=== PATIENT | male | born 1965 | race Caucasian/White ===

== ENCOUNTER 2017-10-20 10:24 | Inpatient (IN) | payer MEDICAID, SELFPAY ==
[2017-10-20] VITALS (46 sets, daily range): BP systolic 104–149; BP diastolic 63–106; PULSE 61–105; RESP 12–30; TEMP 35.3–37.7; O2SAT 90–96
[2017-10-20 10:55] LABS: Bilirubin Negative (Negative); Blood Trace-intact (Negative); Clarity Clear; Glucose 500 mg/dL (Negative); Ketones 15 mg/dL (Negative); Leukocyte Esterase Negative (Negative); Nitrite Negative (Negative); Urobilinogen 0.2 EU/dL (Up TO 0.2)
[2017-10-20 11:06] LABS: Bacteria Negative HPF (Negative); C & S Indicated? No; Casts Negative LPF (Negative); Crystals Negative HPF (Negative); Epithelial Cells Negative HPF (Negative); Mucus Negative (Negative); RBC 0-2 (0-2); WBC Negative HPF (0-5)
[2017-10-20] MEDS: Normal Saline 1,000 ML 150 ML IV (11:21)
--- NOTE | 2017-10-20 11:25 | ED.GENADUL ---
Disposition <Rohan Liao - Last Filed: 10/20/17 11:28> <Kathrin Velazquez - Last Filed: 10/20/17 19:04> Clinical Impression: Diabetes, Hyponatremia, Community acquired pneumonia, Thrush Disposition: [facility] INPATIENT Condition: Serious Medical Decision Making - Lab Data Laboratory Tests 10/20/17 10:45 Urine Color Yellow Urine Clarity Clear Urine pH 6.0 Ur Specific Dickens 1.010 Urine Protein Negative Urine Ketones 15 H Urine Blood Trace-intact H Urine Nitrite Negative Urine Bilirubin Negative Urine Urobilinogen 0.2 Ur Leukocyte Esterase Negative Urine RBC 0-2 Urine WBC Negative Ur Epithelial Cells Negative Urine Crystals Negative Urine Bacteria Negative Urine Casts Negative Urine Mucus Negative Ur Culture Indicated? No Urine Glucose 500 H - EKG Data -: EKG Interpreted by Mo EKG shows normal: sinus rhythm, axis, intervals, QRS complexes, ST-T waves 10/20/17 11:28 Time 10: 38 Rate 90, sinus rhythm, no ST elevations or depressions, no T-wave inversions. No Q waves. Normal EKG. <Rohan Liao - Last Filed: 10/20/17 11:28> - Lab Data Laboratory Tests 10/20/17 10:45 Urine Color Yellow Urine Clarity Clear Urine pH 6.0 Ur Specific Dickens 1.010 Urine Protein Negative Urine Ketones 15 H Urine Blood Trace-intact H Urine Nitrite Negative Urine Bilirubin Negative Urine Urobilinogen 0.2 Ur Leukocyte Esterase Negative Urine RBC 0-2 Urine WBC Negative Ur Epithelial Cells Negative Urine Crystals Negative Urine Bacteria Negative Urine Casts Negative Urine Mucus Negative Ur Culture Indicated? No Urine Glucose 500 H Laboratory Tests 10/20/17 10/20/17 10/20/17 10:45 12:03 12:03 WBC 19.89 H RBC 4.26 L Hgb 12.7 L Hct 37.3 L MCV 87.6 MCH 29.8 MCHC 34.0 RDW 12.7 Plt Count 338 MPV 10.5 Immature Gran % See Differential Neutrophils % 86.0 Lymphocytes % 8.0 Monocytes % 3.0 Eosinophils % 0.0 Basophils % 0.0 Absolute Neutrophils 17.30 H Band Neutrophils 1.0 Absolute Lymphocytes 1.79 Absolute Monocytes 0.60 Absolute Eosinophils 0.00 Absolute Basophils 0.00 Metamyelocytes 1.0 Differential Comment Manual differential Atypical Lymphocytes 1 RBC Morphology See below Polychromasia Present D-Dimer Sodium 124 L* Potassium 4.8 Chloride 90 L Carbon Dioxide 27.4 Anion Gap 6.6 BUN 22 H Creatinine 0.97 Estimated GFR/1.73 m2 >= 60.00 Glucose 520 H* Lactate Calcium 9.1 Magnesium 2.0 Total Bilirubin 0.4 AST 29 ALT 20 Alkaline Phosphatase 124 H Troponin I < 0.02 NT-Pro-B Natriuret Pep Total Protein 7.0 Albumin 1.7 L Lipase 118 Urine Color Yellow Urine Clarity Clear Urine pH 6.0 Ur Specific Dickens 1.010 Urine Protein Negative Urine Ketones 15 H Urine Blood Trace-intact H Urine Nitrite Negative Urine Bilirubin Negative Urine Urobilinogen 0.2 Ur Leukocyte Esterase Negative Urine RBC 0-2 Urine WBC Negative Ur Epithelial Cells Negative Urine Crystals Negative Urine Bacteria Negative Urine Casts Negative Urine Mucus Negative Ur Culture Indicated? No Urine Glucose 500 H 10/20/17 10/20/17 10/20/17 12:03 12:03 12:03 WBC RBC Hgb Hct MCV MCH MCHC RDW Plt Count MPV Immature Gran % Neutrophils % Lymphocytes % Monocytes % Eosinophils % Basophils % Absolute Neutrophils Band Neutrophils Absolute Lymphocytes Absolute Monocytes Absolute Eosinophils Absolute Basophils Metamyelocytes Differential Comment Atypical Lymphocytes RBC Morphology Polychromasia D-Dimer 1000 H Sodium Potassium Chloride Carbon Dioxide Anion Gap BUN Creatinine Estimated GFR/1.73 m2 Glucose Lactate 2.1 H Calcium Magnesium Total Bilirubin AST ALT Alkaline Phosphatase Troponin I NT-Pro-B Natriuret Pep 241 Total Protein Albumin Lipase Urine Color Urine Clarity Urine pH Ur Specific Dickens Urine Protein Urine Ketones Urine Blood Urine Nitrite Urine Bilirubin Urine Urobilinogen Ur Leukocyte Esterase Urine RBC Urine WBC Ur Epithelial Cells Urine Crystals Urine Bacteria Urine Casts Urine Mucus Ur Culture Indicated? Urine Glucose Results reviewed for labs ordered during visit: Yes - Medical Decision Making Patient presents today with a multitude of complaints. On exam, he is noted to have intraoral thrush. Patient and his had not noted this. He denies any history of HIV. Patient does have history of hepatitis C. Reports that he has had cough and increased shortness of breath. Is also endorsing right-sided chest pain. Chest pain is not reproducible on exam. He does have crackles in the right lower lobe. I am concerned for possible pneumonia. Will obtain chest x-ray. Patient's exam is also notable for bilateral lower extremity edema. Patient has been using cocaine recently. States that he is using clean needles that my dealer gives me and I unwrap myself. Patient reports that he has been febrile for the last week plus. He is currently afebrile. Noted to be slightly tachycardic with a heart rate of 92. Appears nontoxic. Does appear slightly anxious. Given the chest pain, IV drug use and concern for possible cardiac source such as endocarditis. The patient's intraoral thrush, I will obtain HIV status and include a CD4 count. Will obtain baseline labs to include CBC, CMP, troponin, BNP. Will hydrate the patient but I would like to do this slowly as I am concerned, given the crackles and bilateral lower extremity edema, that he may have developed CHF as well and do not want to fluid overload patient. EKG was reviewed by Dr. Liao. Advise no acute abnormalities, no findings of ischemia. Laboratory results are somewhat delayed. With the patient being a history of IV drug user, they had difficulty drawing tubes. We were contacted by lab with critical value of glucose of 520. Sodium is 124. BUN is slightly elevated at 22. Kidney function otherwise within normal limits. AST and ALT are within normal limits. I did review these and they have been historically within normal limits. Chest x-ray reviewed by myself as well as the radiologist, noted a right lower lobe infiltrate. Advised repeat chest x-ray in 1 month to ensure its clearance after treatment. CBC concerning for a white cell count of 19.89, neutrophil of 17. Platelets are normal. D-dimer is elevated at thousand. Urinalysis significant for 500 glucose and 15 ketones. BNP is normal, we will increase the patient's fluid rates and bolus him at this time. Potassium is 4.8. Patient be given 15 units subcu heparin. The elevated d-dimer, we will obtain CT. I feel that this will also better evaluate the infiltrate in the right lower lobe as there is concern this being possibly fungal or atypical with the patient's history. Contacted by radiologist regarding CT. Advise no acute pulmonary embolism is noted. Extensive infiltrate is known the right lower lobe, again he advises repeat imaging. Advised he cannot rule out mass secondary to this large infiltrate. He did advise it is limited to one lobe. No findings to suggest a fungal source. Will obtain sputum culture Patient had a bowel movement while here, this is collected by nursing staff. Stool is noted to be liquidy and light-colored. I will send this for stool testing. Patient begun on azithromycin and Rocephin. Patient given nystatin for intraoral thrush. Consulted with hospitalist, Dr. bowman. We discussed the patient's history, exam findings and diagnoses. We discussed patient's laboratory evaluations. Patient diagnosed with pneumonia, rash, new onset diabetes, hyponatremia. He agrees to admission. I discussed this plan with the patient was in agreement. He asked that I placed holding orders, plans to evaluate the patient in the department. <Kathrin Velazquez - Last Filed: 10/20/17 19:04> History of Present Illness <Rohan Liao - Last Filed: 10/20/17 11:28> - General Source: patient, family, RN notes reviewed Mode of arrival: ambulatory Limitations: no limitations - History of Present Illness Initial comments: Patient is a 52-year-old male, accompanied by his , with a multitude of complaints. Patient has history of hepatitis C and hypertension. Patient is an active intravenous drug user. Last used a few days ago. Has been injecting cocaine. Reports that for the past 8-10days he has been feeling quite poorly. He endorses malaise, right-sided pleuritic chest pain, fevers, foul-smelling urine, yellow and foul-smelling stools, bilateral lower extremity swelling. Patient reports that his been feeling toxic and feels that his breath, urine and stool are toxic smelling. Patient reports he has chronic shortness of breath associated with COPD diagnosis but this is also been increased. Feel that he has been having noisy breathing. Patient reports that he is being evaluated by his primary care for concern for [place], has not his sleep study. States that he has had low-grade intermittent headache, none currently. Has been having exertional fatigue is primarily laying low. is concerned that he has not been acting like himself. She associates this with his recent relapse to drug use. States that he stop daily use approximately 2 weeks ago. Prior to that, he was injecting cocaine 2-3 times daily the 2-3 months prior to that. reports that he has been active with the [facility] historically and that he typically does very well when working with them however, patient has not wanted to be part of the program in some time. <Kathrin Velazquez - Last Filed: 10/20/17 19:04> - General Chief complaint: Fever Stated complaint: SWOLLEN FEET,TOXIC TASTE,DISORIENTED Time Seen by Provider: 10/20/17 10:50 - Related Data Albuterol [Ventolin Hfa] 2 puff IH Q2H PRN PRN #1 inh 12/04/16 Buprenorphine HCl/Naloxone HCl [Suboxone 4 mg-1 mg Sl Film] 1 each PO DAILY 10/20/17 Losartan [Cozaar] 100 mg PO QAM 10/20/17 Allergies Allergy/AdvReac Type Severity Reaction Status Date / Time Penicillins Allergy Severe Vomiting Unverified 10/20/17 10:39 hydrocodone AdvReac Intermediate vomiting Unverified 10/20/17 10:39 Review of Systems Constitutional: see HPI, chills, fever, malaise, weakness (Generalized) Eyes: denies: eye discharge, vision change ENT: as per HPI (Foul-smelling breath). denies: ear pain, throat pain, dental pain, congestion Respiratory: see HPI, cough, shortness of breath Cardiovascular: as per HPI, chest pain, dyspnea on exertion. denies: palpitations Gastrointestinal: as per HPI, nausea, diarrhea (Soft stools). denies: abdominal pain, vomiting Genitourinary: as per HPI. denies: urgency, dysuria, frequency Musculoskeletal: denies: back pain Skin: denies: rash, lesions Neurological: as per HPI <Kathrin Velazquez - Last Filed: 10/20/17 19:04> Past Medical History - Past Medical History Medical history: GERD, hypertension Hepatitis C Surgical history: other (Lumbar discectomy) - Social History Alcohol use: occasionally Drug use: marijuana Living Situation: lives with family <Kathrin Velazquez - Last Filed: 10/20/17 19:04> General Exam - General Limitations: no limitations General appearance: alert, in no apparent distress - Head Head exam: Present: atraumatic - Eye Eye exam: Present: normal apperance, PERRL, EOMI. Absent: scleral icterus, conjunctival injection - ENT ENT exam: Present: mucous membranes dry. Absent: normal orophraynx ([place] notable for thrush both on the tongue and on the roof the mouth) - Neck Neck exam: Present: normal inspection. Absent: tenderness, lymphadenopathy - Respiratory Respiratory exam: Present: rales (Patient is crackles in the right lower lobe). Absent: normal lung sounds bilaterally, respiratory distress, wheezes, chest wall tenderness, accessory muscle use - Cardiovascular Cardiovascular Exam: Present: regular rate, normal rhythm, normal heart sounds. Absent: systolic murmur, diastolic murmur - GI/Abdominal GI/Abdominal exam: Present: soft, distended, normal bowel sounds. Absent: tenderness, guarding, rebound, rigid, organomegaly, mass - Rectal Rectal exam: Present: deferred - Extremities Exam Extremities exam: Present: pedal edema (2+ bilateral pedal edema, edema extends into the feet). Absent: normal inspection, tenderness, calf tenderness - Back Exam Back exam: Present: normal inspection. Absent: CVA tenderness (R), CVA tenderness (L) - Neurological Exam Neurological exam: Present: alert - Psychiatric Psychiatric exam: Present: depressed, flat affect - Skin Skin exam: Present: warm, dry, normal color <PibbhupinderKathrin - Last Filed: 10/20/17 19:04> Course Vital Signs - 24 hr 10/20/17 10/20/17 10/20/17 10:30 10:31 10:33 Temperature 36.7 C Pulse 92 H 92 H Respiratory 16 19 Rate Blood Pressure 121/67 121/67 Pulse Oximetry 95 95 95 10/20/17 10/20/17 10/20/17 10:40 10:45 10:50 Temperature Pulse 92 H Respiratory 28 H 17 17 Rate Blood Pressure 128/70 Pulse Oximetry 93 L 93 L 10/20/17 10/20/17 10/20/17 11:00 11:01 11:10 Temperature Pulse 93 H Respiratory 21 22 Rate Blood Pressure 128/80 Pulse Oximetry 93 L 95 94 L 10/20/17 10/20/17 11:16 11:20 Temperature Pulse 96 H Respiratory 23 30 H Rate Blood Pressure 132/74 Pulse Oximetry 93 L 93 L <Rohan Liao R - Last Filed: 10/20/17 11:28> Vital Signs - 24 hr 10/20/17 10:33 Temperature 36.7 C Pulse 92 H Respiratory 19 Rate Blood Pressure 121/67 Pulse Oximetry 95 <MarcusKathrin - Last Filed: 10/20/17 19:04>
[2017-10-20 12:13] LABS: Lactate-non-spesis 2.1 mmol/L (0.6-1.4)
[2017-10-20 12:15] LABS: HCT 37.3 % (40.0-50.0); HGB 12.7 g/dL (13.5-17.5); Mean Corpuscular Hemoglobin 29.8 pg (27.0-33.0); Mean Corpuscular Volume 87.6 fL (80-95); Mean Platelet Volume 10.5 fL (8.0-11.0); Platelet Count 338 x1000/uL (130-400); RBC 4.26 m/cumm (4.50-6.00); RBC Distribution Width 12.7 % (11.8-14.1); White Blood Cell Count 19.89 k/cumm (4.4-10.8)
--- NOTE | 2017-10-20 12:20 | DI.REPORT_ITS ---
SYMPTOMS/DIAGNOSIS: SHORTNESS OF BREATH, CHEST PAIN PA AND LATERAL CHEST: Comparison is 01/09/17. The heart size and pulmonary vasculature are within normal limits. There is an infiltrate seen in the right lower lobe with more focal consolidation seen in the right lower lobe medially. The lungs are otherwise clear. No effusions or pneumothoraces are identified. The bones appear intact. IMPRESSION: Right lower lobe opacity suspicious for pneumonia. A follow up chest x-ray is recommended after treatment to document complete resolution of the infiltrate.
[2017-10-20 12:31] LABS: ALT 20 U/L (12-78); AST 29 U/L (15-37); Albumin 1.7 g/dL (3.4-5.0); Alkaline Phosphatase 124 U/L (46-116); Anion Gap 6.6 mmol/L (3-11); BUN 22 mg/dL (7-18); Bilirubin, Total 0.4 mg/dL (0.2-1.0); CO2 27.4 mmol/L (21.0-32.0); CREATININE 0.97 mg/dL (0.70-1.30); Calcium 9.1 mg/dL (8.5-10.1); Chloride 90 mmol/L (98-107); Lipase 118 U/L (73-393); Potassium 4.8 mmol/L (3.5-5.1)
[2017-10-20 12:35] LABS: Troponin I < 0.02 ng/mL (0.00-0.06)
[2017-10-20 12:36] LABS: Glucose 520 mg/dL (70-100)
[2017-10-20 12:37] LABS: Sodium 124 mmol/L (136-145)
[2017-10-20 12:38] LABS: NT-proBNP 241 pg/mL
[2017-10-20 12:46] LABS: D-Dimer 1000 ng/mlFEU (<500)
[2017-10-20 12:47] LABS: Absolute Lymphocyte Count 1.79 k/cumm (1.2-3.4); Atypical Lymphocytes % 1; Diff Comment Manual Differential
[2017-10-20 12:48] LABS: Polychromasia Present
[2017-10-20] MEDS: Normal Saline 1,000 ML 1000 ML IV ×2 (12:48→13:55)
--- NOTE | 2017-10-20 12:53 | DI.RPTCT_ITS ---
SYMPTOMS/DIAGNOSIS: ELEVATED D-DIMER, SHORTNESS OF BREATH, SWOLLEN FEET, TOXIC TASTE CT SCAN OF THE CHEST: CT angiography was performed with multi slice acquisition and multi planar and 3D reconstruction. CT scan of the chest was performed according to the pulmonary embolus protocol. There is no evidence of a pulmonary embolus. The thoracic aorta is of normal caliber. No evidence of aneurysm or dissection is seen. The heart size is within normal limits. No significant pericardial effusion is present. No findings to suggest right ventricular dysfunction are present. There are airspace opacities involving the right lung with areas of consolidation noted, particularly in the lower lobe and medially. There is loss of volume of the right lower lobe noted. There also appears to be a small fluid collection along the posterior and lateral wall, which may be loculated. It measures 1.4 cm in thickness. The lungs are otherwise clear. No pneumothorax is identified. No evidence of a left pleural effusion is seen. The bones appear grossly unremarkable. The upper abdominal images show calcifications in the liver and spleen consistent with prior granulomatous disease. There is a cyst in the right lobe of the liver. This was present on an ultrasound of the abdomen from 02/09/15. There are mildly enlarged lymph nodes in the mediastinum, which may be reactive. Degenerative changes are seen in the spine. IMPRESSION: 1. Airspace opacity in the right lower lobe with areas of consolidation and volume loss. The findings are suspicious for an infectious or inflammatory process. A follow-up CT scan of the chest is recommended in this patient to document complete resolution of the infiltrate. 2. Small left pleural effusion, which may in part be loculated. 3. No evidence of a pulmonary embolus, thoracic aorta, dissection or aneurysm. The findings were discussed with Kathrin Velazquez of the Emergency Department on the date of the examination.
[2017-10-20] MEDS: Insulin REGULAR-Human 100 UNITS/ML UNIT 15 UNITS SC (13:02)
[2017-10-20] MEDS: Omnipaque 350 MG/ML 100 ML BTL IJ (13:57)
--- NOTE | 2017-10-20 14:09 | PDOC.ERCMPRO ---
Care Management Progress Note 10/20-Met with Mio's while Mio was in DI. Arline states that Mio has been shooting up cocaine, drinking, and flirting with other woman. She states she is really tired of it. Throughout our conversation she cried and was visibly upset. Here in the ED he is found to be a new diabetic. CHIKI Pinon states that patient will need to be admitted. While here, Mio will need to be seen by the nutrition educator and have some outpatient diabetic education appointments scheduled. At this time, Mio is still being seen in the ED and results are pending. Discussed the above with Wendy JACQUES, Inpatient Care Management.
--- NOTE | 2017-10-20 14:12 | CMPROGNOTE_ITS ---
Care Management Progress Note 10/20-Met with Mio's while Mio was in DI. Arline states that Mio has been shooting up cocaine, drinking, and flirting with other woman. She states she is really tired of it. Throughout our conversation she cried and was visibly upset. Here in the ED he is found to be a new diabetic. CHIKI iPnon states that patient will need to be admitted. While here, Mio will need to be seen by the winder operator and have some outpatient diabetic education appointments scheduled. At this time, Mio is still being seen in the ED and results are pending. Discussed the above with Wendy JACQUES, Inpatient Care Management.
[2017-10-20] MEDS: AZITHROMYCIN 500 MG in Normal Saline 250 ML 250 MG IVPB (14:27)
[2017-10-20] MEDS: Lactated Ringers 1,000 ML 150 ML IV ×2 (14:43→22:58)
--- NOTE | 2017-10-20 18:06 | PDOC.HP_ITS ---
Date of Service: 10/20/17 Time of Service: 18:01 Assessment/Plan - Assessment/Plan (1) Community acquired pneumonia Assessment: Symptoms, chest XR, and imaging all confirm lobar pneumonia in RLL. Patient has been started on ceftriaxone and azithromycin. Has documented PCN allergy but tolerting this well so will continue. I agree with HIV screen and legionella antigen given history and presentation with severe lobar pneumonia. Blood and sputum cultures also pending Given diffuse wheezing, history including smoking, will also treat with steroids and bronchodilators (2) Diabetes mellitus Assessment: New diagnosis DM based on profound hyperglycemia and symptoms. I will start with 0.2U/kg of basal insulin and low dose sliding scale, monitor glucose. Add c-peptide to confirm likely type 2, could also get anti-ROGERIO Ab if questionable, but c-peptide more urgent. He presented dehydrated, but not c/w DKA or HONK. His mental status has normalized with hydration. DSME consult for teaching. Will consider oral medication upon discharge. A1c, lipids, and microalbumin ordered with morning labs. (3) Opioid dependence on agonist therapy Assessment: Has been stable per history, will continue his relatively low dose of buprenorhpine/naloxone for maintenance. (4) Hypertension Assessment: Continue losartan 100mg, which is also good for renal protection with DM. Consider adding back diuretic if BPs are high. New edema raises concern for CHF but imagine and BNaP not c/w CHF. Troponin and EKG not c/w ACS (5) Smoker Assessment: Contemplative, has stopped this week. Will treat with patch. LMWH for DVT prophylaxis Pt is stable on medical floor, FULL CODE History of Present Illness - History of Present Illness Chief Complaint: sob, malaise History of Present Illness: 52 yo M with h/o opioid dependance on Suboxone and hypertension who has been have progressive fatigue, SOB, cough, and urinary frequency over the past 2+ weeks. He states he hasn't quite been himself for the past 2-3 month, feeling run down and missing more work. For the the past 2 weeks has had more cough with right sided pleuritic pain. Pain sharp, radiates laterally along ribs. He has felt feverish, up to 101 at home in the past few days. Cough productive at times, with SOB that does respond to his albuterol inhaler. He has also noted persistent hiccups. Finally he came in because his noticed this morning that he was talking in a way that didn't make sense in the conversation. He feels like he has been out of it. SHx: lives with Rekha and 10 yo son in [place], has older daughter as well. 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 1ppd smoker for many years, cut back to 1/2 PPD this year, no smoking x 1 week Former heavy drinker, no EtOH in months. Remove IVDU, no recent street drug use. PMH: HTN GERD Smoker Chronic back pain Opioid dependance on suboxone Chronic hepatitis C PSHX: Back surgery 1991 All: Pencillin hydrocodone lisinopril, malaise MEDS: losartan 100mg po daily Proair albuterol inhaler prn Suboxone 4mg/1mg film SL daily FHx: Mother has DM Father of heart disease in 50s - Past Medical History Cardiac: HTN Pulmonary: Bronchitis (PCP suspects COPD, but PFTs haven't been done yet) Gastrointestinal: GERD Hepatobiliary: Hep A/B/C (Heptatitis C). denies: Cirrhosis Psych: Addictions (opioids, smoking. h/o alcohol abuse) Review of Systems - Review of Systems Constitutional: Fever, Chills, Sweats, Malaise Eyes: denies: Pain, Vision Change, Conjunctivae Inflammation ENT: Throat Pain. denies: Ear Pain, Nose Discharge, Nose Congestion, Mouth Pain Respiratory: Cough, Shortness of Breath, Pleuritic Pain. denies: Hemoptysis Cardiovascular: Edema, Light Headedness. denies: Palpitations Gastrointestinal: Diarrhea (watery 4-5 x day this week). denies: Nausea, Vomiting, Abdominal Pain, Constipation, Melena, Hematochezia Genitourinary: Frequency. denies: Dysuria, Hematuria Musculoskeletal: denies: Neck Pain, Back Pain Skin: denies: Rash, Lesions Neurological: Confusion. denies: Weakness, Numbness (but some tingling in toes homa), Change in Speech, Seizures - Medications/Allergies Allergies/Adverse Reactions: Allergies Allergy/AdvReac Type Severity Reaction Status Date / Time Penicillins Allergy Severe Vomiting Unverified 10/20/17 10:39 hydrocodone AdvReac Intermediate vomiting Unverified 10/20/17 10:39 Medications: Current Medications Ringer's Solution () 1,000 mls @ 150 mls/hr IV INFUSION [facility] Last Admin: 10/20/17 14:43 Dose: 150 mls/hr IV Miscellaneous Supplies () 1 each IV DIRECTED [facility] Sodium Chloride (Saline Flush 10 Ml Syringe) 0 ml IVP PRN PRN Objective - Exam Vitals and I&O: Vital Signs Temp 37.7 C H 10/20/17 16:00 Pulse 98 H 10/20/17 16:00 Resp 18 10/20/17 16:00 BP 118/64 10/20/17 16:00 Pulse Ox 90 L 10/20/17 16:00 Intake & Output 10/19/17 10/20/17 10/20/17 23:59 11:59 23:59 Intake Total 1680 Output Total 400 1250 Balance -400 430 Weight 100.7 kg Intake: IV 1000 Oral 680 Output: Urine 400 1250 General: Alert, Oriented x3, Cooperative, Mild distress HEENT: Atraumatic, PERRLA, EOMI, Mucous membr. moist/pink (red patch with white exudate throat) Neck: Supple. denies: JVD, Thyromegaly, LAD Lungs: denies: Clear to auscultation (diffuse expiratory rhonchi, right sided wet sounding rales in lower and mid lung valencia, prolonged expiration) Cardiovascular: Regular rate, Normal S1, Normal S2. denies: Murmurs, Gallops Abdomen: Normal bowel sounds, Soft. denies: Tenderness, Masses Extremities: Edema (1+ to shins homa). denies: Clubbing, Cyanosis Skin: denies: Rashes, Breakdown Neurological: Normal gait, Normal speech, Strength at 5/5 X4 ext, Normal tone, Sensation intact, Cranial nerves 3-12 NL Psych/Mental Status: Mental status NL, Mood NL Results - Laboratory Data Result Diagrams: 10/20/17 12:03 10/20/17 12:03 Laboratory Results: Laboratory Tests 10/20/17 10/20/17 10/20/17 10:45 12:03 12:03 WBC 19.89 H RBC 4.26 L Hgb 12.7 L Hct 37.3 L MCV 87.6 MCH 29.8 MCHC 34.0 RDW 12.7 Plt Count 338 MPV 10.5 Immature Gran % See Differential Neutrophils % 86.0 Lymphocytes % 8.0 Monocytes % 3.0 Eosinophils % 0.0 Basophils % 0.0 Absolute Neutrophils 17.30 H Band Neutrophils 1.0 Absolute Lymphocytes 1.79 Absolute Monocytes 0.60 Absolute Eosinophils 0.00 Absolute Basophils 0.00 Metamyelocytes 1.0 Differential Comment Manual differential Atypical Lymphocytes 1 RBC Morphology See below Polychromasia Present D-Dimer Sodium 124 L* Potassium 4.8 Chloride 90 L Carbon Dioxide 27.4 Anion Gap 6.6 BUN 22 H Creatinine 0.97 Estimated GFR/1.73 m2 >= 60.00 Glucose 520 H* Lactate Calcium 9.1 Magnesium 2.0 Total Bilirubin 0.4 AST 29 ALT 20 Alkaline Phosphatase 124 H Troponin I < 0.02 NT-Pro-B Natriuret Pep Total Protein 7.0 Albumin 1.7 L Lipase 118 Urine Color Yellow Urine Clarity Clear Urine pH 6.0 Ur Specific [place] 1.010 Urine Protein Negative Urine Ketones 15 H Urine Blood Trace-intact H Urine Nitrite Negative Urine Bilirubin Negative Urine Urobilinogen 0.2 Ur Leukocyte Esterase Negative Urine RBC 0-2 Urine WBC Negative Ur Epithelial Cells Negative Urine Crystals Negative Urine Bacteria Negative Urine Casts Negative Urine Mucus Negative Ur Culture Indicated? No Urine Glucose 500 H 10/20/17 10/20/17 10/20/17 12:03 12:03 12:03 WBC RBC Hgb Hct MCV MCH MCHC RDW Plt Count MPV Immature Gran % Neutrophils % Lymphocytes % Monocytes % Eosinophils % Basophils % Absolute Neutrophils Band Neutrophils Absolute Lymphocytes Absolute Monocytes Absolute Eosinophils Absolute Basophils Metamyelocytes Differential Comment Atypical Lymphocytes RBC Morphology Polychromasia D-Dimer 1000 H Sodium Potassium Chloride Carbon Dioxide Anion Gap BUN Creatinine Estimated GFR/1.73 m2 Glucose Lactate 2.1 H Calcium Magnesium Total Bilirubin AST ALT Alkaline Phosphatase Troponin I NT-Pro-B Natriuret Pep 241 Total Protein Albumin Lipase Urine Color Urine Clarity Urine pH Ur Specific [place] Urine Protein Urine Ketones Urine Blood Urine Nitrite Urine Bilirubin Urine Urobilinogen Ur Leukocyte Esterase Urine RBC Urine WBC Ur Epithelial Cells Urine Crystals Urine Bacteria Urine Casts Urine Mucus Ur Culture Indicated? Urine Glucose - Imaging Studies Imaging Studies: CXR: RLL infiltrate CT Chest: No PE. RLL infiltrate EKG: NSR. nl intervals. no ischemic ST-T changes
[2017-10-20] MEDS: Enoxaparin 40 MG/0.4 ML SYR SC (18:30)
[2017-10-20] MEDS: predniSONE 20 MG TAB 50 MG PO (18:45)
[2017-10-20] MEDS: Insulin Aspart 300 UNITS/3 ML PEN SC (19:34)
[2017-10-20] MEDS: Nystatin 500000 UNITS/5 ML SUSP 5ML CUP PO (20:07)
[2017-10-20] MEDS: Insulin Glargine 300 UNITS/3 ML PEN 20 UNITS SC (21:18)
[2017-10-21] MEDS: Lactated Ringers 1,000 ML 150 ML IV (05:15)
[2017-10-21 07:30] VITALS: BP 121/78; PULSE 88; RESP 18; TEMP 35.9; O2SAT 96
[2017-10-21 07:40] VITALS: O2SAT 94
[2017-10-21] MEDS: Albuterol/Ipratropium 3 ML UPD VIAL UPD ×2 (07:40→16:28)
[2017-10-21] MEDS: Normal Saline Flush 10 ML SYR IVP ×2 (07:50→12:30)
[2017-10-21] MEDS: Nystatin 500000 UNITS/5 ML SUSP 5ML CUP PO ×3 (07:50→21:31)
[2017-10-21] MEDS: Insulin Aspart 300 UNITS/3 ML PEN SC ×3 (07:50→17:11)
[2017-10-21] MEDS: Azithromycin 250 MG TAB PO (07:50)
[2017-10-21] MEDS: predniSONE 20 MG TAB 50 MG PO (07:50)
[2017-10-21] MEDS: Losartan 50 MG TAB 100 MG PO (08:30)
[2017-10-21 12:29] LABS: HIV-1/2 Ag & Ab Screen Negative (NEGAT)
[2017-10-21 12:35] VITALS: BP 115/71; PULSE 87; RESP 18; TEMP 35.9; O2SAT 95
[2017-10-21 15:10] VITALS: BP 127/76; PULSE 88; RESP 16; TEMP 36.6; O2SAT 98
[2017-10-21 15:48] LABS: Hemoglobin A1C 11.9 % (4.5-6.2)
[2017-10-21 15:49] LABS: BUN 22 mg/dL (7-18); CREATININE 0.85 mg/dL (0.70-1.30); Calcium 8.5 mg/dL (8.5-10.1); Cholesterol 85 mg/dL (50-200); Glucose 424 mg/dL (70-100); Triglyceride 188 mg/dL (30-150)
[2017-10-21 15:50] LABS: Anion Gap 8.3 mmol/L (3-11); CO2 25.7 mmol/L (21.0-32.0); Chloride 96 mmol/L (98-107); HDL Cholesterol 9 mg/dL (40-60); LDL CHOLESTEROL 56 mg/dL (<100); Potassium 4.4 mmol/L (3.5-5.1); RBC 4.37 m/cumm (4.50-6.00); Sodium 130 mmol/L (136-145); TSH (W/Ref FT4) 0.51 uIU/mL (0.358-3.74); White Blood Cell Count 14.26 k/cumm (4.4-10.8)
[2017-10-21 15:51] LABS: HCT 37.9 % (40.0-50.0); HGB 12.8 g/dL (13.5-17.5); Mean Corp. HGB Concentration 33.8 g/dL (32.0-36.0); Mean Corpuscular Hemoglobin 29.3 pg (27.0-33.0); Mean Corpuscular Volume 86.7 fL (80-95); Mean Platelet Volume 10.7 fL (8.0-11.0); Platelet Count 408 x1000/uL (130-400); RBC Distribution Width 12.8 % (11.8-14.1)
[2017-10-21 15:52] LABS: Absolute Basophil Count 0.04 k/cumm (0.0-0.2); Absolute Eosinophil Count 0.01 k/cumm (0.0-0.7); Absolute Monocyte Count 0.46 k/cumm (0.11-0.7); Absolute Neutrophil Count 12.91 k/cumm (1.2-6.7); Basophils % 0.3; Eosinophils % 0.1; Immature Grans % 1.7; Monocytes % 3.2; Neutrophils % 90.5
[2017-10-21 15:53] LABS: Diff Comment Agrees w/ Instrument; Lymphocytes % 4.2
[2017-10-21 16:24] VITALS: BP 122/72; PULSE 68
[2017-10-21] MEDS: Enoxaparin 40 MG/0.4 ML SYR SC (17:09)
[2017-10-21] MEDS: guaiFENesin/D-METHORPHAN HB 5 ML CUP 10 ML PO (20:42)
[2017-10-21] MEDS: Acetaminophen 325 MG TAB PO (20:43)
[2017-10-21] MEDS: Insulin Glargine 300 UNITS/3 ML PEN 20 UNITS SC (20:44)
[2017-10-21 21:31] LABS: Glucose 467 mg/dL (70-100)
[2017-10-21 23:20] VITALS: BP 103/72; PULSE 86; RESP 20; TEMP 36.4; O2SAT 94
[2017-10-22 07:20] VITALS: BP 124/85; PULSE 79; RESP 18; TEMP 36.5; O2SAT 97
[2017-10-22 07:21] LABS: Abs Immature Grans 0.19 k/cumm (0.0-0.09); Absolute Basophil Count 0.04 k/cumm (0.0-0.2); Absolute Eosinophil Count 0.03 k/cumm (0.0-0.7); Basophils % 0.3; Eosinophils % 0.2; HCT 38.1 % (40.0-50.0); HGB 13.3 g/dL (13.5-17.5); Immature Grans % 1.3; Lymphocytes % 6.9; Mean Corp. HGB Concentration 34.9 g/dL (32.0-36.0); Mean Corpuscular Hemoglobin 30.4 pg (27.0-33.0); Mean Corpuscular Volume 87.2 fL (80-95); Mean Platelet Volume 10.4 fL (8.0-11.0); Monocytes % 3.9; Neutrophils % 87.4; Platelet Count 547 x1000/uL (130-400); RBC 4.37 m/cumm (4.50-6.00); RBC Distribution Width 12.7 % (11.8-14.1); White Blood Cell Count 14.45 k/cumm (4.4-10.8)
[2017-10-22 07:23] LABS: Anion Gap 7.9 mmol/L (3-11); BUN 22 mg/dL (7-18); CO2 26.1 mmol/L (21.0-32.0); CREATININE 0.72 mg/dL (0.70-1.30); Chloride 98 mmol/L (98-107); Glucose 397 mg/dL (70-100); Potassium 4.2 mmol/L (3.5-5.1); Sodium 132 mmol/L (136-145)
[2017-10-22 07:32] VITALS: PULSE 84; RESP 20; RESP 7; O2SAT 93
[2017-10-22] MEDS: Albuterol/Ipratropium 3 ML UPD VIAL UPD ×2 (07:32→16:12)
[2017-10-22 07:35] VITALS: O2SAT 96
[2017-10-22 07:38] LABS: Absolute Monocyte Count 0.56 k/cumm (0.11-0.7); Absolute Neutrophil Count 12.63 k/cumm (1.2-6.7)
[2017-10-22 08:03] LABS: Diff Comment Agrees w/ Instrument
[2017-10-22] MEDS: guaiFENesin/D-METHORPHAN HB 5 ML CUP 10 ML PO ×2 (08:08→16:10)
[2017-10-22] MEDS: Insulin Aspart 300 UNITS/3 ML PEN SC ×3 (08:09→17:06)
[2017-10-22] MEDS: Losartan 50 MG TAB 100 MG PO (08:09)
[2017-10-22] MEDS: Azithromycin 250 MG TAB PO (08:09)
[2017-10-22] MEDS: Nystatin 500000 UNITS/5 ML SUSP 5ML CUP PO ×3 (08:09→19:32)
--- NOTE | 2017-10-22 08:21 | PDOC.CMIN ---
- If Service Date Differs Date of service: 10/21/17 ([employer] Downtime - Late Entry) Care Management Initial Assess REASON FOR HOSPITALIZATION:: Pneumonia, Hyperglycemia PAST MEDICAL HISTORY/PAST SURGICAL HISTORY:: Medical: Opioid dependence and current agonist therapy, Hypertension, ETOH Abuse,Smoker, GERD, Chronic Hep C, Chronic back pain PREVIOUS FUNCTIONAL STATUS/SOCIAL/FAMILY SUPPORTS:: Lives with his , Rekha, and 10 y.o. son in [place]. 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 Has been sober and following his care plan with EMERY. CURRENT FUNCTIONAL STATUS:: Sitting up in his recliner enjoying breakfast. States he was very surprised to learn that he has diabetes and will take some time to come to terms with that fact. ADVANCE DIRECTIVES:: None on file Has patient been provided with information about the portal?: Yes Did the patient sign up for the portal?: No CODE STATUS:: Full Code INSURANCE COVERAGE / FINANCIAL ISSUES:: [place] Medicaid CURRENT HOME/COMMUNITY SERVICES/EQUIPMENT:: None at this time PRIMARY CARE PHYSICIAN:: [facility]: CHIKI Chavira POTENTIAL DISCHARGE NEEDS:: Diabetic Teaching including self administration of insulin if ordered. PATIENT/FAMILY EDUCATION NEEDS:: Self Management of new diagnosis of Diabetes ANTICIPATED BARRIERS TO DISCHARGE:: None identified TRANSPORTATION:: , Rekha, will transport by car. PLAN:: Return home with no home services needed when medically cleared for discharge. Readmission - Within the Past 30 Days Yes or No: N (Last episode of care was 07/07/17 ER visit for a painful boil.)
--- NOTE | 2017-10-22 08:52 | INITIAL_ITS ---
- If Service Date Differs Date of service: 10/21/17 ([employer] Downtime - Late Entry) Care Management Initial Assess REASON FOR HOSPITALIZATION:: Pneumonia, Hyperglycemia PAST MEDICAL HISTORY/PAST SURGICAL HISTORY:: Medical: Opioid dependence and current agonist therapy, Hypertension, ETOH Abuse,Smoker, GERD, Chronic Hep C, Chronic back pain PREVIOUS FUNCTIONAL STATUS/SOCIAL/FAMILY SUPPORTS:: Lives with his , Rekha, and 10 y.o. son in [place]. 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 Has been sober and following his care plan with EMERY. CURRENT FUNCTIONAL STATUS:: Sitting up in his recliner enjoying breakfast. States he was very surprised to learn that he has diabetes and will take some time to come to terms with that fact. ADVANCE DIRECTIVES:: None on file Has patient been provided with information about the portal?: Yes Did the patient sign up for the portal?: No CODE STATUS:: Full Code INSURANCE COVERAGE / FINANCIAL ISSUES:: [place] CURRENT HOME/COMMUNITY SERVICES/EQUIPMENT:: None at this time PRIMARY CARE PHYSICIAN:: [facility]: CHIKI Chavira POTENTIAL DISCHARGE NEEDS:: Diabetic Teaching including self administration of insulin if ordered. PATIENT/FAMILY EDUCATION NEEDS:: Self Management of new diagnosis of Diabetes ANTICIPATED BARRIERS TO DISCHARGE:: None identified TRANSPORTATION:: , Rekha, will transport by car. PLAN:: Return home with no home services needed when medically cleared for discharge. Readmission - Within the Past 30 Days Yes or No: N (Last episode of care was 07/07/17 ER visit for a painful boil.)
--- NOTE | 2017-10-22 08:52 | PDOC.CMPRO ---
Care Management Progress Note S/O: Mio was lying in bed and room had shade pulled down. Stated he did not sleep well last night and didn't feel like eating breakfast yet this morning. His breakfast tray was on the bedside stand untouched. Realizes he has a lot to learn about diabetes and how to take care of himself. Rekha will support and assist him at home. A: 52 y.o. male admitted for pneumonia and newly diagnosed with Diabetes. P: Provide Diabetic teaching and nutritional counseling. Anticipate discharge home with his Rekha, when medically cleared. No home service needs anticipated.
--- NOTE | 2017-10-22 10:21 | PHARADMIT ---
Admission Pharmacy Clinical Review PNEUMONIA Code Status Full Code Current Weight 100.7 kg Renally Cleared and Narrow Therapeutic Index Meds CRCL ~115ML/MIN QTc Value / Action Taken NA BP Control, Fever 124/85 AFEBRILE Electrolytes reviewed Na 132 DVT Prophylaxis ENOXAPARIN Opiate Usage / Scheduled Bowel Regimen Ordered NS Plt/SCr for Heparin / Enoxaparin 547/0.72 INR for Warfarin NS H/H stable, WBC/Bands 13.3/38.1 WBC 14.45 Antibiotic appropriateness AZITHROMYCIN PO/CEFTRIAXONE IV Cultures and Sensitivities BC NO GROWTH 24 HRS, SPUTUM CULTURE PENDING, CDIFF NEGATIVE Surgical ABX d/c within 24 hr NA DM control / Insulin Dosing NEW ONSET DIABETES, FS 360, A1C 11.9. GLARGINE INSULIN AND ASPART SS STARTED Heart Failure (Check EF%) (COLIN's, B-Block, Diuretics) NA IV to PO Switch Home Meds Reviewed Home Meds Not Ordered ALL ORDERED Comments IV DRUG USER, ON SUBOXONE, SOME STOOL LABS PENDING
[2017-10-22] MEDS: Pantoprazole 40 MG TABCR PO (11:01)
[2017-10-22] MEDS: Acetaminophen 325 MG TAB PO ×2 (11:01→16:07)
[2017-10-22] MEDS: Baclofen 10 MG TAB PO ×2 (13:41→19:31)
--- NOTE | 2017-10-22 14:15 | W.PM.PROGNOT ---
Assessment and Plan (1) Community acquired pneumonia: Current visit: Yes Status: Acute Continues on azithromycin. His IV came out so we are stopping the ceftriaxone. His white count is stable at 14.45 thousand, no fevers, O2 sat is 93% on room air. His exam is consistent with improving pneumonia. (2) Diabetes mellitus: Current visit: Yes Status: Acute (3) Smoker: Current visit: No Status: Acute New onset diabetes. Hemoglobin A1c 11.9%. Blood sugars still above 300. Increase Lantus to 25 units at at bedtime, continue aspart at resistant scale. Begin nursing teaching on self medication and self monitoring. Continue diabetic education. (4) Intractable hiccups: Current visit: Yes Status: Acute He has had hiccups for greater than a month now. Thus far his workup for malignancy has been negative including a negative chest CT scan. We will start PPI therapy with Protonix 40 mg daily and add baclofen 10 mg every 8 hours as initial therapy for intractable hiccups. Subjective Interval history since last seen: He continues to have the hiccups. He also has been feeling woozy. His oral thrush is cleared up. He is very concerned about the swelling in his legs. He is dedicated to quitting smoking. He is very receptive to diabetic education. Exam Narrative Exam Narrative: No respiratory distress. No cough. Lung sounds are now clear on the right and left. Oropharynx looks clear. His lower extremities have 2+ edema bilaterally but are otherwise well perfused no open sores or lesions Objective Objective Clinical Data: Abnormal lab results 10/21/17 10/21/17 10/21/17 Range/Units 09:50 09:50 09:50 WBC 14.26 H (4.4-10.8) k/cumm RBC 4.37 L (4.50-6.00) m/cumm Hgb 12.8 L (13.5-17.5) g/dL Hct 37.9 L (40.0-50.0) % Plt Count 408 H (130-400) x1000/uL Absolute Neutrophils 12.91 H (1.2-6.7) k/cumm Absolute Lymphocytes 0.60 L (1.2-3.4) k/cumm Sodium 130 L (136-145) mmol/L Chloride 96 L (98-107) mmol/L BUN 22 H (7-18) mg/dL Glucose 424 H (70-100) mg/dL Hemoglobin A1c 11.9 H (4.5-6.2) % Triglycerides 188 H (30-150) mg/dL HDL Cholesterol 9 L (40-60) mg/dL 10/21/17 10/22/17 10/22/17 Range/Units 21:05 06:42 06:42 WBC 14.45 H (4.4-10.8) k/cumm RBC 4.37 L (4.50-6.00) m/cumm Hgb 13.3 L (13.5-17.5) g/dL Hct 38.1 L (40.0-50.0) % Plt Count 547 H (130-400) x1000/uL Absolute Neutrophils 12.63 H (1.2-6.7) k/cumm Absolute Lymphocytes 1.00 L (1.2-3.4) k/cumm Sodium 132 L (136-145) mmol/L Chloride (98-107) mmol/L BUN 22 H (7-18) mg/dL Glucose 467 H 397 H (70-100) mg/dL Hemoglobin A1c (4.5-6.2) % Triglycerides (30-150) mg/dL HDL Cholesterol (40-60) mg/dL Vital Signs Temp 36.5 C 10/22/17 07:20 Pulse 84 10/22/17 07:32 Resp 20 10/22/17 07:32 BP 124/85 10/22/17 07:20 Pulse Ox 96 10/22/17 07:35 Intake & Output 10/21/17 10/22/17 10/22/17 23:59 11:59 23:59 Intake Total 1030 / 1030 570 / 570 Output Total 400 / 400 300 / 300 Balance 630 / 630 270 / 270 Intake: IV 50 / 50 10 / 10 Oral 980 / 980 560 / 560 Output: Urine 400 / 400 300 / 300 Other: Urine Color Yellow Urine Appearance Clear Clear Comment pt has been voiding in the toilet and flushing reports voiding independently w/o difficulty Voiding Methods Toilet Urinal Laboratory Results WBC 14.45 k/cumm (4.4-10.8) H 10/22/17 06:42 RBC 4.37 m/cumm (4.50-6.00) L 10/22/17 06:42 Hgb 13.3 g/dL (13.5-17.5) L 10/22/17 06:42 Hct 38.1 % (40.0-50.0) L 10/22/17 06:42 MCV 87.2 fL (80-95) 10/22/17 06:42 MCH 30.4 pg (27.0-33.0) 10/22/17 06:42 MCHC 34.9 g/dL (32.0-36.0) 10/22/17 06:42 RDW 12.7 % (11.8-14.1) 10/22/17 06:42 Plt Count 547 x1000/uL (130-400) H 10/22/17 06:42 MPV 10.4 fL (8.0-11.0) 10/22/17 06:42 Immature Gran % 1.3 10/22/17 06:42 Neutrophils % 87.4 10/22/17 06:42 Lymphocytes % 6.9 10/22/17 06:42 Monocytes % 3.9 10/22/17 06:42 Eosinophils % 0.2 10/22/17 06:42 Basophils % 0.3 10/22/17 06:42 Absolute Neutrophils 12.63 k/cumm (1.2-6.7) H 10/22/17 06:42 Band Neutrophils 1.0 % 10/20/17 12:03 Absolute Lymphocytes 1.00 k/cumm (1.2-3.4) L 10/22/17 06:42 Absolute Monocytes 0.56 k/cumm (0.11-0.7) 10/22/17 06:42 Absolute Eosinophils 0.03 k/cumm (0.0-0.7) 10/22/17 06:42 Absolute Basophils 0.04 k/cumm (0.0-0.2) 10/22/17 06:42 Metamyelocytes 1.0 % 10/20/17 12:03 Differential Comment Agrees w/ instrument 10/22/17 06:42 Atypical Lymphocytes 1 10/20/17 12:03 RBC Morphology See below 10/20/17 12:03 Polychromasia Present 10/20/17 12:03 D-Dimer 1000 ng/mlFEU (<500) H 10/20/17 12:03 Sodium 132 mmol/L (136-145) L 10/22/17 06:42 Potassium 4.2 mmol/L (3.5-5.1) 10/22/17 06:42 Chloride 98 mmol/L (98-107) 10/22/17 06:42 Carbon Dioxide 26.1 mmol/L (21.0-32.0) 10/22/17 06:42 Anion Gap 7.9 mmol/L (3-11) 10/22/17 06:42 BUN 22 mg/dL (7-18) H 10/22/17 06:42 Creatinine 0.72 mg/dL (0.70-1.30) 10/22/17 06:42 Estimated GFR/1.73 m2 >= 60.00 (mL/min/1.73m2) 10/22/17 06:42 Glucose 397 mg/dL (70-100) H 10/22/17 06:42 Hemoglobin A1c 11.9 % (4.5-6.2) H 10/21/17 09:50 Lactate 2.1 mmol/L (0.6-1.4) H 10/20/17 12:03 Calcium 9.0 mg/dL (8.5-10.1) 10/22/17 06:42 Magnesium 2.0 mg/dL (1.8-2.4) 10/20/17 12:03 Total Bilirubin 0.4 mg/dL (0.2-1.0) 10/20/17 12:03 AST 29 U/L (15-37) 10/20/17 12:03 ALT 20 U/L (12-78) 10/20/17 12:03 Alkaline Phosphatase 124 U/L (46-116) H 10/20/17 12:03 Troponin I < 0.02 ng/mL (0.00-0.06) 10/20/17 12:03 NT-Pro-B Natriuret Pep 241 pg/mL (-299) 10/20/17 12:03 Total Protein 7.0 g/dL (6.4-8.2) 10/20/17 12:03 Albumin 1.7 g/dL (3.4-5.0) L 10/20/17 12:03 Triglycerides 188 mg/dL (30-150) H 10/21/17 09:50 Total Cholesterol 85 mg/dL (50-200) 10/21/17 09:50 LDL Cholesterol Direct 56 mg/dL (<100) 10/21/17 09:50 HDL Cholesterol 9 mg/dL (40-60) L 10/21/17 09:50 Lipase 118 U/L (73-393) 10/20/17 12:03 TSH 0.51 uIU/mL (0.358-3.74) 10/21/17 09:50 Urine Color Yellow (Yellow) 10/20/17 10:45 Urine Clarity Clear 10/20/17 10:45 Urine pH 6.0 (5-8) 10/20/17 10:45 Ur Specific [place] 1.010 (1.005-1.025) 10/20/17 10:45 Urine Protein Negative mg/dL (Negative) 10/20/17 10:45 Urine Ketones 15 mg/dL (Negative) H 10/20/17 10:45 Urine Blood Trace-intact (Negative) H 10/20/17 10:45 Urine Nitrite Negative (Negative) 10/20/17 10:45 Urine Bilirubin Negative (Negative) 10/20/17 10:45 Urine Urobilinogen 0.2 EU/dL (Up TO 0.2) 10/20/17 10:45 Ur Leukocyte Esterase Negative (Negative) 10/20/17 10:45 Urine RBC 0-2 (0-2) 10/20/17 10:45 Urine WBC Negative HPF (0-5) 10/20/17 10:45 Ur Epithelial Cells Negative HPF (Negative) 10/20/17 10:45 Urine Crystals Negative HPF (Negative) 10/20/17 10:45 Urine Bacteria Negative HPF (Negative) 10/20/17 10:45 Urine Casts Negative LPF (Negative) 10/20/17 10:45 Urine Mucus Negative (Negative) 10/20/17 10:45 Ur Culture Indicated? No 10/20/17 10:45 Urine Glucose 500 mg/dL (Negative) H 10/20/17 10:45 % CD3 Cells Cancelled 10/20/17 12:54 % CD4 Cells Cancelled 10/20/17 12:54 Absolute CD4 Count Cancelled 10/20/17 12:54 % CD8 Cells Cancelled 10/20/17 12:54 HIV 1&2 Ag/Ab, 4th Gen Negative (NEGAT) 10/20/17 12:55 Legionella Source (see note) 10/20/17 13:20 Legionella Reprt Status (see note) 10/20/17 13:20 Legionella Final Result (see note) 10/20/17 13:20 Date of service: 10/22/17 Time of Service: 14:15
[2017-10-22 14:33] LABS: COMMENT (LAB VIEW ONLY) 43.94 mg/dL; Microalb ug/mg Crea 6.4 ug/mg Cr
[2017-10-22 15:35] VITALS: BP 123/66; PULSE 91; RESP 16; TEMP 36.7; O2SAT 94
--- NOTE | 2017-10-22 15:36 | DM INPTCON_ITS ---
DESCRIPTION/ASSESSMENT: Appreciate diabetes consult for Mio Alegre who has newly diagnosed diabetes of unkown but presumed type 2. He is hospitalized for pneumonia but states he has felt poorly for over a month with fatigue, thirst, frequent urination, and just not feeling himself. A1c 11.9 During this hospitalization blood sugars have been 320-479. He is also on Prednisone. He is currently manage with 25u Lantus and resistant insulin correction. Met with Mio who was able to return demonstration of insulin administration practicing using the Lantus pen. Presumed discharge on basal insulin as well as oral antihyperglycemics. INTERVENTION: Reinforced his insulin injection technique using BD Mini needle. Instructed on use of glucometer and explained he can get a prescription or he can purchase Blitsy brand Relion if he has any difficulty with insurance covering, which is unlikely. Reviewed food guide and he reports healthy eating habits. Suggested protein for breakfast and emphasized non-carbohydrate food choices. Reviewed survival skills with him and he voices understanding. PLAN: F/u appt for 10/30/17 at 10AM and he will call with questions in the meantime Suggest he leave with prescription for Lantus, pen needles 31g x 07/05 or 32g x . Suggest he leave with prescriptio for One Touch glucometer, strips and lancets.
[2017-10-22] MEDS: Enoxaparin 40 MG/0.4 ML SYR SC (19:32)
[2017-10-22] MEDS: Insulin Glargine 300 UNITS/3 ML PEN 25 UNITS SC (21:16)
[2017-10-22 23:56] VITALS: BP 118/70; PULSE 83; RESP 17; TEMP 35.6; O2SAT 96
[2017-10-23 07:15] LABS: Abs Immature Grans 0.09 k/cumm (0.0-0.09); Absolute Basophil Count 0.01 k/cumm (0.0-0.2); Absolute Eosinophil Count 0.08 k/cumm (0.0-0.7); Absolute Lymphocyte Count 1.09 k/cumm (1.2-3.4); Absolute Monocyte Count 0.45 k/cumm (0.11-0.7); Basophils % 0.1; HCT 37.9 % (40.0-50.0); HGB 12.6 g/dL (13.5-17.5); Immature Grans % 1.1; Lymphocytes % 13.4; Mean Corp. HGB Concentration 33.2 g/dL (32.0-36.0); Mean Corpuscular Hemoglobin 29.4 pg (27.0-33.0); Mean Corpuscular Volume 88.3 fL (80-95); Monocytes % 5.5; Neutrophils % 78.9; RBC 4.29 m/cumm (4.50-6.00); RBC Distribution Width 12.8 % (11.8-14.1); White Blood Cell Count 8.12 k/cumm (4.4-10.8)
[2017-10-23 07:18] LABS: Absolute Neutrophil Count 6.41 k/cumm (1.2-6.7)
[2017-10-23 07:20] VITALS: BP 119/82; PULSE 87; RESP 18; TEMP 36.5; O2SAT 95
[2017-10-23 07:20] LABS: Anion Gap 5.1 mmol/L (3-11); BUN 14 mg/dL (7-18); CO2 28.9 mmol/L (21.0-32.0); CREATININE 0.73 mg/dL (0.70-1.30); Calcium 8.2 mg/dL (8.5-10.1); Chloride 100 mmol/L (98-107); Glucose 383 mg/dL (70-100); Sodium 134 mmol/L (136-145)
[2017-10-23 07:38] LABS: Diff Comment Diff Reviewed; Platelet Count 601 x1000/uL (130-400); RBC Morphology Normal
[2017-10-23] MEDS: Nystatin 500000 UNITS/5 ML SUSP 5ML CUP PO (08:03)
[2017-10-23] MEDS: Pantoprazole 40 MG TABCR PO (08:04)
[2017-10-23] MEDS: Azithromycin 250 MG TAB PO (08:04)
[2017-10-23] MEDS: Baclofen 10 MG TAB PO (08:04)
[2017-10-23] MEDS: Losartan 50 MG TAB 100 MG PO (08:04)
[2017-10-23] MEDS: Insulin Aspart 300 UNITS/3 ML PEN SC ×2 (08:12→12:23)
--- NOTE | 2017-10-23 08:34 | PDOC.CMDIS ---
LACE Index Scoring Tool - Questions: Length of Stay (in days): 2 Acuity (Admit via E.D.?): Yes Comorbidities: Diabetes w/o Complication, Liver or Renal Disease E.D. Visits: 5 - Answers: Total Score: 14 Risk of Readmission: High Risk Care Management Discharge Reason for Hospitalization: Pneumonia, Hyperglycemia Discharge Plan: Mio will return home when ready per MD. He was provided RN education central to managing his new onset diabetes at home with insulin. Mio reports feeling confident he and his can manage his new care needs at home and shares that he has a follow up appointment with [facility] next week. JAVIER spoke with the pharmacist at Mio's community pharmacy; [facility] in [facility] who recommended Dr. Johansen order One Touch diabetic supplies for Medicaid coverage. No additional services anticipated at this time. Mio will transport home via private vehicle with his , Rekha. Patient/Family Education Needs: Diabetic education, nutrition counseling, insurance coverage coordination, review of discharge instructions, discussion around self care needs upon discharge; [facility] Me [employer], outpatient follow up supports.
--- NOTE | 2017-10-23 08:40 | CMDISCH_ITS ---
LACE Index Scoring Tool - Questions: Length of Stay (in days): 2 Acuity (Admit via E.D.?): Yes Comorbidities: Diabetes w/o Complication, Liver or Renal Disease E.D. Visits: 5 - Answers: Total Score: 14 Risk of Readmission: High Risk Care Management Discharge Reason for Hospitalization: Pneumonia, Hyperglycemia Discharge Plan: Mio will return home when ready per MD. He was provided RN education central to managing his new onset diabetes at home with insulin. Mio reports feeling confident he and his can manage his new care needs at home and shares that he has a follow up appointment with Rikki Steel Turner next week. JAVIER spoke with the pharmacist at M[facility] community pharmacy ; [facility] who recommended Dr. Johansen order One Touch diabetic supplies for Medicaid coverage. No additional services anticipated at this time. Mio will transport home via private vehicle with his , Rekha. Patient/Family Education Needs: Diabetic education, nutrition counseling, insurance coverage coordination, review of discharge instructions, discussion around self care needs upon discharge; Ask Me Three, outpatient follow up supports.
--- NOTE | 2017-10-23 14:09 | CHAPLAIN ---
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 He was pleasant and engaged in a conversation. He told me that when he came to the ER at his 's insistence, he was found to have pneumonia and was newly diagnosed with with diabetes. Although that was a lot to take in, Mio said he beginning to realize all that he needs to do to take care of himself. He gave himself his first insulin injection today. Mio said his , who is an GENERAL I FARMWORKER, is very supportive. He also has a five year old son. He added that he is blessed in many ways, and now he knows what to do to take care of himself. He said he relaxes by spending time with his family, especially his son. Considering all the new information Mio received during the past couple of days, he seemed comforted able. He said all of the care he has received was excellent, and he is impressed with how kind and helpful the staff has been.
--- NOTE | 2017-10-23 16:51 | W.PM.DS.N ---
DS: Diagnosis Discharge Diagnosis (1) Community acquired pneumonia: Status: Acute Asessment and Plan: Right lower lobe pneumonia by chest x-ray and confirmed on CT scan of the chest. Treated with ceftriaxone and azithromycin. Discharged on 2 more days of azithromycin. Respiratory status was never severely compromised. His sats are running 98% on room air. He is discharged with an Acapella and incentive spirometry. Smoking cessation was discussed and he is committed to quitting. (2) Diabetes mellitus: Start date: 10/21/17 Status: Acute Asessment and Plan: Newly discovered diabetes type 2. He had had about a month of polyuria polydipsia. He was drinking about a gallon of orange juice overnight along with 2 gallons of water overnight. He had no idea he was a diabetic. Blood sugar on presentation to the emergency room was 500. He was treated with Lantus insulin and correction dose aspart. Blood sugars came down to 250 by the time of discharge. Hemoglobin A1c 11.9%. Seen by diabetic teacher, Deann Graham. (3) Smoker: Status: Acute Asessment and Plan: Long-standing smoker. He has not smoked during this admission. He is committed to quitting. (4) Intractable hiccups: Status: Acute Asessment and Plan: He states he had hiccups for about a month. He received Protonix and baclofen which seemed to curb his hiccups. He still had some halting breathing motions that appear to be habitual. Workup for malignancy included a chest CT scan that did not show evidence of malignancy. Further follow-up if he continues to have long-standing hiccups. Discharge Plan Discharge Details Reason For Visit: PNEUMONIA (RLL) / DM2 Admit Date/Time: 10/22/17 11:01 Admit Provider: John Singh Attending Provider: John Singh Primary Care Provider: Zach Sanders Disposition Patient Disposition: HOME Condition: Improving Hosptial Course Hospital Course: 52-year-old male presents with polyuria polydipsia and a cough. Chest x-ray revealed a right lower lobe infiltrate confirmed by CT of the chest. Blood sugar was running at 500, hemoglobin A1c 11.9%. He was started on a diabetic regimen which included Lantus insulin and aspart correction insulin. He received ceftriaxone and azithromycin for the pneumonia and is transitioned to azithromycin to complete a 5 day course. During his stay he had diabetic teaching and was taught to check his sugars and inject insulin. He had hiccups that had persisted for about a month. He received Protonix and baclofen to help control the hiccups with some improvement. He still has some halting breaths. He has an incentive spirometer and Acapella available to help with respiratory effort. He has ESTHER hose available for his peripheral edema. Home Meds and New Rx's Prescriptions: New azithromycin 250 mg Tablet 250 mg PO DAILY Qty: 2 RF: 0 baclofen 10 mg Tablet 10 mg PO TID PRN (Reason: Hiccups) Qty: 20 RF: 0 insulin aspart U-100 [Novolog Flexpen U-100 Insulin] 100 unit/mL Insulin Pen subcut 0800,1200,1700 Qty: 5 RF: 4 pantoprazole 40 mg Tablet,Delayed Release (Dr/Ec) 40 mg PO DAILY@0730 Qty: 30 RF: 1 insulin glargine [Lantus Solostar U-100 Insulin] 100 unit/mL (3 mL) Insulin Pen 25 units subcut HS Qty: 5 RF: 0 Continue albuterol sulfate [Ventolin HFA] 60 PUFF HFA aerosol inhaler 2 puff Inhalation Q2H PRN PRNQty: 1 RF: 1 losartan 100 MG tablet 100 mg PO QAM RF: 0 buprenorphine-naloxone [Suboxone] 1 EACH film 1 ea PO DAILY RF: 0 Discharge Instructions Instructions: How to Check Your Blood Sugar (DC), Diabetes Mellitus Type 2 in Adults (DC), Managing Diabetes During Sick Days (DC), Pneumonia (DC) Additional Instructions: Note for work: Mio Alegre was hospitalized from 10/20/2017 through 10/23/2017 with an acute illness. He will require remaining out of work until seen by his primary care provider CHIKI Chavira and or for the next 2 weeks. Stand Alone Forms: Nursing Discharge Form Referrals: Beba Graham [CONCRETE MIXER OPERATOR HELPER] - 10/30/17 10:00 am Zach Sanders [Primary Care Provider] - (Please call [facility] to schedule a follow up appointment.) Activity:: Activity as Tolerated Equipment/Supplies:: Insulin and needles Diet:: Carb Counting Discharge Orders Discharge Orders: Discharge Order (Routine); Ordered 10/23/17 Ordered By: Mio Johansen Discharge Data Discharge Date/Time-TO BE ENTERED AT DEPARTURE: 10/23/17 12:55 DS: Summary Time spent discussing smoking cessation with patient: more than 10 minutes Status at Discharge Functional status at discharge: independent ambulation Overall status at discharge: patient is progressing back to baseline Time Spent with Patient Greater than 30 minutes Exam Narrative Exam Narrative: Exam on the day of discharge demonstrated a mild paroxysmal cough that sounded productive. His posterior lung exam was largely clear perhaps a hint of rales in the mid right area but otherwise good air movement bilaterally. Heart regular rate and rhythm. Abdomen soft and nontender. The lower extremity edema had all but resolved using ESTHER hosiery. DS: Data Completed studies during hospitalization [Text1]: Procedures Introduction of Serum, Toxoid and Vaccine into Muscle, Percutaneous Approach (12/03/16) Monitoring of Cardiac Electrical Activity, External Approach (12/03/16) Labs on day of discharge: Labs from last 24 hours 10/23/17 10/23/17 06:34 06:34 WBC 8.12 D RBC 4.29 L Hgb 12.6 L Hct 37.9 L MCV 88.3 MCH 29.4 MCHC 33.2 RDW 12.8 Plt Count 601 H MPV 10.0 Immature Gran % 1.1 Neutrophils % 78.9 Lymphocytes % 13.4 Monocytes % 5.5 Eosinophils % 1.0 Basophils % 0.1 Absolute Neutrophils 6.41 Absolute Lymphocytes 1.09 L Absolute Monocytes 0.45 Absolute Eosinophils 0.08 Absolute Basophils 0.01 Differential Comment Diff reviewed RBC Morphology Normal Sodium 134 L Potassium 4.0 Chloride 100 Carbon Dioxide 28.9 Anion Gap 5.1 BUN 14 D Creatinine 0.73 Estimated GFR/1.73 m2 >= 60.00 Glucose 383 H Calcium 8.2 L Preliminary micro results at discharge 10/20/17 12:03 Blood Culture - Preliminary Blood NO GROWTH 72 HOURS 10/22/17 07:45 Sputum Culture - Preliminary Sputum Normal Phyllis Date of service: 10/23/17 Time of Service: 16:51
--- NOTE | 2017-10-24 10:48 | PGE_ITS ---
Assessment and Plan (1) Community acquired pneumonia: Current visit: No Status: Acute He is gradually improving on ceftriaxone and azithromycin. White count is normalizing. No further fever chills or rigors. Continue present antibiotics. (2) Diabetes mellitus: Current visit: No Status: Acute Blood sugars continue to run high. Asked the health promotion educator to see the patient (Deann Graham). Begin diabetic education. Increase Lantus to 25 units at at bedtime. (3) Smoker: Current visit: No Status: Acute Committed to smoking cessation. He says he has no urges. (4) Intractable hiccups: Current visit: No Status: Acute We will give a trial of baclofen and Protonix. Subjective Patient reports: feels better Interval history since last seen: Patient continues to have a productive cough. He says he feels a lot better then he did when he came in. No fever chills or rigors. Blood sugars continue to run high. He is enthusiastic to get these under control. He is tolerating a fluid restriction. Exam Narrative Exam Narrative: He overall looks reasonably well. He has somewhat pressured speech and is quite enthusiastic. His lung exam continues to show some rales in the right middle area of his chest the upper and lower lung valencia sound clear the left side sounds clear heart sounds are strong and regular abdomen nontender lower extremities 1+ edema bilaterally. Objective Objective Clinical Data: Vital Signs Temp 36.5 C 10/23/17 07:20 Pulse 87 10/23/17 07:20 Resp 18 10/23/17 07:20 BP 119/82 10/23/17 07:20 Pulse Ox 95 10/23/17 07:20 Intake & Output 10/23/17 10/23/17 10/24/17 11:59 23:59 11:59 Intake Total 400 / 400 Output Total 350 / 350 Balance 50 / 50 Weight 98.9 kg Intake: Oral 400 / 400 Output: Urine 350 / 350 Other: Urine Color Yellow Urine Appearance Clear Comment Urine not seen, reported void by patient, toilet flushed. Voiding Methods Toilet Laboratory Results WBC 8.12 k/cumm (4.4-10.8) D 10/23/17 06:34 RBC 4.29 m/cumm (4.50-6.00) L 10/23/17 06:34 Hgb 12.6 g/dL (13.5-17.5) L 10/23/17 06:34 Hct 37.9 % (40.0-50.0) L 10/23/17 06:34 MCV 88.3 fL (80-95) 10/23/17 06:34 MCH 29.4 pg (27.0-33.0) 10/23/17 06:34 MCHC 33.2 g/dL (32.0-36.0) 10/23/17 06:34 RDW 12.8 % (11.8-14.1) 10/23/17 06:34 Plt Count 601 x1000/uL (130-400) H 10/23/17 06:34 MPV 10.0 fL (8.0-11.0) 10/23/17 06:34 Immature Gran % 1.1 10/23/17 06:34 Neutrophils % 78.9 10/23/17 06:34 Lymphocytes % 13.4 10/23/17 06:34 Monocytes % 5.5 10/23/17 06:34 Eosinophils % 1.0 10/23/17 06:34 Basophils % 0.1 10/23/17 06:34 Absolute Neutrophils 6.41 k/cumm (1.2-6.7) 10/23/17 06:34 Band Neutrophils 1.0 % 10/20/17 12:03 Absolute Lymphocytes 1.09 k/cumm (1.2-3.4) L 10/23/17 06:34 Absolute Monocytes 0.45 k/cumm (0.11-0.7) 10/23/17 06:34 Absolute Eosinophils 0.08 k/cumm (0.0-0.7) 10/23/17 06:34 Absolute Basophils 0.01 k/cumm (0.0-0.2) 10/23/17 06:34 Metamyelocytes 1.0 % 10/20/17 12:03 Differential Comment Diff reviewed 10/23/17 06:34 Atypical Lymphocytes 1 10/20/17 12:03 RBC Morphology Normal 10/23/17 06:34 Polychromasia Present 10/20/17 12:03 D-Dimer 1000 ng/mlFEU (<500) H 10/20/17 12:03 Sodium 134 mmol/L (136-145) L 10/23/17 06:34 Potassium 4.0 mmol/L (3.5-5.1) 10/23/17 06:34 Chloride 100 mmol/L (98-107) 10/23/17 06:34 Carbon Dioxide 28.9 mmol/L (21.0-32.0) 10/23/17 06:34 Anion Gap 5.1 mmol/L (3-11) 10/23/17 06:34 BUN 14 mg/dL (7-18) D 10/23/17 06:34 Creatinine 0.73 mg/dL (0.70-1.30) 10/23/17 06:34 Estimated GFR/1.73 m2 >= 60.00 (mL/min/1.73m2) 10/23/17 06:34 Glucose 383 mg/dL (70-100) H 10/23/17 06:34 Hemoglobin A1c 11.9 % (4.5-6.2) H 10/21/17 09:50 Lactate 2.1 mmol/L (0.6-1.4) H 10/20/17 12:03 Calcium 8.2 mg/dL (8.5-10.1) L 10/23/17 06:34 Magnesium 2.0 mg/dL (1.8-2.4) 10/20/17 12:03 Total Bilirubin 0.4 mg/dL (0.2-1.0) 10/20/17 12:03 AST 29 U/L (15-37) 10/20/17 12:03 ALT 20 U/L (12-78) 10/20/17 12:03 Alkaline Phosphatase 124 U/L (46-116) H 10/20/17 12:03 Troponin I < 0.02 ng/mL (0.00-0.06) 10/20/17 12:03 NT-Pro-B Natriuret Pep 241 pg/mL (-299) 10/20/17 12:03 Total Protein 7.0 g/dL (6.4-8.2) 10/20/17 12:03 Albumin 1.7 g/dL (3.4-5.0) L 10/20/17 12:03 Triglycerides 188 mg/dL (30-150) H 10/21/17 09:50 Total Cholesterol 85 mg/dL (50-200) 10/21/17 09:50 LDL Cholesterol Direct 56 mg/dL (<100) 10/21/17 09:50 HDL Cholesterol 9 mg/dL (40-60) L 10/21/17 09:50 Lipase 118 U/L (73-393) 10/20/17 12:03 TSH 0.51 uIU/mL (0.358-3.74) 10/21/17 09:50 Urine Color Yellow (Yellow) 10/20/17 10:45 Urine Clarity Clear 10/20/17 10:45 Urine pH 6.0 (5-8) 10/20/17 10:45 Ur Specific [place] 1.010 (1.005-1.025) 10/20/17 10:45 Urine Protein Negative mg/dL (Negative) 10/20/17 10:45 Urine Ketones 15 mg/dL (Negative) H 10/20/17 10:45 Urine Blood Trace-intact (Negative) H 10/20/17 10:45 Urine Nitrite Negative (Negative) 10/20/17 10:45 Urine Bilirubin Negative (Negative) 10/20/17 10:45 Urine Urobilinogen 0.2 EU/dL (Up TO 0.2) 10/20/17 10:45 Ur Leukocyte Esterase Negative (Negative) 10/20/17 10:45 Urine RBC 0-2 (0-2) 10/20/17 10:45 Urine WBC Negative HPF (0-5) 10/20/17 10:45 Ur Epithelial Cells Negative HPF (Negative) 10/20/17 10:45 Urine Crystals Negative HPF (Negative) 10/20/17 10:45 Urine Bacteria Negative HPF (Negative) 10/20/17 10:45 Urine Casts Negative LPF (Negative) 10/20/17 10:45 Urine Mucus Negative (Negative) 10/20/17 10:45 Ur Culture Indicated? No 10/20/17 10:45 Ur Creatinine mg/dL 43.94 mg/dL 10/22/17 13:00 Ur Microalbumin mg/L 2.8 mg/L (1.30-20.0) 10/22/17 13:00 Microalb/Creat Ratio 6.4 ug/mg Cr 10/22/17 13:00 Urine Glucose 500 mg/dL (Negative) H 10/20/17 10:45 % CD3 Cells Cancelled 10/20/17 12:54 % CD4 Cells Cancelled 10/20/17 12:54 Absolute CD4 Count Cancelled 10/20/17 12:54 % CD8 Cells Cancelled 10/20/17 12:54 HIV 1&2 Ag/Ab, 4th Gen Negative (NEGAT) 10/20/17 12:55 Legionella Source (see note) 10/20/17 13:20 Legionella Reprt Status (see note) 10/20/17 13:20 Legionella Final Result (see note) 10/20/17 13:20 Date of service: 10/21/17 Time of Service: 12:43
[2017-10-24 13:00] LABS: C-Peptide 4.6 ng/mL (1.1 - 4.4)
== END 2017-10-23 12:55 | disposition home or self-care (01) | DRG 194 ==
LOC: ER 10-21 10:14 → MS 10-21 10:14
PROVIDERS: Physician Assistant; Admitting Provider Family Medicine; Emergency Provider Student in an Organized Health Care Education/Training Program; PCP Specialist/Technologist Athletic Trainer; Visit Provider Family Medicine
DX: J18.9 Pneumonia, unspecified organism (principal); F11.20 Opioid dependence, uncomplicated; Z71.6 Tobacco abuse counseling; F17.210 Nicotine dependence, cigarettes, uncomplicated; I10 Essential (primary) hypertension; B18.2 Chronic viral hepatitis C; G89.29 Other chronic pain; Z71.3 Dietary counseling and surveillance
CPT/HCPCS: 36415; 36416; 71275; 80048; 80053; 80061; 82947; 82962; 83690; 83721; 87040; 87329; 87389; 87449; 93005; 96361; 96365; 96367; 96372; 99232; 99239; 99285; J1650; 71046; 81003; 81015; 82043; 82570; 83036; 83605; 83630; 83735; 83880; 84443; 84484; 84681; 85025; 85379; 86359; 86360; 87070; 87205; 87324; 93010; 94640; G0378; J0456; J0696; J3490; J7512; J7620

== ENCOUNTER 2017-10-30 12:46 | Outpatient (CLI) | payer MEDICAID, SELFPAY ==
--- NOTE | 2017-10-30 10:00 | DIABASSESS_ITS ---
DESCRIPTION/ASSESSMENT: Aditi Alegre presents for diabetes self management after diagnosis during hospitalization. Food Guidelines - Aditi reports eating eggs toast and fruit for breakfast, sandwich, noodle soup and saltines for lunch; sandwich, georgian fries and milk for supper. He snacks on celery with peanut butter. He has cut back on snacks and portions and is eating real fruit and nuts. Physical Activity - When working he is active, however since the hospitalization he is not as physically active. Medication - Aditi has increased his basal insulin to 35units from 30 units. Fasting blood [id number], currently in mid-300s. Bedtime blood sugar ranges 128-503 within past 3 days. He takes mealtime insulin correction ranging 12- 21 units. Blood sugars during the day 108-457, mostly in 3-400s. Monitoring - He is successfully monitoring 4 times a day without difficulty and with commitment. Risks/Related health history - He is medicated for his stomach, blood pressure and steroid inhaler. He has just quit smoking and expresses confidence he can maintain this change. Coping - denies depression but finds being out of work stressful. INTERVENTION: DSME is provided in the following AADE 7 areas based on patients interest and assessment of needs: Food Guidelines - reviewed carbohydrate servings with him. He agrees to aim at 45 grams carbohydrate per meal and match it with 8 units mealtime insulin plus correction and he voices understanding. Physical Activity - encouraged daily as tolerated. Reviewed benefits. Medication - Given he is only on mealtime insulin correction, suggest he begin addition of 8 units for blood sugars less than 140mg/dl. Insulin:carb ratio calculated at 1 unit covers ~6 grams carbohydrate and 1 unit corrects 20mg/dl above 140mg/dl. He is willing to try this. His PCP is increasing his basal rate about once a week. Discussed other medications that may help him with glycemic control. Monitoring - Discussed monitoring for meaning, especially in relation to counting carbohydrate servings. Given a pattern of increased blood sugars overnight, asked him to consider monitoring once in the night if he awakes. Risks/Related health history - encouraged his smoking cessation. ACTION PLAN: Aditi will: use the new insulin dosing scale count carbohydrate servings at each meal; attempt to limit to 45 grams Test his blood sugar in the middle of the night to compare with fasting. We will be in touch by telephone for follow-up and as desired. Individual DSME/T ____ units billed TIME IN: OUT: No DM group education series being offered at this time.
== END 2017-10-30 13:06 ==
PROVIDERS: PCP Specialist/Technologist Athletic Trainer; Visit Provider Dietitian, Registered
DX: E11.9 Type 2 diabetes mellitus without complications (principal); Z79.4 Long term (current) use of insulin; Z71.3 Dietary counseling and surveillance
CPT/HCPCS: 97802

== ENCOUNTER 2017-11-01 15:20 | Outpatient (REF) | payer MEDICAID, SELFPAY ==
--- NOTE | 2017-11-01 14:30 | SKI_PTH ---
PATIENT: Mio Parra LOC: [facility] U#:[id number] AGE/SX: 52/M ROOM: RE11/01/[address]: Zach Sanders : 1965 BED: DIS: 11/01/2017 SPEC #: [id number] RECD: 11/02/17 12:25 STATUS: CRISTINO REKrysta #: [id number] JUNITO: 11/01/17 14:[address]: Zach Sanders DEPT: Surgical Specimen RECD BY: Isabel Fong Tissues: 1 - SKIN BIOPSY(SHAVE/PUNCH) Procedures: SKIN LEVEL 4 Comments: [id number]
== END 2017-11-01 15:40 ==
LOC: NCHCN 15:20
PROVIDERS: PCP Specialist/Technologist Athletic Trainer; Visit Provider Specialist/Technologist Athletic Trainer
DX: L95.8 Other vasculitis limited to the skin (principal); L81.7 Pigmented purpuric dermatosis
CPT/HCPCS: 88305

== ENCOUNTER 2017-11-02 10:06 | Outpatient (CLI) | payer MEDICAID, SELFPAY ==
[2017-11-02 10:43] LABS: Abs Immature Grans 0.03 k/cumm (0.0-0.09); Absolute Basophil Count 0.05 k/cumm (0.0-0.2); Absolute Eosinophil Count 0.15 k/cumm (0.0-0.7); Absolute Lymphocyte Count 1.45 k/cumm (1.2-3.4); Absolute Monocyte Count 0.64 k/cumm (0.11-0.7); Absolute Neutrophil Count 4.01 k/cumm (1.2-6.7); Basophils % 0.8; Eosinophils % 2.4; HCT 37.6 % (40.0-50.0); HGB 12.1 g/dL (13.5-17.5); Immature Grans % 0.5; Lymphocytes % 22.9; Mean Corp. HGB Concentration 32.2 g/dL (32.0-36.0); Mean Corpuscular Hemoglobin 29.7 pg (27.0-33.0); Mean Corpuscular Volume 92.4 fL (80-95); Mean Platelet Volume 8.9 fL (8.0-11.0); Monocytes % 10.1; Neutrophils % 63.3; Platelet Count 509 x1000/uL (130-400); RBC 4.07 m/cumm (4.50-6.00); RBC Distribution Width 13.5 % (11.8-14.1); White Blood Cell Count 6.33 k/cumm (4.4-10.8)
[2017-11-02 11:22] LABS: ESR 54 MM/HR (1-20)
[2017-11-02 11:39] LABS: ALT 26 U/L (12-78); AST 16 U/L (15-37); Albumin 2.9 g/dL (3.4-5.0); Alkaline Phosphatase 82 U/L (46-116); Anion Gap 6.4 mmol/L (3-11); BUN 17 mg/dL (7-18); Bilirubin, Total 0.2 mg/dL (0.2-1.0); C-Reactive Protein 1.09 mg/dL (0.0-0.3); CO2 29.6 mmol/L (21.0-32.0); CREATININE 0.66 mg/dL (0.70-1.30); Calcium 8.8 mg/dL (8.5-10.1); Chloride 104 mmol/L (98-107); Glucose 113 mg/dL (70-100); Potassium 4.3 mmol/L (3.5-5.1); Sodium 140 mmol/L (136-145); Total Protein 7.5 g/dL (6.4-8.2)
== END 2017-11-02 10:26 ==
PROVIDERS: PCP Specialist/Technologist Athletic Trainer; Visit Provider Specialist/Technologist Athletic Trainer
DX: R23.3 Spontaneous ecchymoses (principal); E11.65 Type 2 diabetes mellitus with hyperglycemia
CPT/HCPCS: 36415; 80053; 85652; 85025; 86140

== ENCOUNTER 2018-04-12 19:09 | Emergency (ER) | payer MEDICAID, SELFPAY ==
[2018-04-12 19:16] VITALS: BP 120/69; PULSE 115; RESP 18; O2SAT 96
[2018-04-12 19:40] VITALS: TEMP 37.4
--- NOTE | 2018-04-12 20:00 | W.ED.GENAD ---
Discharge Plan Disposition Patient Disposition: [facility] Condition: Stable Discharge Details Chief Complaint: Orthopedic Clinical Impression: Ankle fracture, lateral malleolus, closed, Closed fracture of posterior malleolus, Subluxation of ankle joint, Abrasion of ankle, left Primary Care Provider: Zach Sanders ED Provider: Leticia Epperson Home Meds and New Rx's Prescriptions: Continued Ventolin HFA 60 PUFF HFA aerosol inhaler 2 puff Inhalation Q2H PRN PRNQty: 1 RF: 1 losartan 100 MG tablet 100 mg PO QAM RF: 0 pantoprazole 40 mg Tablet,Delayed Release (Dr/Ec) 40 mg PO DAILY@0730 Qty: 30 RF: 1 Lantus Solostar U-100 Insulin 100 unit/mL (3 mL) Insulin Pen 25 units subcut HS Qty: 5 RF: 0 metformin 750 mg Tablet Extended Release 24 Hr 750 mg PO TID RF: 0 Discharge Instructions Instructions: Ankle Fracture (ED), Abrasion (ED) Additional Instructions: Go directly to [facility] emergency department to be seen by the emergency physician and orthopedics for further care of your ankle fracture. Discharge Data Discharge Physician: Leticia Epperson Medical Decision Making 52-year-old male presents with left ankle pain after twisting his ankle while walking upstairs wearing a flip-flop. X-ray reviewed and notes a spiral distal fibular fracture. Ankle mortise appears intact. No deformity. Neurovascularly intact. No tenderness palpation or injury noted to foot. Small abrasion to medial ankle. No significant open wounds. Will give a dose of Motrin and oxycodone and call ortho. 2129 --discussed with [facility] after they reviewed images. Recommend reduction to reduce space between medial malleolus and talus. Recommend the Jeny method for reduction. Can give pain medication and do lidocaine block. Offered IV sedation to patient but he would rather proceed with pain medications and local block. Recommend tib-fib x-rays to look for additional fractures. 0 --10cc 1% lidocaine without epi injected into medial joint site and reduction attempted at bedside. On initial attempt, no change was felt, but with repeated attempts with assistance with nurse practitioner, a click was heard and patient states he felt better. Splint was placed. 0 --There is no improvement in ankle joint widening after reduction on ankle xray. Tib-fib x-rays negative. 0100 --repeat x-rays reviewed with [facility] and agrees there is no improvement. States reduction needs to be done now. We do not have ortho special investigation unit investigator until the morning. There are no beds available in the hospital. Discussed with patient attempting sedation and re-reduction here but he is refusing and stating he wants to go home. Discussed with [facility] ortho and they are willing to accept patient to the ED there for reduction. Discussed with patient and he is agreeable with this plan. Patient's girlfriend will drive patient to [facility] ER. Accepting ER physician Dr. Covarrubias. Discussed w/ [facility] ortho that there was a small superficial 1x1xm abrasion to medial malleolus noted. This did not appear to be a open wound, but may be due to tenting of skin. Notified that wound dressing was not placed prior to splint and they will address this there. Ortho stated that if there is no oozing from wound - which there was not - this is unlikely to be open. If concern remains for open fracture, recommends dose of IV Ancef. Patient is refusing this at this time and states he would rather go directly to [facility]. Ortho was notified that patient may refuse this IV dose here. Ortho did not recommend PO antibiotics here and will give pt IV antibiotics there if needed. Medical Records Medical records reviewed: Yes I reviewed the patient's medical records. Imaging Data Radiologic Study: Radiologist's impression: XR Left Ankle Complete, 3 or more Views FINDINGS: Bones/joints: There is a spiral fracture of the lateral malleolus with approximately half shaft width lateral displacement of the distal fracture fragment. There is widening of the medial clear space, measuring up to 1.2 cm compatible with injury to the medial collateral ligaments. There is lateral tibiotalar subluxation. There is a questionable fracture of the posterior malleolus versus a displaced fracture fragment from the lateral malleolus. Soft tissues: There is significant soft tissue swelling about the ankle. IMPRESSION: Unstable ankle fracture as manifested by a spiral lateral malleolar fracture with associated tibiotalar subluxation and injury to the medial collateral ligaments. There is question of a small posterior malleolar fracture versus a displaced fracture fragment from the lateral malleolus. XR Left Ankle Complete, 3 or more Views FINDINGS: Bones/joints: Overlying acrylic cast obscures bone detail. No significant change in previously described spiral lateral malleolar fracture and widening of the medial clear space, in keeping with unstable ankle fracture with tibiotalar subluxation and likely injury to the medial collateral ligaments. Again there is question of a posterior malleolar fracture versus displaced fragments from the lateral malleolar fracture. Soft tissues: No significant change to the soft tissue swelling about the ankle. IMPRESSION: Interval placement of a lower leg cast without significant interval changes to the known unstable ankle fracture, as detailed above. XR Left Tibia and Fibula, 2 Views FINDINGS: Bones/joints: Overlying acrylic cast obscures bone detail. No significant change in previously described spiral lateral malleolar fracture and widening of the medial clear space, in keeping with unstable ankle fracture with tibiotalar subluxation and likely injury to the medial collateral ligaments. Again there is question of a posterior malleolar fracture versus displaced fragments from the lateral malleolar fracture. No other acutely displaced fracture or dislocation to the visualized tibia and fibula. Soft tissues: No significant change to the soft tissue swelling about the ankle. IMPRESSION: Interval placement of a lower leg cast without significant interval changes to the known unstable ankle fracture, as detailed above. Dictated and Authenticated by: Shlomo Alvarez MD. HPI General Mode of arrival: ambulatory. Date/Time Provider Initiated Documentation: 04/12/18 19:26. Limitations to Documentation: no limitations. Information obtained by: patient. HPI Narrative: Patient is a 52-year-old male presents with left ankle pain after twisting his ankle while walking upstairs with a flip-flop. He denies any foot pain. He denies any other injuries. He has not taken anything for pain. Related Data Home Medications Medication Instructions Recorded Confirmed Ventolin HFA 2 puff INHALATION Q2H PRN PRN #1 12/04/16 04/12/18 inh losartan 100 mg PO QAM 10/20/17 04/12/18 Lantus Solostar U-100 Insulin 25 units SUBCUT HS #5 pn unit 10/23/17 04/12/18 pantoprazole 40 mg PO DAILY@0730 #30 tab 10/23/17 04/12/18 metformin 750 mg PO TID 04/12/18 04/12/18 Previous Rx's Medication Instructions Recorded Ventolin HFA 2 puff INHALATION Q2H PRN PRN #1 12/04/16 inh Lantus Solostar U-100 Insulin 25 units SUBCUT HS #5 pn unit 10/23/17 pantoprazole 40 mg PO DAILY@0730 #30 tab 10/23/17 Allergies Allergy/AdvReac Type Severity Reaction Status Date / Time Penicillins Allergy Severe Vomiting Unverified 10/20/17 10:39 hydrocodone AdvReac Intermediate vomiting Unverified 10/20/17 10:39 General Stated Complaint: Orthopedic LILLIAN: 4 Review of Systems Review of Systems All systems reviewed & are unremarkable except as noted in HPI and below Constitutional Reports as per HPI, Denies chills and Denies fever(s) Eyes Denies blurry vision ENT Denies dizziness, Denies sore throat and Denies throat swelling Cardiovascular Denies chest pain and Denies dyspnea Respiratory Denies cough and Denies dyspnea Gastrointestinal Denies abdominal pain, Denies diarrhea and Denies vomiting Genitourinary Denies hematuria and Denies dysuria Musculoskeletal Denies back pain and Denies numbness Integumentary/Breasts Denies lesions and Denies rash Neurologic Denies dizziness, Denies focal weakness and Denies numbness Allergic/Immunologic Denies throat swelling PFSH Medical History Diabetes (Chronic) HTN (hypertension) (Chronic) Hepatitis C (Chronic) Surgical History S/P spinal surgery (Acute) Social History Smoking and Tabacco status: Current every day alcohol intake: current alcohol intake frequency: a few times a month substance use type: former substance user, marijuana and opiates Exam Const General: cooperative, healthy appearing and no acute distress HENMT Head: normal to inspection Mouth: oral mucosae normal Eyes General: appearance normal, both eyes and all related structures Neck Neck: normal visual inspection Resp Effort & Inspection: normal respiratory effort and able to speak in complete sentences Cardio Rate: regular rate Skin General skin exam: no rashes or lesions noted Neuro General: alert, awake, oriented x3 and no focal motor deficits Motor: muscle tone normal throughout Sensory Exam: no sensory deficits noted Extrem Other: Tenderness to palpation, edema, ecchymosis of left lateral and medial malleolus. No tenderness to palpation of left fifth metatarsal. Left DP/PT pulses intact. Superfical 1x1cm superficial abrasion noted to L medial malleolus. No significant appearing open wounds or oozing/bleeding. Psych Appearance: grossly normal Affect: normal affect Course Vital Signs Pulse 115 H 04/12/18 19:16 Respiratory Rate 18 04/12/18 19:16 Blood Pressure 120/69 04/12/18 19:16 Pulse Oximetry 96 04/12/18 19:16 Temperature 99.3 F 04/12/18 19:40 Temperature Source Oral 04/12/18 19:40 Pulse 115 H 04/12/18 19:16 Respiratory Rate 18 04/12/18 19:16 Blood Pressure 120/69 04/12/18 19:16 Blood Pressure Position Sitting 04/12/18 19:16 Pulse Oximetry 96 04/12/18 19:16 Oxygen Delivery Method Room Air 04/12/18 19:16 Oxygen Flow Rate 0 04/12/18 19:16 Pain Level 10 04/12/18 19:16 Procedures Orthopedic Fracture Reduction Fracture #1: Time Out Performed: Yes Side: left Fracture Reduction Location: tibia and fibula Analgesia: hematoma block (10cc of 1% lidocaine w/o epi) Technique: direct manipulation Post Reduction X-rays Demonstrate: other (no change) Post-reduction neuro exam: intact Post-reduction vascular exam: intact Splint Applied: Yes Patient Tolerated Procedure: well
--- NOTE | 2018-04-12 20:03 | ED.GENADUL_ITS ---
Discharge Plan Disposition Patient Disposition: [facility] Condition: Stable Discharge Details Chief Complaint: Orthopedic Clinical Impression: Ankle fracture, lateral malleolus, closed, Closed fracture of posterior malleolus, Subluxation of ankle joint, Abrasion of ankle, left Primary Care Provider: Zach Sanders ED Provider: Leticia Epperson Home Meds and New Rx's Prescriptions: Continued Ventolin HFA 60 PUFF HFA aerosol inhaler 2 puff Inhalation Q2H PRN PRNQty: 1 RF: 1 losartan 100 MG tablet 100 mg PO QAM RF: 0 pantoprazole 40 mg Tablet,Delayed Release (Dr/Ec) 40 mg PO DAILY@0730 Qty: 30 RF: 1 Lantus Solostar U-100 Insulin 100 unit/mL (3 mL) Insulin Pen 25 units subcut HS Qty: 5 RF: 0 metformin 750 mg Tablet Extended Release 24 Hr 750 mg PO TID RF: 0 Discharge Instructions Instructions: Ankle Fracture (ED), Abrasion (ED) Additional Instructions: Go directly to [facility] emergency department to be seen by the emergency physician and orthopedics for further care of your ankle fracture. Discharge Data Discharge Physician: Leticia Epperson Medical Decision Making 52-year-old male presents with left ankle pain after twisting his ankle while walking upstairs wearing a flip-flop. X-ray reviewed and notes a spiral distal fibular fracture. Ankle mortise appears intact. No deformity. Neurovascularly intact. No tenderness palpation or injury noted to foot. Small abrasion to medial ankle. No significant open wounds. Will give a dose of Motrin and oxycodone and call ortho. 2129 --discussed with [facility] Ortho after they reviewed images. Recommend reduction to reduce space between medial malleolus and talus. Recommend the Jeny method for reduction. Can give pain medication and do lidocaine block. Offered IV sedation to patient but he would rather proceed with pain medications and local block. Recommend tib-fib x-rays to look for additional fractures. 0 --10cc 1% lidocaine without epi injected into medial joint site and reduction attempted at bedside. On initial attempt, no change was felt, but with repeated attempts with assistance with nurse practitioner, a click was heard and patient states he felt better. Splint was placed. 0 --There is no improvement in ankle joint widening after reduction on ankle xray. Tib-fib x-rays negative. 0100 --repeat x-rays reviewed with [facility]o and agrees there is no improvement. States reduction needs to be done now. We do not have ortho machine stonecutter until the morning. There are no beds available in the hospital. Discussed with patient attempting sedation and re-reduction here but he is refusing and stating he wants to go home. Discussed with [facility] ortho and they are willing to accept patient to the ED there for reduction. Discussed with patient and he is agreeable with this plan. Patient's girlfriend will drive patient to [facility] ER. Accepting ER physician Dr. Covarrubias. Discussed w/ [facility] ortho that there was a small superficial 1x1xm abrasion to medial malleolus noted. This did not appear to be a open wound, but may be due to tenting of skin. Notified that wound dressing was not placed prior to splint and they will address this there. Ortho stated that if there is no oozing from wound - which there was not - this is unlikely to be open. If concern remains for open fracture, recommends dose of IV Ancef. Patient is refusing this at this time and states he would rather go directly to [facility]. Ortho was notified that patient may refuse this IV dose here. Ortho did not recommend PO antibiotics here and will give pt IV antibiotics there if needed. Medical Records Medical records reviewed: Yes I reviewed the patient's medical records. Imaging Data Radiologic Study: Radiologist's impression: XR Left Ankle Complete, 3 or more Views FINDINGS: Bones/joints: There is a spiral fracture of the lateral malleolus with approximately half shaft width lateral displacement of the distal fracture fragment. There is widening of the medial clear space, measuring up to 1.2 cm compatible with injury to the medial collateral ligaments. There is lateral tibiotalar subluxation. There is a questionable fracture of the posterior malleolus versus a displaced fracture fragment from the lateral malleolus. Soft tissues: There is significant soft tissue swelling about the ankle. IMPRESSION: Unstable ankle fracture as manifested by a spiral lateral malleolar fracture with associated tibiotalar subluxation and injury to the medial collateral ligaments. There is question of a small posterior malleolar fracture versus a displaced fracture fragment from the lateral malleolus. XR Left Ankle Complete, 3 or more Views FINDINGS: Bones/joints: Overlying acrylic cast obscures bone detail. No significant change in previously described spiral lateral malleolar fracture and widening of the medial clear space, in keeping with unstable ankle fracture with tibiotalar subluxation and likely injury to the medial collateral ligaments. Again there is question of a posterior malleolar fracture versus displaced fragments from the lateral malleolar fracture. Soft tissues: No significant change to the soft tissue swelling about the ankle. IMPRESSION: Interval placement of a lower leg cast without significant interval changes to the known unstable ankle fracture, as detailed above. XR Left Tibia and Fibula, 2 Views FINDINGS: Bones/joints: Overlying acrylic cast obscures bone detail. No significant change in previously described spiral lateral malleolar fracture and widening of the medial clear space, in keeping with unstable ankle fracture with tibiotalar subluxation and likely injury to the medial collateral ligaments. Again there is question of a posterior malleolar fracture versus displaced fragments from the lateral malleolar fracture. No other acutely displaced fracture or dislocation to the visualized tibia and fibula. Soft tissues: No significant change to the soft tissue swelling about the ankle. IMPRESSION: Interval placement of a lower leg cast without significant interval changes to the known unstable ankle fracture, as detailed above. Dictated and Authenticated by: Shlomo Alvarez MD. HPI General Mode of arrival: ambulatory . Date/Time Provider Initiated Documentation: 04/12/18 19:26 . Limitations to Documentation: no limitations . Information obtained by: patient . HPI Narrative: Patient is a 52-year-old male presents with left ankle pain after twisting his ankle while walking upstairs with a flip-flop. He denies any foot pain. He denies any other injuries. He has not taken anything for pain. Related Data Home Medications Medication Instructions Recorded Confirmed Ventolin HFA 2 puff INHALATION Q2H PRN PRN #1 12/04/16 04/12/18 inh losartan 100 mg PO QAM 10/20/17 04/12/18 Lantus Solostar U-100 Insulin 25 units SUBCUT HS #5 pn unit 10/23/17 04/12/18 pantoprazole 40 mg PO DAILY@0730 #30 tab 10/23/17 04/12/18 metformin 750 mg PO TID 04/12/18 04/12/18 Previous Rx's Medication Instructions Recorded Ventolin HFA 2 puff INHALATION Q2H PRN PRN #1 12/04/16 inh Lantus Solostar U-100 Insulin 25 units SUBCUT HS #5 pn unit 10/23/17 pantoprazole 40 mg PO DAILY@0730 #30 tab 10/23/17 Allergies Allergy/AdvReac Type Severity Reaction Status Date / Time Penicillins Allergy Severe Vomiting Unverified 10/20/17 10:39 hydrocodone AdvReac Intermediate vomiting Unverified 10/20/17 10:39 General Stated Complaint: Orthopedic LILLIAN: 4 Review of Systems Review of Systems All systems reviewed & are unremarkable except as noted in HPI and below Constitutional Reports as per HPI, Denies chills and Denies fever(s) Eyes Denies blurry vision ENT Denies dizziness, Denies sore throat and Denies throat swelling Cardiovascular Denies chest pain and Denies dyspnea Respiratory Denies cough and Denies dyspnea Gastrointestinal Denies abdominal pain, Denies diarrhea and Denies vomiting Genitourinary Denies hematuria and Denies dysuria Musculoskeletal Denies back pain and Denies numbness Integumentary/Breasts Denies lesions and Denies rash Neurologic Denies dizziness, Denies focal weakness and Denies numbness Allergic/Immunologic Denies throat swelling PFSH Medical History Diabetes (Chronic) HTN (hypertension) (Chronic) Hepatitis C (Chronic) Surgical History S/P spinal surgery (Acute) Social History Smoking and Tabacco status: Current every day alcohol intake: current alcohol intake frequency: a few times a month substance use type: former substance user, marijuana and opiates Exam Const General: cooperative, healthy appearing and no acute distress HENMT Head: normal to inspection Mouth: oral mucosae normal Eyes General: appearance normal, both eyes and all related structures Neck Neck: normal visual inspection Resp Effort & Inspection: normal respiratory effort and able to speak in complete sentences Cardio Rate: regular rate Skin General skin exam: no rashes or lesions noted Neuro General: alert, awake, oriented x3 and no focal motor deficits Motor: muscle tone normal throughout Sensory Exam: no sensory deficits noted Extrem Other: Tenderness to palpation, edema, ecchymosis of left lateral and medial malleolus. No tenderness to palpation of left fifth metatarsal. Left DP/PT pulses intact. Superfical 1x1cm superficial abrasion noted to L medial malleolus. No significant appearing open wounds or oozing/bleeding. Psych Appearance: grossly normal Affect: normal affect Course Vital Signs Pulse 115 H 04/12/18 19:16 Respiratory Rate 18 04/12/18 19:16 Blood Pressure 120/69 04/12/18 19:16 Pulse Oximetry 96 04/12/18 19:16 Temperature 99.3 F 04/12/18 19:40 Temperature Source Oral 04/12/18 19:40 Pulse 115 H 04/12/18 19:16 Respiratory Rate 18 04/12/18 19:16 Blood Pressure 120/69 04/12/18 19:16 Blood Pressure Position Sitting 04/12/18 19:16 Pulse Oximetry 96 04/12/18 19:16 Oxygen Delivery Method Room Air 04/12/18 19:16 Oxygen Flow Rate 0 04/12/18 19:16 Pain Level 10 04/12/18 19:16 Procedures Orthopedic Fracture Reduction Fracture #1: Time Out Performed: Yes Side: left Fracture Reduction Location: tibia and fibula Analgesia: hematoma block (10cc of 1% lidocaine w/o epi) Technique: direct manipulation Post Reduction X-rays Demonstrate: other (no change) Post-reduction neuro exam: intact Post-reduction vascular exam: intact Splint Applied: Yes Patient Tolerated Procedure: well
--- NOTE | 2018-04-12 20:08 | DI.RAD_ITS ---
SYMPTOM/DIAGNOSIS: INJURY, PAIN, ? FX, ANKLE FX, POST REDUCTION LEFT ANKLE: Three views were obtained. There is a fracture of the distal fibula with possible associated posterior malleolar fracture. There is marked widening of the ankle mortise consistent with fracture dislocation and ligamentous disruption. No additional fractures seen. LEFT ANKLE: Post splinting views of the ankle show no gross interval change in alignment of the fracture dislocation. LEFT LEG: Four views were obtained and again show previously noted distal fibular and possible posterior malleolar fractures with disruption of the ankle mortise. No additional fractures seen involving the bones of the leg.
[2018-04-12] MEDS: Ibuprofen 600 MG TAB PO (20:38)
[2018-04-12] MEDS: oxyCODONE 5 MG TAB PO (20:38)
--- NOTE | 2018-04-12 20:43 | DI.VRAD_ITS ---
Addendum created by Sholmo Alvarez MD on 04/12/2018 8:46:00 PM EST THIS REPORT CONTAINS FINDINGS THAT MAY BE CRITICAL TO PATIENT CARE. The findings were verbally communicated via telephone conference with Dr. Epperson at 8:45 PM EST on 04/12/2018. The findings were acknowledged and understood. Initial report created on 04/12/2018 8:42:45 PM EST EXAM: XR Left Ankle Complete, 3 or more Views EXAM DATE/TIME: 04/12/2018 7:28 PM CLINICAL HISTORY: 52 years old, male; Injury or trauma; Injury history: Stairs vs ankle; Initial encounter; Fracture, traumatic; Other: Distal fibula; Left; Injury date: 04/12/2018; Injury details: Slipped at the top of the stairs TECHNIQUE: XR Left ankle 3 or more views. COMPARISON: No relevant prior studies available. FINDINGS: Bones/joints: There is a spiral fracture of the lateral malleolus with approximately half shaft width lateral displacement of the distal fracture fragment. There is widening of the medial clear space, measuring up to 1.2 cm compatible with injury to the medial collateral ligaments. There is lateral tibiotalar subluxation. There is a questionable fracture of the posterior malleolus versus a displaced fracture fragment from the lateral malleolus. Soft tissues: There is significant soft tissue swelling about the ankle. IMPRESSION: Unstable ankle fracture as manifested by a spiral lateral malleolar fracture with associated tibiotalar subluxation and injury to the medial collateral ligaments. There is question of a small posterior malleolar fracture versus a displaced fracture fragment from the lateral malleolus. Dictated and Authenticated by: Shlomo Alvarez MD. Ordering:ARMANDO Morel MD
[2018-04-12] MEDS: HYDROmorphone 2 MG/ML VIAL IM (22:25)
[2018-04-12 22:26] VITALS: BP 122/95; PULSE 87; RESP 20; O2SAT 97
--- NOTE | 2018-04-12 23:37 | NUR.NOTE ---
Nursing Note: Assisted MD with splint application. awaiting repeat XR. will continue to monitor.
--- NOTE | 2018-04-13 00:29 | DI.VRAD_ITS ---
EXAM: XR Left Tibia and Fibula, 2 Views EXAM DATE/TIME: 04/12/2018 12:11 AM CLINICAL HISTORY: 52 years old, male; Injury or trauma; Fall; Initial encounter; Sprain or strain; Ankle; Left; Injury date: 04/12/2018; Injury details: Assess lower leg for acute process; Additional info: S/P reduction left ankle TECHNIQUE: XR Left tibia and fibula 2 views COMPARISON: Ankle films performed on the same date. FINDINGS: Bones/joints: Overlying acrylic cast obscures bone detail. No significant change in previously described spiral lateral malleolar fracture and widening of the medial clear space, in keeping with unstable ankle fracture with tibiotalar subluxation and likely injury to the medial collateral ligaments. Again there is question of a posterior malleolar fracture versus displaced fragments from the lateral malleolar fracture. No other acutely displaced fracture or dislocation to the visualized tibia and fibula. Soft tissues: No significant change to the soft tissue swelling about the ankle. IMPRESSION: Interval placement of a lower leg cast without significant interval changes to the known unstable ankle fracture, as detailed above. Dictated and Authenticated by: Shlomo Alvarez MD. Ordering:PAKO Kelly MD
--- NOTE | 2018-04-13 00:31 | DI.VRAD_ITS ---
EXAM: XR Left Ankle Complete, 3 or more Views EXAM DATE/TIME: 04/12/2018 11:29 PM CLINICAL HISTORY: 52 years old, male; Injury or trauma; Injury history: S/P reduction left ankle; Follow-up exam; Fracture, traumatic; Not specified TECHNIQUE: XR Left ankle 3 or more views. COMPARISON: SC XR ANKLE LT COMPLETE 04/12/2018 7:58 PM FINDINGS: Bones/joints: Overlying acrylic cast obscures bone detail. No significant change in previously described spiral lateral malleolar fracture and widening of the medial clear space, in keeping with unstable ankle fracture with tibiotalar subluxation and likely injury to the medial collateral ligaments. Again there is question of a posterior malleolar fracture versus displaced fragments from the lateral malleolar fracture. Soft tissues: No significant change to the soft tissue swelling about the ankle. IMPRESSION: Interval placement of a lower leg cast without significant interval changes to the known unstable ankle fracture, as detailed above. Dictated and Authenticated by: Shlomo Alvarez MD. Ordering:PAKO Kelly MD
--- NOTE | 2018-04-13 01:20 | NUR.NOTE ---
Nursing Note: Plan is for patient to go by private vehicle to [facility] [place].
[2018-04-13] MEDS: oxyCODONE 5 MG TAB 10 MG PO (01:42)
== END 2018-04-13 01:55 | disposition short-term general hospital (02) ==
PROVIDERS: Emergency Provider Physician Assistant; PCP Specialist/Technologist Athletic Trainer
DX: S82.842A Displaced bimalleolar fracture of left lower leg, initial encounter for closed fracture (principal); S93.02XA Subluxation of left ankle joint, initial encounter; W10.8XXA Fall (on) (from) other stairs and steps, initial encounter
CPT/HCPCS: 99284; 73590; 73610

== ENCOUNTER 2018-06-10 13:21 | Emergency (ER) | payer MEDICAID, SELFPAY ==
[2018-06-10] VITALS (28 sets, daily range): BP systolic 120–166; BP diastolic 69–94; PULSE 107–116; RESP 16–34; TEMP 36.5–38.5; O2SAT 95–98
--- NOTE | 2018-06-10 13:28 | DI.COMBO_ITS ---
SYMPTOM/DIAGNOSIS: COUGH, RT SIDED WEAKNESS AP AND LATERAL CHEST: The exam is somewhat limited by technique and overlying clothing or sheets. The heart size is normal. The lungs are grossly clear. No infiltrate, effusion or pulmonary edema is seen. IMPRESSION: Limited exam. No acute abnormality. NONCONTRAST HEAD CT: No intracranial hemorrhage, mass or infarct is seen. There is no evidence of fracture or sinus opacification. IMPRESSION: Negative head CT. CTA HEAD AND NECK: CT angiography was performed with multi slice acquisition and multi planar and 3D reconstruction. There is no evidence of vascular occlusion,dissection or significant stenosis in the arteries of the neck or head. No significant plaque is seen in the internal carotid arteries. IMPRESSION: Negative CTA of the head and neck. No evidence of occlusion or significant stenosis.
--- NOTE | 2018-06-10 13:31 | W.ED.GENAD ---
Discharge Plan Disposition Patient Disposition: [facility] Condition: Critical Discharge Details Chief Complaint: CVA/TIA Clinical Impression: Acute CVA (cerebrovascular accident) Primary Care Provider: Zach Sanders ED Provider: Cristhian Ly Home Meds and New Rx's Prescriptions: No Action albuterol sulfate [Ventolin HFA] 60 PUFF HFA aerosol inhaler 2 puff Inhalation Q2H PRN PRNQty: 1 RF: 1 losartan 100 MG tablet 100 mg PO QAM RF: 0 Lantus Solostar U-100 Insulin 100 unit/mL (3 mL) Insulin Pen 25 units subcut HS Qty: 5 RF: 0 metformin 750 mg Tablet Extended Release 24 Hr 750 mg PO TID RF: 0 Prilosec OTC 20 mg Tablet,Delayed Release (Dr/Ec) 20 mg PO DAILY PRNRF: 0 Discharge Data Discharge Date/Time-TO BE ENTERED AT DEPARTURE: 06/10/18 16:25 Medical Decision Making 13:30--patient seen immediately on arrival. 52-year-old male with multiple medical problems including history of diabetes, hypertension, hepatitis C, here with right-sided weakness including right facial and right upper externally weakness, partial right-sided neglect, aphasic. Symptoms were identified this morning. Last known normal unknown as no one was with the patient yesterday. Currently outside thrombolytic window at this point. Unclear if within 24-hour window. Attempting to contact family. Fingerstick normal per EMS. Stroke alert was called. IV established in emergency department to allow for expedited CTA. Patient also with cough and rales on exam. Consider pneumonia. Plan to obtain chest x-ray. 14:18 --labs reviewed and troponin is elevated. Patient has acute kidney injury with creatinine of 2.4, baseline of 0.6. Will give IVF bolus. ECG was reviewed and interpreted by nc: Sinus tachycardia 107 bpm, normal axis, no STEMI, nondiagnostic. Chest x-ray interpreted by radiology: No acute abnormality evident in the chest. CT head interpreted by radiology: No evidence for acute intracranial abnormality. CTA of the head interpreted by radiology: No evidence for acute intracranial vascular abnormalities. CTA of the neck interpreted by radiology: No evidence for clinically significant stenosis. Patient reassessed and no change. When asked to raise right arm, he elevates his left leg. NIH stroke scale 19. 14:25 -- Call to [facility] to request transfer. I spoke with patient's who notes that patient was talking normally and joking last night 9p, did complain of headache yesterday afternoon, when he woke up this morning at 7-8am he could not speak. does note that he has a active history of IV heroin use. -- Will give aspirin 325mg. 15:25 -- Spoke with Dr. Najera - will accept patient. Awaiting bed placement. UDS positive for opiates, amphetamines and cocaine. --Patient noted to be stable at time of EMS transport. Somnolent but arousable to verbal stimuli and protecting airway. HPI General Mode of arrival: EMS. Date/Time Provider Initiated Documentation: 06/10/18 13:28. Limitations to Documentation: no limitations. Information obtained by: patient. HPI Narrative: 52-year-old male with multiple medical problems including history of diabetes, hypertension, hepatitis C, presents with EMS with altered mental status, right-sided deficits and concern for stroke. History and review of systems is limited secondary to altered mentation and aphasia. EMS notes that they were called to her house by family who noted that he has been confused since waking this morning. Unknown last known normal. Apparently no one was with the patient yesterday. There is history that he had headache yesterday. EMS on the patient to be a phasic, able to follow some commands, weak on the right side with right facial droop. Related Data Home Medications Medication Instructions Recorded Confirmed albuterol sulfate [Ventolin HFA] 2 puff INHALATION Q2H PRN PRN #1 12/04/16 06/10/18 inh losartan 100 mg PO QAM 10/20/17 06/10/18 Lantus Solostar U-100 Insulin 25 units SUBCUT HS #5 pn unit 10/23/17 06/10/18 metformin 750 mg PO TID 04/12/18 06/10/18 omeprazole magnesium [Prilosec OTC] 20 mg PO DAILY PRN 06/10/18 06/10/18 Previous Rx's Medication Instructions Recorded albuterol sulfate [Ventolin HFA] 2 puff INHALATION Q2H PRN PRN #1 12/04/16 inh Lantus Solostar U-100 Insulin 25 units SUBCUT HS #5 pn unit 10/23/17 Allergies Allergy/AdvReac Type Severity Reaction Status Date / Time Penicillins Allergy Severe Vomiting Unverified 10/20/17 10:39 hydrocodone AdvReac Intermediate vomiting Unverified 10/20/17 10:39 General Stated Complaint: CVA/TIA LILLIAN: 2 Review of Systems Review of Systems Unobtainable due to mental status [facility] Medical History Diabetes (Chronic) HTN (hypertension) (Chronic) Hepatitis C (Chronic) Surgical History S/P spinal surgery (Acute) Social History Smoking/Tobacco Use Status: Current every day Alcohol Intake: current Alcohol Intake frequency: a few times a month Drug use: Current Sobriety Substance use type: former substance user, marijuana and opiates Do you feel safe in your relationship?: Yes Exam Const General: cooperative and well developed Orientation: alert and awake Limitations: altered mental status HENOR Head: normocephalic and atraumatic Mouth: moist mucous membranes Eyes Conjunctivae: normal conjunctivae Sclera: normal sclerae Pupils: PERRL and pupil size bilaterally 3 Neck Neck: trachea midline and supple Resp Effort & Inspection: cough, not labored and no respiratory distress Auscultation: rales bilaterally, no rhonchi and no wheezes Cardio Jugular venous pressure: no JVD Rate: tachycardic Rhythm: regular rhythm GI Palpation: soft, not firm, no guarding, no masses, not rigid and nontender Skin General skin exam: no rashes or lesions noted Neuro General: alert and awake Cranial Nerves: PERRL and other (rt facial droop) Speech: expressive aphasia Motor: other (4/5 strength RUE) Sensory Exam: other (unable to assess sensation) Other: patient does not react to confrontation on right side Extrem General: no edema Psych Appearance: grossly normal Course Vital Signs Temperature 36.5 C 06/10/18 13:24 Pulse 107 H 06/10/18 13:24 Respiratory Rate 30 H 06/10/18 13:24 Blood Pressure 120/69 06/10/18 13:24 Pulse Oximetry 98 06/10/18 13:24 Temperature 36.5 C 06/10/18 13:24 Temperature Source Skin 06/10/18 13:24 Pulse 107 H 06/10/18 13:24 Respiratory Rate 30 H 06/10/18 13:24 Respiratory Effort Non-Labored 06/10/18 13:24 Blood Pressure 120/69 06/10/18 13:24 Blood Pressure Position Supine 06/10/18 13:24 Pulse Oximetry 98 06/10/18 13:24 Oxygen Delivery Method Room Air 06/10/18 13:24 Oxygen Flow Rate 0 06/10/18 13:24
--- NOTE | 2018-06-10 13:34 | ED.GENADUL_ITS ---
Discharge Plan Disposition Patient Disposition: [facility] Condition: Critical Discharge Details Chief Complaint: CVA/TIA Clinical Impression: Acute CVA (cerebrovascular accident) Primary Care Provider: Zach Sanders ED Provider: Cristhian Ly Home Meds and New Rx's Prescriptions: No Action albuterol sulfate [Ventolin HFA] 60 PUFF HFA aerosol inhaler 2 puff Inhalation Q2H PRN PRNQty: 1 RF: 1 losartan 100 MG tablet 100 mg PO QAM RF: 0 Lantus Solostar U-100 Insulin 100 unit/mL (3 mL) Insulin Pen 25 units subcut HS Qty: 5 RF: 0 metformin 750 mg Tablet Extended Release 24 Hr 750 mg PO TID RF: 0 Prilosec OTC 20 mg Tablet,Delayed Release (Dr/Ec) 20 mg PO DAILY PRNRF: 0 Discharge Data Discharge Date/Time-TO BE ENTERED AT DEPARTURE: 06/10/18 16:25 Medical Decision Making 13:30--patient seen immediately on arrival. 52-year-old male with multiple medical problems including history of diabetes, hypertension, hepatitis C, here with right-sided weakness including right facial and right upper externally weakness, partial right-sided neglect, aphasic. Symptoms were identified this morning. Last known normal unknown as no one was with the patient yesterday. Currently outside thrombolytic window at this point. Unclear if within 24-hour window. Attempting to contact family. Fingerstick normal per EMS. Stroke alert was called. IV established in emergency department to allow for expedited CTA. Patient also with cough and rales on exam. Consider pneumonia. Plan to obtain chest x-ray. 14:18 --labs reviewed and troponin is elevated. Patient has acute kidney injury with creatinine of 2.4, baseline of 0.6. Will give IVF bolus. ECG was reviewed and interpreted by vt: Sinus tachycardia 107 bpm, normal axis, no STEMI, nondiagnostic. Chest x-ray interpreted by radiology: No acute abnormality evident in the chest. CT head interpreted by radiology: No evidence for acute intracranial abnormality. CTA of the head interpreted by radiology: No evidence for acute intracranial vascular abnormalities. CTA of the neck interpreted by radiology: No evidence for clinically significant stenosis. Patient reassessed and no change. When asked to raise right arm, he elevates his left leg. NIH stroke scale 19. 14:25 -- Call to [facility] [place] to request transfer. I spoke with patient's who notes that patient was talking normally and joking last night 9p, did complain of headache yesterday afternoon, when he woke up this morning at 7-8am he could not speak. does note that he has a active history of IV heroin use. -- Will give aspirin 325mg. 15:25 -- Spoke with Dr. Najera - will accept patient. Awaiting bed placement. UDS positive for opiates, amphetamines and cocaine. --Patient noted to be stable at time of EMS transport. Somnolent but arousable to verbal stimuli and protecting airway. HPI General Mode of arrival: EMS . Date/Time Provider Initiated Documentation: 06/10/18 13:28 . Limitations to Documentation: no limitations . Information obtained by: patient . HPI Narrative: 52-year-old male with multiple medical problems including history of diabetes, hypertension, hepatitis C, presents with EMS with altered mental status, right-sided deficits and concern for stroke. History and review of systems is limited secondary to altered mentation and aphasia. EMS notes that they were called to her house by family who noted that he has been confused since waking this morning. Unknown last known normal. Apparently no one was with the patient yesterday. There is history that he had headache yesterday. EMS on the patient to be a phasic, able to follow some commands, weak on the right side with right facial droop. Related Data Home Medications Medication Instructions Recorded Confirmed albuterol sulfate [Ventolin HFA] 2 puff INHALATION Q2H PRN PRN #1 12/04/16 06/10/18 inh losartan 100 mg PO QAM 10/20/17 06/10/18 Lantus Solostar U-100 Insulin 25 units SUBCUT HS #5 pn unit 10/23/17 06/10/18 metformin 750 mg PO TID 04/12/18 06/10/18 omeprazole magnesium [Prilosec OTC] 20 mg PO DAILY PRN 06/10/18 06/10/18 Previous Rx's Medication Instructions Recorded albuterol sulfate [Ventolin HFA] 2 puff INHALATION Q2H PRN PRN #1 12/04/16 inh Lantus Solostar U-100 Insulin 25 units SUBCUT HS #5 pn unit 10/23/17 Allergies Allergy/AdvReac Type Severity Reaction Status Date / Time Penicillins Allergy Severe Vomiting Unverified 10/20/17 10:39 hydrocodone AdvReac Intermediate vomiting Unverified 10/20/17 10:39 General Stated Complaint: CVA/TIA LILLIAN: 2 Review of Systems Review of Systems Unobtainable due to mental status [facility] Medical History Diabetes (Chronic) HTN (hypertension) (Chronic) Hepatitis C (Chronic) Surgical History S/P spinal surgery (Acute) Social History Smoking/Tobacco Use Status: Current every day Alcohol Intake: current Alcohol Intake frequency: a few times a month Drug use: Current Sobriety Substance use type: former substance user, marijuana and opiates Do you feel safe in your relationship?: Yes Exam Const General: cooperative and well developed Orientation: alert and awake Limitations: altered mental status HENOR Head: normocephalic and atraumatic Mouth: moist mucous membranes Eyes Conjunctivae: normal conjunctivae Sclera: normal sclerae Pupils: PERRL and pupil size bilaterally 3 Neck Neck: trachea midline and supple Resp Effort & Inspection: cough, not labored and no respiratory distress Auscultation: rales bilaterally, no rhonchi and no wheezes Cardio Jugular venous pressure: no JVD Rate: tachycardic Rhythm: regular rhythm GI Palpation: soft, not firm, no guarding, no masses, not rigid and nontender Skin General skin exam: no rashes or lesions noted Neuro General: alert and awake Cranial Nerves: PERRL and other (rt facial droop) Speech: expressive aphasia Motor: other (4/5 strength RUE) Sensory Exam: other (unable to assess sensation) Other: patient does not react to confrontation on right side Extrem General: no edema Psych Appearance: grossly normal Course Vital Signs Temperature 36.5 C 06/10/18 13:24 Pulse 107 H 06/10/18 13:24 Respiratory Rate 30 H 06/10/18 13:24 Blood Pressure 120/69 06/10/18 13:24 Pulse Oximetry 98 06/10/18 13:24 Temperature 36.5 C 06/10/18 13:24 Temperature Source Skin 06/10/18 13:24 Pulse 107 H 06/10/18 13:24 Respiratory Rate 30 H 06/10/18 13:24 Respiratory Effort Non-Labored 06/10/18 13:24 Blood Pressure 120/69 06/10/18 13:24 Blood Pressure Position Supine 06/10/18 13:24 Pulse Oximetry 98 06/10/18 13:24 Oxygen Delivery Method Room Air 06/10/18 13:24 Oxygen Flow Rate 0 06/10/18 13:24
[2018-06-10 13:44] LABS: Abs Immature Grans 0.04 k/cumm (0.0-0.09); Absolute Basophil Count 0.01 k/cumm (0.0-0.2); Absolute Eosinophil Count 0.01 k/cumm (0.0-0.7); Absolute Lymphocyte Count 0.35 k/cumm (1.2-3.4); Absolute Neutrophil Count 12.28 k/cumm (1.2-6.7); Basophils % 0.1; Eosinophils % 0.1; HGB 13.7 g/dL (13.5-17.5); Immature Grans % 0.3; Lymphocytes % 2.6; Mean Corp. HGB Concentration 32.6 g/dL (32.0-36.0); Mean Corpuscular Hemoglobin 27.2 pg (27.0-33.0); Mean Corpuscular Volume 83.3 fL (80-95); Mean Platelet Volume 10.8 fL (8.0-11.0); Monocytes % 5.9; Platelet Count 179 x1000/uL (130-400); RBC 5.04 m/cumm (4.50-6.00); White Blood Cell Count 13.49 k/cumm (4.4-10.8)
[2018-06-10] MEDS: Omnipaque 350 MG/ML 100 ML BTL IJ (13:50)
[2018-06-10 13:54] LABS: ALT 26 U/L (12-78); AST 25 U/L (15-37); Albumin 2.9 g/dL (3.4-5.0); Alkaline Phosphatase 96 U/L (46-116); Anion Gap 14.8 mmol/L (3-11); BUN 40 mg/dL (7-18); Bilirubin, Total 0.7 mg/dL (0.2-1.0); CO2 25.2 mmol/L (21.0-32.0); Calcium 9.3 mg/dL (8.5-10.1); Chloride 92 mmol/L (98-107); Estimated GFR 28.57 (mL/min/1.73m2); Glucose 216 mg/dL (70-100); Potassium 3.5 mmol/L (3.5-5.1); Sodium 132 mmol/L (136-145); Total Protein 8.3 g/dL (6.4-8.2)
--- NOTE | 2018-06-10 14:07 | DI.VRAD_ITS ---
EXAM: CT Angiography Head With Contrast EXAM DATE/TIME: 06/10/2018 1:29 PM CLINICAL HISTORY: 52 years old, male; Signs and symptoms; Speech disturbance and weakness TECHNIQUE: Imaging protocol: Axial computed tomographic angiography images of the head with intravenous contrast using CT angiography protocol. 3D rendering: MIP reconstructed images were created and reviewed. COMPARISON: CT HEAD FOR STROKE PROTOCOL 06/10/2018 1:34 PM FINDINGS: Right internal carotid artery: Unremarkable. Intracranial segment is patent with no significant stenosis. No aneurysm. Right anterior cerebral artery: Unremarkable. No occlusion or significant stenosis. No aneurysm. Right middle cerebral artery: Unremarkable. No occlusion or significant stenosis. No aneurysm. Right posterior cerebral artery: Unremarkable. No occlusion or significant stenosis. No aneurysm. Right vertebral artery: Unremarkable. No occlusion or significant stenosis. No aneurysm. Left internal carotid artery: Unremarkable. Intracranial segment is patent with no significant stenosis. No aneurysm. Left anterior cerebral artery: Unremarkable. No occlusion or significant stenosis. No aneurysm. Left middle cerebral artery: Unremarkable. No occlusion or significant stenosis. No aneurysm. Left posterior cerebral artery: Unremarkable. No occlusion or significant stenosis. No aneurysm. Left vertebral artery: Unremarkable. No occlusion or significant stenosis. No aneurysm. Basilar artery: Unremarkable. No occlusion or significant stenosis. No aneurysm. IMPRESSION: No evidence for acute intracranial vascular abnormalities. EXAM: CT Angiography Neck With Contrast EXAM DATE/TIME: 06/10/2018 1:29 PM CLINICAL HISTORY: 52 years old, male; Signs and symptoms; Speech disturbance and weakness TECHNIQUE: Imaging protocol: Axial computed tomographic angiography images of the neck with intravenous contrast using CT angiography protocol. 3D rendering: MIP reconstructed images were created and reviewed. COMPARISON: CT HEAD FOR STROKE PROTOCOL 06/10/2018 1:34 PM FINDINGS: VASCULATURE: Right common carotid artery: Normal. No significant stenosis. No dissection or occlusion. Right internal carotid artery: Normal. Extracranial segment is patent with no significant stenosis. No dissection or occlusion. Right external carotid artery: Normal. No occlusion or significant stenosis. Right vertebral artery: Normal. No significant stenosis. No dissection or occlusion. Left common carotid artery: Normal. No significant stenosis. No dissection or occlusion. Left internal carotid artery: Normal. Extracranial segment is patent with no significant stenosis. No dissection or occlusion. Left external carotid artery: Normal. No occlusion or significant stenosis. Left vertebral artery: Normal. No significant stenosis. No dissection or occlusion. Other vasculature: Respiratory motion slightly limits the exam. NECK: Bones/joints: No acute fracture. Soft tissues: Normal. No significant soft tissue swelling. IMPRESSION: No evidence for a clinically significant stenosis. COMMENT: Preliminary interpretation is based on receipt of 391 image(s). A final report will be issued subsequently. Reference per NASCET criteria for degree of stenosis: Mild: less than 50% stenosis. Moderate: 50-69% stenosis. Severe: 70-94% stenosis. Near occlusion: 95-99% stenosis. Dictated and Authenticated by: Kaylee Coy MD. Ordering:ELIZABETH Morrow MD
--- NOTE | 2018-06-10 14:09 | DI.VRAD_ITS ---
EXAM: CT Head Without Contrast EXAM DATE/TIME: 06/10/2018 1:29 PM CLINICAL HISTORY: 52 years old, male; Signs and symptoms; Weakness, extremity; Right TECHNIQUE: Imaging protocol: Axial computed tomography images of the head/brain without contrast. Coronal and sagittal reformatted images were created and reviewed. COMPARISON: No relevant prior studies available. FINDINGS: Brain: Normal. No hemorrhage. No significant white matter disease. No edema. Ventricles: Normal. No ventriculomegaly. Bones/joints: Unremarkable. No acute fracture. Sinuses: Visualized sinuses are unremarkable. No acute sinusitis. Mastoid air cells: Visualized mastoid air cells are unremarkable. No mastoid effusion. Soft tissues: Unremarkable. Other findings: Odontogenic disease noted. IMPRESSION: No evidence for acute intracranial abnormality. COMMENT: Preliminary interpretation is based on receipt of 364 image(s). A final report will be issued subsequently. Dictated and Authenticated by: Kaylee Coy MD. Ordering:ELIZABETH Morrow MD
--- NOTE | 2018-06-10 14:10 | DI.VRAD_ITS ---
EXAM: XR Chest, 2 Views EXAM DATE/TIME: 06/10/2018 1:31 PM CLINICAL HISTORY: 52 years old, male; Signs and symptoms; Cough; Patient HX: PT unresponsive TECHNIQUE: Imaging protocol: XR of the chest, 2 views. COMPARISON: CR CHEST 2 VIEWS PA,LAT 10/20/2017 12:15 PM FINDINGS: Lungs: Unremarkable. No consolidation. Pleural space: Unremarkable. No pleural effusion. No pneumothorax. Heart/Mediastinum: Unremarkable. No cardiomegaly. Bones/joints: Unremarkable. IMPRESSION: No acute abnormality evident in the chest. COMMENT: Preliminary interpretation is based on receipt of 2 image(s). A final report will be issued subsequently. Dictated and Authenticated by: Kaylee Coy MD. Ordering:ELIZABETH Morrow MD
[2018-06-10] MEDS: Normal Saline 1,000 ML 125 ML IV (14:20)
[2018-06-10] MEDS: Lactated Ringers 1,000 ML 1000 ML IV (14:43)
[2018-06-10 14:46] LABS: Bilirubin Negative (Negative); Blood Moderate (Negative); Clarity Clear; Glucose 500 mg/dL (Negative); Ketones Trace mg/dL (Negative); Leukocyte Esterase Negative (Negative); Nitrite Negative (Negative); Specific Gravity 1.015 (1.005-1.025); pH 5.5 (5-8)
[2018-06-10 14:56] LABS: *AMPHETAMINES SCREEN URINE POSITIVE (Negative); *BARBITURATES SCREEN URINE Negative (Negative); *BENZODIAZEPINES SCREEN URINE Negative (Negative); Cannabinoids THC Negative (Negative); Cocaine Screen,Urine POSITIVE (Negative); METHADONE URINE SCREEN Negative (Negative); OPIATES URINE SCREEN POSITIVE (Negative)
[2018-06-10 14:57] LABS: Tricyclic Antidepressants Negative (Negative)
[2018-06-10 15:04] LABS: Epithelial Cells Rare HPF (Negative); Other Cells Few Transitional (Negative); WBC 0-2 HPF (0-5)
[2018-06-10 15:05] LABS: Bacteria Few HPF (Negative); Crystals Moderate Amorphous HPF (Negative); Mucus Negative (Negative)
[2018-06-10 15:07] LABS: C & S Indicated? No
[2018-06-10] MEDS: Aspirin 325 MG TAB PO (15:36)
[2018-06-10] MEDS: Lactated Ringers 1,000 ML 125 ML IV (16:21)
[2018-06-10 17:17] LABS: Creatine Kinase 97 U/L (39-308)
== END 2018-06-10 16:25 | disposition short-term general hospital (02) ==
LOC: ER 14:14
PROVIDERS: Emergency Provider Student in an Organized Health Care Education/Training Program; PCP Specialist/Technologist Athletic Trainer
DX: I63.9 Cerebral infarction, unspecified (principal); R05 Cough; F19.10 Other psychoactive substance abuse, uncomplicated; I10 Essential (primary) hypertension; E11.9 Type 2 diabetes mellitus without complications; Z79.84 Long term (current) use of oral hypoglycemic drugs
CPT/HCPCS: 36415; 36416; 70496; 70498; 80053; 80307; 82550; 82945; 82962; 89050; 89051; 96360; 96361; 99285; 70450; 71046; 81003; 81015; 83735; 84157; 84484; 85025; J3490

== ENCOUNTER 2018-08-02 14:47 | Inpatient (IN) | payer MEDICAID, SELFPAY ==
[2018-08-02 14:54] VITALS: BP 150/57; PULSE 99; RESP 20; TEMP 36.1; O2SAT 93
--- NOTE | 2018-08-02 15:54 | CM.SBPSYCH ---
- If Service Date Differs Date of service: 08/02/18 Time of Service: 15:54 SB Psychosocial/Act.Assessment - Hospital Admission Admission Date: 08/02/18 Admission From:: [facility] Diagnosis:: CVA, MSSA bacterimia - Swing Bed Admission Swing Bed Admit Date:: 08/02/18 Swing Bed Level of Care: Level 1/SNF - Social Supports PREVIOUS FUNCTIONAL STATUS/SOCIAL/FAMILY SUPPORTS:: Mio is a 52 year old male admitted from [facility] after acute stay for LMCA infarct, MSSA bacteremia, aortic valve endocardititis, septic emboli, to the brain, c/b abscesses. DVT right uper extremitie r/t picc line. Mio has not worked for many years per his ex spouse and main support person Rekha. Mio has two step children that are grown and out of the home. Mio lives with Rekha in [place], [place]. Per Rekha Mio has struggled with substance abuse and chronic health disease for many years. - Prior to Admission Living Arrangements/Environment Prior to Admission:: Prior to admission at [facility] Mio lived with Arline at home, he was independent with ADL's and mobility. He did not have any equipment prior to CVA and hospitalization. 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 - Work History Employment Status:: unemployed - : No - [employer] Active Latter Day Member:: No Latter Day Affliation: None - Advance Directives for Healthcare Advance Directives for Healthcare: Advance Directives Advance Directive Agent: Arline Stevenson - Interests Hobbies:: Music 80's rock TV/Movies:: [employer] - Present Functional Status Physical Abilities:: right sided weakness, unable to ambulate with max assitance Cognitive:: Status post CVA, expresive aphasia, communication has improved per family Communication:: Expresive aphasia Sensory Systems: diminished Behavior:: pleasent - Medical History PAST MEDICAL HISTORY/PAST SURGICAL HISTORY:: Medical: Opioid dependence and current agonist therapy, Hypertension, ETOH Abuse,Smoker, GERD, Chronic Hep C, Chronic back pain General Health:: fair - Admission Data Reason for Swing Bed Admission:: IV antibiotics to be completed on 08/23/18. PT and OT due to recent CVA. Plan for SB1 x 2 weeks then transition to rehab facility for continued rehab prior to returning home. LTM and SSI needed. Discharge Plan:: Mio will need referral to SNF facility once his antibiotics are complete. Plan to send referral to Health and rehad at the request of his DPOA Arline. Assessment: Mio is pleasent when CM enters the room he states he is thankful for Arline that she saved his life. He states his goals are to get stronger and out of bed. He is willing to partcpate in PT/OT to meet his goals. Arline would like him to have 30 days of rehab it was her impression that he would recieve that here at [facility]. CM reviewed the plan with Pt and DPOA that the intention while in the short term SB1 is to complete his antibioitc and send him to a rehab facillity for the remianing two weeks for therapy. Gear Nicker: Brooklyn Barker Date Assessment was completed:: 08/02/18
--- NOTE | 2018-08-02 16:06 | W.PM.HP.N ---
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 (CVA): Current visit: Yes Status: Acute (5) Diabetes mellitus: Current visit: No Status: Chronic (6) GERD (gastroesophageal reflux disease): Current visit: No Status: Chronic (7) Hypertension: Current visit: No Status: Chronic (8) Hx of deep venous thrombosis: Current visit: Yes Status: Acute (9) Right rotator cuff tear: Current visit: Yes Status: Acute (10) Brain abscess: Current visit: Yes Status: Acute (11) Depression: Current visit: Yes Status: Chronic (12) Opiate dependence: Current visit: Yes Status: Acute (13) Chronic pain: Current visit: Yes Status: Chronic (14) History of fracture of left ankle: Current visit: Yes Status: Acute (15) Tinea corporis: Current visit: Yes Status: Acute (16) Aortic insufficiency: Current visit: Yes Status: Acute PFSH Social History Smoking/Tobacco Use Status: Current every day Alcohol Intake: current Alcohol Intake frequency: a few times a month Drug use: Current Sobriety Substance use type: former substance user, marijuana and opiates Do you feel safe in your relationship?: Yes Meds Home Medications Medication Instructions Recorded Confirmed Type albuterol sulfate [Ventolin HFA] 2 puff INHALATION Q2H PRN PRN #1 12/04/16 06/10/18 Rx inh losartan 100 mg PO QAM 10/20/17 06/10/18 History Lantus Solostar U-100 Insulin 25 units SUBCUT HS #5 pn unit 10/23/17 06/10/18 Rx metformin 750 mg PO TID 04/12/18 06/10/18 History omeprazole magnesium [Prilosec OTC] 20 mg PO DAILY PRN 06/10/18 06/10/18 History Allergies Allergy/AdvReac Type Severity Reaction Status Date / Time Penicillins Allergy Severe Vomiting Unverified 10/20/17 10:39 hydrocodone AdvReac Intermediate vomiting Unverified 10/20/17 10:39 Results Last Vital Signs Temp 36.1 C L 08/02/18 14:54 Pulse 99 H 08/02/18 14:54 Resp 20 08/02/18 14:54 BP 150/57 H 08/02/18 14:54 Pulse Ox 93 L 08/02/18 14:54
--- NOTE | 2018-08-02 16:16 | W.PM.HP.N ---
Date of service: 08/02/18 Time of Service: 16:16 Assessment and Plan (1) MSSA (methicillin susceptible Staphylococcus aureus) septicemia: Current visit: Yes Status: Acute Stable on ceftriaxone, dosed for [employer] infections. Treatment through August 23 because of his aortic valve endocarditis and intracranial abscesses. Weekly labs with CBC and CMP and CRP. Monitor for complications of therapy. (2) Brain abscess: Current visit: Yes Status: Acute Antibiotic treatment as above. Recommendations are for follow-up MRI of the brain with and without contrast at the end of this month. This can be arranged as an outpatient. (3) Aortic valve endocarditis: Current visit: Yes Status: Acute Antibiotics as above. Recommendations are for transthoracic echocardiogram at the end of this month as an outpatient. (4) Aortic insufficiency: Current visit: Yes Status: Acute Currently no symptoms with present afterload reduction. Recommendation from cardiology and cardiothoracic surgery for avoiding beta-blockers due to decompensation during acute hospitalization with acute pulmonary edema requiring dilatory support. Recommendations are for transthoracic echocardiogram at the end of the month. (5) Diabetes mellitus: Current visit: Yes Status: Chronic Recently, per 's report, doing well with just long-acting insulin. Having hypoglycemic episodes with scheduled meal associated short acting insulin thus I will continue Lantus at his current dose and use sliding scale for meals until we get a sense of how his blood sugars are fluctuating. (6) Hypertension: Current visit: Yes Status: Chronic Per transfer notes, blood pressures have been stable with his current combination of COLIN inhibitor, diuretic, hydralazine. Continue to monitor and adjust based on blood pressure response. (7) GERD (gastroesophageal reflux disease): Current visit: Yes Status: Chronic Chronic problem that seems to be well-controlled with current PPI. No changes planned. (8) Opiate dependence: Current visit: Yes Status: Chronic Recently transition to Suboxone with plan to uptitrate dose to 4 mg twice daily. He reports in the past he was on Suboxone for opiate dependence at 8 mg daily, occasionally an additional 4 mg depending upon cravings. We will see how he does with 4 mg twice daily. This might be consolidated into a single 8 mg dose depending upon how he does with regard to opiate cravings and pain. (9) Chronic pain: Current visit: Yes Status: Chronic Had been on methadone, transition to Suboxone in anticipation of outpatient treatment for his chronic opiate dependence. Pain control by his report has been adequate and we will see how he does with Suboxone 4 mg twice daily and as needed acetaminophen. (10) History of fracture of left ankle: Current visit: Yes Status: Acute Complicates his rehab with right hemiparesis and left ankle fracture. Per notes on transfer can weight-bear on the left with postop boot. I am not sure how much longer he needs to wear this.. Will consult with orthopedics. (11) Tinea corporis: Current visit: Yes Status: Acute Left ankle looks mostly postinflammatory at this point. Will continue with topical antifungal for this area as well as the bottom of his feet for duration of time here as I think there is little harm in continuing with miconazole. (12) Depression: Current visit: Yes Status: Chronic Per transfer notes declined SSRI. He is on duloxetine for pain and mood. The dose can be titrated up for either reason. For now see how he does on his current dose. (13) Right rotator cuff tear: Current visit: Yes Status: Acute Sling for comfort. PT to work on range of motion. Pain management as above. (14) Hx of deep venous thrombosis: Current visit: Yes Status: Acute Right upper extremity DVT by history associated with PICC line which was removed. Not felt to be a candidate for full anticoagulation because of his brain abscesses/septic emboli. Okay for use of prophylactic anticoagulation. This far out from his event I think it is safe to transition from heparin to Lovenox for DVT prophylaxis. Renal function back to normal based on recent labs. (15) 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): Current visit: Yes Status: Acute Continue to work with PT and OT. 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 Hopefully speech will continue to improve with time. (17) Splenic abscess: Current visit: Yes Status: Acute Antibiotic course as above. Recommended to have CT of the abdomen and pelvis at the end of the month to follow-up on splenic lesions. History of Present Illness Chief Complaint: Transfer from [facility] to complete IV antibiotics for MSSA bacteremia Narrative: 52-year-old man with complex recent past history that began in late May of this year when he had acute onset of right-sided weakness and aphasia, found to have a left MCA infarct secondary to methicillin sensitive bacteremia with brain emboli and infarcts, aortic valve endocarditis with moderate to severe aortic insufficiency as a consequence, splenic infarcts. Hospital course detailed in the transfer records and summarized herein: Found at home on 421 right-sided weakness and aphasia. Emergent CT scan here showed MCA infarct and he was transferred to [facility]. Culture subsequently grew MSSA. Transesophageal echo showed endocarditis the aortic valve. Broad-spectrum antibiotics were transitioned to nafcillin and then ceftriaxone due to worsening renal function. He was dosed at [employer] dosing of ceftriaxone because of presumed brain abscesses. It is recommended that he continue IV ceftriaxone through August 23, 2018 with weekly monitoring of CBC, CMP and CRP. He is to have a follow-up MRI of the brain at the end of this month as well as echocardiogram and CT of the abdomen to follow-up on splenic lesions. He had respiratory failure requiring intubation twice, the second episode related to acute pulmonary edema and heart failure responsive to diuresis and more aggressive afterload reduction, and avoidance of beta-betty. He had right hemiparesis and dysarthria and dysphagia from his presumed septic emboli to brain. He did not have any seizures but is on Keppra prophylactically. He had to have an NG tube temporarily but recovered sufficiently to take oral intake, normal food and consistency, sufficient to maintain nutrition and without aspiration. It is recommended that his NG tube be allowed to mature but can be removed August 15 or later. He had serial MRIs of his brain with sequential decrease in the size of abscesses and is recommended he have an MRI brain with and without contrast around August 15. He had hypoxic respiratory failure requiring intubation twice. After his final ventilation course he was successfully extubated to high flow nasal cannula and then weaned to room air where he has not had further problems with continued use of diuretics and maintaining him euvolemic and blood pressure under control. He has type 2 diabetes that was managed with long-acting and short acting insulin. Recently he has had low blood sugars and short acting insulin has been tapered down. He had a type II demand non-ST elevation DC with no residual problems. He had DVT in the right upper extremity related to PICC line. He was not felt to be a candidate for full anticoagulation because of his brain abscesses and infarct. He has been cleared for DVT prophylaxis. He had fractured his left ankle a few weeks before his presentation. He was cleared for weightbearing with postop boot by orthopedics at [facility]. He developed a rash on his ankle felt to be tinea and is on topical treatment. He was found to be depressed, psychiatry consultation recommended Zoloft but he refused. He has been placed on duloxetine for pain and antidepressant effects. He had acute right shoulder pain and was found to have rotator cuff partial tear on MRI. He wears a sling because of his hemiparesis and for pain relief. He was found to have hepatitis C with a viral load of [phone] and is untreated at this time. He had anemia which has been stable. He had acute kidney injury which has normalized. He had hypernatremia that was corrected with fluids and treatment of his underlying illnesses. Medications on transfer ceftriaxone 2 g every 12 hours through August 23 Docusate sodium 100 mg twice daily Duloxetine 30 mg daily Furosemide 40 mg daily Hydralazine 50 mg 3 times daily Insulin lispro 3 to 12 units pre-meal depending upon blood sugar Keppra 500 mg twice daily Lisinopril 40 mg daily Melatonin 6 mg at at bedtime Miconazole 2% cream topically twice daily Pantoprazole 40 mg daily Sennosides 17.6 mg twice daily Gabapentin 300 mg 3 times daily Acetaminophen 500 mg 2000 mg as needed twice daily Lantus 35 units at at bedtime MiraLAX 17 g daily Review of Systems Review of Systems Pain level 4/10 related to right shoulder and right leg. No double vision. Denies trouble swallowing. Acknowledges he has slowness with his thinking and processing as well as finding words. Denies shortness of breath, cough, chest discomfort. Denies nausea. Denies abdominal pain. Has had some loose stools. Denies dysuria. Denies incontinence. Has tremor of his right arm and leg, worse when he gets tired. Some difficulties sustaining sleep. PFSH Social History Smoking/Tobacco Use Status: Former Tobacco Use Alcohol Intake: former Drug use: Current Sobriety Substance use type: former substance user, marijuana and opiates Caregiver/Support person: Yes Household members: spouse current occupation: Disabled Do you feel safe in your relationship?: Yes Meds Home Medications Medication Instructions Recorded Confirmed Type albuterol sulfate [Ventolin HFA] 2 puff INHALATION Q2H PRN PRN #1 12/04/16 06/10/18 Rx inh losartan 100 mg PO QAM 10/20/17 06/10/18 History Lantus Solostar U-100 Insulin 25 units SUBCUT HS #5 pn unit 10/23/17 06/10/18 Rx metformin 750 mg PO TID 04/12/18 06/10/18 History omeprazole magnesium [Prilosec OTC] 20 mg PO DAILY PRN 06/10/18 06/10/18 History Allergies Allergy/AdvReac Type Severity Reaction Status Date / Time Penicillins Allergy Severe Vomiting Unverified 10/20/17 10:39 hydrocodone AdvReac Intermediate vomiting Unverified 10/20/17 10:39 Exam Narrative Exam Narrative: Manner appearing older than his chronologic age in no acute distress with lower right facial drooping and dysarthria and a little bit of word finding hesitancy. Skin exam with faint erythema medial side of the left ankle and thick adherent skin on the bottom of both feet, bruises on the abdomen from his heparin injections that are small, but no other concerning lesions and no petechiae. Pupils are 2 mm equal and reactive. Extraocular movements intact without reported diplopia or nystagmus. He can open his mouth well, tongue deviates to the right on protrusion, reasonable rapid altered movement of the tongue. Uvula is midline. No JVD. No cervical adenopathy. No carotid bruits heard. Lungs with a few scattered basilar crackles no wheeze or rub. Heart rhythm regular, late systolic high-pitched murmur at the lower left sternal border and early diastolic murmur in the same area, no S3 or S4. Abdomen with gastrostomy tube in the left midabdomen, exit site clean with no discharge or redness. Mild tenderness to palpation diffusely in the upper abdomen with no guarding rebound or mass appreciated. A little bit of erythema on the scrotum no ulcers or vesicles. Mild presacral erythema with no skin breakdown. A linear abrasion on his right hip line with skin intact. Good pulses in the feet with no pitting edema. Thick skin on the soles as mentioned above. He has his right arm in a sling, can flex at the elbow and move his fingers with weak supervisor byproducts. Has limited range of motion of the shoulder secondary to pain. He has hip flexors on the right that are weak, pumps his ankles well with weakness on the right. 2+ DTRs at the left knee 1+ at the right 2+ at the left elbow difficult to assess on the right secondary to sling. Cold touch sensation is enhanced in the right lower extremity compared to left. He sits up with assistance, can hold himself upright without assistance. He knows he is in [facility] and why. Speech is dysarthric, a little bit of word finding hesitancy. Responds appropriately to questions. He has intention tremor with the right arm and right leg, not present at rest. Results Lab work from today at [facility] WBC 9.4 hemoglobin 8.6 hematocrit 26.7 platelet count 424,000. Sodium 140 potassium 4.2 chloride 101 CO2 22 BUN 35 creatinine 1.07. Last Vital Signs Temp 36.1 C L 08/02/18 14:54 Pulse 99 H 08/02/18 14:54 Resp 20 08/02/18 14:54 BP 150/57 H 08/02/18 14:54 Pulse Ox 93 L 08/02/18 14:54
--- NOTE | 2018-08-02 16:25 | HPE_ITS ---
Date of service: 08/02/18 Time of Service: 16:16 Assessment and Plan (1) MSSA (methicillin susceptible Staphylococcus aureus) septicemia: Current visit: Yes Status: Acute Stable on ceftriaxone, dosed for [employer] infections. Treatment through August 23 because of his aortic valve endocarditis and intracranial abscesses. Weekly labs with CBC and CMP and CRP. Monitor for complications of therapy. (2) Brain abscess: Current visit: Yes Status: Acute Antibiotic treatment as above. Recommendations are for follow-up MRI of the brain with and without contrast at the end of this month. This can be arranged as an outpatient. (3) Aortic valve endocarditis: Current visit: Yes Status: Acute Antibiotics as above. Recommendations are for transthoracic echocardio gram at the end of this month as an outpatient. (4) Aortic insufficiency: Current visit: Yes Status: Acute Currently no symptoms with present afterload reduction. Recommendation from cardiology and cardiothoracic surgery for avoiding beta-blockers due to decompensation during acute hospitalization with acute pulmonary edema requiring dilatory support. Recommendations are for transthoracic echocardiogram at the end of the month. (5) Diabetes mellitus: Current visit: Yes Status: Chronic Recently, per 's report, doing well with just long-acting insulin. Having hypoglycemic episodes with scheduled meal associated short acting insulin thus I will continue Lantus at his current dose and use sliding scale for meals until we get a sense of how his blood sugars are fluctuating. (6) Hypertension: Current visit: Yes Status: Chronic Per transfer notes, blood pressures have been stable with his current combination of COLIN inhibitor, diuretic, hydralazine. Continue to monitor and adjust based on blood pressure response. (7) GERD (gastroesophageal reflux disease): Current visit: Yes Status: Chronic Chronic problem that seems to be well-controlled with current PPI. No changes planned. (8) Opiate dependence: Current visit: Yes Status: Chronic Recently transition to Suboxone with plan to uptitrate dose to 4 mg twice daily. He reports in the past he was on Suboxone for opiate dependence at 8 mg daily, occasionally an additional 4 mg depending upon cravings. We will see how he does with 4 mg twice daily. This might be consolidated into a single 8 mg dose depending upon how he does with regard to opiate cravings and pain. (9) Chronic pain: Current visit: Yes Status: Chronic Had been on methadone, transition to Suboxone in anticipation of outpatient treatment for his chronic opiate dependence. Pain control by his rep ort has been adequate and we will see how he does with Suboxone 4 mg twice daily and as needed acetaminophen. (10) History of fracture of left ankle: Current visit: Yes Status: Acute Complicates his rehab with right hemiparesis and left ankle fracture. Per notes on transfer can weight-bear on the left with postop boot. I am not sure how much longer he needs to wear this.. Will consult with orthopedics. (11) Tinea corporis: Current visit: Yes Status: Acute Left ankle looks mostly postinflammatory at this point. Will continue with topical antifungal for this area as well as the bottom of his feet for duration of time here as I think there is little harm in continuing with miconazole. (12) Depression: Current visit: Yes Status: Chronic Per transfer notes declined SSRI. He is on duloxetine for pain and mood. The dose can be titrated up for either reason. For now see how he does on his current dose. (13) Right rotator cuff tear: Current visit: Yes Status: Acute Sling for comfort. PT to work on range of motion. Pain management as above. (14) Hx of deep venous thrombosis: Current visit: Yes Status: Acute Right upper extremity DVT by history associated with PICC line which was removed. Not felt to be a candidate for full anticoagulation because of his brain abscesses/septic emboli. Okay for use of prophylactic anticoagulation. This far out from his event I think it is safe to transition from heparin to Lovenox for DVT prophylaxis. Renal function back to normal based on recent labs. (15) 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): Current visit: Yes Status: Acute Continue to work with PT and OT. 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 Hopefully speech will continue to improve with time. (17) Splenic abscess: Current visit: Yes Status: Acute Antibiotic course as above. Recommended to have CT of the abdomen and pelvis at the end of the month to follow-up on splenic lesions. History of Present Illness Chief Complaint: Transfer from [facility] [place] to complete IV antibiotics for MSSA bacteremia Narrative: 52-year-old man with complex recent past history that began in late May of this year when he had acute onset of right-sided weakness and aphasia, found to have a left MCA infarct secondary to methicillin sensitive bacteremia with brain emboli and infarcts, aortic valve endocarditis with moderate to severe aortic insufficiency as a consequence, splenic infarcts. Hospital course detailed in the transfer records and summarized herein: Found at home on 421 right-sided weakness and aphasia. Emergent CT scan here showed MCA infarct and he was transferred to [facility] [place]. Culture subsequently grew MSSA. Transesophageal echo showed endocarditis the aortic valve. Broad-spectrum antibiotics were transitioned to nafcillin and then ceftriaxone due to worsening renal function. He was dosed at [employer] dosing of ceftriaxone because of presumed brain abscesses. It is recommended that he continue IV ceftriaxone through August 23, 2018 with weekly monitoring of CBC, CMP and CRP. He is to have a follow-up MRI of the brain at the end of this month as well as echocardiogram and CT of the abdomen to follow-up on splenic lesions. He had respiratory failure requiring intubation twice, the second episode related to acute pulmonary edema and heart failure responsive to diuresis and more aggressive afterload reduction, and avoidance of beta-betty. He had right hemiparesis and dysarthria and dysphagia from his presumed septic emboli to brain. He did not have any seizures but is on Keppra pr ophylactically. He had to have an NG tube temporarily but recovered sufficiently to take oral intake, normal food and consistency, sufficient to maintain nutrition and without aspiration. It is recommended that his NG tube be allowed to mature but can be removed August 15 or later. He had serial MRIs of his brain with sequential decrease in the size of abscesses and is recommended he have an MRI brain with and without contrast around August 15. He had hypoxic respiratory failure requiring intubation twice. After his final ventilation course he was successfully extubated to high flow nasal cannula and then weaned to room air where he has not had further problems with continued use of diuretics and maintaining him euvolemic and blood pressure under control. He has type 2 diabetes that was managed with long-acting and short acting insulin. Recently he has had low blood sugars and short acting insulin has been tapered down. He had a type II demand non-ST elevation [place] with no residual problems. He had DVT in the right upper extremity related to PICC line. He was not felt to be a candidate for full anticoagulation because of his brain abscesses and infarct. He has been cleared for DVT prophylaxis. He had fractured his left ankle a few weeks before his presentation. He was cleared for weightbearing with postop boot by orthopedics at [facility] [place]. He developed a rash on his ankle felt to be tinea and is on topical treatment. He was found to be depressed, psychiatry consultation recommended Zoloft but he refused. He has been placed on duloxetine for pain and antidepressant effects. He had acute right shoulder pain and was found to have rotator cuff partial tear on MRI. He wears a sling because of his hemiparesis and for pain relief. He was found to have hepatitis C with a viral load of [id number] and is untreated at this time. He had anemia which has been stable. He had acute kidney injury which has normalized. He had hypernatremia that was corrected with fluids and treatment of his underlying illnesses. Medications on transfer ceftriaxone 2 g every 12 hours through August 23 Docusate sodium 100 mg twice daily Duloxetine 30 mg daily Furosemide 40 mg daily Hydralazine 50 mg 3 times daily Insulin lispro 3 to 12 units pre-meal depending upon blood sugar Keppra 500 mg twice daily Lisinopril 40 mg daily Melatonin 6 mg at at bedtime Miconazole 2% cream topically twice daily Pantoprazole 40 mg daily Sennosides 17.6 mg twice daily Gabapentin 300 mg 3 times daily Acetaminophen 500 mg 2000 mg as needed twice daily Lantus 35 units at at bedtime MiraLAX 17 g daily Review of Systems Review of Systems Pain level 4/10 related to right shoulder and right leg. No double vision. Denies trouble swallowing. Acknowledges he has slowness with his thinking and processing as well as finding words. Denies shortness of breath, cough, chest discomfort. Denies nausea. Denies abdominal pain. Has had some loose stools. Denies dysuria. Denies incontinence. Has tremor of his right arm and leg, worse when he gets tired. Some difficulties sustaining sleep. PFSH Social History Smoking/Tobacco Use Status: Former Tobacco Use Alcohol Intake: former Drug use: Current Sobriety Substance use type: former substance user, marijuana and opiates Caregiver/Support person: Yes Household members: spouse current occupation: Disabled Do you feel safe in your relationship?: Yes Meds Home Medications Medication Instructions Recorded Confirmed Type albuterol sulfate [Ventolin HFA] 2 puff INHALATION Q2H PRN PRN #1 12/04/16 06/10/18 Rx inh losartan 100 mg PO QAM 10/20/17 06/10/18 History Lantus Solostar U-100 Insulin 25 units SUBCUT HS #5 pn unit 10/23/17 06/10/18 Rx metformin 750 mg PO TID 04/12/18 06/10/18 History omeprazole magnesium [Prilosec OTC] 20 mg PO DAILY PRN 06/10/18 06/10/18 History Allergies Allergy/AdvReac Type Severity Reaction Status Date / Time Penicillins Allergy Severe Vomiting Unverified 10/20/17 10:39 hydrocodone AdvReac Intermediate vomiting Unverified 10/20/17 10:39 Exam Narrative Exam Narrative: Manner appearing older than his chronologic age in no acute distress with lower right facial drooping and dysarthria and a little bit of word finding hesitancy. Skin exam with faint erythema medial side of the left ankle and thick adherent skin on the bottom of both feet, bruises on the abdomen from his heparin injections that are small, but no other concerning lesions and no petechiae. Pupils are 2 mm equal and reactive. Extraocular movements intact without reported diplopia or nystagmus. He can open his mouth well, tongue deviates to the right on protrusion, reasonable rapid altered movement of the tongue. Uvula is midline. No JVD. No cervical adenopathy. No carotid bruits heard. Lungs with a few scattered basilar crackles no wheeze or rub. Heart rhythm regular, late systolic high-pitched murmur at the lower left sternal border and early diastolic murmur in the same area, no S3 or S4. Abdomen with gastrostomy tube in the left midabdomen, exit site clean with no discharge or redness. Mild tenderness to palpation diffusely in the upper abdomen with no guarding rebound or mass appreciated. A little bit of erythema on the scrotum no ulcers or vesicles. Mild presacral erythema with no skin breakdown. A linear abrasion on his right hip line with skin intact. Good pulses in the feet with no pitting edema. Thick skin on the soles as mentioned above. 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 Has limited range of motion of the shoulder secondary to pain. He has hip flexors on the right that are weak, pumps his ankles well with weakness on the right. 2+ DTRs at the left knee 1+ at the right 2+ at the left elbow difficult to assess on the right secondary to sling. Cold touch sensation is enhanced in the right lower extremity compared to left. He sits up with assistance, can hold himself upright without assistance. He knows he is in [facility] and why. Speech is dysarthric, a little bit of word finding hesitancy. Responds appropriately to questions. He has intention tremor with the right arm and right leg, not present at rest. Results Lab work from today at [facility] [place] WBC 9.4 hemoglobin 8.6 hematocrit 26.7 platelet count 424,000. Sodium 140 potassium 4.2 chloride 101 CO2 22 BUN 35 creatinine 1.07. Last Vital Signs Temp 36.1 C L 08/02/18 14:54 Pulse 99 H 08/02/18 14:54 Resp 20 08/02/18 14:54 BP 150/57 H 08/02/18 14:54 Pulse Ox 93 L 08/02/18 14:54
--- NOTE | 2018-08-02 16:27 | CMSA_ITS ---
- If Service Date Differs Date of service: 08/02/18 Time of Service: 15:54 SB Psychosocial/Act.Assessment - Hospital Admission Admission Date: 08/02/18 Admission From:: [facility] Diagnosis:: CVA, MSSA bacterimia - Swing Bed Admission Swing Bed Admit Date:: 08/02/18 Swing Bed Level of Care: Level 1/SNF - Social Supports PREVIOUS FUNCTIONAL STATUS/SOCIAL/FAMILY SUPPORTS:: Mio is a 52 year old male admitted from [facility] after acute stay for LMCA infarct, MSSA bacteremia, aortic valve endocardititis, septic emboli, to the brain, c/b abscesses. DVT right uper extremitie r/t picc line. Mio has not worked for many years per his ex spouse and main support person Rkeha. Mio has two step children that are grown and out of the home. Mio lives with Rekha in [place], [place]. Per Rekha Mio has struggled with substance abuse and chronic health disease for many years. - Prior to Admission Living Arrangements/Environment Prior to Admission:: Prior to admission at [facility] Mio lived with Arline at home, he was independent with ADL's and mobility. He did not have any equipment prior to CVA and hospitalization. 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 - Work History Employment Status:: unemployed - : No - Christianity Active Tenriism Member:: No Tenriism Affliation: None - Advance Directives for Healthcare Advance Directives for Healthcare: Advance Directives Advance Directive Agent: Arline Stevenson - Interests Hobbies:: Music 80's rock TV/Movies:: [place] [employer] - Present Functional Status Physical Abilities:: right sided weakness, unable to ambulate with max assitance Cognitive:: Status post CVA, expresive aphasia, communication has improved per family Communication:: Expresive aphasia Sensory Systems: diminished Behavior:: pleasent - Medical History PAST MEDICAL HISTORY/PAST SURGICAL HISTORY:: Medical: Opioid dependence and current agonist therapy, Hypertension, ETOH Abuse,Smoker, GERD, Chronic Hep C, Chronic back pain General Health:: fair - Admission Data Reason for Swing Bed Admission:: IV antibiotics to be completed on 08/23/18. PT and OT due to recent CVA. Plan for SB1 x 2 weeks then transition to rehab facility for continued rehab prior to returning home. LTM and SSI needed. Discharge Plan:: Mio will need referral to SNF facility once his antibiotics are complete. Plan to send referral to Health and rehad at the request of his DPOA Arline. Assessment: Mio is pleasent when CM enters the room he states he is thankful for Arline that she saved his life. He states his goals are to get stronger and out of bed. He is willing to partcpate in PT/OT to meet his goals. Arline would like him to have 30 days of rehab it was her impression that he would recieve that here at [facility]. CM reviewed the plan with Pt and DPOA that the intention while in the short term SB1 is to complete his antibioitc and send him to a rehab facillity for the remianing two weeks for therapy. End Frazer: Brooklyn Barker Date Assessment was completed:: 08/02/18
--- NOTE | 2018-08-02 16:27 | CM.SWINGPC ---
- If Service Date Differs Date of service: 08/02/18 Time of Service: 16:28 Swingbed Plan of Care Plan of care: SWING BED PROGRAM ACTIVITIES/DISCHARGE PLAN OF CARE ACTIVITIES PLAN Date: 08/02/18 Identified Need: Individual activities Intervention/Plan: Television, likes Yaakov Serrano and Yuval Thompson, any police shows. Music likes 80's rock, [employer], music therapy, pet therapy and activity cart if able. Initials [facility] DISCHARGE PLAN Date:08/02/18 Identified Need: Treatment for MSSA bacteremia and PT OT for status post stoke Intervention/Plan: PT/ OT ordered. IV antibioitcs x two more weeks completing on 08/23/18 Initials [facility]
--- NOTE | 2018-08-02 16:30 | CMSCP_ITS ---
- If Service Date Differs Date of service: 08/02/18 Time of Service: 16:28 Swingbed Plan of Care Plan of care: SWING BED PROGRAM ACTIVITIES/DISCHARGE PLAN OF CARE ACTIVITIES PLAN Date: 08/02/18 Identified Need: Individual activities Intervention/Plan: Television, likes Yaakov Serrano and Yuval Thompson, any police shows. Music likes 80's rock, [employer], music therapy, pet therapy and activity cart if able. Initials [facility] DISCHARGE PLAN Date:08/02/18 Identified Need: Treatment for MSSA bacteremia and PT OT for status post stoke Intervention/Plan: PT/ OT ordered. IV antibioitcs x two more weeks completing on 08/23/18 Initials [facility]
--- NOTE | 2018-08-02 17:00 | PT.INIE ---
Date of service: 08/02/18 Time of Service: 15:48 PT Notes Inpatient Physical Therapy Evaluation Date: 08/02/2018 Referring Doctor: Pedro Mathur MD PT Orders: PT CONSULT: Ongoing rehab following L MCA ischemic stroke. R shoulder partial rotator cuff tear Precautions: Fall. Standard. WBAT with air cast boot on L LE. Orthopedic shoe on R. Hemiwalker on L side. Sling to R UE for comfort. Patient Profile/Admitting Diagnosis: Patient is a 52-year-old male who was directly transferred to his hospital [place] [facility] [place] and continued antibiotic treatment regimen for MSSA bacteremia, brain abcess, aortic valve endocaridtis, aortic insufficiency, fracture of L ankle sustained from a fall S/P ORIF on 04/24/2018, R hemiparesis from late effects MCA infarction diagnosed on 06/10/2018, right partial rotator cuff tear, and splenic abcess. Patient is also on Suboxone treatment for chroninc opiate dependence. Patient was hospitalized at [facility] [place] 06/10/2018 through 08/02/2018 for same medical conditions. PMHX: DM GERD Oipiate Dependence Depression History of DVT Social History/Home Situation: Patient lives with and in a mobile home in [place], [place] with 3 steps to enter with a rail on the right side going up. 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 Current Functional Limitations: Need for assistance with all bed mobility, transfers, and ambulation task performance requiring assist of 2 and hemiwalker Equipment Owned/DME: [facility] Subjective: Patient reports being tired from transport from [facility] [place] hospital. He is however we will to a PT consult and treatment today. He reports discomfort on the right shoulder and on the left ankle. He states that he is willing reports getting better and being able to move better so that he can help his at home. Objective: General Observation: Patient seen lying in bed. PICC line for antibiotics on medial right forearm. Sling on right you eat. Thick adherent yellowish hyperkeratotic skin on bilateral soles observed. Gastrotomy tube in place on the left upper abdominal area. Resting tremor noted on right upper extremity that also increases with movement. Inferior right quadrant of face drooping. Mental Status: Alert and oriented as to person, place, time, and purpose. Patient requires moderate to maximal verbal cueing using simple commands for overall safety and activity sequence. He needs to be given appropriate time to process instructions Pain: Mild pain on right shoulder with elevation of arm forward. Mild discomfort on left foot with weight bearing activity. ROM: Right Upper Extremity: Shoulder Flexion WFL. Shoulder abduction WFL. Elbow flexion WFL. Wrist flexion WFL. Functional opening and closing of hand WFL. Left Upper Extremity: Shoulder Flexion 0-70. Shoulder abduction 0-20. Patient was able to bring right hand to his mouth, put right forearm onto right arm rest of the recliner and put the right arm back onto lap with complaints of tightness but no pain. Forearm supination to neutral only from a fully pronated position . Wrist flexion WFL. Functional opening and closing of hand WFL. Right Lower Extremity: Hip flexion WFL. Hip abduction WFL. Knee flexion WFL. Ankle dorsiflexion WFL. Ankle plantarflexion WFL. Left Lower Extremity: Hip flexion WFL. Hip abduction WFL. Knee flexion WFL. Ankle dorsiflexion WFL. Ankle plantarflexion WFL. Strength: Right Upper Extremity: Shoulder flexors 3-/5. Shoulder abductors 3-/5. Elbow flexors 3/5. Elbow extensors 3-/5. Sand Mixer Machine weak and minimally functional. Left Upper Extremity: Shoulder flexors 5/5. Shoulder abductors 5/5. Elbow flexors 5/5. Elbow extensors 5/5. Sand Mixer Machine strong. Right Lower Extremity: Hip flexors 3-/5. Hip abductors 3-/5. Knee flexors 3-/5. Knee extensors 3-/5. Ankle dorsiflexors 3-/5. Ankle plantarflexors 3-/5. Left Lower Extremity:Hip flexors 4/5. Hip abductors 4/5. Knee flexors 4/5. Knee extensors 4/5. Ankle dorsiflexors 3-/5. Ankle plantarflexors 3-/5. Sensation: Intact as to pain and pressure on left upper and lower extremities, diminished on right upper and right lower extremiies Bed Mobility/Transfers: Rolling minimal assist of 1 with moderate to maximal verbal cueing for correct and delayed cognitive processing Supine to sit minimal assist of 1 with moderate to maximal verbal cueing for correct and delayed cognitive processing Sit to supine minimal assist of 1 with moderate to maximal verbal cueing for correct and delayed cognitive processing Sit to stand minimal assist of 2 with moderate to maximal verbal cueing for correct and delayed cognitive processing, requires hemiwalker on left, Aircast boot on left, sling on right upper extremity, and orthopedic shoe on right Stand to sit minimal assist of 2 with moderate to maximal verbal cueing for correct and delayed cognitive processing, requires hemiwalker on left, Aircast boot on left, sling on right upper extremity, and orthopedic shoe on right Bed to chair minimal assist of 2 with moderate to maximal verbal cueing for correct and delayed cognitive processing, requires hemiwalker on left, Aircast boot on left, sling on right upper extremity, and orthopedic shoe on right Chair to bed minimal assist of 2 with moderate to maximal verbal cueing for correct and delayed cognitive processing, requires hemiwalker on left, Aircast boot on left, sling on right upper extremity, and orthopedic shoe on right Gait: Patient was able to tolerate in room ambulation of 8-10 steps x 2 + 2 turns + for back steps with minimal assist of 2 with maximal verbal, tactile, and visual cueing for hemiwalker management, weight shifting to the left prior to right LE advancement, and for increased hip flexion on the right to increase step height/length. Balance: Static Sitting: Fair Dynamic Sitting: Fair Static Standing: Fair Dynamic Standing: Fair Special Tests: Mobility Limitations Standardized Measure [facility] AM-PAC 6 clicks Basic Mobility Inpatient Short Form: Raw Score: 14 CMS Score: 62% deficit Informed Consent/Education: Patient instructed in purpose of PT consult and plan of care. Bed to recliner transfer technique, level surface ambulation, and AD management were covered during this session. and patient are both agreeable to propese plan of care. Assessment: Patient is a 52-year-old male here for continued inpatient rehabilitation to address right susanne-late effects of left MCA infarct as well fracture of left and is post ORIF, tear, MSSA septicemia,, aortic valve endocarditis, splenic abscess, and aortic insufficiency. Patient presents with clinical signs and symptoms consistent with current/admitting diagnoses that have resulted to mobility limitations, gait instability, generalized weakness, and impairment of motor control as demonstrated by the following impairment level findings: 1. Decreased strength to R LE major muscle groups 2. Impaired sitting/standing balance 3. Impaired activity tolerance 4. Limitation of joint range of motion on R upper and lower extremities Impairments are contributing to the following functional limitations: 1. Dependent bed mobility skills 2. Increased dependence with transfers 3. Inability to safely ambulate without assistive device and physical assistance 4. Increase completion time for mobility ADL performance 5. Increased fall risk 6. Inability to negotiate steps alone safely Patient is assessed as a 15760 moderate complexity based on the following: History: 52-year-old male with extensive medical conditions resulting to ability impairment with comorbidities as indicated above Examination: Underlying impairments and functional limitations as noted above Presentation:Evolving Decision Makin moderate complexity Goals: Goals X1 week 1. Supine-Sit supervision 2. Sit-Supine supervision 3. Sit-Stand supervision 4. Stand-Sit supervision 5. Bed-Chair supervision 6. Chair-Bed supervision 7. Supervision gait on level surface with use of least restrictive device for at least 200 feet without report of pain nor dyspnea 8. Supervision stair negotiation while holding onto bilateral rails for at least 5 steps without report of pain nor dyspnea 9. Supervision with home exercise program 10. Good static and dynamic standing balance/tolerance Plan of Care/Treatment Plan: 1-2x/day, 7 days/week x 1 week. Plan of care has been reviewed with the [employer] providing the service under Physical Therapy direction. Initiate Physical Therapy intervention for strengthening, bed mobility, transfers, gait, stairs, balance training, use of assistive device. DISCHARGE RECOMMENDATIONS: Patient will benefit from home health PT services in order to progress mobility level using least restrictive assistive ambulatory device/using no device, assess home safety, identify additional equipment needs, and establish a functional maintenance program that will increase ability of patient to remain at home. TREATMENT CODE/TIME: 74907 x 30 minutes, 97033 x 24 minutes beginning 15:48 PM. Thank you very much for this referral. Zunilda Zapata PT, DPT, CLT [facility]
[2018-08-02] MEDS: Enoxaparin 40 MG/0.4 ML SYR SC (18:37)
[2018-08-02] MEDS: cefTRIAXone 2 GM/50 ML BAG IVPB (18:37)
[2018-08-02] MEDS: Normal Saline 500 ML 30 ML IV (18:38)
[2018-08-02] MEDS: levETIRAcetam 500 MG TAB PO (19:28)
[2018-08-02] MEDS: hydrALAZINE 25 MG TAB 50 MG PO (19:28)
[2018-08-02] MEDS: Gabapentin 300 MG CAP PO (19:29)
[2018-08-02] MEDS: Melatonin 3 MG TAB 6 MG PO (21:51)
[2018-08-02] MEDS: Insulin Glargine 300 UNITS/3 ML PEN 35 UNITS SC (21:52)
[2018-08-02 23:55] VITALS: BP 125/63; PULSE 80; RESP 18; TEMP 36.5; O2SAT 94
[2018-08-03] MEDS: Normal Saline Flush 10 ML SYR IVP ×3 (05:48→17:18)
[2018-08-03] MEDS: cefTRIAXone 2 GM/50 ML BAG IVPB ×2 (05:48→17:18)
[2018-08-03] MEDS: Acetaminophen 325 MG TAB 650 MG PO ×2 (05:50→10:13)
[2018-08-03 07:14] LABS: Platelet Count 404 x1000/uL (130-400)
[2018-08-03 08:14] VITALS: BP 133/58; PULSE 92; RESP 20; TEMP 36.1; O2SAT 94
--- NOTE | 2018-08-03 08:58 | IN_ITS ---
Date of service: 08/02/18 Time of Service: 15:48 PT Notes Inpatient Physical Therapy Evaluation Date: 08/02/2018 Referring Doctor: Pedro Mathur MD PT Orders: PT CONSULT: Ongoing rehab following L MCA ischemic stroke. R shoulder partial rotator cuff tear Precautions: Fall. Standard. WBAT with air cast boot on L LE. Orthopedic shoe on R. Hemiwalker on L side. Sling to R UE for comfort. Patient Profile/Admitting Diagnosis: Patient is a 52-year-old male who was directly transferred [place] his [place] [facility] [place] and continued antibiotic treatment regimen for MSSA bacteremia, brain abcess, aortic valve endocaridtis, aortic insufficiency, fracture of L ankle sustained from a fall S/P ORIF on 04/24/2018, R hemiparesis from late effects MCA infarction diagnosed on 06/10/2018, right partial rotator cuff tear, and splenic abcess. Patient is also on Suboxone treatment for chroninc opiate dependence. Patient was [place] [facility] [place] 08/02/2018 for same medical conditions. PMHX: DM GERD Oipiate Dependence Depression History of DVT Social History/Home Situation: Patient lives with and in a mobile home in [place], [place] with 3 steps to enter with a rail on the right side going up. 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 Current Functional Limitations: Need for assistance with all bed mobility, transfers, and ambulation task performance requiring assist of 2 and hemiwalker Equipment Owned/DME: [facility] Subjective: Patient reports being tired from transport from [facility] [place]. He is however we will to a PT consult and treatment today. He reports discomfort on the right shoulder and on the left ankle. He states that he is willing reports getting better and being able to move better so that he can help his at home. Objective: General Observation: Patient seen lying in bed. PICC line for antibiotics on medial right forearm. Sling on right you eat. Thick adherent yellowish hyperkeratotic skin on bilateral soles observed. Gastrotomy tube in place on the left upper abdominal area. Resting tremor noted on right upper extremity that also increases with movement. Inferior right quadrant of face drooping. Mental Status: Alert and oriented as to person, place, time, and purpose. Patient requires moderate to maximal verbal cueing using simple commands for overall safety and activity sequence. He needs to be given appropriate time to process instructions Pain: Mild pain on right shoulder with elevation of arm forward. Mild discomfort on left foot with weight bearing activity. ROM: Right Upper Extremity: Shoulder Flexion WFL. Shoulder abduction WFL. Elbow flexion WFL. Wrist flexion WFL. Functional opening and closing of hand WFL. Left Upper Extremity: Shoulder Flexion 0-70. Shoulder abduction 0-20. Patient was able to bring right hand to his mouth, put right forearm onto right arm rest of the recliner and put the right arm back onto lap with complaints of tightness but no pain. Forearm supination to neutral only from a fully pronated position . Wrist flexion WFL. Functional opening and closing of hand WFL. Right Lower Extremity: Hip flexion WFL. Hip abduction WFL. Knee flexion WFL. Ankle dorsiflexion WFL. Ankle plantarflexion WFL. Left Lower Extremity: Hip flexion WFL. Hip abduction WFL. Knee flexion WFL. Ankle dorsiflexion WFL. Ankle plantarflexion WFL. Strength: Right Upper Extremity: Shoulder flexors 3-/5. Shoulder abductors 3-/5. Elbow flexors 3/5. Elbow extensors 3-/5. Wafer Slicer weak and minimally functional. Left Upper Extremity: Shoulder flexors 5/5. Shoulder abductors 5/5. Elbow flexors 5/5. Elbow extensors 5/5. Wafer Slicer strong. Right Lower Extremity: Hip flexors 3-/5. Hip abductors 3-/5. Knee flexors 3-/5. Knee extensors 3-/5. Ankle dorsiflexors 3-/5. Ankle plantarflexors 3-/5. Left Lower Extremity:Hip flexors 4/5. Hip abductors 4/5. Knee flexors 4/5. Knee extensors 4/5. Ankle dorsiflexors 3-/5. Ankle plantarflexors 3-/5. Sensation: Intact as to pain and pressure on left upper and lower extremities, diminished on right upper and right lower extremiies Bed Mobility/Transfers: Rolling minimal assist of 1 with moderate to maximal verbal cueing for correct and delayed cognitive processing Supine to sit minimal assist of 1 with moderate to maximal verbal cueing for correct and delayed cognitive processing Sit to supine minimal assist of 1 with moderate to maximal verbal cueing for correct and delayed cognitive processing Sit to stand minimal assist of 2 with moderate to maximal verbal cueing for correct and delayed cognitive processing, requires hemiwalker on left, Aircast boot on left, sling on right upper extremity, and orthopedic shoe on right Stand to sit minimal assist of 2 with moderate to maximal verbal cueing for correct and delayed cognitive processing, requires hemiwalker on left, Aircast boot on left, sling on right upper extremity, and orthopedic shoe on right Bed to chair minimal assist of 2 with moderate to maximal verbal cueing for correct and delayed cognitive processing, requires hemiwalker on left, Aircast boot on left, sling on right upper extremity, and orthopedic shoe on right Chair to bed minimal assist of 2 with moderate to maximal verbal cueing for correct and delayed cognitive processing, requires hemiwalker on left, Aircast boot on left, sling on right upper extremity, and orthopedic shoe on right Gait: Patient was able to tolerate in room ambulation of 8-10 steps x 2 + 2 turns + for back steps with minimal assist of 2 with maximal verbal, tactile, and visual cueing for hemiwalker management, weight shifting to the left prior to right LE advancement, and for increased hip flexion on the right to increase step height/length. Balance: Static Sitting: Fair Dynamic Sitting: Fair Static Standing: Fair Dynamic Standing: Fair Special Tests: Mobility Limitations Standardized Measure [facility] AM-PAC 6 clicks Basic Mobility Inpatient Short Form: Raw Score: 14 CMS Score: 62% deficit Informed Consent/Education: Patient instructed in purpose of PT consult and plan of care. Bed to recliner transfer technique, level surface ambulation, and AD management were covered during this session. and patient are both agreeable to propese plan of care. Assessment: Patient is a 52-year-old male here for continued inpatient rehabilitation to address right susanne-late effects of left MCA infarct as well fracture of left and is post ORIF, tear, MSSA septicemia,, aortic valve endocarditis, splenic abscess, and aortic insufficiency. Patient presents with clinical signs and symptoms consistent with current/admitting diagnoses that have resulted to mobility limitations, gait instability, generalized weakness, and impairment of motor control as demonstrated by the following impairment level findings: 1. Decreased strength to R LE major muscle groups 2. Impaired sitting/standing balance 3. Impaired activity tolerance 4. Limitation of joint range of motion on R upper and lower extremities Impairments are contributing to the following functional limitations: 1. Dependent bed mobility skills 2. Increased dependence with transfers 3. Inability to safely ambulate without assistive device and physical assistance 4. Increase completion time for mobility ADL performance 5. Increased fall risk 6. Inability to negotiate steps alone safely Patient is assessed as a 63035 moderate complexity based on the following: History: 52-year-old male with extensive medical conditions resulting to ability impairment with comorbidities as indicated above Examination: Underlying impairments and functional limitations as noted above Presentation:Evolving Decision Makin moderate complexity Goals: Goals X1 week 1. Supine-Sit supervision 2. Sit-Supine supervision 3. Sit-Stand supervision 4. Stand-Sit supervision 5. Bed-Chair supervision 6. Chair-Bed supervision 7. Supervision gait on level surface with use of least restrictive device for at least 200 feet without report of pain nor dyspnea 8. Supervision stair negotiation while holding onto bilateral rails for at least 5 steps without report of pain nor dyspnea 9. Supervision with home exercise program 10. Good static and dynamic standing balance/tolerance Plan of Care/Treatment Plan: 1-2x/day, 7 days/week x 1 week. Plan of care has been reviewed with the [employer] providing the service under Physical Therapy direction. Initiate Physical Therapy intervention for strengthening, bed mobility, transfers, gait, stairs, balance training, use of assistive device. DISCHARGE RECOMMENDATIONS: Patient will benefit from home health PT services in order to progress mobility level using least restrictive assistive ambulatory device/using no device, assess home safety, identify additional equipment needs, and establish a functional maintenance program that will increase ability of patient to remain at home. TREATMENT CODE/TIME: 28246 x 30 minutes, 43500 x 24 minutes beginning 15:48 PM. Thank you very much for this referral. Zunilda Zapata PT, DPT, CLT [facility]
[2018-08-03] MEDS: hydrALAZINE 25 MG TAB 50 MG PO ×3 (09:19→20:09)
[2018-08-03] MEDS: Lisinopril 20 MG TAB 40 MG PO (09:19)
[2018-08-03] MEDS: Sennosides/Docusate Sodium TAB 1 TAB PO (09:20)
[2018-08-03] MEDS: DULoxetine 30 MG CAP PO (09:20)
[2018-08-03] MEDS: Furosemide 40 MG TAB PO (09:20)
[2018-08-03] MEDS: Gabapentin 300 MG CAP PO ×3 (09:20→20:08)
[2018-08-03] MEDS: Docusate Sodium 100 MG CAP PO (09:20)
[2018-08-03] MEDS: levETIRAcetam 500 MG TAB PO ×2 (09:21→20:08)
[2018-08-03] MEDS: Pantoprazole 40 MG TABCR PO (09:22)
--- NOTE | 2018-08-03 11:48 | OT.INIE ---
Occupational Therapy Notes Inpatient Occupational Therapy Evaluation Date: 08/03/18 Referring Doctor:Pedro Mathur MD OT Orders: Ongoing rehab following (L) MCA ischemic stroke Precautions: Fall, Standard PATIENT PROFILE/ADMITTING DIAGNOSIS: Pt is a 52 year old male who was directly transferred from [facility] for inpatient rehab and continued antibiotic treatment regimen for MSSA bacteremia, brain abcess, aortic valve endocaridtis, aortic insufficiency, fracture of L ankle sustained from a fall S/P ORIF on 04/24/2018, R hemiparesis from late effects MCA infarction diagnosed on 06/10/2018, right partial rotator cuff tear, and splenic abcess. Patient is also on Suboxone treatment for chroninc opiate dependence. Past Medical History: DM GERD Oipiate Dependence Depression History of DVT Social History/Home Situation: Pt lives in a private home with his . He reports that prior to admission he was totally (I) with all ADLS/IADLs. 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 He notes that he is not a bad person multiple times throughout OT session and that he made some bad choices which has changed his life forever. Equipment owned/DME: [facility] SUBJECTIVE: Pt was sitting in bed when OT arrived. He was agreeable to OT session. OBJECTIVE: General Observation: Walking boot (R) LE, post op shoe (L) LE. delay speech and verbal response, emotional with questions asked, pain with extension of (R) digits in IP joint, resting (R) hand tremor, Purvis, IV (R) UE, sling on (R) UE which needed to be adjusted as pts (R) UE was not fully supported. Mental Status: Alert to name and place Pain: c/o pain in (L) LE. ROM: RUE AROM significantly limited d/t rotator cuff L UE AROM WNL STRENGTH: RUE unable to assess as pt is in sling with torn rotator cuff. Functionally limited for ROM. Floor Technician is weak. LUE Globally 5/5 throughout FUNCTIONAL MOBILITY/ADLS: Transfers with susanne walker, mod (A) BATHING NT DRESSING Sitting in chair Dressing UE NT Dressing LE Able to don post op boot. Pt is only able to use 1 UE at this time, d/t this pt is unable to don and doff (B) socks and requires max (A). GROOMING Sitting in chair able to (I) brush hair, teeth not tested at todays session. TOILETING NT EATING Mod(A) opening and closing containers and use of sillverware. BALANCE: Static sitting Fair Dynamic Sitting Fair Static Standing Poor Dynamic Standing Poor SPECIAL TESTS: Daily Activity Limitations Standardized Measure [facility] AM -PAC ?6 clicks? Daily Activity Inpatient Short Form: Raw score: 10 INFORMED CONSENT/EDUCATION: Pt instructed in purpose of OT Consult and plan of care. ASSESSMENT: Patient is a 52-year-old male referred to occupational therapy services with diagnosis of MSSA bacteremia, brain abcess, aortic valve endocaridtis, aortic insufficiency, fracture of L ankle sustained from a fall S/P ORIF on 04/24/2018, R hemiparesis from late effects MCA infarction diagnosed on 06/10/2018, right partial rotator cuff tear, and splenic abcess. Patient is also on Suboxone treatment for chroninc opiate dependence. Patient presents with clinical signs and symptoms consistent with dx, as demonstrated by the following impairment level findings: Decreased functional activity tolerance, pain in (B) LE, rotator cuff pathology (R) UE, decreased ability to perform ADLs, s/p stroke, s/p multiple LE surgeries. Impairments are contributing to the following functional limitations: Impairments with ADLs. IADLS and leisure activities, decreased functional activity tolerance, unable to perform ADLs at baseline level of function. Patient is assessed as a high 62478 complexity based on the following: History: See Above Examination: See Above Presentation: Evolving Decision Making: High complexity GOALS Goals x1 week 1. Transfers- susanne walker (S) 2. Dressing Sitting in chair mod (A) don and doffing shirt, mod (A) don and doffing pants 3. Bathing sitting in chair (I) UE/LE 4. Toileting on commode min (A) 5. Eating- (I) seated position 6. Grooming- seated (I) with teeth and hair PLAN OF CARE/TREATMENT PLAN: 1x/day, 5 days/ week x 1week Initiate Occupational Therapy Services for bathing, dressing, grooming, toileting, eating, transfer training. DISCHARGE RECOMMENDATIONS Home with HHOT services vs. SNF TREATMENT TIME/MINUTES/CODES 85956, 30 minutes (08:10) Renetta Wells OTR/[facility]
--- NOTE | 2018-08-03 11:55 | OTIE_ITS ---
Occupational Therapy Notes Inpatient Occupational Therapy Evaluation Date: 08/03/18 Referring Doctor:Pedro Mathur MD OT Orders: Ongoing rehab following (L) MCA ischemic stroke Precautions: Fall, Standard PATIENT PROFILE/ADMITTING DIAGNOSIS: Pt is a 52 year old male who was directly [place] [facility] [place] and continued antibiotic treatment regimen for MSSA bacteremia, brain abcess, aortic valve endocaridtis, aortic insufficiency, fracture of L ankle sustained from a fall S/P ORIF on 04/24/2018, R hemiparesis from late effects MCA infarction diagnosed on 06/10/2018, right partial rotator cuff tear, and splenic abcess. Patient is also on Suboxone treatment for chroninc opiate dependence. Past Medical History: DM GERD Oipiate Dependence Depression History of DVT Social History/Home Situation: Pt lives in a private home with his . He reports that prior to admission he was totally (I) with all ADLS/IADLs. He sta janessa that his works as an [employer]ILD [employer]NA[employer]. He notes that he is not a bad person multiple times throughout OT session and that he made some bad choices which has changed his life forever. Equipment owned/DME: [facility] SUBJECTIVE: Pt was sitting in bed when OT arrived. He was agreeable to OT session. OBJECTIVE: General Observation: Walking boot (R) LE, post op shoe (L) LE. delay speech and verbal response, emotional with questions asked, pain with extension of (R) digits in IP joint, resting (R) hand tremor, Purvis, IV (R) UE, sling on (R) UE which needed to be adjusted as pts (R) UE was not fully supported. Mental Status: Alert to name and place Pain: c/o pain in (L) LE. ROM: RUE AROM significantly limited d/t rotator cuff L UE AROM WNL STRENGTH: RUE unable to assess as pt is in sling with torn rotator cuff. Functionally limited for ROM. Bronze Chaser is weak. LUE Globally 5/5 throughout FUNCTIONAL MOBILITY/ADLS: Transfers with susanne walker, mod (A) BATHING NT DRESSING Sitting in chair Dressing UE NT Dressing LE Able to don post op boot. Pt is only able to use 1 UE at this time, d/t this pt is unable to don and doff (B) socks and requires max (A). GROOMING Sitting in chair able to (I) brush hair, teeth not tested at todays session. TOILETING NT EATING Mod(A) opening and closing containers and use of sillverware. BALANCE: Static sitting Fair Dynamic Sitting Fair Static Standing Poor Dynamic Standing Poor SPECIAL TESTS: Daily Activity Limitations Standardized Measure [facility] AM -PAC ?6 clicks? Daily Activity Inpatient Short Form: Raw score: 10 INFORMED CONSENT/EDUCATION: Pt instructed in purpose of OT Consult and plan of care. ASSESSMENT: Patient is a 52-year-old male referred to occupational therapy services with diagnosis of MSSA bacteremia, brain abcess, aortic valve endocaridtis, aortic insufficiency, fracture of L ankle sustained from a fall S/P ORIF on 04/24/2018, R hemiparesis from late effects MCA infarction diagnosed on 06/10/2018, right partial rotator cuff tear, and splenic abcess. Patient is also on Suboxone treatment for chroninc opiate dependence. Patient presents with clinical signs and symptoms consistent with dx, as demonstrated by the following impairment level findings: Decreased functional activity tolerance, pain in (B) LE, rotator cuff pathology (R) UE, decreased ability to perform ADLs, s/p stroke, s/p multiple LE surgeries. Impairments are contributing to the following functional limitations: Impairments with ADLs. IADLS and leisure activities, decreased functional activity tolerance, unable to perform ADLs at baseline level of function. Patient is assessed as a high [id number] complexity based on the following: History: See Above Examination: See Above Presentation: Evolving Decision Making: High complexity GOALS Goals x1 week 1. Transfers- susanne walker (S) 2. Dressing Sitting in chair mod (A) don and doffing shirt, mod (A) don and doffing pants 3. Bathing sitting in chair (I) UE/LE 4. Toileting on commode min (A) 5. Eating- (I) seated position 6. Grooming- seated (I) with teeth and hair PLAN OF CARE/TREATMENT PLAN: 1x/day, 5 days/ week x 1week Initiate Occupational Therapy Services for bathing, dressing, grooming, toileting, eating, transfer training. DISCHARGE RECOMMENDATIONS Home with HHOT services vs. SNF TREATMENT TIME/MINUTES/CODES 63650, 30 minutes (08:10) Renetta Wells OTR/[facility]
[2018-08-03 13:23] VITALS: BP 129/47; PULSE 96; RESP 16; O2SAT 95
--- NOTE | 2018-08-03 15:29 | PT.INTREAT ---
Date of service: 08/03/18 Time of Service: 15:29 PT Notes Inpatient Physical Therapy Treatment Note [facility] Date: 08/03/18 PRECAUTIONS: Fall, WBAT on L SUBJECTIVE: Mio is pleasant and agreeable to participating in PT. OBJECTIVE: PAIN: Patient c/o L LE pain with gait training BED MOBILITY/TRANSFERS Supine-sit: SBA Sit-supine: Mod A x2 Sit-stand: Min A Stand-sit: CGA Bed-Chair: Min A x2 Chair-bed: Min A x2 GAIT Assistive Device: Hemiwalker Weight bearing: WBAT on L Assist: Min A x2 - Mod A x2 Distance: 5' x2 Deviation: Cueing for foot advancement and HW mechanics ASSESSMENT: Patient continues to require assist for transfers and with gait training. He would benefit from continued gait and transfer training for improved mobility and activity tolerance. PLAN: Continue with PT's POC TREATMENT CODE/TIME: Session 1: 15 minutes; [id number] Session 2: 10 minutes; [id number]
[2018-08-03 15:30] VITALS: BP 122/54; PULSE 95; RESP 18; TEMP 36.4; O2SAT 92
--- NOTE | 2018-08-03 15:32 | PTTR_ITS ---
Date of service: 08/03/18 Time of Service: 15:29 PT Notes Inpatient Physical Therapy Treatment Note [facility] Date: 08/03/18 PRECAUTIONS: Fall, WBAT on L SUBJECTIVE: Mio is pleasant and agreeable to participating in PT. OBJECTIVE: PAIN: Patient c/o L LE pain with gait training BED MOBILITY/TRANSFERS Supine-sit: SBA Sit-supine: Mod A x2 Sit-stand: Min A Stand-sit: CGA Bed-Chair: Min A x2 Chair-bed: Min A x2 GAIT Assistive Device: Hemiwalker Weight bearing: WBAT on L Assist: Min A x2 - Mod A x2 Distance: 5' x2 Deviation: Cueing for foot advancement and HW mechanics ASSESSMENT: Patient continues to require assist for transfers and with gait training. He would benefit from continued gait and transfer training for improved mobility and activity tolerance. PLAN: Continue with PT's POC TREATMENT CODE/TIME: Session 1: 15 minutes; [id number] Session 2: 10 minutes; [id number]
--- NOTE | 2018-08-03 16:02 | DI.RAD_ITS ---
SYMPTOM/DIAGNOSIS: S/P LT ANKLE SURGERY LEFT ANKLE: Comparison is made with 04/12/18. Hardware is seen for fracture fixation along the lateral malleolus. The mortise screws are also in place. 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 The ankle mortise appears intact.
--- NOTE | 2018-08-03 16:45 | DI.VRAD_ITS ---
EXAM: XR Left Ankle EXAM DATE/TIME: 08/03/2018 4:02 PM CLINICAL HISTORY: 52 years old, male; Condition or disease; Prior surgery; Patient HX: S/P L ankle surgery; Mssa bacteremia w/ HX of septic TECHNIQUE: Imaging protocol: XR Left ankle. Views: 3 or more views. COMPARISON: SC XR ANKLE LT COMPLETE 04/12/2018 7:58 PM FINDINGS/IMPRESSION: Bones/joints: Status post internal fixation of the distal fibula and syndesmosis. Overall alignment appears near-anatomic. Tiny osseous fragments are noted near the medial malleolus. No visualized acute fractures. Disuse osteopenia. Dictated and Authenticated by: Francisco Griggs MD. Ordering:JIMMIE Oliveira MD
[2018-08-03] MEDS: Enoxaparin 40 MG/0.4 ML SYR SC (17:18)
--- NOTE | 2018-08-03 20:00 | PT.INTREAT ---
Date of service: 08/05/18 Time of Service: 08:52 PT Notes Inpatient Physical Therapy Treatment Note [facility] Date: 08/03/2018 PRECAUTIONS: Fall. Standard. WBAT with air cast boot on L LE. Orthopedic shoe on R. Hemiwalker on L side. Sling to R UE for comfort. SUBJECTIVE: Patient reports that he had a not so good slept well last night. he reports pain on L LE and L shoulder related to walking activity. He denies nausea, dizziness, and vomiting. He reports no chest pain nor headache throughout PT session. Patient states that he was able to recover well from last therapy session without undue fatigue. OBJECTIVE: Patient seen resting in bed. Edema on R hand and distal foream still noticeable. Air cast boot on L and orthopedic shoe on R. Sling on R UE. PAIN:reported mild to moderate pain on L LE and R shoulder BED MOBILITY/TRANSFERS Rolling L/R: SBA Supine-sit: SBA Sit-supine: Minimal assist with verbal cues needed for correct L UE placement for support and safety Sit-stand: Minimal assist with verbal cues needed for correct L UE placement for support and safety Stand-sit: Minimal assist with verbal cues needed for correct L UE placement for support and safety Bed-Chair: Minimal assist of 2, verbal cues needed for correct L UE placement, weight shifting for opposirte LE clearance/advancement, and backing up for support and safety Chair-bed: Minimal assist of 2, verbal cues needed for correct L UE placement, weight shifting for opposirte LE clearance/advancement, and backing up for support and safety GAIT : Assistive Device: HW Weight bearing: WBAT on L LE with air cast boot on, orthopedic shoe on R, sliing on for R UE comfort Assist: Minimal assist of 2, Minimal assist of 2, verbal cues needed for correct L UE placement, weight shifting for opposirte LE clearance/advancement, and backing up for support and safety Distance: 20' x 2 Deviation: Decreased step height and length on R due to late effects of hemiparesis; decreased R knee flexion, and increased tendency to do a short double step on the R when fatigued; decreased R hip flexion needing moderate to maximum cueing for weight shifting onto L for R LE clearance ASSESSMENT: Patient demonstrates good tolerance to physical therapy session with observed improvement in terms of pain level, activity tolerance, self-efficacy/confidence, and participation level. PLAN: Patient to progress with mobility level, functional performance, and knowledge of HEP to achieve previously established goals. TREATMENT CODE/TIME: 56 [place] for [id number] beginning at 8:52 am.
--- NOTE | 2018-08-03 20:29 | OCONE_ITS ---
Date of service: 08/03/18 Time of Service: 14:28 History of Present Illness Chief Complaint: Left Ankle Pain Narrative: Mio is a 52yo male who suffered an ankle fracture in March and fixed in April 2018. Unfortunately, Mio suffered a stroke due to septic emboli. He has multiple complications and medical issues around this and due to this. He is now back at [facility] for management of multiple medical issues and continuation of IV antibiotics for septicemia. He is unclear on the details of his left ankle. He doesn't know where his surgery was for the ankle. He has been wearing a boot. He reports that it hurts but has a hard time identifying how or where. He quickly mentions other associated issues. History is difficult given an obvious speech abnormality from stroke. He denies any numbness or tingling of the left foot. He has had a rash and thickening to the soles of the feet. Consult Reason Left ankle surgery management Assessment and Plan (1) Displaced bimalleolar fracture of left ankle: Current visit: Yes Status: Acute Mio is a 52yo with multiple medical issues who also had a displaced left ankle bimalleolar equivalent ankle fracture. He had surgery sometime in the end of April, but I have none of those details. The initial injury films did show displacement and the fracture was fixed with a lateral plate and syndesmotic fixation. He is far enough out that the construct should be stable and the fracture shold be healed. He is difficult to interview to truly ascertain if the ankle is a real pain generator. The xray still shows some fracture line but compared to the pre-op there has been interval healing. The halo around the syndesmotic screws is typical due to weight-bearing and subtle motion of the screws. At this point, the walker boot may be used if so desired for comfort but it is not necessary in the recovery of this fracture. He may ambulate without the boot and start PT for left ankle ROM and strengthening. If stability is a concern (which may be the case due to deconditioning and chronic medicl issues), an ankle support orthosis may be applied to assist with transfers and mobilization without the bulk and weight of the boot. Qualifiers: Encounter type: sequela Fracture type: closed Qualified Code(s): S82.842S - Displaced bimalleolar fracture of left lower leg, sequela Review of Systems Review of Systems All systems reviewed & are unremarkable except as noted in HPI and below PFSH Social History Smoking/Tobacco Use Status: Former Tobacco Use Alcohol Intake: former Drug use: Current Sobriety Substance use type: former substance user, marijuana and opiates Caregiver/Support person: Yes Household members: spouse current occupation: Disabled Do you feel safe in your relationship?: Yes Exam Narrative Exam Narrative: Resting in the bed. Left leg is externally rotated but he freely moves it in the bed. There is a well-healed lateral incision. There is some scarring and thinning of the medial distal leg skin. No erythema. No significant swelling. Palpable PT pulse. He is able to dorsiflex to neutral and plantarflex to 40. Passively he has no crepitus nor pain with range of motion. No significant pain to palpation about the ankle except for a mild amount medially, just distal to the tip of the medal malleolus. SILT DP/SP/Tib. +PT pulse. Results Last Vital Signs Temp 36.4 C L 08/03/18 15:30 Pulse 95 H 08/03/18 15:30 Resp 18 08/03/18 15:30 BP 122/54 L 08/03/18 15:30 Pulse Ox 92 L 08/03/18 15:30 Labs : 08/03/18 06:36 Laboratory Results - last 24 hr 08/03/18 06:36 Plt Count 404 H Imaging Imaging Studies: X-ray of the left ankle shows a plate over the distal fibula with interfragmentary screws and 2 syndesmotic screws. The fracture line is still barely visible. The two syndesmotic screws do have a halo around them. The talus has a slight lateral tilt with possible widening medially.
[2018-08-03] MEDS: Melatonin 3 MG TAB 6 MG PO (22:29)
[2018-08-03] MEDS: Insulin Glargine 300 UNITS/3 ML PEN 35 UNITS SC (22:29)
[2018-08-04] VITALS (9 sets, daily range): BP systolic 101–152; BP diastolic 45–59; PULSE 61–115; RESP 17–26; TEMP 36.2–36.8; O2SAT 87–96
--- NOTE | 2018-08-04 05:20 | DI.RAD_ITS ---
SYMPTOM/DIAGNOSIS: SOB, SATS DROPPED RR UP PORTABLE CHEST: 08/04/18 AT 5:14 A.M. Comparison is made with 10 June 2018. The heart size is at the upper limits of normal for projection. There are bilateral patchy infiltrates in both upper and lower lobes. A PICC line is seen entering via the left arm with the tip in the SVC. There may be tiny bilateral pleural effusions. IMPRESSION: Multifocal infiltrates.
--- NOTE | 2018-08-04 05:25 | W.PM.PROGNOT ---
Date of Service Date of service: 08/04/18 Time of Service: 05:25 Subjective Interval history since last seen: Called to evaluate for SOB. Nurse in to reposition patient, he reported that hea hd been SOB for an hour. NO CP. Diaphoresis noted. O2 decreased high 80s, now mid-902 on 2L. patient states he feels better at this time. PE: 142/55, pulse 108, rr 20. Lungs fewrales left base and mid field; heart tachy/regular. Calves without edema and non-tender. EKG: sunus tach with [address] depression v5 and 6; CXR pulmonary edema A/P: Flare of CHF, possibly on ischemic basis. Plan: serial troponins, topical NTG, Lasix. Single dose ASA now, not a candidate for anticoagulation secondary to brain abcess per prior notes Objective Objective Clinical Data: Abnormal lab results 08/03/18 Range/Units 06:36 Plt Count 404 H (130-400) x1000/uL Vital Signs Temperature 36.8 C 08/04/18 04:48 Temperature Source Tympanic 08/04/18 04:48 Pulse 76 08/04/18 04:50 Pulse Rhythm Regular 08/03/18 19:30 Respiratory Rate 26 H 08/04/18 04:48 Respiratory Effort 08/03/18 19:30 Respiratory Depth Normal 08/03/18 19:30 Respiratory Pattern Normal 08/03/18 19:30 Blood Pressure 152/55 H 08/04/18 04:48 Pulse Oximetry 94 L 08/04/18 04:50 Oxygen Delivery Method Nasal Cannula 08/04/18 04:50 Oxygen Flow Rate 2 08/04/18 04:50 Pain Level 5 08/03/18 10:13 Intake & Output 08/03/18 08/03/18 08/04/18 11:59 23:59 11:59 Intake Total 290 / 1350 1060 / 1350 Output Total 350 / 350 Balance 290 / 1000 710 / 1000 Intake: IV 50 / 630 580 / 630 Oral 240 / 720 480 / 720 Output: Urine 350 / 350 Other: Urine Color Yellow Yellow Urine Appearance Clear Clear Urine Odor Normal Comment pts takes care of Stool Size Large Moderate Stool Characteristics Soft Soft Formed Formed Brown Voiding Methods Toilet Toilet Laboratory Results Plt Count 404 x1000/uL (130-400) H 08/03/18 06:36
[2018-08-04] MEDS: Furosemide 40 MG/4 ML VIAL IVP ×2 (06:07→16:11)
[2018-08-04] MEDS: Aspirin 325 MG TAB PO (06:07)
[2018-08-04] MEDS: Normal Saline Flush 10 ML SYR IVP ×2 (06:08→16:14)
[2018-08-04] MEDS: cefTRIAXone 2 GM/50 ML BAG IVPB ×2 (06:08→17:44)
[2018-08-04 06:44] LABS: Troponin I 0.05 ng/mL (0.00-0.06)
--- NOTE | 2018-08-04 07:01 | DI.VRAD_ITS ---
EXAM: XR Chest, 1 View EXAM DATE/TIME: 08/04/2018 5:08 AM CLINICAL HISTORY: 52 years old, male; Signs and symptoms; Shortness of breath and other: Sats dropped rr up TECHNIQUE: Imaging protocol: XR of the chest, 1 view. COMPARISON: SC XR CHEST 2V PA LATERAL 06/10/2018 1:50 PM FINDINGS: Lungs: Extensive multifocal airspace disease suspicious for pneumonia. Pleural space: Unremarkable. No pleural effusion. No pneumothorax. Heart/Mediastinum: Unremarkable. No cardiomegaly. Bones/joints: Unremarkable. IMPRESSION: Multifocal pneumonia. Dictated and Authenticated by: Xochitl Merritt MD. Ordering:GEORGETTE Gerber MD
[2018-08-04] MEDS: hydrALAZINE 25 MG TAB 50 MG PO ×3 (09:00→20:40)
[2018-08-04] MEDS: DULoxetine 30 MG CAP PO (09:01)
[2018-08-04] MEDS: Gabapentin 300 MG CAP PO ×3 (09:01→20:40)
[2018-08-04] MEDS: Lisinopril 20 MG TAB 40 MG PO (09:01)
[2018-08-04] MEDS: Furosemide 40 MG TAB PO (09:01)
[2018-08-04] MEDS: levETIRAcetam 500 MG TAB PO ×2 (09:01→20:40)
[2018-08-04] MEDS: Pantoprazole 40 MG TABCR PO (09:01)
[2018-08-04 10:40] LABS: Troponin I 0.06 ng/mL (0.00-0.06)
[2018-08-04] MEDS: Acetaminophen 325 MG TAB 650 MG PO (10:43)
--- NOTE | 2018-08-04 11:49 | DI.RAD_ITS ---
SYMPTOM/DIAGNOSIS: F/U CHF VS PNA PORTABLE CHEST: 08/04/18 AT 12:30 P.M. Comparison is made with the exam performed the previous day, 08/04/18 The heart size is unchanged. Again noted, are multiple bilateral and pulmonary densities suspicious for multi-focal pneumonia. No gross change given differences in technique.
--- NOTE | 2018-08-04 11:55 | PT.INTREAT ---
Date of service: 08/04/18 Time of Service: 10:20 PT Notes Inpatient Physical Therapy Treatment Note [facility] Date: 08/04/18 SUBJECTIVE: Mio offers no complaints to me. OBJECTIVE: [] BED MOBILITY/TRANSFERS Sit-stand: max assist of 2. GAIT Assistive Device: HW Weight bearing: WBAT L Assist: min assist once on feet Distance: march in place x 30 sec x2. wt shifting x 30 sec. THEREX: performed a global LE strength and stabilization routine while seated in chair. See flowsheet for details. ASSESSMENT: tolerated session well, however required more assistance to transfer out of chair. Too fatigue to ambulate any distance, therefore stood and marched in placed as well as wt shifted. He did have some mod c/o pain in left lower leg/ ankle after wt. bearing and requested Tylenol. PLAN: will continue to PT POC. TREATMENT CODE/TIME: 25 min. TPx1, TAx1.
--- NOTE | 2018-08-04 11:59 | PTTR_ITS ---
Date of service: 08/04/18 Time of Service: 10:20 PT Notes Inpatient Physical Therapy Treatment Note [facility] Date: 08/04/18 SUBJECTIVE: Mio offers no complaints to me. OBJECTIVE: [] BED MOBILITY/TRANSFERS Sit-stand: max assist of 2. GAIT Assistive Device: HW Weight bearing: WBAT L Assist: min assist once on feet Distance: march in place x 30 sec x2. wt shifting x 30 sec. THEREX: performed a global LE strength and stabilization routine while seated in chair. See flowsheet for details. ASSESSMENT: tolerated session well, however required more assistance to t terrisfer out of chair. Too fatigue to ambulate any distance, therefore stood and marched in placed as well as wt shifted. He did have some mod c/o pain in left lower leg/ ankle after wt. bearing and requested Tylenol. PLAN: will continue to PT POC. TREATMENT CODE/TIME: 25 min. TPx1, TAx1.
[2018-08-04 12:03] LABS: Anion Gap 11.7 mmol/L (3-11); BUN 42 mg/dL (7-18); CO2 25.3 mmol/L (21.0-32.0); CREATININE 1.35 mg/dL (0.70-1.30); Calcium 10.6 mg/dL (8.5-10.1); Chloride 100 mmol/L (98-107); Glucose 114 mg/dL (70-100); NT-proBNP 6854 pg/mL; Potassium 4.7 mmol/L (3.5-5.1); Sodium 137 mmol/L (136-145)
--- NOTE | 2018-08-04 12:25 | DI.VRAD_ITS ---
EXAM: XR Chest, 1 View EXAM DATE/TIME: 08/04/2018 11:30 AM CLINICAL HISTORY: 52 years old, male; Signs and symptoms; Other: F/u chf vs. Pna TECHNIQUE: Imaging protocol: XR of the chest, 1 view. COMPARISON: SC XR PORTABLE CHEST AP 08/04/2018 5:14 AM FINDINGS: Tubes, catheters and devices: A left peripherally inserted central venous catheter lies with its tip in the superior vena cava. Lungs: Mild decreased bilateral perihilar infiltrates. Persistent bilateral multifocal opacities. Increased bibasilar infiltrates. Pleural space: Unremarkable. No pleural effusion. No pneumothorax. Heart/Mediastinum: Unremarkable. No cardiomegaly. Bones/joints: Unremarkable. IMPRESSION: 1. Decreased degree of congestive heart failure/pulmonary edema. 2. Persistent bilateral multifocal opacities, concerning for pneumonia. Dictated and Authenticated by: Tracy Fregoso MD. Ordering:VISHAL Fitch MD
[2018-08-04 14:44] LABS: Abs Immature Grans 0.02 k/cumm (0.0-0.09); Absolute Basophil Count 0.11 k/cumm (0.0-0.2); Absolute Eosinophil Count 0.58 k/cumm (0.0-0.7); Absolute Lymphocyte Count 2.23 k/cumm (1.2-3.4); Absolute Monocyte Count 1.08 k/cumm (0.11-0.7); Absolute Neutrophil Count 4.29 k/cumm (1.2-6.7); Basophils % 1.3; HCT 26.2 % (40.0-50.0); HGB 8.2 g/dL (13.5-17.5); Immature Grans % 0.2; Lymphocytes % 26.8; Mean Corp. HGB Concentration 31.3 g/dL (32.0-36.0); Mean Corpuscular Hemoglobin 28.7 pg (27.0-33.0); Mean Corpuscular Volume 91.6 fL (80-95); Mean Platelet Volume 9.3 fL (8.0-11.0); Neutrophils % 51.7; Platelet Count 407 x1000/uL (130-400); RBC 2.86 m/cumm (4.50-6.00); RBC Distribution Width 15.1 % (11.8-14.1); White Blood Cell Count 8.31 k/cumm (4.4-10.8)
[2018-08-04 15:20] LABS: Troponin I 0.07 ng/mL (0.00-0.06)
[2018-08-04 15:25] LABS: Anisocytosis 1+; Polychromasia Present
--- NOTE | 2018-08-04 15:40 | PGE_ITS ---
Date of Service Date of service: 08/04/18 Time of Service: 15:27 Assessment and Plan (1) Flash pulmonary edema: Current visit: Yes Status: Acute Redose with IV lasix. Monitor daily weights. Likely related to his aortic insufficiency in light of endocarditis. Will need close follow up with CT surgery. (2) HCAP (healthcare-associated pneumonia): Current visit: Yes Status: Acute vs aspiration pneumonia. Add vanco/flagyl to rocephin. Will recheck CXR in 4 days. (3) Splenic abscess: Current visit: Yes Status: Acute Continue rocephin as above - due to endocarditis (4) Displaced bimalleolar fracture of left ankle: Current visit: Yes Status: Acute May use boot for comfort, but not requiring this at all times, per ortho. Qualifiers: Encounter type: sequela Fracture type: closed Qualified Code(s): S82.842S - Displaced bimalleolar fracture of left lower leg, sequela (5) Aortic insufficiency: Current visit: Yes Status: Acute Due to endocarditis. As above (6) Tinea corporis: Current visit: Yes Status: Acute (7) Brain abscess: Current visit: Yes Status: Acute Due to endocarditis. 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 (10) Aortic valve endocarditis: Current visit: Yes Status: Acute As above (11) MSSA (methicillin susceptible Staphylococcus aureus) septicemia: Current visit: Yes Status: Acute As above (12) Diabetes mellitus: Current visit: Yes Status: Chronic Continue basal bolus insulin (13) GERD (gastroesophageal reflux disease): Current visit: Yes Status: Chronic Continue PPI Subjective Interval history since last seen: Early this morning, had an acute episode of hypoxia down to 80's on room air as well as shortness of breath, requiring O2 at 2L. Clinically, this was suspicious for flash pulmonary edema and was treated with IV lasix as well as nitro paste. Evidently, the patient does [place] h[place] [facility] [place] The patient states that he has been coughing for 4-5 days, and the cough has been dry. Denies dizziness, chest pain, nausea, vomiting. Exam Narrative Exam Narrative: General: Middle-aged male, speaking with slurred speech and occasionally having difficulty findings words, A&Ox3, laying comforta coty in bed, no respiratory distress noted HEENT: EOMI, MMM, R facial droop Heart: RRR, + AWILDA Lungs: CTAB GI: abdomen is soft, nontender, nondistended Extremities: no e/c/c BLE's, wrinkles noted in B ankles Objective Objective Clinical Data: Abnormal lab results 08/04/18 08/04/18 08/04/18 Range/Units 05:58 14:10 14:10 RBC 2.86 L (4.50-6.00) m/cumm Hgb 8.2 L (13.5-17.5) g/dL Hct 26.2 L (40.0-50.0) % MCHC 31.3 L (32.0-36.0) g/dL RDW 15.1 H (11.8-14.1) % Plt Count 407 H (130-400) x1000/uL Absolute Monocytes 1.08 H (0.11-0.7) k/cumm Anion Gap 11.7 H (3-11) mmol/L BUN 42 H (7-18) mg/dL Creatinine 1.35 H (0.70-1.30) mg/dL Glucose 114 H (70-100) mg/dL Calcium 10.6 H (8.5-10.1) mg/dL Troponin I 0.07 H (0.00-0.06) ng/mL NT-Pro-B Natriuret Pep 6854 H ( - 299) pg/mL Vital Signs Temperature 36.4 C L 08/04/18 15:09 Temperature Source Tympanic 08/04/18 15:09 Pulse 64 08/04/18 15:09 Pulse Rhythm Regular 08/04/18 08:30 Respiratory Rate 18 08/04/18 15:09 Respiratory Effort Non-Labored 08/04/18 08:30 Respiratory Depth Normal 08/04/18 08:30 Respiratory Pattern Normal 08/04/18 08:30 Blood Pressure 122/50 L 08/04/18 15:09 Pulse Oximetry 94 L 08/04/18 15:09 Oxygen Delivery Method Room Air 08/04/18 15:09 Oxygen Flow Rate 0 08/04/18 15:09 Pain Level 9 08/04/18 10:43 Intake & Output 08/03/18 08/04/18 08/04/18 23:59 11:59 23:59 Intake Total 1060 / 1350 430 / 670 240 / 670 Output Total 350 / 350 400 / 750 350 / 750 Balance 710 / 1000 30 / -80 -110 / -80 Intake: IV 580 / 630 80 / 80 Oral 480 / 720 350 / 590 240 / 590 Output: Urine 350 / 350 400 / 750 350 / 750 Other: Urine Color Yellow Yellow Yellow Urine Appearance Clear Clear Clear Urine Odor Normal None Stool Size Moderate Stool Characteristics Soft Formed Brown Voiding Methods Toilet Urinal Urinal Laboratory Results WBC 8.31 k/cumm (4.4-10.8) 08/04/18 14:10 RBC 2.86 m/cumm (4.50-6.00) L 08/04/18 14:10 Hgb 8.2 g/dL (13.5-17.5) L 08/04/18 14:10 Hct 26.2 % (40.0-50.0) L 08/04/18 14:10 MCV 91.6 fL (80-95) 08/04/18 14:10 MCH 28.7 pg (27.0-33.0) 08/04/18 14:10 MCHC 31.3 g/dL (32.0-36.0) L 08/04/18 14:10 RDW 15.1 % (11.8-14.1) H 08/04/18 14:10 Plt Count 407 x1000/uL (130-400) H 08/04/18 14:10 MPV 9.3 fL (8.0-11.0) 08/04/18 14:10 Immature Gran % 0.2 08/04/18 14:10 Neutrophils % 51.7 08/04/18 14:10 Lymphocytes % 26.8 08/04/18 14:10 Monocytes % 13.0 08/04/18 14:10 Eosinophils % 7.0 08/04/18 14:10 Basophils % 1.3 08/04/18 14:10 Absolute Neutrophils 4.29 k/cumm (1.2-6.7) 08/04/18 14:10 Absolute Lymphocytes 2.23 k/cumm (1.2-3.4) 08/04/18 14:10 Absolute Monocytes 1.08 k/cumm (0.11-0.7) H 08/04/18 14:10 Absolute Eosinophils 0.58 k/cumm (0.0-0.7) 08/04/18 14:10 Absolute Basophils 0.11 k/cumm (0.0-0.2) 08/04/18 14:10 Polychromasia Present 08/04/18 14:10 Anisocytosis 1+ 08/04/18 14:10 Sodium 137 mmol/L (136-145) 08/04/18 05:58 Potassium 4.7 mmol/L (3.5-5.1) 08/04/18 05:58 Chloride 100 mmol/L (98-107) 08/04/18 05:58 Carbon Dioxide 25.3 mmol/L (21.0-32.0) 08/04/18 05:58 Anion Gap 11.7 mmol/L (3-11) H 08/04/18 05:58 BUN 42 mg/dL (7-18) H 08/04/18 05:58 Creatinine 1.35 mg/dL (0.70-1.30) H 08/04/18 05:58 Estimated GFR/1.73 m2 55.50 (mL/min/1.73m2) 08/04/18 05:58 Glucose 114 mg/dL (70-100) H 08/04/18 05:58 Calcium 10.6 mg/dL (8.5-10.1) H 08/04/18 05:58 Magnesium 2.0 mg/dL (1.8-2.4) 08/04/18 05:58 Troponin I 0.07 ng/mL (0.00-0.06) H 08/04/18 14:10 NT-Pro-B Natriuret Pep Cancelled 08/04/18 11:29 CXR: 1. Decreased degree of congestive heart failure/pulmonary edema. 2. Persistent bilateral multifocal opacities, concerning for pneumonia.
[2018-08-04] MEDS: metroNIDAZOLE 500 MG/100 ML BAG 100 MG IVPB ×2 (16:12→23:10)
[2018-08-04] MEDS: Enoxaparin 40 MG/0.4 ML SYR SC (17:45)
[2018-08-04] MEDS: Patch Removal 1 EACH TD (17:45)
[2018-08-04] MEDS: Water,Injection,Sterile 10 ML VIAL (18:33)
[2018-08-04] MEDS: VANCOMYCIN 1,250 MG in Normal Saline 250 ML 166.667 MG IVPB (18:33)
[2018-08-04] MEDS: Insulin Glargine 300 UNITS/3 ML PEN 35 UNITS SC (22:25)
[2018-08-04] MEDS: Melatonin 3 MG TAB 6 MG PO (22:25)
[2018-08-05 04:00] VITALS: BP 138/57; PULSE 105; RESP 19; TEMP 36.4; O2SAT 95
[2018-08-05] MEDS: cefTRIAXone 2 GM/50 ML BAG IVPB ×2 (05:15→17:14)
[2018-08-05] MEDS: VANCOMYCIN 1,250 MG in Normal Saline 250 ML 167 MG IVPB (06:02)
[2018-08-05 07:30] VITALS: BP 144/52; PULSE 96; RESP 18; TEMP 36.1; O2SAT 92
[2018-08-05] MEDS: levETIRAcetam 500 MG TAB PO ×2 (08:12→20:16)
[2018-08-05] MEDS: Lisinopril 20 MG TAB 40 MG PO (08:12)
[2018-08-05] MEDS: Docusate Sodium 100 MG CAP PO (08:12)
[2018-08-05] MEDS: Gabapentin 300 MG CAP PO ×2 (08:12→20:17)
[2018-08-05] MEDS: Furosemide 40 MG TAB PO (08:12)
[2018-08-05] MEDS: DULoxetine 30 MG CAP PO (08:12)
[2018-08-05] MEDS: hydrALAZINE 25 MG TAB 50 MG PO ×3 (08:12→20:16)
[2018-08-05] MEDS: Pantoprazole 40 MG TABCR PO (08:13)
[2018-08-05] MEDS: metroNIDAZOLE 500 MG/100 ML BAG 100 MG IVPB ×3 (08:14→23:59)
--- NOTE | 2018-08-05 08:17 | W.SPEECHEVAL ---
Date of service: 08/05/18 Time of Service: 07:00 Speech Therapy Evaluation Note: REFERRING PROVIDER: Dr. Akers BACKGROUND This is a 52 year old right-handed male who originally presented to the ED on 06/10/18 with a left MCA CVA with right hemiparesis and dysarthria (and dysphagia, now resolved). He was [place] [facility] [place] and has now returned to [facility] for extended care. He has had multiple other medical difficulties during this time (e.g., cardiac, splenic, pulmonary). He continues to show late-effect dysarthria, so a speech evaluation was requested. PMH: DM II, HTN, GERD, hepatitis C, chronic pain, depression, h/o DVT, h/o use of the following: tobacco ETOH, substance. OBJECTIVE Nursing reports: - T: 36.1 - O2 sat: 92% on 2L via NC - LS: CTA and diminished bilaterally (B) in the presence of ABX - Decreased speech intelligibility with increased fatigue. The patient (pt) is watching TV but is willing to turn it off in order to work with me. He makes good direct eye contact and offers an asymmetrical smile (decreased on the right (R)) and a slurred but intelligible verbal greeting. He shows a normal amount of spontaneous conversational speech but speech rate is slow, consonant production is imprecise and, although he shows no oral groping movements, he seems to use longer thought processing time in advance of producing some word-initial phonemes. He also shows occasional consonant omissions and substitutions (e.g., hosible vs. 'hospital'). No vowel distortions are noted. No short rushes of speech or slow/quick involuntary movements are seen. He is A & O x 3 (person, place & event, but not time). Oral Sensorimotor Exam The pt has his own dentition but is partially edentulous in all 4 quadrants. He has no partial dentures. Oral hygiene is fair but he denies any dental discomfort. Oral sensation is WNL-B for buccal, labial & lingual areas. He shows a R facial droop. Motorically, his smile is asymmetrical as mentioned above. Labiobuccal strength is decreased on the R. He shows a mild R lingual deviation on protrusion in a setting of good excursion. No lingual fasciculations are seen. Lingual lateralization is WNL-B as are lingual rapid alternating movements. Lingual strength is decreased for the R tongue base. Volitional cough & throat-clear are both strong. Velopharyngeal elevation is moderately strong and symmetrical. Automatic oral motor movements are WNL. Speech intelligibility to this unfamiliar listener in the presence of mild background noise is 80% secondary to imprecise, missing and replaced consonants. Respiration is compromised for longer utterances (e.g., moderately-severely decreased for both a 15-syllable sentence on imitation and for reading at paragraph level). Maximum phonation time: 19 seconds. S/Z ratio: .83 with moderately-severely decreased /s/ & /z/. Vocal quality, intensity, pitch & intonation are WNL. No vocal tremor is noted. Speech rate is perceptually slow. Repetitive (CVCVCV) speech is WNL; coarticulation speech ([id number]) is slower but accurate. Production accuracy of multisyllabic words on imitation: 2-syllable: 75%; 3-syllable: 75%; 4 syllable: 25%; 5-syllable: 0%. Assessment of word-retrieval skills is done to r/o aphasia as a contributing factor to his longer thought-processing times. - Confrontation naming of real objects: 100% - Convergent naming task: 100% - Divergent naming task: max 12 (WNL) The pt is trialed on modes of dyarthria therapy as well as OM exercises. He is responsive to both imitation and phonetic derivation therapy modes and is able and willing to do OM exercises and speech tasks. INTERPRETATION The pt shows a moderate flaccid dysarthria, likely due to his recent L CVA. He is not felt to have either apraxia of speech or expressive aphasia. Given that 1) his dysphagia resolved more quickly than his dysarthria, and 2) he still shows a moderate severity of dysarthria at almost 2 months post-onset, it is likely that the dysarthria will take significantly longer to resolve and, in fact, he may always have some degree of residual dysarthria. This is explained to the pt and he understands this. RECOMMENDATIONS 1. Speech therapy to maximize functional communication. 2. Referral for follow-up speech therapy upon pt's d/c from [facility] for communication concerns. Thank you for referring this pt.
--- NOTE | 2018-08-05 08:38 | EVALE_ITS ---
Date of service: 08/05/18 Time of Service: 07:00 Speech Therapy Evaluation Note: REFERRING PROVIDER: Dr. Akers BACKGROUND This is a 52 year old right-handed male who originally presented to the ED on 06/10/18 with a left MCA CVA with right hemiparesis and dysarthria (and dysphagia, now resolved). [place] [facility] [place] now returned to [facility] for extended care. He has had multiple other medical difficulties during this time (e.g., cardiac, splenic, pulmonary). He continues to show late-effect dysarthria, so a speech evaluation was requested. PMH: DM II, HTN, GERD, hepatitis C, chronic pain, depression, h/o DVT, h/o use of the following: tobacco ETOH, substance. OBJECTIVE Nursing reports: - T: 36.1 - O2 sat: 92% on 2L via NC - LS: CTA and diminished bilaterally (B) in the presence of ABX - Decreased speech intelligibility with increased fatigue. The patient (pt) is watching TV but is willing to turn it off in order to work with me. He makes good direct eye contact and offers an asymmetrical smile (decreased on the right (R)) and a slurred but intelligible verbal greeting. He shows a normal amount of spontaneous conversational speech but speech rate is slow, consonant production is imprecise and, although he shows no oral groping movements, he seems to use longer thought processing time in advance of producing some word-initial phonemes. He also shows occasional consonant omissions and substitutions (e.g., hosible vs. 'hospital'). No vowel distortions are noted. No short rushes of speech or slow/quick involuntary movements are seen. He is A & O x 3 (person, place & event, but not time). Oral Sensorimotor Exam The pt has his own dentition but is partially edentulous in all 4 quadrants. He has no partial dentures. Oral hygiene is fair but he denies any dental discomfort. Oral sensation is WNL-B for buccal, labial & lingual areas. He shows a R facial droop. Motorically, his smile is asymmetrical as mentioned above. Labiobuccal strength is decreased on the R. He shows a mild R lingual deviation on protrusion in a setting of good excursion. No lingual fasciculations are seen. Lingual lateralization is WNL-B as are lingual rapid alternating movements. Lingual strength is decreased for the R tongue base. Volitional cough & throat-clear are both strong. Velopharyngeal elevation is moderately strong and symmetrical. Automatic oral motor movements are WNL. Speech intelligibility to this unfamiliar listener in the presence of mild background noise is 80% secondary to imprecise, missing and replaced consonants. Respiration is compromised for longer utterances (e.g., moderately-severely decreased for both a 15-syllable sentence on imitation and for reading at paragraph level). Maximum phonation time: 19 seconds. S/Z ratio: .83 with moderately-severely decreased /s/ & /z/. Vocal quality, intensity, pitch & intonation are WNL. No vocal tremor is noted. Speech rate is perceptually slow. Repetitive (CVCVCV) speech is WNL; coarticulation speech ([id number]) is slower but accurate. Production accuracy of multisyllabic words on imitation: 2-syllable: 75%; 3-syllable: 75%; 4 syllable: 25%; 5-syllable: 0%. Assessment of word-retrieval skills is done to r/o aphasia as a contributing factor to his longer thought-processing times. - Confrontation naming of real objects: 100% - Convergent naming task: 100% - Divergent naming task: max 12 (WNL) The pt is trialed on modes of dyarthria therapy as well as OM exercises. He is responsive to both imitation and phonetic derivation therapy modes and is able and willing to do OM exercises and speech tasks. INTERPRETATION The pt shows a moderate flaccid dysarthria, likely due to his recent L CVA. He is not felt to have either apraxia of speech or expressive aphasia. Given that 1) his dysphagia resolved more quickly than his dysarthria, and 2) he still shows a moderate severity of dysarthria at almost 2 months post-onset, it is likely that the dysarthria will take significantly longer to resolve and, in fact, he may always have some degree of residual dysarthria. This is explained to the pt and he understands this. RECOMMENDATIONS 1. Speech therapy to maximize functional communication. 2. Referral for follow-up speech therapy upon pt's d/c from [facility] for communication concerns. Thank you for referring this pt.
--- NOTE | 2018-08-05 11:08 | PT.INTREAT ---
Date of service: 08/05/18 Time of Service: 09:10 PT Notes Inpatient Physical Therapy Treatment Note [facility] Date: 08/05/18 SUBJECTIVE: Mio reports that he is tired on his right side. OBJECTIVE: [] BED MOBILITY/TRANSFERS Supine-sit: SBA Sit-stand: min-mod assist of 2 Stand-sit: min A GAIT Assistive Device: HW Weight bearing: AT Assist: mod/max of 1 and mod A of 1. Distance: 7-8 steps Deviation: gait/ HW sequencing. THEREX: completed his ther ex routine in bed. Added in ROM t/o left ankle. See flowsheet for details. ASSESSMENT: tolerated session well. Required encouragement as he had some self doubt while on his feet. Opted to ambulate with boot today, due to increased reservations. will look into an over the counter ASO for support. PLAN: will continue to progress his overall strengthening and functional mobility following PT POC> TREATMENT CODE/TIME: 25 min. TPx1, TAx1.
[2018-08-05] MEDS: Normal Saline Flush 10 ML SYR IVP ×3 (12:14→23:59)
--- NOTE | 2018-08-05 14:37 | W.PM.PROGNOT ---
Date of Service Date of service: 08/05/18 Time of Service: 14:37 Subjective Patient reports: feels better Interval history since last seen: Using 2 L of oxygen for comfort. Slight crackles in lower bases bilaterally. No JVD, no edema, give additional 20 mg Furosemide IVP. Continue to monitor. Ambulatory with PT today. Objective Objective Clinical Data: Abnormal lab results 08/04/18 08/04/18 Range/Units 14:10 14:10 RBC 2.86 L (4.50-6.00) m/cumm Hgb 8.2 L (13.5-17.5) g/dL Hct 26.2 L (40.0-50.0) % MCHC 31.3 L (32.0-36.0) g/dL RDW 15.1 H (11.8-14.1) % Plt Count 407 H (130-400) x1000/uL Absolute Monocytes 1.08 H (0.11-0.7) k/cumm Troponin I 0.07 H (0.00-0.06) ng/mL Vital Signs Temperature 36.1 C L 08/05/18 07:30 Temperature Source Tympanic 08/05/18 07:30 Pulse 96 H 08/05/18 07:30 Pulse Rhythm Regular 08/05/18 08:41 Respiratory Rate 18 08/05/18 07:30 Respiratory Effort Non-Labored 08/05/18 08:41 Respiratory Depth Normal 08/05/18 08:41 Respiratory Pattern Normal 08/05/18 08:41 Blood Pressure 144/52 H 08/05/18 07:30 Pulse Oximetry 92 L 08/05/18 07:30 Oxygen Delivery Method Room Air 08/05/18 07:30 Oxygen Flow Rate 0 08/05/18 07:30 Pain Level 0 08/05/18 07:30 Intake & Output 08/04/18 08/05/18 08/05/18 23:59 11:59 23:59 Intake Total 900 / 1330 820 / 1460 640 / 1460 Output Total 675 / 1075 300 / 850 550 / 850 Balance 225 / 255 520 / 610 90 / 610 Weight 88.6 kg Intake: IV 420 / 500 520 / 520 Oral 480 / 830 300 / 940 640 / 940 Output: Urine 675 / 1075 300 / 850 550 / 850 Other: Urine Color Pale Yellow Dark Annalisa Urine Appearance Clear Clear Clear Urine Odor None Normal Foul Comment large amount spilled on bed Voiding Methods Urinal Urinal Urinal Laboratory Results WBC 8.31 k/cumm (4.4-10.8) 08/04/18 14:10 RBC 2.86 m/cumm (4.50-6.00) L 08/04/18 14:10 Hgb 8.2 g/dL (13.5-17.5) L 08/04/18 14:10 Hct 26.2 % (40.0-50.0) L 08/04/18 14:10 MCV 91.6 fL (80-95) 08/04/18 14:10 MCH 28.7 pg (27.0-33.0) 08/04/18 14:10 MCHC 31.3 g/dL (32.0-36.0) L 08/04/18 14:10 RDW 15.1 % (11.8-14.1) H 08/04/18 14:10 Plt Count 407 x1000/uL (130-400) H 08/04/18 14:10 MPV 9.3 fL (8.0-11.0) 08/04/18 14:10 Immature Gran % 0.2 08/04/18 14:10 Neutrophils % 51.7 08/04/18 14:10 Lymphocytes % 26.8 08/04/18 14:10 Monocytes % 13.0 08/04/18 14:10 Eosinophils % 7.0 08/04/18 14:10 Basophils % 1.3 08/04/18 14:10 Absolute Neutrophils 4.29 k/cumm (1.2-6.7) 08/04/18 14:10 Absolute Lymphocytes 2.23 k/cumm (1.2-3.4) 08/04/18 14:10 Absolute Monocytes 1.08 k/cumm (0.11-0.7) H 08/04/18 14:10 Absolute Eosinophils 0.58 k/cumm (0.0-0.7) 08/04/18 14:10 Absolute Basophils 0.11 k/cumm (0.0-0.2) 08/04/18 14:10 Polychromasia Present 08/04/18 14:10 Anisocytosis 1+ 08/04/18 14:10 Sodium 137 mmol/L (136-145) 08/04/18 05:58 Potassium 4.7 mmol/L (3.5-5.1) 08/04/18 05:58 Chloride 100 mmol/L (98-107) 08/04/18 05:58 Carbon Dioxide 25.3 mmol/L (21.0-32.0) 08/04/18 05:58 Anion Gap 11.7 mmol/L (3-11) H 08/04/18 05:58 BUN 42 mg/dL (7-18) H 08/04/18 05:58 Creatinine 1.35 mg/dL (0.70-1.30) H 08/04/18 05:58 Estimated GFR/1.73 m2 55.50 (mL/min/1.73m2) 08/04/18 05:58 Glucose 114 mg/dL (70-100) H 08/04/18 05:58 Calcium 10.6 mg/dL (8.5-10.1) H 08/04/18 05:58 Magnesium 2.0 mg/dL (1.8-2.4) 08/04/18 05:58 Troponin I 0.07 ng/mL (0.00-0.06) H 08/04/18 14:10 NT-Pro-B Natriuret Pep Cancelled 08/04/18 11:29
[2018-08-05] MEDS: Furosemide 20 MG/2 ML VIAL IVP (15:07)
[2018-08-05 15:19] VITALS: BP 112/54; PULSE 98; RESP 20; TEMP 36.3; O2SAT 96
[2018-08-05] MEDS: Enoxaparin 40 MG/0.4 ML SYR SC (17:13)
[2018-08-05] MEDS: Insulin Aspart 300 UNITS/3 ML PEN SC (17:14)
[2018-08-05] MEDS: VANCOMYCIN 1,250 MG in Normal Saline 250 ML 166.67 MG IVPB (18:13)
[2018-08-05] MEDS: Insulin Glargine 300 UNITS/3 ML PEN 35 UNITS SC (22:04)
[2018-08-05] MEDS: Melatonin 3 MG TAB 6 MG PO (22:05)
[2018-08-05 23:55] VITALS: BP 96/54; PULSE 66; RESP 17; TEMP 36.7; O2SAT 93
[2018-08-06] MEDS: cefTRIAXone 2 GM/50 ML BAG IVPB ×2 (05:05→17:35)
[2018-08-06] MEDS: Normal Saline Flush 10 ML SYR IVP ×3 (05:06→16:20)
[2018-08-06 05:32] LABS: Abs Immature Grans 0.02 k/cumm (0.0-0.09); Absolute Basophil Count 0.11 k/cumm (0.0-0.2); Absolute Eosinophil Count 0.66 k/cumm (0.0-0.7); Absolute Lymphocyte Count 2.08 k/cumm (1.2-3.4); Absolute Monocyte Count 1.15 k/cumm (0.11-0.7); Absolute Neutrophil Count 4.27 k/cumm (1.2-6.7); Basophils % 1.3; HGB 8.1 g/dL (13.5-17.5); Immature Grans % 0.2; Lymphocytes % 25.1; Mean Corp. HGB Concentration 31.2 g/dL (32.0-36.0); Mean Corpuscular Hemoglobin 28.5 pg (27.0-33.0); Mean Corpuscular Volume 91.5 fL (80-95); Mean Platelet Volume 9.3 fL (8.0-11.0); Monocytes % 13.9; Neutrophils % 51.5; Platelet Count 419 x1000/uL (130-400); RBC 2.84 m/cumm (4.50-6.00); White Blood Cell Count 8.29 k/cumm (4.4-10.8)
[2018-08-06 05:50] LABS: ALT 17 U/L (12-78); AST 12 U/L (15-37); Albumin 2.6 g/dL (3.4-5.0); Alkaline Phosphatase 57 U/L (46-116); Anion Gap 11.3 mmol/L (3-11); BUN 46 mg/dL (7-18); Bilirubin, Total 0.3 mg/dL (0.2-1.0); CO2 25.7 mmol/L (21.0-32.0); CREATININE 1.32 mg/dL (0.70-1.30); Calcium 9.6 mg/dL (8.5-10.1); Chloride 103 mmol/L (98-107); Estimated GFR 56.96 (mL/min/1.73m2); Glucose 101 mg/dL (70-100); Potassium 4.4 mmol/L (3.5-5.1); Sodium 140 mmol/L (136-145); Total Protein 7.3 g/dL (6.4-8.2)
[2018-08-06 05:52] LABS: Vancomycin, Trough 29.2 ug/mL (10.0-20.0)
[2018-08-06 06:00] LABS: C-Reactive Protein 6.47 mg/dL (0.0-0.3)
--- NOTE | 2018-08-06 06:57 | PDOC.CMPRO ---
- If Service Date Differs Date of service: 08/06/18 Time of Service: 06:57 Care Management Progress Note S/O: CM met with Mio in the room he had had much company and states he is feeling better everyday. Mio will need to apply for correction disability he does have a LTM application pending. CM has made a referral to [facility] for assistance with SSI. Mio did develop symptoms of fluid overload he is now on dailiy weights and being treated in addition to abscesses for healthcare acquired pneumonia. He will continue as SB1 at this time unless his management changes and need to transition to acute. Mio remains positive about his recovery and is grateful for the assistance he is being given here at the hospital. He continues to progress with PT and the plan will be for his antibiotics to complete on 08/23/18. He is scheduled to follow up with infectious disease at [facility] [place]. A: Mio is a 52 year old male that was admitted to SB1 status post embolic stroke and MSSA bacteremia, admitted for short term antibiotics IV and PT/OT P: Mio will remain at [facility] for the duration of his treatment and transition home with his significant other Arline. Referral to [facility] for assistance with disability and CM to follow up with LTM assistance in process and access to services. he will need home health services including PT/OT, OXYACETYLENE [employer]URNER and nursing at time of discharge.
--- NOTE | 2018-08-06 07:05 | CMPROGNOTE_ITS ---
- If Service Date Differs Date of service: 08/06/18 Time of Service: 06:57 Care Management Progress Note S/O: CM met with Mio in the room he had had much company and states he is feeling better everyday. Mio will need to apply for jail disability he does have a LTM application pending. CM has made a referral to [facility] for assistance with SSI. Mio did develop symptoms of fluid overload he is now on dailiy weights and being treated in addition to abscesses for healthcare acquired pneumonia. He will continue as SB1 at this time unless his management changes and need to transition to acute. Mio remains positive about his recovery and is grateful for the assistance he is being given here at the hospital. He continues to progress with PT and the plan will be for his antibiotics to complete on 08/23/18. He is scheduled to follow up with infectious disease at [place]. A: Mio is a 52 year old male that was admitted to SB1 status post embolic stroke and MSSA bacteremia, admitted for short term antibiotics IV and PT/OT P: Mio will remain at [facility] for the duration of his treatment and transition home with his significant other Arline. Referral to [facility] for assistance with disability and CM to follow up with LTM assistance in process and access to services. he will need home health services including PT/OT, [employer] and nursing at time of discharge.
[2018-08-06 07:55] VITALS: BP 124/57; PULSE 96; RESP 18; TEMP 36.8; O2SAT 97
[2018-08-06 08:10] VITALS: O2SAT 96
[2018-08-06] MEDS: hydrALAZINE 25 MG TAB 50 MG PO ×3 (08:12→20:49)
[2018-08-06] MEDS: Acetaminophen 325 MG TAB 650 MG PO (08:12)
[2018-08-06] MEDS: Pantoprazole 40 MG TABCR PO (08:12)
[2018-08-06] MEDS: levETIRAcetam 500 MG TAB PO ×2 (08:12→20:49)
[2018-08-06] MEDS: DULoxetine 30 MG CAP PO (08:12)
--- NOTE | 2018-08-06 08:12 | W.SPEECHPG ---
Date of service: 08/06/18 Time of Service: 07:15 Speech Therpy Note Note: SUBJECTIVE Patient (pt) is awake & reclined in bed with the TV on. Pt's is sleeping in the cintia-chair but wakes easily and both are agreeable to me working with him this morning. OBJECTIVE Nursing reports O2 sat of 96% on 2L via NC. Pt's conversational speech is a bit less precise than what was seen 24 hours ago, and remains so throughout the visit. This only changes/improves when he is verbally & visually cued to use specific oral muscles in an exaggerated manner. This increased mental focus on oral motor skills results in increased consonant preciseness as well as improved phoneme choice (i.e, the absence of phoneme omissions and substitutions). Consequently, his speech intelligibility then rises from an estimated 70% to 100%. Speech task: production of 1- & 2-syllable words using phonetic derivation/exaggerated speech with mild verbal cueing: - 1-syllable words: 90% - 2-syllable words: 80% Reveiw of oral motor exercises given to pt yesterday. (Pt states he did them twice yesterday evening.) Demonstration accuracy: 40% with moderate auditory & visual cues. Pt trialed on tongue-base exercises: demonstration accuracy: 50% Both pt's and nursing are instructed in both the OM & Tongue-base exercises. ASSESSMENT Despite having done the OM exercises yesterday, pt seems to be fairly unfamiliar with them this morning and requires additional instruction. He does have the ability to significantly increase his speech intelligiblilty if he focuses on increased oral motor movement. PLAN Today's nurse, Marisol, will help pt go through his OM & Tongue-base exercises each day that she has him as a pt, to insure that they get done. Instructed pt to try doing both exercises at least qd and, if possible, tid. He is agreeable to this. Explained to pt that he will be getting speech tasks as homework as well at his next ST visit. Continue ST plan of care.
[2018-08-06] MEDS: Furosemide 40 MG TAB PO (08:13)
[2018-08-06] MEDS: metroNIDAZOLE 500 MG/100 ML BAG 100 MG IVPB ×2 (08:15→16:19)
[2018-08-06] MEDS: Lisinopril 20 MG TAB 40 MG PO (08:18)
[2018-08-06 09:40] VITALS: O2SAT 95
--- NOTE | 2018-08-06 10:54 | DI.RAD_ITS ---
SYMPTOM/DIAGNOSIS: CRACKLES, INCREASING SOB PA AND LATERAL CHEST: AUGUST 06, 2018 Comparison is made with 04 August 2018. The heart is again noted to be mildly enlarged, A PICC line is again noted. There are small bilateral pleural effusions, unchanged. Bilateral patchy infiltrates are again noted, left greater than right. IMPRESSION: Stable bilateral infiltrates and effusions.
[2018-08-06] MEDS: VANCOMYCIN 1,000 MG in Normal Saline 250 ML 166.667 MG IVPB ×2 (10:57→23:02)
--- NOTE | 2018-08-06 12:16 | PTTR_ITS ---
Date of service: 08/05/18 Time of Service: 08:52 PT Notes Inpatient Physical Therapy Treatment Note [facility] Date: 08/03/2018 PRECAUTIONS: Fall. Standard. WBAT with air cast boot on L LE. Orthopedic shoe on R. Hemiwalker on L side. Sling to R UE for comfort. SUBJECTIVE: Patient reports that he had a not so good slept well last night. he reports pain on L LE and L shoulder related to walking activity. He denies nausea, dizziness, and vomiting. He reports no chest pain nor headache throughout PT session. Patient states that he was able to recover well from last therapy session without undue fatigue. OBJECTIVE: Patient seen resting in bed. Edema on R hand and distal foream still noticeable. Air cast boot on L and orthopedic shoe on R. Sling on R UE. PAIN:reported mild to moderate pain on L LE and R shoulder BED MOBILITY/TRANSFERS Rolling L/R: SBA Supine-sit: SBA Sit-supine: Minimal assist with verbal cues needed for correct L UE placement for support and safety Sit-stand: Minimal assist with verbal cues needed for correct L UE placement for support and safety Stand-sit: Minimal assist with verbal cues needed for correct L UE placement for support and safety Bed-Chair: Minimal assist of 2, verbal cues needed for correct L UE placement, weight shifting for opposirte LE clearance/advancement, and backing up for suppo rt and safety Chair-bed: Minimal assist of 2, verbal cues needed for correct L UE placement, weight shifting for opposirte LE clearance/advancement, and backing up for support and safety GAIT : Assistive Device: HW Weight bearing: WBAT on L LE with air cast boot on, orthopedic shoe on R, sliing on for R UE comfort Assist: Minimal assist of 2, Minimal assist of 2, verbal cues needed for correct L UE placement, weight shifting for opposirte LE clearance/advancement, and backing up for support and safety Distance: 20' x 2 Deviation: Decreased step height and length on R due to late effects of hemiparesis; decreased R knee flexion, and increased tendency to do a short double step on the R when fatigued; decreased R hip flexion needing moderate to maximum cueing for weight shifting onto L for R LE clearance ASSESSMENT: Patient demonstrates good tolerance to physical therapy session with observed improvement in terms of pain level, activity tolerance, self- efficacy/confidence, and participation level. PLAN: Patient to progress with mobility level, functional performance, and knowledge of HEP to achieve previously established goals. TREATMENT CODE/TIME: 56 [place] for [id number] beginning at 8:52 am.
--- NOTE | 2018-08-06 12:41 | PTTR_ITS ---
Date of service: 08/06/18 Time of Service: 09:51 PT Notes Inpatient Physical Therapy Treatment Note [facility] Date: 08/06/2018 PRECAUTIONS: Fall. Standard. WBAT with air cast boot on L LE. Orthopedic shoe on R. Hemiwalker on L side. Sling to R UE for comfort. SUBJECTIVE: Patient states that he had a big crowd of visitors yesterday for Father's Day and is quite proud Father's Day t-shirt he got. He is looking forward to walking today. He reports decreasing pain on L LE and L shoulder aggravated by movement. He denies nausea, dizziness, and vomiting. He reports no chest pain nor headache throughout PT session. Patient states that he was able to recover well from last therapy session without undue fatigue. OBJECTIVE: Patient seen resting in bed. Edema on R hand and distal forearm still noticeable. Sling on R UE. IV in L UE. PAIN:reported mild to moderate pain on L LE and R shoulder BED MOBILITY/TRANSFERS Rolling L/R: SBA Supine-sit: SBA Sit-supine: SBA Sit-stand: Minimal assist with verbal cues needed for correct L UE placement for support and safety Stand-sit: Minimal assist with verbal cues needed for correct L UE placement for support and safety Bed-Chair: Minimal assist of 2, verbal cues needed for correct L UE placement, weight shifting for opposite LE clearance/advancement, and backing up for support and safety Chair-bed: Minimal assist of 2, verbal cues needed for correct L UE placement, weight shifting for opposite LE clearance/advancement, and backing up for support and safety GAIT : Assistive Device: HW Weight bearing: WBAT on L LE with air cast boot on, orthopedic shoe on R, sliing on for R UE comfort Assist: Minimal assist of 2, Minimal assist of 2, verbal cues needed for correct L UE placement, weight shifting for opposite LE clearance/advancement, IV pole mangement, wheelchair follow, and backing up for support and safety Distance: 30' x 2 Deviation: Continueed decreased step height and length on R due to late effects of hemiparesis; decreased R knee flexion, and increased tendency to do a short double step on the R when fatigued; decreased R hip flexion needing moderate to maximum cueing for weight shifting onto L for R LE clearance ASSESSMENT: As of 08/03/2018, patient is to be WBAT on L LE WITHOUT air cast boot per orthopedic surgeon's recommendations. Patient to wear ASO on L ankle for stability, regualr sandals with good traction okay. Patient demonstrates good tolerance to physical therapy sessions over the weekend with observed improve ment in terms of pain level, activity tolerance, self-efficacy/confidence, and participation level. PLAN: Patient to progress with mobility level, functional performance, and knowledge of HEP to achieve previously established goals. TREATMENT CODE/TIME: 22656 x 34 minutes beginning at 9:51 am.
--- NOTE | 2018-08-06 13:19 | PT.INTREAT ---
Date of service: 08/06/18 Time of Service: 13:20 PT Notes Inpatient Physical Therapy Treatment Note [facility] Date: 08/06/2018 PRECAUTIONS: Fall, WBAT on L with ASO, WBAT on R, sling on R UE SUBJECTIVE: Patient is agreeable to participating in PT, although would like to get into bed after session, as he is feeling tired. OBJECTIVE: PAIN: Patient c/o R shoulder pain with adjustment of sling BED MOBILITY/TRANSFERS Sit-supine: SBA with HOB flat Sit-stand: Mod A from low toilet surface Stand-sit: CGA GAIT : Assistive Device: HW Weight bearing: WBAT B Assist: CGA Distance: 20' Deviation: Cueing for increased step-height on R and for weight shifting to L with R foot advancement THEREX: Patient completed a B LE strengthening program, in a supine position, as per flow sheet. ASSESSMENT: Patient tolerated session with c/o increased fatigue with activity, requiring several rest breaks between activities. He would benefit from continued gait and transfer training, as well as strengthening for improved ability to perform daily functional tasks at a more independent level. PLAN: Continue with PT's POC TREATMENT CODE/TIME: 25 minutes; [id number], [id number]
[2018-08-06 15:25] VITALS: BP 115/66; PULSE 87; RESP 18; TEMP 36.6; O2SAT 94
--- NOTE | 2018-08-06 15:27 | CHAPLAIN ---
Mio was sitting up in bed when I visited. It was difficult for me to understand everything he said, but he did tell me about the T-shirt with hand prints that was hanging behind him, the he'd received for Father's Day. He said he is resting comfortably and expects family members to be in later.
--- NOTE | 2018-08-06 15:42 | OT.INTREAT ---
Date of service: 08/06/18 Time of Service: 15:25 Occupational Therapy Notes Occupational Therapy Inpatient Treatment Note Date: 08/06/18 PRECAUTIONS: Fall, Standard SUBJECTIVE: Pt was sitting in bed when OT arrived. He was agreeable to OT session. OT had to adjust pts (R) arm sling as pts hand was hanging out with wrist in flexed position. OBJECTIVE: PAIN:no c/o pain BATHING: Sitting with max (A) set Upper Body: Pt functionally was able to (I) wash his face, (B) UE and upper thighs (I) with use of (L) UE. OT passively ranged pts (R) hand/digits into flexion and extension which pt tolerated well. ASSESSMENT/PLAN: Pt was able to perform washing routine with increased (I) with (L) UE only. He functionally was not able to use his (R) at this time which is limiting to his overall (I) in ADL routines. He requires vc throughout for performance (I). Pt will benefit from progression of ADLs to the standing position with increased functional activity tolerance at sink with susanne walker. TREATMENT CODES/TIME: 17724, 10 minutes (03:25) Renetta Wells OTR/[facility]
--- NOTE | 2018-08-06 15:47 | OTTR_ITS ---
Date of service: 08/06/18 Time of Service: 15:25 Occupational Therapy Notes Occupational Therapy Inpatient Treatment Note Date: 08/06/18 PRECAUTIONS: Fall, Standard SUBJECTIVE: Pt was sitting in bed when OT arrived. He was agreeable to OT session. OT had to adjust pts (R) arm sling as pts hand was hanging out with wrist in flexed position. OBJECTIVE: PAIN:no c/o pain BATHING: Sitting with max (A) set Upper Body: Pt functionally was able to (I) wash his face, (B) UE and upper thighs (I) with use of (L) UE. OT passively ranged pts (R) hand/digits into flexion and extension which pt tolerated well. ASSESSMENT/PLAN: Pt was able to perform washing routine with increased (I) with (L) UE only. He functionally was not able to use his (R) at this time which is limiting to his overall (I) in ADL routines. He requires vc throughout for performance (I). Pt will benefit from progression of ADLs to the standing position with increased functional activity tolerance at sink with susanne walker. TREATMENT CODES/TIME: 34079, 10 minutes (03:25) Renetta Wells OTR/[facility]
[2018-08-06] MEDS: Enoxaparin 40 MG/0.4 ML SYR SC (17:33)
[2018-08-06] MEDS: Insulin Aspart 300 UNITS/3 ML PEN SC (17:34)
[2018-08-06 20:38] VITALS: BP 138/66; PULSE 89; RESP 40; TEMP 37; O2SAT 94
[2018-08-06] MEDS: Gabapentin 300 MG CAP PO (20:48)
[2018-08-06] MEDS: Docusate Sodium 100 MG CAP PO (20:49)
[2018-08-06] MEDS: Sennosides/Docusate Sodium TAB 1 TAB PO (20:49)
[2018-08-06] MEDS: Furosemide 20 MG/2 ML VIAL IVP (21:10)
[2018-08-06] MEDS: LORazepam 0.5 MG TAB SL (21:10)
[2018-08-06] MEDS: Insulin Glargine 300 UNITS/3 ML PEN 35 UNITS SC (23:02)
[2018-08-07] VITALS (10 sets, daily range): BP systolic 121–151; BP diastolic 45–64; PULSE 82–96; RESP 18–22; TEMP 34–36.8; O2SAT 91–98
[2018-08-07] MEDS: metroNIDAZOLE 500 MG/100 ML BAG 100 MG IVPB ×3 (00:57→16:30)
[2018-08-07] MEDS: cefTRIAXone 2 GM/50 ML BAG IVPB ×2 (05:36→18:27)
[2018-08-07] MEDS: Normal Saline Flush 10 ML SYR IVP ×3 (05:40→16:29)
--- NOTE | 2018-08-07 08:28 | DI.RAD_ITS ---
SYMPTOM/DIAGNOSIS: SHORTNESS OF BREATH PORTABLE SEMI-ERECT CHEST: Comparison is made with August 08. The lung bases are poorly penetrated. Again noted are bilateral upper and lower lobe infiltrates which may be slightly worse when compared with the previous exam vs differences in technique. The heart size is unchanged. A PICC line is again noted. IMPRESSION: Stable to slightly worsening bilateral pneumonia.
[2018-08-07] MEDS: Furosemide 40 MG/4 ML VIAL IVP ×2 (08:40→17:15)
[2018-08-07] MEDS: Lisinopril 20 MG TAB 40 MG PO (10:39)
[2018-08-07] MEDS: Sennosides/Docusate Sodium TAB 1 TAB PO ×2 (10:39→19:43)
[2018-08-07] MEDS: hydrALAZINE 25 MG TAB 50 MG PO ×2 (10:39→19:43)
[2018-08-07] MEDS: Pantoprazole 40 MG TABCR PO (10:40)
[2018-08-07] MEDS: DULoxetine 30 MG CAP PO (10:40)
[2018-08-07] MEDS: levETIRAcetam 500 MG TAB PO ×2 (10:40→19:43)
[2018-08-07] MEDS: VANCOMYCIN 1,000 MG in Normal Saline 250 ML 167 MG IVPB (10:42)
--- NOTE | 2018-08-07 11:33 | OT.INNT ---
Date of service: 08/07/18 Time of Service: 11:33 Occupational Therapy Notes 08/07/18 OT went to see pt this morning 2x, he denies OT services reporting that he does not feel well this morning and would like to hold. OT will re-visit pt tomorrow morning. Renetta Wells OTR/[facility]
[2018-08-07 11:48] LABS: Abs Immature Grans 0.03 k/cumm (0.0-0.09); Absolute Basophil Count 0.12 k/cumm (0.0-0.2); Absolute Eosinophil Count 0.51 k/cumm (0.0-0.7); Absolute Lymphocyte Count 1.74 k/cumm (1.2-3.4); Absolute Monocyte Count 1.11 k/cumm (0.11-0.7); Absolute Neutrophil Count 5.22 k/cumm (1.2-6.7); Basophils % 1.4; Eosinophils % 5.8; HCT 27.2 % (40.0-50.0); HGB 8.6 g/dL (13.5-17.5); Immature Grans % 0.3; Lymphocytes % 19.9; Mean Corp. HGB Concentration 31.6 g/dL (32.0-36.0); Mean Corpuscular Volume 91.6 fL (80-95); Mean Platelet Volume 9.3 fL (8.0-11.0); Monocytes % 12.7; Neutrophils % 59.9; Platelet Count 452 x1000/uL (130-400); RBC 2.97 m/cumm (4.50-6.00); White Blood Cell Count 8.73 k/cumm (4.4-10.8)
--- NOTE | 2018-08-07 12:04 | PDOC.CMPRO ---
Care Management Progress Note O-Palliative Care Consult faxed to [facility] office. They are awaiting return of Dr Woods to office on to schedule time for her to see him. P-Pall Consult to be scheduled.
[2018-08-07 12:08] LABS: Anion Gap 13.3 mmol/L (3-11); BUN 38 mg/dL (7-18); CO2 22.7 mmol/L (21.0-32.0); Calcium 10.1 mg/dL (8.5-10.1); Chloride 106 mmol/L (98-107); Glucose 104 mg/dL (70-100); Magnesium 1.8 mg/dL (1.8-2.4); NT-proBNP 8289 pg/mL; Potassium 4.3 mmol/L (3.5-5.1); Sodium 142 mmol/L (136-145)
[2018-08-07] MEDS: LORazepam 0.5 MG TAB PO (13:31)
--- NOTE | 2018-08-07 13:38 | PHARADMIT ---
Admission Pharmacy Clinical Review swingbed for abx for MSSA bacteremia w/ hx septic brain emboli, CVA, aorti Code Status Full Code Current Weight 89.2 kg Renally Cleared and Narrow Therapeutic Index Meds Crcl ~83.00 mL/min current meds okay QTc Value / Action Taken QTc 487 BP Control, Fever bp 121/45 afebrile Electrolytes reviewed within normal limits DVT Prophylaxis enoxaparin Opiate Usage / Scheduled Bowel Regimen Ordered josiah/josiah and prn Plt/SCr for Heparin / Enoxaparin plt 452 SCr 1.10 INR for Warfarin n/a H/H stable, WBC/Bands h/h 8.6/27.2 wbc 8.73 Antibiotic appropriateness ceftriaxone (through 08/23/18), metronidazole, and vanco vanco and ceftriaxone were added due to hcap/aspiration pneumonia (day 4 starts this evening) Cultures and Sensitivities none Surgical ABX d/c within 24 hr n/a DM control / Insulin Dosing BG 104 scheduled glargine and sliding scale insulin Heart Failure (Check EF%) (COLIN's, B-Block, Diuretics) furosemide, lisinopril, metoprolol IV to PO Switch n/a Home Meds Reviewed yes Home Meds Not Ordered albuterol, losartan, metformin, omeprazole Comments
--- NOTE | 2018-08-07 13:40 | MERGE_ITS ---
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 Compared to the June 2018 study the ventricle is now moderately to severely dilated. The degree of aortic regurgitation is similar. There is still a mass attached to the aortic valve. Summary: 1. Left ventricle: The cavity size was moderately to severely dilated. Wall thickness was normal. Systolic function was normal. The estimated ejection fraction was 60-65%. Wall motion was normal; there were no regional wall motion abnormalities. Internal dimension, ED (PLAX): 7.0cm. Internal dimension, ES (PLAX): 4.4cm. 2. Aortic valve: There was a smallcalcified, mobile mass on the left ventricular aspect of the right coronary cusp consistent with recent endocarditis. There was moderate to severe regurgitation. 3. Mitral valve: There was mild to moderate regurgitation. 4. Right ventricle: The cavity size was normal. Wall thickness was normal. Systolic function was normal. 5. Pulmonary arteries: Pulmonary systolic pressure was increased, in the range of 45mm Hg to 50mm Hg. 6. Pericardium, extracardiac: There was a left pleural effusion. *PATIENT PRESENTATION* Height: 180.3cm ((71in) ) S/D Pressure: 151 / 61 Weight: 88.9kg ((195.6lb) ) BSA: 2.13m^2 Test start time: 01:50 PM. Test stop time: 02:50 PM. PERFORMING Unknown PERFORMING [facility] CONSULTING Zach Sanders HOUSEKEEPER AND LAUNDRY ASSISTANT Wendy Myers RT (R)(CT), [facility] ORDERING [place] REFERRING [place] *PROCEDURE DATA* Procedure information: The patient was identified by two identifiers. This study was interpreted by [facility]. Pertinent images and digital data are archived for permanent storage and are available for subsequent review. No prior study was available for comparison. Study status: Routine. Transthoracic echocardiography. M-mode, complete 2D, complete spectral Doppler, and color Doppler. A Transthoracic Echocardiogram was performed. Scanning was performed from the parasternal, apical, subcostal, and suprasternal notch acoustic windows. Images were obtained using an [id number] cardiac ultrasound machine. Image quality was adequate. Study completion: The patient tolerated the procedure well. There were no complications. History: PMH: Follow up aortic valve regurg. Endocarditis. *CARDIAC ANATOMY* Left ventricle: The cavity size was moderately to severely dilated. Wall thickness was normal. Systolic function was normal. The estimated ejection fraction was 60-65%. Wall motion was normal; there were no regional wall motion abnormalities. Aortic valve: Trileaflet; mildly thickened, mildly calcified leaflets. Mobility was not restricted. There was a smallcalcified, mobile mass on the left ventricular aspect of the right coronary cusp consistent with recent endocarditis. Doppler: Transvalvular velocity was within the normal range. There was no stenosis. There was moderate to severe regurgitation. VTI ratio of LVOT to aortic valve: 0.84. Valve area (VTI): 3.7cm^2. Indexed valve area (VTI): 1.7cm^2/m^2. Peak velocity ratio of LVOT to aortic valve: 0.86. Valve area (Vmax): 3.8cm^2. Indexed valve area (Vmax): 1.8cm^2/m^2. Mean velocity ratio of LVOT to aortic valve: 0.88. Valve area (Vmean): 3.9cm^2. Indexed valve area (Vmean): 1.8cm^2/m^2. Mean gradient (S): 10.7mm Hg. Peak gradient (S): 19.1mm Hg. Aorta: Aortic root: The aortic root was normal in size. Ascending aorta: The ascending aorta was normal in size. Mitral valve: Mildly thickened leaflets. Mobility was not restricted. Doppler: Transvalvular velocity was within the normal range. There was no evidence for stenosis. There was mild to moderate regurgitation. Valve area by pressure half-time: 10.7cm^2. Indexed valve area by pressure half-time: 5cm^2/m^2. Peak gradient (D): 5mm Hg. Left atrium: The atrium was normal in size. Right ventricle: The cavity size was normal. Wall thickness was normal. Systolic function was normal. Pulmonic valve: Structurally normal valve. Doppler: Transvalvular velocity was within the normal range. There was no evidence for stenosis. There was no significant regurgitation. Peak gradient (S): 3.9mm Hg. Tricuspid valve: Structurally normal valve. Doppler: Transvalvular velocity was within the normal range. There was no evidence for stenosis. There was mild regurgitation. Pulmonary artery: Pulmonary systolic pressure was increased, in the range of 45mm Hg to 50mm Hg. Right atrium: The atrium was normal in size. Pericardium: There was no pericardial effusion. Systemic veins: Inferior vena cava: Well visualized. The vessel was patent and normal in size. The respirophasic diameter changes were blunted (less than 50%). Pleura: There was a left pleural effusion. Baseline ECG: Normal sinus rhythm. Measurements Left ventricle Value Reference LV ID, ED, PLAX (H) 7.0 cm 3.5 - 6.0 LV ID, ES, PLAX (H) 4.4 cm 2.1 - 4.0 LV PW thickness, ED, PLAX 0.7 cm LV end-diastolic volume, 1-p A2C 216 ml LV ejection fraction, 1-p A2C 53 % LV end-diastolic volume, 1-p A4C 216 ml LV ejection fraction, 1-p A4C 65 % LV e', lateral 0.126 m/sec LV E/e', lateral 9 LV e', medial 0.062 m/sec LV E/e', medial 18 LV e', average 0.094 m/sec LV E/e', average 12 Ventricular septum Value Reference IVS thickness, ED, PLAX 1.0 cm LVOT Value Reference LVOT ID, A-P 2.4 cm LVOT area 4.4 cm^2 LVOT peak velocity, S 1.88 m/sec LVOT mean velocity, S 1.36 m/sec LVOT VTI, S 34.6 cm LVOT peak gradient, S 14.1 mm Hg LVOT mean gradient, S 8.2 mm Hg Stroke volume (SV), LVOT DP 152 ml Stroke index (SV/bsa), LVOT DP 72 ml/m^2 Aortic valve Value Reference Aortic valve peak velocity, S 2.2 m/sec Aortic valve mean velocity, S 1.55 m/sec Aortic valve VTI, S 41.0 cm Aortic mean gradient, S 10.7 mm Hg Aortic peak gradient, S 19.1 mm Hg VTI ratio, LVOT/AV 0.84 Aortic valve area, VTI 3.7 cm^2 Velocity ratio, peak, LVOT/AV 0.86 Aortic valve area, peak velocity 3.8 cm^2 Velocity ratio, mean, LVOT/AV 0.88 Aortic valve area, mean velocity 3.9 cm^2 Aortic valve area/bsa, mean velocity 1.8 cm^2/m^2 Aorta Value Reference Aortic root ID, ED 3.2 cm Ascending aorta ID, A-P, S 3.0 cm Left atrium Value Reference LA ID, A-P, ES 4.9 cm LA ID/bsa, A-P (H) 2.3 cm/m^2 <=2.2 LA area, ES, A4C (H) 28.2 cm^2 8.8 - 23.4 LA area, ES, A2C 29 cm^2 LA volume/bsa, ES, 1-p A4C 52 ml/m^2 LA volume, ES, 2-p 103 ml LA volume/bsa, ES, 2-p 48 ml/m^2 LA/aortic root ratio 1.51 Mitral valve Value Reference Mitral E-wave peak velocity 1.12 m/sec Mitral deceleration time (L) 71 ms 150 - 230 Mitral pressure half-time 21 ms Mitral peak gradient, D 5 mm Hg Mitral valve area, PHT, DP 10.7 cm^2 Pulmonary veins Value Reference Pulmonary vein peak velocity, S 0.4 m/sec Pulmonary vein peak velocity, D 0.81 m/sec Pulmonary vein velocity ratio, peak, 0.49 S/D Tricuspid valve Value Reference Tricuspid regurg peak velocity 4.2 m/sec Tricuspid peak RV-RA gradient 69.6 mm Hg Right atrium Value Reference RA area, ES, A4C (H) 21.9 cm^2 8.3 - 19.5 Pulmonic valve Value Reference Pulmonic peak gradient, S 3.9 mm Hg Legend: (L) and (H) rosa elena values outside specified reference range. I have personally reviewed the images and have reviewed and edited the reported findings. Electronically signed by Nestor Booker 08/07/2018 16:23
--- NOTE | 2018-08-07 15:17 | PT.INTREAT ---
Date of service: 08/07/18 Time of Service: 15:17 PT Notes Inpatient Physical Therapy Treatment Note [facility] Date: 08/07/18 PRECAUTIONS: Fall, WBAT B, ASO on L LE, sling on R UE SUBJECTIVE: Mio is pleasant and agreeable to participating in PT, although indicates that he continues to not feel well today. OBJECTIVE: PAIN: No c/o pain BED MOBILITY/TRANSFERS Sit-stand: CGA Stand-sit: CGA GAIT Assistive Device: HW Weight bearing: WBAT L Assist: CGA Distance: 20' Deviation: Cueing for increased step-height on R, and for weight shifting to L for R foot advancement DRESSING: Donned shirt with Min A for R UE, and patient required Max A for donning ASO and sandals, bilaterally. ASSESSMENT: Patient tolerated session well with c/o increased fatigue. He continues to require cueing for mechanics with gait training for safety. Patient would benefit from continued gait and transfer training, as well a strengthening for improved activity tolerance and mobility. PLAN: Continue with PT's POC TREATMENT CODE/TIME: 25 minutes; 76997 x2
[2018-08-07] MEDS: Omnipaque 350 MG/ML 100 ML BTL IJ (15:58)
--- NOTE | 2018-08-07 16:00 | DI.CT_ITS ---
SYMPTOMS/DIAGNOSIS: MSSA BACTEREMIA, H/O DVT, ? PE, PNEUMONIA VS CHF CHEST CT FOR PULMONARY EMBOLISM: CT angiography was performed with multi slice acquisition and multi planar and 3D reconstruction. Comparison is made with September,. The evaluation of the lungs is limited due to respiratory motion. There are moderate-sized bilateral pleural effusions. There are patchy infiltrates seen in both upper lobes and atelectasis in the lower lobes. There is thickening of the interstitium and fluid is seen extending along the right-sided fissures The findings are suspicious for CHF. The pulmonary arteries are well opacified with IV contrast and no pulmonary emboli are identified. The aorta is not well opacified; however, there is no gross evidence of aortic dissection. Images through the upper abdomen show calcifications in the liver and spleen consistent with granulomata. There is a low density lesion at the dome of the liver, which is not well characterized on this exam, but appears stable from the previous study. IMPRESSION: Bilateral pleural effusions and interstitial edema consistent with CHF. There are upper lobe infiltrates, which could represent alveolar edema; however, superimposed pneumonia is not excluded. No pulmonary emboli are identified.
[2018-08-07] MEDS: Furosemide 40 MG TAB PO (16:28)
[2018-08-07] MEDS: Normal Saline 500 ML 30 ML IV (16:38)
[2018-08-07] MEDS: Enoxaparin 40 MG/0.4 ML SYR SC (17:14)
--- NOTE | 2018-08-07 17:27 | W.PM.PROGNOT ---
Date of Service Date of service: 08/07/18 Time of Service: 17:28 Subjective Interval history since last seen: Pt seen this morning in respiratory distress. Stat dose of lasix 40 mg IV written; CXR with question of worsening PNA. CTA chest obtained as the patient also has a history of a DVT associated with a PICC line - this revealed bilateral pleural effusions, CHF, but superimposed pneumonia could not be excluded. Clinically, the patient does not have evidence for pneumonia, however, so his vancomycin/flagyl are now d/c'ed, especially considering the extra volume they were introducing. We initiated salt restrictions and are monitoring daily weights. I [place] [facility] [place] patient was recommended to have weekly echos to follow the aortic valve disease, to complete therapy for endocarditis and rehab for CVA - having the surgery earlier would expose him to higher risk. We obtained an echocardiogram today - this showed moderate to severe aortic regurgitation with persistent aortic valve echodensity. We will push these images [place] [facility] [place] for review and further plans. Objective Objective Clinical Data: Abnormal lab results 08/07/18 08/07/18 Range/Units 11:38 11:38 RBC 2.97 L (4.50-6.00) m/cumm Hgb 8.6 L (13.5-17.5) g/dL Hct 27.2 L (40.0-50.0) % MCHC 31.6 L (32.0-36.0) g/dL RDW 15.0 H (11.8-14.1) % Plt Count 452 H (130-400) x1000/uL Absolute Monocytes 1.11 H (0.11-0.7) k/cumm Anion Gap 13.3 H (3-11) mmol/L BUN 38 H (7-18) mg/dL Glucose 104 H (70-100) mg/dL NT-Pro-B Natriuret Pep 8289 H ( - 299) pg/mL Vital Signs Temperature 36.6 C 08/07/18 14:50 Temperature Source Tympanic 08/07/18 14:50 Pulse 96 H 08/07/18 14:50 Pulse Rhythm Regular 08/07/18 07:35 Respiratory Rate 19 08/07/18 14:50 Respiratory Effort 08/07/18 07:35 Respiratory Depth Shallow 08/07/18 07:35 Respiratory Pattern Tachypnea 08/07/18 07:35 Blood Pressure 121/45 L 08/07/18 14:50 Pulse Oximetry 96 08/07/18 14:50 Oxygen Delivery Method Hi Flow Nasal Cannula 08/07/18 14:50 Oxygen Flow Rate 50 08/07/18 09:45 Fraction of Inspired Oxygen (FIO2) 32 08/07/18 09:45 Pain Level 0 08/06/18 15:25 Comment 08/06/18 20:38 Intake & Output 08/06/18 08/07/18 08/07/18 23:59 11:59 23:59 Intake Total 880 / 1380 750 / 1390 640 / 1390 Output Total 425 / 425 Balance 880 / 980 325 / 965 640 / 965 Weight 89.2 kg Intake: IV 400 / 660 450 / 850 400 / 850 Oral 480 / 720 300 / 540 240 / 540 Output: Urine 425 / 425 Other: Urine Color Yellow Urine Appearance Clear Urine Odor None Comment post lasix Stool Size Moderate Stool Characteristics Soft Formed Brown Voiding Methods Urinal Laboratory Results WBC 8.73 k/cumm (4.4-10.8) 08/07/18 11:38 RBC 2.97 m/cumm (4.50-6.00) L 08/07/18 11:38 Hgb 8.6 g/dL (13.5-17.5) L 08/07/18 11:38 Hct 27.2 % (40.0-50.0) L 08/07/18 11:38 MCV 91.6 fL (80-95) 08/07/18 11:38 MCH 29.0 pg (27.0-33.0) 08/07/18 11:38 MCHC 31.6 g/dL (32.0-36.0) L 08/07/18 11:38 RDW 15.0 % (11.8-14.1) H 08/07/18 11:38 Plt Count 452 x1000/uL (130-400) H 08/07/18 11:38 MPV 9.3 fL (8.0-11.0) 08/07/18 11:38 Immature Gran % 0.3 08/07/18 11:38 Neutrophils % 59.9 08/07/18 11:38 Lymphocytes % 19.9 08/07/18 11:38 Monocytes % 12.7 08/07/18 11:38 Eosinophils % 5.8 08/07/18 11:38 Basophils % 1.4 08/07/18 11:38 Absolute Neutrophils 5.22 k/cumm (1.2-6.7) 08/07/18 11:38 Absolute Lymphocytes 1.74 k/cumm (1.2-3.4) 08/07/18 11:38 Absolute Monocytes 1.11 k/cumm (0.11-0.7) H 08/07/18 11:38 Absolute Eosinophils 0.51 k/cumm (0.0-0.7) 08/07/18 11:38 Absolute Basophils 0.12 k/cumm (0.0-0.2) 08/07/18 11:38 Polychromasia Present 08/04/18 14:10 Anisocytosis 1+ 08/04/18 14:10 Sodium 142 mmol/L (136-145) 08/07/18 11:38 Potassium 4.3 mmol/L (3.5-5.1) 08/07/18 11:38 Chloride 106 mmol/L (98-107) 08/07/18 11:38 Carbon Dioxide 22.7 mmol/L (21.0-32.0) 08/07/18 11:38 Anion Gap 13.3 mmol/L (3-11) H 08/07/18 11:38 BUN 38 mg/dL (7-18) H 08/07/18 11:38 Creatinine 1.10 mg/dL (0.70-1.30) 08/07/18 11:38 Estimated GFR/1.73 m2 >= 60.00 (mL/min/1.73m2) 08/07/18 11:38 Glucose 104 mg/dL (70-100) H 08/07/18 11:38 Calcium 10.1 mg/dL (8.5-10.1) 08/07/18 11:38 Magnesium 1.8 mg/dL (1.8-2.4) 08/07/18 11:38 Total Bilirubin 0.3 mg/dL (0.2-1.0) 08/06/18 05:15 AST 12 U/L (15-37) L 08/06/18 05:15 ALT 17 U/L (12-78) 08/06/18 05:15 Alkaline Phosphatase 57 U/L (46-116) 08/06/18 05:15 Troponin I 0.07 ng/mL (0.00-0.06) H 08/04/18 14:10 C-Reactive Protein 6.47 mg/dL (0.0-0.3) H 08/06/18 05:15 NT-Pro-B Natriuret Pep 8289 pg/mL (-299) H 08/07/18 11:38 Total Protein 7.3 g/dL (6.4-8.2) 08/06/18 05:15 Albumin 2.6 g/dL (3.4-5.0) L 08/06/18 05:15 Vancomycin Trough 29.2 ug/mL (10.0-20.0) H* 08/06/18 05:15
[2018-08-07] MEDS: Metoprolol 12.5 MG TAB PO (19:43)
[2018-08-07] MEDS: Docusate Sodium 100 MG CAP PO (19:44)
[2018-08-07] MEDS: Melatonin 3 MG TAB 6 MG PO (21:53)
[2018-08-07] MEDS: Insulin Glargine 300 UNITS/3 ML PEN 35 UNITS SC (21:53)
[2018-08-08 02:47] VITALS: O2SAT 95
[2018-08-08 03:55] VITALS: O2SAT 95
[2018-08-08] MEDS: cefTRIAXone 2 GM/50 ML BAG IVPB (06:28)
[2018-08-08] MEDS: Normal Saline Flush 10 ML SYR IVP (06:29)
[2018-08-08 08:05] VITALS: BP 113/53; PULSE 97; RESP 17; TEMP 36.4; O2SAT 96
--- NOTE | 2018-08-08 09:21 | W.SPEECHNOTE ---
Date of service: 08/08/18 Time of Service: 09:15 Speech Therapy Visit Note Note: Patient refusing ST today, saying he doesn't feel well and, consequently, has not been able to do any of his speech exercises. He is sitting in his cintia-chair with eyes closed and opens them only briefly to make eye contact. He shows labored breathing while speaking and his speech is more dysarthric than what was last seen two days ago on 08/06/18. His thought processing also appears slower. Nursing reports that he began a medical down-turn yesterday and that the hospitalist will be consulting [facility], with a possible return to acute care and a transfer to [facility]. Will not provide any ST today and will monitor the situation.
--- NOTE | 2018-08-08 09:28 | OT.INTREAT ---
Date of service: 08/08/18 Time of Service: 08:10 Occupational Therapy Notes Occupational Therapy Inpatient Treatment Note Date: 08/08/18 PRECAUTIONS: Fall, Standard SUBJECTIVE: Pt was lying in bed when OT arrived. He states that he has been up since 3am and is very tired today. He is unable to keep his eyes open and has minimal conversation with OT today. OBJECTIVE: PAIN:no c/o pain FUNCTIONAL MOBILITY Rolling L/R: (S) Supine-sit: Min (A) Sit-supine: Min (A) Therapeutic Exercise [id number]: OT passively mobilized pt's (R) UE for digits, wrist and forearm with good ROM achieved however pts AROM at this time seems to be declining. He is unable to make a fist his hand has visual edema noted and decreased sensation present in digits. ASSESSMENT/PLAN: Pt tolerated PROM well, he states that it felt good to move his fingers. He was unable to to perform bed mobility (I). He denied all ADLs/IADLs today reporting that he was having difficulty breathing, OT did notify RN who was looking into this on her end. OT will monitor pts response to todays session. TREATMENT CODES/TIME: [id number], 15 minutes (08:10) [facility]
--- NOTE | 2018-08-08 09:31 | OTTR_ITS ---
Date of service: 08/08/18 Time of Service: 08:10 Occupational Therapy Notes Occupational Therapy Inpatient Treatment Note Date: 08/08/18 PRECAUTIONS: Fall, Standard SUBJECTIVE: Pt was lying in bed when OT arrived. He states that he has been up since 3am and is very tired today. He is unable to keep his eyes open and has minimal conversation with OT today. OBJECTIVE: PAIN:no c/o pain FUNCTIONAL MOBILITY Rolling L/R: (S) Supine-sit: Min (A) Sit-supine: Min (A) Therapeutic Exercise [id number]: OT passively mobilized pt's (R) UE for digits, wrist and forearm with good ROM achieved however pts AROM at this time seems to be declining. He is unable to make a fist his hand has visual edema noted and decreased sensation present in digits. ASSESSMENT/PLAN: Pt tolerated PROM well, he states that it felt good to move his fingers. He was unable to to perform bed mobility (I). He denied all ADLs/IADLs today reporting that he was having difficulty breathing, OT did notify RN who was looking into this on her end. OT will monitor pts response to todays session. TREATMENT CODES/TIME: [id number], 15 minutes (08:10) [facility]
--- NOTE | 2018-08-08 09:32 | STVN_ITS ---
Date of service: 08/08/18 Time of Service: 09:15 Speech Therapy Visit Note Note: Patient refusing ST today, saying he doesn't feel well and, consequently, has not been able to do any of his speech exercises. He is sitting in his cintia- chair with eyes closed and opens them only briefly to make eye contact. He shows labored breathing while speaking and his speech is more dysarthric than what was last seen two days ago on 08/06/18. His thought processing also appears slower. Nursing reports that he began a medical down-turn yesterday and that the hospitalist will be consulting [facility] [place], with a possible return to acute care and a transfer to [facility] [place]. Will not provide any ST today and will monitor the situation.
[2018-08-08] MEDS: levETIRAcetam 500 MG TAB PO (09:49)
[2018-08-08] MEDS: Metoprolol 12.5 MG TAB PO (09:49)
[2018-08-08] MEDS: Polyethylene Glycol 3350 17 GM PACKET PO (09:49)
[2018-08-08] MEDS: hydrALAZINE 25 MG TAB 50 MG PO ×2 (09:50→14:49)
[2018-08-08] MEDS: Docusate Sodium 100 MG CAP PO (09:50)
[2018-08-08] MEDS: Lisinopril 20 MG TAB 40 MG PO (09:50)
[2018-08-08] MEDS: DULoxetine 30 MG CAP PO (09:50)
[2018-08-08] MEDS: Pantoprazole 40 MG TABCR PO (09:50)
[2018-08-08] MEDS: Sennosides/Docusate Sodium TAB 1 TAB PO (09:50)
[2018-08-08] MEDS: Furosemide 40 MG/4 ML VIAL IVP (10:21)
[2018-08-08 11:28] LABS: Abs Immature Grans 0.03 k/cumm (0.0-0.09); Absolute Basophil Count 0.16 k/cumm (0.0-0.2); Absolute Eosinophil Count 0.65 k/cumm (0.0-0.7); Absolute Monocyte Count 1.31 k/cumm (0.11-0.7); Absolute Neutrophil Count 5.61 k/cumm (1.2-6.7); Basophils % 1.7; Eosinophils % 6.7; HCT 28.9 % (40.0-50.0); HGB 9.1 g/dL (13.5-17.5); Immature Grans % 0.3; Lymphocytes % 19.7; Mean Corp. HGB Concentration 31.5 g/dL (32.0-36.0); Mean Corpuscular Hemoglobin 28.7 pg (27.0-33.0); Mean Corpuscular Volume 91.2 fL (80-95); Mean Platelet Volume 9.3 fL (8.0-11.0); Monocytes % 13.6; Platelet Count 529 x1000/uL (130-400); RBC 3.17 m/cumm (4.50-6.00); White Blood Cell Count 9.66 k/cumm (4.4-10.8)
[2018-08-08 11:39] LABS: Anion Gap 14.2 mmol/L (3-11); BUN 37 mg/dL (7-18); CO2 22.8 mmol/L (21.0-32.0); CREATININE 1.14 mg/dL (0.70-1.30); Calcium 10.2 mg/dL (8.5-10.1); Chloride 105 mmol/L (98-107); Glucose 105 mg/dL (70-100); Magnesium 1.8 mg/dL (1.8-2.4); Potassium 4.3 mmol/L (3.5-5.1); Sodium 142 mmol/L (136-145)
[2018-08-08 11:49] LABS: Troponin I 0.11 ng/mL (0.00-0.06)
--- NOTE | 2018-08-08 13:20 | PDOC.CMPRO ---
Care Management Progress Note S/O-Met5 with Mio and later with Arline. He asked that Arline be the one to complete his applications for SSI and SSDI with Social Security. Contacted Isabel Terrell at [facility] and sent Arline over to meet with her, but she was unable to assist Arline as Mio needed to be present and she could not tie up her computer for this. Arline came back over to [facility] and was set up with a laptop computer in Mio's room where she was able to start the application. Nely at [employer] was notified that SSI/SSDI application is in process, so she can start processing the [facility] application. After all of this, it was learned that is transferring him [place] [facility] [place]. A-52 yo man [place] [facility] [place] [facility] for IV Abx. P-[place] back [place] [facility] [place] per MD.
--- NOTE | 2018-08-08 14:00 | DSE_ITS ---
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): Status: Acute (9) 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): Status: Acute (10) Aortic valve endocarditis: Status: Acute (11) MSSA (methicillin susceptible Staphylococcus aureus) septicemia: Status: Acute (12) Diabetes mellitus: Status: Chronic (13) GERD (gastroesophageal reflux disease): Status: Chronic Discharge Plan Disposition Patient Disposition: [facility] Condition: Serious Discharge Details Reason For Visit: MSSA BACTEREMIA W/HX SEPTIC BRAIN EMBOLI,CVA,AORTI Admit Date/Time: 08/02/18 14:47 Admit Provider: Pedro Mathur Attending Provider: Pedro Mathur Primary Care Provider: Zach Sanders Hospital Course Hospital Course: Mr Alegre is a 52 year old male with history of IV drug use, IDDM2, hypertension, GERD, admitted to [facility] on 08/02/18 in Swing Bed level 1 status at [facility] for IV antibiotic therapy as well as physical/occupational/speech therapy services post lengthy admission at [facility] for MSSA aortic valve endocarditis with severe aortic regurgitation with septic emboli to the spleen and most importantly to the brain, resulting residual [employer] symptoms (dysarthria, dysphagia, aphasia, R sided hemiparesis). He was planned to complete his IV antibiotics (rocephin 2 grams Q12 hrs) on 08/23/18. However, on 08/04/18, the patient went into acute pulmonary edema, requiring initiation of IV lasix. While he would temporarily improve post each IV dose of lasix, unfortunately, his flash pulmonary edema has been recurring daily for the last 24 hours, resulting in significant respiratory distress and requirement for further IV diuresis. We have ruled out a PE (he does have a h/o of DVT associated with his PICC line) as well as pneumonia by obtaining a CTA of his chest. He did receive expanded IV antibiotics while aspiration pneumonia was suspected, but clinically his picture is more consistent with pulmonary edema, as he has had no cough or fever and improves visibly with IV lasix. We have repeated his echocardiorgram and had this reviewed and compared to a prior echocardiogram done at [facility], then had this case reviewed by Dr Merchant of cardiothoracic surgery at [facility]. The echo does reveal a more dilated LV than seen on the echo in May, per Dr Booker ([facility] caridology[place] Dr Merchant of [facility] CT surgery will see the patient in consult, however does not plan to take the patient to surgery right away. Mr Alegre was accepted to cardiology service at [facility] under the care of Dr De Jesus for management of his heart failure/pulmonary edema in light of his severe aortic regurgitation. He is at this point requiring 2-3 L of O2 and was initiated on lasix infusion. We appreciate the assistance of the [facility] team and wish the patient well. It is also worth mentioning that, while at [facility], the patient was seen by orthopedic surgery for his L ankle bimalleolar fracture. It is felt that he no longer requires the walker boot and may ambulate without the boot. He was cleared for ROM and strengthening exercises. For stability, he may use an ankle support orthosis, if needed. 2 hours were spent on care of patient, arrangement of transfer and completion of transfer summary/documentation for this patient on day of discharge. Home Meds and New Rx's Prescriptions: New acetaminophen [Tylenol] 325 mg Tablet 650 mg PO Q4H PRN PRNQty: 0 RF: 0 bisacodyl 10 mg Suppository 10 mg GA DAILY PRN PRN (Reason: Constipation) Qty: 0 RF: 0 docusate sodium [Colace] 100 mg Capsule 100 mg PO BID Qty: 0 RF: 0 enoxaparin [Lovenox] 40 mg/0.4 mL Syringe 40 mg subcut Q24H Qty: 0 RF: 0 buprenorphine-naloxone 2-0.5 mg Tablet, Sublingual 2 tab Sublingual BID Qty: 0 RF: 0 duloxetine [Cymbalta] 30 mg Capsule,Delayed Release(Dr/Ec) 30 mg PO DAILY Qty: 0 RF: 0 ceftriaxone in dextrose,iso-os 2 gram/50 mL Piggyback 2 g IVPB Q12H Qty: 0 RF: 0 polyethylene glycol 3350 17 gram Powder In Packet 17 g PO DAILY Qty: 0 RF: 0 miconazole nitrate [Mario Alberto Antifungal] 2 % Cream 1 applic topical BID Qty: 0 RF: 0 levetiracetam [Keppra] 500 mg Tablet 500 mg PO BID Qty: 0 RF: 0 lisinopril 20 mg Tablet 40 mg PO DAILY Qty: 0 RF: 0 sennosides-docusate sodium [Senna Plus] 8.6-50 mg Tablet 1 tab PO BID Qty: 0 RF: 0 hydralazine 25 mg Tablet 50 mg PO TID Qty: 0 RF: 0 lorazepam 0.5 mg Tablet 0.5 mg PO TID PRN PRNQty: 0 RF: 0 magnesium hydroxide [Milk of Magnesia] 400 mg/5 mL Suspension 30 ml PO DAILY PRN PRN (Reason: Constipation) Qty: 0 RF: 0 pantoprazole 40 mg Tablet,Delayed Release (Dr/Ec) 40 mg PO DAILY@0730 Qty: 0 RF: 0 alum-mag hydroxide-simeth [Mag-Al Plus] 200-200-20 mg/5 mL Suspension 30 ml PO Q2H PRN PRNQty: 0 RF: 0 melatonin 3 mg Tablet Extended Release 6 mg PO HS Qty: 0 RF: 0 Novolog Flexpen U-100 Insulin 100 unit/mL Insulin Pen subcut 0800,1200,1700 Qty: 0 RF: 0 metoprolol tartrate 25 mg Tablet 12.5 mg PO BID Qty: 0 RF: 0 Lantus Solostar U-100 Insulin 100 unit/mL (3 mL) Insulin Pen 35 units subcut HS Qty: 0 RF: 0 Continued albuterol sulfate [Ventolin HFA] 60 PUFF HFA aerosol inhaler 2 puff Inhalation Q2H PRN PRNQty: 1 RF: 1 Discontinued losartan 100 MG tablet 100 mg PO QAM RF: 0 Lantus Solostar U-100 Insulin 100 unit/mL (3 mL) Insulin Pen 25 units subcut HS Qty: 5 RF: 0 metformin [Glucophage XR] 750 mg Tablet Extended Release 24 Hr 750 mg PO TID RF: 0 Prilosec OTC 20 mg Tablet,Delayed Release (Dr/Ec) 20 mg PO DAILY PRNRF: 0 Discharge Instructions Activity:: Activity as Tolerated Diet:: Carb Consistent Low sodium Discharge Orders Discharge Orders: Discharge Order (Routine); Ordered 08/08/18 Ordered By: Little Akers Exam Narrative Exam Narrative: General: Middle-aged male, speaking with slurred speech and with difficulty findings words, A&Ox3, sitting up in bed, anxious, mildly tachypneic HEENT: EOMI, MMM, R facial droop Heart: RRR, + AWILDA Lungs: CTAB GI: abdomen is soft, nontender, nondistended Extremities: no e/c/c BLE's, wrinkles noted in B ankles DS: Data Vitals/I&O Vitals and I&O: Vital Signs Temperature 36.4 C L 08/08/18 08:05 Temperature Source Tympanic 08/08/18 08:05 Pulse 97 H 08/08/18 08:05 Pulse Rhythm Regular 08/08/18 03:55 Respiratory Rate 17 08/08/18 08:05 Respiratory Effort Short of Breath 08/08/18 03:55 Respiratory Depth Shallow 08/08/18 03:55 Respiratory Pattern Normal 08/08/18 03:55 Blood Pressure 113/53 L 08/08/18 08:05 Pulse Oximetry 96 08/08/18 08:05 Oxygen Delivery Method Nasal Cannula 08/08/18 08:05 Oxygen Flow Rate 3 08/08/18 08:05 Fraction of Inspired Oxygen (FIO2) 32 08/07/18 09:45 Pain Level 0 08/06/18 15:25 Comment 08/06/18 20:38 Intake & Output 08/07/18 08/08/18 08/08/18 23:59 11:59 23:59 Intake Total 1171 / 1921 Output Total 500 / 925 250 / 250 Balance 671 / 996 -250 / -250 Weight 88.1 kg Intake: IV 811 / 1261 Oral 360 / 660 Output: Urine 500 / 925 250 / 250 Other: Urine Color Yellow Yellow Urine Appearance Clear Urine Odor Normal Stool Size Moderate Stool Characteristics Formed Hard Brown Voiding Methods Urinal Incontinent Completed studies during hospitalization [Text1]: XR L ankle 08/03/18: Comparison is made with 04/12/18. Hardware is seen for fracture fixation along the lateral malleolus. The mortise screws are also in place. 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 The ankle mortise appears intact. CXR 08/04/18: Multifocal infiltrates. CXR 08/04/18: Comparison is made with the exam performed the previous day, 08/04/18 The heart size is unchanged. Again noted, are multiple bilateral and pulmonary densities suspicious for multi-focal pneumonia. No gross change given differences in technique CXR 08/06/18: Stable bilateral infiltrates and effusions. CXR 08/07/18: Stable to slightly worsening bilateral pneumonia. Echo 08/07/18: History of aortic valve endocarditis May 2017. Compared to the June 2018 study the ventricle is now moderately to severely dilated. The degree of aortic regurgitation is similar. There is still a mass attached to the aortic valve. Summary: 1. Left ventricle: The cavity size was moderately to severely dilated. Wall thickness was normal. Systolic function was normal. The estimated ejection fraction was 60-65%. Wall motion was normal; there were no regional wall motion abnormalities. Internal dimension, ED (PLAX): 7.0cm. Internal dimension, ES (PLAX): 4.4cm. 2. Aortic valve: There was a smallcalcified, mobile mass on the left ventricular aspect of the right coronary cusp consistent with recent endocarditis. There was moderate to severe regurgitation. 3. Mitral valve: There was mild to moderate regurgitation. 4. Right ventricle: The cavity size was normal. Wall thickness was normal. Systolic function was normal. 5. Pulmonary arteries: Pulmonary systolic pressure was increased, in the range of 45mm Hg to 50mm Hg. 6. Pericardium, extracardiac: There was a left pleural effusion. CTA chest 08/07/18: Bilateral pleural effusions and interstitial edema consistent with CHF. There are upper lobe infiltrates, which could represent alveolar edema; however, superimposed pneumonia is not excluded. No pulmonary emboli are identified. Labs on day of discharge: Labs from last 24 hours 08/08/18 08/08/18 08/08/18 15:00 11:34 11:15 WBC 9.66 RBC 3.17 L Hgb 9.1 L Hct 28.9 L MCV 91.2 MCH 28.7 MCHC 31.5 L RDW 15.0 H Plt Count 529 H MPV 9.3 Immature Gran % 0.3 Neutrophils % 58.0 Lymphocytes % 19.7 Monocytes % 13.6 Eosinophils % 6.7 Basophils % 1.7 Absolute Neutrophils 5.61 Absolute Lymphocytes 1.90 Absolute Monocytes 1.31 H Absolute Eosinophils 0.65 Absolute Basophils 0.16 Sample Site Pending pCO2 Pending pO2 Pending O2 Saturation Pending ABG pH Pending ABG HCO3 Pending ABG Total CO2 Pending ABG Base Excess Pending Sodium Potassium Chloride Carbon Dioxide Anion Gap BUN Creatinine Estimated GFR/1.73 m2 Glucose Calcium Magnesium Troponin I Pending 08/08/18 08/08/18 11:15 11:15 WBC RBC Hgb Hct MCV MCH MCHC RDW Plt Count MPV Immature Gran % Neutrophils % Lymphocytes % Monocytes % Eosinophils % Basophils % Absolute Neutrophils Absolute Lymphocytes Absolute Monocytes Absolute Eosinophils Absolute Basophils Sample Site pCO2 pO2 O2 Saturation ABG pH ABG HCO3 ABG Total CO2 ABG Base Excess Sodium 142 Potassium 4.3 Chloride 105 Carbon Dioxide 22.8 Anion Gap 14.2 H BUN 37 H Creatinine 1.14 Estimated GFR/1.73 m2 >= 60.00 Glucose 105 H Calcium 10.2 H Magnesium 1.8 Troponin I 0.11 H* PFSH Social History Smoking/Tobacco Use Status: Former Tobacco Use Alcohol Intake: former Drug use: Current Sobriety Substance use type: former substance user, marijuana and opiates Caregiver/Support person: Yes Household members: spouse current occupation: Disabled Do you feel safe in your relationship?: Yes
--- NOTE | 2018-08-08 14:58 | CMPROGNOTE_ITS ---
Care Management Progress Note S/O-Met5 with Mio and later with Arline. He asked that Arline be the one to complete his applications for SSI and SSDI with Social Security. Contacted Isabel Terrell at [facility] and sent Arline over to meet with her, but she was unable to assist Arline as Mio needed to be present and she could not tie up her computer for this. Arline came back over to [facility] and was set up with a laptop computer in Mio's room where she was able to start the application. Nely at [employer] was notified that SSI/SSDI application is in process, so she can start processing the [facility] application. After all of this, it was learned that is transferring him back to [facility] for further Rx. A-52 yo man admitted from [facility] to [facility] for IV Abx. P-Transfer back to [facility] as per MD.
--- NOTE | 2018-08-08 15:01 | PDOC.CMDIS ---
LACE Index Scoring Tool - Questions: Length of Stay (in days): 7 - 13 Acuity (Admit via E.D.?): No Comorbidities: Cerebrovascular Disease, Congestive Heart Failure, Chronic Pulmonary Disease E.D. Visits: 3 - Answers: Total Score: 13 Risk of Readmission: High Risk Care Management Discharge Reason for Hospitalization: transferred from [facility] to [place] [id number] for IV Abx Discharge Plan: He is being transferred back to [facility] for further care, via ambulance.
--- NOTE | 2018-08-08 15:06 | CMDISCH_ITS ---
LACE Index Scoring Tool - Questions: Length of Stay (in days): 7 - 13 Acuity (Admit via E.D.?): No Comorbidities: Cerebrovascular Disease, Congestive Heart Failure, Chronic Pulmonary Disease E.D. Visits: 3 - Answers: Total Score: 13 Risk of Readmission: High Risk Care Management Discharge Reason for Hospitalization: transferred from [facility] to [place] [address] for IV Abx Discharge Plan: He is being transferred back to [facility] for further care, via ambulance.
--- NOTE | 2018-08-08 17:11 | NUR.NOTE ---
08/08/18 Pt transferred via ambulance to [facility], dress marker Kerri gave report to GEORGIE Chauhan on 4E. Pt transported via stretcher and on Lasix gtt running at 5mg/hr.
--- NOTE | 2018-08-08 20:00 | PT.INDS ---
Date of service: 08/08/18 Time of Service: 08:42 PT Notes Inpatient Physical Therapy Discharge Summary Dates: 08/08/2018 Dates of Service: 08/02/2018 through 08/08/2018 This is a clinical summary of care provided on the duration of dates listed above. No charge was made in the completion of this documentation. Referring Doctor: Pedro Mathur MD PT Orders: PT CONSULT: Ongoing rehab following L MCA ischemic stroke. R shoulder partial rotator cuff tear Precautions: Fall. Standard. WBAT with air cast boot on L LE. Orthopedic shoe on R. Hemiwalker on L side. Sling to R UE for comfort. Patient Profile/Admitting Diagnosis: Patient is a 52-year-old male who was directly transferred to his hospital [place] [facility] for in-patient rehabilitation and continued antibiotic treatment regimen for MSSA bacteremia, brain abcess, aortic valve endocaridtis, aortic insufficiency, fracture of L ankle sustained from a fall S/P ORIF on 04/24/2018, R hemiparesis from late effects MCA infarction diagnosed on 06/10/2018, right partial rotator cuff tear, and splenic abcess. Patient is also on Suboxone treatment for chroninc opiate dependence. Patient was hospitalized at [facility] from 06/10/2018 through 08/02/2018 for same medical conditions. Today, patient will be for immediate medical intervention for discharged back to [facility] for flash pulmonary edema associated with severe aortic regurgitation. Continues to PMHX: DM GERD Oipiate Dependence Depression History of DVT Social History/Home Situation: Patient lives with and in a mobile home in [place], [place] with 3 steps to enter with a rail on the right side going up. 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 Current Functional Limitations: Need for assistance with all bed mobility, transfers, and ambulation task performance requiring assist of 2 and hemiwalker Equipment Owned/DME: [facility] Subjective: Patient appears to be in mild distress today stating that he did not sleep well last night complaining of extreme fatigue. He reports generalized body aches and is notably impatient due to existing worsened symptoms. Objective: General Observation: Patient seen sitting at edge of bed wanting to sit up and transfer to recliner. apporoached PT and OT for help. PICC line for antibiotics on medial right forearm. Thick adherent yellowish hyperkeratotic skin on bilateral soles observed. Gastrotomy tube in place on the left upper abdominal area. Resting tremor noted on right upper extremity that also increases with movement. Inferior right quadrant facial drooping. Mental Status: Alert and oriented as to person, place, time, and purpose. Patient requires moderate to maximal verbal cueing using simple commands for overall safety and activity sequence. He needs to be given appropriate time to process instructions. Patient mildly irritated about increased difficulty with mobility performance today due to breathlessness and generalized pain complaint. Pain: Mild pain on right shoulder with elevation of arm forward. Mild discomfort on left foot with weight bearing activity. ROM: Right Upper Extremity: Shoulder Flexion WFL. Shoulder abduction WFL. Elbow flexion WFL. Wrist flexion WFL. Functional opening and closing of hand WFL. Left Upper Extremity: Shoulder Flexion 0-70. Shoulder abduction 0-20. Patient was able to bring right hand to his mouth, put right forearm onto right arm rest of the recliner and put the right arm back onto lap with complaints of tightness but no pain. Forearm supination to neutral only from a fully pronated position . Wrist flexion WFL. Functional opening and closing of hand WFL. Right Lower Extremity: Hip flexion WFL. Hip abduction WFL. Knee flexion WFL. Ankle dorsiflexion WFL. Ankle plantarflexion WFL. Left Lower Extremity: Hip flexion WFL. Hip abduction WFL. Knee flexion WFL. Ankle dorsiflexion WFL. Ankle plantarflexion WFL. Strength: Right Upper Extremity: Shoulder flexors 3-/5. Shoulder abductors 3-/5. Elbow flexors 3/5. Elbow extensors 3-/5. Burnt Lime Drawer weak and minimally functional. Left Upper Extremity: Shoulder flexors 5/5. Shoulder abductors 5/5. Elbow flexors 5/5. Elbow extensors 5/5. Burnt Lime Drawer strong. Right Lower Extremity: Hip flexors 3-/5. Hip abductors 3-/5. Knee flexors 3-/5. Knee extensors 3-/5. Ankle dorsiflexors 3-/5. Ankle plantarflexors 3-/5. Left Lower Extremity:Hip flexors 4/5. Hip abductors 4/5. Knee flexors 4/5. Knee extensors 4/5. Ankle dorsiflexors 3-/5. Ankle plantarflexors 3-/5. Sensation: Intact as to pain and pressure on left upper and lower extremities, diminished on right upper and right lower extremiies Bed Mobility/Transfers: Sit to stand minimal assist of 2 with moderate to maximal verbal cueing for correct and delayed cognitive processing, requires hemiwalker on left, Aircast boot on left, sling on right upper extremity, and orthopedic shoe on right Stand to sit minimal assist of 2 with moderate to maximal verbal cueing for correct and delayed cognitive processing, requires hemiwalker on left, Aircast boot on left, sling on right upper extremity, and orthopedic shoe on right Bed to chair minimal assist of 2 with moderate to maximal verbal cueing for correct and delayed cognitive processing, requires hemiwalker on left, Aircast boot on left, sling on right upper extremity, and orthopedic shoe on right Chair to bed minimal assist of 2 with moderate to maximal verbal cueing for correct and delayed cognitive processing, requires hemiwalker on left, Aircast boot on left, sling on right upper extremity, and orthopedic shoe on right Gait: Patient was able to tolerate 2 sidesteps +2 back steps using hemiwalker on the left side with minimal assist of 2 with maximal verbal, tactile, and visual cueing for hemiwalker management, weight shifting to the left prior to right LE advancement, and for increased hip flexion on the right to increase step height/length. Balance: Static Sitting: Fair Dynamic Sitting: Fair Static Standing: Fair Dynamic Standing: Fair Special Tests: Mobility Limitations Standardized Measure [facility] AM-PAC 6 clicks Basic Mobility Inpatient Short Form: Raw Score: 14 CMS Score: 62% deficit Assessment: Patient is a 52-year-old male here for continued inpatient rehabilitation to address right susanne-late effects of left MCA infarct as well fracture of left and is post ORIF, tear, MSSA septicemia,, aortic valve endocarditis, splenic abscess, and aortic insufficiency. Patient patient will benefit from snf facility placement in order to progress mobility level, strength, and balance in preparation for a safe discharge to home. Patient continues to present with clinical signs and symptoms consistent with current/admitting diagnoses that have resulted to mobility limitations, gait instability, generalized weakness, and impairment of motor control as demonstrated by the following impairment level findings: 1. Decreased strength to R LE major muscle groups 2. Impaired sitting/standing balance 3. Impaired activity tolerance 4. Limitation of joint range of motion on R upper and lower extremities Impairments are contributing to the following functional limitations: 1. Dependent bed mobility skills 2. Increased dependence with transfers 3. Inability to safely ambulate without assistive device and physical assistance 4. Increase completion time for mobility ADL performance 5. Increased fall risk 6. Inability to negotiate steps alone safely Patient is assessed as a 35[address] moderate complexity based on the following: History: 52-year-old male with extensive medical conditions resulting to ability impairment with co-morbidities as indicated above Examination: Underlying impairments and functional limitations as noted above Presentation:Evolving Decision Makin moderate complexity Goals: Goals X1 week 1. Supine-Sit supervision NOT MET 2. Sit-Supine supervision NOT MET 3. Sit-Stand supervision NOT MET 4. Stand-Sit supervision NOT MET 5. Bed-Chair supervision NOT MET 6. Chair-Bed supervision NOT MET 7. Supervision gait on level surface with use of least restrictive device for at least 200 feet without report of pain nor dyspnea NOT MET 8. Supervision stair negotiation while holding onto bilateral rails for at least 5 steps without report of pain nor dyspnea NOT MET 9. Supervision with home exercise program NOT MET 10. Good static and dynamic standing balance/tolerance NOT MET DISCHARGE RECOMMENDATIONS: Patient will benefit from snf facility placement in order to progress mobility level, strength, and balance in preparation for a safe discharge to home. TREATMENT CODE/TIME: 13371 x 21 minutes beginning at 8:42 AM. Thank you very much for this referral. Zunilda Zapata PT, DPT, CLT [facility]
--- NOTE | 2018-08-09 09:27 | OT.INDS ---
Date of service: 08/09/18 Time of Service: 09:27 Occupational Therapy Notes Occupational Therapy Inpatient Discharge Summary Date: 08/09/18 Dates of Service: 08/03/18-08/09/18 Referring Doctor:Pedro Mathur MD OT Orders: Ongoing rehab following (L) MCA ischemic stroke Precautions: Fall, Standard PATIENT PROFILE/ADMITTING DIAGNOSIS: Pt is a 52 year old male who was directly [place] [facility] [place]hab and continued antibiotic treatment regimen for MSSA bacteremia, brain abcess, aortic valve endocaridtis, aortic insufficiency, fracture of L ankle sustained from a fall S/P ORIF on 04/24/2018, R hemiparesis from late effects MCA infarction diagnosed on 06/10/2018, right partial rotator cuff tear, and splenic abcess. Patient is also on Suboxone treatment for chroninc opiate dependence. Past Medical History: DM GERD Oipiate Dependence Depression History of DVT Social History/Home Situation: Pt lives in a private home with his . He reports that prior to admission he was totally (I) with all ADLS/IADLs. 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 He notes that he is not a bad person multiple times throughout OT session and that he made some bad choices which has changed his life forever. Equipment owned/DME: [facility] SUBJECTIVE: NT This document serves as a summary of care, no skilled OT services provided for this documentation. OBJECTIVE: Dates of Service: 08/03/18-08/09/18 ROM: RUE AROM significantly limited d/t rotator cuff L UE AROM WNL STRENGTH: RUE unable to assess as pt is in sling with torn rotator cuff. Functionally limited for ROM. Bottle Blowing Machine Tender is weak. LUE Globally 5/5 throughout FUNCTIONAL MOBILITY/ADLS: Transfers with susanne walker, mod (A) BATHING (I) washing face and (B) UE, max (A) LE DRESSING Sitting in chair Dressing UE NT Dressing LE Able to don post op boot. Pt is only able to use 1 UE at this time, d/t this pt is unable to don and doff (B) socks and requires max (A). GROOMING Sitting in chair able to (I) brush hair, teeth not tested at todays session. TOILETING NT EATING Mod(A) opening and closing containers and use of sillverware. BALANCE: Static sitting Fair Dynamic Sitting Fair Static Standing Poor Dynamic Standing Poor ASSESSMENT: Patient is a 52-year-old male referred to occupational therapy services with diagnosis of MSSA bacteremia, brain abcess, aortic valve endocaridtis, aortic insufficiency, fracture of L ankle sustained from a fall S/P ORIF on 04/24/2018, R hemiparesis from late effects MCA infarction diagnosed on 06/10/2018, right partial rotator cuff tear, and splenic abcess. Patient is also on Suboxone treatment for chroninc opiate dependence. Pt was seen for 3 skilled OT sessions during this time he presented with a significant decline in his (I) in functional mobility, ADLs/IADLs. Pt was transferred to [facility] on 08/08/18 to be transitioned back for continued care. GOALS- Not met 1. Transfers- susanne walker (S) 2. Dressing Sitting in chair mod (A) don and doffing shirt, mod (A) don and doffing pants 3. Bathing sitting in chair (I) UE/LE 4. Toileting on commode min (A) 5. Eating- (I) seated position 6. Grooming- seated (I) with teeth and hair PLAN OF CARE/TREATMENT PLAN: Discharge pt from skilled OT services. DISCHARGE RECOMMENDATIONS Pt was transferred to [facility] on 08/08/18 TREATMENT TIME/MINUTES/CODES N/A Renetta Wells OTR/L [facility]
--- NOTE | 2018-08-09 09:34 | OTDS_ITS ---
Date of service: 08/09/18 Time of Service: 09:27 Occupational Therapy Notes Occupational Therapy Inpatient Discharge Summary Date: 08/09/18 Dates of Service: 08/03/18-08/09/18 Referring Doctor:Pedro Mathur MD OT Orders: Ongoing rehab following (L) MCA ischemic stroke Precautions: Fall, Standard PATIENT PROFILE/ADMITTING DIAGNOSIS: Pt is a 52 year old male who was directly [place] [facility] [place] and continued antibiotic treatment regimen for MSSA bacteremia, brain abcess, aortic valve endocaridtis, aortic insufficiency, fracture of L ankle sustained from a fall S/P ORIF on 04/24/2018, R hemiparesis from late effects MCA infarction diagnosed on 06/10/2018, right partial rotator cuff tear, and splenic abcess. Patient is also on Suboxone treatment for chroninc opiate dependence. Past Medical History: DM GERD Oipiate Dependence Depression History of DVT Social History/Home Situation: Pt lives in a private home with his . He reports that prior to admission he was totally (I) with all ADLS/IADLs. 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 He notes that he is not a bad person multiple times throughout OT session and that he made some bad choices which has changed his life forever. Equipment owned/DME: [facility] SUBJECTIVE: NT This document serves as a summary of care, no skilled OT services provided for this documentation. OBJECTIVE: Dates of Service: 08/03/18-08/09/18 ROM: RUE AROM significantly limited d/t rotator cuff L UE AROM WNL STRENGTH: RUE unable to assess as pt is in sling with torn rotator cuff. Functionally limited for ROM. Process Control Supervisor is weak. LUE Globally 5/5 throughout FUNCTIONAL MOBILITY/ADLS: Transfers with susanne walker, mod (A) BATHING (I) washing face and (B) UE, max (A) LE DRESSING Sitting in chair Dressing UE NT Dressing LE Able to don post op boot. Pt is only able to use 1 UE at this time, d/t this pt is unable to don and doff (B) socks and requires max (A). GROOMING Sitting in chair able to (I) brush hair, teeth not tested at todays session. TOILETING NT EATING Mod(A) opening and closing containers and use of sillverware. BALANCE: Static sitting Fair Dynamic Sitting Fair Static Standing Poor Dynamic Standing Poor ASSESSMENT: Patient is a 52-year-old male referred to occupational therapy services with diagnosis of MSSA bacteremia, brain abcess, aortic valve endocaridtis, aortic insufficiency, fracture of L ankle sustained from a fall S/P ORIF on 04/24/2018, R hemiparesis from late effects MCA infarction diagnosed on 06/10/2018, right partial rotator cuff tear, and splenic abcess. Patient is also on Suboxone treatment for chroninc opiate dependence. Pt was seen for 3 skilled OT sessions during this time he presented with a significant decline in his (I) in functional mobility, ADLs/IADLs. Pt was transferred [place] [facility] [place] 08[place]08[place]18 to be transitioned back for continued care. GOALS- Not met 1. Transfers- susanne walker (S) 2. Dressing Sitting in chair mod (A) don and doffing shirt, mod (A) don and doffing pants 3. Bathing sitting in chair (I) UE/LE 4. Toileting on commode min (A) 5. Eating- (I) seated position 6. Grooming- seated (I) with teeth and hair PLAN OF CARE/TREATMENT PLAN: Discharge pt from skilled OT services. DISCHARGE RECOMMENDATIONS Pt was transferred to [facility] [place] 08/08[place]18 TREATMENT TIME/MINUTES/CODES N/A Renetta Wells OTR/L [facility]
--- NOTE | 2018-08-11 08:29 | INDS_ITS ---
Date of service: 08/08/18 Time of Service: 08:42 PT Notes Inpatient Physical Therapy Discharge Summary Dates: 08/08/2018 Dates of Service: 08/02/2018 through 08/08/2018 This is a clinical summary of care provided on the duration of dates listed above. No charge was made in the completion of this documentation. Referring Doctor: Pedro Mathur MD PT Orders: PT CONSULT: Ongoing rehab following L MCA ischemic stroke. R shoulder partial rotator cuff tear Precautions: Fall. Standard. WBAT with air cast boot on L LE. Orthopedic shoe on R. Hemiwalker on L side. Sling to R UE for comfort. Patient Profile/Admitting Diagnosis: Patient is a 52-year-old male who was dir ectly transferred to his hospital from [facility] for in-patient rehabilitation and continued antibiotic treatment regimen for MSSA bacteremia, brain abcess, aortic valve endocaridtis, aortic insufficiency, fracture of L ankle sustained from a fall S/P ORIF on 04/24/2018, R hemiparesis from late effects MCA infarction diagnosed on 06/10/2018, right partial rotator cuff tear, and splenic abcess. Patient is also on Suboxone treatment for chroninc opiate dependence. Patient was hospitalized at [facility] from 06/10/2018 through 08/02/2018 for same medical conditions. Today, patient will be for immediate medical intervention for discharged back to [facility] for flash pulmonary edema associated with severe aortic regurgitation. Continues to PMHX: DM GERD Oipiate Dependence Depression History of DVT Social History/Home Situation: Patient lives with and in a mobile home in [place], [place] with 3 steps to enter with a rail on the right side going up. 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 Current Functional Limitations: Need for assistance with all bed mobility, transfers, and ambulation task performance requiring assist of 2 and hemiwalker Equipment Owned/DME: [facility] Subjective: Patient appears to be in mild distress today stating that he did not sleep well last night complaining of extreme fatigue. He reports generalized body aches and is notably impatient due to existing worsened symptoms. Objective: General Observation: Patient seen sitting at edge of bed wanting to sit up and transfer to recliner. apporoached PT and OT for help. PICC line for antibiotics on medial right forearm. Thick adherent yellowish hyperkeratotic skin on bilateral soles observed. Gastrotomy tube in place on the left upper abdominal area. Resting tremor noted on right upper extremity that also increases with movement. Inferior right quadrant facial drooping. Mental Status: Alert and oriented as to person, place, time, and purpose. Patient requires moderate to maximal verbal cueing using simple commands for overall safety and activity sequence. He needs to be given appropriate time to process instructions. Patient mildly irritated about increased difficulty with mobility performance today due to breathlessness and generalized pain complaint. Pain: Mild pain on right shoulder with elevation of arm forward. Mild dis comfort on left foot with weight bearing activity. ROM: Right Upper Extremity: Shoulder Flexion WFL. Shoulder abduction WFL. Elbow flexion WFL. Wrist flexion WFL. Functional opening and closing of hand WFL. Left Upper Extremity: Shoulder Flexion 0-70. Shoulder abduction 0-20. Patient was able to bring right hand to his mouth, put right forearm onto right arm rest of the recliner and put the right arm back onto lap with complaints of tightness but no pain. Forearm supination to neutral only from a fully pronated position . Wrist flexion WFL. Functional opening and closing of hand WFL. Right Lower Extremity: Hip flexion WFL. Hip abduction WFL. Knee flexion WFL. Ankle dorsiflexion WFL. Ankle plantarflexion WFL. Left Lower Extremity: Hip flexion WFL. Hip abduction WFL. Knee flexion WFL. Ankle dorsiflexion WFL. Ankle plantarflexion WFL. Strength: Right Upper Extremity: Shoulder flexors 3-/5. Shoulder abductors 3-/5. Elbow flexors 3/5. Elbow extensors 3-/5. Chemical Test Engineer weak and minimally functional. Left Upper Extremity: Shoulder flexors 5/5. Shoulder abductors 5/5. Elbow flexors 5/5. Elbow extensors 5/5. Chemical Test Engineer strong. Right Lower Extremity: Hip flexors 3-/5. Hip abductors 3-/5. Knee flexors 3-/5. Knee extensors 3-/5. Ankle dorsiflexors 3-/5. Ankle plantarflexors 3-/5. Left Lower Extremity:Hip flexors 4/5. Hip abductors 4/5. Knee flexors 4/5. Knee extensors 4/5. Ankle dorsiflexors 3-/5. Ankle plantarflexors 3-/5. Sensation: Intact as to pain and pressure on left upper and lower extremities, diminished on right upper and right lower extremiies Bed Mobility/Transfers: Sit to stand minimal assist of 2 with moderate to maximal verbal cueing for correct and delayed cognitive processing, requires hemiwalker on left, Aircast boot on left, sling on right upper extremity, and orthopedic shoe on right Stand to sit minimal assist of 2 with moderate to maximal verbal cueing for correct and delayed cognitive processing, requires hemiwalker on left, Aircast boot on left, sling on right upper extremity, and orthopedic shoe on right Bed to chair minimal assist of 2 with moderate to maximal verbal cueing for correct and delayed cognitive processing, requires hemiwalker on left, Aircast boot on left, sling on right upper extremity, and orthopedic shoe on right Chair to bed minimal assist of 2 with moderate to maximal verbal cueing for correct and delayed cognitive processing, requires hemiwalker on left, Aircast boot on left, sling on right upper extremity, and orthopedic shoe on right Gait: Patient was able to tolerate 2 sidesteps +2 back steps using hemiwalker on the left side with minimal assist of 2 with maximal verbal, tactile, and visual cueing for hemiwalker management, weight shifting to the left prior to right LE advancement, and for increased hip flexion on the right to increase step height/length. Balance: Static Sitting: Fair Dynamic Sitting: Fair Static Standing: Fair Dynamic Standing: Fair Special Tests: Mobility Limitations Standardized Measure [facility] AM-PAC 6 clicks Basic Mobility Inpatient Short Form: Raw Score: 14 CMS Score: 62% deficit Assessment: Patient is a 52-year-old male here for continued inpatient re habilitation to address right susanne-late effects of left MCA infarct as well fracture of left and is post ORIF, tear, MSSA septicemia,, aortic valve endocarditis, splenic abscess, and aortic insufficiency. Patient patient will benefit from [facility] in order to progress mobility level, strength, and balance in preparation for a safe discharge to home. Patient continues to present with clinical signs and symptoms consistent with current/admitting diagnoses that have resulted to mobility limitations, gait instability, generalized weakness, and impairment of motor control as demonstrated by the following impairment level findings: 1. Decreased strength to R LE major muscle groups 2. Impaired sitting/standing balance 3. Impaired activity tolerance 4. Limitation of joint range of motion on R upper and lower extremities Impairments are contributing to the following functional limitations: 1. Dependent bed mobility skills 2. Increased dependence with transfers 3. Inability to safely ambulate without assistive device and physical assistance 4. Increase completion time for mobility ADL performance 5. Increased fall risk 6. Inability to negotiate steps alone safely Patient is assessed as a 35652 moderate complexity based on the following: History: 52-year-old male with extensive medical conditions resulting to ability impairment with co-morbidities as indicated above Examination: Underlying impairments and functional limitations as noted above Presentation:Evolving Decision Makin moderate complexity Goals: Goals X1 week 1. Supine-Sit supervision NOT MET 2. Sit-Supine supervision NOT MET 3. Sit-Stand supervision NOT MET 4. Stand-Sit supervision NOT MET 5. Bed-Chair supervision NOT MET 6. Chair-Bed supervision NOT MET 7. Supervision gait on level surface with use of least restrictive device for at least 200 feet without report of pain nor dyspnea NOT MET 8. Supervision stair negotiation while holding onto bilateral rails for at least 5 steps without report of pain nor dyspnea NOT MET 9. Supervision with home exercise program NOT MET 10. Good static and dynamic standing balance/tolerance NOT MET DISCHARGE RECOMMENDATIONS: Patient will benefit from [facility] in order to progress mobility level, strength, and balance in preparation for a safe discharge to home. TREATMENT CODE/TIME: 12158 x 21 minutes beginning at 8:42 AM. Thank you very much for this referral. Zunilda Zapata PT, DPT, CLT [facility]
== END 2018-08-08 15:15 | disposition short-term general hospital (02) | DRG 94 ==
PROVIDERS: General Practice; Admitting Provider Internal Medicine; PCP Specialist/Technologist Athletic Trainer; Visit Provider Internal Medicine
DX: G06.0 Intracranial abscess and granuloma (principal); J18.9 Pneumonia, unspecified organism; A41.01 Sepsis due to Methicillin susceptible Staphylococcus aureus; I50.1 Left ventricular failure, unspecified; I01.1 Acute rheumatic endocarditis; I69.351 Hemiplegia and hemiparesis following cerebral infarction affecting right dominant side; F11.20 Opioid dependence, uncomplicated; D73.3 Abscess of spleen; Y95 Nosocomial condition; S82.842D Displaced bimalleolar fracture of left lower leg, subsequent encounter for closed fracture with routine healing; W10.8XXD Fall (on) (from) other stairs and steps, subsequent encounter; I69.322 Dysarthria following cerebral infarction; E11.9 Type 2 diabetes mellitus without complications; I10 Essential (primary) hypertension; K21.9 Gastro-esophageal reflux disease without esophagitis; B35.4 Tinea corporis; Z87.891 Personal history of nicotine dependence; Z99.81 Dependence on supplemental oxygen; Z79.4 Long term (current) use of insulin
CPT/HCPCS: 36415; 71275; 80048; 80053; 82805; 97110; 97162; 97167; 97530; 97535; 99220; 99232; 99253; 99316; J1650; NC; 71045; 71046; 73610; 80202; 82565; 83735; 83880; 84484; 85025; 85049; 86140; 92507; 92521; 93005; 93010; 93306; 99308; J1940; J1941; J3490

== ENCOUNTER 2018-08-08 13:00 | Outpatient (RCR) | payer MEDICAID, SELFPAY ==
--- NOTE | 2018-08-06 15:30 | COCO.CNN ---
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 This CHW went to client [facility] room on this date- client stated not up to seeing CHW today and wants CHW to come back in couple days. Plan of Care: CHW left contact information with client. Client did not want CHW to leave any information on how to start/obtain disability.
--- NOTE | 2018-08-06 15:34 | PDOC.CNN_ITS ---
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 This CHW went to client [facility] room on this date- client stated not up to seeing CHW today and wants CHW to come back in couple days. Plan of Care: CHW left contact information with client. Client did not want CHW to leave any information on how to start/obtain disability.
--- NOTE | 2018-08-08 14:02 | COCO.CNN ---
Primary Reason for Visit Insurance (needs support with obtaining social security disability and residential care supports) Referral to Care Coordination Referral to Care Coordination: No Referral to Services: Yes Where and Who: social security - Referral From Referral From: [facility] Care Plan - Plan of Care Assessment/Background: This CHW called to [facility] Care Manger Kyaa to see if client was up to having CHW come to discuss with client services/supports. E/M Engineer referred client's ex Arline Vanegas to CHW as client is not up to discussing. Arline came to CHW office; stated had tried to apply for Soc Sec for client but was not able to get online application to go through and calling Soc Sec directly was not able to schedule phone appt. Arline states client did not receive letter from Soc Sec stating a time for phone appt. Arline states client has applied for [place] LTC Medicaid and Nely VILLARREAL reviewer has advised she needs proof client has applied for Soc Sec before approving LTC. [place] [facility] [place] Soc Sec offices closed at noon on this day Monday. Arline would like to complete online application from CHW computer; CHW advised can not use computer to do so as client is not in the room and no release. CHW called to assistant product manager to see if option of lap top available in hospital if Arline wants to do online application in room with client. CHW was advised there is a computer Arline can use. CHW sent with Arline soc sec worksheet and booklet on process of applying and documentation needed. [facility] Self Management Plan Complete?: No
--- NOTE | 2018-08-08 14:35 | PDOC.CNN_ITS ---
Primary Reason for Visit Insurance (needs support with obtaining social security disability and senior living care supports) Referral to Care Coordination Referral to Care Coordination: No Referral to Services: Yes Where and Who: social security - Referral From Referral From: [facility] Care Plan - Plan of Care Assessment/Background: This CHW called to [facility] Care Manger Kaya to see if client was up to having CHW come to discuss with client services/supports. Parks Worker referred client's ex Arline Vanegas to CHW as client is not up to discussing. Arline came to CHW office; stated had tried to apply for Soc Sec for client but was not able to get online application to go through and calling Soc Sec directly was not able to schedule phone appt. Arline states client did not receive letter from Soc Sec stating a time for phone appt. Arline states client has applied for [place] Medicaid and Nely VILLARREAL reviewer has advised she needs proof client has applied for Soc Sec before approving LTC. [place] Soc Sec offices closed at noon on this day Monday. Arline would like to complete online application from CHW computer; CHW advised can not use computer to do so as client is not in the room and no release. CHW called to manager systems to see if option of lap top available in hospital if Arline wants to do online application in room with client. CHW was advised there is a computer Arline can use. CHW sent with Arline soc sec worksheet and booklet on process of applying and documentation needed. SMPE Self Management Plan Complete?: No
== END 2018-08-19 23:59 | disposition home or self-care (01) ==
LOC: COCO 13:00
PROVIDERS: PCP Specialist/Technologist Athletic Trainer; Visit Provider Specialist/Technologist Athletic Trainer
DX: R69 Illness, unspecified (principal)
CPT/HCPCS: 97110

== ENCOUNTER 2018-12-18 22:48 | Outpatient (REF) | payer MEDICAID, SELFPAY ==
[2018-12-21 10:37] LABS: Codeine 69 ng/mL (Cutoff: 25); Dihydrocodeine Negative ng/mL (Cutoff: 25); Hydrocodone Negative ng/mL (Cutoff: 25); Hydromorphone Negative ng/mL (Cutoff: 25); Morphine 2383 ng/mL (Cutoff: 25); Naloxone 628 ng/mL (Cutoff: 25); Norhydrocodone Negative ng/mL (Cutoff: 25); Noroxycodone Negative ng/mL (Cutoff: 25); Opiates Interpretation Positive.
== END 2018-12-18 23:08 ==
LOC: NCHCN 22:48
PROVIDERS: PCP Specialist/Technologist Athletic Trainer; Visit Provider Nurse Practitioner Family
DX: F19.21 Other psychoactive substance dependence, in remission (principal)
CPT/HCPCS: 80361

== ENCOUNTER 2018-12-24 13:05 | Outpatient (REF) | payer MEDICAID, SELFPAY ==
[2018-12-24 13:43] LABS: HCT 26.5 % (40.0-50.0); Mean Corp. HGB Concentration 30.2 g/dL (32.0-36.0); Mean Corpuscular Hemoglobin 24.8 pg (27.0-33.0); Mean Corpuscular Volume 82.3 fL (80-95); Mean Platelet Volume 9.7 fL (8.0-11.0); Platelet Count 462 x1000/uL (130-400); RBC 3.22 m/cumm (4.50-6.00); RBC Distribution Width 14.9 % (11.8-14.1); White Blood Cell Count 8.13 k/cumm (4.4-10.8)
[2018-12-24 14:01] LABS: ALT 13 U/L (16-63); AST 11 U/L (15-37); Albumin 3.1 g/dL (3.4-5.0); Alkaline Phosphatase 77 U/L (46-116); Anion Gap 6.7 mmol/L (3-11); BUN 20 mg/dL (7-18); Bilirubin, Total 0.2 mg/dL (0.2-1.0); C-Reactive Protein 2.08 mg/dL (0.0-0.3); CO2 31.3 mmol/L (21.0-32.0); CREATININE 1.57 mg/dL (0.70-1.30); Calcium 8.6 mg/dL (8.5-10.1); Chloride 102 mmol/L (98-107); Estimated GFR 46.44 (mL/min/1.73m2); Glucose 159 mg/dL (70-100); Potassium 4.2 mmol/L (3.5-5.1); Sodium 140 mmol/L (136-145); Total Protein 7.8 g/dL (6.4-8.2)
== END 2018-12-24 13:25 ==
LOC: NCHCN 13:05
PROVIDERS: PCP Family Medicine; Visit Provider Family Medicine
DX: E11.9 Type 2 diabetes mellitus without complications (principal); Z79.4 Long term (current) use of insulin; I69.393 Ataxia following cerebral infarction; Z51.81 Encounter for therapeutic drug level monitoring
CPT/HCPCS: 80053; 85027; 86140

== ENCOUNTER 2018-12-27 15:15 | Outpatient (REF) | payer MEDICAID, SELFPAY ==
[2018-12-27 15:45] LABS: HCT 26.4 % (40.0-50.0); HGB 7.9 g/dL (13.5-17.5); Mean Corp. HGB Concentration 29.9 g/dL (32.0-36.0); Mean Corpuscular Hemoglobin 24.8 pg (27.0-33.0); Mean Platelet Volume 9.6 fL (8.0-11.0); Platelet Count 486 x1000/uL (130-400); RBC 3.18 m/cumm (4.50-6.00); RBC Distribution Width 14.9 % (11.8-14.1); White Blood Cell Count 8.45 k/cumm (4.4-10.8)
[2018-12-27 16:06] LABS: Anion Gap 4.8 mmol/L (3-11); BUN 23 mg/dL (7-18); CO2 30.2 mmol/L (21.0-32.0); CREATININE 1.36 mg/dL (0.70-1.30); Calcium 8.6 mg/dL (8.5-10.1); Chloride 103 mmol/L (98-107); Estimated GFR 54.82 (mL/min/1.73m2); Glucose 180 mg/dL (70-100); Potassium 4.6 mmol/L (3.5-5.1); Sodium 138 mmol/L (136-145)
[2018-12-28 14:30] LABS: Iron 17 ug/dL (50-175); Total Iron Binding Capacity 490 ug/dL (250-450); Transferrin Sat 3 % (20-55)
[2018-12-28 14:57] LABS: Ferritin 24 ng/mL (8-388); Vitamin B12 448 pg/mL (193-986)
== END 2018-12-27 15:35 ==
LOC: NCHCN 15:15
PROVIDERS: PCP Family Medicine; Visit Provider Specialist/Technologist Athletic Trainer
DX: D64.9 Anemia, unspecified (principal); Z51.81 Encounter for therapeutic drug level monitoring
CPT/HCPCS: 80048; 85027; 82607; 82728; 82746; 83540; 83550

== ENCOUNTER 2018-12-31 10:45 | Outpatient (REF) | payer MEDICAID, SELFPAY ==
[2018-12-31 11:16] LABS: HCT 27.3 % (40.0-50.0); HGB 8.2 g/dL (13.5-17.5); Mean Corpuscular Hemoglobin 24.6 pg (27.0-33.0); Mean Platelet Volume 9.4 fL (8.0-11.0); RBC 3.33 m/cumm (4.50-6.00); RBC Distribution Width 14.9 % (11.8-14.1); White Blood Cell Count 9.59 k/cumm (4.4-10.8)
[2018-12-31 11:32] LABS: Platelet Count 657 x1000/uL (130-400)
[2018-12-31 11:42] LABS: ALT 10 U/L (16-63); AST 10 U/L (15-37); Albumin 3.7 g/dL (3.4-5.0); Alkaline Phosphatase 96 U/L (46-116); Anion Gap 6.8 mmol/L (3-11); BUN 28 mg/dL (7-18); Bilirubin, Total 0.1 mg/dL (0.2-1.0); C-Reactive Protein 0.22 mg/dL (0.0-0.3); CO2 29.2 mmol/L (21.0-32.0); CREATININE 1.53 mg/dL (0.70-1.30); Calcium 8.7 mg/dL (8.5-10.1); Chloride 101 mmol/L (98-107); Estimated GFR 47.85 (mL/min/1.73m2); Glucose 253 mg/dL (70-100); Potassium 4.7 mmol/L (3.5-5.1); Sodium 137 mmol/L (136-145); Total Protein 8.6 g/dL (6.4-8.2)
== END 2018-12-31 11:05 ==
LOC: NCHCN 10:45
PROVIDERS: PCP Family Medicine; Visit Provider Specialist/Technologist Athletic Trainer
DX: D64.9 Anemia, unspecified (principal); Z79.899 Other long term (current) drug therapy
CPT/HCPCS: 80053; 85027; 85025; 86140

== ENCOUNTER 2019-01-07 14:19 | Outpatient (REF) | payer MEDICAID, SELFPAY ==
[2019-01-07 15:05] LABS: HCT 25.1 % (40.0-50.0); HGB 7.3 g/dL (13.5-17.5); Mean Corp. HGB Concentration 29.1 g/dL (32.0-36.0); Mean Corpuscular Hemoglobin 24.4 pg (27.0-33.0); Mean Corpuscular Volume 83.9 fL (80-95); Mean Platelet Volume 9.5 fL (8.0-11.0); Platelet Count 540 x1000/uL (130-400); RBC 2.99 m/cumm (4.50-6.00); RBC Distribution Width 16.2 % (11.8-14.1); White Blood Cell Count 8.13 k/cumm (4.4-10.8)
[2019-01-07 15:20] LABS: ALT 9 U/L (16-63); AST 8 U/L (15-37); Albumin 3.5 g/dL (3.4-5.0); Alkaline Phosphatase 98 U/L (46-116); Anion Gap 7.2 mmol/L (3-11); BUN 26 mg/dL (7-18); Bilirubin, Total 0.1 mg/dL (0.2-1.0); C-Reactive Protein 0.32 mg/dL (0.0-0.3); CO2 28.8 mmol/L (21.0-32.0); CREATININE 1.24 mg/dL (0.70-1.30); Calcium 8.6 mg/dL (8.5-10.1); Chloride 102 mmol/L (98-107); Glucose 244 mg/dL (70-100); Potassium 4.4 mmol/L (3.5-5.1); Sodium 138 mmol/L (136-145)
== END 2019-01-07 14:39 ==
LOC: LBN 14:19
PROVIDERS: PCP Family Medicine; Visit Provider Specialist/Technologist Athletic Trainer
DX: D64.9 Anemia, unspecified (principal); I69.393 Ataxia following cerebral infarction; E11.9 Type 2 diabetes mellitus without complications; I10 Essential (primary) hypertension; Z51.81 Encounter for therapeutic drug level monitoring
CPT/HCPCS: 80053; 85027; 86140

== ENCOUNTER 2019-01-14 09:48 | Outpatient (REF) | payer MEDICAID, SELFPAY ==
[2019-01-14 10:24] LABS: HCT 28.4 % (40.0-50.0); HGB 8.3 g/dL (13.5-17.5); Mean Corp. HGB Concentration 29.2 g/dL (32.0-36.0); Mean Corpuscular Hemoglobin 25.9 pg (27.0-33.0); Mean Corpuscular Volume 88.5 fL (80-95); Mean Platelet Volume 9.9 fL (8.0-11.0); Platelet Count 404 x1000/uL (130-400); RBC 3.21 m/cumm (4.50-6.00); RBC Distribution Width 19.6 % (11.8-14.1); White Blood Cell Count 7.61 k/cumm (4.4-10.8)
[2019-01-14 10:47] LABS: ALT 7 U/L (16-63); AST 12 U/L (15-37); Albumin 3.4 g/dL (3.4-5.0); Alkaline Phosphatase 104 U/L (46-116); Anion Gap 9.3 mmol/L (3-11); BUN 20 mg/dL (7-18); Bilirubin, Total 0.2 mg/dL (0.2-1.0); C-Reactive Protein 0.35 mg/dL (0.0-0.3); CO2 30.7 mmol/L (21.0-32.0); CREATININE 1.22 mg/dL (0.70-1.30); Calcium 8.7 mg/dL (8.5-10.1); Chloride 103 mmol/L (98-107); Glucose 229 mg/dL (74-106); Potassium 4.2 mmol/L (3.5-5.1); Sodium 143 mmol/L (136-145); Total Protein 7.8 g/dL (6.4-8.2)
== END 2019-01-14 10:08 ==
LOC: NCHCN 09:48
PROVIDERS: PCP Family Medicine; Visit Provider Specialist/Technologist Athletic Trainer
DX: I69.393 Ataxia following cerebral infarction (principal); D64.9 Anemia, unspecified; Z51.81 Encounter for therapeutic drug level monitoring
CPT/HCPCS: 80053; 85027; 86140

== ENCOUNTER 2019-01-18 11:44 | Outpatient (CLI) | payer MEDICAID, SELFPAY ==
[2019-01-18 13:41] LABS: AST 12 U/L (15-37); Albumin 3.5 g/dL (3.4-5.0); Alkaline Phosphatase 111 U/L (46-116); Anion Gap 10.1 mmol/L (3-11); BUN 21 mg/dL (7-18); Bilirubin, Total 0.2 mg/dL (0.2-1.0); CO2 28.9 mmol/L (21.0-32.0); CREATININE 1.33 mg/dL (0.70-1.30); Calcium 8.9 mg/dL (8.5-10.1); Chloride 102 mmol/L (98-107); Estimated GFR 56.24 (mL/min/1.73m2); Glucose 237 mg/dL (74-106); Potassium 4.1 mmol/L (3.5-5.1); Sodium 141 mmol/L (136-145)
[2019-01-18 13:52] LABS: ALT < 6 U/L (16-63)
[2019-01-21 15:35] LABS: HCV RNA Detection Quantitative 0 IU/mL (Undetected)
== END 2019-01-18 12:04 ==
PROVIDERS: PCP Family Medicine; Visit Provider Internal Medicine
DX: B18.2 Chronic viral hepatitis C (principal)
CPT/HCPCS: 36415; 80053; 87522

== ENCOUNTER 2019-01-21 11:00 | Outpatient (REF) | payer MEDICAID, SELFPAY ==
[2019-01-21 11:43] LABS: ALT 11 U/L (16-63); AST 12 U/L (15-37); Albumin 3.5 g/dL (3.4-5.0); Alkaline Phosphatase 112 U/L (46-116); Anion Gap 9.3 mmol/L (3-11); BUN 21 mg/dL (7-18); Bilirubin, Total 0.1 mg/dL (0.2-1.0); C-Reactive Protein 0.56 mg/dL (0.0-0.3); CO2 28.7 mmol/L (21.0-32.0); CREATININE 1.27 mg/dL (0.70-1.30); Calcium 8.8 mg/dL (8.5-10.1); Chloride 101 mmol/L (98-107); Estimated GFR 59.32 (mL/min/1.73m2); Glucose 269 mg/dL (74-106); Potassium 4.2 mmol/L (3.5-5.1); Sodium 139 mmol/L (136-145); Total Protein 8.1 g/dL (6.4-8.2)
[2019-01-21 11:46] LABS: HCT 33.9 % (40.0-50.0); HGB 10.1 g/dL (13.5-17.5); Mean Corp. HGB Concentration 29.8 g/dL (32.0-36.0); Mean Corpuscular Hemoglobin 27.1 pg (27.0-33.0); Mean Corpuscular Volume 90.9 fL (80-95); Mean Platelet Volume 10.2 fL (8.0-11.0); Platelet Count 452 x1000/uL (130-400); RBC 3.73 m/cumm (4.50-6.00); RBC Distribution Width 21.9 % (11.8-14.1); White Blood Cell Count 7.09 k/cumm (4.4-10.8)
== END 2019-01-21 11:20 ==
LOC: NCHCN 11:00
PROVIDERS: PCP Family Medicine; Visit Provider Specialist/Technologist Athletic Trainer
DX: I10 Essential (primary) hypertension (principal); D64.9 Anemia, unspecified; I69.393 Ataxia following cerebral infarction; Z51.81 Encounter for therapeutic drug level monitoring
CPT/HCPCS: 80053; 85027; 86140

== ENCOUNTER 2019-01-28 11:31 | Outpatient (REF) | payer MEDICAID, SELFPAY ==
[2019-01-28 11:44] LABS: HGB 11.3 g/dL (13.5-17.5); Mean Corp. HGB Concentration 30.5 g/dL (32.0-36.0); Mean Corpuscular Hemoglobin 28.5 pg (27.0-33.0); Mean Corpuscular Volume 93.4 fL (80-95); Mean Platelet Volume 10.1 fL (8.0-11.0); Platelet Count 455 x1000/uL (130-400); RBC 3.96 m/cumm (4.50-6.00); RBC Distribution Width 20.8 % (11.8-14.1); White Blood Cell Count 6.86 k/cumm (4.4-10.8)
[2019-01-28 12:16] LABS: Estimated GFR 59.32 (mL/min/1.73m2)
[2019-01-28 12:37] LABS: C-Reactive Protein 0.44 mg/dL (0.0-0.3)
[2019-01-29 15:48] LABS: Calcium 8.8 mg/dL (8.5-10.1); Glucose 283 mg/dL (74-106)
[2019-01-29 15:49] LABS: Albumin 3.6 g/dL (3.4-5.0); BUN 19 mg/dL (7-18); Bilirubin, Total 0.2 mg/dL (0.2-1.0); CREATININE 1.27 mg/dL (0.70-1.30); Total Protein 8.1 g/dL (6.4-8.2)
[2019-01-29 15:50] LABS: Alkaline Phosphatase 108 U/L (46-116); CO2 31.7 mmol/L (21.0-32.0); Chloride 99 mmol/L (98-107); Potassium 3.9 mmol/L (3.5-5.1); Sodium 139 mmol/L (136-145)
[2019-01-29 15:51] LABS: ALT 16 U/L (16-63); AST 13 U/L (15-37); Anion Gap 8.3 mmol/L (3-11)
== END 2019-01-28 11:51 ==
LOC: LBN 11:31
PROVIDERS: PCP Family Medicine; Visit Provider Specialist/Technologist Athletic Trainer
DX: D64.9 Anemia, unspecified (principal); I10 Essential (primary) hypertension; E11.9 Type 2 diabetes mellitus without complications; Z79.899 Other long term (current) drug therapy
CPT/HCPCS: 80053; 85027; 86140

== ENCOUNTER 2019-02-15 12:06 | Inpatient (IN) | payer MEDICAID, SELFPAY ==
[2019-02-15] VITALS (45 sets, daily range): BP systolic 103–131; BP diastolic 61–83; PULSE 106–131; RESP 2–24; TEMP 36.1–38.9; O2SAT 89–98
--- NOTE | 2019-02-15 12:29 | ED.GENADUL_ITS ---
Discharge Plan Disposition Patient Disposition: [facility] INPATIENT Condition: Stable Discharge Details Chief Complaint: GenMedical Clinical Impression: Pneumonia Admit Date/Time: 02/15/19 15:12 Admit Provider: Little Akers Attending Provider: Little Akers Primary Care Provider: Zach Sanders ED Provider: Leticia Epperson Discharge Data Discharge Date/Time-TO BE ENTERED AT DEPARTURE: 02/15/19 16:26 Medical Decision Making 1300 -- 53-year-old male with a history of IVDU, aortic valve endocarditis in July 2018 with aortic valve replacement in August 2018, diabetes, CVA with right- sided hemiparesis presents for cough, fever, shortness of breath and chest pain for the past 2 days. Sent from [facility] for further evaluation of tachycardia and hypoxia. EKG on arrival notes a rate of 117, sinus, no acute ST elevation or depression. ME 148. QTc 430. QRS 108. Diminished breath sounds right chest and bases bilaterally. Heart rate 110s. O2 sat 93% on room air. Patient also has a history of left ankle fracture/ORIF in April 2018 complicated by MSSA bacteremia of bone cultures found after removal of hardware in Nov 2018 which was treated with Cefazolin. Left ankle wound appears to have granulation tissue surrounding wound with minimal yellow discharge in center but does not appear acutely infected. Differential diagnosis includes bronchitis, pneumonia, influenza. Presentation does not appear consistent with ACS or PE. Will check screening labs, chest x- ray, give a DuoNeb and reassess. 1430 --labs and imaging reviewed. White blood cell count 23. INR therapeutic at 2.4. Lactate 2.4. Troponin negative. Influenza negative. Chest x-ray notes a left lower lobe pneumonia. 1445 --patient reassessed -patient feels better after neb. Heart rate 120s. O2 sat 91 to 93% on room air. Advised patient to stay for admission for IV antibiotics, duo nebs and observation overnight considering his history. Patient initially hesitant to admission but is now agreeable. 1500 -- d/w hospitalist -accepts patient for admission. After patient accepted, it was thought that we did not have enough staff for admission and this was discussed with patient. He had declined transfer to another hospital and wanted to leave AMA. After further conversation with nursing supervisor paper coating, they are able to accommodate patient on the floor. Medical Records Medical records reviewed: Yes I reviewed the patient's medical records. Imaging Data Radiologic Study: Radiologist's impression: XR CHEST 2V PA LATERAL CLINICAL HISTORY: cough, fever, r/o pneumonia TECHNIQUE: COMPARISON: No exams were available for comparison FINDINGS: The heart is mildly enlarged. There are multiple sternal sutures. There are areas of apparent consolidation left lung base. Otherwise lungs appear grossly clear. No significant pleural effusion seen. IMPRESSION: findings consistent with left lower lobe pneumonia. Appropriate follow-up fortunato dies requested Lab Data Lab results reviewed: Yes I reviewed the patient's lab results. Labs: 02/15/19 13:15 Nasopharynx Influenza Types A,B Antigen - Final Laboratory Tests Range/Units 02/15/19 02/15/19 02/15/19 12:55 12:55 12:55 WBC (4.4-10.8) k/cumm 23.61 H RBC (4.50-6.00) m/cumm 4.37 L Hgb (13.5-17.5) g/dL 12.7 L Hct (40.0-50.0) % 40.2 MCV (80-95) fL 92.0 MCH (27.0-33.0) pg 29.1 MCHC (32.0-36.0) g/dL 31.6 L RDW (11.8-14.1) % 17.7 H Plt Count (130-400) x1000/uL 288 D MPV (8.0-11.0) fL 9.6 Immature Gran % See Differential Neutrophils % 74.0 Band Neutrophils % % 10.0 Lymphocytes % 7.0 Monocytes % 7.0 Eosinophils % 0.0 Basophils % 0.0 Metamyelocytes % % 1.0 Myelocytes % % 1.0 Absolute Neutrophils (1.2-6.7) k/cumm 19.83 H Absolute Lymphocytes (1.2-3.4) k/cumm 1.65 Absolute Monocytes (0.11-0.7) k/cumm 1.65 H Absolute Eosinophils (0.0-0.7) k/cumm 0.00 Absolute Basophils (0.0-0.2) k/cumm 0.00 Differential Comment Manual differential RBC Morphology See below Polychromasia Present Poikilocytosis 1+ Anisocytosis 1+ PT (9.3-11.0) sec 23.8 H INR (0.9-1.1) 2.4 H APTT (21.0-31.4) sec 42.6 H Sodium (136-145) mmol/L 135 L Potassium (3.5-5.1) mmol/L 4.3 Chloride (98-107) mmol/L 96 L Carbon Dioxide (21.0-32.0) mmol/L 27.1 Anion Gap (3-11) mmol/L 11.9 H BUN (7-18) mg/dL 24 H Creatinine (0.70-1.30) mg/dL 1.78 H Estimated GFR/1.73 m2 (mL/min/1.73m2) 40.18 Glucose (74-106) mg/dL 221 H Lactate Calcium (8.5-10.1) mg/dL 9.4 Magnesium (1.8-2.4) mg/dL 1.3 L Total Bilirubin (0.2-1.0) mg/dL 0.7 AST (15-37) U/L 10 L ALT (16-63) U/L 11 L Alkaline Phosphatase (46-116) U/L 82 Troponin I (<0.06) ng/Ml < 0.05 NT-Pro-B Natriuret Pep (<300) pg/mL Total Protein (6.4-8.2) g/dL 8.7 H Albumin (3.4-5.0) g/dL 3.3 L Procalcitonin ng/mL Range/Units 02/15/19 02/15/19 02/15/19 12:55 12:55 13:40 WBC (4.4-10.8) k/cumm RBC (4.50-6.00) m/cumm Hgb (13.5-17.5) g/dL Hct (40.0-50.0) % MCV (80-95) fL MCH (27.0-33.0) pg MCHC (32.0-36.0) g/dL RDW (11.8-14.1) % Plt Count (130-400) x1000/uL MPV (8.0-11.0) fL Immature Gran % Neutrophils % Band Neutrophils % % Lymphocytes % Monocytes % Eosinophils % Basophils % Metamyelocytes % % Myelocytes % % Absolute Neutrophils (1.2-6.7) k/cumm Absolute Lymphocytes (1.2-3.4) k/cumm Absolute Monocytes (0.11-0.7) k/cumm Absolute Eosinophils (0.0-0.7) k/cumm Absolute Basophils (0.0-0.2) k/cumm Differential Comment RBC Morphology Polychromasia Poikilocytosis Anisocytosis PT (9.3-11.0) sec INR (0.9-1.1) APTT (21.0-31.4) sec Sodium (136-145) mmol/L Potassium (3.5-5.1) mmol/L Chloride (98-107) mmol/L Carbon Dioxide (21.0-32.0) mmol/L Anion Gap (3-11) mmol/L BUN (7-18) mg/dL Creatinine (0.70-1.30) mg/dL Estimated GFR/1.73 m2 (mL/min/1.73m2) Glucose (74-106) mg/dL Lactate Cancelled Calcium (8.5-10.1) mg/dL Magnesium (1.8-2.4) mg/dL Total Bilirubin (0.2-1.0) mg/dL AST (15-37) U/L ALT (16-63) U/L Alkaline Phosphatase (46-116) U/L Troponin I (<0.06) ng/Ml NT-Pro-B Natriuret Pep (<300) pg/mL 1874 H Total Protein (6.4-8.2) g/dL Albumin (3.4-5.0) g/dL Procalcitonin ng/mL 8.0 Range/Units 02/15/ 13:53 WBC (4.4-10.8) k/cumm RBC (4.50-6.00) m/cumm Hgb (13.5-17.5) g/dL Hct (40.0-50.0) % MCV (80-95) fL MCH (27.0-33.0) pg MCHC (32.0-36.0) g/dL RDW (11.8-14.1) % Plt Count (130-400) x1000/uL MPV (8.0-11.0) fL Immature Gran % Neutrophils % Band Neutrophils % % Lymphocytes % Monocytes % Eosinophils % Basophils % Metamyelocytes % % Myelocytes % % Absolute Neutrophils (1.2-6.7) k/cumm Absolute Lymphocytes (1.2-3.4) k/cumm Absolute Monocytes (0.11-0.7) k/cumm Absolute Eosinophils (0.0-0.7) k/cumm Absolute Basophils (0.0-0.2) k/cumm Differential Comment RBC Morphology Polychromasia Poikilocytosis Anisocytosis PT (9.3-11.0) sec INR (0.9-1.1) APTT (21.0-31.4) sec Sodium (136-145) mmol/L Potassium (3.5-5.1) mmol/L Chloride (98-107) mmol/L Carbon Dioxide (21.0-32.0) mmol/L Anion Gap (3-11) mmol/L BUN (7-18) mg/dL Creatinine (0.70-1.30) mg/dL Estimated GFR/1.73 m2 (mL/min/1.73m2) Glucose (74-106) mg/dL Lactate 2.4 H* Calcium (8.5-10.1) mg/dL Magnesium (1.8-2.4) mg/dL Total Bilirubin (0.2-1.0) mg/dL AST (15-37) U/L ALT (16-63) U/L Alkaline Phosphatase (46-116) U/L Troponin I (<0.06) ng/Ml NT-Pro-B Natriuret Pep (<300) pg/mL Total Protein (6.4-8.2) g/dL Albumin (3.4-5.0) g/dL Procalcitonin ng/mL Some lab results obtained after pt admitted to floor including pro calcitonin, BNP, etc. ECG Data Attestation: I personally reviewed and interpreted this ECG (s) as follows: Interpretation: Rate 117, sinus, no acute ST elevation or depression. ME 148. QTc 430. QRS 108. HPI General Mode of arrival: wheelchair . Date/Time Provider Initiated Documentation: 02/15/19 12:24 . Limitations to Documentation: no limitations . Information obtained by: patient . HPI Narrative: Patient is a 53-year-old male with a history of aortic valve endocarditis and aortic valve replacement on Coumadin, hypertension, hepatitis C, diabetes,, right CVA with right-sided hemiparesis worse in right upper extremity as well as history of previous opioid dependence presents for cough with green sputum, shortness of breath, chest pain with coughing, body aches and fatigue for the past few days. Was seen at [facility] earlier today and advised to come here for further eval uation of his tachycardia and hypoxia. Patient also states that he had a left ankle washout of hardware status post fracture this month at [facility]. He states it was a same-day surgery and he denies any admission to the hospital more than 2 days over the past 3 months. Related Data Home Medications Medication Instructions Recorded Confirmed albuterol sulfate [Ventolin HFA] 2 puff INHALATION Q2H PRN PRN #1 12/04/16 02/16/19 inh acetaminophen [Tylenol] 650 mg PO Q4H PRN PRN #0 tab 08/08/18 02/16/19 buprenorphine-naloxone 2 tab SUBLINGUAL BID #0 tab 08/08/18 02/16/19 docusate sodium [Colace] 100 mg PO BID #0 cap 08/08/18 02/16/19 duloxetine [Cymbalta] 30 mg PO DAILY #0 cap 08/08/18 02/16/19 insulin aspart U-100 [Novolog 0 units SUBCUT 0800,1200,1700 #0 ml 08/08/18 02/16/19 Flexpen U-100 Insulin] insulin glargine [Lantus Solostar 35 units SUBCUT HS #0 ml 08/08/18 02/16/19 U-100 Insulin] levetiracetam [Keppra] 500 mg PO BID #0 tab 08/08/18 02/16/19 magnesium hydroxide [Milk of 30 ml PO DAILY PRN PRN #0 ml 08/08/18 02/16/19 Magnesia] melatonin 6 mg PO HS #0 tab 08/08/18 02/16/19 pantoprazole 40 mg PO DAILY@0730 #0 tab 08/08/18 02/16/19 warfarin 2.5 mg tablet 2.5 mg PO Q OTHER DAY 09/27/18 02/16/19 warfarin 5 mg tablet 5 mg PO Q OTHER DAY 09/27/18 02/16/19 bisacodyl 5 mg tablet,delayed 5 mg PO ONCE #4 tab 01/25/19 02/16/19 release polyethylene glycol 3350 17 gram 255 g PO DAILY #15 each 01/25/19 02/16/19 oral powder packet acetaminophen [Tylenol Extra 500 mg PO Q6H PRN 02/15/19 02/16/19 Strength] albuterol sulfate [ProAir HFA] 2 puff INHALATION Q4H PRN 02/15/19 02/16/19 aspirin 81 mg PO DAILY 02/15/19 02/16/19 ferrous gluconate 324 mg PO BID 02/15/19 02/16/19 fluticasone propionate [Flovent 2 puff INHALATION BID 02/15/19 02/16/19 HFA] furosemide [Lasix] 40 mg PO DAILY 02/15/19 02/16/19 gabapentin 300 mg PO TID 02/15/19 02/16/19 levetiracetam [Keppra] 500 mg PO BID 02/15/19 02/16/19 lisinopril 10 mg PO DAILY 02/15/19 02/16/19 metformin 1,000 mg PO DAILY 02/15/19 02/16/19 metoprolol tartrate 50 mg PO BID 02/15/19 02/16/19 polyethylene glycol 3350 [Miralax] 17 g PO DAILY 02/15/19 02/16/19 Previous Rx's Medication Instructions Recorded albuterol sulfate [Ventolin HFA] 2 puff INHALATION Q2H PRN PRN #1 12/04/16 inh acetaminophen [Tylenol] 650 mg PO Q4H PRN PRN #0 tab 08/08/18 buprenorphine-naloxone 2 tab SUBLINGUAL BID #0 tab 08/08/18 docusate sodium [Colace] 100 mg PO BID #0 cap 08/08/18 duloxetine [Cymbalta] 30 mg PO DAILY #0 cap 08/08/18 insulin aspart U-100 [Novolog 0 units SUBCUT 0800,1200,1700 #0 ml 08/08/18 Flexpen U-100 Insulin] insulin glargine [Lantus Solostar 35 units SUBCUT HS #0 ml 08/08/18 U-100 Insulin] levetiracetam [Keppra] 500 mg PO BID #0 tab 08/08/18 magnesium hydroxide [Milk of 30 ml PO DAILY PRN PRN #0 ml 08/08/18 Magnesia] melatonin 6 mg PO HS #0 tab 08/08/18 pantoprazole 40 mg PO DAILY@0730 #0 tab 08/08/18 bisacodyl 5 mg tablet,delayed 5 mg PO ONCE #4 tab 01/25/19 release polyethylene glycol 3350 17 gram 255 g PO DAILY #15 each 01/25/19 oral powder packet Allergies Allergy/AdvReac Type Severity Reaction Status Date / Time Penicillins AdvReac Severe Vomiting Verified 02/16/19 12:59 hydrocodone AdvReac Intermediate vomiting Verified 02/16/19 12:36 General Stated Complaint: GenMedical LLILIAN: 3 Review of Systems All systems reviewed & are unremarkable except as noted in HPI and below Constitutional Constitutional: Reports as per HPI, Denies chills and Reports fever(s) Eyes Eyes: Denies blurry vision ENT Ears, Nose, Mouth, and Throat: Denies dizziness, Denies sore throat and Denies throat swelling Cardiovascular Cardiovascular: Reports chest pain and Reports dyspnea Respiratory Respiratory: Reports cough and Reports dyspnea Gastrointestinal Gastrointestinal: Denies abdominal pain, Denies diarrhea and Denies vomiting Genitourinary Genitourinary: Denies hematuria and Denies dysuria Musculoskeletal Musculoskeletal: Denies back pain and Denies numbness Integumentary/Breasts Skin/Breast: Denies lesions and Denies rash Neurologic Neurologic: Denies dizziness, Denies focal weakness and Denies numbness Allergic/Immunologic Allergic/Immunologic: Denies throat swelling [facility] Medical History Aortic insufficiency (Inactive) s/p valve replacement Aortic valve endocarditis (Acute) 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 GERD (gastroesophageal reflux disease) (Inactive) HCAP (healthcare-associated pneumonia) (Inactive) 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) (Acute) Hepatitis C (Chronic) HTN (hypertension) (Chronic) Hx of deep venous thrombosis (Inactive) on Coumadin MSSA (methicillin susceptible Staphylococcus aureus) septicemia (Acute) Opiate dependence (Chronic) managed on suboxone Right rotator cuff tear (Inactive) Splenic abscess (Inactive) Tinea corporis (Inactive) Surgical History H/O aortic valve replacement (Acute) Pericardial aortic valve at [facility] - 08/21/2018 - Magna Ease 25 mm History of ankle surgery (Acute) S/P hardware removal (Inactive) L ankle. S/P percutaneous endoscopic gastrostomy (PEG) tube placement (Acute) S/P spinal surgery (Acute) Family History Father Heart disease in his 50's. Mother COPD (chronic obstructive pulmonary disease) Social History Smoking/Tobacco Use Status: Current every day Tobacco Type: cigarettes Alcohol Intake: never Drug use: Current Sobriety Caregiver/Support person: Yes Household members: spouse current occupation: Disabled Current gender identity: male Do you feel safe in your relationship?: Yes Exam Const General: cooperative Orientation: alert, awake and oriented x3 HENMT Head: normal to inspection Ears: hearing grossly normal bilaterally, external ears normal and TM's normal bilaterally General nose exam: external nose normal Face and sinus: normal facial exam Mouth: oral mucosae normal Teeth and gingiva: dentition normal Throat: posterior oropharynx normal Eyes General: appearance normal, both eyes and all related structures Eyelids: eyelids normal EOM: EOM intact bilaterally Neck Neck: normal visual inspection Lymphatic: no lymphadenopathy noted Chest Chest: normal inspection of the chest Resp Effort & Inspection: normal respiratory effort and able to speak in complete sentences Auscultation: other (Diminished breath sounds right chest and bases bilaterally.) Cardio Rate: tachycardic Rhythm: regular rhythm GI Inspection: normal to inspection Palpation: soft, not firm, no guarding, no hepatosplenomegaly, no masses and nontender Auscultation: normal bowel sounds Skin General skin exam: no rashes or lesions noted Neuro General: alert and awake Cognition: normal cognition Speech: speech normal Gait: normal gait Motor: muscle tone normal throughout Sensory Exam: no sensory deficits noted Extrem Ankle/foot/toe images: 1. Approximately 3 cm wound left lateral ankle with surrounding healing granulation tissue with minimal yellow discharge in center and on gauze dressing. Does not appear erythematous. Minimal tenderness to palpation. Psych Appearance: grossly normal Mental Status: mental status grossly normal Speech and Movement: speech and movement normal Affect: normal affect Thought Process: normal Course Vital Signs Vital signs: Vital Signs Temperature 98.7 F 02/15/19 12:13 Pulse 117 H 02/15/19 12:13 Respiratory Rate 22 02/15/19 12:13 Blood Pressure 103/70 02/15/19 12:13 Pulse Oximetry 93 L 02/15/19 12:13 Temperature 98.7 F 02/15/19 12:13 Temperature Source Oral 02/15/19 12:13 Pulse 117 H 02/15/19 12:13 Respiratory Rate 22 02/15/19 12:13 Respiratory Effort 02/15/19 12:23 Blood Pressure 103/70 02/15/19 12:13 Blood Pressure Position Supine 02/15/19 12:13 Pulse Oximetry 93 L 02/15/19 12:13 Oxygen Delivery Method Room Air 02/15/19 12:13 Oxygen Flow Rate 0 02/15/19 12:13 Lab/Test Results Lab/Test Results: 02/15/19 12:25 Blood Blood Culture - Pending 02/15/19 12:25 Blood Blood Culture - Pending
[2019-02-15] MEDS: Normal Saline 1,000 ML 1000 ML IV ×2 (13:03→15:29)
[2019-02-15 13:11] LABS: Abs Immature Grans 0.27 k/cumm (0.0-0.09); HCT 40.2 % (40.0-50.0); HGB 12.7 g/dL (13.5-17.5); Mean Corp. HGB Concentration 31.6 g/dL (32.0-36.0); Mean Corpuscular Hemoglobin 29.1 pg (27.0-33.0); Mean Platelet Volume 9.6 fL (8.0-11.0); RBC 4.37 m/cumm (4.50-6.00); RBC Distribution Width 17.7 % (11.8-14.1); White Blood Cell Count 23.61 k/cumm (4.4-10.8)
[2019-02-15] MEDS: Albuterol/Ipratropium 3 ML UPD VIAL UPD ×3 (13:23→23:37)
[2019-02-15 13:24] LABS: INR 2.4 (0.9-1.1); PTT Activated 42.6 sec (21.0-31.4); Prothrombin Time 23.8 sec (9.3-11.0)
[2019-02-15 13:30] LABS: Absolute Lymphocyte Count 1.65 k/cumm (1.2-3.4); Absolute Monocyte Count 1.65 k/cumm (0.11-0.7); Absolute Neutrophil Count 19.83 k/cumm (1.2-6.7); Platelet Count 288 x1000/uL (130-400)
[2019-02-15 13:31] LABS: Anisocytosis 1+; Diff Comment Manual Differential; Poikilocytes 1+; Polychromasia Present
[2019-02-15 13:53] LABS: ALT 11 U/L (16-63); AST 10 U/L (15-37); Albumin 3.3 g/dL (3.4-5.0); Alkaline Phosphatase 82 U/L (46-116); Anion Gap 11.9 mmol/L (3-11); BUN 24 mg/dL (7-18); Bilirubin, Total 0.7 mg/dL (0.2-1.0); CO2 27.1 mmol/L (21.0-32.0); CREATININE 1.78 mg/dL (0.70-1.30); Calcium 9.4 mg/dL (8.5-10.1); Chloride 96 mmol/L (98-107); Estimated GFR 40.18 (mL/min/1.73m2); Glucose 221 mg/dL (74-106); Magnesium 1.3 mg/dL (1.8-2.4); Potassium 4.3 mmol/L (3.5-5.1); Sodium 135 mmol/L (136-145); Total Protein 8.7 g/dL (6.4-8.2)
--- NOTE | 2019-02-15 14:00 | DI.RAD_ITS ---
EXAM: XR CHEST 2V PA LATERAL CLINICAL HISTORY: cough, fever, r/o pneumonia TECHNIQUE: COMPARISON: No exams were available for comparison FINDINGS: The heart is mildly enlarged. There are multiple sternal sutures. There are areas of apparent conso lidation left lung base. Otherwise lungs appear grossly clear. No significant pleural effusion seen . IMPRESSION: findings consistent with left lower lobe pneumonia. Appropriate follow-up studies requested
[2019-02-15 14:07] LABS: Lactate 2.4 mmol/L (0.6-1.4)
[2019-02-15 14:12] LABS: Troponin I < 0.05 ng/Ml (<0.06)
[2019-02-15] MEDS: Normal Saline Flush 10 ML SYR IVP ×2 (14:23→20:02)
[2019-02-15] MEDS: CEFEPIME 1 GM in Normal Saline 50 ML IVPB (15:06)
[2019-02-15] MEDS: Albuterol/Ipratropium 3 ML UPD VIAL (15:07)
[2019-02-15] MEDS: Acetaminophen 500 MG TAB (15:58)
[2019-02-15 16:13] LABS: NT-proBNP 1874 pg/mL (<300)
[2019-02-15] MEDS: VANCOMYCIN 2,000 MG in Normal Saline 500 ML 250 MG IVPB (16:16)
[2019-02-15] MEDS: Normal Saline 1,000 ML 150 ML IV (16:57)
[2019-02-15] MEDS: MAGNESIUM SULFATE 4 GM/100 ML BAG IVPB (16:58)
[2019-02-15 17:14] LABS: Lactate 3.1 mmol/L (0.6-1.4)
[2019-02-15] MEDS: Insulin Aspart 300 UNITS/3 ML PEN SC ×2 (17:28→21:32)
[2019-02-15 17:50] LABS: *AMPHETAMINES SCREEN URINE Negative (Negative); *BARBITURATES SCREEN URINE Negative (Negative); *BENZODIAZEPINES SCREEN URINE Negative (Negative); Cannabinoids THC POSITIVE (Negative); Cocaine Screen,Urine Negative (Negative); METHADONE URINE SCREEN Negative (Negative); OPIATES URINE SCREEN Negative (Negative)
[2019-02-15 17:51] LABS: Tricyclic Antidepressants Negative (Negative)
--- NOTE | 2019-02-15 17:51 | HPE_ITS ---
Date of service: 02/15/19 Time of Service: 17:52 Assessment and Plan Assessment and plan (1) Sepsis: Status: Acute Assessment and plan: Due to pneumonia present on admission which, given recent treatment of his L ankle infection, can be considered hospital acquired. Await blood and sputum C&S. Continue empiric vancomycin/cefepime. CRP and procalcitonin quite elevated, as is lactate. Decrease IVF rate due to my worries of fluid overloading the patient (his latest EF, per [facility] records, is 52% in 09/2018). Some of the lactate elevation may be due to bronchodilator therapy. Continue to trend lactates, CRP, procalcitonin. Low threshold to transfer to ICU. (2) HCAP (healthcare-associated pneumonia): Status: Acute Assessment and plan: As above Also, add steroids, nebs, antitussives, acapella. (3) Wound of left ankle: Status: Acute Assessment and plan: S/p removal of infected hardware due to MSSA osteomyelitis of L ankle and completion of IV cefazolin on 02/02. Obtaining XR L ankle, wound culture. Consult orthopedics. (4) Lactic acidosis: Status: Acute Assessment and plan: As above - continue to trend. could reflect Beta agonist use. (5) H/O aortic valve replacement: Status: Acute Assessment and plan: Post MSSA endocarditis of [place] aortic valve in July of this year with septic embolism to the brain, he required valve replacement. S/p bioprosthetic aortic valve on 08/21/2018. Check echo (6) Diabetes mellitus: Status: Chronic Assessment and plan: IDDM2. Continue home insulin with SSI. Hold metformin (ERICK, lactic acidosis). (7) ERICK (acute kidney injury): Status: Acute Assessment and plan: Hydrate cautiously. Ensure no urinary retention. (8) Hypomagnesemia: Status: Acute Assessment and plan: Replete (9) Opioid dependence on agonist therapy: Status: Acute Assessment and plan: Continue suboxone (10) DVT, lower extremity: Status: Acute Assessment and plan: Per review of [facility] notes, in August of 2018, he had distal RLE thrombi in paired posterior tibial and peroneal veins. Remains on coumadin. Continue for now with daily INR monitoring. (11) DVT prophylaxis: Status: Acute Assessment and plan: As above - on therapeutic coumadin (12) Discharge planning issues: Status: Acute Assessment and plan: Full code as confirmed by my discussion with the patient. Low threshold to transfer to ICU. 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, dysarthria, and L-sided facial droop, s/p pericardial bioprosthetic aortic valve placement at [facility] on 08/21/18, DVT LE, on coumadin, as well as L ankle hardware infection and osteomyelitis (MSSA), s/p removal of hardware at [facility] on 12/20/18 and completion of 6 weeks of IV cefazolin on 02/02/19 (PICC removed same date) with a continuously draining wound which has not healed completely, h/o IDDM2 and prior h/o IV drug use, reportedly in remission, on suboxone therapy, who was sent to [facility] ED today from his PCP's office where he had presented with shortness of breath, cough, and tachycardia. At [facility] ED, he was found to indeed be tachycardic, have a white count of 23.61 with 10 bands, and his CXR revealed LLL pneumonia. He states he got sick several days ago, but yesterday and today his shortness of breath has been especially bad. Cough has been productive of yellow sputum. Denies runny nose and sore throat. He denies having difficulty swallowing and states that he has been cleared to eat regular consistency diet and thin liquids. States the L ankle wound has been draining. Review of Systems Narrative: 12 systems reviewed. Pertinent positives and negatives are as per HPI. 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 GERD (gastroesophageal reflux disease) (Inactive) HCAP (healthcare-associated pneumonia) (Inactive) 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 ) (Acute) Hepatitis C (Chronic) HTN (hypertension) (Chronic) Hx of deep venous thrombosis (Inactive) on Coumadin MSSA (methicillin susceptible Staphylococcus aureus) septicemia (Acute) Opiate dependence (Chronic) managed on suboxone Right rotator cuff tear (Inactive) Splenic abscess (Inactive) Tinea corporis (Inactive) Surgical History (Updated 02/15/19 @ 18:53 by Little Akers MD) H/O aortic valve replacement (Acute) Pericardial aortic valve at [facility] - 08/21/2018 - Magna Ease 25 mm History of ankle surgery (Acute) S/P hardware removal (Inactive) L ankle. S/P percutaneous endoscopic gastrostomy (PEG) tube placement (Acute) S/P spinal surgery (Acute) Family History (Updated 02/15/19 @ 18:37 by Little Akers MD) Father Heart disease in his 50's. Mother COPD (chronic obstructive pulmonary disease) Social History Smoking/Tobacco Use Status: Former Tobacco Use Alcohol Intake: former Drug use: Current Sobriety Substance use type: former substance user, marijuana and opiates Caregiver/Support person: Yes Household members: spouse current occupation: Disabled Current gender identity: male Do you feel safe in your relationship?: Yes Meds Home Medications and Allergies Home Medications Medication Instructions Recorded Confirmed Type albuterol sulfate [Ventolin HFA] 2 puff INHALATION Q2H PRN PRN #1 12/04/16 02/15/19 Rx inh acetaminophen [Tylenol] 650 mg PO Q4H PRN PRN #0 tab 08/08/18 02/15/19 Rx buprenorphine-naloxone 2 tab SUBLINGUAL BID #0 tab 08/08/18 02/15/19 Rx docusate sodium [Colace] 100 mg PO BID #0 cap 08/08/18 02/15/19 Rx duloxetine [Cymbalta] 30 mg PO DAILY #0 cap 08/08/18 02/15/19 Rx insulin aspart U-100 [Novolog 0 units SUBCUT 0800,1200,1700 #0 ml 08/08/18 02/15/19 Rx Flexpen U-100 Insulin] insulin glargine [Lantus Solostar 35 units SUBCUT HS #0 ml 08/08/18 02/15/19 Rx U-100 Insulin] levetiracetam [Keppra] 500 mg PO BID #0 tab 08/08/18 02/15/19 Rx magnesium hydroxide [Milk of 30 ml PO DAILY PRN PRN #0 ml 08/08/18 02/15/19 Rx Magnesia] melatonin 6 mg PO HS #0 tab 08/08/18 02/15/19 Rx pantoprazole 40 mg PO DAILY@0730 #0 tab 08/08/18 02/15/19 Rx warfarin 2.5 mg tablet 2.5 mg PO Q OTHER DAY 09/27/18 02/15/19 History warfarin 5 mg tablet 5 mg PO Q OTHER DAY 09/27/18 02/15/19 History bisacodyl 5 mg tablet,delayed 5 mg PO ONCE #4 tab 01/25/19 02/15/19 Rx release polyethylene glycol 3350 17 gram 255 g PO DAILY #15 each 01/25/19 02/15/19 Rx oral powder packet acetaminophen [Tylenol Extra 500 mg PO Q6H PRN 02/15/19 02/15/19 History Strength] albuterol sulfate [ProAir HFA] 2 puff INHALATION Q4H PRN 02/15/19 02/15/19 History aspirin 81 mg PO DAILY 02/15/19 02/15/19 History ferrous gluconate 324 mg PO BID 02/15/19 02/15/19 History fluticasone propionate [Flovent 2 puff INHALATION BID 02/15/19 02/15/19 History HFA] furosemide [Lasix] 40 mg PO DAILY 02/15/19 02/15/19 History gabapentin 300 mg PO TID 02/15/19 02/15/19 History levetiracetam [Keppra] 500 mg PO BID 02/15/19 02/15/19 History lisinopril 10 mg PO DAILY 02/15/19 02/15/19 History metformin 1,000 mg PO DAILY 02/15/19 02/15/19 History metoprolol tartrate 50 mg PO BID 02/15/19 02/15/19 History polyethylene glycol 3350 [Miralax] 17 g PO DAILY 02/15/19 02/15/19 History Allergies Allergy/AdvReac Type Severity Reaction Status Date / Time Penicillins Allergy Severe Vomiting Verified 02/15/19 12:21 hydrocodone AdvReac Intermediate vomiting Verified 02/15/19 12:21 Exam Narrative Exam Narrative: General: Very pleasant obese male, looks much better than when I last saw him in August. He is coughing. Neurological: A&OX3, has L-sided facial droop, R-sided hemiplegia (able to move both RUE/RLE some), dysarthria. Psychiatric: appropriate speech pattern/content Skin: L ankle wound not fully healed with yellowish discharge HEENT: Atraumatic, normocephalic, EOMI, dry MM, clear oropharynx, no submandibular or cervical lymphadenopathy, large neck diameter - I cannot tell if he has JVD. No obvious goiter Cardiovascular: RRR, quiet AWILDA. Lungs: rhnochi and ?rales B - rales clear somewhat with coughing Gastrointestinal: abdomen is soft, nontender, nondistended Genitourinary: deferred Extremities: +1 edema BLE's, L ankle wound as above, 1+ bilateral pedal pulses Results Imaging Additional studies: CXR: findings consistent with left lower lobe pneumonia. Appropriate follow-up studies requested EKG: HR 117, sinus tach, nonspecific ST-T changes, no acute ischemia. Labs Result diagrams: 02/15/19 12:55 02/15/19 12:55 Labs: Laboratory Results - last 24 hr 02/15/19 02/15/19 02/15/19 12:55 12:55 12:55 WBC 23.61 H RBC 4.37 L Hgb 12.7 L Hct 40.2 MCV 92.0 MCH 29.1 MCHC 31.6 L RDW 17.7 H Plt Count 288 D MPV 9.6 Immature Gran % See Differential Neutrophils % 74.0 Band Neutrophils % 10.0 Lymphocytes % 7.0 Monocytes % 7.0 Eosinophils % 0.0 Basophils % 0.0 Metamyelocytes % 1.0 Myelocytes % 1.0 Absolute Neutrophils 19.83 H Absolute Lymphocytes 1.65 Absolute Monocytes 1.65 H Absolute Eosinophils 0.00 Absolute Basophils 0.00 Differential Comment Manual differential RBC Morphology See below Polychromasia Present Poikilocytosis 1+ Anisocytosis 1+ PT 23.8 H INR 2.4 H APTT 42.6 H Sodium 135 L Potassium 4.3 Chloride 96 L Carbon Dioxide 27.1 Anion Gap 11.9 H BUN 24 H Creatinine 1.78 H Estimated GFR/1.73 m2 40.18 Glucose 221 H Lactate Calcium 9.4 Magnesium 1.3 L Total Bilirubin 0.7 AST 10 L ALT 11 L Alkaline Phosphatase 82 Troponin I < 0.05 NT-Pro-B Natriuret Pep Total Protein 8.7 H Albumin 3.3 L Procalcitonin Urine Opiates Screen Urine Methadone Screen Ur Barbiturates Screen Ur Tricyclics Screen Ur Amphetamines Screen U Benzodiazepines Scrn Urine Cocaine Screen Ur THC Screen 02/15/19 02/15/19 02/15/19 12:55 12:55 13:40 WBC RBC Hgb Hct MCV MCH MCHC RDW Plt Count MPV Immature Gran % Neutrophils % Band Neutrophils % Lymphocytes % Monocytes % Eosinophils % Basophils % Metamyelocytes % Myelocytes % Absolute Neutrophils Absolute Lymphocytes Absolute Monocytes Absolute Eosinophils Absolute Basophils Differential Comment RBC Morphology Polychromasia Poikilocytosis Anisocytosis PT INR APTT Sodium Potassium Chloride Carbon Dioxide Anion Gap BUN Creatinine Estimated GFR/1.73 m2 Glucose Lactate Cancelled Calcium Magnesium Total Bilirubin AST ALT Alkaline Phosphatase Troponin I NT-Pro-B Natriuret Pep 1874 H Total Protein Albumin Procalcitonin 8.0 Urine Opiates Screen Urine Methadone Screen Ur Barbiturates Screen Ur Tricyclics Screen Ur Amphetamines Screen U Benzodiazepines Scrn Urine Cocaine Screen Ur THC Screen 02/15/19 02/15/19 02/15/19 13:53 17:04 17:15 WBC RBC Hgb Hct MCV MCH MCHC RDW Plt Count MPV Immature Gran % Neutrophils % Band Neutrophils % Lymphocytes % Monocytes % Eosinophils % Basophils % Metamyelocytes % Myelocytes % Absolute Neutrophils Absolute Lymphocytes Absolute Monocytes Absolute Eosinophils Absolute Basophils Differential Comment RBC Morphology Polychromasia Poikilocytosis Anisocytosis PT INR APTT Sodium Potassium Chloride Carbon Dioxide Anion Gap BUN Creatinine Estimated GFR/1.73 m2 Glucose Lactate 2.4 H* 3.1 H* Calcium Magnesium Total Bilirubin AST ALT Alkaline Phosphatase Troponin I NT-Pro-B Natriuret Pep Total Protein Albumin Procalcitonin Urine Opiates Screen Negative Urine Methadone Screen Negative Ur Barbiturates Screen Negative Ur Tricyclics Screen Negative Ur Amphetamines Screen Negative U Benzodiazepines Scrn Negative Urine Cocaine Screen Negative Ur THC Screen Positive A Last Vital Signs Temp 37.2 C 02/15/19 16:18 Pulse 124 H 02/15/19 16:52 Resp 22 02/15/19 16:22 BP 129/67 02/15/19 16:18 Pulse Ox 94 L 02/15/19 16:22
[2019-02-15 18:36] LABS: C-Reactive Protein > 25.00 mg/dL (0.0-0.3)
--- NOTE | 2019-02-15 19:20 | DI.RAD_ITS ---
EXAM: XR ANKLE LT COMPLETE INDICATION: s/p removal of hardware, persistent drainage. COMPARISON: XR ANKLE LT COMPLETE from 08/03/2018 TECHNIQUE: 2D digital imaging was performed. FINDINGS: No acute fracture or dislocation is present. Since the prior examination, there has been removal of the orthopedic hardware from the distal tibia and fibula. There is soft tissue swelling about the an kle. There is a well corticated osseous density seen adjacent to the distal 3rd of the fibula latera lly. There is some cortical irregularity seen at the medial and lateral aspect of the tibia at the s ite of the orthopedic hardware. If there is concern for osteomyelitis, an MRI should be considered f or further evaluation.
[2019-02-15 19:25] LABS: Bilirubin Negative (Negative); Blood Large (Negative); Clarity Clear (Clear); Glucose 100 mg/dL (Negative); Ketones Trace mg/dL (Negative); Leukocyte Esterase Negative (Negative); Nitrite Negative (Negative); Specific Gravity 1.025 (1.005-1.025); Urobilinogen 0.2 EU/dL (Up TO 0.2); pH 5.5 (5-8)
--- NOTE | 2019-02-15 19:31 | DI.VRAD_ITS ---
PROCEDURE INFORMATION: Exam: XR Left Ankle Exam date and time: 02/15/2019 6:17 PM Age: 53 years old Clinical indication: Other: Persistent drainage; Prior surgery; Surgery date: Post-operative (0-2 days); Surgery type: Removal of hardware; Additional info: Persistent drainage after hardware removal TECHNIQUE: Imaging protocol: XR Left ankle. Views: 3 or more views. COMPARISON: CR XR ANKLE LT COMPLETE 03/08/2018 16:26 FINDINGS: Bones/joints: Interval removal of orthopedic hardware from the distal fibula and tibia. Irregularity of the distal fibula cortex medially and laterally. If clinical concern about osteomyelitis recommend MRI for further evaluation. Soft tissues: Diffuse soft tissue swelling of the leg, ankle, and foot. IMPRESSION: Interval removal of orthopedic hardware. Diffuse soft tissue swelling of the left lower leg, left ankle, and left foot. If clinical concern about osteomyelitis recommend MRI. Dictated and Authenticated by: Sylvia Perera MD. Ordering:VISHAL Fitch MD
[2019-02-15 19:42] LABS: Bacteria Negative HPF (Negative); C & S Indicated? C&S Done As Ordered; Casts 20-50 Hyaline LPF (Negative); Crystals Few Amorphous HPF (Negative); Epithelial Cells Negative HPF (Negative); Mucus Negative (Negative); RBC 20-50 HPF (0-2); WBC 0-2 HPF (0-5)
[2019-02-15] MEDS: Metoprolol 25 MG TAB 50 MG PO (20:00)
[2019-02-15] MEDS: levETIRAcetam 500 MG TAB PO (20:01)
[2019-02-15] MEDS: Docusate Sodium 100 MG CAP PO (20:01)
[2019-02-15] MEDS: Benzonatate 100 MG CAP PO (20:01)
[2019-02-15] MEDS: Ferrous Gluconate 324 MG TAB PO (20:01)
[2019-02-15] MEDS: guaiFENesin 600 MG TABCR PO (20:01)
[2019-02-15] MEDS: Magnesium Oxide 400 MG TAB PO (20:01)
[2019-02-15] MEDS: methylPREDNISolone SUCC 125 MG VIAL 60 MG IVP (20:03)
[2019-02-15] MEDS: Pantoprazole 40 MG VIAL IVP (20:04)
[2019-02-15 20:24] LABS: Lactate 3.4 mmol/L (0.6-1.4)
[2019-02-15 20:49] LABS: Troponin I < 0.05 ng/Ml (<0.06)
[2019-02-15] MEDS: Mometasone 220 MCG 14 DOSE INHALER IH (21:00)
[2019-02-15] MEDS: Gabapentin 300 MG CAP PO (21:07)
[2019-02-15] MEDS: CEFEPIME 2 GM in Normal Saline 100 ML IVPB (21:08)
[2019-02-15] MEDS: Melatonin 3 MG TAB 6 MG PO (21:29)
[2019-02-15] MEDS: Insulin Glargine 300 UNITS/3 ML PEN 35 UNITS SC (21:29)
[2019-02-16 00:07] VITALS: PULSE 99; RESP 18; RESP 8; O2SAT 95
[2019-02-16 00:36] VITALS: BP 144/86; PULSE 107; RESP 18; TEMP 36.6; O2SAT 93
[2019-02-16 00:40] VITALS: O2SAT 97
--- NOTE | 2019-02-16 01:14 | NUR.NOTE ---
Nursing Note: At 0030 hrs., Pt called staff stated I wanna go home now, my will pick me up The sba underwriter assess pt and he is alert & oriented x 3. able to dialed phone numbers of ., profuse sweating noticed, IID reinforced with tegaderm, tape was peeling off, tubigrip applied on left hand and forearm. Charge Nurse appealed & tried to convinced pt to stay. FS done obtained a result of 277. Vitals taken and recorded. O2 administered for 2L/NC with O2 Sat of 95%. Pt remains with rt. sided weakness. increasing slurred speech but understandable. Conversant with SUPPLY CHAIN PLANNER and awaiting for to come. Closely monitored.
--- NOTE | 2019-02-16 03:43 | NUR.NOTE ---
0030 CALLED TO PT'S BEDSIDE BY PT'S NURSE Adolfo CHU RN. PT WANTS TO LEAVE TO GO HOME. PT HAS CALLED HIS . ADVISED PT STRONGLY AGAINST LEAVING. EXPLAINED HE HAS SEPSIS AND WHAT SEPSIS IS AND THAT HE NEEDS IV FLUIDS AND IV ANTIBIOTICS TO BE ABLE TO GET OVER HIS SEPSIS. PT'S NURSE ALSO TRIED TO PERSUADE PT TO STAY FOR THE SAME REASON. PT REFUSED. CAME IN AFTER 2AM AND COULD NOT TALK PT OUT OF LEAVING. NURSING HAZARDOUS WASTE TECHNICIAN FOR TASHIA VIERA RN ALSO TRIED TO TALK PT INTO STAYING. HOUSE PAINTER HELPER MD DR JAVED ADVISED OF THE SITUATION. WE ARE UNABLE TO HOLD PT AGAINST HIS WISHES. PT STATES HIS SPEECH AND DEMEANOR ARE PT'S BASELINE. PT ENDED UP SIGNING AMA PAPERS AND LEAVING AT 0230 IN WHEEL CHAIR ACCOMPANIED BY Doc VIERA RN.ursing Note:
--- NOTE | 2019-02-16 07:31 | NUR.NOTE ---
Nursing Note: Preliminary positive blood culture result faxed to [facility]. Called [facility] to let them know, spoke with Kerri who stated the patient left AMA. She stated that Dr. Akers would follow up on the result. Bouchra Perkins.
--- NOTE | 2019-02-16 11:30 | PT.INNT ---
Date of service: 02/16/19 Time of Service: 11:30 PT Notes Visit Reasons: SEPSIS DUE TO CAP Patient left hospital against medical advice early today per MS rubber goods assembler. Thank you very much for this referral. Zunilda Zapata PT, DPT, CLT [facility] Inpatient [facility] at [facility]
== END 2019-02-16 02:30 | disposition left against medical advice (07) | DRG 871 ==
LOC: ER 15:31 → MS 16:31
PROVIDERS: Admitting Provider Internal Medicine; Emergency Provider Physician Assistant; PCP Specialist/Technologist Athletic Trainer; Visit Provider Family Medicine
DX: A40.3 Sepsis due to Streptococcus pneumoniae (principal); J18.1 Lobar pneumonia, unspecified organism; T81.49XA Infection following a procedure, other surgical site, initial encounter; E87.2 Acidosis; I69.351 Hemiplegia and hemiparesis following cerebral infarction affecting right dominant side; N17.9 Acute kidney failure, unspecified; F11.20 Opioid dependence, uncomplicated; I82.551 Chronic embolism and thrombosis of right peroneal vein; I82.541 Chronic embolism and thrombosis of right tibial vein; Z53.29 Procedure and treatment not carried out because of patient's decision for other reasons; Y95 Nosocomial condition; B95.7 Other staphylococcus as the cause of diseases classified elsewhere; Z95.3 Presence of xenogenic heart valve; I69.322 Dysarthria following cerebral infarction; I69.392 Facial weakness following cerebral infarction; E11.9 Type 2 diabetes mellitus without complications; Z79.4 Long term (current) use of insulin; E83.42 Hypomagnesemia; Z79.01 Long term (current) use of anticoagulants; B19.20 Unspecified viral hepatitis C without hepatic coma
CPT/HCPCS: 36410; 36415; 80048; 80053; 80307; 84145; 87040; 87077; 87449; 93005; 94640; 96361; 96365; 96375; 99223; 99285; 71046; 73610; 81003; 81015; 83605; 83735; 83880; 84484; 85025; 85610; 85730; 86140; 87070; 87086; 87186; 87205; 93010; J2930; J3475; J3490; J7620

== ENCOUNTER 2019-02-16 12:27 | Inpatient (IN) | payer MEDICAID, SELFPAY ==
[2019-02-16] VITALS (29 sets, daily range): BP systolic 120–146; BP diastolic 70–89; PULSE 78–90; RESP 14–26; TEMP 36.2–36.9; O2SAT 93–99
--- NOTE | 2019-02-16 12:53 | ED.GENADUL_ITS ---
Discharge Plan Disposition Patient Disposition: [facility] INPATIENT Condition: Serious Discharge Details Chief Complaint: GenMedical Clinical Impression: Pneumonia, Bacteremia Admit Date/Time: 02/16/19 13:53 Admit Provider: Mio Johansen Attending Provider: Mio Johansen Primary Care Provider: Zach Sanders ED Provider: Cristhian Ly Discharge Data Discharge Date/Time-TO BE ENTERED AT DEPARTURE: 02/16/19 14:41 Medical Decision Making 12:58 --53-year-old male with multiple medical problems including history of IV drug use associated MSSA endocarditis, now status post aortic valve replacement August 2018, as well as osteomyelitis of the left ankle now status post hardware removal, seen here yesterday for left lower lobe pneumonia and admitted, left AMA early this morning and subsequently had blood cultures with gram-positive cocci, called and advised to return to the hospital. Patient is saturating well in no respiratory distress. He is hemodynamically stable. Concern for pneumonia versus recurrent endocarditis versus osteomyelitis of the ankle. I called and spoke with pharmacy who recommends giving vancomycin 1250 mg dose that was due at 10 AM this morning. I will also give cefepime 2 g IV. Plan to contact [facility] for potential transfer to higher level of care. --I reviewed past medical record including ankle x-ray from 02/15/2019, interpreted by radiology as: IMPRESSION: Interval removal of orthopedic hardware. Diffuse soft tissue swelling of the left lower leg, left ankle, and left foot. If clinical concern about osteomyelitis recommend MRI. Chest x-ray from 02/15/2019 interpreted by radiology as: IMPRESSION: findings consistent with left lower lobe pneumonia. Appropriate follow-up studies requested 13:32 -- I spoke with [facility] hospitalist medicine, discussed ED presentation and course and requested transfer, they agree that MRI and echo are warranted but do not feel that emergent transfer is necessary and recommend admission to [facility] for IV abx. Will page hospitalist. --I spoke with Dr. Warner, discussed ED presentation and course, he will admit the patient. Medical Records Medical records reviewed: Yes I reviewed the patient's medical records. ECG Data Attestation: I personally reviewed and interpreted this ECG (s) as follows: Interpretation: Sinus rhythm 75 bpm, normal axis, incomplete right bundle branch block with QRS duration of 114, MO interval 160, nondiagnostic. HPI General Mode of arrival: ambulatory . Date/Time Provider Initiated Documentation: 02/16/19 12:30 . Limitations to Documentation: no limitations . Information obtained by: patient and family . HPI Narrative: 53-year-old male with multiple medical problems including prior history of IV drug use, prior and SSA endocarditis of [place] aortic valve in 07/2017 with septic emboli to the brain requiring aortic valve replacement, status post bioprosthetic aortic valve August 2018, status post removal of infected hardware due to MSSA osteomyelitis of the left ankle with completion of IV cefazolin 02/02/19, seen here yesterday in the emerge part after being sent from primary care with cough, shortness of breath, tachycardia and hypoxia. Patient was diagnosed with left lower lobe pneumonia here in the emergency department and admitted for further treatment. Patient left inpatient unit AGAINST MEDICAL ADVICE sometime early this morning. Subsequently blood cultures have resulted gram-positive cocci. Patient was contacted at home and advised to return for further treatment. He is now here seeking treatment and agreeable with treatment plan. Patient specifically notes he is agreeable to being hospitalized and receiving antibiotics as recommended. He continues to have cough that is moderate. He does not feel short of breath currently. He has no chest pain. He does note that he continues to have some mild discharge from his left ankle wound. He has no increased redness of the left ankle or swelling from baseline. Related Data Home Medications Medication Instructions Recorded Confirmed albuterol sulfate [Ventolin HFA] 2 puff INHALATION Q2H PRN PRN #1 12/04/16 02/16/19 inh acetaminophen [Tylenol] 650 mg PO Q4H PRN PRN #0 tab 08/08/18 02/16/19 buprenorphine-naloxone 2 tab SUBLINGUAL BID #0 tab 08/08/18 02/16/19 docusate sodium [Colace] 100 mg PO BID #0 cap 08/08/18 02/16/19 duloxetine [Cymbalta] 30 mg PO DAILY #0 cap 08/08/18 02/16/19 insulin aspart U-100 [Novolog 0 units SUBCUT 0800,1200,1700 #0 ml 08/08/18 02/16/19 Flexpen U-100 Insulin] insulin glargine [Lantus Solostar 35 units SUBCUT HS #0 ml 08/08/18 02/16/19 U-100 Insulin] levetiracetam [Keppra] 500 mg PO BID #0 tab 08/08/18 02/16/19 magnesium hydroxide [Milk of 30 ml PO DAILY PRN PRN #0 ml 08/08/18 02/16/19 Magnesia] melatonin 6 mg PO HS #0 tab 08/08/18 02/16/19 pantoprazole 40 mg PO DAILY@0730 #0 tab 08/08/18 02/16/19 warfarin 2.5 mg tablet 2.5 mg PO Q OTHER DAY 09/27/18 02/16/19 warfarin 5 mg tablet 5 mg PO Q OTHER DAY 09/27/18 02/16/19 bisacodyl 5 mg tablet,delayed 5 mg PO ONCE #4 tab 01/25/19 02/16/19 release polyethylene glycol 3350 17 gram 255 g PO DAILY #15 each 01/25/19 02/16/19 oral powder packet acetaminophen [Tylenol Extra 500 mg PO Q6H PRN 02/15/19 02/16/19 Strength] albuterol sulfate [ProAir HFA] 2 puff INHALATION Q4H PRN 02/15/19 02/16/19 aspirin 81 mg PO DAILY 02/15/19 02/16/19 ferrous gluconate 324 mg PO BID 02/15/19 02/16/19 fluticasone propionate [Flovent 2 puff INHALATION BID 02/15/19 02/16/19 HFA] furosemide [Lasix] 40 mg PO DAILY 02/15/19 02/16/19 gabapentin 300 mg PO TID 02/15/19 02/16/19 levetiracetam [Keppra] 500 mg PO BID 02/15/19 02/16/19 lisinopril 10 mg PO DAILY 02/15/19 02/16/19 metformin 1,000 mg PO DAILY 02/15/19 02/16/19 metoprolol tartrate 50 mg PO BID 02/15/19 02/16/19 polyethylene glycol 3350 [Miralax] 17 g PO DAILY 02/15/19 02/16/19 Previous Rx's Medication Instructions Recorded albuterol sulfate [Ventolin HFA] 2 puff INHALATION Q2H PRN PRN #1 12/04/16 inh acetaminophen [Tylenol] 650 mg PO Q4H PRN PRN #0 tab 08/08/18 buprenorphine-naloxone 2 tab SUBLINGUAL BID #0 tab 08/08/18 docusate sodium [Colace] 100 mg PO BID #0 cap 08/08/18 duloxetine [Cymbalta] 30 mg PO DAILY #0 cap 08/08/18 insulin aspart U-100 [Novolog 0 units SUBCUT 0800,1200,1700 #0 ml 08/08/18 Flexpen U-100 Insulin] insulin glargine [Lantus Solostar 35 units SUBCUT HS #0 ml 08/08/18 U-100 Insulin] levetiracetam [Keppra] 500 mg PO BID #0 tab 08/08/18 magnesium hydroxide [Milk of 30 ml PO DAILY PRN PRN #0 ml 08/08/18 Magnesia] melatonin 6 mg PO HS #0 tab 08/08/18 pantoprazole 40 mg PO DAILY@0730 #0 tab 08/08/18 bisacodyl 5 mg tablet,delayed 5 mg PO ONCE #4 tab 01/25/19 release polyethylene glycol 3350 17 gram 255 g PO DAILY #15 each 01/25/19 oral powder packet Allergies Allergy/AdvReac Type Severity Reaction Status Date / Time Penicillins AdvReac Severe Vomiting Verified 02/16/19 12:59 hydrocodone AdvReac Intermediate vomiting Verified 02/16/19 12:36 General Stated Complaint: GenMedical LILLIAN: 2 Review of Systems All systems reviewed & are unremarkable except as noted in HPI and below Constitutional Constitutional: Reports fever(s) Respiratory Respiratory: Reports cough Integumentary/Breasts Skin/Breast: Reports as per HPI [facility] Medical History Aortic insufficiency (Inactive) s/p valve replacement Aortic valve endocarditis (Acute) 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 GERD (gastroesophageal reflux disease) (Inactive) HCAP (healthcare-associated pneumonia) (Inactive) 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) (Acute) Hepatitis C (Chronic) HTN (hypertension) (Chronic) Hx of deep venous thrombosis (Inactive) on Coumadin MSSA (methicillin susceptible Staphylococcus aureus) septicemia (Acute) Opiate dependence (Chronic) managed on suboxone Right rotator cuff tear (Inactive) Splenic abscess (Inactive) Tinea corporis (Inactive) Surgical History H/O aortic valve replacement (Acute) Pericardial aortic valve at [facility] - 08/21/2018 - Magna Ease 25 mm History of ankle surgery (Acute) S/P hardware removal (Inactive) L ankle. S/P percutaneous endoscopic gastrostomy (PEG) tube placement (Acute) S/P spinal surgery (Acute) Family History Father Heart disease in his 50's. Mother COPD (chronic obstructive pulmonary disease) Social History Smoking/Tobacco Use Status: Current every day Tobacco Type: cigarettes Alcohol Intake: never Drug use: Current Sobriety Caregiver/Support person: Yes Household members: spouse current occupation: Disabled Current gender identity: male Do you feel safe in your relationship?: Yes Exam Const General: cooperative and no acute distress HENMT Mouth: moist mucous membranes Eyes Conjunctivae: normal conjunctivae Sclera: normal sclerae Neck Neck: trachea midline and supple Resp Auscultation: clear to auscultation bilaterally, no rales, no rhonchi and no wheezes Cardio Jugular venous pressure: no JVD Rate: regular rate and not tachycardic Rhythm: regular rhythm GI Palpation: soft, not firm, no guarding, no masses, not rigid and nontender Skin General skin exam: no fluctuance and other (Left ankle surgical wound healing with some yellow discharge, mild erythema) Neuro General: alert, awake, oriented x3 and tone normal Speech: abnormal speech other (Slowed and broken at times) Extrem General: no edema Psych Appearance: grossly normal Mental Status: mental status grossly normal Course Vital Signs Vital signs: Vital Signs Temperature 36.2 C L 02/16/19 12:32 Pulse 84 02/16/19 12:32 Respiratory Rate 16 02/16/19 12:32 Blood Pressure 146/88 H 02/16/19 12:32 Pulse Oximetry 97 02/16/19 12:32 Temperature 36.2 C L 02/16/19 12:32 Temperature Source Skin 02/16/19 12:32 Pulse 84 02/16/19 12:32 Respiratory Rate 16 02/16/19 12:32 Respiratory Effort Non-Labored 02/16/19 12:32 Blood Pressure 146/88 H 02/16/19 12:32 Blood Pressure Position Sitting 02/16/19 12:32 Pulse Oximetry 97 02/16/19 12:32 Oxygen Delivery Method Room Air 02/16/19 12:32 Oxygen Flow Rate 0 02/16/19 12:32 Pain Level 0 02/16/19 12:32
[2019-02-16] MEDS: Lactated Ringers 1,000 ML 125 ML IV ×3 (13:31→22:41)
[2019-02-16 13:32] LABS: Abs Immature Grans 0.09 k/cumm (0.0-0.09); HCT 36.9 % (40.0-50.0); HGB 11.9 g/dL (13.5-17.5); Mean Corp. HGB Concentration 32.2 g/dL (32.0-36.0); Mean Corpuscular Hemoglobin 29.4 pg (27.0-33.0); Mean Corpuscular Volume 91.1 fL (80-95); Mean Platelet Volume 9.9 fL (8.0-11.0); RBC 4.05 m/cumm (4.50-6.00); RBC Distribution Width 16.8 % (11.8-14.1); White Blood Cell Count 20.27 k/cumm (4.4-10.8)
[2019-02-16] MEDS: CEFEPIME 2 GM in Normal Saline 100 ML IVPB (13:32)
[2019-02-16] MEDS: Normal Saline Flush 10 ML SYR IVP (13:32)
[2019-02-16 13:37] LABS: Lactate 2.3 mmol/L (0.6-1.4)
[2019-02-16 13:40] LABS: INR 1.8 (0.9-1.1); Prothrombin Time 17.4 sec (9.3-11.0)
[2019-02-16 13:44] LABS: ALT 9 U/L (16-63); AST 10 U/L (15-37); Albumin 2.9 g/dL (3.4-5.0); Alkaline Phosphatase 84 U/L (46-116); Anion Gap 11.2 mmol/L (3-11); BUN 27 mg/dL (7-18); Bilirubin, Total 0.3 mg/dL (0.2-1.0); CO2 24.8 mmol/L (21.0-32.0); CREATININE 1.27 mg/dL (0.70-1.30); Calcium 9.8 mg/dL (8.5-10.1); Chloride 104 mmol/L (98-107); Estimated GFR 59.32 (mL/min/1.73m2); Glucose 226 mg/dL (74-106); Potassium 4.2 mmol/L (3.5-5.1); Sodium 140 mmol/L (136-145); Total Protein 8.3 g/dL (6.4-8.2)
[2019-02-16 13:55] LABS: Absolute Lymphocyte Count 0.61 k/cumm (1.2-3.4); Absolute Monocyte Count 1.42 k/cumm (0.11-0.7); Absolute Neutrophil Count 17.03 k/cumm (1.2-6.7); Diff Comment Manual Differential; Nucleated RBC 1 /100WBC; Platelet Count 288 x1000/uL (130-400)
[2019-02-16 13:57] LABS: Poikilocytes 2+
[2019-02-16] MEDS: Enoxaparin 40 MG/0.4 ML SYR SC (15:58)
--- NOTE | 2019-02-16 16:47 | W.PM.HP.N ---
Date of service: 02/16/19 Time of Service: 16:47 Assessment and Plan Assessment and plan (1) Sepsis: Status: Acute Assessment and plan: Bacteremic with gram-positive cocci. Highly suspicious for the MSSA that he had recently been treated for related to the left ankle osteomyelitis. Empiric treatment with vancomycin and cefepime pending further delineation of culture results. (2) Wound of left ankle: Status: Acute Assessment and plan: Likely left ankle osteomyelitis related to recent surgical removal of hardware (12/20/2018). He just completed a 6-week course of cefazolin. Orthopedic consultation regarding the possibility of further debridement and management of ongoing left ankle infection/osteomyelitis. (3) H/O aortic valve replacement: Status: Acute Assessment and plan: He has a bioprosthetic aortic valve, 3300 TF X. He does not require anticoagulation for this valve. There is concern about the possibility of bacterial infection on the valve. Plan is to get an echocardiogram once available, 02/18/2019. We did discuss the case with [facility] hospitalist service. They did not feel they would be able to get diagnostic imaging any sooner and declined transfer. (4) DVT, lower extremity: Status: Acute Assessment and plan: Patient is on 6 months of warfarin anticoagulation for DVT. INR is 1.8. Will continue on warfarin 5 mg daily until INR is therapeutic. His maintenance dose was 5 mg alternating with 2.5 mg. (5) HCAP (healthcare-associated pneumonia): Status: Acute Assessment and plan: Dense left lower lobe infiltrate. By exam he also has something on the right side. Empirically treated with vancomycin and cefepime. Oxygenation is good. He has no respiratory symptoms at this time. (6) Discharge planning issues: Status: Acute Assessment and plan: He is agreed to a full admission. Will continue to monitor in acute care status with orthopedic consultation. If his condition deteriorates would consider a higher level of care at a tertiary care center. History of Present Illness History of Present Illness Chief Complaint: Bacteremia/left ankle osteomyelitis Narrative: This is a 53-year-old man admitted yesterday for left lower lobe pneumonia. He had a known history of a left ankle osteomyelitis and MSSA infection and he had recently completed a course of cefazolin. He was empirically placed on vancomycin and cefepime. At about 2 AM he decided to leave the hospital AGAINST MEDICAL ADVICE. At about 6 AM his blood cultures turned positive for gram-positive cocci. He was contacted at home and asked to come back to the hospital for further antibiotic treatment. Dr. Carlson from orthopedics came by to see him but he had already gone home. He has a concern that the ankle is still infected and may need surgical debridement. He and his both had noticed that there was a yellow purulent discharge from the left ankle. They had been keeping it dry and not allowed it to be cleaned. He is readmitted for further antibiotic therapy. Review of Systems Narrative: Patient has been sick for about 3 days. He had a mild cough and is been having intermittent fevers up to 103. He has not had any chest pain at all. His left ankle just had the sutures removed a few days ago. There is been some yellowish drainage on the bandage. The overlying skin has some slight erythema that the home health nurses said looked normal. 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 GERD (gastroesophageal reflux disease) (Inactive) HCAP (healthcare-associated pneumonia) (Inactive) 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) (Acute) Hepatitis C (Chronic) HTN (hypertension) (Chronic) Hx of deep venous thrombosis (Inactive) on Coumadin MSSA (methicillin susceptible Staphylococcus aureus) septicemia (Acute) Opiate dependence (Chronic) managed on suboxone Right rotator cuff tear (Inactive) Splenic abscess (Inactive) Tinea corporis (Inactive) Surgical History H/O aortic valve replacement (Acute) Pericardial aortic valve at [facility] - 08/21/2018 - Magna Ease 25 mm History of ankle surgery (Acute) S/P hardware removal (Inactive) L ankle. S/P percutaneous endoscopic gastrostomy (PEG) tube placement (Acute) S/P spinal surgery (Acute) Family History Father Heart disease in his 50's. Mother COPD (chronic obstructive pulmonary disease) Social History Smoking/Tobacco Use Status: Current every day Tobacco Type: cigarettes Alcohol Intake: never Drug use: Current Sobriety Caregiver/Support person: Yes Household members: spouse current occupation: Disabled Current gender identity: male Do you feel safe in your relationship?: Yes Meds Home Medications and Allergies Home Medications Medication Instructions Recorded Confirmed Type albuterol sulfate [Ventolin HFA] 2 puff INHALATION Q2H PRN PRN #1 12/04/16 02/16/19 Rx inh acetaminophen [Tylenol] 650 mg PO Q4H PRN PRN #0 tab 08/08/18 02/16/19 Rx buprenorphine-naloxone 2 tab SUBLINGUAL BID #0 tab 08/08/18 02/16/19 Rx docusate sodium [Colace] 100 mg PO BID #0 cap 08/08/18 02/16/19 Rx duloxetine [Cymbalta] 30 mg PO DAILY #0 cap 08/08/18 02/16/19 Rx insulin aspart U-100 [Novolog 0 units SUBCUT 0800,1200,1700 #0 ml 08/08/18 02/16/19 Rx Flexpen U-100 Insulin] insulin glargine [Lantus Solostar 35 units SUBCUT HS #0 ml 08/08/18 02/16/19 Rx U-100 Insulin] levetiracetam [Keppra] 500 mg PO BID #0 tab 08/08/18 02/16/19 Rx magnesium hydroxide [Milk of 30 ml PO DAILY PRN PRN #0 ml 08/08/18 02/16/19 Rx Magnesia] melatonin 6 mg PO HS #0 tab 08/08/18 02/16/19 Rx pantoprazole 40 mg PO DAILY@0730 #0 tab 08/08/18 02/16/19 Rx warfarin 2.5 mg tablet 2.5 mg PO Q OTHER DAY 09/27/18 02/16/19 History warfarin 5 mg tablet 5 mg PO Q OTHER DAY 09/27/18 02/16/19 History bisacodyl 5 mg tablet,delayed 5 mg PO ONCE #4 tab 01/25/19 02/16/19 Rx release polyethylene glycol 3350 17 gram 255 g PO DAILY #15 each 01/25/19 02/16/19 Rx oral powder packet acetaminophen [Tylenol Extra 500 mg PO Q6H PRN 02/15/19 02/16/19 History Strength] albuterol sulfate [ProAir HFA] 2 puff INHALATION Q4H PRN 02/15/19 02/16/19 History aspirin 81 mg PO DAILY 02/15/19 02/16/19 History ferrous gluconate 324 mg PO BID 02/15/19 02/16/19 History fluticasone propionate [Flovent 2 puff INHALATION BID 02/15/19 02/16/19 History HFA] furosemide [Lasix] 40 mg PO DAILY 02/15/19 02/16/19 History gabapentin 300 mg PO TID 02/15/19 02/16/19 History levetiracetam [Keppra] 500 mg PO BID 02/15/19 02/16/19 History lisinopril 10 mg PO DAILY 02/15/19 02/16/19 History metformin 1,000 mg PO DAILY 02/15/19 02/16/19 History metoprolol tartrate 50 mg PO BID 02/15/19 02/16/19 History polyethylene glycol 3350 [Miralax] 17 g PO DAILY 02/15/19 02/16/19 History Allergies Allergy/AdvReac Type Severity Reaction Status Date / Time Penicillins AdvReac Severe Vomiting Verified 02/16/19 12:59 hydrocodone AdvReac Intermediate vomiting Verified 02/16/19 12:36 Exam Narrative Exam Narrative: On exam he is diaphoretic. He has speech difficulty with some slow speech and word finding difficulty but overall intelligible and coherent. He has a right-sided hemiplegia primarily with weakness in his right arm. He can only raise his right arm about the level of his shoulders. Very weak pan cleaner. His right leg can flex and extend against gravity but does show some overall weakness versus the left his lung sounds are notable for some rales of both the right and left bases with decreased breath sounds at the left base. His heart sounds are regular. There is clear S1 and S2. I do not detect any significant murmur. His abdomen is quite obese but soft and nontender. No masses are palpable. The lower extremities notable for swelling around the left ankle. He has a vertical incision that is about 12 cm long. There is a macerated appearance to the center of the wound with some yellowish drainage. Mildly erythematous around the wound edges. There is no fluctuance or fluid collection along the wound edges. He appears to be able to use the ankle and passive range of motion without difficulty. The right ankle does not show any outward sign of deformity. Results Imaging Additional studies: SPEC #: [id number] JUNITO: 02/15/19 STATUS: RES REQ #: [id number] RECD: 02/15/[address]: FREDRICK WANG MD STACY: - OTHR DR: Russell LUNDBREG, Renetta MONET, ZACH CARLSON MD, SÁNCHEZ [facility],InPatient FAX #: SOURCE:Ankle SPECIMEN DESCRIPTION:Left Procedure Result Verified Wound Culture Preliminary 02/16/19 Day 1 Result ISOLATES BELOW DAY 1 GROWTH MODERATE GROWTH ISOLATE 1 APPEARANCE Gram Positive Kendra ISOLATE 1 ACTION ID AND SUSCEPTIBILITY TO FOLLOW DAY 1 GROWTH MODERATE GROWTH ISOLATE 2 APPEARANCE Gram Positive Kendra ISOLATE 2 ACTION IDENTIFICATION TO FOLLOW Organism 1 GRAM POSITIVE KENDRA GROWTH MODERATE GROWTH Organism 2 GRAM POSITIVE KENDRA#2 GROWTH MODERATE GROWTH Gram Stain Final 02/15/19 GRAM STAIN No White Blood Cells Moderate Gram Positive Cocci Rare Gram Positive Yandel Rare Gram Negative Yandel Patient: [facility] Acct#[id number] Unit#[id number] PEC #: [id number] JUNITO: 02/15/19 STATUS: COMP REQ #: [id number] RECD: 02/15/[address]: FREDRICK WANG MD ENTERED: 02/15/[address]: ALMA MONET, ZACH FAX #: ORDERED: Urine Drug Scr Test Result Flag Reference Verified Methadone Negative Negative 02/15/19 Benzodiazepines Negative Negative 02/15/19 Benzodiazepines are extensively metabolized and the parent compound may not be detected in urine. If clinical suspicion is high, please notify Lab for send-out testing. Cocaine Negative Negative 02/15/19 Amphetamines Negative Negative 02/15/19 Tetrahydrocannabinol POSITIVE A Negative 02/15/19 Opiates Negative Negative 02/15/19 Barbiturates Negative Negative 02/15/19 Tricyclic Antidepressants Negative Negative 02/15/19 This test is not suitable for legal purposes Cutoff concentrations for each drug class are: MTD 300 ng/mL BZO 300 ng/mL JOEY 300 ng/mL* AMP 1000 ng/mL* THC 50 ng/mL OPI 300 ng/mL BAR 300 ng/mL TCA 1000 ng/mL *Recommended screening cutoff concentrations by the substance abuse and mental health services administration. This test provides preliminary results. A more specific alternate method such as GC/MS is the preferred confirmatory method. Notify the Laboratory within 72 hours of report date if you desire confirmation. Prescribed medications may give positive results and must be considered prior to interpretation of these results. Patient: [facility] Acct#[id number] Unit#[id number] Imaging Studies: CLINICAL HISTORY: cough, fever, r/o pneumonia TECHNIQUE: COMPARISON: No exams were available for comparison FINDINGS: The heart is mildly enlarged. There are multiple sternal sutures. There are areas of apparent consolidation left lung base. Otherwise lungs appear grossly clear. No significant pleural effusion seen. IMPRESSION: findings consistent with left lower lobe pneumonia. Appropriate follow-up studies requested Ordered By: Leticia Epperson DO CC: Dictated By: Manjit Art M.D. 02/15/19 1436 Labs Result diagrams: 02/16/19 13:25 02/16/19 13:25 Labs: Laboratory Results - last 24 hr 02/16/19 02/16/19 02/16/19 13:25 13:25 13:25 WBC 20.27 H RBC 4.05 L Hgb 11.9 L Hct 36.9 L MCV 91.1 MCH 29.4 MCHC 32.2 RDW 16.8 H Plt Count 288 MPV 9.9 Immature Gran % 0.0 Neutrophils % 79.0 Band Neutrophils % 5.0 Lymphocytes % 3.0 Monocytes % 7.0 Eosinophils % 0.0 Basophils % 1.0 Metamyelocytes % 2.0 Myelocytes % 2.0 Absolute Neutrophils 17.03 H Absolute Lymphocytes 0.61 L Absolute Monocytes 1.42 H Absolute Eosinophils 0.00 Absolute Basophils 0.20 Nucleated RBCs 1 Differential Comment Manual differential RBC Morphology See below Poikilocytosis 2+ PT INR Sodium 140 Potassium 4.2 Chloride 104 Carbon Dioxide 24.8 Anion Gap 11.2 H BUN 27 H Creatinine 1.27 D Estimated GFR/1.73 m2 59.32 Glucose 226 H Lactate 2.3 H* Calcium 9.8 Total Bilirubin 0.3 AST 10 L ALT 9 L Alkaline Phosphatase 84 Total Protein 8.3 H Albumin 2.9 L 02/16/19 13:25 WBC RBC Hgb Hct MCV MCH MCHC RDW Plt Count MPV Immature Gran % Neutrophils % Band Neutrophils % Lymphocytes % Monocytes % Eosinophils % Basophils % Metamyelocytes % Myelocytes % Absolute Neutrophils Absolute Lymphocytes Absolute Monocytes Absolute Eosinophils Absolute Basophils Nucleated RBCs Differential Comment RBC Morphology Poikilocytosis PT 17.4 H D INR 1.8 H D Sodium Potassium Chloride Carbon Dioxide Anion Gap BUN Creatinine Estimated GFR/1.73 m2 Glucose Lactate Calcium Total Bilirubin AST ALT Alkaline Phosphatase Total Protein Albumin Last Vital Signs Temp 36.7 C 02/16/19 15:02 Pulse 81 02/16/19 15:02 Resp 18 02/16/19 15:02 BP 143/89 H 02/16/19 15:02 Pulse Ox 97 02/16/19 15:02
[2019-02-16] MEDS: Insulin Aspart 300 UNITS/3 ML PEN SC (17:14)
[2019-02-16] MEDS: Mometasone 220 MCG 14 DOSE INHALER IH (20:53)
[2019-02-16] MEDS: Ferrous Gluconate 324 MG TAB PO (20:54)
[2019-02-16] MEDS: Gabapentin 300 MG CAP PO (20:54)
[2019-02-16] MEDS: levETIRAcetam 500 MG TAB PO (20:54)
[2019-02-16] MEDS: Metoprolol 50 MG TAB PO (20:54)
[2019-02-16] MEDS: Docusate Sodium 100 MG CAP PO (20:55)
[2019-02-16] MEDS: Warfarin 5 MG TAB PO (20:55)
[2019-02-16] MEDS: Insulin Glargine 300 UNITS/3 ML PEN 35 UNITS SC (22:27)
[2019-02-16] MEDS: Melatonin 3 MG TAB 6 MG PO (22:28)
[2019-02-17] VITALS (11 sets, daily range): BP systolic 120–147; BP diastolic 75–89; PULSE 38–92; RESP 8–20; TEMP 36.2–37; O2SAT 94–96
[2019-02-17] MEDS: CEFEPIME 2 GM in Normal Saline 100 ML IVPB ×2 (01:23→14:46)
[2019-02-17 06:56] LABS: Abs Immature Grans 0.04 k/cumm (0.0-0.09); HGB 11.4 g/dL (13.5-17.5); Mean Corp. HGB Concentration 31.7 g/dL (32.0-36.0); Mean Corpuscular Hemoglobin 29.2 pg (27.0-33.0); Mean Corpuscular Volume 92.1 fL (80-95); Mean Platelet Volume 10.1 fL (8.0-11.0); Platelet Count 329 x1000/uL (130-400); RBC 3.91 m/cumm (4.50-6.00); RBC Distribution Width 16.9 % (11.8-14.1); White Blood Cell Count 15.94 k/cumm (4.4-10.8)
[2019-02-17 06:59] LABS: INR 1.8 (0.9-1.1); Prothrombin Time 18.1 sec (9.3-11.0)
[2019-02-17 07:08] LABS: ALT 8 U/L (16-63); AST 7 U/L (15-37); Albumin 2.5 g/dL (3.4-5.0); Alkaline Phosphatase 65 U/L (46-116); Anion Gap 8.5 mmol/L (3-11); BUN 30 mg/dL (7-18); Bilirubin, Total 0.2 mg/dL (0.2-1.0); CO2 27.5 mmol/L (21.0-32.0); CREATININE 1.09 mg/dL (0.70-1.30); Calcium 9.1 mg/dL (8.5-10.1); Chloride 106 mmol/L (98-107); Glucose 177 mg/dL (74-106); Potassium 3.8 mmol/L (3.5-5.1); Sodium 142 mmol/L (136-145); Total Protein 7.2 g/dL (6.4-8.2)
--- NOTE | 2019-02-17 07:14 | OCONE_ITS ---
Date of service: 02/17/19 Time of Service: 08:14 History of Present Illness History of Present Illness Chief Complaint: Left Ankle Wound Narrative: Mio is a 53 year old male who has multiple medical issues. 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 He had an ankle fracture fixed in April of 2018 at [facility]. He then presented to [facility] in July of 2018 with bacteremia and sepsis and was discovered to have aortic valve endocarditis. He was transferred to [facility] and underwent aortic valve replacement in August 2018. His sepsis and bacteremia improved but then he presented to [facility] for pain about the left ankle. This was in November. The hardware was removed on December 20, 2018. Bone cultures at the time returned positive for MSSA and thus he was started on IV antibiotics, Cefazolin. He completed this treatment and had notable improvement in pain and function after the hardware removal and antibiotics. However, he has had an area of the wound which has never healed. He most recently saw orthopaedics at [facility] two weeks ago where the last sutures were removed and he continues to be followed by nursing. He presented to the [facility] ED on 02/15/19 with increasing fever, malaise, and cough. He was diagnosed with a pneumonia but left AMA on 02/16/19. His blood cultures drawn at that time returned positive. He was called, informed of this data, and then asked to return. He does report some increasing drainage from the left ankle wound, although usually a thin yellow drainage it has been a bit thicker but never described as purulent. He denies any significant increase in pain or erythema. He is still able to ambulate. Consults Consult date: 02/17/19 Requesting physician: Mio Johansen Consult Reason Left chronic ankle wound Assessment and Plan Assessment and plan (1) Wound of left ankle: Status: Acute Assessment and plan: Mio is a 53-year-old who continues to have a wound over the lateral left ankle. The initial surgery was in December 20. The healing course is not unexpected given his edema, diabetes, and underlying infection. I do not see any signs of acute infection. The skin edges are adherent. I do think some local wound care would be beneficial. This will include debridement of the exudate and making sure that the wound bed, between the skin edges, is granular and exposed for secondary healing. I also think is imperative that he work on his swelling. He does have compression socks but is not keen on wearing them. Therefore, when he is not ambulating, I want his legs elevated I also want him to have a compression wrap with Haroldo wraps to help remove some of this fluid and promote healing. Qualifiers: Encounter type: initial encounter Qualified Code(s): S91.002A - Unspecified open wound, left ankle, initial encounter (2) Osteomyelitis of left fibula: Status: Acute Assessment and plan: Mio just completed treatment for his left fibular osteomyelitis. While it is possible he still has some residual osteomyelitis his exam is quite reassuring. I think the current bacteremia may be due from the lungs or vice versa. However, I do not think the fibula has an active osteomyelitis. He has had no increase in pain and there is no superficial findings to suggest this. However, he does have an open wound still over this area and therefore it is always a possibility. An MRI would be best to identify any changes suggestive of an active osteomyelitis. However, in the setting of recent infection hardware removal and recent osteomyelitis, this can be difficult to ascertain. Therefore, I would base this on symptoms. If he has any increase in pain or any increase in drainage from the left ankle, then I would perform an MRI looking for possible intraosseous abscess. However, until then, I would treat conservatively with good wound care. I will continue to follow him. 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 GERD (gastroesophageal reflux disease) (Inactive) HCAP (healthcare-associated pneumonia) (Inactive) 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) (Acute) Hepatitis C (Chronic) HTN (hypertension) (Chronic) Hx of deep venous thrombosis (Inactive) on Coumadin MSSA (methicillin susceptible Staphylococcus aureus) septicemia (Acute) Opiate dependence (Chronic) managed on suboxone Right rotator cuff tear (Inactive) Splenic abscess (Inactive) Tinea corporis (Inactive) Surgical History H/O aortic valve replacement (Acute) [place]ard[place] [facility] [place] - Magna Ease 25 mm History of ankle surgery (Acute) S/P hardware removal (Inactive) L ankle. S/P percutaneous endoscopic gastrostomy (PEG) tube placement (Acute) S/P spinal surgery (Acute) Family History Father Heart disease in his 50's. Mother COPD (chronic obstructive pulmonary disease) Social History Smoking/Tobacco Use Status: Current every day Tobacco Type: cigarettes Alcohol Intake: never Drug use: Current Sobriety Caregiver/Support person: Yes Household members: spouse current occupation: Disabled Current gender identity: male Do you feel safe in your relationship?: Yes Exam Const General: cooperative, comfortable and no acute distress Nutritional Appearance: overweight Orientation: alert, awake and oriented x3 Limitations: language barrier (Dysphasia) Extrem Ankle/foot/toe images: 1. Incision with one primary open area at the distal 1/3 2. Exudate and minor (1-2mm) wound diastasis without visible bone/tendon. Other: The left lower extremity does show notable pitting edema throughout from about the distal leg down to the toes. There is an exudate seen over the distal one third of the left lateral ankle incision. There is no gross diastases of the wound. The skin edges are adherent down to the fibula. There is very minimal tenderness to palpation of the fibula. There is no pain to percussion of the fibula. There is some minor pain right around the incision site. Both passive and active range of motion of the ankle causes no increase in pain. Active eversion and inversion of the ankle is intact with good strength. No fluctuance nor expressible fluid. Results Last Vital Signs Temp 36.2 C L 02/17/19 03:20 Pulse 38 L 02/17/19 05:07 Resp 17 02/17/19 03:20 BP 120/75 02/17/19 03:20 Pulse Ox 95 02/17/19 03:20 Labs Result diagrams: 02/17/19 06:25 02/17/19 06:25 Labs: Laboratory Results - last 24 hr 02/16/19 02/16/19 02/16/19 13:25 13:25 13:25 WBC 20.27 H RBC 4.05 L Hgb 11.9 L Hct 36.9 L MCV 91.1 MCH 29.4 MCHC 32.2 RDW 16.8 H Plt Count 288 MPV 9.9 Immature Gran % 0.0 Neutrophils % 79.0 Band Neutrophils % 5.0 Lymphocytes % 3.0 Monocytes % 7.0 Eosinophils % 0.0 Basophils % 1.0 Metamyelocytes % 2.0 Myelocytes % 2.0 Absolute Neutrophils 17.03 H Absolute Lymphocytes 0.61 L Absolute Monocytes 1.42 H Absolute Eosinophils 0.00 Absolute Basophils 0.20 Nucleated RBCs 1 Differential Comment Manual differential RBC Morphology See below Poikilocytosis 2+ PT INR Sodium 140 Potassium 4.2 Chloride 104 Carbon Dioxide 24.8 Anion Gap 11.2 H BUN 27 H Creatinine 1.27 D Estimated GFR/1.73 m2 59.32 Glucose 226 H Lactate 2.3 H* Calcium 9.8 Total Bilirubin 0.3 AST 10 L ALT 9 L Alkaline Phosphatase 84 Total Protein 8.3 H Albumin 2.9 L 02/16/19 02/17/19 13:25 06:25 WBC RBC Hgb Hct MCV MCH MCHC RDW Plt Count MPV Immature Gran % Neutrophils % Band Neutrophils % Lymphocytes % Monocytes % Eosinophils % Basophils % Metamyelocytes % Myelocytes % Absolute Neutrophils Absolute Lymphocytes Absolute Monocytes Absolute Eosinophils Absolute Basophils Nucleated RBCs Differential Comment RBC Morphology Poikilocytosis PT 17.4 H D 18.1 H INR 1.8 H D 1.8 H Sodium Potassium Chloride Carbon Dioxide Anion Gap BUN Creatinine Estimated GFR/1.73 m2 Glucose Lactate Calcium Total Bilirubin AST ALT Alkaline Phosphatase Total Protein Albumin
[2019-02-17 07:35] LABS: Absolute Basophil Count 0.16 k/cumm (0.0-0.2); Absolute Eosinophil Count 0.64 k/cumm (0.0-0.7); Absolute Lymphocyte Count 1.43 k/cumm (1.2-3.4); Absolute Monocyte Count 0.96 k/cumm (0.11-0.7); Absolute Neutrophil Count 12.43 k/cumm (1.2-6.7); Diff Comment Manual Differential; Polychromasia Present
[2019-02-17 07:36] LABS: Poikilocytes 2+
[2019-02-17] MEDS: Pantoprazole 40 MG TABCR PO (07:45)
[2019-02-17] MEDS: Insulin Aspart 300 UNITS/3 ML PEN SC ×3 (08:17→17:14)
[2019-02-17] MEDS: Metoprolol 50 MG TAB PO ×2 (08:19→20:29)
[2019-02-17] MEDS: Aspirin 81 MG CHEW PO (08:19)
[2019-02-17] MEDS: levETIRAcetam 500 MG TAB PO ×2 (08:19→20:28)
[2019-02-17] MEDS: Furosemide 40 MG TAB PO (08:19)
[2019-02-17] MEDS: Gabapentin 300 MG CAP PO ×3 (08:20→20:29)
[2019-02-17] MEDS: Lisinopril 20 MG TAB 10 MG PO (08:20)
[2019-02-17] MEDS: Docusate Sodium 100 MG CAP PO ×2 (08:20→20:29)
[2019-02-17] MEDS: Ferrous Gluconate 324 MG TAB PO ×2 (08:20→20:29)
[2019-02-17] MEDS: DULoxetine 30 MG CAP PO (08:21)
[2019-02-17] MEDS: Lactated Ringers 1,000 ML 125 ML IV ×2 (09:33→18:10)
[2019-02-17] MEDS: Mometasone 220 MCG 14 DOSE INHALER IH (09:39)
[2019-02-17] MEDS: Albuterol 2.5 MG/3 ML INH SOLN VIAL UPD (09:44)
--- NOTE | 2019-02-17 10:00 | INITIAL_ITS ---
- If Service Date Differs Date of service: 02/17/19 Time of Service: 10:01 Care Management Initial Assess REASON FOR HOSPITALIZATION:: Bacteremia/Ankle Osteomyelitis PAST MEDICAL HISTORY/PAST SURGICAL HISTORY:: Medical History. Aortic insufficiency (Inactive). s/p valve replacement. Aortic valve endocarditis (Acute). 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 Chest pain with low risk for cardiac etiology (Inactive). Chronic anticoagulation (Acute). Depression (Chronic). Diabetes (Chronic). Displaced bimalleolar fracture of left ankle (Inactive). s/p infection of wound. 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 Endocarditis (Acute). Flash pulmonary edema (Inactive). G tube feedings (Acute). Per referral form Zach Sanders 09/18/18 placed by [facility] [place] for [place]ocarditis, no longer using. GERD (gastroesophageal reflux disease) (Inactive). HCAP (healthcare-associated pneumonia) (Inactive). 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 Hepatitis C (Chronic). HTN (hypertension) (Chronic). Hx of deep venous thrombosis (Inactive). on Coumadin. MSSA (methicillin susceptible Staphylococcus aureus) septicemia (Acute). Opiate dependence (Chronic). managed on suboxone. Right rotator cuff tear (Inactive). Splenic abscess (Inactive). Tinea corporis (Inactive). Surgical History. H/O aortic valve replacement (Acute). Pericardial aortic valve at [facility] [place] - 08/21/2018 - Magna Ease 25 mm. History of ankle surgery (Acute). S/P hardware removal (Inactive). L ankle. S/P percutaneous endoscopic gastrostomy (PEG) tube placement (Acute). S/P spinal surgery (Acute PREVIOUS FUNCTIONAL STATUS/SOCIAL/FAMILY SUPPORTS:: Mio lives in [place] with his , Rekha, who is identified as his main support. He has not worked for many years due to chronic illnesses. He has an adult daughter, Xochitl, who has two children. He also has a twelve year old son at home, Adriel. 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 He is very thankful to be alive, despite now having deficits. His helps him with his ADL's. CURRENT FUNCTIONAL STATUS:: Mio was sitting up in his bed when CM met with him. He reported that he is feeling better today. He reported that he had been here the day prior, but left AMA the same day. He stated that he didn't feel like he needed to be here. He was then called to come back in as his culture results were positive. There is a surgical consult to determine a plan for his wound care. He is agreeable to staying at [facility] to be monitored and to treat infection. ADVANCE DIRECTIVES:: None on file. CM brought him a blank copy of the [place] advance directive, as requested by Mio. He reported that his will help him fill it out. Has patient been provided with information about the portal?: No Did the patient sign up for the portal?: No CODE STATUS:: Full Code INSURANCE COVERAGE / FINANCIAL ISSUES:: [employer] CURRENT HOME/COMMUNITY SERVICES/EQUIPMENT:: Mio currently has HH RN for wound care. PRIMARY CARE PHYSICIAN:: Zach Sanders POTENTIAL DISCHARGE NEEDS:: Evaluation for further needs, follow up appointments PATIENT/FAMILY EDUCATION NEEDS:: Review discharge instructions, discussion of self care needs including Ask Me Three ANTICIPATED BARRIERS TO DISCHARGE:: None identified at this time. TRANSPORTATION:: His , Arline, will drive him home via private vehicle when ready. PLAN:: Ortho has been consulted to determine the best plan for Mio's wound care. Anticipate Mio will return home once medically cleared with a resumption of HH RN for wound care. He will follow up with Ortho and his PCP, as recommended. Arline will drive him home when ready. CM will continue to follow and support discharge planning considerations. Readmission - Within the Past 30 Days Yes or No: Y - Date of First Admission Date of 1st Admission: 02/15/19 - Date of this Admission Date of Admission: 02/16/19 This admission was: Through ED - Office Visit Since 1st Admission Have you seen your PCP in the office since discharge?: No Had an appointment Been Scheduled?: Yes Date of Scheduled Appointment: 02/27/2018 - I. Interview patient and/or Family Difficulty reaching your doctor or getting an office appt?: No Have you had trouble purchasing/ or taking medication?: No How do you take your medications and set up your pills?: His supports him with this. Have you had trouble with getting meals at home?: No Describe your typical meals since you have been home: His cooks and feeds him very well, per Mio. Did you feel ready for discharge when you left the last time: Yes (Didn't feel like he needed to stay) Did you call your physician beore you came to the ED?: No Did your physician tell you to come in?: Yes ([facility] hospitalist asked him to come in) How do you think you became sick enough to come back?: After his cultures were positive, [facility] called him to inform him that he should come back to be treated, since he left [place] previously. He did not hesitate to come in. - ED visits How many ED visits in the past 12 months: 4 - Assessment for Readmission Summary of readmission circumstances, based upon interviews: Mio described himself as bullheaded regarding his previous admission as he left [place], thinking that he did not need to be in the hospital. When he was given his test results and asked to come back for treatment, he did not hesitate to return to [facility]. He is thankful to be alive after the medical problems he has had this year, and is eager to seek treatment.
--- NOTE | 2019-02-17 13:39 | PHARADMIT ---
Addendum entered by Maira Del Rio 02/19/19 17:13: Pharmacy Note Subjective MD to talk to ID today Objective BP-150/89 HR-97 other VS okay INR-2.0 h/h-up BG-165 Assessment furosemide ordered daily, metoprolol still on hold due to betablocker cefepime continued (day 4 today) Plan possible transition to po abx within 24 hours Addendum entered by Maira Del Rio 02/18/19 17:35: Pharmacy Note Subjective pt had some pauses in HR overnight per morning report. ECHO, cardiology consult ordered for today pt still refusing bipap Objective BP-151/82 other VS okay mag-1.7 INR-2.2 WBC-9.24(down) BG-166 Assessment warfarin dose changed from 5 mg every night to alternating 2.5 mg and 5 mg furosemide discontinued and metoprolol cancelled cefepime continues (day 3 today) Plan continue to watch VS, labs and for med changes Original Note: Admission Pharmacy Clinical Review +BLOOD CULTURES, Also LL Pneumonia Code Status Full Code Current Weight 112 kg Renally Cleared and Narrow Therapeutic Index Meds CrCl~83ml/min QTc Value / Action Taken BP Control, Fever BP 127/89 Afebrile Electrolytes reviewed K+ 3.8 DVT Prophylaxis Warfarin 5mg daily plus Lovenox....MD to d/c Lovenox @ home patient alternates w/2.5mg and 5mg QOD Opiate Usage / Scheduled Bowel Regimen Ordered Plt/SCr for Heparin / Enoxaparin Plt 329 SCr 1.09 INR for Warfarin INR 1.8 H/H stable, WBC/Bands H/H 11.4/36.0 WBC 15.94 (down from 20.27) Antibiotic appropriateness Cefepime 2gram IV q12h (could be Q8h or Q12h...not in septic shock) Vanco x a few doses....dc'd due to possible alisson's syndrome, and blood cultures are not MRSA Cultures and Sensitivities Blood cultures: Positive Strep Pneumoniae (need to look at all visits) Ankle: heavy Staph and Corynebacterium Surgical ABX d/c within 24 hr DM control / Insulin Dosing BG 177 (Novolog/Lantus) Heart Failure (Check EF%) (COLIN's, B-Block, Diuretics) Lasix, Lisinopril, Lopressor IV to PO Switch Home Meds Reviewed Home Meds Not Ordered Metformin, Comments Suboxone BID Pt came in day prior but left AMA..... called to ask him to return for positive blood cultures, source likely coming from ankle wound Ortho consult: was previously treated for MSSA @ [facility] [place] s/p hardware removal November 2018....will watch and see how wound looks before further procedures
--- NOTE | 2019-02-17 16:13 | W.PM.PROGNOT ---
Date of Service Date of service: 02/17/19 Time of Service: 16:13 Assessment and Plan Assessment and plan (1) Osteomyelitis of left fibula: Status: Acute Assessment and plan: Patient just finished a 6-week course of IV antibiotics. Dr. Carlson felt the wound looked clean enough. It did not think it needed to be reopened. He recommended keeping it elevated and recommended dressing changes. He did not think this was the source of his bacteremia. Qualifiers: Osteomyelitis type: subacute Qualified Code(s): M86.262 - Subacute osteomyelitis, left tibia and fibula (2) H/O aortic valve replacement: Status: Acute Assessment and plan: Patient's aortic valve appears to be functioning well. There is no evidence of congestive heart failure. There is no significant murmur. Will check echocardiogram tomorrow. (3) DVT, lower extremity: Status: Acute Assessment and plan: Continues on warfarin therapy. INR 1.8 today. Continue 5 mg nightly until INR therapeutic. (4) HCAP (healthcare-associated pneumonia): Status: Acute Assessment and plan: Patient's bacteremia is probably on the basis of the left lower lobe pneumonia. Will DC the vancomycin. Continue the cefepime directed at strep pneumo. (5) Diabetes mellitus: Status: Chronic Assessment and plan: Blood sugars are below 200 for the first time in months according to the patient. Continue on present regimen. (6) 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): Status: Acute Assessment and plan: Hemiparesis on the right side unchanged. His dysarthria is unchanged. (7) Discharge planning issues: Status: Acute Assessment and plan: Continue to monitor in acute care status. He remains a full code. Subjective Subjective Interval history since last seen: Patient is feeling better today. He is not having any further fevers or sweats. He saw Dr. Carlson and was pleased to find that he did not need any procedures done on his left ankle. He is not having any chest pain or shortness of breath. Appetite remains good. Overnight telemetry showed 1 dip into the 40s otherwise telemetry has been stable. He had a reaction to the vancomycin with a rash. Exam Narrative Exam Narrative: On exam he is pleasant alert and in no apparent distress. His lungs were clear. His heart sounded regular. No significant murmur detected. No abdominal tenderness. The left ankle dressing is clean and dry. There is no surrounding erythema or worsening swelling. The right lower leg looked fine. Objective Objective Clinical Data: Abnormal lab results 02/17/19 02/17/19 02/17/19 Range/Units 06:25 06:25 06:25 WBC 15.94 H (4.4-10.8) k/cumm RBC 3.91 L (4.50-6.00) m/cumm Hgb 11.4 L (13.5-17.5) g/dL Hct 36.0 L (40.0-50.0) % MCHC 31.7 L (32.0-36.0) g/dL RDW 16.9 H (11.8-14.1) % Absolute Neutrophils 12.43 H (1.2-6.7) k/cumm Absolute Monocytes 0.96 H (0.11-0.7) k/cumm PT 18.1 H (9.3-11.0) sec INR 1.8 H (0.9-1.1) BUN 30 H (7-18) mg/dL Glucose 177 H (74-106) mg/dL AST 7 L (15-37) U/L ALT 8 L (16-63) U/L Albumin 2.5 L (3.4-5.0) g/dL Vital Signs Temperature 36.7 C 02/17/19 07:30 Temperature Source Tympanic 02/17/19 07:30 Pulse 80 02/17/19 11:25 Pulse Rhythm Regular 02/17/19 07:57 Pulse 85 02/16/19 14:20 Respiratory Rate 16 02/17/19 09:51 Respiratory Effort Non-Labored 02/17/19 07:57 Respiratory Depth Normal 02/17/19 07:57 Respiratory Pattern Normal 02/17/19 07:57 Blood Pressure 127/89 02/17/19 07:30 Blood Pressure Mean 93 02/16/19 14:15 Blood Pressure Position Sitting 02/16/19 12:32 Pulse Oximetry 96 02/17/19 09:51 Oxygen Delivery Method Room Air 02/17/19 07:30 Oxygen Flow Rate 0 02/17/19 07:30 Pain Level 0 02/17/19 07:30 Intake & Output 02/16/19 02/17/19 02/17/19 23:59 11:59 23:59 Intake Total 1735.833 / 1160.803 9909.000 / 2590.000 450 / 2590.000 Output Total 750 / 750 750 / 750 Balance 985.833 / 899.806 7841.000 / 1840.000 450 / 1840.000 Weight 110.677 kg 112 kg Intake: IV 1495.833 / 8943.164 8304.000 / 1350.000 Oral 240 / 240 790 / 1240 450 / 1240 Output: Urine 750 / 750 750 / 750 Other: Urine Color Yellow Pale Yellow Urine Appearance Clear Clear Urine Odor Normal Comment voids independently to urinal per PT Stool Size Small Voiding Methods Urinal Urinal Laboratory Results WBC 15.94 k/cumm (4.4-10.8) H 02/17/19 06:25 RBC 3.91 m/cumm (4.50-6.00) L 02/17/19 06:25 Hgb 11.4 g/dL (13.5-17.5) L 02/17/19 06:25 Hct 36.0 % (40.0-50.0) L 02/17/19 06:25 MCV 92.1 fL (80-95) 02/17/19 06:25 MCH 29.2 pg (27.0-33.0) 02/17/19 06:25 MCHC 31.7 g/dL (32.0-36.0) L 02/17/19 06:25 RDW 16.9 % (11.8-14.1) H 02/17/19 06:25 Plt Count 329 x1000/uL (130-400) 02/17/19 06:25 MPV 10.1 fL (8.0-11.0) 02/17/19 06:25 Immature Gran % 0.0 02/17/19 06:25 Neutrophils % 76.0 02/17/19 06:25 Band Neutrophils % 2.0 % 02/17/19 06:25 Lymphocytes % 9.0 02/17/19 06:25 Monocytes % 6.0 02/17/19 06:25 Eosinophils % 4.0 02/17/19 06:25 Basophils % 1.0 02/17/19 06:25 Metamyelocytes % 1.0 % 02/17/19 06:25 Myelocytes % 1.0 % 02/17/19 06:25 Absolute Neutrophils 12.43 k/cumm (1.2-6.7) H 02/17/19 06:25 Absolute Lymphocytes 1.43 k/cumm (1.2-3.4) 02/17/19 06:25 Absolute Monocytes 0.96 k/cumm (0.11-0.7) H 02/17/19 06:25 Absolute Eosinophils 0.64 k/cumm (0.0-0.7) 02/17/19 06:25 Absolute Basophils 0.16 k/cumm (0.0-0.2) 02/17/19 06:25 Nucleated RBCs 1 /100WBC 02/16/19 13:25 Differential Comment Manual differential 02/17/19 06:25 RBC Morphology See below 02/17/19 06:25 Polychromasia Present 02/17/19 06:25 Poikilocytosis 2+ 02/17/19 06:25 PT 18.1 sec (9.3-11.0) H 02/17/19 06:25 INR 1.8 (0.9-1.1) H 02/17/19 06:25 Sodium 142 mmol/L (136-145) 02/17/19 06:25 Potassium 3.8 mmol/L (3.5-5.1) 02/17/19 06:25 Chloride 106 mmol/L (98-107) 02/17/19 06:25 Carbon Dioxide 27.5 mmol/L (21.0-32.0) 02/17/19 06:25 Anion Gap 8.5 mmol/L (3-11) 02/17/19 06:25 BUN 30 mg/dL (7-18) H 02/17/19 06:25 Creatinine 1.09 mg/dL (0.70-1.30) 02/17/19 06:25 Estimated GFR/1.73 m2 >= 60.00 (mL/min/1.73m2) 02/17/19 06:25 Glucose 177 mg/dL (74-106) H 02/17/19 06:25 Lactate 2.3 mmol/L (0.6-1.4) H* 02/16/19 13:25 Calcium 9.1 mg/dL (8.5-10.1) 02/17/19 06:25 Total Bilirubin 0.2 mg/dL (0.2-1.0) 02/17/19 06:25 AST 7 U/L (15-37) L 02/17/19 06:25 ALT 8 U/L (16-63) L 02/17/19 06:25 Alkaline Phosphatase 65 U/L (46-116) 02/17/19 06:25 Total Protein 7.2 g/dL (6.4-8.2) 02/17/19 06:25 Albumin 2.5 g/dL (3.4-5.0) L 02/17/19 06:25 Objective Narrative Objective Narrative: Blood cultures came back strep pneumo. The wound culture is growing a corynebacterium.
[2019-02-17] MEDS: Warfarin 5 MG TAB PO (20:28)
[2019-02-17] MEDS: Melatonin 3 MG TAB 6 MG PO (21:43)
[2019-02-17] MEDS: Insulin Glargine 300 UNITS/3 ML PEN 35 UNITS SC (21:44)
[2019-02-18] VITALS (40 sets, daily range): BP systolic 144–168; BP diastolic 72–98; PULSE 55–101; RESP 12–27; TEMP 36.4–37.1; O2SAT 93–96
--- NOTE | 2019-02-18 | W.PM.PROGNOT ---
Date of Service Date of service: 02/18/19 Time of Service: 00:00 Subjective Subjective Interval history since last seen: Patient's heart rate dipped down to 2 beats over 6 seconds at heart rate of 20 beats/min. Last night his heart rate dipped down in to 30's. The patient was asleep. When awoken, the heart rate promptly went back up to 80's. He does endorse snoring. We discussed a serious possibility of obstructive sleep apnea and I did offer Mr Alegre to wear CPAP/BiPAP, which he politely refused. He is on lopressor 50 mg PO BID which I will change to daily and place holding parameters. I do not feel that further cardiac workup is indicated with this history other than telemetry monitoring. Continuous pulse ox ordered and patient was warned that, every time we see low heart rates, we will wake him up. He is in agreement with this plan. Objective Objective Clinical Data: Abnormal lab results 02/17/19 02/17/19 02/17/19 Range/Units 06:25 06:25 06:25 WBC 15.94 H (4.4-10.8) k/cumm RBC 3.91 L (4.50-6.00) m/cumm Hgb 11.4 L (13.5-17.5) g/dL Hct 36.0 L (40.0-50.0) % MCHC 31.7 L (32.0-36.0) g/dL RDW 16.9 H (11.8-14.1) % Absolute Neutrophils 12.43 H (1.2-6.7) k/cumm Absolute Monocytes 0.96 H (0.11-0.7) k/cumm PT 18.1 H (9.3-11.0) sec INR 1.8 H (0.9-1.1) BUN 30 H (7-18) mg/dL Glucose 177 H (74-106) mg/dL AST 7 L (15-37) U/L ALT 8 L (16-63) U/L Albumin 2.5 L (3.4-5.0) g/dL Vital Signs Temperature 37.0 C 02/17/19 19:15 Temperature Source Temporal Artery Scan 02/17/19 19:15 Pulse 86 02/17/19 19:15 Pulse Rhythm Regular 02/17/19 07:57 Pulse 85 02/16/19 14:20 Respiratory Rate 20 02/17/19 19:15 Respiratory Effort Non-Labored 02/17/19 07:57 Respiratory Depth Normal 02/17/19 07:57 Respiratory Pattern Normal 02/17/19 07:57 Blood Pressure 147/84 H 02/17/19 19:15 Blood Pressure Mean 93 02/16/19 14:15 Blood Pressure Position Sitting 02/16/19 12:32 Pulse Oximetry 94 L 02/17/19 19:15 Oxygen Delivery Method Room Air 02/17/19 19:15 Oxygen Flow Rate 0 02/17/19 19:15 Pain Level 0 02/17/19 19:15 Intake & Output 02/17/19 02/17/19 02/18/19 11:59 23:59 11:59 Intake Total 2140.000 / 3690.000 1550 / 3690.000 Output Total 750 / 750 Balance 1390.000 / 2940.000 1550 / 2940.000 Weight 112 kg Intake: IV 1350.000 / 2450.000 1100 / 2450.000 Oral 790 / 1240 450 / 1240 Output: Urine 750 / 750 Other: Urine Color Pale Yellow Urine Appearance Clear Comment per PT Stool Size Small Voiding Methods Urinal Laboratory Results WBC 15.94 k/cumm (4.4-10.8) H 02/17/19 06:25 RBC 3.91 m/cumm (4.50-6.00) L 02/17/19 06:25 Hgb 11.4 g/dL (13.5-17.5) L 02/17/19 06:25 Hct 36.0 % (40.0-50.0) L 02/17/19 06:25 MCV 92.1 fL (80-95) 02/17/19 06:25 MCH 29.2 pg (27.0-33.0) 02/17/19 06:25 MCHC 31.7 g/dL (32.0-36.0) L 02/17/19 06:25 RDW 16.9 % (11.8-14.1) H 02/17/19 06:25 Plt Count 329 x1000/uL (130-400) 02/17/19 06:25 MPV 10.1 fL (8.0-11.0) 02/17/19 06:25 Immature Gran % 0.0 02/17/19 06:25 Neutrophils % 76.0 02/17/19 06:25 Band Neutrophils % 2.0 % 02/17/19 06:25 Lymphocytes % 9.0 02/17/19 06:25 Monocytes % 6.0 02/17/19 06:25 Eosinophils % 4.0 02/17/19 06:25 Basophils % 1.0 02/17/19 06:25 Metamyelocytes % 1.0 % 02/17/19 06:25 Myelocytes % 1.0 % 02/17/19 06:25 Absolute Neutrophils 12.43 k/cumm (1.2-6.7) H 02/17/19 06:25 Absolute Lymphocytes 1.43 k/cumm (1.2-3.4) 02/17/19 06:25 Absolute Monocytes 0.96 k/cumm (0.11-0.7) H 02/17/19 06:25 Absolute Eosinophils 0.64 k/cumm (0.0-0.7) 02/17/19 06:25 Absolute Basophils 0.16 k/cumm (0.0-0.2) 02/17/19 06:25 Nucleated RBCs 1 /100WBC 02/16/19 13:25 Differential Comment Manual differential 02/17/19 06:25 RBC Morphology See below 02/17/19 06:25 Polychromasia Present 02/17/19 06:25 Poikilocytosis 2+ 02/17/19 06:25 PT 18.1 sec (9.3-11.0) H 02/17/19 06:25 INR 1.8 (0.9-1.1) H 02/17/19 06:25 Sodium 142 mmol/L (136-145) 02/17/19 06:25 Potassium 3.8 mmol/L (3.5-5.1) 02/17/19 06:25 Chloride 106 mmol/L (98-107) 02/17/19 06:25 Carbon Dioxide 27.5 mmol/L (21.0-32.0) 02/17/19 06:25 Anion Gap 8.5 mmol/L (3-11) 02/17/19 06:25 BUN 30 mg/dL (7-18) H 02/17/19 06:25 Creatinine 1.09 mg/dL (0.70-1.30) 02/17/19 06:25 Estimated GFR/1.73 m2 >= 60.00 (mL/min/1.73m2) 02/17/19 06:25 Glucose 177 mg/dL (74-106) H 02/17/19 06:25 Lactate 2.3 mmol/L (0.6-1.4) H* 02/16/19 13:25 Calcium 9.1 mg/dL (8.5-10.1) 02/17/19 06:25 Total Bilirubin 0.2 mg/dL (0.2-1.0) 02/17/19 06:25 AST 7 U/L (15-37) L 02/17/19 06:25 ALT 8 U/L (16-63) L 02/17/19 06:25 Alkaline Phosphatase 65 U/L (46-116) 02/17/19 06:25 Total Protein 7.2 g/dL (6.4-8.2) 02/17/19 06:25 Albumin 2.5 g/dL (3.4-5.0) L 02/17/19 06:25
[2019-02-18] MEDS: Lactated Ringers 1,000 ML 125 ML IV ×2 (01:48→10:39)
[2019-02-18] MEDS: CEFEPIME 2 GM in Normal Saline 100 ML IVPB ×2 (01:48→14:37)
--- NOTE | 2019-02-18 06:31 | W.PM.PROGNOT ---
Date of Service Date of service: 02/18/19 Time of Service: 06:31 Subjective Subjective Interval history since last seen: According to nursing, the patient had to be woken up multiple times throughout the night for HR going down to 20's. He also had several pauses, one of them 4.5 sec. ICU nurse reports that the patient did complain of chest pressure. Troponins are pending. Per EKG report given to me by nursing, it was sinus bradycardia, no prolonged [place] interval, no ischemia. At one point, there was a suspicion that this was happening while the patient was awake; however, when an aide was placed in the room to observe the patient closer to help figure this out, the patient never dipped down (and likely stayed awake the whole time). This remains unconfirmed. He continues to refuse CPAP/BiPAP and threatens to leave AMA if the continuous pulse ox is not d/c'ed; however, agrees to the ICU. There has not been change of status per se, but because there is an uncertainty as to whether or not these episodes always happen when he is asleep, monitoring in the ICU is indicated. Also, I have completely stopped beta blockers. My impression at this time remains that the bradycardia is a product of untreated sleep apnea. Objective Objective Clinical Data: Abnormal lab results 02/17/19 02/17/19 02/17/19 Range/Units 06:25 06:25 06:25 WBC 15.94 H (4.4-10.8) k/cumm RBC 3.91 L (4.50-6.00) m/cumm Hgb 11.4 L (13.5-17.5) g/dL Hct 36.0 L (40.0-50.0) % MCHC 31.7 L (32.0-36.0) g/dL RDW 16.9 H (11.8-14.1) % Absolute Neutrophils 12.43 H (1.2-6.7) k/cumm Absolute Monocytes 0.96 H (0.11-0.7) k/cumm PT 18.1 H (9.3-11.0) sec INR 1.8 H (0.9-1.1) BUN 30 H (7-18) mg/dL Glucose 177 H (74-106) mg/dL AST 7 L (15-37) U/L ALT 8 L (16-63) U/L Albumin 2.5 L (3.4-5.0) g/dL Vital Signs Temperature 36.6 C 02/18/19 03:20 Temperature Source Tympanic 02/18/19 03:20 Pulse 78 02/18/19 03:20 Pulse Rhythm Regular 02/17/19 20:30 Pulse 85 02/16/19 14:20 Respiratory Rate 18 02/18/19 03:20 Respiratory Effort Non-Labored 02/17/19 20:30 Respiratory Depth Normal 02/17/19 20:30 Respiratory Pattern Normal 02/17/19 20:30 Blood Pressure 163/98 H 02/18/19 03:20 Blood Pressure Mean 93 02/16/19 14:15 Blood Pressure Position Sitting 02/16/19 12:32 Pulse Oximetry 95 02/18/19 03:20 Oxygen Delivery Method Room Air 02/18/19 03:20 Oxygen Flow Rate 0 02/18/19 03:20 Pain Level 0 02/18/19 03:20 Intake & Output 02/17/19 02/17/19 02/18/19 11:59 23:59 11:59 Intake Total 2140.000 / 3690.000 1550 / 3690.000 1054.167 / 1054.167 Output Total 750 / 750 450 / 450 Balance 1390.000 / 2940.000 1550 / 2940.000 604.167 / 604.167 Weight 112 kg Intake: IV 1350.000 / 2450.000 1100 / 2450.000 1054.167 / 1054.167 Oral 790 / 1240 450 / 1240 Output: Urine 750 / 750 450 / 450 Other: Urine Color Pale Straw Yellow Urine Appearance Clear Clear Clear Comment per PT Stool Size Small Voiding Methods Urinal Urinal Laboratory Results WBC 15.94 k/cumm (4.4-10.8) H 02/17/19 06:25 RBC 3.91 m/cumm (4.50-6.00) L 02/17/19 06:25 Hgb 11.4 g/dL (13.5-17.5) L 02/17/19 06:25 Hct 36.0 % (40.0-50.0) L 02/17/19 06:25 MCV 92.1 fL (80-95) 02/17/19 06:25 MCH 29.2 pg (27.0-33.0) 02/17/19 06:25 MCHC 31.7 g/dL (32.0-36.0) L 02/17/19 06:25 RDW 16.9 % (11.8-14.1) H 02/17/19 06:25 Plt Count 329 x1000/uL (130-400) 02/17/19 06:25 MPV 10.1 fL (8.0-11.0) 02/17/19 06:25 Immature Gran % 0.0 02/17/19 06:25 Neutrophils % 76.0 02/17/19 06:25 Band Neutrophils % 2.0 % 02/17/19 06:25 Lymphocytes % 9.0 02/17/19 06:25 Monocytes % 6.0 02/17/19 06:25 Eosinophils % 4.0 02/17/19 06:25 Basophils % 1.0 02/17/19 06:25 Metamyelocytes % 1.0 % 02/17/19 06:25 Myelocytes % 1.0 % 02/17/19 06:25 Absolute Neutrophils 12.43 k/cumm (1.2-6.7) H 02/17/19 06:25 Absolute Lymphocytes 1.43 k/cumm (1.2-3.4) 02/17/19 06:25 Absolute Monocytes 0.96 k/cumm (0.11-0.7) H 02/17/19 06:25 Absolute Eosinophils 0.64 k/cumm (0.0-0.7) 02/17/19 06:25 Absolute Basophils 0.16 k/cumm (0.0-0.2) 02/17/19 06:25 Nucleated RBCs 1 /100WBC 02/16/19 13:25 Differential Comment Manual differential 02/17/19 06:25 RBC Morphology See below 02/17/19 06:25 Polychromasia Present 02/17/19 06:25 Poikilocytosis 2+ 02/17/19 06:25 PT 18.1 sec (9.3-11.0) H 02/17/19 06:25 INR 1.8 (0.9-1.1) H 02/17/19 06:25 Sodium 142 mmol/L (136-145) 02/17/19 06:25 Potassium 3.8 mmol/L (3.5-5.1) 02/17/19 06:25 Chloride 106 mmol/L (98-107) 02/17/19 06:25 Carbon Dioxide 27.5 mmol/L (21.0-32.0) 02/17/19 06:25 Anion Gap 8.5 mmol/L (3-11) 02/17/19 06:25 BUN 30 mg/dL (7-18) H 02/17/19 06:25 Creatinine 1.09 mg/dL (0.70-1.30) 02/17/19 06:25 Estimated GFR/1.73 m2 >= 60.00 (mL/min/1.73m2) 02/17/19 06:25 Glucose 177 mg/dL (74-106) H 02/17/19 06:25 Lactate 2.3 mmol/L (0.6-1.4) H* 02/16/19 13:25 Calcium 9.1 mg/dL (8.5-10.1) 02/17/19 06:25 Total Bilirubin 0.2 mg/dL (0.2-1.0) 02/17/19 06:25 AST 7 U/L (15-37) L 02/17/19 06:25 ALT 8 U/L (16-63) L 02/17/19 06:25 Alkaline Phosphatase 65 U/L (46-116) 02/17/19 06:25 Total Protein 7.2 g/dL (6.4-8.2) 02/17/19 06:25 Albumin 2.5 g/dL (3.4-5.0) L 02/17/19 06:25
--- NOTE | 2019-02-18 07:26 | OT.INNT ---
Date of service: 02/18/19 Time of Service: 07:15 Occupational Therapy Notes 02/18/19 OT attempted to see pt who was awake and in his bed this morning. Pt states that he is weak and that the infection and pneumonia have wiped him out. Pts (R) UE which OT has worked with pt in the outpatient setting has a significant decline in AROM at this time. OT assesses pts (B) cad cam programmer strength which is weak and pt was remarkably fatigued post assessed of just cad cam programmer strength. Pt states that he is so tired and that he just wants to feel better. Per nursing pt is transitioning to the ICU in a couple minute. OT will hold on pts assessment and consult as pt is having a decline in medical status. OT will need a new referral if MD feels that pt is still appropriate for skilled OT services at this time. Renetta Wells, OTR/[facility]
--- NOTE | 2019-02-18 08:50 | NUR.NOTE ---
APPROX 2350 CAME OUT OF ANOTHER PT'S ROOM TO FIND DR WANG AND OTHER NURSES IN PT'S ROOM. HR HAD DIPPED DOWN TO 20s. BELIEVES IT IS APNEA R/T AND ORDER CONTINUOUS CO2/SAO2 MONITOR. PT WAS PLACED ON MONITOR WHICH ALARMED FREQ FOR HR GOING TO 30s AND 20s. CALLED MD TO LET HER KNOW THIS AND THAT HE HAD A 4.5 SECOND PAUSE AND THAT HR DECREASING HAD BEEN HAPPENING FREQ. OTHER VS STABLE AND PT WAKES READILY. UNCERTAIN IF HAPPENS ONLY WHEN PT FALLS ASLEEP. PT WANTED MONITOR OFF AND THREATENED TO GO AMA UNLESS IT WAS TAKEN OFF. THIS NURSE AND OTHERS TRIED TO EXPLAIN WHY MONITOR WAS NECESSARY AND THAT IF HR WENT INTO 20s AND DID NOT COME BACK UP PT COULD . CALLED WITH THIS INFO. ASKED THAT WE CHECK WITH PT TO SEE IF HE WOULD EXCEPT A MASK OR BIPAP. PT REFUSED. ASKED THAT SOMEONE SIT WITH THE PT TO SEE IF DECREASES IN HR DECREASES WERE HAPPENING ONLY WHEN PT WAS ASLEEP. THIS WAS DONE. HR DURING TIME STORAGE BATTERY CHARGER SAT WITH PT WENT DOWN TO 40s ONCE WHILE PT WAS AWAKE. ALSO HAD THIS NURSE CHECK WITH PT TO SEE IF HE WOULD ACCEPT GOING TO ICU FOR MONITORING. PT DID AGREE TO THIS. ALSO, DID D/C METOPROLOL. IT WAS 0526 WHEN ASKED THAT WE APPROACH PT ABOUT USING A MASK OR BIPAP. ON PHONE WITH BACK AND FORTH T/O NOC. EKG ORDERED AND DONE, ALSO. PT WENT TO ICU ON DAY SHIFT. rsing Note:
--- NOTE | 2019-02-18 09:00 | DI.US_ITS ---
APPROVED REPORT EXAM: Comprehensive 2D, Doppler, and color-flow Echocardiogram Patient Location: In-Patient Grain Farmworker: Wendy Myers RDCS (AE) Rhythm: NSR Indications: bioprosthetic Aortic valve/ bacteremia Conclusion Left Ventricle : The left ventricle is normal size. Mild left ventricular hypertrophy. The left ventr icular systolic function is normal. The left ventricular ejection fraction is within the normal range . There is normal LV segmental wall motion. Diastolic function is indeterminate. LVEF is estimated to be 55-60%. Right Ventricle : Right ventricle is dilated. The right ventricular systolic function appears low nor mal. Atria : Left atrium is mildly dilated. Right atrium is mildly dilated. Aortic Valve : There is a bioprosthetic valve in the aortic position. There is no evidence of parava lvular leak. No aortic regurgitation is present. There is mild aortic stenosis (21 mmHg) There are no obvious vegetations. Mitral Valve : Mitral valve leaflets are mildly thickened. Mild mitral regurgitation. No evidence of mitral valve stenosis. Tricuspid Valve : The tricuspid valve is normal in structure. Trivial tricuspid regurgitation. Great Vessels : The IVC is normal in size and appears to collapses >50% with inspiration. Estimated RVSP is 32-41 mmHg. There is no evidence of mobile mass to suggest endocarditis. If suspicion remains high given clinica l scenario, would suggest ERIC. Paired to echocardiogram from [facility] 4 months ago, the aortic valve gradi ent has increased slightly from 18 mmHg to 21 mmHg. Wall motion Left Ventricle The left ventricle is normal size. The left ventricular systolic function is normal. The left ventric ular ejection fraction is within the normal range. Mild left ventricular hypertrophy. There is normal LV segmental wall motion. Diastolic function is indeterminate. LVEF is estimated to be 55-60%. Right Ventricle Right ventricle is dilated. The right ventricular systolic function appears low normal. Atria Left atrium is mildly dilated. Right atrium is mildly dilated. Aortic Valve There is a bioprosthetic valve in the aortic position. There is no evidence of paravalvular leak. The re is mild aortic stenosis (21 mmHg) No aortic regurgitation is present. There are no obvious vegetat ions. Mitral Valve Mitral valve leaflets are mildly thickened. No evidence of mitral valve stenosis. Mild mitral regurgi tation. Tricuspid Valve The tricuspid valve is normal in structure. Trivial tricuspid regurgitation. Pulmonic Valve Pulmonic valve is not well visualized. Trace pulmonic regurgitation. Great Vessels The aortic root is normal in size. The ascending aorta is normal in size. The IVC is normal in size a nd appears to collapses >50% with inspiration. Estimated RVSP is 32-41 mmHg. Pericardium There is no pericardial effusion. 2D Dimensions IVSd 1.30 cm M: 0.6-1.2 LV EDV A2C 107.50 mL PWd 1.30 cm M: 0.6 - 1.2 LV EDV A4C 146.30 mL LVDd 5.50 cm M: 4.2 - 5.8 LA Volume Index A4C 37.27 mL/m2 LVDs 3.65 cm M: 2.5 - 4.0 LA Area A4C 24.87 cm2 RA Area A4C 24.44 cm2 EF AP4 60.08 % LVOT 1.95 cm (M/F) 1.5-2.5 EF AP2 50.05 % Ascending Aorta 3.40 cm M: 2.6 - 3.4 EF BP 51.27 % LVEF (Teich) 62.39 % LVEF (Rivera's) 51.27 % M: 52 - 72 LV Volume 90.96 mL M: 62 - 150 LV Volume Index 39.54 mL/m2 M: 34 - 74 FS 34.05 % LV Diastology E/A Ratio 1.4 MED E' 0.12 (>0.07 m/s) LV E/e MED 8.65 (<14) LAT E' 0.14 (>0.1 m/s) LV E/e LAT 7.50 (<14) Aortic Valve LVOT Area 3.12 cm2 LVOT Vmax 1.04 m/s LVOT Mean Daniel. 0.77 m/s LVOT Peak Gr. 4.3 mmHg LVOT Mean Gr. 2.6 mmHg AoV Area/ BSA (Vmax) 0.48 cm2/m2 LVOT VTI 0.200 m AoV Vmax 2.96 (0.5-1.3 m/s) SHIRA Mean Daniel. Index 0.47 cm2/m2 AoV Mean Daniel. 2.20 m/s AoV Peak Grad 35.0 mmHg AoV Mean Grad 21.2 (<5 mmHg) AoV VTI 0.610 (0.18-0.25 m) AoV Area VTI 1.12 (2.5-4.5 cm2) AoV Area/ BSA (VTI) 0.48 cm/m2 Mitral Valve MV E Max Daniel. 1.06 (0.4-1.3 m/s) MV A Velocity 0.75 (0.4-1.3 m/s) E/A Ratio 1.35 MV Decel. Time 186.60 (160-240 msec) MV PHT 54.12 msec MVA PHT 4.05 cm2 Pulmonary Valve PV Peak Velocity 1.06 (0.5-1.5 m/s) RVOT Peak Gr. 2.64 mmHg RVOT Peak Daniel. 0.81 m/s RVOT Mean Gr. 1.25 mmHg RVOT VTI 0.15 m Tricuspid Valve TR P. Velocity 2.87 m/s TV Regurg Vmax 2.87 m/s RAP Estimate 8.00 mmHg RVSP 41.00 mmHg TR P. Gradient 32.90 mmHg
[2019-02-18] MEDS: Pantoprazole 40 MG TABCR PO (09:37)
[2019-02-18] MEDS: Docusate Sodium 100 MG CAP PO ×2 (09:38→19:43)
[2019-02-18] MEDS: Ferrous Gluconate 324 MG TAB PO ×2 (09:38→19:42)
[2019-02-18] MEDS: Gabapentin 300 MG CAP PO ×3 (09:38→19:42)
[2019-02-18] MEDS: DULoxetine 30 MG CAP PO (09:38)
[2019-02-18] MEDS: Aspirin 81 MG CHEW PO (09:38)
[2019-02-18] MEDS: Insulin Aspart 300 UNITS/3 ML PEN SC ×2 (09:39→12:01)
[2019-02-18] MEDS: Lisinopril 20 MG TAB 10 MG PO (09:39)
[2019-02-18] MEDS: levETIRAcetam 500 MG TAB PO ×2 (09:39→19:43)
[2019-02-18 10:23] LABS: INR 2.2 (0.9-1.1); Prothrombin Time 22.1 sec (9.3-11.0)
[2019-02-18 10:23] LABS: BUN 26 mg/dL (7-18); C-Reactive Protein 4.66 mg/dL (0.0-0.3); CREATININE 0.98 mg/dL (0.70-1.30); Chloride 107 mmol/L (98-107); Glucose 166 mg/dL (74-106); Magnesium 1.7 mg/dL (1.8-2.4); Potassium 3.7 mmol/L (3.5-5.1); Sodium 145 mmol/L (136-145)
--- NOTE | 2019-02-18 10:26 | CCONE_ITS ---
Date of service: 02/18/19 Time of Service: 10:26 Assessment and Plan Assessment and plan (1) H/O aortic valve replacement: Status: Acute Assessment and plan: 1. 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 Echocardiogram in September 2018 showed a bioprosthetic valve with a gradient of 16 mmHg. Echocardiogram today shows no evidence of endocarditis and LV dimensions have improved to back within the normal range.. ?Continue warfarin for treatment of recent DVT ?Continue aspirin ?Would consider ID consult with those following him from prior bacteremia at [facility]. 2. Sinus pauses on telemetry. In cases of severe endocarditis one can sometimes see damage to the conduction system though I did not believe this is the case at this time. These pauses are more likely associated with sleep apnea and/or concomitant beta-betty use. I agree with holding the beta-betty at this time. ?Would trial patient on CPAP overnight. ?Should pauses not resolve with cessation of beta-betty and treatment of sleep apnea, he might benefit from a pacemaker though he is currently fighting an active infection so he would not be a candidate at this time. ?Continue to follow on telemetry. Thank you for this consult, please contact cardiology with any further questi ons. (2) Sinus pause: Status: Acute History of Present Illness History of Present Illness Chief Complaint: Bacteremia Narrative: Mr. Alegre is a 53-year-old male with past medical history significant for bioprosthetic aortic valve replacement, DVT, and recently diagnosed strep pneumoniae bacteremia. 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 He developed severe aortic regurgitation and subsequently received a bioprosthetic aortic valve down at [facility]. He also has a history of left ankle osteomyelitis for which he was treated with long-term IV antibiotics. Those antibiotics were recently stopped just a few weeks ago. He was initially admitted earlier this week but left AMA after getting blood cultures drawn and having antibiotics empirically started. He was subsequently diagnosed with a lower lobe pneumonia as well as strep pneumonia bacteremia. He was then called back to the hospital once these blood cultures were found to be positive. Last night he was found on telemetry to have 4-5-second pauses while sleeping. It was suspected that these were due to apneic episodes but in any case, he had his beta-betty stopped as well. Cardiology has been consulted both for the pauses overnight as well as concern for endocarditis. Patient currently states that he is feeling a little bit better. He has a cough but is otherwise not short of breath. He does not think he is ever been told he has sleep apnea and is not very interested in wearing a CPAP machine. He says since trying the antibiotics he has not noted any additional fevers or rigors. He says he is never had any chest pain or lightheadedness. He does not think he has been holding onto any fluid or have any increased lower extremity edema. 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 GERD (gastroesophageal reflux disease) (Inactive) HCAP (healthcare-associated pneumonia) (Inactive) 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) (Acute) Hepatitis C (Chronic) HTN (hypertension) (Chronic) Hx of deep venous thrombosis (Inactive) on Coumadin MSSA (methicillin susceptible Staphylococcus aureus) septicemia (Acute) Opiate dependence (Chronic) managed on suboxone Right rotator cuff tear (Inactive) Splenic abscess (Inactive) Tinea corporis (Inactive) Surgical History H/O aortic valve replacement (Acute) [place] [facility] [place] - Magna Ease 25 mm History of ankle surgery (Acute) S/P hardware removal (Inactive) L ankle. S/P percutaneous endoscopic gastrostomy (PEG) tube placement (Acute) S/P spinal surgery (Acute) Family History Father Heart disease in his 50's. Mother COPD (chronic obstructive pulmonary disease) Social History Smoking/Tobacco Use Status: Current every day Tobacco Type: cigarettes Alcohol Intake: never Drug use: Current Sobriety Caregiver/Support person: Yes Household members: spouse current occupation: Disabled Current gender identity: male Do you feel safe in your relationship?: Yes Exam Const General: comfortable and no acute distress HENMT Head: normocephalic and atraumatic Eyes General: appearance normal, both eyes and all related structures Resp Effort & Inspection: normal respiratory effort Auscultation: clear to auscultation bilaterally Cardio Jugular venous pressure: no JVD Palpation: normal PMI Rate: regular rate Rhythm: regular rhythm Heart Sounds: S1 normal and murmur systolic holo, soft and II/ GI Palpation: soft Auscultation: normoactive bowel sounds Skin General skin exam: no rashes or lesions noted Extrem General: no clubbing, cyanosis or edema Psych Appearance: grossly normal Results Last Vital Signs Temp 36.6 C 02/18/19 03:20 Pulse 77 02/18/19 08:15 Resp 18 02/18/19 03:20 BP 163/98 H 02/18/19 03:20 Pulse Ox 95 02/18/19 03:20 Labs Result diagrams: 02/18/19 10:30 02/18/19 09:05 Labs: Laboratory Results - last 24 hr 02/18/19 02/18/19 02:15 10:00 PT 22.1 H INR 2.2 H Troponin I Cancelled
[2019-02-18 10:30] LABS: Troponin I < 0.05 ng/Ml (<0.06)
[2019-02-18 10:40] LABS: Procalcitonin 3.2 ng/mL
[2019-02-18 10:50] LABS: Abs Immature Grans 0.04 k/cumm (0.0-0.09); Absolute Basophil Count 0.05 k/cumm (0.0-0.2); Absolute Eosinophil Count 0.59 k/cumm (0.0-0.7); Absolute Lymphocyte Count 1.24 k/cumm (1.2-3.4); Absolute Monocyte Count 0.67 k/cumm (0.11-0.7); Absolute Neutrophil Count 6.65 k/cumm (1.2-6.7); Basophils % 0.5; Eosinophils % 6.4; HGB 11.5 g/dL (13.5-17.5); Immature Grans % 0.4; Lymphocytes % 13.4; Mean Corp. HGB Concentration 31.9 g/dL (32.0-36.0); Mean Corpuscular Volume 90.7 fL (80-95); Mean Platelet Volume 9.4 fL (8.0-11.0); Monocytes % 7.3; Platelet Count 323 x1000/uL (130-400); RBC 3.97 m/cumm (4.50-6.00); RBC Distribution Width 16.5 % (11.8-14.1); White Blood Cell Count 9.24 k/cumm (4.4-10.8)
--- NOTE | 2019-02-18 13:02 | W.NUTCONSULT ---
Date of service: 02/18/19 Time of Service: 13:02 Nutritional Consult ASSESSMENT: 53 year old male admitted with sinus pause, lactic acidosis, sepsis baceteremia with left lower lobe PNA. Dm Consult pending. BMI indicates class 1 obesity. Meds include insulin. Following regular diet.
--- NOTE | 2019-02-18 15:51 | IN_ITS ---
Date of service: 02/18/19 Time of Service: 15:06 PT Notes Visit Reasons: BACTEREMIA/ANKLE OSTEOMYELITIS Physical Therapy Inpatient Initial Evaluation Date: 02/01/2019 Referring Doctor: Mio Johansen MD PT Orders: PT CONSULT: Limited ability. CVA, dysarthria, limited ambulation. Precautions: Fall. Standard. Activity as tolerated. Patient Profile/Admitting Diagnosis: Patient is a 53-year-old male with dysarthria who is status post left ankle ORIF hardware removal on 12/20/2018 who presented to the ED on 02/16/2019 due to increasing drainage from his left ankle wound and associated left lower lobe pneumonia. Patient is a known IV drug user who has been clean and sober since May of this year. He is S/P ankle fracture fixation at [facility] [place] [place] in April 2018; on July 2018 had bacteremia/sepsis diagnosed at [facility]. Patient is also S/P AVR in August 2018 at [facility] [place] [place]. Patient left AMA on 02/16/2019 but was called back into the hospital due to the presence of gram- positive cocci in his blood cultures. Patient is diagnosed with sepsis, left ankle wound, left fibular osteomyelitis, lower extremity DVT, sinus pauses, and HCAP. Referral to physical therapy was resent in order to address decline in functional mobility, activity tolerance, and strength in anticipation of return to home with . 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 GERD (gastroesophageal reflux disease) (Inactive) HCAP (healthcare-associated pneumonia) (Inactive) 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) (Acute) Hepatitis C (Chronic) HTN (hypertension) (Chronic) Hx of deep venous thrombosis (Inactive) on Coumadin MSSA (methicillin susceptible Staphylococcus aureus) septicemia (Acute) Opiate dependence (Chronic) managed on suboxone Right rotator cuff tear (Inactive) Splenic abscess (Inactive) Tinea corporis (Inactive) Surgical History H/O aortic valve replacement (Acute) Pericardial aortic valve at [facility] [place] [place] - 08/21/2018 - Magna Ease 25 mm History of ankle surgery (Acute) S/P hardware removal (Inactive) L ankle S/P percutaneous endoscopic gastrostomy (PEG) tube placement (Acute) S/P spinal surgery (Acute) Social History/Home Situation: Patient lives with in a mobile home in [place], [place] with 4 steps to enter with a rail on the right side going up. He did say that he now has a ramp that he uses to get in and out of the house. Patient came out of previous incarceration in 2007. works full-time and along with daughter Xochitl provides needed assistance with patient's ADL performance at home. Mio states that he has home home health nurse who comes in regularly to manage his wound. Equipment Owned/DME: Hospital bed, FWW, bedside commode, shower chair, hand-held shower, grab bars, regular wheelchair Subjective: Patient is agreeable to PT consult. He says that he. He feels a lot better today than he did yesterday. He does not complain of any pain in bilateral lower extremities. He denies headache, chest pain, and dizziness throughout PT session. He states that his and his daughter has been very helpful for him while at home. Objective: General Observation: Patient seen resting in bed upon arrival of PT. Telemetry monitoring in place. IV in left UE. Wound dressing over lateral left leg. Mental Status: Alert and oriented x4 Pain: 0/10 Vital Signs: Heart rate ranged from 9090 bpm through 107 bpm throughout gait activity. Blood pressure after gait activity was 150/90 2 mmHg. HR after gait activity was 86 bpm. SaO2 was 94% on room air after gait activity. ROM: Right Upper Extremity: Shoulder Flexion allows up to 90 degrees . Shoulder abduction allows up to 90 degrees. Elbow flexion WFL. Wrist flexion WFL. Opening and closing of hand WFL. Left Upper Extremity: Shoulder Flexion WFL. Shoulder abduction WFL. Elbow flexion WFL. Wrist flexion WFL. Opening and closing of hand WFL. Right Lower Extremity: Hip flexion WFL. Hip abduction WFL. Knee flexion WFL. Ankle dorsiflexion from fully plantarflexed position to neutral only. Ankle plantarflexion WFL. Left Lower Extremity: Hip flexion WFL. Hip abduction WFL. Knee flexion WFL. Ankle dorsiflexionfrom fully plantarflexed position to neutral only. Ankle plantarflexion WFL. Strength: Right Upper Extremity: Shoulder flexors 3-/5. Shoulder abductors 3-/5. Elbow fle xors 4/5. Elbow extensors 4/5. Crayon Grader strong. Left Upper Extremity: Shoulder flexors 5/5. Shoulder abductors 5/5. Elbow flexors 5/5. Elbow extensors 5/5. Crayon Grader weak but functional. Right Lower Extremity: Hip flexors 4/5. Hip abductors 5/5. Knee flexors 5/5. Knee extensors 4/5. Ankle dorsiflexors 3-/5. Ankle plantarflexors 5/5. Left Lower Extremity:Hip flexors 5/5. Hip abductors 5/5. Knee flexors 5/5. Knee extensors 5/5. Ankle dorsiflexors 5/5. Ankle plantarflexors 5/5. Sensation: Intact as to pain and pressure on bilateral lower extremities. Bed Mobility/Transfers: Rolling supervision Supine to sit supervision Sit to supine supervision Sit to stand SBA Stand to sit SBA Bed to chair SBA Chair to bed SBA Gait: Patient tolerated level surface ambulation of 120 feet with front wheeled walker using FWB requiring only SBA from PT without complaints of any pain in bilateral upper and lower extremities using step to gait pattern with asymmetric step length (step length decreased on the right side). Patient denies headache, chest pain, dizziness throughout gait activity. Balance: Static Sitting: Normal Dynamic Sitting: Normal Static Standing: Fair Dynamic Standing: Fair Special Tests: Mobility Limitations Standardized Measure [facility] AM-PAC 6 clicks Basic Mobility Inpatient Short Form: Raw Score: 21 CMS Score: 29% deficit Informed Consent/Education: Patient instructed in purpose of PT consult and plan of care. Assessment: Patient is a 53-year-old male who is status post left ankle ORIF hardware removal on 12/20/2018 who presented to the ED on 02/16/2019 due to increasing drainage from his left ankle wound and associated left lower lobe pneumonia. Patient is diagnosed with sepsis, left ankle wound, left fibular osteomyelitis, lower extremity DVT, sinus pauses, and HCAP now presenting with impairment level findings and functional limitations as listed below necessitating skilled physical therapy services. Patient presents with clinical signs and symptoms consistent with current/admitting diagnoses that have resulted to mobility limitations, gait instability, generalized weakness, and impairment of motor control as demonstra arley by the following impairment level findings: 1. Decreased strength to R UE/LE major muscle groups 2. Impaired standing balance 3. Impaired activity tolerance 4. Limitation of joint range of motion in right shoulder due to previous stroke Impairments are contributing to the following functional limitations: 1. Inability to safely ambulate without assistive device and physical assistance 2. Increase completion time for mobility ADL performance 3. Increased fall risk 4. Inability to negotiate steps alone safely Patient is assessed as a 84025 moderate complexity complexity based on the following: History: 53-year-old male with past medical history, impairment level findings, functional limitations, and a [place] CMS deficit score of 29% as indicated above Examination: Demonstrable impairment in strength, balance, and range of motion with underlying impairments and functional limitations as documented above Presentation: Evolving Decision Makin moderate complexity Goals: Goals X1 week 1. Supine-Sit independent 2. Sit-Supine independent 3. Sit-Stand independent 4. Stand-Sit independent 5. Bed-Chair independent 6. Chair-Bed independent 7. Independent gait on level surface with use of least restrictive device for at least 300 feet without report of pain nor dyspnea 8. Independent with home exercise program 9. Good static and dynamic standing balance/tolerance Plan of Care/Treatment Plan: 1-2x/day, 7 days/week x 1 week. Plan of care has been reviewed with the TRAIN GATE ATTENDANT providing the service under Physical Therapy direction. Initiate Physical Therapy intervention for strengthening, bed mobility, transfers, gait, stairs, balance training, use of assistive device. DISCHARGE RECOMMENDATIONS: Patient will benefit from home health PT services in order to progress mobility level using least restrictive assistive ambulatory device, assess home safety, identify additional equipment needs, and establish a functional maintenance program that will increase ability of patient to remain at home. TREATMENT CODE/TIME: 56479 x 34 minutes beginning at 15:06 PM. Thank you very much for this referral. Zunilda Zapata PT, DPT, CLT [facility] [place], [place]
--- NOTE | 2019-02-18 19:22 | W.PM.PROGNOT ---
Date of Service Date of service: 02/18/19 Time of Service: 19:22 Assessment and Plan Assessment and plan (1) Streptococcus pneumoniae infection: Status: Acute Assessment and plan: Blood cultures positive for strep pneumoniae. He is on IV cefepime, he is penicillin allergic. Thus far tolerating the cefepime just fine. He appears to be improving clinically. At this point I am recommending 7 days of IV antibiotics given he was bacteremic and has an artificial valve. We probably should check with infectious disease at [facility] regarding bacteremia in the setting of his aortic valve replacement. (2) Sinus pause: Status: Acute Assessment and plan: He had a 4.5-second sinus pause. The beta-betty has been stopped. The question of whether this could be related to endocarditis has been raised. Continue to monitor on telemetry for any further pauses. We will try treating his obstructive sleep apnea, prevent nocturnal hypoxia, prevent apneic episodes. We will see if this has an impact on his bradycardia. (3) H/O aortic valve replacement: Status: Acute Assessment and plan: Echocardiogram today was reassuring that the valve is functioning well. There is no evidence that there is active endocarditis. He has had no further fevers. I do not think he needs a transesophageal echocardiogram at this time. He has an Bah 3300 TF X valve. (4) HCAP (healthcare-associated pneumonia): Status: Acute Assessment and plan: Left lower lobe pneumonia likely the cause of the strep pneumoniae bacteremia. He seems to be doing fine from a respiratory point of view. Continue the cefepime. (5) Opiate dependence: Status: Chronic Assessment and plan: Continues on Suboxone therapy. No signs of withdrawal or cravings. (6) DVT, lower extremity: Status: Acute Assessment and plan: INR is now therapeutic. Will resume his usual outpatient dose of warfarin, 5 mg alternating with 2.5 mg. Subjective Subjective Interval history since last seen: Patient got moved to the ICU overnight because of apnea and bradycardia. He did not seem worried about this until he was told that his heart actually stop beating for 4.5 seconds. This evening he is willing to wear CPAP though he only tolerated 5 cm of water pressure. He is having no chest pain no shortness of breath. Moderate cough productive of greenish sputum. He is not had any fevers. His oxygen saturation is been good at 95% on room air. He had an echocardiogram and cardiology consult today. Exam Narrative Exam Narrative: On exam he did not appear in any distress. He is friendly and cooperative. His speech is still quite dysarthric but the content is coherent. His lung exam is generally clear. I do not hear specific rales in that left base. His heart sounds are regular, I do not appreciate any significant murmur. His abdomen is overall soft and nontender. Lower extremities no significant edema. Objective Objective Clinical Data: Abnormal lab results 02/18/19 02/18/19 02/18/19 Range/Units 02:15 09:05 10:30 RBC 3.97 L (4.50-6.00) m/cumm Hgb 11.5 L (13.5-17.5) g/dL Hct 36.0 L (40.0-50.0) % MCHC 31.9 L (32.0-36.0) g/dL RDW 16.5 H (11.8-14.1) % PT 22.1 H (9.3-11.0) sec INR 2.2 H (0.9-1.1) BUN 26 H (7-18) mg/dL Glucose 166 H (74-106) mg/dL Magnesium 1.7 L (1.8-2.4) mg/dL C-Reactive Protein 4.66 H (0.0-0.3) mg/dL Vital Signs Temperature 36.6 C 02/18/19 17:00 Temperature Source Temporal Artery Scan 02/18/19 12:06 Pulse 68 02/18/19 17:05 Pulse Rhythm Regular 02/18/19 05:00 Pulse 100 H 02/18/19 17:50 Respiratory Rate 27 H 02/18/19 17:50 Respiratory Effort Non-Labored 02/18/19 17:00 Respiratory Depth Normal 02/18/19 17:00 Respiratory Pattern Normal 02/18/19 17:00 Blood Pressure 151/88 H 02/18/19 17:05 Blood Pressure Mean 104 02/18/19 17:05 Blood Pressure Position Supine 02/18/19 08:20 Pulse Oximetry 94 L 02/18/19 15:36 Oxygen Delivery Method Room Air 02/18/19 17:00 Oxygen Flow Rate 0 02/18/19 17:00 Fraction of Inspired Oxygen (FIO2) 21 02/18/19 16:23 Pain Level 0 02/18/19 17:00 Comment 02/17/19 23:50 Intake & Output 02/17/19 02/18/19 02/18/19 23:59 11:59 23:59 Intake Total 1550 / 3690.000 2054.167 / 2904.167 850 / 2904.167 Output Total 300 / 1050 1100 / 2100 1000 / 2100 Balance 1250 / 2640.000 954.167 / 804.167 -150 / 804.167 Intake: IV 1100 / 2450.000 2054.167 / 2054.167 Oral 450 / 1240 850 / 850 Output: Urine 300 / 1050 1100 / 2100 1000 / 2100 Other: Urine Color Yellow Pale Yellow Yellow Straw Urine Appearance Clear Clear Clear Urine Odor None None Normal Comment Voiding to urinal clear pale yellow urine. Voiding Methods Urinal Urinal Urinal Laboratory Results WBC 9.24 k/cumm (4.4-10.8) 02/18/19 10:30 RBC 3.97 m/cumm (4.50-6.00) L 02/18/19 10:30 Hgb 11.5 g/dL (13.5-17.5) L 02/18/19 10:30 Hct 36.0 % (40.0-50.0) L 02/18/19 10:30 MCV 90.7 fL (80-95) 02/18/19 10:30 MCH 29.0 pg (27.0-33.0) 02/18/19 10:30 MCHC 31.9 g/dL (32.0-36.0) L 02/18/19 10:30 RDW 16.5 % (11.8-14.1) H 02/18/19 10:30 Plt Count 323 x1000/uL (130-400) 02/18/19 10:30 MPV 9.4 fL (8.0-11.0) 02/18/19 10:30 Immature Gran % 0.4 02/18/19 10:30 Neutrophils % 72.0 02/18/19 10:30 Band Neutrophils % 2.0 % 02/17/19 06:25 Lymphocytes % 13.4 02/18/19 10:30 Monocytes % 7.3 02/18/19 10:30 Eosinophils % 6.4 02/18/19 10:30 Basophils % 0.5 02/18/19 10:30 Metamyelocytes % 1.0 % 02/17/19 06:25 Myelocytes % 1.0 % 02/17/19 06:25 Absolute Neutrophils 6.65 k/cumm (1.2-6.7) 02/18/19 10:30 Absolute Lymphocytes 1.24 k/cumm (1.2-3.4) 02/18/19 10:30 Absolute Monocytes 0.67 k/cumm (0.11-0.7) 02/18/19 10:30 Absolute Eosinophils 0.59 k/cumm (0.0-0.7) 02/18/19 10:30 Absolute Basophils 0.05 k/cumm (0.0-0.2) 02/18/19 10:30 Nucleated RBCs 1 /100WBC 02/16/19 13:25 Differential Comment Manual differential 02/17/19 06:25 RBC Morphology See below 02/17/19 06:25 Polychromasia Present 02/17/19 06:25 Poikilocytosis 2+ 02/17/19 06:25 PT 22.1 sec (9.3-11.0) H 02/18/19 02:15 INR 2.2 (0.9-1.1) H 02/18/19 02:15 Sodium 145 mmol/L (136-145) 02/18/19 09:05 Potassium 3.7 mmol/L (3.5-5.1) 02/18/19 09:05 Chloride 107 mmol/L (98-107) 02/18/19 09:05 Carbon Dioxide 29.0 mmol/L (21.0-32.0) 02/18/19 09:05 Anion Gap 9.0 mmol/L (3-11) 02/18/19 09:05 BUN 26 mg/dL (7-18) H 02/18/19 09:05 Creatinine 0.98 mg/dL (0.70-1.30) 02/18/19 09:05 Estimated GFR/1.73 m2 >= 60.00 (mL/min/1.73m2) 02/18/19 09:05 Glucose 166 mg/dL (74-106) H 02/18/19 09:05 Lactate 2.3 mmol/L (0.6-1.4) H* 02/16/19 13:25 Calcium 9.0 mg/dL (8.5-10.1) 02/18/19 09:05 Magnesium 1.7 mg/dL (1.8-2.4) L 02/18/19 09:05 Total Bilirubin 0.2 mg/dL (0.2-1.0) 02/17/19 06:25 AST 7 U/L (15-37) L 02/17/19 06:25 ALT 8 U/L (16-63) L 02/17/19 06:25 Alkaline Phosphatase 65 U/L (46-116) 02/17/19 06:25 Troponin I Cancelled 02/18/19 10:00 C-Reactive Protein 4.66 mg/dL (0.0-0.3) H 02/18/19 09:05 Total Protein 7.2 g/dL (6.4-8.2) 02/17/19 06:25 Albumin 2.5 g/dL (3.4-5.0) L 02/17/19 06:25 Procalcitonin 3.2 ng/mL 02/18/19 09:05
--- NOTE | 2019-02-18 21:00 | CMPROGNOTE_ITS ---
- If Service Date Differs Date of service: 02/18/19 Time of Service: 21:00 Care Management Progress Note S/O: Mio was sitting up in bed when CM met with him. He was transferred to the ICU this morning because of bradycardia and apnea. He was pleasant and cooperative and willing to engage in conversation. He shared that he had some hardware removed from his leg that became infected and received 6 weeks of IV antibiotics at home from the end of November through the middle of January. He h ad a PICC line that was removed at the completion of therapy. Mio is scheduled to have an Echocardiogram today to rule out endocarditis. A: Mio is a 53b yeaqr old man admitted on 02/16/19 with bacteremia and pneumonia. P: Mio may need another prolonged course of IV antibiotics, depending on the outcome of his testing. He will follow up with his PCP and discharge plan of care. CM will continue to support patient, family and discharge planning needs.
[2019-02-18] MEDS: Melatonin 3 MG TAB 6 MG PO (21:03)
[2019-02-18] MEDS: Insulin Glargine 300 UNITS/3 ML PEN 35 UNITS SC (21:03)
[2019-02-19] VITALS (12 sets, daily range): BP systolic 143–166; BP diastolic 69–92; PULSE 50–112; RESP 17–23; TEMP 36.8–37.4; O2SAT 90–94
[2019-02-19] MEDS: CEFEPIME 2 GM in Normal Saline 100 ML IVPB ×2 (02:07→14:39)
[2019-02-19 07:43] LABS: Abs Immature Grans 0.06 k/cumm (0.0-0.09); Absolute Basophil Count 0.04 k/cumm (0.0-0.2); Absolute Eosinophil Count 0.49 k/cumm (0.0-0.7); Absolute Lymphocyte Count 1.54 k/cumm (1.2-3.4); Absolute Monocyte Count 0.87 k/cumm (0.11-0.7); Absolute Neutrophil Count 6.21 k/cumm (1.2-6.7); Basophils % 0.4; Eosinophils % 5.3; HCT 37.3 % (40.0-50.0); Immature Grans % 0.7; Lymphocytes % 16.7; Mean Corp. HGB Concentration 32.2 g/dL (32.0-36.0); Mean Corpuscular Hemoglobin 29.1 pg (27.0-33.0); Mean Corpuscular Volume 90.5 fL (80-95); Mean Platelet Volume 9.3 fL (8.0-11.0); Monocytes % 9.4; Neutrophils % 67.5; Platelet Count 342 x1000/uL (130-400); RBC 4.12 m/cumm (4.50-6.00); RBC Distribution Width 16.5 % (11.8-14.1); White Blood Cell Count 9.21 k/cumm (4.4-10.8)
[2019-02-19] MEDS: Mometasone 220 MCG 14 DOSE INHALER IH ×2 (08:08→20:42)
[2019-02-19] MEDS: Furosemide 20 MG TAB PO (08:28)
[2019-02-19] MEDS: levETIRAcetam 500 MG TAB PO ×2 (08:28→20:41)
[2019-02-19] MEDS: Lisinopril 20 MG TAB 10 MG PO (08:28)
[2019-02-19] MEDS: Docusate Sodium 100 MG CAP PO ×2 (08:29→20:41)
[2019-02-19] MEDS: Gabapentin 300 MG CAP PO ×3 (08:29→20:41)
[2019-02-19] MEDS: Aspirin 81 MG CHEW PO (08:29)
[2019-02-19] MEDS: Ferrous Gluconate 324 MG TAB PO ×2 (08:29→20:41)
[2019-02-19] MEDS: DULoxetine 30 MG CAP PO (08:29)
[2019-02-19] MEDS: Pantoprazole 40 MG TABCR PO (08:29)
[2019-02-19] MEDS: Insulin Aspart 300 UNITS/3 ML PEN SC ×3 (08:38→17:20)
--- NOTE | 2019-02-19 10:26 | PT.INTREAT ---
Date of service: 02/19/19 Time of Service: 09:52 PT Notes Visit Reasons: BACTEREMIA/ANKLE OSTEOMYELITIS Inpatient Physical Therapy Treatment Note [facility] Date: 02/19/2019 PRECAUTIONS: Fall. Standard. Activity as tolerated. SUBJECTIVE: Patient reports feeling significantly better today. states she canceled the [facility] appointment scheduled couple of weeks from now as she states Mio will be seeing Dr. Carlson from here. OBJECTIVE: Telemetry monitoring continues to be in place. PAIN: 0/10 BED MOBILITY/TRANSFERS Rolling L/R: Supervision Supine-sit: Supervision Sit-supine: Supervision Sit-stand: Supervision Stand-sit: Supervision Bed-Chair: Supervision Chair-bed: Supervision GAIT Assistive Device: Front wheeled walker Weight bearing: FWB Assist: SBA Distance: 120 feet +20 feet Deviation: Step to gait pattern. Asymmetric at length. Heart rate ranged from 94 bpm to 117 bpm. Minimally breathless after gait activity. THEREX: Patient tolerated standing level balance exercises--heel raises, partial knee bends, high marches, x 10 without undue difficulty. ASSESSMENT: Patient will continue to benefit from skilled therapy services in order to achieve initially established goals. PLAN: Per nurse, Mio may transfer to the [facility] unit this afternoon with continued telemetry monitoring TREATMENT CODE/TIME: 91861 x15 minutes, 58576 x 18 minutes beginning at 9:52 AM.
--- NOTE | 2019-02-19 11:54 | NUR.NOTE ---
Nursing Note: 02/19/19 pt out of ICU room 222 to MS room 217. Pt ambulated with walker and SBG, gait steady. VSS
--- NOTE | 2019-02-19 12:54 | PDOC.CMPRO ---
- If Service Date Differs Date of service: 02/19/19 Time of Service: 12:54 Care Management Progress Note S/O: Mio is alert and engaged he states that he is feeling much better. He plans to return home with his SO Arline at time of discharge. Mio is being treated with IV abx, his WBC has improved over the last 48 hours. Mio is being transferred to the medical surgical floor today. A: Mio is a 53 year old male admitted with bradycardia, pneumonia and bacteremia. P Mio will be discharged home when medically ready, Mio has choices for care highest needs and he does report caregivers in the home, his residential case manager is Riya Bonner at [facility] [phone], CM called and left a voicemail. Mio will have resumption of RN for wound care. He will follow up with Ortho and his PCP, as recommended. Arline will drive him home when ready. CM will continue to follow and support discharge planning considerations.
--- NOTE | 2019-02-19 14:14 | PT.INTREAT ---
Date of service: 02/19/19 Time of Service: 14:14 PT Notes Visit Reasons: BACTEREMIA/ANKLE OSTEOMYELITIS Inpatient Physical Therapy Treatment Note [facility] Date: 02/19/2019 afternoon session PRECAUTIONS: Fall. Standard. Activity as tolerated. SUBJECTIVE: Patient agreed to participate in afternoon session. No new complaints received. OBJECTIVE: Telemetry monitoring continues to be in place. PAIN: 0/10 BED MOBILITY/TRANSFERS Rolling L/R: Supervision Supine-sit: Supervision Sit-supine: Supervision Sit-stand: Supervision Stand-sit: Supervision Bed-Chair: Supervision Chair-bed: Supervision GAIT Assistive Device: Front-wheeled walker Weight bearing: FWB Assist: SBA Distance: 150 feet + 50 feet Deviation: Step to gait pattern. Asymmetric at length. Heart rate ranged from 86 bpm to 111 bpm. Minimally breathless after gait activity. No complaints of discomfort. STAIRS: Patient negotiated six 4 inch steps and four 6 inch steps while holding onto bilateral rails with step to gait pattern requiring CGA of PT and minimal verbal cues for safe technique. ASSESSMENT: Patient will continue to benefit from skilled therapy services in order to achieve initially established goals. PLAN: Continue with PT POC to achieve initially established goals. TREATMENT CODE/TIME: 32864 x 15 minutes, 68727 x 13 minutes beginning at 14:14 PM.
[2019-02-19 14:29] LABS: Anion Gap 10.3 mmol/L (3-11); BUN 17 mg/dL (7-18); CO2 27.7 mmol/L (21.0-32.0); CREATININE 0.87 mg/dL (0.70-1.30); Calcium 9.2 mg/dL (8.5-10.1); Chloride 105 mmol/L (98-107); Glucose 165 mg/dL (74-106); Potassium 3.7 mmol/L (3.5-5.1); Sodium 143 mmol/L (136-145)
--- NOTE | 2019-02-19 16:43 | W.PM.PROGNOT ---
Date of Service Date of service: 02/19/19 Time of Service: 07:43 Assessment and Plan Assessment and plan (1) Streptococcus pneumoniae infection: Status: Acute Assessment and plan: Clinically improving. Temp down. Daytime oxygen requirements down. Possible transition to oral antibiotics within 24 hours. Continue to monitor temperature curve and any other signs of another source of infection. (2) Wound of left ankle: Status: Acute Assessment and plan: Scant discharge, reassuring external appearance. If exam remains the same and he remains afebrile I am not going to pursue MRI looking for osteomyelitis/abscess. 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 (4) Depression: Status: Chronic Assessment and plan: Has not had significant exacerbation with this hospitalization. Continue outpatient medications. (5) Sinus pause: Status: Acute Assessment and plan: Again a 2.4-second pause without symptoms and a brief abnormality on telemetry raising possibility of second-degree heart block. Continue to monitor telemetry and withhold beta-betty. (6) Diabetes mellitus: Status: Chronic Assessment and plan: Blood sugars are coming down with current insulin regimen, continue same and monitor. Metformin remains on hold. (7) Hypertension: Status: Chronic Assessment and plan: Blood pressures trending up since beta-betty discontinued. Monitor and possibly push lisinopril dose higher depending upon blood pressures overnight. (8) Opiate dependence: Status: Chronic Assessment and plan: Stable on Suboxone, no dose change planned. (9) DVT, lower extremity: Status: Acute Assessment and plan: INR therapeutic on current dose of warfarin. (10) Hepatitis C: Status: Chronic Assessment and plan: Need to investigate, possibly through pharmacy inquiry, how long he was on treatment for this. Subjective Subjective Interval history since last seen: Feeling better. Did not tolerate CPAP, thought it was too drying. Telemetry showed sinus arrhythmia, pause of 2.4 seconds and a brief episode of possible type II second-degree AV block. No symptoms during this time. No relationship to when he was not wearing CPAP. His oxygen levels overnight remained above 90% despite absence of CPAP support. Still has a little bit of a cough. Temperature has normalized. Denies chest pain abdominal pain or dysuria. I spoke with infectious disease at [facility], Dr. Ralph, who does not think further evaluation for endocarditis is indicated and would treat as community-acquired invasive pneumococcal infection, transitioning from IV antibiotics to oral when clinical parameters suggest response to treatment. He has found records that treatment for hepatitis C was initiated sometime within the past 6 to 8 weeks. It is not clear from outpatient records whether or not he has been compliant with treatment. Exam Narrative Exam Narrative: No acute distress in bed. Dysarthric. Temperature 36.8 blood pressures have been in the 150s over upper 80s. Heart rate 70-90. Cannot see neck veins well because of neck size. Lungs have diminished breath sounds in the left lower lung field with some faint expiratory wheezing. 1/6 low pitched systolic ejection murmur right upper sternal border. Abdomen is obese soft with active bowel sounds. Left lower extremity from his incision which is intact and without any erythema continues to have a scant amount of serous drainage at the superior and lower third of the incision. No induration no tenderness. Good pulses in both feet. He had compression wraps on both legs, no pitting edema present now. Objective Objective Clinical Data: Abnormal lab results 02/19/19 02/19/19 02/19/19 Range/Units 07:25 07:25 07:25 RBC 4.12 L (4.50-6.00) m/cumm Hgb 12.0 L (13.5-17.5) g/dL Hct 37.3 L (40.0-50.0) % RDW 16.5 H (11.8-14.1) % Absolute Monocytes 0.87 H (0.11-0.7) k/cumm PT 20.0 H (9.3-11.0) sec INR 2.0 H (0.9-1.1) Glucose 165 H (74-106) mg/dL Vital Signs Temperature 36.9 C 02/19/19 09:00 Temperature Source Temporal Artery Scan 02/19/19 09:00 Pulse 96 H 02/19/19 15:05 Pulse Rhythm Regular 02/19/19 15:58 Pulse 88 02/19/19 07:11 Respiratory Rate 18 02/19/19 11:33 Respiratory Effort Non-Labored 02/19/19 15:58 Respiratory Depth Normal 02/19/19 15:58 Respiratory Pattern Normal 02/19/19 15:58 Blood Pressure 156/81 H 02/19/19 11:33 Blood Pressure Mean 109 02/19/19 09:25 Blood Pressure Position Sitting 02/19/19 09:00 Pulse Oximetry 93 L 02/19/19 11:33 Oxygen Delivery Method Room Air 02/19/19 11:33 Oxygen Flow Rate 0 02/19/19 11:33 Fraction of Inspired Oxygen (FIO2) 21 02/19/19 08:18 Pain Level 0 02/19/19 09:00 Comment 02/17/19 23:50 Intake & Output 02/18/19 02/19/19 02/19/19 23:59 11:59 23:59 Intake Total 1190 / 3244.167 540 / 540 Output Total 1450 / 2550 1635 / 1835 200 / 1835 Balance -260 / 694.167 -1095 / -1295 -200 / -1295 Intake: IV 100 / 2154.167 100 / 100 Oral 1090 / 1090 440 / 440 Output: Urine 1450 / 2550 1635 / 1835 200 / 1835 Other: Urine Color Yellow Yellow Yellow Urine Appearance Clear Clear Clear Urine Odor Strong Normal None Comment Voiding to urinal. Patient voids in urinal PRN. Voiding Methods Urinal Urinal Urinal Laboratory Results WBC 9.21 k/cumm (4.4-10.8) 02/19/19 07:25 RBC 4.12 m/cumm (4.50-6.00) L 02/19/19 07:25 Hgb 12.0 g/dL (13.5-17.5) L 02/19/19 07:25 Hct 37.3 % (40.0-50.0) L 02/19/19 07:25 MCV 90.5 fL (80-95) 02/19/19 07:25 MCH 29.1 pg (27.0-33.0) 02/19/19 07:25 MCHC 32.2 g/dL (32.0-36.0) 02/19/19 07:25 RDW 16.5 % (11.8-14.1) H 02/19/19 07:25 Plt Count 342 x1000/uL (130-400) 02/19/19 07:25 MPV 9.3 fL (8.0-11.0) 02/19/19 07:25 Immature Gran % 0.7 02/19/19 07:25 Neutrophils % 67.5 02/19/19 07:25 Band Neutrophils % 2.0 % 02/17/19 06:25 Lymphocytes % 16.7 02/19/19 07:25 Monocytes % 9.4 02/19/19 07:25 Eosinophils % 5.3 02/19/19 07:25 Basophils % 0.4 02/19/19 07:25 Metamyelocytes % 1.0 % 02/17/19 06:25 Myelocytes % 1.0 % 02/17/19 06:25 Absolute Neutrophils 6.21 k/cumm (1.2-6.7) 02/19/19 07:25 Absolute Lymphocytes 1.54 k/cumm (1.2-3.4) 02/19/19 07:25 Absolute Monocytes 0.87 k/cumm (0.11-0.7) H 02/19/19 07:25 Absolute Eosinophils 0.49 k/cumm (0.0-0.7) 02/19/19 07:25 Absolute Basophils 0.04 k/cumm (0.0-0.2) 02/19/19 07:25 Nucleated RBCs 1 /100WBC 02/16/19 13:25 Differential Comment Manual differential 02/17/19 06:25 RBC Morphology See below 02/17/19 06:25 Polychromasia Present 02/17/19 06:25 Poikilocytosis 2+ 02/17/19 06:25 PT 20.0 sec (9.3-11.0) H 02/19/19 07:25 INR 2.0 (0.9-1.1) H 02/19/19 07:25 Sodium 143 mmol/L (136-145) 02/19/19 07:25 Potassium 3.7 mmol/L (3.5-5.1) 02/19/19 07:25 Chloride 105 mmol/L (98-107) 02/19/19 07:25 Carbon Dioxide 27.7 mmol/L (21.0-32.0) 02/19/19 07:25 Anion Gap 10.3 mmol/L (3-11) 02/19/19 07:25 BUN 17 mg/dL (7-18) D 02/19/19 07:25 Creatinine 0.87 mg/dL (0.70-1.30) 02/19/19 07:25 Estimated GFR/1.73 m2 >= 60.00 (mL/min/1.73m2) 02/19/19 07:25 Glucose 165 mg/dL (74-106) H 02/19/19 07:25 Lactate 2.3 mmol/L (0.6-1.4) H* 02/16/19 13:25 Calcium 9.2 mg/dL (8.5-10.1) 02/19/19 07:25 Magnesium 1.7 mg/dL (1.8-2.4) L 02/18/19 09:05 Total Bilirubin 0.2 mg/dL (0.2-1.0) 02/17/19 06:25 AST 7 U/L (15-37) L 02/17/19 06:25 ALT 8 U/L (16-63) L 02/17/19 06:25 Alkaline Phosphatase 65 U/L (46-116) 02/17/19 06:25 Troponin I Cancelled 02/18/19 10:00 C-Reactive Protein 4.66 mg/dL (0.0-0.3) H 02/18/19 09:05 Total Protein 7.2 g/dL (6.4-8.2) 02/17/19 06:25 Albumin 2.5 g/dL (3.4-5.0) L 02/17/19 06:25 Procalcitonin 3.2 ng/mL 02/18/19 09:05
[2019-02-19] MEDS: Warfarin 5 MG TAB PO (20:41)
[2019-02-19] MEDS: Insulin Glargine 300 UNITS/3 ML PEN 35 UNITS SC (22:23)
[2019-02-19] MEDS: Melatonin 3 MG TAB 6 MG PO (22:24)
[2019-02-20] VITALS (11 sets, daily range): BP systolic 133–167; BP diastolic 74–99; PULSE 76–111; RESP 17–19; TEMP 36.3–37.5; O2SAT 92–95
[2019-02-20] MEDS: CEFEPIME 2 GM in Normal Saline 100 ML IVPB ×2 (01:45→14:56)
[2019-02-20] MEDS: Normal Saline Flush 10 ML SYR IVP ×3 (01:46→16:39)
[2019-02-20] MEDS: Pantoprazole 40 MG TABCR PO (07:29)
[2019-02-20 07:43] LABS: INR 1.9 (0.9-1.1); Prothrombin Time 19.1 sec (9.3-11.0)
[2019-02-20] MEDS: Ferrous Gluconate 324 MG TAB PO ×2 (08:46→20:28)
[2019-02-20] MEDS: Furosemide 20 MG TAB PO (08:46)
[2019-02-20] MEDS: Gabapentin 300 MG CAP PO ×3 (08:46→20:27)
[2019-02-20] MEDS: Lisinopril 20 MG TAB PO (08:46)
[2019-02-20] MEDS: Aspirin 81 MG CHEW PO (08:46)
[2019-02-20] MEDS: DULoxetine 30 MG CAP PO (08:46)
[2019-02-20] MEDS: Docusate Sodium 100 MG CAP PO ×2 (08:46→20:28)
[2019-02-20] MEDS: levETIRAcetam 500 MG TAB PO ×2 (08:46→20:28)
[2019-02-20] MEDS: Mometasone 220 MCG 14 DOSE INHALER IH ×2 (09:34→20:29)
--- NOTE | 2019-02-20 10:09 | W.PM.PROGNOT ---
Date of Service Date of service: 02/20/19 Time of Service: 10:11 Assessment and Plan Assessment and plan (1) Wound of left ankle: Status: Acute Assessment and plan: Mio continues to do well. He does not have any increase in pain about the left ankle. He also does not have any significant signs of infection about the wound. He does have a chronic wound which is not that uncommon given the situation of surgery in the setting of infection, chronic edema, and diabetes. I do not think his current bacteremia represents a recurrence of the osteomyelitis, although it is possible. However, with very minimal symptoms about the left leg I would not repeat any MRI as it is likely to be abnormal given the recent hardware removal and documented bone infection. I would let symptoms be the guide. I would encourage daily wound care along with compression of the leg to decrease edema. I expect this will continue to heal in a secondary fashion. I can see him back in the office in another 2 weeks. I do not think it needs any more acute follow-up until then. Qualifiers: Encounter type: initial encounter Qualified Code(s): S91.002A - Unspecified open wound, left ankle, initial encounter Subjective Subjective Interval history since last seen: Mio is doing well. He denies any increase in pain. He denies any fevers or chills. He feels his lungs are doing better as well. He has had no notable drainage from the wound. Exam Extrem Other: Edema is much improved. There is some scant yellow drainage on the Mepilex border. The diastases appears to be improved. There is no purulence. There is no surrounding erythema. There is no pain to palpation or percussion. Objective Objective Clinical Data: Abnormal lab results 02/19/19 02/20/19 Range/Units 07:25 06:53 PT 19.1 H (9.3-11.0) sec INR 1.9 H (0.9-1.1) Glucose 165 H (74-106) mg/dL Vital Signs Temperature 36.7 C 02/20/19 07:25 Temperature Source Tympanic 02/20/19 07:25 Pulse 95 H 02/20/19 07:25 Pulse Rhythm Regular 02/20/19 04:04 Pulse 88 02/19/19 07:11 Respiratory Rate 17 02/20/19 07:25 Respiratory Effort Non-Labored 01/01/20 04:04 Respiratory Depth Normal 02/20/19 04:04 Respiratory Pattern Normal 02/20/19 04:04 Blood Pressure 165/93 H 02/20/19 07:25 Blood Pressure Mean 109 02/19/19 09:25 Blood Pressure Position Sitting 02/19/19 09:00 Pulse Oximetry 92 L 02/20/19 07:25 Oxygen Delivery Method Room Air 02/20/19 07:25 Oxygen Flow Rate 0 02/20/19 07:25 Fraction of Inspired Oxygen (FIO2) 21 02/19/19 08:18 Pain Level 0 02/20/19 07:25 Comment 02/20/19 07:25 Intake & Output 02/19/19 02/19/19 02/20/19 11:59 23:59 11:59 Intake Total 540 / 1600 1060 / 1600 440 / 440 Output Total 1635 / 1835 200 / 1835 Balance -1095 / -235 860 / -235 440 / 440 Intake: IV 100 / 200 100 / 200 200 / 200 Oral 440 / 1400 960 / 1400 240 / 240 Output: Urine 1635 / 1835 200 / 1835 Other: Urine Color Yellow Yellow Urine Appearance Clear Clear Clear Urine Odor Normal None Comment Patient voids in urinal PRN. Voiding Methods Urinal Toilet Laboratory Results WBC 9.21 k/cumm (4.4-10.8) 02/19/19 07:25 RBC 4.12 m/cumm (4.50-6.00) L 02/19/19 07:25 Hgb 12.0 g/dL (13.5-17.5) L 02/19/19 07:25 Hct 37.3 % (40.0-50.0) L 02/19/19 07:25 MCV 90.5 fL (80-95) 02/19/19 07:25 MCH 29.1 pg (27.0-33.0) 02/19/19 07:25 MCHC 32.2 g/dL (32.0-36.0) 02/19/19 07:25 RDW 16.5 % (11.8-14.1) H 02/19/19 07:25 Plt Count 342 x1000/uL (130-400) 02/19/19 07:25 MPV 9.3 fL (8.0-11.0) 02/19/19 07:25 Immature Gran % 0.7 02/19/19 07:25 Neutrophils % 67.5 02/19/19 07:25 Band Neutrophils % 2.0 % 02/17/19 06:25 Lymphocytes % 16.7 02/19/19 07:25 Monocytes % 9.4 02/19/19 07:25 Eosinophils % 5.3 02/19/19 07:25 Basophils % 0.4 02/19/19 07:25 Metamyelocytes % 1.0 % 02/17/19 06:25 Myelocytes % 1.0 % 02/17/19 06:25 Absolute Neutrophils 6.21 k/cumm (1.2-6.7) 02/19/19 07:25 Absolute Lymphocytes 1.54 k/cumm (1.2-3.4) 02/19/19 07:25 Absolute Monocytes 0.87 k/cumm (0.11-0.7) H 02/19/19 07:25 Absolute Eosinophils 0.49 k/cumm (0.0-0.7) 02/19/19 07:25 Absolute Basophils 0.04 k/cumm (0.0-0.2) 02/19/19 07:25 Nucleated RBCs 1 /100WBC 02/16/19 13:25 Differential Comment Manual differential 02/17/19 06:25 RBC Morphology See below 02/17/19 06:25 Polychromasia Present 02/17/19 06:25 Poikilocytosis 2+ 02/17/19 06:25 PT 19.1 sec (9.3-11.0) H 02/20/19 06:53 INR 1.9 (0.9-1.1) H 02/20/19 06:53 Sodium 143 mmol/L (136-145) 02/19/19 07:25 Potassium 3.7 mmol/L (3.5-5.1) 02/19/19 07:25 Chloride 105 mmol/L (98-107) 02/19/19 07:25 Carbon Dioxide 27.7 mmol/L (21.0-32.0) 02/19/19 07:25 Anion Gap 10.3 mmol/L (3-11) 02/19/19 07:25 BUN 17 mg/dL (7-18) D 02/19/19 07:25 Creatinine 0.87 mg/dL (0.70-1.30) 02/19/19 07:25 Estimated GFR/1.73 m2 >= 60.00 (mL/min/1.73m2) 02/19/19 07:25 Glucose 165 mg/dL (74-106) H 02/19/19 07:25 Lactate 2.3 mmol/L (0.6-1.4) H* 02/16/19 13:25 Calcium 9.2 mg/dL (8.5-10.1) 02/19/19 07:25 Magnesium 1.7 mg/dL (1.8-2.4) L 02/18/19 09:05 Total Bilirubin 0.2 mg/dL (0.2-1.0) 02/17/19 06:25 AST 7 U/L (15-37) L 02/17/19 06:25 ALT 8 U/L (16-63) L 02/17/19 06:25 Alkaline Phosphatase 65 U/L (46-116) 02/17/19 06:25 Troponin I Cancelled 02/18/19 10:00 C-Reactive Protein 4.66 mg/dL (0.0-0.3) H 02/18/19 09:05 Total Protein 7.2 g/dL (6.4-8.2) 02/17/19 06:25 Albumin 2.5 g/dL (3.4-5.0) L 02/17/19 06:25 Procalcitonin 3.2 ng/mL 02/18/19 09:05
--- NOTE | 2019-02-20 10:47 | CMPROGNOTE_ITS ---
Care Management Progress Note S/O: Mio continues to be closely monitored and treated. Per MD, will continued stability, Mio could discharge home as soon as tomorrow; no changes to overall discharge plan at this time. Mio is aware of his discharge plan, and advocating for leaving in the morning as this will work better for his transporter. CM continues to follow. A: Mio is a 53 year old male admitted to [facility] 02/16/19 with bradycardia, pneumonia and bacteremia. P: Mio will discharge home when medically ready, per MD. Mio has choices for care highest needs and reports home caregiver services are coordinated by his family service caseworker, Riya Bonner at [facility] [phone]. CM left VM notification for Riya of [facility] admission and discharge planning considerations. Mio will resume [facility] patient care coordinator through [facility]. He will follow up with Ortho and his PCP, as recommended. He will transport home via private vehicle with his SO; Arline. CM will continue to follow and support discharge planning considerations.
[2019-02-20] MEDS: Insulin Aspart 300 UNITS/3 ML PEN SC ×2 (11:54→17:03)
--- NOTE | 2019-02-20 11:59 | PT.INTREAT ---
Date of service: 02/20/19 Time of Service: 11:59 PT Notes Visit Reasons: BACTEREMIA/ANKLE OSTEOMYELITIS Inpatient Physical Therapy Treatment Note [facility] Date: 02/20/2019 PRECAUTIONS: Fall SUBJECTIVE: Mio reports he is feeling very well this morning, he is agreeable to participating in PT. OBJECTIVE: PAIN: No complaints of pain BED MOBILITY/TRANSFERS Sit-stand: S Stand-sit: S GAIT Assistive Device: FWW Weight bearing: Full Assist: S Distance: 300' +100' Deviation: Step through gait pattern utilized, seated rest x1 THEREX: Patient completed a LE strengthening program in a standing position, as per flow sheet. ASSESSMENT: Patient tolerated session well, tolerating a progression in gait distance with FWW support and supervision. PLAN: Continue with PTs POC TREATMENT CODE/TIME: 30 minutes; [id number], [id number]
--- NOTE | 2019-02-20 16:40 | PGE_ITS ---
Date of Service Date of service: 02/20/19 Time of Service: 16:40 Assessment and Plan Assessment and plan (1) Streptococcus pneumoniae infection: Status: Acute Assessment and plan: Respiratory status seems to have stabilized. Oxygen saturations both day and night are doing well. No cough. No congestion. Continue IV antibiotics for another 24 hours then likely transition to oral. (2) Wound of left ankle: Status: Acute Assessment and plan: Stable, I do not think this is a source of infection. Continue topical care and compression wraps. Qualifiers: Encounter type: initial encounter Qualified Code(s): S91.002A - Unspecified open wound, left ankle, initial encounter (3) Depression: Status: Chronic Assessment and plan: Has not had significant exacerbation with this hospitalization. Continue outpatient medications. (4) Sinus pause: Status: Acute Assessment and plan: Sinus bradycardia overnight but then has developed sinus tachycardia, management as below. (5) Diabetes mellitus: Status: Chronic Assessment and plan: Blood sugars are climbing. Restart metformin tomorrow. Increase Lantus tonight and monitor blood sugar response. (6) Hypertension: Status: Chronic Assessment and plan: Blood pressures continue to climb. I increase lisinopril to 20 mg and I am adding back a beta-betty using carvedilol at low- dose, monitoring for recurrence of sinus pauses or heart block. (7) Opiate dependence: Status: Chronic Assessment and plan: Stable on Suboxone, no dose change planned. (8) DVT, lower extremity: Status: Acute Assessment and plan: INR has drifted down slightly. Recheck tomorrow. No dose change tonight. (9) Hepatitis C: Status: Chronic Assessment and plan: Patient states he completed treatment about 2 weeks ago. He will need to have follow-up serology in a few months. (10) Sinus tachycardia: Status: Acute Assessment and plan: Has developed progressive sinus tachycardia through the day. This may represent beta-betty withdrawal. I am restarting a beta- betty using low-dose carvedilol and hopefully we will not run into the same problem with sinus pauses. Monitor on telemetry. (11) Obstructive sleep apnea: Status: Chronic Assessment and plan: Unclear if he has this problem and whether or not he would benefit or even tolerate CPAP. This will need to be addressed post discharge. Subjective Subjective Interval history since last seen: He had a great night, used oxygen but no CPAP. Reports oxygen saturations were fine. Denies cough chest pain or shortness of breath. Telemetry overnight has shown sinus bradycardia but no pauses or second-degree heart block. Through the day his heart rate has steadily increased with a sinus tachycardia on telemetry, definitely more pronounced when he is and moving around (or smoking a cigarette in the bathroom). Blood sugars have been trending upward. He remains afebrile. He is eager to return home as soon as possible. Exam Narrative Exam Narrative: Afebrile, looks in good spirits, no respiratory distress. Dysarthria continues with some difficulty with word finding. No JVD. Lungs have some initial coarse crackles at the left base then clear. 1/6 systolic ejection murmur right upper sternal border low pitched no diastolic murmur. Nontender abdomen. No pitting edema in the extremities. Sits up unassisted. Objective Objective Clinical Data: Abnormal lab results 02/20/19 Range/Units 06:53 PT 19.1 H (9.3-11.0) sec INR 1.9 H (0.9-1.1) Vital Signs Temperature 36.3 C L 02/20/19 15:17 Temperature Source Tympanic 02/20/19 15:17 Pulse 108 H 02/20/19 15:17 Pulse Rhythm Regular 02/20/19 15:40 Pulse 88 02/19/19 07:11 Respiratory Rate 18 02/20/19 15:17 Respiratory Effort Non-Labored 02/20/19 15:40 Respiratory Depth Normal 02/20/19 15:40 Respiratory Pattern Normal 02/20/19 15:40 Blood Pressure 167/99 H 02/20/19 15:17 Blood Pressure Mean 109 02/19/19 09:25 Blood Pressure Position Sitting 02/19/19 09:00 Pulse Oximetry 94 L 02/20/19 15:17 Oxygen Delivery Method Room Air 02/20/19 15:17 Oxygen Flow Rate 0 02/20/19 15:17 Fraction of Inspired Oxygen (FIO2) 21 02/19/19 08:18 Pain Level 0 02/20/19 11:23 Comment 02/20/19 07:25 Intake & Output 02/19/19 02/20/19 02/20/19 23:59 11:59 23:59 Intake Total 1060 / 1600 680 / 920 240 / 920 Output Total 200 / 1835 Balance 860 / -235 680 / 920 240 / 920 Intake: IV 100 / 200 200 / 200 Oral 960 / 1400 480 / 720 240 / 720 Output: Urine 200 / 1835 Other: Urine Color Yellow Urine Appearance Clear Clear Clear Urine Odor None Voiding Methods Toilet Laboratory Results WBC 9.21 k/cumm (4.4-10.8) 02/19/19 07:25 RBC 4.12 m/cumm (4.50-6.00) L 02/19/19 07:25 Hgb 12.0 g/dL (13.5-17.5) L 02/19/19 07:25 Hct 37.3 % (40.0-50.0) L 02/19/19 07:25 MCV 90.5 fL (80-95) 02/19/19 07:25 MCH 29.1 pg (27.0-33.0) 02/19/19 07:25 MCHC 32.2 g/dL (32.0-36.0) 02/19/19 07:25 RDW 16.5 % (11.8-14.1) H 02/19/19 07:25 Plt Count 342 x1000/uL (130-400) 02/19/19 07:25 MPV 9.3 fL (8.0-11.0) 02/19/19 07:25 Immature Gran % 0.7 02/19/19 07:25 Neutrophils % 67.5 02/19/19 07:25 Band Neutrophils % 2.0 % 02/17/19 06:25 Lymphocytes % 16.7 02/19/19 07:25 Monocytes % 9.4 02/19/19 07:25 Eosinophils % 5.3 02/19/19 07:25 Basophils % 0.4 02/19/19 07:25 Metamyelocytes % 1.0 % 02/17/19 06:25 Myelocytes % 1.0 % 02/17/19 06:25 Absolute Neutrophils 6.21 k/cumm (1.2-6.7) 02/19/19 07:25 Absolute Lymphocytes 1.54 k/cumm (1.2-3.4) 02/19/19 07:25 Absolute Monocytes 0.87 k/cumm (0.11-0.7) H 02/19/19 07:25 Absolute Eosinophils 0.49 k/cumm (0.0-0.7) 02/19/19 07:25 Absolute Basophils 0.04 k/cumm (0.0-0.2) 02/19/19 07:25 Nucleated RBCs 1 /100WBC 02/16/19 13:25 Differential Comment Manual differential 02/17/19 06:25 RBC Morphology See below 02/17/19 06:25 Polychromasia Present 02/17/19 06:25 Poikilocytosis 2+ 02/17/19 06:25 PT 19.1 sec (9.3-11.0) H 02/20/19 06:53 INR 1.9 (0.9-1.1) H 02/20/19 06:53 Sodium 143 mmol/L (136-145) 02/19/19 07:25 Potassium 3.7 mmol/L (3.5-5.1) 02/19/19 07:25 Chloride 105 mmol/L (98-107) 02/19/19 07:25 Carbon Dioxide 27.7 mmol/L (21.0-32.0) 02/19/19 07:25 Anion Gap 10.3 mmol/L (3-11) 02/19/19 07:25 BUN 17 mg/dL (7-18) D 02/19/19 07:25 Creatinine 0.87 mg/dL (0.70-1.30) 02/19/19 07:25 Estimated GFR/1.73 m2 >= 60.00 (mL/min/1.73m2) 02/19/19 07:25 Glucose 165 mg/dL (74-106) H 02/19/19 07:25 Lactate 2.3 mmol/L (0.6-1.4) H* 02/16/19 13:25 Calcium 9.2 mg/dL (8.5-10.1) 02/19/19 07:25 Magnesium 1.7 mg/dL (1.8-2.4) L 02/18/19 09:05 Total Bilirubin 0.2 mg/dL (0.2-1.0) 02/17/19 06:25 AST 7 U/L (15-37) L 02/17/19 06:25 ALT 8 U/L (16-63) L 02/17/19 06:25 Alkaline Phosphatase 65 U/L (46-116) 02/17/19 06:25 Troponin I Cancelled 02/18/19 10:00 C-Reactive Protein 4.66 mg/dL (0.0-0.3) H 02/18/19 09:05 Total Protein 7.2 g/dL (6.4-8.2) 02/17/19 06:25 Albumin 2.5 g/dL (3.4-5.0) L 02/17/19 06:25 Procalcitonin 3.2 ng/mL 02/18/19 09:05
[2019-02-20] MEDS: Carvedilol 3.125 MG TAB PO (17:03)
--- NOTE | 2019-02-20 17:31 | NUR.NOTE ---
Nursing Note: INSIDE TESTER's passed on concern that patient was smoking in his bathroom. I approached the patient and frankly told him that i was not going to argue with him whether or not he was smoking or not. However i pointed out to him that there are sprinklers overhead, and if one of those were to discharge. the whole second floor would have to be evacuated, and that would not be a pleasant situation. He stated that he understood
[2019-02-20] MEDS: Melatonin 3 MG TAB 6 MG PO (20:28)
[2019-02-20] MEDS: Insulin Glargine 300 UNITS/3 ML PEN 40 UNITS SC (20:34)
[2019-02-21] MEDS: Normal Saline Flush 10 ML SYR IVP (02:10)
[2019-02-21] MEDS: CEFEPIME 2 GM in Normal Saline 100 ML IVPB (02:10)
[2019-02-21 03:46] VITALS: BP 151/77; PULSE 101; RESP 19; TEMP 37.3; O2SAT 92
[2019-02-21 07:15] LABS: INR 1.7 (0.9-1.1); Prothrombin Time 16.9 sec (9.3-11.0)
[2019-02-21 07:30] VITALS: BP 150/80; PULSE 97; RESP 19; TEMP 37; O2SAT 94
[2019-02-21 07:48] VITALS: PULSE 87
[2019-02-21] MEDS: Mometasone 220 MCG 14 DOSE INHALER IH (08:07)
[2019-02-21] MEDS: DULoxetine 30 MG CAP PO (08:09)
[2019-02-21] MEDS: Gabapentin 300 MG CAP PO (08:09)
[2019-02-21] MEDS: metFORMIN C.R. 500 MG TABCR 1000 MG PO (08:09)
[2019-02-21] MEDS: Furosemide 20 MG TAB PO (08:09)
[2019-02-21] MEDS: Aspirin 81 MG CHEW PO (08:09)
[2019-02-21 08:10] VITALS: O2SAT 93
[2019-02-21] MEDS: levETIRAcetam 500 MG TAB PO (08:10)
[2019-02-21] MEDS: Lisinopril 20 MG TAB PO (08:10)
[2019-02-21] MEDS: Ferrous Gluconate 324 MG TAB PO (08:10)
[2019-02-21] MEDS: Pantoprazole 40 MG TABCR PO (08:10)
[2019-02-21] MEDS: Docusate Sodium 100 MG CAP PO (08:10)
[2019-02-21] MEDS: Insulin Aspart 300 UNITS/3 ML PEN SC ×2 (08:10→12:11)
[2019-02-21] MEDS: dilTIAZem 30 MG TAB PO (09:08)
--- NOTE | 2019-02-21 10:08 | W.INDIABCONS ---
Date of service: 02/21/19 Time of Service: 10:08 Diabetes Inpatient Consult DESCRIPTION/ASSESSMENT: Appreciate diabetes consult for Mr. Alegre who is hospitalized with pneumonia, sepsis, s/p stroke, and recent osteomylitis. A1c 11.9 over a year ago; no current A1c and he does not recall what it is now. BMI 34 Blood sugars this hospitalization up to 390mg/dl at admission now mostly in the 100s taking 40u Lantus and moderate insulin correction. Visited with Mr. Alegre who appeared to struggle with fluent verbal communication. At home he takes 35u Lantus and insulin correction scale generally 5-7 units self reported in addition to Metformin. Mr. Albert states he has diet soda and rarely sugar. States he eats properly but does have cravings and occasionally has 'fat Turkish roll'. He tries to keep nuts close by in case he has those cravings. He monitors blood sugars before each meal. He does not document blood sugars or food but states his blood sugars run pretty good now. INTERVENTION: Encouraged continued healthy eating. Suggested paying attention to blood sugar impact from sweets which likely will require a higher mealtime insulin dose. He declines further self management support at this time. PLAN: Suggest A1c if not otherwise done to assess recent self management. Will follow blood sugars Will be available if he desires further discussion of diabetes Time Spent in Nutritional Counseling and Treatment: 10 minutes face to face
[2019-02-21 11:17] VITALS: BP 133/74; PULSE 105; RESP 18; TEMP 37; O2SAT 95
--- NOTE | 2019-02-21 11:17 | PT.INTREAT ---
Date of service: 02/21/19 Time of Service: 11:17 PT Notes Visit Reasons: BACTEREMIA/ANKLE OSTEOMYELITIS Inpatient Physical Therapy Treatment Note [facility] Date: 02/21/2019 PRECAUTIONS: Fall SUBJECTIVE: Mio is hopeful that he will be returning to home today, he is agreeable to participating in PT. OBJECTIVE: PAIN: No complaints of pain BED MOBILITY/TRANSFERS Supine-sit: I Sit-stand: I Stand-sit: I GAIT Assistive Device: FWW Weight bearing: Full Assist: S Distance: 300' +100' Deviation: Step through gait pattern utilized, seated rest x1 THEREX: Patient completed a LE strengthening program in a standing position, as per flow sheet. Patient was able to tolerate a progression in ther ex program, modifications made to repetitions are noted on flow sheet. STAIRS: Up/down 3x4 and 2x6 using B rails and a step-to pattern with supervision. ASSESSMENT: Patient tolerated session well, tolerating a progression in ther ex program. He demonstrates independence with transfers and bed mobility at this time. PLAN: As per primary PT TREATMENT CODE/TIME: 40 minutes; 19040 x2, 92136
--- NOTE | 2019-02-21 12:24 | DSE_ITS ---
Date of service: 02/21/19 Time of Service: 12:24 DS: Diagnosis Discharge Diagnosis (1) Streptococcus pneumoniae infection: Status: Acute Asessment and Plan: It is the discharge diagnosis of strep pneumonia with bacteremia, no evidence for endocarditis or osteomyelitis. Initially febrile with left lower lobe infiltrate on chest x-ray and blood cultures positive for strep pneumoniae, he responded well to IV Cefpodoxime, with effervescence within 24 hours and remaining afebrile thereafter. He had a steadily improving cough and clinical exam. Subsequent blood cultures were negative. Echocardiogram did not show evidence of endocarditis. His chronic left ankle wound did not show any changes to suggest infection. He was treated with 5 days of IV antibiotics and will be discharged on 2 additional days of oral antibiotics. (2) H/O aortic valve replacement: Status: Acute Asessment and Plan: Echocardiogram did not show any evidence of valve leak or endocarditis. He had no problems referrable to this during his hospitalization. (3) Wound of left ankle: Status: Acute Asessment and Plan: Slowly healing surgical wound left lower ankle after removal of hardware for osteomyelitis. He had completed 6 weeks of IV first generation cephalosporin about 2 weeks prior to his hospitalization for the strep pneumonia bacteremia. He continues to have a scant amount of discharge f rom the inferior aspect of the incision but no erythema no purulent discharge and no pain. Topical care will continue with absorptive dressing changed 3 times weekly and compression wraps. (4) Depression: Status: Chronic Asessment and Plan: Mild exacerbation of depression during this hospi talization because of repeated hospital admissions. His spirits were lifted with the news that he is being discharged. No changes were made to his outpatient dose of duloxetine. (5) Sinus pause: Status: Acute Asessment and Plan: Earlier in hospitalization was noted to be bradycardic with a sinus pause of 4.8 seconds and thought to have sleep apneic spell necessitating transfer to the unit. Metoprolol was discontinued. Over the next 24 hours continue to have sinus bradycardia with pauses up to 2.4 seconds and brief runs of second-degree heart block. He then had 24 hours with no dysrhythmias then began developing sinus tachycardia as noted below. He was given a single dose of 3.125 mg carvedilol with once again sinus bradycardia, pause of 2.4 seconds and second-degree heart block. Decision was made to discontinue all AV cy blocking drugs and discharged on a Holter monitor to get a sense of his heart rhythm out of the hospital with usual activities. (6) Sinus tachycardia: Status: Acute Asessment and Plan: After beta-blockers were discontinued, heart rate went up to as high as 150 with sinus tachycardia on telemetry. He was asymptomatic with this. It was felt this likely represents rebound from discontinuing beta- betty. Because of problems with recurrent bradycardia, pauses and heart block it was elected not to treat his sinus tachycardia, avoid AV cy blocking drugs because of the bradycardia and monitor heart rhythm with a 48-hour Holter on discharge. (7) Diabetes mellitus: Status: Chronic Asessment and Plan: His blood sugars were not well controlled during this hospitalization. His insulin glargine was increased modestly to 40 units. His metformin initially was held then restarted. Further fine-tuning of his diabetes control will be needed as an outpatient. (8) Hypertension: Status: Chronic Asessment and Plan: With the discontinuation of metoprolol his blood pressure crept up. His lisinopril dose was doubled. Further monitoring of his blood pressure and adjustment in medication or addition of medication may be needed. The choices are problematic in that beta-blockers are contraindicated, diltiazem may worsen heart block, amlodipine could worsen his ankle edema, further impairing his wound healing from his incision on the left ankle. (9) Opiate dependence: Status: Chronic Asessment and Plan: Stable on Suboxone with no changes made during this hospitalization. (10) DVT, lower extremity: Status: Acute Asessment and Plan: INR generally therapeutic during his hospitalization. However, it did drift down in the latter 2 days of his hospitalization, with an INR of 1.7 on the day of discharge. He will receive a single dose of 7.5 mg on discharge then resume his usual 5 alternating with 2.5 mg schedule with a follow-up INR early next week. (11) Hepatitis C: Status: Chronic Asessment and Plan: He informs me that he completed treatment for hep C about 2 weeks prior to this hospitalization. He will need to have follow-up hepatitis C titer performed about 3 months after completing treatment to confirm sustained viral response. (12) Obstructive sleep apnea: Status: Chronic Asessment and Plan: It is strongly suspected he has sleep apnea. He did not tolerate CPAP during his hospitalization here. It is recommended he have a sleep study as an outpatient. 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 He was admitted initially with left lower lobe pneumonia, left AGAINST MEDICAL ADVICE in less than 24 hours but returned to the hospital later that day when blood cultures were positive for gram- positive cocci. He was empirically started on vancomycin and cefepime. Blood cultures subsequently were speciated at Streptococcus pneumonia, vancomycin was discontinued and he completed a total of 5 days of parenteral antibiotics without complication. Please refer to the above diagnosis section for hospital course by problem. Notable labs?subsequent blood cultures negative. Echocardiogram with no impairment of LV function, bioprosthetic aortic valve functioning normally. No evidence of endocarditis. White blood cell count 20,000 on admission, 9021 on February 19. INR 1.7 on discharge. Changes to chronic medications?glargine insulin increased to 40 units, lisinopril increased to 20 mg, metoprolol discontinued. He will need to have follow-up INR early next week. Home Meds and New Rx's Prescriptions: New warfarin [Coumadin] 7.5 mg Tablet 7.5 mg PO QPM Qty: 1 RF: 0 lisinopril 20 mg Tablet 20 mg PO DAILY Qty: 30 RF: 5 nicotine 21 mg/24 hr Patch 24 Hour 21 mg transdermal DAILY PRN PRNQty: 30 RF: 0 Lantus Solostar U-100 Insulin 100 unit/mL (3 mL) Insulin Pen 40 units subcut HS Qty: 1 RF: 0 cefaclor 500 mg capsule 500 mg PO Q8H Qty: 6 RF: 0 Continued bisacodyl [Dulcolax (bisacodyl)] 5 mg tablet,delayed release (DR/EC) 5 mg PO ONCE Qty: 4 RF: 0 polyethylene glycol 3350 17 gram powder in packet 255 g PO DAILY Qty: 15 RF: 0 warfarin [Coumadin] 2.5 mg tablet 2.5 mg PO Q OTHER DAY RF: 0 warfarin [Coumadin] 5 mg tablet 5 mg PO Q OTHER DAY RF: 0 albuterol sulfate [Ventolin HFA] 60 PUFF HFA aerosol inhaler 2 puff Inhalation Q2H PRN PRNQty: 1 RF: 1 acetaminophen [Tylenol] 325 mg Tablet 650 mg PO Q4H PRN PRNQty: 0 RF: 0 docusate sodium [Colace] 100 mg Capsule 100 mg PO BID Qty: 0 RF: 0 buprenorphine-naloxone 2-0.5 mg Tablet, Sublingual 2 tab Sublingual BID Qty: 0 RF: 0 duloxetine [Cymbalta] 30 mg Capsule,Delayed Release(Dr/Ec) 30 mg PO DAILY Qty: 0 RF: 0 levetiracetam [Keppra] 500 mg Tablet 500 mg PO BID Qty: 0 RF: 0 magnesium hydroxide [Milk of Magnesia] 400 mg/5 mL Suspension 30 ml PO DAILY PRN PRN (Reason: Constipation) Qty: 0 RF: 0 pantoprazole 40 mg Tablet,Delayed Release (Dr/Ec) 40 mg PO DAILY@0730 Qty: 0 RF: 0 melatonin 3 mg Tablet Extended Release 6 mg PO HS Qty: 0 RF: 0 Novolog Flexpen U-100 Insulin 100 unit/mL Insulin Pen 0 units subcut 0800,1200,1700 Qty: 0 RF: 0 metformin 500 mg Tablet Extended Release 24 Hr 1,000 mg PO DAILY RF: 0 levetiracetam [Keppra] 500 mg Tablet 500 mg PO BID RF: 0 aspirin 81 mg Tablet,Chewable 81 mg PO DAILY RF: 0 ferrous gluconate 324 mg (37.5 mg iron) Tablet 324 mg PO BID RF: 0 furosemide [Lasix] 40 mg Tablet 40 mg PO DAILY RF: 0 polyethylene glycol 3350 [Miralax] 17 gram Powder In Packet 17 g PO DAILY RF: 0 acetaminophen [Tylenol Extra Strength] 500 mg Tablet 500 mg PO Q6H PRNRF: 0 gabapentin 300 mg Capsule 300 mg PO TID RF: 0 albuterol sulfate [ProAir HFA] 90 mcg/actuation Hfa Aerosol Inhaler 2 puff INHALATION Q4H PRNRF: 0 Flovent HFA 110 mcg/actuation Hfa Aerosol Inhaler 2 puff INHALATION BID RF: 0 Discontinued Lant Solostar U-100 Insulin 100 unit/mL (3 mL) Insulin Pen 35 units subcut HS Qty: 0 RF: 0 lisinopril 20 mg tablet 10 mg PO DAILY RF: 0 metoprolol tartrate 25 mg tablet 50 mg PO BID RF: 0 Discharge Instructions Instructions: Diabetes Mellitus Type 2 in Adults (DC), Community Acquired Pneumonia (DC) Additional Instructions: Tonight take 1.5 mg of warfarin then resume your previous schedule of 5 mg alternating with 2.5 mg every other day. Change the dressing on your left ankle 3 times a week. Use an Haroldo wrap for compression, put this on in the morning and take it off at nighttime, on both lower legs. Note that there has been an increase in your insulin glargine to 40 units. Your lisinopril dose has also been increased to 20 mg. Call your primary care provider or return to the hospital if you have a recurrent fever, increasing cough or shortness of breath. Stand Alone Forms: Nursing Discharge Form Referrals: Lexii Luna [ [facility] STAFF PHYSICIAN] - 02/26/19 4:00 pm Zach Sanders [Primary Care Provider] - None (This appointment has been canceled and you have been scheduled to see Misti Luna at the [facility] [[email or web address]] on 02/26/2019 at 4:00) Activity:: Activity as Tolerated Equipment/Supplies:: No Equipment Needed Diet:: Carb Counting Discharge Orders Discharge Orders: Discharge Order (Routine); Ordered 02/21/19 Ordered By: Pedro Mathur DS: Summary Status at Discharge Functional status at discharge: uses cane/walker Overall status at discharge: patient is back to baseline Mental Status: mental status grossly normal Speech and Movement: slurred speech Mood: anxious mood Affect: normal affect Time Spent with Patient providing and/or coordinating discharge services: Greater than 30 minutes Exam Narrative Exam Narrative: Anxious to be discharged, no acute physical or emotional distress. Temperature 37. Blood pressure 133/74, pulse rate in the upper 90s regular. Mild dysarthria with a bit of word finding pauses. No JVD. Lungs with rare crackle in the left lower lung field, marked improvement compared to early in hospitalization. No rub. Regular heart rhythm with low pitch 1/6 systolic ejection murmur right upper sternal border. Active bowel sounds with no abdominal tenderness. He has 1+ edema in both lower extremities. Surgical incision along the left lateral ankle nearly closed at the superior portion, inferior aspect still slightly open with a scant amount of serous drainage on the dressing. Transfers independently, ambulates with front wheeled walker. Weakness and some clumsiness right hand and right leg chronically from his CVA. Psych Mental Status: mental status grossly normal Speech and Movement: slurred speech Mood: anxious mood Affect: normal affect DS: Data Vitals/I&O Vitals and I&O: Vital Signs Temperature 37.0 C 02/21/19 11:17 Temperature Source Tympanic 02/21/19 11:17 Pulse 105 H 02/21/19 11:17 Pulse Rhythm Regular 02/21/19 08:15 Pulse 88 02/19/19 07:11 Respiratory Rate 18 02/21/19 11:17 Respiratory Effort Non-Labored 02/21/19 08:15 Respiratory Depth Normal 02/21/19 08:15 Respiratory Pattern Normal 02/21/19 08:15 Blood Pressure 133/74 02/21/19 11:17 Blood Pressure Mean 109 02/19/19 09:25 Blood Pressure Position Sitting 02/19/19 09:00 Pulse Oximetry 95 02/21/19 11:17 Oxygen Delivery Method Room Air 02/21/19 11:17 Oxygen Flow Rate 0 02/21/19 11:17 Fraction of Inspired Oxygen (FIO2) 21 02/19/19 08:18 Pain Level 0 02/21/19 11:17 Comment 02/20/19 07:25 Intake & Output 02/20/19 02/21/19 02/21/19 23:59 11:59 23:59 Intake Total 820 / 1500 1060 / 1060 Output Total 250 / 250 2049 Balance 570 / 1250 -990 / -990 Intake: IV 100 / 300 Oral 720 / 1200 1060 / 1060 Output: Urine 250 / 250 2049 Other: Urine Color Yellow Yellow Urine Appearance Clear Clear Urine Odor None Voiding Methods Urinal Urinal Data Completed and Pending Labs on day of discharge: Labs from last 24 hours 02/21/19 07:00 PT 16.9 H INR 1.7 H Preliminary micro results at discharge 02/18/19 02:15 Blood Culture - Preliminary Blood NO GROWTH 72 HOURS [facility] Medical History Aortic insufficiency (Inactive) s/p valve replacement Aortic valve endocarditis (Acute) 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 GERD (gastroesophageal reflux disease) (Inactive) HCAP (healthcare-associated pneumonia) (Inactive) 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) (Acute) Hepatitis C (Chronic) HTN (hypertension) (Chronic) Hx of deep venous thrombosis (Inactive) on Coumadin MSSA (methicillin susceptible Staphylococcus aureus) septicemia (Acute) Opiate dependence (Chronic) managed on suboxone Right rotator cuff tear (Inactive) Splenic abscess (Inactive) Tinea corporis (Inactive) Surgical History H/O aortic valve replacement (Acute) Pericardial aortic valve at [facility] - 08/21/2018 - Magna Ease 25 mm History of ankle surgery (Acute) S/P hardware removal (Inactive) L ankle. S/P percutaneous endoscopic gastrostomy (PEG) tube placement (Acute) S/P spinal surgery (Acute) Family History Father Heart disease in his 50's. Mother COPD (chronic obstructive pulmonary disease) Social History Smoking/Tobacco Use Status: Current every day Tobacco Type: cigarettes Alcohol Intake: never Drug use: Current Sobriety Caregiver/Support person: Yes Household members: spouse current occupation: Disabled Current gender identity: male Do you feel safe in your relationship?: Yes
[2019-02-21 12:34] VITALS: PULSE 105
--- NOTE | 2019-02-21 13:24 | PDOC.HHF2F ---
Home Health Certification Home Health Certification: 1. Encounter Date and Reason I certify that SERAFIN BHAGAT was seen by Pedro Mathur on 02/21/19 and that I had a [id number] encounter with this patient that meets the physician face to face encounter requirements. 2. Clinical Findings Supporting Skilled Need and Homebound Status I certify that home health services are medically necessary, include either intermittent intermediate and/or physical/speech therapy, and that this patient is homebound in that absences from the home require considerable and taxing effort and are infrequent or of short duration, or are attributable to the need to receive medical care. [X] (a) Attached documentation from encounter provides clinical findings supporting skilled need and homebound status (including what assistance patient requires to leave the home). The encounter with the patient was in whole, or in part, for the following medical condition, which is the primary reason for home health care: BACTEREMIA/ANKLE OSTEOMYELITIS Halfway: To check wound left ankle, (3 times weekly dressing change, compression wraps for edema control) medication adherence, respiratory status, diabetes control Physical Therapy: Speech Therapy: Homebound: Due to debility from CVA and prolonged hospitalization. 3. Certification and Authentication I certify that I composed the above information based on my clinical judgement relating to this patient's medical condition and, if applicable, clinical findings communicated to me by the NPP or inpatient physician who performed the Home Health Referral. All further orders will be obtained through Zach Sanders (Community Based Physician - PCP)
--- NOTE | 2019-02-21 15:26 | CMDISCH_ITS ---
- If Service Date Differs Date of service: 02/21/19 Time of Service: 15:26 LACE Index Scoring Tool - Questions: Length of Stay (in days): 4 - 6 Acuity (Admit via E.D.?): Yes Comorbidities: Diabetes w/o Complication E.D. Visits: 4 - Answers: Total Score: 12 Risk of Readmission: High Risk Care Management Discharge Reason for Hospitalization: Bacteremia/Ankle Osteomyelitis Discharge Plan: Mio will return home with new orders for HH RN for wound car e. He will also have a 48 hr Holter monitor, which he will follow up with his PCP. He was unable to lease picker his medication at the pharmacy post discharge. CM coordinated with his provider and the pharmacy to find an alternative abx which was available. His , Arline, drove him home via private vehicle. Patient/Family Education Needs: Review discharge instructions regarding medications and activity levels, discussion of self care including Ask Me Three Services Needed at Discharge: Home Health Care Services (HH RN)
--- NOTE | 2019-02-22 11:58 | PT.INDS ---
Date of service: 02/22/19 Time of Service: 11:58 PT Notes Visit Reasons: BACTEREMIA/ANKLE OSTEOMYELITIS Inpatient Physical Therapy Discharge Summary Dates: 02/22/2018 Dates of Service: 02/01/2019 through 02/21/2019 This is a clinical summary of care provided on the duration of dates listed above. No charge was made in the completion of this documentation. Referring Doctor: Mio Joahnsen MD PT Orders: PT CONSULT: Limited ability. CVA, dysarthria, limited ambulation. Precautions: Fall. Standard. Activity as tolerated. Patient Profile/Admitting Diagnosis: Patient is a 53-year-old male with dysarthria who is status post left ankle ORIF hardware removal on 12/20/2018 who presented to the ED on 02/16/2019 due to increasing drainage from his left ankle wound and associated left lower lobe pneumonia. Patient is a known IV drug user who has been clean and sober since May of this year. He is S/P ankle fracture fixation at [facility] in April 2018; on July 2018 had bacteremia/sepsis diagnosed at [facility]. Patient is also S/P AVR in August 2018 at [facility]. Patient left AMA on 02/16/2019 but was called back into the hospital due to the presence of gram-positive cocci in his blood cultures. Patient is diagnosed with sepsis, left ankle wound, left fibular osteomyelitis, lower extremity DVT, sinus pauses, and HCAP. Referral to physical therapy was resent in order to address decline in functional mobility, activity tolerance, and strength in anticipation of return to home with . 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 GERD (gastroesophageal reflux disease) (Inactive) HCAP (healthcare-associated pneumonia) (Inactive) 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) (Acute) Hepatitis C (Chronic) HTN (hypertension) (Chronic) Hx of deep venous thrombosis (Inactive) on Coumadin MSSA (methicillin susceptible Staphylococcus aureus) septicemia (Acute) Opiate dependence (Chronic) managed on suboxone Right rotator cuff tear (Inactive) Splenic abscess (Inactive) Tinea corporis (Inactive) Surgical History H/O aortic valve replacement (Acute) Pericardial aortic valve at [facility] - 08/21/2018 - Magna Ease 25 mm History of ankle surgery (Acute) S/P hardware removal (Inactive) L ankle S/P percutaneous endoscopic gastrostomy (PEG) tube placement (Acute) S/P spinal surgery (Acute) Social History/Home Situation: Patient lives with in a mobile home in [place], [place] with 4 steps to enter with a rail on the right side going up. He did say that he now has a ramp that he uses to get in and out of the house. Patient came out of previous incarceration in 2007. works full-time and along with daughter Xochitl provides needed assistance with patient's ADL performance at home. Mio states that he has home home health nurse who comes in regularly to manage his wound. Equipment Owned/DME: Hospital bed, FWW, bedside commode, shower chair, hand-held shower, grab bars, regular wheelchair Subjective: NT Objective: General Observation:NT Mental Status: NT Pain: NT ROM: Right Upper Extremity: Shoulder Flexion allows up to 90 degrees . Shoulder abduction allows up to 90 degrees. Elbow flexion WFL. Wrist flexion WFL. Opening and closing of hand WFL. Left Upper Extremity: Shoulder Flexion WFL. Shoulder abduction WFL. Elbow flexion WFL. Wrist flexion WFL. Opening and closing of hand WFL. Right Lower Extremity: Hip flexion WFL. Hip abduction WFL. Knee flexion WFL. Ankle dorsiflexion from fully plantarflexed position to neutral only. Ankle plantarflexion WFL. Left Lower Extremity: Hip flexion WFL. Hip abduction WFL. Knee flexion WFL. Ankle dorsiflexionfrom fully plantarflexed position to neutral only. Ankle plantarflexion WFL. Strength: Right Upper Extremity: Shoulder flexors 3-/5. Shoulder abductors 3-/5. Elbow flexors 4/5. Elbow extensors 4/5. Housekeeper/Custodian/Laundry Worker strong. Left Upper Extremity: Shoulder flexors 5/5. Shoulder abductors 5/5. Elbow flexors 5/5. Elbow extensors 5/5. Housekeeper/Custodian/Laundry Worker weak but functional. Right Lower Extremity: Hip flexors 4/5. Hip abductors 5/5. Knee flexors 5/5. Knee extensors 4/5. Ankle dorsiflexors 3-/5. Ankle plantarflexors 5/5. Left Lower Extremity:Hip flexors 5/5. Hip abductors 5/5. Knee flexors 5/5. Knee extensors 5/5. Ankle dorsiflexors 5/5. Ankle plantarflexors 5/5. Sensation: Intact as to pain and pressure on bilateral lower extremities. Bed Mobility/Transfers: Rolling independent Supine to sit independent Sit to supine independent Sit to stand independent Stand to sit independent Bed to chair independent Chair to bed independent Gait: Patient tolerated level surface ambulation of 300 feet +100 feet with front wheeled walker using FWB requiring only supervision. Patient is also able to tolerate three 4 inch steps and two 6 inch steps while holding onto bilateral rails with step to gait pattern requiring supervision assist. Balance: Static Sitting: Normal Dynamic Sitting: Normal Static Standing: Fair Dynamic Standing: Fair Assessment: Patient is a 53-year-old male who is status post left ankle ORIF hardware removal on 12/20/2018 who presented to the ED on 02/16/2019 due to increasing drainage from his left ankle wound and associated left lower lobe pneumonia. Patient is diagnosed with sepsis, left ankle wound, left fibular osteomyelitis, lower extremity DVT, sinus pauses, and HCAP. Patient demonstrates significant improvement in functional mobility performance during this episode of skilled care. Patient continues to present with clinical signs and symptoms consistent with current/admitting diagnoses that have resulted to mobility limitations, gait instability, generalized weakness, and impairment of motor control as demonstrated by the following impairment level findings: 1. Decreased strength to R UE/LE major muscle groups 2. Impaired standing balance 3. Impaired activity tolerance 4. Limitation of joint range of motion in right shoulder due to previous stroke Impairments continue to contribute to the following functional limitations: 1. Inability to safely ambulate without assistive device 2. Increased fall risk Goals: Goals X1 week 1. Supine-Sit independent MET 2. Sit-Supine independent MET 3. Sit-Stand independent MET 4. Stand-Sit independent MET 5. Bed-Chair independent MET 6. Chair-Bed independent MET 7. Independent gait on level surface with use of least restrictive device for at least 300 feet without report of pain nor dyspnea NOT MET 8. Independent with home exercise program NOT MET 9. Good static and dynamic standing balance/tolerance NOT MET DISCHARGE RECOMMENDATIONS: Outpatient PT services to continue scaling for balance and fall reduction techniques. TREATMENT CODE/TIME: NC. Thank you very much for this referral. Zunilda Zapata PT, DPT, CLT [facility] [place], [place]
== END 2019-02-21 14:42 | disposition home health service (06) | DRG 871 ==
LOC: ER 14:24 → MS 14:40 → ICU 02-18 08:42 → MS 02-19 10:45
PROVIDERS: Internal Medicine; Admitting Provider Family Medicine; Emergency Provider Student in an Organized Health Care Education/Training Program; PCP Specialist/Technologist Athletic Trainer; Visit Provider Internal Medicine
DX: A40.3 Sepsis due to Streptococcus pneumoniae (principal); J18.9 Pneumonia, unspecified organism; R78.81 Bacteremia; M86.9 Osteomyelitis, unspecified; F11.20 Opioid dependence, uncomplicated; I69.351 Hemiplegia and hemiparesis following cerebral infarction affecting right dominant side; I82.409 Acute embolism and thrombosis of unspecified deep veins of unspecified lower extremity; T81.49XD Infection following a procedure, other surgical site, subsequent encounter; T81.89XD Other complications of procedures, not elsewhere classified, subsequent encounter; B95.3 Streptococcus pneumoniae as the cause of diseases classified elsewhere; Z95.3 Presence of xenogenic heart valve; F32.9 Major depressive disorder, single episode, unspecified; I49.5 Sick sinus syndrome; E11.65 Type 2 diabetes mellitus with hyperglycemia; Z79.4 Long term (current) use of insulin; Y95 Nosocomial condition; I10 Essential (primary) hypertension; Z79.01 Long term (current) use of anticoagulants; B18.2 Chronic viral hepatitis C; G47.33 Obstructive sleep apnea (adult) (pediatric); F17.210 Nicotine dependence, cigarettes, uncomplicated; F19.21 Other psychoactive substance dependence, in remission; Z88.0 Allergy status to penicillin; Z71.3 Dietary counseling and surveillance
CPT/HCPCS: 36415; 80048; 80053; 84145; 87040; 93005; 94640; 96365; 96367; 97110; 97162; 97530; 99223; 99232; 99233; 99239; 99253; 99254; 99285; J1650; NC; 83605; 83735; 84484; 85025; 85610; 86140; 93010; 93225; 93306; 94660; J3370; J7613

== ENCOUNTER 2019-02-23 14:58 | Outpatient (CLI) | payer MEDICAID, SELFPAY ==
--- NOTE | 2019-02-25 08:37 | W.HOLTRPT ---
Date of service: 02/25/19 Time of Service: 08:37 Holter Monitor Report Holter Monitor Note: This is a 2-day event monitor ordered for the indication of bradycardia. ?Patient was in normal sinus rhythm for majority of the recording. Mean heart rate was 98 bpm. ?The patient had one episode of supraventricular tachycardia which lasted 30 beats. ?The patient had rare (less than 30%) premature atrial contractions. ?There were 0 episodes of ventricular tachycardia and rare (less than 1%) single ventricular ectopic beats. ?There were 2 episodes of bradycardia with the lowest rate 41 bpm. ?There were no pauses greater than 3 seconds, episodes of atrial fibrillation or evidence of high degree heart block.
== END 2019-02-23 15:18 ==
PROVIDERS: PCP Specialist/Technologist Athletic Trainer; Visit Provider Specialist/Technologist Athletic Trainer
DX: R00.1 Bradycardia, unspecified (principal); I47.1 Supraventricular tachycardia; I49.1 Atrial premature depolarization; I49.3 Ventricular premature depolarization
CPT/HCPCS: 93226

== ENCOUNTER 2019-03-11 01:24 | Outpatient (CLI) | payer MEDICAID, SELFPAY | END 2019-03-11 01:44 | PROVIDERS: PCP Specialist/Technologist Athletic Trainer; Visit Provider Nurse Practitioner Family | DX: R00.0 Tachycardia, unspecified (principal); I49.1 Atrial premature depolarization; I49.3 Ventricular premature depolarization | CPT/HCPCS: 93225 ==

== ENCOUNTER 2019-03-15 12:41 | Outpatient (CLI) | payer MEDICAID, SELFPAY ==
--- NOTE | 2019-03-15 14:21 | W.HOLTRPT ---
Date of service: 03/15/19 Time of Service: 14:21 Holter Monitor Report Holter Monitor Note: Is a 2-day Holter monitor ordered for the indication of sinus tachycardia. ?The patient was in normal sinus rhythm for the majority of the recording. Mean heart rate was 103 bpm (71?126bpm) ?There were no episodes of supraventricular tachycardia and rare (less than 1%) premature atrial contractions. ?There were no episodes of ventricular tachycardia and rare (less than 1%) single ventricular ectopic beats. ?There were no pauses greater than 3 seconds no episodes of high degree heart block and no episodes of atrial fibrillation. ?There were no patient triggered events.
== END 2019-03-15 13:01 ==
PROVIDERS: PCP Specialist/Technologist Athletic Trainer; Visit Provider Nurse Practitioner Family
DX: R00.0 Tachycardia, unspecified (principal); I49.1 Atrial premature depolarization; I49.3 Ventricular premature depolarization

== ENCOUNTER 2019-03-15 12:49 | Outpatient (CLI) | payer MEDICAID, SELFPAY | END 2019-03-15 13:09 | PROVIDERS: PCP Specialist/Technologist Athletic Trainer; Visit Provider Nurse Practitioner Family | DX: R00.0 Tachycardia, unspecified (principal); I49.1 Atrial premature depolarization; I49.3 Ventricular premature depolarization | CPT/HCPCS: 93226 ==

== ENCOUNTER 2019-03-19 00:56 | Outpatient (CLI) | payer MEDICAID, SELFPAY ==
--- NOTE | 2019-03-19 10:08 | DI.RAD_ITS ---
EXAM: XR CHEST 2V PA LATERAL INDICATION: STREPTOCOCCAL PNEUMONIA, J15.4, SINUS TACHYCARDIA, R00.0, SINUS PAUSE,I45.5. COMPARISON: XR CHEST 2V PA LATERAL from 02/15/2019 TECHNIQUE: 2D digital imaging was performed. FINDINGS: Heart is enlarged. Sternal wires and aortic valve prosthesis are again noted. The lungs appear deshawn r. No infiltrate or effusion is seen. IMPRESSION: Cardiomegaly. No acute abnormality.
== END 2019-03-19 01:16 ==
PROVIDERS: PCP Specialist/Technologist Athletic Trainer; Visit Provider Nurse Practitioner Family
DX: J15.4 Pneumonia due to other streptococci (principal); R00.0 Tachycardia, unspecified; I45.5 Other specified heart block; I51.7 Cardiomegaly; Z95.2 Presence of prosthetic heart valve
CPT/HCPCS: 71046

== ENCOUNTER 2019-03-24 16:41 | Inpatient (IN) | payer MEDICAID, SELFPAY ==
[2019-03-24] VITALS (82 sets, daily range): BP systolic 46–157; BP diastolic 24–123; PULSE 89–177; RESP 10–30; TEMP 36.3–37; O2SAT 88–100
[2019-03-24] MEDS: Normal Saline 1,000 ML 1000 ML IV ×3 (17:08→21:32)
--- NOTE | 2019-03-24 17:09 | DI.RAD_ITS ---
EXAM: XR PORTABLE CHEST AP INDICATION: coffee ground emesis, hypotension. COMPARISON: XR CHEST 2V PA LATERAL from 03/19/2019 TECHNIQUE: 2D digital imaging was performed. FINDINGS: Heart size is within normal limits given the projection. There is again seen an aortic valve replace ment. Pulmonary vasculature is unremarkable. Lungs are clear. No pleural effusion or pneumothorax is identified. Sternal wires are in place. IMPRESSION: No acute pulmonary process.
--- NOTE | 2019-03-24 17:10 | ED.GENADUL_ITS ---
Discharge Plan Disposition Patient Disposition: [facility] INPATIENT Condition: Critical Discharge Details Chief Complaint: GI Bleed Clinical Impression: Acute gastrointestinal bleeding, Acute anemia, Supratherapeutic INR, Acute kidney injury, Hyperkalemia Admit Date/Time: 03/24/19 18:15 Admit Provider: John Singh Attending Provider: John Singh Primary Care Provider: Zach Sanders ED Provider: Leticia Epperson Discharge Data Discharge Date/Time-TO BE ENTERED AT DEPARTURE: 03/24/19 19:55 Medical Decision Making 1640 -- 53-year-old male with a history of previous IVDA, endocarditis with subsequent aortic valve replacement on Coumadin, ankle fracture complicated by infection and bacteremia who was admitted here 6 weeks ago for bacteremia in the setting of pneumonia presents for chest tightness, dizziness and black stools. He admits to black stools for the past 4 days. He states he was sitting at home this afternoon when he developed chest tightness. He admits to dizziness that is worse with movement. Denies any known fever. He admits to a few episodes of vomiting yesterday. He denies any abdominal pain. BP 87/57 on arrival. Heart rate 90s. Afebrile. Patient is significantly pale and lethargic but able to answer questions and is oriented x3. Per EMS report, patient was discharged from here 4 days ago. There is no record of this here and he does not appear to have been at [facility]. Unclear if roselyn ent is uncertain of timeframe. EMS reports the patient was hypotensive with 80s/50s in route. The initial call was for acute GI bleed. EMS states upon arrival, patient only complained of chest tightness and dizziness. EKG on arrival notes a rate of 102, sinus, incomplete right bundle branch block. No acute change from previous EKG. No acute ST ischemic changes. Rectal exam notes black stool guaiac positive. Abdomen soft nontender. Concern for acute GI bleed, sepsis, ACS, arrhythmia. 1730 -- Labs drawn on arrival note white blood cell count 20. Hemoglobin 5.9. Hematocrit 18.6. Platelets 430. INR 6.2. Creatinine 2.48. BUN 90. Lactate 2.9. Troponin negative. Lipase normal. Chest x-ray no acute disease. BP has slightly improved at times with systolic in the low 100s, but high has a few readings with systolic 80s to 90s. Concern for acute GI bleed in setting of supratherapeutic INR on warfarin. Discussed case with surgery who is aware of GI bleed and likely need for endoscopy. 4 units RBCs, 4 units FFP and p.o. and IV vitamin K ordered. 1829 --discussed with hospitalist -accepts patient for admission. CMP resulted which notes a potassium of 5.3. There are no acute EKG changes at this time, and suspect this is in the setting of acute kidney injury, will hold on any treatment at this time. 1899 --patient has 1 peripheral IV left arm, unable to obtain access in right upper extremity. Right femoral central line placed. BP improved 103/49. Patient tolerated procedure well. Medical Records Medical records reviewed: Yes I reviewed the patient's medical records. Imaging Data Radiologic Study: Radiologist's impression: XR Chest, 1 View Exam date and time: 03/24/2019 5:11 PM Age: 53 years old Clinical indication: Chest pain TECHNIQUE: Imaging protocol: XR of the chest Views: 1 view. COMPARISON: CR XR CHEST 2V PA LATERAL 03/19/2019 10:08 AM FINDINGS: Lungs: Unremarkable. No consolidation. Pleural space: Unremarkable. No pleural effusion. No pneumothorax. Heart/Mediastinum: Cardiomegaly. Status post aortic valve replacement. Bones/joints: There are sternal wires consistent with previous sternotomy incision. IMPRESSION: Cardiomegaly. No evidence of active pulmonary disease. Lab Data Lab results reviewed: Yes I reviewed the patient's lab results. Labs: 03/24/19 17:50 Blood Blood Culture - Pending 03/24/19 17:50 Blood Blood Culture - Pending Laboratory Tests Range/Units 03/24/19 03/24/19 03/24/19 16:56 16:56 16:56 WBC (4.4-10.8) k/cumm 20.31 H RBC (4.50-6.00) m/cumm 1.97 L Hgb (13.5-17.5) g/dL 5.9 L* Hct (40.0-50.0) % 18.6 L* MCV (80-95) fL 94.4 MCH (27.0-33.0) pg 29.9 MCHC (32.0-36.0) g/dL 31.7 L RDW (11.8-14.1) % 16.7 H Plt Count (130-400) x1000/uL 430 H MPV (8.0-11.0) fL 9.7 Immature Gran % % 0.7 Neutrophils % 80.3 Lymphocytes % 10.1 Monocytes % 8.4 Eosinophils % 0.3 Basophils % 0.2 Absolute Neutrophils (1.2-6.7) k/cumm 16.31 H Absolute Lymphocytes (1.2-3.4) k/cumm 2.05 Absolute Monocytes (0.11-0.7) k/cumm 1.71 H Absolute Eosinophils (0.0-0.7) k/cumm 0.06 Absolute Basophils (0.0-0.2) k/cumm 0.04 Differential Comment Agrees w/ instrument RBC Morphology See below Polychromasia Present Hypochromasia 2+ Basophilic Stippling 2+ Anisocytosis 2+ Macrocytosis 2+ PT (9.3-11.0) sec 59.1 H INR (0.9-1.1) 6.2 H* APTT (21.0-31.4) sec 53.0 H Sodium Cancelled Potassium Cancelled Chloride Cancelled Carbon Dioxide Cancelled Anion Gap Cancelled BUN Cancelled Creatinine Cancelled Estimated GFR/1.73 m2 Cancelled Glucose Cancelled Lactate (0.6-1.4) mmol/L Calcium Cancelled Magnesium Cancelled Total Bilirubin Cancelled AST Cancelled ALT Cancelled Alkaline Phosphatase Cancelled Troponin I Cancelled Total Protein Cancelled Albumin Cancelled Lipase Cancelled Patient ABO/Rh Antibody Screen Crossmatch Range/Units 03/24/19 03/24/19 03/24/19 17:50 17:50 17:50 WBC (4.4-10.8) k/cumm RBC (4.50-6.00) m/cumm Hgb (13.5-17.5) g/dL Hct (40.0-50.0) % MCV (80-95) fL MCH (27.0-33.0) pg MCHC (32.0-36.0) g/dL RDW (11.8-14.1) % Plt Count (130-400) x1000/uL MPV (8.0-11.0) fL Immature Gran % % Neutrophils % Lymphocytes % Monocytes % Eosinophils % Basophils % Absolute Neutrophils (1.2-6.7) k/cumm Absolute Lymphocytes (1.2-3.4) k/cumm Absolute Monocytes (0.11-0.7) k/cumm Absolute Eosinophils (0.0-0.7) k/cumm Absolute Basophils (0.0-0.2) k/cumm Differential Comment RBC Morphology Polychromasia Hypochromasia Basophilic Stippling Anisocytosis Macrocytosis PT (9.3-11.0) sec INR (0.9-1.1) APTT (21.0-31.4) sec Sodium 140 Potassium 5.3 H Chloride 106 Carbon Dioxide 22.9 Anion Gap 11.1 H BUN 90 H* Creatinine 2.48 H Estimated GFR/1.73 m2 27.40 Glucose 211 H Lactate (0.6-1.4) mmol/L 2.9 H* Calcium 7.4 L Magnesium 2.3 Total Bilirubin 0.1 L AST 10 L ALT 10 L Alkaline Phosphatase 48 Troponin I < 0.05 Total Protein 5.5 L Albumin 2.5 L Lipase 79 Patient ABO/Rh A Positive Antibody Screen Negative Crossmatch See Detail ECG Data Attestation: I personally reviewed and interpreted this ECG (s) as follows: Interpretation: Rate of 102, sinus, incomplete right bundle branch block. No acute ST elevation or depression. MS 144. QTc 440. QRS 102. HPI General Mode of arrival: EMS . Date/Time Provider Initiated Documentation: 03/24/19 17:18 . Limitations to Documentation: no limitations . Information obtained by: patient, family and EMS . History of Present Illness 53 year old M presents to the emergency department with the chief complaint of chest tightness, dizziness, black stools, Patient started experiencing this day(s) (4) and it has been constant. No relieving factors improve symptom(s), No exacerbating factors reported . Patient notes nausea/vomiting and shortness of breath; denies fever/chills. Related Data Home Medications Medication Instructions Recorded Confirmed albuterol sulfate [Ventolin HFA] 2 puff INHALATION Q2H PRN PRN #1 12/04/16 03/24/19 inh acetaminophen [Tylenol] 650 mg PO Q4H PRN PRN #0 tab 08/08/18 03/24/19 docusate sodium [Colace] 100 mg PO BID #0 cap 08/08/18 03/24/19 insulin aspart U-100 [Novolog 0 units SUBCUT 0800,1200,1700 #0 ml 08/08/18 03/24/19 Flexpen U-100 Insulin] levetiracetam [Keppra] 500 mg PO BID #0 tab 08/08/18 03/24/19 magnesium hydroxide [Milk of 30 ml PO DAILY PRN PRN #0 ml 08/08/18 03/24/19 Magnesia] melatonin 6 mg PO HS #0 tab 08/08/18 02/16/19 pantoprazole 40 mg PO DAILY@0730 #0 tab 08/08/18 03/24/19 warfarin 2.5 mg tablet See Rx Instructions .ROUTE .COMPLEX 09/27/18 03/24/19 warfarin 5 mg tablet 5 mg PO DAILY 09/27/18 03/24/19 bisacodyl 5 mg tablet,delayed 5 mg PO ONCE #4 tab 01/25/19 03/24/19 release polyethylene glycol 3350 17 gram 255 g PO DAILY #15 each 01/25/19 02/16/19 oral powder packet Flovent HFA 2 puff INHALATION BID 02/15/19 03/24/19 acetaminophen [Tylenol Extra 500 mg PO Q6H PRN 02/15/19 03/24/19 Strength] albuterol sulfate [ProAir HFA] 2 puff INHALATION Q4H PRN 02/15/19 03/24/19 aspirin 81 mg PO DAILY 02/15/19 03/24/19 ferrous gluconate 324 mg PO BID 02/15/19 02/16/19 furosemide [Lasix] 40 mg PO DAILY 02/15/19 03/24/19 gabapentin 300 mg PO TID 02/15/19 03/24/19 metformin 1,000 mg PO DAILY 02/15/19 03/24/19 polyethylene glycol 3350 [Miralax] 17 g PO DAILY 02/15/19 02/16/19 insulin glargine [Lantus Solostar 40 units SUBCUT HS #1 ml 02/21/19 03/24/19 U-100 Insulin] lisinopril 20 mg PO DAILY #30 tab 02/21/19 03/24/19 nicotine 21 mg TRANSDERMAL DAILY PRN PRN 01/02/20 02/02/20 #30 ea buprenorphine-naloxone [Suboxone] See Rx Instructions .ROUTE .COMPLEX 03/24/19 duloxetine [Cymbalta] 30 mg PO BID 03/24/19 03/24/19 insulin lispro [Humalog U-100 See Rx Instructions .ROUTE .COMPLEX 03/24/19 03/24/19 Insulin] Previous Rx's Medication Instructions Recorded albuterol sulfate [Ventolin HFA] 2 puff INHALATION Q2H PRN PRN #1 12/04/16 inh acetaminophen [Tylenol] 650 mg PO Q4H PRN PRN #0 tab 08/08/18 docusate sodium [Colace] 100 mg PO BID #0 cap 08/08/18 insulin aspart U-100 [Novolog 0 units SUBCUT 0800,1200,1700 #0 ml 08/08/18 Flexpen U-100 Insulin] levetiracetam [Keppra] 500 mg PO BID #0 tab 08/08/18 magnesium hydroxide [Milk of 30 ml PO DAILY PRN PRN #0 ml 08/08/18 Magnesia] melatonin 6 mg PO HS #0 tab 08/08/18 pantoprazole 40 mg PO DAILY@0730 #0 tab 08/08/18 bisacodyl 5 mg tablet,delayed 5 mg PO ONCE #4 tab 01/25/19 release polyethylene glycol 3350 17 gram 255 g PO DAILY #15 each 01/25/19 oral powder packet insulin glargine [Lantus Solostar 40 units SUBCUT HS #1 ml 02/21/19 U-100 Insulin] lisinopril 20 mg PO DAILY #30 tab 02/21/19 nicotine 21 mg TRANSDERMAL DAILY PRN PRN 02/21/19 #30 ea Allergies Allergy/AdvReac Type Severity Reaction Status Date / Time Penicillins AdvReac Severe Vomiting Verified 03/24/19 17:04 hydrocodone AdvReac Intermediate vomiting Verified 03/24/19 17:04 General Stated Complaint: GI Bleed LILLIAN: 2 Review of Systems All systems reviewed & are unremarkable except as noted in HPI and below Constitutional Constitutional: Reports as per HPI, Denies chills and Denies fever(s) Eyes Eyes: Denies blurry vision ENT Ears, Nose, Mouth, and Throat: Reports dizziness, Denies sore throat and Denies throat swelling Cardiovascular Cardiovascular: Reports chest pain and Reports dyspnea Respiratory Respiratory: Denies cough and Reports dyspnea Gastrointestinal Gastrointestinal: Denies abdominal pain, Denies diarrhea, Reports vomiting and Reports other (black stools) Genitourinary Genitourinary: Denies hematuria and Denies dysuria Musculoskeletal Musculoskeletal: Denies back pain and Denies numbness Integumentary/Breasts Skin/Breast: Denies lesions and Denies rash Neurologic Neurologic: Reports dizziness, Denies focal weakness and Denies numbness Allergic/Immunologic Allergic/Immunologic: Denies throat swelling [facility] Medical History ERICK (acute kidney injury) (Inactive) Aortic insufficiency (Inactive) s/p valve replacement Aortic valve endocarditis (Inactive) 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 Bronchitis (Inactive) Chest pain with low risk for cardiac etiology (Inactive) Chronic anticoagulation (Acute) Chronic pain (Inactive) Community acquired pneumonia (Inactive) Depression (Inactive) Diabetes mellitus (Inactive) Discharge planning issues (Inactive) Displaced bimalleolar fracture of left ankle (Inactive) s/p infection of wound DVT prophylaxis (Inactive) DVT, lower extremity (Inactive) on coumadin 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 GERD (gastroesophageal reflux disease) (Inactive) HCAP (healthcare-associated pneumonia) (Inactive) 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) (Inactive) Hepatitis C (Inactive) Hx of deep venous thrombosis (Inactive) on Coumadin Hypertension (Inactive) Hypomagnesemia (Inactive) Intractable hiccups (Inactive) Lactic acidosis (Inactive) MSSA (methicillin susceptible Staphylococcus aureus) septicemia (Inactive) Obstructive sleep apnea (Inactive) Opiate dependence (Inactive) managed on suboxone Osteomyelitis of left fibula (Inactive) Right rotator cuff tear (Inactive) Sepsis (Inactive) Sinus pause (Inactive) Sinus tachycardia (Inactive) Smoker (Inactive) Splenic abscess (Inactive) Streptococcus pneumoniae infection (Inactive) Tinea corporis (Inactive) Wound of left ankle (Inactive) Surgical History H/O aortic valve replacement (Inactive) Pericardial aortic valve at [facility] [place] - 08/21/2018 - Magna Ease 25 mm History of ankle surgery (Acute) S/P hardware removal (Inactive) L ankle. S/P percutaneous endoscopic gastrostomy (PEG) tube placement (Acute) S/P spinal surgery (Acute) Family History Father Heart disease in his 50's. Mother COPD (chronic obstructive pulmonary disease) Social History (Updated 03/24/19 @ 20:09 by John Singh) Smoking/Tobacco Use Status: Current every day Tobacco Type: cigarettes Alcohol Intake: never Drug use: Current Sobriety Caregiver/Support person: Yes Household members: spouse current occupation: Disabled Current gender identity: male Do you feel safe in your relationship?: Yes Additional Social history: Lives in [place] with his ex-, Arline Vanegas, who helps care for him. He confirms last tobacco, alcohol, or drugs was before May 2018. Exam Const General: cooperative, ill appearing chronically and lethargic Orientation: oriented x3 HENMT Head: normal to inspection Ears: hearing grossly normal bilaterally and external ears normal General nose exam: external nose normal Face and sinus: normal facial exam Mouth: mucous membranes dry Eyes General: appearance normal, both eyes and all related structures Eyelids: eyelids normal EOM: EOM intact bilaterally Neck Neck: normal visual inspection Lymphatic: no lymphadenopathy noted Chest Chest: normal inspection of the chest Resp Effort & Inspection: normal respiratory effort and able to speak in complete sentences Auscultation: clear to auscultation bilaterally Cardio Rate: regular rate Rhythm: regular rhythm GI Inspection: normal to inspection Palpation: soft, not firm, no guarding, no hepatosplenomegaly, no masses and nontender Rectal Exam: heme positive stool gross blood (black colored stool) Skin General skin exam: no rashes or lesions noted Neuro General: awake, oriented x3 and other (lethargic but arousable and able to answer questions) Cognition: normal cognition Speech: speech normal Motor: other (has chronic R sided hemiparesis due to cva) Extrem Other: dusky color to b/l distal LE. Distal pulses intact. Psych Appearance: grossly normal Mental Status: mental status grossly normal Speech and Movement: speech and movement normal Affect: normal affect Thought Process: normal Course Vital Signs Vital signs: Vital Signs Pulse 93 H 03/24/19 16:40 Respiratory Rate 16 03/24/19 16:40 Blood Pressure 87/57 L 03/24/19 16:40 Pulse 93 H 03/24/19 16:40 Respiratory Rate 16 03/24/19 16:40 Blood Pressure 87/57 L 03/24/19 16:40 Blood Pressure Position Supine 03/24/19 16:40 Lab/Test Results Lab/Test Results: 03/24/19 17:09 Blood Blood Culture - Pending 03/24/19 17:09 Blood Blood Culture - Pending Procedures Central Line Placement Right Femoral: Time Out Performed: Yes Patient Placed on Monitor/Pulse Ox: Yes MD Prep: mask, gown and gloves Central Line Prep: Chlorhexidine scrub Local Anesthetic: Lidocaine 1% Amount of anesthesia used (mL): 5 Ultrasound Used for Placement: No Central Line Lumen Inserted: triple Post Procedure: good blood return, all ports aspirated, flushed, capped and sutured in place with 3-0 nylon Patient Tolerated Procedure: well Complications: none Critical Care Time Critical Care Time Critical Care Time: Yes Total Critical Care Time: 60 Attestation: I spent 60 minutes of critical care time with this patient. This does not include time spent on separately reported billable procedures.
[2019-03-24 17:11] LABS: Abs Immature Grans 0.15 k/cumm (0.0-0.09); Absolute Basophil Count 0.04 k/cumm (0.0-0.2); Absolute Eosinophil Count 0.06 k/cumm (0.0-0.7); Absolute Monocyte Count 1.71 k/cumm (0.11-0.7); Basophils % 0.2; Eosinophils % 0.3; Immature Grans % 0.7 %; Lymphocytes % 10.1; Mean Corp. HGB Concentration 31.7 g/dL (32.0-36.0); Mean Corpuscular Hemoglobin 29.9 pg (27.0-33.0); Mean Corpuscular Volume 94.4 fL (80-95); Mean Platelet Volume 9.7 fL (8.0-11.0); Monocytes % 8.4; Neutrophils % 80.3; Platelet Count 430 x1000/uL (130-400); RBC 1.97 m/cumm (4.50-6.00); RBC Distribution Width 16.7 % (11.8-14.1); White Blood Cell Count 20.31 k/cumm (4.4-10.8)
[2019-03-24 17:14] LABS: Absolute Lymphocyte Count 2.05 k/cumm (1.2-3.4); Absolute Neutrophil Count 16.31 k/cumm (1.2-6.7)
[2019-03-24 17:15] LABS: HCT 18.6 % (40.0-50.0); HGB 5.9 g/dL (13.5-17.5)
[2019-03-24 17:21] LABS: Prothrombin Time 59.1 sec (9.3-11.0)
--- NOTE | 2019-03-24 17:29 | DI.VRAD_ITS ---
PROCEDURE INFORMATION: Exam: XR Chest, 1 View Exam date and time: 03/24/2019 5:11 PM Age: 53 years old Clinical indication: Chest pain TECHNIQUE: Imaging protocol: XR of the chest Views: 1 view. COMPARISON: CR XR CHEST 2V PA LATERAL 03/19/2019 10:08 AM FINDINGS: Lungs: Unremarkable. No consolidation. Pleural space: Unremarkable. No pleural effusion. No pneumothorax. Heart/Mediastinum: Cardiomegaly. Status post aortic valve replacement. Bones/joints: There are sternal wires consistent with previous sternotomy incision. IMPRESSION: Cardiomegaly. No evidence of active pulmonary disease. Dictated and Authenticated by: Hossein Laboy MD. Ordering:PAKO Kelly MD
[2019-03-24 17:34] LABS: INR 6.2 (0.9-1.1)
[2019-03-24] MEDS: Phytonadione 5 MG TABLET PO (17:50)
[2019-03-24 18:06] LABS: Lactate 2.9 mmol/L (0.6-1.4)
[2019-03-24 18:33] LABS: ALT 10 U/L (16-63); AST 10 U/L (15-37); Albumin 2.5 g/dL (3.4-5.0); Alkaline Phosphatase 48 U/L (46-116); Anion Gap 11.1 mmol/L (3-11); Bilirubin, Total 0.1 mg/dL (0.2-1.0); CO2 22.9 mmol/L (21.0-32.0); CREATININE 2.48 mg/dL (0.70-1.30); Calcium 7.4 mg/dL (8.5-10.1); Chloride 106 mmol/L (98-107); Glucose 211 mg/dL (74-106); Lipase 79 U/L (73-393); Magnesium 2.3 mg/dL (1.8-2.4); Potassium 5.3 mmol/L (3.5-5.1); Sodium 140 mmol/L (136-145); Total Protein 5.5 g/dL (6.4-8.2)
[2019-03-24 18:38] LABS: BUN 90 mg/dL (7-18); Troponin I < 0.05 ng/Ml (<0.06)
--- NOTE | 2019-03-24 19:14 | SCONE_ITS ---
Date of service: 04/17/19 Time of Service: 19:15 Assessment and Plan Assessment and plan (1) 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): Status: Acute (2) Hx of deep venous thrombosis: Status: Resolved (3) Opiate dependence: Status: Chronic (4) Aortic insufficiency: Status: Acute (5) Diabetes mellitus: Status: Acute (6) Acute gastrointestinal bleeding: Status: Resolved (7) Acute anemia: Status: Acute Assessment and plan: pt responded to fluid resusitation in the ED. Vit K and FFP given being actively transfused PPI and carafate EGD when hemodynacmically stable. (8) Supratherapeutic INR: Status: Resolved (9) Acute kidney injury: Status: Resolved (10) Chest pain with low risk for cardiac etiology: Status: Resolved History of Present Illness Narrative: pt called 911 after vomiting blood and feeling week/dizzy adn chest pain. He vomited blood at home and was having dark- tarry stools. He is on coumadin. His BP is 76/40. fluid resuscitation is started. His abdomen is not distended and he denies having any abdominal pain. He is not actively vomiting blood. Guac is not grossly + He did receive vit K adn FFP and will be transfused. His BP does respond to fluids and does not appear to be actively bleeding. he appears week adn pale. His feet are cool and cyanotic. his blood sugar is elevated- 220. He can't remember if he took his meds today. He can't give a ROS- this is taken from the chart. He was discharged from the hosp 2 wks ago. 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 Bronchitis (Inactive) Chest pain with low risk for cardiac etiology (Resolved) Chronic anticoagulation (Acute) Chronic pain (Inactive) Community acquired pneumonia (Inactive) Depression (Inactive) Diabetes mellitus (Acute) Discharge planning issues (Acute) Displaced bimalleolar fracture of left ankle (Inactive) s/p infection of wound DVT prophylaxis (Inactive) DVT, lower extremity (Inactive) on coumadin 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 GERD (gastroesophageal reflux disease) (Inactive) HCAP (healthcare-associated pneumonia) (Inactive) 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) (Acute) Hepatitis C (Inactive) Hx of deep venous thrombosis (Resolved) on Coumadin Hypertension (Acute) Hypomagnesemia (Inactive) Intractable hiccups (Inactive) Lactic acidosis (Inactive) MSSA (methicillin susceptible Staphylococcus aureus) septicemia (Inactive) Obstructive sleep apnea (Inactive) Opiate dependence (Chronic) managed on suboxone Osteomyelitis of left fibula (Inactive) Right rotator cuff tear (Inactive) Sepsis (Inactive) Sinus pause (Inactive) Sinus tachycardia (Inactive) Smoker (Inactive) Splenic abscess (Inactive) Streptococcus pneumoniae infection (Inactive) Tinea corporis (Inactive) Wound of left ankle (Inactive) Surgical History H/O aortic valve replacement (Inactive) Pericardial aortic valve at [facility] - 08/21/2018 - Magna Ease 25 mm History of ankle surgery (Acute) S/P hardware removal (Inactive) L ankle. S/P percutaneous endoscopic gastrostomy (PEG) tube placement (Acute) S/P spinal surgery (Acute) Family History Father Heart disease in his 50's. Mother COPD (chronic obstructive pulmonary disease) Social History (Updated 03/24/19 @ 20:09 by John Singh) Smoking/Tobacco Use Status: Current every day Tobacco Type: cigarettes Alcohol Intake: never Drug use: Current Sobriety Caregiver/Support person: Yes Household members: spouse current occupation: Disabled Current gender identity: male Do you feel safe in your relationship?: Yes Additional Social history: Lives in [place] with his ex-, Arline Vanegas, who helps care for him. He confirms last tobacco, alcohol, or drugs was before May 2018. Exam [facility] Head: normal to inspection and no palpable skull fracture Eyes Sclera: sclerae normal Pupils: PERRL Neck Neck: no JVD Lymphatic: no lymphadenopathy noted Chest Chest: normal inspection of the chest and No rash Resp Auscultation: clear to auscultation bilaterally, no rales, no rhonchi and no wheezes Cardio Jugular venous pressure: no JVD Rate: tachycardic Rhythm: regular rhythm GI Inspection: obesity and striae Palpation: soft, not firm, no guarding, no hernias, no masses, nontender and No ascites Auscultation: normal bowel sounds Rectal Exam: heme negative stool Extrem Right upper extremity: cyanosis and edema Left upper extremity: cyanosis and edema Right lower extremity: cyanosis and edema; abnormal capillary refill Left lower extremity: cyanosis and edema; abnormal capillary refill Other: decreased cap refill. no palpable pulses. Results Last Vital Signs Pulse 98 H 03/24/19 19:01 Resp 16 03/24/19 19:02 BP 103/59 L 03/24/19 19:01 Pulse Ox 100 03/24/19 19:02 Labs Result diagrams: 03/28/19 06:28 03/28/19 06:28 Labs: Laboratory Results - last 24 hr 03/24/19 03/24/19 03/24/19 16:56 16:56 16:56 WBC 20.31 H RBC 1.97 L Hgb 5.9 L* Hct 18.6 L* MCV 94.4 MCH 29.9 MCHC 31.7 L RDW 16.7 H Plt Count 430 H MPV 9.7 PT 59.1 H INR 6.2 H* APTT 53.0 H Sodium Cancelled Potassium Cancelled Chloride Cancelled Carbon Dioxide Cancelled Anion Gap Cancelled BUN Cancelled Creatinine Cancelled Estimated GFR/1.73 m2 Cancelled Glucose Cancelled Lactate Calcium Cancelled Magnesium Cancelled Total Bilirubin Cancelled AST Cancelled ALT Cancelled Alkaline Phosphatase Cancelled Troponin I Cancelled Total Protein Cancelled Albumin Cancelled Lipase Cancelled Patient ABO/Rh Antibody Screen Crossmatch 03/24/19 03/24/19 03/24/19 17:50 17:50 17:50 WBC RBC Hgb Hct MCV MCH MCHC RDW Plt Count MPV PT INR APTT Sodium 140 Potassium 5.3 H Chloride 106 Carbon Dioxide 22.9 Anion Gap 11.1 H BUN 90 H* Creatinine 2.48 H Estimated GFR/1.73 m2 27.40 Glucose 211 H Lactate 2.9 H* Calcium 7.4 L Magnesium 2.3 Total Bilirubin 0.1 L AST 10 L ALT 10 L Alkaline Phosphatase 48 Troponin I < 0.05 Total Protein 5.5 L Albumin 2.5 L Lipase 79 Patient ABO/Rh A Positive Antibody Screen Negative Crossmatch See Detail
[2019-03-24] MEDS: PHYTONADIONE 10 MG in Normal Saline 50 ML 150 MG IVPB (19:44)
[2019-03-24 19:47] LABS: Anisocytosis 2+; Basophilic Stippling 2+; Hypochromasia 2+; Polychromasia Present
[2019-03-24 19:48] LABS: Diff Comment Agrees w/ Instrument; Macrocytosis 2+
--- NOTE | 2019-03-24 19:53 | HPE_ITS ---
Date of service: 03/24/19 Time of Service: 19:53 Assessment and Plan Assessment and plan (1) Acute gastrointestinal bleeding: Status: Acute Assessment and plan: Initially resuscitated in the emergency room with blood and FFP. He has 4 units of both and is in the middle of these infusions. I appreciate Dr. Donato placing a central line so we have reliable access, as he continues with hypotension related to profound anemia and hypovolemia. We will be monitored closely in the ICU with additional fluid resuscitation and close monitoring of his hemoglobin hematocrit levels overnight. This appears most consistent with upper GI bleed with melanotic stools and elevated BUN and history of GERD. Patient has notable history of hepatitis C, but no known cirrhosis. His coagulopathy is secondary to warfarin use as well as aspirin. We are holding both and the patient has received oral and IV rosemarie min K. Have ordered a pantoprazole drip. Surgery has been consulted in the emergency room. Consider endoscopy at surgeon's discretion, I will keep him n.p.o. in case this can be done tomorrow as we work on getting the INR down to at least below 2.5. (2) Acute anemia: Status: Acute Assessment and plan: Profound symptomatic anemia related to acute blood loss. Patient did have a mild anemia with hemoglobin of 12 and known positive occult blood testing in January. He should have a colonoscopy as long with his EGD, but this is not an acute priority. (3) Supratherapeutic INR: Status: Acute Assessment and plan: Secondary to warfarin use. I am not sure that a novel oral anticoagulant is contraindicated, and this may carry less long-term risk of bleeding. I would also question whether aspirin needs to be continued, as I do not note significant coronary artery disease in his history. 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 His questions could be considered after treating his acute bleed. (4) Acute kidney injury: Status: Acute Assessment and plan: Secondary to hypovolemia. He is getting blood as well as fluids. Follow his renal function, which was normal in January. (5) Hyperkalemia: Status: Acute Assessment and plan: Secondary acute kidney injury. He is also on lisinopril, which were holding with his hypotension. He should be able to to lerate lisinopril again once his kidneys recover. (6) Chest pain with low risk for cardiac etiology: Status: Acute Assessment and plan: Chest pains concerning given profound anemia, but troponin and EKG reassuring that he is not having an acute NC. Will be monitored on telemetry. (7) Opiate dependence: Status: Acute Assessment and plan: He has been stable on 8 mg/2mg buprenorphi ne/Nalaxone. He is currently n.p.o., but will give this sublingually when it is due. He does not appear to be in acute withdrawal or intoxication. (8) Hypertension: Status: Acute Assessment and plan: Holding outpatient blood pressure medications as above. (9) Aortic insufficiency: Status: Acute Assessment and plan: Status post aortic valve replacement. Most recent echocardiogram January 2018 showed a normal ejection fraction of 55 to 60%, and no signs of endocarditis. (10) Diabetes mellitus: Status: Acute Assessment and plan: Hemoglobin A1c was 7.3 in January 16, 2019. This represents reasonable control given his comorbidities. He is n.p.o., so I am giving half of his chronic 40 mg glargine insulin, and covering him with moderate sliding scale. Will increase this once he starts to eat back to his outpatient dose. Holding metformin with his renal failure. (11) Hx of deep venous thrombosis: Status: Acute Assessment and plan: Patient has a history of DVT, but I could not find details of the timing of this. We are holding the warfarin as above, but will use SCDs. (12) Discharge planning issues: Status: Acute Assessment and plan: Patient is currently critically ill in the intensive care unit. I did confirm he is full code. I did discuss with Dr. Epperson in the emergency room question of appropriateness for treatment at [facility], and she confirmed that surgical team evaluated him in the emergency room and felt comfortable caring for him here. History of Present Illness History of Present Illness Chief Complaint: black stools, dizzy Narrative: 53-year-old man with history of aortic valve replacement and DVT on warfarin and aspirin who presents with 2 days of black stools, lightheadedness, and chest pain. Patient states he started feeling sick 2 days ago with nausea and some vomiting. He has had little to eat since then. I have day he noted black stools. He has noted progressively more lightheadedness, worse when not lying down. He is also had constant chest pain on his left side that does not radiate. He has not noted bright red blood in the stool. He has not noted coffee grounds or blood in his vomit, that he has vomited several times over the past 2 days. He also reports feeling of his heart racing and some mild shortness of breath. Patient denies any change recently in his warfarin dosing, or other medication changes. He denies any diet changes other than not eating well in the past 2 to 3 days. The only other bleeding he is noted was a nosebleed from his left nostril yesterday which resolved on its own. He denies any known history of gastric ulcer. He was admitted February 16 through February 21 for streptococcal pneumonia with associated bacteremia, and finished antibiotics February 23. It is also of note that the patient had a positive iFOB in January 2019 and was scheduled for outpatient colonoscopy. He has been taking pantoprazole 40 mg daily for GERD. Review of Systems Narrative: Denies fevers or chills. No weight changes recently noted. No headache, double vision, or other eye changes. No ear pain or sores in the mouth, though does feel dry. Is very thirsty. See HPI regarding chest pain. He denies syncope. Mild cough, but not productive, no hemoptysis. Urinating normally, no pain or hematuria. He denies abdominal pain or recent significant heartburn. No new rashes or other skin lesions. No changes in chronic weakness. No new numbness or abnormal movements. 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 Bronchitis (Inactive) Chest pain with low risk for cardiac etiology (Inactive) Chronic anticoagulation (Acute) Chronic pain (Inactive) Community acquired pneumonia (Inactive) Depression (Inactive) Diabetes mellitus (Inactive) Discharge planning issues (Inactive) Displaced bimalleolar fracture of left ankle (Inactive) s/p infection of wound DVT prophylaxis (Inactive) DVT, lower extremity (Inactive) on coumadin 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 GERD (gastroesophageal reflux disease) (Inactive) HCAP (healthcare-associated pneumonia) (Inactive) 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) (Inactive) Hepatitis C (Inactive) Hx of deep venous thrombosis (Inactive) on Coumadin Hypertension (Inactive) Hypomagnesemia (Inactive) Intractable hiccups (Inactive) Lactic acidosis (Inactive) MSSA (methicillin susceptible Staphylococcus aureus) septicemia (Inactive) Obstructive sleep apnea (Inactive) Opiate dependence (Inactive) managed on suboxone Osteomyelitis of left fibula (Inactive) Right rotator cuff tear (Inactive) Sepsis (Inactive) Sinus pause (Inactive) Sinus tachycardia (Inactive) Smoker (Inactive) Splenic abscess (Inactive) Streptococcus pneumoniae infection (Inactive) Tinea corporis (Inactive) Wound of left ankle (Inactive) Surgical History H/O aortic valve replacement (Inactive) Pericardial aortic valve at [facility] - 08/21/2018 - Magna Ease 25 mm History of ankle surgery (Acute) S/P hardware removal (Inactive) L ankle. S/P percutaneous endoscopic gastrostomy (PEG) tube placement (Acute) S/P spinal surgery (Acute) Family History Father Heart disease in his 50's. Mother COPD (chronic obstructive pulmonary disease) Social History (Updated 03/24/19 @ 20:09 by John Singh) Smoking/Tobacco Use Status: Current every day Tobacco Type: cigarettes Alcohol Intake: never Drug use: Current Sobriety Caregiver/Support person: Yes Household members: spouse current occupation: Disabled Current gender identity: male Do you feel safe in your relationship?: Yes Additional Social history: Lives in [place] with his ex-, Arline Vanegas, who helps care for him. He confirms last tobacco, alcohol, or drugs was before May 2018. Meds Home Medications and Allergies Home Medications Medication Instructions Recorded Confirmed Type albuterol sulfate [Ventolin HFA] 2 puff INHALATION Q2H PRN PRN #1 12/04/16 03/24/19 Rx inh acetaminophen [Tylenol] 650 mg PO Q4H PRN PRN #0 tab 08/08/18 03/24/19 Rx docusate sodium [Colace] 100 mg PO BID #0 cap 08/08/18 03/24/19 Rx insulin aspart U-100 [Novolog 0 units SUBCUT 0800,1200,1700 #0 ml 08/08/18 03/24/19 Rx Flexpen U-100 Insulin] levetiracetam [Keppra] 500 mg PO BID #0 tab 08/08/18 03/24/19 Rx magnesium hydroxide [Milk of 30 ml PO DAILY PRN PRN #0 ml 08/08/18 03/24/19 Rx Magnesia] melatonin 6 mg PO HS #0 tab 08/08/18 02/16/19 Rx pantoprazole 40 mg PO DAILY@0730 #0 tab 08/08/18 03/24/19 Rx warfarin 2.5 mg tablet See Rx Instructions .ROUTE .COMPLEX 09/27/18 03/24/19 History warfarin 5 mg tablet 5 mg PO DAILY 09/27/18 03/24/19 History bisacodyl 5 mg tablet,delayed 5 mg PO ONCE #4 tab 01/25/19 03/24/19 Rx release polyethylene glycol 3350 17 gram 255 g PO DAILY #15 each 01/25/19 02/16/19 Rx oral powder packet Flovent HFA 2 puff INHALATION BID 02/15/19 03/24/19 History acetaminophen [Tylenol Extra 500 mg PO Q6H PRN 02/15/19 03/24/19 History Strength] albuterol sulfate [ProAir HFA] 2 puff INHALATION Q4H PRN 02/15/19 03/24/19 History aspirin 81 mg PO DAILY 02/15/19 03/24/19 History ferrous gluconate 324 mg PO BID 02/15/19 02/16/19 History furosemide [Lasix] 40 mg PO DAILY 02/15/19 03/24/19 History gabapentin 300 mg PO TID 02/15/19 03/24/19 History metformin 1,000 mg PO DAILY 02/15/19 03/24/19 History polyethylene glycol 3350 [Miralax] 17 g PO DAILY 02/15/19 02/16/19 History insulin glargine [Lantus Solostar 40 units SUBCUT HS #1 ml 02/21/19 03/24/19 Rx U-100 Insulin] lisinopril 20 mg PO DAILY #30 tab 02/21/19 03/24/19 Rx nicotine 21 mg TRANSDERMAL DAILY PRN PRN 02/21/19 03/24/19 Rx #30 ea buprenorphine-naloxone [Suboxone] See Rx Instructions .ROUTE .COMPLEX 03/24/19 History duloxetine [Cymbalta] 30 mg PO BID 03/24/19 03/24/19 History insulin lispro [Humalog U-100 See Rx Instructions .ROUTE .COMPLEX 03/24/19 03/24/19 History Insulin] Allergies Allergy/AdvReac Type Severity Reaction Status Date / Time Penicillins AdvReac Severe Vomiting Verified 03/24/19 17:04 hydrocodone AdvReac Intermediate vomiting Verified 03/24/19 17:04 Exam Narrative Exam Narrative: General: Pale, with a weak voice, unable to sit up in bed, but alert and responsive to questioning. Oriented x3. HEENT: Normocephalic atraumatic. Conjunctive are clear, no icterus. Pupils 3 mm in room light bilaterally, reactive, extraocular motion intact. No bleeding from nose or elsewhere. Mucous membranes dry, oropharynx benign no lesions. Neck is supple with no lymphadenopathy or other masses, nontender. Lungs: Clear to auscultation bilaterally with no increased work of breathing. Cardiovascular: Regular rate and rhythm, no murmurs gallops or rubs. Feet cool bilaterally with delayed cap refill Abdomen: Active bowel sounds. Soft, no hepatosplenomegaly or other masses to palpation or percussion. Nontender to palpation. Extremities: Feet look slightly dusky. No clubbing. Trace bilateral edema around the ankles. Neurologic: Cranial nerves II through XII grossly intact. Moving 4 extremities, but diminished strength in right arm and leg. No tremor. Skin: Some bruising noted on the abdomen, but not marked. No other rash. Bandage over wound in left lateral ankle clean dry and intact, no discharge. Psychiatric: Mood and affect normal. Results EKG: Sinus rhythm, occasional PAC. No ischemic changes. Chest x-ray: Cardiomegaly. No evidence of active pulmonary disease. Labs Result diagrams: 03/24/19 16:56 03/24/19 17:50 Labs: Laboratory Results - last 24 hr 03/24/19 03/24/19 03/24/19 16:56 16:56 16:56 WBC 20.31 H RBC 1.97 L Hgb 5.9 L* Hct 18.6 L* MCV 94.4 MCH 29.9 MCHC 31.7 L RDW 16.7 H Plt Count 430 H MPV 9.7 Immature Gran % 0.7 Neutrophils % 80.3 Lymphocytes % 10.1 Monocytes % 8.4 Eosinophils % 0.3 Basophils % 0.2 Absolute Neutrophils 16.31 H Absolute Lymphocytes 2.05 Absolute Monocytes 1.71 H Absolute Eosinophils 0.06 Absolute Basophils 0.04 Differential Comment Agrees w/ instrument RBC Morphology See below Polychromasia Present Hypochromasia 2+ Basophilic Stippling 2+ Anisocytosis 2+ Macrocytosis 2+ PT 59.1 H INR 6.2 H* APTT 53.0 H Sodium Cancelled Potassium Cancelled Chloride Cancelled Carbon Dioxide Cancelled Anion Gap Cancelled BUN Cancelled Creatinine Cancelled Estimated GFR/1.73 m2 Cancelled Glucose Cancelled Lactate Calcium Cancelled Magnesium Cancelled Total Bilirubin Cancelled AST Cancelled ALT Cancelled Alkaline Phosphatase Cancelled Troponin I Cancelled Total Protein Cancelled Albumin Cancelled Lipase Cancelled Patient ABO/Rh Antibody Screen Crossmatch 03/24/19 03/24/19 03/24/19 17:50 17:50 17:50 WBC RBC Hgb Hct MCV MCH MCHC RDW Plt Count MPV Immature Gran % Neutrophils % Lymphocytes % Monocytes % Eosinophils % Basophils % Absolute Neutrophils Absolute Lymphocytes Absolute Monocytes Absolute Eosinophils Absolute Basophils Differential Comment RBC Morphology Polychromasia Hypochromasia Basophilic Stippling Anisocytosis Macrocytosis PT INR APTT Sodium 140 Potassium 5.3 H Chloride 106 Carbon Dioxide 22.9 Anion Gap 11.1 H BUN 90 H* Creatinine 2.48 H Estimated GFR/1.73 m2 27.40 Glucose 211 H Lactate 2.9 H* Calcium 7.4 L Magnesium 2.3 Total Bilirubin 0.1 L AST 10 L ALT 10 L Alkaline Phosphatase 48 Troponin I < 0.05 Total Protein 5.5 L Albumin 2.5 L Lipase 79 Patient ABO/Rh A Positive Antibody Screen Negative Crossmatch See Detail Last Vital Signs Pulse 98 H 03/24/19 19:01 Resp 16 03/24/19 19:02 BP 103/59 L 03/24/19 19:01 Pulse Ox 100 03/24/19 19:02
[2019-03-24] MEDS: Lidocaine 2% Jelly 6 ML SYR (20:45)
[2019-03-24] MEDS: Buprenorphine/Naloxone 8 mg/2 mg FILM 0.5 EACH SL (21:55)
[2019-03-24 21:59] LABS: HGB 6.5 g/dL (13.5-17.5)
[2019-03-24 22:00] LABS: HCT 19.6 % (40.0-50.0)
[2019-03-24] MEDS: PANTOPRAZOLE 80 MG in Normal Saline 100 ML 10 MG IV (23:37)
[2019-03-25] VITALS (144 sets, daily range): BP systolic 82–132; BP diastolic 31–84; PULSE 83–106; RESP 10–28; TEMP 36.2–37.3; O2SAT 2–100
[2019-03-25] MEDS: diphenhydrAMINE 50 MG/ML VIAL IVP (00:04)
[2019-03-25] MEDS: Normal Saline 1,000 ML 200 ML IV ×2 (00:13→05:13)
[2019-03-25 08:09] LABS: Mean Corp. HGB Concentration 33.5 g/dL (32.0-36.0); Mean Corpuscular Hemoglobin 31.2 pg (27.0-33.0); Mean Corpuscular Volume 93.1 fL (80-95); Mean Platelet Volume 8.7 fL (8.0-11.0); Platelet Count 213 x1000/uL (130-400); RBC 2.18 m/cumm (4.50-6.00); RBC Distribution Width 15.5 % (11.8-14.1); White Blood Cell Count 10.41 k/cumm (4.4-10.8)
[2019-03-25] MEDS: Buprenorphine/Naloxone 8 mg/2 mg FILM 0.5 EACH SL ×2 (08:16→19:33)
--- NOTE | 2019-03-25 08:24 | W.PM.PROGNOT ---
Date of Service Date of service: 03/25/19 Time of Service: 10:26 Assessment and Plan Assessment and plan (1) Acute gastrointestinal bleeding: Status: Acute Assessment and plan: The patient initially presented in hemorrhagic shock. He is hemodynamically better now, but he is still having symptomatic anemia and is being monitored in ICU. Likely upper, in setting of therapy with asa and coumadin with supratherapeutic INR on presenation. H/H improved only modestly after 4 units of pRBC's (6.8 from 5.9), though there is no gross bleeding reported overnight. There is likely a dilutional component. Continue IV protonix. Keep NPO while awaiting EGD - verifying time. Transfusing 2 units pRBCs today. Hold asa, coumadin. Will find out whether or not the patient still needs coumadin - repeating venous dopplers. Asa is being d/c'ed indefinitely - per [facility] [place], the patient is not supposed to be on it. Keep in ICU. (2) Symptomatic anemia: Status: Acute Assessment and plan: As above - initially presented with hemorrhagic shock (BP's 46/35 and 73/39 initially recorded in ED). His BP's have now improved post-transfusions, but the patient is still diaphoretic and dizzy while laying flat - I expect that he is, in fact, orthostatic, and would not try to sit him up right now. Continue to monitor serial H/Hs, transfuse as needed. Control bleeding - for EGD later today. (3) Anemia due to acute blood loss: Status: Acute Assessment and plan: As above (4) Hemorrhagic shock: Status: Resolved Assessment and plan: As above (5) Supratherapeutic INR: Status: Acute Assessment and plan: Secondary to warfarin use.. s/p transfusion of 4 units of FFP and PO and IV vitamin K. Continue to hold anticoagulation. Today's INR is 1.2, down from 6.2. We will check his venous dopplers of LE's to ensure the patient still needs to be on anticoagulation. If dopplers negative, the patient's coumadin would be d/c'ed indefinitely on discharge. (6) Acute kidney injury: Status: Acute Assessment and plan: Secondary to hypovolemia/hemorrhagic shock. Improving with transfusions/volume repletion. Continue to monitor I/O, daily weights, INR, and replace blood according to numbers. (7) Hyperkalemia: Status: Resolved Assessment and plan: In setting of ERICK and being on lisinopril. Continue to hold lisinopril and treat ERICK as above. (8) Chest pain with low risk for cardiac etiology: Status: Acute Assessment and plan: Chest pain in setting of symptomatic anemia. No evidence of ACS/arrhythmias at this time - will recheck EKG post-transfusion. (9) Opiate dependence: Status: Acute Assessment and plan: Continue suboxone (10) Hypertension: Status: Acute Assessment and plan: Holding outpatient blood pressure medications as above. (11) Aortic insufficiency: Status: Acute Assessment and plan: Status post bioprosthetic aortic valve replacement. Most recent echocardiogram January 2018 showed a normal ejection fraction of 55 to 60%, and no signs of endocarditis, and a well functioning bioprosthetic valve. He does not need to be anticoagulated for the valve, and there is no indication for asa, so it is being d/c'ed. (12) Diabetes mellitus: Status: Acute Assessment and plan: Rechecking A1C in setting of acute bleeding and blood transfusion would be inaccurate. Continue half-dose of levemir and SSI Q6H while NPO. (13) Hx of deep venous thrombosis: Status: Acute Assessment and plan: Recheck venous dopplers. If no longer has a DVT, anticoagulation should not be resumed. (14) Discharge planning issues: Status: Acute Assessment and plan: Full code. Prognosis cautiously optimistic, but condition remains serious. Will keep in ICU. Total Critical Care Time 70 minutes. Subjective Subjective Interval history since last seen: Does not feel well this morning - specifically, he is dizzy and diaphoretic while lying flat. BP's in low 100's, HR in low 100's. Denies chest pain, palpitations, nausea, abdominal pain. No bleeding since last night. s/p 4 units of pRBC's and 4 bags of FFP + 1 L bolus in ICU. Receiving 2 more units now. Remains on protonix gtt. Planned for EGD later today. Exam Narrative Exam Narrative: General: pale obese male, visibly diaphoretic, A&Ox3, dysarthria (his baseline) HEENT: EOMI, MMM Heart: RRR, no obvious murmur Lungs: CTAB Abdomen: soft, nontender, nondistended Extremities: trace edema BLE's Objective Objective Clinical Data: Abnormal lab results 03/24/19 03/24/19 03/24/19 Range/Units 16:56 16:56 17:50 WBC 20.31 H (4.4-10.8) k/cumm RBC 1.97 L (4.50-6.00) m/cumm Hgb 5.9 L* (13.5-17.5) g/dL Hct 18.6 L* (40.0-50.0) % MCHC 31.7 L (32.0-36.0) g/dL RDW 16.7 H (11.8-14.1) % Plt Count 430 H (130-400) x1000/uL Absolute Neutrophils 16.31 H (1.2-6.7) k/cumm Absolute Monocytes 1.71 H (0.11-0.7) k/cumm PT 59.1 H (9.3-11.0) sec INR 6.2 H* (0.9-1.1) APTT 53.0 H (21.0-31.4) sec Potassium (3.5-5.1) mmol/L Anion Gap (3-11) mmol/L BUN (7-18) mg/dL Creatinine (0.70-1.30) mg/dL Glucose (74-106) mg/dL Lactate (0.6-1.4) mmol/L Calcium (8.5-10.1) mg/dL Total Bilirubin (0.2-1.0) mg/dL AST (15-37) U/L ALT (16-63) U/L Total Protein (6.4-8.2) g/dL Albumin (3.4-5.0) g/dL Crossmatch See Detail 03/24/19 03/24/19 03/24/19 Range/Units 17:50 17:50 21:45 WBC (4.4-10.8) k/cumm RBC (4.50-6.00) m/cumm Hgb 6.5 L* (13.5-17.5) g/dL Hct 19.6 L* (40.0-50.0) % MCHC (32.0-36.0) g/dL RDW (11.8-14.1) % Plt Count (130-400) x1000/uL Absolute Neutrophils (1.2-6.7) k/cumm Absolute Monocytes (0.11-0.7) k/cumm PT (9.3-11.0) sec INR (0.9-1.1) APTT (21.0-31.4) sec Potassium 5.3 H (3.5-5.1) mmol/L Anion Gap 11.1 H (3-11) mmol/L BUN 90 H* (7-18) mg/dL Creatinine 2.48 H (0.70-1.30) mg/dL Glucose 211 H (74-106) mg/dL Lactate 2.9 H* (0.6-1.4) mmol/L Calcium 7.4 L (8.5-10.1) mg/dL Total Bilirubin 0.1 L (0.2-1.0) mg/dL AST 10 L (15-37) U/L ALT 10 L (16-63) U/L Total Protein 5.5 L (6.4-8.2) g/dL Albumin 2.5 L (3.4-5.0) g/dL Crossmatch Vital Signs Temperature 36.8 C 03/25/19 05:45 Temperature Source Temporal Artery Scan 03/24/19 20:15 Pulse 90 03/25/19 08:00 Pulse 97 H 03/25/19 08:00 Respiratory Rate 15 03/25/19 08:00 Respiratory Effort 03/25/19 04:58 Respiratory Depth Normal 03/25/19 04:58 Respiratory Pattern Normal 03/25/19 04:58 Blood Pressure 100/45 L 03/25/19 08:00 Blood Pressure Mean 58 03/25/19 08:00 Blood Pressure Position Supine 03/25/19 04:58 Pulse Oximetry 95 03/25/19 08:00 Oxygen Delivery Method Nasal Cannula 03/25/19 05:45 Oxygen Flow Rate 2 03/25/19 05:45 Pain Level 0 03/25/19 04:58 Intake & Output 03/24/19 03/24/19 03/25/19 11:59 23:59 11:59 Intake Total 4160 / 4160 2450 / 2450 Output Total 1550 / 1550 750 / 750 Balance 2610 / 2610 1700 / 1700 Weight 111 kg Intake: IV 3000 / 3000 1000 / 1000 Blood Product 830 / 830 729 / 729 Frozen Plasma Unit 270 / 270 [id number] Frozen Plasma Unit 310 / 310 [id number] Frozen Plasma Unit 250 / 250 [id number] Frozen Plasma Unit 129 / 129 [id number] Rbc Leuko Reduced Unit 350 / 350 [id number] Rbc Leuko Reduced Unit 250 / 250 [id number] Other 330 / 330 721 / 721 Frozen Plasma Unit 280 / 280 [id number] Frozen Plasma Unit 50 / 50 [id number] Frozen Plasma Unit 171 / 171 [id number] Rbc Leuko Reduced Unit 150 / 150 [id number] Rbc Leuko Reduced Unit 400 / 400 [id number] Output: Urine 1550 / 1550 750 / 750 Other: Urine Color Pale Pale Yellow Yellow Urine Appearance Clear Clear Cloudy Emesis Description Retching Laboratory Results WBC 20.31 k/cumm (4.4-10.8) H 03/24/19 16:56 RBC 1.97 m/cumm (4.50-6.00) L 03/24/19 16:56 Hgb 6.5 g/dL (13.5-17.5) L* 03/24/19 21:45 Hct 19.6 % (40.0-50.0) L* 03/24/19 21:45 MCV 94.4 fL (80-95) 03/24/19 16:56 MCH 29.9 pg (27.0-33.0) 03/24/19 16:56 MCHC 31.7 g/dL (32.0-36.0) L 03/24/19 16:56 RDW 16.7 % (11.8-14.1) H 03/24/19 16:56 Plt Count 430 x1000/uL (130-400) H 03/24/19 16:56 MPV 9.7 fL (8.0-11.0) 03/24/19 16:56 Immature Gran % 0.7 % 03/24/19 16:56 Neutrophils % 80.3 03/24/19 16:56 Lymphocytes % 10.1 03/24/19 16:56 Monocytes % 8.4 03/24/19 16:56 Eosinophils % 0.3 03/24/19 16:56 Basophils % 0.2 03/24/19 16:56 Absolute Neutrophils 16.31 k/cumm (1.2-6.7) H 03/24/19 16:56 Absolute Lymphocytes 2.05 k/cumm (1.2-3.4) 03/24/19 16:56 Absolute Monocytes 1.71 k/cumm (0.11-0.7) H 03/24/19 16:56 Absolute Eosinophils 0.06 k/cumm (0.0-0.7) 03/24/19 16:56 Absolute Basophils 0.04 k/cumm (0.0-0.2) 03/24/19 16:56 Differential Comment Agrees w/ instrument 03/24/19 16:56 RBC Morphology See below 03/24/19 16:56 Polychromasia Present 03/24/19 16:56 Hypochromasia 2+ 03/24/19 16:56 Basophilic Stippling 2+ 03/24/19 16:56 Anisocytosis 2+ 03/24/19 16:56 Macrocytosis 2+ 03/24/19 16:56 PT 59.1 sec (9.3-11.0) H 03/24/19 16:56 INR 6.2 (0.9-1.1) H* 03/24/19 16:56 APTT 53.0 sec (21.0-31.4) H 03/24/19 16:56 Sodium 140 mmol/L (136-145) 03/24/19 17:50 Potassium 5.3 mmol/L (3.5-5.1) H 03/24/19 17:50 Chloride 106 mmol/L (98-107) 03/24/19 17:50 Carbon Dioxide 22.9 mmol/L (21.0-32.0) 03/24/19 17:50 Anion Gap 11.1 mmol/L (3-11) H 03/24/19 17:50 BUN 90 mg/dL (7-18) H* 03/24/19 17:50 Creatinine 2.48 mg/dL (0.70-1.30) H 03/24/19 17:50 Estimated GFR/1.73 m2 27.40 (mL/min/1.73m2) 03/24/19 17:50 Glucose 211 mg/dL (74-106) H 03/24/19 17:50 Lactate 2.9 mmol/L (0.6-1.4) H* 03/24/19 17:50 Calcium 7.4 mg/dL (8.5-10.1) L 03/24/19 17:50 Magnesium 2.3 mg/dL (1.8-2.4) 03/24/19 17:50 Total Bilirubin 0.1 mg/dL (0.2-1.0) L 03/24/19 17:50 AST 10 U/L (15-37) L 03/24/19 17:50 ALT 10 U/L (16-63) L 03/24/19 17:50 Alkaline Phosphatase 48 U/L (46-116) 03/24/19 17:50 Troponin I < 0.05 ng/Ml (<0.06) 03/24/19 17:50 Total Protein 5.5 g/dL (6.4-8.2) L 03/24/19 17:50 Albumin 2.5 g/dL (3.4-5.0) L 03/24/19 17:50 Lipase 79 U/L (73-393) 03/24/19 17:50 Patient ABO/Rh A Positive 03/24/19 17:50 Antibody Screen Negative 03/24/19 17:50 Crossmatch See Detail 03/24/19 17:50
[2019-03-25 08:25] LABS: HGB 6.8 g/dL (13.5-17.5)
[2019-03-25 08:26] LABS: HCT 20.3 % (40.0-50.0)
[2019-03-25 08:30] LABS: ALT 11 U/L (16-63); AST 12 U/L (15-37); Albumin 2.3 g/dL (3.4-5.0); Alkaline Phosphatase 47 U/L (46-116); BUN 63 mg/dL (7-18); Bilirubin, Total 0.3 mg/dL (0.2-1.0); CREATININE 1.63 mg/dL (0.70-1.30); Calcium 7.4 mg/dL (8.5-10.1); Chloride 113 mmol/L (98-107); Estimated GFR 44.48 (mL/min/1.73m2); Glucose 175 mg/dL (74-106); Potassium 4.8 mmol/L (3.5-5.1); Sodium 146 mmol/L (136-145); Total Protein 5.2 g/dL (6.4-8.2)
[2019-03-25] MEDS: PANTOPRAZOLE 80 MG in Normal Saline 100 ML 10 MG IV (08:36)
[2019-03-25] MEDS: Insulin Aspart 300 UNITS/3 ML PEN SC ×3 (08:36→18:34)
[2019-03-25 08:50] LABS: INR 1.2 (0.9-1.1); Prothrombin Time 12.2 sec (9.3-11.0)
--- NOTE | 2019-03-25 08:56 | W.PM.PROGNOT ---
Date of Service Date of service: 03/25/19 Time of Service: 08:56 Assessment and Plan Assessment and plan (1) Acute gastrointestinal bleeding: Status: Acute Assessment and plan: He does not have signs of ongoing bleeding. Will plan for EGD in the next day or two pending anesthesia evaluation. HgB still low at 6.8, 2 units have been ordered for this am. He has received 4 units PRBC and 4U FFP. Subjective Subjective Interval history since last seen: Patient denies abdominal pain. No hematemesis or black stools since admission. States his chest feels heavy but no chest pain. Had an EGD done for his PEG placement but denies prior history of ulcer. Exam Narrative Exam Narrative: Sleepy but appropriate. Lungs CTA Heart regular, slightly tachy Abdomen soft, nontender. Objective Objective Clinical Data: Abnormal lab results 03/24/19 03/24/19 03/24/19 Range/Units 16:56 16:56 17:50 WBC 20.31 H (4.4-10.8) k/cumm RBC 1.97 L (4.50-6.00) m/cumm Hgb 5.9 L* (13.5-17.5) g/dL Hct 18.6 L* (40.0-50.0) % MCHC 31.7 L (32.0-36.0) g/dL RDW 16.7 H (11.8-14.1) % Plt Count 430 H (130-400) x1000/uL Absolute Neutrophils 16.31 H (1.2-6.7) k/cumm Absolute Monocytes 1.71 H (0.11-0.7) k/cumm PT 59.1 H (9.3-11.0) sec INR 6.2 H* (0.9-1.1) APTT 53.0 H (21.0-31.4) sec Sodium (136-145) mmol/L Potassium (3.5-5.1) mmol/L Chloride (98-107) mmol/L Anion Gap (3-11) mmol/L BUN (7-18) mg/dL Creatinine (0.70-1.30) mg/dL Glucose (74-106) mg/dL Lactate (0.6-1.4) mmol/L Calcium (8.5-10.1) mg/dL Total Bilirubin (0.2-1.0) mg/dL AST (15-37) U/L ALT (16-63) U/L Total Protein (6.4-8.2) g/dL Albumin (3.4-5.0) g/dL Crossmatch See Detail 03/24/19 03/24/19 03/24/19 Range/Units 17:50 17:50 21:45 WBC (4.4-10.8) k/cumm RBC (4.50-6.00) m/cumm Hgb 6.5 L* (13.5-17.5) g/dL Hct 19.6 L* (40.0-50.0) % MCHC (32.0-36.0) g/dL RDW (11.8-14.1) % Plt Count (130-400) x1000/uL Absolute Neutrophils (1.2-6.7) k/cumm Absolute Monocytes (0.11-0.7) k/cumm PT (9.3-11.0) sec INR (0.9-1.1) APTT (21.0-31.4) sec Sodium (136-145) mmol/L Potassium 5.3 H (3.5-5.1) mmol/L Chloride (98-107) mmol/L Anion Gap 11.1 H (3-11) mmol/L BUN 90 H* (7-18) mg/dL Creatinine 2.48 H (0.70-1.30) mg/dL Glucose 211 H (74-106) mg/dL Lactate 2.9 H* (0.6-1.4) mmol/L Calcium 7.4 L (8.5-10.1) mg/dL Total Bilirubin 0.1 L (0.2-1.0) mg/dL AST 10 L (15-37) U/L ALT 10 L (16-63) U/L Total Protein 5.5 L (6.4-8.2) g/dL Albumin 2.5 L (3.4-5.0) g/dL Crossmatch 03/25/19 03/25/19 Range/Units 08:03 08:03 WBC (4.4-10.8) k/cumm RBC 2.18 L (4.50-6.00) m/cumm Hgb 6.8 L* (13.5-17.5) g/dL Hct 20.3 L* (40.0-50.0) % MCHC (32.0-36.0) g/dL RDW 15.5 H (11.8-14.1) % Plt Count (130-400) x1000/uL Absolute Neutrophils (1.2-6.7) k/cumm Absolute Monocytes (0.11-0.7) k/cumm PT (9.3-11.0) sec INR (0.9-1.1) APTT (21.0-31.4) sec Sodium 146 H (136-145) mmol/L Potassium (3.5-5.1) mmol/L Chloride 113 H (98-107) mmol/L Anion Gap (3-11) mmol/L BUN 63 H D (7-18) mg/dL Creatinine 1.63 H D (0.70-1.30) mg/dL Glucose 175 H (74-106) mg/dL Lactate (0.6-1.4) mmol/L Calcium 7.4 L (8.5-10.1) mg/dL Total Bilirubin (0.2-1.0) mg/dL AST 12 L (15-37) U/L ALT 11 L (16-63) U/L Total Protein 5.2 L (6.4-8.2) g/dL Albumin 2.3 L (3.4-5.0) g/dL Crossmatch Vital Signs Temperature 98.2 F 03/25/19 05:45 Temperature Source Temporal Artery Scan 03/24/19 20:15 Pulse 90 03/25/19 08:00 Pulse 97 H 03/25/19 08:00 Respiratory Rate 15 03/25/19 08:00 Respiratory Effort 03/25/19 04:58 Respiratory Depth Normal 03/25/19 04:58 Respiratory Pattern Normal 03/25/19 04:58 Blood Pressure 100/45 L 03/25/19 08:00 Blood Pressure Mean 58 03/25/19 08:00 Blood Pressure Position Supine 03/25/19 04:58 Pulse Oximetry 95 03/25/19 08:00 Oxygen Delivery Method Nasal Cannula 03/25/19 05:45 Oxygen Flow Rate 2 03/25/19 05:45 Pain Level 0 03/25/19 04:58 Intake & Output 03/24/19 03/24/19 03/25/19 11:59 23:59 11:59 Intake Total 4160 / 4160 2539.833 / 2539.833 Output Total 1550 / 1550 750 / 750 Balance 2610 / 2610 1789.833 / 1789.833 Weight 244 lb 11.41 oz Intake: IV 3000 / 3000 1089.833 / 1089.833 Blood Product 830 / 830 729 / 729 Frozen Plasma Unit 270 / 270 [id number] Frozen Plasma Unit 310 / 310 [id number] Frozen Plasma Unit 250 / 250 [id number] Frozen Plasma Unit 129 / 129 [id number] Rbc Leuko Reduced Unit 350 / 350 [id number] Rbc Leuko Reduced Unit 250 / 250 [id number] Other 330 / 330 721 / 721 Frozen Plasma Unit 280 / 280 [id number] Frozen Plasma Unit 50 / 50 [id number] Frozen Plasma Unit 171 / 171 [id number] Rbc Leuko Reduced Unit 150 / 150 [id number] Rbc Leuko Reduced Unit 400 / 400 [id number] Output: Urine 1550 / 1550 750 / 750 Other: Urine Color Pale Pale Yellow Yellow Urine Appearance Clear Clear Cloudy Emesis Description Retching Laboratory Results WBC 10.41 k/cumm (4.4-10.8) D 03/25/19 08:03 RBC 2.18 m/cumm (4.50-6.00) L 03/25/19 08:03 Hgb 6.8 g/dL (13.5-17.5) L* 03/25/19 08:03 Hct 20.3 % (40.0-50.0) L* 03/25/19 08:03 MCV 93.1 fL (80-95) 03/25/19 08:03 MCH 31.2 pg (27.0-33.0) 03/25/19 08:03 MCHC 33.5 g/dL (32.0-36.0) 03/25/19 08:03 RDW 15.5 % (11.8-14.1) H 03/25/19 08:03 Plt Count 213 x1000/uL (130-400) D 03/25/19 08:03 MPV 8.7 fL (8.0-11.0) 03/25/19 08:03 Immature Gran % 0.7 % 03/24/19 16:56 Neutrophils % 80.3 03/24/19 16:56 Lymphocytes % 10.1 03/24/19 16:56 Monocytes % 8.4 03/24/19 16:56 Eosinophils % 0.3 03/24/19 16:56 Basophils % 0.2 03/24/19 16:56 Absolute Neutrophils 16.31 k/cumm (1.2-6.7) H 03/24/19 16:56 Absolute Lymphocytes 2.05 k/cumm (1.2-3.4) 03/24/19 16:56 Absolute Monocytes 1.71 k/cumm (0.11-0.7) H 03/24/19 16:56 Absolute Eosinophils 0.06 k/cumm (0.0-0.7) 03/24/19 16:56 Absolute Basophils 0.04 k/cumm (0.0-0.2) 03/24/19 16:56 Differential Comment Agrees w/ instrument 03/24/19 16:56 RBC Morphology See below 03/24/19 16:56 Polychromasia Present 03/24/19 16:56 Hypochromasia 2+ 03/24/19 16:56 Basophilic Stippling 2+ 03/24/19 16:56 Anisocytosis 2+ 03/24/19 16:56 Macrocytosis 2+ 03/24/19 16:56 PT 59.1 sec (9.3-11.0) H 03/24/19 16:56 INR 6.2 (0.9-1.1) H* 03/24/19 16:56 APTT 53.0 sec (21.0-31.4) H 03/24/19 16:56 Sodium 146 mmol/L (136-145) H 03/25/19 08:03 Potassium 4.8 mmol/L (3.5-5.1) 03/25/19 08:03 Chloride 113 mmol/L (98-107) H 03/25/19 08:03 Carbon Dioxide 26.0 mmol/L (21.0-32.0) 03/25/19 08:03 Anion Gap 7.0 mmol/L (3-11) 03/25/19 08:03 BUN 63 mg/dL (7-18) H D 03/25/19 08:03 Creatinine 1.63 mg/dL (0.70-1.30) H D 03/25/19 08:03 Estimated GFR/1.73 m2 44.48 (mL/min/1.73m2) 03/25/19 08:03 Glucose 175 mg/dL (74-106) H 03/25/19 08:03 Lactate 2.9 mmol/L (0.6-1.4) H* 03/24/19 17:50 Calcium 7.4 mg/dL (8.5-10.1) L 03/25/19 08:03 Magnesium 2.3 mg/dL (1.8-2.4) 03/24/19 17:50 Total Bilirubin 0.3 mg/dL (0.2-1.0) 03/25/19 08:03 AST 12 U/L (15-37) L 03/25/19 08:03 ALT 11 U/L (16-63) L 03/25/19 08:03 Alkaline Phosphatase 47 U/L (46-116) 03/25/19 08:03 Troponin I < 0.05 ng/Ml (<0.06) 03/24/19 17:50 Total Protein 5.2 g/dL (6.4-8.2) L 03/25/19 08:03 Albumin 2.3 g/dL (3.4-5.0) L 03/25/19 08:03 Lipase 79 U/L (73-393) 03/24/19 17:50 Patient ABO/Rh A Positive 03/24/19 17:50 Antibody Screen Negative 03/24/19 17:50 Crossmatch See Detail 03/24/19 17:50
[2019-03-25] MEDS: Acetaminophen 325 MG TAB 650 MG PO (09:33)
[2019-03-25] MEDS: diphenhydrAMINE 25 MG CAP PO (09:33)
--- NOTE | 2019-03-25 09:51 | INITIAL_ITS ---
- If Service Date Differs Date of service: 03/25/19 Time of Service: 09:51 Care Management Initial Assess REASON FOR HOSPITALIZATION:: Acute GI Bleeding PAST MEDICAL HISTORY/PAST SURGICAL HISTORY:: Medical History . ERICK (acute kidney injury) (Inactive). Aortic insufficiency (Inactive). s/p valve replacement. Aortic valve endocarditis (Inactive). 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 Bronchitis (Inactive). Chest pain with low risk for cardiac etiology (Inactive). Chronic anticoagulation (Acute). Chronic pain (Inactive). Community acquired pneumonia (Inactive). Depression (Inactive). Diabetes mellitus (Inactive). Discharge planning issues (Inactive). Displaced bimalleolar fracture of left ankle (Inactive). s/p infection of wound. DVT prophylaxis (Inactive). DVT, lower extremity (Inactive). on coumadin. 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 Endocarditis (Acute). Flash pulmonary edema (Inactive). G tube feedings (Acute). Per referral form Zach Sanders 09/18/[address] [facility] for endocarditis, no longer using. GERD (gastroesophageal reflux disease) (Inactive). HCAP (healthcare-associated pneumonia) (Inactive). 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) (Inactive). Hepatitis C (Inactive). Hx of deep venous thrombosis (Inactive). on Coumadin. Hypertension (Inactive). Hypomagnesemia (Inactive). Intractable hiccups (Inactive). Lactic acidosis (Inactive). MSSA (methicillin susceptible Staphylococcus aureus) septicemia (Inactive). Obstructive sleep apnea (Inactive). Opiate dependence (Inactive). managed on suboxone. Osteomyelitis of left fibula (Inactive). Right rotator cuff tear (Inactive). Sepsis (Inactive). Sinus pause (Inactive). Sinus tachycardia (Inactive). Smoker (Inactive). Splenic abscess (Inactive). Streptococcus pneumoniae infection (Inactive). Tinea corporis (Inactive). Wound of left ankle (Inactive). Surgical History . H/O aortic valve replacement (Inactive). Pericardial aortic valve at [facility] - 08/21/2018 - Magna Ease 25 mm. History of ankle surgery (Acute). S/P hardware removal (Inactive). L ankle. S/P percutaneous endoscopic gastrostomy (PEG) tube placement (Acute). S/P spinal surgery (Acute) PREVIOUS FUNCTIONAL STATUS/SOCIAL/FAMILY SUPPORTS:: Mio lives in [place] with his ex-, Rekha, who is identified as his main support. He has not worked for many years due to chronic illnesses. He has an adult daughter, Xochitl, who has two children. He also has a twelve year old son at home, Adriel. 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 He is very thankful to be alive, despite now having deficits. His helps him with his ADL's. CURRENT FUNCTIONAL STATUS:: Mio was sleeping when CM came to see him. His ex- Rekha was there and shared information with CM. She states that Mio has HH services twice a week and that her daughter id a paid caregiver for an additional 40 hours per week. Mio has [facility]. ADVANCE DIRECTIVES:: Rekha states that he has completed and that Dr. Sanders's office has a copy. Has patient been provided with information about the portal?: No Did the patient sign up for the portal?: No CODE STATUS:: Full Code INSURANCE COVERAGE / FINANCIAL ISSUES:: [employer] CURRENT HOME/COMMUNITY SERVICES/EQUIPMENT:: Mio has a walker, cane and wheelchair. He has [facility] twice a week and caregivers daily. PRIMARY CARE PHYSICIAN:: Zach Sanders POTENTIAL DISCHARGE NEEDS:: Follow up with PCP and discharge plan of care PATIENT/FAMILY EDUCATION NEEDS:: Discharge plan, follow up, limitations, Ask Me Three TRANSPORTATION:: via private vehicle with family PLAN:: Mio will be discharged home with a resumption of services, including home health and caregivers. He will transport via private vehicle with his family and follow up with his PCP and discharge plan of care. CM will continue to support patirnt, family and discharge planning needs.
[2019-03-25] MEDS: Lactated Ringers 1,000 ML 30 ML IV (13:12)
--- NOTE | 2019-03-25 13:28 | W.NUTCONSULT ---
Date of service: 03/25/19 Time of Service: 13:28 Nutritional Consult ASSESSMENT: 53 year old male admitted with GI bleed, received 4 units of blood . PMH: DM2, HTN, and class 1 obesity. Currently NPO for procedure. DM consult pending. Will be available as needed. NUTRITIONAL DIAGNOSIS: anemia MONITORING AND EVALUATION: diet, po intake, labs Time Spent in Nutritional Counseling and Treatment: 0 time spent face to face
[2019-03-25] MEDS: EPINEPHrine 1 MG/10 ML SYR (13:44)
--- NOTE | 2019-03-25 13:54 | STOM_PTH ---
PATIENT: Mio Parra LOC: U#:[id number] AGE/SX: 53/M ROOM: 214 RE03/24/[address]: Little Akers : 1965 BED: A DIS: 03/28/2019 SPEC #: [id number] RECD: 03/25/19 16:55 STATUS: CRISTINO REQ #: [id number] JUNITO: 03/25/19 13:[address]: John Singh DEPT: Surgical Specimen RECD BY: Isabel Fong ENTERED: 03/25/19 16:57 SP TYPE: STOMACH OTHR DR: Zach Sanders Laura M In[facility] Dan Wyand Tissues: 1 - STOMACH BIOPSY 2 - ESOPHAGUS BIOPSY Procedures: GROSS AND MICRO LEVEL 4 Comments: [id number]
[2019-03-25] MEDS: Normal Saline Flush 10 ML SYR IVP (14:28)
--- NOTE | 2019-03-25 15:52 | PT.INNT ---
Date of service: 03/25/19 Time of Service: 15:53 PT Notes Visit Reasons: ACUTE GI BLEEDING, ACUTE ANEMIA, SUPRATHERAPEUTIC Hgb as of this morning still at 6.8 (afternoon Hgb still pending) which would preclude mobility assessment. Also, patient just got back from EGD procedure and is still mildly sedated. PT is in agreement with nurse Martinez who suggested attempting evaluation tomorrow morning may be a safer option. Patient will be seen for PT evaluation tomorrow morning as ordered. Thank you very much for this referral. Zunilda Zapata PT, DPT, CLT [facility]
[2019-03-25 16:15] LABS: HCT 27.3 % (40.0-50.0)
[2019-03-25 16:32] LABS: Troponin I < 0.05 ng/Ml (<0.06)
[2019-03-25] MEDS: Normal Saline 1,000 ML 150 ML IV (21:31)
[2019-03-25] MEDS: Insulin Glargine 300 UNITS/3 ML PEN 20 UNITS SC (21:55)
[2019-03-26] VITALS (71 sets, daily range): BP systolic 111–152; BP diastolic 35–85; PULSE 79–121; RESP 11–31; TEMP 36.5–37.7; O2SAT 1–98
[2019-03-26] MEDS: Insulin Aspart 300 UNITS/3 ML PEN SC ×4 (00:13→22:19)
[2019-03-26] MEDS: PANTOPRAZOLE 80 MG in Normal Saline 100 ML 10 MG IV ×2 (01:39→11:28)
[2019-03-26] MEDS: Normal Saline 1,000 ML 150 ML IV (06:30)
[2019-03-26 06:44] LABS: Abs Immature Grans 0.08 k/cumm (0.0-0.09); Absolute Basophil Count 0.01 k/cumm (0.0-0.2); Absolute Lymphocyte Count 1.52 k/cumm (1.2-3.4); Absolute Monocyte Count 1.12 k/cumm (0.11-0.7); Absolute Neutrophil Count 9.66 k/cumm (1.2-6.7); Basophils % 0.1; HCT 26.3 % (40.0-50.0); HGB 8.3 g/dL (13.5-17.5); Immature Grans % 0.6 %; Lymphocytes % 12.3; Mean Corp. HGB Concentration 31.6 g/dL (32.0-36.0); Mean Corpuscular Hemoglobin 29.7 pg (27.0-33.0); Mean Corpuscular Volume 94.3 fL (80-95); Mean Platelet Volume 9.1 fL (8.0-11.0); Platelet Count 256 x1000/uL (130-400); RBC 2.79 m/cumm (4.50-6.00); RBC Distribution Width 15.9 % (11.8-14.1); White Blood Cell Count 12.39 k/cumm (4.4-10.8)
[2019-03-26 06:47] LABS: INR 1.1 (0.9-1.1); Prothrombin Time 11.5 sec (9.3-11.0)
[2019-03-26 06:53] LABS: ALT 11 U/L (16-63); AST 9 U/L (15-37); Albumin 2.6 g/dL (3.4-5.0); Alkaline Phosphatase 53 U/L (46-116); Anion Gap 7.7 mmol/L (3-11); BUN 31 mg/dL (7-18); Bilirubin, Total 0.3 mg/dL (0.2-1.0); CO2 26.3 mmol/L (21.0-32.0); CREATININE 1.25 mg/dL (0.70-1.30); Calcium 8.2 mg/dL (8.5-10.1); Chloride 111 mmol/L (98-107); Glucose 145 mg/dL (74-106); Potassium 4.7 mmol/L (3.5-5.1); Sodium 145 mmol/L (136-145); Total Protein 6.3 g/dL (6.4-8.2)
[2019-03-26] MEDS: Mometasone 220 MCG 14 DOSE INHALER IH (07:40)
--- NOTE | 2019-03-26 07:55 | W.PM.PROGNOT ---
Documented by User: [email or web address] Batres 03/26/19 07:57 Date of Service Date of service: 03/26/19 Time of Service: 07:55 Assessment and Plan Assessment and plan (1) Acute gastrointestinal bleeding: Status: Acute Assessment and plan: He does not have signs of ongoing bleeding. EGD was performed yesterday. No BM. Subjective Subjective Interval history since last seen: Patient reports that he is hungry and not feeling well today. (+) flatus over night. No BM. Denies any signs of bleeding. Exam Const General: cooperative and comfortable Orientation: alert and oriented x3 Resp Effort & Inspection: normal respiratory effort, no audible wheezes and no cough GI Palpation: firm, no guarding and nontender Objective Objective Clinical Data: Abnormal lab results 03/24/19 03/25/19 03/25/19 Range/Units 17:50 08:03 08:03 WBC (4.4-10.8) k/cumm RBC 2.18 L (4.50-6.00) m/cumm Hgb 6.8 L* (13.5-17.5) g/dL Hct 20.3 L* (40.0-50.0) % MCHC (32.0-36.0) g/dL RDW 15.5 H (11.8-14.1) % Absolute Neutrophils (1.2-6.7) k/cumm Absolute Monocytes (0.11-0.7) k/cumm PT (9.3-11.0) sec INR (0.9-1.1) Sodium 146 H (136-145) mmol/L Chloride 113 H (98-107) mmol/L BUN 63 H D (7-18) mg/dL Creatinine 1.63 H D (0.70-1.30) mg/dL Glucose 175 H (74-106) mg/dL Calcium 7.4 L (8.5-10.1) mg/dL AST 12 L (15-37) U/L ALT 11 L (16-63) U/L Total Protein 5.2 L (6.4-8.2) g/dL Albumin 2.3 L (3.4-5.0) g/dL Crossmatch See Detail 03/25/19 03/25/19 03/26/19 Range/Units 08:03 14:07 05:59 WBC (4.4-10.8) k/cumm RBC (4.50-6.00) m/cumm Hgb 9.0 L D (13.5-17.5) g/dL Hct 27.3 L D (40.0-50.0) % MCHC (32.0-36.0) g/dL RDW (11.8-14.1) % Absolute Neutrophils (1.2-6.7) k/cumm Absolute Monocytes (0.11-0.7) k/cumm PT 12.2 H D (9.3-11.0) sec INR 1.2 H D (0.9-1.1) Sodium (136-145) mmol/L Chloride 111 H (98-107) mmol/L BUN 31 H D (7-18) mg/dL Creatinine (0.70-1.30) mg/dL Glucose 145 H (74-106) mg/dL Calcium 8.2 L (8.5-10.1) mg/dL AST 9 L (15-37) U/L ALT 11 L (16-63) U/L Total Protein 6.3 L (6.4-8.2) g/dL Albumin 2.6 L (3.4-5.0) g/dL Crossmatch 20 03/26/19 Range/Units 05:59 05:59 WBC 12.39 H (4.4-10.8) k/cumm RBC 2.79 L (4.50-6.00) m/cumm Hgb 8.3 L (13.5-17.5) g/dL Hct 26.3 L (40.0-50.0) % MCHC 31.6 L (32.0-36.0) g/dL RDW 15.9 H (11.8-14.1) % Absolute Neutrophils 9.66 H (1.2-6.7) k/cumm Absolute Monocytes 1.12 H (0.11-0.7) k/cumm PT 11.5 H (9.3-11.0) sec INR (0.9-1.1) Sodium (136-145) mmol/L Chloride (98-107) mmol/L BUN (7-18) mg/dL Creatinine (0.70-1.30) mg/dL Glucose (74-106) mg/dL Calcium (8.5-10.1) mg/dL AST (15-37) U/L ALT (16-63) U/L Total Protein (6.4-8.2) g/dL Albumin (3.4-5.0) g/dL Crossmatch Vital Signs Temperature 36.8 C 03/26/19 05:04 Temperature Source Temporal Artery Scan 03/26/19 05:04 Pulse 85 03/26/19 06:00 Pulse 89 03/26/19 06:15 Respiratory Rate 17 03/26/19 06:15 Respiratory Effort Non-Labored 03/26/19 05:04 Respiratory Depth Normal 03/26/19 05:04 Respiratory Pattern Normal 03/26/19 05:04 Blood Pressure 120/58 L 03/26/19 06:00 Blood Pressure Mean 70 03/26/19 06:00 Blood Pressure Position Supine 03/26/19 05:04 Pulse Oximetry 95 03/26/19 07:41 Oxygen Delivery Method Room Air 03/26/19 07:41 Oxygen Flow Rate 0 03/26/19 07:41 Pain Level 0 03/26/19 05:04 Intake & Output 03/25/19 03/26/19 03/26/19 18:59 06:59 18:59 Intake Total 1889.833 / 3289.833 1400.0 / 3289.833 Output Total 2475 / 5575 3100 / 5575 Balance -585.167 / -2285.167 -1700.0 / -2285.167 Intake: IV 1589.833 / 2989.833 1400.0 / 2989.833 Blood Product 300 / 300 Rbc Leuko Reduced Unit 300 / 300 [id number] Output: Urine 2475 / 5575 3100 / 5575 Other: Urine Color Straw Yellow Urine Appearance Clear Clear Comment Purvis Catheter intact and draining clear yellow urine. Purvis Catheter intact and draining clear yellow urine. Laboratory Results WBC 12.39 k/cumm (4.4-10.8) H 03/26/19 05:59 RBC 2.79 m/cumm (4.50-6.00) L 03/26/19 05:59 Hgb 8.3 g/dL (13.5-17.5) L 03/26/19 05:59 Hct 26.3 % (40.0-50.0) L 03/26/19 05:59 MCV 94.3 fL (80-95) 03/26/19 05:59 MCH 29.7 pg (27.0-33.0) 03/26/19 05:59 MCHC 31.6 g/dL (32.0-36.0) L 03/26/19 05:59 RDW 15.9 % (11.8-14.1) H 03/26/19 05:59 Plt Count 256 x1000/uL (130-400) 03/26/19 05:59 MPV 9.1 fL (8.0-11.0) 03/26/19 05:59 Immature Gran % 0.6 % 03/26/19 05:59 Neutrophils % 78.0 03/26/19 05:59 Lymphocytes % 12.3 03/26/19 05:59 Monocytes % 9.0 03/26/19 05:59 Eosinophils % 0.0 03/26/19 05:59 Basophils % 0.1 03/26/19 05:59 Absolute Neutrophils 9.66 k/cumm (1.2-6.7) H 03/26/19 05:59 Absolute Lymphocytes 1.52 k/cumm (1.2-3.4) 03/26/19 05:59 Absolute Monocytes 1.12 k/cumm (0.11-0.7) H 03/26/19 05:59 Absolute Eosinophils 0.00 k/cumm (0.0-0.7) 03/26/19 05:59 Absolute Basophils 0.01 k/cumm (0.0-0.2) 03/26/19 05:59 Differential Comment Agrees w/ instrument 03/24/19 16:56 RBC Morphology See below 03/24/19 16:56 Polychromasia Present 03/24/19 16:56 Hypochromasia 2+ 03/24/19 16:56 Basophilic Stippling 2+ 03/24/19 16:56 Anisocytosis 2+ 03/24/19 16:56 Macrocytosis 2+ 03/24/19 16:56 PT 11.5 sec (9.3-11.0) H 03/26/19 05:59 INR 1.1 (0.9-1.1) 03/26/19 05:59 APTT 53.0 sec (21.0-31.4) H 03/24/19 16:56 Sodium 145 mmol/L (136-145) 03/26/19 05:59 Potassium 4.7 mmol/L (3.5-5.1) 03/26/19 05:59 Chloride 111 mmol/L (98-107) H 03/26/19 05:59 Carbon Dioxide 26.3 mmol/L (21.0-32.0) 03/26/19 05:59 Anion Gap 7.7 mmol/L (3-11) 03/26/19 05:59 BUN 31 mg/dL (7-18) H D 03/26/19 05:59 Creatinine 1.25 mg/dL (0.70-1.30) 03/26/19 05:59 Estimated GFR/1.73 m2 >= 60.00 (mL/min/1.73m2) 03/26/19 05:59 Glucose 145 mg/dL (74-106) H 03/26/19 05:59 Lactate 2.9 mmol/L (0.6-1.4) H* 03/24/19 17:50 Calcium 8.2 mg/dL (8.5-10.1) L 03/26/19 05:59 Magnesium 2.0 mg/dL (1.8-2.4) 03/26/19 05:59 Total Bilirubin 0.3 mg/dL (0.2-1.0) 03/26/19 05:59 Conjugated Bilirubin 0.10 mg/dL (0.00-0.20) 03/26/19 05:59 AST 9 U/L (15-37) L 03/26/19 05:59 ALT 11 U/L (16-63) L 03/26/19 05:59 Alkaline Phosphatase 53 U/L (46-116) 03/26/19 05:59 Troponin I < 0.05 ng/Ml (<0.06) 03/25/19 14:07 Total Protein 6.3 g/dL (6.4-8.2) L 03/26/19 05:59 Albumin 2.6 g/dL (3.4-5.0) L 03/26/19 05:59 Lipase 79 U/L (73-393) 03/24/19 17:50 Patient ABO/Rh A Positive 03/24/19 17:50 Antibody Screen Negative 03/24/19 17:50 Crossmatch See Detail 03/24/19 17:50 Documented by User: Leonor Taylor MD 03/26/19 13:44
--- NOTE | 2019-03-26 08:23 | W.PM.PROGNOT ---
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 Since then, H/H has remained stable through the day today. It did drop this morning in comparison to yesterday's - likely due to hemodilution. The patient initially presented in hemorrhagic shock. Since she is now hemodynamically stable, ok to Hold asa, coumadin. Venous dopplers BLE's negative for DVT - RUE doppler still pending. If negative, coumadin will not be resumed on discharge. Advance diet to clears. Ok to transfer to [facility] with tele (2) Symptomatic anemia: Status: Acute Assessment and plan: As above - initially presented with hemorrhagic shock (BP's 46/35 and 73/39 initially recorded in ED). As above. (3) Anemia due to acute blood loss: Status: Acute Assessment and plan: As above (4) Hemorrhagic shock: Status: Resolved Assessment and plan: As above (5) Supratherapeutic INR: Status: Resolved Assessment and plan: Secondary to warfarin use. s/p transfusion of 4 units of FFP and PO and IV vitamin K. Continue to hold anticoagulation. Venous dopplers of BLEs negative for DVT - if doppler of RUE is also negative, anticoagulation will not be restarted. (6) Acute kidney injury: Status: Acute Assessment and plan: Secondary to hypovolemia/hemorrhagic shock. Improving. Continue to monitor I/O, daily weights, INR. No longer requiring IVF. (7) Hyperkalemia: Status: Resolved Assessment and plan: In setting of ERICK and being on lisinopril. Continue to hold lisinopril and treat ERICK as above. (8) Chest pain with low risk for cardiac etiology: Status: Acute Assessment and plan: Chest pain in setting of symptomatic anemia. No evidence of ACS/arrhythmias at this time. (9) Opiate dependence: Status: Acute Assessment and plan: Continue suboxone (10) Hypertension: Status: Acute Assessment and plan: Holding outpatient blood pressure medications as above. (11) Aortic insufficiency: Status: Acute Assessment and plan: Status post bioprosthetic aortic valve replacement. Most recent echocardiogram January 2018 showed a normal ejection fraction of 55 to 60%, and no signs of endocarditis, and a well functioning bioprosthetic valve. He does not need to be anticoagulated for the valve, and there is no indication for asa. (12) Diabetes mellitus: Status: Acute Assessment and plan: Rechecking A1C in setting of acute bleeding and blood transfusion would be inaccurate. Continue half-dose of levemir, SSI changed to AC/HS. (13) Hx of deep venous thrombosis: Status: Acute Assessment and plan: As above. BLE venous dopplers negative. Awaiting US RUE. (14) Discharge planning issues: Status: Acute Assessment and plan: Full code. Transfer out of ICU. Subjective Subjective Interval history since last seen: Denies dizziness, chest pain, shortness of breath, nausea. No BM's. No bleeding overnight. No hypotension. Diaphoretic this morning. Not orthostatic by BP's, but is by HR. Feels short of breath - O2 sat 91%. BG was 150 this morning. Refused SSI. Cleared to be started on a clear liquid diet by general surgery Exam Narrative Exam Narrative: General: pale obese male, looks better today, sitting up in bed, A&Ox3, dysarthria (his baseline) HEENT: EOMI, MMM Heart: RRR, no obvious murmur Lungs: CTAB Abdomen: soft, nontender, nondistended Extremities: trace edema BLE's; LLE wound with a couple of areas that have not completely healed, but no drainage or erythema. Objective Objective Clinical Data: Abnormal lab results 03/24/19 03/25/19 03/25/19 Range/Units 17:50 08:03 08:03 WBC (4.4-10.8) k/cumm RBC 2.18 L (4.50-6.00) m/cumm Hgb 6.8 L* (13.5-17.5) g/dL Hct 20.3 L* (40.0-50.0) % MCHC (32.0-36.0) g/dL RDW 15.5 H (11.8-14.1) % Absolute Neutrophils (1.2-6.7) k/cumm Absolute Monocytes (0.11-0.7) k/cumm PT (9.3-11.0) sec INR (0.9-1.1) Sodium 146 H (136-145) mmol/L Chloride 113 H (98-107) mmol/L BUN 63 H D (7-18) mg/dL Creatinine 1.63 H D (0.70-1.30) mg/dL Glucose 175 H (74-106) mg/dL Calcium 7.4 L (8.5-10.1) mg/dL AST 12 L (15-37) U/L ALT 11 L (16-63) U/L Total Protein 5.2 L (6.4-8.2) g/dL Albumin 2.3 L (3.4-5.0) g/dL Crossmatch See Detail 03/25/19 03/25/19 03/26/19 Range/Units 08:03 14:07 05:59 WBC (4.4-10.8) k/cumm RBC (4.50-6.00) m/cumm Hgb 9.0 L D (13.5-17.5) g/dL Hct 27.3 L D (40.0-50.0) % MCHC (32.0-36.0) g/dL RDW (11.8-14.1) % Absolute Neutrophils (1.2-6.7) k/cumm Absolute Monocytes (0.11-0.7) k/cumm PT 12.2 H D (9.3-11.0) sec INR 1.2 H D (0.9-1.1) Sodium (136-145) mmol/L Chloride 111 H (98-107) mmol/L BUN 31 H D (7-18) mg/dL Creatinine (0.70-1.30) mg/dL Glucose 145 H (74-106) mg/dL Calcium 8.2 L (8.5-10.1) mg/dL AST 9 L (15-37) U/L ALT 11 L (16-63) U/L Total Protein 6.3 L (6.4-8.2) g/dL Albumin 2.6 L (3.4-5.0) g/dL Crossmatch 03/26/19 03/26/19 Range/Units 05:59 05:59 WBC 12.39 H (4.4-10.8) k/cumm RBC 2.79 L (4.50-6.00) m/cumm Hgb 8.3 L (13.5-17.5) g/dL Hct 26.3 L (40.0-50.0) % MCHC 31.6 L (32.0-36.0) g/dL RDW 15.9 H (11.8-14.1) % Absolute Neutrophils 9.66 H (1.2-6.7) k/cumm Absolute Monocytes 1.12 H (0.11-0.7) k/cumm PT 11.5 H (9.3-11.0) sec INR (0.9-1.1) Sodium (136-145) mmol/L Chloride (98-107) mmol/L BUN (7-18) mg/dL Creatinine (0.70-1.30) mg/dL Glucose (74-106) mg/dL Calcium (8.5-10.1) mg/dL AST (15-37) U/L ALT (16-63) U/L Total Protein (6.4-8.2) g/dL Albumin (3.4-5.0) g/dL Crossmatch Vital Signs Temperature 36.8 C 03/26/19 08:15 Temperature Source Temporal Artery Scan 03/26/19 08:15 Pulse 85 03/26/19 06:00 Pulse 89 03/26/19 06:15 Respiratory Rate 17 03/26/19 06:15 Respiratory Effort Non-Labored 03/26/19 08:15 Respiratory Depth Normal 03/26/19 05:04 Respiratory Pattern Normal 03/26/19 05:04 Blood Pressure 120/58 L 03/26/19 06:00 Blood Pressure Mean 70 03/26/19 06:00 Blood Pressure Position Supine 03/26/19 05:04 Pulse Oximetry 95 03/26/19 08:15 Oxygen Delivery Method Room Air 03/26/19 08:15 Oxygen Flow Rate 0 03/26/19 08:15 Pain Level 0 03/26/19 05:04 Intake & Output 03/25/19 03/25/19 03/26/19 11:59 23:59 11:59 Intake Total 3499.833 / 4339.833 840 / 4339.833 1400.0 / 1400.0 Output Total 2675 / 4725 0 / 4725 1600 / 1600 Balance 824.833 / -385.167 -1210 / -385.167 -200.0 / -200.0 Intake: IV 2049.833 / 2589.833 540 / 2589.833 1400.0 / 1400.0 Blood Product 729 / 1029 300 / 1029 Frozen Plasma Unit 129 / 129 [id number] Rbc Leuko Reduced Unit 350 / 350 [id number] Rbc Leuko Reduced Unit 250 / 250 [id number] Rbc Leuko Reduced Unit 300 / 300 [id number] Other 721 / 721 Frozen Plasma Unit 171 / 171 [id number] Rbc Leuko Reduced Unit 150 / 150 [id number] Rbc Leuko Reduced Unit 400 / 400 [id number] Output: Urine 2674 Other: Urine Color Yellow Yellow Yellow Urine Appearance Clear Clear Clear Comment Purvis Catheter intact and draining clear yellow urine. Purvis Catheter intact and draining clear yellow urine. Purvis Catheter intact and draining clear yellow urine. Laboratory Results WBC 12.39 k/cumm (4.4-10.8) H 03/26/19 05:59 RBC 2.79 m/cumm (4.50-6.00) L 03/26/19 05:59 Hgb 8.3 g/dL (13.5-17.5) L 03/26/19 05:59 Hct 26.3 % (40.0-50.0) L 03/26/19 05:59 MCV 94.3 fL (80-95) 03/26/19 05:59 MCH 29.7 pg (27.0-33.0) 03/26/19 05:59 MCHC 31.6 g/dL (32.0-36.0) L 03/26/19 05:59 RDW 15.9 % (11.8-14.1) H 03/26/19 05:59 Plt Count 256 x1000/uL (130-400) 03/26/19 05:59 MPV 9.1 fL (8.0-11.0) 03/26/19 05:59 Immature Gran % 0.6 % 03/26/19 05:59 Neutrophils % 78.0 03/26/19 05:59 Lymphocytes % 12.3 03/26/19 05:59 Monocytes % 9.0 03/26/19 05:59 Eosinophils % 0.0 03/26/19 05:59 Basophils % 0.1 03/26/19 05:59 Absolute Neutrophils 9.66 k/cumm (1.2-6.7) H 03/26/19 05:59 Absolute Lymphocytes 1.52 k/cumm (1.2-3.4) 03/26/19 05:59 Absolute Monocytes 1.12 k/cumm (0.11-0.7) H 03/26/19 05:59 Absolute Eosinophils 0.00 k/cumm (0.0-0.7) 03/26/19 05:59 Absolute Basophils 0.01 k/cumm (0.0-0.2) 03/26/19 05:59 Differential Comment Agrees w/ instrument 03/24/19 16:56 RBC Morphology See below 03/24/19 16:56 Polychromasia Present 03/24/19 16:56 Hypochromasia 2+ 03/24/19 16:56 Basophilic Stippling 2+ 03/24/19 16:56 Anisocytosis 2+ 03/24/19 16:56 Macrocytosis 2+ 03/24/19 16:56 PT 11.5 sec (9.3-11.0) H 03/26/19 05:59 INR 1.1 (0.9-1.1) 03/26/19 05:59 APTT 53.0 sec (21.0-31.4) H 03/24/19 16:56 Sodium 145 mmol/L (136-145) 03/26/19 05:59 Potassium 4.7 mmol/L (3.5-5.1) 03/26/19 05:59 Chloride 111 mmol/L (98-107) H 03/26/19 05:59 Carbon Dioxide 26.3 mmol/L (21.0-32.0) 03/26/19 05:59 Anion Gap 7.7 mmol/L (3-11) 03/26/19 05:59 BUN 31 mg/dL (7-18) H D 03/26/19 05:59 Creatinine 1.25 mg/dL (0.70-1.30) 03/26/19 05:59 Estimated GFR/1.73 m2 >= 60.00 (mL/min/1.73m2) 03/26/19 05:59 Glucose 145 mg/dL (74-106) H 03/26/19 05:59 Lactate 2.9 mmol/L (0.6-1.4) H* 03/24/19 17:50 Calcium 8.2 mg/dL (8.5-10.1) L 03/26/19 05:59 Magnesium 2.0 mg/dL (1.8-2.4) 03/26/19 05:59 Total Bilirubin 0.3 mg/dL (0.2-1.0) 03/26/19 05:59 Conjugated Bilirubin 0.10 mg/dL (0.00-0.20) 03/26/19 05:59 AST 9 U/L (15-37) L 03/26/19 05:59 ALT 11 U/L (16-63) L 03/26/19 05:59 Alkaline Phosphatase 53 U/L (46-116) 03/26/19 05:59 Troponin I < 0.05 ng/Ml (<0.06) 03/25/19 14:07 Total Protein 6.3 g/dL (6.4-8.2) L 03/26/19 05:59 Albumin 2.6 g/dL (3.4-5.0) L 03/26/19 05:59 Lipase 79 U/L (73-393) 03/24/19 17:50 Patient ABO/Rh A Positive 03/24/19 17:50 Antibody Screen Negative 03/24/19 17:50 Crossmatch See Detail 03/24/19 17:50
[2019-03-26] MEDS: Furosemide 20 MG/2 ML VIAL IVP (08:46)
[2019-03-26] MEDS: Buprenorphine/Naloxone 8 mg/2 mg FILM 0.5 EACH SL ×2 (08:50→19:32)
--- NOTE | 2019-03-26 10:02 | CMPROGNOTE_ITS ---
Care Management Progress Note S/O: Mio remains drowsy at time of CM assessment. Anticipate he may have a repeat EGD per MD as he remains hemodynamically unstable. If able, he will have a PT evaluation today to inform discharge planning considerations, and transition to M/S level of care and the M/S floor. CM continues to follow. A: Mio is a 53 year old male admitted to [facility] 03/24/2019 for Acute GI bleeding, acute anemia, supratherapeutic INR. P: Anticipate Mio will be discharged home with a resumption of services, including home health and caregivers. He will transport via private vehicle with his family and follow up with his PCP and discharge plan of care. CM will continue to support patient, family and discharge planning needs.
--- NOTE | 2019-03-26 10:22 | DI.RAD_ITS ---
EXAM: XR PORTABLE CHEST AP INDICATION: shortness of breath. COMPARISON: XR PORTABLE CHEST AP from 03/24/2019 TECHNIQUE: 2D digital imaging was performed. FINDINGS: The heart size and pulmonary vasculature are within normal limits. There are sternal wires in place. The lungs are clear. No pleural effusion or pneumothorax is present. IMPRESSION: No acute pulmonary process.
[2019-03-26] MEDS: Normal Saline Flush 10 ML SYR IVP ×4 (10:52→13:20)
--- NOTE | 2019-03-26 11:36 | W.INDIABCONS ---
Date of service: 03/26/19 Time of Service: 11:36 Diabetes Inpatient Consult DESCRIPTION/ASSESSMENT: Appreciate diabetes consult for Mio Alegre who is hospitalized with anemia. He remains NPO at this time looking for source of anemia. BMI 33 A1c 7.3 GFR 44 Blood sugars this hospitalization high in AM 200s today correcting with moderate insulin correction. He is receiving half his usual Lantus dose of 40u at this time. INTERVENTION: Mr. Alegre may benefit from increasing his basal insulin given his fasting at 200 without food. He may require less correction insulin if basal needs are met. PLAN: Will follow blood sugars and advance of diet. Time Spent in Nutritional Counseling and Treatment: 0 minutes face to face
[2019-03-26 12:31] LABS: HCT 27.4 % (40.0-50.0); HGB 8.6 g/dL (13.5-17.5)
--- NOTE | 2019-03-26 12:35 | IN_ITS ---
Date of service: 03/26/19 Time of Service: 12:35 PT Notes Visit Reasons: ACUTE GI BLEEDING, ACUTE ANEMIA, SUPRATHERAPEUTIC Physical Therapy Inpatient Initial Evaluation Date: 03/26/2019 Referring Doctor: Little Akers MD PT Orders: PT CONSULT: Limited ability. Precautions: Fall. Standard. Activity as tolerated. Patient Profile/Admitting Diagnosis: Patient is a 53-year-old male with dysarthria who is status post left ankle ORIF hardware removal on 12/20/2018 who presented to the ED on 03/24/2019 due to black-colored stool associated with chest tightness and dizziness. 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 He is S/P ankle fracture fixation at [facility] [place] in April 2018; on July 2018 had bacteremia/sepsis diagnosed at [facility]. Patient is also S/P AVR in August 2018 at [facility] [place]. Patient is diagnosed with acute GI bleed, acute anemia, supratherapeutic INR, acute kidney infection, hyperkalemia, chest pain, hypertension, aortic insufficiency opiate dependence diabetes mellitus and history of DVT. Referral to physical therapy was sent in order to address decline in functional mobility, activity tolerance, and strength in anticipation of return to home with . 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 Bronchitis (Inactive) Chest pain with low risk for cardiac etiology (Inactive) Chronic anticoagulation (Acute) Chronic pain (Inactive) Community acquired pneumonia (Inactive) Depression (Inactive) Diabetes mellitus (Inactive) Discharge planning issues (Inactive) Displaced bimalleolar fracture of left ankle (Inactive) s/p infection of wound DVT prophylaxis (Inactive) DVT, lower extremity (Inactive) on coumadin 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 GERD (gastroesophageal reflux disease) (Inactive) HCAP (healthcare-associated pneumonia) (Inactive) 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) (Inactive) Hepatitis C (Inactive) Hx of deep venous thrombosis (Inactive) Coumadin Hypertension (Inactive) Hypomagnesemia (Inactive) Intractable hiccups (Inactive) Lactic acidosis (Inactive) MSSA (methicillin susceptible Staphylococcus aureus) septicemia (Inactive) Obstructive sleep apnea (Inactive) Opiate dependence (Inactive) managed on suboxone Osteomyelitis of left fibula (Inactive) Right rotator cuff tear (Inactive) Sepsis (Inactive) Sinus pause (Inactive) Sinus tachycardia (Inactive) Smoker (Inactive) Splenic abscess (Inactive) Streptococcus pneumoniae infection (Inactive) Tinea corporis (Inactive) Wound of left ankle (Inactive) Surgical History H/O aortic valve replacement (Inactive) Pericardial aortic valve at [facility] [place] - 08/21/2018 - Magna Ease 25 mm History of ankle surgery (Acute) S/P hardware removal (Inactive) L ankle. S/P percutaneous endoscopic gastrostomy (PEG) tube placement (Acute) S/P spinal surgery (Acute) Social History/Home Situation: Patient lives with in a mobile home in [place], [place] with 4 steps to enter with a rail on the right side going up. He did say that he now has a ramp that he uses to get in and out of the house. Patient came out of previous incarceration in 2007. works full-time and along with daughter Xochitl provides needed assistance with patient's ADL performance at home. Mio states that he has home home health nurse who comes in regularly to manage his wound. Equipment Owned/DME: Hospital bed, FWW, bedside commode, shower chair, hand-held shower, grab bars, regular wheelchair Subjective: Patient is agreeable to PT consult. He is concerned about his R upper extremity swelling. feels it may have been from patient handling when he was helped to get up from bed for this ost recent admission. He does not complain of any pain in bilateral lower extremities. He denies headache, chest pain, and dizziness throughout PT session. Objective: General Observation: Patient seen resting in bed. Telemetry monitoring in place. IV in left UE. Wound dressing over lateral left leg . Surgical incision over lateral left leg well approximated but continues to be minimally draining. Mental Status: Alert and oriented x4 Pain: Reported 4-5/10 pain on R UE. ROM: Right Upper Extremity: Shoulder ROM unable to be tested due to pain complaint. Elbow flexion WFL. Wrist flexion WFL. Opening and closing of hand WFL. Left Upper Extremity: Shoulder Flexion WFL. Shoulder abduction WFL. Elbow flexion WFL. Wrist flexion WFL. Opening and closing of hand WFL. Right Lower Extremity: Hip flexion WFL. Hip abduction WFL. Knee flexion WFL. Ankle dorsiflexion from fully plantarflexed position to neutral only. Ankle plantarflexion WFL. Left Lower Extremity: Hip flexion WFL. Hip abduction WFL. Knee flexion WFL. Ankle dorsiflexionfrom fully plantarflexed position to neutral only. Ankle plantarflexion WFL. Strength: Right Upper Extremity: Shoulder major muscle groups not tested due to shoulder pain. Elbow flexors 4/5. Elbow extensors 4/5. Director Of Event Management strong. Left Upper Extremity: Shoulder flexors 5/5. Shoulder abductors 5/5. Elbow flexors 5/5. Elbow extensors 5/5. Director Of Event Management weak but functional. Right Lower Extremity: Hip flexors 4/5. Hip abductors 4/5. Knee flexors 4/5. Knee extensors 4/5. Ankle dorsiflexors 5/5. Ankle plantarflexors 5/5. Left Lower Extremity:Hip flexors 5/5. Hip abductors 5/5. Knee flexors 5/5. Knee extensors 5/5. Ankle dorsiflexors 3-/5. Ankle plantarflexors 5/5. Sensation: Intact as to pain and pressure on bilateral lower extremities. Bed Mobility/Transfers: Rolling minimal assist Supine to sit minimal assist Sit to supine minimal assist Sit to stand minimal assist Stand to sit minimal assist Bed to chair minimal assist Chair to bed minimal assist Gait: Patient tolerated level surface ambulation of 5 feet to transfer from bedside to recliner with front wheeled walker using FWB requiring CGA from PT without complaints of any pain in bilateral upper and lower extremities using step-to gait pattern with asymmetric step length. He denies headache, chest pain, dizziness throughout gait activity. Balance: Static Sitting: Normal Dynamic Sitting: Normal Static Standing: Fair Dynamic Standing: Fair Special Tests: Mobility Limitations Standardized Measure [facility] AM-PAC 6 clicks Basic Mobility Inpatient Short Form: Raw Score: 17 CMS Score: 51 % deficit Informed Consent/Education: Patient instructed in purpose of PT consult and plan of care. Assessment: Patient is a 53-year-old male with dysarthria who is status post left ankle ORIF hardware removal on 12/20/2018 who presented to the ED on 03/24/2019 due to black-colored stool associated with chest tightness and dizziness. Patient is diagnosed with acute GI bleed, acute anemia, supratherapeutic INR, acute kidney infection, hyperkalemia, chest pain, hypertension, aortic insufficiency opiate dependence diabetes mellitus and history of DVT now presenting with impairment level findings and functional limitations as listed below necessitating skilled physical therapy services. Referral to physical therapy was sent in order to address decline in functional mobility, activity tolerance, and strength in anticipation of return to home with . Patient presents with clinical signs and symptoms consistent with current/admitting diagnoses that have resulted to mobility limitations, gait instability, generalized weakness, and impairment of motor control as demonstrated by the following impairment level findings: 1. Decreased strength to R UE/LE major muscle groups 2. Impaired standing balance 3. Impaired activity tolerance 4. Limitation of joint range of motion in right shoulder due to previous stroke 5. Swelling to right UE Impairments are contributing to the following functional limitations: 1. Inability to safely ambulate without assistive device and physical assistance 2. Increase completion time for mobility ADL performance 3. Increased fall risk 4. Inability to negotiate steps alone safely Patient is assessed as a 74762 moderate complexity complexity based on the following: History: 53-year-old male with past medical history, impairment level findings, functional limitations, and a [place] [facility] CMS deficit score of 51% as indicated above Examination: Demonstrable impairment in strength, balance, and range of motion with underlying impairments and functional limitations as documented above Presentation: Evolving Decision Makin high complexity Goals:1-2 weeks 1. Supine-Sit independent with hospital bed 2. Sit-Supine independent with hospital bed 3. Sit-Stand independent with FWW 4. Stand-Sit independent with FWW 5. Bed-Chair independent with FWW 6. Chair-Bed independent with FWW 7. Supervision gait on level surface with use of least restrictive device for at least 100 feet without report of pain nor dyspnea 8. Supervision with home exercise program 9. Good static and dynamic standing balance/tolerance Plan of Care/Treatment Plan: 1-2x/day, 7 days/week x 1 week. Plan of care has been reviewed with the FLOORING MECHANIC providing the service under Physical Therapy direction. Initiate Physical Therapy intervention for strengthening, bed mobility, transfers, gait, stairs, balance training, use of assistive device. DISCHARGE RECOMMENDATIONS: Patient will benefit from home health PT services in order to progress mobility level using least restrictive assistive ambulatory de vice, assess home safety, decrease burden of care, identify additional equipment needs, and establish a functional maintenance program that will increase ability of patient to remain at home. TREATMENT CODE/TIME: 60017 x 32 minutes beginning at 12:35 PM. Thank you very much for this referral. Zunilda Zapata PT, DPT, CLT [facility] [place], [place]
--- NOTE | 2019-03-26 14:14 | DI.US_ITS ---
EXAM: US EXTREMITY VENOUS BI CLINICAL HISTORY: f/u DVTs. TECHNIQUE: Bilateral lower extremity venous ultrasound performed using grayscale, color-flow, and sp ectral Doppler analysis. COMPARISON: No previous for comparison. FINDINGS: The bilateral common femoral, femoral and popliteal veins demonstrate normal compressibility, augment ation, and color Doppler. The posterior tibial veins are patent. Saphenofemoral junctions are unrema rkable. IMPRESSION: Right: Negative for DVT Left: Negative for DVT
[2019-03-26] MEDS: Gabapentin 300 MG CAP PO ×2 (14:48→19:31)
--- NOTE | 2019-03-26 15:31 | PHARADMIT ---
Admission Pharmacy Clinical Review ACUTE GI BLEED, ANEMIA, Supertherapeutic INR Code Status Full Code Current Weight 111 kg Renally Cleared and Narrow Therapeutic Index Meds CrCl~75ml/min QTc Value / Action Taken qtc 426 BP Control, Fever BP 126/65 Afebrile Electrolytes reviewed K+ 4.7 Mag 2.0 DVT Prophylaxis none at the moment...bleed (was on Warfarin for previous DVT) Opiate Usage / Scheduled Bowel Regimen Ordered none/no bowel meds Plt/SCr for Heparin / Enoxaparin Plt 256 SCr 1.25 (was 2.48 on admission) INR for Warfarin INR 1.1 (was 6.2 on admission) H/H stable, WBC/Bands H/H 8.6/27.4 @noon...repeating @ 1800 WBC 12.39 (was 20.31 on admission) Antibiotic appropriateness Cultures and Sensitivities blood-no growth x24h Surgical ABX d/c within 24 hr DM control / Insulin Dosing BG 145 Aspart/Lantus Heart Failure (Check EF%) (COLIN's, B-Block, Diuretics) IV to PO Switch Home Meds Reviewed Home Meds Not Ordered Iron, Lisinopril, Metformin, Nicotine, Warfarin-bleed Comments Protonix continous infusion-sending 2 bags/day No bleeding reported overnight transferred from ICU to MS Possible EGD Monday On oxygen, not eating much, not hemodynamically stable, advancing diet Lower extremity edema-Lasix IV x1 Just added some home meds today (Gabapentin, Cymbalta, Keppra)
--- NOTE | 2019-03-26 15:37 | ENDO_ITS ---
DATE OF PROCEDURE: March 25, 2019 PREOPERATIVE DIAGNOSIS: Upper GI bleed. POSTOPERATIVE DIAGNOSIS: 1. Duodenal angiodysplasia. 2. Aragon's esophagus. PROCEDURE: 1. EGD with epinephrine injection and cauterization of an angiodysplasia. 2. EGD with gastric and distal esophageal biopsies. SURGEON: Leonor Taylor M.D. ANESTHESIA: General endotracheal. INDICATIONS: This is a 53-year-old man who presented with a several day history of black stools. Wh en he was evaluated in the Emergency Department he was noted to be hypotensive and had a presenting h emoglobin of 6.5 and an INR of 6.2. His INR has normalized to 1.2 the day of the procedure. He was transfused six units of packed red blood cells total. PROCEDURE: He was placed in the left lateral decubitus position. He was placed under a general anes thetic and intubated. The scope was advanced into his esophagus under direct visualization and down into the stomach. There was no old blood or evidence of bleeding within the stomach itself. The pro ximal duodenum was also normal. Between the second and third portions there was a small amount of br ight red blood noted. The mucosa was irrigated and a very small angiodysplasia noted to be actively bleeding at a low rate. The duodenum was carefully inspected with no evidence of ulceration. The st omach itself showed no ulcers, masses or varices. The GE junction was carefully inspected and showed no esophageal varices. He was noted to have Aragon's esophagus with several areas of gastric-type epithelium extending proximally about 3 to 4 cm. The scope was reintroduced into the duodenum and th e bleeding source again identified. This was injected with 2 cc's of 1:10,000 epinephrine with a yuliya e wheal raised. This did stop the bleeding. I then grasped the area with the hot forceps and gently coagulated it. I then performed biopsies from the gastric antrum to evaluate for H. pylori and from the distal esophagus as well. The scope was then inserted back into the duodenum with evidence of g ood continued hemostasis. The air was suctioned from the stomach and the scope withdrawn, again with no esophageal abnormalities seen aside from the Aragon's esophagus. He tolerated the procedure well and was stable to recovery. cc: Seven Chavira.
--- NOTE | 2019-03-26 15:40 | PT.INTREAT ---
Date of service: 03/26/19 Time of Service: 15:40 PT Notes Visit Reasons: ACUTE GI BLEEDING, ACUTE ANEMIA, SUPRATHERAPEUTIC 03/26/2019 SUBJECTIVE: Pt stating he is fatigued. He has pain through the right UE. OBJECTIVE: Seated in recliner. Agreeable to PT treatment. TRANSFERS Sit to stand: Min A x 2 Stand to sit: Min A x 2 Sit to supine: Min A x2 GAIT Device: FWW Weight bearing: Full Assist: CGA x 2 Distance: 5' ASSESSMENT: Tolerated transfer well this afternoon. Pt demonstrates increased fatigue and assist required from sit to stand. He is able to ballroom dance instructor the walker on the right but does not utilize R UE for support. PLAN: Continue current POC. Treatment time: 10 minutes [id number] Ivonne Sevilla, GRAIN RECEIVER
--- NOTE | 2019-03-26 15:49 | NUR.NOTE ---
Nursing Note: Report taken on Pt from ICU nurse Dominique. Pt transferred to room 214 at 1515. Report given to nurse Shiraz, who is taking over care.Pt settled into bed. Femoral line dressing not intact. Nurse informed, changed @ this time.
--- NOTE | 2019-03-26 16:21 | RESPIRATORY ---
Pt told RT that he uses 1-2L of home O2 when sick but usually doesn't need it. DME: [facility]
[2019-03-26 18:17] LABS: HGB 8.6 g/dL (13.5-17.5)
[2019-03-26] MEDS: DULoxetine 30 MG CAP PO (19:31)
[2019-03-26] MEDS: levETIRAcetam 500 MG TAB PO (19:32)
[2019-03-26] MEDS: Acetaminophen 500 MG TAB PO (21:19)
[2019-03-26] MEDS: Insulin Glargine 300 UNITS/3 ML PEN 20 UNITS SC (22:18)
[2019-03-27] VITALS (8 sets, daily range): BP systolic 109–140; BP diastolic 70–78; PULSE 76–89; RESP 16–20; TEMP 36.7–37; O2SAT 93–97
[2019-03-27 07:03] LABS: Abs Immature Grans 0.02 k/cumm (0.0-0.09); Absolute Basophil Count 0.05 k/cumm (0.0-0.2); Absolute Eosinophil Count 0.29 k/cumm (0.0-0.7); Absolute Lymphocyte Count 1.82 k/cumm (1.2-3.4); Absolute Monocyte Count 1.03 k/cumm (0.11-0.7); Absolute Neutrophil Count 5.42 k/cumm (1.2-6.7); Basophils % 0.6; Eosinophils % 3.4; HCT 27.6 % (40.0-50.0); HGB 8.7 g/dL (13.5-17.5); Immature Grans % 0.2 %; Lymphocytes % 21.1; Mean Corp. HGB Concentration 31.5 g/dL (32.0-36.0); Mean Corpuscular Hemoglobin 29.8 pg (27.0-33.0); Mean Corpuscular Volume 94.5 fL (80-95); Mean Platelet Volume 8.6 fL (8.0-11.0); Monocytes % 11.9; Neutrophils % 62.8; Platelet Count 307 x1000/uL (130-400); RBC 2.92 m/cumm (4.50-6.00); RBC Distribution Width 15.3 % (11.8-14.1); White Blood Cell Count 8.63 k/cumm (4.4-10.8)
[2019-03-27 07:13] LABS: Anion Gap 6.9 mmol/L (3-11); BUN 25 mg/dL (7-18); CO2 29.1 mmol/L (21.0-32.0); CREATININE 1.26 mg/dL (0.70-1.30); Calcium 8.5 mg/dL (8.5-10.1); Chloride 105 mmol/L (98-107); Estimated GFR 59.87 (mL/min/1.73m2); Glucose 125 mg/dL (74-106); Magnesium 1.7 mg/dL (1.8-2.4); Potassium 3.7 mmol/L (3.5-5.1); Sodium 141 mmol/L (136-145)
[2019-03-27 07:22] LABS: Prothrombin Time 10.3 sec (9.3-11.0)
--- NOTE | 2019-03-27 07:56 | W.PM.PROGNOT ---
Date of Service Date of service: 03/27/19 Time of Service: 07:56 Assessment and Plan Assessment and plan (1) Acute gastrointestinal bleeding: Status: Resolved Assessment and plan: Tolerating clear liquid diet will progress to full liquids this morning and if tolerating this well, will progress to soft diet this afternoon. (+) BM Hgb is stable. No signs of bleeding. Subjective Subjective Interval history since last seen: Patient tolerated clear liquid diet well over the day yesterday. He is very eager to be able to eat solid foods. He denies any abdominal pain overnight. He reports that he had a BM yesterday. Denies noting any blood in his stool. Exam Const General: cooperative, healthy appearing and comfortable Orientation: alert and oriented x3 Resp Effort & Inspection: normal respiratory effort, no audible wheezes and no cough GI Inspection: normal to inspection and non-distended Palpation: firm, no guarding and nontender Objective Objective Clinical Data: Abnormal lab results 03/26/19 03/26/19 03/27/19 Range/Units 12:10 18:10 06:35 RBC (4.50-6.00) m/cumm Hgb 8.6 L 8.6 L (13.5-17.5) g/dL Hct 27.4 L 27.0 L (40.0-50.0) % MCHC (32.0-36.0) g/dL RDW (11.8-14.1) % Absolute Monocytes (0.11-0.7) k/cumm BUN 25 H (7-18) mg/dL Glucose 125 H (74-106) mg/dL Magnesium 1.7 L (1.8-2.4) mg/dL 03/27/19 Range/Units 06:35 RBC 2.92 L (4.50-6.00) m/cumm Hgb 8.7 L (13.5-17.5) g/dL Hct 27.6 L (40.0-50.0) % MCHC 31.5 L (32.0-36.0) g/dL RDW 15.3 H (11.8-14.1) % Absolute Monocytes 1.03 H (0.11-0.7) k/cumm BUN (7-18) mg/dL Glucose (74-106) mg/dL Magnesium (1.8-2.4) mg/dL Vital Signs Temperature 36.8 C 03/27/19 04:45 Temperature Source Skin 03/27/19 04:45 Pulse 89 03/27/19 04:45 Pulse Rhythm Regular 03/27/19 04:45 Pulse 97 H 03/26/19 15:00 Respiratory Rate 18 03/27/19 04:45 Respiratory Effort 03/27/19 04:45 Respiratory Depth Normal 03/27/19 04:45 Respiratory Pattern Normal 03/27/19 04:45 Blood Pressure 109/70 03/27/19 04:45 Blood Pressure Mean 87 03/26/19 15:00 Blood Pressure Position Supine 03/26/19 11:24 Pulse Oximetry 93 L 03/27/19 04:45 Oxygen Delivery Method Room Air 03/27/19 04:45 Oxygen Flow Rate 0 03/27/19 04:45 Pain Level 0 03/27/19 04:45 Comment 03/26/19 19:28 Intake & Output 03/26/19 03/27/19 03/27/19 18:59 06:59 18:59 Intake Total 1538.167 / 1538.167 100 / 100 Output Total 3150 / 3550 400 / 3550 450 / 450 Balance -1611.833 / -2011.833 -400 / -2011.833 -350 / -350 Weight 108.9 kg Intake: IV 398.167 / 398.167 Oral 1140 / 1140 100 / 100 Output: Urine 3150 / 3550 400 / 3550 450 / 450 Other: Urine Color Straw Pale Yellow Yellow Urine Appearance Clear Clear Clear Comment Purvis Catheter intact and draining clear yellow urine. Laboratory Results WBC 8.63 k/cumm (4.4-10.8) D 03/27/19 06:35 RBC 2.92 m/cumm (4.50-6.00) L 03/27/19 06:35 Hgb 8.7 g/dL (13.5-17.5) L 03/27/19 06:35 Hct 27.6 % (40.0-50.0) L 03/27/19 06:35 MCV 94.5 fL (80-95) 03/27/19 06:35 MCH 29.8 pg (27.0-33.0) 03/27/19 06:35 MCHC 31.5 g/dL (32.0-36.0) L 03/27/19 06:35 RDW 15.3 % (11.8-14.1) H 03/27/19 06:35 Plt Count 307 x1000/uL (130-400) 03/27/19 06:35 MPV 8.6 fL (8.0-11.0) 03/27/19 06:35 Immature Gran % 0.2 % 03/27/19 06:35 Neutrophils % 62.8 03/27/19 06:35 Lymphocytes % 21.1 03/27/19 06:35 Monocytes % 11.9 03/27/19 06:35 Eosinophils % 3.4 03/27/19 06:35 Basophils % 0.6 03/27/19 06:35 Absolute Neutrophils 5.42 k/cumm (1.2-6.7) 03/27/19 06:35 Absolute Lymphocytes 1.82 k/cumm (1.2-3.4) 03/27/19 06:35 Absolute Monocytes 1.03 k/cumm (0.11-0.7) H 03/27/19 06:35 Absolute Eosinophils 0.29 k/cumm (0.0-0.7) 03/27/19 06:35 Absolute Basophils 0.05 k/cumm (0.0-0.2) 03/27/19 06:35 Differential Comment Agrees w/ instrument 03/24/19 16:56 RBC Morphology See below 03/24/19 16:56 Polychromasia Present 03/24/19 16:56 Hypochromasia 2+ 03/24/19 16:56 Basophilic Stippling 2+ 03/24/19 16:56 Anisocytosis 2+ 03/24/19 16:56 Macrocytosis 2+ 03/24/19 16:56 PT 10.3 sec (9.3-11.0) 03/27/19 06:35 INR 1.0 (0.9-1.1) 03/27/19 06:35 APTT 53.0 sec (21.0-31.4) H 03/24/19 16:56 Sodium 141 mmol/L (136-145) 03/27/19 06:35 Potassium 3.7 mmol/L (3.5-5.1) D 03/27/19 06:35 Chloride 105 mmol/L (98-107) 03/27/19 06:35 Carbon Dioxide 29.1 mmol/L (21.0-32.0) 03/27/19 06:35 Anion Gap 6.9 mmol/L (3-11) 03/27/19 06:35 BUN 25 mg/dL (7-18) H 03/27/19 06:35 Creatinine 1.26 mg/dL (0.70-1.30) 03/27/19 06:35 Estimated GFR/1.73 m2 59.87 (mL/min/1.73m2) 03/27/19 06:35 Glucose 125 mg/dL (74-106) H 03/27/19 06:35 Lactate 2.9 mmol/L (0.6-1.4) H* 03/24/19 17:50 Calcium 8.5 mg/dL (8.5-10.1) 03/27/19 06:35 Magnesium 1.7 mg/dL (1.8-2.4) L 03/27/19 06:35 Total Bilirubin 0.3 mg/dL (0.2-1.0) 03/26/19 05:59 Conjugated Bilirubin 0.10 mg/dL (0.00-0.20) 03/26/19 05:59 AST 9 U/L (15-37) L 03/26/19 05:59 ALT 11 U/L (16-63) L 03/26/19 05:59 Alkaline Phosphatase 53 U/L (46-116) 03/26/19 05:59 Troponin I < 0.05 ng/Ml (<0.06) 03/25/19 14:07 Total Protein 6.3 g/dL (6.4-8.2) L 03/26/19 05:59 Albumin 2.6 g/dL (3.4-5.0) L 03/26/19 05:59 Lipase 79 U/L (73-393) 03/24/19 17:50 Patient ABO/Rh A Positive 03/24/19 17:50 Antibody Screen Negative 03/24/19 17:50 Crossmatch See Detail 03/24/19 17:50
[2019-03-27] MEDS: Buprenorphine/Naloxone 8 mg/2 mg FILM 0.5 EACH SL ×2 (08:39→20:03)
[2019-03-27] MEDS: DULoxetine 30 MG CAP PO ×2 (08:39→20:03)
[2019-03-27] MEDS: Insulin Aspart 300 UNITS/3 ML PEN SC ×4 (08:40→22:10)
[2019-03-27] MEDS: levETIRAcetam 500 MG TAB PO ×2 (08:40→20:03)
[2019-03-27] MEDS: Gabapentin 300 MG CAP PO ×3 (08:40→20:03)
--- NOTE | 2019-03-27 08:58 | DI.US_ITS ---
EXAM: US UPPER EXTREMITY VENOUS RT CLINICAL HISTORY: RUE swelling. TECHNIQUE: Ultrasound examination of the right upper extremity venous system(s) is performed using g rayscale, color-flow, and spectral Doppler analysis. COMPARISON: No previous for comparison. FINDINGS: The right internal jugular, axillary, subclavian, cephalic, basilic, and brachial veins are patent wi thout evidence of thrombosis. IMPRESSION: No DVT.
--- NOTE | 2019-03-27 10:30 | PDOC.CMDIS ---
LACE Index Scoring Tool - Questions: Length of Stay (in days): 3 Acuity (Admit via E.D.?): Yes Comorbidities: Diabetes w/o Complication, Mild Liver/Renal Disease, Liver or Renal Disease E.D. Visits: 5 - Answers: Total Score: 15 Risk of Readmission: High Risk Care Management Discharge Reason for Hospitalization: Acute GI Bleeding Discharge Plan: Mio will be discharged home with a resumption of services, including home health RN and caregivers with an addition of PT. He will transport via private vehicle with his family and follow up with his PCP and discharge plan of care. Patient/Family Education Needs: Review discharge instructions, discuss Ask Me Three. Services Needed at Discharge: DME Agency (Resume), Home Health Care Services (Resume RN, Caregivers, add PT. )
--- NOTE | 2019-03-27 10:50 | PTTR_ITS ---
Date of service: 03/27/19 Time of Service: 10:50 PT Notes Visit Reasons: ACUTE GI BLEEDING, ACUTE ANEMIA, SUPRATHERAPEUTIC Inpatient Physical Therapy Treatment Note [facility] Date: 03/27/2019 PRECAUTIONS: Standard. Fall. Activity as tolerated. SUBJECTIVE: Pt reports that his right arm has more swelling today than yesterday and went for a CT earlier this morning. He notes his diet has been changed to soft foods today and that overall he is feeling much better. Pt states that he only uses oxygen when lying down, but is good when up and moving. OBJECTIVE: oxygen on 2L/min via nasal cannula PAIN: pain in right arm worse today BED MOBILITY/TRANSFERS Rolling L/R: supervision Supine-sit: Min A Sit-supine: NT Sit-stand: Min A Stand-sit: CGA Bed-Chair: CGA Chair-bed: CGA VITALS: SpO2 96% on RA sitting at the edge of the bed. SpO2 97% on RA immediately following walk. GAIT: Pt was able to ambulate 60 feet x2, full weightbearing, using a front- wheeled walker. CGA provided by PT student with wheelchair follow provided by PT. Step to gait pattern with decreased step length and height. Required one seated rest break due to increased dizziness, which SpO2 was 94% on RA. No complaints of increased right arm pain with use of the walker. ASSESSMENT: Pt demonstrated increased tolerance to ambulation today as he was able to walker a significantly greater distance compared to previous treatment session in which he was only able to walk a distance of five feet. He tends to ambulate with a step to gait pattern placing him at a higher risk for falls. The pt required minimal assistance with bed mobility likely due to inability to push up with his right arm pain and swelling. He would continue to benefit from skilled physical therapy at this time for improved mobility level, strengthening, and balance. PLAN: Continue with established POC. Discharge to home with home health services including physical therapy TREATMENT CODE/TIME: 03082 x 2, 30 minutes beginning at 10:50 A.M. ROSA Lee Doctor of Physical Therapy Student [facility] Supervision provided by Zunilda Zapata PT, DPT, CLT [facility] [place], [place]
[2019-03-27] MEDS: MAGNESIUM SULFATE 2 GM/50 ML BAG IVPB (11:43)
--- NOTE | 2019-03-27 14:01 | W.NUTRFU ---
Date of service: 03/27/19 Time of Service: 14:01 Nutritional Follow up NOTE: Diet advanced to full liquids yesterday and tolerating well with 100% completion at lunch today. Mio is eager to have diet advanced. Meeting nutrient/fluid needs by mouth at this time. will continue to follow as needed. Time Spent in Nutritional Counseling and Treatment: 0 time spent face to face
--- NOTE | 2019-03-27 14:14 | PDOC.CMPRO ---
Care Management Progress Note S/O: Mio was sitting up in bed, readying himself to work with PT who was also in the room. Mio reported he would be agreeable to recommendations for home VNA PT in addition to his current supports-HC notified in person today. Anticipate with continued stabilization he may discharge home as soon as tomorrow. CM continues to follow. A: Mio is a 53 year old male admitted to [facility] 03/24/2019 for Acute GI bleeding, acute anemia, supratherapeutic INR. P: Mio will be discharged home with a resumption of services, including home health RN and caregivers with an addition of PT. He will transport via private vehicle with his family and follow up with his PCP and discharge plan of care.
--- NOTE | 2019-03-27 14:47 | WOUNDCONS ---
Wound Initial Evaluation Narrative: Patient is a 53 year old male, seen here for anemia, all pertinent history, labs, and chart review pertinent to the wound were reviewed - Wound Left Lateral Ankle Wound Type: Incision Wound General Appearance: Well Approximated, Healing Well Wound Bed Greatest Portion: Red (Granulation) (nearly healed) Wound Surrounding Tissue Appearance: Normal/Healthy Percent of Wound Bed Granulated/Red: 100 (nearly closed) Percent of Wound Bed Slough/Yellow: 0 Percent of Wound Bed Eschar/Black: 0 Wound Length: 0 in (3.5 cm) Wound Width: 0 in (0.1cm) Wound Depth: 0 in (< 0.1 cm) Wound Drainage Amount: None Wound Drainage Odor: None/Absent Wound Topical Solution/Irrigant: Saline Irrigant Wound Debridement Method: Mechanical Wound Debridement Result: Healthy Tissue Revealed (dry skin removed from area of the wound) Wound Debridement Amount of Tissue Removed: Minimal - Circulation, Sensation, Motion Edema Degree: 1+ Peripheral Pulse Strength: Normal Capillary Refill: Less than 3 seconds Sensation Description: Within Normal Limits Skin Temperature: Warm Skin Color: Normal - CAYDEN Comment:: cayden not indicated - Pain Pain Level: 0 (patient denies pain or itching) Pain Scale Used: Visual Analog Scale 0-10 surgical incision to remove hardware previously placed for an orif. The site initially was open and draining purulent drainage - Treatment/Dressing Change Topicals/Ointments: None Cleanse With: Saline Dressing Types: Mepilex (contact layer) - Recomendation Recomendation:: Cleanse with skintegrity, then pat dry. Apply Mepilex border. Change twice weekly,Monday and Monday. Prn if soiled or dislodged. Physcian/Nurse Practioner Notified: Yes () Treatment Time - Time Total Time Spent with Patient: 30 minutes - Patient Will be Seen Weekly Treatment: 2x/day M-F, - For: For:: 2 weeks (or until healed)
--- NOTE | 2019-03-27 14:52 | CHAPLAIN ---
Mio moved to Med/Surg from the ICU yesterday. I had not visited him in the ICU. He was sitting up in his chair ready to nap when I stopped in. He told me he is feeling better but that he had been very sick. He said he is grateful to be here where he can be monitored. His was in earlier and will be back to visit.
--- NOTE | 2019-03-27 15:24 | W.PM.PROGNOT ---
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 Since then, H/H stable. Tolerating full liquid diet. Switch protonix to PO. The patient initially presented in hemorrhagic shock. Stable on medical surgical floor (transferred yesterday). Both asa and coumadin have been d/c'ed indefinitely. Venous dopplers BLE's and RUE negative for DVT. (2) Symptomatic anemia: Status: Acute Assessment and plan: As above - initially presented with hemorrhagic shock (BP's 46/35 and 73/39 initially recorded in ED). As above. (3) Anemia due to acute blood loss: Status: Acute Assessment and plan: As above (4) Hemorrhagic shock: Status: Resolved Assessment and plan: As above (5) Supratherapeutic INR: Status: Resolved Assessment and plan: Secondary to warfarin use. s/p transfusion of 4 units of FFP and PO and IV vitamin K. No longer has an indication for antiocoagulation as dopplers of BLEs and RUE negative for DVT. Coumadin d/c'ed indefinitely. (6) Acute kidney injury: Status: Resolved Assessment and plan: Cr at baseline. ERICK was due to to hypovolemia/hemorrhagic shock. Continue to monitor I/O, daily weights, INR. (7) Hyperkalemia: Status: Resolved Assessment and plan: In setting of ERICK and being on lisinopril. Continue to hold lisinopril and treat ERICK as above. (8) Chest pain with low risk for cardiac etiology: Status: Acute Assessment and plan: Chest pain in setting of symptomatic anemia. No evidence of ACS/arrhythmias at this time. (9) Opiate dependence: Status: Acute Assessment and plan: Continue suboxone (10) Hypertension: Status: Acute Assessment and plan: Holding outpatient blood pressure medications as above. (11) Aortic insufficiency: Status: Acute Assessment and plan: Status post bioprosthetic aortic valve replacement. Most recent echocardiogram January 2018 showed a normal ejection fraction of 55 to 60%, and no signs of endocarditis, and a well functioning bioprosthetic valve. He does not need to be anticoagulated for the valve, and there is no indication for asa. (12) Diabetes mellitus: Status: Acute Assessment and plan: Rechecking A1C in setting of acute bleeding and blood transfusion would be inaccurate. Continue current basal bolus insulin regimen. (13) Hx of deep venous thrombosis: Status: Resolved Assessment and plan: As above. BLE and RUE venous dopplers negative. No further anticoagulation. (14) Discharge planning issues: Status: Acute Assessment and plan: Full code. Plan to discharge patient home tomorrow if tolerates regular consistency diet. Subjective Subjective Interval history since last seen: Feels better. Denies any more episodes of sweatiness, chest pain, shortness of breath, abdominal pain, nausea. Tolerated a full liquid diet. Exam Narrative Exam Narrative: General: pale obese male, looks even better today - face pink, sitting up in bed, A&Ox3, dysarthria (his baseline) HEENT: EOMI, MMM Heart: RRR, no m/r/g Lungs: CTAB Abdomen: soft, nontender, nondistended Extremities: trace edema BLE's; LLE wound dressed Objective Objective Clinical Data: Abnormal lab results 03/26/19 03/27/19 03/27/19 Range/Units 18:10 06:35 06:35 RBC 2.92 L (4.50-6.00) m/cumm Hgb 8.6 L 8.7 L (13.5-17.5) g/dL Hct 27.0 L 27.6 L (40.0-50.0) % MCHC 31.5 L (32.0-36.0) g/dL RDW 15.3 H (11.8-14.1) % Absolute Monocytes 1.03 H (0.11-0.7) k/cumm BUN 25 H (7-18) mg/dL Glucose 125 H (74-106) mg/dL Magnesium 1.7 L (1.8-2.4) mg/dL Vital Signs Temperature 36.8 C 03/27/19 11:50 Temperature Source Tympanic 03/27/19 11:50 Pulse 87 03/27/19 11:50 Pulse Rhythm Regular 03/27/19 08:45 Pulse 97 H 03/26/19 15:00 Respiratory Rate 18 03/27/19 11:50 Respiratory Effort Non-Labored 03/27/19 08:45 Respiratory Depth Normal 03/27/19 08:45 Respiratory Pattern Normal 03/27/19 08:45 Blood Pressure 122/78 03/27/19 11:50 Blood Pressure Mean 87 03/26/19 15:00 Blood Pressure Position Supine 03/26/19 11:24 Pulse Oximetry 94 L 03/27/19 11:50 Oxygen Delivery Method Room Air 03/27/19 11:50 Oxygen Flow Rate 0 03/27/19 11:50 Pain Level 0 03/27/19 11:50 Comment 03/26/19 19:28 Intake & Output 03/26/19 03/27/19 03/27/19 23:59 11:59 23:59 Intake Total 1140 / 2938.167 430 / 550 120 / 550 Output Total 1050 / 5150 450 / 450 Balance 90 / -2211.833 -20 120 / 100 Weight 108.9 kg Intake: Oral 1140 / 1140 430 / 550 120 / 550 Output: Urine 1050 / 5150 450 / 450 Other: Urine Color Pale Yellow Yellow Urine Appearance Clear Clear Laboratory Results WBC 8.63 k/cumm (4.4-10.8) D 03/27/19 06:35 RBC 2.92 m/cumm (4.50-6.00) L 03/27/19 06:35 Hgb 8.7 g/dL (13.5-17.5) L 03/27/19 06:35 Hct 27.6 % (40.0-50.0) L 03/27/19 06:35 MCV 94.5 fL (80-95) 03/27/19 06:35 MCH 29.8 pg (27.0-33.0) 03/27/19 06:35 MCHC 31.5 g/dL (32.0-36.0) L 03/27/19 06:35 RDW 15.3 % (11.8-14.1) H 03/27/19 06:35 Plt Count 307 x1000/uL (130-400) 03/27/19 06:35 MPV 8.6 fL (8.0-11.0) 03/27/19 06:35 Immature Gran % 0.2 % 03/27/19 06:35 Neutrophils % 62.8 03/27/19 06:35 Lymphocytes % 21.1 03/27/19 06:35 Monocytes % 11.9 03/27/19 06:35 Eosinophils % 3.4 03/27/19 06:35 Basophils % 0.6 03/27/19 06:35 Absolute Neutrophils 5.42 k/cumm (1.2-6.7) 03/27/19 06:35 Absolute Lymphocytes 1.82 k/cumm (1.2-3.4) 03/27/19 06:35 Absolute Monocytes 1.03 k/cumm (0.11-0.7) H 03/27/19 06:35 Absolute Eosinophils 0.29 k/cumm (0.0-0.7) 03/27/19 06:35 Absolute Basophils 0.05 k/cumm (0.0-0.2) 03/27/19 06:35 Differential Comment Agrees w/ instrument 03/24/19 16:56 RBC Morphology See below 03/24/19 16:56 Polychromasia Present 03/24/19 16:56 Hypochromasia 2+ 03/24/19 16:56 Basophilic Stippling 2+ 03/24/19 16:56 Anisocytosis 2+ 03/24/19 16:56 Macrocytosis 2+ 03/24/19 16:56 PT 10.3 sec (9.3-11.0) 03/27/19 06:35 INR 1.0 (0.9-1.1) 03/27/19 06:35 APTT 53.0 sec (21.0-31.4) H 03/24/19 16:56 Sodium 141 mmol/L (136-145) 03/27/19 06:35 Potassium 3.7 mmol/L (3.5-5.1) D 03/27/19 06:35 Chloride 105 mmol/L (98-107) 03/27/19 06:35 Carbon Dioxide 29.1 mmol/L (21.0-32.0) 03/27/19 06:35 Anion Gap 6.9 mmol/L (3-11) 03/27/19 06:35 BUN 25 mg/dL (7-18) H 03/27/19 06:35 Creatinine 1.26 mg/dL (0.70-1.30) 03/27/19 06:35 Estimated GFR/1.73 m2 59.87 (mL/min/1.73m2) 03/27/19 06:35 Glucose 125 mg/dL (74-106) H 03/27/19 06:35 Lactate 2.9 mmol/L (0.6-1.4) H* 03/24/19 17:50 Calcium 8.5 mg/dL (8.5-10.1) 03/27/19 06:35 Magnesium 1.7 mg/dL (1.8-2.4) L 03/27/19 06:35 Total Bilirubin 0.3 mg/dL (0.2-1.0) 03/26/19 05:59 Conjugated Bilirubin 0.10 mg/dL (0.00-0.20) 03/26/19 05:59 AST 9 U/L (15-37) L 03/26/19 05:59 ALT 11 U/L (16-63) L 03/26/19 05:59 Alkaline Phosphatase 53 U/L (46-116) 03/26/19 05:59 Troponin I < 0.05 ng/Ml (<0.06) 03/25/19 14:07 Total Protein 6.3 g/dL (6.4-8.2) L 03/26/19 05:59 Albumin 2.6 g/dL (3.4-5.0) L 03/26/19 05:59 Lipase 79 U/L (73-393) 03/24/19 17:50 Patient ABO/Rh A Positive 03/24/19 17:50 Antibody Screen Negative 03/24/19 17:50 Crossmatch See Detail 03/24/19 17:50
[2019-03-27] MEDS: Pantoprazole 40 MG TABCR PO (20:03)
[2019-03-27] MEDS: Insulin Glargine 300 UNITS/3 ML PEN 20 UNITS SC (22:10)
[2019-03-28 04:00] VITALS: BP 132/97; PULSE 79; RESP 18; TEMP 37; O2SAT 98
[2019-03-28 06:51] LABS: Abs Immature Grans 0.03 k/cumm (0.0-0.09); Absolute Basophil Count 0.05 k/cumm (0.0-0.2); Absolute Eosinophil Count 0.44 k/cumm (0.0-0.7); Absolute Lymphocyte Count 1.68 k/cumm (1.2-3.4); Absolute Monocyte Count 0.86 k/cumm (0.11-0.7); Absolute Neutrophil Count 4.77 k/cumm (1.2-6.7); Basophils % 0.6; Eosinophils % 5.6; HCT 29.6 % (40.0-50.0); HGB 9.3 g/dL (13.5-17.5); Immature Grans % 0.4 %; Lymphocytes % 21.5; Mean Corp. HGB Concentration 31.4 g/dL (32.0-36.0); Mean Corpuscular Hemoglobin 29.5 pg (27.0-33.0); Mean Platelet Volume 8.9 fL (8.0-11.0); Neutrophils % 60.9; Platelet Count 362 x1000/uL (130-400); RBC 3.15 m/cumm (4.50-6.00); RBC Distribution Width 14.8 % (11.8-14.1); White Blood Cell Count 7.83 k/cumm (4.4-10.8)
[2019-03-28 07:13] LABS: Anion Gap 7.2 mmol/L (3-11); BUN 20 mg/dL (7-18); CO2 30.8 mmol/L (21.0-32.0); CREATININE 1.18 mg/dL (0.70-1.30); Chloride 105 mmol/L (98-107); Glucose 136 mg/dL (74-106); Magnesium 1.9 mg/dL (1.8-2.4); Potassium 3.9 mmol/L (3.5-5.1); Sodium 143 mmol/L (136-145)
[2019-03-28 07:20] LABS: Anisocytosis 1+; Diff Comment RBC Morph Reviewed; Hypochromasia 1+; Poikilocytes 1+; Polychromasia Present
[2019-03-28 07:51] VITALS: BP 130/83; PULSE 77; RESP 19; TEMP 36.5; O2SAT 97
[2019-03-28] MEDS: Normal Saline Flush 10 ML SYR IVP (08:26)
[2019-03-28] MEDS: Insulin Aspart 300 UNITS/3 ML PEN SC ×2 (08:26→12:45)
[2019-03-28] MEDS: levETIRAcetam 500 MG TAB PO (08:27)
[2019-03-28] MEDS: DULoxetine 30 MG CAP PO (08:27)
[2019-03-28] MEDS: Gabapentin 300 MG CAP PO (08:27)
[2019-03-28] MEDS: Pantoprazole 40 MG TABCR PO (08:27)
[2019-03-28] MEDS: Buprenorphine/Naloxone 8 mg/2 mg FILM 0.5 EACH SL (08:27)
--- NOTE | 2019-03-28 09:55 | PT.INTREAT ---
Date of service: 03/28/19 Time of Service: 09:56 PT Notes Visit Reasons: ACUTE GI BLEEDING, ACUTE ANEMIA, SUPRATHERAPEUTIC 03/28/2019 SUBJECTIVE: Pt stating he is feeling better today. He is hopeful to go home today. He utilizes 4WW at home which he feels more comfortable with. OBJECTIVE: Seated in his recliner. Agreeable to PT treatment. He is on 2 L NC in the chair at 98% Sa02. TRANSFERS Sit to stand: Min A Stand to sit: CGA GAIT Device: FWW Weight bearing: Full Assist: CGA Distance: 120' Deviation: No rest required, RA at 96% Sa02, 108 b/m ASSESSMENT: Improved mobility today with no rest required for a total of 120'. Sa02 remains within normal limits on room air. Pt feels he is about at his baseline level of mobility. PLAN: Continue current POC. Treatment time: 15' [id number] Ivonne Sevilla, BILLING SPECIALIST
[2019-03-28 10:29] LABS: Bilirubin Negative (Negative); Blood Small (Negative); Clarity Clear (Clear); Glucose 500 mg/dL (Negative); Ketones Trace mg/dL (Negative); Leukocyte Esterase Negative (Negative); Nitrite Negative (Negative); Urobilinogen 0.2 EU/dL (Up TO 0.2); pH 5.5 (5-8)
[2019-03-28] MEDS: Mometasone 220 MCG 14 DOSE INHALER IH (10:31)
[2019-03-28 10:33] VITALS: O2SAT 97
[2019-03-28 10:53] LABS: Bacteria Negative HPF (Negative); Epithelial Cells Negative HPF (Negative)
[2019-03-28 10:54] LABS: C & S Indicated? C&S Done As Ordered; Casts Negative LPF (Negative); Crystals Moderate Uric Acid HPF (Negative); Mucus Negative (Negative)
[2019-03-28 11:42] VITALS: BP 143/75; PULSE 100; RESP 19; TEMP 36.6; O2SAT 96
--- NOTE | 2019-03-28 12:33 | W.PM.DS.N ---
Date of service: 03/28/19 Time of Service: 12:33 DS: Diagnosis Discharge Diagnosis (1) Acute gastrointestinal bleeding: Status: Resolved (2) Symptomatic anemia: Status: Acute (3) Anemia due to acute blood loss: Status: Acute (4) Hemorrhagic shock: Status: Resolved (5) Supratherapeutic INR: Status: Resolved (6) Acute kidney injury: Status: Resolved (7) Hyperkalemia: Status: Resolved (8) Chest pain with low risk for cardiac etiology: Status: Resolved (9) Opiate dependence: Status: Chronic Asessment and Plan: on suboxone therapy (10) Hypertension: Status: Acute (11) Aortic insufficiency: Status: Acute (12) Diabetes mellitus: Status: Acute (13) Hx of deep venous thrombosis: Status: Resolved Asessment and Plan: No DVT in either LE or RUE, off of anticoagulation indefinitely (14) Traumatic hematoma of right upper arm: Status: Acute Asessment and Plan: in setting of supratherapeutic INR (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 Discharge Plan Disposition Patient Disposition: HOME W/HOME HEALTH SERVICE Condition: Stable Discharge Details Chief Complaint: GI Bleed Clinical Impression: Acute gastrointestinal bleeding, Acute anemia, Supratherapeutic INR, Acute kidney injury, Hyperkalemia Reason For Visit: ACUTE GI BLEEDING, ACUTE ANEMIA, SUPRATHERAPEUTIC Admit Date/Time: 03/24/19 18:15 Admit Provider: John Singh Attending Provider: John Singh Primary Care Provider: Zach Sanders ED Provider: Leticia Epperson Hospital Course Hospital Course: Mr Alegre is a 53 year old male with PMHx of 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 His coagulopathy was reversed with FFP and Vitamin K. He required a transfusion of 6 units of pRBC in total. He required aggressive IVF, but did not require vasopressor therapy. He was placed on IV PPI and monitored in the ICU. He went for an EGD by Dr Flores on 03/25/2019, which revealed an oozing duodenal angiodysplasia, which was treated. He also likely has Aragon's esophagus. The patient remained NPO for the next 24 hours until we were sure that his hemoglobin was stable. His diet was gradually advanced to soft bland, which he has been tolerating well. He is medically stable for discharge home today. His hemoglobin is 9.3/29.6. Cr is at baseline (1.18). He will need to follow up with general surgery in 1-2 weeks. He is being discharged on protonix 40 mg PO BID. We ruled out residual DVT in LE's and obtained an ultrasound for RUE swelling which was also negative for a DVT. In fact, the patient had a traumatic hematoma in RUE from prior to arrival to the hospital and will need to continue warm compresses to the arm until resolution. It already looks less swollen. The patient does not need to be on baby asa or coumadin, based on his medical history, and both have been stopped indefinitely. He will need resumption of home health nursing and addition of home health PT. Care for patient as well as completion of his discharge summary took 1 hour on the day of discharge. Home Meds and New Rx's Prescriptions: Continued bisacodyl [Dulcolax (bisacodyl)] 5 mg tablet,delayed release (DR/EC) 5 mg PO ONCE Qty: 4 RF: 0 albuterol sulfate [Ventolin HFA] 60 PUFF HFA aerosol inhaler 2 puff Inhalation Q2H PRN PRNQty: 1 RF: 1 acetaminophen [Tylenol] 325 mg Tablet 650 mg PO Q4H PRN PRNQty: 0 RF: 0 docusate sodium [Colace] 100 mg Capsule 100 mg PO BID Qty: 0 RF: 0 levetiracetam [Keppra] 500 mg Tablet 500 mg PO BID Qty: 0 RF: 0 magnesium hydroxide [Milk of Magnesia] 400 mg/5 mL Suspension 30 ml PO DAILY PRN PRN (Reason: Constipation) Qty: 0 RF: 0 melatonin 3 mg Tablet Extended Release 6 mg PO HS Qty: 0 RF: 0 metformin 500 mg Tablet Extended Release 24 Hr 1,000 mg PO DAILY RF: 0 ferrous gluconate 324 mg (37.5 mg iron) Tablet 324 mg PO BID RF: 0 furosemide [Lasix] 40 mg Tablet 40 mg PO DAILY RF: 0 polyethylene glycol 3350 [Miralax] 17 gram Powder In Packet 17 g PO DAILY RF: 0 gabapentin 300 mg Capsule 300 mg PO TID RF: 0 Flovent HFA 110 mcg/actuation Hfa Aerosol Inhaler 2 puff INHALATION BID RF: 0 lisinopril 20 mg Tablet 20 mg PO DAILY Qty: 30 RF: 5 nicotine 21 mg/24 hr Patch 24 Hour 21 mg transdermal DAILY PRN PRNQty: 30 RF: 0 Lantus Solostar U-100 Insulin 100 unit/mL (3 mL) Insulin Pen 40 units subcut HS Qty: 1 RF: 0 duloxetine [Cymbalta] 30 mg capsule,delayed release(DR/EC) 30 mg PO BID RF: 0 buprenorphine-naloxone [Suboxone] 8-2 mg Film See Rx Instructions .ROUTE .COMPLEX RF: 0 insulin lispro [Humalog U-100 Insulin] 100 unit/mL Solution See Rx Instructions .ROUTE .COMPLEX RF: 0 Changed pantoprazole 40 mg Tablet,Delayed Release (Dr/Ec) 40 mg PO BID Qty: 60 RF: 0 Discontinued polyethylene glycol 3350 17 gram powder in packet 255 g PO DAILY Qty: 15 RF: 0 warfarin [Coumadin] 2.5 mg tablet See Rx Instructions .ROUTE .COMPLEX RF: 0 warfarin [Coumadin] 5 mg tablet 5 mg PO DAILY RF: 0 insulin aspart U-100 [Novolog Flexpen U-100 Insulin] 100 unit/mL Insulin Pen 0 units subcut 0800,1200,1700 Qty: 0 RF: 0 aspirin 81 mg Tablet,Chewable 81 mg PO DAILY RF: 0 acetaminophen [Tylenol Extra Strength] 500 mg Tablet 500 mg PO Q6H PRNRF: 0 albuterol sulfate [ProAir HFA] 90 mcg/actuation Hfa Aerosol Inhaler 2 puff INHALATION Q4H PRNRF: 0 Discharge Instructions Instructions: Pantoprazole (By mouth), Gastrointestinal Bleeding (DC), Diet for Stomach Ulcers and Gastritis (GEN) Additional Instructions: Return to the hospital with any fever, bleeding, chest pain, or shortness of breath. Care Plan Goals: Home with resumption of home health nursing and addition of home health PT. Will need blood work (CBC, BMP, magnesium) on 04/01/2019 - results to Zach Sanders. Stand Alone Forms: Nursing Discharge Form Referrals: Leonor Taylor MD [ [facility] STAFF PHYSICIAN] - Zach Sanders [Primary Care Provider] - Activity:: Activity as Tolerated Equipment/Supplies:: No Equipment Needed Diet:: carb consistent low sodium Discharge Orders Discharge Orders: Discharge Order (Routine); Ordered 03/28/19 Ordered By: Little Akers DS: Summary Status at Discharge Functional status at discharge: uses cane/walker Overall status at discharge: patient is back to baseline Mental Status: mental status grossly normal Speech and Movement: speech and movement normal (his baseline dysarthria) Mood: congruent mood Affect: normal affect Exam Narrative Exam Narrative: General: pale obese male, looks to be at his baseline, A&Ox3, dysarthria (his baseline) HEENT: EOMI, MMM Heart: RRR, no m/r/g Lungs: CTAB Abdomen: soft, nontender, nondistended Extremities: trace edema BLE's; LLE wound dressed Psych Mental Status: mental status grossly normal Speech and Movement: speech and movement normal (his baseline dysarthria) Mood: congruent mood Affect: normal affect DS: Data Vitals/I&O Vitals and I&O: Vital Signs Temperature 36.6 C 03/28/19 11:42 Temperature Source Tympanic 03/28/19 11:42 Pulse 100 H 03/28/19 11:42 Pulse Rhythm Regular 03/28/19 08:25 Pulse 97 H 03/26/19 15:00 Respiratory Rate 19 03/28/19 11:42 Respiratory Effort Non-Labored 03/28/19 08:25 Respiratory Depth Normal 03/28/19 08:25 Respiratory Pattern Normal 03/28/19 08:25 Blood Pressure 143/75 H 03/28/19 11:42 Blood Pressure Mean 87 03/26/19 15:00 Blood Pressure Position Supine 03/26/19 11:24 Pulse Oximetry 96 03/28/19 11:42 Oxygen Delivery Method Nasal Cannula 03/28/19 11:42 Oxygen Flow Rate 1 03/28/19 11:42 Pain Level 0 03/28/19 11:42 Comment 03/26/19 19:28 Intake & Output 03/27/19 03/28/19 03/28/19 23:59 11:59 23:59 Intake Total 420 / 860 480 / 480 Output Total 600 / 1050 900 / 900 Balance -180 / -190 -420 / -420 Weight 107.8 kg Intake: IV 30 / 30 Oral 420 / 850 450 / 450 Output: Urine 600 / 1050 900 / 900 Other: Urine Color Dark Annalisa Yellow Urine Appearance Clear Clear Voiding Methods Urinal Data Completed and Pending Completed studies during hospitalization [Text1]: EGD 03/25/2019: 1. Duodenal angiodysplasia. 2. Aragon's esophagus. CXR 03/24/2019: No acute pulmonary process. Venous doppler BLE 03/24/2019: Right: Negative for DVT Left: Negative for DVT Venous doopler RUE 03/27/2019: No DVT. Labs on day of discharge: Labs from last 24 hours 03/28/19 03/28/19 03/28/19 10:00 06:28 06:28 WBC 7.83 RBC 3.15 L Hgb 9.3 L Hct 29.6 L MCV 94.0 MCH 29.5 MCHC 31.4 L RDW 14.8 H Plt Count 362 MPV 8.9 Immature Gran % 0.4 Neutrophils % 60.9 Lymphocytes % 21.5 Monocytes % 11.0 Eosinophils % 5.6 Basophils % 0.6 Absolute Neutrophils 4.77 Absolute Lymphocytes 1.68 Absolute Monocytes 0.86 H Absolute Eosinophils 0.44 Absolute Basophils 0.05 Differential Comment Rbc morph reviewed RBC Morphology See below Polychromasia Present Hypochromasia 1+ Poikilocytosis 1+ Anisocytosis 1+ Sodium 143 Potassium 3.9 Chloride 105 Carbon Dioxide 30.8 Anion Gap 7.2 BUN 20 H Creatinine 1.18 Estimated GFR/1.73 m2 >= 60.00 Glucose 136 H Calcium 9.0 Magnesium 1.9 Urine Color Yellow Urine Clarity Clear Urine pH 5.5 Ur Specific [place] 1.020 Urine Protein 100 H Urine Ketones Trace H Urine Blood Small H Urine Nitrite Negative Urine Bilirubin Negative Urine Urobilinogen 0.2 Ur Leukocyte Esterase Negative Urine RBC 10-20 H Urine WBC 3-5 Ur Epithelial Cells Negative Urine Crystals Moderate uric acid Urine Bacteria Negative Urine Casts Negative Urine Mucus Negative Ur Culture Indicated? 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 Bronchitis (Inactive) Chest pain with low risk for cardiac etiology (Resolved) Chronic anticoagulation (Acute) Chronic pain (Inactive) Community acquired pneumonia (Inactive) Depression (Inactive) Diabetes mellitus (Acute) Discharge planning issues (Acute) Displaced bimalleolar fracture of left ankle (Inactive) s/p infection of wound DVT prophylaxis (Inactive) DVT, lower extremity (Inactive) on coumadin 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 GERD (gastroesophageal reflux disease) (Inactive) HCAP (healthcare-associated pneumonia) (Inactive) 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) (Acute) Hepatitis C (Inactive) Hx of deep venous thrombosis (Resolved) on Coumadin Hypertension (Acute) Hypomagnesemia (Inactive) Intractable hiccups (Inactive) Lactic acidosis (Inactive) MSSA (methicillin susceptible Staphylococcus aureus) septicemia (Inactive) Obstructive sleep apnea (Inactive) Opiate dependence (Chronic) managed on suboxone Osteomyelitis of left fibula (Inactive) Right rotator cuff tear (Inactive) Sepsis (Inactive) Sinus pause (Inactive) Sinus tachycardia (Inactive) Smoker (Inactive) Splenic abscess (Inactive) Streptococcus pneumoniae infection (Inactive) Tinea corporis (Inactive) Wound of left ankle (Inactive) Surgical History H/O aortic valve replacement (Inactive) Pericardial aortic valve at [facility] - 08/21/2018 - Magna Ease 25 mm History of ankle surgery (Acute) S/P hardware removal (Inactive) L ankle. S/P percutaneous endoscopic gastrostomy (PEG) tube placement (Acute) S/P spinal surgery (Acute) Family History Father Heart disease in his 50's. Mother COPD (chronic obstructive pulmonary disease) Social History (Updated 03/24/19 @ 20:09 by John Singh) Smoking/Tobacco Use Status: Current every day Tobacco Type: cigarettes Alcohol Intake: never Drug use: Current Sobriety Caregiver/Support person: Yes Household members: spouse current occupation: Disabled Current gender identity: male Do you feel safe in your relationship?: Yes Additional Social history: Lives in [place] with his ex-, Arline Vanegas, who helps care for him. He confirms last tobacco, alcohol, or drugs was before May 2018.
[2019-03-28 12:41] VITALS: O2SAT 96
[2019-03-28 13:04] VITALS: PULSE 102; PULSE 103; PULSE 119; RESP 16; RESP 20; O2SAT 93; O2SAT 95; O2SAT 96
--- NOTE | 2019-03-28 13:21 | PT.INTREAT ---
Date of service: 03/28/19 Time of Service: 13:21 PT Notes Visit Reasons: ACUTE GI BLEEDING, ACUTE ANEMIA, SUPRATHERAPEUTIC 03/28/2019 SUBJECTIVE: Pt stating he is going home this afternoon. No complaints of pain. OBJECTIVE: Present with RT for ambulation without oxgyen. TRANSFERS Sit to stand: Min A Stand to sit: CGA GAIT Device: FWW Assist: CGA Weight bearing: Full Distance: 120' Deviation: RA, decreased sue with shortened stride length ASSESSMENT: Tolerates PT well this afternoon with some evidence of fatigue with increasing gait distance. Pt continues to require min A from sit to stand and he notes his assists with this at home. PLAN: See discharge summary for details. Treatment time: Ivonne Sevilla PTA
--- NOTE | 2019-03-28 14:33 | PGE_ITS ---
Date of Service Date of service: 03/28/19 Time of Service: 12:00 Assessment and Plan Assessment and plan (1) Acute gastrointestinal bleeding: Status: Resolved Assessment and plan: He has no evidence of ongoing bleeding HgB 9.3 Agree with discharge. Patient advised to contact my office with any symptoms of abdominal pain or bleeding. Subjective Subjective Interval history since last seen: Patient is feeling well Eating normal diet No abdominal pain Regular brown stool today Exam Narrative Exam Narrative: Alert Abdomen soft, nontender Objective Objective Clinical Data: Abnormal lab results 03/28/19 03/28/19 03/28/19 Range/Units 06:28 06:28 10:00 RBC 3.15 L (4.50-6.00) m/cumm Hgb 9.3 L (13.5-17.5) g/dL Hct 29.6 L (40.0-50.0) % MCHC 31.4 L (32.0-36.0) g/dL RDW 14.8 H (11.8-14.1) % Absolute Monocytes 0.86 H (0.11-0.7) k/cumm BUN 20 H (7-18) mg/dL Glucose 136 H (74-106) mg/dL Urine Protein 100 H (Negative) mg/dL Urine Ketones Trace H (Negative) mg/dL Urine Blood Small H (Negative) Urine RBC 10-20 H (0-2) HPF Urine Glucose 500 H (Negative) mg/dL Vital Signs Temperature 97.9 F 03/28/19 11:42 Temperature Source Tympanic 03/28/19 11:42 Pulse 100 H 03/28/19 11:42 Pulse Rhythm Regular 03/28/19 08:25 Pulse 97 H 03/26/19 15:00 Respiratory Rate 19 03/28/19 11:42 Respiratory Effort Non-Labored 03/28/19 08:25 Respiratory Depth Normal 03/28/19 08:25 Respiratory Pattern Normal 03/28/19 08:25 Blood Pressure 143/75 H 03/28/19 11:42 Blood Pressure Mean 87 03/26/19 15:00 Blood Pressure Position Supine 03/26/19 11:24 Pulse Oximetry 96 03/28/19 12:41 Oxygen Delivery Method Room Air 03/28/19 12:41 Oxygen Flow Rate 0 03/28/19 12:41 Pain Level 0 03/28/19 11:42 Comment 03/26/19 19:28 Intake & Output 03/27/19 03/28/19 03/28/19 23:59 11:59 23:59 Intake Total 420 / 860 960 / 1200 240 / 1200 Output Total 600 / 1050 900 / 900 Balance -180 / -190 60 / 300 240 / 300 Weight 237 lb 10.533 oz Intake: IV 30 / 30 Oral 420 / 850 930 / 1170 240 / 1170 Output: Urine 600 / 1050 900 / 900 Other: Urine Color Dark Annalisa Yellow Urine Appearance Clear Clear Voiding Methods Urinal Laboratory Results WBC 7.83 k/cumm (4.4-10.8) 03/28/19 06:28 RBC 3.15 m/cumm (4.50-6.00) L 03/28/19 06:28 Hgb 9.3 g/dL (13.5-17.5) L 03/28/19 06:28 Hct 29.6 % (40.0-50.0) L 03/28/19 06:28 MCV 94.0 fL (80-95) 03/28/19 06:28 MCH 29.5 pg (27.0-33.0) 03/28/19 06:28 MCHC 31.4 g/dL (32.0-36.0) L 03/28/19 06:28 RDW 14.8 % (11.8-14.1) H 03/28/19 06:28 Plt Count 362 x1000/uL (130-400) 03/28/19 06:28 MPV 8.9 fL (8.0-11.0) 03/28/19 06:28 Immature Gran % 0.4 % 03/28/19 06:28 Neutrophils % 60.9 03/28/19 06:28 Lymphocytes % 21.5 03/28/19 06:28 Monocytes % 11.0 03/28/19 06:28 Eosinophils % 5.6 03/28/19 06:28 Basophils % 0.6 03/28/19 06:28 Absolute Neutrophils 4.77 k/cumm (1.2-6.7) 03/28/19 06:28 Absolute Lymphocytes 1.68 k/cumm (1.2-3.4) 03/28/19 06:28 Absolute Monocytes 0.86 k/cumm (0.11-0.7) H 03/28/19 06:28 Absolute Eosinophils 0.44 k/cumm (0.0-0.7) 03/28/19 06:28 Absolute Basophils 0.05 k/cumm (0.0-0.2) 03/28/19 06:28 Differential Comment Rbc morph reviewed 03/28/19 06:28 RBC Morphology See below 03/28/19 06:28 Polychromasia Present 03/28/19 06:28 Hypochromasia 1+ 03/28/19 06:28 Poikilocytosis 1+ 03/28/19 06:28 Basophilic Stippling 2+ 03/24/19 16:56 Anisocytosis 1+ 03/28/19 06:28 Macrocytosis 2+ 03/24/19 16:56 PT 10.3 sec (9.3-11.0) 03/27/19 06:35 INR 1.0 (0.9-1.1) 03/27/19 06:35 APTT 53.0 sec (21.0-31.4) H 03/24/19 16:56 Sodium 143 mmol/L (136-145) 03/28/19 06:28 Potassium 3.9 mmol/L (3.5-5.1) 03/28/19 06:28 Chloride 105 mmol/L (98-107) 03/28/19 06:28 Carbon Dioxide 30.8 mmol/L (21.0-32.0) 03/28/19 06:28 Anion Gap 7.2 mmol/L (3-11) 03/28/19 06:28 BUN 20 mg/dL (7-18) H 03/28/19 06:28 Creatinine 1.18 mg/dL (0.70-1.30) 03/28/19 06:28 Estimated GFR/1.73 m2 >= 60.00 (mL/min/1.73m2) 03/28/19 06:28 Glucose 136 mg/dL (74-106) H 03/28/19 06:28 Lactate 2.9 mmol/L (0.6-1.4) H* 03/24/19 17:50 Calcium 9.0 mg/dL (8.5-10.1) 03/28/19 06:28 Magnesium 1.9 mg/dL (1.8-2.4) 03/28/19 06:28 Total Bilirubin 0.3 mg/dL (0.2-1.0) 03/26/19 05:59 Conjugated Bilirubin 0.10 mg/dL (0.00-0.20) 03/26/19 05:59 AST 9 U/L (15-37) L 03/26/19 05:59 ALT 11 U/L (16-63) L 03/26/19 05:59 Alkaline Phosphatase 53 U/L (46-116) 03/26/19 05:59 Troponin I < 0.05 ng/Ml (<0.06) 03/25/19 14:07 Total Protein 6.3 g/dL (6.4-8.2) L 03/26/19 05:59 Albumin 2.6 g/dL (3.4-5.0) L 03/26/19 05:59 Lipase 79 U/L (73-393) 03/24/19 17:50 Urine Color Yellow (Yellow) 03/28/19 10:00 Urine Clarity Clear (Clear) 03/28/19 10:00 Urine pH 5.5 (5-8) 03/28/19 10:00 Ur Specific [place] 1.020 (1.005-1.025) 03/28/19 10:00 Urine Protein 100 mg/dL (Negative) H 03/28/19 10:00 Urine Ketones Trace mg/dL (Negative) H 03/28/19 10:00 Urine Blood Small (Negative) H 03/28/19 10:00 Urine Nitrite Negative (Negative) 03/28/19 10:00 Urine Bilirubin Negative (Negative) 03/28/19 10:00 Urine Urobilinogen 0.2 EU/dL (Up TO 0.2) 03/28/19 10:00 Ur Leukocyte Esterase Negative (Negative) 03/28/19 10:00 Urine RBC 10-20 HPF (0-2) H 03/28/19 10:00 Urine WBC 3-5 HPF (0-5) 03/28/19 10:00 Ur Epithelial Cells Negative HPF (Negative) 03/28/19 10:00 Urine Crystals Moderate uric acid HPF (Negative) 03/28/19 10:00 Urine Bacteria Negative HPF (Negative) 03/28/19 10:00 Urine Casts Negative LPF (Negative) 03/28/19 10:00 Urine Mucus Negative (Negative) 03/28/19 10:00 Ur Culture Indicated? C&s done as ordered 03/28/19 10:00 Urine Glucose 500 mg/dL (Negative) H 03/28/19 10:00 Patient ABO/Rh A Positive 03/24/19 17:50 Antibody Screen Negative 03/24/19 17:50 Crossmatch See Detail 03/24/19 17:50
--- NOTE | 2019-03-28 18:33 | PDOC.CMDIS ---
LACE Index Scoring Tool - Questions: Length of Stay (in days): 4 - 6 Acuity (Admit via E.D.?): Yes Comorbidities: Diabetes w/o Complication, Liver or Renal Disease E.D. Visits: 5 - Answers: Total Score: 16 Risk of Readmission: High Risk Care Management Discharge Reason for Hospitalization: Acute GI Bleeding Discharge Plan: Mio will be discharged home with a resumption of services, including home health RN and caregivers with an addition of PT. He will transport via private vehicle with his family and follow up with his PCP and discharge plan of care. Patient/Family Education Needs: Review discharge instructions, discuss Ask Me Three. Services Needed at Discharge: DME Agency, Home Health Care Services ([facility]: Resume SN and Caregivers, add PT), Homemaking Services
--- NOTE | 2019-04-02 10:15 | PT.INDS ---
Date of service: 04/02/19 Time of Service: 10:15 PT Notes Visit Reasons: ACUTE GI BLEEDING, ACUTE ANEMIA, SUPRATHERAPEUTIC Inpatient Physical Therapy Discharge Summary Dates: 04/02/2019 Dates of Service: 03/26/2019 through 03/28/2019 This is a clinical summary of care provided on the duration of dates listed above. No charge was made in the completion of this documentation. Referring Doctor: Little Akers MD PT Orders: PT CONSULT: Limited ability. Precautions: Fall. Standard. Activity as tolerated. Patient Profile/Admitting Diagnosis: Patient is a 53-year-old male with dysarthria who is status post left ankle ORIF hardware removal on 12/20/2018 who presented to the ED on 03/24/2019 due to black-colored stool associated with chest tightness and dizziness. 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 He is S/P ankle fracture fixation at [facility] in April 2018; on July 2018 had bacteremia/sepsis diagnosed at [facility]. Patient is also S/P AVR in August [address] [facility]. Patient is diagnosed with acute GI bleed, acute anemia, supratherapeutic INR, acute kidney infection, hyperkalemia, chest pain, hypertension, aortic insufficiency opiate dependence diabetes mellitus and history of DVT. Referral to physical therapy was sent in order to address decline in functional mobility, activity tolerance, and strength in anticipation of return to home with . 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 Bronchitis (Inactive) Chest pain with low risk for cardiac etiology (Inactive) Chronic anticoagulation (Acute) Chronic pain (Inactive) Community acquired pneumonia (Inactive) Depression (Inactive) Diabetes mellitus (Inactive) Discharge planning issues (Inactive) Displaced bimalleolar fracture of left ankle (Inactive) s/p infection of wound DVT prophylaxis (Inactive) DVT, lower extremity (Inactive) on coumadin 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 for endocarditis, no longer using. GERD (gastroesophageal reflux disease) (Inactive) HCAP (healthcare-associated pneumonia) (Inactive) 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) (Inactive) Hepatitis C (Inactive) Hx of deep venous thrombosis (Inactive) Coumadin Hypertension (Inactive) Hypomagnesemia (Inactive) Intractable hiccups (Inactive) Lactic acidosis (Inactive) MSSA (methicillin susceptible Staphylococcus aureus) septicemia (Inactive) Obstructive sleep apnea (Inactive) Opiate dependence (Inactive) managed on suboxone Osteomyelitis of left fibula (Inactive) Right rotator cuff tear (Inactive) Sepsis (Inactive) Sinus pause (Inactive) Sinus tachycardia (Inactive) Smoker (Inactive) Splenic abscess (Inactive) Streptococcus pneumoniae infection (Inactive) Tinea corporis (Inactive) Wound of left ankle (Inactive) Surgical History H/O aortic valve replacement (Inactive) Pericardial aortic valve at [facility] - 08/21/2018 - Magna Ease 25 mm History of ankle surgery (Acute) S/P hardware removal (Inactive) L ankle. S/P percutaneous endoscopic gastrostomy (PEG) tube placement (Acute) S/P spinal surgery (Acute) Social History/Home Situation: Patient lives with in a mobile home in [place], [place] with 4 steps to enter with a rail on the right side going up. He did say that he now has a ramp that he uses to get in and out of the house. Patient came out of previous incarceration in 2007. works full-time and along with daughter Xocihtl provides needed assistance with patient's ADL performance at home. Mio states that he has home home health nurse who comes in regularly to manage his wound. Equipment Owned/DME: Hospital bed, FWW, bedside commode, shower chair, hand-held shower, grab bars, regular wheelchair Subjective: NT Objective: General Observation: NT Mental Status: NT Pain: NT ROM: Right Upper Extremity: Shoulder ROM unable to be tested due to pain complaint. Elbow flexion WFL. Wrist flexion WFL. Opening and closing of hand WFL. Left Upper Extremity: Shoulder Flexion WFL. Shoulder abduction WFL. Elbow flexion WFL. Wrist flexion WFL. Opening and closing of hand WFL. Right Lower Extremity: Hip flexion WFL. Hip abduction WFL. Knee flexion WFL. Ankle dorsiflexion from fully plantarflexed position to neutral only. Ankle plantarflexion WFL. Left Lower Extremity: Hip flexion WFL. Hip abduction WFL. Knee flexion WFL. Ankle dorsiflexionfrom fully plantarflexed position to neutral only. Ankle plantarflexion WFL. Strength: Right Upper Extremity: Shoulder major muscle groups not tested due to shoulder pain. Elbow flexors 4/5. Elbow extensors 4/5. Ice Cream Freezer Helper strong. Left Upper Extremity: Shoulder flexors 5/5. Shoulder abductors 5/5. Elbow flexors 5/5. Elbow extensors 5/5. Ice Cream Freezer Helper weak but functional. Right Lower Extremity: Hip flexors 4/5. Hip abductors 4/5. Knee flexors 4/5. Knee extensors 4/5. Ankle dorsiflexors 5/5. Ankle plantarflexors 5/5. Left Lower Extremity:Hip flexors 5/5. Hip abductors 5/5. Knee flexors 5/5. Knee extensors 5/5. Ankle dorsiflexors 3-/5. Ankle plantarflexors 5/5. Sensation: Intact as to pain and pressure on bilateral lower extremities. Bed Mobility/Transfers: Rolling minimal assist Supine to sit minimal assist Sit to supine minimal assist Sit to stand CGA Stand to sit CGA Bed to chair CGA Chair to bed CGA Gait: Patient tolerated level surface ambulation of 120 feet to transfer from bedside to recliner with front wheeled walker using FWB requiring CGA from PT without complaints of any pain in bilateral upper and lower extremities using step-through gait pattern with asymmetric step length. He denies headache, chest pain, dizziness throughout gait activity. Balance: Static Sitting: Normal Dynamic Sitting: Normal Static Standing: Fair Dynamic Standing: Fair Assessment: Patient is a 53-year-old male with dysarthria who is status post left ankle ORIF hardware removal on 12/20/2018 who presented to the ED on 03/24/2019 due to black-colored stool associated with chest tightness and dizziness. Patient is diagnosed with acute GI bleed, acute anemia, supratherapeutic INR, acute kidney infection, hyperkalemia, chest pain, hypertension, aortic insufficiency opiate dependence diabetes mellitus and history of DVT now presenting with impairment level findings and functional limitations as listed below necessitating skilled physical therapy services. Patient demonstrated significant functional improvement during this episode of care. Patient presented with clinical signs and symptoms consistent with current/admitting diagnoses that have resulted to mobility limitations, gait instability, generalized weakness, and impairment of motor control as demonstrated by the following impairment level findings: 1. Decreased strength to R UE/LE major muscle groups 2. Impaired standing balance 3. Impaired activity tolerance 4. Limitation of joint range of motion in right shoulder due to previous stroke 5. Swelling to right UE Impairments continue to contribute to the following functional limitations: 1. Inability to safely ambulate without assistive device and physical assistance 2. Increase completion time for mobility ADL performance 3. Increased fall risk 4. Inability to negotiate steps alone safely Goals:1-2 weeks 1. Supine-Sit independent with hospital bed NOT MET 2. Sit-Supine independent with hospital bed NOT MET 3. Sit-Stand independent with FWW NOT MET 4. Stand-Sit independent with FWW NOT MET 5. Bed-Chair independent with FWW NOT MET 6. Chair-Bed independent with FWW NOT MET 7. Supervision gait on level surface with use of least restrictive device for at least 100 feet without report of pain nor dyspnea NOT MET 8. Supervision with home exercise program NOT MET 9. Good static and dynamic standing balance/tolerance NOT MET DISCHARGE RECOMMENDATIONS: Patient will benefit from home health PT services in order to progress mobility level using least restrictive assistive ambulatory device, assess home safety, decrease burden of care, identify additional equipment needs, and establish a functional maintenance program that will increase ability of patient to remain at home. TREATMENT CODE/TIME: NC. Thank you very much for this referral. Zunilda Zapata PT, DPT, CLT [facility] [place], [place]
== END 2019-03-28 14:46 | disposition home health service (06) | DRG 377 ==
LOC: ER 19:53 → ICU 20:02 → MS 03-26 18:32 → ICU 03-30 10:40
PROVIDERS: Surgery; Admitting Provider Family Medicine; Emergency Provider Physician Assistant; PCP Specialist/Technologist Athletic Trainer; Visit Provider Internal Medicine
PROC: 0DJ68ZZ Inspection of Stomach, Via Natural or Artificial Opening Endoscopic (ICD-10-PCS; CPT 43235; principal; 2019-03-25 12:15)
DX: K92.2 Gastrointestinal hemorrhage, unspecified (principal); R57.8 Other shock; D62 Acute posthemorrhagic anemia; D68.9 Coagulation defect, unspecified; N17.9 Acute kidney failure, unspecified; I69.351 Hemiplegia and hemiparesis following cerebral infarction affecting right dominant side; F11.20 Opioid dependence, uncomplicated; T45.515A Adverse effect of anticoagulants, initial encounter; K22.711 Barrett's esophagus with high grade dysplasia; K31.89 Other diseases of stomach and duodenum; Q27.33 Arteriovenous malformation of digestive system vessel; Z79.01 Long term (current) use of anticoagulants; I95.9 Hypotension, unspecified; E86.1 Hypovolemia; E87.5 Hyperkalemia; R07.89 Other chest pain; I10 Essential (primary) hypertension; Z95.3 Presence of xenogenic heart valve; E11.9 Type 2 diabetes mellitus without complications; Z79.4 Long term (current) use of insulin; Z47.89 Encounter for other orthopedic aftercare; Z86.718 Personal history of other venous thrombosis and embolism; S40.012A Contusion of left shoulder, initial encounter; X58.XXXA Exposure to other specified factors, initial encounter; F17.210 Nicotine dependence, cigarettes, uncomplicated; R60.0 Localized edema; Z79.82 Long term (current) use of aspirin; I69.322 Dysarthria following cerebral infarction; G89.29 Other chronic pain; Z71.3 Dietary counseling and surveillance; Z95.828 Presence of other vascular implants and grafts
CPT/HCPCS: 43239; 43255; 36410; 36415; 36416; 36430; 36556; 36592; 80048; 80053; 80076; 82962; 83690; 85027; 86850; 86900; 86901; 86920; 87040; 87077; 88305; 93005; 94618; 94640; 96361; 96365; 97163; 97530; 99223; 99231; 99232; 99233; 99239; 99253; 99291; 71045; 81003; 81015; 83605; 83735; 84484; 85014; 85018; 85025; 85610; 85730; 87086; 87186; 93010; 93970; 93971; G0378; J1100; J1200; J1941; J2001; J2405; J2704; J3430; P9016; P9059

== ENCOUNTER 2019-04-01 10:22 | Outpatient (CLI) | payer MEDICAID, SELFPAY ==
[2019-04-01 11:21] LABS: HCT 30.3 % (40.0-50.0); HGB 9.6 g/dL (13.5-17.5); Mean Corp. HGB Concentration 31.7 g/dL (32.0-36.0); Mean Corpuscular Hemoglobin 29.6 pg (27.0-33.0); Mean Corpuscular Volume 93.5 fL (80-95); Mean Platelet Volume 9.3 fL (8.0-11.0); Platelet Count 609 x1000/uL (130-400); RBC 3.24 m/cumm (4.50-6.00); RBC Distribution Width 14.1 % (11.8-14.1); White Blood Cell Count 7.78 k/cumm (4.4-10.8)
[2019-04-01 11:50] LABS: Anion Gap 9.9 mmol/L (3-11); BUN 17 mg/dL (7-18); CO2 28.1 mmol/L (21.0-32.0); CREATININE 1.23 mg/dL (0.70-1.30); Calcium 8.1 mg/dL (8.5-10.1); Chloride 104 mmol/L (98-107); Glucose 206 mg/dL (74-106); Magnesium 1.5 mg/dL (1.8-2.4); Sodium 142 mmol/L (136-145)
== END 2019-04-01 10:42 ==
PROVIDERS: PCP Specialist/Technologist Athletic Trainer; Visit Provider Specialist/Technologist Athletic Trainer
DX: K92.2 Gastrointestinal hemorrhage, unspecified (principal)
CPT/HCPCS: 80048; 85027; 83735

== ENCOUNTER 2019-04-12 14:40 | Outpatient (REF) | payer MEDICAID, SELFPAY ==
[2019-04-12 20:08] LABS: HCT 35.1 % (40.0-50.0); HGB 10.7 g/dL (13.5-17.5); Mean Corp. HGB Concentration 30.5 g/dL (32.0-36.0); Mean Corpuscular Hemoglobin 28.6 pg (27.0-33.0); Mean Corpuscular Volume 93.9 fL (80-95); Mean Platelet Volume 9.9 fL (8.0-11.0); Platelet Count 473 x1000/uL (130-400); RBC 3.74 m/cumm (4.50-6.00)
[2019-04-12 20:47] LABS: C-Reactive Protein 8.08 mg/dL (0.0-0.3); ESR 69 mm/hr (1-20)
== END 2019-04-12 15:00 ==
LOC: NCHCN 14:40
PROVIDERS: PCP Specialist/Technologist Athletic Trainer; Visit Provider Internal Medicine
DX: L03.116 Cellulitis of left lower limb (principal)
CPT/HCPCS: 85027; 85652; 86140

== ENCOUNTER 2019-04-22 01:27 | Outpatient (CLI) | payer MEDICAID, SELFPAY ==
--- NOTE | 2019-04-22 | DI.RAD_ITS ---
EXAM: XR TIB/FIB LT INDICATION: LT LEG CELLULITIS, L03.116, INCREASED SWELLING AND PAIN. COMPARISON: XR tib/fib LT from 04/12/2018 XR ANKLE LT COMPLETE from 02/15/2019 TECHNIQUE: 2D digital imaging was performed. FINDINGS: Lucencies in the distal tibia and fibular noted related to previous hardware. No acute fracture or b thomas erosions are seen. There are mild degenerative changes at the ankle joint. The knee is unremark able as visualized. IMPRESSION: No acute abnormality. DATA REPOSITORY: RADIATION DOSE DELIVERED:
== END 2019-04-22 01:47 ==
PROVIDERS: PCP Specialist/Technologist Athletic Trainer; Visit Provider Internal Medicine
DX: L03.116 Cellulitis of left lower limb (principal); M79.605 Pain in left leg; R22.42 Localized swelling, mass and lump, left lower limb; M19.072 Primary osteoarthritis, left ankle and foot
CPT/HCPCS: 73590

== ENCOUNTER 2019-05-15 01:15 | Outpatient (CLI) | payer MEDICAID, SELFPAY ==
[2019-05-15] MEDS: Normal Saline Flush 10 ML SYR IVP (10:14)
[2019-05-15] MEDS: Gadoterate meglumine 20 ML VIAL IVP (10:15)
--- NOTE | 2019-05-15 10:40 | DI.MRI_ITS ---
EXAM: MR LOWER EXTREMITY LT WO/W CLINICAL HISTORY: CELLULITIS LT LEG, L03.116. TECHNIQUE: Multiplanar multisequence MRI of the right ankle was performed with and without intraveno us contrast. CONTRAST MATERIAL: IV Contrast: 20 mL of Magnevist contrast administered. COMPARISON: XR ANKLE LT COMPLETE from 02/15/2019 FINDINGS: The marrow signal is within normal limits. There is artifact in the distal tibia and fibula consiste nt with prior orthopedic screws. No findings are seen in the marrow to suggest osteomyelitis. The muscles show normal signal and size. There is edema seen in the soft tissues of the lower extremity. No focal fluid collection is seen to suggest an abscess. Following contrast administration, no enhancing fluid collections are seen. IMPRESSION: 1. Edema seen in the subcutaneous tissues of the lower extremity consistent with cellulitis. 2. No enhancing lesions are seen to suggest an abscess. 3. No findings are present to suggest acute osteomyelitis. 4. Old postsurgical changes are seen in the distal tibia and fibula. DATA REPOSITORY:
== END 2019-05-15 01:35 ==
PROVIDERS: PCP Specialist/Technologist Athletic Trainer; Visit Provider Internal Medicine
DX: L03.116 Cellulitis of left lower limb (principal); R60.0 Localized edema
CPT/HCPCS: 73720

== ENCOUNTER 2019-06-18 20:40 | Outpatient (REF) | payer MEDICAID, SELFPAY ==
[2019-06-23 08:19] LABS: Benzoylecgonine Negative ng/mL (Cutoff: 50); Cocaine 172 ng/mL (Cutoff: 50); Cocaine Interpretation Positive.
== END 2019-06-18 21:00 ==
LOC: NCHCN 20:40
PROVIDERS: PCP Specialist/Technologist Athletic Trainer; Visit Provider Nurse Practitioner Family
DX: F19.21 Other psychoactive substance dependence, in remission (principal)
CPT/HCPCS: 80353

== ENCOUNTER 2019-07-17 09:20 | Outpatient (CLI) | payer MEDICAID, SELFPAY ==
[2019-07-17 14:27] LABS: *AMPHETAMINES SCREEN URINE Negative (Negative); *BARBITURATES SCREEN URINE Negative (Negative); *BENZODIAZEPINES SCREEN URINE Negative (Negative); Cannabinoids THC Negative (Negative); Cocaine Screen,Urine Negative (Negative); METHADONE URINE SCREEN Negative (Negative); OPIATES URINE SCREEN Negative (Negative)
[2019-07-17 14:29] LABS: Tricyclic Antidepressants Negative (Negative)
[2019-07-24 11:49] LABS: Buprenorphine >25000 ng/mL; Norbuprenorphine 14.6 ng/mL
== END 2019-07-17 09:40 ==
PROVIDERS: PCP Specialist/Technologist Athletic Trainer; Visit Provider Nurse Practitioner Family
DX: F19.21 Other psychoactive substance dependence, in remission (principal); M25.9 Joint disorder, unspecified; Z51.81 Encounter for therapeutic drug level monitoring
CPT/HCPCS: 80307

== ENCOUNTER 2019-07-19 10:36 | Outpatient (REF) | payer MEDICAID, SELFPAY ==
[2019-07-19 11:11] LABS: Abs Immature Grans 0.03 k/cumm (0.0-0.09); Absolute Basophil Count 0.05 k/cumm (0.0-0.2); Absolute Eosinophil Count 0.35 k/cumm (0.0-0.7); Absolute Lymphocyte Count 2.39 k/cumm (1.2-3.4); Absolute Monocyte Count 0.68 k/cumm (0.11-0.7); Absolute Neutrophil Count 4.28 k/cumm (1.2-6.7); Basophils % 0.6; Eosinophils % 4.5; HCT 46.3 % (40.0-50.0); HGB 15.6 g/dL (13.5-17.5); Immature Grans % 0.4 %; Lymphocytes % 30.7; Mean Corp. HGB Concentration 33.7 g/dL (32.0-36.0); Mean Corpuscular Hemoglobin 28.9 pg (27.0-33.0); Mean Corpuscular Volume 85.7 fL (80-95); Mean Platelet Volume 10.3 fL (8.0-11.0); Monocytes % 8.7; Neutrophils % 55.1; Platelet Count 260 x1000/uL (130-400); RBC Distribution Width 13.6 % (11.8-14.1); White Blood Cell Count 7.78 k/cumm (4.4-10.8)
[2019-07-19 11:12] LABS: Iron 62 ug/dL (65-175)
[2019-07-19 11:44] LABS: Calculated LDL 102 mg/dL (<100); Cholesterol 191 mg/dL (<200); HDL Cholesterol 37 mg/dL (40-60); Magnesium 1.9 mg/dL (1.8-2.4); Triglyceride 262 mg/dL (<150); Vitamin B12 417 pg/mL (193-986)
== END 2019-07-19 10:56 ==
LOC: LBN 10:36
PROVIDERS: PCP Specialist/Technologist Athletic Trainer; Visit Provider Nurse Practitioner Family
DX: E11.628 Type 2 diabetes mellitus with other skin complications (principal)
CPT/HCPCS: 80061; 82607; 83540; 83735; 85025

== ENCOUNTER 2019-09-30 03:09 | Outpatient (CLI) | payer MEDICAID, SELFPAY | END 2019-09-30 03:29 | PROVIDERS: PCP Specialist/Technologist Athletic Trainer; Visit Provider Nurse Practitioner Family | DX: R69 Illness, unspecified (principal) | CPT/HCPCS: 93226 ==

== ENCOUNTER 2019-10-11 08:22 | Outpatient (CLI) | payer MEDICAID, SELFPAY ==
[2019-10-12 14:49] LABS: COVID-19 RT-PCR Result NEGATIVE (Negative)
== END 2019-10-11 08:42 ==
PROVIDERS: PCP Nurse Practitioner Family; Visit Provider Family Medicine
DX: Z11.59 Encounter for screening for other viral diseases (principal); Z01.818 Encounter for other preprocedural examination
CPT/HCPCS: U0003

== ENCOUNTER 2019-10-14 03:09 | Outpatient (CLI) | payer MEDICAID, SELFPAY | END 2019-10-14 03:29 | PROVIDERS: PCP Nurse Practitioner Family; Visit Provider Nurse Practitioner Family | DX: R69 Illness, unspecified (principal) ==

== ENCOUNTER 2019-10-30 12:57 | Outpatient (REF) | payer MEDICAID, SELFPAY ==
[2019-10-30 21:01] LABS: BUN 20 mg/dL (7-18); CREATININE 1.27 mg/dL (0.70-1.30); Calcium 9.4 mg/dL (8.5-10.1); Chloride 101 mmol/L (98-107); Glucose 159 mg/dL (74-106); Potassium 4.5 mmol/L (3.5-5.1); Sodium 139 mmol/L (136-145)
== END 2019-10-30 13:17 ==
LOC: NCHCN 12:57
PROVIDERS: PCP Nurse Practitioner Family
DX: I10 Essential (primary) hypertension (principal); E11.65 Type 2 diabetes mellitus with hyperglycemia
CPT/HCPCS: 80048

== ENCOUNTER 2020-01-13 15:42 | Outpatient (REF) | payer MEDICAID, SELFPAY ==
[2020-01-13 22:06] LABS: ALT 21 U/L (16-63); AST 15 U/L (15-37); Albumin 4.3 g/dL (3.4-5.0); Alkaline Phosphatase 75 U/L (46-116); BUN 15 mg/dL (7-18); Bilirubin, Total 0.4 mg/dL (0.2-1.0); CREATININE 1.32 mg/dL (0.70-1.30); Calcium 9.6 mg/dL (8.5-10.1); Chloride 101 mmol/L (98-107); Estimated GFR 56.52 (mL/min/1.73m2); Glucose 100 mg/dL (74-106); Sodium 139 mmol/L (136-145); Total Protein 8.5 g/dL (6.4-8.2)
[2020-01-20 21:38] LABS: Benzoylecgonine 257 ng/mL (Cutoff: 50); Cocaine Negative ng/mL (Cutoff: 50); Cocaine Interpretation Positive.
== END 2020-01-13 16:02 ==
LOC: NCHCN 15:42
PROVIDERS: PCP Nurse Practitioner Family; Visit Provider Nurse Practitioner Family
DX: I10 Essential (primary) hypertension (principal); E78.6 Lipoprotein deficiency; R06.02 Shortness of breath; E83.42 Hypomagnesemia; F11.20 Opioid dependence, uncomplicated
CPT/HCPCS: 80053; 80353; 83735

== ENCOUNTER 2020-01-31 22:33 | Outpatient (REF) | payer MEDICAID, SELFPAY ==
[2020-02-04 22:08] LABS: COVID-19 RT-PCR Result NEGATIVE (Negative)
== END 2020-01-31 22:53 ==
LOC: NCHCN 22:33
PROVIDERS: PCP Nurse Practitioner Family; Visit Provider Nurse Practitioner Family
DX: J34.89 Other specified disorders of nose and nasal sinuses (principal)
CPT/HCPCS: U0003

== ENCOUNTER 2020-02-24 07:58 | Outpatient (CLI) | payer MEDICAID, SELFPAY ==
[2020-02-25 19:36] LABS: COVID-19 RT-PCR UVMMC Result Negative (Negative)
== END 2020-02-24 08:18 ==
PROVIDERS: PCP Nurse Practitioner Family; Visit Provider Family Medicine
DX: Z11.59 Encounter for screening for other viral diseases (principal); Z01.811 Encounter for preprocedural respiratory examination
CPT/HCPCS: U0003

== ENCOUNTER 2020-02-27 03:07 | Outpatient (CLI) | payer MEDICAID, SELFPAY ==
[2020-02-27] MEDS: Albuterol HFA 18 GM 200 PUFF INH IH (09:01)
[2020-02-27] MEDS: Inhaler, Assist Device 1 EACH MC (09:01)
--- NOTE | 2020-02-28 08:03 | W.PFT ---
Date of service: 02/27/20 Time of Service: 08:08 Pulmonary Function Test Result Interpretation Spirometry: Shows moderately severe obstructive airways disease with significant bronchodilator response Lung Volumes: No evidence of restriction, mild to moderate hyperinflation and air trapping Diffusion Capacity: Moderately reduced which is mildly reduced when corrected to alveolar volume Airway Pressure: Elevated Impression Moderately severe obstructive airways disease with significant bronchodilator response, this is associated with mild to moderate hyperinflation and air trapping and moderate diffusion defect Clinical Correlation therefore is recommended.
== END 2020-02-27 03:27 ==
PROVIDERS: PCP Nurse Practitioner Family; Visit Provider Nurse Practitioner Family
DX: R06.02 Shortness of breath (principal)
CPT/HCPCS: 94060; 94726; 94729

== ENCOUNTER 2020-03-10 14:09 | Emergency (ER) | payer MEDICAID, SELFPAY ==
[2020-03-10] VITALS (26 sets, daily range): BP systolic 159–179; BP diastolic 87–108; PULSE 69–85; RESP 12–21; TEMP 36.4; O2SAT 92–98
--- NOTE | 2020-03-10 14:00 | RT.EKG_ITS ---
APPROVED REPORT Exam: Resting ECG Patient Location: E HR:72 bpm ECG Measurements Heart Rate 72 AXIS PA 165 P 38 QRSd 104 QRS 40 QT 409 T 87 QTc 447 Conclusion Sinus rhythm...normal P axis, V-rate 60- 99 Probable left atrial enlargement...P >50mS, <-0.10mV V1 Consider inferior infarct...Q >35mS in II III aVF I have reviewed and interpreted ECG and agree with software generated interpretation.
--- NOTE | 2020-03-10 14:15 | ED.GENADUL_ITS ---
Discharge Plan Disposition Patient Disposition: HOME Condition: Fair Discharge Details Clinical Impression: Chest pain, Hypertension Primary Care Provider: Lexii Luna ED Provider: Kathrin Velazquez Home Meds and New Rx's Prescriptions: Continued bisacodyl [Dulcolax (bisacodyl)] 5 mg tablet,delayed release (DR/EC) 5 mg PO ONCE Qty: 4 RF: 0 albuterol sulfate [Ventolin HFA] 60 PUFF HFA aerosol inhaler 2 puff Inhalation Q2H PRN PRNQty: 1 RF: 1 acetaminophen [Tylenol] 325 mg Tablet 650 mg PO Q4H PRN PRNQty: 0 RF: 0 docusate sodium [Colace] 100 mg Capsule 100 mg PO BID Qty: 0 RF: 0 magnesium hydroxide [Milk of Magnesia] 400 mg/5 mL Suspension 30 ml PO DAILY PRN PRN (Reason: Constipation) Qty: 0 RF: 0 metformin 500 mg Tablet Extended Release 24 Hr 1,000 mg PO DAILY RF: 0 ferrous gluconate 324 mg (37.5 mg iron) Tablet 324 mg PO BID RF: 0 furosemide [Lasix] 40 mg Tablet 40 mg PO BID RF: 0 polyethylene glycol 3350 [Miralax] 17 gram Powder In Packet 17 g PO DAILY RF: 0 gabapentin 300 mg Capsule 300 mg PO TID RF: 0 Flovent HFA 110 mcg/actuation Hfa Aerosol Inhaler 2 puff INHALATION BID RF: 0 lisinopril 20 mg Tablet 20 mg PO DAILY Qty: 30 RF: 5 nicotine 21 mg/24 hr Patch 24 Hour 21 mg transdermal DAILY PRN PRNQty: 30 RF: 0 duloxetine [Cymbalta] 30 mg capsule,delayed release(DR/EC) 30 mg PO BID RF: 0 buprenorphine-naloxone [Suboxone] 8-2 mg Film See Rx Instructions .ROUTE .COMPLEX RF: 0 pantoprazole 40 mg Tablet,Delayed Release (Dr/Ec) 40 mg PO BID Qty: 60 RF: 0 Trulicity 0.75 mg/0.5 mL pen injector 0.75 mg SUBCUT .WEEKLY RF: 0 Discharge Instructions Instructions: Chest Pain (ED), Hypertension (ED) Additional Instructions: You are leaving prior to completion of your testing. As discussed, despite your initial normal work-up, I am very concerned about your heart. I would like for you to follow-up as soon as possible with your primary care. I also like for you to have an outpatient stress test. Stress test has been ordered. They will call you to schedule appointment. Please call your primary care tomorrow morning to schedule follow-up. He may return anytime to continue work-up or be reevaluated. Please seek care immediately if you have recurrence of your discomfort, sweating, shortness of breath or the new/worsening symptoms. Referrals: Lexii Luna [Primary Care Provider] - Discharge Data Discharge Date/Time-TO BE ENTERED AT DEPARTURE: 03/10/20 17:11 Medical Decision Making <Raquel Zepedaton - Last Filed: 03/11/20 19:41> 54-year-old male presents to the ED with chief complaint of chest heaviness. He reports he had some severe chest pain that began yesterday left midsternal no radiation, this is associated with diaphoresis and shortness of breath. He denies cough, abdominal pain. He does have a past medical history of diabetes mellitus, history of aortic valve replacement, aortic valve endocarditis, hepatitis C, aortic insufficiency, hypertension, DVT, CVA, Aragon's esophagus he is a daily smoker. EKG was reviewed by Dr. Leticia Epperson MD ER attending, please see her official read and report. There was an old EKG available for review no significant changes noted. Work-up ordered including CBC, CMP, serial troponins, chest x-ray, 324 mg baby aspirin chewable. Heart score at this time due to patient's risk factors of daily smoker, history of DVT, CVA, previous aortic valve replacement and hypertension is 4 which is a moderate risk. At this time work-up is pending. 1500: Informed by nursing staffing coordinator patient is back from chest x-ray he reports his pain is a 3 out of 10 which is improved from his arrival. Initial work-up is within normal limits, CBC is within normal limits, CMP within normal limits initial troponin is negative. 1525: Discussed recommended admission with patient who declines at this time. He is willing to stay for the 3-hour repeat troponin level. Did discuss that if he would like to be discharged prior to this would be AGAINST MEDICAL ADVICE. I did discuss the risks and benefit of admission due to his past medical history and risk factors he verbalizes understanding is alert and oriented and able to make his own decisions. COMPARISON: CR XR CHEST 2V PA LATERAL from 03/19/2019 FINDINGS: MEDIASTINUM: Normal. HEART: Normal. There is an aortic valve replacement. PULMONARY VASCULATURE: Normal. LUNGS: Clear. PLEURAL SPACE: No pleural effusion or pneumothorax. BONE:Within normal limits for the patient's age. Sternal wires are in place. OTHER FINDINGS:Normal. IMPRESSION: No acute pulmonary findings. Patient states that he did not take his normal blood pressure medication nor his cholesterol medication today I did order his home dose of 20 mg of lisinopril p.o. to be given here in department. Care is to be handed off to oncoming provider CHIKI Sales pending repeat t roponin at approximately 5 PM. <CHIKI Powell - Last Filed: 03/10/20 22:05> Care transition myself from Bibiana Andino NP. Please see her initial note regarding history, presentation and exam. In brief, patient is a 54-year-old gentleman with multiple risk factors presenting today with chief complaint of chest pain. At the time she initially evaluated him she describes him as being diaphoretic. She is quite concerned regarding his chest pain and advised that patient stay for repeat troponin. Repeat troponin is pending at the time I ass umed care. Prior to repeat troponin being drawn, patient is requesting discharge. I discussed with the patient that I am very concerned. We discussed heart score and that he does fall into the moderate category with a heart score of 6. We discussed the findings on the work-up thus far. Patient is insistent on leaving. Patient demonstrates capacity to do so. We did discuss my concerns regarding him leaving and that he does have a mortality risk in doing so. He is agreeable to outpatient stress test. Patient is unable to ambulate associated with previous CVA, will advise nuclear study be performed. Covid testing will be order in preprocedure planning. Strict return precautions were discussed. Patient resides with his and he reports she will be able to bring him in or contact EMS if he develops any new or worsening symptoms. Patient left department against medical advise. HPI <Raquel Turk - Last Filed: 03/11/20 19:41> General Mode of arrival: wheelchair . Date/Time Provider Initiated Documentation: 03/10/20 14:11 . Limitations to Documentation: language barrier . Information obtained by: patient . HPI Narrative: 54-year-old male presents to the ED with chief complaint of chest heaviness. He reports he had some severe chest pain that began yesterday left midsternal no radiation, this is associated with diaphoresis and shortness of breath. He denies cough, abdominal pain. He does have a past medical history of diabetes mellitus, history of aortic valve replacement, aortic valve endocarditis, hepatitis C, aortic insufficiency, hypertension, DVT, CVA, Aragon's esophagus he is a daily smoker. Related Data Home Medications Medication Instructions Recorded Confirmed albuterol sulfate [Ventolin HFA] 2 puff INHALATION Q2H PRN PRN #1 12/04/16 03/10/20 inh acetaminophen [Tylenol] 650 mg PO Q4H PRN PRN #0 tab 08/08/18 03/10/20 docusate sodium [Colace] 100 mg PO BID #0 cap 08/08/18 03/10/20 magnesium hydroxide [Milk of 30 ml PO DAILY PRN PRN #0 ml 08/08/18 03/10/20 Magnesia] bisacodyl 5 mg tablet,delayed 5 mg PO ONCE #4 tab 01/25/19 03/10/20 release Flovent HFA 2 puff INHALATION BID 02/15/19 03/10/20 ferrous gluconate 324 mg PO BID 02/15/19 03/10/20 furosemide [Lasix] 40 mg PO BID 02/15/19 03/10/20 gabapentin 300 mg PO TID 02/15/19 03/10/20 metformin 1,000 mg PO DAILY 02/15/19 03/10/20 polyethylene glycol 3350 [Miralax] 17 g PO DAILY 02/15/19 03/10/20 lisinopril 20 mg PO DAILY #30 tab 02/21/19 03/10/20 nicotine 21 mg TRANSDERMAL DAILY PRN PRN 02/21/19 03/10/20 #30 ea buprenorphine-naloxone [Suboxone] See Rx Instructions .ROUTE .COMPLEX 03/24/19 03/10/20 duloxetine [Cymbalta] 30 mg PO BID 03/24/19 03/10/20 pantoprazole 40 mg PO BID #60 tab 03/28/19 03/10/20 Trulicity 0.75 mg SUBCUT .WEEKLY 03/10/20 03/10/20 Previous Rx's Medication Instructions Recorded albuterol sulfate [Ventolin HFA] 2 puff INHALATION Q2H PRN PRN #1 12/04/16 inh acetaminophen [Tylenol] 650 mg PO Q4H PRN PRN #0 tab 08/08/18 docusate sodium [Colace] 100 mg PO BID #0 cap 08/08/18 magnesium hydroxide [Milk of 30 ml PO DAILY PRN PRN #0 ml 08/08/18 Magnesia] bisacodyl 5 mg tablet,delayed 5 mg PO ONCE #4 tab 01/25/19 release lisinopril 20 mg PO DAILY #30 tab 02/21/19 nicotine 21 mg TRANSDERMAL DAILY PRN PRN 02/21/19 #30 ea pantoprazole 40 mg PO BID #60 tab 03/28/19 Allergies Allergy/AdvReac Type Severity Reaction Status Date / Time Penicillins AdvReac Severe Vomiting Verified 03/10/20 14:18 hydrocodone AdvReac Intermediate vomiting Verified 03/10/20 14:18 General LILLIAN: 2 Review of Systems <Raquel Turk - Last Filed: 03/11/20 19:41> Narrative: Constitutional: Negative for weight loss, alert and oriented, well groomed, normal body habitus, appears comfortable. Diaphoretic upon arrival. HEENT: Denies trauma, headaches, blurry vision, nasal discharge, sore throat, trouble swallowing. Chest: Denies palpitations, irregular rhythm. Positive chest pain left-sided midsternal Respiratory: Denies cough, hemoptysis. Reports shortness of breath. GI: Denies abdominal pain, nausea, vomiting, diarrhea, constipation. : Denies dysuria, hematuria, flank pain, rectal bleeding. Neuro: Denies dizziness, blurry vision, weakness, syncope, headache or facial numbness. Hematologic: Denies easy bruising, intolerance to heat or cold, hair loss. 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 GERD (gastroesophageal reflux disease) HCAP (healthcare-associated pneumonia) 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) Hepatitis C Hx of deep venous thrombosis on Coumadin Hypertension Hypomagnesemia Intractable hiccups Lactic acidosis MSSA (methicillin susceptible Staphylococcus aureus) septicemia Obstructive sleep apnea Opiate dependence managed on suboxone Osteomyelitis of left fibula Right rotator cuff tear Sepsis Sinus pause Sinus tachycardia Smoker Splenic abscess Streptococcus pneumoniae infection Tinea corporis Wound of left ankle Surgical History H/O aortic valve replacement Pericardial aortic valve at [facility] - 08/21/2018 - Magna Ease 25 mm History of ankle surgery S/P hardware removal L ankle. S/P percutaneous endoscopic gastrostomy (PEG) tube placement S/P spinal surgery Family History Father Heart disease in his 50's. Mother COPD (chronic obstructive pulmonary disease) Social History Smoking/Tobacco Use Status: Current every day Tobacco Type: cigarettes Smoking risk assessment performed?: Yes Alcohol Intake: never Drug use: Current Sobriety Caregiver/Support person: Yes Household members: spouse current occupation: Disabled Current gender identity: male Do you feel safe in your relationship?: Yes Additional Social history: Lives in [place] with his ex-, Arline Vanegas, who helps care for him. He confirms last tobacco, alcohol, or drugs was before May 2018. Exam <Raquel Turk - Last Filed: 03/11/20 19:41> Narrative Exam Narrative: Constitutional: Alert and oriented x3. Appears stated age. Normal body habitus. Diaphoretic. He does have somewhat sporadic speech due to previous CVA. Head: Normocephalic, no trauma. Eyes: Pupils PERRLA, Red reflex noted, EOM's intact. Eyelids symmetrical without lesions, discharge, or swelling. ENT: Bilateral TM's WNL, External ear normal to inspection, no mastoid TTP, swelling, or erythema, Nasal turbinates WNL, no nasal discharge. Normal dentition, Posterior pharynx WNL, no exudate. Chest: RRR, Normal S1, S2, distal pulses intact. Resp: Lungs clear to auscultation bilaterally, no wheezes, rales, or rhonchi. Musculoskeletal: Normal gait, 5/5 strength to all four extremities. Abdomen: Soft, nondistended nontender to palpation all 4 quadrants. Skin: Capillary refill less than 2 sec. bilateral lower extremity peripheral vascular disease. Appears chronic. Neurologic: Cranial nerves II-XII intact. Alert and oriented x 3. DTR's intact. Hematologic/Lymphatic: No ecchymosis, no lymphadenopathy. Sign Out <Raquel Turk - Last Filed: 03/11/20 19:41> Sign Out Data: Sign Out Comment: Pending repeat trop at 1700 Last updated by Raquel Turk at 03/10/20 15:51
[2020-03-10] MEDS: Aspirin 81 MG CHEW 324 MG CH (14:42)
[2020-03-10 14:47] LABS: Abs Immature Grans 0.03 10^3/uL (0.0-0.06); Absolute Basophil Count 0.09 10^3/uL (0.0-0.2); Absolute Eosinophil Count 0.29 10^3/uL (0.0-0.7); Absolute Lymphocyte Count 2.46 10^3/uL (1.2-3.4); Absolute Monocyte Count 0.63 10^3/uL (0.1-0.8); Eosinophils % 3.1; HCT 45.2 % (40.0-50.0); HGB 15.1 g/dL (13.5-17.5); Immature Grans % 0.3; Lymphocytes % 26.5; MCH 29.3 pg (27.0-33.0); MCHC 33.4 % (32.0-36.0); MCV 87.8 fL (80-95); MPV 9.2 fL (8.0-11.0); Monocytes % 6.8; Neutrophils % 62.3; Nucleated RBC 0 %; Platelet Count 359 10^3/uL (130-400); RBC 5.15 10^6/uL (4.36-5.78); RDW 12.5 % (11.8-14.1); RDW-SD 40.6 fL
[2020-03-10 15:02] LABS: ALT 22 U/L (16-63); AST 14 U/L (15-37); Albumin 3.9 g/dL (3.4-5.0); Alkaline Phosphatase 76 U/L (46-116); Anion Gap 9.5 mmol/L (3-11); BUN 12 mg/dL (7-18); Bilirubin, Total 0.4 mg/dL (0.2-1.0); CO2 27.5 mmol/L (21.0-32.0); CREATININE 1.15 mg/dL (0.70-1.30); Calcium 9.1 mg/dL (8.5-10.1); Chloride 102 mmol/L (98-107); Glucose 97 mg/dL (74-106); Magnesium 1.8 mg/dL (1.8-2.4); Potassium 3.7 mmol/L (3.5-5.1); Sodium 139 mmol/L (136-145); Total Protein 8.3 g/dL (6.4-8.2)
--- NOTE | 2020-03-10 15:02 | DI.RAD_ITS ---
EXAM: XR CHEST 2V PA LATERAL CLINICAL HISTORY: Chest pain TECHNIQUE: 2D digital imaging was performed. COMPARISON: CR XR CHEST 2V PA LATERAL from 03/19/2019 FINDINGS: MEDIASTINUM: Normal. HEART: Normal. There is an aortic valve replacement. PULMONARY VASCULATURE: Normal. LUNGS: Clear. PLEURAL SPACE: No pleural effusion or pneumothorax. BONE:Within normal limits for the patient's age. Sternal wires are in place. OTHER FINDINGS:Normal. IMPRESSION: No acute pulmonary findings. DATA REPOSITORY: RADIATION DOSE DELIVERED:
[2020-03-10 15:05] LABS: Troponin I < 0.05 ng/mL (<0.06)
[2020-03-10] MEDS: Lisinopril 20 MG TAB PO (15:37)
[2020-03-11 19:12] LABS: COVID-19 RT-PCR UVMMC Result Negative (Negative)
--- NOTE | 2020-03-12 11:32 | NUR.NOTE ---
03/12/20 @ 1117, left message for patient to return call to ed for test results.
== END 2020-03-10 17:11 | disposition home or self-care (01) ==
PROVIDERS: Registered Nurse Emergency; Emergency Provider Physician Assistant; PCP Nurse Practitioner Family
DX: R07.89 Other chest pain (principal); I10 Essential (primary) hypertension; I35.1 Nonrheumatic aortic (valve) insufficiency; Z95.4 Presence of other heart-valve replacement; Z53.29 Procedure and treatment not carried out because of patient's decision for other reasons; Z03.818 Encounter for observation for suspected exposure to other biological agents ruled out; E11.9 Type 2 diabetes mellitus without complications; Z79.84 Long term (current) use of oral hypoglycemic drugs; Z79.01 Long term (current) use of anticoagulants; F17.210 Nicotine dependence, cigarettes, uncomplicated
CPT/HCPCS: 36415; 80053; 93005; 99285; U0003; 71046; 83735; 84484; 85025; 93010; 99284

== ENCOUNTER 2020-03-25 17:16 | Emergency (ER) | payer MEDICAID, SELFPAY ==
[2020-03-25] VITALS (32 sets, daily range): BP systolic 158–189; BP diastolic 93–108; PULSE 73–88; RESP 13–24; TEMP 37.5; O2SAT 92–97
--- NOTE | 2020-03-25 17:15 | RT.EKG_ITS ---
APPROVED REPORT Exam: Resting ECG Patient Location: E HR:79 bpm ECG Measurements Heart Rate 79 AXIS IA 161 P 49 QRSd 101 QRS 53 QT 390 T 85 QTc 446 Conclusion Sinus rhythm. No ST elevation
--- NOTE | 2020-03-25 17:38 | ED.GENADUL_ITS ---
Discharge Plan Disposition Patient Disposition: HOME Condition: Stable Discharge Details Clinical Impression: Vomiting, Chest pain Primary Care Provider: Lexii Luna ED Provider: Raquel Turk Home Meds and New Rx's Prescriptions: New ondansetron 4 mg tablet,disintegrating 4 mg PO Q8H PRN (Reason: nausea and vomiting) 5 Days Qty: 15 RF: 0 Continued bisacodyl [Dulcolax (bisacodyl)] 5 mg tablet,delayed release (DR/EC) 5 mg PO ONCE Qty: 4 RF: 0 albuterol sulfate [Ventolin HFA] 60 PUFF HFA aerosol inhaler 2 puff Inhalation Q2H PRN PRNQty: 1 RF: 1 acetaminophen [Tylenol] 325 mg Tablet 650 mg PO Q4H PRN PRNQty: 0 RF: 0 magnesium hydroxide [Milk of Magnesia] 400 mg/5 mL Suspension 30 ml PO DAILY PRN PRN (Reason: Constipation) Qty: 0 RF: 0 furosemide [Lasix] 40 mg Tablet 20 mg PO BID RF: 0 gabapentin 300 mg Capsule 300 mg PO TID RF: 0 Flovent HFA 110 mcg/actuation Hfa Aerosol Inhaler 2 puff INHALATION BID RF: 0 lisinopril 20 mg Tablet 20 mg PO DAILY Qty: 30 RF: 5 buprenorphine-naloxone [Suboxone] 8-2 mg Film See Rx Instructions .ROUTE .COMPLEX RF: 0 Trulicity 0.75 mg/0.5 mL pen injector 0.75 mg SUBCUT .WEEKLY RF: 0 metformin 500 mg tablet extended release 24 hr 1,000 mg PO BID RF: 0 duloxetine 30 mg capsule,delayed release(DR/EC) 30 mg PO BID RF: 0 pantoprazole 40 mg tablet,delayed release (DR/EC) 40 mg PO DAILY RF: 0 Discharge Instructions Instructions: Chest Pain (ED), Acute Nausea and Vomiting (ED) Additional Instructions: Follow up with primary care provider in 3-5 days. Return to ED sooner if any worsening or concerns. Increase oral fluids. Take nausea medication as needed. Referrals: Lexii Luna [Primary Care Provider] - Medical Decision Making <Raquel Turk - Last Filed: 03/25/20 21:28> 54-year-old male presents to the ED with chief complaint of left-sided chest heaviness, vomiting x3 days, light-colored stools and flatulent belching. He reports chest heaviness began sometime last week and has been cough since. He states that he vomits moderate amount every day for the last 3 days. He denies any fever, no significant abdominal pain, no headache. it has been constant sin ce he has a past medical history aortic valve endocarditis, diabetes mellitus, CVA with right-sided hemiparesis, Aragon's esophagus, DVT, hypertension, acute kidney injury, brain abscess, hepatitis C, obstructive sleep apnea, splenic abscess and he is a daily smoker. Surgical history includes aortic valve replacement, PEG tube placement which was removed, spinal surgery and ankle surgery. He uses a wheelchair and a walker at home. At this time work-up ordered including cardiac work-up with serial troponins, proBNP, PT, D-dimer CT head chest abdomen pelvis. EKG was reviewed by Dr. Manjit Gaytan MD ER attending, please see his official report. Old EKG available for review Initial work-up is largely unremarkable, initial troponin is within normal limits less than 0.05, CBC shows white blood cell count of 12.35, PT INR within normal limits, D-dimer within normal limits, glucose 177, proBNP 156 CT Head W/O FINDINGS: There has been interval development of gliotic foci in the left frontal and parietal lobes and left basal ganglia. There are periventricular white matter lucencies compatible with chronic microvascular ischemic disease. There is no intracranial hemorrhage. No mass effect or midline shift. The ventricles and sulci are normal in size and configuration for age. The calvarium is intact. There is mucoperiosteal thickening of the ethmoid and right maxillary sinuses. No mastoid effusion. IMPRESSION: Chronic left-sided infarcts. No acute findings COMPARISON: CT CHEST PE CTA 08/07/2018 3:45 PM FINDINGS: There is a pleural-based density in the left lower lobe likely representing atelectasis/scarring. No airspace consolidation, ground-glass opacities, pleural effusion or pneumothorax. No evidence of pulmonary embolism although there is suboptimal pulmonary artery opacification. Status post aortic valve repair. No evidence of aortic dissection. No fracture. IMPRESSION: No acute findings. TECHNIQUE: Imaging protocol: Computed tomography of the abdomen and pelvis with contrast. Radiation optimization: All CT scans at this facility use at least one of these dose optimization techniques: automated exposure control; mA and/or kV adjustment per patient size (includes targeted exams where dose is matched to clinical indication); or iterative reconstruction. Contrast material: [id number]; Contrast volume: 100 ml; Contrast route: INTRAVENOUS (IV); COMPARISON: CT CHEST PE CTA 08/07/2018 3:45 PM FINDINGS: There are small probable hepatic cysts and numerous hepatic calcifications. Normal gallbladder. No biliary ductal dilatation. Normal kidneys, adrenal glands and pancreas. There are calcified splenic granulomas. Normal abdominal aorta. No evidence of bowel obstruction. Normal appendix. Normal urinary bladder. There are small inguinal hernias containing fat bilaterally. No free fluid or free air. No acute fracture. IMPRESSION: No acute findings. Thank you for allowing us to participate in the care of your patient. Dictated and Authenticated by: Daniel Aquino MD Discussed results with patient who verbalized understanding. At this time patient is chest pain-free states he feels okay. At this time I do feel that patient is safe to be discharged home with follow-up with primary care provider he does have an appointment tomorrow. Discussed strict return instructions with patient who verbalized understanding. <Manjit Gaytan MD - Last Filed: 03/25/20 17:57> Patient seen and examined [id number], discussed with Ms. Turk. I agree with her assessment and plan. HPI <Raquel Turk - Last Filed: 03/25/20 21:28> General Mode of arrival: wheelchair . Date/Time Provider Initiated Documentation: 03/25/20 17:17 . Limitations to Documentation: physical limitation . Information obtained by: patient . HPI Narrative: 54-year-old male presents to the ED with chief complaint of left-sided chest heaviness, vomiting x3 days, light-colored stools and flatulent belching. He reports chest heaviness began sometime last week and has been cough since. He states that he vomits moderate amount every day for the last 3 days. He denies any fever, no significant abdominal pain, no headache. it has been constant since he has a past medical history aortic valve endocarditis, diabetes mellitus, CVA with right-sided hemiparesis, Aragon's esophagus, DVT, hypertension, acute kidney injury, brain abscess, hepatitis C, obstructive sleep apnea, splenic abscess and he is a daily smoker. Surgical history includes aortic valve replacement, PEG tube placement which was removed, spinal surgery and ankle surgery. He uses a wheelchair and a walker at home. Related Data Home Medications Medication Instructions Recorded Confirmed albuterol sulfate [Ventolin HFA] 2 puff INHALATION Q2H PRN PRN #1 12/04/16 03/25/20 inh acetaminophen [Tylenol] 650 mg PO Q4H PRN PRN #0 tab 08/08/18 03/25/20 magnesium hydroxide [Milk of 30 ml PO DAILY PRN PRN #0 ml 08/08/18 03/25/20 Magnesia] bisacodyl 5 mg tablet,delayed 5 mg PO ONCE #4 tab 01/25/19 03/25/20 release Flovent HFA 2 puff INHALATION BID 02/15/19 03/25/20 furosemide [Lasix] 20 mg PO BID 02/15/19 03/25/20 gabapentin 300 mg PO TID 02/15/19 03/25/20 lisinopril 20 mg PO DAILY #30 tab 02/21/19 03/25/20 buprenorphine-naloxone [Suboxone] See Rx Instructions .ROUTE .COMPLEX 03/24/19 03/25/20 Trulicity 0.75 mg SUBCUT .WEEKLY 03/10/20 03/25/20 duloxetine 30 mg PO BID 03/25/20 03/25/20 metformin 1,000 mg PO BID 03/25/20 03/25/20 ondansetron 4 mg PO Q8H PRN 5 Days #15 tab 03/25/20 pantoprazole 40 mg PO DAILY 03/25/20 03/25/20 Previous Rx's Medication Instructions Recorded albuterol sulfate [Ventolin HFA] 2 puff INHALATION Q2H PRN PRN #1 12/04/16 inh acetaminophen [Tylenol] 650 mg PO Q4H PRN PRN #0 tab 08/08/18 magnesium hydroxide [Milk of 30 ml PO DAILY PRN PRN #0 ml 08/08/18 Magnesia] bisacodyl 5 mg tablet,delayed 5 mg PO ONCE #4 tab 01/25/19 release lisinopril 20 mg PO DAILY #30 tab 02/21/19 ondansetron 4 mg PO Q8H PRN 5 Days #15 tab 03/25/20 Allergies Allergy/AdvReac Type Severity Reaction Status Date / Time Penicillins AdvReac Severe Vomiting Verified 03/25/20 17:32 hydrocodone AdvReac Intermediate vomiting Verified 03/25/20 17:32 General Stated Complaint: Chest Pain LILLIAN: 2 Review of Systems <Raquelsayra Zepedaton - Last Filed: 03/25/20 21:28> Narrative: Constitutional: Negative for weight loss, alert and oriented, well groomed, normal body habitus, appears comfortable. HEENT: Denies trauma, headaches, blurry vision, nasal discharge, sore throat, trouble swallowing. Chest: Denies palpitations, irregular rhythm, positive left-sided chest heaviness. Respiratory: Denies Shortness of breath, cough, hemoptysis. GI: Denies abdominal pain, diarrhea, constipation. Positive nausea vomiting and flatulent belching : Denies dysuria, hematuria, flank pain, rectal bleeding. Neuro: Denies blurry vision, weakness, syncope, headache or facial numbness. He has a baseline of slow speech from his CVA and right-sided weakness. Positive dizziness. Hematologic: Denies easy bruising, intolerance to heat or cold, hair loss. 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 GERD (gastroesophageal reflux disease) HCAP (healthcare-associated pneumonia) 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) Hepatitis C Hx of deep venous thrombosis on Coumadin Hypertension Hypomagnesemia Intractable hiccups Lactic acidosis MSSA (methicillin susceptible Staphylococcus aureus) septicemia Obstructive sleep apnea Opiate dependence managed on suboxone Osteomyelitis of left fibula Right rotator cuff tear Sepsis Sinus pause Sinus tachycardia Smoker Splenic abscess Streptococcus pneumoniae infection Tinea corporis Wound of left ankle Surgical History H/O aortic valve replacement Pericardial aortic valve at [facility] [place] - 08/21/2018 - Magna Ease 25 mm History of ankle surgery S/P hardware removal L ankle. S/P percutaneous endoscopic gastrostomy (PEG) tube placement S/P spinal surgery Family History Father Heart disease in his 50's. Mother COPD (chronic obstructive pulmonary disease) Social History Smoking/Tobacco Use Status: Current every day Tobacco Type: cigarettes Smoking risk assessment performed?: Yes Alcohol Intake: never Drug use: Current Sobriety Caregiver/Support person: Yes Household members: spouse current occupation: Disabled Current gender identity: male Do you feel safe in your relationship?: Yes Additional Social history: Lives in [place] with his ex-, Arline Vanegas, who helps care for him. He confirms last tobacco, alcohol, or drugs was before May 2018. Exam <Raquel Turk - Last Filed: 03/25/20 21:28> Narrative Exam Narrative: Constitutional: Alert and oriented x3. Appears stated age. Normal body habitus. Head: Normocephalic, no trauma. Eyes: Pupils PERRLA, Red reflex noted, EOM's intact. Eyelids symmetrical without lesions, discharge, or swelling. ENT: Bilateral TM's WNL, External ear normal to inspection, no mastoid TTP, swelling, or erythema, Nasal turbinates WNL, no nasal discharge. Normal dentition, Posterior pharynx WNL, no exudate. Chest: RRR, Normal S1, S2, distal pulses intact. Resp: Lungs clear to auscultation bilaterally, no wheezes, rales, or rhonchi. Musculoskeletal: Bilateral lower extremities appear to have chronic appearing peripheral vascular disease. Skin: No suspicious rashes or lesions. Capillary refill less than 2 sec. Neurologic: Cranial nerves II-XII intact. Alert and oriented x 3. Supervisor Dials weaker on the right, right leg weaker to raise off bed. No focal neuro deficits no facial droop. Hematologic/Lymphatic: No ecchymosis, no lymphadenopathy. Course <Raquel Turk - Last Filed: 03/25/20 21:28> Vital Signs Vital signs: Vital Signs Temperature 37.5 C 02/03/21 17:27 Pulse 88 03/25/20 17:27 Respiratory Rate 18 03/25/20 17:27 Blood Pressure 163/95 H 03/25/20 17:27 Pulse Oximetry 96 03/25/20 17:27 Temperature 37.5 C 03/25/20 17:27 Temperature Source Temporal Artery Scan 03/25/20 17:27 Pulse 88 03/25/20 17:27 Respiratory Rate 18 03/25/20 17:27 Respiratory Effort 03/25/20 17:31 Blood Pressure 163/95 H 03/25/20 17:27 Blood Pressure Position Supine 03/25/20 17:27 Pulse Oximetry 96 03/25/20 17:27 Oxygen Delivery Method Room Air 03/25/20 17:27 Oxygen Flow Rate 0 03/25/20 17:27 Pain Level 3 03/25/20 17:27
[2020-03-25 18:12] LABS: Abs Immature Grans 0.05 10^3/uL (0.0-0.06); Absolute Basophil Count 0.09 10^3/uL (0.0-0.2); Absolute Eosinophil Count 3.22 10^3/uL (0.0-0.7); Absolute Lymphocyte Count 2.87 10^3/uL (1.2-3.4); Absolute Monocyte Count 0.58 10^3/uL (0.1-0.8); Absolute Neutrophil Count 5.55 10^3/uL (1.2-6.7); Basophils % 0.7; Eosinophils % 26.1; HCT 42.4 % (40.0-50.0); HGB 14.1 g/dL (13.5-17.5); Immature Grans % 0.4; Lymphocytes % 23.2; MCH 29.5 pg (27.0-33.0); MCHC 33.3 % (32.0-36.0); MCV 88.7 fL (80-95); MPV 9.6 fL (8.0-11.0); Monocytes % 4.7; Neutrophils % 44.9; Nucleated RBC 0 %; Platelet Count 297 10^3/uL (130-400); RBC 4.78 10^6/uL (4.36-5.78); RDW 12.8 % (11.8-14.1); RDW-SD 41.9 fL; WBC 12.35 10^3/uL (4.4-10.8)
[2020-03-25 18:27] LABS: Prothrombin Time 10.3 sec (9.3-11.0)
[2020-03-25 18:28] LABS: ALT 13 U/L (16-63); AST 7 U/L (15-37); Albumin 3.3 g/dL (3.4-5.0); Alkaline Phosphatase 86 U/L (46-116); Anion Gap 8.3 mmol/L (3-11); BUN 15 mg/dL (7-18); Bilirubin, Total 0.2 mg/dL (0.2-1.0); CO2 28.7 mmol/L (21.0-32.0); CREATININE 1.2 mg/dL (0.70-1.30); Calcium 8.7 mg/dL (8.5-10.1); Chloride 106 mmol/L (98-107); Glucose 177 mg/dL (74-106); NT-proBNP 156 pg/mL (<300); Potassium 3.9 mmol/L (3.5-5.1); Sodium 143 mmol/L (136-145); Total Protein 7.4 g/dL (6.4-8.2)
[2020-03-25 18:49] LABS: D-Dimer 255 ng/mlFEU (<500); Troponin I < 0.05 ng/mL (<0.06)
--- NOTE | 2020-03-25 19:01 | DI.CT_ITS ---
EXAM: CT HEAD WO CLINICAL HISTORY: Dizziness, hx of CVA. TECHNIQUE: Imaging Protocol: Axial computed tomography images with coronal and sagittal reformatted images were created and reviewed COMPARISON: CT CT HEAD FOR STROKE PROTOCOL from 06/10/2018 FINDINGS: Ventricles and Extra axial spaces: Normal in size and morphology for the patient's age. Hemorrhage: None. Cerebral parenchyma: There are findings consistent with an old left MCA distribution infarct. There is an old right lacunar infarct. There are areas of decreased attenuation in the white matter sugges ting chronic microvascular ischemic change. No evidence of an acute intracranial infarct. Midline shift: None. Brainstem/Cerebellum: Normal. Calvarium: Normal. Visualized Paranasal sinuses/Mastoids: There is mucosal thickening several visualized paranasal sinus es. The mastoid air cells appear clear. Soft Tissues: Unremarkable. IMPRESSION: No acute intracranial process. RADIATION DOSE DELIVERED: 828.78mGy.cm Total DLP DATA REPOSITORY: All CT scans at this facility are submitted to the National Radiology Data Registry (NRDR) Dose Index Registry (DIR) with the [employer] (ACR). RADIATION OPTIMIZATION: All CT scans at this facility use at least one of these dose optimization te chniques: automated exposure control; mA and/or kV adjustment per patient size (includes targeted exa ms where dose is matched to clinical indication); or iterative reconstruction.
[2020-03-25 19:02] LABS: Diff Comment Agrees w/ Instrument; RBC Morphology Normal
[2020-03-25] MEDS: Omnipaque 350 MG/ML 100 ML BTL IJ (19:13)
[2020-03-25] MEDS: Normal Saline Flush 10 ML SYR IVP (19:15)
[2020-03-25] MEDS: Normal Saline - Diluent 50 ML VIAL IV (19:15)
--- NOTE | 2020-03-25 19:15 | DI.CT_ITS ---
EXAM: CT CHEST/ABD/PEL W CLINICAL HISTORY: Vomiting, Chest pain, Dizziness TECHNIQUE: Imaging Protocol: Axial computed tomography images with coronal and sagittal reformatted images were created and reviewed CONTRAST MATERIAL: Intravenous: Omnipaque 350 Contrast volume:100 mL Oral: No COMPARISON: CT CT CHEST PE CTA from 08/07/2018 FINDINGS: CHEST: Tracheobronchial tree: Patent where visualized. Pulmonary parenchyma: There is a pleural based density in the left lower lobe. No architectural dist ortion. Visualized thyroid gland: Unremarkable. Mediastinum and Ofelia: No dominant adenopathy or fluid collection. Pleura: No effusion or pneumothorax. Heart: The heart is not dilated. Mild coronary artery calcification. No pericardial effusion.Aortic valve repair. Aorta: Thoracic aorta non-dilated. Mild atherosclerosis. Lymph nodes: Within normal limits. Soft tissues: Unremarkable. Bones:Sternal wires are in place. ABDOMEN: Liver: Normal density. There again seen hepatic cysts. Multiple calcifications are seen in the liver consistent prior granulomatous disease. No discrete mass is identified. Portal, Superior Mesenteric, and Splenic Veins: Unremarkable. Gallbladder and Biliary Tract: No definite evidence of cholelithiasis. No biliary ductal dilatation. Pancreas: Normal density, no abnormal calcifications or inflammatory process. Spleen: Calcified granuloma. Adrenals: No masses seen. Kidneys: Normal size, contour and axis. No radiodense stones or obstructive uropathy. No masses seen. Abdominal Aorta: Abdominal portion non-dilated. Mild atherosclerosis. Bowel: No obstruction or bowel wall thickening. Appendix is unremarkable. Peritoneal Cavity: No ascites, collection or mesenteric inflammatory response. No free air. Lymph Nodes: Within normal limits. Bones: Degenerative changes. Soft Tissues: There is a small fat containing umbilical hernia. Small fat containing bilateral ingui nal hernia. PELVIS: Bladder: The urinary bladder is incompletely distended. It is grossly unremarkable. Reproductive Organs: The prostate gland appears mildly enlarged impinging upon the base of the urinar y bladder. Lymph Nodes: Within normal limits. Bones: Degenerative changes. IMPRESSION: 1. No acute abdominal or pelvic process. 2. Pleural based 1.8 cm density in the left lower lobe. This may represent atelectasis or rounded pn eumonia. Pulmonary mass cannot be entirely excluded. A follow-up CT scan of the chest is recommende d to document resolution of the nodular opacity. RADIATION DOSE DELIVERED: 1,641.2mGy.cm Total DLP DATA REPOSITORY: All CT scans at this facility are submitted to the National Radiology Data Registry (NRDR) Dose Index Registry (DIR) with the [employer] (ACR). RADIATION OPTIMIZATION: All CT scans at this facility use at least one of these dose optimization te chniques: automated exposure control; mA and/or kV adjustment per patient size (includes targeted exa ms where dose is matched to clinical indication); or iterative reconstruction.
--- NOTE | 2020-03-25 19:27 | DI.VRAD_ITS ---
PROCEDURE INFORMATION: Exam: CT Head Without Contrast Exam date and time: 03/25/2020 5:37 PM Age: 54 years old Clinical indication: Dizziness; Patient HX: HX CVA 1 year ago TECHNIQUE: Imaging protocol: Computed tomography of the head without contrast. Radiation optimization: All CT scans at this facility use at least one of these dose optimization techniques: automated exposure control; mA and/or kV adjustment per patient size (includes targeted exams where dose is matched to clinical indication); or iterative reconstruction. COMPARISON: CT HEAD FOR STROKE PROTOCOL 06/10/2018 1:34 PM FINDINGS: There has been interval development of gliotic foci in the left frontal and parietal lobes and left basal ganglia. There are periventricular white matter lucencies compatible with chronic microvascular ischemic disease. There is no intracranial hemorrhage. No mass effect or midline shift. The ventricles and sulci are normal in size and configuration for age. The calvarium is intact. There is mucoperiosteal thickening of the ethmoid and right maxillary sinuses. No mastoid effusion. IMPRESSION: Chronic left-sided infarcts. No acute findings. Dictated and Authenticated by: Daniel Aquino MD. Ordering:SLAVA García MD
--- NOTE | 2020-03-25 19:45 | RT.EKG_ITS ---
APPROVED REPORT Exam: Resting ECG Patient Location: E HR:72 bpm ECG Measurements Heart Rate 72 AXIS [place] 172 P 46 QRSd 106 QRS 47 QT 407 T 82 QTc 447 Conclusion Sinus rhythm...normal P axis, V-rate 60- 99 Probable left atrial enlargement...P >50mS, <-0.10mV V1 Inferior infarct, old...Q >35mS, II III aVF I have reviewed and interpreted ECG and agree with software generated interpretation. Physician: no stemi
--- NOTE | 2020-03-25 20:17 | DI.VRAD_ITS ---
PROCEDURE INFORMATION: Exam: CT Chest With Contrast; Diagnostic Exam date and time: 03/25/2020 7:08 PM Age: 54 years old Clinical indication: Vomiting; Angina; Chest pain; Type not specified; Prior surgery TECHNIQUE: Imaging protocol: Diagnostic computed tomography of the chest with contrast. Radiation optimization: All CT scans at this facility use at least one of these dose optimization techniques: automated exposure control; mA and/or kV adjustment per patient size (includes targeted exams where dose is matched to clinical indication); or iterative reconstruction. Contrast material: [id number]; Contrast volume: 100 ml; Contrast route: INTRAVENOUS (IV); COMPARISON: CT CHEST PE CTA 08/07/2018 3:45 PM FINDINGS: There is a pleural-based density in the left lower lobe likely representing atelectasis/scarring. No airspace consolidation, ground-glass opacities, pleural effusion or pneumothorax. No evidence of pulmonary embolism although there is suboptimal pulmonary artery opacification. Status post aortic valve repair. No evidence of aortic dissection. No fracture. IMPRESSION: No acute findings. PROCEDURE INFORMATION: Exam: CT Abdomen And Pelvis With Contrast Exam date and time: 03/25/2020 7:08 PM Age: 54 years old Clinical indication: Vomiting; Angina; Chest pain; Type not specified; Prior surgery TECHNIQUE: Imaging protocol: Computed tomography of the abdomen and pelvis with contrast. Radiation optimization: All CT scans at this facility use at least one of these dose optimization techniques: automated exposure control; mA and/or kV adjustment per patient size (includes targeted exams where dose is matched to clinical indication); or iterative reconstruction. Contrast material: [id number]; Contrast volume: 100 ml; Contrast route: INTRAVENOUS (IV); COMPARISON: CT CHEST PE CTA 08/07/2018 3:45 PM FINDINGS: There are small probable hepatic cysts and numerous hepatic calcifications. Normal gallbladder. No biliary ductal dilatation. Normal kidneys, adrenal glands and pancreas. There are calcified splenic granulomas. Normal abdominal aorta. No evidence of bowel obstruction. Normal appendix. Normal urinary bladder. There are small inguinal hernias containing fat bilaterally. No free fluid or free air. No acute fracture. IMPRESSION: No acute findings. Dictated and Authenticated by: Daniel Aquino MD. Ordering:SLAVA García MD
[2020-03-25 20:44] LABS: Troponin I < 0.05 ng/mL (<0.06)
[2020-03-25] MEDS: Ondansetron O.D.T. 4 MG TABEF, 3 TABS/BTL PO (21:12)
== END 2020-03-25 21:15 | disposition home or self-care (01) ==
PROVIDERS: Emergency Provider Registered Nurse Emergency; PCP Nurse Practitioner Family
DX: R11.2 Nausea with vomiting, unspecified (principal); R07.89 Other chest pain; R14.2 Eructation
CPT/HCPCS: 36415; 74177; 80053; 93005; 99285; 70450; 71260; 83735; 83880; 84484; 85025; 85379; 85610; 93010; J3490

== ENCOUNTER 2020-03-26 16:17 | Outpatient (REF) | payer MEDICAID, SELFPAY ==
--- OUTSIDE RECORDS SUMMARY | 2020-03-26 16:20 | XMS_ITS ---
:1965 Author Organization [facility] Address [address] [place] [address] Care Team Providers Name Role Phone [place] Unavailable Unavailable PROBLEMS Type Condition ICD9-CM HZZ52-BP Onset Condition SNOMED Cod e Code Code Dates Status Problem Flat foot [pes M21.42 Active 49739 007 planus] (acquired), left foot Problem residential current Z79.01 Active 71 9353131 use of anticoagulant Problem Type 2 diabetes E11.49 Active 4213 35640 mellitus with other neurologic complication, without long-term current use of insulin Problem Flat foot [pes M21.41 Active 14258 007 planus] (acquired), right foot Problem Hammer toe of M20.42 Active 267249 [id number] second toe of left foot Problem Encounter for E11.9 Active 511156 004 diabetic foot exam Problem Right foot drop M21.371 Active 3083 [id number] Problem Hammer toe of M20.41 Active 420425 [id number] second toe of right foot Problem Nail abnormality L60.9 Active 177 73118 Problem Endocarditis, valve I38 Active 78369695 unspecified Problem Hepatitis C B19.20 Active 86773269 Problem DVT (deep venous I82.409 Active 128 023140 thrombosis) Problem Substance abuse F19.10 Active 6621 4007 Problem 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 Active 8706 5009 Problem Anemia D64.9 Active 973517988 Problem Venous hypertension I87.303 Active 112928806 of both lower extremities Problem Atherosclerosis of I70.209 Active 1 [id number] arteries of extremities Problem CVA (cerebral I63.9 Active 874253 007 vascular accident) Problem Diabetes mellitus E11.9 Active Problem Osteomyelitis M86.9 Active 428217 00 Problem Depression with F41.8 Active 2315 31778 anxiety ALLERGIES Substance Reaction Event Type Date Status Penicillin G Potassium Unknown Drug Allergy Feb, Activ e HYDROcodone Bitartrate Unknown Drug Allergy Feb, Activ e ENCOUNTERS Encounter Location Date Diagnosis [facility] [address] [facility] [address], [place] diabetic [place] [address] E11.9 ; H ammer toe of second toe of left foot M20 .42 ; Hammer toe of second toe of right foot M20.41 ; Right f oot drop M21.371 ; Flat foot [pes planus] (acquired), left foot M21.42 ; Flat foot [pes p lanus] (acquired), righ t foot M21.41 ; Venous hypertens ion of both lower extremitie s I87.303 ; Type 2 diabetes melli tus with other neurologic compl ication, without long-term curren t use of insulin E11.49 ; Atheros clerosis of arteries of extr emities I70.209 ; Onychodystroph y L60.3 and residential current use of anticoagulant Z7 9.01 [facility], [place] [address] IMMUNIZATIONS No Known Immunizations SOCIAL HISTORY Qualifiers Date Former Smoker 05/29/2018 REASON FOR REFERRAL FUNCTIONAL STATUS PLAN OF CARE Activity Details Follow Up 3-4mo Reason:DM foot/nail ca re Future Test PREV: DIABETIC FOOT EXAM VITAL SIGNS Height 69.88 in 2019-03-04 Temperature 96.7 degrees Fahrenheit 2019-03-04 Heart Rate 110 /min 2019-03-04 Respiratory Rate 18 /min 2019-03-04 Oximetry 95 % 2019-03-04 Blood pressure systolic 120 mm Hg 2019-03-04 Blood pressure diastolic 68 mm Hg 2019-03-04 MEDICATIONS Medication Instructions Dosage Frequency Start End Duration Statu s Date Date Warfarin Orally Once a 1 tablet 24h 30 day(s) Active Sodium 2.5 MG day Ferrous Orally Twice a 1 tablet 12h Active Gluconate 324 day with water (38 Fe) MG or juice between meals Metoprolol Orally Twice a 1 tablet 12h 30 day(s) Not -Takin Tartrate 50 MG day with food g ProAir HFA 108 Inhalation every 1 puff as 4h Active (90 Base) 4 hrs needed MCG/ACT Lantus 100 subcutanous at 40 units Activ e UNIT/ML bedtime Lisinopril 20 Orally Once a 1 tablet 24h Act kaushal MG day HumaLOG as directed Active KwikPen 100 UNIT/ML Gabapentin 300 Orally Once a 1 capsule 24h 30 day(s) Active MG day Tylenol Extra Orally every 6 1 tablet as 6h Active Strength 500 hrs needed MG OneTouch Active Delica Lancets Fine Aspirin 81 81 Orally Once a 1 tablet 24h 30 day(s) A ctive MG day MiraLax - as directed Active Keppra 500 MG Orally Twice a 1 tablet 12h 30 day(s) Active day Flovent HFA Inhalation Twice 1 puff 12h Act kaushal 110 MCG/ACT a day Cymbalta 30 MG Orally Twice a 1 capsule 12h Active day OneTouch Ultra as directed Activ e Blue - Protonix 40 MG Orally Once a 1 tablet 24h 30 day(s) Active day Suboxone 8-2 Sublingual Once 1 film 24h Act kaushal MG a day under the tongue and allow to dissolve 1st Tier as directed Active Unifine Pentips 31G X 5 MM Lasix 40 MG Orally Once a 1 tablet 24h 30 day(s) Act kaushal day Coumadin 5 MG Orally Once a 1 tablet 24h 30 day(s) A ctive day MetFORMIN HCl Orally Once a 2 tablet/s 24h A ctive 500 MG day with a meal PROCEDURES Procedure Date Ordered Result Body Site TRIMMING DYSTROPHIC NAILS ANY # Mar 04, 2019 RESULTS Name Result Date Reference Range PREV: DIABETIC FOOT EXAM 2019-03-04 REASON FOR VISIT Nail abnormality, referral done, nail abnormality referral done, NEW POD PATIENT - cp, pt states that he needs all his toe nails trimmed , pt states that the two big toes and the ones right beside bother him the most , chart update Insurance Providers [facility] Patient Patient Patient Patient Patient Subscriber Subscriber Subscriber Group Insurance Plan Plan Plan Plan ID Relationship Address Phone Name Date of ID Name Date of No Type Insurance Insurance Insurance Coverage to Subscriber Address Phone Name Dates SELF PAY [address] STREET SELF PAY self [employer] [id number] [place] [id number] INSURANCE MEDICAID [place] MEDICAID self [place] [id number] [facility] [id number] MEDICAL (GENERAL) HISTORY Type Description Date Medical History Diabetes mellitus Medical History Endocarditis, valve unspecified Medical History DVT (deep venous thrombosis) Medical History Depression with anxiety Medical History Hepatitis C Medical History CVA (cerebral vascular accident) Medical History Osteomyelitis Medical History Substance abuse Medical History Nail abnormality Medical History Anemia Surgical History ankle hardware placement and the removel May and Nov 2018 Surgical History back surgery herinated disc 1991 Surgical History heart vavle replacement (aortic) September 08 Hospitalization [place] [facility] [place] to IV drug use 07/2018
[2020-03-27 18:22] LABS: COVID-19 RT-PCR UVMMC Result Negative (Negative)
== END 2020-03-26 16:18 | disposition home or self-care (01) ==
LOC: NCHCN 16:17
PROVIDERS: PCP Nurse Practitioner Family; Visit Provider Nurse Practitioner Family
DX: Z20.822 Contact with and (suspected) exposure to COVID-19 (principal)
CPT/HCPCS: U0003

== ENCOUNTER 2020-03-31 00:48 | Outpatient (CLI) | payer MEDICAID, SELFPAY ==
--- NOTE | 2020-03-31 10:30 | DI.NM_ITS ---
APPROVED REPORT Exam: Pharmacologic Patient Location: Out-Patient Room/Bed: Stress Nurse: Antoinette Freeman RN Ordering Provider:FANNIE KAISER, Contact Number: [phone] BMI: 32.99 Baseline Rhythm: Sinus Rhythm Comment: borderline prolonged QT interval, P wave inversion in leads V1 and V2 Indications: Chest pain Medical History Medical History: CVA, aortic valve endocarditis, aortic valve replacement, brain abscess, depression, diabetes, DVT, gerd, hepatitis C, hypertension, [place], smoker Cardiac Medications: ondansetron, albuterol, lasix, lisinopril, suboxone, metformin, pantoprazole Allergies: penicillin, hydrocodone Cardiac Risk Factors: Hypertension, hyperlipidemia, diabetes, smoker, obesity, family hx, PVD/CVD, [place] PD Previous Cardiac Procedures: Aortic valve replacement Pretest Chest Pain Characteristics: None. Exercise History: Sedentary Physical Disabilities: R side impairment Lung Sounds: Clear to auscultation Heart Sounds: Regular Stress Test Details Test: Pharmacologic stress testing performed using 0.4 mg of regadenoson per 5 mL given IV over 10 s econds. Reason for pharmacologic stress test: physical limitation. Nuclear Acquisition: Rest Tc-99m/Stress Tc-99m 1 day Rest Isotope: Tc-99m Sestamibi. Dose: 12.0 Date: 03/31/20 Injection Time: 1025 Stress Isotope: Tc-99m Sestamibi. Dose: 38.5 Date: 03/31/20 Injection Time: 1155 HR Resting HR Supine: 71 bpm Max Heart Rate (APMHR): 166 bpm Target HR (85% APMHR): 141 bpm Max HR Achieved: 96 bpm % of APMHR: 57 BP Resting BP Supine: 144/102 mmHg Max BP: 148/92 mmHg ECG Resting ECG: Sinus Rhythm Comment: borderline prolonged QT interval, P wave inversion in leads V1 and V2 Stress ECG: Sinus Rhythm ST Change: No significant ST segment changes noted Arrhythmia: PVC Recovery ECG: Sinus Rhythm Recovery ST Change: No significant ST segment changes noted Clinical Stress Symptoms: Dyspnea Rate Pressure Product: 80964 Stress ECG Conclusion 1. Is a pharmacological stress test. 2. Patient no symptoms suggestive of ischemia. 3. The ECG portion of this exam is nondiagnostic. Stress Test Summary STAGE HR BP Symptoms NOTES Supine 71 144/102 1 min post Lexiscan injection 77 144/96 SOB 3 min post Lexiscan injection 90 140/90 symptoms resolved 6 min post Lexiscan injection 81 148/92 MPI Conclusion Ejection fraction was 47% with stress. There were no wall motion abnormalities. There is a predominant fixed perfusion defect of the mid inferior wall This represents an abnormal SPECT stress test. Radiologist Interpretation Radiologist agrees with Dye Colorist Formulator's Interpretation. Radiologist Interpretation by: Nidhi Beckett MD Interpretation Date/Time: 04/01/2020 14:20:04
[2020-03-31] MEDS: Regadenoson 0.4 MG/5 ML SYR IVP (11:40)
== END 2020-03-31 00:49 ==
LOC: DI 00:48
PROVIDERS: PCP Nurse Practitioner Family; Visit Provider Physician Assistant
DX: R07.9 Chest pain, unspecified (principal); I10 Essential (primary) hypertension; E78.5 Hyperlipidemia, unspecified; E11.9 Type 2 diabetes mellitus without complications; F17.210 Nicotine dependence, cigarettes, uncomplicated; E66.9 Obesity, unspecified; Z82.49 Family history of ischemic heart disease and other diseases of the circulatory system; J44.9 Chronic obstructive pulmonary disease, unspecified
CPT/HCPCS: 78452; 93017; J2785

== ENCOUNTER 2020-04-10 03:08 | Outpatient (RCR) | payer MEDICAID, SELFPAY | END 2020-04-19 23:59 | disposition home or self-care (01) | LOC: RT 03:08 | PROVIDERS: PCP Nurse Practitioner Family; Visit Provider Nurse Practitioner Family | DX: R69 Illness, unspecified (principal) ==

== ENCOUNTER 2020-04-11 15:46 | Emergency (ER) | payer MEDICAID, SELFPAY ==
--- NOTE | 2020-04-11 15:30 | RT.EKG_ITS ---
APPROVED REPORT Exam: Resting ECG Patient Location: E HR:86 bpm ECG Measurements Heart Rate 86 AXIS IL 157 P 40 QRSd 107 QRS 43 QT 369 T 72 QTc 442 Conclusion Sinus rhythm...normal P axis, V-rate 60- 99 Probable left atrial enlargement...P >50mS, <-0.10mV V1 Inferior infarct, old...Q >35mS, II III aVF I have reviewed and interpreted ECG and agree with software generated interpretation.
[2020-04-11 15:44] VITALS: BP 105/66; PULSE 98; RESP 16; TEMP 36.6; O2SAT 93
--- NOTE | 2020-04-11 15:45 | DI.RAD_ITS ---
EXAM: XR CHEST 2V PA LATERAL CLINICAL HISTORY: dizziness, R facial droop, r/o acute disease. TECHNIQUE: 2D digital imaging was performed. COMPARISON: CT CT CHEST/ABD/PEL W from 03/25/2020 FINDINGS: Again nor sternotomy wires and a prosthetic aortic valve which is unchanged in position. Heart size unchanged. Right lung is clear. Mild infiltrate in the posterior basal segment left lower lobe is again noted. No pleural effusions. IMPRESSION: Small area of infiltrate in left lower lobe is again noted. This corresponds to a pleural-based infi ltrate seen on the CT scan 03/25/2020 which will require follow up to resolution on CT scan. There a re no additional focal lung findings nor pleural effusions.Sternotomy. Prosthetic aortic valve. Nor mal heart size. No pulmonary edema DATA REPOSITORY: RADIATION DOSE DELIVERED:
--- NOTE | 2020-04-11 15:45 | DI.CT_ITS ---
EXAM: CT BRAIN NECK CTA CLINICAL HISTORY: R facial droop, dizziness, r/o acute cva/occlusion. TECHNIQUE: Imaging Protocol: Axial CT angiography was performed with multi-slice acquisition and mu lti-planar and/or 3D reconstructions. CONTRAST MATERIAL: Intravenous: Omnipaque 350 Contrast volume:85 cc COMPARISON: CT CT HEAD WO from 03/25/[address] CHEST/ABD/PEL W from 03/25/[address] HEAD WO from 04/11/2020 FINDINGS: CTA Neck W: Aortic arch anatomy: Conventional. There is no significant stenosis at the origin of the great vesse ls off the aortic arch. Sternotomy wires are noted. Anterior circulation: There is no significant stenosis in the common carotid arteries and both carotid bifurcations are pat ent without significant atherosclerotic disease at these levels nor in the proximal internal carotid arteries. The proximal aspect of the left internal carotid artery is slightly tortuous but other the but without significant stenosis. Right internal carotid artery in the mid neck is also slightly to rtuous but without significant stenosis. Both internal carotid arteries are patent in the skull base -carotid canals. Posterior circulation: Both vertebral arteries originated conventional fashion off of the subclavian arteries without signif icant stenosis at their origins nor evidence of stenosis in subclavian arteries proximal to the verte bral artery takeoff points. Both vertebral arteries ascend with normal and equal luminal diameters i n the foramen transverse area with no evidence of intraluminal filling defects nor dissection. Both contribute equally to the formation of the basilar artery at the skull base. CTA Brain W: Anterior circulation: Both internal carotid arteries are patent in the skull base-carotid canals as well as within the cave rnous sinuses. The supraclinoid aspects of the internal carotid arteries are patent. Middle cerebra l arteries are demonstrated to be patent bilaterally at the sylvian fissure branches. There are no a neurysms in these vessels. The left A1 segment is patent. The right A1 segment is thin. Both anter ior cerebral arteries are patent. There is no evidence of aneurysm at the level of the anterior comm unicating artery. Posterior circulation: Basilar artery is formed by both vertebral arteries at the skull base, both vertebral arteries of equ al diameters. The anterior inferior cerebellar arteries are patent. Distally the superior cerebella r arteries are patent bilaterally. Above this level the basilar artery terminates as patent bilatera l posterior cerebral arteries. On the left side there is contribution from a posterior communicating artery on the left side of the [id number]. Similar vessel is not seen on the right side. CT BRAIN: There is no evidence of intracranial hemorrhage. No ring enhancing lesions in the brain no r abnormal meningeal enhancement. Non recent infarction in the territory left middle cerebral artery again noted. No new territorial infarction. IMPRESSION: 1. Patent carotid and vertebral arteries in the neck with no evidence of significant stenosis in thes e vessels. 2. In the intracranial compartment the right A1 segment is thin, of questionable significance. Ther e is a posterior communicating artery noted on the left side of the [id number]. 3. No evidence of aneurysm. No obvious vascular malformations. RADIATION DOSE DELIVERED: 1,294.84mGy.cm Total DLP DATA REPOSITORY: All CT scans at this facility are submitted to the National Radiology Data Registry (NRDR) Dose Index Registry (DIR) with the [employer] (ACR). RADIATION OPTIMIZATION: All CT scans at this facility use at least one of these dose optimization te chniques: automated exposure control; mA and/or kV adjustment per patient size (includes targeted exa ms where dose is matched to clinical indication); or iterative reconstruction.
--- NOTE | 2020-04-11 15:45 | W.ED.GENAD ---
Discharge Plan Disposition Patient Disposition: AGAINST MEDICAL ADVICE Condition: Stable Discharge Details Clinical Impression: TIA (transient ischemic attack), Tachycardia, Dizziness Primary Care Provider: Lexii Luna ED Provider: Leticia Epperson Home Meds and New Rx's Prescriptions: Continued acetaminophen [Tylenol] 325 mg Tablet 650 mg PO Q4H PRN PRNQty: 0 RF: 0 furosemide [Lasix] 40 mg Tablet 40 mg PO BID RF: 0 gabapentin 300 mg Capsule 300 mg PO TID RF: 0 lisinopril 20 mg Tablet 20 mg PO DAILY Qty: 30 RF: 5 buprenorphine-naloxone [Suboxone] 8-2 mg Film See Rx Instructions .ROUTE .COMPLEX RF: 0 Trulicity 0.75 mg/0.5 mL pen injector 0.75 mg SUBCUT .WEEKLY RF: 0 metformin 500 mg tablet extended release 24 hr 1,000 mg PO BID RF: 0 pantoprazole 40 mg tablet,delayed release (DR/EC) 40 mg PO DAILY RF: 0 Discharge Instructions Instructions: Transient Ischemic Attack (ED), Dizziness (ED) Additional Instructions: You are leaving the hospital AGAINST MEDICAL ADVICE. Your episode of facial droop could be an indicator of a TIA (transient ischemic attack) which is a warning sign of a stroke. It is recommended that you stay overnight in the hospital for continued monitoring of your heart rate and blood pressure. It is recommended that you restart taking a baby aspirin which is 81 mg daily tomorrow. You have been placed on care management list to arrange for a follow-up appointment with your primary care doctor and neurology for follow-up within the next 1 to 2 weeks. Please return immediately to the emergency department if you develop any worsening or new concerning symptoms for reevaluation. 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 Blood sugar 130. EMS also noted that patient had a 10-second episode of right-sided facial droop and he reported right facial numbness that then resolved in route. He was last admitted to [facility] ICU on 03/24/2019 with acute hemorrhagic shock (hypotension, tachycardia, ERICK, elevated lactate, anemia with H/H 5.9/18.6 of due to upper GI bleeding in setting of supratherapeutic INR (6.2) and aspirin therapy. His Coumadin and aspirin have been stopped at that time. Patient had an MPI nuc med stress test on 03/31/2020 which noted Stress ECG Conclusion 1. Is a pharmacological stress test. 2. Patient no symptoms suggestive of ischemia. 3. The ECG portion of this exam is nondiagnostic. MPI Conclusion Ejection fraction was 47% with stress. There were no wall motion abnormalities. There is a predominant fixed perfusion defect of the mid inferior wall This represents an abnormal SPECT stress test. EKG on arrival notes a rate of 86, sinus, no STEMI, nondiagnostic. Vitals within normal limits. He is oriented x3. He has a baseline muscle strength right upper and lower extremity 4/5 status post CVA. No facial droop noted. No no acute focal deficits noted. Differential diagnosis includes acute CVA, arrhythmia, electrolyte abnormality, dehydration, etc. Will place an IV, bolus IV fluids, screening labs, CTA brain and neck, chest x-ray. Labs and imaging reviewed. White blood cell count 13. Creatinine 1.4. Troponin negative. Noncon CT head negative. Chest x-ray negative. Patient referred for CTA head and neck which noted a questionable vasospasm versus erythematous disease left MCA. Imaging reviewed with [facility] neurology who found that this is likely not an acute stroke but recommended admission overnight for telemetry monitoring for potential TIA and to start a baby aspirin. Patient had no further episodes while here. Patient declining to stay in the hospital for admission. He demonstrates capacity make decisions. Despite our efforts, the patient has decided to leave against medical advice. He has a normal mental status and full decisional capacity. The patient understands his condition and the risks of leaving AMA, including BUT NOT LIMITED TO permanent disability, , etc., and has had an opportunity to ask questions about his medical condition. The patient has been informed that he may return for care at any time, and has been referred to his local medical physician for follow up DONIS. AMA form signed with verbal permission of patient. Case discussed with hospitalist who agreed with plan for starting a baby aspirin. Patient also referred for neurology for stat follow-up. Advised to call his primary care doctor Mike morning for follow-up. Patient placed on care management list to arrange for follow-up appointment with his primary care doctor and neurology within the next 1 to 2 weeks. Usual and customary return precautions given prior to discharge. Medical Records Medical records reviewed: Yes I reviewed the patient's medical records. Imaging Data Radiologic Study: Radiologist's impression: CT Head Without Contrast Exam date and time: 04/11/2020 4:20 PM Age: 54 years old Clinical indication: Weakness, facial; Additional info: R facial droop TECHNIQUE: Imaging protocol: Computed tomography of the head without contrast. Other technique: STROKE PROTOCOL was implemented. COMPARISON: CT HEAD WO 03/25/2020 7:00 PM FINDINGS: Brain: No change since 03/25/2020. Chronic infarcts in the left frontal, temporal and parietal lobes and left basal ganglia with associated atrophy and compensatory enlargement of left lateral ventricle.. Old infarct right basal ganglia. No intra or extra-axial mass or hemorrhage. No midline shift. Cerebral ventricles: No ventriculomegaly. Bones/joints: Unremarkable. No acute fracture. Paranasal sinuses: Membrane thickening of the ethmoid and right maxillary sinus. Mastoid air cells: Visualized mastoid air cells are well aerated. Soft tissues: Unremarkable. IMPRESSION: 1. No acute findings and no appreciable change from 03/25/2020. 2. Chronic infarcts with associated encephalomalacia in left cerebral hemisphere and right basal ganglia XR Chest, 2 Views Exam date and time: 04/11/2020 4:25 PM Age: 54 years old Clinical indication: Other: Weakness TECHNIQUE: Imaging protocol: XR of the chest Views: 2 views. COMPARISON: CT CHEST/ABD/PEL W 03/25/2020 7:08 PM FINDINGS: Lungs: Unremarkable. No consolidation. Pleural spaces: Unremarkable. No pleural effusion. No pneumothorax. Heart/Mediastinum: Unremarkable. No cardiomegaly. Bones/joints: Sternotomy with AVR. Mild degenerative arthritis in the spine. IMPRESSION: No acute findings. Lab Data Lab results reviewed: Yes I reviewed the patient's lab results. Labs: Laboratory Tests Range/Units 04/11/20 04/11/20 04/11/20 16:15 16:15 16:15 WBC (4.4-10.8) 10^3/uL 13.62 H RBC (4.36-5.78) 10^6/uL 5.08 Hgb (13.5-17.5) g/dL 15.0 Hct (40.0-50.0) % 45.8 MCV (80-95) fL 90.2 MCH (27.0-33.0) pg 29.5 MCHC (32.0-36.0) % 32.8 RDW (11.8-14.1) % 13.0 Plt Count (130-400) 10^3/uL 333 MPV (8.0-11.0) fL 9.7 Immature Gran % 0.4 Neutrophils % 69.1 Lymphocytes % 12.2 Monocytes % 7.6 Eosinophils % 9.7 Basophils % 1.0 Nucleated RBC % % 0 Absolute Neutrophils (1.2-6.7) 10^3/uL 9.41 H Absolute Lymphocytes (1.2-3.4) 10^3/uL 1.66 Absolute Monocytes (0.1-0.8) 10^3/uL 1.04 H Absolute Eosinophils (0.0-0.7) 10^3/uL 1.32 H Absolute Basophils (0.0-0.2) 10^3/uL 0.14 PT (9.3-11.0) sec 10.1 INR (0.9-1.1) 1.0 APTT (21.0-27.5) sec 22.7 Sodium (136-145) mmol/L 141 Potassium (3.5-5.1) mmol/L 4.0 Chloride (98-107) mmol/L 104 Carbon Dioxide (21.0-32.0) mmol/L 25.8 Anion Gap (3-11) mmol/L 11.2 H BUN (7-18) mg/dL 17 Creatinine (0.70-1.30) mg/dL 1.4 H Estimated GFR/1.73 m2 (mL/min/1.73m2) 52.81 Glucose (74-106) mg/dL 107 H Calcium (8.5-10.1) mg/dL 9.1 Magnesium (1.8-2.4) mg/dL 1.9 Total Bilirubin (0.2-1.0) mg/dL 0.2 AST (15-37) U/L 13 L ALT (16-63) U/L 16 Alkaline Phosphatase (46-116) U/L 74 Troponin I (<0.06) ng/mL < 0.05 Total Protein (6.4-8.2) g/dL 7.9 Albumin (3.4-5.0) g/dL 3.5 ECG Data Attestation: I personally reviewed and interpreted this ECG (s) as follows: Interpretation: Rate of 86, sinus, no acute ST elevation or depression. ME 157. QRS 107. QTc 442. HPI General Mode of arrival: EMS. Date/Time Provider Initiated Documentation: 04/11/20 15:48. Limitations to Documentation: no limitations. Information obtained by: patient. 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 Patient had a recent stress test at the hospital for his intermittent dizziness. He describes it as a lightheadedness that occurs at random. He states he was sitting at home today when he felt lightheadedness and his family checked his heart rate and it was in the 130s. EMS states upon their arrival heart rate within normal limits. EMS noted a 10-second episode of right-sided facial droop that resolved in route. Patient does recall this occurring and does admit to feeling a facial droop and right-sided facial numbness that was brief and now resolved. He denies any recent illness, fever, chest pain, shortness of breath, abdominal pain, vomiting, diarrhea. Patient uses a walker at baseline as needed. Related Data Home Medications Medication Instructions Recorded Confirmed acetaminophen [Tylenol] 650 mg PO Q4H PRN PRN #0 tab 08/08/18 04/11/20 furosemide [Lasix] 40 mg PO BID 02/15/19 04/11/20 gabapentin 300 mg PO TID 02/15/19 04/11/20 lisinopril 20 mg PO DAILY #30 tab 02/21/19 04/11/20 buprenorphine-naloxone [Suboxone] See Rx Instructions .ROUTE .COMPLEX 03/24/19 04/11/20 Trulicity 0.75 mg SUBCUT .WEEKLY 03/10/20 04/11/20 metformin 1,000 mg PO BID 03/25/20 04/11/20 pantoprazole 40 mg PO DAILY 03/25/20 04/11/20 Previous Rx's Medication Instructions Recorded acetaminophen [Tylenol] 650 mg PO Q4H PRN PRN #0 tab 08/08/18 lisinopril 20 mg PO DAILY #30 tab 02/21/19 Allergies Allergy/AdvReac Type Severity Reaction Status Date / Time Penicillins AdvReac Severe Vomiting Verified 03/25/20 17:32 hydrocodone AdvReac Intermediate vomiting Verified 03/25/20 17:32 General LILLIAN: 2 Review of Systems All systems reviewed & are unremarkable except as noted in HPI and below Constitutional Constitutional: Reports as per HPI, Denies chills and Denies fever(s) Eyes Eyes: Denies blurry vision ENT Ears, Nose, Mouth, and Throat: Reports dizziness, Denies sore throat and Denies throat swelling Cardiovascular Cardiovascular: Denies chest pain and Denies dyspnea Respiratory Respiratory: Denies cough and Denies dyspnea Gastrointestinal Gastrointestinal: Denies abdominal pain, Denies diarrhea and Denies vomiting Genitourinary Genitourinary: Denies hematuria and Denies dysuria Musculoskeletal Musculoskeletal: Denies back pain and Denies numbness Integumentary/Breasts Skin/Breast: Denies lesions and Denies rash Neurologic Neurologic: Reports dizziness, Denies localized weakness and Denies numbness Allergic/Immunologic Allergic/Immunologic: Denies throat swelling [facility] Medical History ERICK (acute kidney injury) Aortic insufficiency s/p valve replacement Aortic valve endocarditis 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 GERD (gastroesophageal reflux disease) HCAP (healthcare-associated pneumonia) 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) Hepatitis C Hx of deep venous thrombosis on Coumadin Hypertension Hypomagnesemia Intractable hiccups Lactic acidosis MSSA (methicillin susceptible Staphylococcus aureus) septicemia Obstructive sleep apnea Opiate dependence managed on suboxone Osteomyelitis of left fibula Right rotator cuff tear Sepsis Sinus pause Sinus tachycardia Smoker Splenic abscess Streptococcus pneumoniae infection Tinea corporis Wound of left ankle Surgical History H/O aortic valve replacement Pericardial aortic valve at [facility] [place] - 08/21/2018 - Magna Ease 25 mm History of ankle surgery S/P hardware removal L ankle. S/P percutaneous endoscopic gastrostomy (PEG) tube placement S/P spinal surgery Family History Father Heart disease in his 50's. Mother COPD (chronic obstructive pulmonary disease) Social History Smoking/Tobacco Use Status: Current every day Tobacco Type: cigarettes Smoking risk assessment performed?: Yes Alcohol Intake: never Drug use: Current Sobriety Substance use type: marijuana Caregiver/Support person: Yes Household members: spouse current occupation: Disabled Current gender identity: male Do you feel safe at home: Yes Do you feel safe in your relationship?: Yes Exam Const General: cooperative, no acute distress and ill appearing chronically Orientation: alert, awake and oriented x3 HENMT Head: normal to inspection Face and sinus: normal facial exam Eyes General: appearance normal, both eyes and all related structures Pupils: PERRL EOM: EOM intact bilaterally Neck Neck: normal visual inspection and No submandibular swelling Lymphatic: no lymphadenopathy noted Chest Chest: normal inspection of the chest and no tenderness Resp Effort & Inspection: normal respiratory effort and able to speak in complete sentences Auscultation: clear to auscultation bilaterally Cardio Rate: regular rate Rhythm: regular rhythm GI Inspection: normal to inspection Palpation: soft, not firm, not rigid and nontender Auscultation: normal bowel sounds Back/Spine/Pelvis Thoracic/Lumbar Spine: thoracic and lumbar spine normal to inspection Pelvis: no pain with anterior-posterior compression Skin General skin exam: no rashes or lesions noted Neuro General: patient alert, patient awake, patient oriented x3, moves all extremities and no meningeal signs Cranial Nerves: CN's II-XI intact bilaterally and other (No right facial droop noted on exam.) Cognition: normal cognition Speech: abnormal speech slurred (At baseline) Motor: other (Muscle strength 4/5 RUE/RLE, baseline status post CVA) Sensory Exam: no sensory deficits noted Extrem General: normal to inspection, full ROM, capillary refill normal, no calf tenderness bilaterally and no edema Psych Appearance: grossly normal Mental Status: mental status grossly normal Speech and Movement: speech and movement normal Affect: normal affect
--- NOTE | 2020-04-11 16:00 | DI.CT_ITS ---
EXAM: CT HEAD WO CLINICAL HISTORY: R facial droop, dizziness, r/o acute cva. TECHNIQUE: Imaging Protocol: Axial computed tomography images with coronal and sagittal reformatted images were created and reviewed COMPARISON: CT CT HEAD WO from 03/25/2020 FINDINGS: There are no skull fractures nor fluid in the visualized paranasal sinuses. Multilevel mural mucosa l thickening in the right maxillary sinus is again noted, not associated with fluid levels. Left max illary sinus is clear. For focal mucosal thickening or post inflammatory retention cyst in the right sphenoid sinus is also unchanged. Again noted is evidence of previous nonacute infarct in the left middle cerebral artery territory wit h again noted an element of ex vacuo dilatation of the left lateral ventricle. No shift of midline s tructures. Also noted is a nonhemorrhagic separate area of unchanged prior infarction in the left fr ontal parietal region. There is no evidence of intracranial hemorrhage, new mass effect, or shift of midline structures. Th ere are no extra-axial fluid collections. Ventricular size is unchanged. No new findings in the pos terior fossa-cerebellar hemispheres. No cerebellar tonsillar ectopia. IMPRESSION: No acute intracranial findings on this noninfused CT scan of the brain. Non recent left-sided infarcts, unchanged. Paranasal sinus findings as described above, also unchanged and not associated with fluid levels. RADIATION DOSE DELIVERED: 879.42mGy.cm Total DLP DATA REPOSITORY: All CT scans at this facility are submitted to the National Radiology Data Registry (NRDR) Dose Index Registry (DIR) with the [employer] (A[employer]). RADIATION OPTIMIZATION: All CT scans at this facility use at least one of these dose optimization te chniques: automated exposure control; mA and/or kV adjustment per patient size (includes targeted exa ms where dose is matched to clinical indication); or iterative reconstruction.
[2020-04-11 16:23] LABS: Abs Immature Grans 0.05 10^3/uL (0.0-0.06); Absolute Basophil Count 0.14 10^3/uL (0.0-0.2); Absolute Eosinophil Count 1.32 10^3/uL (0.0-0.7); Absolute Lymphocyte Count 1.66 10^3/uL (1.2-3.4); Eosinophils % 9.7; HCT 45.8 % (40.0-50.0); Immature Grans % 0.4; Lymphocytes % 12.2; MCH 29.5 pg (27.0-33.0); MCHC 32.8 % (32.0-36.0); MCV 90.2 fL (80-95); MPV 9.7 fL (8.0-11.0); Monocytes % 7.6; Neutrophils % 69.1; Nucleated RBC 0 %; Platelet Count 333 10^3/uL (130-400); RBC 5.08 10^6/uL (4.36-5.78); WBC 13.62 10^3/uL (4.4-10.8)
[2020-04-11 16:25] LABS: Absolute Monocyte Count 1.04 10^3/uL (0.1-0.8); Absolute Neutrophil Count 9.41 10^3/uL (1.2-6.7)
[2020-04-11 16:36] LABS: PTT Activated 22.7 sec (21.0-27.5); Prothrombin Time 10.1 sec (9.3-11.0)
--- NOTE | 2020-04-11 16:38 | DI.VRAD_ITS ---
PROCEDURE INFORMATION: Exam: CT Head Without Contrast Exam date and time: 04/11/2020 4:20 PM Age: 54 years old Clinical indication: Weakness, facial; Additional info: R facial droop TECHNIQUE: Imaging protocol: Computed tomography of the head without contrast. Other technique: STROKE PROTOCOL was implemented. COMPARISON: CT HEAD WO 03/25/2020 7:00 PM FINDINGS: Brain: No change since 03/25/2020. Chronic infarcts in the left frontal, temporal and parietal lobes and left basal ganglia with associated atrophy and compensatory enlargement of left lateral ventricle.. Old infarct right basal ganglia. No intra or extra-axial mass or hemorrhage. No midline shift. Cerebral ventricles: No ventriculomegaly. Bones/joints: Unremarkable. No acute fracture. Paranasal sinuses: Membrane thickening of the ethmoid and right maxillary sinus. Mastoid air cells: Visualized mastoid air cells are well aerated. Soft tissues: Unremarkable. IMPRESSION: 1. No acute findings and no appreciable change from 03/25/2020. 2. Chronic infarcts with associated encephalomalacia in left cerebral hemisphere and right basal ganglia ASSESSMENT: ASPECTS (Lo Stroke Program Early CT Score) is 10. Dictated and Authenticated by: Alice Ni MD. Ordering:PAKO Kelly MD
[2020-04-11 16:42] LABS: ALT 16 U/L (16-63); AST 13 U/L (15-37); Albumin 3.5 g/dL (3.4-5.0); Alkaline Phosphatase 74 U/L (46-116); Anion Gap 11.2 mmol/L (3-11); BUN 17 mg/dL (7-18); Bilirubin, Total 0.2 mg/dL (0.2-1.0); CO2 25.8 mmol/L (21.0-32.0); CREATININE 1.4 mg/dL (0.70-1.30); Calcium 9.1 mg/dL (8.5-10.1); Chloride 104 mmol/L (98-107); Estimated GFR 52.81 (mL/min/1.73m2); Glucose 107 mg/dL (74-106); Magnesium 1.9 mg/dL (1.8-2.4); Sodium 141 mmol/L (136-145); Total Protein 7.9 g/dL (6.4-8.2); Troponin I < 0.05 ng/mL (<0.06)
--- NOTE | 2020-04-11 16:42 | DI.VRAD_ITS ---
PROCEDURE INFORMATION: Exam: XR Chest, 2 Views Exam date and time: 04/11/2020 4:25 PM Age: 54 years old Clinical indication: Other: Weakness TECHNIQUE: Imaging protocol: XR of the chest Views: 2 views. COMPARISON: CT CHEST/ABD/PEL W 03/25/2020 7:08 PM FINDINGS: Lungs: Unremarkable. No consolidation. Pleural spaces: Unremarkable. No pleural effusion. No pneumothorax. Heart/Mediastinum: Unremarkable. No cardiomegaly. Bones/joints: Sternotomy with AVR. Mild degenerative arthritis in the spine. IMPRESSION: No acute findings. Dictated and Authenticated by: Alice Ni MD. Ordering:PAKO Kelly MD
[2020-04-11] MEDS: Normal Saline 500 ML IV (16:54)
--- NOTE | 2020-04-11 16:55 | NUR.NOTE ---
22 L hand IV started with blood draw and IVF infusing through this line, not L AC. [facility] L hand IV option to chart
[2020-04-11] MEDS: Normal Saline - Diluent 50 ML VIAL IV (17:14)
[2020-04-11] MEDS: Normal Saline Flush 10 ML SYR IVP (17:14)
[2020-04-11] MEDS: Omnipaque 350 MG/ML 100 ML BTL 85 ML IJ (17:14)
[2020-04-11 17:23] VITALS: BP 121/69; PULSE 88; RESP 17; O2SAT 95
--- NOTE | 2020-04-11 17:47 | DI.VRAD_ITS ---
PROCEDURE INFORMATION: Exam: CT Angiography Head With Contrast, Arteries Exam date and time: 04/11/2020 3:58 PM Age: 54 years old Clinical indication: R facial droop TECHNIQUE: Imaging protocol: Computed tomography angiography of the head with intravenous contrast. 3D rendering (Not supervised by radiologist): MIP and/or 3D reconstructed images were created by the technologist. Radiation optimization: All CT scans at this facility use at least one of these dose optimization techniques: automated exposure control; mA and/or kV adjustment per patient size (includes targeted exams where dose is matched to clinical indication); or iterative reconstruction. COMPARISON: CT head 04/11/2020 and 03/25/2020. FINDINGS: ANTERIOR CIRCULATION: Right internal carotid artery: Unremarkable. Intracranial segment is patent with no significant stenosis. No aneurysm. Right middle cerebral artery: Unremarkable. No occlusion or significant stenosis. No aneurysm. Right anterior cerebral artery: Unremarkable. No occlusion or significant stenosis. No aneurysm. Left internal carotid artery: Minimal atheromatous calcification in left internal carotid artery. Left middle cerebral artery: Left middle cerebral artery is slightly smaller than the right with minimal irregularity that could be due to atheromatous disease or vasospasm. No filling defect is identified and there is no focal stenosis or aneurysm. Left anterior cerebral artery: Unremarkable. No occlusion or significant stenosis. No aneurysm. POSTERIOR CIRCULATION: Right vertebral artery: Unremarkable. No occlusion or significant stenosis. No aneurysm. Left vertebral artery: Unremarkable. No occlusion or significant stenosis. No aneurysm. Basilar artery: Unremarkable. No occlusion or significant stenosis. No aneurysm. Right posterior cerebral artery: Unremarkable. No occlusion or significant stenosis. No aneurysm. Left posterior cerebral artery: Unremarkable. No occlusion or significant stenosis. No aneurysm. Brain: Chronic infarcts in the left frontal, temporal and parietal lobes and left basal ganglia with associated atrophy and compensatory enlargement of left lateral ventricle.. Old infarct right basal ganglia. No intra or extra-axial mass or hemorrhage. No midline shift. Cerebral ventricles: Compensatory enlargement of the left lateral ventricle. Paranasal sinuses: Membrane thickening in the ethmoid sinuses and right maxillary antrum. Bones/joints: Unremarkable. No acute fracture. Soft tissues: Unremarkable. IMPRESSION: 1. No focal stenosis or occlusion. 2. Chronic infarcts in the left cerebral hemisphere. 3. Slight diminution of the left middle cerebral artery compared with the right with slight left MCA irregularity that could be due to atheromatous disease or vasospasm. No filling defects are identified to suggest thrombosis. PROCEDURE INFORMATION: Exam: CT Angiography Neck With Contrast Exam date and time: 04/11/2020 3:58 PM Age: 54 years old Clinical indication: R facial droop TECHNIQUE: Imaging protocol: Computed tomography angiography of the neck with intravenous contrast. 3D rendering (Not supervised by radiologist): MIP and/or 3D reconstructed images were created by the technologist. COMPARISON: No relevant prior studies available. FINDINGS: Right common carotid artery: No stenosis. No dissection or occlusion. Right internal carotid artery: No stenosis of the extracranial segment. No dissection or occlusion. Right external carotid artery: No occlusion or stenosis of the origin. Right vertebral artery: No stenosis. No dissection or occlusion. Left common carotid artery: No stenosis. No dissection or occlusion. Left internal carotid artery: No stenosis of the extracranial segment. No dissection or occlusion. Left external carotid artery: No occlusion or stenosis of the origin. Left vertebral artery: No stenosis. No dissection or occlusion. Bones/joints: Sternotomy. Soft tissues: Normal. No significant soft tissue swelling. IMPRESSION: Normal CT angiogram of the neck. REFERENCES: NASCET CRITERIA. The degree of internal carotid artery stenosis is based on NASCET criteria. Normal is no stenosis. Mild is less than 50% stenosis. Moderate is 50-69% stenosis. Severe is 70% to 99% stenosis. Total occlusion is no detectable patent lumen. Dictated and Authenticated by: Alice Ni MD. Ordering:PAKO Kelly MD
--- NOTE | 2020-04-11 19:30 | NUR.NOTE ---
referral faxed to PCP and care management for follow up care regarding ER visit requested by Dr. Epperson. Nursing Note:
[2020-04-11] MEDS: Aspirin 81 MG CHEW CH (19:32)
== END 2020-04-11 19:45 | disposition left against medical advice (07) ==
LOC: ER 21:36
PROVIDERS: Emergency Provider Physician Assistant; PCP Nurse Practitioner Family
DX: G45.9 Transient cerebral ischemic attack, unspecified (principal); R00.0 Tachycardia, unspecified; R42 Dizziness and giddiness; Z53.29 Procedure and treatment not carried out because of patient's decision for other reasons; I10 Essential (primary) hypertension; E11.9 Type 2 diabetes mellitus without complications; Z79.84 Long term (current) use of oral hypoglycemic drugs
CPT/HCPCS: 70496; 70498; 80053; 93005; 96360; 99285; 70450; 71046; 83735; 84484; 85025; 85610; 85730; 93010; 99284; J3490

== ENCOUNTER 2020-04-15 03:11 | Outpatient (RCR) | payer MEDICAID, SELFPAY ==
--- NOTE | 2020-04-15 14:00 | HOLTER_ITS ---
APPROVED REPORT Exam Type: HOLTER MONITOR APPLICATION Patient Location: O Conclusion This is a 48-hour monitor ordered for indication of chest pain. The patient was in normal sinus rhythm for the majority of the recording with an average heart rate o f 84 bpm. There were no episodes of SVT nor any episodes of VT. There were rare PVCs/PACs. There were no episodes of atrial fibrillation, no pauses greater than 3 seconds and no evidence of hi gh degree heart block. All patient diary events were associated with sinus rhythm or sinus tachycardia.
== END 2020-04-19 23:59 | disposition home or self-care (01) ==
LOC: RT 03:11
PROVIDERS: PCP Nurse Practitioner Family; Visit Provider Nurse Practitioner Family
DX: R07.9 Chest pain, unspecified (principal); R06.02 Shortness of breath; J44.9 Chronic obstructive pulmonary disease, unspecified
CPT/HCPCS: 93225; 93226

== ENCOUNTER 2020-04-17 03:08 | Outpatient (CLI) | payer MEDICAID, SELFPAY ==
--- NOTE | 2020-04-17 12:30 | DI.US_ITS ---
APPROVED REPORT EXAM: Comprehensive 2D, Doppler, and color-flow Echocardiogram Patient Location: Out-Patient Qc Manager: Marysol Post RDCS (AE) Indications: Chest pain, SOB, Bioprosthetic Aortic Valve Other Information Study Quality: Adequate Conclusion Normal left ventricular wall thickness and chamber size. Estimated ejection fraction is borderline no rmal at 50 to 55%. There are no segmental wall motion abnormalities Right ventricle appears normal in size and systolic function Both atria are normal in size There is a bioprosthetic aortic valve. Mean gradient is 16. There is no aortic regurgitation or parav alvular leak Normal tricuspid valve with mild regurgitation. Estimated right ventricular systolic pressure is 33 m mHg Normal mitral valve with trace regurgitation Normal pulmonic valve with trace regurgitation Dilated ascending aorta Wall motion Left Ventricle The left ventricle is normal size. The left ventricular systolic function is normal. The left ventric ular ejection fraction is within the normal range. There is normal left ventricular wall thickness. T here is normal LV segmental wall motion. There is no ventricular septal defect visualized. LVEF is 50 -55%. Right Ventricle The right ventricle is normal size. The right ventricular systolic function is normal. The RVSP is 32 .7 mmHg. Atria The left atrium size is normal. The right atrium size is normal. The interatrial septum is intact wit h no evidence for an atrial septal defect. Aortic Valve Peak aortic valve gradient is 28.4mmHg. Highest mean aortic valve gradient is 16.5mmHg Calculated SHIRA by the continuity equation is 1.66cm2. No aortic regurgitation is present. Bioprosthetic aortic valv e is present. Mitral Valve The mitral valve is normal in structure. No evidence of mitral valve stenosis. Trace mitral regurgita tion. Tricuspid Valve The tricuspid valve is normal in structure. There is no tricuspid valve stenosis. Mild tricuspid regu rgitation. Pulmonic Valve The pulmonary valve is normal in structure. There is no pulmonic valvular stenosis. Trace pulmonic re gurgitation. Great Vessels The aortic root is normal in size. The ascending aorta is moderately dilated. Aortic arch is not well visualized. IVC is normal in size and collapses >50% with inspiration. Pericardium There is no pericardial effusion. 2D Dimensions IVSD d PLAX 1.27 cm M: 0.6-1.2 LV Vol A2C d MOD 168.1 mL LVPW d PLAX 1.23 cm M: 0.6 - 1.2 LV Vol A4C d MOD 128.6 mL LVID d PLAX 5.05 cm M: 4.2 - 5.8 LA vol/ BSA A2C s A-L 33.8 mL/m2 LVDs 3.65 cm M: 2.5 - 4.0 LA vol/ BSA A4C s A-L 25.7 mL/m2 Ao Root d 2.68 cm M: 3.1 - 3.7 LA Vol/ BSA Biplane s A-L 30.3 mL/m2 RA Area A4C 16.91 cm2 LA Area A4C s MOD 19.82 cm2 RA Vol/ BSA A4C s A-L 21.7 mL/m2 LA Area A2C s MOD 23.31 cm2 Ao Asc Diam d 3.88 cm M: 2.6 - 3.4 LV EF A4C MOD 56.1 % LV EF Teichholz 52.1 % LV EF A2C MOD 51.0 % LVEF (Rivera's) 53.98 % M: 52 - 72 LV EF Biplane MOD 54.0 % LV Volume 109.71 mL M: 62 - 150 SV 81.61 mL LV Volume Index 49.64 mL/m2 M: 34 - 74 SV Index 36.84 mL/m2 LV Vol Biplane MOD 151.2 mL FS 26.75 % M-Mode TAPSE 1.43 cm (M/F) >1.7 LV Diastology MV E' medial 0.059 (>0.07 m/s) E/A Ratio 0.9 LV E/e MED 11.85 (<14) MV E Vmax 0.70 (0.4-1.3 m/s) MV E' lateral 0.097 (>0.1 m/s) MV A Vmax 0.75 (0.4-1.3 m/s) LV E/e LAT 7.15 (<14) MV E/A Ratio 0.92 MV E/E' medial 11.86 MV E/E' lateral 7.18 Aortic Valve LVOT Vmax 1.44 m/s AoV Area Vmax 1.66 cm2 LVOT Mean Daniel. 1.05 m/s AoV Area/ BSA (Vmax) 0.75 cm2/m2 LVOT Peak Grad 8.3 mmHg LVOT Mean Grad 4.9 mmHg LVOT VTI 0.309 m LVOT Diam s 1.98 cm AoV Vmax 2.66 m/s Velocity Ratio 0.54 AoV Mean Daniel. 1.93 m/s AoV Peak Grad 28.4 mmHg AoV Mean Grad 16.5 mmHg AoV VTI 0.542 m AoV Area VTI 1.76 cm2 Mitral Valve MV DT 186 (160-240 msec) MV PHT 54 msec MV Area PHT 4.07 cm2 MV VTI 0.303 m Pulmonary Valve PV Vmax 1.19 (0.5-1.5 m/s) RVOT Peak Gr. 2.32 mmHg PV Peak Grad 5.7 mmHg RVOT Mean Gr. 1.10 mmHg PV Mean Grad 2.9 mmHg RVOT VTI 0.145 m PV VTI 0.196 m RVOT Vmax 0.76 m/s Tricuspid Valve TR Peak Grad 29.7 mmHg TR Vmax 2.73 m/s RA Pressure 3.00 mmHg RVSP (TR) 32.7 mmHg
== END 2020-04-17 03:09 ==
LOC: DI 03:09
PROVIDERS: PCP Nurse Practitioner Family; Visit Provider Nurse Practitioner Family
DX: R07.9 Chest pain, unspecified (principal); R06.02 Shortness of breath; J44.9 Chronic obstructive pulmonary disease, unspecified; Z95.4 Presence of other heart-valve replacement
CPT/HCPCS: 93306

== ENCOUNTER 2020-04-21 15:20 | Outpatient (REF) | payer MEDICAID, SELFPAY ==
[2020-04-21 20:47] LABS: Abs Immature Grans 0.03 10^3/uL (0.0-0.06); Absolute Basophil Count 0.15 10^3/uL (0.0-0.2); Absolute Eosinophil Count 1.26 10^3/uL (0.0-0.7); Absolute Lymphocyte Count 2.52 10^3/uL (1.2-3.4); Absolute Monocyte Count 0.78 10^3/uL (0.1-0.8); Basophils % 1.5; Eosinophils % 12.4; HCT 46.6 % (40.0-50.0); HGB 15.1 g/dL (13.5-17.5); Immature Grans % 0.3; Lymphocytes % 24.9; MCHC 32.4 % (32.0-36.0); MCV 89.4 fL (80-95); MPV 9.5 fL (8.0-11.0); Monocytes % 7.7; Neutrophils % 53.2; Nucleated RBC 0 %; Platelet Count 362 10^3/uL (130-400); RBC 5.21 10^6/uL (4.36-5.78); RDW 13.1 % (11.8-14.1); RDW-SD 42.9 fL; WBC 10.14 10^3/uL (4.4-10.8)
[2020-04-21 21:04] LABS: Iron 49 ug/dL (65-175); Total Iron Binding Capacity 421 ug/dL (250-450); Transferrin Sat 12 % (20-55)
[2020-04-21 21:17] LABS: Ferritin 34 ng/mL (26-388)
[2020-04-25 04:29] LABS: Benzoylecgonine 194 ng/mL (Cutoff: 50); Cocaine 61 ng/mL (Cutoff: 50); Cocaine Interpretation Positive.
[2020-04-28 11:35] LABS: Codeine Negative ng/mL (Cutoff: 25); Dihydrocodeine Negative ng/mL (Cutoff: 25); Hydrocodone Negative ng/mL (Cutoff: 25); Hydromorphone Negative ng/mL (Cutoff: 25); Morphine Negative ng/mL (Cutoff: 25); Naloxone 17428 ng/mL (Cutoff: 25); Norhydrocodone Negative ng/mL (Cutoff: 25); Noroxycodone Negative ng/mL (Cutoff: 25); Noroxymorphone Negative ng/mL (Cutoff: 25); Opiates Interpretation Positive.
== END 2020-04-21 15:21 | disposition home or self-care (01) ==
LOC: NCHCN 15:20
PROVIDERS: PCP Nurse Practitioner Family; Visit Provider Nurse Practitioner Family
DX: R07.9 Chest pain, unspecified (principal); R19.5 Other fecal abnormalities; F11.20 Opioid dependence, uncomplicated; Z51.81 Encounter for therapeutic drug level monitoring
CPT/HCPCS: 80361; 80362; 80353; 82728; 83540; 83550; 85025

== ENCOUNTER 2020-05-15 12:05 | Outpatient (REF) | payer MEDICAID, SELFPAY ==
--- OUTSIDE RECORDS SUMMARY | 2020-05-15 12:08 | XMS_ITS ---
:1965 Author Organization [facility] Address [address] [place] [address] Care Team Providers Name Role Phone [place] Unavailable Unavailable PROBLEMS Type Condition ICD9-CM IHG20-II Onset Condition SNOMED Cod e Code Code Dates Status Problem Flat foot [pes M21.42 Active 70143 007 planus] (acquired), left foot Problem jail current Z79.01 Active 71 3905549 use of anticoagulant Problem Type 2 diabetes E11.49 Active 4213 49291 mellitus with other neurologic complication, without long-term current use of insulin Problem Flat foot [pes M21.41 Active 82683 007 planus] (acquired), right foot Problem Hammer toe of M20.42 Active 448227 [id number] second toe of left foot Problem Encounter for E11.9 Active 724504 004 diabetic foot exam Problem Right foot drop M21.371 Active 3083 [id number] Problem Hammer toe of M20.41 Active 943858 0106479012 second toe of right foot Problem Nail abnormality L60.9 Active 177 36953 Problem Endocarditis, valve I38 Active 70892539 unspecified Problem Hepatitis C B19.20 Active 86281360 Problem DVT (deep venous I82.409 Active 128 514459 thrombosis) Problem Substance abuse F19.10 Active 6621 4007 Problem 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 Active 8706 5009 Problem Anemia D64.9 Active 979891058 Problem Venous hypertension I87.303 Active 170604044 of both lower extremities Problem Atherosclerosis of I70.209 Active 1 [id number] arteries of extremities Problem CVA (cerebral I63.9 Active 475697 007 vascular accident) Problem Diabetes mellitus E11.9 Active Problem Osteomyelitis M86.9 Active 069251 00 Problem Depression with F41.8 Active 2315 51544 anxiety ALLERGIES Substance Reaction Event Type Date Status Penicillin G Potassium Unknown Drug Allergy Feb, Activ e HYDROcodone Bitartrate Unknown Drug Allergy Feb, Activ e ENCOUNTERS Encounter Location Date Diagnosis [facility] [address] [facility] [address], [place] [address] E11.9 ; H ammer toe of second [...] emities I70.209 ; Onychodystroph y L60.3 and jail current use of anticoagulant Z7 9.01 [facility] Jan, [place] [address] IMMUNIZATIONS No Known Immunizations SOCIAL HISTORY Qualifiers [...] the most , chart update Insurance Providers [facility] Member Patient Patient Patient Patient Patient Subscriber Subscriber Subscriber Group Insurance Plan Plan Plan Plan ID Relationship Address Phone Name Date of ID Name Date of No Type Insurance Insurance Insurance Coverage to Subscriber Address Phone Name Dates MEDICAID EDS MEDICAID self SERAFIN [id number] [facility] [place] [facility] [id number] SELF PAY [address] SELF PAY self SERAF[place] 1965 [place] [id number] INSURANCE MEDICAL (GENERAL) HISTORY Type Description Date Medical [...] vavle replacement (aortic) September 08 [place] [facility] [place]
[2020-05-15 21:18] LABS: ALT 23 U/L (16-63); AST 15 U/L (15-37); Albumin 3.8 g/dL (3.4-5.0); Alkaline Phosphatase 71 U/L (46-116); BUN 14 mg/dL (7-18); Bilirubin, Total 0.3 mg/dL (0.2-1.0); CREATININE 1.3 mg/dL (0.70-1.30); Calcium 8.9 mg/dL (8.5-10.1); Calculated LDL 76 mg/dL (<100); Chloride 104 mmol/L (98-107); Cholesterol 147 mg/dL (<200); Estimated GFR 57.53 (mL/min/1.73m2); Glucose 87 mg/dL (74-106); HDL Cholesterol 42 mg/dL (40-60); Potassium 4.1 mmol/L (3.5-5.1); Sodium 142 mmol/L (136-145); Total Protein 7.9 g/dL (6.4-8.2); Triglyceride 149 mg/dL (<150)
== END 2020-05-15 12:06 | disposition home or self-care (01) ==
LOC: NCHCN 12:05
PROVIDERS: PCP Nurse Practitioner Family; Visit Provider Nurse Practitioner Family
DX: E11.9 Type 2 diabetes mellitus without complications (principal); R07.9 Chest pain, unspecified; K21.9 Gastro-esophageal reflux disease without esophagitis; F11.20 Opioid dependence, uncomplicated
CPT/HCPCS: 80053; 80061

== ENCOUNTER 2020-07-14 13:03 | Outpatient (REF) | payer MEDICAID, SELFPAY ==
[2020-07-14 20:41] LABS: Iron 44 ug/dL (65-175); Total Iron Binding Capacity 442 ug/dL (250-450); Transferrin Sat 10 % (20-55)
[2020-07-14 20:50] LABS: Abs Immature Grans 0.03 10^3/uL (0.0-0.06); Absolute Basophil Count 0.11 10^3/uL (0.0-0.2); Absolute Eosinophil Count 0.49 10^3/uL (0.0-0.7); Absolute Lymphocyte Count 2.49 10^3/uL (1.2-3.4); Absolute Monocyte Count 0.78 10^3/uL (0.1-0.8); Absolute Neutrophil Count 5.17 10^3/uL (1.2-6.7); Basophils % 1.2; Eosinophils % 5.4; HCT 42.1 % (40.0-50.0); HGB 13.4 g/dL (13.5-17.5); Immature Grans % 0.3; Lymphocytes % 27.5; MCH 28.6 pg (27.0-33.0); MCHC 31.8 % (32.0-36.0); MCV 89.8 fL (80-95); MPV 9.9 fL (8.0-11.0); Monocytes % 8.6; Nucleated RBC 0 %; Platelet Count 391 10^3/uL (130-400); RBC 4.69 10^6/uL (4.36-5.78); RDW 13.1 % (11.8-14.1); RDW-SD 42.9 fL; WBC 9.07 10^3/uL (4.4-10.8)
[2020-07-14 20:54] LABS: Ferritin 19 ng/mL (26-388)
== END 2020-07-14 13:04 | disposition home or self-care (01) ==
LOC: NCHCN 13:03
PROVIDERS: PCP Nurse Practitioner Family; Visit Provider Nurse Practitioner Family
DX: E11.9 Type 2 diabetes mellitus without complications (principal); D64.9 Anemia, unspecified; K21.9 Gastro-esophageal reflux disease without esophagitis; E78.6 Lipoprotein deficiency
CPT/HCPCS: 82728; 83540; 83550; 85025

== ENCOUNTER 2020-08-03 05:53 | Emergency (ER) | payer MEDICAID, SELFPAY ==
[2020-08-03] VITALS (26 sets, daily range): BP systolic 166–204; BP diastolic 76–100; PULSE 44–84; RESP 5–23; TEMP 36.1; O2SAT 91–99
--- NOTE | 2020-08-03 06:00 | RT.EKG_ITS ---
APPROVED REPORT Exam: Resting ECG Reason for Exam: shortness of breath Patient Location: E HR:41 bpm ECG Measurements Heart Rate 41 AXIS OK 164 P 33 QRSd 105 QRS 42 QT 459 T 97 QTc 380 Conclusion Sinus bradycardia...rate< 60 Inferior infarct, old...Q >35mS, II III aVF Nonspecific T abnormalities, lateral leads...T <-0.10mV, I aVL V5 V6
--- NOTE | 2020-08-03 06:00 | DI.RAD_ITS ---
Exam(s) XR PORTABLE CHEST AP EXAM: XR PORTABLE CHEST AP CLINICAL HISTORY: cough. TECHNIQUE: 2D digital imaging was performed. COMPARISON: Prior chest x-ray 04/11/2020 FINDINGS: Sternotomy wires again noted. Heart size unchanged. The mediastinum is not widened. Prosthetic aor tic valve again noted. Lungs are clear with the exception of mild increased markings in left lower l obe. No pleural effusions. No pulmonary edema IMPRESSION: Previous sternotomy and aortic valve replacement. Mild increased markings left lower lobe posterior basal segment. No pleural effusions. No pulmonary edema DATA REPOSITORY: RADIATION DOSE DELIVERED: All CT scans at this facility use at least one of these dose optimization techniques: automated exposure control; mA and/or kV adjustment per patient size (includes targeted e xams where dose is matched to clinical indication); or iterative reconstruction.
--- NOTE | 2020-08-03 06:04 | W.ED.GENAD ---
Discharge Plan Disposition Patient Disposition: HOME Condition: Stable Discharge Details Clinical Impression: Pneumonia Primary Care Provider: Lexii Luna ED Provider: Marisol Ly Home Meds and New Rx's Prescriptions: New levofloxacin 750 mg tablet 750 mg PO DAILY Qty: 6 RF: 0 Continued lisinopril 20 mg tablet 40 mg PO DAILY RF: 0 esomeprazole magnesium [Nexium] 40 mg capsule,delayed release(DR/EC) 40 mg PO DAILY RF: 0 aspirin 81 mg Tablet 81 mg PO DAILY RF: 0 duloxetine 30 mg Capsule,Delayed Release(Dr/Ec) 30 mg PO BID RF: 0 pravastatin 10 mg Tablet 10 mg PO HS RF: 0 acetaminophen [Tylenol] 325 mg Tablet 650 mg PO Q4H PRN PRNQty: 0 RF: 0 furosemide [Lasix] 40 mg Tablet 40 mg PO DAILY RF: 0 gabapentin 300 mg Capsule 300 mg PO TID RF: 0 buprenorphine-naloxone [Suboxone] 8-2 mg Film See Rx Instructions .ROUTE .COMPLEX RF: 0 Trulicity 0.75 mg/0.5 mL pen injector 0.75 mg SUBCUT .WEEKLY RF: 0 metformin 500 mg tablet extended release 24 hr 1,000 mg PO BID RF: 0 Discharge Instructions Instructions: Levofloxacin (By mouth), Pneumonia (ED) Additional Instructions: You were offered admission to the hospital and chose to go home. You may return to the emergency department at any time if you change your mind. Please return immediately to the emergency department if you develop any new or worsening symptoms, if your condition does not improve as expected, or if you become otherwise concerned. It is extremely important that you call soon as possible to make an appointment to be seen in follow-up for this visit by your primary care doctor. Please continue to take your Keflex as prescribed in addition to the Levaquin that was prescribed to you today. Referrals: Lexii Luna [Primary Care Provider] - Discharge Data Discharge Date/Time-TO BE ENTERED AT DEPARTURE: 08/03/20 09:14 Medical Decision Making <Mio Blas MD - Last Filed: 08/03/20 07:10> 54 yo male with multiple medical problems including prior cva, prior gi bleed on anticoagulation at the time on warfarin for prior dvt, htn, who states he has copd though doesn't have it documented in the chart and is a chronic smoker, comes in with ems with not feeling well since midnight with chills, intermittent sweats, weakness and cough productive of sputum that he states he has had for 3 days. He denies chest pain, abdomen pain and states he has received both doses of covid vaccine. HE arrives stable though slightly hypertensive. He has wheezing at the apices and diminished breath sounds at the bases. He is on keflex for several days per patient for a right lower leg woud that appears to be an ulcer with some mild surrounding erythema and no drainage or severe pain. His symptoms seem typical for copd and will treat with steroids and duoneb. He could also have pneumonia so will obtain cbc, chemistry panel and cultures along with cxr and reassess. Pt remains stable mild improving in symptoms with duoneb. Labs thus far unremarkable awaiting chemistry panel. He apparently is no longer on anticoagulation given the GI bleed and given this information and his symptoms with the shortness of breath will obtain cta to evaluate for pe Differential Diagnosis Differential Diagnosis: pneumonia, copd, pleural effusion Imaging Data Radiologic Study: Attestation: I personally reviewed and interpreted this imaging study as follows: Imaging: X-Ray Radiologist's impression: no acute findings Lab Data Lab results reviewed: Yes I reviewed the patient's lab results. ECG Data Attestation: I personally reviewed and interpreted this ECG (s) as follows: Prior ECG tracings: available for review Interpretation: sinus bradycardia, rate of 41, pr 164, no acute st t wave ischemic findings <Marisol Ly MD - Last Filed: 08/03/20 21:40> Mio Alegre was signed out to me at time of shift change with CT chest pending. Discussed CT chest with radiology over the phone, who reported infiltrate. Patient's clinical symptoms per signout report are consistent with pneumonia. Under my assessment patient reporting that he is feeling better since being in the emergency department. Exam/history, results at this time not consistent with acute coronary syndrome, sepsis, acute aortic pathology. We discussed his results. Patient states that he would like to go home, states that his is at home to take care of him, and that he does feel well enough to go. I discussed admission with patient not based on severity of his pneumonia (WBC 8.8, patient with overall nontoxic appearance, no hypoxia, no tachycardia, no hypotension, normal respiratory rate, pneumonia severity index score 64) but based on his multiple comorbidities and his potential difficulties with ADLs at home in setting of pneumonia. Patient states that he feels very comfortable going home particularly with the care of his . He states that he would much prefer to go home at this time. Given that patient is currently taking Keflex for lower extremity cellulitis, plan for Levaquin in addition. Given infectious processes, no further wheezing on my assessment, diabetic history, no steroid burst at this time. Patient counseled to continue to take Keflex. I had a lengthy discussion with Patient regarding return to emergency department precautions, home care, and importance of outpatient follow-up. Pt verbalizes understanding of the plan and is amenable. Patient discharged to home with clear plan for outpatient follow-up. All questions were answered. Disposition decision was made weighing the risks and benefits of hospitalization versus outpatient treatment, the risk for further decompensation, and the patient's wishes. Medical Records Medical records reviewed: Yes I reviewed the patient's medical records. Imaging Data Radiologic Study: Attestation: I personally reviewed and interpreted this imaging study as follows: Radiologist's impression: EXAM: CT CHEST PE CTA CLINICAL HISTORY: shortness of breath, prior dvt. TECHNIQUE: Imaging Protocol: CT angiography of the chest was performed using pulmonary embolus protocol. Multi planar reconstructions were performed. CONTRAST MATERIAL: Intravenous: Omnipaque 350 Contrast volume: 100 cc COMPARISON: CT CT BRAIN NECK CTA from 04/11/2020 FINDINGS: CHEST: PULMONARY ARTERIES: There are no intraluminal filling defects to suggest acute pulmonary emboli. LUNGS: There is pleural based infiltrate in the left lower lobe posterior basal segment, corresponding to what is seen on today's chest x-ray. No associated pleural effusion or other focal left lung findings.. No significant focal findings in the opposite-right lung. No pleural effusion. MEDIASTINUM: There is no hilar nor mediastinal adenopathy. Visualized thyroid unremarkable. CARDIAC: Sternotomy wires. Prosthetic aortic valve. Heart size is normal.Caliber of the thoracic aorta is within normal limits. There is no significant shift of the interventricular septum. PARTIALLY VISUALIZED UPPERMOST ABDOMEN: Hepatic steatosis and multiple calcified granulomas noted in the liver and spleen. The visualized upper aspect of the right kidney appears somewhat abnormal with possible subcapsular hematoma although this may be related to motion artifact. OSSEOUS: No significant osseous lesions.. IMPRESSION: 1. No evidence of acute pulmonary emboli. However, there is a triangular pleural based infiltrate in the left lower lobe posterior basal segment corresponding what was described on the chest x-ray earlier today this is not associated with pleural effusion nor overlying rib destruction. No other focal findings in either lung field and there is no intrathoracic adenopathy. 2. No evidence of aortic dissection nor pericardial effusion. Thoracic aorta exhibits normal caliber. 3. There are sternotomy wires and a prosthetic aortic valve. No pericardial effusion. Lab Data Lab results reviewed: Yes I reviewed the patient's lab results. Labs: 08/03/20 07:30 Blood Blood Culture - Pending 08/03/20 06:15 Blood Blood Culture - Pending Laboratory Tests Range/Units 08/03/20 08/03/20 08/03/20 06:15 06:15 06:15 WBC (4.4-10.8) 10^3/uL 8.83 RBC (4.36-5.78) 10^6/uL 4.67 Hgb (13.5-17.5) g/dL 13.4 L Hct (40.0-50.0) % 41.8 MCV (80-95) fL 89.5 MCH (27.0-33.0) pg 28.7 MCHC (32.0-36.0) % 32.1 RDW (11.8-14.1) % 13.0 Plt Count (130-400) 10^3/uL 348 MPV (8.0-11.0) fL 9.3 Immature Gran % 0.5 Neutrophils % 68.1 Lymphocytes % 19.9 Monocytes % 6.0 Eosinophils % 4.5 Basophils % 1.0 Nucleated RBC % % 0 Absolute Neutrophils (1.2-6.7) 10^3/uL 6.01 Absolute Lymphocytes (1.2-3.4) 10^3/uL 1.76 Absolute Monocytes (0.1-0.8) 10^3/uL 0.53 Absolute Eosinophils (0.0-0.7) 10^3/uL 0.40 Absolute Basophils (0.0-0.2) 10^3/uL 0.09 PT (9.3-11.0) sec INR (0.9-1.1) APTT (21.0-27.5) sec VBG pH (7.31-7.41) VBG pCO2 (41-51) mmHg VBG pO2 mmHg VBG HCO3 (23-28) mmol/L VBG Total CO2 (24-29) mmol/L VBG O2 Saturation % VBG Base Excess (-2-3) mmol/L VBG Lactate (0.6-1.4) mmol/L 1.7 H Sodium Cancelled Potassium Cancelled Chloride Cancelled Carbon Dioxide Cancelled Anion Gap Cancelled BUN Cancelled Creatinine Cancelled Estimated GFR/1.73 m2 Cancelled Glucose Cancelled Calcium Cancelled Total Bilirubin Cancelled AST Cancelled ALT Cancelled Alkaline Phosphatase Cancelled NT-Pro-B Natriuret Pep (<300) pg/mL Total Protein Cancelled Albumin Cancelled COVID-19 Source SARS-CoV-2 (PCR) (Negative) Range/Units 08/03/20 08/03/20 08/03/20 06:15 06:15 06:15 WBC (4.4-10.8) 10^3/uL RBC (4.36-5.78) 10^6/uL Hgb (13.5-17.5) g/dL Hct (40.0-50.0) % MCV (80-95) fL MCH (27.0-33.0) pg MCHC (32.0-36.0) % RDW (11.8-14.1) % Plt Count (130-400) 10^3/uL MPV (8.0-11.0) fL Immature Gran % Neutrophils % Lymphocytes % Monocytes % Eosinophils % Basophils % Nucleated RBC % % Absolute Neutrophils (1.2-6.7) 10^3/uL Absolute Lymphocytes (1.2-3.4) 10^3/uL Absolute Monocytes (0.1-0.8) 10^3/uL Absolute Eosinophils (0.0-0.7) 10^3/uL Absolute Basophils (0.0-0.2) 10^3/uL PT (9.3-11.0) sec 9.8 INR (0.9-1.1) 1.0 APTT (21.0-27.5) sec 23.1 VBG pH (7.31-7.41) 7.36 VBG pCO2 (41-51) mmHg 50 VBG pO2 mmHg 48 VBG HCO3 (23-28) mmol/L 28 VBG Total CO2 (24-29) mmol/L 26 VBG O2 Saturation % 81 VBG Base Excess (-2-3) mmol/L 3 VBG Lactate (0.6-1.4) mmol/L Sodium Potassium Chloride Carbon Dioxide Anion Gap BUN Creatinine Estimated GFR/1.73 m2 Glucose Calcium Total Bilirubin AST ALT Alkaline Phosphatase NT-Pro-B Natriuret Pep (<300) pg/mL 309 H Total Protein Albumin COVID-19 Source SARS-CoV-2 (PCR) (Negative) Range/Units 08/03/20 08/03/20 06:40 07:03 WBC (4.4-10.8) 10^3/uL RBC (4.36-5.78) 10^6/uL Hgb (13.5-17.5) g/dL Hct (40.0-50.0) % MCV (80-95) fL MCH (27.0-33.0) pg MCHC (32.0-36.0) % RDW (11.8-14.1) % Plt Count (130-400) 10^3/uL MPV (8.0-11.0) fL Immature Gran % Neutrophils % Lymphocytes % Monocytes % Eosinophils % Basophils % Nucleated RBC % % Absolute Neutrophils (1.2-6.7) 10^3/uL Absolute Lymphocytes (1.2-3.4) 10^3/uL Absolute Monocytes (0.1-0.8) 10^3/uL Absolute Eosinophils (0.0-0.7) 10^3/uL Absolute Basophils (0.0-0.2) 10^3/uL PT (9.3-11.0) sec INR (0.9-1.1) APTT (21.0-27.5) sec VBG pH (7.31-7.41) VBG pCO2 (41-51) mmHg VBG pO2 mmHg VBG HCO3 (23-28) mmol/L VBG Total CO2 (24-29) mmol/L VBG O2 Saturation % VBG Base Excess (-2-3) mmol/L VBG Lactate (0.6-1.4) mmol/L Sodium 143 Potassium 4.5 Chloride 107 Carbon Dioxide 29.2 Anion Gap 6.8 BUN 15 Creatinine 1.1 Estimated GFR/1.73 m2 >= 60.00 Glucose 141 H Calcium 8.6 Total Bilirubin 0.3 AST 17 ALT 23 Alkaline Phosphatase 74 NT-Pro-B Natriuret Pep (<300) pg/mL Total Protein 7.6 Albumin 3.5 COVID-19 Source Nasal/nares SARS-CoV-2 (PCR) (Negative) Negative HPI <Mio Blas MD - Last Filed: 08/03/20 07:10> General Mode of arrival: EMS. Date/Time Provider Initiated Documentation: 08/03/20 05:55. Limitations to Documentation: no limitations. Information obtained by: patient. History of Present Illness 54 year old M presents to the emergency department with the chief complaint of not feeling well, described as moderate, and it has been constant. No relieving factors improve symptom(s), No exacerbating factors reported . Patient notes cough. Patient did receive the following treatments prior to arrival, none Related Data Home Medications Medication Instructions Recorded Confirmed acetaminophen [Tylenol] 650 mg PO Q4H PRN PRN #0 tab 08/08/18 05/05/20 furosemide [Lasix] 40 mg PO DAILY 02/15/19 08/03/20 gabapentin 300 mg PO TID 02/15/19 08/03/20 buprenorphine-naloxone [Suboxone] See Rx Instructions .ROUTE .COMPLEX 03/24/19 08/03/20 Trulicity 0.75 mg SUBCUT .WEEKLY 03/10/20 08/03/20 metformin 1,000 mg PO BID 03/25/20 08/03/20 esomeprazole magnesium 40 mg 40 mg PO DAILY 05/05/20 08/03/20 capsule,delayed release lisinopril 20 mg tablet 40 mg PO DAILY tab 05/05/20 08/03/20 aspirin 81 mg PO DAILY 08/03/20 08/03/20 duloxetine 30 mg PO BID 08/03/20 08/03/20 levofloxacin 750 mg PO DAILY #6 tab 08/03/20 pravastatin 10 mg PO HS 08/03/20 08/03/20 Previous Rx's Medication Instructions Recorded acetaminophen [Tylenol] 650 mg PO Q4H PRN PRN #0 tab 08/08/18 levofloxacin 750 mg PO DAILY #6 tab 08/03/20 Allergies Allergy/AdvReac Type Severity Reaction Status Date / Time Penicillins AdvReac Severe Vomiting Verified 08/03/20 05:55 hydrocodone AdvReac Intermediate vomiting Verified 08/03/20 05:55 General Stated Complaint: RespSymp LILLIAN: 2 Review of Systems <Mio Blas MD - Last Filed: 08/03/20 07:10> All systems reviewed & are unremarkable except as noted in HPI and below Cardiovascular Cardiovascular: Denies chest pain Gastrointestinal Gastrointestinal: Denies abdominal pain, Denies nausea and Denies vomiting Musculoskeletal Musculoskeletal: Denies joint swelling Psychiatric Psychiatric: Denies depression PFSH <Mio Blas MD - Last Filed: 08/03/20 07:10> Medical History (Updated 08/03/20 @ 08:49 by Marisol Ly MD) Aortic insufficiency s/p valve replacement 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 GERD (gastroesophageal reflux disease) GI bleed 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) Hepatitis C Hypertension Hypomagnesemia MSSA (methicillin susceptible Staphylococcus aureus) septicemia Obstructive sleep apnea Opiate dependence managed on suboxone Osteomyelitis of left fibula Right rotator cuff tear Smoker Tinea corporis Surgical History H/O aortic valve replacement Pericardial aortic valve at [facility] - 08/21/2018 - Magna Ease 25 mm History of ankle surgery S/P hardware removal L ankle. S/P percutaneous endoscopic gastrostomy (PEG) tube placement S/P spinal surgery Family History (Updated 05/05/20 @ 21:39 by Tracy Mehta MD) Father No problems noted. Mother COPD (chronic obstructive pulmonary disease) Hypertension Diabetes Heart disease Sister Stroke Social History (Updated 05/05/20 @ 21:40 by Tracy Mehta MD) Smoking/Tobacco Use Status: Current every day Tobacco Type: cigarettes Smoking packs per day: 0.5 Smoking cigarettes per day: 10.0 Smoking risk assessment performed?: Yes Alcohol Intake: never Drug use: Never Substance use type: does not use Caregiver/Support person: Yes Household members: friend(s) Number of Children: 0 number of grandchildren: 1 current occupation: Disabled Pets and animals: Yes Pets and animals: cat(s) Current gender identity: male What type of physical activity do you participate in: none Do you feel safe at home: Yes Do you feel safe in your relationship?: Yes Additional Social history: Lives with ex- Vanessa. Exam <Mio Blas MD - Last Filed: 08/03/20 07:10> Const General: no acute distress Orientation: alert HENMT Head: normal to inspection Ears: external ears normal General nose exam: external nose normal Mouth: moist mucous membranes Eyes General: appearance normal, both eyes and all related structures Neck Neck: normal visual inspection Resp Effort & Inspection: audible wheezes Cardio Rate: regular rate Skin General skin exam: no rashes or lesions noted Neuro General: patient alert and patient oriented x3 Extrem General: normal to inspection Psych Mental Status: mental status grossly normal Course <Mio Blas MD - Last Filed: 08/03/20 07:10> Vital Signs Vital signs: Vital Signs Temperature 36.1 C L 08/03/20 05:46 Pulse 59 L 08/03/20 05:46 Respiratory Rate 14 08/03/20 05:46 Blood Pressure 187/96 H 08/03/20 05:46 Temperature 36.1 C L 08/03/20 05:46 Temperature Source Skin 08/03/20 05:46 Pulse 59 L 08/03/20 05:46 Respiratory Rate 14 08/03/20 05:46 Respiratory Effort Non-Labored 08/03/20 05:56 Blood Pressure 187/96 H 08/03/20 05:46 Blood Pressure Position Supine 08/03/20 05:46 Oxygen Delivery Method Nasal Cannula 08/03/20 05:46 Oxygen Flow Rate 2 08/03/20 05:46 Pain Level 0 08/03/20 05:46 Lab/Test Results Lab/Test Results: 08/03/20 05:56 Blood Blood Culture - Pending 08/03/20 05:56 Blood Blood Culture - Pending Sign Out <Mio Blas MD - Last Filed: 08/03/20 07:10> Sign Out Data: Sign Out Comment: cough and shortness of breath felt chills/subjective fever overnight and not feeling well. Had wheezing on exam, states he has copd but not diagnosed in the chart is a chronic smoker. Given duoneb and solumedrol. Pending cta as cxr negative and was taken off anticoagulation in March for GI bleed and never restarted and has history of dvt Last updated by Mio Blas MD at 08/03/20 07:09
[2020-08-03] MEDS: methylPREDNISolone SUCC 125 MG VIAL IVP (06:35)
[2020-08-03 06:36] LABS: Lactate 1.7 mmol/L (0.6-1.4)
[2020-08-03] MEDS: Albuterol/Ipratropium 3 ML UPD VIAL UPD (06:36)
[2020-08-03 06:37] LABS: Abs Immature Grans 0.04 10^3/uL (0.0-0.06); Absolute Basophil Count 0.09 10^3/uL (0.0-0.2); Absolute Lymphocyte Count 1.76 10^3/uL (1.2-3.4); Absolute Monocyte Count 0.53 10^3/uL (0.1-0.8); Absolute Neutrophil Count 6.01 10^3/uL (1.2-6.7); BE (Venous) 3 mmol/L (-2-3); Eosinophils % 4.5; HCO3 (Venous) 28 mmol/L (23-28); HCT 41.8 % (40.0-50.0); HGB 13.4 g/dL (13.5-17.5); Immature Grans % 0.5; Lymphocytes % 19.9; MCH 28.7 pg (27.0-33.0); MCHC 32.1 % (32.0-36.0); MCV 89.5 fL (80-95); MPV 9.3 fL (8.0-11.0); Neutrophils % 68.1; Nucleated RBC 0 %; O2 Sat (Venous) 81 %; Platelet Count 348 10^3/uL (130-400); RBC 4.67 10^6/uL (4.36-5.78); RDW-SD 42.7 fL; TCO2 (Venous) 26 mmol/L (24-29); WBC 8.83 10^3/uL (4.4-10.8); pCO2 (Venous) 50 mmHg (41-51); pH (Venous) 7.36 (7.31-7.41); pO2 (Venous) 48 mmHg
[2020-08-03 06:52] LABS: Source Nasal/Nares
--- NOTE | 2020-08-03 07:00 | DI.CT_ITS ---
Exam(s) CT CHEST PE CTA EXAM: CT CHEST PE CTA CLINICAL HISTORY: shortness of breath, prior dvt. TECHNIQUE: Imaging Protocol: CT angiography of the chest was performed using pulmonary embolus stephan col. Multi planar reconstructions were performed. CONTRAST MATERIAL: Intravenous: Omnipaque 350 Contrast volume: 100 cc COMPARISON: CT CT BRAIN NECK CTA from 04/11/2020 FINDINGS: CHEST: PULMONARY ARTERIES: There are no intraluminal filling defects to suggest acute pulmonary emboli. LUNGS: There is pleural based infiltrate in the left lower lobe posterior basal segment, correspondin g to what is seen on today's chest x-ray. No associated pleural effusion or other focal left lung fi ndings.. No significant focal findings in the opposite-right lung. No pleural effusion. MEDIASTINUM: There is no hilar nor mediastinal adenopathy. Visualized thyroid unremarkable. CARDIAC: Sternotomy wires. Prosthetic aortic valve. Heart size is normal.Caliber of the thoracic ao rta is within normal limits. There is no significant shift of the interventricular septum. PARTIALLY VISUALIZED UPPERMOST ABDOMEN: Hepatic steatosis and multiple calcified granulomas noted in the liver and spleen. The visualized upper aspect of the right kidney appears somewhat abnormal with possible subcapsular hematoma although this may be related to motion artifact. OSSEOUS: No significant osseous lesions.. IMPRESSION: 1. No evidence of acute pulmonary emboli. However, there is a triangular pleural based infiltrate in the left lower lobe posterior basal segment corresponding what was described on the chest x-ray darryl ier today this is not associated with pleural effusion nor overlying rib destruction. No other focal findings in either lung field and there is no intrathoracic adenopathy. 2. No evidence of aortic dissection nor pericardial effusion. Thoracic aorta exhibits normal caliber . 3. There are sternotomy wires and a prosthetic aortic valve. No pericardial effusion. RADIATION DOSE DELIVERED: 522.77mGy.cm Total DLP DATA REPOSITORY: All CT scans at this facility are submitted to the National Radiology Data Registry (NRDR) Dose Index Registry (DIR) with the [employer] (A[employer]). RADIATION OPTIMIZATION: All CT scans at this facility use at least one of these dose optimization te chniques: automated exposure control; mA and/or kV adjustment per patient size (includes targeted exa ms where dose is matched to clinical indication); or iterative reconstruction.
[2020-08-03 07:01] LABS: NT-proBNP 309 pg/mL (<300)
[2020-08-03 07:03] LABS: PTT Activated 23.1 sec (21.0-27.5); Prothrombin Time 9.8 sec (9.3-11.0)
--- NOTE | 2020-08-03 07:09 | DI.VRAD_ITS ---
PROCEDURE INFORMATION: Exam: XR Chest Exam date and time: 08/03/2020 6:03 AM Age: 54 years old Clinical indication: Pain; Other: Cough TECHNIQUE: Imaging protocol: XR of the chest. Views: 1 view. COMPARISON: CR XR CHEST 2V PA LATERAL 04/11/2020 4:15 PM FINDINGS: Lungs: Unremarkable. No consolidation. Pleural spaces: Unremarkable. No pleural effusion. No pneumothorax. Heart/Mediastinum: The patient has undergone aortic valve replacement. The heart is not enlarged. Bones/joints: Unremarkable. IMPRESSION: No acute abnormalities are seen in the chest. Dictated and Authenticated by: Estevan Ramos MD. Ordering:MARVEL Lieberman MD
[2020-08-03 07:21] LABS: ALT 23 U/L (16-63); AST 17 U/L (15-37); Albumin 3.5 g/dL (3.4-5.0); Alkaline Phosphatase 74 U/L (46-116); Anion Gap 6.8 mmol/L (3-11); BUN 15 mg/dL (7-18); Bilirubin, Total 0.3 mg/dL (0.2-1.0); CO2 29.2 mmol/L (21.0-32.0); CREATININE 1.1 mg/dL (0.70-1.30); Calcium 8.6 mg/dL (8.5-10.1); Chloride 107 mmol/L (98-107); Glucose 141 mg/dL (74-106); Potassium 4.5 mmol/L (3.5-5.1); Sodium 143 mmol/L (136-145); Total Protein 7.6 g/dL (6.4-8.2)
[2020-08-03 07:42] LABS: COVID-19 PCR Negative (Negative)
[2020-08-03] MEDS: Normal Saline - Diluent 50 ML VIAL IV (07:50)
[2020-08-03] MEDS: Omnipaque 350 MG/ML 100 ML BTL IV (07:50)
[2020-08-03] MEDS: levoFLOXacin 500 MG, levoFLOXacin 250 MG 750 MG PO (08:54)
--- NOTE | 2020-08-05 07:29 | NUR.NOTE ---
Nursing Note: Patient currently on M/S. Called and they are aware. Bouchra Perkins
== END 2020-08-03 09:14 | disposition home or self-care (01) ==
PROVIDERS: Emergency Medicine; Emergency Provider Student in an Organized Health Care Education/Training Program; PCP Nurse Practitioner Family
DX: J18.8 Other pneumonia, unspecified organism (principal); R78.81 Bacteremia; B96.89 Other specified bacterial agents as the cause of diseases classified elsewhere; Z53.29 Procedure and treatment not carried out because of patient's decision for other reasons; F17.210 Nicotine dependence, cigarettes, uncomplicated; Z03.818 Encounter for observation for suspected exposure to other biological agents ruled out
CPT/HCPCS: 36415; 71275; 80053; 82805; 87040; 87077; 87635; 93005; 94640; 96374; 99285; 71045; 83605; 83880; 85025; 85610; 85730; 87186; 93010; J2930; J3490; J7620

== ENCOUNTER 2020-08-04 21:42 | Inpatient (IN) | payer MEDICAID, SELFPAY ==
[2020-08-04 21:45] VITALS: BP 184/106; PULSE 83; RESP 20; TEMP 37; O2SAT 98
--- NOTE | 2020-08-04 22:05 | W.ED.GENAD ---
Discharge Plan Disposition Patient Disposition: [facility] INPATIENT Condition: Poor Discharge Details Chief Complaint: RespSymp Clinical Impression: Pneumonia Admit Date/Time: 08/04/20 22:25 Admit Provider: Buzz Marcum Attending Provider: Buzz Marcum Primary Care Provider: Lexii Luna ED Provider: Kathrin Velazquez Discharge Data Discharge Date/Time-TO BE ENTERED AT DEPARTURE: 08/04/20 23:27 Medical Decision Making Patient is a 54-year-old gentleman presenting today with chief complaint of pneumonia. Patient was seen here yesterday at which time he was diagnosed with pneumonia and started on Levaquin. However, he was contacted today after his culture was positive for aerobic gram-positive cocci in clusters. Past medical history includes CVA, GI bleed, hypertension, COPD. Patient had cough for the past 4 days with increased sputum production. CT was obtained yesterday showing infiltrate. Patient reports in the interim he has continued to feel fatigued and short of breath. He denies any fevers. Has continued to have the same cough. On exam, patient appears acute on chronically ill. He has diffuse expiratory wheezing and rhonchi heard at bilateral bases. Abdomen is benign. Patient is hypertensive this does appear to be baseline for the patient. We will repeat CBC, CMP, lactate. We will also begin patient on antibiotics. He does have a listed penicillin allergy but has received cephalosporins historically with good results. We will begin patient on ertapenem, vancomycin. Patient does have notable lower extremity edema. This, coupled with his respiratory complaints, has me concerned for aggressive hydration. We will hold off on this for now. Consulted with Dr. See who agrees to admission for septicemia and pneumonia. HPI General Mode of arrival: wheelchair. Date/Time Provider Initiated Documentation: 08/04/20 21:42. Limitations to Documentation: no limitations. Information obtained by: patient, RN notes reviewed and old records reviewed. History of Present Illness 54 year old M presents to the emergency department with the chief complaint of pneumonia, positive blood cultures, described as moderate, and is localized to the chest. Patient reports no radiation. Patient started experiencing this day(s) and it has been constant. No relieving factors improve symptom(s), No exacerbating factors reported . Patient notes shortness of breath and weakness (fatigue); denies chest pain, diaphoresis, fever/chills, loss of appetite and nausea/vomiting. Patient did receive the following treatments prior to arrival, other (on levofloxacin) Related Data Home Medications Medication Instructions Recorded Confirmed acetaminophen [Tylenol] 650 mg PO Q4H PRN PRN #0 tab 08/08/18 08/04/20 furosemide [Lasix] 40 mg PO DAILY 02/15/19 08/04/20 gabapentin 300 mg PO TID 02/15/19 08/04/20 buprenorphine-naloxone [Suboxone] See Rx Instructions .ROUTE .COMPLEX 03/24/19 08/04/20 Trulicity 0.75 mg SUBCUT .WEEKLY 03/10/20 08/04/20 metformin 1,000 mg PO BID 03/25/20 08/04/20 esomeprazole magnesium 40 mg 40 mg PO DAILY 05/05/20 08/04/20 capsule,delayed release lisinopril 20 mg tablet 40 mg PO DAILY tab 05/05/20 08/04/20 aspirin 81 mg PO DAILY 08/03/20 08/04/20 duloxetine 30 mg PO BID 08/03/20 08/04/20 levofloxacin 750 mg PO DAILY #6 tab 08/03/20 08/04/20 pravastatin 10 mg PO HS 08/03/20 08/04/20 Previous Rx's Medication Instructions Recorded acetaminophen [Tylenol] 650 mg PO Q4H PRN PRN #0 tab 08/08/18 levofloxacin 750 mg PO DAILY #6 tab 08/03/20 Allergies Allergy/AdvReac Type Severity Reaction Status Date / Time Penicillins AdvReac Severe Vomiting Verified 08/04/20 21:51 hydrocodone AdvReac Intermediate vomiting Verified 08/04/20 21:51 General Stated Complaint: RespSymp LILLIAN: 3 Review of Systems Constitutional Constitutional: Reports as per HPI, Denies chills, Denies fever(s), Denies headache(s) and Reports lethargy Eyes Eyes: Denies change in vision ENT Ears, Nose, Mouth, and Throat: Denies dizziness and Denies headache(s) Cardiovascular Cardiovascular: Reports as per HPI, Reports dyspnea and Reports dyspnea on exertion Respiratory Respiratory: Reports as per HPI, Reports chest congestion, Reports cough, Reports pain on inspiration, Denies pain with cough, Reports dyspnea, Reports dyspnea on exertion and Reports wheezing Gastrointestinal Gastrointestinal: Reports as per HPI, Denies abdominal pain, Denies diarrhea, Denies nausea and Denies vomiting Genitourinary Genitourinary: Denies system reviewed and no additional complaints, except as documented (denies change in urinary habits) Musculoskeletal Musculoskeletal: Reports as per HPI and Denies back pain Integumentary/Breasts Skin/Breast: Reports as per HPI and Denies rash Neurologic Neurologic: Reports as per HPI, Denies dizziness and Denies headache(s) Allergic/Immunologic Allergic/Immunologic: Reports wheezing [facility] Medical History Aortic insufficiency s/p valve replacement Aortic valve endocarditis 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 GERD (gastroesophageal reflux disease) GI bleed 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) Hepatitis C Hypertension Hypomagnesemia MSSA (methicillin susceptible Staphylococcus aureus) septicemia Obstructive sleep apnea Opiate dependence managed on suboxone Osteomyelitis of left fibula Right rotator cuff tear Smoker Tinea corporis Surgical History H/O aortic valve replacement Pericardial [place] [facility] [place] - Magna Ease 25 mm History of ankle surgery S/P hardware removal L ankle. S/P percutaneous endoscopic gastrostomy (PEG) tube placement S/P spinal surgery Family History Father No problems noted. Mother COPD (chronic obstructive pulmonary disease) Hypertension Diabetes Heart disease Sister Stroke Social History Smoking/Tobacco Use Status: Current every day Tobacco Type: cigarettes Smoking packs per day: 0.5 Smoking cigarettes per day: 10.0 Smoking risk assessment performed?: Yes Alcohol Intake: never Drug use: Never Substance use type: does not use Caregiver/Support person: Yes Household members: friend(s) Number of Children: 0 number of grandchildren: 1 current occupation: Disabled Pets and animals: Yes Pets and animals: cat(s) Current gender identity: male What type of physical activity do you participate in: none Do you feel safe at home: Yes Do you feel safe in your relationship?: Yes Additional Social history: Lives with ex- Vanessa. Exam Const General: cooperative, not healthy appearing, comfortable, no acute distress, well developed and ill appearing acutely and chronically Nutritional Appearance: well nourished and overweight Orientation: alert, awake and oriented x3 HENMT Head: normal to inspection Ears: hearing grossly normal bilaterally Mouth: moist mucous membranes Chest Chest: normal inspection of the chest, normal palpation of entire chest wall and no crepitus Resp Effort & Inspection: normal respiratory effort, able to speak in complete sentences and no respiratory distress Auscultation: crackles (bilateral lower lobes), no rales, no rhonchi and wheezes (diffuse) expiratory wheezes Cardio Rate: regular rate Rhythm: regular rhythm Heart Sounds: S1 normal and S2 normal GI Inspection: normal to inspection, no edema and non-distended Palpation: soft, no hepatosplenomegaly, not firm, no guarding, not rigid and nontender Auscultation: normal bowel sounds Skin Wounds: wounds noted (posterior left ankle, no evidence of infection) Neuro General: patient alert, patient awake and patient oriented x3 Cognition: normal cognition Speech: speech normal Gait: normal gait Extrem General: normal to inspection, capillary refill normal, pedal edema present (bilateral lower extremity edema), no calf tenderness and normal gait Psych Appearance: grossly normal and well kempt Mental Status: mental status grossly normal Speech and Movement: speech and movement normal Course Vital Signs Vital signs: Vital Signs Temperature 37.0 C 08/04/20 21:45 Pulse 83 08/04/20 21:45 Respiratory Rate 08/04/20 21:45 Blood Pressure 184/106 H 08/04/20 21:45 Pulse Oximetry 98 08/04/20 21:45 Temperature 37.0 C 08/04/20 21:45 Temperature Source Temporal Artery Scan 08/04/20 21:45 Pulse 83 08/04/20 21:45 Respiratory Rate 20 08/04/20 21:45 Respiratory Effort Non-Labored 08/04/20 21:56 Blood Pressure 184/106 H 08/04/20 21:45 Pulse Oximetry 98 08/04/20 21:45 Oxygen Delivery Method Room Air 08/04/20 21:45 Oxygen Flow Rate 0 08/04/20 21:45 Pain Level 0 08/04/20 21:45
[2020-08-04 22:06] LABS: Lactate 1.6 mmol/L (0.6-1.4)
[2020-08-04 22:08] LABS: Abs Immature Grans 0.08 10^3/uL (0.0-0.06); Absolute Basophil Count 0.09 10^3/uL (0.0-0.2); Absolute Eosinophil Count 0.09 10^3/uL (0.0-0.7); Absolute Lymphocyte Count 2.44 10^3/uL (1.2-3.4); Absolute Monocyte Count 0.89 10^3/uL (0.1-0.8); Absolute Neutrophil Count 8.65 10^3/uL (1.2-6.7); Basophils % 0.7; Eosinophils % 0.7; HCT 39.5 % (40.0-50.0); HGB 12.8 g/dL (13.5-17.5); Immature Grans % 0.7; Lymphocytes % 19.9; MCH 28.6 pg (27.0-33.0); MCHC 32.4 % (32.0-36.0); MCV 88.2 fL (80-95); MPV 9.1 fL (8.0-11.0); Monocytes % 7.3; Neutrophils % 70.7; Nucleated RBC 0 %; Platelet Count 368 10^3/uL (130-400); RBC 4.48 10^6/uL (4.36-5.78); WBC 12.24 10^3/uL (4.4-10.8)
--- NOTE | 2020-08-04 22:18 | W.PM.HP.N ---
Date of service: 08/04/20 Time of Service: 22:18 Assessment and Plan Assessment and plan (1) Pneumonia: Start date: 08/04/20 Status: Acute Assessment and plan: This is a 54-year-old gentleman compromised by left CVA and disabled with continued tobacco use presenting with fever and productive cough for 3 to 4 days. He also had a positive blood culture for gram-positive cocci in clusters suspicious of Streptococcus pneumonia. He was on oral Levaquin at home but returned to the hospital for more aggressive IV antibiotic coverage. He was started on vancomycin with ertapenem. Presently the patient appears stable continues to have diaphoresis and will need follow-up on blood cultures pathology and sensitivities before converting to oral therapy. Continue aggressive respiratory care. Qualifiers: Laterality: left Lung location: lower lobe of lung Pneumonia type: due to unspecified organism Qualified Code(s): J18.9 - Pneumonia, unspecified organism (2) Bacteremia: Start date: 08/04/20 Status: Acute Assessment and plan: Follow-up blood culture and adjust antibiotic therapy accordingly. (3) Hypertension: Status: Chronic Assessment and plan: Patient is slightly exacerbated with hypertension and will continue on lisinopril with metoprolol started and to be advanced for blood pressure control. Patient does have a previous CVA. Qualifiers: Hypertension type: essential hypertension Qualified Code(s): I10 - Essential (primary) hypertension (4) Diabetes mellitus: Status: Chronic Assessment and plan: Continue treatment with glucometer medical before meals and bedtime and short acting insulin coverage holding usual outpatient regimen for now. Monitor labs. Qualifiers: Diabetes mellitus complication detail: with other neurological complication Diabetes mellitus complication status: with neurologic complications Diabetes mellitus superintendent container terminal insulin use: without superintendent container terminal use Diabetes mellitus type: type 2 Qualified Code(s): E11.49 - Type 2 diabetes mellitus with other diabetic neurological complication History of Present Illness History of Present Illness Chief Complaint: Pneumonia with gram-positive cocci septicemia Narrative: This is a 54-year-old male patient disabled by left CVA with a history of tobacco use and obesity presenting with cough and fever 3 days prior to admission having been seen in the ED the day prior to admission and sent home on Levaquin by mouth for a pneumonia. He had a positive blood culture for gram-positive cocci in clusters suspicious for Streptococcus and was called in for readmission the patient persisting with elevated WBC and positive x-ray findings for pneumonia. He was having production of yellow sputum with his cough and persistent respiratory symptoms but the fever and chills with diaphoresis were not predominant in his history. He did appear slightly diaphoretic at the time of my exam. He is chronically ill with his disability and obese. He was admitted for more aggressive IV antibiotic therapy with Levaquin being held. He offers no other new complaints. He did have some residual right hemiparesis and speech difficulty from his CVA. As stated he does smoke daily. He does not need nicotine supplement. Review of Systems Narrative: 13 point review of systems otherwise unrevealing or stable. Patient had no GI complaints with his acute symptoms. He does have chronic skin breakdown over his lower extremities with chronic edema and diabetes. 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 GERD (gastroesophageal reflux disease) GI bleed 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) Hepatitis C Hypertension Hypomagnesemia MSSA (methicillin susceptible Staphylococcus aureus) septicemia Obstructive sleep apnea Opiate dependence managed on suboxone Osteomyelitis of left fibula Right rotator cuff tear Smoker Tinea corporis Surgical History H/O aortic valve replacement Pericardial aortic valve [place] [facility] [place] - [place]21/[place] - Magna Ease 25 mm History of ankle surgery S/P hardware removal L ankle. S/P percutaneous endoscopic gastrostomy (PEG) tube placement S/P spinal surgery Family History Father No problems noted. Mother COPD (chronic obstructive pulmonary disease) Hypertension Diabetes Heart disease Sister Stroke Social History Smoking/Tobacco Use Status: Current every day Tobacco Type: cigarettes Smoking packs per day: 0.5 Smoking cigarettes per day: 10.0 Smoking risk assessment performed?: Yes Alcohol Intake: never Drug use: Never Substance use type: does not use Caregiver/Support person: Yes Household members: friend(s) Number of Children: 0 number of grandchildren: 1 current occupation: Disabled Pets and animals: Yes Pets and animals: cat(s) Current gender identity: male What type of physical activity do you participate in: none Do you feel safe at home: Yes Do you feel safe in your relationship?: Yes Additional Social history: Lives with ex- Vanessa. Meds Allergies and Home Medications Allergies Allergy/AdvReac Type Severity Reaction Status Date / Time Penicillins AdvReac Severe Vomiting Verified 08/04/20 21:51 hydrocodone AdvReac Intermediate vomiting Verified 08/04/20 21:51 Home Medications Medication Instructions Recorded Confirmed Type acetaminophen [Tylenol] 650 mg PO Q4H PRN PRN #0 tab 08/08/18 08/04/20 Rx furosemide [Lasix] 40 mg PO DAILY 02/15/19 08/04/20 History gabapentin 300 mg PO TID 02/15/19 08/04/20 History buprenorphine-naloxone [Suboxone] See Rx Instructions .ROUTE .COMPLEX 03/24/19 08/04/20 History Trulicity 0.75 mg SUBCUT .WEEKLY 03/10/20 08/04/20 History metformin 1,000 mg PO BID 03/25/20 08/04/20 History esomeprazole magnesium 40 mg 40 mg PO DAILY 05/05/20 08/04/20 History capsule,delayed release lisinopril 20 mg tablet 40 mg PO DAILY tab 05/05/20 08/04/20 History aspirin 81 mg PO DAILY 08/03/20 08/04/20 History duloxetine 30 mg PO BID 08/03/20 08/04/20 History levofloxacin 750 mg PO DAILY #6 tab 08/03/20 08/04/20 Rx pravastatin 10 mg PO HS 08/03/20 08/04/20 History Exam Narrative Exam Narrative: General: Patient appears older than stated age, alert and oriented x3 and in no acute distress. He does have slow speech and hesitancy with his left CVA. HEENT: Normocephalic, coarsened facial features with puffiness but no pitting edema. Eyes with pupils equal and reactive to light symmetrically, extraocular movement intact and sclera anicteric. Oropharynx with poor dentition many missing teeth with carious teeth remaining, dry oral mucosa but no erythema. Neck: Supple without JVD. Back: Stooped posture without CVA tenderness. Lungs: Bronchovesicular breath sounds diffusely with rales over the left more than right base with inspiration. No expiratory wheeze. Heart: Regular rate and rhythm with no murmurs or gallops appreciated. Abdomen: Obese contour, soft and nontender to palpation with no palpable hepatosplenomegaly. Genitalia/rectal: Exam deferred. Extremities: Atrophic, hyperpigmented and erythematous skin over ankles with multiple small ulcerations and no discharge over ankles and feet, decreased cap refill both feet with decreased peripheral pulses. No clubbing or cyanosis. Skin: Warm, moist and normal color but patient slightly flushed. Chronic skin changes ankles and feet as discussed under extremities. Neuro: Cranial nerves II through XII grossly intact, expressive aphasia and slight right hemiparesis with patient moving right upper extremity against gravity and slight Mehran against resistance but right lower extremity only able to be moved against gravity. Psych: Flattened affect, depressed mood with no abnormal thought processes. Remote and recent memory appear to be grossly intact. Results Imaging Imaging Studies: CT CHEST PE CTA EXAM: CT CHEST PE CTA CLINICAL HISTORY: shortness of breath, prior dvt. TECHNIQUE: Imaging Protocol: CT angiography of the chest was performed using pulmonary embolus protocol. Multi planar reconstructions were performed. CONTRAST MATERIAL: Intravenous: Omnipaque 350 Contrast volume: 100 cc COMPARISON: CT CT BRAIN NECK CTA from 04/11/2020 FINDINGS: CHEST: PULMONARY ARTERIES: There are no intraluminal filling defects to suggest acute pulmonary emboli. LUNGS: There is pleural based infiltrate in the left lower lobe posterior basal segment, corresponding to what is seen on today's chest x-ray. No associated pleural effusion or other focal left lung findings.. No significant focal findings in the opposite-right lung. No pleural effusion. MEDIASTINUM: There is no hilar nor mediastinal adenopathy. Visualized thyroid unremarkable. CARDIAC: Sternotomy wires. Prosthetic aortic valve. Heart size is normal.Caliber of the thoracic aorta is within normal limits. There is no significant shift of the interventricular septum. PARTIALLY VISUALIZED UPPERMOST ABDOMEN: Hepatic steatosis and multiple calcified granulomas noted in the liver and spleen. The visualized upper aspect of the right kidney appears somewhat abnormal with possible subcapsular hematoma although this may be related to motion artifact. OSSEOUS: No significant osseous lesions.. IMPRESSION: 1. No evidence of acute pulmonary emboli. However, there is a triangular pleural based infiltrate in the left lower lobe posterior basal segment corresponding what was described on the chest x-ray earlier today this is not associated with pleural effusion nor overlying rib destruction. No other focal findings in either lung field and there is no intrathoracic adenopathy. 2. No evidence of aortic dissection nor pericardial effusion. Thoracic aorta exhibits normal caliber. 3. There are sternotomy wires and a prosthetic aortic valve. No pericardial effusion. EXAM: XR PORTABLE CHEST AP CLINICAL HISTORY: cough. TECHNIQUE: 2D digital imaging was performed. COMPARISON: Prior chest x-ray 04/11/2020 FINDINGS: Sternotomy wires again noted. Heart size unchanged. The mediastinum is not widened. Prosthetic aortic valve again noted. Lungs are clear with the exception of mild increased markings in left lower lobe. No pleural effusions. No pulmonary edema IMPRESSION: Previous sternotomy and aortic valve replacement. Mild increased markings left lower lobe posterior basal segment. No pleural effusions. No pulmonary edema Labs Result diagrams: 08/04/20 22:00 08/04/20 22:30 Labs: Laboratory Results - last 24 hr 08/04/20 08/04/20 08/04/20 22:00 22:00 22:00 WBC 12.24 H RBC 4.48 Hgb 12.8 L Hct 39.5 L MCV 88.2 MCH 28.6 MCHC 32.4 RDW 13.0 Plt Count 368 MPV 9.1 Immature Gran % 0.7 Neutrophils % 70.7 Lymphocytes % 19.9 Monocytes % 7.3 Eosinophils % 0.7 Basophils % 0.7 Nucleated RBC % 0 Absolute Neutrophils 8.65 H Absolute Lymphocytes 2.44 Absolute Monocytes 0.89 H Absolute Eosinophils 0.09 Absolute Basophils 0.09 VBG Lactate 1.6 H Sodium Cancelled Potassium Cancelled Chloride Cancelled Carbon Dioxide Cancelled Anion Gap Cancelled BUN Cancelled Creatinine Cancelled Estimated GFR/1.73 m2 Cancelled Glucose Cancelled Calcium Cancelled Total Bilirubin Cancelled AST Cancelled ALT Cancelled Alkaline Phosphatase Cancelled Total Protein Cancelled Albumin Cancelled Last Vital Signs Temp 37.0 C 08/04/20 21:45 Pulse 83 08/04/20 21:45 Resp 20 08/04/20 21:45 BP 184/106 H 08/04/20 21:45 Pulse Ox 98 08/04/20 21:45
[2020-08-04] MEDS: VANCOMYCIN 2,000 MG in Normal Saline 500 ML 333.3333 MG IVPB (22:42)
[2020-08-04 22:48] LABS: ALT 17 U/L (16-63); AST 9 U/L (15-37); Albumin 3.5 g/dL (3.4-5.0); Alkaline Phosphatase 64 U/L (46-116); Anion Gap 7.3 mmol/L (3-11); BUN 19 mg/dL (7-18); Bilirubin, Total 0.2 mg/dL (0.2-1.0); CO2 28.7 mmol/L (21.0-32.0); CREATININE 1.3 mg/dL (0.70-1.30); Calcium 9.1 mg/dL (8.5-10.1); Chloride 106 mmol/L (98-107); Estimated GFR 57.53 (mL/min/1.73m2); Glucose 121 mg/dL (74-106); Potassium 3.8 mmol/L (3.5-5.1); Sodium 142 mmol/L (136-145); Total Protein 7.5 g/dL (6.4-8.2)
[2020-08-04] MEDS: Normal Saline Flush 10 ML SYR IVP (22:53)
[2020-08-04] MEDS: ERTAPENEM 1 GM in Normal Saline 50 ML IVPB (22:53)
[2020-08-04 23:00] VITALS: RESP 2; RESP 4
[2020-08-04] MEDS: Albuterol/Ipratropium 3 ML UPD VIAL UPD (23:00)
[2020-08-04 23:57] VITALS: PULSE 71
[2020-08-05] VITALS (10 sets, daily range): BP systolic 160–191; BP diastolic 90–112; PULSE 35–77; RESP 16–20; TEMP 35.6–37; O2SAT 94–98
[2020-08-05] MEDS: Metoprolol 12.5 MG TAB 25 MG PO (00:38)
--- NOTE | 2020-08-05 05:00 | NUR.NOTE ---
Nursing Note: Pt was admitted in room 228. B/P initially taken as 197/105 on automatic machine, rechecked upon admitting the patient was 160/100 manually. Metoprolol 25 mg as now order was given. At 330 hrs. RETAIL LOAN ORIGINATOR got the vital signs and was reported as 187/100 on right arm and the sql report writer rechecked manually was 180/100 . Patient was complaining of not feeling good, very sweaty. FS taken was 141. tank charger was notified and called MD but no new orders made. Patient back to sleep and no further voice complaints. Oriented to call lights system. Bed alarm in progress.
[2020-08-05 07:20] LABS: Abs Immature Grans 0.04 10^3/uL (0.0-0.06); Absolute Eosinophil Count 0.29 10^3/uL (0.0-0.7); Absolute Lymphocyte Count 1.91 10^3/uL (1.2-3.4); Absolute Monocyte Count 0.83 10^3/uL (0.1-0.8); Absolute Neutrophil Count 5.95 10^3/uL (1.2-6.7); Basophils % 1.1; Eosinophils % 3.2; HCT 39.8 % (40.0-50.0); HGB 12.8 g/dL (13.5-17.5); Immature Grans % 0.4; Lymphocytes % 20.9; MCH 28.4 pg (27.0-33.0); MCHC 32.2 % (32.0-36.0); MCV 88.4 fL (80-95); MPV 9.5 fL (8.0-11.0); Monocytes % 9.1; Neutrophils % 65.3; Nucleated RBC 0 %; Platelet Count 372 10^3/uL (130-400); RDW-SD 42.1 fL; WBC 9.12 10^3/uL (4.4-10.8)
[2020-08-05 07:40] LABS: ALT 20 U/L (16-63); AST 10 U/L (15-37); Albumin 3.3 g/dL (3.4-5.0); Alkaline Phosphatase 68 U/L (46-116); Anion Gap 9.6 mmol/L (3-11); BUN 17 mg/dL (7-18); Bilirubin, Total 0.3 mg/dL (0.2-1.0); CO2 27.4 mmol/L (21.0-32.0); CREATININE 1.2 mg/dL (0.70-1.30); Calcium 8.9 mg/dL (8.5-10.1); Chloride 106 mmol/L (98-107); Glucose 132 mg/dL (74-106); Potassium 3.9 mmol/L (3.5-5.1); Sodium 143 mmol/L (136-145); Total Protein 7.2 g/dL (6.4-8.2)
--- NOTE | 2020-08-05 08:00 | DI.RAD_ITS ---
Exam(s) XR CHEST 2V PA LATERAL EXAM: XR CHEST 2V PA LATERAL CLINICAL HISTORY: Follow-up pneumonia.. TECHNIQUE: 2D digital imaging was performed. COMPARISON: CT CT CHEST PE CTA from 08/03/2020 CR,XR XR PORTABLE CHEST AP from 08/03/2020 FINDINGS: Heart size is unchanged. Prosthetic aortic valve is noted. Mediastinum not widened. Sternotomy wir es again noted. Right lung is clear. Mild increased markings in the left lower lobe retrocardiac region are noted, unchanged. Consistent with infiltrate is seen on prior study and recent CT scan IMPRESSION: Persistent left lower lobe infiltrate in the posterior basal segment of the left lower lobe. This is behind the left side of the heart. No obvious pleural effusions. Prosthetic aortic valve again noted DATA REPOSITORY: RADIATION DOSE DELIVERED:
[2020-08-05] MEDS: Enoxaparin 40 MG/0.4 ML SYR SC (08:25)
[2020-08-05] MEDS: Lisinopril 20 MG TAB 40 MG PO (08:26)
[2020-08-05] MEDS: DULoxetine 30 MG CAP PO ×2 (08:26→19:38)
[2020-08-05] MEDS: Aspirin 81 MG CHEW CH (08:26)
[2020-08-05] MEDS: Gabapentin 300 MG CAP PO ×3 (08:26→19:38)
[2020-08-05] MEDS: Buprenorphine/Naloxone 4 mg/1 mg FILM 1 EACH SL (08:26)
[2020-08-05] MEDS: Esomeprazole 40 MG CAPCR PO (08:26)
[2020-08-05] MEDS: Furosemide 40 MG TAB PO (08:26)
[2020-08-05] MEDS: Metoprolol 25 MG TAB PO (08:26)
--- NOTE | 2020-08-05 08:51 | W.PM.PROGNOT ---
Date of Service Date of service: 08/05/20 Time of Service: 08:52 Assessment and Plan Assessment and plan (1) Pneumonia: Status: Acute Assessment and plan: blood culture positive for gram-positive cocci in clusters suspicious of Streptococcus pneumonia. He was on oral Levaquin at home but returned to the hospital for more aggressive IV antibiotic coverage. day 2 vancomycin with ertapenem. Continue aggressive respiratory care. Qualifiers: Laterality: left Lung location: lower lobe of lung Pneumonia type: due to unspecified organism Qualified Code(s): J18.9 - Pneumonia, unspecified organism (2) Bacteremia: Status: Acute Assessment and plan: Follow-up blood culture and adjust antibiotic therapy accordingly. (3) Hypertension: Status: Chronic Assessment and plan: Patient is slightly exacerbated with hypertension and will continue on lisinopril with metoprolol started and to be advanced for blood pressure control. Patient does have a previous CVA. Qualifiers: Hypertension type: essential hypertension Qualified Code(s): I10 - Essential (primary) hypertension (4) Diabetes mellitus: Status: Chronic Assessment and plan: diabetic diet sliding scale coverage ac/hs. Monitor labs. Qualifiers: Diabetes mellitus complication detail: with other neurological complication Diabetes mellitus complication status: with neurologic complications Diabetes mellitus [facility] insulin use: without termite renewal inspector use Diabetes mellitus type: type 2 Qualified Code(s): E11.49 - Type 2 diabetes mellitus with other diabetic neurological complication (5) Opiate dependence: Status: Chronic Assessment and plan: continue suboxone (6) DVT (deep venous thrombosis): Status: Chronic Assessment and plan: enoxaparin (7) Discharge planning issues: Status: Acute Assessment and plan: home when medically stable, no services anticipated. case management following discussed with Dr Arevalo. Subjective Subjective Patient reports: no new complaints, tolerating liquids well, tolerating a regular diet, voiding w/o difficulty and afebrile; denies shortness of breath Exam Const General: cooperative, not healthy appearing, comfortable, no acute distress, well developed and ill appearing acutely and chronically Nutritional Appearance: well nourished and overweight Orientation: alert, awake and oriented x3 HENMT Head: normal to inspection Mouth: moist mucous membranes Chest Chest: normal inspection of the chest Resp Effort & Inspection: normal respiratory effort, able to speak in complete sentences and no respiratory distress Auscultation: wheezes (diffuse) expiratory wheezes Cardio Rate: regular rate Rhythm: regular rhythm Heart Sounds: S1 normal and S2 normal GI Inspection: normal to inspection and non-distended Palpation: soft and nontender Auscultation: normal bowel sounds Back/Spine/Pelvis Thoracic/Lumbar Spine: thoracic and lumbar spine normal to inspection Skin General skin exam: no rashes or lesions noted Wounds: wounds noted (posterior left ankle, no evidence of infection) Neuro General: patient alert, patient awake and patient oriented x3 Cognition: normal cognition Speech: speech normal Gait: normal gait Extrem General: normal to inspection, capillary refill normal, pedal edema present (bilateral lower extremity edema), no calf tenderness and normal gait Psych Appearance: grossly normal Mental Status: mental status grossly normal Speech and Movement: speech and movement normal Objective Last Vital Signs Temp 35.6 C L 08/05/20 07:28 Pulse 57 L 08/05/20 07:28 Resp 19 08/05/20 07:28 BP 175/91 H 08/05/20 07:28 Pulse Ox 97 08/05/20 07:28 Laboratory Results - last 24 hr 08/04/20 08/04/20 08/04/20 22:00 22:00 22:00 WBC 12.24 H RBC 4.48 Hgb 12.8 L Hct 39.5 L MCV 88.2 MCH 28.6 MCHC 32.4 RDW 13.0 Plt Count 368 MPV 9.1 Immature Gran % 0.7 Neutrophils % 70.7 Lymphocytes % 19.9 Monocytes % 7.3 Eosinophils % 0.7 Basophils % 0.7 Nucleated RBC % 0 Absolute Neutrophils 8.65 H Absolute Lymphocytes 2.44 Absolute Monocytes 0.89 H Absolute Eosinophils 0.09 Absolute Basophils 0.09 VBG Lactate 1.6 H Sodium Cancelled Potassium Cancelled Chloride Cancelled Carbon Dioxide Cancelled Anion Gap Cancelled BUN Cancelled Creatinine Cancelled Estimated GFR/1.73 m2 Cancelled Glucose Cancelled Calcium Cancelled Total Bilirubin Cancelled AST Cancelled ALT Cancelled Alkaline Phosphatase Cancelled Total Protein Cancelled Albumin Cancelled 08/04/20 08/05/20 08/05/20 22:30 06:25 06:25 WBC 9.12 RBC 4.50 Hgb 12.8 L Hct 39.8 L MCV 88.4 MCH 28.4 MCHC 32.2 RDW 13.0 Plt Count 372 MPV 9.5 Immature Gran % 0.4 Neutrophils % 65.3 Lymphocytes % 20.9 Monocytes % 9.1 Eosinophils % 3.2 Basophils % 1.1 Nucleated RBC % 0 Absolute Neutrophils 5.95 Absolute Lymphocytes 1.91 Absolute Monocytes 0.83 H Absolute Eosinophils 0.29 Absolute Basophils 0.10 VBG Lactate Sodium 142 143 Potassium 3.8 3.9 Chloride 106 106 Carbon Dioxide 28.7 27.4 Anion Gap 7.3 9.6 BUN 19 H 17 Creatinine 1.3 1.2 Estimated GFR/1.73 m2 57.53 >= 60.00 Glucose 121 H 132 H Calcium 9.1 8.9 Total Bilirubin 0.2 0.3 AST 9 L 10 L ALT 17 20 Alkaline Phosphatase 64 68 Total Protein 7.5 7.2 Albumin 3.5 3.3 L
[2020-08-05] MEDS: VANCOMYCIN/WATER (PEG) 1.5 GM/300 ML BAG IVPB ×2 (09:35→21:19)
--- NOTE | 2020-08-05 10:52 | INITIAL_ITS ---
- If Service Date Differs Date of service: 08/05/20 Time of Service: 10:57 Care Management Initial Assess REASON FOR HOSPITALIZATION:: LL Pneumonia PAST MEDICAL HISTORY/PAST SURGICAL HISTORY:: Aortic insufficiency. s/p valve replacement. 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 Chest pain with low risk for cardiac etiology. Chronic pain. Depression. Diabetes mellitus. Displaced bimalleolar fracture of left ankle. s/p infection of wound. DVT, lower extremity. previously on coumadin. Endocarditis. G tube feedings. Per referral form Zach Sydlauramolly 09/18/18 placed by [facility] [place], no longer using. GERD (gastroesophageal reflux disease). GI bleed. 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). Hepatitis C. Hypertension. Hypomagnesemia. MSSA (methicillin susceptible Staphylococcus aureus) septicemia. Obstructive sleep apnea. Opiate dependence. managed on suboxone. Osteomyelitis of left fibula. Right rotator cuff tear. Smoker. Tinea corporis. Surgical History . H/O aortic valve replacement. Pericardial aortic valve at [facility] [place] - 08/21/2018 - Magna Ease 25 mm. History of ankle surgery. S/P hardware removal. L ankle. S/P percutaneous endoscopic gastrostomy (PEG) tube placement. S/P spinal surgery PREVIOUS FUNCTIONAL STATUS/SOCIAL/FAMILY SUPPORTS:: Mio lives in [place] with his ex-, Rekha, who is identified as his main support. He has not worked for many years due to chronic illnesses. He has an adult daughter, Xochitl, who has two children. He also has a twelve year old son at home, Adriel. 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 He is very thankful to be alive, despite now having deficits. His helps him with his ADL's. CURRENT FUNCTIONAL STATUS:: Oswaldo was sitting up in his chair, eating lunch when CM met with him. He reported no drastic changes since his last admission and was pleasant in interaction. Has patient been provided with info about the portal/API?: No Did the patient sign up for the portal?: No CODE STATUS:: Full Code INSURANCE COVERAGE / FINANCIAL ISSUES:: [facility] CURRENT HOME/COMMUNITY SERVICES/EQUIPMENT:: Mio has a walker, cane and wheelchair. He has [facility], [facility] with hh twice a week and caregivers daily. PRIMARY CARE PHYSICIAN:: Zach Sanders POTENTIAL DISCHARGE NEEDS:: Follow up with PCP and discharge plan of care. PATIENT/FAMILY EDUCATION NEEDS:: Discharge plan, follow up, limitations, Ask Me Three. ANTICIPATED BARRIERS TO DISCHARGE:: None identified at this time. TRANSPORTATION:: Via private vehicle with family. PLAN:: Mio will be discharged home with a resumption of services, including home health and caregivers. He will transport [facility] and follow up with his PCP and discharge plan of care. CM will continue to support patirnt, family and discharge planning needs.
--- NOTE | 2020-08-05 14:36 | CHAPLAIN ---
Mio was sitting up in the chair when I visited. He told me that he'd had a stroke a few years ago, so he doesn't talk or think like his old self. He's in touch with this , who he said helps him take care of himself. Mio was very pleasant and easily engaged in a conversation with me.
--- NOTE | 2020-08-05 19:00 | RT.EKG_ITS ---
APPROVED REPORT Exam: Resting ECG Reason for Exam: bradycardia Patient Location: I HR:54 bpm ECG Measurements Heart Rate 54 AXIS PA 162 P 45 QRSd 104 QRS 43 QT 438 T 76 QTc 415 Conclusion Sinus bradycardia...rate< 60 Probable left atrial enlargement...P >50mS, <-0.10mV V1
[2020-08-05] MEDS: Pravastatin 20 MG TAB 10 MG PO (19:38)
[2020-08-05] MEDS: ERTAPENEM 1 GM in Normal Saline 50 ML IVPB (19:38)
[2020-08-05] MEDS: Normal Saline Flush 10 ML SYR IVP (19:39)
[2020-08-05] MEDS: Acetaminophen 325 MG TAB 650 MG PO (19:49)
[2020-08-05] MEDS: amLODIPine 5 MG TAB PO (23:59)
[2020-08-06 03:17] VITALS: BP 178/104; PULSE 91; RESP 20; TEMP 37; O2SAT 95
[2020-08-06 06:34] VITALS: BP 170/110; PULSE 75; RESP 18; TEMP 36.4; O2SAT 97
[2020-08-06 07:05] VITALS: PULSE 76
[2020-08-06 07:28] VITALS: BP 160/99; PULSE 83; RESP 19; TEMP 36.5; O2SAT 96
[2020-08-06 07:39] LABS: Anion Gap 11.6 mmol/L (3-11); BUN 17 mg/dL (7-18); CO2 25.4 mmol/L (21.0-32.0); CREATININE 1.2 mg/dL (0.70-1.30); Chloride 101 mmol/L (98-107); Glucose 179 mg/dL (74-106); Potassium 3.7 mmol/L (3.5-5.1); Sodium 138 mmol/L (136-145)
[2020-08-06] MEDS: Esomeprazole 40 MG CAPCR PO (08:31)
[2020-08-06] MEDS: Buprenorphine/Naloxone 4 mg/1 mg FILM 1 EACH SL (08:31)
[2020-08-06] MEDS: Aspirin 81 MG CHEW CH (08:31)
[2020-08-06] MEDS: Chlorthalidone 25 MG TAB PO (08:32)
[2020-08-06] MEDS: DULoxetine 30 MG CAP PO (08:32)
[2020-08-06] MEDS: Enoxaparin 40 MG/0.4 ML SYR SC (08:32)
[2020-08-06] MEDS: Gabapentin 300 MG CAP PO (08:32)
[2020-08-06] MEDS: Lisinopril 20 MG TAB 40 MG PO (08:32)
[2020-08-06] MEDS: Insulin Aspart 300 UNITS/3 ML PEN SC (08:33)
[2020-08-06 09:20] LABS: Vancomycin, Trough 19.7 ug/mL (10.0-20.0)
[2020-08-06] MEDS: Normal Saline Flush 10 ML SYR IVP (10:10)
[2020-08-06] MEDS: VANCOMYCIN/WATER (PEG) 1.5 GM/300 ML BAG IVPB (10:10)
[2020-08-06 10:54] VITALS: PULSE 54
--- NOTE | 2020-08-06 10:59 | DSE_ITS ---
Date of service: 08/06/20 Time of Service: 10:59 DS: Diagnosis Discharge Diagnosis (1) Pneumonia: Status: Acute (2) Bacteremia: Status: Ruled-out (3) Hypertension: Status: Chronic (4) Diabetes mellitus: Status: Chronic (5) Opiate dependence: Status: Chronic Discharge Plan Disposition Patient Disposition: HOME Condition: Improving Discharge Details Reason For Visit: LL Pneumonia Admit Date/Time: 08/04/20 22:25 Admit Provider: Buzz Marcum Attending Provider: Buzz Marcum Primary Care Provider: Lexii Luna [facility] Course Hospital Course: This is a 54-year-old male patient disabled by left CVA with a history of tobacco use and obesity who originally presented to the ED with shortness of breath and cough, diagnosed with pneumonia, sent home on levaquin. one blood culture tube started growing gram positive cocci in clusters so he was called back and admitted for possible bacteremia. he was placed on vancomycin and ertapenem. he remained hemodynamically stable with no oxygen requirements. his blood cultures were repeated and all tubes remained negative for growth. his first bottle grew staph, likely a contaminant. he is stable and now ready for discharge home, he will be advised to complete his levaquin course as previously directed. discharge discussed with Dr Arevalo. Home Meds and New Rx's Prescriptions: Continued lisinopril 20 mg tablet 40 mg PO DAILY RF: 0 esomeprazole magnesium [Nexium] 40 mg capsule,delayed release(DR/EC) 40 mg PO DAILY RF: 0 aspirin 81 mg Tablet 81 mg PO DAILY RF: 0 duloxetine 30 mg Capsule,Delayed Release(Dr/Ec) 30 mg PO BID RF: 0 pravastatin 10 mg Tablet 10 mg PO HS RF: 0 levofloxacin 750 mg tablet 750 mg PO DAILY Qty: 6 RF: 0 acetaminophen [Tylenol] 325 mg Tablet 650 mg PO Q4H PRN PRNQty: 0 RF: 0 furosemide [Lasix] 40 mg Tablet 40 mg PO DAILY RF: 0 gabapentin 300 mg Capsule 300 mg PO TID RF: 0 buprenorphine-naloxone [Suboxone] 8-2 mg Film See Rx Instructions .ROUTE .COMPLEX RF: 0 Trulicity 0.75 mg/0.5 mL pen injector 0.75 mg SUBCUT .WEEKLY RF: 0 metformin 500 mg tablet extended release 24 hr 1,000 mg PO BID RF: 0 Discharge Instructions Instructions: Pneumonia (DC) Additional Instructions: drink at least 6-8 glasses of water daily to stay well hydrated your blood cultures did not grow any bacteria, the one bottle was likely a contaminant you should continue taking your antibiotic, levaquin as previously directed. Stand Alone Forms: Nursing Discharge Form Referrals: Germania Henry [NURSE PRACTITIONER] - 08/19/20 2:00 pm Activity:: Activity as Tolerated Equipment/Supplies:: No Equipment Needed Diet:: As Tolerated Discharge Orders Discharge Orders: Discharge Order (Routine); Ordered 08/06/20 Ordered By: Nely Carnes DS: Summary Time Spent with Patient providing and/or coordinating discharge services: Less than 30 minutes Status at Discharge Functional status at discharge: independent ambulation Overall status at discharge: patient is progressing back to baseline Mental Status: mental status grossly normal Speech and Movement: speech and movement normal Mood: congruent mood Affect: normal affect Exam Const General: cooperative, not healthy appearing, comfortable, no acute distress, well developed and ill appearing acutely and chronically Nutritional Appearance: well nourished and overweight Orientation: alert, awake and oriented x3 HENMT Head: normal to inspection Ears: hearing grossly normal bilaterally Mouth: moist mucous membranes Chest Chest: normal inspection of the chest Resp Effort & Inspection: normal respiratory effort, able to speak in complete sentences and no respiratory distress Auscultation: wheezes (diffuse) expiratory wheezes Cardio Rate: regular rate Rhythm: regular rhythm Heart Sounds: S1 normal and S2 normal GI Inspection: normal to inspection and non-distended Palpation: soft and nontender Auscultation: normal bowel sounds Back/Spine/Pelvis Back: no CVA tenderness Thoracic/Lumbar Spine: thoracic and lumbar spine normal to inspection Skin General skin exam: no rashes or lesions noted Trauma: no lacerations or abrasions Wounds: wounds noted (posterior left ankle, no evidence of infection) Neuro General: patient alert, patient awake and patient oriented x3 Cognition: normal cognition Speech: speech normal Gait: normal gait Extrem General: normal to inspection, capillary refill normal, pedal edema present (bilateral lower extremity edema), no calf tenderness and normal gait Psych Appearance: grossly normal Mental Status: mental status grossly normal Speech and Movement: speech and movement normal Mood: congruent mood Affect: normal affect DS: Data Vitals/I&O Vitals and I&O: Vital Signs Temperature 36.5 C 08/06/20 07:28 Temperature Source Temporal Artery Scan 08/06/20 07:28 Pulse 83 08/06/20 07:28 Pulse Rhythm Regular 08/05/20 16:30 Respiratory Rate 19 08/06/20 07:28 Respiratory Effort Non-Labored 08/06/20 03:33 Respiratory Depth Normal 08/06/20 03:33 Respiratory Pattern Normal 08/06/20 03:33 Blood Pressure 160/99 H 08/06/20 07:28 Pulse Oximetry 96 08/06/20 07:28 Oxygen Delivery Method Room Air 08/06/20 07:28 Oxygen Flow Rate 0 08/06/20 07:28 Pain Level 0 08/06/20 07:28 Comment 08/05/20 03:35 Intake & Output 08/05/20 08/05/20 08/06/20 11:59 23:59 11:59 Intake Total 310 / 1520 1210 / 1520 240 / 240 Output Total 1300 / 2800 1500 / 2800 750 / 750 Balance -990 / -1280 -290 / -1280 -510 / -510 Weight 107.2 kg 107 kg Intake: IV 310 / 1160 850 / 1160 Oral 360 / 360 240 / 240 Output: Urine 1300 / 2800 1500 / 2800 750 / 750 Other: Urine Color Yellow Pale Pale Urine Appearance Clear Clear Clear Urine Odor None None None Voiding Methods Urinal Urinal Urinal Data Completed and Pending Labs on day of discharge: Labs from last 24 hours 08/06/20 08/06/20 09:00 06:50 Sodium 138 Potassium 3.7 Chloride 101 Carbon Dioxide 25.4 Anion Gap 11.6 H BUN 17 Creatinine 1.2 Estimated GFR/1.73 m2 >= 60.00 Glucose 179 H Calcium 9.0 Vancomycin Trough 19.7 08/05/20 13:33 Blood Blood Culture - Pending 08/05/20 13:22 Blood Blood Culture - Pending Preliminary micro results at discharge 08/05/20 13:33 Blood Culture - Pending Blood 08/05/20 13:22 Blood Culture - Pending Blood [facility] Medical History Aortic insufficiency s/p valve replacement Aortic valve endocarditis Aragon esophagus Cerebral septic emboli causing stroke with residual right hemiparesis and expressive aphasia Chest pain with low risk for cardiac etiology Chronic pain Depression Diabetes mellitus Displaced bimalleolar fracture of left ankle s/p infection of wound DVT, lower extremity previously on coumadin Endocarditis G tube feedings Per referral form Zach Sanders 09/18/18 [place] [facility] [place] no longer using. GERD (gastroesophageal reflux disease) GI bleed 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) Hepatitis C Hypertension Hypomagnesemia MSSA (methicillin susceptible Staphylococcus aureus) septicemia Obstructive sleep apnea Opiate dependence managed on suboxone Osteomyelitis of left fibula Right rotator cuff tear Smoker Tinea corporis Surgical History H/O aortic valve replacement [place]icardial [place] valve [place] [facility] [place] - Magna Ease 25 mm History of ankle surgery S/P hardware removal L ankle. S/P percutaneous endoscopic gastrostomy (PEG) tube placement S/P spinal surgery Family History Father No problems noted. Mother COPD (chronic obstructive pulmonary disease) Hypertension Diabetes Heart disease Sister Stroke Social History Smoking/Tobacco Use Status: Current every day Tobacco Type: cigarettes Smoking packs per day: 0.5 Smoking cigarettes per day: 10.0 Smoking risk assessment performed?: Yes Alcohol Intake: never Drug use: Never Substance use type: does not use Caregiver/Support person: Yes Household members: friend(s) Number of Children: 0 number of grandchildren: 1 current occupation: Disabled Pets and animals: Yes Pets and animals: cat(s) Current gender identity: male What type of physical activity do you participate in: none Do you feel safe at home: Yes Do you feel safe in your relationship?: Yes Additional Social history: Lives with ex-
[2020-08-06 11:33] VITALS: BP 198/100; PULSE 78; RESP 18; TEMP 36.7; O2SAT 96
--- NOTE | 2020-08-06 17:13 | PDOC.CMDIS ---
LACE Index Scoring Tool - Questions: Length of Stay (in days): 2 Acuity (Admit via E.D.?): Yes Comorbidities: Diabetes w/o Complication E.D. Visits: 5 - Answers: Total Score: 10 Risk of Readmission: High Risk Care Management Discharge Reason for Hospitalization: LL Pneumonia Discharge Plan: Mio will be discharged home with a resumption of services, including home health and caregivers. He will transport via private vehicle with his family and follow up with his PCP and discharge plan of care. Patient/Family Education Needs: Review discharge plan, discuss, Ask Me Three. Services Needed at Discharge: Home Health Care Services (Resumption [facility])
== END 2020-08-06 11:52 | disposition home or self-care (01) | DRG 190 ==
LOC: ER 22:48 → MS 23:24
PROVIDERS: Internal Medicine; Admitting Provider Family Medicine; Emergency Provider Physician Assistant; PCP Nurse Practitioner Family; Visit Provider Family Medicine
DX: J44.0 Chronic obstructive pulmonary disease with (acute) lower respiratory infection (principal); J18.9 Pneumonia, unspecified organism; I69.351 Hemiplegia and hemiparesis following cerebral infarction affecting right dominant side; F11.20 Opioid dependence, uncomplicated; I10 Essential (primary) hypertension; Z95.4 Presence of other heart-valve replacement; K22.70 Barrett's esophagus without dysplasia; G89.29 Other chronic pain; I69.320 Aphasia following cerebral infarction; Z86.718 Personal history of other venous thrombosis and embolism; K21.9 Gastro-esophageal reflux disease without esophagitis; B19.20 Unspecified viral hepatitis C without hepatic coma; F32.9 Major depressive disorder, single episode, unspecified; E83.42 Hypomagnesemia; G47.33 Obstructive sleep apnea (adult) (pediatric); F17.210 Nicotine dependence, cigarettes, uncomplicated; E11.49 Type 2 diabetes mellitus with other diabetic neurological complication
CPT/HCPCS: 36415; 80048; 80053; 87040; 94640; 96365; 96368; 99285; J1650; 71046; 80202; 83605; 85025; 93005; 93010; 99223; 99233; 99238; 99284; J1335; J3490; J7620

== ENCOUNTER 2020-09-23 23:31 | Emergency (ER) | payer MEDICAID, SELFPAY ==
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
--- NOTE | 2020-09-23 23:15 | RT.EKG_ITS ---
APPROVED REPORT Exam: Resting ECG Reason for Exam: shortness of breath Patient Location: E HR:82 bpm ECG Measurements Heart Rate 82 AXIS WV 156 P 55 QRSd 100 QRS 52 QT 396 T 87 QTc 463 Conclusion Sinus rhythm...normal P axis, V-rate 60- 99 Left atrial enlargement...P, P'>60mS, <-0.15mV V1 Inferolateral infarct, old...Q >40mS, inf-lat leads. Sinus. No STEMI. No significant change from previous. I have reviewed and interpreted ECG and agree with software generated interpretation.
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
[2020-09-23 23:35] VITALS: BP 156/88; PULSE 84; RESP 16; TEMP 36.8; O2SAT 96
[2020-09-23 23:45] VITALS: BP 139/84; BP 145/83; PULSE 77; PULSE 78; RESP 15; O2SAT 93
[2020-09-23 23:46] VITALS: PULSE 83; RESP 18; O2SAT 94
[2020-09-23 23:50] VITALS: PULSE 64; RESP 18; O2SAT 92
[2020-09-23 23:56] LABS: Abs Immature Grans 0.06 10^3/uL (0.0-0.06); Absolute Basophil Count 0.08 10^3/uL (0.0-0.2); Absolute Eosinophil Count 0.23 10^3/uL (0.0-0.7); Absolute Lymphocyte Count 2.23 10^3/uL (1.2-3.4); Absolute Neutrophil Count 12.68 10^3/uL (1.2-6.7); Basophils % 0.5; Eosinophils % 1.4; HCT 38.2 % (40.0-50.0); HGB 12.2 g/dL (13.5-17.5); Immature Grans % 0.4; Lymphocytes % 13.5; MCH 27.1 pg (27.0-33.0); MCHC 31.9 % (32.0-36.0); MCV 84.7 fL (80-95); MPV 9.7 fL (8.0-11.0); Monocytes % 7.3; Neutrophils % 76.9; Nucleated RBC 0 %; Platelet Count 331 10^3/uL (130-400); RBC 4.51 10^6/uL (4.36-5.78); RDW 13.3 % (11.8-14.1); RDW-SD 41.1 fL; WBC 16.49 10^3/uL (4.4-10.8)
[2020-09-24] VITALS (29 sets, daily range): BP systolic 129–174; BP diastolic 69–92; PULSE 46–95; RESP 12–17; TEMP 36.4; O2SAT 91–98
[2020-09-24 00:08] LABS: Lipase 49 U/L (73-393)
[2020-09-24 00:18] LABS: ALT 17 U/L (16-63); AST 11 U/L (15-37); Albumin 3.3 g/dL (3.4-5.0); Alkaline Phosphatase 68 U/L (46-116); Anion Gap 8.7 mmol/L (3-11); BUN 11 mg/dL (7-18); Bilirubin, Total 0.3 mg/dL (0.2-1.0); CO2 27.3 mmol/L (21.0-32.0); Calcium 8.8 mg/dL (8.5-10.1); Chloride 105 mmol/L (98-107); Glucose 134 mg/dL (74-106); Magnesium 1.6 mg/dL (1.8-2.4); Sodium 141 mmol/L (136-145); Total Protein 7.2 g/dL (6.4-8.2)
[2020-09-24 00:21] LABS: Troponin I < 0.05 ng/mL (<0.06)
[2020-09-24] MEDS: Normal Saline 250 ML IV (00:25)
[2020-09-24] MEDS: LORazepam 2 MG/ML VIAL 0.5 MG IVP (00:25)
[2020-09-24 00:43] LABS: NT-proBNP 488 pg/mL (<300)
[2020-09-24] MEDS: Normal Saline - Diluent 50 ML VIAL IV (00:58)
[2020-09-24] MEDS: Omnipaque 350 MG/ML 100 ML BTL IJ (00:59)
--- NOTE | 2020-09-24 00:59 | NUR.NOTE ---
Patient returns from CT scan. Denies pain. VSS. Call light in reach. Nursing Note:
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
[2020-09-24] MEDS: Sucralfate 1 GM TAB PO (02:09)
== END 2020-09-24 02:50 | disposition home or self-care (01) ==
LOC: ER 09-24 02:43
PROVIDERS: Emergency Provider Physician Assistant; PCP Nurse Practitioner Family
DX: R06.00 Dyspnea, unspecified (principal); Z95.2 Presence of prosthetic heart valve; Z79.01 Long term (current) use of anticoagulants; E11.9 Type 2 diabetes mellitus without complications; F17.210 Nicotine dependence, cigarettes, uncomplicated; I10 Essential (primary) hypertension; Z98.890 Other specified postprocedural states
CPT/HCPCS: 36415; 71275; 74177; 80053; 83690; 93005; 96361; 96374; 99285; 83735; 83880; 84484; 85025; 93010; 99284; J2060; J3490

== ENCOUNTER 2020-09-27 15:31 | Observation (INO) | payer MEDICAID, SELFPAY ==
[2020-09-27] VITALS (61 sets, daily range): BP systolic 165–223; BP diastolic 90–125; PULSE 41–83; RESP 6–29; TEMP 36–36.8; O2SAT 94–99
--- NOTE | 2020-09-27 15:45 | DI.CT_ITS ---
Exam(s) CT HEAD WO EXAM: CT HEAD WO CLINICAL HISTORY: altered, generally weak. TECHNIQUE: Imaging Protocol: Axial computed tomography images with coronal and sagittal reformatted images were created and reviewed COMPARISON: CT CT BRAIN NECK CTA from 04/11/2020 FINDINGS: Ventricles and Extra axial spaces: Stable appearance of mild ex vacuo dilatation of the left lateral ventricle. Hemorrhage: None. Cerebral parenchyma: Old left frontal and parietal MCA distribution infarcts. No acute infarct is vi sible. Midline shift: None. Brainstem/Cerebellum: Normal. Calvarium: Normal. Visualized Paranasal sinuses/Mastoids: Mild sinus mucosal thickening. Soft Tissues: Unremarkable. IMPRESSION: Old left frontal parietal infarcts. No acute intracranial process. RADIATION DOSE DELIVERED: 831.87mGy.cm Total DLP DATA REPOSITORY: All CT scans at this facility are submitted to the National Radiology Data Registry (NRDR) Dose Index Registry (DIR) with the [employer] (ACR). RADIATION OPTIMIZATION: All CT scans at this facility use at least one of these dose optimization te chniques: automated exposure control; mA and/or kV adjustment per patient size (includes targeted exa ms where dose is matched to clinical indication); or iterative reconstruction.
--- NOTE | 2020-09-27 15:45 | RT.EKG_ITS ---
APPROVED REPORT Exam: Resting ECG Reason for Exam: weakness Patient Location: E HR:56 bpm ECG Measurements Heart Rate 56 AXIS MA 158 P 35 QRSd 104 QRS 35 QT 457 T 91 QTc 441 Conclusion Sinus bradycardia...rate< 60 Probable left atrial enlargement...P >50mS, <-0.10mV V1 Nonspecific T abnormalities, lateral leads...T <-0.10mV, I aVL V5 V6
[2020-09-27 16:56] LABS: Abs Immature Grans 0.03 10^3/uL (0.0-0.06); Absolute Basophil Count 0.07 10^3/uL (0.0-0.2); Absolute Monocyte Count 0.73 10^3/uL (0.1-0.8); Absolute Neutrophil Count 8.07 10^3/uL (1.2-6.7); Basophils % 0.6; Eosinophils % 1.9; HCT 43.3 % (40.0-50.0); HGB 13.6 g/dL (13.5-17.5); Immature Grans % 0.3; Lymphocytes % 15.7; MCH 26.9 pg (27.0-33.0); MCHC 31.4 % (32.0-36.0); MCV 85.6 fL (80-95); MPV 9.6 fL (8.0-11.0); Monocytes % 6.8; Neutrophils % 74.7; Nucleated RBC 0 %; Platelet Count 448 10^3/uL (130-400); RBC 5.06 10^6/uL (4.36-5.78); RDW 13.2 % (11.8-14.1); RDW-SD 41.2 fL
[2020-09-27 17:01] LABS: ALT 15 U/L (16-63); AST 13 U/L (15-37); Albumin 3.6 g/dL (3.4-5.0); Alkaline Phosphatase 72 U/L (46-116); Anion Gap 7.4 mmol/L (3-11); BUN 12 mg/dL (7-18); Bilirubin, Total 0.3 mg/dL (0.2-1.0); CO2 29.6 mmol/L (21.0-32.0); CREATININE 1.1 mg/dL (0.70-1.30); Calcium 9.2 mg/dL (8.5-10.1); Chloride 103 mmol/L (98-107); Glucose 116 mg/dL (74-106); Potassium 4.1 mmol/L (3.5-5.1); Sodium 140 mmol/L (136-145); Total Protein 8.5 g/dL (6.4-8.2); Troponin I < 0.05 ng/mL (<0.06)
--- OUTSIDE RECORDS SUMMARY | 2020-09-27 17:58 | XMS_ITS ---
:1965 Author Organization [facility] Address [address] [place] [address] Care Team Providers Name Role Phone [place] Unavailable Unavailable PROBLEMS Type Condition ICD9-CM UFO96-AB Onset Condition SNOMED Cod e Code Code Dates Status Problem Flat foot [pes M21.42 Active 50719 007 planus] (acquired), left foot Problem [facility] current Z79.01 Active 71 3790626 use of anticoagulant Problem Type 2 diabetes E11.49 Active 4213 83898 mellitus with other neurologic complication, without long-term current use of insulin Problem Flat foot [pes M21.41 Active 81021 007 planus] (acquired), right foot Problem Hammer toe of M20.42 Active 144687 [id number] second toe of left foot Problem Encounter for E11.9 Active 879775 004 diabetic foot exam Problem Right foot drop M21.371 Active 3083 [id number] Problem Hammer toe of M20.41 Active 011068 [id number] second toe of right foot Problem Nail abnormality L60.9 Active 177 58046 Problem Endocarditis, valve I38 Active 23729393 unspecified Problem Hepatitis C B19.20 Active 00101934 Problem DVT (deep venous I82.409 Active 128 450700 thrombosis) Problem Substance abuse F19.10 Active 6621 4007 Problem 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 Active 8706 5009 Problem Anemia D64.9 Active 046344326 Problem Venous hypertension I87.303 Active 389373909 of both lower extremities Problem Atherosclerosis of I70.209 Active 1 [id number] arteries of extremities Problem CVA (cerebral I63.9 Active 842348 007 vascular accident) Problem Diabetes mellitus E11.9 Active Problem Osteomyelitis M86.9 Active 504781 00 Problem Depression with F41.8 Active 2315 01354 anxiety ALLERGIES Substance Reaction Event Type Date Status Penicillin G Potassium Unknown Drug Allergy Feb, Activ e HYDROcodone Bitartrate Unknown Drug Allergy Feb, Activ e ENCOUNTERS Encounter Location Date Diagnosis [facility] [address] [facility] [address], [place] diabetic [place] [address] E11.9 ; H ammer toe of second [...] emities I70.209 ; Onychodystroph y L60.3 and [facility] current use of anticoagulant Z7 9.01 [facility] Jan, [place] [address] IMMUNIZATIONS No Known Immunizations SOCIAL HISTORY Qualifiers [...] tablet 24h 30 day(s) A ctive day metFORMIN HCl Orally Once a 2 tablet/s 24h [...] the most , chart update Insurance Providers [facility] Health Member Patient Patient Patient Patient Patient Subscriber Subscriber Subscriber Group Insurance Plan Plan Plan Plan ID Relationship Address Phone Name Date of ID Name Date of No Type Insurance Insurance Insurance Coverage to Subscriber Address Phone Name Dates SELF PAY ANY STREET SELF PAY self [place] [id number] [place] [id number] INSURANCE MEDICAID [place] MEDICAID self [place] [id number] [id number] MEDICAL (GENERAL) HISTORY Type Description Date Medical [...] vavle replacement (aortic) September 08 Hospitalization History [facility] related to IV drug use 07/2018
--- NOTE | 2020-09-27 18:08 | DI.RAD_ITS ---
Exam(s) XR CHEST 2V PA LATERAL EXAM: XR CHEST 2V PA LATERAL CLINICAL HISTORY: rhonchi, diaphoresis, altered TECHNIQUE: 2D digital imaging was performed. COMPARISON: CR XR CHEST 2V PA LATERAL from 08/05/2020 FINDINGS: MEDIASTINUM: Normal. HEART: Aortic valve prosthesis. PULMONARY VASCULATURE: Normal. LUNGS: Clear. PLEURAL SPACE: No pleural effusion or pneumothorax. BONE:Sternal wires. Mild degenerative changes in the spine. IMPRESSION: No acute abnormality. DATA REPOSITORY: RADIATION DOSE DELIVERED:
--- NOTE | 2020-09-27 18:15 | DI.VRAD_ITS ---
PROCEDURE INFORMATION: Exam: CT Head Without Contrast Exam date and time: 09/27/2020 3:55 PM Age: 54 years old Clinical indication: Altered mental status/memory loss; Patient HX: Generally weak TECHNIQUE: Imaging protocol: Computed tomography of the head without contrast. COMPARISON: CT HEAD WO 04/11/2020 4:22 PM FINDINGS: Brain: No acute intracranial hemorrhage, mass-effect, midline shift, or extra-axial collection is seen. There are small old infarcts in the left frontal and parietal regions. Otherwise, the stearns-white matter differentiation appears preserved. Cerebral ventricles: There is ex vacuo dilatation of the left lateral ventricle but no hydrocephalus. Paranasal sinuses: There is minimal mucoperiosteal thickening in the paranasal sinuses but no air-fluid levels. Mastoid air cells: The mastoid air cells appear well-aerated. Auditory system: The middle ear cavities appear clear. Orbital cavity: The globes and intraorbital structures appear grossly intact. Bones/joints: The bony calvarium appears intact. No depressed skull fracture is seen. Soft tissues: No significant scalp lesion is seen. Dental: The teeth are only partially visualized. There is poor dentition with multiple dental cavities partially visualized in the maxilla. IMPRESSION: 1. No acute intracranial hemorrhage or mass effect. 2. Small old transcortical infarct redemonstrated in the left frontal and parietal lobes, also seen on the prior exam. 3. Teeth only partially visualized. Poor dentition. Multiple dental cavities partially visualized in the maxilla. Follow-up with a dentist is recommended. Dictated and Authenticated by: José Garcia MD. Ordering:ELIZABETH Morrow MD
--- NOTE | 2020-09-27 18:18 | DI.VRAD_ITS ---
PROCEDURE INFORMATION: Exam: XR Chest Exam date and time: 09/27/2020 3:55 PM Age: 54 years old Clinical indication: Other: Rhonchi, diaphoresis, AMS; Prior surgery; Surgery date: 6+ months TECHNIQUE: Imaging protocol: XR of the chest. Views: 2 views. COMPARISON: CR XR CHEST 2V PA LATERAL 08/05/2020 8:01 AM FINDINGS: Limitations: Patient positioning is somewhat rotated. Lungs: No pulmonary consolidation is seen. Pleural spaces: No pleural effusion or pneumothorax is demonstrated. Heart/Mediastinum: The heart is top-normal in size. There is a prosthetic aortic valve. There has been a prior median sternotomy. Bones/joints: Visualized bony structures appear grossly intact, as seen. IMPRESSION: No active disease is seen in the chest. Dictated and Authenticated by: José Garcia MD. Ordering:ELIZABETH Morrow MD
[2020-09-27] MEDS: Pantoprazole 40 MG VIAL IVP (18:52)
--- NOTE | 2020-09-27 18:53 | ED.GENADUL_ITS ---
Discharge Plan Disposition Patient Disposition: [facility] INPATIENT Condition: Serious Discharge Details Clinical Impression: Hypertensive emergency, Dyspepsia Primary Care Provider: Lexii Luna ED Provider: Cristhian Ly Home Meds and New Rx's Prescriptions: No Action lisinopril 20 mg tablet 40 mg PO DAILY RF: 0 esomeprazole magnesium [Nexium] 40 mg capsule,delayed release(DR/EC) 40 mg PO DAILY RF: 0 aspirin 81 mg Tablet 81 mg PO DAILY RF: 0 duloxetine 30 mg Capsule,Delayed Release(Dr/Ec) 30 mg PO BID RF: 0 pravastatin 10 mg Tablet 10 mg PO HS RF: 0 acetaminophen [Tylenol] 325 mg tablet 1,000 mg PO Q6H PRNRF: 0 Anoro Ellipta 62.5-25 mcg/actuation blister with device 1 ea INHALATION DAILY RF: 0 nicotine 7 mg/24 hr patch 24 hour 1 patch transdermal DIRECTED RF: 0 ferrous gluconate 324 mg (38 mg iron) tablet 324 mg PO DAILY RF: 0 furosemide [Lasix] 40 mg Tablet 40 mg PO DAILY RF: 0 gabapentin 300 mg Capsule 300 mg PO TID RF: 0 buprenorphine-naloxone [Suboxone] 8-2 mg Film See Rx Instructions .ROUTE .COMPLEX RF: 0 Trulicity 0.75 mg/0.5 mL pen injector 0.75 mg SUBCUT .WEEKLY RF: 0 metformin 500 mg tablet extended release 24 hr 1,000 mg PO BID RF: 0 sucralfate [Carafate] 1 gram tablet 1 gm PO QACHS Qty: 14 RF: 0 Medical Decision Making 54-year-old male with multiple medical problems here for difficulty swallowing, unable to take his medication, discomfort in his chest as well as generalized weakness. Patient was seen recently for shortness of breath and had CT of the chest abdomen and pelvis that were nondiagnostic. Patient is quite hypertensive and diaphoretic on arrival. Consider ACS. Initial EKG was reviewed interpreted by me: Please see report. Initial troponin was checked and negative. Delta troponin also negative. I did give a dose of Vasotec IV as he is been unable to take his lisinopril. Patient was given Protonix IV and Pepcid IV and had significant improvement in his dysphagia. He was able to take his home medications. Enalapril was given. Chest x-ray was reviewed and interpreted by radiology:No active disease is seen in the chest. Blood pressure has not significantly improved. On reassessment after prolonged ED course he was again noted to be diaphoretic. Concern for hypertensive emergency. Plan to treat with Cardene infusion and admit. I spoke with Dr. Oneill who will evaluate the patient and admit for further treatment. Urinalysis is pending at time of admission as patient has not yet had urination. Lab Data Lab results reviewed: Yes I reviewed the patient's lab results. Labs: Laboratory Tests Range/Units 09/27/20 09/27/20 09/27/20 16:35 16:35 19:14 WBC (4.4-10.8) 10^3/uL 10.80 RBC (4.36-5.78) 10^6/uL 5.06 Hgb (13.5-17.5) g/dL 13.6 Hct (40.0-50.0) % 43.3 MCV (80-95) fL 85.6 MCH (27.0-33.0) pg 26.9 L MCHC (32.0-36.0) % 31.4 L RDW (11.8-14.1) % 13.2 Plt Count (130-400) 10^3/uL 448 H MPV (8.0-11.0) fL 9.6 Immature Gran % 0.3 Neutrophils % 74.7 Lymphocytes % 15.7 Monocytes % 6.8 Eosinophils % 1.9 Basophils % 0.6 Nucleated RBC % % 0 Absolute Neutrophils (1.2-6.7) 10^3/uL 8.07 H Absolute Lymphocytes (1.2-3.4) 10^3/uL 1.70 Absolute Monocytes (0.1-0.8) 10^3/uL 0.73 Absolute Eosinophils (0.0-0.7) 10^3/uL 0.20 Absolute Basophils (0.0-0.2) 10^3/uL 0.07 Sodium (136-145) mmol/L 140 Potassium (3.5-5.1) mmol/L 4.1 Chloride (98-107) mmol/L 103 Carbon Dioxide (21.0-32.0) mmol/L 29.6 Anion Gap (3-11) mmol/L 7.4 BUN (7-18) mg/dL 12 Creatinine (0.70-1.30) mg/dL 1.1 Estimated GFR/1.73 m2 (mL/min/1.73m2) >= 60.00 Glucose (74-106) mg/dL 116 H Calcium (8.5-10.1) mg/dL 9.2 Total Bilirubin (0.2-1.0) mg/dL 0.3 AST (15-37) U/L 13 L ALT (16-63) U/L 15 L Alkaline Phosphatase (46-116) U/L 72 Troponin I (<0.06) ng/mL < 0.05 < 0.05 Total Protein (6.4-8.2) g/dL 8.5 H Albumin (3.4-5.0) g/dL 3.6 HPI General Mode of arrival: EMS . Date/Time Provider Initiated Documentation: 09/27/20 15:48 . Limitations to Documentation: no limitations . Information obtained by: patient and EMS . HPI Narrative: 54-year-old male with multiple medical problems presents with chief complaint of generalized weakness. Patient notes he has had difficulty swallowing because of pain and has not been taking his medications over the past couple days. He feels generally weak. Symptoms are severe. No modifiers. He has associated diaphoresis. He does have discomfort in his chest which he attributes to dyspepsia. Patient denies numbness or tingling. No focal weakness. No headache. No shortness of breath. No abdominal pain. Related Data Home Medications Medication Instructions Recorded Confirmed furosemide [Lasix] 40 mg PO DAILY 02/15/19 09/27/20 gabapentin 300 mg PO TID 02/15/19 09/27/20 buprenorphine-naloxone [Suboxone] See Rx Instructions .ROUTE .COMPLEX 03/24/19 09/23/20 Trulicity 0.75 mg SUBCUT .WEEKLY 03/10/20 09/27/20 metformin 1,000 mg PO BID 03/25/20 09/27/20 esomeprazole magnesium 40 mg 40 mg PO DAILY 05/05/20 09/27/20 capsule,delayed release lisinopril 20 mg tablet 40 mg PO DAILY tab 05/05/20 09/27/20 aspirin 81 mg PO DAILY 08/03/20 09/27/20 duloxetine 30 mg PO BID 08/03/20 09/27/20 pravastatin 10 mg PO HS 08/03/20 09/27/20 sucralfate [Carafate] 1 gm PO QACHS #14 tab 09/24/20 acetaminophen [Tylenol] 1,000 mg PO Q6H PRN 09/27/20 09/27/20 ferrous gluconate 324 mg PO DAILY 09/27/20 09/27/20 nicotine 1 patch TRANSDERMAL DIRECTED 09/27/20 09/27/20 umeclidinium-vilanterol [Anoro 1 ea INHALATION DAILY 09/27/20 09/27/20 Ellipta] Previous Rx's Medication Instructions Recorded sucralfate [Carafate] 1 gm PO QACHS #14 tab 09/24/20 Allergies Allergy/AdvReac Type Severity Reaction Status Date / Time Penicillins AdvReac Severe Vomiting Verified 09/27/20 19:14 hydrocodone AdvReac Intermediate vomiting Verified 09/27/20 19:14 General Stated Complaint: GenMedical LILLIAN: 3 Review of Systems All systems reviewed & are unremarkable except as noted in HPI and below Constitutional Constitutional: Denies fever(s) and Reports lethargy Cardiovascular Cardiovascular: Reports as per HPI Respiratory Respiratory: Denies cough Gastrointestinal Gastrointestinal: Reports as per HPI Neurologic Neurologic: Reports as per HPI [facility] Medical History Aortic insufficiency s/p valve replacement 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 GERD (gastroesophageal reflux disease) GI bleed 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) Hepatitis C Hypertension Hypomagnesemia MSSA (methicillin susceptible Staphylococcus aureus) septicemia Obstructive sleep apnea Opiate dependence managed on suboxone Osteomyelitis of left fibula Right rotator cuff tear Smoker Tinea corporis Surgical History H/O aortic valve replacement Pericardial aortic valve at [facility] - 08/21/2018 - Magna Ease 25 mm History of ankle surgery S/P hardware removal L ankle. S/P percutaneous endoscopic gastrostomy (PEG) tube placement S/P spinal surgery Family History Father No problems noted. Mother COPD (chronic obstructive pulmonary disease) Hypertension Diabetes Heart disease Sister Stroke Social History Smoking/Tobacco Use Status: Current every day Tobacco Type: cigarettes Smoking risk assessment performed?: Yes Alcohol Intake: never Drug use: Never Substance use type: does not use Caregiver/Support person: Yes Household members: friend(s) Number of Children: 0 number of grandchildren: 1 current occupation: Disabled Pets and animals: Yes Pets and animals: cat(s) Current gender identity: male What type of physical activity do you participate in: none Do you feel safe at home: Yes Do you feel safe in your relationship?: Yes Additional Social history: Lives with ex- Vanessa. Exam Const General: cooperative, no acute distress and diaphoretic HENMT Mouth: moist mucous membranes Eyes Conjunctivae: normal conjunctivae Sclera: normal sclerae Neck Neck: trachea midline and supple Resp Auscultation: clear to auscultation bilaterally, no rales, no rhonchi and no wheezes Cardio Rate: regular rate and not tachycardic Rhythm: regular rhythm GI Palpation: soft, not firm, no guarding, no masses, not rigid and nontender Skin General skin exam: no rashes or lesions noted Neuro General: patient alert, patient awake and tone normal Extrem General: no calf tenderness Psych Appearance: grossly normal Course Vital Signs Vital signs: Vital Signs Temperature 36.3 C L 09/27/20 15:40 Pulse 59 L 09/27/20 15:40 Respiratory Rate 15 09/27/20 15:40 Blood Pressure 193/94 H 09/27/20 15:40 Pulse Oximetry 97 09/27/20 15:40 Temperature 36.3 C L 09/27/20 15:40 Temperature Source Skin 09/27/20 15:40 Pulse 70 09/27/20 18:48 Pulse 59 L 09/27/20 15:46 Respiratory Rate 18 09/27/20 15:46 Blood Pressure 182/94 H 09/27/20 18:48 Blood Pressure Mean 123 09/27/20 15:46 Pulse Oximetry 98 09/27/20 15:49 Oxygen Delivery Method Nasal Cannula 08/08/21 15:49 Oxygen Flow Rate 2 09/27/20 15:49 Pain Level 0 09/27/20 15:40 Comment 09/27/20 15:40 Lab/Test Results Lab/Test Results: Laboratory Tests Range/Units 09/27/20 09/27/20 16:35 16:35 WBC (4.4-10.8) 10^3/uL 10.80 RBC (4.36-5.78) 10^6/uL 5.06 Hgb (13.5-17.5) g/dL 13.6 Hct (40.0-50.0) % 43.3 MCV (80-95) fL 85.6 MCH (27.0-33.0) pg 26.9 L MCHC (32.0-36.0) % 31.4 L RDW (11.8-14.1) % 13.2 Plt Count (130-400) 10^3/uL 448 H MPV (8.0-11.0) fL 9.6 Immature Gran % 0.3 Neutrophils % 74.7 Lymphocytes % 15.7 Monocytes % 6.8 Eosinophils % 1.9 Basophils % 0.6 Nucleated RBC % % 0 Absolute Neutrophils (1.2-6.7) 10^3/uL 8.07 H Absolute Lymphocytes (1.2-3.4) 10^3/uL 1.70 Absolute Monocytes (0.1-0.8) 10^3/uL 0.73 Absolute Eosinophils (0.0-0.7) 10^3/uL 0.20 Absolute Basophils (0.0-0.2) 10^3/uL 0.07 Sodium (136-145) mmol/L 140 Potassium (3.5-5.1) mmol/L 4.1 Chloride (98-107) mmol/L 103 Carbon Dioxide (21.0-32.0) mmol/L 29.6 Anion Gap (3-11) mmol/L 7.4 BUN (7-18) mg/dL 12 Creatinine (0.70-1.30) mg/dL 1.1 Estimated GFR/1.73 m2 (mL/min/1.73m2) >= 60.00 Glucose (74-106) mg/dL 116 H Calcium (8.5-10.1) mg/dL 9.2 Total Bilirubin (0.2-1.0) mg/dL 0.3 AST (15-37) U/L 13 L ALT (16-63) U/L 15 L Alkaline Phosphatase (46-116) U/L 72 Troponin I (<0.06) ng/mL < 0.05 Total Protein (6.4-8.2) g/dL 8.5 H Albumin (3.4-5.0) g/dL 3.6
[2020-09-27] MEDS: FAMOTIDINE 20 MG/50 ML BAG 200 MG IVPB (18:56)
[2020-09-27] MEDS: Normal Saline Flush 10 ML SYR IVP ×2 (18:58→23:51)
[2020-09-27] MEDS: Gabapentin 300 MG CAP PO (19:45)
[2020-09-27] MEDS: metFORMIN 500 MG TAB 1000 MG PO (19:45)
[2020-09-27 19:46] LABS: Troponin I < 0.05 ng/mL (<0.06)
[2020-09-27] MEDS: Lisinopril 20 MG TAB 40 MG PO (19:51)
[2020-09-27] MEDS: DULoxetine 30 MG CAP PO (19:51)
--- NOTE | 2020-09-27 20:55 | HPE_ITS ---
Date of service: 09/27/20 Time of Service: 20:57 Assessment and Plan Assessment and plan (1) Dysphagia: Status: Acute Assessment and plan: Dysphagia: I think this is clearly a not unexpected post procedure issue, and is responding well to PPI and H2 betty; will continue same. The hypertension is likely due to having missed his meds, will monitor now that he has taken. The diaphoresis is at this point not easily accounted for, but it does not appear to be from hypoglycemia, ACS, or fever. I wonder whether there may be an element of opiate w/d from possibly having missed a dose of Suboxone, but this is only speculative. In any case I see no clear grounds for a specific intervention at this time and will observe. History of Present Illness History of Present Illness Chief Complaint: dysphagia Narrative: 54 male with multiple problems. He is 4 days s/p RFA for Aragon's esophagus at [facility]. 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 At any rate retiurns tonight with c/o of dysphagia, has been unable to take PO (including his antihypertensives). Here in ER w/u of note for BP 190s over 90s-100s, unremarkable CBC and BMP, neg trop, neg CXR, neg EKG. Patient given Ptotonix and pepcid with improvement /resolution of dysphagia . Given Vasotec 2.5 IV x 2, then Lisinopril 40 PO, with most recent BP 183/98. Throughout it was noted patient was diaphoretic. No fever, no CP, euglycemic. He is uncertain whether he had his AM dose of Suboxone. Due to repeat visits, elevated BP and continued but unexplained diaphoresis he is admitted for further evaluation and ,\management. At present time patient states he feels well other than his head feeling sweaty. 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 GERD (gastroesophageal reflux disease) GI bleed 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) Hepatitis C Hypertension Hypomagnesemia MSSA (methicillin susceptible Staphylococcus aureus) septicemia Obstructive sleep apnea Opiate dependence managed on suboxone Osteomyelitis of left fibula Right rotator cuff tear Smoker Tinea corporis Surgical History H/O aortic valve replacement Pericardial aortic valve at [facility] - 08/21/2018 - Magna Ease 25 mm History of ankle surgery S/P hardware removal L ankle. S/P percutaneous endoscopic gastrostomy (PEG) tube placement S/P spinal surgery Family History Father No problems noted. Mother COPD (chronic obstructive pulmonary disease) Hypertension Diabetes Heart disease Sister Stroke Social History Smoking/Tobacco Use Status: Current every day Tobacco Type: cigarettes Smoking risk assessment performed?: Yes Alcohol Intake: never Drug use: Never Substance use type: does not use Caregiver/Support person: Yes Household members: friend(s) Number of Children: 0 number of grandchildren: 1 current occupation: Disabled Pets and animals: Yes Pets and animals: cat(s) Current gender identity: male What type of physical activity do you participate in: none Do you feel safe at home: Yes Do you feel safe in your relationship?: Yes Additional Social history: Lives with ex- Vanessa. Meds Allergies and Home Medications Allergies Allergy/AdvReac Type Severity Reaction Status Date / Time Penicillins AdvReac Severe Vomiting Verified 09/27/20 19:14 hydrocodone AdvReac Intermediate vomiting Verified 09/27/20 19:14 Home Medications Medication Instructions Recorded Confirmed Type furosemide [Lasix] 40 mg PO DAILY 02/15/19 09/27/20 History gabapentin 300 mg PO TID 02/15/19 09/27/20 History buprenorphine-naloxone [Suboxone] See Rx Instructions .ROUTE .COMPLEX 03/24/19 09/23/20 History Trulicity 0.75 mg SUBCUT .WEEKLY 03/10/20 09/27/20 History metformin 1,000 mg PO BID 03/25/20 09/27/20 History esomeprazole magnesium 40 mg 40 mg PO DAILY 05/05/20 09/27/20 History capsule,delayed release lisinopril 20 mg tablet 40 mg PO DAILY tab 05/05/20 09/27/20 History aspirin 81 mg PO DAILY 08/03/20 09/27/20 History duloxetine 30 mg PO BID 08/03/20 09/27/20 History pravastatin 10 mg PO HS 08/03/20 09/27/20 History sucralfate [Carafate] 1 gm PO QACHS #14 tab 09/24/20 Rx acetaminophen [Tylenol] 1,000 mg PO Q6H PRN 09/27/20 09/27/20 History ferrous gluconate 324 mg PO DAILY 09/27/20 09/27/20 History nicotine 1 patch TRANSDERMAL DIRECTED 09/27/20 09/27/20 History umeclidinium-vilanterol [Anoro 1 ea INHALATION DAILY 09/27/20 09/27/20 History Ellipta] Exam Narrative Exam Narrative: 183/98, 74, 36.0, 15, 97% RA. HEENT atraumatic; neck supple; lungs clear; heart RRR; abdomen soft and NT; extremities w/o edema; neuro Ox3, moves all 4s, skin facial diaphoresis. Results Labs Result diagrams: 09/27/20 16:35 09/27/20 16:35 Labs: Laboratory Results - last 24 hr 09/27/20 09/27/20 09/27/20 16:35 16:35 19:14 WBC 10.80 RBC 5.06 Hgb 13.6 Hct 43.3 MCV 85.6 MCH 26.9 L MCHC 31.4 L RDW 13.2 Plt Count 448 H MPV 9.6 Immature Gran % 0.3 Neutrophils % 74.7 Lymphocytes % 15.7 Monocytes % 6.8 Eosinophils % 1.9 Basophils % 0.6 Nucleated RBC % 0 Absolute Neutrophils 8.07 H Absolute Lymphocytes 1.70 Absolute Monocytes 0.73 Absolute Eosinophils 0.20 Absolute Basophils 0.07 Sodium 140 Potassium 4.1 Chloride 103 Carbon Dioxide 29.6 Anion Gap 7.4 BUN 12 Creatinine 1.1 Estimated GFR/1.73 m2 >= 60.00 Glucose 116 H Calcium 9.2 Total Bilirubin 0.3 AST 13 L ALT 15 L Alkaline Phosphatase 72 Troponin I < 0.05 < 0.05 Total Protein 8.5 H Albumin 3.6 Last Vital Signs Temp 36.0 C L 09/27/20 20:55 Pulse 74 09/27/20 19:58 Resp 15 09/27/20 19:58 BP 185/104 H 09/27/20 19:58 Pulse Ox 97 09/27/20 19:58
[2020-09-27 22:13] LABS: Source Nasal/Nares
--- OUTSIDE RECORDS SUMMARY | 2020-09-27 22:20 | XMS_ITS ---
:1965 Author Organization [facility] Address [address] [place] [address] Care Team Providers Name Role Phone [place] Unavailable Unavailable PROBLEMS Type Condition ICD9-CM IRX93-HS Onset Condition SNOMED Cod e Code Code Dates Status Problem Flat foot [pes M21.42 Active 40461 007 planus] (acquired), left foot Problem longterm current Z79.01 Active 71 5065971 use of anticoagulant Problem Type 2 diabetes E11.49 Active 4213 57068 mellitus with other neurologic complication, without long-term current use of insulin Problem Flat foot [pes M21.41 Active 73449 007 planus] (acquired), right foot Problem Hammer toe of M20.42 Active 650423 0291769771 second toe of left foot Problem Encounter for E11.9 Active 022989 004 diabetic foot exam Problem Right foot drop M21.371 Active 3083 40019677238 Problem Hammer toe of M20.41 Active 470608 7521554751 second toe of right foot Problem Nail abnormality L60.9 Active 177 72523 Problem Endocarditis, valve I38 Active 01576199 unspecified Problem Hepatitis C B19.20 Active 78299245 Problem DVT (deep venous I82.409 Active 128 810981 thrombosis) Problem Substance abuse F19.10 Active 6621 4007 Problem 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 Active 8706 5009 Problem Anemia D64.9 Active 755045015 Problem Venous hypertension I87.303 Active 321969738 of both lower extremities Problem Atherosclerosis of I70.209 Active 1 30011575380013 arteries of extremities Problem CVA (cerebral I63.9 Active 952803 007 vascular accident) Problem Diabetes mellitus E11.9 Active Problem Osteomyelitis M86.9 Active 246847 00 Problem Depression with F41.8 Active 2315 46278 anxiety ALLERGIES Substance Reaction Event Type Date Status Penicillin G Potassium Unknown Drug Allergy Feb, Activ e HYDROcodone Bitartrate Unknown Drug Allergy Feb, Activ e ENCOUNTERS Encounter Location Date Diagnosis [facility] [address] [facility] [address], [place] for diabetic foot [place] [address] E11.9 ; H ammer toe of second [...] emities I70.209 ; Onychodystroph y L60.3 and longterm current use of anticoagulant Z7 9.01 [facility] Jan, [place] [address] IMMUNIZATIONS No Known Immunizations SOCIAL HISTORY Qualifiers [...] the most , chart update Insurance Providers [facility] Member Patient Patient Patient Patient Patient Subscriber Subscriber Subscriber Group Insurance Plan Plan Plan Plan ID Relationship Address Phone Name Date of ID Name Date of No Type Insurance Insurance Insurance Coverage to Subscriber Address Phone Name Dates SELF PAY ANY STREET SELF PAY self SERAFIN [id number] [place] [id number] INSURANCE MEDICAID EDS MEDICAID self SERAFIN [id number] [facility] [id number] MEDICAL (GENERAL) HISTORY Type Description Date Medical [...] vavle replacement (aortic) September 08 Hospitalization History [facility] related to IV drug use 07/2018
[2020-09-27 23:04] LABS: COVID-19 PCR Negative (Negative)
[2020-09-27 23:15] LABS: Bilirubin Small (Negative); Blood Trace-intact (Negative); Clarity Clear (Clear); Glucose Negative (Negative); Ketones 80 mg/dL (Negative); Leukocyte Esterase Negative (Negative); Nitrite Negative (Negative); Specific Gravity >= 1.030 (1.005-1.025); Urobilinogen 0.2 EU/dL (Up TO 0.2); pH 6.5 (5-8)
[2020-09-27 23:26] LABS: *AMPHETAMINES SCREEN URINE Negative (Negative); *BARBITURATES SCREEN URINE Negative (Negative); *BENZODIAZEPINES SCREEN URINE Negative (Negative); Cannabinoids THC Positive (Negative); Cocaine Screen,Urine Positive (Negative); METHADONE URINE SCREEN Negative (Negative); OPIATES URINE SCREEN Negative (Negative)
[2020-09-27 23:27] LABS: Epithelial Cells Rare HPF (Negative); WBC 0-2 HPF (0-5)
[2020-09-27 23:28] LABS: Bacteria Rare HPF (Negative); C & S Indicated? No; Casts 0-2 Fine Granular LPF (Negative); Crystals Negative HPF (Negative); Mucus Trace (Negative)
[2020-09-27 23:29] LABS: Tricyclic Antidepressants Negative (Negative)
[2020-09-27] MEDS: Pravastatin 20 MG TAB 10 MG PO (23:50)
[2020-09-27] MEDS: dilTIAZem 30 MG TAB 60 MG PO (23:50)
[2020-09-28] VITALS (7 sets, daily range): BP systolic 160–198; BP diastolic 78–96; PULSE 72–83; RESP 18–20; TEMP 36–36.8; O2SAT 91–97
[2020-09-28] MEDS: Buprenorphine/Naloxone 8 mg/2 mg FILM 0.5 EACH SL (06:43)
[2020-09-28] MEDS: Normal Saline Flush 10 ML SYR IVP ×2 (06:49→08:07)
[2020-09-28] MEDS: Normal Saline 500 ML 30 ML IV (06:49)
[2020-09-28] MEDS: FAMOTIDINE 20 MG/50 ML BAG 100 MG (06:49)
[2020-09-28] MEDS: Pantoprazole 40 MG VIAL IVP (08:06)
[2020-09-28] MEDS: Aspirin 81 MG CHEW PO (08:07)
[2020-09-28] MEDS: metFORMIN C.R. 500 MG TABCR 1000 MG PO (08:07)
[2020-09-28] MEDS: Lisinopril 20 MG TAB 40 MG PO (08:07)
[2020-09-28] MEDS: Gabapentin 300 MG CAP PO ×2 (08:08→14:15)
[2020-09-28] MEDS: DULoxetine 30 MG CAP PO (08:08)
--- NOTE | 2020-09-28 12:28 | INITIAL_ITS ---
- If Service Date Differs Date of service: 09/28/20 Time of Service: 12:28 Care Management Initial Assess REASON FOR HOSPITALIZATION:: Dysphagia, hypertension, diaphoresis PAST MEDICAL HISTORY/PAST SURGICAL HISTORY:: Aortic insufficiency. s/p valve replacement. 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 Chest pain with low risk for cardiac etiology. Chronic pain. Depression. Diabetes mellitus. Displaced bimalleolar fracture of left ankle. s/p infection of wound. DVT, lower extremity. previously on coumadin. Endocarditis. G tube feedings. Per referral form Zach Hevermolly 09/18/18 placed by [facility] for endocarditis, no longer using. GERD (gastroesophageal reflux disease). GI bleed. 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). Hepatitis C. Hypertension. Hypomagnesemia. MSSA (methicillin susceptible Staphylococcus aureus) septicemia. Obstructive sleep apnea. Opiate dependence. managed on suboxone. Osteomyelitis of left fibula. Right rotator cuff tear. Smoker. Tinea corporis. Surgical History . H/O aortic valve replacement. Pericardial aortic valve at [facility] - 08/21/2018 - Magna Ease 25 mm. History of ankle surgery. S/P hardware removal. L ankle. S/P percutaneous endoscopic gastrostomy (PEG) tube placement. S/P spinal surgery PREVIOUS FUNCTIONAL STATUS/SOCIAL/FAMILY SUPPORTS:: Mio lives in [place] with his ex-, Rekha, who is identified as his main support. He has not worked for many years due to chronic illnesses. He has an adult daughter, Xochitl, who has two children. He also has a twelve year old son at home, Adriel. 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 He is very thankful to be alive, despite now having deficits. His helps him with his ADL's. CURRENT FUNCTIONAL STATUS:: Mio was lying in bed watching television. He was pleasant in interaction and reported no changes to his living arrangments since his last admission. Has patient been provided with info about the portal/API?: No Did the patient sign up for the portal?: No CODE STATUS:: Full Code INSURANCE COVERAGE / FINANCIAL ISSUES:: Medicaid CURRENT HOME/COMMUNITY SERVICES/EQUIPMENT:: Mio has a walker, cane and wheelchair. He has [facility], high highest with hh twice a week and caregivers daily. PRIMARY CARE PHYSICIAN:: Zach Sanders POTENTIAL DISCHARGE NEEDS:: Follow up with PCP and discharge plan of care. PATIENT/FAMILY EDUCATION NEEDS:: Discharge plan, follow up, limitations, Ask Me Three. ANTICIPATED BARRIERS TO DISCHARGE:: None identified at this time. TRANSPORTATION:: Via private vehicle with family. PLAN:: Mio will be discharged home with a resumption of services, including home health and caregivers. He will transport via private vehicle with his family and follow up with his PCP and discharge plan of care. CM will continue to support patirnt, family and discharge planning needs.
--- NOTE | 2020-09-28 13:03 | SPP_ITS ---
Date of service: 09/28/20 Time of Service: 12:45 Subjective Speech/swallow consult. Pt with new onset dysphagia following RFA for Aragon's esophagus at [facility]. This is not uncommon s/p procedure. Per discussion with MD, pt was not taking GI medications consistently post procedure but has been now the past 2 days here at [facility] with improvements. Recommend pt continue with medications and a possible puree or soft diet until site heals. 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 No charge. Coding
--- NOTE | 2020-09-28 13:03 | W.SPSTP ---
Date of service: 09/28/20 Time of Service: 12:45 Subjective Speech/swallow consult. Pt with new onset dysphagia following RFA for Aragon's esophagus at [facility]. This is not uncommon s/p procedure. Per discussion with MD, pt was not taking GI medications consistently post procedure but has been now the past 2 days here at [facility] with improvements. Recommend pt continue with medications and a possible puree or soft diet until site heals. 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 No charge. Coding
[2020-09-28] MEDS: Acetaminophen 500 MG TAB 1000 MG PO (14:15)
[2020-09-28] MEDS: amLODIPine 5 MG TAB PO (15:53)
[2020-09-28] MEDS: Sucralfate 1 GM TAB PO (15:53)
--- NOTE | 2020-09-28 17:25 | DSE_ITS ---
Date of service: 09/28/20 Time of Service: 17:26 DS: Diagnosis Discharge Diagnosis (1) Dysphagia: Status: Acute (2) Dyspepsia: Status: Acute (3) Hypertensive urgency: Status: Acute (4) Cocaine abuse: Status: Chronic (5) Medical non-compliance: Status: Acute (6) COVID-19 ruled out by laboratory testing: Status: Ruled-out Discharge Plan Disposition Patient Disposition: AGAINST MEDICAL ADVICE Condition: Fair Discharge Details Reason For Visit: Dysphagia,Hypertension,Diaphoresis Admit Date/Time: 09/27/20 21:13 Admit Provider: Buzz Oneill Attending Provider: Buzz Oneill Primary Care Provider: Lexii Luna Hospital Course Hospital Course: Mr Albert is a 54 year old male with PMHx of embolic CVA in setting of infe ctious endocarditis, as well as h/o polysubstance abuse, hypertension, NIDDM2, who was observed on [facility] hospitalist service from 09/27/20 until 09/28/20 presenting with dysphagia and chest discomfort following his EGD and radioablation for his Aragon's esophagus. Additionally, he was found to be hypertensive and diphoretic, presumably because he was unable to previously tolerate his medications due to his dysphagia. He showed no signs of infection. He was treated with PPI, H2 betty, and carafate. His suboxone was continued. He tolerated PO. He was initiated on amlodipine for his blood pressure in addition to his home therapy. Unfortunately, the patient left AMA before prescriptions could be given to him, but are being sent to his pharmacy. He was encouraged to stop using cocaine and refused resources to help with that. Home Meds and New Rx's Prescriptions: New amlodipine 5 mg Tablet 5 mg PO DAILY Qty: 30 RF: 0 pantoprazole 40 mg Tablet,Delayed Release (Dr/Ec) 40 mg PO DAILY@0730 Qty: 30 RF: 0 Continued lisinopril 20 mg tablet 40 mg PO DAILY RF: 0 esomeprazole magnesium [Nexium] 40 mg capsule,delayed release(DR/EC) 40 mg PO DAILY RF: 0 aspirin 81 mg Tablet 81 mg PO DAILY RF: 0 duloxetine 30 mg Capsule,Delayed Release(Dr/Ec) 30 mg PO BID RF: 0 pravastatin 10 mg Tablet 10 mg PO HS RF: 0 acetaminophen [Tylenol] 325 mg tablet 1,000 mg PO Q6H PRNRF: 0 Anoro Ellipta 62.5-25 mcg/actuation blister with device 1 ea INHALATION DAILY RF: 0 nicotine 7 mg/24 hr patch 24 hour 1 patch transdermal DIRECTED RF: 0 ferrous gluconate 324 mg (38 mg iron) tablet 324 mg PO DAILY RF: 0 buprenorphine-naloxone [Suboxone] 4-1 mg film 1 film sublingual DAILY RF: 0 sucralfate [Carafate] 1 gram tablet 1 gm PO QACHS Qty: 120 RF: 0 furosemide [Lasix] 40 mg Tablet 40 mg PO DAILY RF: 0 gabapentin 300 mg Capsule 300 mg PO TID RF: 0 Trulicity 0.75 mg/0.5 mL pen injector 0.75 mg SUBCUT .WEEKLY RF: 0 metformin 500 mg tablet extended release 24 hr 1,000 mg PO BID RF: 0 Discharge Instructions Referrals: Lexii Luna [Primary Care Provider] - Activity:: Activity as Tolerated Equipment/Supplies:: No Equipment Needed Diet:: Low Sodium Discharge Orders Discharge Orders: Discharge Order (Routine); Ordered 09/28/20 Ordered By: Little Akers Discharge Data Discharge Date/Time-TO BE ENTERED AT DEPARTURE: 09/28/20 17:31 DS: Summary Time Spent with Patient providing and/or coordinating discharge services: Less than 30 minutes Status at Discharge Functional status at discharge: independent ambulation Overall status at discharge: patient is back to baseline Mental Status: mental status grossly normal Speech and Movement: speech and movement normal Mood: congruent mood Affect: normal affect Exam Narrative Exam Narrative: General: Pleasant middle-aged male, impulsive, at his baseline mental status, baseline dysarthria HEENT: EOMI, MMM Heart: RRR Lungs: CTAB Abdomen: soft, nontender, nondistended Extremities: no edema BLE's Psych Mental Status: mental status grossly normal Speech and Movement: speech and movement normal Affect: normal affect DS: Data Vitals/I&O Vitals and I&O: Vital Signs Temperature 36.5 C 09/28/20 15:30 Temperature Source Tympanic 09/28/20 15:30 Pulse 79 09/28/20 17:12 Pulse Rhythm Regular 09/28/20 13:47 Pulse 76 09/27/20 22:00 Respiratory Rate 19 09/28/20 15:30 Respiratory Effort 09/28/20 13:47 Respiratory Depth Normal 09/28/20 13:47 Respiratory Pattern Normal 09/28/20 13:47 Blood Pressure 184/96 H 09/28/20 17:12 Blood Pressure Mean 121 09/27/20 22:00 Pulse Oximetry 97 09/28/20 15:30 Oxygen Delivery Method Room Air 09/28/20 15:30 Oxygen Flow Rate 0 09/28/20 15:30 Pain Level 8 09/28/20 14:15 Comment 09/28/20 02:21 Intake & Output 09/27/20 09/28/20 09/28/20 23:59 11:59 23:59 Intake Total 60 / 60 551 / 791 240 / 791 Output Total 250 / 250 275 / 425 150 / 425 Balance -190 / -190 276 / 366 90 / 366 Weight 101.5 kg Intake: IV 60 / 60 11 Oral 540 / 780 240 / 780 Output: Urine 250 / 250 275 / 425 150 / 425 Other: Urine Color Yellow Yellow Dark Annalisa Urine Appearance Clear Clear Clear Urine Odor Normal Normal Voiding Methods Urinal Urinal Data Completed and Pending Completed studies during hospitalization [Text1]: CXR: No acute abnormality. Labs on day of discharge: Labs from last 24 hours 09/27/20 09/27/20 09/27/20 22:54 22:54 22:11 Magnesium Troponin I Urine Color Yellow Urine Clarity Clear Urine pH 6.5 Ur Specific Baldwin >= 1.030 H Urine Protein 100 H Urine Ketones 80 H Urine Blood Trace-intact H Urine Nitrite Negative Urine Bilirubin Small H Urine Urobilinogen 0.2 Ur Leukocyte Esterase Negative Urine RBC 5-10 H Urine WBC 0-2 Ur Epithelial Cells Rare Urine Crystals Negative Urine Bacteria Rare Urine Casts 0-2 Fine Granular Urine Mucus Trace Ur Culture Indicated? No Urine Glucose Negative Urine Opiates Screen Negative Urine Methadone Screen Negative Ur Barbiturates Screen Negative Ur Tricyclics Screen Negative Ur Amphetamines Screen Negative U Benzodiazepines Scrn Negative Urine Cocaine Screen Positive A Ur THC Screen Positive A COVID-19 Source Nasal/Nares SARS-CoV-2 (PCR) Negative 09/27/20 09/27/20 19:14 19:14 Magnesium 2.0 Troponin I < 0.05 Urine Color Urine Clarity Urine pH Ur Specific Baldwin Urine Protein Urine Ketones Urine Blood Urine Nitrite Urine Bilirubin Urine Urobilinogen Ur Leukocyte Esterase Urine RBC Urine WBC Ur Epithelial Cells Urine Crystals Urine Bacteria Urine Casts Urine Mucus Ur Culture Indicated? Urine Glucose Urine Opiates Screen Urine Methadone Screen Ur Barbiturates Screen Ur Tricyclics Screen Ur Amphetamines Screen U Benzodiazepines Scrn Urine Cocaine Screen Ur THC Screen COVID-19 Source SARS-CoV-2 (PCR) [facility] Medical History Aortic insufficiency s/p valve replacement Aortic valve endocarditis Aragon esophagus Cerebral septic emboli causing stroke with residual right hemiparesis and expressive aphasia Chest pain with low risk for cardiac etiology Chronic pain Depression Diabetes mellitus Displaced bimalleolar fracture of left ankle s/p infection of wound DVT, lower extremity previously on coumadin Endocarditis G tube feedings Per referral form Zach Sanders 09/18/18 placed by [facility] for endocarditis, no longer using. GERD (gastroesophageal reflux disease) GI bleed 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) Hepatitis C Hypertension Hypomagnesemia MSSA (methicillin susceptible Staphylococcus aureus) septicemia Obstructive sleep apnea Opiate dependence managed on suboxone Osteomyelitis of left fibula Right rotator cuff tear Smoker Tinea corporis Surgical History H/O aortic valve replacement Pericardial aortic valve at [facility] - 08/21/2018 - Magna Ease 25 mm History of ankle surgery S/P hardware removal L ankle. S/P percutaneous endoscopic gastrostomy (PEG) tube placement S/P spinal surgery Family History Father No problems noted. Mother COPD (chronic obstructive pulmonary disease) Hypertension Diabetes Heart disease Sister Stroke Social History Smoking/Tobacco Use Status: Current every day Tobacco Type: cigarettes Smoking risk assessment performed?: Yes Alcohol Intake: never Drug use: Never Substance use type: does not use Caregiver/Support person: Yes Household members: friend(s) Number of Children: 0 number of grandchildren: 1 current occupation: Disabled Pets and animals: Yes Pets and animals: cat(s) Current gender identity: male What type of physical activity do you participate in: none Do you feel safe at home: Yes Do you feel safe in your relationship?: Yes Additional Social history: Lives with ex-
--- NOTE | 2020-09-30 16:05 | NUR.NOTE ---
09/28/20 @ 2140: patient care turned over to KAREN,RN Nursing Note:
== END 2020-09-28 17:31 | disposition left against medical advice (07) ==
LOC: ER 22:00 → MS 22:18
PROVIDERS: Admitting Provider General Practice; Emergency Provider Student in an Organized Health Care Education/Training Program; PCP Nurse Practitioner Family; Visit Provider General Practice
DX: I16.0 Hypertensive urgency (principal); R13.10 Dysphagia, unspecified; K22.70 Barrett's esophagus without dysplasia; R61 Generalized hyperhidrosis; F14.10 Cocaine abuse, uncomplicated; G89.29 Other chronic pain; F32.9 Major depressive disorder, single episode, unspecified; E11.9 Type 2 diabetes mellitus without complications; Z86.718 Personal history of other venous thrombosis and embolism; Z95.2 Presence of prosthetic heart valve; K21.9 Gastro-esophageal reflux disease without esophagitis; I69.351 Hemiplegia and hemiparesis following cerebral infarction affecting right dominant side; F11.20 Opioid dependence, uncomplicated; F17.210 Nicotine dependence, cigarettes, uncomplicated; G47.33 Obstructive sleep apnea (adult) (pediatric); E83.42 Hypomagnesemia; I10 Essential (primary) hypertension; Z91.14 Patient's other noncompliance with medication regimen
CPT/HCPCS: 36415; 80053; 80307; 87635; 93005; 96365; 96375; 99285; 70450; 71046; 81003; 81015; 83735; 84484; 85025; 93010; 99217; 99219; G0378

== ENCOUNTER 2021-06-25 01:14 | Outpatient (REF) | payer MEDICAID, SELFPAY ==
[2021-06-25 17:08] LABS: Abs Immature Grans 0.02 10^3/uL (0.0-0.06); Absolute Eosinophil Count 0.43 10^3/uL (0.0-0.7); Absolute Lymphocyte Count 1.84 10^3/uL (1.2-3.4); Absolute Monocyte Count 0.65 10^3/uL (0.1-0.8); Absolute Neutrophil Count 3.82 10^3/uL (1.2-6.7); Basophils % 1.5; Eosinophils % 6.3; HCT 39.3 % (40.0-50.0); HGB 12.2 g/dL (13.5-17.5); Immature Grans % 0.3; Lymphocytes % 26.8; MCH 25.5 pg (27.0-33.0); MCV 82 fL (80-95); MPV 9.7 fL (8.0-11.0); Monocytes % 9.5; Neutrophils % 55.6; Platelet Count 412 10^3/uL (130-400); RBC 4.78 10^6/uL (4.36-5.78); RDW-SD 44.7 fL; WBC 6.86 10^3/uL (4.4-10.8)
[2021-06-25 17:15] LABS: Iron 26 ug/dL (65-175); Total Iron Binding Capacity 453 ug/dL (250-450); Transferrin Sat 6 % (20-55)
[2021-06-25 17:42] LABS: ALT 12 U/L (16-63); AST 10 U/L (15-37); Albumin 3.9 g/dL (3.4-5.0); Alkaline Phosphatase 82 U/L (46-116); Anion Gap 9.6 mmol/L (3-11); BUN 14 mg/dL (7-18); Bilirubin, Total 0.3 mg/dL (0.2-1.0); CO2 27.4 mmol/L (21.0-32.0); CREATININE 1.3 mg/dL (0.70-1.30); Calcium 8.8 mg/dL (8.5-10.1); Chloride 103 mmol/L (98-107); Estimated GFR 57.31 (mL/min/1.73m2); Ferritin 12 ng/mL (26-388); Glucose 95 mg/dL (74-106); Magnesium 1.9 mg/dL (1.8-2.4); Potassium 4.2 mmol/L (3.5-5.1); Sodium 140 mmol/L (136-145); Total Protein 7.8 g/dL (6.4-8.2); Vitamin B12 338 pg/mL (193-986)
--- OUTSIDE RECORDS SUMMARY | 2021-06-26 01:16 | XMS_ITS ---
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 71 4109908 use of anticoagulant Problem Type 2 diabetes E11.49 Active 4213 56497 mellitus with other neurologic complication, without long-term current use of insulin Problem Flat foot [pes M21.41 Active 66447 007 planus] (acquired), right foot Problem Hammer toe of M20.42 Active 458754 0849813539 second toe of left foot Problem Encounter for E11.9 Active 762566 004 diabetic foot exam Problem Right foot drop M21.371 Active 3083 39863550745 Problem Hammer toe of M20.41 Active 462125 1210947670 second toe of right foot Problem Nail abnormality L60.9 Active 177 37030 Problem Endocarditis, valve I38 Active 28751210 unspecified Problem Hepatitis C B19.20 Active 08397577 Problem DVT (deep venous I82.409 Active 128 749600 thrombosis) Problem Substance abuse F19.10 Active 6621 4007 Problem 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 Active 8706 5009 Problem Anemia D64.9 Active 232879890 Problem Venous hypertension I87.303 Active 368652351 of both lower extremities Problem Atherosclerosis of I70.209 Active 1 51918930689148 arteries of extremities Problem CVA (cerebral I63.9 Active 813902 007 vascular accident) Problem Diabetes mellitus E11.9 Active Problem Osteomyelitis M86.9 Active 028773 00 Problem Depression with F41.8 Active 2318 89253 anxiety ALLERGIES Substance Reaction Event Type Date Status Penicillin G Potassium Unknown Drug Allergy Feb, Activ e HYDROcodone Bitartrate Unknown Drug Allergy Feb, Activ e ENCOUNTERS Encounter Location Date Diagnosis [facility] [address] [facility] [address], [place] [address] E11.9 ; H ammer toe of second [...] emities I70.209 ; Onychodystroph y L60.3 and 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 Z7 9.01 [facility] Jan, [place] [address] IMMUNIZATIONS No Known Immunizations SOCIAL HISTORY Qualifiers Date Former Smoker 05/29/2018 REASON FOR REFERRAL FUNCTIONAL STATUS PLAN OF CARE Activity Details Follow Up 3-4mo Reason:DM foot/nail ca re Future Test PREV: DIABETIC FOOT EXAM VITAL SIGNS Height 69.88 in 2019-03-04 Height 69.88 in 2019-02-18 Temperature 96.7 degrees Fahrenheit 2019-03-04 Heart Rate 110 /min 2019-03-04 Respiratory Rate 18 /min 2019-03-04 Oximetry 95 % 2019-03-04 Blood pressure systolic 120 mm Hg 2019-03-04 Blood pressure diastolic 68 mm Hg 2019-03-04 MEDICATIONS Medication Instructions Dosage Frequency Start End Duration Statu s Date Date Cymbalta 30 MG Orally Twice a 1 capsule 12h Active day Protonix 40 MG Orally Once a 1 tablet 24h 30 day(s) Active day Flovent HFA Inhalation Twice 1 puff 12h Act kaushal 110 MCG/ACT a day OneTouch Active Delica Lancets Fine 1st Tier as directed Active Unifine Pentips 31G X 5 MM Keppra 500 MG Orally Twice a 1 tablet 12h 30 day(s) Active day Lantus 100 subcutanous at 40 units Activ e UNIT/ML bedtime metFORMIN HCl Orally Once a 2 tablet/s 24h A ctive 500 MG day with a meal OneTouch Ultra as directed Activ e Blue - HumaLOG as directed Active KwikPen 100 UNIT/ML Suboxone 8-2 Sublingual Once 1 film 24h Act kaushal MG a day under the tongue and allow to dissolve Lasix 40 MG Orally Once a 1 tablet 24h 30 day(s) Act kaushal day Metoprolol Orally Twice a 1 tablet 12h 30 day(s) Not -Takin Tartrate 50 MG day with food g Warfarin Orally Once a 1 tablet 24h 30 day(s) Active Sodium 2.5 MG day MiraLax - as directed Active ProAir HFA 108 Inhalation every 1 puff as 4h Active (90 Base) 4 hrs needed MCG/ACT Gabapentin 300 Orally Once a 1 capsule 24h 30 day(s) Active MG day Aspirin 81 81 Orally Once a 1 tablet 24h 30 day(s) A ctive MG day Lisinopril 20 Orally Once a 1 tablet 24h Act kaushal MG day Tylenol Extra Orally every 6 1 tablet as 6h Active Strength 500 hrs needed MG Coumadin 5 MG Orally Once a 1 tablet 24h 30 day(s) A ctive day Ferrous Orally Twice a 1 tablet 12h Active Gluconate 324 day with water (38 Fe) MG or juice between meals PROCEDURES Procedure Date Ordered Result Body Site [...] the most , chart update Insurance Providers [facility] Member Patient Patient Patient Patient Patient Subscriber Subscriber Subscriber Group Insurance Plan Plan Plan Plan ID Relationship Address Phone Name Date of ID Name Date of No Type Insurance Insurance Insurance Coverage to Subscriber Address Phone Name Dates MEDICAID EDS MEDICAID self [place] [id number] [place] [employer] [place] [facility] [id number] SELF PAY [address] SELF PAY self [place] 1965 [id number] INSURANCE
[2021-06-28 12:40] LABS: Hepatitis C Ab w Rflx HCV PCR Reactive (Negative)
[2021-06-30 15:36] LABS: HCV RNA Qualitative Undetected (Undetected)
== END 2021-06-25 01:15 | disposition home or self-care (01) ==
LOC: NCHCN 01:14
PROVIDERS: PCP Nurse Practitioner Family; Visit Provider Nurse Practitioner Family
DX: D64.9 Anemia, unspecified (principal); K21.9 Gastro-esophageal reflux disease without esophagitis; R60.0 Localized edema; E11.9 Type 2 diabetes mellitus without complications; I87.8 Other specified disorders of veins; G47.33 Obstructive sleep apnea (adult) (pediatric); J44.9 Chronic obstructive pulmonary disease, unspecified; Z95.2 Presence of prosthetic heart valve; Z79.899 Other long term (current) drug therapy
CPT/HCPCS: 80053; 86803; 87522; 82607; 82728; 83540; 83550; 83735; 85025

== ENCOUNTER 2021-07-31 20:36 | Emergency (ER) | payer MEDICAID, SELFPAY ==
--- NOTE | 2021-07-31 20:45 | W.ED.GENAD ---
Discharge Plan Disposition Patient Disposition: HOME Condition: Improving Discharge Details Clinical Impression: Laceration of left lower leg Primary Care Provider: Lexii Luna ED Provider: Zac Richmond Home Meds and New Rx's Prescriptions: Continued lisinopril 20 mg tablet 40 mg PO DAILY esomeprazole magnesium [Nexium] 40 mg capsule,delayed release(DR/EC) 40 mg PO DAILY aspirin 81 mg Tablet 81 mg PO DAILY duloxetine 30 mg Capsule,Delayed Release(Dr/Ec) 30 mg PO BID pravastatin 10 mg Tablet 10 mg PO HS acetaminophen [Tylenol] 325 mg tablet 1,000 mg PO Q6H PRN Anoro Ellipta 62.5-25 mcg/actuation blister with device 1 ea INHALATION DAILY Label Comments: INHALE ONE PUFF BY MOUTH EVERY DAY nicotine 7 mg/24 hr patch 24 hour 1 patch transdermal DIRECTED Label Comments: APPLY TO HAIRLESS SKIN DAILY ROTATE SKIN SITES ferrous gluconate 324 mg (38 mg iron) tablet 324 mg PO DAILY Label Comments: takes daily buprenorphine-naloxone [Suboxone] 4-1 mg film 1 film sublingual DAILY Label Comments: PLACE ONE FILM UNDER THE TONGUE EVERY DAY amlodipine 5 mg Tablet 5 mg PO DAILY Qty: 30 0RF pantoprazole 40 mg Tablet,Delayed Release (Dr/Ec) 40 mg PO DAILY@0730 Qty: 30 0RF sucralfate [Carafate] 1 gram tablet 1 gm PO QACHS Qty: 120 0RF Label Comments: does not take furosemide [Lasix] 40 mg Tablet 40 mg PO DAILY gabapentin 300 mg Capsule 300 mg PO TID Trulicity 0.75 mg/0.5 mL pen injector 0.75 mg SUBCUT .WEEKLY Label Comments: INJECT 0.75MG SUBCUTANEOUSLY WEEKLY metformin 500 mg tablet extended release 24 hr 1,000 mg PO BID Label Comments: TAKE TWO TABLETS BY MOUTH TWICE A DAY Discharge Instructions Instructions: Laceration (ED) Additional Instructions: Laceration was repaired without difficulty. Continue taking the already prescribed Keflex. Rest and elevate, cool and/or warm compresses every 2 hours for 20 minutes. Please watch for new or worsening symptoms and return to the ER for any concerns. Sutures should be removed in approximately 10 days. Change antibiotic dressing daily. Please contact your primary care provider on Monday to discuss your ER visit and need for outpatient reevaluation. Discharge Data Discharge Date/Time-TO BE ENTERED AT DEPARTURE: 07/31/21 22:36 Medical Decision Making This is a 55-year-old gentleman, history of diabetes, tetanus status not up-to-date, presents to the ER after accidentally cutting his left lower extremity with a machete while chopping down ferns in his yard. Will update tetanus and will repair the laceration. There is no arterial bleed. No signs of deep trauma or bony injury, extremely low suspicion for foreign body, no clear indication for x-ray. Patient is already taking Keflex for cellulitis of his right extremity. After injecting lidocaine with epi patient is asymptomatic. He was able to tolerate the laceration repaired at difficulty. Wound was then appropriately dressed. Standard discharge and return precautions were provided. Patient understands, is agreeable to this plan, and has no additional questions or concerns upon discharge. This documentation was generated using [employer] system, please disregard any oddities of phrase or misspellings. Medical Records Medical records reviewed: Yes I reviewed the patient's medical records. HPI General Mode of arrival: ambulatory. Date/Time Provider Initiated Documentation: 07/31/21 20:44. Limitations to Documentation: no limitations. Information obtained by: patient and family. History of Present Illness 55 year old M presents to the emergency department with the chief complaint of L Leg laceration, described as moderate, with intensity rated at 5. Quality is described as aching, and is localized to the left and lower extremity. Patient reports no radiation. Patient started experiencing this minute(s) (30) and it has been constant. No relieving factors improve symptom(s), No exacerbating factors reported . Patient notes no other symptoms.. Patient did receive the following treatments prior to arrival, none Related Data Home Medications Medication Instructions Recorded Confirmed furosemide 40 mg tablet (Lasix) 40 mg PO DAILY 02/15/19 09/27/20 gabapentin 300 mg capsule 300 mg PO TID 02/15/19 09/27/20 dulaglutide 0.75 mg/0.5 mL 0.75 mg subcut .WEEKLY 03/10/20 09/27/20 subcutaneous pen injector (Trulicity) metformin 500 mg tablet,extended 1,000 mg PO BID 03/25/20 09/27/20 release 24 hr esomeprazole magnesium 40 mg 40 mg PO DAILY 05/05/20 09/27/20 capsule,delayed release (Nexium) lisinopril 20 mg tablet 40 mg PO DAILY 05/05/20 09/27/20 aspirin 81 mg tablet 81 mg PO DAILY 08/03/20 09/27/20 duloxetine 30 mg capsule,delayed 30 mg PO BID 08/03/20 09/27/20 release pravastatin 10 mg tablet 10 mg PO HS 08/03/20 09/27/20 acetaminophen 325 mg tablet 1,000 mg PO Q6H PRN 09/27/20 09/27/20 (Tylenol) ferrous gluconate 324 mg (38 mg 324 mg PO DAILY 09/27/20 09/27/20 iron) tablet nicotine 7 mg/24 hr daily 1 patch transdermal DIRECTED 09/27/20 09/27/20 transdermal patch umeclidinium 62.5 mcg-vilanterol 1 ea inhalation DAILY 09/27/20 09/27/20 25 mcg/actuation powdr for inhalation (Anoro Ellipta) amlodipine 5 mg tablet 5 mg PO DAILY #30 tabs 09/28/20 buprenorphine 4 mg-naloxone 1 mg 1 film sublingual DAILY 09/28/20 09/28/20 sublingual film (Suboxone) pantoprazole 40 mg tablet,delayed 40 mg PO DAILY@0730 #30 tabs 09/28/20 release sucralfate 1 gram tablet (Carafate) 1 gm PO QACHS #120 tabs 09/28/20 Previous Rx's Medication Instructions Recorded amlodipine 5 mg tablet 5 mg PO DAILY #30 tabs 09/28/20 pantoprazole 40 mg tablet,delayed 40 mg PO DAILY@0730 #30 tabs 09/28/20 release sucralfate 1 gram tablet (Carafate) 1 gm PO QACHS #120 tabs 09/28/20 Allergies Allergy/AdvReac Type Severity Reaction Status Date / Time Penicillins AdvReac Severe Vomiting Verified 07/31/21 20:53 hydrocodone AdvReac Intermediate vomiting Verified 07/31/21 20:53 General LILLIAN: 3 Review of Systems Constitutional Constitutional: Denies fever(s) and Denies weakness Musculoskeletal Musculoskeletal: Denies arthralgias, Denies numbness and Denies tingling Integumentary/Breasts Skin/Breast: Denies rash Neurologic Neurologic: Denies numbness, Denies tingling and Denies weakness PFSH All Active Problems (Updated 07/31/21 @ 22:07 by CHIKI Batista) Laceration of left lower leg (Acute) Medical non-compliance (Acute) Cocaine abuse (Chronic) Hypertensive urgency (Acute) Dysphagia (Acute) Dyspnea (Acute) S/P endoscopy (Acute) Hypertensive emergency (Acute) Dyspepsia (Acute) Discharge planning issues (Acute) DVT (deep venous thrombosis) (Chronic) Pneumonia (Acute) Aragon esophagus (Acute) Diabetic neuropathy (Acute) Traumatic hematoma of right upper arm (Acute) Likely due to trauma sustained in the ambulance Anemia due to acute blood loss (Acute) Symptomatic anemia (Acute) 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) (Acute) Opiate dependence (Chronic) managed on suboxone Hypertension (Chronic) Discharge planning issues (Acute) Aortic insufficiency (Acute) s/p valve replacement Diabetes mellitus (Chronic) Acute anemia (Acute) Medical History Aortic valve endocarditis 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 GERD (gastroesophageal reflux disease) GI bleed Hepatitis C Hypomagnesemia MSSA (methicillin susceptible Staphylococcus aureus) septicemia Obstructive sleep apnea Osteomyelitis of left fibula Right rotator cuff tear Smoker Tinea corporis Surgical History H/O aortic valve replacement Pericardial aortic valve [place] [facility] [place] - Magna Ease 25 mm History of ankle surgery S/P hardware removal L ankle. S/P percutaneous endoscopic gastrostomy (PEG) tube placement S/P spinal surgery Family History Father No problems noted. Mother COPD (chronic obstructive pulmonary disease) Hypertension Diabetes Heart disease Sister Stroke Social History Smoking/Tobacco Use Status: Current every day Tobacco Type: cigarettes Smoking risk assessment performed?: Yes Alcohol Intake: never Drug use: Daily Substance use type: marijuana Caregiver/Support person: Yes Household members: friend(s) Number of Children: 0 number of grandchildren: 1 current occupation: Disabled Pets and animals: Yes Pets and animals: cat(s) Current gender identity: male What type of physical activity do you participate in: none Do you feel safe at home: Yes Do you feel safe in your relationship?: Yes Additional Social history: Lives with ex- Vanessa. Exam Const General: cooperative, healthy appearing, comfortable and no acute distress Orientation: alert and awake HENWV Head: normal to inspection, normocephalic and atraumatic Eyes Conjunctivae: conjunctivae normal Neck Neck: normal visual inspection, trachea midline and supple Resp Effort & Inspection: normal respiratory effort and able to speak in complete sentences Cardio Rate: regular rate Rhythm: regular rhythm Skin General skin exam: no rashes or lesions noted Neuro General: patient alert, patient awake, moves all extremities and no focal motor deficits Cognition: normal cognition Speech: speech normal Gait: antalgic Sensory Exam: no sensory deficits noted Extrem General: full ROM and capillary refill normal Ankle/foot/toe images: 1. 6 cm laceration with mild oozing but no arterial bleed. No obvious foreign body. Diffuse mild discomfort throughout. Neuro, vascular, tendon intact. Normal dorsalis pedal pulse and capillary refill. Psych Appearance: grossly normal Mental Status: mental status grossly normal Procedures Laceration Laceration 1: Site: lower extremity Side (If applicable): left Size (cm): 6 Description: linear and clean Depth: simple, single layer Local Anesthetic: Lidocaine 1% and with Epi Amount of anesthesia used (mL): 6 Pre-repair: wound explored and irrigated extensively Skin layer closed with: nylon Size (cm): 4-0 Number of sutures: 11 Technique: simple, interrupted Subcutaneous layer closed with: chromic gut Size: 4-0 Number of sutures: 3 Technique: simple, interrupted
[2021-07-31 20:48] VITALS: BP 155/90; PULSE 92; RESP 18; TEMP 36.3; O2SAT 95
--- NOTE | 2021-07-31 22:32 | NUR.NOTE ---
Nursing Note: patient left prior to discharge instructions. Patients wound was dressed with Telfa, and ABD Pad, and Cobain. Instructed on dressing care, and to check toes/ feet to ensure dressing not too tight. Reminded patient of his neuropathy to reinforce the need to check often. Verbalized understanding. No acute distress noted.
== END 2021-07-31 22:36 | disposition home or self-care (01) ==
PROVIDERS: Emergency Provider Physician Assistant; PCP Nurse Practitioner Family
DX: S81.822A Laceration with foreign body, left lower leg, initial encounter (principal); W26.0XXA Contact with knife, initial encounter; E11.40 Type 2 diabetes mellitus with diabetic neuropathy, unspecified; I10 Essential (primary) hypertension
CPT/HCPCS: 12002; 90471

== ENCOUNTER 2021-08-04 15:35 | Emergency (ER) | payer MEDICAID, SELFPAY ==
--- NOTE | 2021-08-04 15:43 | ED.GENADUL_ITS ---
Discharge Plan Disposition Patient Disposition: HOME Condition: Stable Discharge Details Clinical Impression: Leg wound, left, Cellulitis of left leg Primary Care Provider: Lexii Luna ED Provider: Leticia Epperson Home Meds and New Rx's Prescriptions: New doxycycline hyclate 100 mg tablet 100 mg PO BID 7 Days Qty: 14 0RF Continued lisinopril 20 mg tablet 40 mg PO DAILY esomeprazole magnesium [Nexium] 40 mg capsule,delayed release(DR/EC) 40 mg PO DAILY aspirin 81 mg Tablet 81 mg PO DAILY duloxetine 30 mg Capsule,Delayed Release(Dr/Ec) 30 mg PO BID pravastatin 10 mg Tablet 10 mg PO HS acetaminophen [Tylenol] 325 mg tablet 1,000 mg PO Q6H PRN Anoro Ellipta 62.5-25 mcg/actuation blister with device 1 ea INHALATION DAILY Label Comments: INHALE ONE PUFF BY MOUTH EVERY DAY nicotine 7 mg/24 hr patch 24 hour 1 patch transdermal DIRECTED Label Comments: APPLY TO HAIRLESS SKIN DAILY ROTATE SKIN SITES ferrous gluconate 324 mg (38 mg iron) tablet 324 mg PO DAILY Label Comments: takes daily buprenorphine-naloxone [Suboxone] 4-1 mg film 1 film sublingual DAILY Label Comments: PLACE ONE FILM UNDER THE TONGUE EVERY DAY amlodipine 5 mg Tablet 5 mg PO DAILY Qty: 30 0RF pantoprazole 40 mg Tablet,Delayed Release (Dr/Ec) 40 mg PO DAILY@0730 Qty: 30 0RF sucralfate [Carafate] 1 gram tablet 1 gm PO QACHS Qty: 120 0RF Label Comments: does not take furosemide [Lasix] 40 mg Tablet 40 mg PO DAILY gabapentin 300 mg Capsule 300 mg PO TID Trulicity 0.75 mg/0.5 mL pen injector 0.75 mg SUBCUT .WEEKLY Label Comments: INJECT 0.75MG SUBCUTANEOUSLY WEEKLY metformin 500 mg tablet extended release 24 hr 1,000 mg PO BID Label Comments: TAKE TWO TABLETS BY MOUTH TWICE A DAY Discharge Instructions Instructions: Cellulitis (ED) Additional Instructions: Your lab work and imaging today is reassuring and shows no evidence of acute c oncerning findings. You may be developing a mild infection of your left lower leg. Continue taking your Keflex as directed until finished. A prescription for an additional antibiotic called doxycycline has been sent electronically to your pharmacy to take as directed until finished. Continue to keep your sutures clean, dry and intact. Cover your wound at bedtime and if risk of contamination or injury. Follow-up with your primary care doctor in 2-3 days for re-evaluation. Follow-up with your primary care doctor or return to the emergency department in 6 days for suture removal. Return to the emergency department at any time with any worsening or new concerning symptoms such as fever, worsening redness, swelling or pain. Discharge Data Discharge Date/Time-TO BE ENTERED AT DEPARTURE: 08/04/21 20:13 Discharge Physician: Leticia Epperson Medical Decision Making 55-year-old male with multiple chronic medical problems including obesity, poorly controlled diabetes, CVA, hypertension, hyperlipidemia, DVT, hepatitis C, MSSA septicemia, aortic valve endocarditis with aortic valve replacement, osteomyelitis of the left fibula who received sutures to his left leg after sustained a laceration with a machete while cutting down ferns outside 4 days ago presents with concern for infection of his left leg. He had already been taking Keflex for cellulitis of his right leg. He has erythema noted to his bilateral lower extremities extending from his feet up to his proximal lower leg. He states this is chronic for some time. He endorses new sensation of swelling, tightness and pain to his left medial ankle and just below his left leg wounds. There is no fluctuant abscess and he states the erythema is at its baseline. 11 nylon sutures are noted in place and there is no surrounding abscess, fluctuance or induration at the site when expressed and overall the wound appears to be healing well. He is neurovascularly intact. Suspect most likely leg cellulitis. History and presentation does not appear consistent with DVT or acute vascular injury. Will obtain screening labs and left tib-fib x-ray to rule out foreign body or osteomyelitis. Labs and imaging reviewed and reassuring. White blood cell count 7, CRP 1.54. X-ray no acute findings. Patient advised to continue his Keflex and will add doxycycline to his antibiotic regimen for further MRSA coverage. Bactrim contraindicated due to risk of hyperkalemia with his COLIN inhibitor's. He is advised to rest and elevate his leg is much as possible and follow proper wound care. Patient states he has followed by home health. Advised to return immediately if he develops fever or worsening symptoms for reevaluation and consideration for additional imaging if indicated. Advised to follow up with the primary care doctor for re-evaluation. Usual and customary return precautions given prior to discharge. Medical Records Medical records reviewed: Yes I reviewed the patient's medical records. Lab Data Lab results reviewed: Yes I reviewed the patient's lab results. Labs: Laboratory Tests Range/Units 08/04/21 08/04/21 16:00 16:00 WBC (4.4-10.8) 10^3/uL 7.49 RBC (4.36-5.78) 10^6/uL 4.26 L Hgb (13.5-17.5) g/dL 11.0 L Hct (40.0-50.0) % 34.2 L MCV (80-95) fL 80 MCH (27.0-33.0) pg 25.8 L MCHC (32.0-36.0) % 32.2 RDW (11.8-14.1) % 15.2 H Plt Count (130-400) 10^3/uL 378 MPV (8.0-11.0) fL 9.4 Immature Gran % 0.3 Neutrophils % 63.3 Lymphocytes % 22.6 Monocytes % 9.2 Eosinophils % 3.7 Basophils % 0.9 Nucleated RBC % (0.0-0.3) % 0.0 Absolute Neutrophils (1.2-6.7) 10^3/uL 4.74 Absolute Lymphocytes (1.2-3.4) 10^3/uL 1.69 Absolute Monocytes (0.1-0.8) 10^3/uL 0.69 Absolute Eosinophils (0.0-0.7) 10^3/uL 0.28 Absolute Basophils (0.0-0.2) 10^3/uL 0.07 Sodium (136-145) mmol/L 142 Potassium (3.5-5.1) mmol/L 3.8 Chloride (98-107) mmol/L 105 Carbon Dioxide (21.0-32.0) mmol/L 26.1 Anion Gap (3-11) mmol/L 10.9 BUN (7-18) mg/dL 11 Creatinine (0.70-1.30) mg/dL 1.3 Estimated GFR/1.73 m2 (mL/min/1.73m2) 57.31 Glucose (74-106) mg/dL 135 H Calcium (8.5-10.1) mg/dL 8.5 Total Bilirubin (0.2-1.0) mg/dL 0.4 AST (15-37) U/L 10 L ALT (16-63) U/L 14 L Alkaline Phosphatase (46-116) U/L 80 C-Reactive Protein (0.0-0.3) mg/dL 1.54 H Total Protein (6.4-8.2) g/dL 7.8 Albumin (3.4-5.0) g/dL 3.4 HPI General Mode of arrival: ambulatory . Date/Time Provider Initiated Documentation: 08/04/21 15:43 . Limitations to Documentation: no limitations . Information obtained by: patient . HPI Narrative: Pt is a 55yo M who presents to the ED w/ a c/o multiple chronic medical problems including obesity, poorly controlled diabetes, CVA, hypertension, hyperlipidemia, DVT, hepatitis C, MSSA septicemia, aortic valve endocarditis with aortic valve replacement, osteomyelitis of the left fibula who was seen here 4 days ago for suture placement after he cut his left leg with a machete accidentally while cutting down for ferns outside presents with concern for infection to his left leg. Patient has already been on Keflex per his PCP for right leg cellulitis. He states he has chronic bilateral lower extremity redness and states he feels his left leg redness is no worse than usual at baseline but states he feels he has more swelling and a feeling of tightness to his left medial ankle just distal to his left leg wound. He denies any worsening pain to his left leg wound. He denies any known fever. Related Data Home Medications Medication Instructions Recorded Confirmed furosemide 40 mg tablet (Lasix) 40 mg PO DAILY 02/15/19 08/04/21 gabapentin 300 mg capsule 300 mg PO TID 02/15/19 08/04/21 dulaglutide 0.75 mg/0.5 mL 0.75 mg subcut .WEEKLY 03/10/20 08/04/21 subcutaneous pen injector (Trulicity) metformin 500 mg tablet,extended 1,000 mg PO BID 03/25/20 08/04/21 release 24 hr esomeprazole magnesium 40 mg 40 mg PO DAILY 05/05/20 08/04/21 capsule,delayed release (Nexium) lisinopril 20 mg tablet 40 mg PO DAILY 05/05/20 08/04/21 aspirin 81 mg tablet 81 mg PO DAILY 08/03/20 08/04/21 duloxetine 30 mg capsule,delayed 30 mg PO BID 08/03/20 08/04/21 release pravastatin 10 mg tablet 10 mg PO HS 08/03/20 08/04/21 acetaminophen 325 mg tablet 1,000 mg PO Q6H PRN 09/27/20 08/04/21 (Tylenol) ferrous gluconate 324 mg (38 mg 324 mg PO DAILY 09/27/20 08/04/21 iron) tablet nicotine 7 mg/24 hr daily 1 patch transdermal DIRECTED 09/27/20 08/04/21 transdermal patch umeclidinium 62.5 mcg-vilanterol 1 ea inhalation DAILY 09/27/20 08/04/21 25 mcg/actuation powdr for inhalation (Anoro Ellipta) amlodipine 5 mg tablet 5 mg PO DAILY #30 tabs 09/28/20 08/04/21 buprenorphine 4 mg-naloxone 1 mg 1 film sublingual DAILY 09/28/20 08/04/21 sublingual film (Suboxone) pantoprazole 40 mg tablet,delayed 40 mg PO DAILY@0730 #30 tabs 09/28/20 08/04/21 release sucralfate 1 gram tablet (Carafate) 1 gm PO QACHS #120 tabs 09/28/20 08/04/21 doxycycline hyclate 100 mg tablet 100 mg PO BID 7 days #14 tabs 08/04/21 Previous Rx's Medication Instructions Recorded amlodipine 5 mg tablet 5 mg PO DAILY #30 tabs 09/28/20 pantoprazole 40 mg tablet,delayed 40 mg PO DAILY@0730 #30 tabs 09/28/20 release sucralfate 1 gram tablet (Carafate) 1 gm PO QACHS #120 tabs 09/28/20 doxycycline hyclate 100 mg tablet 100 mg PO BID 7 days #14 tabs 08/04/21 Allergies Allergy/AdvReac Type Severity Reaction Status Date / Time Penicillins AdvReac Severe Vomiting Verified 08/04/21 15:50 hydrocodone AdvReac Intermediate vomiting Verified 08/04/21 15:50 General Stated Complaint: Cellulitis LILLIAN: 4 Review of Systems All systems reviewed & are unremarkable except as noted in HPI and below Constitutional Constitutional: Reports as per HPI, Denies chills and Denies fever(s) Eyes Eyes: Denies blurry vision ENT Ears, Nose, Mouth, and Throat: Denies dizziness, Denies sore throat and Denies throat swelling Cardiovascular Cardiovascular: Denies chest pain and Denies dyspnea Respiratory Respiratory: Denies cough and Denies dyspnea Gastrointestinal Gastrointestinal: Denies abdominal pain, Denies diarrhea and Denies vomiting Genitourinary Genitourinary: Denies hematuria and Denies dysuria Musculoskeletal Musculoskeletal: Denies back pain and Denies numbness Comments: L leg pain pain and swelling Integumentary/Breasts Skin/Breast: Denies lesions and Reports rash Neurologic Neurologic: Denies dizziness, Denies localized weakness and Denies numbness Allergic/Immunologic Allergic/Immunologic: Denies throat swelling PFSH All Active Problems (Updated 08/04/21 @ 17:27 by Leticia Epperson DO) Laceration of left lower leg (Acute) Leg wound, left (Acute) Cellulitis of left leg (Acute) Medical non-compliance (Acute) Cocaine abuse (Chronic) Hypertensive urgency (Acute) Dysphagia (Acute) Dyspnea (Acute) S/P endoscopy (Acute) Hypertensive emergency (Acute) Dyspepsia (Acute) Discharge planning issues (Acute) DVT (deep venous thrombosis) (Chronic) Pneumonia (Acute) Aragon esophagus (Acute) Diabetic neuropathy (Acute) Traumatic hematoma of right upper arm (Acute) Likely due to trauma sustained in the ambulance Anemia due to acute blood loss (Acute) Symptomatic anemia (Acute) 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) (Acute) Opiate dependence (Chronic) managed on suboxone Hypertension (Chronic) Discharge planning issues (Acute) Aortic insufficiency (Acute) s/p valve replacement Diabetes mellitus (Chronic) Acute anemia (Acute) Medical History Aortic valve endocarditis 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 GERD (gastroesophageal reflux disease) GI bleed Hepatitis C Hypomagnesemia MSSA (methicillin susceptible Staphylococcus aureus) septicemia Obstructive sleep apnea Osteomyelitis of left fibula Right rotator cuff tear Smoker Tinea corporis Surgical History H/O aortic valve replacement Pericardial aortic valve at [facility] - 08/21/2018 - Magna Ease 25 mm History of ankle surgery S/P hardware removal L ankle. S/P percutaneous endoscopic gastrostomy (PEG) tube placement S/P spinal surgery Family History Father No problems noted. Mother COPD (chronic obstructive pulmonary disease) Hypertension Diabetes Heart disease Sister Stroke Social History Smoking/Tobacco Use Status: Current every day Tobacco Type: cigarettes Smoking risk assessment performed?: Yes Alcohol Intake: never Drug use: Daily Substance use type: marijuana Caregiver/Support person: Yes Household members: friend(s) Number of Children: 0 number of grandchildren: 1 current occupation: Disabled Pets and animals: Yes Pets and animals: cat(s) Current gender identity: male What type of physical activity do you participate in: none Do you feel safe at home: Yes Do you feel safe in your relationship?: Yes Additional Social history: Lives with ex- Vanessa. Exam Const General: cooperative and no acute distress Orientation: alert, awake and oriented x3 HENMT Head: normal to inspection Mouth: oral mucosae normal Eyes General: appearance normal, both eyes and all related structures Neck Neck: normal visual inspection Resp Effort & Inspection: normal respiratory effort and able to speak in complete sentences Cardio Rate: regular rate Skin General skin exam: no rashes or lesions noted Neuro General: patient alert, patient awake and patient oriented x3 Motor: muscle tone normal throughout Extrem Ankle/foot/toe images: 1. 4 cm linear wound with 11 nylon sutures noted in place. No surrounding fluctuance, drainage or bleeding. 2. Erythema 3. Area of tenderness and swelling. Other: L DP/PT pulses intact. Psych Appearance: grossly normal Affect: normal affect
[2021-08-04 15:44] VITALS: BP 168/88; PULSE 80; RESP 20; TEMP 36.6; O2SAT 95
[2021-08-04 16:13] LABS: Abs Immature Grans 0.02 10^3/uL (0.0-0.06); Absolute Basophil Count 0.07 10^3/uL (0.0-0.2); Absolute Eosinophil Count 0.28 10^3/uL (0.0-0.7); Absolute Lymphocyte Count 1.69 10^3/uL (1.2-3.4); Absolute Monocyte Count 0.69 10^3/uL (0.1-0.8); Absolute Neutrophil Count 4.74 10^3/uL (1.2-6.7); Basophils % 0.9; Eosinophils % 3.7; HCT 34.2 % (40.0-50.0); Immature Grans % 0.3; Lymphocytes % 22.6; MCH 25.8 pg (27.0-33.0); MCHC 32.2 % (32.0-36.0); MCV 80 fL (80-95); MPV 9.4 fL (8.0-11.0); Monocytes % 9.2; Neutrophils % 63.3; Platelet Count 378 10^3/uL (130-400); RBC 4.26 10^6/uL (4.36-5.78); RDW 15.2 % (11.8-14.1); RDW-SD 44.3 fL; WBC 7.49 10^3/uL (4.4-10.8)
[2021-08-04 16:21] LABS: ALT 14 U/L (16-63); AST 10 U/L (15-37); Albumin 3.4 g/dL (3.4-5.0); Alkaline Phosphatase 80 U/L (46-116); Anion Gap 10.9 mmol/L (3-11); BUN 11 mg/dL (7-18); Bilirubin, Total 0.4 mg/dL (0.2-1.0); C-Reactive Protein 1.54 mg/dL (0.0-0.3); CO2 26.1 mmol/L (21.0-32.0); CREATININE 1.3 mg/dL (0.70-1.30); Calcium 8.5 mg/dL (8.5-10.1); Chloride 105 mmol/L (98-107); Estimated GFR 57.31 (mL/min/1.73m2); Glucose 135 mg/dL (74-106); Potassium 3.8 mmol/L (3.5-5.1); Sodium 142 mmol/L (136-145); Total Protein 7.8 g/dL (6.4-8.2)
--- NOTE | 2021-08-04 16:40 | DI.RAD_ITS ---
Exam(s) XR TIB/FIB LT EXAM: XR TIB/FIB LT CLINICAL HISTORY: L lower leg laceration, r/o foreign body/fx. TECHNIQUE: 2D digital imaging was performed. COMPARISON: CR XR TIB/FIB LT from 04/22/2019 FINDINGS: 3 views Lucencies in the distal tibia fibula related to prior hardware presents. No radiographic evidence of osteomyelitis. No acute fractures. No obvious degenerative changes knee. Talar dome appears unrem arkable. IMPRESSION: DATA REPOSITORY: RADIATION DOSE DELIVERED:
--- NOTE | 2021-08-04 17:51 | DI.VRAD_ITS ---
PROCEDURE INFORMATION: Exam: XR Left Tibia and Fibula Exam date and time: 08/04/2021 4:56 PM Age: 55 years old Clinical indication: Other: L lower leg lac, R/O foreign body TECHNIQUE: Imaging protocol: XR Left tibia and fibula. Views: 2 views. COMPARISON: MR LOWER EXTREMITY LT WO/W 05/15/2019 9:28 AM FINDINGS: Bones/joints: The bones appear demineralized. Smooth periosteal new bone formation and lucent tracks within the distal fibular metadiaphysis, may represent sequela of trauma and treatment change. No acute fracture or malalignment. Soft tissues: Diffuse soft tissue swelling. No radiodense foreign body IMPRESSION: 1. No radiodense foreign body 2. Smooth periosteal new bone formation and lucent tracks within the distal fibular metadiaphysis, may represent sequela of trauma and treatment change. Dictated and Authenticated by: Ade Lugo MD. Ordering:PAKO Kelly MD
[2021-08-04 17:59] VITALS: BP 136/72; PULSE 82; RESP 16; O2SAT 97
== END 2021-08-04 20:13 | disposition home or self-care (01) ==
PROVIDERS: Emergency Provider Physician Assistant; PCP Nurse Practitioner Family
DX: S81.822D Laceration with foreign body, left lower leg, subsequent encounter (principal); W26.0XXD Contact with knife, subsequent encounter; L03.116 Cellulitis of left lower limb; I10 Essential (primary) hypertension; E11.69 Type 2 diabetes mellitus with other specified complication
CPT/HCPCS: 36415; 80053; 99284; 73590; 85025; 86140

== ENCOUNTER → 2021-08-11 01:26 | Outpatient (CLI) | payer MEDICAID, SELFPAY | PROVIDERS: PCP Nurse Practitioner Family; Visit Provider Nurse Practitioner Family ==

== ENCOUNTER → 2021-08-16 02:24 | Outpatient (CLI) | payer MEDICAID, SELFPAY ==
--- NOTE | 2021-08-16 | DI.RAD_ITS ---
Exam(s) XR TIB/FIB RT EXAM: XR TIB/FIB RT CLINICAL HISTORY: OSTEOMYELITIS, M86.9. TECHNIQUE: 2D digital imaging was performed. COMPARISON: CR XR TIB/FIB LT from 08/16/2021 FINDINGS: Two views There is a metallic round BB foreign body in the lateral soft tissues the mid right calf level. Ther e is some indistinctness of the surrounding soft tissues. There are no fractures and and no radiogra phic evidence of osteomyelitis. The as a metallic BB marker is approximately 1.6 cm from the bone. IMPRESSION: Metallic foreign body BB. No fracture. No radiographic evidence of osteomyelitis. DATA REPOSITORY: RADIATION DOSE DELIVERED:
--- NOTE | 2021-08-16 | DI.RAD_ITS ---
Exam(s) XR TIB/FIB LT EXAM: XR TIB/FIB LT CLINICAL HISTORY: OSTEOMYELITIS, M86.9. TECHNIQUE: 2D digital imaging was performed. COMPARISON: CR,XR XR TIB/FIB LT from 08/04/2021 FINDINGS: Two views No evidence of fracture nor bone loss. No radiographic evidence of osteomyelitis, as per request. T here is no radiopaque foreign body. No osseous lesions IMPRESSION: No significant radiographic findings. DATA REPOSITORY: RADIATION DOSE DELIVERED:
== END ==
PROVIDERS: PCP Nurse Practitioner Family; Visit Provider Nurse Practitioner Family
DX: M79.5 Residual foreign body in soft tissue
CPT/HCPCS: 73590

== ENCOUNTER 2021-08-28 19:22 | Emergency (ER) | payer MEDICAID, SELFPAY ==
[2021-08-28] VITALS (21 sets, daily range): BP systolic 138–149; BP diastolic 69–94; PULSE 57–90; RESP 12–20; TEMP 36.6–36.8; O2SAT 93–99
--- NOTE | 2021-08-28 19:15 | RT.EKG_ITS ---
APPROVED REPORT Exam: Resting ECG Reason for Exam: weakness Patient Location: E HR:78 bpm ECG Measurements Heart Rate 78 AXIS AR 172 P 55 QRSd 107 QRS 37 QT 388 T 91 QTc 443 Conclusion Sinus rhythm...normal P axis, V-rate 60- 99 Probable left atrial enlargement...P >50mS, <-0.10mV V1 Nonspecific T abnrm, anterolateral leads...T <-0.10mV, I aVL V2-V6. Sinus. Normal axis. No STEMI. I have reviewed and interpreted ECG and agree with software generated interpretation.
--- NOTE | 2021-08-28 19:45 | DI.RAD_ITS ---
Exam(s) XR FOOT LT COMPLETE EXAM: XR FOOT LT COMPLETE CLINICAL HISTORY: stubbed L great toe, r/o fx. TECHNIQUE: 2D digital imaging was performed of the left foot. Three images were obtained. AP, obli que and lateral views were obtained. COMPARISON: No exams were available for comparison FINDINGS: BONES: No acute fracture is present. No bony destructive lesion is seen. Small plantar calcaneal spur . JOINTS: No dislocation present. Mild degenerative changes in the foot. SOFT TISSUE: Soft tissue swelling of the foot. IMPRESSION: No acute fracture or dislocation. DATA REPOSITORY: RADIATION DOSE DELIVERED:
--- NOTE | 2021-08-28 19:45 | DI.CT_ITS ---
Exam(s) CT HEAD WO EXAM: CT HEAD WO CLINICAL HISTORY: blurry vision, slurred speech, r/o acute disease. TECHNIQUE: Imaging Protocol: Axial computed tomography images with coronal and sagittal reformatted images were created and reviewed COMPARISON: CT CT HEAD WO from 09/27/2020 FINDINGS: Ventricles and Extra axial spaces: Normal in size and morphology for the patient's age. Hemorrhage: None. Cerebral parenchyma: Stable areas of encephalomalacia in the left frontal left parietal lobes. No ac [place] territorial infarct. There are areas of decreased attenuation in the white matter most likely re flecting chronic microvascular ischemic disease. Midline shift: None. Brainstem/Cerebellum: Normal. Calvarium: Normal. Visualized Paranasal sinuses/Mastoids: Mucosal thickening in the maxillary sinuses. Small mucous ret ention cysts or polyps are seen in the maxillary sinuses. The remaining visualized paranasal sinuses are mostly clear. No fluid levels are seen. Mastoid air cells are clear. Soft Tissues: Unremarkable. IMPRESSION: No acute intracranial process. RADIATION DOSE DELIVERED: 839.62mGy.cm Total DLP DATA REPOSITORY: All CT scans at this facility are submitted to the National Radiology Data Registry (NRDR) Dose Index Registry (DIR) with the [employer] (A[employer]). RADIATION OPTIMIZATION: All CT scans at this facility use at least one of these dose optimization te chniques: automated exposure control; mA and/or kV adjustment per patient size (includes targeted exa ms where dose is matched to clinical indication); or iterative reconstruction.
--- NOTE | 2021-08-28 19:51 | ED.GENADUL_ITS ---
Discharge Plan Disposition Patient Disposition: HOME Condition: Stable Discharge Details Clinical Impression: Weakness Primary Care Provider: Lexii Luna ED Provider: Mio Blas Home Meds and New Rx's Prescriptions: Continued lisinopril 20 mg tablet 40 mg PO DAILY esomeprazole magnesium [Nexium] 40 mg capsule,delayed release(DR/EC) 40 mg PO DAILY aspirin 81 mg Tablet 81 mg PO DAILY duloxetine 30 mg Capsule,Delayed Release(Dr/Ec) 30 mg PO BID pravastatin 10 mg Tablet 10 mg PO HS acetaminophen [Tylenol] 325 mg tablet 1,000 mg PO Q6H PRN Anoro Ellipta 62.5-25 mcg/actuation blister with device 1 ea INHALATION DAILY Label Comments: INHALE ONE PUFF BY MOUTH EVERY DAY nicotine 7 mg/24 hr patch 24 hour 1 patch transdermal DIRECTED Label Comments: APPLY TO HAIRLESS SKIN DAILY ROTATE SKIN SITES ferrous gluconate 324 mg (38 mg iron) tablet 324 mg PO DAILY Label Comments: takes daily buprenorphine-naloxone [Suboxone] 4-1 mg film 1 film sublingual DAILY Label Comments: PLACE ONE FILM UNDER THE TONGUE EVERY DAY amlodipine 5 mg Tablet 5 mg PO DAILY Qty: 30 0RF pantoprazole 40 mg Tablet,Delayed Release (Dr/Ec) 40 mg PO DAILY@0730 Qty: 30 0RF sucralfate [Carafate] 1 gram tablet 1 gm PO QACHS Qty: 120 0RF Label Comments: does not take furosemide [Lasix] 40 mg Tablet 40 mg PO DAILY gabapentin 300 mg Capsule 300 mg PO TID Trulicity 0.75 mg/0.5 mL pen injector 0.75 mg SUBCUT .WEEKLY Label Comments: INJECT 0.75MG SUBCUTANEOUSLY WEEKLY metformin 500 mg tablet extended release 24 hr 1,000 mg PO BID Label Comments: TAKE TWO TABLETS BY MOUTH TWICE A DAY Discharge Instructions Additional Instructions: Your cat scan and xray of your foot did not show concerning findings. You did have evidence of mild dehydration on lab work up Follow up with your primary care provider this week if you feel more ill, have worsening symptoms or difficulty breathing return to the emergency department Discharge Data Discharge Date/Time-TO BE ENTERED AT DEPARTURE: 08/28/21 21:57 Medical Decision Making <Leticia Epperson DO - Last Filed: 08/29/21 08:34> 08/28/21 Dr. Epperson 55-year-old male with a history of former IV drug abuse, aortic valve endocarditis with aortic valve replacement, CVA with cerebral septic emboli, GERD, hypertension, osteomyelitis of left fibula, hepatitis C, obstructive sleep apnea and obesity presents for blurry vision, slurred speech and left lower facial numbness since 4 PM today. Also admits to increasing generalized weakness throughout the day. Patient well-known to the emergency department and there does not appear to be an acute change in his speech pattern. Mild tongue deviation to the right on exam but otherwise no other cranial nerve focal deficits. PERRLA. His right upper and right lower extremity 4/5 muscle weakness is chronic secondary to previous CVA. Muscle strength left upper and left lower extremity 5/5. Differential diagnosis includes CVA, UTI, dehydration, electrolyte abnormality. History of presentation does not appear consistent with meningitis or subarachnoid hemorrhage. Will obtain screening labs, CT head, chest x-ray, left foot xray, urinalysis. Case endorsed to Dr. Blas to follow-up on labs and imaging and final disposition. 08/28/21 Dr. Blas pt signed out to me and imaging of head, xray and foot show no acute findings, labs show anemia hgb down 1.2 from last month and has mild maite with creatinine of 1.8 up from 1.3. He is sleeping on reassessment and awakens easily. He now states he doesn't feel his speech is slurred and feels that he is at his baseline. his speech has mild slurring but he reiterates to me that this is his baseline and unchanged. I offered admission for possible TIA but he declined and has decision making capacity and understands risks of leaving including having a cva and worsening deficits requiring constant care and he still doesn't want to be hospitalized. He also is declining to have a rectal exam despite being told the reason is to evaluate for possible GI bleed. He was advised to f/u with pcp melanie and also advised to return if he feels any worsening of symptoms or new symptoms such as chest pain or shortness of breath. Medical Records Medical records reviewed: Yes I reviewed the patient's medical records. ECG Data Attestation: I personally reviewed and interpreted this ECG (s) as follows: Interpretation: Rate of 78, sinus, no STEMI <Mio Blas MD - Last Filed: 08/28/21 21:27> 55-year-old male with a history of former IV drug abuse, aortic valve endocarditis with aortic valve replacement, CVA with cerebral septic emboli, GERD, hypertension, osteomyelitis of left fibula, hepatitis C, obstructive sleep apnea and obesity presents for blurry vision, slurred speech and left lower facial numbness since 4 PM today. Also admits to increasing generalized weakness throughout the day. Hi there patient well-known to the emergency department and then does not appear to be an acute change in his speech pattern. Tongue deviation to the right on exam but otherwise no other cranial nerve focal deficits. PERRLA. His right upper and right lower extremity 4/5 muscle weakness is chronic secondary to previous CVA. Muscle strength left upper and left lower extremity 5/5. Differential diagnosis includes CVA, UTI, dehydration, electrolyte abnormality. History of presentation does not appear consistent with meningitis or subarachnoid hemorrhage. Will obtain screening labs, CT head, chest x-ray, left foot xray, urinalysis. Case endorsed to Dr. Blas to follow-up on labs and imaging and final disposition. pt signed out to me and imaging of head, xray and foot show no acute findings, labs show anemia hgb down 1.2 from last month and has mild maite with creatinine of 1.8 up from 1.3. He is sleeping on reassessment and awakens easily. He now states he doesn't feel his speech is slurred and feels that he is at his baseline. his speech has mild slurring but he reiterates to me that this is his baseline and unchanged. I offered admission for possible TIA but he declined and has decision making capacity and understands risks of leaving including having a cva and worsening deficits requiring constant care and he still doesn't want to be hospitalized. He also is declining to have a rectal exam despite being told the reason is to evaluate for possible GI bleed. He was advised to f/u with pcp melanie and also advised to return if he feels any worsening of symptoms or new symptoms such as chest pain or shortness of breath Medical Records Medical records reviewed: Yes I reviewed the patient's medical records. Imaging Data Radiologic Study: Attestation: I personally reviewed and interpreted this imaging study as follows: Imaging: CT Scan Radiologist's impression: no acute findings Radiologic Study #2: Attestation: I personally reviewed and interpreted this imaging study as follows: Imaging: X-Ray Radiologist's impression: no acute findings on foot xray Radiologic Study #3: Attestation: I personally reviewed and interpreted this imaging study as follows: Imaging: X-Ray Radiologist's impression: no acute findings on cxr HPI <Leticiakristin Epperson, - Last Filed: 08/29/21 08:34> General Mode of arrival: ambulatory . Date/Time Provider Initiated Documentation: 08/28/21 19:28 . Limitations to Documentation: no limitations . Information obtained by: patient . HPI Narrative: Patient is a 55-year-old male with a history of former IV drug use with aortic valve endocarditis and aortic valve replacement, CVA w/ cerebral septic emboli, hepatitis C, osteomyelitis of left fibula and DVT presents with complaint of blurry vision, slurred speech and increasing weakness throughout the day. Patient states he has blurry vision in both eyes with worsening of his chronic slurred speech and left jaw numbness since 4pm today. He states he uses a walker at baseline as needed for ambulation. He also endorses he is concerned about pain in his left great toe as he stubbed it on a couch a few days ago. He denies fever, neck pain, headache, dizziness, chest pain, shortness of breath, abdominal pain, nausea, vomiting, diarrhea, urinary symptoms. Related Data Home Medications Medication Instructions Recorded Confirmed furosemide 40 mg tablet (Lasix) 40 mg PO DAILY 02/15/19 08/28/21 gabapentin 300 mg capsule 300 mg PO TID 02/15/19 08/28/21 dulaglutide 0.75 mg/0.5 mL 0.75 mg subcut .WEEKLY 03/10/20 08/28/21 subcutaneous pen injector (Trulicity) metformin 500 mg tablet,extended 1,000 mg PO BID 03/25/20 08/28/21 release 24 hr esomeprazole magnesium 40 mg 40 mg PO DAILY 05/05/20 08/28/21 capsule,delayed release (Nexium) lisinopril 20 mg tablet 40 mg PO DAILY 05/05/20 08/28/21 aspirin 81 mg tablet 81 mg PO DAILY 08/03/20 08/28/21 duloxetine 30 mg capsule,delayed 30 mg PO BID 08/03/20 08/28/21 release pravastatin 10 mg tablet 10 mg PO HS 08/03/20 08/28/21 acetaminophen 325 mg tablet 1,000 mg PO Q6H PRN 09/27/20 08/28/21 (Tylenol) ferrous gluconate 324 mg (38 mg 324 mg PO DAILY 09/27/20 08/28/21 iron) tablet nicotine 7 mg/24 hr daily 1 patch transdermal DIRECTED 09/27/20 08/28/21 transdermal patch umeclidinium 62.5 mcg-vilanterol 1 ea inhalation DAILY 09/27/20 08/28/21 25 mcg/actuation powdr for inhalation (Anoro Ellipta) amlodipine 5 mg tablet 5 mg PO DAILY #30 tabs 09/28/20 08/28/21 buprenorphine 4 mg-naloxone 1 mg 1 film sublingual DAILY 09/28/20 08/28/21 sublingual film (Suboxone) pantoprazole 40 mg tablet,delayed 40 mg PO DAILY@0730 #30 tabs 09/28/20 08/28/21 release sucralfate 1 gram tablet (Carafate) 1 gm PO QACHS #120 tabs 09/28/20 08/28/21 Previous Rx's Medication Instructions Recorded amlodipine 5 mg tablet 5 mg PO DAILY #30 tabs 09/28/20 pantoprazole 40 mg tablet,delayed 40 mg PO DAILY@0730 #30 tabs 09/28/20 release sucralfate 1 gram tablet (Carafate) 1 gm PO QACHS #120 tabs 09/28/20 Allergies Allergy/AdvReac Type Severity Reaction Status Date / Time Penicillins AdvReac Severe Vomiting Verified 08/04/21 15:50 hydrocodone AdvReac Intermediate vomiting Verified 08/04/21 15:50 General Stated Complaint: GenMedical LILLIAN: 3 Review of Systems <Leticia Epperson DO - Last Filed: 08/29/21 08:34> All systems reviewed & are unremarkable except as noted in HPI and below Constitutional Constitutional: Denies chills, Denies excessive sweating, Denies fatigue, Denies fever(s), Denies weakness and Denies weight loss Eyes Eyes: Reports system reviewed and no additional complaints, except as documented and Reports blurry vision ENT Ears, Nose, Mouth, and Throat: Denies vertigo, Denies dizziness, Denies otalgia, Denies nasal congestion, Denies sore throat and Denies throat swelling Cardiovascular Cardiovascular: Denies chest pain, Denies syncope, Denies rapid heart rate and Denies dyspnea Respiratory Respiratory: Denies chest congestion, Denies cough, Denies pain on inspiration and Denies dyspnea Gastrointestinal Gastrointestinal: Denies abdominal pain, Denies diarrhea and Denies vomiting Genitourinary Genitourinary: Denies hematuria, Denies dysuria and Denies flank pain Musculoskeletal Musculoskeletal: Denies back pain and Denies joint swelling Integumentary/Breasts Skin/Breast: Denies lesions and Denies rash Neurologic Neurologic: Reports abnormal speech, Denies behavioral changes, Denies confusion, Denies vertigo, Denies dizziness, Denies syncope, Denies localized weakness and Denies weakness Psychiatric Psychiatric: Denies behavioral changes, Denies confusion and Denies depression Endocrine Endocrine: Denies excessive sweating and Denies fatigue Hematologic/Lymphatic Hematologic/Lymphatic: Denies easy bruising and Denies lymphadenopathy Allergic/Immunologic Allergic/Immunologic: Denies throat swelling [facility] <Leticia Epperson, DO - Last Filed: 08/29/21 08:34> All Active Problems (Updated 08/28/21 @ 21:19 by Mio Blas MD) Laceration of left lower leg (Acute) Leg wound, left (Acute) Cellulitis of left leg (Acute) Weakness (Acute) Medical non-compliance (Acute) Cocaine abuse (Chronic) Hypertensive urgency (Acute) Dysphagia (Acute) Dyspnea (Acute) S/P endoscopy (Acute) Hypertensive emergency (Acute) Dyspepsia (Acute) Discharge planning issues (Acute) DVT (deep venous thrombosis) (Chronic) Pneumonia (Acute) Aragon esophagus (Acute) Diabetic neuropathy (Acute) Traumatic hematoma of right upper arm (Acute) Likely due to trauma sustained in the ambulance Anemia due to acute blood loss (Acute) Symptomatic anemia (Acute) 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) (Acute) Opiate dependence (Chronic) managed on suboxone Hypertension (Chronic) Discharge planning issues (Acute) Aortic insufficiency (Acute) s/p valve replacement Diabetes mellitus (Chronic) Acute anemia (Acute) Medical History Aortic valve endocarditis Cerebral septic emboli causing stroke with residual right hemiparesis and expressive aphasia Chronic pain Depression Displaced bimalleolar fracture of left ankle s/p infection of wound DVT, lower extremity previously on coumadin Endocarditis G tube feedings Per referral form Zach Sanders 09/18/18 placed by [facility] for endocarditis, no longer using. GERD (gastroesophageal reflux disease) GI bleed Hepatitis C Hypomagnesemia MSSA (methicillin susceptible Staphylococcus aureus) septicemia Obstructive sleep apnea Osteomyelitis of left fibula Right rotator cuff tear Smoker Tinea corporis Surgical History H/O aortic valve replacement Pericardial aortic valve at [facility] - 08/21/2018 - Magna Ease 25 mm History of ankle surgery S/P hardware removal L ankle. S/P percutaneous endoscopic gastrostomy (PEG) tube placement S/P spinal surgery Family History Father No problems noted. Mother COPD (chronic obstructive pulmonary disease) Hypertension Diabetes Heart disease Sister Stroke Social History Smoking/Tobacco Use Status: Current every day Tobacco Type: cigarettes Smoking risk assessment performed?: Yes Alcohol Intake: never Drug use: Daily Substance use type: marijuana Caregiver/Support person: Yes Household members: friend(s) Number of Children: 0 number of grandchildren: 1 current occupation: Disabled Pets and animals: Yes Pets and animals: cat(s) Current gender identity: male What type of physical activity do you participate in: none Do you feel safe at home: Yes Do you feel safe in your relationship?: Yes Additional Social history: Lives with ex- Vanessa. Exam <Leticia Epperson DO - Last Filed: 08/29/21 08:34> Const General: cooperative and no acute distress Orientation: alert, awake and oriented x3 HENMT Head: normal to inspection Ears: hearing grossly normal bilaterally, external ears normal and TM's normal bilaterally General nose exam: external nose normal Face and sinus: normal facial exam Mouth: mucous membranes dry Teeth and gingiva: dentition normal Throat: posterior oropharynx normal Eyes General: appearance normal, both eyes and all related structures Eyelids: eyelids normal Pupils: PERRL EOM: EOM intact bilaterally Neck Neck: normal visual inspection Lymphatic: no lymphadenopathy noted Chest Chest: normal inspection of the chest Resp Effort & Inspection: normal respiratory effort and able to speak in complete sentences Auscultation: clear to auscultation bilaterally Cardio Rate: regular rate Rhythm: regular rhythm GI Inspection: normal to inspection and obesity Palpation: soft, not firm, no guarding, no hepatosplenomegaly, no masses and nontender Auscultation: hypoactive bowel sounds Skin General skin exam: no rashes or lesions noted Neuro General: patient alert, patient awake, patient oriented x3 and no meningeal signs Cranial Nerves: other (Mild tongue deviation to right, otherwise cranial nerves intact) Cognition: normal cognition Speech: abnormal speech slurred (at baseline) Other: Muscle strength right arm and right leg 4/5. Muscle strength left arm and left leg 5/5 Extrem General: capillary refill normal Other: Chronic appearing skin changes to bilateral lower extremities with induration and erythema but no acute evidence of cellulitis. Tenderness to palpation to th e left great toe without mild edema but without erythema, significant ecchymoses or obvious deformity. 3 x 1 cm chronic appearing open laceration to left anterior distal leg. Psych Appearance: grossly normal Mental Status: mental status grossly normal Speech and Movement: speech and movement normal Affect: normal affect Thought Process: normal Course <Leticia Epperson DO - Last Filed: 08/29/21 08:34> Vital Signs Vital signs: Vital Signs Temperature 97.9 F 08/28/21 19:26 Pulse 80 08/28/21 19:26 Respiratory Rate 17 08/28/21 19:26 Blood Pressure 144/86 H 08/28/21 19:26 Pulse Oximetry 93 08/28/21 19:26 Temperature 97.9 F 08/28/21 19:26 Temperature Source Skin 08/28/21 19:26 Pulse 80 08/28/21 19:26 Respiratory Rate 17 08/28/21 19:26 Blood Pressure 144/86 H 08/28/21 19:26 Pulse Oximetry 93 08/28/21 19:26 Pain Level 0 08/28/21 19:26 Sign Out <Leticia Epperson DO - Last Filed: 08/29/21 08:34> Sign Out Data: Sign Out Comment: Blurry vision, slurred speech since 4 PM. Follow-up on labs and imaging and final disposition. Last updated by Leticia Epperson DO at 08/28/21 19:52
--- NOTE | 2021-08-28 19:52 | DI.RAD_ITS ---
Exam(s) XR CHEST 2V PA LATERAL EXAM: XR CHEST 2V PA LATERAL CLINICAL HISTORY: possible stroke, r/o acute disease TECHNIQUE: 2D digital imaging was performed of the chest. Two images were obtained. PA and lateral views were obtained. COMPARISON: CR,XR XR CHEST 2V PA LATERAL from 09/27/2020 FINDINGS: MEDIASTINUM: Normal. HEART: Mild cardiomegaly. There is an aortic valve replacement. PULMONARY VASCULATURE: Normal. LUNGS: Clear. PLEURAL SPACE: No pleural effusion or pneumothorax. BONE:Within normal limits for the patient's age. Sternal wires are in place. OTHER FINDINGS:Normal. IMPRESSION: No acute pulmonary findings. DATA REPOSITORY: RADIATION DOSE DELIVERED:
[2021-08-28 20:16] LABS: Abs Immature Grans 0.05 10^3/uL (0.0-0.06); Absolute Basophil Count 0.11 10^3/uL (0.0-0.2); Absolute Eosinophil Count 0.24 10^3/uL (0.0-0.7); Absolute Monocyte Count 0.68 10^3/uL (0.1-0.8); Absolute Neutrophil Count 8.07 10^3/uL (1.2-6.7); Basophils % 1.1; Eosinophils % 2.3; HCT 32.2 % (40.0-50.0); HGB 9.8 g/dL (13.5-17.5); Immature Grans % 0.5; Lymphocytes % 10.7; MCH 24.8 pg (27.0-33.0); MCHC 30.4 % (32.0-36.0); MCV 82 fL (80-95); MPV 9.6 fL (8.0-11.0); Monocytes % 6.6; Neutrophils % 78.8; Platelet Count 420 10^3/uL (130-400); RBC 3.95 10^6/uL (4.36-5.78); RDW 15.1 % (11.8-14.1); RDW-SD 45.3 fL; WBC 10.25 10^3/uL (4.4-10.8)
[2021-08-28 20:22] LABS: Source Nasal/Nares
[2021-08-28 20:30] LABS: PTT Activated 23.1 sec (21.0-27.5); Prothrombin Time 10.4 sec (9.3-11.0)
--- NOTE | 2021-08-28 20:38 | DI.VRAD_ITS ---
PROCEDURE INFORMATION: Exam: CT Head Without Contrast Exam date and time: 08/28/2021 8:14 PM Age: 55 years old Clinical indication: Stroke-like symptoms; Speech disturbance; Additional info: R/O CVA TECHNIQUE: Imaging protocol: Computed tomography of the head without contrast. Other technique: STROKE PROTOCOL was implemented. COMPARISON: CT HEAD WO 09/27/2020 5:59 PM FINDINGS: Brain: Stable chronic left frontal lobe and left parietal lobe encephalomalacia. Age related brain involution is present. No acute intracranial hemorrhage, mass effect, midline shift, or brain herniation. Diffuse subcortical and periventricular white matter hypodensities are most in favor with chronic small vessel disease. Cerebral ventricles: There is ex vacuo ventriculomegaly. Paranasal sinuses: There is fluid within the sinuses, consistent with sinusitis. Mastoid air cells: Visualized mastoid air cells are well aerated. Bones/joints: Unremarkable. No acute fracture. Soft tissues: Unremarkable. IMPRESSION: No acute intracranial pathology. ASSESSMENT: ASPECTS (Lo Stroke Program Early CT Score) is 10. Dictated and Authenticated by: Shlomo Alvarez MD. Ordering:PAKO Kelly MD
--- NOTE | 2021-08-28 20:41 | DI.VRAD_ITS ---
PROCEDURE INFORMATION: Exam: XR Chest Exam date and time: 08/28/2021 8:26 PM Age: 55 years old Clinical indication: Other: Possible stroke, R/O acute disease; Additional info: R/O CVA TECHNIQUE: Imaging protocol: Radiologic exam of the chest. Views: 2 views. COMPARISON: CR XR CHEST 2V PA LATERAL 09/27/2020 6:02 PM FINDINGS: Tubes, catheters and devices: There are sternal wires consistent with previous sternotomy incision. Airway: Patent Lungs: Unremarkable. No consolidation. Pleural spaces: Unremarkable. No pleural effusion. No pneumothorax. Heart/Mediastinum: The heart is mildly enlarged. Prior aortic valve replacement. Bones/joints: No acute skeletal abnormality or aggressive osseous lesion. IMPRESSION: No acute thoracic pathology. Dictated and Authenticated by: Shlomo Alvarez MD. Ordering:PAKO Kelly MD
--- NOTE | 2021-08-28 20:43 | DI.VRAD_ITS ---
PROCEDURE INFORMATION: Exam: XR Left Foot Exam date and time: 08/28/2021 8:31 PM Age: 55 years old Clinical indication: Other: Stubbed L great toe, R/O FX; Additional info: R/O CVA TECHNIQUE: Imaging protocol: Radiologic exam of the Left foot. Views: 3 or more views. COMPARISON: MR LOWER EXTREMITY LT WO/W 05/15/2019 9:28 AM FINDINGS: Bones/joints: Small plantar calcaneal spur. Mild osteoarthritis at the 1st metatarsophalangeal joint. There is no evidence of acutely displaced skeletal fractures. There is no evidence of joint dislocation. No aggressive osseous lesions. Soft tissues: There is soft tissue swelling. IMPRESSION: No acute skeletal pathology. Dictated and Authenticated by: Shlomo Alvarez MD. Ordering:PAKO Kelly MD
[2021-08-28 20:44] LABS: ALT 13 U/L (16-63); AST 11 U/L (15-37); Albumin 3.4 g/dL (3.4-5.0); Alkaline Phosphatase 67 U/L (46-116); Anion Gap 9.8 mmol/L (3-11); BUN 18 mg/dL (7-18); Bilirubin, Total 0.2 mg/dL (0.2-1.0); CO2 26.2 mmol/L (21.0-32.0); CREATININE 1.8 mg/dL (0.70-1.30); Calcium 8.9 mg/dL (8.5-10.1); Chloride 104 mmol/L (98-107); ETHANOL BLOOD < 3.0 mg/dL (<10); Estimated GFR 39.37 (mL/min/1.73m2); Glucose 140 mg/dL (74-106); Lipase 49 U/L (73-393); Magnesium 1.7 mg/dL (1.8-2.4); Potassium 4.1 mmol/L (3.5-5.1); Sodium 140 mmol/L (136-145); Troponin I < 50 ng/L (<or=60)
[2021-08-28] MEDS: Normal Saline 500 ML IV (20:44)
[2021-08-28 21:24] LABS: COVID-19 PCR Negative (Negative)
[2021-08-28 22:09] LABS: Bilirubin Negative (Negative); Blood Negative (Negative); Clarity Clear (Clear); Glucose 100 mg/dL (Negative); Ketones Negative (Negative); Leukocyte Esterase Negative (Negative); Nitrite Negative (Negative); Specific Gravity >= 1.030 (1.005-1.025); Urobilinogen 0.2 EU/dL (Up TO 0.2)
[2021-08-28 22:12] LABS: Bacteria Negative HPF (Negative); C & S Indicated? No; Casts Negative LPF (Negative); Crystals Negative HPF (Negative); Epithelial Cells Negative HPF (Negative); Mucus Negative (Negative); RBC Negative HPF (0-2); WBC Negative HPF (0-5)
[2021-08-28 22:21] LABS: *AMPHETAMINES SCREEN URINE Negative (Negative); *BARBITURATES SCREEN URINE Negative (Negative); *BENZODIAZEPINES SCREEN URINE Negative (Negative); Cannabinoids THC Positive (Negative); Cocaine Screen,Urine Positive (Negative); METHADONE URINE SCREEN Negative (Negative); OPIATES URINE SCREEN Positive (Negative)
[2021-08-28 22:23] LABS: Tricyclic Antidepressants Negative (Negative)
== END 2021-08-28 21:57 | disposition home or self-care (01) ==
PROVIDERS: Physician Assistant; Emergency Provider Emergency Medicine; PCP Nurse Practitioner Family
DX: R53.1 Weakness (principal); R47.81 Slurred speech; S99.822A Other specified injuries of left foot, initial encounter; W22.03XA Walked into furniture, initial encounter; H53.8 Other visual disturbances; R20.0 Anesthesia of skin; K14.8 Other diseases of tongue
CPT/HCPCS: 80053; 80307; 83690; 87635; 93005; 96360; 99284; 99285; 70450; 71046; 73630; 80320; 81003; 81015; 83735; 84484; 85025; 85610; 85730; 93010

== ENCOUNTER → 2021-09-10 01:30 | Outpatient (CLI) | payer MEDICAID, SELFPAY ==
--- NOTE | 2021-09-10 | DI.US_ITS ---
Exam(s) US LOWER EXTREMITY VENOUS LT EXAM: US LOWER EXTREMITY VENOUS LT CLINICAL HISTORY: LT CALF PAIN, M79.662. TECHNIQUE: Lower extremity venous ultrasound performed using grayscale, color-flow, and spectral Do ppler analysis. COMPARISON: No exams were available for comparison FINDINGS: The common femoral, femoral and popliteal veins demonstrate normal compressibility, augmentation, and color Doppler. The posterior tibial veins are patent. No saphenous vein thrombosis or other superfi cial venous thrombosis is seen. No hematoma or Carter's cyst is seen. Edema is noted in the lower le g. IMPRESSION: Lower leg edema.. No evidence of DVT. DATA REPOSITORY:
== END ==
PROVIDERS: PCP Nurse Practitioner Family; Visit Provider Nurse Practitioner Family
DX: M79.662 Pain in left lower leg (principal); R60.0 Localized edema
CPT/HCPCS: 93971

== ENCOUNTER 2022-01-31 12:12 | Outpatient (REF) | payer MEDICAID, SELFPAY ==
[2022-01-31 15:08] LABS: Anion Gap 8.6 mmol/L (3-11); BUN 14 mg/dL (7-18); CO2 28.4 mmol/L (21.0-32.0); CREATININE 1.2 mg/dL (0.70-1.30); Calcium 8.8 mg/dL (8.5-10.1); Chloride 102 mmol/L (98-107); Estimated GFR 70.98 (mL/min/1.73m2); Glucose 141 mg/dL (74-106); Potassium 4.5 mmol/L (3.5-5.1); Sodium 139 mmol/L (136-145)
== END 2022-01-31 12:13 | disposition home or self-care (01) ==
LOC: NCHCN 12:12
PROVIDERS: PCP Nurse Practitioner Family; Visit Provider Nurse Practitioner Family
DX: I10 Essential (primary) hypertension (principal)
CPT/HCPCS: 80048

== ENCOUNTER 2022-03-01 15:08 | Outpatient (REF) | payer MEDICAID, SELFPAY | END 2022-03-01 15:09 | disposition home or self-care (01) | LOC: NCHCN 15:08 | PROVIDERS: PCP Nurse Practitioner Family; Visit Provider Nurse Practitioner Family | DX: I87.8 Other specified disorders of veins (principal); R60.0 Localized edema; F19.21 Other psychoactive substance dependence, in remission; L03.90 Cellulitis, unspecified; Z51.81 Encounter for therapeutic drug level monitoring | CPT/HCPCS: 80348 ==

== ENCOUNTER 2022-06-13 00:57 | Outpatient (CLI) | payer MEDICAID, SELFPAY ==
--- NOTE | 2022-06-13 08:26 | DI.CTLCSR_ITS ---
Exam(s) CT CHEST LUNG CANCER SCREEN EXAM: CT CHEST LUNG CANCER SCREEN CLINICAL HISTORY: TOBACCO ABUSE F17.210 COPD J44.9 NODULE J98.4 SCREENING FOR LUNG CANCER TECHNIQUE: Imaging Protocol: Axial computed tomography images with coronal and sagittal reformatted images were created and reviewed COMPARISON: CT CT CHEST PE CTA from 08/03/[address] THORAX ABD/PEL CTA from 09/24/2020 FINDINGS: Tracheobronchial tree: Patent where visualized. Pulmonary parenchyma: There is an infiltrate seen in the posterior aspect of the left lower lobe. Th ere is a smaller area of infiltrate seen in this same region in September 2020. The lungs are otherwise clear. No architectural distortion. Lung Nodules: No new pulmonary nodules Mediastinum and Ofelia: No dominant adenopathy or fluid collection. The esophagus is unremarkable. Thyroid gland: Unremarkable. Lymph nodes: Unremarkable. Pleura: No effusion or pneumothorax. Heart: The heart is not dilated. Mild to moderate coronary artery calcification is present. There is an aortic valve replacement. No pericardial effusion. Aorta: Thoracic aorta non-dilated.Atherosclerosis is present. Upper abdomen: There are multiple calcifications seen in the liver and spleen suggesting prior granu lomatous disease. Soft Tissues: Unremarkable. Bones: Within normal limits. Sternal wires are in place. IMPRESSION: 1. No new pulmonary nodules. 2. Infiltrate seen in the left lower lobe. This area is larger compared to the prior examination fro m 09/24/2020. This may represent a superimposed new infiltrate/atelectasis or worsening parenchymal sc arring. The area measures 2.2 x 0.8 cm. Lung RADS Cat 4B - Suspicious: Findings for which additional diagnostic testing and/or tissue samplin g is recommended Lung-RADS 1.0 CATEGORIES: Category 0 - Prior chest CT exam(s) being located for comparison. Category 1 - Annual screening in 12 months. No nodules or definitely benign nodules. Category 2 - Annual screening in 12 months. Benign appearance. Nodules with low likelihood of becomin g active cancer. Category 3 - 6-month follow-up. Probably benign. Short-term follow-up suggested. Nodules with low lik elihood of becoming active cancer. Category 4A - 3-month follow-up and CT/PET if >8 mm in size. Suspicious finding. Findings which requi re additional testing. Category 4B - Findings which require additional testing and tissue sampling. Suspicious finding. Category 4X - Category 3 or 4 nodules with additional features or imaging findings that increases the suspicion of malignancy. Modifier S- Potentially clinically significant finding. (Non lung cancer) RADIATION DOSE DELIVERED: 94.7mGy.cm Total DLP 94.7mGy.cmTotal DLP DATA REPOSITORY: All CT scans at this facility are submitted to the National Radiology Data Registry (NRDR) Dose Index Registry (DIR) with the [employer] (ACR). RADIATION OPTIMIZATION: All CT scans at this facility use at least one of these dose optimization te chniques: automated exposure control; mA and/or kV adjustment per patient size (includes targeted exa ms where dose is matched to clinical indication); or iterative reconstruction.
--- NOTE | 2022-06-13 08:55 | DI.US_ITS ---
Exam(s) US ABDOMEN EXAM: US ABDOMEN CLINICAL HISTORY: HEP C B19.20 TECHNIQUE: Ultrasound abdomen performed using standard protocol. COMPARISON: US ABDOMEN ULTRASOUND (P) from 02/09/2015 US Cardiac from 08/07/[address] CHEST/ABD/PEL W from 03/25/2020 FINDINGS: ABDOMINAL AORTA AND IVC: Visualized portions normal caliber. PANCREAS: Normal where visualized. LIVER: Normal. Hepatopedal flow in the Portal Vein. Calcified granuloma are seen in the liver charact erized by echogenic foci. The liver measures 18.8 cm long. GALLBLADDER:No evidence of cholelithiasis. The gallbladder appears contracted. The gallbladder wall measures 6-7 mm in thickness. No pericholecystic fluid identified. BILIARY SYSTEM: Common bile duct measures < 7 mm. No intrahepatic biliary ductal dilation. DALY'S SIGN: Negative. KIDNEYS: Kidneys are symmetric in size. No evidence of renal calculi. No evidence of hydronephrosis. There is a 3.3 x 2.6 x 2.7 cm isoechoic nodular area in the midpole of the right kidney. This may re present the normal renal cortex but a mass cannot be entirely excluded. SPLEEN: Calcified granuloma are seen characterized by multiple echogenic foci in the spleen. ASCITES: None seen. IMPRESSION: 1. No evidence of a hepatic mass is seen sonographically. The liver is mildly enlarged. 2. Findings of calcified granulomatous disease in the liver and spleen. 3. 3.3 cm mass versus prominent normal renal cortex in the right kidney. CT scan of the abdomen with out and with contrast is recommended for further evaluation. 4. Gallbladder wall measures 6-7 mm in thickness. This may be due to gallbladder contraction. No st ones, sludge or pericholecystic fluid is seen. There is no biliary ductal dilatation. Unexpected findings DATA REPOSITORY:
== END 2022-06-13 01:17 ==
LOC: DI 00:57
PROVIDERS: PCP Nurse Practitioner Family; Visit Provider Nurse Practitioner Family
DX: B19.20 Unspecified viral hepatitis C without hepatic coma (principal)
CPT/HCPCS: 71271; 76700

== ENCOUNTER 2022-07-08 00:32 | Outpatient (CLI) | payer MEDICAID, SELFPAY ==
[2022-07-08 14:15] LABS: CREATININE 1.4 mg/dL (0.70-1.30); Estimated GFR 58.99 (mL/min/1.73m2)
--- NOTE | 2022-07-08 14:30 | DI.CT_ITS ---
Exam(s) CT ABDOMEN WO/W EXAM: CT ABDOMEN WO/W CLINICAL HISTORY: RENAL MASS, N28.89 TECHNIQUE: Imaging Protocol: Axial computed tomography images with coronal and sagittal reformatted images were created and reviewed CONTRAST MATERIAL: Intravenous: Omnipaque 350 contrast volume:100 mL Oral: None COMPARISON: CT CT THORAX ABD/PEL CTA from 09/24/2020 US US ABDOMEN from 06/13/[address] CHEST LUNG CANCER SCREEN from 06/13/2022 FINDINGS: ABDOMEN: Lung Bases: Stable peripheral area of consolidation in the left lung. Liver: There calcified granuloma seen in the spleen and liver. There are small hepatic cysts. No gunter spicious hepatic masses are seen. Portal, Superior Mesenteric, and Splenic Veins: Unremarkable. Gallbladder and Biliary Tract: No radiodense calculus or dilation. Pancreas: Normal density, no abnormal calcifications or inflammatory process. Spleen: Splenic granuloma are present. Adrenals: No masses seen. Kidneys: Normal size, contour and axis. No radiodense stones or obstructive uropathy. No masses seen. The area of concern on this ultrasound represents normal fibroglandular tissue. Abdominal Aorta: Abdominal portion non-dilated. Atherosclerosis is present. Bowel: No obstruction or bowel wall thickening. The distal aspect of the retrocecal appendix is unrem arkable. Peritoneal Cavity: No ascites, collection or mesenteric inflammatory response. No free air. Lymph Nodes: Within normal limits. Bones: No aggressive osseous lesions are present. Age-related degenerative changes are seen. Soft Tissues: Unremarkable. IMPRESSION: 1. There is no evidence of a right renal mass. The area seen on the ultrasound from 06/13/2022 repres ent normal fibroglandular tissue. 2. Stable peripheral area of consolidation in the left lower lobe. This area should be further evalu ated in 3-6 months to document resolution. 3. Findings of prior granulomatous disease. RADIATION DOSE DELIVERED: 1,642.54mGy.cm Total DLP DATA REPOSITORY: All CT scans at this facility are submitted to the National Radiology Data Registry (NRDR) Dose Index Registry (DIR) with the [employer] (ACR). RADIATION OPTIMIZATION: All CT scans at this facility use at least one of these dose optimization te chniques: automated exposure control; mA and/or kV adjustment per patient size (includes targeted exa ms where dose is matched to clinical indication); or iterative reconstruction.
[2022-07-08] MEDS: Omnipaque 350 MG/ML 100 ML BTL IJ (14:56)
[2022-07-08] MEDS: Normal Saline - Diluent 50 ML VIAL IJ (14:57)
[2022-07-08] MEDS: Normal Saline Flush 10 ML SYR IVP (14:58)
== END 2022-07-08 00:52 ==
LOC: DI 00:32
PROVIDERS: PCP Nurse Practitioner Family; Visit Provider Nurse Practitioner Family
DX: N28.89 Other specified disorders of kidney and ureter (principal)
CPT/HCPCS: 74170; 82565; J3490

== ENCOUNTER 2023-02-23 19:30 | Emergency (ER) | payer MEDICAID, SELFPAY ==
[2023-02-23] VITALS (36 sets, daily range): BP systolic 163–218; BP diastolic 83–115; PULSE 45–92; RESP 12–30; TEMP 36.2; O2SAT 87–99
--- NOTE | 2023-02-23 19:15 | RT.EKG_ITS ---
APPROVED REPORT Exam: Resting ECG Reason for Exam: weakness, hypertension Patient Location: E HR:62 bpm ECG Measurements Heart Rate 62 AXIS WV 183 P 54 QRSd 118 QRS 34 QT 438 T 90 QTc 446 Conclusion Sinus rhythm...normal P axis, V-rate 60- 99 Probable left atrial enlargement...P >50mS, <-0.10mV V1 Incomplete right bundle branch block...QRSd >112, terminal axis(90,270) Inferior infarct, old...Q >35mS, II III aVF Nonspecific T abnormalities, lateral leads...T <-0.10mV, I aVL V5 V6 sinus rhtyhm, normal axis, partial RBBB, non ischemic
--- NOTE | 2023-02-23 19:30 | DI.RAD_ITS ---
Exam(s) XR CHEST 2V PA LATERAL EXAM: XR CHEST 2V PA LATERAL CLINICAL HISTORY: ams cough fatigue TECHNIQUE: 2D digital imaging was performed. COMPARISON: CT CT CHEST LUNG CANCER SCREEN from 06/13/2022 FINDINGS: HEART: Normal size. Aorta: Mildly dilated. Aortic valve prosthesis. PULMONARY VASCULATURE: Normal. LUNGS: Clear. PLEURAL SPACE: No pleural effusion or pneumothorax. BONE:Sternal wires. Soft tissues: Unremarkable. IMPRESSION: No acute abnormality. DATA REPOSITORY: RADIATION DOSE DELIVERED:
--- NOTE | 2023-02-23 19:30 | DI.CT_ITS ---
Exam(s) CT HEAD WO EXAM: CT HEAD WO CLINICAL HISTORY: fatigue, ams, hx of stroke 2019. TECHNIQUE: Imaging Protocol: Axial computed tomography images with coronal and sagittal reformatted images were created and reviewed COMPARISON: CT CT HEAD WO from 08/28/2021 FINDINGS: Ventricles and Extra axial spaces: Normal in size and morphology for the patient's age. Hemorrhage: None. Cerebral parenchyma: Old left frontal and parietal infarcts. No evidence of acute infarct or mass. Mild white matter changes of small vessel disease. Midline shift: None. Brainstem/Cerebellum: Normal. Calvarium: Normal. Visualized Paranasal sinuses/Mastoids: Opacification of some ethmoid sinuses. Partial opacification of the frontal sinuses. No air-fluid levels. Maxillary sinus mild mucosal thickening. Mastoids karen ar. Soft Tissues: Unremarkable. IMPRESSION: Old left frontal and parietal infarcts. No acute intracranial process. Chronic sinus disease. RADIATION DOSE DELIVERED: !Error Total DLP DATA REPOSITORY: All CT scans at this facility are submitted to the National Radiology Data Registry (NRDR) Dose Index Registry (DIR) with the [employer] (ACR). RADIATION OPTIMIZATION: All CT scans at this facility use at least one of these dose optimization te chniques: automated exposure control; mA and/or kV adjustment per patient size (includes targeted exa ms where dose is matched to clinical indication); or iterative reconstruction.
[2023-02-23 19:52] LABS: Abs Immature Grans 0.02 10^3/uL (0.0-0.06); Absolute Basophil Count 0.05 10^3/uL (0.0-0.2); Absolute Eosinophil Count 0.19 10^3/uL (0.0-0.7); Absolute Lymphocyte Count 1.72 10^3/uL (1.2-3.4); Absolute Monocyte Count 0.45 10^3/uL (0.1-0.8); Absolute Neutrophil Count 4.61 10^3/uL (1.2-6.7); Basophils % 0.7; Eosinophils % 2.7; HCT 47.8 % (40.0-50.0); HGB 14.7 g/dL (13.5-17.5); Immature Grans % 0.3; Lymphocytes % 24.4; MCH 24.4 pg (27.0-33.0); MCHC 30.8 % (32.0-36.0); MCV 79 fL (80-95); MPV 9.3 fL (8.0-11.0); Monocytes % 6.4; Neutrophils % 65.5; Platelet Count 336 10^3/uL (130-400); RBC 6.03 10^6/uL (4.36-5.78); RDW 17.4 % (11.8-14.1); RDW-SD 49.2 fL; WBC 7.04 10^3/uL (4.4-10.8)
--- NOTE | 2023-02-23 19:52 | ED.GENADUL_ITS ---
HPI General Stated Complaint: CVA/TIA LILLIAN: 2 Date/Time Provider Initiated Documentation: 02/23/23 19:35. HPI Narrative: 57-year-old male history of CVA, chronic right-sided deficits, COPD presents referred in by registered veterinary technician for not acting appropriately history and physical limited by collateral information and patient interaction. Related Data Home Medications Medication Instructions Recorded Confirmed furosemide 40 mg tablet (Lasix) 40 mg PO DAILY 02/15/19 08/28/21 esomeprazole magnesium 40 mg 40 mg PO DAILY 05/05/20 08/28/21 capsule,delayed release (Nexium) lisinopril 20 mg tablet 40 mg PO DAILY 05/05/20 08/28/21 aspirin 81 mg tablet 81 mg PO DAILY 08/03/20 08/28/21 duloxetine 30 mg capsule,delayed 30 mg PO BID 08/03/20 08/28/21 release pravastatin 10 mg tablet 10 mg PO HS 08/03/20 08/28/21 acetaminophen 325 mg tablet 1,000 mg PO Q6H PRN 09/27/20 08/28/21 (Tylenol) ferrous gluconate 324 mg (38 mg 324 mg PO DAILY 09/27/20 08/28/21 iron) tablet nicotine 7 mg/24 hr daily 1 patch transdermal DIRECTED 09/27/20 08/28/21 transdermal patch umeclidinium 62.5 mcg-vilanterol 1 ea inhalation DAILY 09/27/20 08/28/21 25 mcg/actuation powdr for inhalation (Anoro Ellipta) buprenorphine 4 mg-naloxone 1 mg 1 film sublingual DAILY 09/28/20 08/28/21 sublingual film (Suboxone) albuterol sulfate 90 mcg/actuation 2 inh inhalation Q6H PRN 04/12/22 aerosol inhaler diltiazem HCl 120 mg 120 mg PO DAILY 04/12/22 capsule,extended release 24 hr dulaglutide 4.5 mg/0.5 mL 4.5 mg subcut QWEEK 04/12/22 subcutaneous pen injector (Trulicity) gabapentin 300 mg capsule 600 mg PO TID 04/12/22 Allergies Allergy/AdvReac Type Severity Reaction Status Date / Time Penicillins AdvReac Severe Vomiting Verified 08/04/21 15:50 hydrocodone AdvReac Intermediate vomiting Verified 08/04/21 15:50 Review of Systems Narrative: Review of Systems Constitutional: Fever Eyes: negative ENT: negative Cardiovascular: negative Respiratory: Cough Gastrointestinal: negative : negative Musculoskeletal: negative Skin: negative Neurologic: AMS Psych: negative PFSH All Active Problems (Updated 02/23/23 @ 20:39 by Jamin Sorensen MD) COVID (Acute) Obstructive sleep apnea (Chronic) COPD (chronic obstructive pulmonary disease) (Chronic) Anxiety (Chronic) Leg wound, left (Acute) Medical non-compliance (Acute) Cocaine abuse (Chronic) Hypertensive urgency (Acute) Dysphagia (Acute) Dyspnea (Acute) S/P endoscopy (Acute) Hypertensive emergency (Acute) Dyspepsia (Acute) Discharge planning issues (Acute) DVT (deep venous thrombosis) (Chronic) Pneumonia (Acute) Aragon esophagus (Acute) Diabetic neuropathy (Acute) Traumatic hematoma of right upper arm (Acute) Likely due to trauma sustained in the ambulance Anemia due to acute blood loss (Acute) Symptomatic anemia (Acute) 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) (Acute) Opiate dependence (Chronic) managed on suboxone Hypertension (Chronic) Discharge planning issues (Acute) Aortic insufficiency (Acute) s/p valve replacement Diabetes mellitus (Chronic) Acute anemia (Acute) Medical History 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 GERD (gastroesophageal reflux disease) GI bleed Hepatitis C Hypomagnesemia MSSA (methicillin susceptible Staphylococcus aureus) septicemia Obstructive sleep apnea Osteomyelitis of left fibula Right rotator cuff tear Smoker Tinea corporis Surgical History H/O aortic valve replacement Pericardial aortic valve at [facility] - 08/21/2018 - Magna Ease 25 mm History of ankle surgery S/P hardware removal L ankle. S/P percutaneous endoscopic gastrostomy (PEG) tube placement S/P spinal surgery Family History Father No problems noted. Mother COPD (chronic obstructive pulmonary disease) Hypertension Diabetes Heart disease Sister Stroke Social History Smoking/Tobacco Use Status: Current every day Tobacco Type: cigarettes Smoking risk assessment performed?: Yes Alcohol Intake: never Drug use: Daily Substance use type: marijuana Caregiver/Support person: Yes Household members: friend(s) Number of Children: 0 number of grandchildren: 1 current occupation: Disabled Pets and animals: Yes Pets and animals: cat(s) Current gender identity: male What type of physical activity do you participate in: none Do you feel safe at home: Yes Do you feel safe in your relationship?: Yes Additional Social history: Lives with ex- Vanessa. Exam Narrative Exam Narrative: Physical Examination General: alert, awake, cooperative, resting comfortably, no acute distress HEENT: normocephalic, atraumatic; PERRL, EOM intact, conjunctiva normal; no nasal discharge; dry oral mucosa Neck: supple, trachea midline; full ROM Chest: normal to inspection Respiratory: normal respiratory effort, speaking in full sentences, rhonchorous breath sounds Cardiac: regular rate, regular rhythm, S1S2 intact, no murmurs rubs or gallops GI: abdomen soft, non-tender, non-distended; no palpable mass or hepa tosplenomegaly Skin: Chronic venous stasis changes bilateral lower extremity Neuro: Interactive following commands, chronic deficits right upper and right lower extremities, full strength left upper and left lower extremities Extremities: Chronic venous stasis changes bilateral lower extremities Psych: Appropriate mood and affect Course Vital Signs Vital signs: Vital Signs Pulse 68 02/23/23 19:31 Respiratory Rate 14 02/23/23 19:31 Blood Pressure 215/96 H 02/23/23 19:31 Pulse Oximetry 98 02/23/23 19:31 Pulse 68 02/23/23 19:31 Respiratory Rate 16 02/23/23 19:36 Respiratory Effort Normal 02/23/23 19:36 Respiratory Depth Normal 02/23/23 19:36 Respiratory Pattern Normal 02/23/23 19:36 Blood Pressure 215/96 H 02/23/23 19:31 Blood Pressure Position Sitting 02/23/23 19:31 Pulse Oximetry 98 02/23/23 19:31 Oxygen Delivery Method Room Air 02/23/23 19:31 Oxygen Flow Rate 0 02/23/23 19:31 Pain Level 0 02/23/23 19:31 Medical Decision Making 57-year-old male history of CVA with right-sided deficits, COPD, presents with altered mental status, noted to have rhonchorous breath sounds, alert following commands; hypertensive in arrival, saturating 98% on room air. Consider viral illness such as COVID versus influenza versus pneumonia versus aspiration versus electrolyte derangement versus CHF versus pneumonia versus pleural effusion versus less likely ACS or aortic pathology. Low suspicion for CVA given history and physical. Will obtain basic labs x-ray CT head EKG close reassessment of symptoms. Trial of nebs and steroid given lung sounds on arrival history of COPD. 20: 38 patient resting comfortably no acute distress. Patient is COVID- positive. Labs and imaging unremarkable. Alert following commands Quality:SDOH Health Related Social Needs: No Data to Display Discharge Plan Disposition Patient Disposition: Home Condition: Improving Discharge Details Chief Complaint: CVA/TIA Clinical Impression: COVID Primary Care Provider: Lexii Luna ED Provider: Jamin Sorensen Home Meds and New Rx's Prescriptions: No Action lisinopril 20 mg tablet 40 mg PO DAILY esomeprazole magnesium [Nexium] 40 mg capsule,delayed release(DR/EC) 40 mg PO DAILY gabapentin 300 mg capsule 600 mg PO TID Trulicity 4.5 mg/0.5 mL pen injector 4.5 mg subcut QWEEK diltiazem HCl 120 mg capsule,extended release 24hr 120 mg PO DAILY albuterol sulfate 90 mcg/actuation HFA aerosol inhaler 2 inh inhalation Q6H PRN aspirin 81 mg Tablet 81 mg PO DAILY duloxetine 30 mg Capsule,Delayed Release(Dr/Ec) 30 mg PO BID pravastatin 10 mg Tablet 10 mg PO HS acetaminophen [Tylenol] 325 mg tablet 1,000 mg PO Q6H PRN Anoro Ellipta 62.5-25 mcg/actuation blister with device 1 ea INHALATION DAILY Patient Comments: INHALE ONE PUFF BY MOUTH EVERY DAY nicotine 7 mg/24 hr patch 24 hour 1 patch transdermal DIRECTED Patient Comments: APPLY TO HAIRLESS SKIN DAILY ROTATE SKIN SITES ferrous gluconate 324 mg (38 mg iron) tablet 324 mg PO DAILY Patient Comments: takes daily buprenorphine-naloxone [Suboxone] 4-1 mg film 1 film sublingual DAILY Patient Comments: PLACE ONE FILM UNDER THE TONGUE EVERY DAY furosemide [Lasix] 40 mg Tablet 40 mg PO DAILY Discharge Instructions Instructions: COVID-19 (Coronavirus Disease 2019) (ED) Additional Instructions: Please follow with primary care physician. Return to the emergency department for any worsening symptoms.
[2023-02-23 20:06] LABS: PTT Activated 26.5 sec (23.6-32.8); Prothrombin Time 10.3 sec (9.1-11.1)
[2023-02-23 20:17] LABS: ALT 13 U/L (16-63); AST 14 U/L (15-37); Albumin 3.5 g/dL (3.4-5.0); Alkaline Phosphatase 73 U/L (46-116); Anion Gap 10.1 mmol/L (3-11); BUN 14 mg/dL (7-18); Bilirubin, Total 0.4 mg/dL (0.2-1.0); CO2 27.9 mmol/L (21.0-32.0); CREATININE 1.4 mg/dL (0.70-1.30); Calcium 9.5 mg/dL (8.5-10.1); Chloride 100 mmol/L (98-107); Estimated GFR 58.62 (mL/min/1.73m2); Glucose 193 mg/dL (74-106); Lipase 91 U/L (16-77); Potassium 3.9 mmol/L (3.5-5.1); Sodium 138 mmol/L (136-145); Total Protein 8.3 g/dL (6.4-8.2)
[2023-02-23 20:18] LABS: ETHANOL BLOOD < 3.0 mg/dL (<10)
[2023-02-23 20:19] LABS: Polychromasia Present
[2023-02-23] MEDS: Albuterol/Ipratropium 3 ML UPD VIAL 9 ML UPD (20:23)
[2023-02-23] MEDS: Dexamethasone 10 MG/ML VIAL IVP (20:24)
[2023-02-23] MEDS: Normal Saline 1,000 ML 250 ML IV (20:24)
--- NOTE | 2023-02-23 20:27 | DI.VRAD_ITS ---
PROCEDURE INFORMATION: Exam: CT Head Without Contrast Exam date and time: 02/23/2023 8:00 PM Age: 57 years old Clinical indication: Altered mental status/memory loss and other: Fatigue; Additional info: Fatigue, AMS, h/o stroke 2019 TECHNIQUE: Imaging protocol: Computed tomography of the head without contrast. COMPARISON: CT HEAD WO 08/28/2021 8:14 PM FINDINGS: Brain: Cerebral volume loss noted. Scattered areas of decreased attenuation in the deep periventricular white matter consistent with small vessel ischemic change. No evidence for acute intracranial hemorrhage. Cerebral ventricles: No ventriculomegaly. Paranasal sinuses: See Bones/joints finding. Mastoid air cells: Visualized mastoid air cells are well aerated. Dental: Odontogenic disease noted. Bones/joints: Mild, bilateral mucoperiosteal thickening present in the maxillary sinuses with moderate ethmoid and mild bilateral frontal sinus involvement. Soft tissues: Unremarkable. IMPRESSION: Senescent changes noted. No acute intracranial abnormality. Dictated and Authenticated by: Kaylee Coy MD. Ordering:MARC Neville MD
--- NOTE | 2023-02-23 20:34 | DI.VRAD_ITS ---
PROCEDURE INFORMATION: Exam: XR Chest Exam date and time: 02/23/2023 8:06 PM Age: 57 years old Clinical indication: Other: Fatigue, AMS, HX of stroke 2019; Prior surgery; Surgery date: 6+ months; Surgery type: Open heart; Additional info: Fatigue, AMS, h/o stroke 2018 TECHNIQUE: Imaging protocol: Radiologic exam of the chest. Views: 2 views. COMPARISON: CT CHEST LUNG CANCER SCREEN 06/13/2022 8:24 AM FINDINGS: Lungs: Unremarkable. No consolidation. Pleural spaces: Unremarkable. No pleural effusion. No pneumothorax. Heart/Mediastinum: Status post aortic valve replacement. Mild cardiomegaly. Bones/joints: Status post median sternotomy. IMPRESSION: Postsurgical changes. No evidence for acute abnormality in the chest. Dictated and Authenticated by: Kaylee Coy MD. Ordering:MARC Neville MD
== END 2023-02-23 22:48 | disposition home or self-care (01) ==
PROVIDERS: Emergency Provider Emergency Medicine; PCP Nurse Practitioner Family
DX: U07.1 COVID-19 (principal); J44.9 Chronic obstructive pulmonary disease, unspecified; I69.320 Aphasia following cerebral infarction; I69.351 Hemiplegia and hemiparesis following cerebral infarction affecting right dominant side; E11.40 Type 2 diabetes mellitus with diabetic neuropathy, unspecified; I10 Essential (primary) hypertension; F17.210 Nicotine dependence, cigarettes, uncomplicated; Z79.85 Long-term (current) use of injectable non-insulin antidiabetic drugs; Z95.2 Presence of prosthetic heart valve; Z79.82 Long term (current) use of aspirin; Z93.1 Gastrostomy status
CPT/HCPCS: 80053; 83690; 87426; 93005; 94640; 96361; 96374; 99284; 70450; 71046; 80320; 83735; 85025; 85610; 85730; 93010; J1100; J7620

== ENCOUNTER 2023-03-06 08:05 | Emergency (ER) | payer MEDICAID, SELFPAY ==
[2023-03-06] VITALS (28 sets, daily range): BP systolic 142–194; BP diastolic 68–98; PULSE 43–97; RESP 17–20; TEMP 36.4–36.5; O2SAT 90–100
--- NOTE | 2023-03-06 08:00 | RT.EKG_ITS ---
APPROVED REPORT Exam: Resting ECG Reason for Exam: sob Patient Location: E HR:72 bpm ECG Measurements Heart Rate 72 AXIS GA 175 P 57 QRSd 116 QRS 5 QT 426 T 87 QTc 467 Conclusion Sinus rhythm...normal P axis, V-rate 60- 99 Probable left atrial enlargement...P >50mS, <-0.10mV V1 Incomplete right bundle branch block...QRSd >112, terminal axis(90,270) Inferior infarct, old...Q >35mS, II III aVF sinus rhtyhm, normal axis, partial RBBB, q waves inferior leads
--- NOTE | 2023-03-06 08:14 | W.ED.GENAD ---
HPI General Stated Complaint: SOB LILLIAN: 3 Date/Time Provider Initiated Documentation: 03/06/23 08:13. HPI Narrative: 57 year-old male presents to ED today by EMS with a chief complaint of shortness of breath with onset since having Covid last week- states he hasn't gotten better, getting worse, very fatigued, asking for his daily suboxone SL film. Quality described as short on breath, no radiation to chest pain, abdominal pain, nausea/vomiting/diarrhea, endorses poor PO intake. Severity is described as 9/10. Palliating factors include nothing specific attempted. Provoking factors include Covid-19, states he is vaccinated and boosted. Events leading up to the incident/Associated Symptoms: Patient has history of CAD, COPD, DVT, cerebral septic emboli, endocarditis, hepatitis C, cocaine abuse, CAYDEN, chronic R sided deficits from prior CVA, t2DM, GI bleeding. Patient not anticoagulated- no longer takes Coumadin. Related Data Home Medications Medication Instructions Recorded Confirmed furosemide 40 mg tablet (Lasix) 40 mg PO BID 02/15/19 03/06/23 esomeprazole magnesium 40 mg 40 mg PO DAILY 05/05/20 03/06/23 capsule,delayed release (Nexium) aspirin 81 mg tablet 81 mg PO DAILY 08/03/20 03/06/23 duloxetine 30 mg capsule,delayed 30 mg PO BID 08/03/20 03/06/23 release acetaminophen 325 mg tablet 1,000 mg PO Q6H PRN 09/27/20 03/06/23 (Tylenol) umeclidinium 62.5 mcg-vilanterol 1 ea inhalation DAILY 09/27/20 03/06/23 25 mcg/actuation powdr for inhalation (Anoro Ellipta) buprenorphine 4 mg-naloxone 1 mg 1 film sublingual DAILY 09/28/20 03/06/23 sublingual film (Suboxone) albuterol sulfate 90 mcg/actuation 2 inh inhalation Q6H PRN 04/12/22 03/06/23 aerosol inhaler diltiazem HCl 120 mg 120 mg PO DAILY 04/12/22 03/06/23 capsule,extended release 24 hr dulaglutide 4.5 mg/0.5 mL 4.5 mg subcut QWEEK 04/12/22 03/06/23 subcutaneous pen injector (Trulicity) gabapentin 300 mg capsule 600 mg PO TID 04/12/22 03/06/23 cyanocobalamin (vitamin B-12) 1,000 mcg PO DAILY 03/06/23 03/06/23 1,000 mcg tablet (Vitamin B-12) Allergies Allergy/AdvReac Type Severity Reaction Status Date / Time Penicillins AdvReac Severe Vomiting Verified 03/06/23 08:23 hydrocodone AdvReac Intermediate vomiting Verified 03/06/23 08:23 Review of Systems All systems reviewed & are unremarkable except as noted in HPI and below PFSH All Active Problems (Updated 03/06/23 @ 11:24 by CHIKI Ramey) COVID-19 (Acute) COVID (Acute) Obstructive sleep apnea (Chronic) COPD (chronic obstructive pulmonary disease) (Chronic) Anxiety (Chronic) Leg wound, left (Acute) Medical non-compliance (Acute) Cocaine abuse (Chronic) Hypertensive urgency (Acute) Dysphagia (Acute) Dyspnea (Acute) S/P endoscopy (Acute) Hypertensive emergency (Acute) Dyspepsia (Acute) Discharge planning issues (Acute) DVT (deep venous thrombosis) (Chronic) Pneumonia (Acute) Aragon esophagus (Acute) Diabetic neuropathy (Acute) Traumatic hematoma of right upper arm (Acute) Likely due to trauma sustained in the ambulance Anemia due to acute blood loss (Acute) Symptomatic anemia (Acute) 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) (Acute) Opiate dependence (Chronic) managed on suboxone Hypertension (Chronic) Discharge planning issues (Acute) Aortic insufficiency (Acute) s/p valve replacement Diabetes mellitus (Chronic) Acute anemia (Acute) Medical History Aortic valve endocarditis 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 GERD (gastroesophageal reflux disease) GI bleed Hepatitis C Hypomagnesemia MSSA (methicillin susceptible Staphylococcus aureus) septicemia Obstructive sleep apnea Osteomyelitis of left fibula Right rotator cuff tear Smoker Tinea corporis Surgical History H/O aortic valve replacement Pericardial aortic valve at [facility] [place] - 08/21/2018 - Magna Ease 25 mm History of ankle surgery S/P hardware removal L ankle. S/P percutaneous endoscopic gastrostomy (PEG) tube placement S/P spinal surgery Family History Father No problems noted. Mother COPD (chronic obstructive pulmonary disease) Hypertension Diabetes Heart disease Sister Stroke Social History Smoking/Tobacco Use Status: Current every day Tobacco Type: cigarettes Smoking risk assessment performed?: Yes Alcohol Intake: never Drug use: Daily Substance use type: marijuana Caregiver/Support person: Yes Household members: friend(s) Housing: house Number of Children: 0 number of grandchildren: 1 current occupation: Disabled Pets and animals: Yes Pets and animals: cat(s) Current gender identity: male What type of physical activity do you participate in: none Do you feel safe at home: Yes Do you feel safe in your relationship?: Yes Additional Social history: Lives with ex- Vanessa. Exam Narrative Exam Narrative: GENERAL APPEARANCE: Appears older than age, fatigued, non-toxic, awake and alert but tired, atraumatic, no acute distress. SKIN: Warm, pink, dry, intact, without rashes/lesions/ulcerations. HEAD: Normocephalic, atraumatic, normal hair distribution for gender/age. EYES: Pupils PERRLA, EOMs intact without nystagmus, normal conjunctiva, no exudates on lids/lashes. ENT: Nares patent, no circumoral cyanosis, no facial swelling NECK: Supple, trachea midline, painless cervical ROM. LUNGS/CHEST: Wheezes diffusely, no rales at bases, mildly labored respirations without hypoxia, normal A/P diameter, symmetrical expansion, no chest wall deformity HEART (CV/PV): Regular rate and rhythm without murmur, no peripheral edema, no JVD. ABDOMEN: Soft, non-distended, no guarding, no tenderness. MSK: Normal ROM, no swelling/deformity to bilateral UEs or LEs, moving all extremities without weakness, no cyanosis, spine midline without tenderness, normal curvature. NEURO: Mental Status AAOx4 - alert to person, place, time, events No facial droop, no forehead involvement. Motor: No focal weakness - chronic R sided mild weakness, 4+/5 Sensory: sensation intact to light touch globally. Gait NT. PSYCH: dysthymic, cooperative, pleasant, appropriate speech Course Vital Signs Vital signs: Vital Signs Pulse 81 03/06/23 08:07 Respiratory Rate 20 03/06/23 08:07 Blood Pressure 190/96 H 03/06/23 08:07 Pulse Oximetry 100 03/06/23 08:07 Pulse 81 03/06/23 08:13 Respiratory Rate 20 03/06/23 08:13 Respiratory Effort Short of Breath 03/06/23 08:12 Blood Pressure 190/96 H 03/06/23 08:13 Pulse Oximetry 100 03/06/23 08:13 Oxygen Delivery Method Nasal Cannula 03/06/23 08:13 Oxygen Flow Rate 2 03/06/23 08:13 Pain Level 0 03/06/23 08:13 Medical Decision Making This dictation utilizes [id number] dictation software and may contain unedited grammatical errors. 57 y/o M presents to ED today with a chief complaint of shortness of breath, got Covid-19 last week, many comorbidities. Patient denies chest pain/abdominal pain, denies NVD, endorses SOB and fatigue, but is rousable. Patients' medical history: COPD, CVA, CAD, t2DM, polysubstance abuse, HTN, CAYDEN, hx of Hep C, GI Bleeding. Family and social history: Lives at home with and son, no recent travel. Pertinent exam findings / vital signs include expiratory wheezing, fatigue, nontoxic vitals, benign cardiac exam, benign abdomen, neuro baseline. Differential / pathologies of concern include Covid-19, respiratory failure, PE, Sepsis, Secondary Pneumonia, Electrolyte abnormalities, Viral Syndrome. Diagnostic studies of: -POC Covid/Flu Ag, CBC, CMP, Lactate (reflex to Blood Cx's if needed), Procalcitonin, Lipase, VBG, CK, UA, Magnesium, Trop I, BNP, D-dimer, EKG, imaging decision based on D-dimer > XR Chest 2view. -EKG shows NSR @ 72bpm, normal axis, normal NJ, narrow complex QRS, no ST changes, poor R-wave progression, consistent with prior 02/23/23. Question mild peaked T-waves with patients' history of hyperkalemia. -VBG WNL -Lactate 1.9, hydrating, do not suspect sepsis > rpt lactate after IVF 1.4, dehydration. -Covid/Flu Ag negative -CBC no leukocytosis, mild elev PLTs, chronic/COPD -Trop I / BNP neg, no ACS -Lipase WNL, benign ABD -CMP shows baseline SCr ~1.6 -mild elev of CK, likely in the setting of poor PO hydration -Magnesium WNL -Procalcitonin negative -D-dimer negative -UA shows no nitrites, no leuk esterase, Micro shows [ ]. -CXR shows no acute findings, no secondary bacterial PNA. Interventions of: -1L IVF NS, IV tylenol, IV toradol. Was given 1 DuoNeb by EMS, placed on O2 which was d/c'd on arrival without hypoxia. ED Course/Assessment/Plan: 57-year-old male presents with generalized weakness and shortness of breath without hypoxia in the setting of COVID-19 infection beginning last week, his antigen is negative and I do not believe he is currently contagious, his labs are all reassuring and he displayed no hypoxia here after receiving 1 DuoNeb by EMS en route. He was given IV fluids IV Tylenol and IV Toradol as well as his home dose of Suboxone, chest x-ray is clear, cardiac enzymes negative, no leukocytosis and I do not suspect any secondary bacterial infection at this time. I counseled the patient on the need to stay hydrated and well-nourished at home and perform his at home breathing treatments with albuterol inhaler as needed for shortness of breath. Findings not consistent with acute hypoxemic respiratory failure, sepsis, secondary bacterial pneumonia, profound weakness - patient likely has lingering viral syndrome of Covid-19. Disposition of Covid-19. Patient verbalized understanding of the plan and return to ED criteria and engaged in shared decision making. Medical Records Medical records reviewed: Yes I reviewed the patient's medical records. Imaging Data Radiologic Study: Imaging: X-Ray Radiologist's impression: EXAM: XR CHEST 2V PA LATERAL CLINICAL HISTORY: shortness of breath TECHNIQUE: 2D digital imaging was performed. COMPARISON: CR,XR XR CHEST 2V PA LATERAL from 02/23/2023 FINDINGS: HEART: Normal size. Aorta: Not dilated. PULMONARY VASCULATURE: Normal. LUNGS: Clear. PLEURAL SPACE: No pleural effusion or pneumothorax. BONE:Unremarkable for age. Soft tissues: Unremarkable. IMPRESSION: No acute abnormality. Lab Data Lab results reviewed: Yes I reviewed the patient's lab results. Labs: Laboratory Tests Range/Units 03/06/23 03/06/23 03/06/23 08:43 09:49 10:30 WBC (4.4-10.8) 10^3/uL 8.56 RBC (4.36-5.78) 10^6/uL 5.81 H Hgb (13.5-17.5) g/dL 14.5 Hct (40.0-50.0) % 46.6 MCV (80-95) fL 80 MCH (27.0-33.0) pg 25.0 L MCHC (32.0-36.0) % 31.1 L RDW (11.8-14.1) % 18.6 H Plt Count (130-400) 10^3/uL 418 H MPV (8.0-11.0) fL 9.0 Immature Gran % 0.4 Neutrophils % 75.0 Lymphocytes % 14.3 Monocytes % 8.1 Eosinophils % 1.4 Basophils % 0.8 Nucleated RBC % (0.0-0.3) % 0.0 Absolute Neutrophils (1.2-6.7) 10^3/uL 6.43 Absolute Lymphocytes (1.2-3.4) 10^3/uL 1.22 Absolute Monocytes (0.1-0.8) 10^3/uL 0.69 Absolute Eosinophils (0.0-0.7) 10^3/uL 0.12 Absolute Basophils (0.0-0.2) 10^3/uL 0.07 D-Dimer (<500) ng/mlFEU 413 VBG pH (7.31-7.41) 7.38 VBG pCO2 (41-51) mmHg 46 VBG pO2 mmHg 23 VBG HCO3 (23-28) mmol/L 28 VBG Total CO2 (24-29) mmol/L 25 VBG O2 Saturation % 37 VBG Base Excess (-2-3) mmol/L 3 VBG Lactate (0.6-1.4) mmol/L 1.9 H Sodium (136-145) mmol/L 142 Potassium (3.5-5.1) mmol/L 4.1 Chloride (98-107) mmol/L 104 Carbon Dioxide (21.0-32.0) mmol/L 28.4 Anion Gap (3-11) mmol/L 9.6 BUN (7-18) mg/dL 18 Creatinine (0.70-1.30) mg/dL 1.6 H Est GFR (CKD-EPI 2020) (mL/min/1.73m2) 49.94 Glucose (74-106) mg/dL 139 H Calcium (8.5-10.1) mg/dL 9.8 Magnesium (1.8-2.4) mg/dL 2.2 Total Bilirubin (0.2-1.0) mg/dL 0.5 AST (15-37) U/L 20 ALT (16-63) U/L 16 Alkaline Phosphatase (46-116) U/L 73 Creatine Kinase (39-308) U/L 336 H Troponin I (< or =60) ng/L < 50 NT-Pro-B Natriuret Pep (<300) pg/mL 123 Total Protein (6.4-8.2) g/dL 8.3 H Albumin (3.4-5.0) g/dL 3.7 Lipase (16-77) U/L 48 Procalcitonin ng/mL < 0.1 Urine Color (Yellow) Yellow Urine Clarity (Clear) Clear Urine pH (5-8) 8.5 H Ur Specific [place] (1.005-1.025) 1.015 Urine Protein (Negative) mg/dL 30 H Urine Ketones (Negative) mg/dL Negative Urine Blood (Negative) Negative Urine Nitrite (Negative) Negative Urine Bilirubin (Negative) Negative Urine Urobilinogen (Up to 0.2) mg/dL 0.2 Ur Leukocyte Esterase (Negative) Negative Urine RBC (0-2) HPF 0-2 Urine WBC (0-5) HPF 0-2 Ur Epithelial Cells (Negative) HPF Rare Urine Crystals (Negative) HPF Negative Urine Bacteria (Negative) HPF Negative Urine Casts (Negative) LPF Negative Urine Mucus (Negative) Negative Ur Culture Indicated? No Urine Glucose (Negative) mg/dL Negative Levetiracetam Cancelled Range/Units 03/06/23 11:15 WBC (4.4-10.8) 10^3/uL RBC (4.36-5.78) 10^6/uL Hgb (13.5-17.5) g/dL Hct (40.0-50.0) % MCV (80-95) fL MCH (27.0-33.0) pg MCHC (32.0-36.0) % RDW (11.8-14.1) % Plt Count (130-400) 10^3/uL MPV (8.0-11.0) fL Immature Gran % Neutrophils % Lymphocytes % Monocytes % Eosinophils % Basophils % Nucleated RBC % (0.0-0.3) % Absolute Neutrophils (1.2-6.7) 10^3/uL Absolute Lymphocytes (1.2-3.4) 10^3/uL Absolute Monocytes (0.1-0.8) 10^3/uL Absolute Eosinophils (0.0-0.7) 10^3/uL Absolute Basophils (0.0-0.2) 10^3/uL D-Dimer (<500) ng/mlFEU VBG pH (7.31-7.41) VBG pCO2 (41-51) mmHg VBG pO2 mmHg VBG HCO3 (23-28) mmol/L VBG Total CO2 (24-29) mmol/L VBG O2 Saturation % VBG Base Excess (-2-3) mmol/L VBG Lactate (0.6-1.4) mmol/L 1.4 Sodium (136-145) mmol/L Potassium (3.5-5.1) mmol/L Chloride (98-107) mmol/L Carbon Dioxide (21.0-32.0) mmol/L Anion Gap (3-11) mmol/L BUN (7-18) mg/dL Creatinine (0.70-1.30) mg/dL Est GFR (CKD-EPI 2020) (mL/min/1.73m2) Glucose (74-106) mg/dL Calcium (8.5-10.1) mg/dL Magnesium (1.8-2.4) mg/dL Total Bilirubin (0.2-1.0) mg/dL AST (15-37) U/L ALT (16-63) U/L Alkaline Phosphatase (46-116) U/L Creatine Kinase (39-308) U/L Troponin I (< or =60) ng/L NT-Pro-B Natriuret Pep (<300) pg/mL Total Protein (6.4-8.2) g/dL Albumin (3.4-5.0) g/dL Lipase (16-77) U/L Procalcitonin ng/mL Urine Color (Yellow) Urine Clarity (Clear) Urine pH (5-8) Ur Specific [place] (1.005-1.025) Urine Protein (Negative) mg/dL Urine Ketones (Negative) mg/dL Urine Blood (Negative) Urine Nitrite (Negative) Urine Bilirubin (Negative) Urine Urobilinogen (Up to 0.2) mg/dL Ur Leukocyte Esterase (Negative) Urine RBC (0-2) HPF Urine WBC (0-5) HPF Ur Epithelial Cells (Negative) HPF Urine Crystals (Negative) HPF Urine Bacteria (Negative) HPF Urine Casts (Negative) LPF Urine Mucus (Negative) Ur Culture Indicated? Urine Glucose (Negative) mg/dL Levetiracetam Quality:SDOH Health Related Social Needs: No Data to Display Discharge Plan Disposition Patient Disposition: Home Condition: Stable Discharge Details Clinical Impression: COVID-19 Primary Care Provider: Lexii Luna ED Provider: Rohan Lindquist Home Meds and New Rx's Prescriptions: Continued esomeprazole magnesium [Nexium] 40 mg capsule,delayed release(DR/EC) 40 mg PO DAILY gabapentin 300 mg capsule 600 mg PO TID Trulicity 4.5 mg/0.5 mL pen injector 4.5 mg subcut QWEEK diltiazem HCl 120 mg capsule,extended release 24hr 120 mg PO DAILY albuterol sulfate 90 mcg/actuation HFA aerosol inhaler 2 inh inhalation Q6H PRN aspirin 81 mg Tablet 81 mg PO DAILY duloxetine 30 mg Capsule,Delayed Release(Dr/Ec) 30 mg PO BID acetaminophen [Tylenol] 325 mg tablet 1,000 mg PO Q6H PRN Anoro Ellipta 62.5-25 mcg/actuation blister with device 1 ea INHALATION DAILY Patient Comments: INHALE ONE PUFF BY MOUTH EVERY DAY buprenorphine-naloxone [Suboxone] 4-1 mg film 1 film sublingual DAILY Patient Comments: PLACE ONE FILM UNDER THE TONGUE EVERY DAY cyanocobalamin (vitamin B-12) [Vitamin B-12] 1,000 mcg tablet 1,000 mcg PO DAILY furosemide [Lasix] 40 mg Tablet 40 mg PO BID Discharge Instructions Instructions: COVID-19 (Coronavirus Disease 2019) (ED) Additional Instructions: You were seen in the emergency department for your prolonged COVID-19 illness, your workup was negative for any secondary bacterial infection, there is no pneumonia seen on your chest x-ray, you exhibited no low oxygen readings here in the emergency department. Your lab work is reassuring with your cardiac enzymes being negative for any cardiac pathology, your labs showed a mild dehydration which improved with IV fluids, we provided you with IV Tylenol and Toradol, please continue [id number] cold medicines at home. Please use therapeutic dosing of Tylenol (acetamenophen) & Advil (ibuprofen) in an alternating fashion as follows: Take 1000mg of Tylenol every 6 hours without missing doses- that is 4 times per day. Longterm in between the Tylenol dosings, take 400-600mg of Advil also on a 6 hour schedule, that is also 4 times per day. The daily maximum dosing of Tylenol is 4000mg, and the daily maximum dosing of Advil is 2400mg. This is safe to do for weeks. Please note that some common cold medications & prescription pain medications may contain acetamenophen and you need to read OTC drug labels and factor that in to maximum daily dosings. Stay well-hydrated and try to eat nutritious foods, use your at home albuterol inhaler for any subjective shortness of breath. Please return for further respiratory distress, profound lethargy or weakness, inability to tolerate p.o. intake with intractable nausea and vomiting. Referrals: Lexii Luna [Primary Care Provider] - Discharge Data Discharge Date/Time-TO BE ENTERED AT DEPARTURE: 03/06/23 11:42
--- OUTSIDE RECORDS SUMMARY | 2023-03-06 08:31 | XMS_ITS | Patient Health Record ---
Author Name Unknown [facility] Address [address] [place] [address] Care Team Providers Care Media Marketing Manager Name Role Phone BERTHA MARQUEZ Primary Care Provider Unavailab Jonatan Vaughan Unavailable [phone] ALLERGIES Allergen (clinical drug ingredient) Drug/Non Drug Allergy documented on EMR Reaction Allergy Type Onset Date Status HYDROcodone Bitartrate Unknown Drug Allergy Active penicillin G Penicillin G Potassium Unknown Drug Allergy Active REASON FOR REFERRAL No Information MEDICATIONS Medication SIG (Take, Route, Frequency, Duration) Notes Start Date End Date Status Keppra 500 MG 1 tablet Orally Twic e a day for 30 day(s) Active Tylenol Extra Strength 500 MG 1 tablet as needed Orally every 6 hrs Active Cymbalta 30 MG 1 capsule Orally Twi ce a day Active Flovent HFA 110 MCG/ACT 1 puff Inhalation Twice a day Active Suboxone 8-2 MG 1 film under the tongue and allow to dissolve Sublingual Once a day Active Lantus 100 UNIT/ML 40 units subcutanous at bedtime Active Aspirin 81 81 MG 1 tablet Orally Once a day for 30 day(s) Active MiraLax - as directed Orally A ctive Metoprolol Tartrate 50 MG 1 tablet with food Orally Twice a day for 30 day(s) Not-Taking OneTouch Ultra Blue - as directed In Vitro Active Warfarin Sodium 2.5 MG 1 tablet Orally Once a day for 30 day(s) Active 1st Tier Unifine Pentips 31G X 5 MM as directed Active Lasix 40 MG 1 tablet Orally Once a day for 30 day(s) Active ProAir HFA 108 (90 Base) MCG/ACT 1 puff as needed Inhalation every 4 hrs Active Lisinopril 20 MG 1 tablet Orally Once a day Active OneTouch Delica Lancets Fine Active HumaLOG KwikPen 100 UNIT/ML as directed Subcutaneous Active Coumadin 5 MG 1 tablet Orally Once a day for 30 day(s) as directed Active metFORMIN HCl 500 MG 2 tablet/s with a m eal Orally Once a day Active Gabapentin 300 MG 1 capsule Orally Onc e a day for 30 day(s) Active Ferrous Gluconate 324 (38 Fe) MG 1 tablet with water or juice between meals Orally Twice a day Active Protonix 40 MG 1 tablet Orally Once a day for 30 day(s) Active SOCIAL HISTORY Tobacco Use: Social History Observation Description Date Details (start date - stop date) Former Smoker NA - 05/29/2018 Sex Assigned At : Social History Observation Description Sex Assigned At Unknown SMOKING Question Answer Notes Are you a: former smoker When did you stop smoking? 05/29/2018 PROBLEMS Problem Type ICD Code Onset Dates Problem Status W/U Status Risk SNOMED Code Notes Problem Anemia (D64.9) Active confirmed Anemia (280501574) Problem DVT (deep venous thrombosis) (I82.409) Active confirmed Deep venous thrombosis (182637324) Problem Depression with anxiety (F41.8) Active confirmed Mixed anxiet y and depressive disorder (417576570) Problem Osteomyelitis (M86.9) Active confirmed Osteomyelitis (63538760) Problem Onychodystrophy (L60.3) Active confirmed 39827414 Problem Diabetes mellitus (E11.9) Active confirmed Diabetes mellit (67118288) Problem CVA (cerebral vascular accident) (I63.9) Active confirmed CVA - Cerebrovascular accident (177301025) Problem Hepatitis C (B19.20) Active confirmed Hepatitis C (28686195) Problem Atherosclerosis of arteries of extremities (I70.209) Active confirmed 85604827 Problem Substance abuse (F19.10) Active confirmed Substance abuse (98390330) Problem Venous hypertension of both lower extremities (I87.303) Active confirmed 041938712 Problem Endocarditis, valve unspecified (I38) Active confirmed Valvular endocarditis (25625064) Problem Flat foot [pes planus] (acquired), right foot (M21.41) Active confirmed 06798839 Problem Flat foot [pes planus] (acquired), left foot (M21.42) Active confirmed 176570445431768 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.01) Active confirmed 060091351 Problem Nail abnormality (L60.9) Active confirmed Disorder of elvia l (61593705) Problem Right foot drop (M21.371) Active confirmed 607679127051560 Problem Hammer toe of second toe of right foot (M20.41) Active confirmed 775510408 Problem Hammer toe of second toe of left foot (M20.42) Active confirmed 068252026 Problem Encounter for diabetic foot exam (E11.9) Active confirmed Type II diabete s mellitus without complication (366730138) Problem Type 2 diabetes mellitus with other neurologic complication, without long-term current use of insulin (E11.49) Active confirmed 88803827 PLAN OF TREATMENT No Information Insurance Providers Payer Name Payer Address Payer Phone Subscriber Number Group Number Insured Name Patient Relationship to Insured Coverage Start Date Coverage End Date [place] [employer] [place], [place] [id number] SERAFIN BHAGAT Self - patient is the insured SELF PAY [place] [address] [address] SERAFIN BHAGAT Self - patient is the insured MEDICAL (GENERAL) HISTORY Medical History History ICD Code Diabetes mellitus E11.9 Endocarditis, valve unspecified I38 DVT (deep venous thrombosis) I82.409 Depression with anxiety F41.8 Hepatitis C B19.20 CVA (cerebral vascular accident) I63.9 Osteomyelitis M86.9 Substance abuse F19.10 Nail abnormality L60.9 Anemia D64.9 Surgical History Surgery Date(Month/Year) ankle hardware placement and the removel May and Nov 2018 back surgery herinated disc 1991 heart vavle replacement (aortic) September 08 Hospitalization History Reason Date(Month/Year) [facility] [place], [place] related to IV drug use 07/2018
[2023-03-06 08:47] LABS: BE (Venous) 3 mmol/L (-2-3); HCO3 (Venous) 28 mmol/L (23-28); O2 Sat (Venous) 37 %; TCO2 (Venous) 25 mmol/L (24-29); pCO2 (Venous) 46 mmHg (41-51); pH (Venous) 7.38 (7.31-7.41); pO2 (Venous) 23 mmHg
[2023-03-06 08:48] LABS: Lactate 1.9 mmol/L (0.6-1.4)
[2023-03-06] MEDS: Buprenorphine/Naloxone 8 mg/2 mg FILM 1 EACH SL (08:48)
[2023-03-06] MEDS: Ketorolac 15 MG/ML VIAL IVP (08:49)
[2023-03-06] MEDS: ACETAMINOPHEN 1,000 MG/100 ML BTL 400 MG IVPB (08:49)
[2023-03-06] MEDS: Normal Saline 1,000 ML 1000 ML IV (08:49)
[2023-03-06 09:00] LABS: Abs Immature Grans 0.03 10^3/uL (0.0-0.06); Absolute Basophil Count 0.07 10^3/uL (0.0-0.2); Absolute Eosinophil Count 0.12 10^3/uL (0.0-0.7); Absolute Lymphocyte Count 1.22 10^3/uL (1.2-3.4); Absolute Monocyte Count 0.69 10^3/uL (0.1-0.8); Absolute Neutrophil Count 6.43 10^3/uL (1.2-6.7); Basophils % 0.8; Eosinophils % 1.4; HCT 46.6 % (40.0-50.0); HGB 14.5 g/dL (13.5-17.5); Immature Grans % 0.4; Lymphocytes % 14.3; MCHC 31.1 % (32.0-36.0); MCV 80 fL (80-95); Monocytes % 8.1; Platelet Count 418 10^3/uL (130-400); RBC 5.81 10^6/uL (4.36-5.78); RDW 18.6 % (11.8-14.1); RDW-SD 51.3 fL; WBC 8.56 10^3/uL (4.4-10.8)
[2023-03-06 09:15] LABS: ALT 16 U/L (16-63); AST 20 U/L (15-37); Albumin 3.7 g/dL (3.4-5.0); Alkaline Phosphatase 73 U/L (46-116); Anion Gap 9.6 mmol/L (3-11); BUN 18 mg/dL (7-18); Bilirubin, Total 0.5 mg/dL (0.2-1.0); CO2 28.4 mmol/L (21.0-32.0); CREATININE 1.6 mg/dL (0.70-1.30); Calcium 9.8 mg/dL (8.5-10.1); Chloride 104 mmol/L (98-107); Creatine Kinase 336 U/L (39-308); Estimated GFR 49.94 (mL/min/1.73m2); Glucose 139 mg/dL (74-106); Lipase 48 U/L (16-77); Magnesium 2.2 mg/dL (1.8-2.4); NT-proBNP 123 pg/mL (<300); Potassium 4.1 mmol/L (3.5-5.1); Sodium 142 mmol/L (136-145); Total Protein 8.3 g/dL (6.4-8.2); Troponin I < 50 ng/L (< or =60)
[2023-03-06 09:33] LABS: Procalcitonin < 0.1 ng/mL
[2023-03-06 09:36] LABS: D-Dimer 413 ng/mlFEU (<500)
[2023-03-06 10:34] LABS: Bilirubin Negative (Negative); Blood Negative (Negative); Clarity Clear (Clear); Glucose Negative (Negative); Ketones Negative (Negative); Leukocyte Esterase Negative (Negative); Nitrite Negative (Negative); Specific Gravity 1.015 (1.005-1.025); Urobilinogen 0.2 mg/dL (Up to 0.2); pH 8.5 (5-8)
[2023-03-06 10:44] LABS: Bacteria Negative HPF (Negative); C & S Indicated? No; Casts Negative LPF (Negative); Crystals Negative HPF (Negative); Epithelial Cells Rare HPF (Negative); Mucus Negative (Negative); RBC 0-2 HPF (0-2); WBC 0-2 HPF (0-5)
--- NOTE | 2023-03-06 10:55 | DI.RAD_ITS ---
Exam(s) XR CHEST 2V PA LATERAL EXAM: XR CHEST 2V PA LATERAL CLINICAL HISTORY: shortness of breath TECHNIQUE: 2D digital imaging was performed. COMPARISON: CR,XR XR CHEST 2V PA LATERAL from 02/23/2023 FINDINGS: HEART: Normal size. Aorta: Not dilated. PULMONARY VASCULATURE: Normal. LUNGS: Clear. PLEURAL SPACE: No pleural effusion or pneumothorax. BONE:Unremarkable for age. Soft tissues: Unremarkable. IMPRESSION: No acute abnormality. DATA REPOSITORY: RADIATION DOSE DELIVERED:
[2023-03-06 11:17] LABS: Lactate 1.4 mmol/L (0.6-1.4)
== END 2023-03-06 11:42 | disposition home or self-care (01) ==
PROVIDERS: Emergency Provider Physician Assistant; PCP Nurse Practitioner Family
DX: U07.1 COVID-19 (principal); J44.9 Chronic obstructive pulmonary disease, unspecified; R06.02 Shortness of breath; R53.1 Weakness; F17.200 Nicotine dependence, unspecified, uncomplicated; F12.10 Cannabis abuse, uncomplicated; I10 Essential (primary) hypertension; Z86.718 Personal history of other venous thrombosis and embolism; E11.9 Type 2 diabetes mellitus without complications
CPT/HCPCS: 80053; 82550; 82805; 83690; 84145; 93005; 96361; 96374; 96375; 99284; 71046; 80177; 81003; 81015; 83605; 83735; 83880; 84484; 85025; 85379; 93010; 99283; J0131; J1885

== ENCOUNTER 2023-03-28 09:44 | Outpatient (CLI) | payer MEDICAID, SELFPAY ==
--- NOTE | 2023-03-28 09:30 | RT.EKG_ITS ---
APPROVED REPORT Exam: Resting ECG Reason for Exam: sob Patient Location: O HR:83 bpm ECG Measurements Heart Rate 83 AXIS LA 164 P 68 QRSd 112 QRS 74 QT 370 T 77 QTc 435 Conclusion Sinus rhythm...normal P axis, V-rate 50- 99 Probable left atrial enlargement...P >50mS, <-0.10mV V1 Incomplete right bundle branch block...QRSd >112, terminal axis(90,270) Inferior infarct, old...Q >35mS, II III aVF I have reviewed and interpreted ECG and agree with software generated interpretation.
== END 2023-03-28 09:45 | disposition home or self-care (01) ==
LOC: DI.CARD 09:46
PROVIDERS: PCP Nurse Practitioner Family; Visit Provider Internal Medicine Interventional Cardiology
DX: R06.00 Dyspnea, unspecified (principal)
CPT/HCPCS: 93010

== ENCOUNTER → 2023-05-17 03:27 | Outpatient (CLI) | payer MEDICAID, SELFPAY ==
--- NOTE | 2023-05-17 12:30 | DI.US_ITS ---
APPROVED REPORT EXAM: Comprehensive 2D, Doppler, and color-flow Echocardiogram Patient Location: [facility] Office Coordinator: Marysol Post RDCS (AE) Indications: Bioprosthetic aortic valve, CHF Other Information Study Quality: Adequate Conclusion Mild concentric left ventricular hypertrophy. Ejection fraction is 60%. Wall motion is normal Normal right ventricular size and function Both atria are normal in size There is a bioprosthetic aortic valve. Mean gradient is 15 mm Hg. There is no aortic regurgitation Normal mitral valve with trace regurgitation Trace tricuspid regurgitation. Estimated right ventricular systolic pressure is 39 mmHg Ascending aorta 3.71 cm Wall motion Left Ventricle The left ventricle is normal size. The left ventricular systolic function is normal. The left ventric ular ejection fraction is within the normal range. Mild concentric left ventricular hypertrophy. Ther e is normal LV segmental wall motion. There is no ventricular septal defect visualized. LVEF is 60%. Right Ventricle The right ventricle is normal size. The right ventricular systolic function is normal. Atria The left atrium size is normal. The right atrium size is normal. The interatrial septum is intact wit h no evidence for an atrial septal defect. Aortic Valve Mean gradient 15 mmHg No aortic regurgitation is present. Bioprosthetic aortic valve is present. Mitral Valve The mitral valve is normal in structure. No evidence of mitral valve stenosis. Trace mitral regurgita tion. Tricuspid Valve The tricuspid valve is normal in structure. There is no tricuspid valve stenosis. Trace tricuspid reg urgitation. The RVSP is 39.0mmHg. Pulmonic Valve The pulmonary valve is normal in structure. There is no pulmonic valvular stenosis. There is no pulmo yuliya valvular regurgitation. Great Vessels The aortic root is normal in size. The ascending aorta is mildly dilated. Aortic arch is not well vis ualized. IVC is normal in size and collapses >50% with inspiration. Pericardium There is no pericardial effusion. 2D Dimensions IVSD d PLAX 1.30 cm M: 0.6-1.2 Ao Root d 3.04 cm M: 3.1 - 3.7 LVPW d PLAX 1.33 cm M: 0.6 - 1.2 Ao Asc Diam d 3.71 cm M: 2.6 - 3.4 LVID d PLAX 4.88 cm M: 4.2 - 5.8 LVDs 3.28 cm M: 2.5 - 4.0 LV EF Teichholz 61.0 % FS 32.74 % LV EDV (Teich) 111.9 mL LV ESV (Teich) 43.6 mL M-Mode TAPSE 1.21 cm (M/F) >1.7 Auto EF LV EDV A4C 128.1 mL LV EDV A2C 174.1 mL LV EDV BP 149.8 mL LV ESV A4C 59.7 mL LV ESV A2C 80.4 mL LV ESV BP 70.7 mL LVEF(%) A4C 53.4 % LVEF(%) A2C 53.8 % LVEF(%) BP 52.8 % LV SV A4C 68.5 ml LV SV A2C 93.7 ml LV SV BP 79.1 ml LV CO A4C 4.4 L/min LV CO A2C 5.9 L/min LV CO BP 5.2 L/min HR A4C 64.52 BPM HR A2C 63.39 BPM LV EDV Index (BP) LA Volume LA Length A4C 5.9 cm LA Length A2C 6.0 cm LA Area A4C s 19.71 cm2 LA Area A2C s 19.95 cm2 LA Vol A4C A-L 56.06 mL LA Vol A2C A-L 56.52 mL LA Vol Biplane A-L 56.7 mL LA Vol/BSA A4C A-L LA Vol/BSA A2C A-L LA Vol/BSA BP A-L 25.2 mL/m2 LA Vol A4C MOD 51.9 mL LA Vol A2C MOD 53.2 mL LA Vol BP MOD 52.9 mL RA Volume RA Area A4C 15.4 cm2 RA ESV A4C (A-L) 40.6mL RA Vol/BSA A4C A-L RA Length A4C 4.9 cm RA ESV A4C (MOD) 38.4mL LV Diastology MV E' medial 0.054 (>0.07 m/s) MV E Vmax 0.67 (0.4-1.3 m/s) MV E/E' MED 12.60 (<14) MV A Vmax 0.80 (0.4-1.3 m/s) MV E' lateral 0.099 (>0.1 m/s) E/A Ratio 0.8 MV E/E' LAT 6.85 (<14) MV E' Average 0.076 m/s MV E/E'(average) 8.87 Aortic Valve AoV Vmax 2.53 m/s LVOT Vmax 1.41 m/s AoV Peak Grad 25.6 mmHg LVOT Peak Grad 8.0 mmHg AoV Area (Vmax) 1.59 cm2 LVOT VTI 0.292 m AoV VTI 0.467 m LVOT Mean Grad 5.5 mmHg AoV Mean Daniel. 1.86 m/s LVOT SV 83.17 mL AoV Mean Grad 15.4 mmHg LVOT Diam s 1.90 cm AoV Area (VTI) 1.78 cm2 Velocity Ratio 0.56 Mitral Valve MV DT 265 (160-240 msec) MV Vmax TIPS 0.97 m/s MV Mean Grad 2.0 (<2mmHg) MV VTI 0.266 m Pulmonary Valve PV Vmax 1.13 (0.5-1.5 m/s) RVOT Vmax 0.81 m/s PV Peak Grad 5.1 mmHg RVOT Peak Gr. 2.6 mmHg PV Mean Daniel 0.69 m/s RVOT VTI 0.162 m PV Mean Grad 2.3 mmHg RVOT Mean Gr. 1.2 mmHg Tricuspid Valve RA Pressure 3.00 mmHg TR Vmax 3.00 m/s TV S' 0.10 m/s TR Peak Grad 35.9 mmHg RVSP (TR) 39.0 mmHg
== END ==
PROVIDERS: PCP Nurse Practitioner Family; Visit Provider Internal Medicine Interventional Cardiology
DX: I50.9 Heart failure, unspecified (principal)
CPT/HCPCS: 93306

== ENCOUNTER 2023-06-14 19:09 | Emergency (ER) | payer MEDICAID, SELFPAY ==
[2023-06-14] VITALS (18 sets, daily range): BP systolic 184–227; BP diastolic 94–112; PULSE 68–82; RESP 15–21; TEMP 36.3–36.7; O2SAT 94–99
--- NOTE | 2023-06-14 19:15 | DI.RAD_ITS ---
Exam(s) XR ANKLE RT COMPLETE XR FOOT RT COMPLETE EXAM: XR FOOT RT COMPLETE and XR ankle RT complete CLINICAL HISTORY: pain s/p fall. TECHNIQUE: 2D digital imaging was performed of the right ankle and foot. Six images were obtained. AP, oblique and lateral views were obtained. COMPARISON: There are no priors for comparison. FINDINGS: BONES: There is an acute oblique intra-articular fracture through the lateral aspect of the base of t he 1st metatarsal. 2-3 mm displacement of the distal fracture fragment medially is noted. No bony d estructive lesion is seen. JOINTS: No dislocation present. The ankle joint appears well maintained. SOFT TISSUE: Soft tissue swelling of the foot. IMPRESSION: Mildly displaced intra-articular fracture through the lateral aspect of the base of the 1st metatarsa l bone. DATA REPOSITORY: RADIATION DOSE DELIVERED:
--- NOTE | 2023-06-14 19:15 | DI.RAD_ITS ---
Exam(s) XR RIBS RT W PA LAT CHEST EXAM: XR RIBS RT W PA LAT CHEST CLINICAL HISTORY: pain s/p fall TECHNIQUE: 2D digital imaging was performed.Six images were obtained. COMPARISON: CT CT ABDOMEN WO/W from 07/08/2022 CR XR CHEST 2V PA LATERAL from 03/06/2023 FINDINGS: MEDIASTINUM: Normal. HEART: There is an aortic valve replacement. PULMONARY VASCULATURE: Normal. LUNGS: The lungs appear hyperinflated with flattened diaphragms suggesting underlying COPD. No focal consolidating infiltrates are seen. PLEURAL SPACE: No pleural effusion or pneumothorax. BONE:Normal. RIGHT RIBS: Normal. No displaced rib fractures are seen. OTHER FINDINGS:There are calcified granuloma again seen in the spleen. IMPRESSION: 1. No acute pulmonary findings. 2. Unremarkable right ribs. DATA REPOSITORY: RADIATION DOSE DELIVERED:
--- NOTE | 2023-06-14 19:29 | W.ED.GENAD ---
Discharge Plan Disposition Patient Disposition: Home Condition: Stable Discharge Details Clinical Impression: Contusion of rib on right side, Foot fracture, right Primary Care Provider: Lexii Luna ED Provider: Mio Blas Home Meds and New Rx's Prescriptions: Continued esomeprazole magnesium [Nexium] 40 mg capsule,delayed release(DR/EC) 40 mg PO DAILY gabapentin 300 mg capsule 600 mg PO TID Trulicity 4.5 mg/0.5 mL pen injector 4.5 mg subcut QWEEK diltiazem HCl 120 mg capsule,extended release 24hr 120 mg PO DAILY albuterol sulfate 90 mcg/actuation HFA aerosol inhaler 2 inh inhalation Q6H PRN aspirin 81 mg Tablet 81 mg PO DAILY duloxetine 30 mg Capsule,Delayed Release(Dr/Ec) 30 mg PO BID acetaminophen [Tylenol] 325 mg tablet 1,000 mg PO Q6H PRN Anoro Ellipta 62.5-25 mcg/actuation blister with device 1 ea INHALATION DAILY Patient Comments: INHALE ONE PUFF BY MOUTH EVERY DAY buprenorphine-naloxone [Suboxone] 4-1 mg film 1 film sublingual DAILY Patient Comments: PLACE ONE FILM UNDER THE TONGUE EVERY DAY cyanocobalamin (vitamin B-12) [Vitamin B-12] 1,000 mcg tablet 1,000 mcg PO DAILY lisinopril 40 mg tablet 40 mg PO DAILY Patient Comments: TAKE ONE TABLET BY MOUTH EVERY DAY furosemide [Lasix] 40 mg Tablet 40 mg PO BID Discharge Instructions Additional Instructions: Placed in a splint for a foot fracture Call orthopedics for an appointment If you feel more ill, have severe worsening pain or new symptoms such as difficulty breathing return to the emergency department for reevaluation Referrals: Guy Pedersen MD [ [facility] STAFF PHYSICIAN] - [facility] General Date/Time Provider Initiated Documentation: 06/14/23 19:10. Limitations to Documentation: no limitations. Information obtained by: patient. History of Present Illness 57 year old M presents to the emergency department with the chief complaint of Right foot pain, described as moderate, Quality is described as aching, Patient started experiencing this day(s) (2) and it has been constant. No relieving factors improve symptom(s), No exacerbating factors reported . Patient did receive the following treatments prior to arrival, none Related Data Home Medications Medication Instructions Recorded Confirmed furosemide 40 mg tablet (Lasix) 40 mg PO BID 02/15/19 06/14/23 esomeprazole magnesium 40 mg 40 mg PO DAILY 05/05/20 06/14/23 capsule,delayed release (Nexium) aspirin 81 mg tablet 81 mg PO DAILY 08/03/20 06/14/23 duloxetine 30 mg capsule,delayed 30 mg PO BID 08/03/20 06/14/23 release acetaminophen 325 mg tablet 1,000 mg PO Q6H PRN 09/27/20 06/14/23 (Tylenol) umeclidinium 62.5 mcg-vilanterol 1 ea inhalation DAILY 09/27/20 06/14/23 25 mcg/actuation powdr for inhalation (Anoro Ellipta) buprenorphine 4 mg-naloxone 1 mg 1 film sublingual DAILY 09/28/20 06/14/23 sublingual film (Suboxone) albuterol sulfate 90 mcg/actuation 2 inh inhalation Q6H PRN 04/12/22 06/14/23 aerosol inhaler diltiazem HCl 120 mg 120 mg PO DAILY 04/12/22 06/14/23 capsule,extended release 24 hr dulaglutide 4.5 mg/0.5 mL 4.5 mg subcut QWEEK 04/12/22 06/14/23 subcutaneous pen injector (Trulicity) gabapentin 300 mg capsule 600 mg PO TID 04/12/22 06/14/23 cyanocobalamin (vitamin B-12) 1,000 mcg PO DAILY 03/06/23 06/14/23 1,000 mcg tablet (Vitamin B-12) lisinopril 40 mg tablet 40 mg PO DAILY 06/14/23 06/14/23 Allergies Allergy/AdvReac Type Severity Reaction Status Date / Time Penicillins AdvReac Severe Vomiting Verified 06/14/23 19:19 hydrocodone AdvReac Intermediate vomiting Verified 06/14/23 19:19 General Stated Complaint: Fall/Non TraumaCriteria LILLIAN: 3 Review of Systems All systems reviewed & are unremarkable except as noted in HPI and below Constitutional Constitutional: Denies chills, Denies fever(s) and Denies weakness Cardiovascular Cardiovascular: Denies chest pain and Denies dyspnea Respiratory Respiratory: Denies cough and Denies dyspnea Gastrointestinal Gastrointestinal: Denies abdominal pain, Denies nausea and Denies vomiting Musculoskeletal Musculoskeletal: Denies joint swelling Neurologic Neurologic: Denies weakness Exam Const General: no acute distress Orientation: alert [facility] Head: normal to inspection Ears: external ears normal General nose exam: external nose normal Mouth: moist mucous membranes Eyes General: appearance normal, both eyes and all related structures Neck Neck: normal visual inspection, full ROM and nontender Chest Chest: no crepitus Resp Effort & Inspection: normal respiratory effort and able to speak in complete sentences Auscultation: clear to auscultation bilaterally Cardio Rate: regular rate GI Palpation: soft and nontender Skin General skin exam: no rashes or lesions noted Neuro General: patient alert and patient oriented x3 Extrem General: capillary refill normal Psych Mental Status: mental status grossly normal Course Vital Signs Vital signs: Vital Signs Temperature 36.3 C L 06/14/23 19:10 Pulse 82 06/14/23 19:10 Respiratory Rate 20 06/14/23 19:10 Blood Pressure 187/94 H 06/14/23 19:10 Pulse Oximetry 95 06/14/23 19:10 Temperature 36.3 C L 06/14/23 19:10 Temperature Source Skin 06/14/23 19:10 Pulse 82 06/14/23 19:10 Respiratory Rate 20 06/14/23 19:10 Respiratory Effort Normal, Non-Labored 06/14/23 19:18 Blood Pressure 187/94 H 06/14/23 19:10 Blood Pressure Position Sitting 06/14/23 19:10 Pulse Oximetry 95 06/14/23 19:10 Oxygen Delivery Method Room Air 06/14/23 19:10 Oxygen Flow Rate 0 06/14/23 19:10 Pain Level 10 06/14/23 19:10 Medical Decision Making 57-year-old male who had a prior stroke with residual right-sided deficits who uses a walker at baseline, says that 2 days ago he was in his driveway and tripped landing on his right side. Did not hit his head or have loss of consciousness and denies any preceding symptoms to the fall states he tripped. He has had pain in his right foot and right lateral chest since. Has any headaches, neck pain, back pain, anterior chest pain or abdominal pain. His right foot is swollen, and tender to palpation, does have intact pulses and sensation. Has no tenderness in the mid to proximal tib-fib, no pain in the knee, femur or hip. He has tenderness in the right lateral chest over ribs 4 and 5 in the mid axillary line, no other tenderness elsewhere. Signs of trauma to the head. Will obtain x-rays of the foot and ankle on the right, and obtain rib series on the right. X-ray showed right first metatarsal fracture, no other findings on ankle or rib x-rays. He remained stable, I placed him in a posterior leg splint without complications intact CSM T's afterwards. Will place an orthopedic referral list, return precautions given Differential Diagnosis Differential Diagnosis: Fracture, contusion Medical Records Medical records reviewed: Yes I reviewed the patient's medical records. Imaging Data Radiologic Study: Attestation: I personally reviewed and interpreted this imaging study as follows: Imaging: X-Ray Radiologist's impression: PROCEDURE INFORMATION: Exam: XR Right Foot Exam date and time: 06/14/2023 8:13 PM Age: 57 years old Clinical indication: Injury or trauma; Fall; Sprain or strain and swelling (edema); Foot; Right; Injury date: 06/12/2023; Injury details: PT states he fell in his driveway; Patient HX: PT states he had a stroke about 4yrs ago TECHNIQUE: Imaging protocol: Radiologic exam of the right foot. Views: 3 or more views. COMPARISON: CR XR TIB/FIB RT 08/16/2021 3:08 PM FINDINGS: Bones/joints: There is a minimally displaced, obliquely oriented acute fracture through lateral aspect, base of the 1st metatarsal. Fracture line extends to tarsometatarsal joint space. No subluxation. Soft tissues: Soft tissue swelling is demonstrated in distal leg, ankle and foot. IMPRESSION: Acute fracture of the 1st metatarsal. Radiologic Study #2: Attestation: I personally reviewed and interpreted this imaging study as follows: Imaging: X-Ray Radiologist's impression: PROCEDURE INFORMATION: Exam: XR Right Ankle Exam date and time: 06/14/2023 8:15 PM Age: 57 years old Clinical indication: Injury or trauma; Fall; Sprain or strain and swelling (edema); Ankle; Right; Injury date: 06/12/2023; Injury details: PT states he fell in his driveway; Patient HX: PT states he had a stroke about 4yrs ago TECHNIQUE: Imaging protocol: Radiologic exam of the right ankle. Views: 3 or more views. COMPARISON: CR XR FOOT RT COMPLETE 06/14/2023 8:13 PM FINDINGS: Bones/joints: Acute fracture through 1st metatarsal, incompletely demonstrated. No subluxation. Soft tissues: Soft tissue swelling. IMPRESSION: Acute fracture of the 1st metatarsal Radiologic Study #3: Attestation: I personally reviewed and interpreted this imaging study as follows: Imaging: X-Ray Radiologist's impression: No acute findings Quality:SDOH Health Related Social Needs: No Data to Display PFSH All Active Problems (Updated 06/14/23 @ 21:35 by Mio Blas MD) Foot fracture, right (Acute) Contusion of rib on right side (Acute) Chronic venous insufficiency (Acute) COVID-19 (Acute) COVID (Acute) Obstructive sleep apnea (Chronic) COPD (chronic obstructive pulmonary disease) (Chronic) Anxiety (Chronic) Leg wound, left (Acute) Medical non-compliance (Acute) Cocaine abuse (Chronic) Hypertensive urgency (Acute) Dysphagia (Acute) Dyspnea (Acute) S/P endoscopy (Acute) Hypertensive emergency (Acute) Dyspepsia (Acute) Discharge planning issues (Acute) DVT (deep venous thrombosis) (Chronic) Pneumonia (Acute) Aragon esophagus (Acute) Diabetic neuropathy (Acute) Traumatic hematoma of right upper arm (Acute) Likely due to trauma sustained in the ambulance Anemia due to acute blood loss (Acute) Symptomatic anemia (Acute) 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) (Acute) Opiate dependence (Chronic) managed on suboxone Hypertension (Chronic) Discharge planning issues (Acute) Aortic insufficiency (Acute) s/p valve replacement Diabetes mellitus (Chronic) Acute anemia (Acute) Medical History 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 Displaced bimalleolar fracture of left ankle s/p infection of wound Tinea corporis Chronic pain Depression Right rotator cuff tear Aortic valve endocarditis MSSA (methicillin susceptible Staphylococcus aureus) septicemia Hepatitis C GERD (gastroesophageal reflux disease) Smoker Surgical History H/O aortic valve replacement Pericardial aortic valve at [facility] [place] [place] - 08/21/2018 - Magna Ease 25 mm S/P hardware removal L ankle. S/P percutaneous endoscopic gastrostomy (PEG) tube placement History of ankle surgery S/P spinal surgery Family History Father No problems noted. Mother COPD (chronic obstructive pulmonary disease) Hypertension Diabetes Heart disease Sister Stroke Social History Smoking/Tobacco Use Status: Current every day Tobacco Type: cigarettes Smoking risk assessment performed?: Yes Alcohol Intake: never Drug use: Daily Substance use type: marijuana Caregiver/Support person: Yes Household members: friend(s) Housing: house Number of Children: 0 number of grandchildren: 1 current occupation: Disabled Pets and animals: Yes Pets and animals: cat(s) Current gender identity: male What type of physical activity do you participate in: none Do you feel safe at home: Yes Do you feel safe in your relationship?: Yes Additional Social history: Lives with ex-
[2023-06-14] MEDS: HYDROmorphone 2 MG/ML SYR 1 MG IM (19:41)
[2023-06-14] MEDS: Ketorolac 15 MG/ML VIAL IM (19:42)
--- NOTE | 2023-06-14 21:15 | DI.VRAD_ITS ---
PROCEDURE INFORMATION: Exam: XR Right Foot Exam date and time: 06/14/2023 8:13 PM Age: 57 years old Clinical indication: Injury or trauma; Fall; Sprain or strain and swelling (edema); Foot; Right; Injury date: 06/12/2023; Injury details: PT states he fell in his driveway; Patient HX: PT states he had a stroke about 4yrs ago TECHNIQUE: Imaging protocol: Radiologic exam of the right foot. Views: 3 or more views. COMPARISON: CR XR TIB/FIB RT 08/16/2021 3:08 PM FINDINGS: Bones/joints: There is a minimally displaced, obliquely oriented acute fracture through lateral aspect, base of the 1st metatarsal. Fracture line extends to tarsometatarsal joint space. No subluxation. Soft tissues: Soft tissue swelling is demonstrated in distal leg, ankle and foot. IMPRESSION: Acute fracture of the 1st metatarsal. Dictated and Authenticated by: Juan Field MD. Ordering:MARVEL Lieberman MD
--- NOTE | 2023-06-14 21:18 | DI.VRAD_ITS ---
PROCEDURE INFORMATION: Exam: XR Right Ankle Exam date and time: 06/14/2023 8:15 PM Age: 57 years old Clinical indication: Injury or trauma; Fall; Sprain or strain and swelling (edema); Ankle; Right; Injury date: 06/12/2023; Injury details: PT states he fell in his driveway; Patient HX: PT states he had a stroke about 4yrs ago TECHNIQUE: Imaging protocol: Radiologic exam of the right ankle. Views: 3 or more views. COMPARISON: CR XR FOOT RT COMPLETE 06/14/2023 8:13 PM FINDINGS: Bones/joints: Acute fracture through 1st metatarsal, incompletely demonstrated. No subluxation. Soft tissues: Soft tissue swelling. IMPRESSION: Acute fracture of the 1st metatarsal. Dictated and Authenticated by: Juan Field MD. Ordering:MARVEL Lieberman MD
--- NOTE | 2023-06-14 21:23 | DI.VRAD_ITS ---
PROCEDURE INFORMATION: Exam: XR Right Ribs Exam date and time: 06/14/2023 8:01 PM Age: 57 years old Clinical indication: Injury or trauma; Fall; Swelling (edema); Rib area; Sprain or strain; Injury date: 06/12/2023; Injury details: PT states he fell in his driveway; Patient HX: PT states he had a stroke about 4yrs ago TECHNIQUE: Imaging protocol: Radiologic exam of the right ribs. Views: 2 views. COMPARISON: CR XR CHEST 2V PA LATERAL 03/06/2023 10:48 AM FINDINGS: Bones/joints: No acute right rib fracture. Minimal multilevel hypertrophic endplate degenerative changes in spine Soft tissues: Normal. IMPRESSION: No acute right rib fracture. PROCEDURE INFORMATION: Exam: XR Chest Exam date and time: 06/14/2023 8:01 PM Age: 57 years old Clinical indication: Injury or trauma; Fall; Swelling (edema); Rib area; Sprain or strain; Injury date: 06/12/2023; Injury details: PT states he fell in his driveway; Patient HX: PT states he had a stroke about 4yrs ago TECHNIQUE: Imaging protocol: Radiologic exam of the chest. Views: 2 views. COMPARISON: CR XR CHEST 2V PA LATERAL 03/06/2023 10:48 AM FINDINGS: Lungs: Hyperinflated. Prominent retrosternal and retrocardiac air spaces. Flattening of hemidiaphragms. No consolidation. Pleural spaces: Unremarkable. No pleural effusion. No pneumothorax. Heart/Mediastinum: Status post aortic valve replacement. No cardiomegaly. Bones/joints: Prior median sternotomy. IMPRESSION: 1. No acute findings. 2. Radiographic appearance consistent with the presence of COPD. Dictated and Authenticated by: Juan Field MD. Ordering:MARVEL Lieberman MD
--- NOTE | 2023-06-14 21:45 | NUR.NOTE ---
assist with fiberglass splint placement to right foot/ankle, CMS intact, no concerns or complications, tolerated well Nursing Note:
== END 2023-06-14 21:53 | disposition home or self-care (01) ==
PROVIDERS: Emergency Provider Emergency Medicine; PCP Nurse Practitioner Family
DX: S92.901A Unspecified fracture of right foot, initial encounter for closed fracture (principal); S20.211A Contusion of right front wall of thorax, initial encounter; R07.89 Other chest pain; M79.671 Pain in right foot; W19.XXXA Unspecified fall, initial encounter
CPT/HCPCS: 96372; 99284; 71046; 71100; 73610; 73630; 99283; J1170; J1885

== ENCOUNTER 2023-09-29 21:21 | Emergency (ER) | payer MEDICAID, SELFPAY ==
[2023-09-29] VITALS (14 sets, daily range): BP systolic 149; BP diastolic 86; PULSE 106–124; RESP 14–26; O2SAT 92–97
--- NOTE | 2023-09-29 21:15 | RT.EKG_ITS ---
APPROVED REPORT Exam: Resting ECG Reason for Exam: cocaine use Patient Location: E HR:120 bpm ECG Measurements Heart Rate 120 AXIS AL 149 P 38 QRSd 109 QRS 167 QT 347 T 59 QTc 491 Conclusion Sinus tachycardia...rate> 99 Left atrial enlargement...P, P'>60mS, <-0.15mV V1 Inferior infarct, old...Q >35mS, II III aVF Posterior infarct, acute...ST<-0.1 V1-V3 or ST>.05 V7-V9 poor baseline, sinus tachycardia, subtle elevation interior septal
--- NOTE | 2023-09-29 21:15 | RT.EKG_ITS ---
APPROVED REPORT Exam: Resting ECG Reason for Exam: overdose Patient Location: E HR:112 bpm ECG Measurements Heart Rate 112 AXIS DE 155 P 45 QRSd 115 QRS 85 QT 338 T 56 QTc 462 Conclusion Sinus tachycardia...rate> 99 Probable left atrial enlargement...P >50mS, <-0.10mV V1 Right bundle branch block...QRSd>120, terminal axis(90,270) Inferior infarct, old...Q >35mS, II III aVF sinus tachycardua, consider subtle st elevation III aVF, RBBB
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
--- NOTE | 2023-09-29 21:30 | DI.RAD_ITS ---
Exam(s) XR PORTABLE CHEST AP EXAM: XR PORTABLE CHEST AP CLINICAL HISTORY: cocaine od, concern for CHF. TECHNIQUE: 2D digital imaging was performed. COMPARISON: CR,XR XR RIBS RT W PA LAT CHEST from 06/14/2023 FINDINGS: Single AP portable view. Sternotomy wires are again noted. Prosthetic aortic valve again noted. Heart size is upper normal a nd the mediastinum is not widened. No new infiltrates evident. Mild blunting of left costophrenic angle may indicate a small amount lef t pleural fluid. There is no pulmonary edema. No obvious right lung base findings. IMPRESSION: Sternotomy. Prosthetic aortic valve. No pulmonary edema. Mild blunting left costophrenic angle. May indicate a small left pleural effusion. DATA REPOSITORY: RADIATION DOSE DELIVERED:
[2023-09-29 21:50] LABS: Abs Immature Grans 0.05 10^3/uL (0.0-0.06); Absolute Basophil Count 0.06 10^3/uL (0.0-0.2); Absolute Eosinophil Count 0.02 10^3/uL (0.0-0.7); Absolute Lymphocyte Count 0.18 10^3/uL (1.2-3.4); Absolute Monocyte Count 0.04 10^3/uL (0.1-0.8); Absolute Neutrophil Count 7.94 10^3/uL (1.2-6.7); Basophils % 0.7 %; Eosinophils % 0.2 %; HCT 47.4 % (40.0-50.0); Immature Grans % 0.6 %; Lymphocytes % 2.2 %; MCH 27.3 pg (27.0-33.0); MCHC 31.6 % (32.0-36.0); MCV 86 fL (80-95); MPV 8.9 fL (8.0-11.0); Monocytes % 0.5 %; Neutrophils % 95.8 %; Platelet Count 292 10^3/uL (130-400); RDW 15.8 % (11.8-14.1); RDW-SD 49.1 fL; WBC 8.29 10^3/uL (4.4-10.8)
[2023-09-29 22:03] LABS: INR 1.1 (0.9-1.1); PTT Activated 21.5 sec (23.6-32.8); Prothrombin Time 10.8 sec (9.1-11.1)
[2023-09-29] MEDS: Aspirin 81 MG CHEW 324 MG CH (22:10)
[2023-09-29] MEDS: Normal Saline 500 ML 1000 ML IV (22:24)
[2023-09-29 22:40] LABS: ALT 17 U/L (16-63); AST 17 U/L (15-37); Albumin 3.1 g/dL (3.4-5.0); Alkaline Phosphatase 98 U/L (46-116); Anion Gap 11.9 mmol/L (3-11); BUN 19 mg/dL (7-18); Bilirubin, Total 0.79 mg/dL (0.2-1.0); CO2 25.1 mmol/L (21.0-32.0); CREATININE 1.2 mg/dL (0.70-1.30); Calcium 7.9 mg/dL (8.5-10.1); Chloride 107 mmol/L (98-107); Estimated GFR 70.53 (mL/min/1.73m2); Glucose 101 mg/dL (74-106); NT-proBNP 319 pg/mL (<300); Potassium 3.6 mmol/L (3.5-5.1); Sodium 144 mmol/L (136-145); TSH (W/Ref FT4) 0.41 uIU/mL (0.36-3.74); Total Protein 6.4 g/dL (6.4-8.2); Troponin I < 50 ng/L (< or =60)
[2023-09-29] MEDS: Normal Saline - Diluent 50 ML VIAL IJ (22:56)
[2023-09-29] MEDS: Omnipaque 350 MG/ML 100 ML BTL IJ (22:57)
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
--- NOTE | 2023-09-30 00:36 | DI.VRAD_ITS ---
PROCEDURE INFORMATION: Exam: XR Chest Exam date and time: 09/29/2023 10:47 PM Age: 57 years old Clinical indication: Other: Cocaine od, concern for chf; Prior surgery; Surgery date: 6+ months; Surgery type: Heart surgery TECHNIQUE: Imaging protocol: Radiologic exam of the chest. Views: 1 view. COMPARISON: 1. CR XR RIBS RT W PA LAT CHEST 06/14/2023 8:[address] ABDOMEN PELVIS W 09/29/2023 11:02 PM FINDINGS: Lungs: Mild hyperexpansion and hyperlucency with mild diaphragmatic flattening suggesting possible COPD. Pulmonary vasculature grossly normal. Alveolar opacity in the left lung base, atelectasis versus pneumonia. Pleural spaces: Slightly blunted left lateral costophrenic angle consistent with minimal left basilar pleural effusion seen on recent CT. No pneumothorax. Heart/Mediastinum: Heart size normal. No tracheal/mediastinal shift. Bones/joints: Prior median sternotomy with prosthetic aortic valve. No acute osseous abnormalities are identified. IMPRESSION: 1. Mild left basilar airspace disease, atelectasis versus pneumonia. 2. Minimal left basilar pleural effusion. Dictated and Authenticated by: John Fishman MD. Ordering:MARC Neville MD
[2023-09-30 03:34] VITALS: BP 178/93; PULSE 108; RESP 17; TEMP 36.8; O2SAT 95
--- NOTE | 2023-10-06 14:23 | NUR.NOTE ---
Access chart to reconcile EKG orders and number of EKG's in [facility]. Duplicate order cancelled. Nursing Note:
== END 2023-09-30 00:32 | disposition left against medical advice (07) ==
PROVIDERS: Emergency Provider Emergency Medicine; PCP Nurse Practitioner Family
DX: T40.5X1A Poisoning by cocaine, accidental (unintentional), initial encounter (principal); F14.10 Cocaine abuse, uncomplicated; J44.9 Chronic obstructive pulmonary disease, unspecified; I10 Essential (primary) hypertension; I69.351 Hemiplegia and hemiparesis following cerebral infarction affecting right dominant side; F17.210 Nicotine dependence, cigarettes, uncomplicated; Z95.2 Presence of prosthetic heart valve; Z79.85 Long-term (current) use of injectable non-insulin antidiabetic drugs; Z53.29 Procedure and treatment not carried out because of patient's decision for other reasons
CPT/HCPCS: 80053; 93005; 99285; 71045; 74177; 83880; 84443; 84484; 85025; 85610; 85730; 93010; 99284; J3490

== ENCOUNTER 2023-09-30 08:18 | Inpatient (IN) | payer MEDICAID, SELFPAY ==
[2023-09-30] VITALS (37 sets, daily range): BP systolic 109–151; BP diastolic 53–85; PULSE 62–94; RESP 10–30; TEMP 36.1–36.9; O2SAT 88–97
--- NOTE | 2023-09-30 08:30 | RT.EKG_ITS ---
APPROVED REPORT Exam: Resting ECG Reason for Exam: shortness of breath Patient Location: E HR:80 bpm ECG Measurements Heart Rate 80 AXIS FL 165 P 45 QRSd 114 QRS 51 QT 399 T 76 QTc 461 Conclusion Sinus rhythm [address] depression no stemi
--- NOTE | 2023-09-30 09:01 | ED.GENADUL_ITS ---
Discharge Plan Disposition Patient Disposition: Home Condition: Stable Discharge Details Chief Complaint: SOB Clinical Impression: Hypoxia, Cocaine abuse, Chronic venous insufficiency, Cocaine overdose Primary Care Provider: Lexii Luna ED Provider: Trevor Mackenzie Home Meds and New Rx's Prescriptions: No Action esomeprazole magnesium [Nexium] 40 mg capsule,delayed release(DR/EC) 40 mg PO DAILY gabapentin 300 mg capsule 600 mg PO TID Trulicity 4.5 mg/0.5 mL pen injector 4.5 mg subcut QWEEK diltiazem HCl 120 mg capsule,extended release 24hr 120 mg PO DAILY albuterol sulfate 90 mcg/actuation HFA aerosol inhaler 2 inh inhalation Q6H PRN aspirin 81 mg Tablet 81 mg PO DAILY duloxetine 30 mg Capsule,Delayed Release(Dr/Ec) 30 mg PO BID acetaminophen [Tylenol] 325 mg tablet 1,000 mg PO Q6H PRN Anoro Ellipta 62.5-25 mcg/actuation blister with device 1 ea INHALATION DAILY Patient Comments: INHALE ONE PUFF BY MOUTH EVERY DAY buprenorphine-naloxone [Suboxone] 4-1 mg film 1 film sublingual DAILY Patient Comments: PLACE ONE FILM UNDER THE TONGUE EVERY DAY cyanocobalamin (vitamin B-12) [Vitamin B-12] 1,000 mcg tablet 1,000 mcg PO DAILY lisinopril 40 mg tablet 40 mg PO DAILY Patient Comments: TAKE ONE TABLET BY MOUTH EVERY DAY furosemide [Lasix] 40 mg Tablet 40 mg PO BID amlodipine 2.5 mg tablet 2.5 mg PO DAILY Patient Comments: TAKE ONE TABLET BY MOUTH EVERY DAY HPI General Date/Time Provider Initiated Documentation: 09/30/23 08:24 . Limitations to Documentation: no limitations . Information obtained by: patient and old records reviewed . HPI Narrative: 57-year-old gentleman with past medical history of COPD, hypertension, CVA, diabetes, polysubstance abuse, CAD s/p CABG presents for evaluation of shortness of breath. Patient presented to the emergency department via EMS last night. Per documentation, the patient had consumed approximately 1 g of cocaine. He was having significant nausea and vomiting. At that time workup was concerning for hypoxia, oxygen dependence. Concern for possible CHF. The patient required oxygen to maintain appropriate saturation. At that time, patient decided to leave the hospital AGAINST MEDICAL ADVICE. Since that time he has been sitting in the lobby of the emergency department, waiting for RCT to take him home. He decided to check back in because he was having significant shortness of breath. He denies any chest pain at this time. Related Data Home Medications ?Medication ?Instructions ?Recorded ?Confirmed furosemide 40 mg tablet (Lasix) 40 mg PO BID 02/15/19 09/30/23 esomeprazole magnesium 40 mg 40 mg PO DAILY 05/05/20 09/30/23 capsule,delayed release (Nexium) aspirin 81 mg tablet 81 mg PO DAILY 08/03/20 09/30/23 duloxetine 30 mg capsule,delayed 30 mg PO BID 08/03/20 09/30/23 release acetaminophen 325 mg tablet 1,000 mg PO Q6H PRN 09/27/20 09/30/23 (Tylenol) umeclidinium 62.5 mcg-vilanterol 1 ea inhalation DAILY 09/27/20 09/30/23 25 mcg/actuation powdr for inhalation (Anoro Ellipta) buprenorphine 4 mg-naloxone 1 mg 1 film sublingual DAILY 09/28/20 09/30/23 sublingual film (Suboxone) albuterol sulfate 90 mcg/actuation 2 inh inhalation Q6H PRN 04/12/22 09/30/23 aerosol inhaler diltiazem HCl 120 mg 120 mg PO DAILY 04/12/22 09/30/23 capsule,extended release 24 hr dulaglutide 4.5 mg/0.5 mL 4.5 mg subcut QWEEK 04/12/22 09/30/23 subcutaneous pen injector (Trulicity) gabapentin 300 mg capsule 600 mg PO TID 04/12/22 09/30/23 cyanocobalamin (vitamin B-12) 1,000 mcg PO DAILY 03/06/23 09/30/23 1,000 mcg tablet (Vitamin B-12) lisinopril 40 mg tablet 40 mg PO DAILY 06/14/23 09/30/23 amlodipine 2.5 mg tablet 2.5 mg PO DAILY 09/30/23 09/30/23 Allergies Allergy/AdvReac Type Severity Reaction Status Date / Time Penicillins AdvReac Severe Vomiting Verified 09/29/23 21:26 hydrocodone AdvReac Intermediate vomiting Verified 09/29/23 21:26 General Stated Complaint: SOB LILLIAN: 3 Exam Narrative Exam Narrative: Review of Systems: All systems reviewed & are unremarkable except as noted in HPI and below Disheveled, chronically ill-appearing NCAT PERRL, normal conjunctiva RRR no murmur Tachypnea, hypoxia at 88%, difficulty completing sentences, crackles throughout Nondistended abdomen soft nontender Extremities w/o deformity, no cyanosis, no edema Chronic venous stasis in bilateral lower extremities Facial asymmetry and speech deficit consistent with prior CVA Appropriate mood and affect Course Vital Signs Vital signs: Vital Signs Temperature 36.6 C 09/30/23 08:28 Pulse 82 09/30/23 08:28 Respiratory Rate 18 09/30/23 08:28 Blood Pressure 109/61 09/30/23 08:28 Pulse Oximetry 89 L 09/30/23 08:28 Temperature 36.6 C 09/30/23 08:28 Temperature Source Temporal Artery Scan 09/30/23 08:28 Pulse 65 09/30/23 08:46 Pulse 83 09/30/23 08:50 Respiratory Rate 24 09/30/23 08:50 Respiratory Effort Normal, Short of Breath 09/30/23 08:46 Respiratory Depth Normal 09/30/23 08:46 Respiratory Pattern Normal 09/30/23 08:46 Blood Pressure 134/77 09/30/23 08:46 Blood Pressure Mean 98 09/30/23 08:46 Pulse Oximetry 88 L 09/30/23 08:50 Oxygen Delivery Method Room Air 09/30/23 08:28 Oxygen Flow Rate 0 09/30/23 08:28 Comment sleeping 09/30/23 08:46 Medical Decision Making Emergent evaluation of hypoxia and shortness of breath. Patient presented last night and had full evaluation at that time. Plan was to admit the patient to the hospital, but he is left AGAINST MEDICAL ADVICE. He has returned to resume his workup. He is still having persistent hypoxia. Based on his physical exam concern for possible CHF. I reviewed the lab work and noted that he had 2 troponins that were negative, his BNP was elevated at 319. Chest x-ray was concerning for some mild pleural effusion and some interstitial fullness. Repeat EKG this morning reveals sinus rhythm at 80, nonspecific ST depressions, no acute ischemia. The patient requires hospitalization based on his persistent hypoxia. While this could be infectious etiology, Pro-Regino and white blood cell count from last night were negative. Discussed with the hospitalist who will admit the patient to their service for further management. Quality:SDOH Health Related Social Needs: No Data to Display PFSH All Active Problems (Updated 09/30/23 @ 09:28 by Trevor Mackenzie MD) Hypoxia (Acute) Cocaine overdose (Acute) Chronic venous insufficiency (Acute) COVID-19 (Acute) COVID (Acute) Obstructive sleep apnea (Chronic) COPD (chronic obstructive pulmonary disease) (Chronic) Anxiety (Chronic) Leg wound, left (Acute) Medical non-compliance (Acute) Cocaine abuse (Chronic) Hypertensive urgency (Acute) Dysphagia (Acute) Dyspnea (Acute) S/P endoscopy (Acute) Hypertensive emergency (Acute) Dyspepsia (Acute) Discharge planning issues (Acute) DVT (deep venous thrombosis) (Chronic) Pneumonia (Acute) Aragon esophagus (Acute) Diabetic neuropathy (Acute) Traumatic hematoma of right upper arm (Acute) Likely due to trauma sustained in the ambulance Anemia due to acute blood loss (Acute) Symptomatic anemia (Acute) 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) (Acute) Opiate dependence (Chronic) managed on suboxone Hypertension (Chronic) Discharge planning issues (Acute) Aortic insufficiency (Acute) s/p valve replacement Diabetes mellitus (Chronic) Acute anemia (Acute) Medical History 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 Displaced bimalleolar fracture of left ankle s/p infection of wound Tinea corporis Chronic pain Depression Right rotator cuff tear Aortic valve endocarditis MSSA (methicillin susceptible Staphylococcus aureus) septicemia Hepatitis C GERD (gastroesophageal reflux disease) Smoker Surgical History H/O aortic valve replacement Pericardial aortic valve at [facility] - 08/21/2018 - Magna Ease 25 mm S/P hardware removal L ankle. S/P percutaneous endoscopic gastrostomy (PEG) tube placement History of ankle surgery S/P spinal surgery Family History Father No problems noted. Mother COPD (chronic obstructive pulmonary disease) Hypertension Diabetes Heart disease Sister Stroke Social History Smoking/Tobacco Use Status: Current every day Tobacco Type: cigarettes Smoking risk assessment performed?: Yes Alcohol Intake: never Drug use: Daily Substance use type: marijuana and crack/cocaine Details: cocaine binge the last 2 days 09/29/23, on suboxone, last dose yesterday Caregiver/Support person: Yes Household members: friend(s) Housing: house Number of Children: 0 number of grandchildren: 1 current occupation: Disabled Pets and animals: Yes Pets and animals: cat(s) Current gender identity: male What type of physical activity do you participate in: none Do you feel safe at home: Yes Do you feel safe in your relationship?: Yes Additional Social history: Lives with ex- Vanessa.
[2023-09-30 09:35] LABS: HCT 42.9 % (40.0-50.0); HGB 13.7 g/dL (13.5-17.5); MCH 27.6 pg (27.0-33.0); MCHC 31.9 % (32.0-36.0); MCV 86 fL (80-95); MPV 9.2 fL (8.0-11.0); Platelet Count 302 10^3/uL (130-400); RBC 4.97 10^6/uL (4.36-5.78); RDW 16.1 % (11.8-14.1); RDW-SD 50.2 fL
[2023-09-30] MEDS: Furosemide 100 MG/10 ML VIAL 80 MG IVP (09:35)
[2023-09-30 09:38] LABS: WBC 30.76 10^3/uL (4.4-10.8)
[2023-09-30 09:52] LABS: ALT 12 U/L (16-63); AST 15 U/L (15-37); Absolute Lymphocyte Count 0.92 10^3/uL (1.2-3.4); Absolute Monocyte Count 1.54 10^3/uL (0.1-0.8); Albumin 3.1 g/dL (3.4-5.0); Alkaline Phosphatase 82 U/L (46-116); Anion Gap 10.2 mmol/L (3-11); BUN 22 mg/dL (7-18); Bands % 15 %; Bilirubin, Total 0.47 mg/dL (0.2-1.0); CO2 26.8 mmol/L (21.0-32.0); CREATININE 1.6 mg/dL (0.70-1.30); Chloride 102 mmol/L (98-107); Estimated GFR 49.94 (mL/min/1.73m2); Glucose 149 mg/dL (74-106); NT-proBNP 2483 pg/mL (<300); Sodium 139 mmol/L (136-145); Total Protein 7.3 g/dL (6.4-8.2)
[2023-09-30 09:53] LABS: Diff Comment Manual Differential; RBC Morphology Normal
[2023-09-30 10:15] LABS: Bilirubin Negative (Negative); Blood Small (Negative); Clarity Clear (Clear); Glucose 100 mg/dL (Negative); Ketones Negative (Negative); Leukocyte Esterase Negative (Negative); Nitrite Negative (Negative); Urobilinogen 0.2 mg/dL (Up to 0.2)
[2023-09-30] MEDS: CEFEPIME 2 GM in Normal Saline 100 ML IVPB (10:21)
--- NOTE | 2023-09-30 10:23 | NUR.NOTE ---
pt using call [facility] mult times requesting 'my meds', educated that MD was aware and ordering them, pt cont to ask for them, told pt that RN was unable to retrieve them at this time (MD ordered but as scheduled), pt will get them as soon as possible, pt then made rude gesture at RN and said 'fuck you' mult times, educated pt that he would not speak to me in this manner, pt again said 'fuck you, it shouldn't take this long to get my meds', MD aware and came to room, pt then said 'all right i'm good', pt then allowed this RN to start IV abx, pt educated a number of times that he was very sick and his condition warranted our attention and that abx were very important, pt stated 'I just feel sick without my meds', pt's last dose of Suboxone was yesterday, is daily dose.
[2023-09-30 10:25] LABS: Bacteria Negative HPF (Negative); C & S Indicated? No; Casts Negative LPF (Negative); Crystals Negative HPF (Negative); Epithelial Cells Rare HPF (Negative); Mucus Negative (Negative); WBC 0-2 HPF (0-5)
[2023-09-30 10:26] LABS: *AMPHETAMINES SCREEN URINE Negative (Negative); *BARBITURATES SCREEN URINE Negative (Negative); *BENZODIAZEPINES SCREEN URINE Negative (Negative); Cannabinoids THC Positive (Negative); Cocaine Screen,Urine Positive (Negative); METHADONE URINE SCREEN Negative (Negative); OPIATES URINE SCREEN Negative (Negative)
[2023-09-30 10:29] LABS: Tricyclic Antidepressants Negative (Negative)
[2023-09-30 10:49] LABS: Troponin I < 50 ng/L (< or =60)
[2023-09-30] MEDS: dilTIAZem CD 120 MG CAPCR PO (10:56)
[2023-09-30] MEDS: DULoxetine 30 MG CAP PO ×2 (10:56→19:55)
[2023-09-30] MEDS: Aspirin E.C. 81 MG TABEC PO (10:56)
[2023-09-30] MEDS: Lisinopril 20 MG TAB 40 MG PO (10:56)
[2023-09-30] MEDS: Cyanocobalamin 500 MCG TAB 1000 MCG PO (10:56)
[2023-09-30] MEDS: amLODIPine 2.5 MG TAB PO (10:57)
[2023-09-30] MEDS: Buprenorphine/Naloxone 4 mg/1 mg FILM 1 EACH SL (10:57)
[2023-09-30] MEDS: VANCOMYCIN/WATER (PEG) 2 GM/400 ML BAG IV (10:58)
[2023-09-30] MEDS: Enoxaparin 40 MG/0.4 ML SYR SC (12:00)
--- NOTE | 2023-09-30 12:13 | W.PC.ACHO ---
Registration Status: Primary Language: Preferred Language: ED Information & Data Chief Complaint SOB 09/30/23 09:28 Triage Note nausea, lightheaded, SOB 09/30/23 08:28 Subjective SOB with amb 09/30/23 08:46 Medical / Surgical History Cerebral septic emboli GI bleed Osteomyelitis of left fibula DVT, lower extremity Hypomagnesemia Endocarditis G tube feedings Displaced bimalleolar fracture of left ankle Tinea corporis Chronic pain Depression Right rotator cuff tear Aortic valve endocarditis MSSA (methicillin susceptible Staphylococcus aureus) septicemia Hepatitis C GERD (gastroesophageal reflux disease) Smoker (Last Reviewed 09/30/23 @ 09:22 by Trevor Mackenzie MD) H/O aortic valve replacement S/P hardware removal S/P percutaneous endoscopic gastrostomy (PEG) tube placement History of ankle surgery S/P spinal surgery Most Recent Vital Signs Temperature 36.6 C 09/30/23 08:28 Temperature Source Temporal Artery Scan 09/30/23 08:28 Pulse 85 09/30/23 11:16 Pulse 89 09/30/23 11:16 Respiratory Rate 24 09/30/23 11:16 Respiratory Effort Normal, Short of Breath 09/30/23 08:46 Respiratory Depth Normal 09/30/23 08:46 Respiratory Pattern Normal 09/30/23 08:46 Blood Pressure 112/78 09/30/23 11:16 Blood Pressure Mean 87 09/30/23 11:16 Pulse Oximetry 96 09/30/23 11:10 Oxygen Delivery Method Nasal Cannula 09/30/23 10:07 Oxygen Flow Rate 2 09/30/23 10:07 Pain Level 10 09/30/23 09:35 Comment on 2L, lasix given 09/30/23 09:30 Allergies Penicillins Adverse Reaction (Severe, Verified 09/29/23 21:26) Vomiting hydrocodone Adverse Reaction (Intermediate, Verified 09/29/23 21:26) vomiting Precautions Isolation Standard precaution 09/30/23 08:46 Active Medications Generic Name Dose Route Start Last Admin Trade Name Freq PRN Reason Stop Dose Admin Amlodipine Besylate 2.5 mg 09/30/23 11:00 09/30/23 10:57 Amlodipine 2.5 Mg Tab PO 2.5 mg DAILY HAMLET Administration Aspirin 81 mg 09/30/23 11:00 09/30/23 10:56 Aspirin E.C. 81 Mg Tabec PO 81 mg DAILY HAMLET Administration Buprenorphine/Naloxone 1 each 09/30/23 11:00 09/30/23 10:57 Buprenorphine/Naloxone 4 Mg/1 Mg Film SL 1 each DAILY HAMLET Administration Cyanocobalamin 1,000 mcg 09/30/23 11:00 09/30/23 10:56 Cyanocobalamin 500 Mcg Tab PO 1,000 mcg DAILY HAMLET Administration Diltiazem HCl 120 mg 09/30/23 11:00 09/30/23 10:56 Diltiazem Cd 120 Mg Capcr PO 120 mg DAILY HAMLET Administration Duloxetine HCl 30 mg 09/30/23 11:00 09/30/23 10:56 Duloxetine 30 Mg Cap PO 30 mg BID HAMLET Administration Enoxaparin Sodium 40 mg 09/30/23 12:00 09/30/23 12:00 Enoxaparin 40 Mg/0.4 Ml Syr SC 40 mg Q24H HAMLET Administration Lisinopril 40 mg 09/30/23 11:00 09/30/23 10:56 Lisinopril 20 Mg Tab PO 40 mg DAILY HAMLET Administration IV IV Catheter Type [Right Peripheral IV Forearm] IV Catheter Type [Left Peripheral IV Antecubital] IV Catheter Gauge [Right 18 Forearm] IV Catheter Gauge [Left 18 Antecubital] Diet Orders Category Date Time Status Heart Healthy Eating [DIET] Nutrition 09/30/23 Lunch Active Diagnostics 09/30/23 09/30/23 09/30/23 Range/Units 09:52 09:23 09:00 WBC 30.76 H* (4.4-10.8) 10^3/uL RBC 4.97 (4.36-5.78) 10^6/uL Hgb 13.7 (13.5-17.5) g/dL Hct 42.9 (40.0-50.0) % MCV 86 (80-95) fL MCH 27.6 (27.0-33.0) pg MCHC 31.9 L (32.0-36.0) % RDW 16.1 H (11.8-14.1) % Plt Count 302 (130-400) 10^3/uL MPV 9.2 (8.0-11.0) fL Immature Gran % See Differential Neutrophils % 77.0 % Band Neutrophils % 15 % Lymphocytes % 3.0 % Monocytes % 5.0 % Eosinophils % 0.0 % Basophils % 0.0 % Nucleated RBC % 0.0 (0.0-0.3) % Absolute Neutrophils 28.30 H (1.2-6.7) 10^3/uL Absolute Lymphocytes 0.92 L (1.2-3.4) 10^3/uL Absolute Monocytes 1.54 H (0.1-0.8) 10^3/uL Absolute Eosinophils 0.00 (0.0-0.7) 10^3/uL Absolute Basophils 0.00 (0.0-0.2) 10^3/uL RBC Morphology Normal Sodium 139 (136-145) mmol/L Potassium 5.0 D (3.5-5.1) mmol/L Chloride 102 (98-107) mmol/L Carbon Dioxide 26.8 (21.0-32.0) mmol/L Anion Gap 10.2 (3-11) mmol/L BUN 22 H (7-18) mg/dL Creatinine 1.6 H (0.70-1.30) mg/dL Est GFR (CKD-EPI 2020) 49.94 (mL/min/1.73m2) Glucose 149 H (74-106) mg/dL Calcium 9.0 (8.5-10.1) mg/dL Total Bilirubin 0.47 (0.2-1.0) mg/dL AST 15 (15-37) U/L ALT 12 L (16-63) U/L Alkaline Phosphatase 82 (46-116) U/L Troponin I < 50 (< or =60) ng/L NT-Pro-B Natriuret Pep 2483 H (<300) pg/mL Total Protein 7.3 (6.4-8.2) g/dL Albumin 3.1 L (3.4-5.0) g/dL Urine Color Yellow (Yellow) Urine Clarity Clear (Clear) Urine pH 6.0 (5-8) Ur Specific [place] 1.010 (1.005-1.025) Urine Protein 100 H (Neg-Trace) mg/dL Urine Ketones Negative (Negative) mg/dL Urine Blood Small H (Negative) Urine Nitrite Negative (Negative) Urine Bilirubin Negative (Negative) Urine Urobilinogen 0.2 (Up to 0.2) mg/dL Ur Leukocyte Esterase Negative (Negative) Urine RBC 10-20 H (0-2) HPF Urine WBC 0-2 (0-5) HPF Ur Epithelial Cells Rare (Negative) HPF Urine Crystals Negative (Negative) HPF Urine Bacteria Negative (Negative) HPF Urine Casts Negative (Negative) LPF Urine Mucus Negative (Negative) Ur Culture Indicated? No Urine Glucose 100 H (Negative) mg/dL Urine Opiates Screen Negative (Negative) Urine Methadone Screen Negative (Negative) Ur Barbiturates Screen Negative (Negative) Ur Tricyclics Screen Negative (Negative) Ur Amphetamines Screen Negative (Negative) U Benzodiazepines Scrn Negative (Negative) Urine Cocaine Screen Positive A (Negative) Ur THC Screen Positive A (Negative) 09/30/23 09:38 Blood Culture - Pending Blood 09/30/23 09:38 Blood Culture - Pending Blood [id number] Documentation Fingerstick Glucose Start: 09/30/23 10:39 Freq: .AC Status: Active Protocol: Activity Type Activity Date Activity User E-sign Co-sign Detail Recorded Client Recorded Date Recorded By Document 09/30/23 11:57 BKG DAEMON(3) [id number] 09/30/23 12:00 BKG DAEMON(4) Intake and Output - 24 Hour Total 09/30/23 08:18 thru 09/30/23 11:24 Intake Total 100 Output Total 800 Balance -700 Weight 81.647 kg Intake: IV 100 Output: Urine 800 Other: # Voids 2 Falls Risk Assessment History of Falls Previous History 09/30/23 08:46 Contributing Factors Impairments,Medications 09/30/23 08:46 Ambulatory Aids Uses ambulatory device + 09/30/23 08:46 Tubes/Lines None 09/30/23 08:46 Gait Evaluation W/any additional score 09/30/23 08:46 Cognition No cognitive impairment 09/30/23 08:46 Fall Total Score 71 09/30/23 08:46 Level of Risk High Risk 09/30/23 08:46 Problems (Last Reviewed 09/30/23 @ 09:22 by Trevor Mackenzie MD) Hypoxia (Acute) Cocaine overdose (Acute) Chronic venous insufficiency (Acute) Cocaine abuse (Chronic) Notes 09/30/23 10:23 Nursing Notes by Xochitl Wilson pt using call [facility] mult times requesting 'my meds', educated that MD was aware and ordering them, pt cont to ask for them, told pt that RN was unable to retrieve them at this time (MD ordered but as scheduled), pt will get them as soon as possible, pt then made rude gesture at RN and said 'fuck you' mult times, educated pt that he would not speak to me in this manner, pt again said 'fuck you, it shouldn't take this long to get my meds', MD aware and came to room, pt then said 'all right i'm good', pt then allowed this RN to start IV abx, pt educated a number of times that he was very sick and his condition warranted our attention and that abx were very important, pt stated 'I just feel sick without my meds', pt's last dose of Suboxone was yesterday, is daily dose. Initialized on 09/30/23 10:23 - END OF NOTE v v v v v v v v v Sending and/or Receiving Nurses: Please use comment section below to note any information pertinent to the patient hand-off not included above. Information / Comments: Pt admitted to Rm [id number]. Report received from: GEORGIE Leung
[2023-09-30] MEDS: Gabapentin 300 MG CAP 600 MG PO ×3 (12:29→19:55)
[2023-09-30] MEDS: Nicotine 21 MG/24 HR PATCH TD (12:30)
[2023-09-30] MEDS: Insulin Aspart 300 UNITS/3 ML PEN SC (12:56)
--- NOTE | 2023-09-30 15:03 | W.PM.HP.N ---
Date of service: 09/30/23 Time of Service: 15:03 Assessment and Plan Assessment and plan (1) Congestive heart failure (CHF): Status: Chronic Assessment and plan: Acute, associated with acute cocaine overdose/toxicity. History of normal LVEF. He is diuresing after one dose of furosemide. I'm not sure he will need ongoing treatment. For now, monitor on telemetry. He is at risk for endocarditis of course. Will consider further assessment if symptoms do not continue to resolve. Qualifiers: Heart failure type: unspecified Heart failure chronicity: acute Qualified Code(s): I50.9 - Heart failure, unspecified (2) Cocaine overdose: Status: Acute Assessment and plan: I expect acute cardiac effects to resolve over the course of today. Monitor on telemetry. He agrees he should avoid cocaine in the future. Qualifiers: Encounter type: initial encounter Injury intent: accidental or unintentional Qualified Code(s): T40.5X1A - Poisoning by cocaine, accidental (unintentional), initial encounter (3) Opiate dependence: Status: Chronic Assessment and plan: Stable on buprenorphine/naloxone, continue. Qualifiers: Substance use status: uncomplicated Qualified Code(s): F11.20 - Opioid dependence, uncomplicated (4) Diabetes mellitus: Status: Chronic Assessment and plan: On GLP-1 only, continue this and sliding scale prn. 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 He is on PPI and have outpatient follow up. (6) Smoker: Assessment and plan: NRT, discussed cesstation and encouraged (7) Chronic venous insufficiency: Status: Acute Assessment and plan: LE changes c/w statis dermatitis, possibly PAD as well. Follow up as outpatient. (8) Elevated white blood cell count: Status: Acute Assessment and plan: Acute since last night. Blood cultures done and antibiotics given in ED, but he does not have symptoms of infection so I will not continue this for now. I think think is related to acute stress of cocaine, recheck in AM. (9) COPD (chronic obstructive pulmonary disease): Status: Chronic Assessment and plan: Does not appear to be playing a role in acute presentation. Continue controller inhalers (10) DVT prophylaxis: Status: Inactive Assessment and plan: enoxaparin given high risk (11) Abnormal CT scan, kidney: Status: Acute Assessment and plan: No signs active kidney disease, f/u outpatient History of Present Illness History of Present Illness Chief Complaint: short of breath Narrative: 57 yo M with history of smoking, aortic valve replacement, CVA with right sided hemiparesis, opioid use disorder on buprenorphine, and COPD who presented with acute shortness of breath that developed within 30 minutes of using cocaine around 9pm last night. He went to the ED and was found to be hypoxic but with reassuring EKG and troponin x 2. He left AMA shortly after midnight, but never went home and ended up returning to the ED because he wasn't feeling any better. He states he has been in stable remission from opioid use disorder and hadn't used IV in years since his stroke. He used IV cocaise last night (no snorting or smoking), about 1 gram. After about 15 minutes he felt chest heaviness in the midchest to bilateral neck associated with shortness of breath, diaphoresis, lightheadeness, and nausea. He was not able to walk due to intoxication from cocaine. The shortness of breath and chest pressure continued until this morning after he was given furosemide, now feeling better though not quite normal. He states he had not used cocaine in years and will never use it again. He is taking his other medication regularly. He felt well before using the cocaine. He has not had cough, sore throat, or nasal congestion. He has not been producing sputum or hemoptysis since. Review of Systems All systems reviewed & are unremarkable except as noted in HPI and below Constitutional Constitutional: Denies headache(s) Eyes Eyes: Denies loss of vision ENT Ears, Nose, Mouth, and Throat: Denies headache(s) Cardiovascular Cardiovascular: Reports acrocyanosis and Denies leg edema Respiratory Respiratory: Denies cough, Denies hemoptysis, Denies excessive phlegm production and Denies wheezing Gastrointestinal Gastrointestinal: Denies abdominal pain, Reports nausea and Denies vomiting Integumentary/Breasts Skin/Breast: Reports change in pigmentation (feet/lower legs, not acute) and Denies new lesions Neurologic Neurologic: Reports abnormal speech (chronic since stroke, no change), Denies confusion, Denies headache(s), Reports localized weakness (chronic right sided, no change) and Denies loss of vision Psychiatric Psychiatric: Denies confusion Allergic/Immunologic Allergic/Immunologic: Denies wheezing PFSH All Active Problems (Updated 09/30/23 @ 15:37 by John Singh) Abnormal CT scan, kidney (Acute) Elevated white blood cell count (Acute) Congestive heart failure (CHF) (Chronic) Hypoxia (Acute) Cocaine overdose (Acute) Chronic venous insufficiency (Acute) COVID-19 (Acute) COVID (Acute) COPD (chronic obstructive pulmonary disease) (Chronic) Anxiety (Chronic) Leg wound, left (Acute) Medical non-compliance (Acute) Cocaine abuse (Chronic) Dysphagia (Acute) Dyspepsia (Acute) Dyspnea (Acute) Discharge planning issues (Acute) DVT (deep venous thrombosis) (Chronic) Pneumonia (Acute) Diabetic neuropathy (Acute) Aragon esophagus (Acute) Traumatic hematoma of right upper arm (Acute) Likely due to trauma sustained in the ambulance Anemia due to acute blood loss (Acute) Symptomatic anemia (Acute) Acute anemia (Acute) Obstructive sleep apnea (Chronic) Discharge planning issues (Acute) Aortic insufficiency (Acute) s/p valve replacement Opiate dependence (Chronic) managed on suboxone 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) (Acute) Diabetes mellitus (Chronic) Hypertension (Chronic) Medical History Hypertensive emergency 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 Displaced bimalleolar fracture of left ankle s/p infection of wound Tinea corporis Chronic pain Depression Right rotator cuff tear Aortic valve endocarditis MSSA (methicillin susceptible Staphylococcus aureus) septicemia Hepatitis C GERD (gastroesophageal reflux disease) Smoker Surgical History S/P endoscopy H/O aortic valve replacement Pericardial aortic valve at [facility] [place] - 08/21/2018 - Magna Ease 25 mm S/P hardware removal L ankle. S/P percutaneous endoscopic gastrostomy (PEG) tube placement History of ankle surgery S/P spinal surgery Family History Father No problems noted. Mother COPD (chronic obstructive pulmonary disease) Hypertension Diabetes Heart disease Sister Stroke Social History (Updated 09/30/23 @ 15:30 by John Singh) Smoking/Tobacco Use Status: Current every day Tobacco Type: cigarettes Smoking risk assessment performed?: Yes Alcohol Intake: never Drug use: Daily Substance use type: marijuana and crack/cocaine Details: cocaine binge the last 2 days 09/29/23, on suboxone, last dose yesterday Caregiver/Support person: Yes Household members: friend(s) Housing: house Number of Children: 0 number of grandchildren: 1 current occupation: Disabled Pets and animals: Yes Pets and animals: cat(s) Current gender identity: male What type of physical activity do you participate in: none Do you feel safe at home: Yes Do you feel safe in your relationship?: Yes Additional Social history: Lives with ex- Vanessa, who is his caregiver. Lives in private home. Meds Allergies and Home Medications Allergies Allergy/AdvReac Type Severity Reaction Status Date / Time Penicillins AdvReac Severe Vomiting Verified 09/29/23 21:26 hydrocodone AdvReac Intermediate vomiting Verified 09/29/23 21:26 Home Medications ?Medication ?Instructions ?Recorded ?Confirmed ?Type furosemide 40 mg tablet (Lasix) 40 mg PO BID 02/15/19 09/30/23 History esomeprazole magnesium 40 mg 40 mg PO DAILY 05/05/20 09/30/23 History capsule,delayed release (Nexium) aspirin 81 mg tablet 81 mg PO DAILY 08/03/20 09/30/23 History duloxetine 30 mg capsule,delayed 30 mg PO BID 08/03/20 09/30/23 History release acetaminophen 325 mg tablet 1,000 mg PO Q6H PRN 09/27/20 09/30/23 History (Tylenol) umeclidinium 62.5 mcg-vilanterol 1 ea inhalation DAILY 09/27/20 09/30/23 History 25 mcg/actuation powdr for inhalation (Anoro Ellipta) buprenorphine 4 mg-naloxone 1 mg 1 film sublingual DAILY 09/28/20 09/30/23 History sublingual film (Suboxone) albuterol sulfate 90 mcg/actuation 2 inh inhalation Q6H PRN 04/12/22 09/30/23 History aerosol inhaler dulaglutide 4.5 mg/0.5 mL 4.5 mg subcut QWEEK 04/12/22 09/30/23 History subcutaneous pen injector (Trulicity) cyanocobalamin (vitamin B-12) 1,000 mcg PO DAILY 03/06/23 09/30/23 History 1,000 mcg tablet (Vitamin B-12) lisinopril 40 mg tablet 40 mg PO DAILY 06/14/23 09/30/23 History amlodipine 2.5 mg tablet 2.5 mg PO DAILY 09/30/23 09/30/23 History diltiazem HCl 120 mg capsule,24 120 mg PO DAILY 09/30/23 09/30/23 History hr,extended release gabapentin 600 mg tablet 600 mg PO TID 09/30/23 09/30/23 History Exam Narrative Exam Narrative: GEN: Alert and oriented x 4, pleasant and cooperative, gives linear history. No acute distress at rest. HEENT: Head atraumatic. Conjunctiva clear, no icterus. PEERL, EOMI. no rhinorrhea. MMM, OP benign. Neck is supple with no masses or lymphadenopathy, trachea midline LUNGS: CTAB with normal effort, no wheeze CV: RRR with no murmurs, gallops, or rubs. ABD: active bowel sounds, soft, nontender and nondistended. No masses. EXT: no clubbing. edema trace to ankles homa. cyanosis to feet with abnormal cap refill >2 seconds. no stigmata endocarditis. MSK: No joint redness or swelling NEURO: CN 2-12 grossly intact x right facial droop. 3/5 strength right UE extremity, 4/5 RLE vs normal left. Garbled but intelligible speech. No tremor SKIN: No rashes or open wounds. Bilateral dark pink hyperpgimentation shins to ankles. Not hot PSYCH: normal mood and affect Results Imaging Chest x-ray: report reviewed (1. Mild left basilar airspace disease, atelectasis versus pneumonia. 2. Minimal left basilar pleural effusion. ) and image reviewed Abdomen CT scan report/results: report reviewed Additional studies: ECHO 05/17/23: Mild concentric left ventricular hypertrophy. Ejection fraction is 60%. Wall motion is normal Normal right ventricular size and function Both atria are normal in size There is a bioprosthetic aortic valve. Mean gradient is 15 mm Hg. There is no aortic regurgitation Normal mitral valve with trace regurgitation Trace tricuspid regurgitation. Estimated right ventricular systolic pressure is 39 mmHg Ascending aorta 3.71 cm EKG: report reviewed and image reviewed (NSR, nl axis, RBBB from 09/28 EKG resolved, no ischemic changes) Imaging Studies: CT abd/pelvis: 1. Moderate colonic stool, possible constipation. 2. Moderate left and mild right perinephric stranding, new from 07/08/2022. Etiology uncertain, correlate clinically for medical renal disease. No hydronephrosis. No gross renal infarct or pyelonephritis. 3. Mild distal esophageal wall thickening and mildly enlarged paraesophageal node, suspicious for esophagitis. 4. Minimal left basilar pleural effusion. 5. Chronic dependent airspace disease in the posterior left lung base with volume loss, mildly increased from 07/08/2022, probably chronic atelectasis and fibrosis, though cannot exclude chronic or recurrent pneumonia. 6. 7 mm metallic BB foreign body in the lower right rectus abdominis musculature unchanged from 2020. 7. Borderline enlarged inguinal and periesophageal nodes. Labs 09/30/23 09:23 09/30/23 09:23 Labs: Laboratory Results - last 24 hr 09/30/23 09/30/23 09/30/23 09:00 09:23 09:52 WBC 30.76 H* RBC 4.97 Hgb 13.7 Hct 42.9 MCV 86 MCH 27.6 MCHC 31.9 L RDW 16.1 H Plt Count 302 MPV 9.2 Immature Gran % See Differential Neutrophils % 77.0 Band Neutrophils % 15 Lymphocytes % 3.0 Monocytes % 5.0 Eosinophils % 0.0 Basophils % 0.0 Nucleated RBC % 0.0 Absolute Neutrophils 28.30 H Absolute Lymphocytes 0.92 L Absolute Monocytes 1.54 H Absolute Eosinophils 0.00 Absolute Basophils 0.00 RBC Morphology Normal Sodium 139 Potassium 5.0 D Chloride 102 Carbon Dioxide 26.8 Anion Gap 10.2 BUN 22 H Creatinine 1.6 H Est GFR (CKD-EPI 2020) 49.94 Glucose 149 H Calcium 9.0 Total Bilirubin 0.47 AST 15 ALT 12 L Alkaline Phosphatase 82 Troponin I < 50 NT-Pro-B Natriuret Pep 2483 H Total Protein 7.3 Albumin 3.1 L Urine Color Yellow Urine Clarity Clear Urine pH 6.0 Ur Specific Holly 1.010 Urine Protein 100 H Urine Ketones Negative Urine Blood Small H Urine Nitrite Negative Urine Bilirubin Negative Urine Urobilinogen 0.2 Ur Leukocyte Esterase Negative Urine RBC 10-20 H Urine WBC 0-2 Ur Epithelial Cells Rare Urine Crystals Negative Urine Bacteria Negative Urine Casts Negative Urine Mucus Negative Ur Culture Indicated? No Urine Glucose 100 H Urine Opiates Screen Negative Urine Methadone Screen Negative Ur Barbiturates Screen Negative Ur Tricyclics Screen Negative Ur Amphetamines Screen Negative U Benzodiazepines Scrn Negative Urine Cocaine Screen Positive A Ur THC Screen Positive A Last Vital Signs Temp 36.9 C 09/30/23 11:30 Pulse 77 09/30/23 11:30 Resp 22 09/30/23 11:30 BP 135/76 09/30/23 11:30 Pulse Ox 93 09/30/23 13:24 Time Spent Time spent with Patient: 55-74 minutes Time was spent: preparing to see the patient(eg.review tests), obtaining and/or reviewing separately otained hiistory, ordering medications,tests, procedures, referring, communicating with other health respiratory care specialist, indepentently interpreting results and counseling the patient
--- NOTE | 2023-09-30 17:38 | NUR.NOTE ---
PT rang staff site of old IV site noted to be bleeding through dressing, blood noted on bedside tray, gown, chair pt and floor. Dressing changed and pt was helped to clean self. Sani wipes used on chair table, floor. PT provided a new ame. No other needs noted at this time. Nursing Note:
--- NOTE | 2023-09-30 17:39 | RESPIRATORY ---
09/30/2023 Pt states that he has had a sleep study but they did not recommend a CPAP machine; pt does not have/use CPAP.
[2023-09-30] MEDS: Normal Saline Flush 10 ML SYR IVP (19:56)
--- NOTE | 2023-09-30 21:47 | NUR.NOTE ---
Nursing Note:[id number] Patient fingerstick 68. Patient given 180 mL of orange juice and a vanilla ice cream cup. Recheck at 2219
[2023-10-01 06:36] LABS: Abs Immature Grans 0.12 10^3/uL (0.0-0.06); Absolute Basophil Count 0.16 10^3/uL (0.0-0.2); Absolute Eosinophil Count 0.48 10^3/uL (0.0-0.7); Absolute Lymphocyte Count 2.03 10^3/uL (1.2-3.4); Absolute Neutrophil Count 14.06 10^3/uL (1.2-6.7); Basophils % 0.9 %; Eosinophils % 2.7 %; HCT 40.9 % (40.0-50.0); HGB 13.2 g/dL (13.5-17.5); Immature Grans % 0.7 %; Lymphocytes % 11.4 %; MCH 27.3 pg (27.0-33.0); MCHC 32.3 % (32.0-36.0); MCV 85 fL (80-95); MPV 9.4 fL (8.0-11.0); Monocytes % 5.3 %; Platelet Count 303 10^3/uL (130-400); RBC 4.84 10^6/uL (4.36-5.78); RDW 15.9 % (11.8-14.1); RDW-SD 49.5 fL
[2023-10-01 06:37] LABS: Absolute Monocyte Count 0.94 10^3/uL (0.1-0.8)
[2023-10-01 06:51] LABS: Anion Gap 6.1 mmol/L (3-11); BUN 23 mg/dL (7-18); CO2 31.9 mmol/L (21.0-32.0); CREATININE 1.4 mg/dL (0.70-1.30); Calcium 9.3 mg/dL (8.5-10.1); Chloride 102 mmol/L (98-107); Estimated GFR 58.62 (mL/min/1.73m2); Glucose 111 mg/dL (74-106); Potassium 4.7 mmol/L (3.5-5.1); Sodium 140 mmol/L (136-145)
[2023-10-01] MEDS: Buprenorphine/Naloxone 4 mg/1 mg FILM 1 EACH SL (07:25)
[2023-10-01] MEDS: Lisinopril 20 MG TAB 40 MG PO (07:26)
[2023-10-01] MEDS: Aspirin E.C. 81 MG TABEC PO (07:26)
[2023-10-01] MEDS: dilTIAZem CD 120 MG CAPCR PO (07:26)
[2023-10-01] MEDS: DULoxetine 30 MG CAP PO (07:26)
[2023-10-01] MEDS: Cyanocobalamin 500 MCG TAB 1000 MCG PO (07:26)
[2023-10-01] MEDS: Esomeprazole 40 MG CAPCR PO (07:26)
[2023-10-01] MEDS: Gabapentin 300 MG CAP 600 MG PO (07:26)
[2023-10-01] MEDS: Nicotine 21 MG/24 HR PATCH TD (07:47)
[2023-10-01] MEDS: Tiotropium/Olodaterol 10 PUFF INHALER 2 PUFF IH (07:54)
[2023-10-01 08:00] VITALS: BP 108/76; PULSE 71; RESP 20; TEMP 36.5; O2SAT 96
[2023-10-01] MEDS: Normal Saline Flush 10 ML SYR IVP (08:43)
--- NOTE | 2023-10-01 09:49 | DSE_ITS ---
Date of service: 10/01/23 Time of Service: 09:49 DS: Diagnosis Discharge Diagnosis (1) Congestive heart failure (CHF): Status: Chronic (2) Cocaine overdose: Status: Acute (3) Opiate dependence: Status: Chronic (4) Diabetes mellitus: Status: Chronic (5) Aragon esophagus: Status: Acute (6) Smoker: (7) Chronic venous insufficiency: Status: Acute (8) Elevated white blood cell count: Status: Acute (9) COPD (chronic obstructive pulmonary disease): Status: Chronic (10) Abnormal CT scan, kidney: Status: Acute Discharge Plan Disposition Patient Disposition: Home Condition: Fair Discharge Details Reason For Visit: Congestive heart failure,pneumonia,acute kidney in Admit Date/Time: 09/30/23 10:32 Admit Provider: John Singh Attending Provider: John Singh Primary Care Provider: Lexii Luna [facility] Course Hospital Course: 57 yo M with history of smoking, aortic valve replacement, CVA with right sided hemiparesis, opioid use disorder on buprenorphine, and COPD who presented with acute shortness of breath that developed within 30 minutes of using cocaine. He initially presented just after the cocaine injection, but left the ED AMA. He returned about 8 hours later with ongoing shortness of breath. His EKGs at initial and repeat evaluation did not show acute ischemia. Troponins x 2 initially and repeated when he returned were negative. He was hypoxic into the mid to high 80s on room air. BNaP 319 on initial presentation, then 2483. He was admitted for observation and treatment of CHF. He was given furosemide IV in the ED and diuresed and felt better, was off oxygen by the first evening of admission. He did not require further diuresis. His WBC was normal on initial presentation but increased to 30.76 when he was re-evaluated in the ED. CXR and CT did no show clear pneumonia, though they did show chronic evolving antelectasis. He never had sympotms of pneumonia. He received a single dose of cefepime and vancomycin but this was not continued as his shortness of breath resolved quickly and he did not develop symptoms of respiratory infection. Even so, his WBC decrased to 17.8 by the next morning. He had mild ERICK with a creatinine that increased to 1.6 on re-evaluation from 1.2 on initial presentation. There was some stranding around the kidneys on CT, but u/s did not show UTI. There was 1-20 RBC in his urine and 100 protein. His Cr was down to 1.4 the next morning without specific treatment. Overall impression was acute stress from cocaine toxicity. He plans to avoid cocaine in the future. Non-acute CT abnormalities noted, patient to follow up with PCP. Home Meds and New Rx's Prescriptions: New nicotine 21 mg/24 hr Patch 24 Hour 21 mg transdermal DAILY Qty: 30 2RF Continued esomeprazole magnesium [Nexium] 40 mg capsule,delayed release(DR/EC) 40 mg PO DAILY Trulicity 4.5 mg/0.5 mL pen injector 4.5 mg subcut QWEEK albuterol sulfate 90 mcg/actuation HFA aerosol inhaler 2 inh inhalation Q6H PRN aspirin 81 mg Tablet 81 mg PO DAILY duloxetine 30 mg Capsule,Delayed Release(Dr/Ec) 30 mg PO BID acetaminophen [Tylenol] 325 mg tablet 1,000 mg PO Q6H PRN Anoro Ellipta 62.5-25 mcg/actuation blister with device 1 ea INHALATION DAILY Patient Comments: INHALE ONE PUFF BY MOUTH EVERY DAY buprenorphine-naloxone [Suboxone] 4-1 mg film 1 film sublingual DAILY Patient Comments: PLACE ONE FILM UNDER THE TONGUE EVERY DAY cyanocobalamin (vitamin B-12) [Vitamin B-12] 1,000 mcg tablet 1,000 mcg PO DAILY lisinopril 40 mg tablet 40 mg PO DAILY Patient Comments: TAKE ONE TABLET BY MOUTH EVERY DAY furosemide [Lasix] 40 mg Tablet 40 mg PO BID amlodipine 2.5 mg tablet 2.5 mg PO DAILY Patient Comments: TAKE ONE TABLET BY MOUTH EVERY DAY diltiazem HCl 120 mg capsule,extended release 24 hr 120 mg PO DAILY Patient Comments: TAKE ONE CAPSULE BY MOUTH EVERY DAY FOR HIGH BLOOD PRESSURE AND HIGH HEART RATE gabapentin 600 mg tablet 600 mg PO TID Patient Comments: TAKE ONE TABLET BY MOUTH THREE TIMES A DAY Discharge Instructions Additional Instructions: avoid cocaine completely Try to continue to stay away from smoking as well. We did send patches to [facility]. You need labs in 1 week and follow up at [facility] after the labs are done Activity:: Activity as Tolerated Equipment/Supplies:: No Equipment Needed Diet:: Carb Counting Discharge Orders Discharge Orders: Discharge Order (Routine); Ordered 10/01/23 Ordered By: John Singh Other Ambulatory Orders: Basic Metabolic Panel (Routine) Timeframe: 1 Week Facility: [facility] - Location: Laboratory Outpatient - [facility] Ordered By: John Singh Complete Blood Count w/Diff (Routine) Timeframe: 1 Week Facility: [facility] - Location: Laboratory Outpatient - [facility] Ordered By: John Singh DS: Summary Time Spent with Patient providing and/or coordinating discharge services: Greater than 30 minutes Status at Discharge Functional status at discharge: independent ambulation Overall status at discharge: patient is back to baseline Mental Status: mental status grossly normal Speech and Movement: speech and movement normal Mood: congruent mood Affect: normal affect Quality:SDOH Health Related Social Needs: No Data to Display Exam Narrative Exam Narrative: GEN: Alert and oriented, No acute distress at rest. LUNGS: CTAB with normal effort, no wheeze CV: RRR with no murmurs, gallops, or rubs. ABD: active bowel sounds, soft, nontender and nondistended. No masses. EXT: no clubbing. edema trace to ankles homa. improved cyanosis to feet with cap refill around 2 seconds. no stigmata endocarditis. MSK: No joint redness or swelling NEURO: no change to chronic right hemiparesis SKIN: No rashes or open wounds. Bilateral dark pink hyperpgimentation shins to ankles. Not hot PSYCH: normal mood and affect Psych Mental Status: mental status grossly normal Speech and Movement: speech and movement normal Mood: congruent mood Affect: normal affect DS: Data Vitals/I&O Vitals and I&O: Vital Signs Temperature 36.1 C L 09/30/23 23:04 Temperature Source Tympanic 09/30/23 23:04 Pulse 75 09/30/23 23:04 Pulse Rhythm Regular 09/30/23 21:01 Pulse 89 09/30/23 11:16 Respiratory Rate 19 09/30/23 23:04 Respiratory Effort Normal, Non-Labored 09/30/23 21:01 Respiratory Depth Normal 09/30/23 21:01 Respiratory Pattern Normal 09/30/23 21:01 Blood Pressure 136/81 09/30/23 23:04 Blood Pressure Mean 87 09/30/23 11:16 Pulse Oximetry 94 09/30/23 23:04 Oxygen Delivery Method Room Air 09/30/23 23:04 Oxygen Flow Rate 0 09/30/23 23:04 Pain Level 0 09/30/23 17:38 Comment Pt reports feeling SOB and needing oxygen. O2 sat 93%. RN will continue to monitor pt on RA. 09/30/23 13:24 Comment on 2L, lasix given 09/30/23 09:30 Intake & Output 09/30/23 09/30/23 10/01/23 11:59 23:59 11:59 Intake Total 340 / 1830 1490 / 1830 Output Total 1250 / 1730 480 / 1730 Balance -910 / 100 1010 / 100 Weight 81.647 kg Intake: IV 100 / 510 410 / 510 Oral 240 / 1320 1080 / 1320 Output: Urine 1250 / 1730 480 / 1730 Other: Urine Color Pale Yellow Urine Appearance Clear Clear Urine Odor Normal Strong Comment Voids x2 in urinal. Stool Size Moderate Stool Characteristics Brown Voiding Methods Urinal Urinal # Voids 2 Data Completed and Pending Labs on day of discharge: Labs from last 24 hours 10/01/23 09/30/23 09/30/23 06:25 09:52 09:23 WBC 17.80 H 30.76 H* RBC 4.84 4.97 Hgb 13.2 L 13.7 Hct 40.9 42.9 MCV 85 86 MCH 27.3 27.6 MCHC 32.3 31.9 L RDW 15.9 H 16.1 H Plt Count 303 302 MPV 9.4 9.2 Immature Gran % 0.7 See Differential Neutrophils % 79.0 77.0 Band Neutrophils % 15 Lymphocytes % 11.4 3.0 Monocytes % 5.3 5.0 Eosinophils % 2.7 0.0 Basophils % 0.9 0.0 Nucleated RBC % 0.0 0.0 Absolute Neutrophils 14.06 H 28.30 H Absolute Lymphocytes 2.03 0.92 L Absolute Monocytes 0.94 H 1.54 H Absolute Eosinophils 0.48 0.00 Absolute Basophils 0.16 0.00 RBC Morphology Normal Sodium 140 139 Potassium 4.7 5.0 D Chloride 102 102 Carbon Dioxide 31.9 26.8 Anion Gap 6.1 10.2 BUN 23 H 22 H Creatinine 1.4 H 1.6 H Est GFR (CKD-EPI 2020) 58.62 49.94 Glucose 111 H 149 H Calcium 9.3 9.0 Total Bilirubin 0.47 AST 15 ALT 12 L Alkaline Phosphatase 82 Troponin I NT-Pro-B Natriuret Pep 2483 H Total Protein 7.3 Albumin 3.1 L Urine Color Yellow Urine Clarity Clear Urine pH 6.0 Ur Specific Hutchinson 1.010 Urine Protein 100 H Urine Ketones Negative Urine Blood Small H Urine Nitrite Negative Urine Bilirubin Negative Urine Urobilinogen 0.2 Ur Leukocyte Esterase Negative Urine RBC 10-20 H Urine WBC 0-2 Ur Epithelial Cells Rare Urine Crystals Negative Urine Bacteria Negative Urine Casts Negative Urine Mucus Negative Ur Culture Indicated? No Urine Glucose 100 H Urine Opiates Screen Negative Urine Methadone Screen Negative Ur Barbiturates Screen Negative Ur Tricyclics Screen Negative Ur Amphetamines Screen Negative U Benzodiazepines Scrn Negative Urine Cocaine Screen Positive A Ur THC Screen Positive A 09/30/23 09:00 WBC RBC Hgb Hct MCV MCH MCHC RDW Plt Count MPV Immature Gran % Neutrophils % Band Neutrophils % Lymphocytes % Monocytes % Eosinophils % Basophils % Nucleated RBC % Absolute Neutrophils Absolute Lymphocytes Absolute Monocytes Absolute Eosinophils Absolute Basophils RBC Morphology Sodium Potassium Chloride Carbon Dioxide Anion Gap BUN Creatinine Est GFR (CKD-EPI 2020) Glucose Calcium Total Bilirubin AST ALT Alkaline Phosphatase Troponin I < 50 NT-Pro-B Natriuret Pep Total Protein Albumin Urine Color Urine Clarity Urine pH Ur Specific Hutchinson Urine Protein Urine Ketones Urine Blood Urine Nitrite Urine Bilirubin Urine Urobilinogen Ur Leukocyte Esterase Urine RBC Urine WBC Ur Epithelial Cells Urine Crystals Urine Bacteria Urine Casts Urine Mucus Ur Culture Indicated? Urine Glucose Urine Opiates Screen Urine Methadone Screen Ur Barbiturates Screen Ur Tricyclics Screen Ur Amphetamines Screen U Benzodiazepines Scrn Urine Cocaine Screen Ur THC Screen 09/30/23 09:50 Blood Blood Culture - Pending 09/30/23 09:23 Blood Blood Culture - Pending Preliminary micro results at discharge 09/30/23 09:50 Blood Culture - Pending Blood 09/30/23 09:23 Blood Culture - Pending Blood PFSH All Active Problems (Updated 09/30/23 @ 15:37 by John Singh) Abnormal CT scan, kidney (Acute) Elevated white blood cell count (Acute) Congestive heart failure (CHF) (Chronic) Hypoxia (Acute) Cocaine overdose (Acute) Chronic venous insufficiency (Acute) COVID-19 (Acute) COVID (Acute) COPD (chronic obstructive pulmonary disease) (Chronic) Anxiety (Chronic) Leg wound, left (Acute) Medical non-compliance (Acute) Cocaine abuse (Chronic) Dysphagia (Acute) Dyspepsia (Acute) Dyspnea (Acute) Discharge planning issues (Acute) DVT (deep venous thrombosis) (Chronic) Pneumonia (Acute) Diabetic neuropathy (Acute) Aragon esophagus (Acute) Traumatic hematoma of right upper arm (Acute) Likely due to trauma sustained in the ambulance Anemia due to acute blood loss (Acute) Symptomatic anemia (Acute) Acute anemia (Acute) Obstructive sleep apnea (Chronic) Discharge planning issues (Acute) Aortic insufficiency (Acute) s/p valve replacement Opiate dependence (Chronic) managed on suboxone 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) (Acute) Diabetes mellitus (Chronic) Hypertension (Chronic) Medical History Hypertensive emergency 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 Displaced bimalleolar fracture of left ankle s/p infection of wound Tinea corporis Chronic pain Depression Right rotator cuff tear Aortic valve endocarditis MSSA (methicillin susceptible Staphylococcus aureus) septicemia Hepatitis C GERD (gastroesophageal reflux disease) Smoker Surgical History S/P endoscopy H/O aortic valve replacement Pericardial aortic valve at [facility] - 08/21/2018 - Magna Ease 25 mm S/P hardware removal L ankle. S/P percutaneous endoscopic gastrostomy (PEG) tube placement History of ankle surgery S/P spinal surgery Family History Father No problems noted. Mother COPD (chronic obstructive pulmonary disease) Hypertension Diabetes Heart disease Sister Stroke Social History (Updated 09/30/23 @ 15:30 by John Singh) Smoking/Tobacco Use Status: Current every day Tobacco Type: cigarettes Smoking risk assessment performed?: Yes Alcohol Intake: never Drug use: Daily Substance use type: marijuana and crack/cocaine Details: cocaine binge the last 2 days 09/29/23, on suboxone, last dose yesterday Caregiver/Support person: Yes Household members: friend(s) Housing: house Number of Children: 0 number of grandchildren: 1 current occupation: Disabled Pets and animals: Yes Pets and animals: cat(s) Current gender identity: male What type of physical activity do you participate in: none Do you feel safe at home: Yes Do you feel safe in your relationship?: Yes Additional Social history: Lives with ex- Vanessa, who is his caregiver. Lives in private home. Time Spent with Patient Time Spent with Patient: <45 minutes Time was spent: preparing to see the patient(eg.review tests), obtaining and/or reviewing separately otained hiistory, ordering medications,tests, procedures, referring, communicating with other health child daycare worker, indepentently interpreting results and counseling the patient
--- NOTE | 2023-10-06 14:26 | NUR.NOTE ---
Access chart to reconcile EKG orders and number of EKG's in [facility]. Duplicate order cancelled. Nursing Note:
== END 2023-10-01 12:02 | disposition home or self-care (01) | DRG 918 ==
LOC: ER 09:28 → MS 11:39
PROVIDERS: Admitting Provider Family Medicine; Emergency Provider Emergency Medicine; PCP Nurse Practitioner Family; Visit Provider Family Medicine
DX: T40.5X1A Poisoning by cocaine, accidental (unintentional), initial encounter (principal); N17.9 Acute kidney failure, unspecified; I69.351 Hemiplegia and hemiparesis following cerebral infarction affecting right dominant side; F11.20 Opioid dependence, uncomplicated; F14.10 Cocaine abuse, uncomplicated; I50.9 Heart failure, unspecified; E11.40 Type 2 diabetes mellitus with diabetic neuropathy, unspecified; F17.210 Nicotine dependence, cigarettes, uncomplicated; K22.70 Barrett's esophagus without dysplasia; I87.2 Venous insufficiency (chronic) (peripheral); D72.829 Elevated white blood cell count, unspecified; J44.9 Chronic obstructive pulmonary disease, unspecified; R09.02 Hypoxemia; Z79.899 Other long term (current) drug therapy; I11.0 Hypertensive heart disease with heart failure; I25.10 Atherosclerotic heart disease of native coronary artery without angina pectoris; Z95.1 Presence of aortocoronary bypass graft; G47.33 Obstructive sleep apnea (adult) (pediatric); F41.9 Anxiety disorder, unspecified; D64.9 Anemia, unspecified; Z95.4 Presence of other heart-valve replacement; Z86.718 Personal history of other venous thrombosis and embolism; F32.A Depression, unspecified; K21.9 Gastro-esophageal reflux disease without esophagitis
CPT/HCPCS: 00123; 36415; 80048; 80053; 80307; 87040; 93005; 94640; 96365; 96367; 96375; 99285; J1650; 81003; 81015; 83880; 84484; 85025; 93010; 94664; 99222; 99238; J0692; J1815; J1940; J3372

== ENCOUNTER 2023-10-11 09:29 | Emergency (ER) | payer MEDICAID, SELFPAY ==
[2023-10-11] VITALS (23 sets, daily range): BP systolic 162–199; BP diastolic 71–103; PULSE 42–84; RESP 9–32; TEMP 35.2; O2SAT 88–97
--- NOTE | 2023-10-11 09:30 | RT.EKG_ITS ---
APPROVED REPORT Exam: Resting ECG Reason for Exam: dizziness Patient Location: E HR:43 bpm ECG Measurements Heart Rate 43 AXIS OR 109 P -4 QRSd 120 QRS 54 QT 472 T 95 QTc 402 Conclusion Sinus bradycardia...rate< 60 IVCD, consider RBBB...QRSd>120mS, terminal axis(90,270) Nonspecific T abnormalities, lateral leads...T <-0.10mV, I aVL V5 V6 Rhythm sinus maya, normal axis, consider lateral deprssions
--- NOTE | 2023-10-11 09:36 | W.ED.GENAD ---
Discharge Plan Disposition Patient Disposition: Home Condition: Stable Discharge Details Clinical Impression: Cellulitis of foot Primary Care Provider: Lexii Luna ED Provider: Rohan Lindquist Home Meds and New Rx's Prescriptions: New cephalexin 500 mg capsule 500 mg PO QID 10 Days Qty: 40 0RF Continued esomeprazole magnesium [Nexium] 40 mg capsule,delayed release(DR/EC) 40 mg PO DAILY Trulicity 4.5 mg/0.5 mL pen injector 4.5 mg subcut QWEEK albuterol sulfate 90 mcg/actuation HFA aerosol inhaler 2 inh inhalation Q6H PRN aspirin 81 mg Tablet 81 mg PO DAILY duloxetine 30 mg Capsule,Delayed Release(Dr/Ec) 30 mg PO BID acetaminophen [Tylenol] 325 mg tablet 1,000 mg PO Q6H PRN Anoro Ellipta 62.5-25 mcg/actuation blister with device 1 ea INHALATION DAILY Patient Comments: INHALE ONE PUFF BY MOUTH EVERY DAY buprenorphine-naloxone [Suboxone] 4-1 mg film 1 film sublingual DAILY Patient Comments: PLACE ONE FILM UNDER THE TONGUE EVERY DAY cyanocobalamin (vitamin B-12) [Vitamin B-12] 1,000 mcg tablet 1,000 mcg PO DAILY lisinopril 40 mg tablet 40 mg PO DAILY Patient Comments: TAKE ONE TABLET BY MOUTH EVERY DAY furosemide [Lasix] 40 mg Tablet 40 mg PO BID amlodipine 2.5 mg tablet 2.5 mg PO DAILY Patient Comments: TAKE ONE TABLET BY MOUTH EVERY DAY diltiazem HCl 120 mg capsule,extended release 24 hr 120 mg PO DAILY Patient Comments: TAKE ONE CAPSULE BY MOUTH EVERY DAY FOR HIGH BLOOD PRESSURE AND HIGH HEART RATE gabapentin 600 mg tablet 600 mg PO TID Patient Comments: TAKE ONE TABLET BY MOUTH THREE TIMES A DAY nicotine 21 mg/24 hr Patch 24 Hour 21 mg transdermal DAILY Qty: 30 2RF Discharge Instructions Instructions: Cephalexin, Cellulitis (Skin Infection), Adult ED Additional Instructions: You were seen in the emergency department with generalized weakness and some redness and swelling to your bilateral feet, there is no sign of sepsis on your workup, you had some abdominal tenderness with a negative abdominal CT, there is no acute abnormality of your labs to suspect abdominal emergency, cardiac workup is negative, chest x-ray shows no pneumonia. You do not need to be admitted to the hospital, we will give you a supply of Keflex antibiotic sent to [facility] in [place] to treat possible cellulitis of bilateral feet. Please follow-up with your primary care provider, please return to the emergency department for any emergent concerns. Referrals: Lexii Luna [Primary Care Provider] - Discharge Data Discharge Date/Time-TO BE ENTERED AT DEPARTURE: 10/11/23 13:13 HPI General Date/Time Provider Initiated Documentation: 10/11/23 09:36. HPI Narrative: 58 year-old male presents to ED today by EMS with a chief complaint of generalized weakness and lower leg pain, thinks possible infection with onset unclear- patient is a poor historian, states a while, slurred speech at baseline from prior stroke history with chronic weakness. Quality described as generalized weakness and lower leg pain acute on chronic, no radiation to chest pain, shortness of breath, fevers, draining lesions of legs, intractable nausea/vomiting, black/bloody diarrhea, endorses chills. Severity is described as moderate. Palliating factors include nothing attempted. Provoking factors include nothing specific. Events leading up to the incident/Associated Symptoms: Patient denies intoxication. Patient endorses prior cerebral septic emboli, chronic leg infections. Patient not anticoagulated. Related Data Home Medications ?Medication ?Instructions ?Recorded ?Confirmed furosemide 40 mg tablet (Lasix) 40 mg PO BID 02/15/19 10/11/23 esomeprazole magnesium 40 mg 40 mg PO DAILY 05/05/20 10/11/23 capsule,delayed release (Nexium) aspirin 81 mg tablet 81 mg PO DAILY 08/03/20 10/11/23 duloxetine 30 mg capsule,delayed 30 mg PO BID 08/03/20 10/11/23 release acetaminophen 325 mg tablet 1,000 mg PO Q6H PRN 09/27/20 10/11/23 (Tylenol) umeclidinium 62.5 mcg-vilanterol 1 ea inhalation DAILY 09/27/20 10/11/23 25 mcg/actuation powdr for inhalation (Anoro Ellipta) buprenorphine 4 mg-naloxone 1 mg 1 film sublingual DAILY 09/28/20 10/11/23 sublingual film (Suboxone) albuterol sulfate 90 mcg/actuation 2 inh inhalation Q6H PRN 04/12/22 10/11/23 aerosol inhaler dulaglutide 4.5 mg/0.5 mL 4.5 mg subcut QWEEK 04/12/22 10/11/23 [facility] cyanocobalamin (vitamin B-12) 1,000 mcg PO DAILY 03/06/23 10/11/23 1,000 mcg tablet (Vitamin B-12) lisinopril 40 mg tablet 40 mg PO DAILY 06/14/23 10/11/23 amlodipine 2.5 mg tablet 2.5 mg PO DAILY 09/30/23 10/11/23 diltiazem HCl 120 mg capsule,24 120 mg PO DAILY 09/30/23 10/11/23 hr,extended release gabapentin 600 mg tablet 600 mg PO TID 09/30/23 10/11/23 nicotine 21 mg/24 hr daily 21 mg transdermal DAILY #30 ea 10/01/23 10/11/23 transdermal patch cephalexin 500 mg capsule 500 mg PO QID cellulitis 10 days 10/11/23 #40 caps Previous Rx's ?Medication ?Instructions ?Recorded nicotine 21 mg/24 hr daily 21 mg transdermal DAILY #30 ea 10/01/23 transdermal patch cephalexin 500 mg capsule 500 mg PO QID cellulitis 10 days 10/11/23 #40 caps Allergies Allergy/AdvReac Type Severity Reaction Status Date / Time Penicillins AdvReac Severe Vomiting Verified 10/11/23 09:32 hydrocodone AdvReac Intermediate vomiting Verified 10/11/23 09:32 General Stated Complaint: GenMedical LILLIAN: 3 Review of Systems All systems reviewed & are unremarkable except as noted in HPI and below Exam Narrative Exam Narrative: GENERAL APPEARANCE: Drowsy, non-toxic, awake and alert, atraumatic, no acute distress. SKIN: Warm, pink, dry, intact, innumerous scabs/lesions of varying ages, chronic, bilateral legs are erythematous with some mild edema in the feet HEAD: Normocephalic, atraumatic, normal hair distribution for gender/age. EYES: Normal conjunctiva, no exudates on lids/lashes. ENT: Nares patent, no circumoral cyanosis, no facial swelling NECK: Supple, trachea midline, painless cervical ROM. LUNGS/CHEST: Lungs CTA bilaterally- no rhonchi/rales/wheezes diffusely, non-labored respirations, normal A/P diameter, symmetrical expansion, no chest wall deformity HEART (CV/PV): Regular rate and rhythm without murmur, no peripheral edema, no JVD. ABDOMEN: Soft, non-distended, no guarding, RUQ tenderness without Rain's sign, no CVA tenderness bilaterally. MSK: Normal ROM, no swelling/deformity to bilateral UEs or LEs, moving all extremities without weakness, no cyanosis, spine midline without tenderness, normal curvature. NEURO: Mental Status AAOx4 - alert to person, place, time, events No facial droop, no forehead involvement, chronic R sided facial droop Motor: No focal weakness - strength baseline, asymmetric from chronic deficit but baseline, in bilateral UEs and LEs, proximal and distal. Sensory: sensation intact to light touch globally. Gait normal: patient ambulated without ataxia into ED room. PSYCH: euthymic, cooperative, pleasant, appropriate speech- baseline slurred speech Course Vital Signs Vital signs: Vital Signs Temperature 35.2 C L 10/11/23 09:32 Pulse 66 10/11/23 09:32 Respiratory Rate 18 10/11/23 09:32 Blood Pressure 166/103 H 10/11/23 09:32 Pulse Oximetry 88 L 10/11/23 09:32 Temperature 35.2 C L 10/11/23 09:32 Temperature Source Temporal Artery Scan 10/11/23 09:32 Pulse 66 10/11/23 09:32 Respiratory Rate 18 10/11/23 09:32 Blood Pressure 166/103 H 10/11/23 09:32 Pulse Oximetry 88 L 10/11/23 09:32 Oxygen Delivery Method Room Air 10/11/23 09:32 Oxygen Flow Rate 0 10/11/23 09:32 Pain Level 8 10/11/23 09:32 Medical Decision Making This dictation utilizes [id number] dictation software and may contain unedited grammatical errors. 58 year-old male presents to ED today by EMS with a chief complaint of generalized weakness and lower leg pain, thinks possible infection with onset unclear- patient is a poor historian, states a while, slurred speech at baseline from prior stroke history with chronic weakness. Quality described as generalized weakness and lower leg pain acute on chronic, no radiation to chest pain, shortness of breath, fevers, draining lesions of legs, intractable nausea/vomiting, black/bloody diarrhea, endorses chills. Severity is described as moderate. Palliating factors include nothing attempted. Provoking factors include nothing specific. Events leading up to the incident/Associated Symptoms: Patient denies intoxication. Patients' medical history: History of stroke status post cerebral septic emboli, history of IVDU, endocarditis, hepatitis C, chronic venous insufficiency, COPD, CHF, DVT, diabetic neuropathy, anemia, GI bleeding. Pertinent exam findings / vital signs include RUQ tenderness without Rain sign, nontoxic vitals, chronic neurodeficits, afebrile. Differential / pathologies of concern include anemia, infectious etiology like sepsis or cellulitis, ACS, intoxication, opiate withdrawal, biliary colic, renal colic, dehydration. Diagnostic studies of: -CBC, CMP, lactate, lipase, troponin I, procalcitonin, UA, UDS, ETOH level, blood cultures, CT abdomen/pelvis with contrast, x-ray chest. -CBC shows no leukocytosis, no anemia -Lactate and procalcitonin negative-do not suspect sepsis -CMP shows baseline creatinine of 1.6, no electrolyte abnormalities -Troponin negative -Lipase negative -UA shows no actionable abnormalities, no infection -UDS shows positive for THC and cocaine -Alcohol level negative Interventions of: -IVF. ED Course/Assessment/Plan: Patient with chronic deficits and history of significant drug use with cerebral septic emboli and stroke, endocarditis, hepatitis C, CHF, COPD presents with chronic appearing diabetic lower extremities with some mild erythema and swelling in the feet, workup is negative for serious signs of infection like sepsis, no white count, CMP is baseline, troponin is negative with greater than 6-hour onset, lipase and LFTs are benign, CT shows no acute abnormality in the abdomen, x-ray chest is negative for any pneumonia, patient appears drowsy and was sleeping through some of the visit, endorses he is at his baseline with his neuroexam and deficits confirms chronicity in nature, alcohol level negative, UDS does show THC and cocaine though he denies any cocaine use. He was feeling relatively better after some IV fluid, plan to treat him with cephalexin for mild cellulitis of lower extremities and recommend he follow-up with his primary care provider with strict return criteria for any profound lethargy, worsening despite treatment. Findings not consistent with sepsis, pneumonia, acute emergent abdominal pathology, patient's drowsiness was likely due to recent mild dehydration. Disposition of Cellulitis of Foot. Patient verbalized understanding of the plan and return to ED criteria and engaged in shared decision making. Medical Records Medical records reviewed: Yes I reviewed the patient's medical records. Imaging Data Radiologic Study: Attestation: I personally reviewed and interpreted this imaging study as follows: Imaging: CT Scan Radiologist's impression: EXAM: CT ABDOMEN PELVIS W CLINICAL HISTORY: RUQ tenderness, fevers. TECHNIQUE: Imaging Protocol: Axial computed tomography images with coronal and sagittal reformatted images were created and reviewed CONTRAST MATERIAL: Intravenous: Omnipaque 350 Contrast volume:100 ml Oral: / no COMPARISON: CT CT ABDOMEN PELVIS W from 09/29/2023 FINDINGS: ABDOMEN and PELVIS: Exam mildly limited by artifact due to patient arm position as well as motion. Patient unable to follow breathing instructions. Lung Bases: Some interval improvement in right lower lobe infiltrate/atelectasis. Liver: Normal density. No suspicious mass. Calcified granulomas. Gallbladder and biliary tract: No radiodense calculus. No biliary dilation. Pancreas: Normal density. No abnormal calcifications or inflammatory process. No evidence of mass. Spleen: Calcified granulomas. Kidneys: Normal size, contour and axis. No radiodense stones. No obstructive uropathy. No suspicious masses seen. Left perinephric stranding no longer present. Adrenal glands: No masses seen. Vasculature: Abdominal aorta non-dilated. Soft tissues: Metallic density again noted in right rectus abdominus muscle. Bladder: Mild wall thickening. No calculi.No focal mass. Bowel: No obstruction. No bowel wall thickening. Appendix normal. Mild diverticulosis. No evidence of diverticulitis. Peritoneal cavity: No ascites. No focal collection. No mesenteric inflammatory response. Bones: Unremarkable for age. Reproductive organs: Unremarkable. Lymph nodes: No pathologically enlarged lymph nodes. IMPRESSION:: No acute abnormality in the abdomen or pelvis. Radiologic Study #2: Attestation: I personally reviewed and interpreted this imaging study as follows: Imaging: X-Ray Radiologist's impression: EXAM: XR CHEST 2V PA LATERAL CLINICAL HISTORY: sepsis TECHNIQUE: 2D digital imaging was performed. Two views. COMPARISON: CR XR CHEST 2V PA LATERAL from 03/06/2023 CR,XR XR PORTABLE CHEST AP from 09/29/2023 FINDINGS: HEART: Normal size. Aorta: Not dilated. Aortic valve prosthesis. PULMONARY VASCULATURE: Normal. MEDIASTINUM: Unremarkable. LUNGS: Clear. PLEURAL SPACE: No pleural effusion or pneumothorax. Minimal chronic blunting of the left costophrenic angle. BONE:Unremarkable for age. Sternal wires. SOFT TISSUES: Unremarkable. IMPRESSION: No acute abnormality. Lab Data Lab results reviewed: Yes I reviewed the patient's lab results. Labs: 10/11/23 11:16 Blood Blood Culture - Pending 10/11/23 10:21 Blood Blood Culture - Pending Laboratory Tests Range/Units 10/11/23 10/11/23 10:21 11:02 WBC (4.4-10.8) 10^3/uL 8.55 RBC (4.36-5.78) 10^6/uL 5.42 Hgb (13.5-17.5) g/dL 14.8 Hct (40.0-50.0) % 46.6 MCV (80-95) fL 86 MCH (27.0-33.0) pg 27.3 MCHC (32.0-36.0) % 31.8 L RDW (11.8-14.1) % 16.1 H Plt Count (130-400) 10^3/uL 437 H MPV (8.0-11.0) fL 8.9 Immature Gran % % 0.5 Neutrophils % % 70.5 Lymphocytes % % 19.9 Monocytes % % 4.7 Eosinophils % % 3.0 Basophils % % 1.4 Nucleated RBC % (0.0-0.3) % 0.0 Absolute Neutrophils (1.2-6.7) 10^3/uL 6.03 Absolute Lymphocytes (1.2-3.4) 10^3/uL 1.70 Absolute Monocytes (0.1-0.8) 10^3/uL 0.40 Absolute Eosinophils (0.0-0.7) 10^3/uL 0.26 Absolute Basophils (0.0-0.2) 10^3/uL 0.12 VBG Lactate (0.6-1.4) mmol/L 1.1 Sodium (136-145) mmol/L 140 Potassium (3.5-5.1) mmol/L 4.1 Chloride (98-107) mmol/L 105 Carbon Dioxide (21.0-32.0) mmol/L 25.8 Anion Gap (3-11) mmol/L 9.2 BUN (7-18) mg/dL 15 Creatinine (0.70-1.30) mg/dL 1.6 H Est GFR (CKD-EPI 2020) (mL/min/1.73m2) 49.63 Glucose (74-106) mg/dL 100 Calcium (8.5-10.1) mg/dL 10.0 Total Bilirubin (0.2-1.0) mg/dL 0.53 Conjugated Bilirubin (0.0-0.2) mg/dL 0.1 AST (15-37) U/L 11 L ALT (16-63) U/L 13 L Alkaline Phosphatase (46-116) U/L 79 Troponin I (< or =60) ng/L < 50 Total Protein (6.4-8.2) g/dL 8.8 H Albumin (3.4-5.0) g/dL 4.1 Lipase (16-77) U/L 29 Procalcitonin ng/mL < 0.1 Urine Color (Yellow) Yellow Urine Clarity (Clear) Clear Urine pH (5-8) 7.0 Ur Specific [place] (1.005-1.025) 1.025 Urine Protein (Neg-Trace) mg/dL 30 H Urine Ketones (Negative) mg/dL Trace H Urine Blood (Negative) Negative Urine Nitrite (Negative) Negative Urine Bilirubin (Negative) Negative Urine Urobilinogen (Up to 0.2) mg/dL 0.2 Ur Leukocyte Esterase (Negative) Negative Urine RBC (0-2) HPF 0-2 Urine WBC (0-5) HPF 0-2 Ur Epithelial Cells (Negative) HPF Negative Urine Crystals (Negative) HPF Negative Urine Bacteria (Negative) HPF Rare Urine Casts (Negative) LPF Negative Urine Mucus (Negative) Trace Ur Culture Indicated? No Urine Glucose (Negative) mg/dL 100 H Urine Opiates Screen (Negative) Negative Urine Methadone Screen (Negative) Negative Ur Barbiturates Screen (Negative) Negative Ur Tricyclics Screen (Negative) Negative Ur Amphetamines Screen (Negative) Negative U Benzodiazepines Scrn (Negative) Negative Urine Cocaine Screen (Negative) Positive A Ur THC Screen (Negative) Positive A Ethyl Alcohol (<10) mg/dL < 3.0 Quality:SDOH Health Related Social Needs: No Data to Display PFSH All Active Problems (Updated 10/11/23 @ 12:53 by CHIKI Ramey) Cellulitis of foot (Acute) Abnormal CT scan, kidney (Acute) Elevated white blood cell count (Acute) Congestive heart failure (CHF) (Chronic) Chronic venous insufficiency (Acute) COVID-19 (Acute) COVID (Acute) Obstructive sleep apnea (Chronic) COPD (chronic obstructive pulmonary disease) (Chronic) Anxiety (Chronic) Leg wound, left (Acute) Medical non-compliance (Acute) Dysphagia (Acute) Dyspnea (Acute) Dyspepsia (Acute) Discharge planning issues (Acute) DVT (deep venous thrombosis) (Chronic) Pneumonia (Acute) Aragon esophagus (Acute) Diabetic neuropathy (Acute) Traumatic hematoma of right upper arm (Acute) Likely due to trauma sustained in the ambulance Anemia due to acute blood loss (Acute) Symptomatic anemia (Acute) 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) (Acute) Opiate dependence (Chronic) managed on suboxone Hypertension (Chronic) Discharge planning issues (Acute) Aortic insufficiency (Acute) s/p valve replacement Diabetes mellitus (Chronic) Acute anemia (Acute) Medical History Hypertensive emergency Cerebral septic emboli causing stroke with residual right hemiparesis and expressive aphasia GI bleed Osteomyelitis of left fibula DVT, lower extremity previously on coumadin Hypomagnesemia Endocarditis G tube feedings Per referral form Zach Sanders 09/18/18 placed by [facility] [place] [facility] for endocarditis, no longer using. Displaced bimalleolar fracture of left ankle s/p infection of wound Tinea corporis Chronic pain Depression Right rotator cuff tear Aortic valve endocarditis MSSA (methicillin susceptible Staphylococcus aureus) septicemia Hepatitis C GERD (gastroesophageal reflux disease) Smoker Surgical History S/P endoscopy H/O aortic valve replacement Pericardial aortic valve at [facility] [place] - 08/21/2018 - Magna Ease 25 mm S/P hardware removal L ankle. S/P percutaneous endoscopic gastrostomy (PEG) tube placement History of ankle surgery S/P spinal surgery Family History Father No problems noted. Mother COPD (chronic obstructive pulmonary disease) Hypertension Diabetes Heart disease Sister Stroke Social History (Updated 09/30/23 @ 15:30 by John Singh) Smoking/Tobacco Use Status: Current every day Tobacco Type: cigarettes Smoking risk assessment performed?: Yes Alcohol Intake: never Drug use: Daily Substance use type: marijuana and crack/cocaine Details: cocaine binge the last 2 days 09/29/23, on suboxone, last dose yesterday Caregiver/Support person: Yes Household members: friend(s) Housing: house Number of Children: 0 number of grandchildren: 1 current occupation: Disabled Pets and animals: Yes Pets and animals: cat(s) Current gender identity: male What type of physical activity do you participate in: none Do you feel safe at home: Yes Do you feel safe in your relationship?: Yes Additional Social history: Lives with ex- Vanessa, who is his caregiver. Lives in private home.
--- NOTE | 2023-10-11 09:45 | DI.CT_ITS ---
Exam(s) CT ABDOMEN PELVIS W EXAM: CT ABDOMEN PELVIS W CLINICAL HISTORY: RUQ tenderness, fevers. TECHNIQUE: Imaging Protocol: Axial computed tomography images with coronal and sagittal reformatted images were created and reviewed CONTRAST MATERIAL: Intravenous: Omnipaque 350 Contrast volume:100 ml Oral: / no COMPARISON: CT CT ABDOMEN PELVIS W from 09/29/2023 FINDINGS: ABDOMEN and PELVIS: Exam mildly limited by artifact due to patient arm position as well as motion. Patient unable to fo llow breathing instructions. Lung Bases: Some interval improvement in right lower lobe infiltrate/atelectasis. Liver: Normal density. No suspicious mass. Calcified granulomas. Gallbladder and biliary tract: No radiodense calculus. No biliary dilation. Pancreas: Normal density. No abnormal calcifications or inflammatory process. No evidence of mass. Spleen: Calcified granulomas. Kidneys: Normal size, contour and axis. No radiodense stones. No obstructive uropathy. No suspicious masses seen. Left perinephric stranding no longer present. Adrenal glands: No masses seen. Vasculature: Abdominal aorta non-dilated. Soft tissues: Metallic density again noted in right rectus abdominus muscle. Bladder: Mild wall thickening. No calculi.No focal mass. Bowel: No obstruction. No bowel wall thickening. Appendix normal. Mild diverticulosis. No evidenc e of diverticulitis. Peritoneal cavity: No ascites. No focal collection. No mesenteric inflammatory response. Bones: Unremarkable for age. Reproductive organs: Unremarkable. Lymph nodes: No pathologically enlarged lymph nodes. IMPRESSION:: No acute abnormality in the abdomen or pelvis. RADIATION DOSE DELIVERED: Total DLP DATA REPOSITORY: All CT scans at this facility are submitted to the National Radiology Data Registry (NRDR) Dose Index Registry (DIR) with the [employer] (ACR). RADIATION OPTIMIZATION: All CT scans at this facility use at least one of these dose optimization te chniques: automated exposure control; mA and/or kV adjustment per patient size (includes targeted exa ms where dose is matched to clinical indication); or iterative reconstruction.
[2023-10-11 10:29] LABS: Lactate 1.1 mmol/L (0.6-1.4)
[2023-10-11 10:32] LABS: Abs Immature Grans 0.04 10^3/uL (0.0-0.06); Absolute Basophil Count 0.12 10^3/uL (0.0-0.2); Absolute Eosinophil Count 0.26 10^3/uL (0.0-0.7); Absolute Neutrophil Count 6.03 10^3/uL (1.2-6.7); Basophils % 1.4 %; HCT 46.6 % (40.0-50.0); HGB 14.8 g/dL (13.5-17.5); Immature Grans % 0.5 %; Lymphocytes % 19.9 %; MCH 27.3 pg (27.0-33.0); MCHC 31.8 % (32.0-36.0); MCV 86 fL (80-95); MPV 8.9 fL (8.0-11.0); Monocytes % 4.7 %; Neutrophils % 70.5 %; Platelet Count 437 10^3/uL (130-400); RBC 5.42 10^6/uL (4.36-5.78); RDW 16.1 % (11.8-14.1); RDW-SD 50.3 fL; WBC 8.55 10^3/uL (4.4-10.8)
[2023-10-11 10:52] LABS: ALT 13 U/L (16-63); AST 11 U/L (15-37); Albumin 4.1 g/dL (3.4-5.0); Alkaline Phosphatase 79 U/L (46-116); Anion Gap 9.2 mmol/L (3-11); BUN 15 mg/dL (7-18); Bilirubin, Direct 0.1 mg/dL (0.0-0.2); Bilirubin, Total 0.53 mg/dL (0.2-1.0); CO2 25.8 mmol/L (21.0-32.0); CREATININE 1.6 mg/dL (0.70-1.30); Chloride 105 mmol/L (98-107); Estimated GFR 49.63 (mL/min/1.73m2); Glucose 100 mg/dL (74-106); Lipase 29 U/L (16-77); Potassium 4.1 mmol/L (3.5-5.1); Sodium 140 mmol/L (136-145); Total Protein 8.8 g/dL (6.4-8.2); Troponin I < 50 ng/L (< or =60)
[2023-10-11 10:54] LABS: ETHANOL BLOOD < 3.0 mg/dL (<10)
[2023-10-11 11:12] LABS: Procalcitonin < 0.1 ng/mL
[2023-10-11 11:16] LABS: Bilirubin Negative (Negative); Blood Negative (Negative); Clarity Clear (Clear); Glucose 100 mg/dL (Negative); Ketones Trace mg/dL (Negative); Leukocyte Esterase Negative (Negative); Nitrite Negative (Negative); Specific Gravity 1.025 (1.005-1.025); Urobilinogen 0.2 mg/dL (Up to 0.2)
[2023-10-11 11:29] LABS: *AMPHETAMINES SCREEN URINE Negative (Negative); *BARBITURATES SCREEN URINE Negative (Negative); *BENZODIAZEPINES SCREEN URINE Negative (Negative); Cannabinoids THC Positive (Negative); Cocaine Screen,Urine Positive (Negative); METHADONE URINE SCREEN Negative (Negative); OPIATES URINE SCREEN Negative (Negative)
[2023-10-11 11:30] LABS: Tricyclic Antidepressants Negative (Negative)
[2023-10-11 11:31] LABS: Bacteria Rare HPF (Negative); C & S Indicated? No; Casts Negative LPF (Negative); Crystals Negative HPF (Negative); Epithelial Cells Negative HPF (Negative); Mucus Trace (Negative); RBC 0-2 HPF (0-2); WBC 0-2 HPF (0-5)
[2023-10-11] MEDS: Normal Saline - Diluent 50 ML VIAL IJ (11:36)
[2023-10-11] MEDS: Omnipaque 350 MG/ML 100 ML BTL IJ (11:37)
--- NOTE | 2023-10-11 12:01 | DI.RAD_ITS ---
Exam(s) XR CHEST 2V PA LATERAL EXAM: XR CHEST 2V PA LATERAL CLINICAL HISTORY: sepsis TECHNIQUE: 2D digital imaging was performed. Two views. COMPARISON: CR XR CHEST 2V PA LATERAL from 03/06/2023 CR,XR XR PORTABLE CHEST AP from 09/29/2023 FINDINGS: HEART: Normal size. Aorta: Not dilated. Aortic valve prosthesis. PULMONARY VASCULATURE: Normal. MEDIASTINUM: Unremarkable. LUNGS: Clear. PLEURAL SPACE: No pleural effusion or pneumothorax. Minimal chronic blunting of the left costophrenic angle. BONE:Unremarkable for age. Sternal wires. SOFT TISSUES: Unremarkable. IMPRESSION: No acute abnormality. DATA REPOSITORY: RADIATION DOSE DELIVERED:
--- NOTE | 2023-10-12 10:31 | NUR.NOTE ---
Access chart to reconcile EKG orders and EKG's in [facility]. Duplicate order cancelled. Nursing Note:
== END 2023-10-11 13:13 | disposition home or self-care (01) ==
PROVIDERS: Emergency Provider Physician Assistant; PCP Nurse Practitioner Family
DX: M79.661 Pain in right lower leg (principal); M79.662 Pain in left lower leg; L03.115 Cellulitis of right lower limb; L03.116 Cellulitis of left lower limb
CPT/HCPCS: 36415; 80048; 80076; 80307; 83690; 84145; 87040; 93005; 99285; 71046; 74177; 80320; 81003; 81015; 83605; 84484; 85025; 93010; 99283; J3490

== ENCOUNTER 2023-10-20 11:39 | Emergency (ER) | payer MEDICAID, SELFPAY ==
--- NOTE | 2023-10-20 11:30 | RT.EKG_ITS ---
APPROVED REPORT Exam: Resting ECG Reason for Exam: Radha Patient Location: E HR:43 bpm ECG Measurements Heart Rate 43 AXIS [place] 180 P 68 QRSd 122 QRS 76 QT 475 T 93 QTc 401 Conclusion Sinus bradycardia...rate< 60 Right bundle branch block...QRSd>120, terminal axis(90,270) Nonspecific T abnormalities, lateral leads...T <-0.10mV, I aVL V5 V6
[2023-10-20 11:40] VITALS: BP 221/94; PULSE 49; RESP 18; TEMP 36.4; O2SAT 100
[2023-10-20 12:18] VITALS: PULSE 56; RESP 14; O2SAT 97
[2023-10-20 12:20] VITALS: PULSE 56; RESP 16; O2SAT 97
[2023-10-20 12:23] VITALS: PULSE 54; RESP 13; O2SAT 96
--- NOTE | 2023-10-20 12:26 | W.ED.GENAD ---
Discharge Plan Disposition Patient Disposition: Against Medical Advice Discharge Details Chief Complaint: Cellulitis Clinical Impression: Erythema of lower extremity Primary Care Provider: Lexii Luna ED Provider: Cristhian Ly Home Meds and New Rx's Prescriptions: No Action esomeprazole magnesium [Nexium] 40 mg capsule,delayed release(DR/EC) 40 mg PO DAILY Trulicity 4.5 mg/0.5 mL pen injector 4.5 mg subcut QWEEK albuterol sulfate 90 mcg/actuation HFA aerosol inhaler 2 inh inhalation Q6H PRN aspirin 81 mg Tablet 81 mg PO DAILY duloxetine 30 mg Capsule,Delayed Release(Dr/Ec) 30 mg PO BID acetaminophen [Tylenol] 325 mg tablet 1,000 mg PO Q6H PRN Anoro Ellipta 62.5-25 mcg/actuation blister with device 1 ea INHALATION DAILY Patient Comments: INHALE ONE PUFF BY MOUTH EVERY DAY buprenorphine-naloxone [Suboxone] 4-1 mg film 1 film sublingual DAILY Patient Comments: PLACE ONE FILM UNDER THE TONGUE EVERY DAY cyanocobalamin (vitamin B-12) [Vitamin B-12] 1,000 mcg tablet 1,000 mcg PO DAILY lisinopril 40 mg tablet 40 mg PO DAILY Patient Comments: TAKE ONE TABLET BY MOUTH EVERY DAY cephalexin 500 mg capsule 500 mg PO QID 10 Days Qty: 40 0RF furosemide [Lasix] 40 mg Tablet 40 mg PO BID amlodipine 2.5 mg tablet 2.5 mg PO DAILY Patient Comments: TAKE ONE TABLET BY MOUTH EVERY DAY diltiazem HCl 120 mg capsule,extended release 24 hr 120 mg PO DAILY Patient Comments: TAKE ONE CAPSULE BY MOUTH EVERY DAY FOR HIGH BLOOD PRESSURE AND HIGH HEART RATE gabapentin 600 mg tablet 600 mg PO TID Patient Comments: TAKE ONE TABLET BY MOUTH THREE TIMES A DAY Discharge Instructions Instructions: Leaving Against Medical Advice Additional Instructions: You presented to the emergency department today and decided you did not wish to be seen. You are leaving prior to completion of examination, diagnostic workup and treatment. You may have life-threatening illness that would go undiagnosed and untreated. You may . Your blood pressure is severely elevated and your pulse is low. Please be sure to follow-up with your doctor as soon as possible. Return to the ER at any time for further workup and treatment. HPI General Mode of arrival: EMS. Date/Time Provider Initiated Documentation: 10/20/23 11:42. Limitations to Documentation: no limitations. Information obtained by: patient. HPI Narrative: 58-year-old male presents with initial complaint of bilateral lower extremity inflammation and swelling with associated shortness of breath, lethargy and dizziness per nursing record. Patient apparently refused nebs offered by EMS but did receive 250 mL bolus prior to arrival. When I went to assess the patient he noted he did not wish to stay for further evaluation. He declined examination and declined to provide additional history and decided to leave AGAINST MEDICAL ADVICE. Related Data Home Medications ?Medication ?Instructions ?Recorded ?Confirmed furosemide 40 mg tablet (Lasix) 40 mg PO BID 02/15/19 10/20/23 esomeprazole magnesium 40 mg 40 mg PO DAILY 05/05/20 10/20/23 capsule,delayed release (Nexium) aspirin 81 mg tablet 81 mg PO DAILY 08/03/20 10/20/23 duloxetine 30 mg capsule,delayed 30 mg PO BID 08/03/20 10/20/23 release acetaminophen 325 mg tablet 1,000 mg PO Q6H PRN 09/27/20 10/20/23 (Tylenol) umeclidinium 62.5 mcg-vilanterol 1 ea inhalation DAILY 09/27/20 10/20/23 25 mcg/actuation powdr for inhalation (Anoro Ellipta) buprenorphine 4 mg-naloxone 1 mg 1 film sublingual DAILY 09/28/20 10/20/23 sublingual film (Suboxone) albuterol sulfate 90 mcg/actuation 2 inh inhalation Q6H PRN 04/12/22 10/20/23 aerosol inhaler dulaglutide 4.5 mg/0.5 mL 4.5 mg subcut QWEEK 04/12/22 10/20/23 subcutaneous pen injector (Trulicity) cyanocobalamin (vitamin B-12) 1,000 mcg PO DAILY 03/06/23 10/20/23 1,000 mcg tablet (Vitamin B-12) lisinopril 40 mg tablet 40 mg PO DAILY 06/14/23 10/20/23 amlodipine 2.5 mg tablet 2.5 mg PO DAILY 09/30/23 10/20/23 diltiazem HCl 120 mg capsule,24 120 mg PO DAILY 09/30/23 10/20/23 hr,extended release gabapentin 600 mg tablet 600 mg PO TID 09/30/23 10/20/23 cephalexin 500 mg capsule 500 mg PO QID cellulitis 10 days 10/11/23 10/20/23 #40 caps Previous Rx's ?Medication ?Instructions ?Recorded cephalexin 500 mg capsule 500 mg PO QID cellulitis 10 days 10/11/23 #40 caps Allergies Allergy/AdvReac Type Severity Reaction Status Date / Time Penicillins AdvReac Severe Vomiting Verified 10/20/23 11:51 hydrocodone AdvReac Intermediate vomiting Verified 10/20/23 11:51 General Stated Complaint: Cellulitis LILLIAN: 3 Exam Const General: cooperative and no acute distress HENMT Mouth: moist mucous membranes Skin General skin exam: erythema (bilateral LEs) Course Vital Signs Vital signs: Vital Signs Temperature 36.4 C L 10/20/23 11:40 Pulse 49 L 10/20/23 11:40 Respiratory Rate 18 10/20/23 11:40 Blood Pressure 221/94 H 10/20/23 11:40 Pulse Oximetry 100 10/20/23 11:40 Temperature 36.4 C L 10/20/23 11:40 Temperature Source Skin 10/20/23 11:40 Pulse 49 L 10/20/23 11:40 Respiratory Rate 18 10/20/23 11:40 Blood Pressure 221/94 H 10/20/23 11:40 Pulse Oximetry 100 10/20/23 11:40 Oxygen Delivery Method Room Air 10/20/23 11:40 Oxygen Flow Rate 0 10/20/23 11:40 Pain Level 0 10/20/23 11:40 Medical Decision Making 58-year-old male here with initial concern for leg inflammation, dizziness and fatigue. Patient decided that he did not wish to be seen, declined examination and further history. I had a discussion with the patient about my diagnostic/treatment plan. He declines plan and wishes to leave against medical advise. I reiterated my concerns to the patient and explained the risks of leaving prior to completion of workup and treatment. I specifically emphasized the possibility of life-threatening or lifestyle modifying disease that would not be appropriately treated if they leave. Patient verbalized understanding of my concerns and the potential for life threatening or lifestyle modifying disease. Patient has capacity to make informed decision. I recommended that the patient follow-up with primary care physician DONIS or return to the Emergency Department at any time for further treatment. Quality:SDOH Health Related Social Needs: No Data to Display PFSH All Active Problems (Updated 10/20/23 @ 12:28 by Cristhian Ly MD) Erythema of lower extremity (Acute) Cellulitis of foot (Acute) Abnormal CT scan, kidney (Acute) Elevated white blood cell count (Acute) Congestive heart failure (CHF) (Chronic) Chronic venous insufficiency (Acute) COVID-19 (Acute) COVID (Acute) Obstructive sleep apnea (Chronic) COPD (chronic obstructive pulmonary disease) (Chronic) Anxiety (Chronic) Leg wound, left (Acute) Medical non-compliance (Acute) Dysphagia (Acute) Dyspnea (Acute) Dyspepsia (Acute) Discharge planning issues (Acute) DVT (deep venous thrombosis) (Chronic) Pneumonia (Acute) Aragon esophagus (Acute) Diabetic neuropathy (Acute) Traumatic hematoma of right upper arm (Acute) Likely due to trauma sustained in the ambulance Anemia due to acute blood loss (Acute) Symptomatic anemia (Acute) 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) (Acute) Opiate dependence (Chronic) managed on suboxone Hypertension (Chronic) Discharge planning issues (Acute) Aortic insufficiency (Acute) s/p valve replacement Diabetes mellitus (Chronic) Acute anemia (Acute) Medical History Hypertensive emergency 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 Displaced bimalleolar fracture of left ankle s/p infection of wound Tinea corporis Chronic pain Depression Right rotator cuff tear Aortic valve endocarditis MSSA (methicillin susceptible Staphylococcus aureus) septicemia Hepatitis C GERD (gastroesophageal reflux disease) Smoker Surgical History S/P endoscopy H/O aortic valve replacement Pericardial aortic valve at [facility] - 08/21/2018 - Magna Ease 25 mm S/P hardware removal L ankle. S/P percutaneous endoscopic gastrostomy (PEG) tube placement History of ankle surgery S/P spinal surgery Family History Father No problems noted. Mother COPD (chronic obstructive pulmonary disease) Hypertension Diabetes Heart disease Sister Stroke Social History (Updated 09/30/23 @ 15:30 by John Singh) Smoking/Tobacco Use Status: Current every day Tobacco Type: cigarettes Smoking risk assessment performed?: Yes Alcohol Intake: never Drug use: Daily Substance use type: marijuana and crack/cocaine Details: cocaine binge the last 2 days 09/29/23, on suboxone, last dose yesterday Caregiver/Support person: Yes Household members: friend(s) Housing: house Number of Children: 0 number of grandchildren: 1 current occupation: Disabled Pets and animals: Yes Pets and animals: cat(s) Current gender identity: male What type of physical activity do you participate in: none Do you feel safe at home: Yes Do you feel safe in your relationship?: Yes Additional Social history: Lives with ex- Vanessa, who is his caregiver. Lives in private home.
--- NOTE | 2023-11-18 11:15 | NUR.NOTE ---
Access chart to determine documentation for referral to wound care. Nursing Note:
== END 2023-10-20 12:28 | disposition left against medical advice (07) ==
PROVIDERS: Emergency Provider Student in an Organized Health Care Education/Training Program; PCP Nurse Practitioner Family
DX: L03.116 Cellulitis of left lower limb (principal); L03.115 Cellulitis of right lower limb; R06.02 Shortness of breath; Z93.1 Gastrostomy status; Z86.718 Personal history of other venous thrombosis and embolism; Z79.82 Long term (current) use of aspirin; Z53.29 Procedure and treatment not carried out because of patient's decision for other reasons
CPT/HCPCS: 93005; 99283; 93010

== ENCOUNTER 2023-11-16 11:23 | Emergency (ER) | payer MEDICAID, SELFPAY ==
[2023-11-16 11:25] VITALS: BP 164/92; PULSE 84; RESP 16; TEMP 36.7; O2SAT 96
--- NOTE | 2023-11-16 12:00 | W.ED.GENAD ---
Discharge Plan Disposition Patient Disposition: Home Condition: Improving Discharge Details Clinical Impression: Cellulitis Primary Care Provider: Lexii Luna ED Provider: Jamin Sorensen Home Meds and New Rx's Prescriptions: New clindamycin HCl 300 mg capsule 300 mg PO TID 7 Days Qty: 21 0RF No Action esomeprazole magnesium [Nexium] 40 mg capsule,delayed release(DR/EC) 40 mg PO DAILY Trulicity 4.5 mg/0.5 mL pen injector 4.5 mg subcut QWEEK albuterol sulfate 90 mcg/actuation HFA aerosol inhaler 2 inh inhalation Q6H PRN aspirin 81 mg Tablet 81 mg PO DAILY duloxetine 30 mg Capsule,Delayed Release(Dr/Ec) 30 mg PO BID acetaminophen [Tylenol] 325 mg tablet 1,000 mg PO Q6H PRN Anoro Ellipta 62.5-25 mcg/actuation blister with device 1 ea INHALATION DAILY Patient Comments: INHALE ONE PUFF BY MOUTH EVERY DAY buprenorphine-naloxone [Suboxone] 4-1 mg film 1 film sublingual DAILY Patient Comments: PLACE ONE FILM UNDER THE TONGUE EVERY DAY cyanocobalamin (vitamin B-12) [Vitamin B-12] 1,000 mcg tablet 1,000 mcg PO DAILY lisinopril 40 mg tablet 40 mg PO DAILY Patient Comments: TAKE ONE TABLET BY MOUTH EVERY DAY furosemide [Lasix] 40 mg Tablet 40 mg PO BID amlodipine 2.5 mg tablet 2.5 mg PO DAILY Patient Comments: TAKE ONE TABLET BY MOUTH EVERY DAY diltiazem HCl 120 mg capsule,extended release 24 hr 120 mg PO DAILY Patient Comments: TAKE ONE CAPSULE BY MOUTH EVERY DAY FOR HIGH BLOOD PRESSURE AND HIGH HEART RATE gabapentin 600 mg tablet 600 mg PO TID Patient Comments: TAKE ONE TABLET BY MOUTH THREE TIMES A DAY Discharge Instructions Instructions: Cellulitis (Skin Infection), Adult ED Additional Instructions: Please follow-up with your primary care physician. Return to the emerged part for any worsening symptoms HPI General Date/Time Provider Initiated Documentation: 11/16/23 11:39. HPI Narrative: 58-year-old male presents with left posterior leg discomfort area of self rupturing blister and skin redness that is progressed over the last 2 weeks. Related Data Home Medications ?Medication ?Instructions ?Recorded ?Confirmed furosemide 40 mg tablet (Lasix) 40 mg PO BID 02/15/19 11/16/23 esomeprazole magnesium 40 mg 40 mg PO DAILY 05/05/20 11/16/23 capsule,delayed release (Nexium) aspirin 81 mg tablet 81 mg PO DAILY 08/03/20 11/16/23 duloxetine 30 mg capsule,delayed 30 mg PO BID 08/03/20 11/16/23 release acetaminophen 325 mg tablet 1,000 mg PO Q6H PRN 09/27/20 11/16/23 (Tylenol) umeclidinium 62.5 mcg-vilanterol 1 ea inhalation DAILY 09/27/20 11/16/23 25 mcg/actuation powdr for inhalation (Anoro Ellipta) buprenorphine 4 mg-naloxone 1 mg 1 film sublingual DAILY 09/28/20 11/16/23 sublingual film (Suboxone) albuterol sulfate 90 mcg/actuation 2 inh inhalation Q6H PRN 04/12/22 11/16/23 aerosol inhaler dulaglutide 4.5 mg/0.5 mL 4.5 mg subcut QWEEK 04/12/22 11/16/23 subcutaneous pen injector (Trulicity) cyanocobalamin (vitamin B-12) 1,000 mcg PO DAILY 03/06/23 11/16/23 1,000 mcg tablet (Vitamin B-12) lisinopril 40 mg tablet 40 mg PO DAILY 06/14/23 11/16/23 amlodipine 2.5 mg tablet 2.5 mg PO DAILY 09/30/23 11/16/23 diltiazem HCl 120 mg capsule,24 120 mg PO DAILY 09/30/23 11/16/23 hr,extended release gabapentin 600 mg tablet 600 mg PO TID 09/30/23 11/16/23 clindamycin HCl 300 mg capsule 300 mg PO TID 7 days #21 caps 11/16/23 Previous Rx's ?Medication ?Instructions ?Recorded clindamycin HCl 300 mg capsule 300 mg PO TID 7 days #21 caps 11/16/23 Allergies Allergy/AdvReac Type Severity Reaction Status Date / Time Penicillins AdvReac Severe Vomiting Verified 11/16/23 11:35 hydrocodone AdvReac Intermediate vomiting Verified 11/16/23 11:35 General Stated Complaint: Cellulitis LILLIAN: 3 Exam Narrative Exam Narrative: Alert oriented interactive Mucous memories tongue Normal voice speaking full sentences no tachypnea Area of induration erythema left lower extremity from mid leg down to ankle with posterior spontaneously ruptured bulla with serous material no fluctuance no purulence no crepitus, warm well-perfused extremity mobile DP pulse intact Course Vital Signs Vital signs: Vital Signs Temperature 36.7 C 11/16/23 11:25 Pulse 84 11/16/23 11:25 Respiratory Rate 16 11/16/23 11:25 Blood Pressure 164/92 H 11/16/23 11:25 Pulse Oximetry 96 11/16/23 11:25 Temperature 36.7 C 11/16/23 11:25 Temperature Source Tympanic 11/16/23 11:25 Pulse 84 11/16/23 11:25 Respiratory Rate 16 11/16/23 11:25 Blood Pressure 164/92 H 11/16/23 11:25 Blood Pressure Position Sitting 11/16/23 11:25 Pulse Oximetry 96 11/16/23 11:25 Oxygen Delivery Method Room Air 11/16/23 11:25 Oxygen Flow Rate 0 11/16/23 11:25 Pain Level 10 11/16/23 11:25 Lab/Test Results Lab/Test Results: 11/16/23 11:56 Blood Blood Culture - Pending 11/16/23 11:56 Blood Blood Culture - Pending Medical Decision Making 58-year-old male presents with progressive cellulitis of left lower extremity, self rupturing serous bulla posterior leg, patient hemodynamically stable afebrile nontoxic, no crepitus no fluctuance no purulence, DP pulse intact sensate mobile limb, lower suspicion for fasciitis myositis or necrotizing fasciitis lower suspicion for deep space abscess, likely progressive cellulitis, will obtain cultures labs screening x-ray to assess for subcutaneous air although low suspicion given examination, will initiate clindamycin pending reassessment and lab results consider home versus inpatient treatment 13: 52 resting of really no acute distress. Labs imaging unremarkable. Will treat empirically with clindamycin. Home care instruction return precautions given Quality:SDOH Health Related Social Needs: No Data to Display PFSH All Active Problems (Updated 11/16/23 @ 13:55 by Jamin Sorensen MD) Cellulitis (Acute) Erythema of lower extremity (Acute) Abnormal CT scan, kidney (Acute) Elevated white blood cell count (Acute) Congestive heart failure (CHF) (Chronic) Chronic venous insufficiency (Acute) COVID-19 (Acute) COVID (Acute) Obstructive sleep apnea (Chronic) COPD (chronic obstructive pulmonary disease) (Chronic) Anxiety (Chronic) Leg wound, left (Acute) Medical non-compliance (Acute) Dysphagia (Acute) Dyspnea (Acute) Dyspepsia (Acute) Discharge planning issues (Acute) DVT (deep venous thrombosis) (Chronic) Pneumonia (Acute) Aragon esophagus (Acute) Diabetic neuropathy (Acute) Traumatic hematoma of right upper arm (Acute) Likely due to trauma sustained in the ambulance Anemia due to acute blood loss (Acute) Symptomatic anemia (Acute) 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) (Acute) Opiate dependence (Chronic) managed on suboxone Hypertension (Chronic) Discharge planning issues (Acute) Aortic insufficiency (Acute) s/p valve replacement Diabetes mellitus (Chronic) Acute anemia (Acute) Medical History Hypertensive emergency 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 Displaced bimalleolar fracture of left ankle s/p infection of wound Tinea corporis Chronic pain Depression Right rotator cuff tear Aortic valve endocarditis MSSA (methicillin susceptible Staphylococcus aureus) septicemia Hepatitis C GERD (gastroesophageal reflux disease) Smoker Surgical History S/P endoscopy H/O aortic valve replacement Pericardial aortic valve at [facility] [place] - 08/21/2018 - Magna Ease 25 mm S/P hardware removal L ankle. S/P percutaneous endoscopic gastrostomy (PEG) tube placement History of ankle surgery S/P spinal surgery Family History Father No problems noted. Mother COPD (chronic obstructive pulmonary disease) Hypertension Diabetes Heart disease Sister Stroke Social History (Updated 09/30/23 @ 15:30 by John Singh) Smoking/Tobacco Use Status: Current every day Tobacco Type: cigarettes Smoking risk assessment performed?: Yes Alcohol Intake: never Drug use: Daily Substance use type: marijuana and crack/cocaine Details: cocaine binge the last 2 days 09/29/23, on suboxone, last dose yesterday Caregiver/Support person: Yes Household members: friend(s) Housing: house Number of Children: 0 number of grandchildren: 1 current occupation: Disabled Pets and animals: Yes Pets and animals: cat(s) Current gender identity: male What type of physical activity do you participate in: none Do you feel safe at home: Yes Do you feel safe in your relationship?: Yes Additional Social history: Lives with ex- Vanessa, who is his caregiver. Lives in private home.
[2023-11-16 12:08] LABS: Lactate 0.8 mmol/L (0.6-1.4)
[2023-11-16 12:09] LABS: Abs Immature Grans 0.04 10^3/uL (0.0-0.06); Absolute Basophil Count 0.13 10^3/uL (0.0-0.2); Absolute Lymphocyte Count 2.16 10^3/uL (1.2-3.4); Absolute Monocyte Count 0.77 10^3/uL (0.1-0.8); Absolute Neutrophil Count 5.24 10^3/uL (1.2-6.7); Basophils % 1.4 %; Eosinophils % 8.8 %; HGB 13.2 g/dL (13.5-17.5); Immature Grans % 0.4 %; Lymphocytes % 23.6 %; MCH 27.4 pg (27.0-33.0); MCHC 31.4 % (32.0-36.0); MCV 87 fL (80-95); Monocytes % 8.4 %; Neutrophils % 57.4 %; Platelet Count 357 10^3/uL (130-400); RBC 4.82 10^6/uL (4.36-5.78); RDW 14.6 % (11.8-14.1); RDW-SD 46.9 fL; WBC 9.14 10^3/uL (4.4-10.8)
[2023-11-16] MEDS: CLINDAMYCIN 600 MG/50 ML BAG 100 MG IVPB (12:19)
[2023-11-16] MEDS: Ketorolac 15 MG/ML VIAL IVP (12:21)
[2023-11-16] MEDS: Normal Saline 1,000 ML 1000 ML IV (12:21)
[2023-11-16 12:25] LABS: ALT 11 U/L (16-63); AST 11 U/L (15-37); Albumin 3.3 g/dL (3.4-5.0); Alkaline Phosphatase 89 U/L (46-116); Anion Gap 7.1 mmol/L (3-11); BUN 11 mg/dL (7-18); Bilirubin, Total 0.38 mg/dL (0.2-1.0); CO2 26.9 mmol/L (21.0-32.0); CREATININE 1.2 mg/dL (0.70-1.30); Calcium 8.7 mg/dL (8.5-10.1); Chloride 102 mmol/L (98-107); Glucose 79 mg/dL (74-106); Potassium 3.7 mmol/L (3.5-5.1); Sodium 136 mmol/L (136-145); Total Protein 7.8 g/dL (6.4-8.2)
[2023-11-16 12:57] LABS: Procalcitonin < 0.1 ng/mL
--- NOTE | 2023-11-16 13:24 | DI.RAD_ITS ---
Exam(s) XR TIB/FIB LT EXAM: XR TIB/FIB LT CLINICAL HISTORY: posterior leg cellulits, assessing for subq air. TECHNIQUE: 2D digital imaging was performed of the left tibia and fibula. Four images were obtained. AP and lateral views were obtained. COMPARISON: CR XR ANKLE LT COMPLETE from 08/03/2018 CR XR TIB/FIB LT from 08/16/2021 FINDINGS: BONES: No acute fracture is present. There is an old healed fracture deformity of the distal left fi bula. Evidence of prior orthopedic instrumentation is seen in the distal fibula and tibia. No bony destructive lesion is seen. Visualized portion of knee and ankle joints are unremarkable. SOFT TISSUE: No soft tissue gas is seen. IMPRESSION: 1. No soft tissue gas or radiopaque foreign bodies. 2. No radiographic evidence to suggest osteomyelitis. DATA REPOSITORY: RADIATION DOSE DELIVERED:
== END 2023-11-16 14:20 | disposition home or self-care (01) ==
LOC: ER 13:55 → RED 14:20
PROVIDERS: Emergency Provider Emergency Medicine; PCP Family Medicine
DX: L03.116 Cellulitis of left lower limb (principal); J44.9 Chronic obstructive pulmonary disease, unspecified; E11.9 Type 2 diabetes mellitus without complications; I11.0 Hypertensive heart disease with heart failure; I50.9 Heart failure, unspecified; F17.210 Nicotine dependence, cigarettes, uncomplicated; Z79.2 Long term (current) use of antibiotics; Z79.82 Long term (current) use of aspirin; Z86.718 Personal history of other venous thrombosis and embolism
CPT/HCPCS: 36415; 80053; 84145; 87040; 96365; 96375; 99284; 73590; 83605; 85025; J0737; J1885

== ENCOUNTER 2023-12-25 17:37 | Inpatient (IN) | payer MEDICAID, SELFPAY ==
[2023-12-25] VITALS (51 sets, daily range): BP systolic 181–244; BP diastolic 69–211; PULSE 40–95; RESP 10–27; TEMP 36.1–36.7; O2SAT 92–99
--- NOTE | 2023-12-25 17:49 | ED.GENADUL_ITS ---
Discharge Plan Disposition Patient Disposition: Admit to [facility] Condition: Stable Discharge Details Clinical Impression: Sepsis, Cellulitis of right lower extremity Primary Care Provider: Evon Howard ED Provider: Rohan Lindquist Home Meds and New Rx's Prescriptions: No Action esomeprazole magnesium [Nexium] 40 mg capsule,delayed release(DR/EC) 40 mg PO DAILY Trulicity 4.5 mg/0.5 mL pen injector 4.5 mg subcut QWEEK albuterol sulfate 90 mcg/actuation HFA aerosol inhaler 2 inh inhalation Q6H PRN aspirin 81 mg Tablet 81 mg PO DAILY duloxetine 30 mg Capsule,Delayed Release(Dr/Ec) 30 mg PO BID acetaminophen [Tylenol] 325 mg tablet 1,000 mg PO Q6H PRN Anoro Ellipta 62.5-25 mcg/actuation blister with device 1 ea INHALATION DAILY Patient Comments: INHALE ONE PUFF BY MOUTH EVERY DAY buprenorphine-naloxone [Suboxone] 4-1 mg film 1 film sublingual DAILY Patient Comments: PLACE ONE FILM UNDER THE TONGUE EVERY DAY cyanocobalamin (vitamin B-12) [Vitamin B-12] 1,000 mcg tablet 1,000 mcg PO DAILY lisinopril 40 mg tablet 40 mg PO DAILY Patient Comments: TAKE ONE TABLET BY MOUTH EVERY DAY furosemide [Lasix] 40 mg Tablet 40 mg PO BID amlodipine 2.5 mg tablet 2.5 mg PO DAILY Patient Comments: TAKE ONE TABLET BY MOUTH EVERY DAY diltiazem HCl 120 mg capsule,extended release 24 hr 120 mg PO DAILY Patient Comments: TAKE ONE CAPSULE BY MOUTH EVERY DAY FOR HIGH BLOOD PRESSURE AND HIGH HEART RATE gabapentin 600 mg tablet 600 mg PO TID Patient Comments: TAKE ONE TABLET BY MOUTH THREE TIMES A DAY HPI General Date/Time Provider Initiated Documentation: 12/25/23 17:38 . 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 Quality described as feels very sick, mild shortness of breath, sweating, feverish, denies chest pain, denies vomiting, endorses weakness, no radiation to altered mentation, red streaking up the leg, endorses some purulent drainage. Severity is described as severe. Palliating factors include nothing specific. Provoking factors include nothing specific. Patient not anticoagulated. Related Data Home Medications ?Medication ?Instructions ?Recorded ?Confirmed furosemide 40 mg tablet (Lasix) 40 mg PO BID 02/15/19 12/25/23 esomeprazole magnesium 40 mg 40 mg PO DAILY 05/05/20 12/25/23 capsule,delayed release (Nexium) aspirin 81 mg tablet 81 mg PO DAILY 08/03/20 12/25/23 duloxetine 30 mg capsule,delayed 30 mg PO BID 08/03/20 12/25/23 release acetaminophen 325 mg tablet 1,000 mg PO Q6H PRN 09/27/20 12/25/23 (Tylenol) umeclidinium 62.5 mcg-vilanterol 1 ea inhalation DAILY 09/27/20 12/25/23 25 mcg/actuation powdr for inhalation (Anoro Ellipta) buprenorphine 4 mg-naloxone 1 mg 1 film sublingual DAILY 09/28/20 12/25/23 sublingual film (Suboxone) albuterol sulfate 90 mcg/actuation 2 inh inhalation Q6H PRN 04/12/22 12/25/23 aerosol inhaler dulaglutide 4.5 mg/0.5 mL 4.5 mg subcut QWEEK 04/12/22 12/25/23 subcutaneous pen injector (Trulicity) cyanocobalamin (vitamin B-12) 1,000 mcg PO DAILY 03/06/23 12/25/23 1,000 mcg tablet (Vitamin B-12) lisinopril 40 mg tablet 40 mg PO DAILY 06/14/23 12/25/23 amlodipine 2.5 mg tablet 2.5 mg PO DAILY 09/30/23 12/25/23 diltiazem HCl 120 mg capsule,24 120 mg PO DAILY 09/30/23 12/25/23 hr,extended release gabapentin 600 mg tablet 600 mg PO TID 09/30/23 12/25/23 Allergies Allergy/AdvReac Type Severity Reaction Status Date / Time Penicillins AdvReac Severe Vomiting Verified 12/25/23 17:47 hydrocodone AdvReac Intermediate vomiting Verified 12/25/23 17:47 General Stated Complaint: Cellulitis LILLIAN: 2 Review of Systems All systems reviewed & are unremarkable except as noted in HPI and below Exam Narrative Exam Narrative: GENERAL APPEARANCE: Malnourished, toxic, awake and alert, atraumatic, moderate acute distress. SKIN: Cool, pale, diaphoretic, large 5 x 8 cm scabbed over lesion with purulent drainage to the mid lateral right bruno with large area of erythema spreading our, no lymphadenitis spreading up the leg, he does have brisk capillary refill in the right foot with chronic changes of diabetes to both lower extremities HEAD: Normocephalic, atraumatic, normal hair distribution for gender/age. EYES: Normal conjunctiva, no exudates on lids/lashes. ENT: Nares patent, no circumoral cyanosis, no facial swelling NECK: Supple, trachea midline, painless cervical ROM. LUNGS/CHEST: Lungs CTA bilaterally-no rales at bases, labored respirations, normal A/P diameter, symmetrical expansion, no chest wall deformity HEART (CV/PV): Regular bradycardic rate and rhythm with systolic murmur, 1+ peripheral edema in RLE around infection area, no JVD. ABDOMEN: Soft, non-distended, no guarding, no tenderness, no pulsatile masses. MSK: Normal ROM, no swelling/deformity to bilateral UEs or LEs, moving all extremities without weakness, no cyanosis, spine midline without tenderness, normal curvature. NEURO: Mental Status AAOx4 - alert to person, place, time, events No facial droop, no forehead involvement. Motor: No focal weakness - strength 5/5 in bilateral UEs and LEs, proximal and distal, symmetric. Sensory: sensation intact to light touch globally. Gait NT. PSYCH: euthymic, cooperative, pleasant, appropriate speech Course Vital Signs Vital signs: Vital Signs Temperature 36.1 C L 12/25/23 17:44 Pulse 67 12/25/23 17:44 Respiratory Rate 18 12/25/23 17:44 Blood Pressure 183/89 H 12/25/23 17:44 Pulse Oximetry 99 12/25/23 17:44 Temperature 36.1 C L 12/25/23 17:48 Temperature Source Oral 12/25/23 17:48 Pulse 67 12/25/23 17:48 Respiratory Rate 18 12/25/23 17:48 Blood Pressure 183/89 H 12/25/23 17:48 Blood Pressure Position Supine 12/25/23 17:48 Pulse Oximetry 99 12/25/23 17:48 Oxygen Delivery Method Room Air 12/25/23 17:48 Oxygen Flow Rate 0 12/25/23 17:48 Pain Level 7 12/25/23 17:48 Medical Decision Making This dictation utilizes [id number] dictation software and may contain unedited grammatical errors. 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 Quality described as feels very sick, mild shortness of breath, sweating, feverish, denies chest pain, denies vomiting, endorses weakness, no radiation to altered mentation, red streaking up the leg, endorses some purulent drainage. Severity is described as severe. Palliating factors include nothing specific. Provoking factors include nothing specific. Patients' medical history: Cocaine abuse, hypertensive emergency, cerebral septic emboli, GI bleeding, chronic pain, aortic valve endocarditis, hepatitis C, history of spinal surgery, congestive heart failure, COPD, hemiparesis of right side, diabetes mellitus, GI bleeding. 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 Pertinent exam findings / vital signs include appears toxic, diaphoretic, weak but answering questions appropriately, benign abdomen, bradycardic with systolic murmur, no rales in lungs. Large 5 x 8 cm right lower extremity mid lateral bruno wound that is scabbed over with some purulent drainage and spreading eryth arslan, brisk refill distal in the right foot, chronic diabetic skin changes to both legs, no lymphadenitis spreading up the right leg Differential / pathologies of concern include sepsis. Diagnostic studies of: -CBC, CMP, lactate/procalcitonin, magnesium, serial troponins, BNP, urinalysis, EKG, TSH, UDS, blood cultures, EKG, XR chest 1 view, CT right lower extremity with, CT head without contrast. -CBC without leukocytosis, no anemia -Lactate is 1.5 -CMP is without actionable abnormality -Serial troponins negative, BNP is elevated at 1181, not as high as past values do not suspect active CHF exacerbation -Procalcitonin negative, early in course of infection -UA without infection -CT right lower extremity shows evidence of cellulitis with edema extending down towards the ankle, foreign body resembling a BB or other object may be seeding his infection -Chest x-ray without acute abnormality -EKG shows sinus bradycardia 40 bpm, regular, normal intervals otherwise, no ST changes, right bundle branch block -Blood cultures pending -Magnesium within normal limits -TSH and UDS pending at time of admission Interventions of: -1L IVF, running slowly as patient has CHF and low lab markers of sepsis. -2g IV cefepime, 1800mg IV vancomycin ED Course/Assessment/Plan: 58-year-old male presents with acute and sudden worsening of a scrape of his right bruno, he is a chronic diabetic with many other comorbidities and appears toxic on presentation, his labs are fairly benign for sepsis but his infection to the leg appears severe, his vital signs were highly labile with bradycardia into the 40s and extreme hypertension into 240/100, patient received IV cefepime and vancomycin to cover MRSA and Pseudomonas due to his chronic diabetes and many other comorbidities. He does have a calcification that V rad did not comment on in his leg and it does appear to have an entry tract and appears perfectly circular I do question whether this is a BB or some other metal object, patient denies any known foreign body to this area. I discussed with hospitalist Dr. Singh for admission which was excepted, the patient may start out as an ICU patient due to his labile vital signs with possible downgrade if he stabilizes on IV antibiotics, I did give him some fluids for his. Sepsis treatment but he does have CHF so these were run slowly over time. Recommend a surgical consult to see if they can take a look at his CT scan is possible foreign body may need bedside procedure. Disposition of Sepsis, Cellulitis of Right Lower Extremity. Patient verbalized understanding of the plan and return to ED criteria and engaged in shared decision making. Medical Records Medical records reviewed: Yes I reviewed the patient's medical records. Imaging Data Radiologic Study: Attestation: I personally reviewed and interpreted this imaging study as follows: Imaging: CT Scan Radiologist's impression: Addendum created by Barron New MD on 12/25/2023 8:53:10 PM EST: A small radiopaque foreign body is identified within the subcutaneous soft tissues in the anterolateral subcutaneous tissues adjacent to the mid fibula. Initial report created on 12/25/2023 8:31:54 PM EST: PROCEDURE INFORMATION: Exam: CT Right Lower Extremity Exam date and time: 12/25/2023 7:07 PM Age: 58 years old Clinical indication: Patient HX: Severe leg infection, fever TECHNIQUE: Imaging protocol: CT of the right lower extremity with intravenous contrast was performed. Radiation optimization: All CT scans at this facility use at least one of these dose optimization techniques: automated exposure control; mA and/or kV adjustment per patient size (includes targeted exams where dose is matched to clinical indication); or iterative reconstruction. Contrast material: OMNIPAQUE 350; Contrast volume: 100 ml; Contrast route: INTRAVENOUS (IV); COMPARISON: CR XR ANKLE RT COMPLETE 06/14/2023 8:15 PM FINDINGS: Bones/joints: No fractures are noted. No lytic or blastic lesions identified. Soft tissues: Diffuse subcutaneous soft tissue edema is identified in the lower leg and extending into the ankle. Other findings: No discrete abscess is noted. No erosive changes are identified. IMPRESSION: 1. Diffuse subcutaneous soft tissue edema identified in the right lower leg and extending into the ankle and foot. 2. No discrete abscess identified. 3. No fracture or bony abnormality noted. Dictated and Authenticated by: Barron New MD. Radiologic Study #2: Attestation: I personally reviewed and interpreted this imaging study as follows: Imaging: X-Ray Radiologist's impression: Exam: XR Chest Exam date and time: 12/25/2023 7:25 PM Age: 58 years old Clinical indication: Shortness of breath TECHNIQUE: Imaging protocol: Radiologic exam of the chest. Views: 1 view. COMPARISON: CR XR CHEST 2V PA LATERAL 10/11/2023 11:51 AM FINDINGS: Lungs: Unremarkable. No consolidation. Pleural spaces: Unremarkable. No pleural effusion. No pneumothorax. Heart/Mediastinum: Unremarkable. No cardiomegaly. Bones/joints: Unremarkable. IMPRESSION: Normal one view chest x-ray. Dictated and Authenticated by: Barron New MD.Exam: XR Chest Exam date and time: 12/25/2023 7:25 PM Age: 58 years old Clinical indication: Shortness of breath TECHNIQUE: Imaging protocol: Radiologic exam of the chest. Views: 1 view. COMPARISON: CR XR CHEST 2V PA LATERAL 10/11/2023 11:51 AM FINDINGS: Lungs: Unremarkable. No consolidation. Pleural spaces: Unremarkable. No pleural effusion. No pneumothorax. Heart/Mediastinum: Unremarkable. No cardiomegaly. Bones/joints: Unremarkable. IMPRESSION: Normal one view chest x-ray. Dictated and Authenticated by: Barron New MD. Lab Data Lab results reviewed: Yes I reviewed the patient's lab results. Labs: 12/25/23 18:00 Blood Blood Culture - Pending 12/25/23 17:53 Blood Blood Culture - Pending Laboratory Tests Range/Units 12/25/23 12/25/23 12/25/23 18:00 19:00 20:00 WBC (4.4-10.8) 10^3/uL 9.71 RBC (4.36-5.78) 10^6/uL 5.19 Hgb (13.5-17.5) g/dL 14.3 Hct (40.0-50.0) % 43.9 MCV (80-95) fL 85 MCH (27.0-33.0) pg 27.6 MCHC (32.0-36.0) % 32.6 RDW (11.8-14.1) % 14.6 H Plt Count (130-400) 10^3/uL 423 H MPV (8.0-11.0) fL 9.1 Immature Gran % % 0.3 Neutrophils % % 65.5 Lymphocytes % % 23.7 Monocytes % % 7.8 Eosinophils % % 1.8 Basophils % % 0.9 Nucleated RBC % (0.0-0.3) % 0.0 Absolute Neutrophils (1.2-6.7) 10^3/uL 6.36 Absolute Lymphocytes (1.2-3.4) 10^3/uL 2.30 Absolute Monocytes (0.1-0.8) 10^3/uL 0.76 Absolute Eosinophils (0.0-0.7) 10^3/uL 0.17 Absolute Basophils (0.0-0.2) 10^3/uL 0.09 VBG Lactate (0.6-1.4) mmol/L 1.5 H Sodium (136-145) mmol/L 142 Potassium (3.5-5.1) mmol/L 4.3 Chloride (98-107) mmol/L 109 H Carbon Dioxide (21.0-32.0) mmol/L 24.9 Anion Gap (3-11) mmol/L 8.1 BUN (7-18) mg/dL 14 Creatinine (0.70-1.30) mg/dL 1.3 Est GFR (CKD-EPI 2020) (mL/min/1.73m2) 63.68 Glucose (74-106) mg/dL 124 H Calcium (8.5-10.1) mg/dL 9.3 Magnesium (1.8-2.4) mg/dL 1.9 Total Bilirubin (0.2-1.0) mg/dL 0.52 AST (15-37) U/L 8 L ALT (16-63) U/L 12 L Alkaline Phosphatase (46-116) U/L 79 Troponin I (<or=76) ng/L 14 11 NT-Pro-B Natriuret Pep (<300) pg/mL 1181 H Total Protein (6.4-8.2) g/dL 8.0 Albumin (3.4-5.0) g/dL 3.0 L Procalcitonin ng/mL < 0.1 Urine Color (Yellow) Yellow Urine Clarity (Clear) Clear Urine pH (5-8) 6.5 Ur Specific [place] (1.005-1.025) 1.020 Urine Protein (Neg-Trace) mg/dL 30 H Urine Ketones (Negative) mg/dL Negative Urine Blood (Negative) Trace-intact H Urine Nitrite (Negative) Negative Urine Bilirubin (Negative) Negative Urine Urobilinogen (Up to 0.2) mg/dL 0.2 Ur Leukocyte Esterase (Negative) Negative Urine RBC (0-2) HPF 0-2 Urine WBC (0-5) HPF Negative Ur Epithelial Cells (Negative) HPF Rare Urine Crystals (Negative) HPF Negative Urine Bacteria (Negative) HPF Negative Urine Casts (Negative) LPF Negative Urine Mucus (Negative) Negative Ur Culture Indicated? No Urine Glucose (Negative) mg/dL 100 H Quality:SDOH Health Related Social Needs: No Data to Display PFSH All Active Problems (Updated 12/25/23 @ 20:35 by CHIKI Ramey) Cellulitis of right lower extremity (Acute) Sepsis (Acute) Abnormal CT scan, kidney (Acute) Elevated white blood cell count (Acute) Congestive heart failure (CHF) (Chronic) Chronic venous insufficiency (Acute) COVID-19 (Acute) COVID (Acute) Obstructive sleep apnea (Chronic) COPD (chronic obstructive pulmonary disease) (Chronic) Anxiety (Chronic) Leg wound, left (Acute) Medical non-compliance (Acute) Dysphagia (Acute) Dyspnea (Acute) Dyspepsia (Acute) Discharge planning issues (Acute) DVT (deep venous thrombosis) (Chronic) Pneumonia (Acute) Aragon esophagus (Acute) Diabetic neuropathy (Acute) Traumatic hematoma of right upper arm (Acute) Likely due to trauma sustained in the ambulance Anemia due to acute blood loss (Acute) Symptomatic anemia (Acute) 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) (Acute) Opiate dependence (Chronic) managed on suboxone Hypertension (Chronic) Discharge planning issues (Acute) Aortic insufficiency (Acute) s/p valve replacement Diabetes mellitus (Chronic) Acute anemia (Acute) Medical History Hypertensive emergency Cerebral septic emboli causing stroke with residual right hemiparesis and expressive aphasia GI bleed Osteomyelitis of left fibula DVT, lower extremity previously on coumadin Hypomagnesemia Endocarditis G tube feedings Per referral form Zach Sanders 09/18/18 placed by [facility] for endocarditis, no longer using. Displaced bimalleolar fracture of left ankle s/p infection of wound Tinea corporis Chronic pain Depression Right rotator cuff tear Aortic valve endocarditis MSSA (methicillin susceptible Staphylococcus aureus) septicemia Hepatitis C GERD (gastroesophageal reflux disease) Smoker Surgical History S/P endoscopy H/O aortic valve replacement Pericardial aortic valve at [facility] [place] - 08/21/2018 - Magna Ease 25 mm S/P hardware removal L ankle. S/P percutaneous endoscopic gastrostomy (PEG) tube placement History of ankle surgery S/P spinal surgery Family History Father No problems noted. Mother COPD (chronic obstructive pulmonary disease) Hypertension Diabetes Heart disease Sister Stroke Social History (Updated 09/30/23 @ 15:30 by John Singh) Smoking/Tobacco Use Status: Current every day Tobacco Type: cigarettes Smoking risk assessment performed?: Yes Alcohol Intake: never Drug use: Daily Substance use type: marijuana and crack/cocaine Details: cocaine binge the last 2 days 09/29/23, on suboxone, last dose yesterday Caregiver/Support person: Yes Household members: friend(s) Housing: house Number of Children: 0 number of grandchildren: 1 current occupation: Disabled Pets and animals: Yes Pets and animals: cat(s) Current gender identity: male What type of physical activity do you participate in: none Do you feel safe at home: Yes Do you feel safe in your relationship?: Yes Additional Social history: Lives with ex- Vanessa, who is his caregiver. Lives in private home.
--- NOTE | 2023-12-25 18:00 | RT.EKG_ITS ---
APPROVED REPORT Exam: Resting ECG Reason for Exam: bradycardia Patient Location: E HR:40 bpm ECG Measurements Heart Rate 40 AXIS AZ 172 P 44 QRSd 119 QRS 45 QT 507 T 59 QTc 416 Conclusion Sinus bradycardia...rate< 60 Probable left atrial enlargement...P >50mS, <-0.10mV V1 Incomplete right bundle branch block...QRSd >112, terminal axis(90,270)
[2023-12-25 18:15] LABS: Abs Immature Grans 0.03 10^3/uL (0.0-0.06); Absolute Basophil Count 0.09 10^3/uL (0.0-0.2); Absolute Eosinophil Count 0.17 10^3/uL (0.0-0.7); Absolute Monocyte Count 0.76 10^3/uL (0.1-0.8); Absolute Neutrophil Count 6.36 10^3/uL (1.2-6.7); Basophils % 0.9 %; Eosinophils % 1.8 %; HCT 43.9 % (40.0-50.0); HGB 14.3 g/dL (13.5-17.5); Immature Grans % 0.3 %; Lymphocytes % 23.7 %; MCH 27.6 pg (27.0-33.0); MCHC 32.6 % (32.0-36.0); MCV 85 fL (80-95); MPV 9.1 fL (8.0-11.0); Monocytes % 7.8 %; Neutrophils % 65.5 %; Platelet Count 423 10^3/uL (130-400); RBC 5.19 10^6/uL (4.36-5.78); RDW 14.6 % (11.8-14.1); RDW-SD 44.7 fL; WBC 9.71 10^3/uL (4.4-10.8)
[2023-12-25 18:16] LABS: Lactate 1.5 mmol/L (0.6-1.4)
--- NOTE | 2023-12-25 18:17 | DI.RAD_ITS ---
Exam(s) XR CHEST 1V IN DI DEPT EXAM: XR CHEST 1V IN DI DEPT CLINICAL HISTORY: shortness of breath TECHNIQUE: 2D digital imaging was performed of the chest. One image was obtained. An AP view was ob tained. COMPARISON: CR XR CHEST 2V PA LATERAL from 10/11/2023 FINDINGS: MEDIASTINUM: Normal. HEART: Normal. PULMONARY VASCULATURE: Normal. LUNGS: Clear. PLEURAL SPACE: No pleural effusion or pneumothorax. BONE:Within normal limits for the patient's age. Sternal wires are in place. OTHER FINDINGS:Normal. IMPRESSION: No acute pulmonary findings. DATA REPOSITORY: RADIATION DOSE DELIVERED:
[2023-12-25] MEDS: Normal Saline 1,000 ML 1000 ML IV (18:34)
[2023-12-25 18:35] LABS: ALT 12 U/L (16-63); AST 8 U/L (15-37); Alkaline Phosphatase 79 U/L (46-116); Anion Gap 8.1 mmol/L (3-11); BUN 14 mg/dL (7-18); Bilirubin, Total 0.52 mg/dL (0.2-1.0); CO2 24.9 mmol/L (21.0-32.0); CREATININE 1.3 mg/dL (0.70-1.30); Calcium 9.3 mg/dL (8.5-10.1); Chloride 109 mmol/L (98-107); Estimated GFR 63.68 (mL/min/1.73m2); Glucose 124 mg/dL (74-106); Magnesium 1.9 mg/dL (1.8-2.4); Potassium 4.3 mmol/L (3.5-5.1); Sodium 142 mmol/L (136-145)
[2023-12-25 18:41] LABS: NT-proBNP 1181 pg/mL (<300); Troponin I 14 ng/L (<or=76)
[2023-12-25 18:50] LABS: Procalcitonin < 0.1 ng/mL
[2023-12-25] MEDS: Omnipaque 350 MG/ML 100 ML BTL IJ (19:06)
[2023-12-25] MEDS: Normal Saline Flush 10 ML SYR IVP (19:07)
[2023-12-25] MEDS: Normal Saline - Diluent 50 ML VIAL IJ (19:08)
--- NOTE | 2023-12-25 19:32 | DI.CT_ITS ---
Exam(s) CT LOWER EXTREMITY RT W EXAM: CT LOWER EXTREMITY RT W CLINICAL HISTORY: severe R leg infection; mid-calf. TECHNIQUE: Imaging Protocol: Axial CT angiography was performed with multi-slice acquisition and mu lti-planar and/or 3D reconstructions. CONTRAST MATERIAL: Intravenous: Omnipaque 350 Contrast volume:100 mL Oral: No COMPARISON: CR XR TIB/FIB RT from 08/16/2021 FINDINGS: Vascular Structures: Abdomen and pelvis: Visualized iliac Arteries: No evidence of occlusion or significant stenosis. Lower extremities: Right: Femoral: No evidence of occlusion or significant stenosis. Minimal atherosclerosis is present. Deep Femoral Artery: No evidence of occlusion or significant stenosis. Popliteal: No evidence of occlusion or significant stenosis. Knee Trifurcation: No evidence of occlusion or significant stenosis. Minimal atherosclerotic calcific ation is present. Anterior Tibial: No evidence of occlusion or significant stenosis. Posterior Tibial: No evidence of occlusion or significant stenosis. Peroneal:No evidence of occlusion or significant stenosis. Dorsalis Pedis: No evidence of occlusion or significant stenosis. Soft Tissues: Bladder: Symmetric distention, no gross wall thickening. Reproductive organs: Unremarkable as visualized. Bowel: The visualized bowel shows no obstruction or bowel wall thickening. Peritoneal cavity: No ascites, collection or mesenteric inflammatory response. No free air. Bones: Within normal limits for the patient's age. Soft tissues: There is mild edema seen in the subcutaneous tissues of the lower leg. No focal fluid collection is seen to suggest an abscess. The muscles are unremarkable. There is again seen a round BB/foreign body in the soft tissues lateral to the fibula. This is unchanged. IMPRESSION: 1. Normal CT Angiogram of the lower right extremity with minimal atherosclerosis. 2. Mild edema in the right lower leg but no evidence of an abscess. 3. No acute fracture or dislocation. RADIATION DOSE DELIVERED: 1,404.62mGy.cm Total DLP 1,404.62mGy.cm Total DLP 1,404.62mGy.cm Total DLP DATA REPOSITORY: All CT scans at this facility are submitted to the National Radiology Data Registry (NRDR) Dose Index Registry (DIR) with the [employer] (A[employer]). RADIATION OPTIMIZATION: All CT scans at this facility use at least one of these dose optimization te chniques: automated exposure control; mA and/or kV adjustment per patient size (includes targeted exa ms where dose is matched to clinical indication); or iterative reconstruction.
[2023-12-25 19:35] LABS: Troponin I 11 ng/L (<or=76)
[2023-12-25] MEDS: CEFEPIME 2 GM in Normal Saline 100 ML IVPB (19:45)
[2023-12-25 20:10] LABS: Bilirubin Negative (Negative); Blood Trace-intact (Negative); Clarity Clear (Clear); Glucose 100 mg/dL (Negative); Ketones Negative (Negative); Leukocyte Esterase Negative (Negative); Nitrite Negative (Negative); Urobilinogen 0.2 mg/dL (Up to 0.2); pH 6.5 (5-8)
[2023-12-25 20:16] LABS: Epithelial Cells Rare HPF (Negative); RBC 0-2 HPF (0-2); WBC Negative HPF (0-5)
[2023-12-25 20:17] LABS: Bacteria Negative HPF (Negative); C & S Indicated? No; Casts Negative LPF (Negative); Crystals Negative HPF (Negative); Mucus Negative (Negative)
--- NOTE | 2023-12-25 20:32 | DI.VRAD_ITS ---
PROCEDURE INFORMATION: Exam: XR Chest Exam date and time: 12/25/2023 7:25 PM Age: 58 years old Clinical indication: Shortness of breath TECHNIQUE: Imaging protocol: Radiologic exam of the chest. Views: 1 view. COMPARISON: CR XR CHEST 2V PA LATERAL 10/11/2023 11:51 AM FINDINGS: Lungs: Unremarkable. No consolidation. Pleural spaces: Unremarkable. No pleural effusion. No pneumothorax. Heart/Mediastinum: Unremarkable. No cardiomegaly. Bones/joints: Unremarkable. IMPRESSION: Normal one view chest x-ray. Dictated and Authenticated by: Barron New MD. Ordering:WIL Madrigal MD
--- NOTE | 2023-12-25 20:32 | DI.VRAD_ITS ---
Addendum created by Barron New MD on 12/25/2023 8:53:10 PM EST: A small radiopaque foreign body is identified within the subcutaneous soft tissues in the anterolateral subcutaneous tissues adjacent to the mid fibula. Initial report created on 12/25/2023 8:31:54 PM EST: PROCEDURE INFORMATION: Exam: CT Right Lower Extremity Exam date and time: 12/25/2023 7:07 PM Age: 58 years old Clinical indication: Patient HX: Severe leg infection, fever TECHNIQUE: Imaging protocol: CT of the right lower extremity with intravenous contrast was performed. Radiation optimization: All CT scans at this facility use at least one of these dose optimization techniques: automated exposure control; mA and/or kV adjustment per patient size (includes targeted exams where dose is matched to clinical indication); or iterative reconstruction. Contrast material: OMNIPAQUE 350; Contrast volume: 100 ml; Contrast route: INTRAVENOUS (IV); COMPARISON: CR XR ANKLE RT COMPLETE 06/14/2023 8:15 PM FINDINGS: Bones/joints: No fractures are noted. No lytic or blastic lesions identified. Soft tissues: Diffuse subcutaneous soft tissue edema is identified in the lower leg and extending into the ankle. Other findings: No discrete abscess is noted. No erosive changes are identified. IMPRESSION: 1. Diffuse subcutaneous soft tissue edema identified in the right lower leg and extending into the ankle and foot. 2. No discrete abscess identified. 3. No fracture or bony abnormality noted. Dictated and Authenticated by: Barron New MD. Ordering:WIL Madrigal MD
--- NOTE | 2023-12-25 21:58 | W.PM.HP.N ---
Date of service: 12/25/23 Time of Service: 21:32 Assessment and Plan Assessment and plan (1) Cellulitis of right lower extremity: Status: Acute Assessment and plan: Severe cellulitis complicated by type 2 DM, venous insufficiency, foreign body, and recent antibiotic treatment for cellulitis on the other leg in September and October of this year. He has a personal h/o MRSA and at risk for pseudomonas with his DM. I agree with cefepime and vancomycin for now. Blood Cx pending. (2) Bradycardia: Status: Acute Assessment and plan: Unclear etiology for bradycardia. He is on diltizem but describes recently skipping his medications. He certainly could have made a medication error. He denies recent drug use other than cannabis. Pulses in the 30s while in the ED and pacer pads were placed, but he was in the 60s during my exam. GNR infection sometimes a/w bradycardia, but this is unlikely on skin. Not high risk for Lyme, but will test given bradycardia. Will monitor in ICU with phototypesetting equipment monitor overnight (3) Hypertensive urgency: Status: Acute Assessment and plan: No clear signs or symptoms of end-organ damage. He reports poor adherence to prescribed BP regimen. Will given IV furosemide and his oral BP meds his missed recently now and resume his regular medication tomorrow. (4) Diabetes mellitus: Status: Chronic Assessment and plan: Last A1c 6.7 in February on just a GLP-1. Will repeat a1c, monitor and give SS insulin prn. Can continue GLP-1 if he brings from home. Qualifiers: Diabetes mellitus type: type 2 Diabetes mellitus longterm insulin use: without longterm use Diabetes mellitus complication status: with neurologic complications Diabetes mellitus complication detail: with other neurological complication Qualified Code(s): E11.49 - Type 2 diabetes mellitus with other diabetic neurological complication (5) Opiate dependence: Status: Chronic Assessment and plan: He states he missed today's dose, and his pupils and BP are c/w this. Will order now. Qualifiers: Substance use status: uncomplicated Qualified Code(s): F11.20 - Opioid dependence, uncomplicated (6) Smoker: Status: Inactive Assessment and plan: He declines NRT for now, encouraged to consider cessation. 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 Stable. Continue ASA. He does not take statin. (8) DVT prophylaxis: Status: Inactive Assessment and plan: LMWH heparin. His is high risk with h/o DVT. History of Present Illness History of Present Illness Chief Complaint: leg pain Narrative: 58 yo M with history of smoking, CVA with right hemiparesis, polysubstance use with opioid use disorder on buprenorphine, DM, history of DVT, COPD, HFpEF, aortic valve replacement, and history of venous insufficiency and recurrent cellulitis who is presenting with increasing pain and redness of his right lower extremity. He finally came in today be cause he could no longer stand the pain. He has had other infections in his legs, and was last treated for lower extremity cellulitis on his LEFT leg 11/16/23 with clindamycin. This time he states he scraped his right leg on something 3-4 days ago. No there skin sores. Almost immediately after scrape he states the redness started, pain has gotten worse. He hasn't had fever/chills, or nausea or vomiting. He has noted some mild lightheadedness and generally feeling weak and not eating as much. He has not had chest pains, pressure, or palptiations. No headaches or changes to urination. No new focal weakness or numbness. He states he hasn't taken his regular medicaitons in a few days. Last took buprenorphine yesterday 4mg, none today. He denies drug use other than canibis this time. Of note he was admitted 09/29 with clinical CHF after binging on cocaine and left 10/01/23 feeling better after diuresis. He denies any recent cocaine use. Review of Systems All systems reviewed & are unremarkable except as noted in HPI and below PFSH All Active Problems (Updated 12/25/23 @ 22:25 by John Singh) Bradycardia (Acute) Hypertensive urgency (Acute) Cellulitis of right lower extremity (Acute) Sepsis (Acute) Abnormal CT scan, kidney (Acute) Elevated white blood cell count (Acute) Congestive heart failure (CHF) (Chronic) Chronic venous insufficiency (Acute) COVID-19 (Acute) COVID (Acute) COPD (chronic obstructive pulmonary disease) (Chronic) Anxiety (Chronic) Leg wound, left (Acute) Medical non-compliance (Acute) Dysphagia (Acute) Dyspepsia (Acute) Dyspnea (Acute) Discharge planning issues (Acute) DVT (deep venous thrombosis) (Chronic) Pneumonia (Acute) Diabetic neuropathy (Acute) Aragon esophagus (Acute) Traumatic hematoma of right upper arm (Acute) Likely due to trauma sustained in the ambulance Anemia due to acute blood loss (Acute) Symptomatic anemia (Acute) Acute anemia (Acute) Obstructive sleep apnea (Chronic) Discharge planning issues (Acute) Aortic insufficiency (Acute) s/p valve replacement Opiate dependence (Chronic) managed on suboxone 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) (Acute) Diabetes mellitus (Chronic) Hypertension (Chronic) Medical History Cocaine abuse Hypertensive emergency 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 Displaced bimalleolar fracture of left ankle s/p infection of wound Tinea corporis Chronic pain Depression Right rotator cuff tear Aortic valve endocarditis MSSA (methicillin susceptible Staphylococcus aureus) septicemia Hepatitis C GERD (gastroesophageal reflux disease) Surgical History S/P endoscopy H/O aortic valve replacement Pericardial aortic valve at [facility] - 08/21/2018 - Magna Ease 25 mm S/P hardware removal L ankle. S/P percutaneous endoscopic gastrostomy (PEG) tube placement History of ankle surgery S/P spinal surgery Family History Father No problems noted. Mother COPD (chronic obstructive pulmonary disease) Hypertension Diabetes Heart disease Sister Stroke Social History Smoking/Tobacco Use Status: Current every day Tobacco Type: cigarettes Smoking risk assessment performed?: Yes Alcohol Intake: never Drug use: Daily Substance use type: marijuana and crack/cocaine Details: cocaine binge the last 2 days 09/29/23, on suboxone, last dose yesterday Caregiver/Support person: Yes Household members: friend(s) Housing: house Number of Children: 0 number of grandchildren: 1 current occupation: Disabled Pets and animals: Yes Pets and animals: cat(s) Current gender identity: male What type of physical activity do you participate in: none Do you feel safe at home: Yes Do you feel safe in your relationship?: Yes Additional Social history: Lives with ex- Vanessa, who is his caregiver. Lives in private home. Meds Allergies and Home Medications Allergies Allergy/AdvReac Type Severity Reaction Status Date / Time Penicillins AdvReac Severe Vomiting Verified 12/25/23 17:47 hydrocodone AdvReac Intermediate vomiting Verified 12/25/23 17:47 Home Medications ?Medication ?Instructions ?Recorded ?Confirmed ?Type furosemide 40 mg tablet (Lasix) 40 mg PO BID 02/15/19 12/25/23 History esomeprazole magnesium 40 mg 40 mg PO DAILY 05/05/20 12/25/23 History capsule,delayed release (Nexium) aspirin 81 mg tablet 81 mg PO DAILY 08/03/20 12/25/23 History duloxetine 30 mg capsule,delayed 30 mg PO BID 08/03/20 12/25/23 History release acetaminophen 325 mg tablet 1,000 mg PO Q6H PRN 09/27/20 12/25/23 History (Tylenol) umeclidinium 62.5 mcg-vilanterol 1 ea inhalation DAILY 09/27/20 12/25/23 History 25 mcg/actuation powdr for inhalation (Anoro Ellipta) buprenorphine 4 mg-naloxone 1 mg 1 film sublingual DAILY 09/28/20 12/25/23 History sublingual film (Suboxone) albuterol sulfate 90 mcg/actuation 2 inh inhalation Q6H PRN 04/12/22 12/25/23 History aerosol inhaler dulaglutide 4.5 mg/0.5 mL 4.5 mg subcut QWEEK 04/12/22 12/25/23 History subcutaneous pen injector (Trulicity) cyanocobalamin (vitamin B-12) 1,000 mcg PO DAILY 03/06/23 12/25/23 History 1,000 mcg tablet (Vitamin B-12) lisinopril 40 mg tablet 40 mg PO DAILY 06/14/23 12/25/23 History amlodipine 2.5 mg tablet 2.5 mg PO DAILY 09/30/23 12/25/23 History diltiazem HCl 120 mg capsule,24 120 mg PO DAILY 09/30/23 12/25/23 History hr,extended release gabapentin 600 mg tablet 600 mg PO TID 09/30/23 12/25/23 History Exam Narrative Exam Narrative: GEN: Alert and oriented x 4, appears mildly uncomfortable, but cooperative, gives linear history. No acute distress at rest. HEENT: Head atraumatic. Conjunctiva clear, no icterus. PEERL, EOMI, pupils 4-5mm homa room light. no rhinorrhea. MM dry, OP benign. Neck is supple with no masses or lymphadenopathy, trachea midline LUNGS: CTAB with normal effort CV: RRR with no murmurs, gallops, or rubs. ABD: active bowel sounds, soft, nontender and nondistended. No masses. EXT: no cyanosis, clubbing. Homa 1+edema to shins. Right bruno bright red from ankle to below knee, well circumscribed.. >15cm shallow ulceration with whitish exudate in center of red patch on right bruno. ~2cm ellipital shaped pink patch right anterior neck MSK: No joint redness or swelling NEURO: CN 2-12 grossly intact. 4/5 strength RUE, normal left. Normal speech and coordination. No tremor SKIN: No rashes or open wounds. PSYCH: normal slightly withdrawn. Normal thought process. Results Imaging Chest x-ray: report reviewed and image reviewed (no acute cardiopulmonary process) Imaging Studies: CT RLE: 1. Diffuse subcutaneous soft tissue edema identified in the right lower leg and extending into the ankle and foot. 2. No discrete abscess identified. 3. No fracture or bony abnormality noted. 4. circular metallic foreign body Labs 12/25/23 18:00 12/25/23 18:00 Labs: Laboratory Results - last 24 hr 12/25/23 12/25/23 12/25/23 18:00 19:00 20:00 WBC 9.71 RBC 5.19 Hgb 14.3 Hct 43.9 MCV 85 MCH 27.6 MCHC 32.6 RDW 14.6 H Plt Count 423 H MPV 9.1 Immature Gran % 0.3 Neutrophils % 65.5 Lymphocytes % 23.7 Monocytes % 7.8 Eosinophils % 1.8 Basophils % 0.9 Nucleated RBC % 0.0 Absolute Neutrophils 6.36 Absolute Lymphocytes 2.30 Absolute Monocytes 0.76 Absolute Eosinophils 0.17 Absolute Basophils 0.09 VBG Lactate 1.5 H Sodium 142 Potassium 4.3 Chloride 109 H Carbon Dioxide 24.9 Anion Gap 8.1 BUN 14 Creatinine 1.3 Est GFR (CKD-EPI 2020) 63.68 Glucose 124 H Calcium 9.3 Magnesium 1.9 Total Bilirubin 0.52 AST 8 L ALT 12 L Alkaline Phosphatase 79 Troponin I 14 11 NT-Pro-B Natriuret Pep 1181 H Total Protein 8.0 Albumin 3.0 L Procalcitonin < 0.1 Urine Color Yellow Urine Clarity Clear Urine pH 6.5 Ur Specific [place] 1.020 Urine Protein 30 H Urine Ketones Negative Urine Blood Trace-intact H Urine Nitrite Negative Urine Bilirubin Negative Urine Urobilinogen 0.2 Ur Leukocyte Esterase Negative Urine RBC 0-2 Urine WBC Negative Ur Epithelial Cells Rare Urine Crystals Negative Urine Bacteria Negative Urine Casts Negative Urine Mucus Negative Ur Culture Indicated? No Urine Glucose 100 H 12/25/23 21:30 WBC RBC Hgb Hct MCV MCH MCHC RDW Plt Count MPV Immature Gran % Neutrophils % Lymphocytes % Monocytes % Eosinophils % Basophils % Nucleated RBC % Absolute Neutrophils Absolute Lymphocytes Absolute Monocytes Absolute Eosinophils Absolute Basophils VBG Lactate Sodium Potassium Chloride Carbon Dioxide Anion Gap BUN Creatinine Est GFR (CKD-EPI 2020) Glucose Calcium Magnesium Total Bilirubin AST ALT Alkaline Phosphatase Troponin I Cancelled NT-Pro-B Natriuret Pep Total Protein Albumin Procalcitonin Urine Color Urine Clarity Urine pH Ur Specific [place] Urine Protein Urine Ketones Urine Blood Urine Nitrite Urine Bilirubin Urine Urobilinogen Ur Leukocyte Esterase Urine RBC Urine WBC Ur Epithelial Cells Urine Crystals Urine Bacteria Urine Casts Urine Mucus Ur Culture Indicated? Urine Glucose Last Vital Signs Temp 36.1 C L 12/25/23 17:48 Pulse 54 L 12/25/23 20:46 Resp 15 12/25/23 20:50 BP 235/82 H 12/25/23 20:46 Pulse Ox 98 12/25/23 20:50 Time Spent Time spent with Patient: >75 minutes Time was spent: preparing to see the patient(eg.review tests), obtaining and/or reviewing separately otained hiistory, ordering medications,tests, procedures, referring, communicating with other health direct care professional, indepentently interpreting results, counseling the patient and care coordination
[2023-12-25 22:13] LABS: *AMPHETAMINES SCREEN URINE Negative (Negative); *BARBITURATES SCREEN URINE Negative (Negative); *BENZODIAZEPINES SCREEN URINE Negative (Negative); Cannabinoids THC Positive (Negative); Cocaine Screen,Urine Positive (Negative); METHADONE URINE SCREEN Negative (Negative); OPIATES URINE SCREEN Negative (Negative)
[2023-12-25 22:15] LABS: Tricyclic Antidepressants Negative (Negative)
[2023-12-25 22:50] LABS: Troponin I 12 ng/L (<or=76)
[2023-12-25 22:55] LABS: TSH 0.53 uIU/mL (0.36-3.74)
[2023-12-25] MEDS: Lisinopril 20 MG TAB 40 MG PO (23:56)
[2023-12-25] MEDS: amLODIPine 5 MG TAB PO (23:56)
[2023-12-25] MEDS: Furosemide 20 MG/2 ML VIAL IVP (23:56)
[2023-12-25] MEDS: Buprenorphine/Naloxone 4 mg/1 mg FILM 1 EACH SL (23:58)
[2023-12-26] VITALS (58 sets, daily range): BP systolic 126–206; BP diastolic 69–137; PULSE 52–103; RESP 12–30; TEMP 36.2–37.1; O2SAT 91–98
[2023-12-26] MEDS: Gabapentin 300 MG CAP 600 MG PO (05:44)
[2023-12-26 06:19] LABS: Abs Immature Grans 0.03 10^3/uL (0.0-0.06); Absolute Basophil Count 0.06 10^3/uL (0.0-0.2); Absolute Eosinophil Count 0.09 10^3/uL (0.0-0.7); Absolute Lymphocyte Count 1.21 10^3/uL (1.2-3.4); Absolute Monocyte Count 0.74 10^3/uL (0.1-0.8); Absolute Neutrophil Count 7.56 10^3/uL (1.2-6.7); Basophils % 0.6 %; Eosinophils % 0.9 %; HCT 42.3 % (40.0-50.0); HGB 13.7 g/dL (13.5-17.5); Immature Grans % 0.3 %; Lymphocytes % 12.5 %; MCH 27.5 pg (27.0-33.0); MCHC 32.4 % (32.0-36.0); MCV 85 fL (80-95); MPV 9.1 fL (8.0-11.0); Monocytes % 7.6 %; Neutrophils % 78.1 %; Platelet Count 387 10^3/uL (130-400); RBC 4.98 10^6/uL (4.36-5.78); RDW 14.6 % (11.8-14.1); RDW-SD 44.4 fL; WBC 9.69 10^3/uL (4.4-10.8)
[2023-12-26 06:33] LABS: Anion Gap 9.9 mmol/L (3-11); BUN 13 mg/dL (7-18); CO2 28.1 mmol/L (21.0-32.0); CREATININE 1.3 mg/dL (0.70-1.30); Calcium 9.2 mg/dL (8.5-10.1); Chloride 103 mmol/L (98-107); Estimated GFR 63.68 (mL/min/1.73m2); Glucose 136 mg/dL (74-106); Potassium 3.7 mmol/L (3.5-5.1); Sodium 141 mmol/L (136-145)
--- NOTE | 2023-12-26 06:41 | WOUNDCONS ---
Date of service: 12/26/23 Time of Service: 09:49 Wound Initial Evaluation Narrative Narrative: Patient is an unkept 58 year old male admitted on 12/25/23 for recurrent cellulitis and other co-morbidities. Patient is a current smoker with a history of chronic venous insufficiency, CHF, COPD, DM, endocarditis, HTN, Hepatitis C, MSSA septicemia, [place], and opiate dependence managed with suboxone. Patient agreed to wound consult with photo consent signed. Allergies, H &P, recent VS were reviewed. Patient BMI is 25.6. Wound Right Lower Leg: Wound General Appearance: Reddened Wound Bed Greatest Portion: Red (Granulation) Percent of Wound Bed Granulated/Red: 95 Circulation, Sensation, Motion Peripheral Pulse Strength: Normal Pain Pain Level: 10 Additional Other Comments: patient requested home med gabapentin which was given. Wound Summary Wound Summary: The full-thickness 10cm in length wound nearly encircles the right lower leg. Patient is vague when describing duration of present wound. Patient states that wound bed had been scraped for 2-7 days. Intact skin surrounding the wound is thin and frail. Photo Photo: Treatment/Dressing Change Dressing Types: Kerlix (Gauze Roll), Telfa and Xeroform Dressing Comment: Wound cleanser sprayed on gauze and gently dabbed at wound edges. Xeroform (5x9) applied as primary layer. Telfa x2 (3x8) layered onto Xeroform. Kerlix roll applied and wrapped around lower extremity for securement Nutrition Education Reviewed Nutrition Education: Yes Note: Patient has dentition challenges. Discussion ensued with increased protein for optimal wound healing. Nutrient supplementation with meals would be ideal for [place]. Recomendation Recomendation:: Remove Kerlix wrap, Telfa, and Xeroform every 3 days and as needed If patient is able to tolerate, apply wound cleanser let dwell for 2 minutes then pat dry with gauze Apply Xeroform (5x9 works well) as a primary layer On top of Xeroform, layer non-adherent Telfa x2 (3x8 works well) or Opti-Lock for absorbency Lastly wrap lower extremity with Kerlix gauze. Avoid tape, secure by tucking in Kerlix flap or apply stockinette when patient is ambulating Have right lower extremity elevated on a pillow when lying in bed Avoid adhesives on the frail skin surrounding the wound Physcian/Nurse Practioner Notified: Yes Treatment Time Time Total Time Spent with Patient: 60 minutes
[2023-12-26 06:52] LABS: Hemoglobin A1C 5.9 % (<5.7)
[2023-12-26] MEDS: Tiotropium/Olodaterol 10 PUFF INHALER 2 PUFF IH (08:11)
--- NOTE | 2023-12-26 08:56 | DI.RAD_ITS ---
Exam(s) XR TIB/FIB RT EXAM: XR TIB/FIB RT CLINICAL HISTORY: Foreign body noted on CT scan, lateral to fibula.. TECHNIQUE: 2D digital imaging was performed of the right tibia and fibula. Images were obtained. A P and lateral views were obtained. COMPARISON: CR XR TIB/FIB RT from 08/16/2021 FINDINGS: BONES: No acute fracture is present. No bony destructive lesion is seen. Visualized portion of knee a nd ankle joints are unremarkable. SOFT TISSUE: The round BB has been in place since 08/16/2021 and is unchanged. Mild atherosclerotic c alcification is present. IMPRESSION: 1. No osseous abnormalities identified. 2. Stable round BB in the soft tissues since 08/16/2021. DATA REPOSITORY: RADIATION DOSE DELIVERED:
[2023-12-26] MEDS: CEFEPIME 2 GM in Normal Saline 100 ML IVPB ×2 (09:15→16:45)
[2023-12-26] MEDS: Buprenorphine/Naloxone 4 mg/1 mg FILM 1 EACH SL (09:15)
[2023-12-26] MEDS: Enoxaparin 40 MG/0.4 ML SYR SC (09:16)
[2023-12-26] MEDS: Insulin Aspart 300 UNITS/3 ML PEN SC ×3 (09:16→16:51)
[2023-12-26] MEDS: DULoxetine 30 MG CAP PO ×2 (09:17→20:25)
[2023-12-26] MEDS: Gabapentin 600 MG TAB PO ×3 (09:17→20:08)
[2023-12-26] MEDS: amLODIPine 2.5 MG TAB PO (09:18)
[2023-12-26] MEDS: Furosemide 40 MG TAB PO ×2 (09:18→16:45)
[2023-12-26] MEDS: Cyanocobalamin 500 MCG TAB 1000 MCG PO (09:18)
[2023-12-26] MEDS: Aspirin 81 MG CHEW CH (09:18)
[2023-12-26] MEDS: Lisinopril 20 MG TAB 40 MG PO (09:18)
--- NOTE | 2023-12-26 10:01 | INITIAL_ITS ---
Date of service: 12/26/23 Time of Service: 10:01 Care Management Initial Assmt Initial Assessment Reason for Hospitalization: cellulitis Functional Status/Living Situation Patient Presentation: Mio was sitting up in bed in the ICU when CM met with him. He was pleasant in interaction and engaged easily with CM. Mio was admitted with cellulitis, bradycardia and hypertension. He informed CM that the wound on his leg is really bad. Mio lives with his ex- Vanessa who is also his paid caregiver through [employer]. He has 2 stepchildren; a 17 year old son who lives with them and a 30 year old daughter. doctor. Vanessa has been caring for the wound at home since the injury a few days ago. Mio does not receive any services outside of the care Vanessa provides. He informed CM that he can mostly bathe himself and prepare some meals but Vanessa does most of the cooking. He describes her as his best friend and stated he considers her his doctor. Town of Residence: [place] Resides with: Spouse (lives with ex-) Significant Other/Family: Local Caregiver/Guardian: ex- Vanessa Natural Supports: Vanessa and children Employment Status: Disabled Instrumental Activities of Daily Living (ADLs): Requires support Medications Medication Management: No Issues/Barriers identified Physical Functioning/Mobility Assistive Device: uses a walker routinely has a w/c for use when needed Advance Directives Advance Directives: Do you have an Advance Directive: Y 10/10/19 10:02 AD On File at [facility]: N 06/07/12 08:23 Date Asked 12/25/23 12/25/23 17:40 AD Date Reviewed COLST On File at [facility] No 09/29/23 21:52 COLST Date Scanned Code Status Resuscitation Status Full Code Portal Pt does not currently have a portal and education provided: No Portal Education: Patient declined Insurance Coverage/Financial Issues Insurance: Medicaid Care Team Visit Care Team Role Provider Type Evon Howard MD Primary Care Provider [facility] STAFF PHYSICIAN Leonor Taylor MD Other Providers NON-[facility] STAFF PHYSICIAN CHIKI Batres Other Providers PHYSICIANS ASSISTANT Nadine Sue [facility] Other Providers [facility] STAFF PHYSICIAN Ethan Cruz IV, MD Other Providers [facility] STAFF PHYSICIAN Da Gonzales MD Other Providers CONSULTING PHYSICIAN Brant Dunbar MD Other Providers CONSULTING PHYSICIAN Arya Boggs MD Other Providers NON-[facility] STAFF PHYSICIAN Arya Robins, DO Other Providers CONSULTING PHYSICIAN Zach Decker MD Other Providers [facility] STAFF PHYSICIAN Saturnino Rojas Other Providers CONSULTING PHYSICIAN Beata Ang MD Other Providers [facility] STAFF PHYSICIAN Ulises Frank MD Other Providers CONSULTING PHYSICIAN Sheryl Asif, DO Other Providers OSTEOPATHIC DOCTOR Joelle Reeves, DO Other Providers CONSULTING PHYSICIAN Manpreet Telles MD Other Providers CONSULTING PHYSICIAN Cristal Eason, DO Other Providers OSTEOPATHIC DOCTOR Renato Bryan, DO Other Providers CONSULTING PHYSICIAN Dominique Green Other Providers NON-[facility] STAFF PHYSICIAN Deangelo Najera MD Other Providers [facility] STAFF PHYSICIAN Estrella Chaves, DO Other Providers OSTEOPATHIC DOCTOR Uriel Rodriguez, DO Other Providers OSTEOPATHIC DOCTOR CHIKI Ramey Emergency Provider [facility] John Singh Admit Provider [facility] STAFF PHYSICIAN Attending Provider Discharge Potential Discharge Needs: PCP F/U Appt Anticipated Barriers to Discharge: None Identified Patient/Family Education Needs: Review discharge instructions, discuss Ask Me Three Transportation: Private vehicle Plan: Anticipate Mio will be discharged back to his home with a resumption of caregiver services. He may benefit from new homehealth services for wound care when discharged. He will follow up with his PCP and plan of care and transport with family. CM will follow and continue to support discharge planning needs. PFSH All Active Problems (Updated 12/25/23 @ 22:25 by John Singh) Bradycardia (Acute) Cellulitis of right lower extremity (Acute) Sepsis (Acute) Abnormal CT scan, kidney (Acute) Elevated white blood cell count (Acute) Congestive heart failure (CHF) (Chronic) Chronic venous insufficiency (Acute) COVID-19 (Acute) COVID (Acute) Obstructive sleep apnea (Chronic) COPD (chronic obstructive pulmonary disease) (Chronic) Anxiety (Chronic) Leg wound, left (Acute) Medical non-compliance (Acute) Hypertensive urgency (Acute) Dysphagia (Acute) Dyspnea (Acute) Dyspepsia (Acute) Discharge planning issues (Acute) DVT (deep venous thrombosis) (Chronic) Pneumonia (Acute) Aragon esophagus (Acute) Diabetic neuropathy (Acute) Traumatic hematoma of right upper arm (Acute) Likely due to trauma sustained in the ambulance Anemia due to acute blood loss (Acute) Symptomatic anemia (Acute) 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) (Acute) Opiate dependence (Chronic) managed on suboxone Hypertension (Chronic) Discharge planning issues (Acute) Aortic insufficiency (Acute) s/p valve replacement Diabetes mellitus (Chronic) Acute anemia (Acute) Medical History Cocaine abuse Hypertensive emergency 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 Displaced bimalleolar fracture of left ankle s/p infection of wound Tinea corporis Chronic pain Depression Right rotator cuff tear Aortic valve endocarditis MSSA (methicillin susceptible Staphylococcus aureus) septicemia Hepatitis C GERD (gastroesophageal reflux disease) Surgical History S/P endoscopy H/O aortic valve replacement Pericardial aortic valve at [facility] - 08/21/2018 - Magna Ease 25 mm S/P hardware removal L ankle. S/P percutaneous endoscopic gastrostomy (PEG) tube placement History of ankle surgery S/P spinal surgery Family History Father No problems noted. Mother COPD (chronic obstructive pulmonary disease) Hypertension Diabetes Heart disease Sister Stroke Social History Smoking/Tobacco Use Status: Current every day Tobacco Type: cigarettes Smoking risk assessment performed?: Yes Alcohol Intake: never Drug use: Daily Substance use type: marijuana and crack/cocaine Details: cocaine binge the last 2 days 09/29/23, on suboxone, last dose yesterday Caregiver/Support person: Yes Household members: friend(s) Housing: house Number of Children: 0 number of grandchildren: 1 current occupation: Disabled Pets and animals: Yes Pets and animals: cat(s) Current gender identity: male What type of physical activity do you participate in: none Do you feel safe at home: Yes Do you feel safe in your relationship?: Yes Additional Social history: Lives with ex- Vanessa, who is his caregiver. Lives in private home. SDOH(Care Management) Screening Will the Patient Participate in the Screening?: Yes Do you worry about having a steady place to live?: yes Problems where you live: other In the past 12 months, have you had to go without electric, gas, oil or water in your home?: no Have you or anyone in your house had to go without enough food to eat?: no Has lack of transportation kept you from medical appointments or from doing things needed for daily living?: no Has anyone in your support network made you feel unsafe for any reason?: no Health Related Social Needs Health related social needs: housing instability, housed, with risk of homelessness(Z59.811)
[2023-12-26] MEDS: dilTIAZem 60 MG TAB PO ×2 (12:12→20:08)
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
[2023-12-26 14:10] LABS: Vancomycin, Random 11.8 ug/mL
[2023-12-26] MEDS: VANCOMYCIN/WATER (PEG) 1.25 GM/250 ML BAG IV (14:31)
[2023-12-26] MEDS: Normal Saline Flush 10 ML SYR IVP ×2 (14:33→16:45)
[2023-12-26] MEDS: Acetaminophen 500 MG TAB 1000 MG PO (16:45)
[2023-12-27] VITALS (8 sets, daily range): BP systolic 120–158; BP diastolic 70–95; PULSE 64–86; RESP 16–18; TEMP 36.2–36.8; O2SAT 94–98
--- NOTE | 2023-12-27 00:12 | W.PC.ACHO ---
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 Pt states it has been there x 2 days. Pt appears pale, diaphoretic. Type II DM Medical / Surgical History (Last Reviewed 12/25/23 @ 22:11 by John Singh) Cocaine abuse Hypertensive emergency Cerebral septic emboli GI bleed Osteomyelitis of left fibula DVT, lower extremity Hypomagnesemia Endocarditis G tube feedings Displaced bimalleolar fracture of left ankle Tinea corporis Chronic pain Depression Right rotator cuff tear Aortic valve endocarditis MSSA (methicillin susceptible Staphylococcus aureus) septicemia Hepatitis C GERD (gastroesophageal reflux disease) (Last Reviewed 12/25/23 @ 22:11 by John Singh) S/P endoscopy H/O aortic valve replacement S/P hardware removal S/P percutaneous endoscopic gastrostomy (PEG) tube placement History of ankle surgery S/P spinal surgery Most Recent Vital Signs Temperature 36.6 C 12/26/23 20:01 Temperature Source Temporal Artery Scan 12/26/23 17:19 Pulse 61 12/26/23 23:01 Pulse 64 12/26/23 23:01 Respiratory Rate 18 12/26/23 16:30 Respiratory Effort Non-Labored 12/25/23 23:14 Blood Pressure 131/71 12/26/23 23:01 Blood Pressure Mean 87 12/26/23 23:01 Blood Pressure Position Supine 12/25/23 23:14 Pulse Oximetry 96 12/26/23 23:01 Oxygen Delivery Method Room Air 12/26/23 17:19 Oxygen Flow Rate 0 12/26/23 17:19 Pain Level 10 12/26/23 09:45 Comment see captured vitals 12/26/23 08:00 Allergies Penicillins Adverse Reaction (Severe, Verified 12/25/23 17:47) Vomiting hydrocodone Adverse Reaction (Intermediate, Verified 12/25/23 17:47) vomiting Precautions Isolation Standard precaution 12/25/23 17:48 Active Medications Generic Name Dose Route Start Last Admin Trade Name Freq PRN Reason Stop Dose Admin Acetaminophen 1,000 mg 12/26/23 00:14 12/26/23 16:45 Acetaminophen 500 Mg Tab PO 1,000 mg Q6H PRN PRN Administration Amlodipine Besylate 2.5 mg 12/26/23 08:30 12/26/23 09:18 Amlodipine 2.5 Mg Tab PO 2.5 mg DAILY HAMLET Administration Aspirin 81 mg 12/26/23 08:30 12/26/23 09:18 Aspirin 81 Mg Chew CH 81 mg DAILY HAMLET Administration Buprenorphine/Naloxone 1 each 12/26/23 08:30 12/26/23 09:15 Buprenorphine/Naloxone 4 Mg/1 Mg Film SL 1 each DAILY HAMLET Administration Cyanocobalamin 1,000 mcg 12/26/23 08:30 12/26/23 09:18 Cyanocobalamin 500 Mcg Tab PO 1,000 mcg DAILY HAMLET Administration Diltiazem HCl 60 mg 12/26/23 11:35 12/26/23 20:08 Diltiazem 60 Mg Tab PO 60 mg BID HAMLET Administration Duloxetine HCl 30 mg 12/26/23 08:30 12/26/23 20:25 Duloxetine 30 Mg Cap PO 30 mg BID HAMLET Administration Enoxaparin Sodium 40 mg 12/26/23 10:00 12/26/23 09:16 Enoxaparin 40 Mg/0.4 Ml Syr SC 40 mg Q24H HAMLET Administration Esomeprazole Magnesium 40 mg 12/26/23 07:30 12/26/23 09:26 Esomeprazole 40 Mg Capcr PO Not Given 0730 [facility] Furosemide 40 mg 12/26/23 08:30 12/26/23 16:45 Furosemide 40 Mg Tab PO 40 mg 0830,1600 HAMLET Administration Gabapentin 600 mg 12/26/23 08:30 12/26/23 20:08 Gabapentin 600 Mg Tab PO 600 mg TID HAMLET Administration Vancomycin/PEG/NADA/Lysine/Water 1.25 gm in 250 mls @ 166.667 mls/hr 12/26/23 14:00 12/26/23 14:31 Vancocin Injection IV 166.667 mls/hr Q18H [facility] Administration Cefepime HCl 2 gm/ Sodium 100 mls @ 200 mls/hr 12/26/23 16:00 12/26/23 20:19 Chloride IVPB Infused Q8H HAMLET Infusion Insulin Aspart 0 - 9 units 12/26/23 08:00 12/26/23 16:51 Insulin Aspart 300 Units/3 Ml Pen SC 2 unit 0800,1200,1700 HAMLET Administration Protocol Lisinopril 40 mg 12/26/23 08:30 12/26/23 09:18 Lisinopril 20 Mg Tab PO 40 mg DAILY HAMLET Administration Sodium Chloride 0 ml 12/25/23 19:07 12/26/23 16:45 Normal Saline Flush 10 Ml Syr IVP 20 ml PRN PRN Administration Tiotropium [place]/Olodaterol 2 puff 12/26/23 08:30 12/26/23 08:11 Tiotropium/Olodaterol 10 Puff Inhaler IH 2 puffs DAILY HAMLET Administration IV IV Catheter Type [Left Saline Lock Antecubital] IV Catheter Gauge [Left 18 Antecubital] Diagnostics 12/27/23 12/26/23 12/26/23 Range/Units 05:35 12:31 05:40 WBC Pending 9.69 (4.4-10.8) 10^3/uL RBC Pending 4.98 (4.36-5.78) 10^6/uL Hgb Pending 13.7 (13.5-17.5) g/dL Hct Pending 42.3 (40.0-50.0) % MCV Pending 85 (80-95) fL MCH Pending 27.5 (27.0-33.0) pg MCHC Pending 32.4 (32.0-36.0) % RDW Pending 14.6 H (11.8-14.1) % Plt Count Pending 387 (130-400) 10^3/uL MPV Pending 9.1 (8.0-11.0) fL Immature Gran % 0.3 % Neutrophils % 78.1 % Lymphocytes % 12.5 % Monocytes % 7.6 % Eosinophils % 0.9 % Basophils % 0.6 % Nucleated RBC % 0.0 (0.0-0.3) % Absolute Neutrophils 7.56 H (1.2-6.7) 10^3/uL Absolute Lymphocytes 1.21 (1.2-3.4) 10^3/uL Absolute Monocytes 0.74 (0.1-0.8) 10^3/uL Absolute Eosinophils 0.09 (0.0-0.7) 10^3/uL Absolute Basophils 0.06 (0.0-0.2) 10^3/uL Sodium Pending 141 (136-145) mmol/L Potassium Pending 3.7 (3.5-5.1) mmol/L Chloride Pending 103 (98-107) mmol/L Carbon Dioxide Pending 28.1 (21.0-32.0) mmol/L Anion Gap Pending 9.9 (3-11) mmol/L BUN Pending 13 (7-18) mg/dL Creatinine Pending 1.3 (0.70-1.30) mg/dL Est GFR (CKD-EPI 2020) Pending 63.68 (mL/min/1.73m2) Glucose Pending 136 H (74-106) mg/dL Hemoglobin A1c 5.9 H (<5.7) % Calcium Pending 9.2 (8.5-10.1) mg/dL Random Vancomycin 11.8 ug/mL 12/25/23 18:30 Blood Culture - Preliminary Blood NO GROWTH 24 HOURS 12/25/23 18:00 Blood Culture - Preliminary Blood NO GROWTH 24 HOURS [id number] Documentation Fingerstick Glucose Start: 12/25/23 17:54 Freq: Status: Complete Protocol: Activity Type Activity Date Activity User E-sign Co-sign Detail Recorded Client Recorded Date Recorded By Document 12/25/23 17:49 BKG DAEMON(5) [id number] 12/25/23 17:54 BKG DAEMON(6) Fingerstick Glucose Start: 12/25/23 21:51 Freq: .AC Status: Active Protocol: Activity Type Activity Date Activity User E-sign Co-sign Detail Recorded Client Recorded Date Recorded By Document 12/26/23 16:51 BKG DAEMON(7) [id number] 12/26/23 17:02 BKG DAEMON(8) Intake and Output - 24 Hour Total 12/25/23 17:37 thru 12/26/23 20:19 Intake Total 2590 Output Total 4350 Balance -1760 Weight 83.4 kg Intake: IV 1300 Oral 1290 Output: Urine 4350 Other: Urine Color Pale Yellow Urine Appearance Clear Urine Odor Normal Falls Risk Assessment History of Falls Previous History 12/25/23 23:14 Contributing Factors Impairments 12/25/23 23:14 Ambulatory Aids Uses ambulatory device + 12/25/23 23:14 Tubes/Lines With any additional score 12/25/23 23:14 Gait Evaluation W/any additional score 12/25/23 23:14 Cognition No cognitive impairment 12/25/23 23:14 Fall Total Score 88 12/25/23 23:14 Level of Risk Maximum Risk 12/25/23 23:14 Problems (Last Reviewed 12/25/23 @ 22:11 by John Singh) Bradycardia (Acute) Cellulitis of right lower extremity (Acute) Hypertensive urgency (Acute) 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) (Acute) Opiate dependence (Chronic) Diabetes mellitus (Chronic) v v v v v v v v v Sending and/or Receiving Nurses: Please use comment section below to note any information pertinent to the patient hand-off not included above. Information / Comments: AAOX3, right leg wound dressing C/D/I, pt has not got up oob - q2 repos, uses urinal w/o assist. Pt had a previous stroke so right side weakness including right hand contracture. Report received from: Buzz SANTAMARIA RN
[2023-12-27] MEDS: CEFEPIME 2 GM in Normal Saline 100 ML IVPB ×3 (00:28→19:52)
[2023-12-27] MEDS: Acetaminophen 500 MG TAB 1000 MG PO ×3 (00:28→19:51)
[2023-12-27 07:09] LABS: HCT 42.6 % (40.0-50.0); MCHC 32.9 % (32.0-36.0); MCV 82 fL (80-95); Platelet Count 406 10^3/uL (130-400); RBC 5.18 10^6/uL (4.36-5.78); RDW 14.4 % (11.8-14.1); RDW-SD 43.1 fL; WBC 8.28 10^3/uL (4.4-10.8)
[2023-12-27 07:37] LABS: Anion Gap 10.4 mmol/L (3-11); BUN 18 mg/dL (7-18); CO2 26.6 mmol/L (21.0-32.0); CREATININE 1.5 mg/dL (0.70-1.30); Calcium 9.1 mg/dL (8.5-10.1); Chloride 103 mmol/L (98-107); Estimated GFR 53.63 (mL/min/1.73m2); Glucose 140 mg/dL (74-106); Potassium 3.4 mmol/L (3.5-5.1); Sodium 140 mmol/L (136-145)
[2023-12-27] MEDS: Tiotropium/Olodaterol 10 PUFF INHALER 2 PUFF IH (08:01)
[2023-12-27] MEDS: Buprenorphine/Naloxone 4 mg/1 mg FILM 1 EACH SL (08:03)
[2023-12-27] MEDS: Cyanocobalamin 500 MCG TAB 1000 MCG PO (08:04)
[2023-12-27] MEDS: Gabapentin 600 MG TAB PO ×3 (08:04→19:50)
[2023-12-27] MEDS: Aspirin 81 MG CHEW CH (08:04)
[2023-12-27] MEDS: Esomeprazole 40 MG CAPCR PO (08:04)
[2023-12-27] MEDS: amLODIPine 2.5 MG TAB PO (08:04)
[2023-12-27] MEDS: DULoxetine 30 MG CAP PO ×2 (08:04→19:51)
[2023-12-27] MEDS: Furosemide 40 MG TAB PO ×2 (08:04→15:51)
[2023-12-27] MEDS: Lisinopril 20 MG TAB 40 MG PO (08:05)
[2023-12-27] MEDS: Normal Saline Flush 10 ML SYR IVP ×2 (08:05→19:51)
[2023-12-27] MEDS: Insulin Aspart 300 UNITS/3 ML PEN SC (08:38)
[2023-12-27] MEDS: dilTIAZem 60 MG TAB PO ×2 (08:38→19:50)
[2023-12-27] MEDS: VANCOMYCIN/WATER (PEG) 1.25 GM/250 ML BAG IV (09:00)
--- NOTE | 2023-12-27 09:45 | PDOC.CMPRO ---
Date of service: 12/27/23 Time of Service: 09:46 Care Management Progress Note Progress Note Text Progress Note Text: Mio was sitting up in bed when CM met with him. He was pleasant in manner and agreeable to conversation. Mio stated that he is feeling better today and his leg is less painful. Mio's vital signs are stable and he remains afebrile. It is expected that Mio will remain hospitalized for at least a few more days to continue his IV antibiotic therapy. Per providers, no surgical intervention is warranted at this time. Discharge Potential Discharge Needs: PCP F/U Appt and Surgical F/U Appt Anticipated Barriers to Discharge: Medical Status Patient/Family Education Needs: Review discharge instructions, discuss Ask Me Three Transportation: Private vehicle Plan: Anticipate Mio will be discharged back to his home with a resumption of caregiver services. He may benefit from new homehealth services for wound care when discharged. He will follow up with his PCP and plan of care and transport with family. CM will follow and continue to support discharge planning needs. SDOH(Care Management) Screening Will the Patient Participate in the Screening?: Yes Do you worry about having a steady place to live?: yes Problems where you live: other In the past 12 months, have you had to go without electric, gas, oil or water in your home?: no Have you or anyone in your house had to go without enough food to eat?: no Has lack of transportation kept you from medical appointments or from doing things needed for daily living?: no Has anyone in your support network made you feel unsafe for any reason?: no Health Related Social Needs Health related social needs: housing instability, housed, with risk of homelessness(Z59.811)
[2023-12-27] MEDS: Enoxaparin 40 MG/0.4 ML SYR SC (10:00)
--- NOTE | 2023-12-27 11:28 | PHA.REVIEW2 ---
Pharmacy Admission Review Admission Clinical Review Admission Pharmacy Review: Bradycardia (Acute) Cellulitis of right lower extremity (Acute) Hypertensive urgency (Acute) 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) (Acute) Penicillins Adverse Reaction (Severe, Verified 12/25/23 17:47) Vomiting hydrocodone Adverse Reaction (Intermediate, Verified 12/25/23 17:47) vomiting Resuscitation Status Full Code Height 5 ft 11 in Weight 77.7 kg Pharmacy Admission Review Renal Dosing Renal Dosing: BUN 18 mg/dL (7-18) 12/27/23 06:37 Creatinine 1.5 mg/dL (0.70-1.30) H 12/27/23 06:37 Medications needing adjustments: Intervened (CrCl 58 ml/min, SCr increased from 1.3) List of meds needing interventions: Changed cefepime from 2g q8h to 2g q12h due to CrCl < 60, provider aware Anticoagulation Anticoagulation: Hgb 14.0 g/dL (13.5-17.5) 12/27/23 06:37 Hct 42.6 % (40.0-50.0) 12/27/23 06:37 Plt Count 406 10^3/uL (130-400) H 12/27/23 06:37 Creatinine 1.5 mg/dL (0.70-1.30) H 12/27/23 06:37 DVT Prophylaxis: Reviewed Medications: Enoxaparin (40mg daily) Relevant Labs Relevant Labs: Sodium 140 mmol/L (136-145) 12/27/23 06:37 Potassium 3.4 mmol/L (3.5-5.1) L 12/27/23 06:37 Chloride 103 mmol/L (98-107) 12/27/23 06:37 Magnesium 1.9 mg/dL (1.8-2.4) 12/25/23 18:00 Electrolytes, C-Reactive P, ESR: Reviewed (K 3.4) DM Control DM Control: Glucose 140 mg/dL (74-106) H 12/27/23 06:37 Hemoglobin A1c 5.9 % (<5.7) H 12/26/23 05:40 Finger Stick Blood Glucose 291 0838 Finger Stick Blood Glucose 291 0820 Finger Stick Blood Glucose 291 0820 DM Control: Reviewed Insulin Dosing, Diabetic Medication: Has order for SS insulin Cardiac Review Cardiac Review: Troponin I 12 ng/L (<or=76) 12/25/23 22:25 NT-Pro-B Natriuret Pep 1181 pg/mL (<300) H 12/25/23 18:00 Blood Pressure 120/83 1119 Blood Pressure 158/95 0726 Blood Pressure 148/88 0443 Blood Pressure 145/90 0054 BP, HR, EF%: Reviewed (HR WNL) List meds needing interventions: Has order for amlodipine 2.5mg daily, diltiazem 60mg BID, furosemide 40mg BID and lisinopril 40mg daily QTc Review QTc: Reviewed (416 from 12/25/23) IV to PO Switch IV Medications: Reviewed (cefepime and vancomycin) Home Meds Home Med List reviewed: Intervened Relevent Home Meds Not ordered & why?: Trulicity (on hold - see comment below) Patient recently filled prescription for Qvar inhaler but is not on home med list. Asked nurse to check with patient to see if he takes this at home. Waiting to hear back. Order for patients Trulicity was pending, it was due this past Monday but was never brought in from home for patient. Spoke about it today with provider during morning meeting. Provider asked that I cancel the order and will hold it while patient is inpatient. Current Meds Current Medication Order Review: Intervened Comments: Added IV admission order set Pharmacy Antibiotic Review Relevant Labs: WBC 8.28 10^3/uL (4.4-10.8) 12/27/23 06:37 Procalcitonin < 0.1 ng/mL 12/25/23 18:00 Temperature 36.4 C Temperature 36.3 C Temperature 36.3 C Temperature 36.2 C Microbiology 12/25/23 18:30 Blood Culture - Preliminary Blood NO GROWTH 24 HOURS 12/25/23 18:00 Blood Culture - Preliminary Blood NO GROWTH 24 HOURS Pharmacy Antibiotic Activity: C/S review and Reviewed, no change Comments: Patient is on cefepime and vancomycin, day 2, for cellulitis. Current dose is 1250mg q18h with predicted AUC of 569 and trough of 17.5. When I add new SCr of 1.5 both AUC and trough are supratherapeutic values. Due to change in renal function today I ordered another level for tonight at 2200. Will adjust dose as needed based on level.
--- NOTE | 2023-12-27 13:05 | PGE_ITS ---
Date of Service Date of service: 12/27/23 Time of Service: 13:05 Assessment and Plan Assessment and plan (1) Cellulitis of right lower extremity: Status: Acute Assessment and plan: -Severe cellulitis complicated by type 2 DM, venous insufficiency, foreign body, and recent antibiotic treatment for cellulitis on the other leg in September and October of this year. -h/o MRSA and at risk for pseudomonas with his DM. -started on cefepime and vancomycin in the ED, will continue -f/u blood culture results (2) Bradycardia: Status: Acute Assessment and plan: -Unclear etiology for bradycardia, documented down to low 40's but ED stated down to mid 30's -has been on PO long acting dilt which has been held since admission -as of AM 12/25 BP up to 190's systolic and HR in the 80's -BP and HR now stabilized with PO short acting dilt 60mg PO; continue to monitor HR and BP (3) Hypertensive urgency: Status: Acute Assessment and plan: -No clear signs or symptoms of end-organ damage. -He reports poor adherence to prescribed BP regimen. given IV furosemide on admission -continue oral BP meds with the exception of change to dlit as noted above (4) Diabetes mellitus: Status: Chronic Assessment and plan: -Last A1c 6.7 in February on just a GLP-1. -repeat a1c 5.9 -monitor and give SS insulin prn. -Can continue GLP-1 if he brings from home. Qualifiers: Diabetes mellitus type: type 2 Diabetes mellitus [facility] insulin use: without terminal computer operator use Diabetes mellitus complication status: with neurologic complications Diabetes mellitus complication detail: with other neurological complication Qualified Code(s): E11.49 - Type 2 diabetes mellitus with other diabetic neurological complication (5) Opiate dependence: Status: Chronic Assessment and plan: He states he missed dose on day of admission, and his pupils and BP are c/w this. Will order now. Qualifiers: Substance use status: uncomplicated Qualified Code(s): F11.20 - Opioid dependence, uncomplicated (6) Smoker: Status: Inactive Assessment and plan: He declines NRT for now, encouraged to consider cessation. 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 Stable. Continue ASA. He does not take statin. (8) DVT prophylaxis: Status: Inactive Assessment and plan: LMWH heparin. His is high risk with h/o DVT. Subjective Subjective Interval history since last seen: Patient states that he is feeling much better and that his leg pain has improved. He also notices that the redness above and below his bandage is beginning to recede. Otherwise he has no other complaints or concerns at this time. Exam Narrative Exam Narrative: Chronically ill, fatigued appearing gentleman. Older than stated age laying in bed in no acute distress, ANO x 4, heart regular rhythm, lungs clear to auscult ation bilaterally, abdomen soft, nontender, nondistended, right lower extremity wrapped in gauze with proximal erythema having now receded under a lot of the bandage, and distal erythema having initially been down to the midfoot now having receded to above the ankle Objective Last Vital Signs Temp 97.5 F L 12/27/23 11:19 Pulse 80 12/27/23 11:19 Resp 18 12/27/23 11:19 BP 120/83 12/27/23 11:19 Pulse Ox 95 12/27/23 11:19 Laboratory Results - last 24 hr 12/26/23 12/27/23 12:31 06:37 WBC 8.28 RBC 5.18 Hgb 14.0 Hct 42.6 MCV 82 MCH 27.0 MCHC 32.9 RDW 14.4 H Plt Count 406 H MPV 9.0 Sodium 140 Potassium 3.4 L Chloride 103 Carbon Dioxide 26.6 Anion Gap 10.4 BUN 18 Creatinine 1.5 H Est GFR (CKD-EPI 2020) 53.63 Glucose 140 H Calcium 9.1 Random Vancomycin 11.8 Time Spent with Patient Time Spent with Patient: >50 minutes Time was spent: preparing to see the patient(eg.review tests), obtaining and/or reviewing separately otained hiistory, ordering medications,tests, procedures, referring, communicating with other health physician locums urgent care, indepentently interpreting results, counseling the patient and care coordination
--- NOTE | 2023-12-27 13:10 | CHAPLAIN ---
Mio was resting in bed when I visited, watching tv. He said he is fine and did not seem interested in further conversation, but was pleasant and engaged in a short conversation. His exwife, Vanessa, is his paid caregiver at home.
[2023-12-27 22:35] LABS: Vancomycin, Random 21.2 ug/mL
[2023-12-28 02:48] VITALS: BP 149/87; PULSE 73; RESP 20; TEMP 36.6; O2SAT 98
[2023-12-28] MEDS: VANCOMYCIN/WATER (PEG) 1 GM/200 ML BAG IV ×2 (03:31→22:00)
[2023-12-28 06:30] LABS: HGB 13.7 g/dL (13.5-17.5); MCH 27.2 pg (27.0-33.0); MCHC 32.6 % (32.0-36.0); MCV 84 fL (80-95); Platelet Count 392 10^3/uL (130-400); RBC 5.03 10^6/uL (4.36-5.78); RDW 14.2 % (11.8-14.1); RDW-SD 43.1 fL; WBC 6.82 10^3/uL (4.4-10.8)
[2023-12-28 06:40] LABS: Anion Gap 8.9 mmol/L (3-11); BUN 21 mg/dL (7-18); CO2 28.1 mmol/L (21.0-32.0); CREATININE 1.5 mg/dL (0.70-1.30); Calcium 9.1 mg/dL (8.5-10.1); Chloride 103 mmol/L (98-107); Estimated GFR 53.63 (mL/min/1.73m2); Glucose 124 mg/dL (74-106); Potassium 3.8 mmol/L (3.5-5.1); Sodium 140 mmol/L (136-145)
[2023-12-28 07:09] VITALS: BP 161/93; PULSE 65; RESP 18; TEMP 36.5; O2SAT 95
[2023-12-28] MEDS: Esomeprazole 40 MG CAPCR PO (07:49)
[2023-12-28] MEDS: Cyanocobalamin 500 MCG TAB 1000 MCG PO (07:49)
[2023-12-28] MEDS: dilTIAZem 60 MG TAB PO ×2 (07:50→21:30)
[2023-12-28] MEDS: Lisinopril 20 MG TAB 40 MG PO (07:50)
[2023-12-28] MEDS: amLODIPine 2.5 MG TAB PO (07:50)
[2023-12-28] MEDS: DULoxetine 30 MG CAP PO ×2 (07:50→21:13)
[2023-12-28] MEDS: Furosemide 40 MG TAB PO ×2 (07:51→15:45)
[2023-12-28] MEDS: Buprenorphine/Naloxone 4 mg/1 mg FILM 1 EACH SL (07:51)
[2023-12-28] MEDS: Gabapentin 600 MG TAB PO ×3 (07:51→21:13)
[2023-12-28] MEDS: Aspirin 81 MG CHEW CH (07:51)
[2023-12-28] MEDS: CEFEPIME 2 GM in Normal Saline 100 ML IVPB ×2 (07:52→21:12)
[2023-12-28] MEDS: Normal Saline Flush 10 ML SYR IVP (07:53)
[2023-12-28] MEDS: Insulin Aspart 300 UNITS/3 ML PEN SC ×3 (08:07→17:08)
[2023-12-28] MEDS: Tiotropium/Olodaterol 10 PUFF INHALER 2 PUFF IH (08:12)
--- NOTE | 2023-12-28 08:34 | PDOC.CMPRO ---
Date of service: 12/28/23 Time of Service: 08:34 Care Management Progress Note Progress Note Text Progress Note Text: Mio was sitting up in bed when CM met with him. He appeared to be in good spirits and engaged easily with CM. Mio informed CM that PT had come to see him a few minutes earlier and had attempted to stand. He stated that he experienced excruciating pain, worse than when he came in, and was unable to ambulate. He reported that his nurse was checking to see if he could have any pain medication. Mio shared that at home, he takes his pain medication before PT comes to the house to work with him. He plans to do the same here which should help. The cellulitis on Mio's RLE is improving. In general, it is less painful and the erythema is receding. The provider plans to transition him to oral antibiotics with a plan to discharge home soon. Discharge Potential Discharge Needs: PCP F/U Appt Anticipated Barriers to Discharge: None Identified Patient/Family Education Needs: Review discharge instructions, discuss Ask Me Three Transportation: Private vehicle Plan: Anticipate Mio will be discharged back to his home with a resumption of caregiver services. He may benefit from new homehealth services for wound care when discharged. He will follow up with his PCP and plan of care and transport with family. CM will follow and continue to support discharge planning needs. SDOH(Care Management) Screening Will the Patient Participate in the Screening?: Yes Do you worry about having a steady place to live?: yes Problems where you live: other In the past 12 months, have you had to go without electric, gas, oil or water in your home?: no Have you or anyone in your house had to go without enough food to eat?: no Has lack of transportation kept you from medical appointments or from doing things needed for daily living?: no Has anyone in your support network made you feel unsafe for any reason?: no Health Related Social Needs Health related social needs: housing instability, housed, with risk of homelessness(Z59.811)
--- NOTE | 2023-12-28 09:06 | W.PM.PROGNOT ---
Date of Service Date of service: 12/28/23 Time of Service: 09:08 Assessment and Plan Assessment and plan (1) Cellulitis of right lower extremity: Status: Acute Assessment and plan: -Severe cellulitis complicated by type 2 DM, venous insufficiency, foreign body, and recent antibiotic treatment for cellulitis on the other leg in September and October of this year. -h/o MRSA and at risk for pseudomonas with his DM. -started on cefepime and vancomycin in the ED, will continue with plan to transition to PO antibiotics on am 12/28 -blood culture results negative (2) Bradycardia: Status: Acute Assessment and plan: -Unclear etiology for bradycardia, documented down to low 40's but ED stated down to mid 30's -has been on PO long acting dilt which has been held since admission -as of AM 12/25 BP up to 190's systolic and HR in the 80's -BP and HR now stabilized with PO short acting dilt 60mg PO; continue to monitor HR and BP (3) Hypertensive urgency: Status: Acute Assessment and plan: -No clear signs or symptoms of end-organ damage. -He reports poor adherence to prescribed BP regimen. given IV furosemide on admission -continue oral BP meds with the exception of change to dlit as noted above (4) Diabetes mellitus: Status: Chronic Assessment and plan: -Last A1c 6.7 in February on just a GLP-1. -repeat a1c 5.9 -monitor and give SS insulin prn. -Can continue GLP-1 if he brings from home. Qualifiers: Diabetes mellitus type: type 2 Diabetes mellitus assisted insulin use: without assisted use Diabetes mellitus complication status: with neurologic complications Diabetes mellitus complication detail: with other neurological complication Qualified Code(s): E11.49 - Type 2 diabetes mellitus with other diabetic neurological complication (5) Opiate dependence: Status: Chronic Assessment and plan: He states he missed dose on day of admission, and his pupils and BP are c/w this. Will order now. Qualifiers: Substance use status: uncomplicated Qualified Code(s): F11.20 - Opioid dependence, uncomplicated (6) Smoker: Status: Inactive Assessment and plan: He declines NRT for now, encouraged to consider cessation. 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 Stable. Continue ASA. He does not take statin. (8) DVT prophylaxis: Status: Inactive Assessment and plan: LMWH heparin. His is high risk with h/o DVT. Subjective Subjective Interval history since last seen: Patient states that he is continuing to feel much better that the pain in his right leg is improving. He is looking forward to working with physical therapy later today and has no complaints concerns at this time Exam Narrative Exam Narrative: Chronically ill, fatigued appearing gentleman. Older than stated age laying in bed in no acute distress, ANO x 4, heart regular rhythm, lungs clear to auscultation bilaterally, abdomen soft, nontender, nondistended, right lower extremity wrapped in gauze with proximal erythema having now receded under a lot of the bandage, and distal erythema having initially been down to the midfoot now having receded even further above the ankle Objective Last Vital Signs Temp 97.7 F 12/28/23 07:09 Pulse 65 12/28/23 07:09 Resp 18 12/28/23 07:09 BP 161/93 H 12/28/23 07:09 Pulse Ox 95 12/28/23 07:09 Laboratory Results - last 24 hr 12/27/23 12/28/23 22:15 05:59 WBC 6.82 RBC 5.03 Hgb 13.7 Hct 42.0 MCV 84 MCH 27.2 MCHC 32.6 RDW 14.2 H Plt Count 392 MPV 9.0 Sodium 140 Potassium 3.8 Chloride 103 Carbon Dioxide 28.1 Anion Gap 8.9 BUN 21 H Creatinine 1.5 H Est GFR (CKD-EPI 2020) 53.63 Glucose 124 H Calcium 9.1 Random Vancomycin 21.2 Time Spent with Patient Time Spent with Patient: >50 minutes Time was spent: preparing to see the patient(eg.review tests), obtaining and/or reviewing separately otained hiistory, ordering medications,tests, procedures, referring, communicating with other health day care supervisor, indepentently interpreting results, counseling the patient and care coordination
[2023-12-28] MEDS: Enoxaparin 40 MG/0.4 ML SYR SC (09:38)
[2023-12-28 11:32] VITALS: BP 114/78; PULSE 78; RESP 20; TEMP 36.6; O2SAT 96
--- NOTE | 2023-12-28 12:07 | PT.INIE ---
PT Notes Visit Reasons: cellulitis, bradycardia, hypertensive urgency Physical Therapy Initial Evaluation Date: 12/28/2023 Referring Doctor: Dr Stewart PT Orders: PT CONSULT: PT evaluation Precautions: Ambulate with assist, Telemetry , IV LUE Patient Profile/Admitting Diagnosis: Pt is 58 yo male presented to ED presenting with increasing pain and redness of his right lower extremity. He stated he scraped his right leg on something 3-4 days prior to going to ED. He dx of cellulitis. RLE treated with IV antibiotics and wound consultation. Pt now referred to PT for evaluation PMHX: Bradycardia (Acute) Hypertensive urgency (Acute) Cellulitis of right lower extremity (Acute) Sepsis (Acute) Abnormal CT scan, kidney (Acute) Elevated white blood cell count (Acute) Congestive heart failure (CHF) (Chronic) Chronic venous insufficiency (Acute) COVID-19 (Acute) COVID (Acute) COPD (chronic obstructive pulmonary disease) (Chronic) Anxiety (Chronic) Leg wound, left (Acute) Medical non-compliance (Acute) Dysphagia (Acute) Dyspepsia (Acute) Dyspnea (Acute) Discharge planning issues (Acute) DVT (deep venous thrombosis) (Chronic) Pneumonia (Acute) Diabetic neuropathy (Acute) Aragon esophagus (Acute) Traumatic hematoma of right upper arm (Acute) Likely due to trauma sustained in the ambulanceAnemia due to acute blood loss (Acute) Symptomatic anemia (Acute) Acute anemia (Acute) Obstructive sleep apnea (Chronic) Discharge planning issues (Acute) Aortic insufficiency (Acute) s/p valve replacementOpiate dependence (Chronic) managed on suboxone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) (Acute) Diabetes mellitus (Chronic) Hypertension (Chronic) Medical History Cocaine abuse Hypertensive emergency Cerebral septic emboli causing stroke with residual right hemiparesis and expressive aphasiaGI bleed Osteomyelitis of left fibula DVT, lower extremity previously on coumadinHypomagnesemia Endocarditis G tube feedings Per referral form Zcah Sanders 09/18/18 placed by [facility] for endocarditis, no longer using.Displaced bimalleolar fracture of left ankle s/p infection of woundTinea corporis Chronic pain Depression Right rotator cuff tear Aortic valve endocarditis MSSA (methicillin susceptible Staphylococcus aureus) septicemia Hepatitis C GERD (gastroesophageal reflux disease) Surgical History S/P endoscopy H/O aortic valve replacement Pericardial aortic valve at [facility] - 08/21/2018 - Magna Ease 25 mmS/P hardware removal L ankle.S/P percutaneous endoscopic gastrostomy (PEG) tube placement History of ankle surgery S/P spinal surgery Social History/Home Situation: Patient lives with in a mobile home in [place], [place] with 4 steps to enter with a rail on the right side going up. He did say that he now has a ramp that he uses to get in and out of the house. works full-time and along with daughter Xochitl provides needed assistance with patient's ADL performance at home. Mio states that he has home home health nurse who comes in regularly to manage his wound. Equipment Owned/DME: Hospital bed, FWW, bedside commode, shower chair, hand-held shower, grab bars, regular wheelchair Subjective: Initially patient reported his pain is so much better than it was and he is looking forward to getting up and walking. Objective: General Observation: Pt resting in bed watching TV, motivated to get out of bed since his pain is better. Telemetry in place and IV access to LUE, RLE elevated on pillow with dressing in place to right lowerleg. Mental Status: A+Ox3 Pain: right LE 5/10 at rest, 10/10 with dependent position of RLE, post session 6/10 ROM: [] Right Upper Extremity: WNL Left Upper Extremity: WNL Right Lower Extremity: WNL Left Lower Extremity: WNL Strength: [] Right Upper Extremity: Shoulder 5/5. Elbow flexors 4/5. Elbow extensors 4/5. Blow Molding Machine Tender strong. Left Upper Extremity: Shoulder flexors 5/5. Shoulder abductors 5/5. Elbow flexors 5/5. Elbow extensors 5/5. Blow Molding Machine Tender weak but functional. Right Lower Extremity: Hip flexors 4/5. Hip abductors 4/5. Knee flexors >3/5. Knee extensors >3/5. Ankle dorsiflexors 5/5. Ankle plantarflexors 5/5. Left Lower Extremity:Hip flexors 5/5. Hip abductors 5/5. Knee flexors 5/5. Knee extensors 5/5. Ankle dorsiflexors 3-/5. Ankle plantarflexors 5/5 Sensation: absent to light touch B feet, diminished to dull pressure B feet, intact to pain and pressure above ankle. Bed Mobility/Transfers: Supine to sit independent Sit to stand unable to assess/ tolerate stand d/t pain Stand to sit Unable to assess d/t pain Bed to chair pivot transfer bed to chair toward left keeping RLE elevated with min A to keep RLE elevated Gait: unable to assess d/t pain. Balance: Static Sitting: Normal Dynamic Sitting: Fair+ (limited by decreased tolerance to dependent position of RLE) Static Standing: unable to assess Dynamic Standing: unable to assess Special Tests: Mobility Limitations Standardized Measure [facility] AM-PAC 6 clicks Basic Mobility Inpatient Short Form: Raw Score: 17 CMS Score: 50.57% Informed Consent/Education: Patient instructed in purpose of PT consult. Assessment: Pt is 58 yo male presenting with venous insufficiency wound and cellulits of right lower leg. He currently is experiencing severe pain with dependent position of RLE limiting his ability to tolerate standing tasks including ambulation. Patient presents with clinical signs and symptoms consistent with current/admitting diagnoses that have resulted to mobility limitations, gait instability, generalized weakness, and impairment of motor control as demonstrated by the following impairment level findings: 1. Decreased strength to R LE major muscle groups 2. Impaired standing balance 3. Increased pain RLE Impairments are contributing to the following functional limitations: 1. Inability to safely ambulate without assistive device 2. Increase completion time for mobility ADL performance 3. Increased fall risk 4. decline in transfer skills Patient is assessed as a moderate complexity based on the following: History: 58-year-old male with impairment level findings, functional limitations, and past medical history as indicated above Examination: Demonstrable impairment in strength, balance, and mobility level with underlying impairments and functional limitations as documented above Presentation: evolving Decision Making: moderate Goals: Plan of Care/Treatment Plan:Pt would benefit from skilled PT 1-2 times per day for global strengthening, transfers, ambulation, pain management and balance facilitation DISCHARGE RECOMMENDATIONS: Home with PT TREATMENT CODE/TIME: 02657 x20 mins for 1 unit; 54734 x 13 mins for 1 unit/ [id number], [id number] Thank you for the opportunity to participate in the care of this patient. Please sign an return this page within 30 days if you agree with the above POC. Thank you! Physician Signature Date [facility]
--- NOTE | 2023-12-28 14:31 | PT.INTREAT ---
PT Notes Visit Reasons: cellulitis, bradycardia, hypertensive urgency Inpatient Physical Therapy Treatment Note [facility] Date: 12/28/2023 PRECAUTIONS:telemetry, IV LUE SUBJECTIVE: Pt reporting he was glad he got out of bed today and he hopes the pain is not so bad since he got Gabapentin prior to going back to bed. OBJECTIVE: Pt received gabapentin prior to session. Pt seated in chair with BLE elevated? PAIN: 5/10 pre with medication, 10+/10 with dependent position of RLE. VITALS: ?Monitored via telemetry Therapeutic Activities ([id number]): Direct one-on-one instruction in dynamic activities to improve functional performance. ?? -seated leaning forward to place LEs onto floor from reclined elevated position. x 3 attempts. -attempted sit to stand unable to assume upright posture d/t pain RLE -pivot transfer toward left with mod A to keep RLE elevate pt using bed rail aide in pivot. Bed mobility independent scooting and repositioning. ASSESSMENT:? Pt tolerated OOB to chair for 2 hours. Pt requires cues to attend to task and reduce impulsivity. Pt again developed pain with dependent position of RLE. Pt attempted to place foot below hip height in seated position x 3 trials this session. Pt transfer chair to bed he required min A to help hold RLE up as he pivoted into the bed toward the left. Pt attempted WB through foot x 1 trial however pain intense per patient and quickly pulled foot up off floor to above hip height in seated position. Once in supine pt able to scoot with RLE in NWB position with no pain however when attempted to use his foot for WB assist he reported pain increased. PLAN: Pt would benefit from skilled PT 1-2 times per day for global strengthening, transfers, ambulation, pain management and balance facilitation TREATMENT CODE/TIME: 33099 x 16 mins for 1 unit/ [id number] DISCHARGE RECOMMENDATION: Home with PT
[2023-12-28 15:35] VITALS: BP 135/76; PULSE 82; RESP 18; TEMP 36.4; O2SAT 96
[2023-12-28 19:00] LABS: Vancomycin, Random 18.8 ug/mL
[2023-12-28 19:08] VITALS: BP 100/76; PULSE 100; RESP 16; TEMP 36.8; O2SAT 98
[2023-12-28 21:00] LABS: Anion Gap 10.9 mmol/L (3-11); BUN 32 mg/dL (7-18); CO2 26.1 mmol/L (21.0-32.0); CREATININE 1.8 mg/dL (0.70-1.30); Calcium 8.7 mg/dL (8.5-10.1); Chloride 101 mmol/L (98-107); Estimated GFR 43.09 (mL/min/1.73m2); Glucose 181 mg/dL (74-106); Magnesium 1.9 mg/dL (1.8-2.4); Sodium 138 mmol/L (136-145)
[2023-12-28] MEDS: Acetaminophen 500 MG TAB 1000 MG PO (21:13)
[2023-12-28 21:30] VITALS: BP 119/78; PULSE 95
[2023-12-28] MEDS: oxyCODONE 5 MG TAB PO (23:48)
[2023-12-29 02:26] VITALS: BP 121/81; PULSE 70; RESP 16; TEMP 36.5; O2SAT 96
[2023-12-29 07:40] VITALS: BP 126/79; PULSE 82; RESP 16; TEMP 36.7; O2SAT 97
[2023-12-29] MEDS: Tiotropium/Olodaterol 10 PUFF INHALER 2 PUFF IH (07:53)
[2023-12-29] MEDS: CEFEPIME 2 GM in Normal Saline 100 ML IVPB (08:27)
[2023-12-29] MEDS: dilTIAZem 60 MG TAB PO (08:28)
[2023-12-29] MEDS: Buprenorphine/Naloxone 4 mg/1 mg FILM 1 EACH SL (08:28)
[2023-12-29] MEDS: Lisinopril 20 MG TAB 40 MG PO (08:29)
[2023-12-29] MEDS: Gabapentin 600 MG TAB PO ×2 (08:29→13:51)
[2023-12-29] MEDS: Esomeprazole 40 MG CAPCR PO (08:29)
[2023-12-29] MEDS: Acetaminophen 500 MG TAB 1000 MG PO ×2 (08:30→13:51)
[2023-12-29] MEDS: DULoxetine 30 MG CAP PO (08:30)
[2023-12-29] MEDS: Cyanocobalamin 500 MCG TAB 1000 MCG PO (08:30)
[2023-12-29] MEDS: amLODIPine 2.5 MG TAB PO (08:31)
[2023-12-29] MEDS: oxyCODONE 5 MG TAB PO ×2 (08:31→13:51)
[2023-12-29] MEDS: Aspirin 81 MG CHEW CH (08:31)
[2023-12-29] MEDS: Normal Saline Flush 10 ML SYR IVP (08:32)
[2023-12-29] MEDS: Polyethylene Glycol 3350 17 GM PACKET PO (08:33)
--- NOTE | 2023-12-29 08:41 | PDOC.CMPRO ---
Date of service: 12/29/23 Time of Service: 08:41 Care Management Progress Note Discharge Potential Discharge Needs: PCP F/U Appt Anticipated Barriers to Discharge: None Identified Patient/Family Education Needs: Review discharge instructions, discuss Ask Me Three Transportation: Private vehicle Plan: Anticipate Mio will be discharged back to his home with a resumption of caregiver services. He may benefit from new homehealth services for wound care when discharged. He will follow up with his PCP and plan of care and transport with family. CM will follow and continue to support discharge planning needs. SDOH(Care Management) Screening Will the Patient Participate in the Screening?: Yes Do you worry about having a steady place to live?: yes Problems where you live: other In the past 12 months, have you had to go without electric, gas, oil or water in your home?: no Have you or anyone in your house had to go without enough food to eat?: no Has lack of transportation kept you from medical appointments or from doing things needed for daily living?: no Has anyone in your support network made you feel unsafe for any reason?: no Health Related Social Needs Health related social needs: housing instability, housed, with risk of homelessness(Z59.811)
--- NOTE | 2023-12-29 09:47 | PT.INTREAT ---
PT Notes Visit Reasons: cellulitis, bradycardia, hypertensive urgency Inpatient Physical Therapy Treatment Note [facility] Date: 12/29/2023 PRECAUTIONS:telemetry, IV LUE SUBJECTIVE: Pt reporting he feels much better today . He reports he was able to stand and walk to his chair this morning. He stated the pain got worse but as soon as he sat and elevated his leg the pain went away. OBJECTIVE: Pt presented seated in chair with BLE elevated on 2 pillows. ? PAIN: pre treatment 1-04/01 with walking 06/29 post amb when leg elevated 04/01 VITALS: ?Monitored via telemetry Therapeutic Activities ([id number]): Direct one-on-one instruction in dynamic activities to improve functional performance. ?? Instruction in safe hand placement and technique for transfers. bed mobility Independent Transfers: sit to stand x 5 trials at FWW with SBA and cues for hands 2/5 trials stand to sit x 5 trials SBA chair to bed with FWW SBA with cues for safe approach to surface ensure LE and FWW aligned prior to sit chair to chair x 4 trials with FWW cues for safe approach with FWW ambulation 25 feet x2 level surfaces with turns with FWW SBA pt demonstrates reduced WB through RLE with increase WB through BUE to off weight RLE. ASSESSMENT:? Pt able to tolerate increase WB and dependent position of RLE this session. He is motivated to return to home. He was not impulsive today likely related to reduced pain . Plan to progress with distance of ambulation as pt tolerates dependent position PLAN: Pt would benefit from skilled PT 1-2 times per day for global strengthening, transfers, ambulation, pain management and balance facilitation TREATMENT CODE/TIME: 67302 x 16 mins for 1 unit/ [id number] DISCHARGE RECOMMENDATION: Home with PT
[2023-12-29] MEDS: Enoxaparin 40 MG/0.4 ML SYR SC (10:46)
--- NOTE | 2023-12-29 12:25 | DSE_ITS ---
Date of service: 12/29/23 Time of Service: 12:25 DS: Diagnosis Discharge Diagnosis (1) Cellulitis of right lower extremity: Status: Acute (2) Bradycardia: Status: Acute (3) Hypertensive urgency: Status: Acute (4) Diabetes mellitus: Status: Chronic (5) Opiate dependence: Status: Chronic (6) Smoker: Status: Inactive (7) 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): Status: Acute (8) DVT prophylaxis: Status: Inactive Discharge Plan Disposition Patient Disposition: Home W/Home Health Services Condition: Good Discharge Details Reason For Visit: cellulitis, bradycardia, hypertensive urgency Admit Date/Time: 12/25/23 21:37 Admit Provider: John Singh Attending Provider: John Singh Primary Care Provider: Evon Howard [facility] Course Hospital Course: Patient initially presented to the hospital with concerns for infection in his right lower extremity which was determined to be a cellulitis. There is also concern of a foreign body though this was determined to be a BB that had been lodged in his leg for some years and was not contributing to current illness as CT did not show any signs of fluid collection, abscess. he was treated with vancomycin and cefepime for his lower extremity cellulitis which was severe with erythema extending down to the midfoot and up almost to just below the knee, and during hospitalization significantly improved with recession of erythema now only to the point of area of excoriation and mild weeping as patient also has chronic venous stasis and skin changes as a result. Additionally, patient initially was also found to be bradycardic but this significantly improved after discontinuing his long-acting diltiazem and lowering and splitting the dose to twice daily. Given that the patient has had significant improvement of his karlo lulitis, resolution of his bradycardia, it was determined that he was stable for discharge home with home health services for ongoing wound care and PO bactrim for an additional 10 days. Home Meds and New Rx's Prescriptions: New diltiazem HCl [Cardizem] 60 mg Tablet 60 mg PO BID Qty: 90 0RF sulfamethoxazole-trimethoprim [Bactrim DS] 800-160 mg tablet 1 tab PO BID 10 Days Qty: 20 0RF Continued esomeprazole magnesium [Nexium] 40 mg capsule,delayed release(DR/EC) 40 mg PO DAILY Trulicity 4.5 mg/0.5 mL pen injector 4.5 mg subcut QWEEK Patient Comments: takes on monday albuterol sulfate 90 mcg/actuation HFA aerosol inhaler 2 inh inhalation Q6H PRN aspirin 81 mg Tablet 81 mg PO DAILY duloxetine 30 mg Capsule,Delayed Release(Dr/Ec) 30 mg PO BID acetaminophen [Tylenol] 325 mg tablet 1,000 mg PO Q6H PRN Anoro Ellipta 62.5-25 mcg/actuation blister with device 1 ea INHALATION DAILY Patient Comments: INHALE ONE PUFF BY MOUTH EVERY DAY buprenorphine-naloxone [Suboxone] 4-1 mg film 1 film sublingual DAILY Patient Comments: PLACE ONE FILM UNDER THE TONGUE EVERY DAY cyanocobalamin (vitamin B-12) [Vitamin B-12] 1,000 mcg tablet 1,000 mcg PO DAILY lisinopril 40 mg tablet 40 mg PO DAILY Patient Comments: TAKE ONE TABLET BY MOUTH EVERY DAY Qvar RediHaler 80 mcg/actuation HFA aerosol breath activated 1 inh INHALATION BID PRN Patient Comments: INHALE ONE PUFF BY MOUTH TWICE A DAY NEEDED amlodipine 2.5 mg tablet 2.5 mg PO DAILY Patient Comments: TAKE ONE TABLET BY MOUTH EVERY DAY gabapentin 600 mg tablet 600 mg PO TID Patient Comments: TAKE ONE TABLET BY MOUTH THREE TIMES A DAY Changed furosemide [Lasix] 40 mg Tablet 40 mg PO DAILY Qty: 0 0RF Discontinued diltiazem HCl 120 mg capsule,extended release 24 hr 120 mg PO DAILY Patient Comments: TAKE ONE CAPSULE BY MOUTH EVERY DAY FOR HIGH BLOOD PRESSURE AND HIGH HEART RATE Discharge Instructions Activity:: Activity as Tolerated Equipment/Supplies:: Blood Glucose Monitor Diet:: As Tolerated Discharge Orders Discharge Orders: Discharge Order (Routine); Ordered 12/29/23 Ordered By: Felix Stewart DS: Summary Time Spent with Patient providing and/or coordinating discharge services: Greater than 30 minutes Status at Discharge Functional status at discharge: independent ambulation Overall status at discharge: patient is back to baseline Mental Status: mental status grossly normal Speech and Movement: speech and movement normal Mood: congruent mood Affect: normal affect Quality:SDOH Health Related Social Needs: Health related social needs housing instability, house d, with risk of homelessness(Z59.811) Exam Narrative Exam Narrative: Chronically ill, fatigued appearing gentleman. Older than stated age laying in bed in no acute distress, ANO x 4, heart regular rhythm, lungs clear to auscultation bilaterally, abdomen soft, nontender, nondistended, right lower extremity wrapped in gauze with proximal erythema having now receded under a lot of the bandage, and distal erythema having initially been down to the midfoot now having almost completely resolved, though patient does also have bilateral LE skin changes secondary to chronic venous insufficiency Psych Mental Status: mental status grossly normal Speech and Movement: speech and movement normal Mood: congruent mood Affect: normal affect DS: Data Vitals/I&O Vitals and I&O: Vital Signs Temperature 98.1 F 12/29/23 07:40 Temperature Source Tympanic 12/29/23 02:26 Pulse 82 12/29/23 07:40 Pulse 64 12/26/23 23:01 Respiratory Rate 16 12/29/23 07:40 Respiratory Effort Non-Labored 12/25/23 23:14 Blood Pressure 126/79 12/29/23 07:40 Blood Pressure Mean 87 12/26/23 23:01 Blood Pressure Position Supine 12/25/23 23:14 Pulse Oximetry 97 12/29/23 07:40 Oxygen Delivery Method Room Air 12/29/23 07:40 Oxygen Flow Rate 0 12/29/23 07:40 Pain Level 5 12/29/23 08:35 Comment RN notified. 12/28/23 07:09 Intake & Output 12/28/23 12/29/23 12/29/23 17:59 05:59 17:59 Intake Total 100 / 100 650 / 750 100 / 100 Output Total 1350 / 1350 1000 / 2350 675 / 675 Balance -1250 / -1250 -350 / -1600 -575 / -575 Weight 178 lb Intake: IV 100 / 100 300 / 400 100 / 100 Oral 350 / 350 Output: Urine 1350 / 1350 1000 / 2350 675 / 675 Other: Urine Color Pale Yellow Straw Urine Appearance Clear Clear Clear Urine Odor None None None Stool Size Large Data Completed and Pending Labs on day of discharge: Labs from last 24 hours 12/28/23 12/28/23 20:42 18:08 Sodium 138 Potassium 4.0 Chloride 101 Carbon Dioxide 26.1 Anion Gap 10.9 BUN 32 H Creatinine 1.8 H Est GFR (CKD-EPI 2020) 43.09 Glucose 181 H Calcium 8.7 Magnesium 1.9 Random Vancomycin 18.8 Preliminary micro results at discharge 12/25/23 18:30 Blood Culture - Preliminary Blood NO GROWTH 72 HOURS 12/25/23 18:00 Blood Culture - Preliminary Blood NO GROWTH 72 HOURS [facility] All Active Problems (Updated 12/25/23 @ 22:25 by John Singh) Bradycardia (Acute) Cellulitis of right lower extremity (Acute) Sepsis (Acute) Abnormal CT scan, kidney (Acute) Elevated white blood cell count (Acute) Congestive heart failure (CHF) (Chronic) Chronic venous insufficiency (Acute) COVID-19 (Acute) COVID (Acute) Obstructive sleep apnea (Chronic) COPD (chronic obstructive pulmonary disease) (Chronic) Anxiety (Chronic) Leg wound, left (Acute) Medical non-compliance (Acute) Hypertensive urgency (Acute) Dysphagia (Acute) Dyspnea (Acute) Dyspepsia (Acute) Discharge planning issues (Acute) DVT (deep venous thrombosis) (Chronic) Pneumonia (Acute) Aragon esophagus (Acute) Diabetic neuropathy (Acute) Traumatic hematoma of right upper arm (Acute) Likely due to trauma sustained in the ambulance Anemia due to acute blood loss (Acute) Symptomatic anemia (Acute) 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) (Acute) Opiate dependence (Chronic) managed on suboxone Hypertension (Chronic) Discharge planning issues (Acute) Aortic insufficiency (Acute) s/p valve replacement Diabetes mellitus (Chronic) Acute anemia (Acute) Medical History Cocaine abuse Hypertensive emergency 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 Displaced bimalleolar fracture of left ankle s/p infection of wound Tinea corporis Chronic pain Depression Right rotator cuff tear Aortic valve endocarditis MSSA (methicillin susceptible Staphylococcus aureus) septicemia Hepatitis C GERD (gastroesophageal reflux disease) Surgical History S/P endoscopy H/O aortic valve replacement Pericardial aortic valve at [facility] - 08/21/2018 - Magna Ease 25 mm S/P hardware removal L ankle. S/P percutaneous endoscopic gastrostomy (PEG) tube placement History of ankle surgery S/P spinal surgery Family History Father No problems noted. Mother COPD (chronic obstructive pulmonary disease) Hypertension Diabetes Heart disease Sister Stroke Social History Smoking/Tobacco Use Status: Current every day Tobacco Type: cigarettes Smoking risk assessment performed?: Yes Alcohol Intake: never Drug use: Daily Substance use type: marijuana and crack/cocaine Details: cocaine binge the last 2 days 09/29/23, on suboxone, last dose yesterday Caregiver/Support person: Yes Household members: friend(s) Housing: house Number of Children: 0 number of grandchildren: 1 current occupation: Disabled Pets and animals: Yes Pets and animals: cat(s) Current gender identity: male What type of physical activity do you participate in: none Do you feel safe at home: Yes Do you feel safe in your relationship?: Yes Additional Social history: Lives with ex- Vanessa, who is his caregiver. Lives in private home. Time Spent with Patient Time Spent with Patient: <45 minutes Time was spent: preparing to see the patient(eg.review tests), obtaining and/or reviewing separately otained hiistory, ordering medications,tests, procedures, referring, communicating with other health field care advocate, indepentently interpreting results, counseling the patient and care coordination
--- NOTE | 2023-12-29 12:27 | PDOC.HHF2F ---
Home Health Referral Home Health Orders Clinical synopsis of why skilled professionals are needed: RLE cellulitis and wound Registered Nurse: Check all that apply Instruct on new or changed medication(s)/assess compliance: Ordered Assess wound for signs and symptoms of infection, instruct on wound care and/or provide skilled wound care consisting of: RLE cellulitis and wound dressing changes as per wound care notes Encounter Date and Reason: I certify that a FTF encounter for this patient was performed on December 29, 2023 and that such encounter was related to the primary reason the patient requires home health services. The encounter was conducted in the following manner: By me as the certifying physician, CONFIGURATION MANAGEMENT SPECIALIST, PA or By an inpatient physician, CONFIGURATION MANAGEMENT SPECIALIST or PA during an inpatient stay who communicated findings to me, Certification And Authentication I certify that I composed the above information based on my clinical judgment relating to this patient's medical condition and, if applicable, clinical findings communicated to me by the NPP or inpatient physician who performed the FTF encounter. Name of Provider that will be monitoring home health services: Evon Howard
--- NOTE | 2023-12-29 17:15 | CMDISCH_ITS ---
Date of service: 12/29/23 Time of Service: 17:15 LACE Index Scoring Tool Questions: Length of Stay (in days): 4 - 6 Was the patient admitted via the E.D.?: Yes Comorbidities: Cerebrovascular Disease, Diabetes w/o Complication, Congestive Heart Failure, Chronic Pulmonary Disease and Liver or Renal Disease E.D. Visits: 6 Answers: Total Score: 16 Risk of Readmission: High Risk Care Management Discharge Plan Reason for Hospitalization: cellulitis Discharge Plan: Mio will be discharged back to his home with a resumption of caregiver services. He will have new home health services for wound care through [facility]. He will follow up with his PCP and plan of care and transport with family. Patient/Family Education Needs: Review discharge instructions, limitations, follow up plan and discuss Ask Me Three Services Needed at Discharge: Home Health Care Services (nursing for wound care) SDOH Health Related Social Needs: Health related social needs housing instability, house d, with risk of homelessness(Z59.811) Health related social needs: housing instability, housed, with risk of homelessness(Z59.811)
== END 2023-12-29 13:58 | disposition home health service (06) | DRG 603 ==
LOC: ER 20:35 → ICU 23:11 → MS 12-27 00:07
PROVIDERS: Family Medicine; Admitting Provider Family Medicine; Emergency Provider Physician Assistant; PCP Family Medicine; Visit Provider Family Medicine
DX: L03.115 Cellulitis of right lower limb (principal); F11.20 Opioid dependence, uncomplicated; I69.351 Hemiplegia and hemiparesis following cerebral infarction affecting right dominant side; F14.10 Cocaine abuse, uncomplicated; I16.0 Hypertensive urgency; F17.210 Nicotine dependence, cigarettes, uncomplicated; I50.9 Heart failure, unspecified; I11.0 Hypertensive heart disease with heart failure; G47.33 Obstructive sleep apnea (adult) (pediatric); J44.9 Chronic obstructive pulmonary disease, unspecified; F41.9 Anxiety disorder, unspecified; R13.10 Dysphagia, unspecified; E11.40 Type 2 diabetes mellitus with diabetic neuropathy, unspecified; I35.1 Nonrheumatic aortic (valve) insufficiency; K22.70 Barrett's esophagus without dysplasia; F12.90 Cannabis use, unspecified, uncomplicated; Z86.718 Personal history of other venous thrombosis and embolism; S81.801A Unspecified open wound, right lower leg, initial encounter; W22.8XXA Striking against or struck by other objects, initial encounter; R00.1 Bradycardia, unspecified; M79.5 Residual foreign body in soft tissue
CPT/HCPCS: 00123; 36415; 36416; 80048; 80053; 80307; 80348; 82962; 84145; 85027; 87040; 93005; 94640; 96361; 96365; 96366; 96367; 97162; 97530; 99285; J1650; 71045; 73590; 73701; 80202; 81003; 81015; 83036; 83605; 83735; 83880; 84443; 84484; 85025; 93010; 94664; 99223; 99233; 99239; J0692; J1815; J1941; J3370; J3372; J3490

== ENCOUNTER 2024-02-06 22:32 | Observation (INO) | payer MEDICAID, SELFPAY ==
[2024-02-06] VITALS (17 sets, daily range): BP systolic 194–246; BP diastolic 68–98; PULSE 27–60; RESP 9–28; O2SAT 94–100
--- NOTE | 2024-02-06 22:45 | RT.EKG_ITS ---
APPROVED REPORT Exam: Resting ECG Reason for Exam: maya Patient Location: E HR:34 bpm ECG Measurements Heart Rate 34 AXIS MD [id number] P [id number] QRSd 138 QRS 65 QT 587 T 88 QTc 439 Conclusion sinus bradycardia RBBB limited interp 2/t artifcant (repeat requested); within limits to ST segement or T wave abnormalitite s to suggest occlusive SD
--- NOTE | 2024-02-06 22:45 | RT.EKG_ITS ---
APPROVED REPORT Exam: Resting ECG Reason for Exam: maya Patient Location: E HR:35 bpm ECG Measurements Heart Rate 35 AXIS SD 177 P 4 QRSd 138 QRS 68 QT 564 T 88 QTc 428 Conclusion Sinus bradycardia...rate< 60 Right bundle branch block...QRSd>120, terminal axis(90,270) appropriate intervals no ST segment or T wave abnormalities to suggest occlusive MO
--- NOTE | 2024-02-06 23:02 | ED.GENADUL_ITS ---
Discharge Plan Disposition Patient Disposition: Admit to [facility] Condition: Serious Discharge Details Clinical Impression: Bradycardia, Hypertension, Cellulitis Admit Date/Time: 02/07/24 02:06 Admit Provider: Buzz Marcum Attending Provider: Buzz Marcum Primary Care Provider: Evon Howard ED Provider: Xochitl Lopez General Mode of arrival: EMS . Date/Time Provider Initiated Documentation: 02/06/24 22:51 . Limitations to Documentation: no limitations . Information obtained by: patient, EMS and old records reviewed . HPI Narrative: 58you M with hx LE cellulitis, HTN, CHF, COPD, T2DM, CVA with right hemiparesis, presenting for worsening leg pain in the past 2-3 days. Thinks they are redder than usual, especially the right. Having difficulty walking. Feels generally weak overall. Nausea, no vomiting. No fevers, chills, rash, abdominal pain, dysuria, hematuria, chest pain, shortness of breath, new numbness/tingling, lightheadedness, syncope, or other concerns. Related Data Home Medications ?Medication ?Instructions ?Recorded ?Confirmed esomeprazole magnesium 40 mg 40 mg PO DAILY 05/05/20 12/25/23 capsule,delayed release (Nexium) aspirin 81 mg tablet 81 mg PO DAILY 08/03/20 12/25/23 duloxetine 30 mg capsule,delayed 30 mg PO BID 08/03/20 12/25/23 release acetaminophen 325 mg tablet 1,000 mg PO Q6H PRN 09/27/20 12/25/23 (Tylenol) umeclidinium 62.5 mcg-vilanterol 1 ea inhalation DAILY 09/27/20 12/25/23 25 mcg/actuation powdr for inhalation (Anoro Ellipta) buprenorphine 4 mg-naloxone 1 mg 1 film sublingual DAILY 09/28/20 12/25/23 sublingual film (Suboxone) albuterol sulfate 90 mcg/actuation 2 inh inhalation Q6H PRN 04/12/22 12/25/23 aerosol inhaler dulaglutide 4.5 mg/0.5 mL 4.5 mg subcut QWEEK 04/12/22 12/26/23 subcutaneous pen injector (Trulicity) cyanocobalamin (vitamin B-12) 1,000 mcg PO DAILY 03/06/23 12/25/23 1,000 mcg tablet (Vitamin B-12) lisinopril 40 mg tablet 40 mg PO DAILY 06/14/23 12/25/23 amlodipine 2.5 mg tablet 2.5 mg PO DAILY 09/30/23 12/25/23 gabapentin 600 mg tablet 600 mg PO TID 09/30/23 12/25/23 beclomethasone dipropionate 80 1 inh inhalation BID PRN 12/27/23 12/27/23 mcg/actuation HFA breath activated aerosol (Qvar RediHaler) diltiazem HCl 60 mg tablet 60 mg PO BID #90 tabs 12/29/23 (Cardizem) furosemide 40 mg tablet (Lasix) 40 mg PO DAILY #0 tabs 12/29/23 12/25/23 Previous Rx's ?Medication ?Instructions ?Recorded diltiazem HCl 60 mg tablet 60 mg PO BID #90 tabs 12/29/23 (Cardizem) furosemide 40 mg tablet (Lasix) 40 mg PO DAILY #0 tabs 12/29/23 Allergies Allergy/AdvReac Type Severity Reaction Status Date / Time Penicillins AdvReac Severe Vomiting Verified 12/25/23 17:47 hydrocodone AdvReac Intermediate vomiting Verified 12/25/23 17:47 General Stated Complaint: GenMedical LILLIAN: 3 Review of Systems Narrative: see HPI Exam Narrative Exam Narrative: General: Alert, well appearing, well nourished, in no acute distress. Head: Normocephalic, atraumatic Neck: Trachea midline, ?Neck supple. ENT: ?MMM.? Cardiac: ?Bradycardiac, regular Resp: No respiratory distress. CTAB. Abd: ?Soft, non-distended, nontender : ?No suprapubic tenderness. Extremities: ?No deformities.? Symmetric pitting edema BLE. Venous stasis c hanges BLE. Right bruno with warmth, erythema, and tenderness. No crepitus or skin breakdown. Delayed capillary refill at toes 5-6 seconds, faintly palpable DP pulses, confirmed with doppler. Neurologic: GCS 14 (E3 V5 M6).? PERRL.? EOMI.? Fluent speech, no dysarthria. Motor- 4/5 strength RUE & RLE, 4+/5 LUE & LLE. Sensation- ?Intact to light touch and symmetric multiple dermatomes including upper and lower extremities Coordination- No dysmetria on finger to nose CRANIAL NERVES: II: Pupils equal and reactive, III, IV, : EOM intact, no gaze preference or deviation, no nystagmus. V: normal sensation in V1, V2, and V3 segments bilaterally VII: no asymmetry, no nasolabial fold flattening VIII: normal hearing to speech IX, X: normal palatal elevation, no uvular deviation XI: 5/5 head turn and 5/5 shoulder shrug bilaterally XII: midline tongue protrusion Course Vital Signs Vital signs: Vital Signs Pulse 60 02/06/24 22:22 Respiratory Rate 18 02/06/24 22:22 Blood Pressure 194/89 H 02/06/24 22:22 Pulse Oximetry 98 02/06/24 22:22 Pulse 60 02/06/24 22:22 Respiratory Rate 18 02/06/24 22:27 Respiratory Effort Normal 02/06/24 22:27 Respiratory Depth Normal 02/06/24 22:27 Respiratory Pattern Normal 02/06/24 22:27 Blood Pressure 194/89 H 02/06/24 22:22 Blood Pressure Position Sitting 02/06/24 22:22 Pulse Oximetry 98 02/06/24 22:22 Oxygen Delivery Method Room Air 02/06/24 22:22 Oxygen Flow Rate 0 02/06/24 22:22 Medical Decision Making 58you M with hx LE cellulitis, HTN, CHF, COPD, T2DM, CVA with right hemiparesis, presenting for worsening leg pain in the past 2-3 days as well as generalized weakness. Hypertesnive on arrival, vitals signs initially otherwise reassuring. Shortly after arrival noted to maya down to high 20's low 30's with regularity. Maintains BP with this and is asymptomatic. On my exam he is sleepy but easily rousable to voice, non-toxic appearing, does have venous stasis lambert ges to BLE. RLE with more pronounced erythema and warmth, TTP. With no symptoms as well as marked hypertension, would not treat bradycardia at this time; atropine was brought to the bedside and was placed on pads as a precaution. EKG SB, RBBB, no ST segment or T wave abnormalities to suggest occlusive RI; aside from rate no significant changes compared to prior. No recent head trauma or falls, no new neurologic deficits, no headache or vomiting; unlikely elevated ICP/[place]'s reflex; would not get CT at this time. Medical records reviewed and similar presentation in early December with c ellulitis and bradycardia with no etiology of bradycardia identified. Labs reviewed as below, CBC with no leukocytosis or anemia, CMP with no actionable abnormalities and Cr at baseline, bicarb normal, no hyperglycemia (overal not suggestive of Ca channel betty OD), trop negative, BNP mildly elevated (not suggestive of worsening HF), normal TSH. Reassuring lactate and normal ESR, mildly elevated CRP. HR remains periodically as low as 27, sometimes up to 60's, but overall ranging 30's-low 40's. He remains asymptomatic with his, BP is also labile SBP 261-160. Given his vital signs abnormalities and lability I do not feel he is appropriate for discharge home. Discussed with [facility] hospitalist Dr. Marcum who graciously accepts patient for admission to the medicine service for further workup and management. Requests VBG as well as bridging orders be placed including code status, admit order, floor/tele order, which was done. Transferred to the floor. Medical Records Medical records reviewed: Yes I reviewed the patient's medical records. Medical records narrative: H&P and discharge summary hospital admission in Dec of this year Lab Data Lab results reviewed: Yes I reviewed the patient's lab results. Labs: Laboratory Tests Range/Units 02/06/24 23:02 WBC (4.4-10.8) 10^3/uL 7.06 RBC (4.36-5.78) 10^6/uL 5.65 Hgb (13.5-17.5) g/dL 15.2 Hct (40.0-50.0) % 48.5 MCV (80-95) fL 86 MCH (27.0-33.0) pg 26.9 L MCHC (32.0-36.0) % 31.3 L RDW (11.8-14.1) % 15.2 H Plt Count (130-400) 10^3/uL 393 MPV (8.0-11.0) fL 9.4 Immature Gran % % 0.3 Neutrophils % % 78.1 Lymphocytes % % 14.7 Monocytes % % 5.8 Eosinophils % % 0.3 Basophils % % 0.8 Nucleated RBC % (0.0-0.3) % 0.0 Absolute Neutrophils (1.2-6.7) 10^3/uL 5.51 Absolute Lymphocytes (1.2-3.4) 10^3/uL 1.04 L Absolute Monocytes (0.1-0.8) 10^3/uL 0.41 Absolute Eosinophils (0.0-0.7) 10^3/uL 0.02 Absolute Basophils (0.0-0.2) 10^3/uL 0.06 ESR (0-20) mm/hr 21 H VBG Lactate (0.6-1.4) mmol/L 1.6 H Sodium (136-145) mmol/L 141 Potassium (3.5-5.1) mmol/L 4.1 Chloride (98-107) mmol/L 101 Carbon Dioxide (21.0-32.0) mmol/L 24.6 Anion Gap (3-11) mmol/L 15.4 H BUN (7-18) mg/dL 20 H Creatinine (0.70-1.30) mg/dL 1.4 H Est GFR (CKD-EPI 2020) (mL/min/1.73m2) 58.26 Glucose (74-106) mg/dL 124 H Calcium (8.5-10.1) mg/dL 9.4 Magnesium (1.8-2.4) mg/dL 2.2 Total Bilirubin (0.2-1.0) mg/dL 0.65 AST (15-37) U/L 15 ALT (16-63) U/L 12 L Alkaline Phosphatase (46-116) U/L 98 Troponin I (<or=76) ng/L 15 C-Reactive Protein (<or=0.5) mg/dL 1.27 H NT-Pro-B Natriuret Pep (<300) pg/mL 409 H Total Protein (6.4-8.2) g/dL 8.9 H Albumin (3.4-5.0) g/dL 4.0 TSH (0.36-3.74) uIU/mL 0.42 Quality:SDOH Health Related Social Needs: Health related social needs housing instability, house d, with risk of homelessness(Z59.811) PFSH All Active Problems (Updated 02/07/24 @ 02:38 by Xochitl Lopez MD) Cellulitis (Acute) Hypertension (Chronic) Bradycardia (Acute) Cellulitis of right lower extremity (Acute) Sepsis (Acute) Abnormal CT scan, kidney (Acute) Elevated white blood cell count (Acute) Congestive heart failure (CHF) (Chronic) Chronic venous insufficiency (Acute) COVID-19 (Acute) COVID (Acute) Obstructive sleep apnea (Chronic) COPD (chronic obstructive pulmonary disease) (Chronic) Anxiety (Chronic) Leg wound, left (Acute) Medical non-compliance (Acute) Dysphagia (Acute) Dyspnea (Acute) Dyspepsia (Acute) Discharge planning issues (Acute) DVT (deep venous thrombosis) (Chronic) Pneumonia (Acute) Aragon esophagus (Acute) Diabetic neuropathy (Acute) Traumatic hematoma of right upper arm (Acute) Likely due to trauma sustained in the ambulance Anemia due to acute blood loss (Acute) Symptomatic anemia (Acute) 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) (Acute) Opiate dependence (Chronic) managed on suboxone Hypertension (Chronic) Discharge planning issues (Acute) Aortic insufficiency (Acute) s/p valve replacement Diabetes mellitus (Chronic) Acute anemia (Acute) Medical History Cocaine abuse Hypertensive emergency 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 Displaced bimalleolar fracture of left ankle s/p infection of wound Tinea corporis Chronic pain Depression Right rotator cuff tear Aortic valve endocarditis MSSA (methicillin susceptible Staphylococcus aureus) septicemia Hepatitis C GERD (gastroesophageal reflux disease) Surgical History S/P endoscopy H/O aortic valve replacement Pericardial aortic valve at [facility] - 08/21/2018 - Magna Ease 25 mm S/P hardware removal L ankle. S/P percutaneous endoscopic gastrostomy (PEG) tube placement History of ankle surgery S/P spinal surgery Family History Father No problems noted. Mother COPD (chronic obstructive pulmonary disease) Hypertension Diabetes Heart disease Sister Stroke Social History Smoking/Tobacco Use Status: Current every day Tobacco Type: cigarettes Smoking risk assessment performed?: Yes Alcohol Intake: never Drug use: Daily Substance use type: marijuana and crack/cocaine Details: cocaine binge the last 2 days 09/29/23, on suboxone, last dose yesterday Caregiver/Support person: Yes Household members: friend(s) Housing: house Number of Children: 0 number of grandchildren: 1 current occupation: Disabled Pets and animals: Yes Pets and animals: cat(s) Current gender identity: male What type of physical activity do you participate in: none Do you feel safe at home: Yes Do you feel safe in your relationship?: Yes Additional Social history: Lives with ex- Vanessa, who is his caregiver. Lives in private home.
[2024-02-06 23:15] LABS: Lactate 1.6 mmol/L (0.6-1.4)
[2024-02-06 23:22] LABS: Abs Immature Grans 0.02 10^3/uL (0.0-0.06); Absolute Basophil Count 0.06 10^3/uL (0.0-0.2); Absolute Eosinophil Count 0.02 10^3/uL (0.0-0.7); Absolute Lymphocyte Count 1.04 10^3/uL (1.2-3.4); Absolute Monocyte Count 0.41 10^3/uL (0.1-0.8); Absolute Neutrophil Count 5.51 10^3/uL (1.2-6.7); Basophils % 0.8 %; Eosinophils % 0.3 %; HCT 48.5 % (40.0-50.0); HGB 15.2 g/dL (13.5-17.5); Immature Grans % 0.3 %; Lymphocytes % 14.7 %; MCH 26.9 pg (27.0-33.0); MCHC 31.3 % (32.0-36.0); MCV 86 fL (80-95); MPV 9.4 fL (8.0-11.0); Monocytes % 5.8 %; Neutrophils % 78.1 %; Platelet Count 393 10^3/uL (130-400); RBC 5.65 10^6/uL (4.36-5.78); RDW 15.2 % (11.8-14.1); RDW-SD 47.8 fL; WBC 7.06 10^3/uL (4.4-10.8)
[2024-02-06 23:24] LABS: ESR 21 mm/hr (0-20)
[2024-02-06 23:48] LABS: ALT 12 U/L (16-63); AST 15 U/L (15-37); Alkaline Phosphatase 98 U/L (46-116); Anion Gap 15.4 mmol/L (3-11); BUN 20 mg/dL (7-18); Bilirubin, Total 0.65 mg/dL (0.2-1.0); C-Reactive Protein 1.27 mg/dL (<or=0.5); CO2 24.6 mmol/L (21.0-32.0); CREATININE 1.4 mg/dL (0.70-1.30); Calcium 9.4 mg/dL (8.5-10.1); Chloride 101 mmol/L (98-107); Estimated GFR 58.26 (mL/min/1.73m2); Glucose 124 mg/dL (74-106); Magnesium 2.2 mg/dL (1.8-2.4); NT-proBNP 409 pg/mL (<300); Potassium 4.1 mmol/L (3.5-5.1); Sodium 141 mmol/L (136-145); Total Protein 8.9 g/dL (6.4-8.2); Troponin I 15 ng/L (<or=76)
[2024-02-07] VITALS (70 sets, daily range): BP systolic 131–261; BP diastolic 74–190; PULSE 32–79; RESP 9–27; TEMP 36.3–37.2; O2SAT 90–100
[2024-02-07 00:56] LABS: TSH (W/Ref FT4) 0.42 uIU/mL (0.36-3.74)
[2024-02-07] MEDS: CLINDAMYCIN 600 MG/50 ML BAG 100 MG IVPB ×3 (02:13→18:31)
--- NOTE | 2024-02-07 03:30 | W.PM.HP.N ---
Date of service: 02/07/24 Time of Service: 03:31 Assessment and Plan Assessment and plan (1) Cellulitis of right lower extremity: Start date: 02/07/24 Status: Acute Assessment and plan: This is a 58-year-old gentleman who has chronic skin changes of lower extremity with presentation to the ED stating that his legs are more painful than usual. He also states that they are more red and hot than usual. He was started on IV clindamycin which will be continued with wound care as needed. Long-term he should consider Unna boots but compliance is an issue. Blood cultures were performed. Patient may be at risk for self treatment with IV drug use but does not have an elevated WBC or evidence of recent use. He is status post attic valve replacement because of endocarditis. He is a full code. (2) Hypertension: Status: Chronic Assessment and plan: Patient has hypertension with bradycardia but denies any previous cardiac dysrhythmia. He is not on anticoagulation. Continue his usual outpatient medical therapy with which he may not be compliant. Diltiazem will be held because of his bradycardia. Consider additional medical therapy but will not affect his heart rate. (3) Bradycardia: Status: Chronic Assessment and plan: Patient does have chronic bradycardia every time he is hospitalized. He is not symptomatic other than having generalized weakness which appears to be from a separate issue. He appears oversedated with slow respiratory rate as well. Monitor cardiac rhythm and rate and intervene only if symptomatic. Hold diltiazem and consider other antihypertensives that will not affect heart rate. (4) Obstructive sleep apnea: Status: Chronic Assessment and plan: This should be evaluated and treated. Patient is a smoker should stop smoking. He is not hypoxic. (5) COPD (chronic obstructive pulmonary disease): Status: Chronic Assessment and plan: Patient has rhonchi with decreased respirations presently. Oversedated. Supportive care and continue outpatient maintenance medical therapy and rescue therapy as needed. Obtain chest x-ray with no imaging done in the ED. He has had no fever or change in sputum production. His WBC is not elevated. (6) Opiate dependence: Status: Chronic Assessment and plan: Patient is on Suboxone chronically with risk of self treating. He appears oversedated presently and urine drug screen with send outs for the usual street drugs will be obtained. Observation. (7) Chronic pain: Assessment and plan: Patient has generalized weakness present and cannot sit up in bed. He needs continued physical therapy and rehabilitation which may not happen at home alone. He is at risk for self treatment. (8) Cocaine abuse: Assessment and plan: Patient states he has not used drugs recently but urine drug screen will be sent with his appearance of both sedation and decreased respiratory rate. (9) Hepatitis C: Assessment and plan: Patient states that this problem has cleared. Follow liver functions. (10) Aortic valve endocarditis: Assessment and plan: Intact valve by echocardiogram done April 2023. Murmur not appreciated. (11) GERD (gastroesophageal reflux disease): Assessment and plan: Continue PPI. History of Present Illness History of Present Illness Chief Complaint: Generalized weakness with worsening leg pain. Narrative: This is a 58-year-old male patient who lives at home and usually ambulates on his own but is very poor historian and very medically noncompliant. He has chronic left lower extremity skin changes which are red with dry ulcers and he has not had any skin care wound care recently. He complains of recently having increased weakness with his legs being more red than usual especially on the right side. There is been no drainage. He does have chronic nonpitting edema. Denies any fever or chills but came to the ED because of weakness and increasing pain. In the ED he was found to have bradycardia which is chronic for the patient on diltiazem. He has no history of cardiac dysrhythmia and is not on anticoagulation. Diltiazem was held and patient continued to be bradycardic but not hypotensive though atropine was entertained in the ED, there is no documentation that event being given. His heart rate does occasionally drop below 30 with no symptoms. Patient in fact is hypertensive. He does smoke daily. Is on Suboxone and states that he is not taking other drugs. He appears sedated and has decreased respiration as if he is oversedated. Urine drug screens were performed. Patient was admitted to [facility] level of care but was in the ICU because of bradycardia and concern for needing to intervene. He is a full code. Review of Systems Narrative: Review of systems positive for chronic smoker's cough and history of sleep apnea not on treatment, otherwise unrevealing or stable. Patient does have chronic pain. FORMERLY [facility], [facility] All Active Problems (Updated 02/07/24 @ 04:05 by Buzz Marcum) Cellulitis (Acute) Hypertension (Chronic) Bradycardia (Chronic) Cellulitis of right lower extremity (Acute) Sepsis (Acute) Abnormal CT scan, kidney (Acute) Elevated white blood cell count (Acute) Congestive heart failure (CHF) (Chronic) Chronic venous insufficiency (Acute) COVID-19 (Acute) COVID (Acute) Obstructive sleep apnea (Chronic) COPD (chronic obstructive pulmonary disease) (Chronic) Anxiety (Chronic) Leg wound, left (Acute) Medical non-compliance (Acute) Dysphagia (Acute) Dyspnea (Acute) Dyspepsia (Acute) Discharge planning issues (Acute) DVT (deep venous thrombosis) (Chronic) Pneumonia (Acute) Aragon esophagus (Acute) Diabetic neuropathy (Acute) Traumatic hematoma of right upper arm (Acute) Likely due to trauma sustained in the ambulance Anemia due to acute blood loss (Acute) Symptomatic anemia (Acute) 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) (Acute) Opiate dependence (Chronic) managed on suboxone Hypertension (Chronic) Discharge planning issues (Acute) Aortic insufficiency (Acute) s/p valve replacement Diabetes mellitus (Chronic) Acute anemia (Acute) Medical History Cocaine abuse Hypertensive emergency 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 Displaced bimalleolar fracture of left ankle s/p infection of wound Tinea corporis Chronic pain Depression Right rotator cuff tear Aortic valve endocarditis MSSA (methicillin susceptible Staphylococcus aureus) septicemia Hepatitis C GERD (gastroesophageal reflux disease) Surgical History S/P endoscopy H/O aortic valve replacement [place] [facility] [place] Magna Ease 25 mm S/P hardware removal L ankle. S/P percutaneous endoscopic gastrostomy (PEG) tube placement History of ankle surgery S/P spinal surgery Family History Father No problems noted. Mother COPD (chronic obstructive pulmonary disease) Hypertension Diabetes Heart disease Sister Stroke Social History Smoking/Tobacco Use Status: Current every day Tobacco Type: cigarettes Smoking risk assessment performed?: Yes Alcohol Intake: never Drug use: Daily Substance use type: marijuana and crack/cocaine Details: cocaine binge the last 2 days 09/29/23, on suboxone, last dose yesterday Caregiver/Support person: Yes Household members: friend(s) Housing: house Number of Children: 0 number of grandchildren: 1 current occupation: Disabled Pets and animals: Yes Pets and animals: cat(s) Current gender identity: male What type of physical activity do you participate in: none Do you feel safe at home: Yes Do you feel safe in your relationship?: Yes Additional Social history: Lives with ex- Vanessa, who is his caregiver. Lives in private home. Meds Allergies and Home Medications Allergies Allergy/AdvReac Type Severity Reaction Status Date / Time Penicillins AdvReac Severe Vomiting Verified 12/25/23 17:47 hydrocodone AdvReac Intermediate vomiting Verified 12/25/23 17:47 Home Medications ?Medication ?Instructions ?Recorded ?Confirmed ?Type esomeprazole magnesium 40 mg 40 mg PO DAILY 05/05/20 12/25/23 History capsule,delayed release (Nexium) aspirin 81 mg tablet 81 mg PO DAILY 08/03/20 12/25/23 History duloxetine 30 mg capsule,delayed 30 mg PO BID 08/03/20 12/25/23 History release acetaminophen 325 mg tablet 1,000 mg PO Q6H PRN 09/27/20 12/25/23 History (Tylenol) umeclidinium 62.5 mcg-vilanterol 1 ea inhalation DAILY 09/27/20 12/25/23 History 25 mcg/actuation powdr for inhalation (Anoro Ellipta) buprenorphine 4 mg-naloxone 1 mg 1 film sublingual DAILY 09/28/20 12/25/23 History sublingual film (Suboxone) albuterol sulfate 90 mcg/actuation 2 inh inhalation Q6H PRN 04/12/22 12/25/23 History aerosol inhaler dulaglutide 4.5 mg/0.5 mL 4.5 mg subcut QWEEK 04/12/22 12/26/23 History subcutaneous pen injector (Trulicity) cyanocobalamin (vitamin B-12) 1,000 mcg PO DAILY 03/06/23 12/25/23 History 1,000 mcg tablet (Vitamin B-12) lisinopril 40 mg tablet 40 mg PO DAILY 06/14/23 12/25/23 History amlodipine 2.5 mg tablet 2.5 mg PO DAILY 09/30/23 12/25/23 History gabapentin 600 mg tablet 600 mg PO TID 09/30/23 12/25/23 History beclomethasone dipropionate 80 1 inh inhalation BID PRN 12/27/23 12/27/23 History mcg/actuation HFA breath activated aerosol (Qvar RediHaler) diltiazem HCl 60 mg tablet 60 mg PO BID #90 tabs 12/29/23 Rx (Cardizem) furosemide 40 mg tablet (Lasix) 40 mg PO DAILY #0 tabs 12/29/23 12/25/23 Rx Exam Narrative Exam Narrative: General: Patient appears older than stated age, flattened affect with poor eye contact and appeared oversedated. He is snoring upon being approached but awakens easily. He is alert and oriented at least to person and place. He appears in no acute distress. HEENT: Normocephalic, eyes with pupils equal and reactive to light symmetrically, extraocular move intact and sclera anicteric. Or mucosa dry. Neck: Supple without JVD. Lungs: Bronchovesicular breath sound diffusely with rhonchi partially clearing with cough, no focalizing rales or crackles. Fair aeration. Heart: Bradycardic rate with normal rhythm. No appreciable murmur or gallop. (Patient is status post bioprosthetic aortic valve replacement). Abdomen: Scaphoid contour, soft and nontender to palpation with no palpable hepatosplenomegaly. Genitalia/rectal: Exam deferred. Extremities: Nonpitting edema both lower extremities with erythema and increased warmth to touch circumferentially over both legs worse on the right than left with dry ulcers and scabs on the right. No drainage. Skin is atrophic and shiny. There is loss of hair. Fair capillary refill. Skin: Skin changes lower legs as described, otherwise warm and moist. Normal color in all other areas of the skin palpated. Unkempt. Neuro: Cranial nerves II through XII gross intact, no focalized motor deficits and no tremor. Psych: Flattened affect with depressed mood. Patient appears oversedated. He is not delirious. No abnormal thought processes. Remote and recent memory appear grossly intact the patient is a very poor historian. He does not know his past medical history or medications as well as he should living alone. Results Imaging Imaging Studies: EXAM: Comprehensive 2D, Doppler, and color-flow Echocardiogram Date of Exam: 05/17/23 Indications: Bioprosthetic aortic valve, CHF Other Information Study Quality: Adequate Conclusion Mild concentric left ventricular hypertrophy. Ejection fraction is 60%. Wall motion is normal Normal right ventricular size and function Both atria are normal in size There is a bioprosthetic aortic valve. Mean gradient is 15 mm Hg. There is no aortic regurgitation Normal mitral valve with trace regurgitation Trace tricuspid regurgitation. Estimated right ventricular systolic pressure is 39 mmHg Ascending aorta 3.71 cm Labs 02/07/24 04:20 02/07/24 04:20 Labs: Laboratory Results - last 24 hr 02/06/24 23:02 WBC 7.06 RBC 5.65 Hgb 15.2 Hct 48.5 MCV 86 MCH 26.9 L MCHC 31.3 L RDW 15.2 H Plt Count 393 MPV 9.4 Immature Gran % 0.3 Neutrophils % 78.1 Lymphocytes % 14.7 Monocytes % 5.8 Eosinophils % 0.3 Basophils % 0.8 Nucleated RBC % 0.0 Absolute Neutrophils 5.51 Absolute Lymphocytes 1.04 L Absolute Monocytes 0.41 Absolute Eosinophils 0.02 Absolute Basophils 0.06 ESR 21 H VBG Lactate 1.6 H Sodium 141 Potassium 4.1 Chloride 101 Carbon Dioxide 24.6 Anion Gap 15.4 H BUN 20 H Creatinine 1.4 H Est GFR (CKD-EPI 2020) 58.26 Glucose 124 H Calcium 9.4 Magnesium 2.2 Total Bilirubin 0.65 AST 15 ALT 12 L Alkaline Phosphatase 98 Troponin I 15 C-Reactive Protein 1.27 H NT-Pro-B Natriuret Pep 409 H Total Protein 8.9 H Albumin 4.0 TSH 0.42 Last Vital Signs Pulse 48 L 02/07/24 01:16 Resp 12 02/07/24 01:30 BP 160/110 H 02/07/24 01:16 Pulse Ox 97 02/07/24 01:20 Time Spent Time spent with Patient: >75 minutes Time was spent: preparing to see the patient(eg.review tests), obtaining and/or reviewing separately otained hiistory, ordering medications,tests, procedures, indepentently interpreting results, counseling the patient and care coordination
[2024-02-07 04:32] LABS: Source Nasal/Nares
[2024-02-07 04:33] LABS: BE (Venous) 3 mmol/L (-2-3); HCO3 (Venous) 29 mmol/L (23-28); O2 Sat (Venous) 32 %; TCO2 (Venous) 26 mmol/L (24-29); pCO2 (Venous) 55 mmHg (41-51); pH (Venous) 7.33 (7.31-7.41); pO2 (Venous) 22 mmHg
[2024-02-07 04:41] LABS: HGB 13.9 g/dL (13.5-17.5); MCH 27.1 pg (27.0-33.0); MCHC 31.6 % (32.0-36.0); MCV 86 fL (80-95); Platelet Count 373 10^3/uL (130-400); RBC 5.13 10^6/uL (4.36-5.78); RDW 15.1 % (11.8-14.1); RDW-SD 47.7 fL; WBC 8.16 10^3/uL (4.4-10.8)
[2024-02-07 04:52] LABS: ALT 7 U/L (16-63); AST 13 U/L (15-37); Albumin 3.5 g/dL (3.4-5.0); Alkaline Phosphatase 84 U/L (46-116); Anion Gap 8.5 mmol/L (3-11); BUN 21 mg/dL (7-18); Bilirubin, Total 0.56 mg/dL (0.2-1.0); CO2 28.5 mmol/L (21.0-32.0); CREATININE 1.4 mg/dL (0.70-1.30); Calcium 9.3 mg/dL (8.5-10.1); Chloride 105 mmol/L (98-107); Estimated GFR 58.26 (mL/min/1.73m2); Glucose 82 mg/dL (74-106); Magnesium 2.2 mg/dL (1.8-2.4); Potassium 4.4 mmol/L (3.5-5.1); Sodium 142 mmol/L (136-145); Total Protein 7.8 g/dL (6.4-8.2)
[2024-02-07 05:04] LABS: C-Reactive Protein 1.01 mg/dL (<or=0.5)
[2024-02-07 05:08] LABS: COVID-19 PCR Negative (Negative)
[2024-02-07] MEDS: Tiotropium/Olodaterol 10 PUFF INHALER 2 PUFF IH (08:11)
[2024-02-07] MEDS: Gabapentin 600 MG TAB PO ×3 (08:16→19:42)
[2024-02-07] MEDS: Buprenorphine/Naloxone 4 mg/1 mg FILM 1 EACH SL (08:16)
[2024-02-07] MEDS: Esomeprazole 40 MG CAPCR PO (08:16)
[2024-02-07] MEDS: DULoxetine 30 MG CAP PO ×2 (08:16→19:42)
[2024-02-07] MEDS: amLODIPine 5 MG TAB 2.5 MG PO (08:16)
[2024-02-07] MEDS: Lisinopril 20 MG TAB 40 MG PO (08:17)
[2024-02-07] MEDS: Aspirin 81 MG CHEW PO (08:17)
[2024-02-07] MEDS: Cyanocobalamin 500 MCG TAB 1000 MCG PO (08:17)
[2024-02-07] MEDS: Furosemide 40 MG TAB PO (08:17)
[2024-02-07] MEDS: Ondansetron 4 MG/2 ML VIAL IVP (08:40)
[2024-02-07] MEDS: Normal Saline Flush 10 ML SYR IVP ×4 (09:03→19:42)
--- NOTE | 2024-02-07 10:08 | DI.RAD_ITS ---
Exam(s) XR PORTABLE CHEST AP EXAM: XR PORTABLE CHEST AP CLINICAL HISTORY: Tobacco use neuro with rhonchi/cough TECHNIQUE: 2D digital imaging was performed of the chest. One image was obtained. An AP view was ob tained. COMPARISON: CR,XR XR PORTABLE CHEST AP from 09/29/2023 CR,XR XR CHEST 1V IN DI DEPT from 12/25/2023 FINDINGS: Examination is limited by overlying monitoring equipment. MEDIASTINUM: Normal. HEART: Normal. PULMONARY VASCULATURE: Normal. LUNGS: Clear. PLEURAL SPACE: No pleural effusion or pneumothorax. BONE:Within normal limits for the patient's age. Sternal wires are in place. OTHER FINDINGS:Normal. IMPRESSION: No acute pulmonary findings. DATA REPOSITORY: RADIATION DOSE DELIVERED:
[2024-02-07] MEDS: Enoxaparin 40 MG/0.4 ML SYR SC (11:10)
--- NOTE | 2024-02-07 11:53 | W.PM.PROGNOT ---
Date of Service Date of service: 02/07/24 Time of Service: 11:53 Assessment and Plan Assessment and plan (1) Cellulitis of right lower extremity: Start date: 02/07/24 Status: Acute Assessment and plan: This is a 58-year-old gentleman who has chronic skin changes of lower extremity with presentation to the ED stating that his legs are more painful than usual. He also states that they are more red and hot than usual. He was started on IV clindamycin which will be continued with wound care as needed. Long-term he should consider Unna boots but compliance is an issue. Blood cultures were performed. Patient may be at risk for self treatment with IV drug use but does not have an elevated WBC or evidence of recent use. He is status post attic valve replacement because of endocarditis. He is a full code. 02/07/24 PT states that his ble pain has improved. WIll cw abx at this point. Will consider BLE arterial usn if this hasn't been done before. Will also order echo 2/2 his history although I don't appreciate any murmurs (2) Hypertension: Status: Chronic Assessment and plan: Patient has hypertension with bradycardia but denies any previous cardiac dysrhythmia. He is not on anticoagulation. Continue his usual outpatient medical therapy with which he may not be compliant. Diltiazem will be held because of his bradycardia. Consider additional medical therapy but will not affect his heart rate. 02/07/24 PT current bp is 120/77 (3) Bradycardia: Status: Chronic Assessment and plan: Patient does have chronic bradycardia every time he is hospitalized. He is not symptomatic other than having generalized weakness which appears to be from a separate issue. He appears oversedated with slow respiratory rate as well. Monitor cardiac rhythm and rate and intervene only if symptomatic. Hold diltiazem and consider other antihypertensives that will not affect heart rate. 02/07/24 PT does have a long history of bradycardia. Exact etiology is unknonw. Would consider following up with EP but will leave to the discretion of the PCP. I will add a tsh and tick/lyme panel for completeness although would be suprised if these were contributors (4) Obstructive sleep apnea: Status: Chronic Assessment and plan: This should be evaluated and treated. Patient is a smoker should stop smoking. He is not hypoxic. (5) COPD (chronic obstructive pulmonary disease): Status: Chronic Assessment and plan: Patient has rhonchi with decreased respirations presently. Oversedated. Supportive care and continue outpatient maintenance medical therapy and rescue therapy as needed. Obtain chest x-ray with no imaging done in the ED. He has had no fever or change in sputum production. His WBC is not elevated. (6) Opiate dependence: Status: Chronic Assessment and plan: Patient is on Suboxone chronically with risk of self treating. He appears oversedated presently and urine drug screen with send outs for the usual street drugs will be obtained. Observation. (7) Chronic pain: Assessment and plan: Patient has generalized weakness present and cannot sit up in bed. He needs continued physical therapy and rehabilitation which may not happen at home alone. He is at risk for self treatment. (8) Cocaine abuse: Assessment and plan: Patient states he has not used drugs recently but urine drug screen will be sent with his appearance of both sedation and decreased respiratory rate. (9) Hepatitis C: Assessment and plan: Patient states that this problem has cleared. Follow liver functions. (10) Aortic valve endocarditis: Assessment and plan: Intact valve by echocardiogram done April 2023. Murmur not appreciated. (11) GERD (gastroesophageal reflux disease): Assessment and plan: Continue PPI. Subjective Subjective Interval history since last seen: pt seen and examined in his room. POC d/w pt as well as with bedside nursing during icu huddle. Pt states that his LE pain has improved. Exam Narrative Exam Narrative: General: Patient appears older than stated age, flattened affect with poor eye contact and appeared oversedated. He is snoring upon being approached but awakens easily. He is alert and oriented at least to person and place. He appears in no acute distress. HEENT: Normocephalic, eyes with pupils equal and reactive to light symmetrically, extraocular move intact and sclera anicteric. Or mucosa dry. Neck: Supple without JVD. Lungs: Bronchovesicular breath sound diffusely with rhonchi partially clearing with cough, no focalizing rales or crackles. Fair aeration. Heart: Bradycardic rate with normal rhythm. No appreciable murmur or gallop. (Patient is status post bioprosthetic aortic valve replacement). Abdomen: Scaphoid contour, soft and nontender to palpation with no palpable hepatosplenomegaly. Genitalia/rectal: Exam deferred. Extremities: Nonpitting edema both lower extremities with erythema and increased warmth to touch circumferentially over both legs worse on the right than left with dry ulcers and scabs on the right. No drainage. Skin is atrophic and shiny. There is loss of hair. Fair capillary refill. Skin: Skin changes lower legs as described, otherwise warm and moist. Normal color in all other areas of the skin palpated. Unkempt. Neuro: Cranial nerves II through XII gross intact, no focalized motor deficits and no tremor. Psych: Flattened affect with depressed mood. Patient appears oversedated. He is not delirious. No abnormal thought processes. Remote and recent memory appear grossly intact the patient is a very poor historian. He does not know his past medical history or medications as well as he should living alone. Objective Last Vital Signs Temp 37.2 C 02/07/24 08:30 Pulse 45 L 02/07/24 04:03 Resp 13 02/07/24 05:00 BP 170/77 H 02/07/24 04:03 Pulse Ox 96 02/07/24 05:00 Laboratory Results - last 24 hr 02/06/24 02/07/24 23:02 04:20 WBC 7.06 8.16 RBC 5.65 5.13 Hgb 15.2 13.9 Hct 48.5 44.0 MCV 86 86 MCH 26.9 L 27.1 MCHC 31.3 L 31.6 L RDW 15.2 H 15.1 H Plt Count 393 373 MPV 9.4 9.0 Immature Gran % 0.3 Neutrophils % 78.1 Lymphocytes % 14.7 Monocytes % 5.8 Eosinophils % 0.3 Basophils % 0.8 Nucleated RBC % 0.0 Absolute Neutrophils 5.51 Absolute Lymphocytes 1.04 L Absolute Monocytes 0.41 Absolute Eosinophils 0.02 Absolute Basophils 0.06 ESR 21 H VBG pH 7.33 VBG pCO2 55 H VBG pO2 22 VBG HCO3 29 H VBG Total CO2 26 VBG O2 Saturation 32 VBG Base Excess 3 VBG Lactate 1.6 H Sodium 141 142 Potassium 4.1 4.4 Chloride 101 105 Carbon Dioxide 24.6 28.5 Anion Gap 15.4 H 8.5 BUN 20 H 21 H Creatinine 1.4 H 1.4 H Est GFR (CKD-EPI 2020) 58.26 58.26 Glucose 124 H 82 Calcium 9.4 9.3 Magnesium 2.2 2.2 Total Bilirubin 0.65 0.56 AST 15 13 L ALT 12 L 7 L Alkaline Phosphatase 98 84 Troponin I 15 C-Reactive Protein 1.27 H 1.01 H NT-Pro-B Natriuret Pep 409 H Total Protein 8.9 H 7.8 Albumin 4.0 3.5 TSH 0.42 COVID-19 Source Nasal/Nares SARS-CoV-2 (PCR) Negative Time Spent with Patient Time Spent with Patient: 35-49 minutes Time was spent: preparing to see the patient(eg.review tests), obtaining and/or reviewing separately otained hiistory, ordering medications,tests, procedures, referring, communicating with other health clinical care manager, indepentently interpreting results, counseling the patient and care coordination
[2024-02-07 14:51] LABS: *AMPHETAMINES SCREEN URINE Negative (Negative); *BARBITURATES SCREEN URINE Negative (Negative); *BENZODIAZEPINES SCREEN URINE Negative (Negative); Cannabinoids THC Positive (Negative); Cocaine Screen,Urine Positive (Negative); METHADONE URINE SCREEN Negative (Negative); OPIATES URINE SCREEN Negative (Negative); Tricyclic Antidepressants Negative (Negative)
--- NOTE | 2024-02-07 15:07 | PDOC.CMIN ---
Date of service: 02/07/24 Time of Service: 15:07 Care Management Initial Assmt Initial Assessment Reason for Hospitalization: cellulitis Functional Status/Living Situation Patient Presentation: Mio was sitting up in bed when CM met with him. He was polite and engaged well with CM, known to him from previous admissions. Mio has [facility] highest needs and lives with his caregiver Arline Vanegas in [place]. He requires assistance with bathing, dressing and other ADLs and uses a walker for ambulation. Mio does not have any relatives or close friends but did share that he and Arline are friendly and get along well. During the visit he informed CM that he vomited right after taking his suboxone this morning and requested another dose. CM shared the request with the provider. Town of Residence: [place] Resides with: Other (caregiver Arline Vanegas) Caregiver/Guardian: Arline Vanegas Natural Supports: has no close friends or relatives Employment Status: Disabled Instrumental Activities of Daily Living (ADLs): Requires support Activities/Hobbies/SocialSupport: [facility] highest needs Has 24/7 caregiver and requires assistance with ADLs etc Medications Medication Management: No Issues/Barriers identified Physical Functioning/Mobility Assistive Device: walker Advance Directives Advance Directives: Do you have an Advance Directive: Y 10/10/19 10:02 AD On File at [facility]: N 06/07/12 08:23 Date Asked 02/06/24 02/06/24 22:39 AD Date Reviewed COLST On File at [facility] No 09/29/23 21:52 COLST Date Scanned Code Status Resuscitation Status Full Code Portal Pt does not currently have a portal and education provided: No Insurance Coverage/Financial Issues [place]: [place] Care Team Visit Care Team Role Provider Type Evon Howard MD Primary Care Provider [facility] STAFF PHYSICIAN Xochitl Lopez MD Emergency Provider [facility] STAFF PHYSICIAN Buzz Marcum Admit Provider NON-[facility] STAFF PHYSICIAN Attending Provider Discharge Potential Discharge Needs: PCP F/U Appt Anticipated Barriers to Discharge: None Identified Patient/Family Education Needs: Review discharge instructions, discuss Ask Me Three Transportation: Private vehicle Plan: Anticipate Mio will be discharged back to his caregiver's home when medically stable. He will follow up with his community providers and plan of care and transport with family. CM will follow and continue to assess for discharge needs. PFSH All Active Problems (Updated 02/07/24 @ 04:05 by Buzz Marcum) Cellulitis (Acute) Hypertension (Chronic) Bradycardia (Chronic) Cellulitis of right lower extremity (Acute) Sepsis (Acute) Abnormal CT scan, kidney (Acute) Elevated white blood cell count (Acute) Congestive heart failure (CHF) (Chronic) Chronic venous insufficiency (Acute) COVID-19 (Acute) COVID (Acute) Obstructive sleep apnea (Chronic) COPD (chronic obstructive pulmonary disease) (Chronic) Anxiety (Chronic) Leg wound, left (Acute) Medical non-compliance (Acute) Dysphagia (Acute) Dyspnea (Acute) Dyspepsia (Acute) Discharge planning issues (Acute) DVT (deep venous thrombosis) (Chronic) Pneumonia (Acute) Aragon esophagus (Acute) Diabetic neuropathy (Acute) Traumatic hematoma of right upper arm (Acute) Likely due to trauma sustained in the ambulance Anemia due to acute blood loss (Acute) Symptomatic anemia (Acute) 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) (Acute) Opiate dependence (Chronic) managed on suboxone Hypertension (Chronic) Discharge planning issues (Acute) Aortic insufficiency (Acute) s/p valve replacement Diabetes mellitus (Chronic) Acute anemia (Acute) Medical History Cocaine abuse Hypertensive emergency 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 Displaced bimalleolar fracture of left ankle s/p infection of wound Tinea corporis Chronic pain Depression Right rotator cuff tear Aortic valve endocarditis MSSA (methicillin susceptible Staphylococcus aureus) septicemia Hepatitis C GERD (gastroesophageal reflux disease) Surgical History S/P endoscopy H/O aortic valve replacement Pericardial aortic valve at [facility] - 08/21/2018 - Magna Ease 25 mm S/P hardware removal L ankle. S/P percutaneous endoscopic gastrostomy (PEG) tube placement History of ankle surgery S/P spinal surgery Family History Father No problems noted. Mother COPD (chronic obstructive pulmonary disease) Hypertension Diabetes Heart disease Sister Stroke Social History Smoking/Tobacco Use Status: Current every day Tobacco Type: cigarettes Smoking risk assessment performed?: Yes Alcohol Intake: never Drug use: Daily Substance use type: marijuana and crack/cocaine Details: cocaine binge the last 2 days 09/29/23, on suboxone, last dose yesterday Caregiver/Support person: Yes Household members: friend(s) Housing: house Number of Children: 0 number of grandchildren: 1 current occupation: Disabled Pets and animals: Yes Pets and animals: cat(s) Current gender identity: male What type of physical activity do you participate in: none Do you feel safe at home: Yes Do you feel safe in your relationship?: Yes Additional Social history: Lives with ex- Vanessa, who is his caregiver. Lives in private home. SDOH(Care Management) Screening Will the Patient Participate in the Screening?: Unable to obtain
[2024-02-07 15:24] LABS: Bilirubin Negative (Negative); Blood Negative (Negative); Clarity Clear (Clear); Glucose Negative (Negative); Ketones 40 mg/dL (Negative); Leukocyte Esterase Negative (Negative); Nitrite Negative (Negative); Urobilinogen 0.2 mg/dL (Up to 0.2); pH 5.5 (5-8)
[2024-02-07 15:35] LABS: WBC 0-2 HPF (0-5)
[2024-02-07 15:36] LABS: Bacteria Negative HPF (Negative); C & S Indicated? No; Casts Negative LPF (Negative); Crystals Negative HPF (Negative); Epithelial Cells Negative HPF (Negative); Mucus Negative (Negative); RBC Negative HPF (0-2)
--- NOTE | 2024-02-07 17:55 | PDOC.CMIN ---
Date of service: 02/07/24 Time of Service: 17:55 Care Management Initial Assmt Initial Assessment Reason for Hospitalization: cellulitis Advance Directives Advance Directives: Do you have an Advance Directive: Y 10/10/19 10:02 AD On File at [facility]: N 06/07/12 08:23 Date Asked 02/06/24 02/06/24 22:39 AD Date Reviewed COLST On File at [facility] No 09/29/23 21:52 COLST Date Scanned Code Status Resuscitation Status Full Code Care Team Visit Care Team Role Provider Type Evon Howard MD Primary Care Provider [facility] STAFF PHYSICIAN Xochitl Lopez MD Emergency Provider [facility] STAFF PHYSICIAN Buzz Marcum Admit Provider NON-[facility] STAFF PHYSICIAN Attending Provider [facility] All Active Problems (Updated 02/07/24 @ 04:05 by Buzz Marcum) Cellulitis (Acute) Hypertension (Chronic) Bradycardia (Chronic) Cellulitis of right lower extremity (Acute) Sepsis (Acute) Abnormal CT scan, kidney (Acute) Elevated white blood cell count (Acute) Congestive heart failure (CHF) (Chronic) Chronic venous insufficiency (Acute) COVID-19 (Acute) COVID (Acute) Obstructive sleep apnea (Chronic) COPD (chronic obstructive pulmonary disease) (Chronic) Anxiety (Chronic) Leg wound, left (Acute) Medical non-compliance (Acute) Dysphagia (Acute) Dyspnea (Acute) Dyspepsia (Acute) Discharge planning issues (Acute) DVT (deep venous thrombosis) (Chronic) Pneumonia (Acute) Aragon esophagus (Acute) Diabetic neuropathy (Acute) Traumatic hematoma of right upper arm (Acute) Likely due to trauma sustained in the ambulance Anemia due to acute blood loss (Acute) Symptomatic anemia (Acute) 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) (Acute) Opiate dependence (Chronic) managed on suboxone Hypertension (Chronic) Discharge planning issues (Acute) Aortic insufficiency (Acute) s/p valve replacement Diabetes mellitus (Chronic) Acute anemia (Acute) Medical History Cocaine abuse Hypertensive emergency 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 Displaced bimalleolar fracture of left ankle s/p infection of wound Tinea corporis Chronic pain Depression Right rotator cuff tear Aortic valve endocarditis MSSA (methicillin susceptible Staphylococcus aureus) septicemia Hepatitis C GERD (gastroesophageal reflux disease) Surgical History S/P endoscopy H/O aortic valve replacement Pericardial aortic valve at [facility] - 08/21/2018 - Magna Ease 25 mm S/P hardware removal L ankle. S/P percutaneous endoscopic gastrostomy (PEG) tube placement History of ankle surgery S/P spinal surgery Family History Father No problems noted. Mother COPD (chronic obstructive pulmonary disease) Hypertension Diabetes Heart disease Sister Stroke Social History Smoking/Tobacco Use Status: Current every day Tobacco Type: cigarettes Smoking risk assessment performed?: Yes Alcohol Intake: never Drug use: Daily Substance use type: marijuana and crack/cocaine Details: cocaine binge the last 2 days 09/29/23, on suboxone, last dose yesterday Caregiver/Support person: Yes Household members: friend(s) Housing: house Number of Children: 0 number of grandchildren: 1 current occupation: Disabled Pets and animals: Yes Pets and animals: cat(s) Current gender identity: male What type of physical activity do you participate in: none Do you feel safe at home: Yes Do you feel safe in your relationship?: Yes Additional Social history: Lives with ex- Vanessa, who is his caregiver. Lives in private home. SDOH(Care Management) Screening Will the Patient Participate in the Screening?: Yes Do you worry about having a steady place to live?: no Problems where you live: no known problems In the past 12 months, have you had to go without electric, gas, oil or water in your home?: no Have you or anyone in your house had to go without enough food to eat?: no Has lack of transportation kept you from medical appointments or from doing things needed for daily living?: no Has anyone in your support network made you feel unsafe for any reason?: no
--- NOTE | 2024-02-07 18:46 | W.PC.ACHO ---
Registration Status: Primary Language: Preferred Language: ED Information & Data Chief Complaint GenMedical 02/06/24 23:02 Triage Note BIBA, reddened legs. Chronic 02/06/24 22:22 problem. worsening pain in the last two to three days. A+ox4. [facility] Medical / Surgical History (Last Reviewed 02/07/24 @ 03:31 by Buzz Marcum) Cocaine abuse Hypertensive emergency Cerebral septic emboli GI bleed Osteomyelitis of left fibula DVT, lower extremity Hypomagnesemia Endocarditis G tube feedings Displaced bimalleolar fracture of left ankle Tinea corporis Chronic pain Depression Right rotator cuff tear Aortic valve endocarditis MSSA (methicillin susceptible Staphylococcus aureus) septicemia Hepatitis C GERD (gastroesophageal reflux disease) (Last Reviewed 02/07/24 @ 03:31 by Buzz Marcum) S/P endoscopy H/O aortic valve replacement S/P hardware removal S/P percutaneous endoscopic gastrostomy (PEG) tube placement History of ankle surgery S/P spinal surgery Most Recent Vital Signs Temperature 36.8 C 02/07/24 12:47 Temperature Source Temporal Artery Scan 02/07/24 12:47 Pulse 57 L 02/07/24 17:01 Pulse 58 L 02/07/24 17:01 Respiratory Rate 14 02/07/24 17:01 Respiratory Effort Normal 02/07/24 04:30 Respiratory Depth Normal 02/07/24 04:30 Respiratory Pattern Normal 02/07/24 04:30 Blood Pressure 142/81 H 02/07/24 17:01 Blood Pressure Mean 98 02/07/24 17:01 Blood Pressure Position Supine 02/07/24 03:39 Pulse Oximetry 96 02/07/24 17:01 Oxygen Delivery Method Nasal Cannula 02/07/24 08:30 Oxygen Flow Rate 2 02/07/24 08:30 Pain Level 0 02/07/24 17:15 Allergies Penicillins Adverse Reaction (Severe, Verified 12/25/23 17:47) Vomiting hydrocodone Adverse Reaction (Intermediate, Verified 12/25/23 17:47) vomiting Precautions Isolation Standard precaution 02/06/24 22:27 Active Medications Generic Name Dose Route Start Last Admin Trade Name Freq PRN Reason Stop Dose Admin Amlodipine Besylate 2.5 mg 02/07/24 08:30 02/07/24 08:16 Amlodipine 5 Mg Tab PO 2.5 mg DAILY HAMLET Administration Aspirin 81 mg 02/07/24 08:30 02/07/24 08:17 Aspirin 81 Mg Chew PO 81 mg DAILY HAMLET Administration Buprenorphine/Naloxone 1 each 02/07/24 08:30 02/07/24 08:16 Buprenorphine/Naloxone 4 Mg/1 Mg Film SL 1 each DAILY HAMLET Administration Cyanocobalamin 1,000 mcg 02/07/24 08:30 02/07/24 08:17 Cyanocobalamin 500 Mcg Tab PO 1,000 mcg DAILY HAMLET Administration Duloxetine HCl 30 mg 02/07/24 08:30 02/07/24 08:16 Duloxetine 30 Mg Cap PO 30 mg BID HAMLET Administration Enoxaparin Sodium 40 mg 02/07/24 10:00 02/07/24 11:10 Enoxaparin 40 Mg/0.4 Ml Syr SC 40 mg Q24H HAMLET Administration Esomeprazole Magnesium 40 mg 02/07/24 07:30 02/07/24 08:16 Esomeprazole 40 Mg Capcr PO 40 mg 0730 HAMLET Administration Furosemide 40 mg 02/07/24 08:30 02/07/24 08:17 Furosemide 40 Mg Tab PO 40 mg DAILY HAMLET Administration Gabapentin 600 mg 02/07/24 08:30 02/07/24 13:53 Gabapentin 600 Mg Tab PO 600 mg TID HAMLET Administration Clindamycin Phosphate/Dextrose 600 mg in 50 mls @ 100 mls/hr 02/07/24 10:00 02/07/24 18:31 Cleocin In D5w IVPB 100 mls/hr Q8H HAMLET Administration Insulin Aspart 0 - 9 units 02/07/24 08:00 02/07/24 17:42 Insulin Aspart 300 Units/3 Ml Pen SC Not Given 0800,1200,1700,2200 [facility] Protocol Lisinopril 40 mg 02/07/24 08:30 02/07/24 08:17 Lisinopril 20 Mg Tab PO 40 mg DAILY HAMLET Administration Ondansetron HCl 4 mg 02/07/24 08:48 02/07/24 08:40 Ondansetron 4 Mg/2 Ml Vial IVP 4 mg Q6H PRN PRN Administration Sodium Chloride 0 ml 02/07/24 03:54 02/07/24 18:32 Normal Saline Flush 10 Ml Syr IVP 10 ml PRN PRN Administration Sodium Chloride 0 ml 02/07/24 08:30 02/07/24 09:03 Normal Saline Flush 10 Ml Syr IVP 10 ml BID HAMLET Administration Tiotropium [place]/Olodaterol 2 puff 02/07/24 08:30 02/07/24 08:11 Tiotropium/Olodaterol 10 Puff Inhaler IH 2 inh DAILY HAMLET Administration IV IV Catheter Type [Left Saline Lock Antecubital] IV Catheter Gauge [Left 18 Antecubital] Diagnostics 02/07/24 02/07/24 02/06/24 Range/Units 10:00 04:20 23:02 WBC 8.16 7.06 (4.4-10.8) 10^3/uL RBC 5.13 5.65 (4.36-5.78) 10^6/uL Hgb 13.9 15.2 (13.5-17.5) g/dL Hct 44.0 48.5 (40.0-50.0) % MCV 86 86 (80-95) fL MCH 27.1 26.9 L (27.0-33.0) pg MCHC 31.6 L 31.3 L (32.0-36.0) % RDW 15.1 H 15.2 H (11.8-14.1) % Plt Count 373 393 (130-400) 10^3/uL MPV 9.0 9.4 (8.0-11.0) fL Immature Gran % 0.3 % Neutrophils % 78.1 % Lymphocytes % 14.7 % Monocytes % 5.8 % Eosinophils % 0.3 % Basophils % 0.8 % Nucleated RBC % 0.0 (0.0-0.3) % Absolute Neutrophils 5.51 (1.2-6.7) 10^3/uL Absolute Lymphocytes 1.04 L (1.2-3.4) 10^3/uL Absolute Monocytes 0.41 (0.1-0.8) 10^3/uL Absolute Eosinophils 0.02 (0.0-0.7) 10^3/uL Absolute Basophils 0.06 (0.0-0.2) 10^3/uL ESR 21 H (0-20) mm/hr VBG pH 7.33 (7.31-7.41) VBG pCO2 55 H (41-51) mmHg VBG pO2 22 mmHg VBG HCO3 29 H (23-28) mmol/L VBG Total CO2 26 (24-29) mmol/L VBG O2 Saturation 32 % VBG Base Excess 3 (-2-3) mmol/L VBG Lactate 1.6 H (0.6-1.4) mmol/L Sodium 142 141 (136-145) mmol/L Potassium 4.4 4.1 (3.5-5.1) mmol/L Chloride 105 101 (98-107) mmol/L Carbon Dioxide 28.5 24.6 (21.0-32.0) mmol/L Anion Gap 8.5 15.4 H (3-11) mmol/L BUN 21 H 20 H (7-18) mg/dL Creatinine 1.4 H 1.4 H (0.70-1.30) mg/dL Est GFR (CKD-EPI 2020) 58.26 58.26 (mL/min/1.73m2) Glucose 82 124 H (74-106) mg/dL Calcium 9.3 9.4 (8.5-10.1) mg/dL Magnesium 2.2 2.2 (1.8-2.4) mg/dL Total Bilirubin 0.56 0.65 (0.2-1.0) mg/dL AST 13 L 15 (15-37) U/L ALT 7 L 12 L (16-63) U/L Alkaline Phosphatase 84 98 (46-116) U/L Troponin I 15 (<or=76) ng/L C-Reactive Protein 1.01 H 1.27 H (<or=0.5) mg/dL NT-Pro-B Natriuret Pep 409 H (<300) pg/mL Total Protein 7.8 8.9 H (6.4-8.2) g/dL Albumin 3.5 4.0 (3.4-5.0) g/dL TSH 0.42 (0.36-3.74) uIU/mL Urine Color Yellow (Yellow) Urine Clarity Clear (Clear) Urine pH 5.5 (5-8) Ur Specific [place] 1.020 (1.005-1.025) Urine Protein 30 H (Neg-Trace) mg/dL Urine Ketones 40 H (Negative) mg/dL Urine Blood Negative (Negative) Urine Nitrite Negative (Negative) Urine Bilirubin Negative (Negative) Urine Urobilinogen 0.2 (Up to 0.2) mg/dL Ur Leukocyte Esterase Negative (Negative) Urine RBC Negative (0-2) HPF Urine WBC 0-2 (0-5) HPF Ur Epithelial Cells Negative (Negative) HPF Urine Crystals Negative (Negative) HPF Urine Bacteria Negative (Negative) HPF Urine Casts Negative (Negative) LPF Urine Mucus Negative (Negative) Ur Culture Indicated? No Urine Glucose Negative (Negative) mg/dL Urine Opiates Screen Negative (Negative) Ur Buprenorphine Pending Ur Norbuprenorphine Pending Urine EDDP (GC/MS) Pending Urine Methadone Screen Negative (Negative) Ur Methadone (GC/MS) Pending Urine Fentanyl Screen Pending Ur Barbiturates Screen Negative (Negative) Ur Tricyclics Screen Negative (Negative) Ur Amphetamines Screen Negative (Negative) U Benzodiazepines Scrn Negative (Negative) Urine Cocaine Screen Positive A (Negative) Ur THC Screen Positive A (Negative) Urine Xylazine Pending COVID-19 Source Nasal/Nares SARS-CoV-2 (PCR) Negative (Negative) 02/07/24 11:50 Blood Culture - Pending Blood 02/07/24 11:50 Blood Culture - Pending Blood 02/07/24 10:25 Blood Culture - Pending Blood 02/06/24 09:00 Blood Culture - Pending Blood [id number] Documentation Fingerstick Glucose Start: 02/06/24 22:31 Freq: Status: Complete Protocol: Activity Type Activity Date Activity User E-sign Co-sign Detail Recorded Client Recorded Date Recorded By Document 02/06/24 22:30 BKG DAEMON(5) [id number] 02/06/24 22:31 BKG DAEMON(6) Fingerstick Glucose Start: 02/07/24 04:00 Freq: .ACHS Status: Active Protocol: Activity Type Activity Date Activity User E-sign Co-sign Detail Recorded Client Recorded Date Recorded By Document 02/07/24 16:45 BKG DAEMON(7) NVT-BG05 02/07/24 16:45 BKG DAEMON(8) Intake and Output - 24 Hour Total 02/06/24 22:15 thru 02/07/24 13:48 Intake Total 340 Output Total 1425 Balance -1085 Weight 79.6 kg Intake: IV 100 Oral 240 Output: Urine 1425 Other: Urine Color Yellow Urine Appearance Clear Urine Odor None Falls Risk Assessment History of Falls No History 02/07/24 04:30 Contributing Factors No Factors,Unstable 12/18/24 04:30 Ambulatory Aids Independent 02/07/24 04:30 Tubes/Lines None 02/07/24 04:30 Gait Evaluation No gait disturbance 02/07/24 04:30 Cognition No cognitive impairment 02/07/24 04:30 Fall Total Score 3 02/07/24 04:30 Level of Risk Standard/Low Risk 02/07/24 04:30 Problems (Last Reviewed 02/07/24 @ 03:31 by Buzz Marcum) Cellulitis (Acute) Hypertension (Chronic) Bradycardia (Chronic) Cellulitis of right lower extremity (Acute) Obstructive sleep apnea (Chronic) COPD (chronic obstructive pulmonary disease) (Chronic) Opiate dependence (Chronic) v v v v v v v v v Sending and/or Receiving Nurses: Please use comment section below to note any information pertinent to the patient hand-off not included above. Information / Comments: Report received from: Lexii JACQUES
[2024-02-08] VITALS (7 sets, daily range): BP systolic 127–161; BP diastolic 80–93; PULSE 62–73; RESP 16–18; TEMP 36.3–37.1; O2SAT 93–97
[2024-02-08] MEDS: CLINDAMYCIN 600 MG/50 ML BAG 100 MG IVPB ×3 (02:03→17:48)
[2024-02-08 07:10] LABS: Abs Immature Grans 0.02 10^3/uL (0.0-0.06); Absolute Basophil Count 0.09 10^3/uL (0.0-0.2); Absolute Lymphocyte Count 1.88 10^3/uL (1.2-3.4); Absolute Monocyte Count 0.56 10^3/uL (0.1-0.8); Absolute Neutrophil Count 4.08 10^3/uL (1.2-6.7); Basophils % 1.3 %; Eosinophils % 2.9 %; HGB 12.8 g/dL (13.5-17.5); Immature Grans % 0.3 %; Lymphocytes % 27.5 %; MCH 26.9 pg (27.0-33.0); MCV 84 fL (80-95); MPV 9.6 fL (8.0-11.0); Monocytes % 8.2 %; Neutrophils % 59.8 %; Platelet Count 344 10^3/uL (130-400); RBC 4.75 10^6/uL (4.36-5.78); RDW 15.1 % (11.8-14.1); RDW-SD 46.5 fL; WBC 6.83 10^3/uL (4.4-10.8)
[2024-02-08 07:36] LABS: ALT 7 U/L (16-63); AST 10 U/L (15-37); Albumin 3.1 g/dL (3.4-5.0); Alkaline Phosphatase 67 U/L (46-116); Anion Gap 8.6 mmol/L (3-11); BUN 17 mg/dL (7-18); Bilirubin, Total 0.48 mg/dL (0.2-1.0); CO2 27.4 mmol/L (21.0-32.0); CREATININE 1.3 mg/dL (0.70-1.30); Calcium 8.8 mg/dL (8.5-10.1); Chloride 106 mmol/L (98-107); Estimated GFR 63.68 (mL/min/1.73m2); Glucose 79 mg/dL (74-106); Magnesium 1.9 mg/dL (1.8-2.4); Potassium 3.4 mmol/L (3.5-5.1); Sodium 142 mmol/L (136-145); TSH (W/Ref FT4) 0.49 uIU/mL (0.36-3.74); Total Protein 6.9 g/dL (6.4-8.2)
[2024-02-08 07:37] LABS: C-Reactive Protein < 0.50 mg/dL (<or=0.5)
[2024-02-08] MEDS: DULoxetine 30 MG CAP PO ×2 (08:02→20:22)
[2024-02-08] MEDS: Furosemide 40 MG TAB PO (08:02)
[2024-02-08] MEDS: Buprenorphine/Naloxone 4 mg/1 mg FILM 1 EACH SL (08:02)
[2024-02-08] MEDS: Cyanocobalamin 500 MCG TAB 1000 MCG PO (08:02)
[2024-02-08] MEDS: Esomeprazole 40 MG CAPCR PO (08:02)
[2024-02-08] MEDS: Aspirin 81 MG CHEW PO (08:02)
[2024-02-08] MEDS: Lisinopril 20 MG TAB 40 MG PO (08:02)
[2024-02-08] MEDS: amLODIPine 5 MG TAB 2.5 MG PO (08:03)
[2024-02-08] MEDS: Normal Saline Flush 10 ML SYR IVP ×2 (08:03→20:26)
[2024-02-08] MEDS: Gabapentin 600 MG TAB PO ×3 (08:03→20:22)
[2024-02-08] MEDS: Tiotropium/Olodaterol 10 PUFF INHALER 2 PUFF IH (08:34)
--- NOTE | 2024-02-08 09:52 | PDOC.CMPRO ---
Date of service: 02/08/24 Time of Service: 09:53 Care Management Progress Note Progress Note Text Progress Note Text: Mio was sitting up in a chair when CM met with him. He was pleasant and engaged easily with CM. Mio stated that he is feeling much better today. He was soaking his feet at the time of the visit as they had been noted to be quite soiled on the bottom. Mio explained that it is because he always walks around barefoot and the dirt doesn't come off easily. Mio remains afebrile, his blood pressure is lower and he is less bradycardic. Hopefully he will be ready for discharge in the next day or two. Discharge Potential Discharge Needs: PCP F/U Appt Anticipated Barriers to Discharge: None Identified Patient/Family Education Needs: Review discharge instructions, discuss Ask Me Three Transportation: Private vehicle Plan: Anticipate Mio will be discharged back to his caregiver's home when medically stable. He will follow up with his community providers and plan of care and transport via RCT coordinated by CM. CM will follow and continue to assess for discharge needs. SDOH(Care Management) Screening Will the Patient Participate in the Screening?: Yes Do you worry about having a steady place to live?: no Problems where you live: no known problems In the past 12 months, have you had to go without electric, gas, oil or water in your home?: no Have you or anyone in your house had to go without enough food to eat?: no Has lack of transportation kept you from medical appointments or from doing things needed for daily living?: no Has anyone in your support network made you feel unsafe for any reason?: no
[2024-02-08] MEDS: Enoxaparin 40 MG/0.4 ML SYR SC (10:56)
[2024-02-08 12:04] LABS: Fentanyl Scr w/Rfx Confirm Negative ng/mL (<1)
--- NOTE | 2024-02-08 12:44 | PGE_ITS ---
Date of Service Date of service: 02/08/24 Time of Service: 12:45 Assessment and Plan Assessment and plan (1) Cellulitis of right lower extremity: Start date: 02/07/24 Status: Acute Assessment and plan: This is a 58-year-old gentleman who has chronic skin changes of lower extremity with presentation to the ED stating that his legs are more painful than usual. He also states that they are more red and hot than usual. He was started on IV clindamycin which will be continued with wound care as needed. Long-term he should consider Unna boots but compliance is an issue. Blood cultures were performed. Patient may be at risk for self treatment with IV drug use but does not have an elevated WBC or evidence of recent use. He is status post attic valve replacement because of endocarditis. He is a full code. 02/07/24 PT states that his ble pain has improved. WIll cw abx at this point. Will consider BLE arterial usn if this hasn't been done before. Will also order echo 2/2 his history although I don't appreciate any murmurs 02/08/24 I have ordered an CAYDEN to evaluate for PAD. Per my discussion with radiology there is no arterial usn available at this institution (2) Hypertension: Status: Chronic Assessment and plan: Patient has hypertension with bradycardia but denies any previous cardiac dysrhythmia. He is not on anticoagulation. Continue his usual outpatient medical therapy with which he may not be compliant. Diltiazem will be held because of his bradycardia. Consider additional medical therapy but will not affect his heart rate. 02/07/24 PT current bp is 120/77 (3) Bradycardia: Status: Chronic Assessment and plan: Patient does have chronic bradycardia every time he is hospitalized. He is not symptomatic other than having generalized weakness which appears to be from a separate issue. He appears oversedated with slow respiratory rate as well. Monitor cardiac rhythm and rate and intervene only if symptomatic. Hold diltiazem and consider other antihypertensives that will not affect heart rate. 02/07/24 PT does have a long history of bradycardia. Exact etiology is unknonw. Would consider following up with EP but will leave to the discretion of the PCP. I will add a tsh and tick/lyme panel for completeness although would be suprised if these were contributors 02/08/24 Current blood pressure is 148/90, cw current medical management (4) Obstructive sleep apnea: Status: Chronic Assessment and plan: This should be evaluated and treated. Patient is a smoker should stop smoking. He is not hypoxic. (5) COPD (chronic obstructive pulmonary disease): Status: Chronic Assessment and plan: Patient has rhonchi with decreased respirations presently. Oversedated. Supportive care and continue outpatient maintenance medical therapy and rescue therapy as needed. Obtain chest x-ray with no imaging done in the ED. He has had no fever or change in sputum production. His WBC is not elevated. (6) Opiate dependence: Status: Chronic Assessment and plan: Patient is on Suboxone chronically with risk of self treating. He appears oversedated presently and urine drug screen with send outs for the usual street drugs will be obtained. Observation. (7) Chronic pain: Assessment and plan: Patient has generalized weakness present and cannot sit up in bed. He needs continued physical therapy and rehabilitation which may not happen at home alone. He is at risk for self treatment. (8) Cocaine abuse: Assessment and plan: Patient states he has not used drugs recently but urine drug screen will be sent with his appearance of both sedation and decreased respiratory rate. (9) Hepatitis C: Assessment and plan: Patient states that this problem has cleared. Follow liver functions. (10) Aortic valve endocarditis: Assessment and plan: Intact valve by echocardiogram done April 2023. Murmur not appreciated. 02/08/24 Echo has been done but not resulted (11) GERD (gastroesophageal reflux disease): Assessment and plan: Continue PPI. Subjective Subjective Interval history since last seen: No new complaints. POC d/w pt as well as with bedside nurse during MDR Exam Narrative Exam Narrative: General: Patient appears older than stated age, flattened affect with poor eye contact and appeared oversedated. He is snoring upon being approached but awakens easily. He is alert and oriented at least to person and place. He appears in no acute distress. HEENT: Normocephalic, eyes with pupils equal and reactive to light symmetrically, extraocular move intact and sclera anicteric. Or mucosa dry. Neck: Supple without JVD. Lungs: Bronchovesicular breath sound diffusely with rhonchi partially clearing with cough, no focalizing rales or crackles. Fair aeration. Heart: Bradycardic rate with normal rhythm. No appreciable murmur or gallop. (Patient is status post bioprosthetic aortic valve replacement). Abdomen: Scaphoid contour, soft and nontender to palpation with no palpable hepatosplenomegaly. Genitalia/rectal: Exam deferred. Extremities: Nonpitting edema both lower extremities with erythema and increased warmth to touch circumferentially over both legs worse on the right than left with dry ulcers and scabs on the right. No drainage. Skin is atrophic and shiny. There is loss of hair. Fair capillary refill. Skin: Skin changes lower legs as described, otherwise warm and moist. Normal color in all other areas of the skin palpated. Unkempt. Neuro: Cranial nerves II through XII gross intact, no focalized motor deficits and no tremor. Psych: Flattened affect with depressed mood. Patient appears oversedated. He is not delirious. No abnormal thought processes. Remote and recent memory appear grossly intact the patient is a very poor historian. He does not know his past medical history or medications as well as he should living alone. Objective Last Vital Signs Temp 36.5 C 02/08/24 11:05 Pulse 62 02/08/24 11:05 Resp 16 02/08/24 11:05 BP 161/87 H 02/08/24 11:05 Pulse Ox 93 02/08/24 11:05 Laboratory Results - last 24 hr 02/07/24 02/08/24 10:00 06:07 WBC 6.83 RBC 4.75 Hgb 12.8 L Hct 40.0 MCV 84 MCH 26.9 L MCHC 32.0 RDW 15.1 H Plt Count 344 MPV 9.6 Immature Gran % 0.3 Neutrophils % 59.8 Lymphocytes % 27.5 Monocytes % 8.2 Eosinophils % 2.9 Basophils % 1.3 Nucleated RBC % 0.0 Absolute Neutrophils 4.08 Absolute Lymphocytes 1.88 Absolute Monocytes 0.56 Absolute Eosinophils 0.20 Absolute Basophils 0.09 Sodium 142 Potassium 3.4 L D Chloride 106 Carbon Dioxide 27.4 Anion Gap 8.6 BUN 17 Creatinine 1.3 Est GFR (CKD-EPI 2020) 63.68 Glucose 79 Calcium 8.8 Magnesium 1.9 Total Bilirubin 0.48 AST 10 L ALT 7 L Alkaline Phosphatase 67 C-Reactive Protein < 0.50 Total Protein 6.9 Albumin 3.1 L TSH 0.49 Urine Color Yellow Urine Clarity Clear Urine pH 5.5 Ur Specific [place] 1.020 Urine Protein 30 H Urine Ketones 40 H Urine Blood Negative Urine Nitrite Negative Urine Bilirubin Negative Urine Urobilinogen 0.2 Ur Leukocyte Esterase Negative Urine RBC Negative Urine WBC 0-2 Ur Epithelial Cells Negative Urine Crystals Negative Urine Bacteria Negative Urine Casts Negative Urine Mucus Negative Ur Culture Indicated? No Urine Glucose Negative Urine Opiates Screen Negative Urine Methadone Screen Negative Ur Barbiturates Screen Negative Ur Tricyclics Screen Negative Ur Amphetamines Screen Negative U Benzodiazepines Scrn Negative Urine Cocaine Screen Positive A Ur THC Screen Positive A Time Spent with Patient Time Spent with Patient: 25-34 minutes Time was spent: preparing to see the patient(eg.review tests), obtaining and/or reviewing separately otained hiistory, ordering medications,tests, procedures, referring, communicating with other health customer care associate, indepentently interpreting results, counseling the patient and care coordination
[2024-02-08 13:33] LABS: Xylazine, Confirmation Urine Negative ng/mL (<50)
[2024-02-08] MEDS: Mometasone 220 MCG 14 DOSE INHALER 1 PUFF IH (19:04)
[2024-02-08] MEDS: Lactobacillus Acidophilus CAP 1 CAP PO (20:22)
[2024-02-08] MEDS: Potassium Chloride 20 MEQ TABCR PO (20:22)
[2024-02-09] MEDS: CLINDAMYCIN 600 MG/50 ML BAG 100 MG IVPB ×2 (02:25→09:52)
[2024-02-09] MEDS: Normal Saline Flush 10 ML SYR IVP ×2 (02:29→08:31)
[2024-02-09 03:38] VITALS: BP 150/90; PULSE 60; RESP 18; TEMP 36.6; O2SAT 94
[2024-02-09 06:44] LABS: HCT 40.4 % (40.0-50.0); HGB 13.2 g/dL (13.5-17.5); MCHC 32.7 % (32.0-36.0); MCV 83 fL (80-95); MPV 9.2 fL (8.0-11.0); Platelet Count 345 10^3/uL (130-400); RBC 4.88 10^6/uL (4.36-5.78); RDW 15.4 % (11.8-14.1); RDW-SD 46.7 fL; WBC 5.32 10^3/uL (4.4-10.8)
[2024-02-09 07:02] LABS: ALT 9 U/L (16-63); AST 7 U/L (15-37); Albumin 3.3 g/dL (3.4-5.0); Alkaline Phosphatase 67 U/L (46-116); Anion Gap 8.8 mmol/L (3-11); BUN 19 mg/dL (7-18); CO2 29.2 mmol/L (21.0-32.0); CREATININE 1.4 mg/dL (0.70-1.30); Chloride 103 mmol/L (98-107); Estimated GFR 58.26 (mL/min/1.73m2); Glucose 91 mg/dL (74-106); Magnesium 1.9 mg/dL (1.8-2.4); Potassium 3.5 mmol/L (3.5-5.1); Sodium 141 mmol/L (136-145); Total Protein 7.2 g/dL (6.4-8.2)
[2024-02-09] MEDS: Esomeprazole 40 MG CAPCR PO (07:47)
[2024-02-09 08:02] VITALS: BP 144/104; PULSE 63; RESP 18; TEMP 36.4; O2SAT 94
[2024-02-09] MEDS: Tiotropium/Olodaterol 10 PUFF INHALER 2 PUFF IH (08:07)
[2024-02-09] MEDS: Mometasone 220 MCG 14 DOSE INHALER 1 PUFF IH (08:07)
[2024-02-09] MEDS: Cyanocobalamin 500 MCG TAB 1000 MCG PO (08:24)
[2024-02-09] MEDS: Furosemide 40 MG TAB PO (08:24)
[2024-02-09] MEDS: Lactobacillus Acidophilus CAP 1 CAP PO ×2 (08:24→13:46)
[2024-02-09] MEDS: DULoxetine 30 MG CAP PO (08:24)
[2024-02-09] MEDS: Aspirin 81 MG CHEW PO (08:24)
[2024-02-09] MEDS: Lisinopril 20 MG TAB 40 MG PO (08:25)
[2024-02-09] MEDS: Gabapentin 600 MG TAB PO ×2 (08:25→13:46)
[2024-02-09] MEDS: amLODIPine 5 MG TAB 2.5 MG PO (08:25)
[2024-02-09] MEDS: Potassium Chloride 20 MEQ TABCR PO (08:25)
[2024-02-09] MEDS: Buprenorphine/Naloxone 4 mg/1 mg FILM 1 EACH SL (08:31)
[2024-02-09 09:10] VITALS: PULSE 63
--- NOTE | 2024-02-09 09:14 | PDOC.CMPRO ---
Date of service: 02/09/24 Time of Service: 09:14 Care Management Progress Note Discharge Potential Discharge Needs: PCP F/U Appt Anticipated Barriers to Discharge: None Identified Patient/Family Education Needs: Review discharge instructions, discuss Ask Me Three Transportation: Private vehicle Plan: Anticipate Mio will be discharged back to his caregiver's home when medically stable. He will follow up with his community providers and plan of care and transport via [facility] coordinated by CM. CM will follow and continue to assess for discharge needs. SDOH(Care Management) Screening Will the Patient Participate in the Screening?: Yes Do you worry about having a steady place to live?: no Problems where you live: no known problems In the past 12 months, have you had to go without electric, gas, oil or water in your home?: no Have you or anyone in your house had to go without enough food to eat?: no Has lack of transportation kept you from medical appointments or from doing things needed for daily living?: no Has anyone in your support network made you feel unsafe for any reason?: no
[2024-02-09 09:33] LABS: Lyme Ab w Rflx to Lyme Confirm Negative (Negative)
[2024-02-09] MEDS: Enoxaparin 40 MG/0.4 ML SYR SC (09:44)
[2024-02-09 11:38] VITALS: O2SAT 95
[2024-02-09 11:42] VITALS: BP 137/98; PULSE 61; RESP 15; TEMP 36; O2SAT 96
--- NOTE | 2024-02-09 13:39 | DSE_ITS ---
Date of service: 02/09/24 Time of Service: 13:39 DS: Diagnosis Discharge Diagnosis (1) Cellulitis of right lower extremity: Status: Acute (2) Hypertension: Status: Chronic (3) Bradycardia: Status: Chronic (4) Obstructive sleep apnea: Status: Chronic (5) COPD (chronic obstructive pulmonary disease): Status: Chronic (6) Opiate dependence: Status: Chronic (7) Chronic pain: (8) Cocaine abuse: (9) Hepatitis C: (10) Aortic valve endocarditis: (11) GERD (gastroesophageal reflux disease): Discharge Plan Disposition Patient Disposition: Home Condition: Stable Discharge Details Reason For Visit: Cellulitis, Sinus bradycardia Admit Date/Time: 02/07/24 02:06 Admit Provider: Buzz Marcum Attending Provider: Buzz Marcum Primary Care Provider: Evon Howard [facility] Course Hospital Course: Pt has a long history of venous stasis change and presented to the ED on 02/08/24 with s/s of cellulitis. Pt was initially treated with clindamycin which improved his symptoms. Of note, the pt was originally admitted to the ICU for concerns about bradycardia. Pt does have a lyme and tick titer pending that will need follow up in the outpatient setting for this. Pt will also need follow up in the outpatient setting for his echo reading which was ordered 2/2 history of endocarditis. I will discharge the pt on clindamycin for 7 more days Home Meds and New Rx's Prescriptions: New Lactobacillus acidophilus 500 million cell Capsule 500 mmu cells PO TID Qty: 30 0RF sulfamethoxazole-trimethoprim [Bactrim DS] 800-160 mg tablet 1 tab PO BID Qty: 14 0RF Continued esomeprazole magnesium [Nexium] 40 mg capsule,delayed release(DR/EC) 40 mg PO DAILY Trulicity 4.5 mg/0.5 mL pen injector 4.5 mg subcut QWEEK Patient Comments: takes on monday albuterol sulfate 90 mcg/actuation HFA aerosol inhaler 2 inh inhalation Q6H PRN aspirin 81 mg Tablet 81 mg PO DAILY duloxetine 30 mg Capsule,Delayed Release(Dr/Ec) 30 mg PO BID acetaminophen [Tylenol] 325 mg tablet 1,000 mg PO Q6H PRN Anoro Ellipta 62.5-25 mcg/actuation blister with device 1 ea INHALATION DAILY Patient Comments: INHALE ONE PUFF BY MOUTH EVERY DAY buprenorphine-naloxone [Suboxone] 4-1 mg film 1 film sublingual DAILY Patient Comments: PLACE ONE FILM UNDER THE TONGUE EVERY DAY cyanocobalamin (vitamin B-12) [Vitamin B-12] 1,000 mcg tablet 1,000 mcg PO DAILY lisinopril 40 mg tablet 40 mg PO DAILY Patient Comments: TAKE ONE TABLET BY MOUTH EVERY DAY Qvar RediHaler 80 mcg/actuation HFA aerosol breath activated 1 inh INHALATION BID PRN Patient Comments: INHALE ONE PUFF BY MOUTH TWICE A DAY NEEDED diltiazem HCl [Cardizem] 60 mg Tablet 60 mg PO BID Qty: 90 0RF furosemide [Lasix] 40 mg Tablet 40 mg PO DAILY Qty: 0 0RF amlodipine 2.5 mg tablet 2.5 mg PO DAILY Patient Comments: TAKE ONE TABLET BY MOUTH EVERY DAY gabapentin 600 mg tablet 600 mg PO TID Patient Comments: TAKE ONE TABLET BY MOUTH THREE TIMES A DAY Discharge Instructions Stand Alone Forms: Nursing Discharge Form Referrals: Evon Howard MD [Primary Care Provider] - 03/04/24 4:40 pm (Please arrive 10 minutes before appointment.) Activity:: Activity as Tolerated Equipment/Supplies:: No Equipment Needed Diet:: As Tolerated Discharge Orders Discharge Orders: Discharge Order (Routine); Ordered 02/09/24 Ordered By: Arya Palomares DS: Summary Time Spent with Patient providing and/or coordinating discharge services: Greater than 30 minutes Status at Discharge Functional status at discharge: independent ambulation Overall status at discharge: patient is back to baseline Mental Status: mental status grossly normal Speech and Movement: speech and movement normal Mood: congruent mood Affect: normal affect Quality:SDOH Health Related Social Needs: Health related social needs housing instability, house d, with risk of homelessness(Z59.811) Exam Narrative Exam Narrative: General: Patient appears older than stated age, flattened affect with poor eye contact and appeared oversedated. He is snoring upon being approached but awakens easily. He is alert and oriented at least to person and place. He appears in no acute distress. HEENT: Normocephalic, eyes with pupils equal and reactive to light symmetrically, extraocular move intact and sclera anicteric. Or mucosa dry. Neck: Supple without JVD. Lungs: Bronchovesicular breath sound diffusely with rhonchi partially clearing with cough, no focalizing rales or crackles. Fair aeration. Heart: Bradycardic rate with normal rhythm. No appreciable murmur or gallop. (Patient is status post bioprosthetic aortic valve replacement). Abdomen: Scaphoid contour, soft and nontender to palpation with no palpable hepatosplenomegaly. Genitalia/rectal: Exam deferred. Extremities: Nonpitting edema both lower extremities with erythema and increased warmth to touch circumferentially over both legs worse on the right than left with dry ulcers and scabs on the right. No drainage. Skin is atrophic and shiny. There is loss of hair. Fair capillary refill. Skin: Skin changes lower legs as described, otherwise warm and moist. Normal color in all other areas of the skin palpated. Unkempt. Neuro: Cranial nerves II through XII gross intact, no focalized motor deficits and no tremor. Psych: Flattened affect with depressed mood. Patient appears oversedated. He is not delirious. No abnormal thought processes. Remote and recent memory appear grossly intact the patient is a very poor historian. He does not know his past medical history or medications as well as he should living alone. Psych Mental Status: mental status grossly normal Speech and Movement: speech and movement normal Mood: congruent mood Affect: normal affect DS: Data Vitals/I&O Vitals and I&O: Vital Signs Temperature 36.0 C L 02/09/24 11:42 Temperature Source Temporal Artery Scan 02/09/24 11:42 Pulse 61 02/09/24 11:42 Pulse 67 02/08/24 12:58 Respiratory Rate 15 02/09/24 11:42 Respiratory Effort Normal 02/07/24 04:30 Respiratory Depth Normal 02/07/24 04:30 Respiratory Pattern Normal 02/07/24 04:30 Blood Pressure 137/98 H 02/09/24 11:42 Blood Pressure Mean 98 02/07/24 17:01 Blood Pressure Position Supine 02/07/24 03:39 Pulse Oximetry 96 02/09/24 11:42 Oxygen Delivery Method Room Air 02/09/24 11:42 Oxygen Flow Rate 0 02/09/24 11:42 Pain Level 0 02/09/24 11:42 Comment RN notified of bp 02/09/24 11:42 Intake & Output 02/08/24 02/09/24 02/09/24 23:59 11:59 23:59 Intake Total 50 / 150 600 / 780 180 / 780 Output Total 1000 / 1650 1000 / 1000 Balance -950 / -1500 -400 / -220 180 / -220 Weight 75 kg Intake: IV 50 / 150 120 / 120 Oral 480 / 660 180 / 660 Output: Urine 1000 / 1650 1000 / 1000 Other: Urine Color Yellow Yellow Urine Appearance Clear Clear Urine Odor Normal Stool Size Moderate Stool Characteristics Formed Data Completed and Pending Labs on day of discharge: Labs from last 24 hours 02/09/24 02/08/24 02/07/24 06:26 06:07 10:00 WBC 5.32 RBC 4.88 Hgb 13.2 L Hct 40.4 MCV 83 MCH 27.0 MCHC 32.7 RDW 15.4 H Plt Count 345 MPV 9.2 Sodium 141 Potassium 3.5 Chloride 103 Carbon Dioxide 29.2 Anion Gap 8.8 BUN 19 H Creatinine 1.4 H Est GFR (CKD-EPI 2020) 58.26 Glucose 91 Calcium 9.0 Magnesium 1.9 Total Bilirubin 0.40 AST 7 L ALT 9 L Alkaline Phosphatase 67 Total Protein 7.2 Albumin 3.3 L Urine Xylazine Negative Lyme Disease Antibody Negative Preliminary micro results at discharge 02/07/24 10:25 Blood Culture - Preliminary Blood NO GROWTH 48 HOURS 02/06/24 09:00 Blood Culture - Preliminary Blood NO GROWTH 48 HOURS PFSH All Active Problems (Updated 02/07/24 @ 04:05 by Buzz Marcum) Cellulitis (Acute) Hypertension (Chronic) Bradycardia (Chronic) Cellulitis of right lower extremity (Acute) Sepsis (Acute) Abnormal CT scan, kidney (Acute) Elevated white blood cell count (Acute) Congestive heart failure (CHF) (Chronic) Chronic venous insufficiency (Acute) COVID-19 (Acute) COVID (Acute) Obstructive sleep apnea (Chronic) COPD (chronic obstructive pulmonary disease) (Chronic) Anxiety (Chronic) Leg wound, left (Acute) Medical non-compliance (Acute) Dysphagia (Acute) Dyspnea (Acute) Dyspepsia (Acute) Discharge planning issues (Acute) DVT (deep venous thrombosis) (Chronic) Pneumonia (Acute) Aragon esophagus (Acute) Diabetic neuropathy (Acute) Traumatic hematoma of right upper arm (Acute) Likely due to trauma sustained in the ambulance Anemia due to acute blood loss (Acute) Symptomatic anemia (Acute) 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) (Acute) Opiate dependence (Chronic) managed on suboxone Hypertension (Chronic) Discharge planning issues (Acute) Aortic insufficiency (Acute) s/p valve replacement Diabetes mellitus (Chronic) Acute anemia (Acute) Medical History Cocaine abuse Hypertensive emergency 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 Displaced bimalleolar fracture of left ankle s/p infection of wound Tinea corporis Chronic pain Depression Right rotator cuff tear Aortic valve endocarditis MSSA (methicillin susceptible Staphylococcus aureus) septicemia Hepatitis C GERD (gastroesophageal reflux disease) Surgical History S/P endoscopy H/O aortic valve replacement [place] [facility] [place] Magna Ease 25 mm S/P hardware removal L ankle. S/P percutaneous endoscopic gastrostomy (PEG) tube placement History of ankle surgery S/P spinal surgery Family History Father No problems noted. Mother COPD (chronic obstructive pulmonary disease) Hypertension Diabetes Heart disease Sister Stroke Social History Smoking/Tobacco Use Status: Current every day Tobacco Type: cigarettes Smoking risk assessment performed?: Yes Alcohol Intake: never Drug use: Daily Substance use type: marijuana and crack/cocaine Details: cocaine binge the last 2 days 09/29/23, on suboxone, last dose yesterday Caregiver/Support person: Yes Household members: friend(s) Housing: house Number of Children: 0 number of grandchildren: 1 current occupation: Disabled Pets and animals: Yes Pets and animals: cat(s) Current gender identity: male What type of physical activity do you participate in: none Do you feel safe at home: Yes Do you feel safe in your relationship?: Yes Additional Social history: Lives with ex- Vanessa, who is his caregiver. Lives in private home. Time Spent with Patient Time Spent with Patient: 45-69 minutes Time was spent: preparing to see the patient(eg.review tests), obtaining and/or reviewing separately otained hiistory, ordering medications,tests, procedures, referring, communicating with other health rental boats caretaker, indepentently interpreting results, counseling the patient and care coordination
[2024-02-09 13:56] VITALS: BP 149/85; PULSE 74; RESP 18; TEMP 36.3; O2SAT 95
--- NOTE | 2024-02-09 14:17 | CMDISCH_ITS ---
Date of service: 02/09/24 Time of Service: 14:17 LACE Index Scoring Tool Questions: Length of Stay (in days): 2 Was the patient admitted via the E.D.?: Yes Comorbidities: Cerebrovascular Disease, PVD, Diabetes w/o Complication, Congestive Heart Failure, Chronic Pulmonary Disease and Liver or Renal Disease E.D. Visits: 7 Answers: Total Score: 14 Risk of Readmission: High Risk Care Management Discharge Plan Reason for Hospitalization: cellulitis Discharge Plan: Mio will be discharged home with no new services. He will follow up with his PCP and plan of care and transport via [facility] coordinated by CM. Patient/Family Education Needs: review of discharge instructions, limitations, follow up plan, discuss Ask Me Three Services Needed at Discharge: Transportation SDOH Health Related Social Needs: Health related social needs housing instability, house d, with risk of homelessness(Z59.811)
--- NOTE | 2024-02-09 15:31 | CHAPLAIN ---
Mio was resting in bed when I visited. He lives in a [facility] home. I explained my role and offered support. He said he expects to be discharged later today.
[2024-02-10 16:20] LABS: Buprenorphine 137.8 ng/mL (Cutoff: 5.0)
[2024-02-11 14:29] LABS: Anaplasma phagocytophilum Negative (Negative); B. miyamotoi PCR Negative (Negative); Babesia divergens/MO-1 Negative (Negative); Babesia duncani Negative (Negative); Babesia microti Negative (Negative); Ehrlichia chaffeensis Negative (Negative); Ehrlichia ewingii/canis Negative (Negative); Ehrlichia muris eauclairensis Negative (Negative)
[2024-02-15 01:44] LABS: EDDP-by GC-MS Negative; Methadone Interpretation Negative.; Methadone-by GC-MS Negative
== END 2024-02-09 16:14 | disposition home or self-care (01) ==
LOC: ER 02-07 02:38 → ICU 02-07 05:37 → MS 02-09 13:22 → ICU 02-11 17:33 → MS 02-11 17:34
PROVIDERS: Hospitalist; Admitting Provider Family Medicine; Emergency Provider Student in an Organized Health Care Education/Training Program; PCP Family Medicine; Visit Provider Family Medicine
DX: L03.115 Cellulitis of right lower limb (principal); R00.1 Bradycardia, unspecified; G47.33 Obstructive sleep apnea (adult) (pediatric); F11.20 Opioid dependence, uncomplicated; F14.10 Cocaine abuse, uncomplicated; B18.2 Chronic viral hepatitis C; K21.9 Gastro-esophageal reflux disease without esophagitis; G89.29 Other chronic pain; Z95.4 Presence of other heart-valve replacement; J44.9 Chronic obstructive pulmonary disease, unspecified; R53.1 Weakness; R60.0 Localized edema; F17.210 Nicotine dependence, cigarettes, uncomplicated; I87.8 Other specified disorders of veins; D72.829 Elevated white blood cell count, unspecified; I11.0 Hypertensive heart disease with heart failure; I50.9 Heart failure, unspecified; E11.42 Type 2 diabetes mellitus with diabetic polyneuropathy; Z91.199 Patient's noncompliance with other medical treatment and regimen due to unspecified reason; I69.354 Hemiplegia and hemiparesis following cerebral infarction affecting left non-dominant side; Z86.718 Personal history of other venous thrombosis and embolism
CPT/HCPCS: 00123; 36415; 36416; 80053; 80307; 80348; 80375; 82805; 82962; 85027; 85652; 87040; 87635; 87798; 93005; 94640; 96365; 96366; 96372; 96375; 99285; J1650; 71045; 80358; 81003; 81015; 83605; 83735; 83880; 84443; 84484; 85025; 86140; 86618; 93010; 93306; 94664; 94760; 99223; 99231; 99239; G0378; J0737; J1815; J2405

== ENCOUNTER 2024-04-07 22:13 | Emergency (ER) | payer MEDICAID, SELFPAY ==
[2024-04-07] VITALS (19 sets, daily range): BP systolic 189–209; BP diastolic 82–93; PULSE 39–53; RESP 7–20; O2SAT 92–98
--- NOTE | 2024-04-07 00:04 | DI.RAD_ITS ---
Exam(s) XR CHEST 2V PA LATERAL EXAM: XR CHEST 2V PA LATERAL CLINICAL HISTORY: CP/SOB TECHNIQUE: 2D digital imaging was performed of the chest. Two images were obtained. PA and lateral views were obtained. COMPARISON: CR XR CHEST 2V PA LATERAL from 10/11/2023 CR XR PORTABLE CHEST AP from 02/07/2024 FINDINGS: MEDIASTINUM: Normal. HEART: Normal. There is an aortic valve prosthesis. PULMONARY VASCULATURE: Normal. LUNGS: Clear. PLEURAL SPACE: No pleural effusion or pneumothorax. BONE:Within normal limits for the patient's age. Sternal wires are in place. OTHER FINDINGS:Normal. IMPRESSION: No acute pulmonary findings. DATA REPOSITORY: RADIATION DOSE DELIVERED:
--- NOTE | 2024-04-07 22:00 | RT.EKG_ITS ---
APPROVED REPORT Exam: Resting ECG Reason for Exam: chest pain, SOB Patient Location: E HR:49 bpm ECG Measurements Heart Rate 49 AXIS OR 171 P 27 QRSd 140 QRS 11 QT 481 T -39 QTc 433 Conclusion Sinus bradycardia...rate< 60 Right bundle branch block...QRSd>120, terminal axis(90,270) Abnormal T, consider ischemia, inferior leads...T <-0.20mV, II III aVF While the RBBB and bradycardia are old, the inverted inferior T waves are new. There are no reciproc al changes noted.
--- NOTE | 2024-04-07 22:14 | ED.GENADUL_ITS ---
Discharge Plan Disposition Patient Disposition: Home Condition: Stable Discharge Details Clinical Impression: Chest pain, Dyspnea, Medical non-compliance Primary Care Provider: Evon Howard ED Provider: Arya Lei [place] Meds and New Rx's Prescriptions: New prednisone 20 mg tablet 40 mg PO DAILY Qty: 8 0RF azithromycin 250 mg tablet 250 mg PO DAILY 4 Days Qty: 4 0RF Rx Instructions: start on day 2 of therapy Continued esomeprazole magnesium [Nexium] 40 mg capsule,delayed release(DR/EC) 40 mg PO DAILY Trulicity 4.5 mg/0.5 mL pen injector 4.5 mg subcut QWEEK Patient Comments: takes on monday albuterol sulfate 90 mcg/actuation HFA aerosol inhaler 2 inh inhalation Q6H PRN aspirin 81 mg Tablet 81 mg PO DAILY duloxetine 30 mg Capsule,Delayed Release(Dr/Ec) 30 mg PO BID acetaminophen [Tylenol] 325 mg tablet 1,000 mg PO Q6H PRN Anoro Ellipta 62.5-25 mcg/actuation blister with device 1 ea INHALATION DAILY Patient Comments: INHALE ONE PUFF BY MOUTH EVERY DAY buprenorphine-naloxone [Suboxone] 4-1 mg film 1 film sublingual DAILY Patient Comments: PLACE ONE FILM UNDER THE TONGUE EVERY DAY cyanocobalamin (vitamin B-12) [Vitamin B-12] 1,000 mcg tablet 1,000 mcg PO DAILY Qvar RediHaler 80 mcg/actuation HFA aerosol breath activated 1 inh INHALATION BID PRN Patient Comments: INHALE ONE PUFF BY MOUTH TWICE A DAY NEEDED diltiazem HCl [Cardizem] 60 mg Tablet 60 mg PO BID Qty: 90 0RF furosemide [Lasix] 40 mg Tablet 40 mg PO DAILY Qty: 0 0RF amlodipine 2.5 mg tablet 2.5 mg PO DAILY Patient Comments: TAKE ONE TABLET BY MOUTH EVERY DAY gabapentin 600 mg tablet 600 mg PO TID Patient Comments: TAKE ONE TABLET BY MOUTH THREE TIMES A DAY Lactobacillus acidophilus 500 million cell Capsule 500 mmu cells PO TID Qty: 30 0RF Discharge Instructions Instructions: Chest Pain, Adult ED, Shortness of Breath, Adult ED Additional Instructions: You were seen in the ED for chest pain and shortness of breath. Overall your workup is completely reassuring. Urine drug screen is positive for cocaine which I suspect is the cause of your symptoms. However, he did have diffuse w heezing and a history of COPD so we will cover you with steroids and antibiotic. You should continue your inhalers and previous medications as previously ordered. Use your albuterol rescue inhaler 2 puffs every 4-6 hours as needed. Avoid cocaine or other street drugs in the future. Follow-up with primary care this coming week. Return to ED for new or worsening chest pain shortness of breath, fever, neurologic change, other concerns. Referrals: Evon Howard MD [Primary Care Provider] - [facility] General Mode of arrival: EMS . Date/Time Provider Initiated Documentation: 04/07/24 22:14 . Limitations to Documentation: no limitations . Information obtained by: patient, RN notes reviewed and old records reviewed . HPI Narrative: Patient presents to ED by ambulance with chest pain or shortness of breath for the last couple of days. He reports not feeling well at all. Chest pain is central in nature comes and goes lasting minutes at a time. He did receive aspirin en route by ambulance but declined nitroglycerin. Denies any fever or cough that he is aware of. Shortness of breath has been persistent since it started. Denies any abdominal pain but has been vomiting. Has prior history of DVT, endocarditis status post aortic valve replacement, intermittent cocaine abuse, opioid dependence on Suboxone. Chest pain is not pleuritic in nature. Does not radiate anywhere. Seems rather nondescript and he does not describe it well. Related Data Home Medications ?Medication ?Instructions ?Recorded ?Confirmed esomeprazole magnesium 40 mg 40 mg PO DAILY 05/05/20 04/07/24 capsule,delayed release (Nexium) aspirin 81 mg tablet 81 mg PO DAILY 08/03/20 04/07/24 duloxetine 30 mg capsule,delayed 30 mg PO BID 08/03/20 04/07/24 release acetaminophen 325 mg tablet 1,000 mg PO Q6H PRN 09/27/20 04/07/24 (Tylenol) umeclidinium 62.5 mcg-vilanterol 1 ea inhalation DAILY 09/27/20 04/07/24 25 mcg/actuation powdr for inhalation (Anoro Ellipta) buprenorphine 4 mg-naloxone 1 mg 1 film sublingual DAILY 09/28/20 04/07/24 sublingual film (Suboxone) albuterol sulfate 90 mcg/actuation 2 inh inhalation Q6H PRN 04/12/22 04/07/24 aerosol inhaler dulaglutide 4.5 mg/0.5 mL 4.5 mg subcut QWEEK 04/12/22 04/07/24 subcutaneous pen injector (Trulicity) cyanocobalamin (vitamin B-12) 1,000 mcg PO DAILY 03/06/23 04/07/24 1,000 mcg tablet (Vitamin B-12) amlodipine 2.5 mg tablet 2.5 mg PO DAILY 09/30/23 04/07/24 gabapentin 600 mg tablet 600 mg PO TID 09/30/23 04/07/24 beclomethasone dipropionate 80 1 inh inhalation BID PRN 12/27/23 04/07/24 mcg/actuation HFA breath activated aerosol (Qvar RediHaler) diltiazem HCl 60 mg tablet 60 mg PO BID #90 tabs 12/29/23 04/07/24 (Cardizem) furosemide 40 mg tablet (Lasix) 40 mg PO DAILY #0 tabs 12/29/23 04/07/24 Lactobacillus acidophilus 500 500 mmu cells PO TID #30 caps 02/09/24 04/07/24 million cell capsule azithromycin 250 mg tablet 250 mg PO DAILY 4 days #4 tabs 04/08/24 prednisone 20 mg tablet 40 mg (2 x 20 mg) PO DAILY #8 tabs 04/08/24 Previous Rx's ?Medication ?Instructions ?Recorded diltiazem HCl 60 mg tablet 60 mg PO BID #90 tabs 12/29/23 (Cardizem) furosemide 40 mg tablet (Lasix) 40 mg PO DAILY #0 tabs 12/29/23 Lactobacillus acidophilus 500 500 mmu cells PO TID #30 caps 02/09/24 million cell capsule azithromycin 250 mg tablet 250 mg PO DAILY 4 days #4 tabs 04/08/24 prednisone 20 mg tablet 40 mg (2 x 20 mg) PO DAILY #8 tabs 04/08/24 Allergies Allergy/AdvReac Type Severity Reaction Status Date / Time Penicillins AdvReac Severe Vomiting Verified 12/25/23 17:47 hydrocodone AdvReac Intermediate vomiting Verified 12/25/23 17:47 General LILLIAN: 3 Review of Systems Narrative: Per HPI Exam Narrative Exam Narrative: Const: WDWN male in NAD. VS per triage. HEENT: NC/AT. Normal facial exam. Dry MM. Neck: Supple. Trachea midline. Lungs: Normal respiratory effort. Lungs with scattered wheezing throughout. Cor: Bradycardic but regular without murmur. Good radial pulses. GI: Soft/ND/NT. Neuro: A+O x 3. Normal speech. Cranial nerves II - XII grossly intact. Some residual right side weakness from prior CVA. Ext: Venous stasis changes in bilateral lower extremity swelling which appears baseline. No warmth or erythema to speak of. Medical Decision Making Patient is a 58-year-old man with history of hypertension and diabetes as well as intermittent cocaine abuse and opioid dependence on Suboxone presenting to ED with 2 to 3-day history of feeling unwell, intermittent central chest pain that is not pleuritic or radiating, persistent shortness of breath but no cough or fever. Has been vomiting but denies abdominal pain. Denies recent cocaine use. Exam notable for dry mucous membranes, significant bradycardia which has been present previously, some scattered wheezing on lung exam. He has an old right bundle branch block. He has new inverted T waves on his inferior limb leads which have not been present previously. He has no reciprocal changes and no ST elevation or depression anywhere. He received aspirin en route. He declined nitroglycerin and is reporting chest pain is intermittent not constant or persistent. Second IV established here and laboratory studies sent. DuoNeb ordered. Nasal swab, urine and urine drug screen also ordered. Chest imaging will be based upon D-dimer results. 23:30 - Patient's labs are unremarkable. No significant electrolyte abnormalities, negative troponin and D-dimer, normal white count. Will obtain chest x-ray given the normal D-dimer, repeat troponin x 1 given the EKG changes, nasal swab and urine still pending. 01:00 - Patient's repeat troponin remains flat. Repeat EKG now shows typical right bundle branch with normal T waves. Possible limb lead reversal on previous. Chest x-ray per my read and per preliminary radiology read with no acute process. Urinalysis negative. Urine drug screen positive for cocaine. Blood pressure has been elevated here. Suspect symptoms may be related to cocaine use though he denies it, stating he does not think he used it recently. Possibly symptoms related to COPD exacerbation given his wheezing. His nasal swab is negative. I will give him a short course of prednisone as well as azithromycin for possible atypical. Encouraged to avoid cocaine in the future. Blood pressure is high here, patient reporting he does not remember the last time he took his medications. Continue previous medications especially his inhalers. Follow-up with primary care this week. Return precautions provided. Differential Diagnosis Differential Diagnosis: ACS, pneumonia, PE, viral illness, GERD; not consistent w dissection or PTX Medical Records Medical records reviewed: Yes I reviewed the patient's medical records. Medical records narrative: Previous hospital admissions, outpatient studies over the last year. Imaging Data Radiologic Study: Attestation: I personally reviewed and interpreted this imaging study as follows: Imaging: X-Ray My impression: Chest x-ray with no acute process Lab Data Lab results reviewed: Yes I reviewed the patient's lab results. Lab results narrative: See MDM ECG Data Attestation: I personally reviewed and interpreted this ECG (s) as follows: Prior ECG tracings: available for review Interpretation: See MDM/EKG [facility] All Active Problems (Updated 04/08/24 @ 01:04 by Arya Lei MD) Dyspnea (Acute) Chest pain (Acute) Right rotator cuff tear (Acute) Abnormal CT scan, kidney (Acute) Anxiety (Chronic) Medical non-compliance (Acute) Aragon esophagus (Acute) Opiate dependence (Chronic) managed on suboxone Medical History Obstructive sleep apnea Chronic venous insufficiency COPD (chronic obstructive pulmonary disease) Diabetic neuropathy Hx of deep venous thrombosis on Coumadin Diabetes mellitus Hypertension Cocaine abuse 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 S/P percutaneous endoscopic gastrostomy (PEG) tube placement History of ankle surgery S/P spinal surgery Family History Father No problems noted. Mother COPD (chronic obstructive pulmonary disease) Hypertension Diabetes Heart disease Sister Stroke Social History Smoking/Tobacco Use Status: Current every day Tobacco Type: cigarettes Smoking risk assessment performed?: Yes Alcohol Intake: never Drug use: Daily Substance use type: marijuana and crack/cocaine Caregiver/Support person: Yes Household members: friend(s) Housing: house Number of Children: 0 number of grandchildren: 1 current occupation: Disabled Pets and animals: Yes Pets and animals: cat(s) Current gender identity: male What type of physical activity do you participate in: none Do you feel safe at home: Yes Do you feel safe in your relationship?: Yes Additional Social history: Lives with ex- Vanessa, who is his caregiver. Lives in private home.
[2024-04-07 22:52] LABS: ALT 19 U/L (16-63); AST 10 U/L (15-37); Albumin 3.7 g/dL (3.4-5.0); Alkaline Phosphatase 72 U/L (46-116); Anion Gap 5.6 mmol/L (3-11); BUN 29 mg/dL (7-18); Bilirubin, Total 0.31 mg/dL (0.2-1.0); CO2 30.4 mmol/L (21.0-32.0); CREATININE 1.1 mg/dL (0.70-1.30); Calcium 9.6 mg/dL (8.5-10.1); Chloride 105 mmol/L (98-107); Estimated GFR 77.81 (mL/min/1.73m2); Glucose 115 mg/dL (74-106); Lipase 28 U/L (<78); Magnesium 2.1 mg/dL (1.8-2.4); Potassium 4.1 mmol/L (3.5-5.1); Sodium 141 mmol/L (136-145); Total Protein 7.7 g/dL (6.4-8.2); Troponin I 12 ng/L (<or=76)
[2024-04-07 22:52] LABS: Abs Immature Grans 0.02 10^3/uL (0.0-0.06); Absolute Basophil Count 0.07 10^3/uL (0.0-0.2); Absolute Eosinophil Count 0.15 10^3/uL (0.0-0.7); Absolute Lymphocyte Count 1.84 10^3/uL (1.2-3.4); Absolute Monocyte Count 0.73 10^3/uL (0.1-0.8); Absolute Neutrophil Count 6.33 10^3/uL (1.2-6.7); Basophils % 0.8 %; Eosinophils % 1.6 %; HCT 41.2 % (40.0-50.0); HGB 13.1 g/dL (13.5-17.5); Immature Grans % 0.2 %; Lymphocytes % 20.1 %; MCHC 31.8 % (32.0-36.0); MCV 85 fL (80-95); MPV 9.1 fL (8.0-11.0); Neutrophils % 69.3 %; Platelet Count 293 10^3/uL (130-400); RBC 4.86 10^6/uL (4.36-5.78); RDW 14.9 % (11.8-14.1); RDW-SD 46.1 fL; WBC 9.14 10^3/uL (4.4-10.8)
[2024-04-07 23:19] LABS: D-Dimer 297 ng/mlFEU (<500)
[2024-04-07] MEDS: Albuterol/Ipratropium 3 ML UPD VIAL UPD (23:22)
[2024-04-07] MEDS: Lactated Ringers 1,000 ML 125 ML IV (23:29)
[2024-04-07 23:55] LABS: COVID-19 PCR Negative (Negative); Influenza A PCR Negative (Negative); Influenza B PCR Negative (Negative); RSV PCR Negative (Negative)
[2024-04-07 23:56] LABS: Source Nasopharynx
[2024-04-08] VITALS (8 sets, daily range): BP systolic 202–210; BP diastolic 64–95; PULSE 42–50; RESP 7–16; TEMP 36.8; O2SAT 96–99
--- NOTE | 2024-04-08 00:19 | DI.VRAD_ITS ---
PROCEDURE INFORMATION: Exam: XR Chest Exam date and time: 04/07/2024 11:53 PM Age: 58 years old Clinical indication: Pain; Shortness of breath; Chest pressure; Prior surgery; Surgery date: 6+ months; Surgery type: Aortic vanna replacement; Cp/sob TECHNIQUE: Imaging protocol: Radiologic exam of the chest. Views: 2 views. COMPARISON: CR XR PORTABLE CHEST AP 02/07/2024 10:05 AM FINDINGS: Lungs: Unremarkable. No consolidation. Pleural spaces: Unremarkable. No pleural effusion. No pneumothorax. Heart/Mediastinum: Prosthetic aortic valve in place. No cardiomegaly. Bones/joints: Sternotomy wires remain in place. Bones appear unremarkable. IMPRESSION: No acute disease Dictated and Authenticated by: Dayne Rao MD. Orderin Quique Koenig MD
[2024-04-08 00:24] LABS: Troponin I 13 ng/L (<or=76)
--- NOTE | 2024-04-08 00:30 | RT.EKG_ITS ---
APPROVED REPORT Exam: Resting ECG Reason for Exam: CP Patient Location: E HR:38 bpm ECG Measurements Heart Rate 38 AXIS OK 167 P 18 QRSd 138 QRS 67 QT 482 T 91 QTc 382 Conclusion Bradycardia with irregular rate...V-rate 32- 45, mean < 60 Right bundle branch block...QRSd>120, terminal axis(90,270) Nonspecific T abnormalities, lateral leads...T <-0.10mV, I aVL V5 V6 There are no significant changes compared to prior EKG performed on 02/06/2024 at 23:20. T wave inversion from earlier tonight now not present. EKG looks same as prior. Possible limb lead reversal on EKG from 04/07/2024
[2024-04-08 00:37] LABS: Bilirubin Negative (Negative); Blood Negative (Negative); Clarity Clear (Clear); Glucose Negative (Negative); Ketones Negative (Negative); Leukocyte Esterase Negative (Negative); Nitrite Negative (Negative); Urobilinogen 0.2 mg/dL (Up to 0.2); pH 7.5 (5-8)
[2024-04-08 00:42] LABS: Bacteria Moderate HPF (Negative); C & S Indicated? No; Casts Negative LPF (Negative); Crystals Few Amorphous HPF (Negative); Epithelial Cells Negative HPF (Negative); Mucus Negative (Negative); RBC 0-2 HPF (0-2); WBC 0-2 HPF (0-5)
[2024-04-08 00:50] LABS: *AMPHETAMINES SCREEN URINE Negative (Negative); *BARBITURATES SCREEN URINE Negative (Negative); *BENZODIAZEPINES SCREEN URINE Negative (Negative); Cannabinoids THC Positive (Negative); Cocaine Screen,Urine Positive (Negative); METHADONE URINE SCREEN Negative (Negative); OPIATES URINE SCREEN Negative (Negative)
[2024-04-08 00:57] LABS: Tricyclic Antidepressants Negative (Negative)
[2024-04-08] MEDS: predniSONE 20 MG TAB 40 MG PO (01:09)
[2024-04-08] MEDS: Azithromycin 250 MG TAB 500 MG PO (01:09)
== END 2024-04-08 01:25 | disposition home or self-care (01) ==
PROVIDERS: Emergency Provider Emergency Medicine; PCP Family Medicine
DX: R07.9 Chest pain, unspecified (principal); R06.09 Other forms of dyspnea; R06.02 Shortness of breath; F14.90 Cocaine use, unspecified, uncomplicated; R06.2 Wheezing; I10 Essential (primary) hypertension; E11.69 Type 2 diabetes mellitus with other specified complication; R00.1 Bradycardia, unspecified
CPT/HCPCS: 80053; 80307; 83690; 87637; 93005; 99285; 71046; 81003; 81015; 83735; 84484; 85025; 85379; 93010; J7512; J7620

== ENCOUNTER 2024-04-08 05:45 | Emergency (ER) | payer MEDICAID, SELFPAY ==
[2024-04-08 05:48] VITALS: BP 170/100; PULSE 80; RESP 16; TEMP 36.7; O2SAT 98
--- NOTE | 2024-04-08 05:51 | ED.GENADUL_ITS ---
Discharge Plan Disposition Patient Disposition: Home Condition: Stable Discharge Details Clinical Impression: Bilateral edema of lower extremity Primary Care Provider: Evon Howard ED Provider: Arya Lei Meds and New Rx's Prescriptions: Continued esomeprazole magnesium [Nexium] 40 mg capsule,delayed release(DR/EC) 40 mg PO DAILY Trulicity 4.5 mg/0.5 mL pen injector 4.5 mg subcut QWEEK Patient Comments: takes on monday albuterol sulfate 90 mcg/actuation HFA aerosol inhaler 2 inh inhalation Q6H PRN aspirin 81 mg Tablet 81 mg PO DAILY duloxetine 30 mg Capsule,Delayed Release(Dr/Ec) 30 mg PO BID acetaminophen [Tylenol] 325 mg tablet 1,000 mg PO Q6H PRN Anoro Ellipta 62.5-25 mcg/actuation blister with device 1 ea INHALATION DAILY Patient Comments: INHALE ONE PUFF BY MOUTH EVERY DAY buprenorphine-naloxone [Suboxone] 4-1 mg film 1 film sublingual DAILY Patient Comments: PLACE ONE FILM UNDER THE TONGUE EVERY DAY cyanocobalamin (vitamin B-12) [Vitamin B-12] 1,000 mcg tablet 1,000 mcg PO DAILY Qvar RediHaler 80 mcg/actuation HFA aerosol breath activated 1 inh INHALATION BID PRN Patient Comments: INHALE ONE PUFF BY MOUTH TWICE A DAY NEEDED diltiazem HCl [Cardizem] 60 mg Tablet 60 mg PO BID Qty: 90 0RF furosemide [Lasix] 40 mg Tablet 40 mg PO DAILY Qty: 0 0RF prednisone 20 mg tablet 40 mg PO DAILY Qty: 8 0RF azithromycin 250 mg tablet 250 mg PO DAILY 4 Days Qty: 4 0RF Rx Instructions: start on day 2 of therapy amlodipine 2.5 mg tablet 2.5 mg PO DAILY Patient Comments: TAKE ONE TABLET BY MOUTH EVERY DAY gabapentin 600 mg tablet 600 mg PO TID Patient Comments: TAKE ONE TABLET BY MOUTH THREE TIMES A DAY Lactobacillus acidophilus 500 million cell Capsule 500 mmu cells PO TID Qty: 30 0RF Discharge Instructions Additional Instructions: Your leg swelling and stasis changes are old and chronic. Suspect your feet and legs are uncomfortable from sitting with feet dependent while waiting for your ride. No new changes and no indication for admission. Once home elevate your legs which should help. HPI General Mode of arrival: ambulatory . Date/Time Provider Initiated Documentation: 04/08/24 05:51 . Limitations to Documentation: no limitations . Information obtained by: patient . HPI Narrative: Patient just seen by me few hours ago. Has been sitting in the waiting room waiting for a ride this morning. Decided to check himself back in stating that he just did not feel well, his feet were hurting, he wants to be admitted. He has no other specific complaint. Previously had presented with chest pain and shortness of breath with complete workup that was reassuring. Related Data Home Medications ?Medication ?Instructions ?Recorded ?Confirmed esomeprazole magnesium 40 mg 40 mg PO DAILY 05/05/20 04/08/24 capsule,delayed release (Nexium) aspirin 81 mg tablet 81 mg PO DAILY 08/03/20 04/08/24 duloxetine 30 mg capsule,delayed 30 mg PO BID 08/03/20 04/08/24 release acetaminophen 325 mg tablet 1,000 mg PO Q6H PRN 09/27/20 04/08/24 (Tylenol) umeclidinium 62.5 mcg-vilanterol 1 ea inhalation DAILY 09/27/20 04/08/24 25 mcg/actuation powdr for inhalation (Anoro Ellipta) buprenorphine 4 mg-naloxone 1 mg 1 film sublingual DAILY 09/28/20 04/08/24 sublingual film (Suboxone) albuterol sulfate 90 mcg/actuation 2 inh inhalation Q6H PRN 04/12/22 04/08/24 aerosol inhaler dulaglutide 4.5 mg/0.5 mL 4.5 mg subcut QWEEK 04/12/22 04/08/24 subcutaneous pen injector (Trulicity) cyanocobalamin (vitamin B-12) 1,000 mcg PO DAILY 03/06/23 04/08/24 1,000 mcg tablet (Vitamin B-12) amlodipine 2.5 mg tablet 2.5 mg PO DAILY 09/30/23 04/08/24 gabapentin 600 mg tablet 600 mg PO TID 09/30/23 04/08/24 beclomethasone dipropionate 80 1 inh inhalation BID PRN 12/27/23 04/08/24 mcg/actuation HFA breath activated aerosol (Qvar RediHaler) diltiazem HCl 60 mg tablet 60 mg PO BID #90 tabs 12/29/23 04/08/24 (Cardizem) furosemide 40 mg tablet (Lasix) 40 mg PO DAILY #0 tabs 12/29/23 04/08/24 Lactobacillus acidophilus 500 500 mmu cells PO TID #30 caps 02/09/24 04/08/24 million cell capsule azithromycin 250 mg tablet 250 mg PO DAILY 4 days #4 tabs 04/08/24 04/08/24 prednisone 20 mg tablet 40 mg (2 x 20 mg) PO DAILY #8 tabs 04/08/24 04/08/24 Previous Rx's ?Medication ?Instructions ?Recorded diltiazem HCl 60 mg tablet 60 mg PO BID #90 tabs 12/29/23 (Cardizem) furosemide 40 mg tablet (Lasix) 40 mg PO DAILY #0 tabs 12/29/23 Lactobacillus acidophilus 500 500 mmu cells PO TID #30 caps 02/09/24 million cell capsule azithromycin 250 mg tablet 250 mg PO DAILY 4 days #4 tabs 04/08/24 prednisone 20 mg tablet 40 mg (2 x 20 mg) PO DAILY #8 tabs 04/08/24 Allergies Allergy/AdvReac Type Severity Reaction Status Date / Time Penicillins AdvReac Severe Vomiting Verified 04/08/24 05:51 hydrocodone AdvReac Intermediate vomiting Verified 04/08/24 05:51 General Stated Complaint: Recheck LILLIAN: 4 Review of Systems Narrative: Per HPI Exam Narrative Exam Narrative: Const: WDWN male in NAD. VS per triage. HEENT: NC/AT. Normal facial exam. Neck: Supple. Trachea midline. Lungs: Normal respiratory effort. Cor: RRR without murmur. Neuro: A+O x 3. Normal speech, mentation. Cranial nerves II - XII grossly intact. Ext: No C/C. BLE edema and stasis changes similar to earlier tonight. Course Vital Signs Vital signs: Vital Signs Temperature 98.1 F 04/08/24 05:48 Pulse 80 04/08/24 05:48 Respiratory Rate 16 04/08/24 05:48 Blood Pressure 170/100 H 04/08/24 05:48 Pulse Oximetry 98 04/08/24 05:48 Temperature 98.1 F 04/08/24 05:48 Temperature Source Temporal Artery Scan 04/08/24 05:48 Pulse 80 04/08/24 05:48 Respiratory Rate 16 04/08/24 05:48 Blood Pressure 170/100 H 04/08/24 05:48 Blood Pressure Position Sitting 04/08/24 05:48 Pulse Oximetry 98 04/08/24 05:48 Oxygen Delivery Method Room Air 04/08/24 05:48 Oxygen Flow Rate 0 04/08/24 05:48 Medical Decision Making Patient had been waiting in the waiting room after discharge earlier on this shift. Had been seen for chest pain and shortness of breath with a reassuring workup. Blood pressure is improved since previous values. No new complaints other than his feet hurt which I suspect are related to sitting in the waiting room for the last few hours with his feet dependent. He has chronic venous stasis changes and edema which at this time is similar to when I saw him earlier. He has no specific complaints other than he does not feel well and his feet hurt. Patient requesting admission but given previous workup from just a couple of hours ago no indication for admission. Once patient informed of that he simply got up and went back out into the waiting room. Quality:SDOH Health Related Social Needs: No Data to Display PFSH All Active Problems (Updated 04/08/24 @ 06:05 by Arya Lei MD) Bilateral edema of lower extremity (Acute) Dyspnea (Acute) Chest pain (Acute) Right rotator cuff tear (Acute) Abnormal CT scan, kidney (Acute) Anxiety (Chronic) Medical non-compliance (Acute) Aragon esophagus (Acute) Opiate dependence (Chronic) managed on suboxone Medical History Obstructive sleep apnea Chronic venous insufficiency COPD (chronic obstructive pulmonary disease) Diabetic neuropathy Hx of deep venous thrombosis on Coumadin Diabetes mellitus Hypertension Cocaine abuse 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 S/P percutaneous endoscopic gastrostomy (PEG) tube placement History of ankle surgery S/P spinal surgery Family History Father No problems noted. Mother COPD (chronic obstructive pulmonary disease) Hypertension Diabetes Heart disease Sister Stroke Social History Smoking/Tobacco Use Status: Current every day Tobacco Type: cigarettes Smoking risk assessment performed?: Yes Alcohol Intake: never Drug use: Daily Substance use type: marijuana and crack/cocaine Caregiver/Support person: Yes Household members: friend(s) Housing: house Number of Children: 0 number of grandchildren: 1 current occupation: Disabled Pets and animals: Yes Pets and animals: cat(s) Current gender identity: male What type of physical activity do you participate in: none Do you feel safe at home: Yes Do you feel safe in your relationship?: Yes Additional Social history: Lives with ex- Vanessa, who is his caregiver. Lives in private home.
== END 2024-04-08 06:12 | disposition home or self-care (01) ==
PROVIDERS: Emergency Provider Emergency Medicine; PCP Family Medicine
DX: R60.0 Localized edema (principal); R06.00 Dyspnea, unspecified; R07.9 Chest pain, unspecified; I10 Essential (primary) hypertension; F17.210 Nicotine dependence, cigarettes, uncomplicated
CPT/HCPCS: 99282; 99283

== ENCOUNTER 2024-04-24 07:22 | Inpatient (IN) | payer MEDICAID, SELFPAY ==
[2024-04-24] VITALS (153 sets, daily range): BP systolic 128–228; BP diastolic 60–121; PULSE 41–97; RESP 9–45; TEMP 36.4–36.5; O2SAT 89–98
--- NOTE | 2024-04-24 07:15 | RT.EKG_ITS ---
APPROVED REPORT Exam: Resting ECG Reason for Exam: chest pain Patient Location: E HR:65 bpm ECG Measurements Heart Rate 65 AXIS HI 165 P 67 QRSd 134 QRS 64 QT 429 T 96 QTc 446 Conclusion Sinus rhythm...normal P axis, V-rate 60- 99 Probable left atrial enlargement...P >50mS, <-0.10mV V1 Right bundle branch block...QRSd>120, terminal axis(90,270) Nonspecific T abnormalities, lateral leads...T <-0.10mV, I aVL V5 V6 Physician: No stemi. sinus rhythm with a rate of 65, right bundle branch block is present, questionab le minimal less than 1 mm of elevation in the inferior leads, inverted T waves in V1 and V2 with mini mal lateral depression.
--- NOTE | 2024-04-24 07:15 | DI.RAD_ITS ---
Exam(s) XR PORTABLE CHEST AP EXAM: XR PORTABLE CHEST AP CLINICAL HISTORY: hypoxic, sob, recent flu,chest pain. TECHNIQUE: 2D digital imaging was performed. COMPARISON: CR,XR XR CHEST 2V PA LATERAL from 04/07/2024 FINDINGS: Single AP portable view. Sternotomy wires and prosthetic aortic valve again noted Heart size is upper normal. The mediastinum is not widened. Lungs are clear. No infiltrates nor obvious pleural effusions. No evidence of pulmonary edema. IMPRESSION: No acute pulmonary findings on this single AP portable view of the chest. DATA REPOSITORY: RADIATION DOSE DELIVERED:
[2024-04-24 07:52] LABS: Abs Immature Grans 0.01 10^3/uL (0.0-0.06); Absolute Basophil Count 0.06 10^3/uL (0.0-0.2); Absolute Eosinophil Count 0.25 10^3/uL (0.0-0.7); Absolute Lymphocyte Count 1.69 10^3/uL (1.2-3.4); Absolute Monocyte Count 0.55 10^3/uL (0.1-0.8); Absolute Neutrophil Count 4.42 10^3/uL (1.2-6.7); Basophils % 0.9 %; Eosinophils % 3.6 %; HCT 48.2 % (40.0-50.0); HGB 15.3 g/dL (13.5-17.5); Immature Grans % 0.1 %; Lymphocytes % 24.2 %; MCH 26.4 pg (27.0-33.0); MCHC 31.7 % (32.0-36.0); MCV 83 fL (80-95); MPV 9.2 fL (8.0-11.0); Monocytes % 7.9 %; Neutrophils % 63.3 %; Platelet Count 287 10^3/uL (130-400); RDW 14.3 % (11.8-14.1); RDW-SD 43.3 fL; WBC 6.98 10^3/uL (4.4-10.8)
--- NOTE | 2024-04-24 08:07 | ED.GENADUL_ITS ---
Discharge Plan Disposition Patient Disposition: Admit to [facility] Condition: Serious Discharge Details Chief Complaint: Chest Pain Clinical Impression: Hypertensive emergency, Chest pain Primary Care Provider: Evon Howard ED Provider: Rohan Liao Home Meds and New Rx's Prescriptions: No Action esomeprazole magnesium [Nexium] 40 mg capsule,delayed release(DR/EC) 40 mg PO DAILY Trulicity 4.5 mg/0.5 mL pen injector 4.5 mg subcut QWEEK Patient Comments: takes on monday albuterol sulfate 90 mcg/actuation HFA aerosol inhaler 2 inh inhalation Q6H PRN aspirin 81 mg Tablet 81 mg PO DAILY duloxetine 30 mg Capsule,Delayed Release(Dr/Ec) 30 mg PO BID acetaminophen [Tylenol] 325 mg tablet 1,000 mg PO Q6H PRN Anoro Ellipta 62.5-25 mcg/actuation blister with device 1 ea INHALATION DAILY Patient Comments: INHALE ONE PUFF BY MOUTH EVERY DAY buprenorphine-naloxone [Suboxone] 4-1 mg film 1 film sublingual DAILY Patient Comments: PLACE ONE FILM UNDER THE TONGUE EVERY DAY cyanocobalamin (vitamin B-12) [Vitamin B-12] 1,000 mcg tablet 1,000 mcg PO DAILY Qvar RediHaler 80 mcg/actuation HFA aerosol breath activated 1 inh INHALATION BID PRN Patient Comments: INHALE ONE PUFF BY MOUTH TWICE A DAY NEEDED diltiazem HCl [Cardizem] 60 mg Tablet 60 mg PO BID Qty: 90 0RF furosemide [Lasix] 40 mg Tablet 40 mg PO DAILY Qty: 0 0RF amlodipine 2.5 mg tablet 2.5 mg PO DAILY Patient Comments: TAKE ONE TABLET BY MOUTH EVERY DAY gabapentin 600 mg tablet 600 mg PO TID Patient Comments: TAKE ONE TABLET BY MOUTH THREE TIMES A DAY Lactobacillus acidophilus 500 million cell Capsule 500 mmu cells PO TID Qty: 30 0RF HPI General Date/Time Provider Initiated Documentation: 04/24/24 07:28 . HPI Narrative: 58-year-old male with a past medical history of aortic valve replacement secondary to aortic valve endocarditis, COPD, chronic venous insufficiency, history of blood clot, diabetes mellitus, hypertension, previous cocaine use in the past, current tobacco user, previous stroke without deficits, currently on a daily 81 mg aspirin, who presents today for evaluation of chest pain. Symptoms have been present for the last 3 days, he had EMS come and evaluate him 2 or 3 days ago but then refused to come to the ER. However over the last hour or so he has had severe sharp heavy chest pain. He describes it like a person is sitting on his chest. EMS came and gave him full dose aspirin, as well as nitroglycerin sublingual. Pain went from a 10 to a 3 after this. He states that the weight now feels like it On his chest. He was recently diagnosed with influenza. He is also states that he is receiving antibiotic therapy for cellulitis on his legs currently. Uncertain of which antibiotic at this time. Patient denies any pain in his arm or neck. He denies any tearing or ripping sensation. He does admit to mild pleuritic pain. He does feel short of breath. No other complaints at this time. Related Data Home Medications ?Medication ?Instructions ?Recorded ?Confirmed esomeprazole magnesium 40 mg 40 mg PO DAILY 05/05/20 04/24/24 capsule,delayed release (Nexium) aspirin 81 mg tablet 81 mg PO DAILY 08/03/20 04/24/24 duloxetine 30 mg capsule,delayed 30 mg PO BID 08/03/20 04/24/24 release acetaminophen 325 mg tablet 1,000 mg PO Q6H PRN 09/27/20 04/24/24 (Tylenol) umeclidinium 62.5 mcg-vilanterol 1 ea inhalation DAILY 09/27/20 04/24/24 25 mcg/actuation powdr for inhalation (Anoro Ellipta) buprenorphine 4 mg-naloxone 1 mg 1 film sublingual DAILY 09/28/20 04/24/24 sublingual film (Suboxone) albuterol sulfate 90 mcg/actuation 2 inh inhalation Q6H PRN 04/12/22 04/24/24 aerosol inhaler dulaglutide 4.5 mg/0.5 mL 4.5 mg subcut QWEEK 04/12/22 04/24/24 subcutaneous pen injector (Trulicity) cyanocobalamin (vitamin B-12) 1,000 mcg PO DAILY 03/06/23 04/24/24 1,000 mcg tablet (Vitamin B-12) amlodipine 2.5 mg tablet 2.5 mg PO DAILY 09/30/23 04/24/24 gabapentin 600 mg tablet 600 mg PO TID 09/30/23 04/24/24 beclomethasone dipropionate 80 1 inh inhalation BID PRN 12/27/23 04/24/24 mcg/actuation HFA breath activated aerosol (Qvar RediHaler) diltiazem HCl 60 mg tablet 60 mg PO BID #90 tabs 12/29/23 04/24/24 (Cardizem) furosemide 40 mg tablet (Lasix) 40 mg PO DAILY #0 tabs 12/29/23 04/24/24 Lactobacillus acidophilus 500 500 mmu cells PO TID #30 caps 02/09/24 04/24/24 million cell capsule Previous Rx's ?Medication ?Instructions ?Recorded diltiazem HCl 60 mg tablet 60 mg PO BID #90 tabs 12/29/23 (Cardizem) furosemide 40 mg tablet (Lasix) 40 mg PO DAILY #0 tabs 12/29/23 Lactobacillus acidophilus 500 500 mmu cells PO TID #30 caps 02/09/24 million cell capsule Allergies Allergy/AdvReac Type Severity Reaction Status Date / Time Penicillins AdvReac Severe Vomiting Verified 04/24/24 07:37 hydrocodone AdvReac Intermediate vomiting Verified 04/24/24 07:37 General Stated Complaint: Chest Pain LILLIAN: 2 Exam Narrative Exam Narrative: 1.Const: Well-nourished, Well-developed, appearing stated age 2.Eyes: PERRL, no conjunctival injection, and symmetrical lids. 3.ENT: Atraumatic external nose and ears. Moist MM. Neck: Symmetric, trachea midline, No thyromegaly. 4.CVS: +S1/S2, Peripheral pulses 2+ and equal in all extremities. Brisk capillary refill in all extremities. 5.RESP: Unlabored respiratory effort. Rhonchorous breath sounds throughout 6.GI: Soft, Nontender/Nondistended, No hepatosplenomegaly. No guarding or rebound. 7.MSK: Normocephalic/Atraumatic, Extremities w/o deformity or ttp No cyanosis or clubbing, Normal movement of all extremities 8.Skin: Warm, Dry. Erythema on the lower extremities bilaterally, mildly red and warm. Mildly tender throughout the lower extremities. 9.Neuro: lime slaker II-XII grossly intact. Sensation grossly intact, no focal neurologic deficits. 10.Psych: (AAO) x3. Appropriate mood and affect Course Vital Signs Vital signs: Vital Signs Temperature 36.5 C 04/24/24 07:18 Pulse 68 04/24/24 07:18 Respiratory Rate 25 H 04/24/24 07:18 Blood Pressure 191/102 H 04/24/24 07:18 Pulse Oximetry 93 04/24/24 07:18 Temperature 36.5 C 04/24/24 07:18 Temperature Source Oral 04/24/24 07:18 Pulse 68 04/24/24 07:18 Respiratory Rate 24 04/24/24 07:45 Respiratory Effort Normal, Non-Labored 04/24/24 07:45 Respiratory Depth Normal 04/24/24 07:45 Respiratory Pattern Normal 04/24/24 07:45 Blood Pressure 191/102 H 04/24/24 07:18 Blood Pressure Position Sitting 04/24/24 07:18 Pulse Oximetry 93 04/24/24 07:18 Oxygen Delivery Method Room Air 04/24/24 07:18 Oxygen Flow Rate 0 04/24/24 07:18 Pain Level 2 04/24/24 07:18 Lab/Test Results Lab/Test Results: Laboratory Tests Range/Units 04/24/24 07:39 WBC (4.4-10.8) 10^3/uL 6.98 RBC (4.36-5.78) 10^6/uL 5.80 H Hgb (13.5-17.5) g/dL 15.3 Hct (40.0-50.0) % 48.2 MCV (80-95) fL 83 MCH (27.0-33.0) pg 26.4 L MCHC (32.0-36.0) % 31.7 L RDW (11.8-14.1) % 14.3 H Plt Count (130-400) 10^3/uL 287 MPV (8.0-11.0) fL 9.2 Immature Gran % % 0.1 Neutrophils % % 63.3 Lymphocytes % % 24.2 Monocytes % % 7.9 Eosinophils % % 3.6 Basophils % % 0.9 Nucleated RBC % (0.0-0.3) % 0.0 Absolute Neutrophils (1.2-6.7) 10^3/uL 4.42 Absolute Lymphocytes (1.2-3.4) 10^3/uL 1.69 Absolute Monocytes (0.1-0.8) 10^3/uL 0.55 Absolute Eosinophils (0.0-0.7) 10^3/uL 0.25 Absolute Basophils (0.0-0.2) 10^3/uL 0.06 Medical Decision Making 58-year-old male with a past medical history of aortic valve replacement secondary to aortic valve endocarditis, COPD, chronic venous insufficiency, history of blood clot, diabetes mellitus, hypertension, previous cocaine use in the past, current tobacco user, previous stroke without deficits, currently on a daily 81 mg aspirin, who presents today for evaluation of chest pain. Symptoms have been present for the last 3 days, he had EMS come and evaluate him 2 or 3 days ago but then refused to come to the ER. However over the last hour or so he has had severe sharp heavy chest pain. He describes it like a person is sitting on his chest. EMS came and gave him full dose aspirin, as well as nitroglycerin sublingual. Pain went from a 10 to a 3 after this. He states that the weight now feels like it On his chest. He was recently diagnosed with influenza. He is also states that he is receiving antibiotic therapy for cellulitis on his legs currently. Uncertain of which antibiotic at this time. Patient denies any pain in his arm or neck. He denies any tearing or ripping sensation. He does admit to mild pleuritic pain. He does feel short of breath. No other complaints at this time. Exam demonstrates erythema in the lower extremities, mild tenderness throughout that area. Indicative of mild to moderate cellulitis. He has rhonchorous breath sounds throughout, no wheezes though. Differential is high for ACS or cardiac etiology secondary to the improvement of his pain with nitro, as well as the history of symptoms and his medical risk factors. Post viral myocarditis is high in the differential as well, pericarditis is on the differential but less likely. Pneumonia or CHF is of concern. PE is also of concern with his history of clot, his current cellulitis in the lower extremities, and his curre nt symptoms. Will evaluate for these etiologies. Patient is refusing additional nitroglycerin at this time. Will monitor closely and reassess. EKG demonstrates sinus rhythm with a rate of 65, right bundle branch block is present, questionable minimal less than 1 mm of elevation in the inferior leads, inverted T waves in V1 and V2 with minimal lateral depression. 1 PM Laboratory workup is returned, D-dimer negative, proBNP normal, serial troponins all normal. No white count or bandemia. Electrolytes stable with a slight increase in his creatinine to 1.5. proBNP normal suggesting no strain. No evidence to suggest PE with negative D-dimer. Chest x-ray negative for acute process. Patient remained notably hypertensive in the high 200s around 240 systolic. He was started on a nitroglycerin drip, and this was titrated up for resolution of pain. Eventually his pain resolved at 200 mics per minute, and his blood pressure improved to the 160s systolic. We did contact [facility] [place] and discussed the case with cardiology/[place] nurse practitioner. She reviewed the case with her attending, and at this time they feel that the patient's chest symptoms are more likely related to hypertensive emergency. They recommend getting formal echo with continued serial troponins and to reach out to them if the patient's pain does return. 2 PM Discussed the case with the hospitalist Dr. Berger, he agrees with assessment and plan. Patient will be admitted for further monitoring and echo. We did place an order for an echo however unfortunately there are no additional echo services available today. Patient remains chest pain-free at this time. 3:06 PM Patient has had a few episodes where his heart rate will drop to the 30s for few seconds. No syncope during these phases. Blood pressure remains improved. Patient pending transition to the ICU for admission. We will reach out to the hospitalist and inform him. FINDINGS: Single AP portable view. Sternotomy wires and prosthetic aortic valve again noted Heart size is upper normal. The mediastinum is not widened. Lungs are clear. No infiltrates nor obvious pleural effusions. No evidence of pulmonary edema. IMPRESSION: No acute pulmonary findings on this single AP portable view of the chest. Quality:SDOH Health Related Social Needs: No Data to Display Critical Care Time Critical Care Time Critical Care Time: Yes Total Critical Care Time: 90 Attestation: Upon my evaluation, this patient had a high probability of imminent or life- threatening deterioration, which required my direct attention, intervention, and personal management. I have personally provided 90 minutes of critical care time exclusive of time spent on separately billable procedures. Time includes review of laboratory data, radiology results, discussion with consultants, and monitoring for potential decompensation. Interventions were performed as documented. [facility] All Active Problems (Updated 04/24/24 @ 15:08 by Rohan Liao DO) Chest pain (Acute) Hypertensive emergency (Acute) Bilateral edema of lower extremity (Acute) Dyspnea (Acute) Chest pain (Acute) Right rotator cuff tear (Acute) Abnormal CT scan, kidney (Acute) Anxiety (Chronic) Medical non-compliance (Acute) Aragon esophagus (Acute) Opiate dependence (Chronic) managed on suboxone Medical History Obstructive sleep apnea Chronic venous insufficiency COPD (chronic obstructive pulmonary disease) Diabetic neuropathy Hx of deep venous thrombosis on Coumadin Diabetes mellitus Hypertension Cocaine abuse 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 S/P percutaneous endoscopic gastrostomy (PEG) tube placement History of ankle surgery S/P spinal surgery Family History Father No problems noted. Mother COPD (chronic obstructive pulmonary disease) Hypertension Diabetes Heart disease Sister Stroke Social History Smoking/Tobacco Use Status: Current every day Tobacco Type: cigarettes Smoking risk assessment performed?: Yes Alcohol Intake: never Drug use: Daily Substance use type: marijuana and crack/cocaine Caregiver/Support person: Yes Household members: friend(s) Housing: house Number of Children: 0 number of grandchildren: 1 current occupation: Disabled Pets and animals: Yes Pets and animals: cat(s) Current gender identity: male What type of physical activity do you participate in: none Do you feel safe at home: Yes Do you feel safe in your relationship?: Yes Additional Social history: Lives with ex- Vanessa, who is his caregiver. Lives in private home. POCUS Exam (ED) Limited Cardiac Exam DATE OF EXAM: 04/24/24 TIME OF EXAM: 15:07 PROVIDER THAT PERFORMED THE STUDY: Rohan Liao IS THIS A REPEAT EXAM DURING THIS ENCOUNTER: no REASON FOR EXAM: Chest pain VISUALIZED STRUCTURES: Left ventricle VIEW OBTAINED: Parasternal long-axis PERTINENT FINDINGS/IMPRESSION: Other (Was not able to fully visualize left and right ventricles and left atria. Left ventricle does appear to be thickened, no evidence of gross wall motion abnormality. Trace pericardial effusion with no evidence of tamponade.) Exam complete
[2024-04-24 08:08] LABS: ALT 16 U/L (16-63); AST 8 U/L (15-37); Albumin 3.7 g/dL (3.4-5.0); Alkaline Phosphatase 77 U/L (46-116); Anion Gap 6.5 mmol/L (3-11); BUN 27 mg/dL (7-18); Bilirubin, Total 0.26 mg/dL (0.2-1.0); CO2 32.5 mmol/L (21.0-32.0); CREATININE 1.5 mg/dL (0.70-1.30); Calcium 9.9 mg/dL (8.5-10.1); Chloride 103 mmol/L (98-107); Estimated GFR 53.63 (mL/min/1.73m2); Glucose 139 mg/dL (74-106); Potassium 4.1 mmol/L (3.5-5.1); Sodium 142 mmol/L (136-145); Total Protein 8.3 g/dL (6.4-8.2)
[2024-04-24 08:15] LABS: NT-proBNP 171 pg/mL (<300); Troponin I 13 ng/L (<or=76)
[2024-04-24 08:18] LABS: D-Dimer 327 ng/mlFEU (<500)
[2024-04-24 08:26] LABS: PTT Activated 25.4 sec (20.6-30.2); Prothrombin Time 9.9 sec (9.1-11.1)
[2024-04-24] MEDS: nitroGLYcerin in D5W 50 MG/250 ML BTL 22.5 MG IV (09:18)
[2024-04-24 09:41] LABS: Troponin I 12 ng/L (<or=76)
--- NOTE | 2024-04-24 09:45 | RT.EKG_ITS ---
APPROVED REPORT Exam: Resting ECG Reason for Exam: chest pain Patient Location: E HR:90 bpm ECG Measurements Heart Rate 90 AXIS NJ 168 P 54 QRSd 130 QRS 69 QT 402 T 58 QTc 492 Conclusion Sinus rhythm...normal P axis, V-rate 60- 99 Probable left atrial enlargement...P >50mS, <-0.10mV V1 Right bundle branch block...QRSd>120, terminal axis(90,270) Physician: no stemi
--- NOTE | 2024-04-24 11:15 | RT.EKG_ITS ---
APPROVED REPORT Exam: Resting ECG Reason for Exam: chest pain Patient Location: E HR:71 bpm ECG Measurements Heart Rate 71 AXIS GA 154 P 33 QRSd 128 QRS 77 QT 427 T 59 QTc 463 Conclusion Sinus rhythm...normal P axis, V-rate 60- 99 Nonspecific intraventricular conduction delay...QRSd >115mS, not LBBB/RBBB Anteroseptal infarct, age indeterminate...Q >35mS, T neg, V1-V2 Physician: no stemi
[2024-04-24 11:28] LABS: Troponin I 13 ng/L (<or=76)
[2024-04-24] MEDS: nitroGLYcerin in D5W 50 MG/250 ML BTL 45 MG IV (13:38)
[2024-04-24] MEDS: Lactobacillus Acidophilus CAP 1 CAP PO ×2 (13:56→21:37)
[2024-04-24] MEDS: Gabapentin 600 MG TAB PO (13:56)
--- NOTE | 2024-04-24 14:30 | RT.EKG_ITS ---
APPROVED REPORT Exam: Resting ECG Reason for Exam: chest pain, pause on rhythm strip Patient Location: E HR:64 bpm ECG Measurements Heart Rate 64 AXIS DC 180 P 44 QRSd 128 QRS 62 QT 460 T 77 QTc 476 Conclusion Sinus rhythm...normal P axis, V-rate 60- 99 Probable left atrial enlargement...P >50mS, <-0.10mV V1 Right bundle branch block...QRSd>120, terminal axis(90,270) I have reviewed and interpreted ECG and agree with software generated interpretation.
[2024-04-24 15:24] LABS: Troponin I 14 ng/L (<or=76)
--- NOTE | 2024-04-24 15:27 | W.PC.ACHO ---
Registration Status: Primary Language: Preferred Language: ED Information & Data Chief Complaint Chest Pain 04/24/24 08:13 Triage Note CP started this am at approx 04/24/24 07:18 0600, but has been intermittent over the past three days w/the ambulance going out to assess and pt. refused transport at that time. Patient c/o substernal CP, nonradiating. Dx with flu last week. States having some Chest heaviness. Medical / Surgical History (Last Reviewed 04/07/24 @ 22:20 by Arya Lei MD) Obstructive sleep apnea Chronic venous insufficiency COPD (chronic obstructive pulmonary disease) Diabetic neuropathy Hx of deep venous thrombosis Diabetes mellitus Hypertension Cocaine abuse Cerebral septic emboli GI bleed Osteomyelitis of left fibula Endocarditis Depression MSSA (methicillin susceptible Staphylococcus aureus) septicemia (Last Reviewed 04/07/24 @ 22:20 by Arya Lei MD) S/P endoscopy H/O aortic valve replacement S/P hardware removal S/P percutaneous endoscopic gastrostomy (PEG) tube placement History of ankle surgery S/P spinal surgery Most Recent Vital Signs Temperature 36.5 C 04/24/24 07:18 Temperature Source Oral 04/24/24 07:18 Pulse 69 04/24/24 15:01 Pulse 67 04/24/24 15:01 Respiratory Rate 21 04/24/24 15:01 Respiratory Effort Normal, Non-Labored 04/24/24 07:45 Respiratory Depth Normal 04/24/24 07:45 Respiratory Pattern Normal 04/24/24 07:45 Blood Pressure 168/98 H 04/24/24 15:01 Blood Pressure Mean 122 04/24/24 15:01 Blood Pressure Position Sitting 04/24/24 07:18 Pulse Oximetry 97 04/24/24 15:01 Oxygen Delivery Method Nasal Cannula 04/24/24 13:24 Oxygen Flow Rate 1 04/24/24 13:24 Pain Level 2 04/24/24 07:18 Allergies Penicillins Adverse Reaction (Severe, Verified 04/24/24 07:37) Vomiting hydrocodone Adverse Reaction (Intermediate, Verified 04/24/24 07:37) vomiting Precautions Isolation Standard precaution 04/24/24 07:35 Active Medications Generic Name Dose Route Start Last Admin Trade Name Freq PRN Reason Stop Dose Admin Acidophilus/Pectin 1 cap 04/24/24 14:00 04/24/24 13:56 Lactobacillus Acidophilus Cap PO 1 cap TID HAMLET Administration Gabapentin 600 mg 04/24/24 14:00 04/24/24 13:56 Gabapentin 600 Mg Tab PO 600 mg TID HAMLET Administration Nitroglycerin/Dextrose 50 mg in 250 mls @ 30 mls/hr 04/24/24 09:15 04/24/24 13:38 IV 150 mcg/min INFUSION HAMLET 45 mls/hr Administration Protocol 100 MCG/MIN IV IV Catheter Type [Left Saline Lock Antecubital] IV Catheter Gauge [Left 18 Antecubital] Diet Orders Category Date Time Status Heart Healthy Eating [DIET] Nutrition 04/24/24 Dinner Active Diagnostics 04/24/24 04/24/24 04/24/24 Range/Units 14:58 11:00 09:18 WBC (4.4-10.8) 10^3/uL RBC (4.36-5.78) 10^6/uL Hgb (13.5-17.5) g/dL Hct (40.0-50.0) % MCV (80-95) fL MCH (27.0-33.0) pg MCHC (32.0-36.0) % RDW (11.8-14.1) % Plt Count (130-400) 10^3/uL MPV (8.0-11.0) fL Immature Gran % % Neutrophils % % Lymphocytes % % Monocytes % % Eosinophils % % Basophils % % Nucleated RBC % (0.0-0.3) % Absolute Neutrophils (1.2-6.7) 10^3/uL Absolute Lymphocytes (1.2-3.4) 10^3/uL Absolute Monocytes (0.1-0.8) 10^3/uL Absolute Eosinophils (0.0-0.7) 10^3/uL Absolute Basophils (0.0-0.2) 10^3/uL PT (9.1-11.1) sec INR (0.9-1.1) APTT (20.6-30.2) sec D-Dimer (<500) ng/mlFEU Sodium (136-145) mmol/L Potassium (3.5-5.1) mmol/L Chloride (98-107) mmol/L Carbon Dioxide (21.0-32.0) mmol/L Anion Gap (3-11) mmol/L BUN (7-18) mg/dL Creatinine (0.70-1.30) mg/dL Est GFR (CKD-EPI 2020) (mL/min/1.73m2) Glucose (74-106) mg/dL Calcium (8.5-10.1) mg/dL Total Bilirubin (0.2-1.0) mg/dL AST (15-37) U/L ALT (16-63) U/L Alkaline Phosphatase (46-116) U/L Troponin I 14 13 12 (<or=76) ng/L NT-Pro-B Natriuret Pep (<300) pg/mL Total Protein (6.4-8.2) g/dL Albumin (3.4-5.0) g/dL 04/24/24 Range/Units 07:39 WBC 6.98 (4.4-10.8) 10^3/uL RBC 5.80 H (4.36-5.78) 10^6/uL Hgb 15.3 (13.5-17.5) g/dL Hct 48.2 (40.0-50.0) % MCV 83 (80-95) fL MCH 26.4 L (27.0-33.0) pg MCHC 31.7 L (32.0-36.0) % RDW 14.3 H (11.8-14.1) % Plt Count 287 (130-400) 10^3/uL MPV 9.2 (8.0-11.0) fL Immature Gran % 0.1 % Neutrophils % 63.3 % Lymphocytes % 24.2 % Monocytes % 7.9 % Eosinophils % 3.6 % Basophils % 0.9 % Nucleated RBC % 0.0 (0.0-0.3) % Absolute Neutrophils 4.42 (1.2-6.7) 10^3/uL Absolute Lymphocytes 1.69 (1.2-3.4) 10^3/uL Absolute Monocytes 0.55 (0.1-0.8) 10^3/uL Absolute Eosinophils 0.25 (0.0-0.7) 10^3/uL Absolute Basophils 0.06 (0.0-0.2) 10^3/uL PT 9.9 (9.1-11.1) sec INR 1.0 (0.9-1.1) APTT 25.4 (20.6-30.2) sec D-Dimer 327 (<500) ng/mlFEU Sodium 142 (136-145) mmol/L Potassium 4.1 (3.5-5.1) mmol/L Chloride 103 (98-107) mmol/L Carbon Dioxide 32.5 H (21.0-32.0) mmol/L Anion Gap 6.5 (3-11) mmol/L BUN 27 H (7-18) mg/dL Creatinine 1.5 H (0.70-1.30) mg/dL Est GFR (CKD-EPI 2020) 53.63 (mL/min/1.73m2) Glucose 139 H (74-106) mg/dL Calcium 9.9 (8.5-10.1) mg/dL Total Bilirubin 0.26 (0.2-1.0) mg/dL AST 8 L (15-37) U/L ALT 16 (16-63) U/L Alkaline Phosphatase 77 (46-116) U/L Troponin I 13 (<or=76) ng/L NT-Pro-B Natriuret Pep 171 (<300) pg/mL Total Protein 8.3 H (6.4-8.2) g/dL Albumin 3.7 (3.4-5.0) g/dL [id number] Documentation Fingerstick Glucose Start: 04/24/24 14:51 Freq: Status: Active Protocol: Activity Type Activity Date Activity User E-sign Co-sign Detail Recorded Client Recorded Date Recorded By Document 04/24/24 14:50 BKG DAEMON(3) [id number] 04/24/24 14:51 BKG DAEMON(4) Intake and Output - 24 Hour Total 04/24/24 07:11 thru 04/24/24 15:06 Intake Total 67.625 Output Total 450 Balance -382.375 Weight 90.718 kg Intake: IV 67.625 Output: Urine 450 Falls Risk Assessment History of Falls Previous History 04/24/24 07:35 Contributing Factors Impairments 04/24/24 07:35 Ambulatory Aids Uses ambulatory device 04/24/24 07:35 Tubes/Lines With any additional score 04/24/24 07:35 Gait Evaluation W/any additional score 04/24/24 07:35 Cognition No cognitive impairment 04/24/24 07:35 Fall Total Score 73 04/24/24 07:35 Level of Risk High Risk 04/24/24 07:35 Problems (Last Reviewed 04/07/24 @ 22:20 by Arya Lei MD) Chest pain (Acute) Hypertensive emergency (Acute) v v v v v v v v v Sending and/or Receiving Nurses: Please use comment section below to note any information pertinent to the patient hand-off not included above. Information / Comments: Nitro drip has been stopped due to bradycardia and pause. All questions answered. Report received from: Yulia Garibay RN
--- NOTE | 2024-04-24 15:43 | PHACLINREV_ITS ---
Pharmacy Admission Review Admission Clinical Review Admission Pharmacy Review: (Updated 04/24/24 @ 15:31 by DIVINA CHANCE) Chest pain (Acute) Hypertensive emergency (Acute) Penicillins Adverse Reaction (Severe, Verified 04/24/24 07:37) Vomiting hydrocodone Adverse Reaction (Intermediate, Verified 04/24/24 07:37) vomiting Resuscitation Status Full Code Height 5 ft 11 in Weight 90.718 kg Pharmacy Admission Review Renal Dosing Renal Dosing: BUN 27 mg/dL (7-18) H 04/24/24 07:39 Creatinine 1.5 mg/dL (0.70-1.30) H 04/24/24 07:39 Medications needing adjustments: Reviewed (CrCl 61.85 mL/min) List of meds needing interventions: Current medications are okay Anticoagulation Anticoagulation: Hgb 15.3 g/dL (13.5-17.5) 04/24/24 07:39 Hct 48.2 % (40.0-50.0) 04/24/24 07:39 Plt Count 287 10^3/uL (130-400) 04/24/24 07:39 INR 1.0 (0.9-1.1) 04/24/24 07:39 Creatinine 1.5 mg/dL (0.70-1.30) H 04/24/24 07:39 DVT Prophylaxis: Intervened (None at this time - reached out to provider. Matias cintron to hear back.) Relevant Labs Relevant Labs: Sodium 142 mmol/L (136-145) 04/24/24 07:39 Potassium 4.1 mmol/L (3.5-5.1) 04/24/24 07:39 Chloride 103 mmol/L (98-107) 04/24/24 07:39 Electrolytes, C-Reactive P, ESR: Reviewed Cardiac Review Cardiac Review: Troponin I 14 ng/L (<or=76) 04/24/24 14:58 NT-Pro-B Natriuret Pep 171 pg/mL (<300) 04/24/24 07:39 Blood Pressure 190/109 1521 Blood Pressure 191/89 1511 Blood Pressure 168/98 1501 Blood Pressure 192/97 1456 Blood Pressure 164/80 1452 Blood Pressure 149/82 1446 Blood Pressure 177/82 1441 Blood Pressure 183/107 1431 Blood Pressure 193/108 1415 Blood Pressure 174/111 1400 Blood Pressure 177/94 1346 Blood Pressure 192/79 1331 Blood Pressure 149/100 1324 Blood Pressure 175/90 1316 Blood Pressure 185/110 1301 BP, HR, EF%: Reviewed (HR 54, oxygen flow rate 1) List meds needing interventions: Has order for amlodipine 2.5mg daily, diltiazem 60mg BID, furosemide 40mg daily and nitroglycerin infusion running at 150 mcg/min QTc Review QTc: Reviewed (476 from 04/24/24) IV to PO Switch IV Medications: Reviewed (nitroglycerin infusion) Home Meds Home Med List reviewed: Intervened Relevent Home Meds Not ordered & why?: Qvar (formulary substitution with Asmanex per pharmacy protocol), Trulicity, Anoro Ellipta (formulary substitution with Stiolto per pharmacy protocol) Asked nurse to see if patient takes atorvastatin or lisinopril at home (recently filled per external fill history). Waiting to hear back. Current Meds Current Medication Order Review: Reviewed
--- NOTE | 2024-04-24 16:12 | HPE_ITS ---
Date of service: 04/24/24 Time of Service: 16:12 Assessment and Plan Assessment and plan (1) Chest pain: Status: Acute Assessment and plan: Chest pain in the setting of severe hypertension. Very concerning for angina, EKG changes possibly c/w ischemia, but negative troponins x 4. EKGs reviewed with [facility] [place], felt secondary to hypertensive emergency Now chest pain free, even off drip. At risk for PE but responds and resolved with NTG, no tachycardia, not c/w this diagnosis. (2) Hypertensive emergency: Status: Acute Assessment and plan: Improved on NTG drip, now off I reviewed PCP record, corrected med rec, schedule his medications. He does not appears to be in withdrawal. He has a h/o poor compliance, but denies missing medications. H/o cocaine use, endorses only cannabis but could be contaminated. Get UDS. (3) Opiate dependence: Status: Chronic Assessment and plan: continue buprenorphine (4) Recurrent apnea: Status: Acute Assessment and plan: He is nodding off, having apneic spells followed by bradycardia He may have taken sedating drug in cannibis, such as fentanyl Gabapentin may be contributing with increase in Cr He may be retaining CO2, has done this in the past. Try to get off oxygen, goal 88-91%, get VBG if not improving. Tried on CPAP but he does not tolerate (5) Bradycardia: Status: Resolved Assessment and plan: Associated with above. Not persistent. PCP recently stopped diltiazem because of this, possible he was still taking? Monitor in ICU, has pads placed. (6) Cellulitis of right lower extremity: Status: Resolved Assessment and plan: getting cellulitis in area of venous stasis, treat with cefazolin. has PCN allergy but tolerated cephalosporins. 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 He doesn't remember the first time it happened. The pain is a pressure, left mid chest, like someone standing on it. No radiation to neck/arm/back. It is associated with dizziness, diaphoresis, heart pounding, and shortness of breath. It is not a/w nausea. Lasts at least a few minutes to hours, was persistent this morning and called EMS. Was 10/10, down to 3/10 with NTG, resolved since on NTG drip. Of note his diltiazem was recently stopped by his PCP due to recurrent episodes of bradycardia. It was replaced with spironolactone 25mg. No other recent medication changes. He states he is taking his medications, but he can't name them all. Denies cocaine or other drug use, just MJ. He has been very tired but not sleeping well over the past few days. He did have the flu recently and still has some cough and runny nose. Review of Systems All systems reviewed & are unremarkable except as noted in HPI and below Constitutional Constitutional: Denies chills, Denies fever(s), Denies headache(s) and Reports lethargy ENT Ears, Nose, Mouth, and Throat: Denies headache(s) Cardiovascular Cardiovascular: Denies diaphoresis and Reports pedal edema (no change) Gastrointestinal Gastrointestinal: Denies hematochezia, Denies constipation, Denies diarrhea and Denies vomiting Integumentary/Breasts Skin/Breast: Reports erythema and Reports rash (right ankle worse than usual, blistering) Neurologic Neurologic: Denies abnormal speech, Denies confusion, Denies headache(s), Reports localized weakness (right side, chronic, no change) and Denies convulsions Psychiatric Psychiatric: Denies confusion and Denies mood swings PFSH All Active Problems (Updated 04/24/24 @ 17:13 by John Singh) Recurrent apnea (Acute) Chest pain (Acute) Hypertensive emergency (Acute) Bilateral edema of lower extremity (Acute) Dyspnea (Acute) Chest pain (Acute) Right rotator cuff tear (Acute) Abnormal CT scan, kidney (Acute) Anxiety (Chronic) Medical non-compliance (Acute) Aragon esophagus (Acute) Opiate dependence (Chronic) managed on suboxone Medical History Obstructive sleep apnea Chronic venous insufficiency COPD (chronic obstructive pulmonary disease) Diabetic neuropathy Hx of deep venous thrombosis on Coumadin Diabetes mellitus Hypertension Cocaine abuse 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 S/P percutaneous endoscopic gastrostomy (PEG) tube placement History of ankle surgery S/P spinal surgery Family History Father No problems noted. Mother COPD (chronic obstructive pulmonary disease) Hypertension Diabetes Heart disease Sister Stroke Social History Smoking/Tobacco Use Status: Current every day Tobacco Type: cigarettes Smoking risk assessment performed?: Yes Alcohol Intake: never Drug use: Daily Substance use type: marijuana and crack/cocaine Caregiver/Support person: Yes Household members: friend(s) Housing: house Number of Children: 0 number of grandchildren: 1 current occupation: Disabled Pets and animals: Yes Pets and animals: cat(s) Current gender identity: male What type of physical activity do you participate in: none Do you feel safe at home: Yes Do you feel safe in your relationship?: Yes Additional Social history: Lives with ex- Vanessa, who is his caregiver. Lives in private home. Meds Allergies and Home Medications Allergies Allergy/AdvReac Type Severity Reaction Status Date / Time Penicillins AdvReac Severe Vomiting Verified 04/24/24 07:37 hydrocodone AdvReac Intermediate vomiting Verified 04/24/24 07:37 Home Medications ?Medication ?Instructions ?Recorded ?Confirmed ?Type esomeprazole magnesium 40 mg 40 mg PO DAILY 05/05/20 04/24/24 History capsule,delayed release (Nexium) aspirin 81 mg tablet 81 mg PO DAILY 08/03/20 04/24/24 History duloxetine 30 mg capsule,delayed 30 mg PO BID 08/03/20 04/24/24 History release acetaminophen 325 mg tablet 1,000 mg PO Q6H PRN 09/27/20 04/24/24 History (Tylenol) umeclidinium 62.5 mcg-vilanterol 1 ea inhalation DAILY 09/27/20 04/24/24 History 25 mcg/actuation powdr for inhalation (Anoro Ellipta) buprenorphine 4 mg-naloxone 1 mg 1 film sublingual DAILY 09/28/20 04/24/24 History sublingual film (Suboxone) albuterol sulfate 90 mcg/actuation 2 inh inhalation Q6H PRN 04/12/22 04/24/24 History aerosol inhaler dulaglutide 4.5 mg/0.5 mL 4.5 mg subcut QWEEK 04/12/22 04/24/24 History subcutaneous pen injector (Trulicity) cyanocobalamin (vitamin B-12) 1,000 mcg PO DAILY 03/06/23 04/24/24 History 1,000 mcg tablet (Vitamin B-12) amlodipine 2.5 mg tablet 2.5 mg PO DAILY 09/30/23 04/24/24 History gabapentin 600 mg tablet 600 mg PO TID 09/30/23 04/24/24 History beclomethasone dipropionate 80 1 inh inhalation BID PRN 12/27/23 04/24/24 History mcg/actuation HFA breath activated aerosol (Qvar RediHaler) diltiazem HCl 60 mg tablet 60 mg PO BID #90 tabs 12/29/23 04/24/24 Rx (Cardizem) furosemide 40 mg tablet (Lasix) 40 mg PO DAILY #0 tabs 12/29/23 04/24/24 Rx Lactobacillus acidophilus 500 500 mmu cells PO TID #30 caps 02/09/24 04/24/24 Rx million cell capsule Exam Narrative Exam Narrative: GEN: Alert and oriented x 4, but frequently episodically nodding off, pleasant and cooperative, gives a vague history. No acute distress at rest. HEENT: Head atraumatic. Conjunctiva clear, no icterus. PEERL, pupils mid- sized, EOMI. no rhinorrhea. MMM, OP benign. Neck is supple with no masses or lymphadenopathy, trachea midline LUNGS: CTAB with normal effort CV: RRR with no murmurs, gallops, or rubs. ABD: active bowel sounds, soft, nontender and nondistended. No masses. EXT: no cyanosis, clubbing. Trace homa edema MSK: No joint redness or swelling NEURO: CN 2-12 grossly intact x right facial droop, moves 4 extremities but 4/5 right hand/arm vs left. Normal speech and coordination. No tremor SKIN: No rashes except red venous stasis dermatitis homa, more deep red and blistering on left medial ankle/bruno PSYCH: normal mood and affect, poor memory, normal thought process but cognitive processing appears limited Results Imaging Chest x-ray: report reviewed (No acute pulmonary findings on this single AP portable view of the chest.) and image reviewed EKG: report reviewed and image reviewed (NSR, RBBB (not new) with new (since 04/08/24) T wave inversion lead V1-V2, borderline ST depression across precordium. After pain resolved, ST depressions not notable, T-waves more flat (14:32)) Labs 04/24/24 07:39 04/24/24 07:39 Labs: Laboratory Results - last 24 hr 04/24/24 04/24/24 04/24/24 07:39 09:18 11:00 WBC 6.98 RBC 5.80 H Hgb 15.3 Hct 48.2 MCV 83 MCH 26.4 L MCHC 31.7 L RDW 14.3 H Plt Count 287 MPV 9.2 Immature Gran % 0.1 Neutrophils % 63.3 Lymphocytes % 24.2 Monocytes % 7.9 Eosinophils % 3.6 Basophils % 0.9 Nucleated RBC % 0.0 Absolute Neutrophils 4.42 Absolute Lymphocytes 1.69 Absolute Monocytes 0.55 Absolute Eosinophils 0.25 Absolute Basophils 0.06 PT 9.9 INR 1.0 APTT 25.4 D-Dimer 327 Sodium 142 Potassium 4.1 Chloride 103 Carbon Dioxide 32.5 H Anion Gap 6.5 BUN 27 H Creatinine 1.5 H Est GFR (CKD-EPI 2020) 53.63 Glucose 139 H Calcium 9.9 Total Bilirubin 0.26 AST 8 L ALT 16 Alkaline Phosphatase 77 Troponin I 13 12 13 NT-Pro-B Natriuret Pep 171 Total Protein 8.3 H Albumin 3.7 04/24/24 14:58 WBC RBC Hgb Hct MCV MCH MCHC RDW Plt Count MPV Immature Gran % Neutrophils % Lymphocytes % Monocytes % Eosinophils % Basophils % Nucleated RBC % Absolute Neutrophils Absolute Lymphocytes Absolute Monocytes Absolute Eosinophils Absolute Basophils PT INR APTT D-Dimer Sodium Potassium Chloride Carbon Dioxide Anion Gap BUN Creatinine Est GFR (CKD-EPI 2020) Glucose Calcium Total Bilirubin AST ALT Alkaline Phosphatase Troponin I 14 NT-Pro-B Natriuret Pep Total Protein Albumin Last Vital Signs Temp 36.4 C L 04/24/24 15:58 Pulse 54 L 04/24/24 15:21 Resp 14 04/24/24 15:21 BP 190/109 H 04/24/24 15:21 Pulse Ox 97 04/24/24 15:21 Time Spent Time spent with Patient: >75 minutes Time was spent: preparing to see the patient(eg.review tests), obtaining and/or reviewing separately otained hiistory, ordering medications,tests, procedures, referring, communicating with other health medical care manager, indepentently interpreting results, counseling the patient and care coordination
[2024-04-24] MEDS: Spironolactone 25 MG TAB PO (17:03)
[2024-04-24] MEDS: Enoxaparin 40 MG/0.4 ML SYR SC (17:03)
[2024-04-24] MEDS: ceFAZolin 1 GM/50 ML BAG IVPB (19:24)
[2024-04-24] MEDS: Normal Saline Flush 10 ML SYR IVP (19:24)
[2024-04-24] MEDS: Gabapentin 400 MG CAP PO (21:37)
[2024-04-24] MEDS: DULoxetine 30 MG CAP PO (21:37)
[2024-04-25] VITALS (103 sets, daily range): BP systolic 156–233; BP diastolic 69–191; PULSE 43–92; RESP 12–37; TEMP 36.2–37.2; O2SAT 85–96
[2024-04-25 00:30] LABS: *AMPHETAMINES SCREEN URINE Negative (Negative); *BARBITURATES SCREEN URINE Negative (Negative); *BENZODIAZEPINES SCREEN URINE Negative (Negative); Cannabinoids THC Positive (Negative); Cocaine Screen,Urine Positive (Negative); METHADONE URINE SCREEN Negative (Negative); OPIATES URINE SCREEN Negative (Negative)
[2024-04-25 00:35] LABS: Tricyclic Antidepressants Negative (Negative)
[2024-04-25] MEDS: LORazepam 2 MG/ML VIAL 1 MG IVP (00:46)
[2024-04-25] MEDS: Tiotropium/Olodaterol 10 PUFF INHALER 2 PUFF IH (08:44)
[2024-04-25] MEDS: Buprenorphine/Naloxone 4 mg/1 mg FILM 1 EACH SL (09:03)
[2024-04-25] MEDS: Lactobacillus Acidophilus CAP 1 CAP PO ×3 (09:03→20:44)
[2024-04-25] MEDS: DULoxetine 30 MG CAP PO ×2 (09:03→20:44)
[2024-04-25] MEDS: Cyanocobalamin 500 MCG TAB 1000 MCG PO (09:03)
[2024-04-25] MEDS: Esomeprazole 40 MG CAPCR PO (09:03)
[2024-04-25] MEDS: Spironolactone 25 MG TAB PO (09:04)
[2024-04-25] MEDS: Furosemide 40 MG TAB PO (09:04)
[2024-04-25] MEDS: amLODIPine 2.5 MG TAB PO ×2 (09:04→11:10)
[2024-04-25] MEDS: Gabapentin 400 MG CAP PO ×3 (09:04→20:41)
[2024-04-25] MEDS: Aspirin E.C. 81 MG TABEC PO (09:05)
--- NOTE | 2024-04-25 09:07 | PDOC.CMIN ---
Date of service: 04/25/24 Time of Service: 09:07 Care Management Initial Assmt Initial Assessment Reason for Hospitalization: hypertension, chest pain Functional Status/Living Situation Patient Presentation: Mio presented to the ED ysterday morning with c/o chest pain. Symptoms present for 3 days. Increased yesterday morning and EMS was called. EMS gave full dose aspirin and nitroglycerin, and pain went from 10 to 3. He was on a nitroglycerin drip for a while, but has been weaned off. BPs are still elevated. Mio is s/p CVA and lives with his ex- who is his [employer] caregiver through his [employer] program. Giovanny was sitting up in the bed, dosing, when CM met with him. He quickly roused and was very pleasant. He stated that he is feeling better, he was really scared by his symptoms yesterday. Mio asked me to call his , but 3 attempts and unable to leave message. CM spoke with Aminah Roach who is Giovanny's [facility] Senior Python Developer. She feels that his career consultant does a nice job with Giovanny, and does not really have any concerns, but wanted to check in. Town of Residence: [place] Resides with: Spouse (Arline, who is also his caregiver) Significant Other/Family: Local (ex-, Arline) Caregiver/Guardian: Arline Vanegas, ex- Natural Supports: Arline [employer] on [employer] JAVIER Burr Employment Status: Disabled Instrumental Activities of Daily Living (ADLs): Requires support Medications Medication Management: No Issues/Barriers identified Physical Functioning/Mobility Assistive Device: uses a walker Advance Directives Advance Directives: Do you have an Advance Directive: Y 10/10/19 10:02 AD On File at [facility]: N 06/07/12 08:23 Date Asked 04/24/24 04/24/24 07:41 AD Date Reviewed COLST On File at [facility] COLST Date Scanned Code Status Resuscitation Status Full Code Insurance Coverage/Financial Issues Insurance: [place] medicaid Care Team Visit Care Team Role Provider Type Evon Howard MD Primary Care Provider [facility] STAFF PHYSICIAN Rohan Liao DO Emergency Provider [facility] STAFF PHYSICIAN John Singh Admit Provider [facility] STAFF PHYSICIAN Attending Provider Discharge Potential Discharge Needs: PCP F/U Appt Anticipated Barriers to Discharge: None Identified Patient/Family Education Needs: Review discharge instructions, discuss Ask Me Three Transportation: RCT (Arline's car is not running) RCT Transportation: Private vechicle Plan: Anticipate that Mio will be discharged home once medically stable. He will f/u with his PCP and continue per his plan of care. Mio will need transportation from [facility]. Giovanny will continue with his paid [employer] caregiver. CM will continue to follow and update the plan as needed. Social Determinants of Health Screening Social Determinants of Health last assessed: 04/25/24 Will the Patient Participate in the Screening?: Yes Do you worry about having a steady place to live?: no Problems where you live: no known problems In the past 12 months, have you had to go without electric, gas, oil or water in your home?: no Have you or anyone in your house had to go without enough food to eat?: no Has lack of transportation kept you from medical appointments or from doing things needed for daily living?: no Has anyone in your life made you feel unsafe or unsupported?: no How hard is it for you to pay for the very basics like food, housing, medical care, and heating? Would you say it is:: Not hard at all Do you want help finding or keeping work or a job?: I do not need or want help If for any reason you need help with day-to-day activities such as bathing, preparing meals, shopping, managing finances, etc., do you get the help you need?: I don?t need any help How often do you feel lonely or isolated from those around you?: Never Do you speak a language other than [place] at home?: No Does the patient want assistance with any of the above?: No PFSH All Active Problems (Updated 04/24/24 @ 17:13 by John Singh) Recurrent apnea (Acute) Chest pain (Acute) Hypertensive emergency (Acute) Bilateral edema of lower extremity (Acute) Dyspnea (Acute) Chest pain (Acute) Right rotator cuff tear (Acute) Abnormal CT scan, kidney (Acute) Anxiety (Chronic) Medical non-compliance (Acute) Aragon esophagus (Acute) Opiate dependence (Chronic) managed on suboxone Medical History Obstructive sleep apnea Chronic venous insufficiency COPD (chronic obstructive pulmonary disease) Diabetic neuropathy Hx of deep venous thrombosis on Coumadin Diabetes mellitus Hypertension Cocaine abuse 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 S/P percutaneous endoscopic gastrostomy (PEG) tube placement History of ankle surgery S/P spinal surgery Family History Father No problems noted. Mother COPD (chronic obstructive pulmonary disease) Hypertension Diabetes Heart disease Sister Stroke Social History Smoking/Tobacco Use Status: Current every day Tobacco Type: cigarettes Smoking risk assessment performed?: Yes Alcohol Intake: never Drug use: Daily Substance use type: marijuana and crack/cocaine Caregiver/Support person: Yes Household members: friend(s) Housing: house Number of Children: 0 number of grandchildren: 1 current occupation: Disabled Pets and animals: Yes Pets and animals: cat(s) Current gender identity: male What type of physical activity do you participate in: none Do you feel safe at home: Yes Do you feel safe in your relationship?: Yes Additional Social history: Lives with ex- Vanessa, who is his caregiver. Lives in private home. Readmission Within the Past 30 Days Yes or No: No
--- NOTE | 2024-04-25 10:29 | W.PM.PROGNOT ---
Date of Service Date of service: 04/25/24 Time of Service: 09:10 Assessment and Plan Assessment and plan (1) Chest pain: Status: Acute Assessment and plan: Chest pain in the setting of severe hypertension. Very concerning for angina, EKG changes possibly c/w ischemia, but negative troponins x 4. EKGs reviewed with [facility] cardiology, felt secondary to hypertensive emergency Continues chest pain free since evening of 04/24, even off drip. At risk for PE but responds and resolved with NTG, no tachycardia, not c/w this diagnosis. (2) Hypertensive emergency: Status: Acute Assessment and plan: Improved on NTG drip, now off I reviewed PCP record, corrected med rec, schedule his medications. He does not appears to be in withdrawal. He has a h/o poor compliance, but denies missing medications. H/o cocaine use, cocaine again positive, which is likely contributing, though BP still high. Adjusting medication, increase amlodipine and add low dose losartan. (3) Opiate dependence: Status: Chronic Assessment and plan: continue buprenorphine. I am concerned he is still using fentanyl given his presentation yesterday nodding off. (4) Recurrent apnea: Status: Acute Assessment and plan: He is nodding off and have apneic spells followed by bradycardia He may have taken sedating drug in cannibis, such as fentanyl Gabapentin may be contributing with increase in Cr, cut dose to 400mg. This also causes leg edema. Does not tolerate CPAP. (5) Bradycardia: Status: Resolved Assessment and plan: Associated with above. Better today. PCP recently stopped diltiazem because of this, possible he was still taking? Can come out of unit. (6) Cellulitis of right lower extremity: Status: Resolved Assessment and plan: I was concerned for cellulitis in area of venous stasis, gave him one dose of cefazolin, which he tolerated, but it doesn't really appear infected. Will hold off on more antibiotics and observe. (7) DVT prophylaxis: Status: Inactive Assessment and plan: enoxaparin Subjective Subjective Patient reports: no new complaints, tolerating a regular diet and voiding w/o difficulty; denies nausea, vomiting, shortness of breath or fever Interval history since last seen: he slept okay last night. He feels a little groggy but no headache. No recurrence of chest pain. Exam Narrative Exam Narrative: GEN: Alert and oriented x 4, no longer nodding off. No acute distress at rest. LUNGS: CTAB with normal effort CV: RRR with no murmurs, gallops, or rubs. ABD: active bowel sounds, soft, nontender and nondistended. No masses. EXT: no cyanosis, clubbing. Trace tanner edema. Tanner red venous stasis dermatitis, roughly symmetric, closed blister on right medial NEURO: CN 2-12 grossly intact x right facial droop, moves 4 extremities but 4/5 right hand/arm vs left. Normal speech and coordination. No tremor PSYCH: normal mood and affect, poor memory, normal thought process but cognitive processing appears limited Objective Last Vital Signs Temp 36.2 C L 04/25/24 07:30 Pulse 86 04/25/24 09:13 Resp 37 H 04/25/24 09:13 BP 214/110 H 04/25/24 09:01 Pulse Ox 96 04/25/24 09:13 Laboratory Results - last 24 hr 04/24/24 04/24/24 04/24/24 11:00 14:58 21:00 Troponin I 13 14 Urine Opiates Screen Negative Urine Methadone Screen Negative Ur Barbiturates Screen Negative Ur Tricyclics Screen Negative Ur Amphetamines Screen Negative U Benzodiazepines Scrn Negative Urine Cocaine Screen Positive A Ur THC Screen Positive A Time Spent with Patient Time Spent with Patient: 35-49 minutes Time was spent: preparing to see the patient(eg.review tests), obtaining and/or reviewing separately otained hiistory, ordering medications,tests, procedures, referring, communicating with other health coronary care unit nurse, indepentently interpreting results, counseling the patient and care coordination
--- NOTE | 2024-04-25 11:38 | W.NUTRFU ---
Date of service: 04/25/24 Time of Service: 11:39 Nutrition Note NOTE: 58yo male admitted after having CP. Being treated for HTN emergency and looking into his chest pain. Hx for opiate dependence, barrtett esophagus. Ordered appropriately for heart healthy diet - normal consistencies. Weight stable x 1 year. refused breakfast this morning. Lytes wnl, high BUN/Cr (27/1.5 respectively), GFR 53 today last a1c was 5.9% last december. Total protein lab 8.3 and albumin 3.7 yesterday. fasting glucose of 139 yesterday, pending today. 124 FS at breakfast today. current BMI wnl. Patient currently assessed as lower nutrition risk. no intervention planned at this time. Will monitor intake, labs/glucose, weight Time Spent in Nutritional Counseling and Treatment: 0
[2024-04-25 13:22] LABS: BUN 17 mg/dL (7-18); CREATININE 1.2 mg/dL (0.70-1.30); Calcium 9.1 mg/dL (8.5-10.1); Chloride 105 mmol/L (98-107); Glucose 103 mg/dL (74-106); Potassium 4.1 mmol/L (3.5-5.1); Sodium 140 mmol/L (136-145)
[2024-04-25] MEDS: Enoxaparin 40 MG/0.4 ML SYR SC (17:57)
[2024-04-25] MEDS: Losartan 25 MG TAB PO (20:44)
[2024-04-25] MEDS: Acetaminophen 500 MG TAB 1000 MG PO (20:45)
[2024-04-25] MEDS: Normal Saline Flush 10 ML SYR IVP (20:45)
--- NOTE | 2024-04-26 01:10 | W.PC.ACHO ---
Registration Status: Primary Language: Preferred Language: ED Information & Data Chief Complaint Chest Pain 04/24/24 08:13 Triage Note CP started this am at approx 04/24/24 07:18 0600, but has been intermittent over the past three days w/the ambulance going out to assess and pt. refused transport at that time. Patient c/o substernal CP, nonradiating. Dx with flu last week. States having some Chest heaviness. Medical / Surgical History (Last Reviewed 04/07/24 @ 22:20 by Arya Lei MD) Obstructive sleep apnea Chronic venous insufficiency COPD (chronic obstructive pulmonary disease) Diabetic neuropathy Hx of deep venous thrombosis Diabetes mellitus Hypertension Cocaine abuse Cerebral septic emboli GI bleed Osteomyelitis of left fibula Endocarditis Depression MSSA (methicillin susceptible Staphylococcus aureus) septicemia (Last Reviewed 04/07/24 @ 22:20 by Arya Lei MD) S/P endoscopy H/O aortic valve replacement S/P hardware removal S/P percutaneous endoscopic gastrostomy (PEG) tube placement History of ankle surgery S/P spinal surgery Most Recent Vital Signs Temperature 36.4 C L 04/25/24 23:37 Temperature Source Tympanic 04/25/24 23:37 Pulse 77 04/25/24 23:37 Pulse 61 04/25/24 22:02 Respiratory Rate 19 04/25/24 23:37 Respiratory Effort Normal, Non-Labored 04/24/24 07:45 Respiratory Depth Normal 04/24/24 07:45 Respiratory Pattern Normal 04/24/24 07:45 Blood Pressure 170/111 H 04/25/24 23:37 Blood Pressure Mean 119 04/25/24 22:02 Blood Pressure Position Supine 04/24/24 15:58 Pulse Oximetry 95 04/25/24 23:37 Oxygen Delivery Method Room Air 04/25/24 23:37 Oxygen Flow Rate 0 04/25/24 23:37 Fraction of Inspired Oxygen (FIO2) 21 04/24/24 18:41 Pain Level 0 04/25/24 23:37 Comment map is 128 04/25/24 23:37 Allergies Penicillins Adverse Reaction (Severe, Verified 04/24/24 07:37) Vomiting hydrocodone Adverse Reaction (Intermediate, Verified 04/24/24 07:37) vomiting Precautions Isolation Standard precaution 04/24/24 07:35 Active Medications Generic Name Dose Route Start Last Admin Trade Name Freq PRN Reason Stop Dose Admin Acetaminophen 1,000 mg 04/24/24 13:17 04/25/24 20:45 Acetaminophen 500 Mg Tab PO 1,000 mg Q6H PRN PRN Administration Acidophilus/Pectin 1 cap 04/24/24 14:00 04/25/24 20:44 Lactobacillus Acidophilus Cap PO 1 cap TID HAMLET Administration Aspirin 81 mg 04/25/24 08:30 04/25/24 09:05 Aspirin E.C. 81 Mg Tabec PO 81 mg DAILY HAMLET Administration Buprenorphine/Naloxone 1 each 04/25/24 08:30 04/25/24 09:03 Buprenorphine/Naloxone 4 Mg/1 Mg Film SL 1 each DAILY HAMLET Administration Cyanocobalamin 1,000 mcg 04/25/24 08:30 04/25/24 09:03 Cyanocobalamin 500 Mcg Tab PO 1,000 mcg DAILY HAMLET Administration Duloxetine HCl 30 mg 04/24/24 20:00 04/25/24 20:44 Duloxetine 30 Mg Cap PO 30 mg BID HAMLET Administration Enoxaparin Sodium 40 mg 04/24/24 18:00 04/25/24 17:57 Enoxaparin 40 Mg/0.4 Ml Syr SC 40 mg Q24H HAMLET Administration Esomeprazole Magnesium 40 mg 04/25/24 07:30 04/25/24 09:03 Esomeprazole 40 Mg Capcr PO 40 mg DAILY@0730 HAMLET Administration Furosemide 40 mg 04/25/24 08:30 04/25/24 09:04 Furosemide 40 Mg Tab PO 40 mg DAILY HAMLET Administration Gabapentin 400 mg 04/24/24 20:00 04/25/24 20:41 Gabapentin 400 Mg Cap PO 400 mg TID HAMLET Administration Nitroglycerin/Dextrose 50 mg in 250 mls @ 30 mls/hr 04/24/24 09:15 04/24/24 15:30 IV Infused [facility] Titration Protocol 100 MCG/MIN Losartan Potassium 25 mg 04/25/24 20:00 04/25/24 20:44 Losartan 25 Mg Tab PO 25 mg BID HAMLET Administration Mometasone Furoate 1 puff 04/24/24 20:00 04/25/24 20:15 Mometasone 220 Mcg 14 Dose Inhaler IH Not Given QPM HAMLET Sodium Chloride 0 ml 04/24/24 15:45 04/25/24 20:45 Normal Saline Flush 10 Ml Syr IVP 40 ml PRN PRN Administration Spironolactone 25 mg 04/25/24 08:30 04/25/24 09:04 Spironolactone 25 Mg Tab PO 25 mg DAILY HAMLET Administration Tiotropium [place]/Olodaterol 2 puff 04/25/24 08:30 04/25/24 08:44 Tiotropium/Olodaterol 10 Puff Inhaler IH 2 inh DAILY HAMLET Administration IV IV Catheter Type [Right Saline Lock Antecubital] IV Catheter Type [Left Saline Lock Antecubital] IV Catheter Gauge [Right 18 Antecubital] IV Catheter Gauge [Left 18 Antecubital] Diagnostics 04/25/24 Range/Units 12:42 Sodium 140 (136-145) mmol/L Potassium 4.1 (3.5-5.1) mmol/L Chloride 105 (98-107) mmol/L Carbon Dioxide 27.0 (21.0-32.0) mmol/L Anion Gap 8.0 (3-11) mmol/L BUN 17 (7-18) mg/dL Creatinine 1.2 (0.70-1.30) mg/dL Est GFR (CKD-EPI 2020) 70.10 (mL/min/1.73m2) Glucose 103 (74-106) mg/dL Calcium 9.1 (8.5-10.1) mg/dL [id number] Documentation Fingerstick Glucose Start: 04/24/24 14:51 Freq: Status: Complete Protocol: Activity Type Activity Date Activity User E-sign Co-sign Detail Recorded Client Recorded Date Recorded By Document 04/24/24 14:50 BKG DAEMON(5) NVT-BG05 04/24/24 14:51 BKG DAEMON(6) Fingerstick Glucose Start: 04/25/24 08:49 Freq: Status: Active Protocol: Activity Type Activity Date Activity User E-sign Co-sign Detail Recorded Client Recorded Date Recorded By Document 04/25/24 08:48 BKG DAEMON(7) NVT-BG05 04/25/24 08:49 BKG DAEMON(8) Intake and Output - 24 Hour Total 04/24/24 07:11 thru 04/25/24 22:41 Intake Total 761.625 Output Total 3000 Balance -2238.375 Weight 80.5 kg Intake: IV 221.625 Oral 540 Output: Urine 3000 Other: Urine Color Light Annalisa Urine Appearance Clear Urine Odor Normal Stool Size Large Stool Characteristics [place] Risk Assessment History of Falls Previous History 04/24/24 15:58 Contributing Factors Unstable,Impairments 04/24/24 15:58 Ambulatory Aids Uses ambulatory device + 04/24/24 15:58 Tubes/Lines With any additional score 04/24/24 15:58 Gait Evaluation W/any additional score 04/24/24 15:58 Cognition Cognitive impairment 04/24/24 15:58 Fall Total Score 106 04/24/24 15:58 Level of Risk Maximum Risk 04/24/24 15:58 Problems (Last Reviewed 04/07/24 @ 22:20 by Arya Lei MD) Recurrent apnea (Acute) Chest pain (Acute) Hypertensive emergency (Acute) Chest pain (Acute) Opiate dependence (Chronic) v v v v v v v v v Sending and/or Receiving Nurses: Please use comment section below to note any information pertinent to the patient hand-off not included above. Information / Comments: pt admitted for chest pain/hypertension. pt hx of CVA. 1 assist with walker or standby for pivoting. bilat 18g IV. A+Ox4. Report received from: carlos JACQUES
[2024-04-26 03:18] VITALS: BP 170/99; PULSE 86; RESP 18; TEMP 36.5; O2SAT 94
[2024-04-26 07:24] VITALS: BP 152/101; PULSE 80; RESP 16; TEMP 36.4; O2SAT 94
[2024-04-26] MEDS: Esomeprazole 40 MG CAPCR PO (07:34)
[2024-04-26] MEDS: DULoxetine 30 MG CAP PO (07:34)
[2024-04-26] MEDS: Lactobacillus Acidophilus CAP 1 CAP PO (07:34)
[2024-04-26] MEDS: Buprenorphine/Naloxone 4 mg/1 mg FILM 1 EACH SL (07:34)
[2024-04-26] MEDS: Furosemide 40 MG TAB PO (07:34)
[2024-04-26] MEDS: Losartan 25 MG TAB PO (07:35)
[2024-04-26] MEDS: Aspirin E.C. 81 MG TABEC PO (07:35)
[2024-04-26] MEDS: Cyanocobalamin 500 MCG TAB 1000 MCG PO (07:35)
[2024-04-26] MEDS: amLODIPine 5 MG TAB PO (07:35)
[2024-04-26] MEDS: Spironolactone 25 MG TAB PO (07:35)
[2024-04-26] MEDS: Normal Saline Flush 10 ML SYR IVP (07:36)
[2024-04-26 07:42] VITALS: PULSE 90
[2024-04-26] MEDS: Gabapentin 400 MG CAP PO (09:31)
[2024-04-26 11:09] VITALS: BP 158/116; PULSE 83; RESP 16; TEMP 36.7; O2SAT 93
--- NOTE | 2024-04-26 11:40 | DSE_ITS ---
Date of service: 04/26/24 Time of Service: 11:40 DS: Diagnosis Discharge Diagnosis (1) Chest pain: Status: Acute (2) Hypertensive emergency: Status: Acute (3) Opiate dependence: Status: Chronic (4) Recurrent apnea: Status: Acute (5) Bradycardia: Status: Resolved (6) Cellulitis of right lower extremity: Status: Resolved (7) DVT prophylaxis: Status: Inactive Discharge Plan Disposition Patient Disposition: Home Condition: Stable Discharge Details Reason For Visit: Hypertensive emergency,chest pain Admit Date/Time: 04/24/24 13:13 Admit Provider: John Singh Attending Provider: John Singh Primary Care Provider: Evon Howard [facility] Course Hospital Course: History of Present Illness History of Present Illness Chief Complaint: chest pain Narrative: 58 yo M with history of poorly controlled hypertension, opioid use disorder and cocaine use on buprenorphine, CVA with right hemiparesis, type 2 DM with last A1c 5.9% 12/2023, aortic valve replacement after MSSA endocarditis a/w IVDU, h/o DVT who presented with severe chest pain for the past 3 days. He doesn't remember the first time it happened. The pain is a pressure, left mid chest, like someone standing on it. No radiation to neck/arm/back. It is associated with dizziness, diaphoresis, heart pounding, and shortness of breath. It is not a/w nausea. Lasts at least a few minutes to hours, was persistent this morning and called EMS. Was 10/10, down to 3/10 with NTG, resolved since on NTG drip. Of note his diltiazem was recently stopped by his PCP due to recurrent episodes of bradycardia. It was replaced with spironolactone 25mg. No other recent med ication changes. He states he is taking his medications, but he can't name them all. Denies cocaine or other drug use, just MJ. He has been very tired but not sleeping well over the past few days. He did have the flu recently and still has some cough and runny nose. On the morning of the , pt denied any chest pain, sob, headache and asked to be discharged home. Labs reviewed and fairly bland CXR negative for acute disease Prescription for aldactone sent to pharmacy Home Meds and New Rx's Prescriptions: New spironolactone 25 mg Tablet 25 mg PO DAILY Qty: 30 0RF Continued esomeprazole magnesium [Nexium] 40 mg capsule,delayed release(DR/EC) 40 mg PO DAILY Trulicity 4.5 mg/0.5 mL pen injector 4.5 mg subcut QWEEK Patient Comments: takes on monday albuterol sulfate 90 mcg/actuation HFA aerosol inhaler 2 inh inhalation Q6H PRN aspirin 81 mg Tablet 81 mg PO DAILY duloxetine 30 mg Capsule,Delayed Release(Dr/Ec) 30 mg PO BID acetaminophen [Tylenol] 325 mg tablet 1,000 mg PO Q6H PRN Anoro Ellipta 62.5-25 mcg/actuation blister with device 1 ea INHALATION DAILY Patient Comments: INHALE ONE PUFF BY MOUTH EVERY DAY buprenorphine-naloxone [Suboxone] 4-1 mg film 1 film sublingual DAILY Patient Comments: PLACE ONE FILM UNDER THE TONGUE EVERY DAY cyanocobalamin (vitamin B-12) [Vitamin B-12] 1,000 mcg tablet 1,000 mcg PO DAILY Qvar RediHaler 80 mcg/actuation HFA aerosol breath activated 1 inh INHALATION BID PRN Patient Comments: INHALE ONE PUFF BY MOUTH TWICE A DAY NEEDED diltiazem HCl [Cardizem] 60 mg Tablet 60 mg PO BID Qty: 90 0RF furosemide [Lasix] 40 mg Tablet 40 mg PO DAILY Qty: 0 0RF amlodipine 2.5 mg tablet 2.5 mg PO DAILY Patient Comments: TAKE ONE TABLET BY MOUTH EVERY DAY gabapentin 600 mg tablet 600 mg PO TID Patient Comments: TAKE ONE TABLET BY MOUTH THREE TIMES A DAY Lactobacillus acidophilus 500 million cell Capsule 500 mmu cells PO TID Qty: 30 0RF Discharge Instructions Referrals: Yulia Garibay [Emergency Nurse] - Activity:: Activity as Tolerated Equipment/Supplies:: No Equipment Needed Diet:: As Tolerated Discharge Orders Discharge Orders: Discharge Order (Routine); Ordered 04/26/24 Ordered By: Arya Palomares DS: Summary Time Spent with Patient providing and/or coordinating discharge services: Greater than 30 minutes Status at Discharge Functional status at discharge: independent ambulation Overall status at discharge: patient is back to baseline Mental Status: mental status grossly normal Speech and Movement: speech and movement normal Mood: congruent mood Affect: normal affect Quality:SDOH Health Related Social Needs: No Data to Display Exam Narrative Exam Narrative: GEN: Alert and oriented x 4, no longer nodding off. No acute distress at rest. LUNGS: CTAB with normal effort CV: RRR with no murmurs, gallops, or rubs. ABD: active bowel sounds, soft, nontender and nondistended. No masses. EXT: no cyanosis, clubbing. Trace homa edema. Homa red venous stasis dermatitis, roughly symmetric, closed blister on right medial NEURO: CN 2-12 grossly intact x right facial droop, moves 4 extremities but 4/5 right hand/arm vs left. Normal speech and coordination. No tremor PSYCH: normal mood and affect, poor memory, normal thought process but cognitive processing appears limited Psych Mental Status: mental status grossly normal Speech and Movement: speech and movement normal Mood: congruent mood Affect: normal affect DS: Data Vitals/I&O Vitals and I&O: Vital Signs Temperature 36.7 C 04/26/24 11:09 Temperature Source Temporal Artery Scan 04/26/24 11:09 Pulse 83 04/26/24 11:09 Pulse 61 04/25/24 22:02 Respiratory Rate 16 04/26/24 11:09 Respiratory Effort Normal, Non-Labored 04/24/24 07:45 Respiratory Depth Normal 04/24/24 07:45 Respiratory Pattern Normal 04/24/24 07:45 Blood Pressure 158/116 H 04/26/24 11:09 Blood Pressure Mean 119 04/25/24 22:02 Blood Pressure Position Supine 04/24/24 15:58 Pulse Oximetry 93 04/26/24 11:09 Oxygen Delivery Method Room Air 04/26/24 11:09 Oxygen Flow Rate 0 04/26/24 11:09 Fraction of Inspired Oxygen (FIO2) 21 04/24/24 18:41 Pain Level 0 04/26/24 11:09 Comment RN notified of bp 04/26/24 11:09 Intake & Output 04/25/24 04/25/24 04/26/24 11:59 23:59 11:59 Intake Total 150 / 610 460 / 610 10 10 Output Total 1500 / 2350 850 / 2350 300 / 300 Balance -1350 / -1740 -390 / -1740 -290 / -290 Weight 80.5 kg 76 kg Intake: IV 50 / 70 20 / 70 10 / 10 Oral 100 / 540 440 / 540 Output: Urine 1500 / 2350 850 / 2350 300 / 300 Other: Urine Color Yellow Light Annalisa Yellow Urine Appearance Clear Clear Urine Odor Normal Normal Stool Size Large Stool Characteristics Hard Brown Data Completed and Pending Labs on day of discharge: Labs from last 24 hours 04/25/24 12:42 Sodium 140 Potassium 4.1 Chloride 105 Carbon Dioxide 27.0 Anion Gap 8.0 BUN 17 Creatinine 1.2 Est GFR (CKD-EPI 2020) 70.10 Glucose 103 Calcium 9.1 PFSH All Active Problems (Updated 04/24/24 @ 17:13 by John Singh) Recurrent apnea (Acute) Chest pain (Acute) Hypertensive emergency (Acute) Bilateral edema of lower extremity (Acute) Dyspnea (Acute) Chest pain (Acute) Right rotator cuff tear (Acute) Abnormal CT scan, kidney (Acute) Anxiety (Chronic) Medical non-compliance (Acute) [place] esophagus (Acute) Opiate dependence (Chronic) managed on suboxone Medical History Obstructive sleep apnea Chronic venous insufficiency COPD (chronic obstructive pulmonary disease) Diabetic neuropathy Hx of deep venous thrombosis on Coumadin Diabetes mellitus Hypertension Cocaine abuse 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 [place] - 08/21/2018 - Magna Ease 25 mm S/P hardware removal L ankle. S/P percutaneous endoscopic gastrostomy (PEG) tube placement History of ankle surgery S/P spinal surgery Family History Father No problems noted. Mother COPD (chronic obstructive pulmonary disease) Hypertension Diabetes Heart disease Sister Stroke Social History Smoking/Tobacco Use Status: Current every day Tobacco Type: cigarettes Smoking risk assessment performed?: Yes Alcohol Intake: never Drug use: Daily Substance use type: marijuana and crack/cocaine Caregiver/Support person: Yes Household members: friend(s) Housing: house Number of Children: 0 number of grandchildren: 1 current occupation: Disabled Pets and animals: Yes Pets and animals: cat(s) Current gender identity: male What type of physical activity do you participate in: none Do you feel safe at home: Yes Do you feel safe in your relationship?: Yes Additional Social history: Lives with ex- Vanessa, who is his caregiver. Lives in private home. Time Spent with Patient Time Spent with Patient: 45-69 minutes Time was spent: preparing to see the patient(eg.review tests), obtaining and/or reviewing separately otained hiistory, ordering medications,tests, procedures, referring, communicating with other health daycare worker, indepentently interpreting results, counseling the patient and care coordination
--- NOTE | 2024-04-26 14:02 | PDOC.CMDIS ---
Date of service: 04/26/24 Time of Service: 14:02 LACE Index Scoring Tool Questions: Length of Stay (in days): 2 Was the patient admitted via the E.D.?: Yes E.D. Visits: 5 Answers: Total Score: 9 Risk of Readmission: Low Risk Care Management Discharge Plan Reason for Hospitalization: hypertensive emergency, chest pain Discharge Plan: Mio returned to his caregiver's home today with no new services. His caregiver transported him via private vehicle. He will follow up with his PCP and discharge plan of care. He is happy to be going home. Patient/Family Education Needs: Review discharge instructions and limitations, discussion of self care needs including ask me three. SDOH Health Related Social Needs: No Data to Display
== END 2024-04-26 13:19 | disposition home or self-care (01) | DRG 305 ==
LOC: ER 15:08 → ICU 15:31 → MS 04-25 23:38
PROVIDERS: Admitting Provider Family Medicine; Emergency Provider Student in an Organized Health Care Education/Training Program; PCP Family Medicine; Responsible Provider Family Medicine; Visit Provider Family Medicine
DX: I16.1 Hypertensive emergency (principal); F11.20 Opioid dependence, uncomplicated; L03.115 Cellulitis of right lower limb; I69.351 Hemiplegia and hemiparesis following cerebral infarction affecting right dominant side; R07.89 Other chest pain; R06.81 Apnea, not elsewhere classified; R00.1 Bradycardia, unspecified; I10 Essential (primary) hypertension; F12.90 Cannabis use, unspecified, uncomplicated; I69.392 Facial weakness following cerebral infarction; I87.2 Venous insufficiency (chronic) (peripheral); E11.42 Type 2 diabetes mellitus with diabetic polyneuropathy; J44.9 Chronic obstructive pulmonary disease, unspecified; Z86.718 Personal history of other venous thrombosis and embolism; Z79.01 Long term (current) use of anticoagulants; F14.10 Cocaine abuse, uncomplicated; F32.A Depression, unspecified; Z95.2 Presence of prosthetic heart valve; I69.320 Aphasia following cerebral infarction; F17.210 Nicotine dependence, cigarettes, uncomplicated
CPT/HCPCS: 00123; 36415; 36416; 80048; 80053; 80307; 82962; 93005; 93308; 94640; 96365; 96366; 99291; J1650; 71045; 83880; 84484; 85025; 85379; 85610; 85730; 93010; 94664; 99223; 99233; 99239; J0690; J2060; J2305

== ENCOUNTER 2024-04-29 14:58 | Emergency (ER) | payer MEDICAID, SELFPAY ==
[2024-04-29] VITALS (20 sets, daily range): BP systolic 127–178; BP diastolic 72–159; PULSE 74–96; RESP 12–26; TEMP 36.7; O2SAT 87–93
--- NOTE | 2024-04-29 15:00 | DI.RAD_ITS ---
Exam(s) XR PORTABLE CHEST AP EXAM: XR PORTABLE CHEST AP CLINICAL HISTORY: Chest pain. TECHNIQUE: 2D digital imaging was performed. COMPARISON: CR XR PORTABLE CHEST AP from 04/24/2024 FINDINGS: Single AP portable view. Again noted are sternotomy wires and prosthetic aortic valve. Heart size remains normal mediastinum is not widened. Lungs are clear. No infiltrates nor obvious pleural effusions. IMPRESSION: No acute pulmonary findings on this single AP portable view of the chest. Again noted are sternotomy wires and a prosthetic aortic valve. DATA REPOSITORY: RADIATION DOSE DELIVERED:
--- NOTE | 2024-04-29 15:00 | RT.EKG_ITS ---
APPROVED REPORT Exam: Resting ECG Reason for Exam: chest pain Patient Location: E HR:87 bpm ECG Measurements Heart Rate 87 AXIS IA 167 P 100 QRSd 134 QRS -136 QT 378 T 74 QTc 454 Conclusion Sinus rhythm 87 normal axis RBBB no stemi
[2024-04-29 15:40] LABS: HCT 47.1 % (40.0-50.0); HGB 15.2 g/dL (13.5-17.5); MCH 26.5 pg (27.0-33.0); MCHC 32.3 % (32.0-36.0); MCV 82 fL (80-95); MPV 9.4 fL (8.0-11.0); RBC 5.74 10^6/uL (4.36-5.78); RDW 13.9 % (11.8-14.1)
[2024-04-29 15:56] LABS: BE (Venous) 0 mmol/L (-2-3); HCO3 (Venous) 26 mmol/L (23-28); O2 Sat (Venous) 65 %; TCO2 (Venous) 24 mmol/L (24-29); pCO2 (Venous) 50 mmHg (41-51); pH (Venous) 7.33 (7.31-7.41); pO2 (Venous) 37 mmHg
[2024-04-29 15:58] LABS: Absolute Eosinophil Count 0.26 10^3/uL (0.0-0.7); Absolute Lymphocyte Count 2.08 10^3/uL (1.2-3.4); Absolute Monocyte Count 2.08 10^3/uL (0.1-0.8); Absolute Neutrophil Count 21.56 10^3/uL (1.2-6.7); Bands % 3 %; Diff Comment Manual Differential; WBC 25.98 10^3/uL (4.4-10.8)
[2024-04-29 15:59] LABS: Hypochromasia 1+; Microcytosis 1+; Platelet Count 388 10^3/uL (130-400)
[2024-04-29 16:06] LABS: ALT 15 U/L (16-63); AST 9 U/L (15-37); Albumin 3.5 g/dL (3.4-5.0); Alkaline Phosphatase 78 U/L (46-116); Anion Gap 8.8 mmol/L (3-11); BUN 32 mg/dL (7-18); Bilirubin, Total 0.5 mg/dL (0.2-1.0); CO2 26.2 mmol/L (21.0-32.0); CREATININE 1.5 mg/dL (0.70-1.30); Calcium 9.2 mg/dL (8.5-10.1); Chloride 103 mmol/L (98-107); Estimated GFR 53.63 (mL/min/1.73m2); Glucose 146 mg/dL (74-106); NT-proBNP 429 pg/mL (<300); Potassium 4.4 mmol/L (3.5-5.1); Sodium 138 mmol/L (136-145); Total Protein 8.1 g/dL (6.4-8.2); Troponin I 13 ng/L (<or=76)
[2024-04-29] MEDS: methylPREDNISolone SUCC 125 MG VIAL IVP (16:08)
[2024-04-29] MEDS: Albuterol/Ipratropium 3 ML UPD VIAL UPD (16:09)
[2024-04-29] MEDS: Aspirin 81 MG CHEW 324 MG CH (16:09)
[2024-04-29 16:55] LABS: Troponin I 18 ng/L (<or=76)
--- NOTE | 2024-04-29 21:54 | ED.GENADUL_ITS ---
Discharge Plan Disposition Patient Disposition: Against Medical Advice Discharge Details Clinical Impression: Hypoxia, Chest pain, Mild shortness of breath, Leukocytosis Primary Care Provider: Evon Howard ED Provider: Trevor Mackenzie Home Meds and New Rx's Prescriptions: No Action esomeprazole magnesium [Nexium] 40 mg capsule,delayed release(DR/EC) 40 mg PO DAILY Trulicity 4.5 mg/0.5 mL pen injector 4.5 mg subcut QWEEK Patient Comments: takes on monday albuterol sulfate 90 mcg/actuation HFA aerosol inhaler 2 inh inhalation Q6H PRN aspirin 81 mg Tablet 81 mg PO DAILY duloxetine 30 mg Capsule,Delayed Release(Dr/Ec) 30 mg PO BID acetaminophen [Tylenol] 325 mg tablet 1,000 mg PO Q6H PRN Anoro Ellipta 62.5-25 mcg/actuation blister with device 1 ea INHALATION DAILY Patient Comments: INHALE ONE PUFF BY MOUTH EVERY DAY buprenorphine-naloxone [Suboxone] 4-1 mg film 1 film sublingual DAILY Patient Comments: PLACE ONE FILM UNDER THE TONGUE EVERY DAY cyanocobalamin (vitamin B-12) [Vitamin B-12] 1,000 mcg tablet 1,000 mcg PO DAILY Qvar RediHaler 80 mcg/actuation HFA aerosol breath activated 1 inh INHALATION BID PRN Patient Comments: INHALE ONE PUFF BY MOUTH TWICE A DAY NEEDED diltiazem HCl [Cardizem] 60 mg Tablet 60 mg PO BID Qty: 90 0RF furosemide [Lasix] 40 mg Tablet 40 mg PO DAILY Qty: 0 0RF spironolactone 25 mg Tablet 25 mg PO DAILY Qty: 30 0RF amlodipine 2.5 mg tablet 2.5 mg PO DAILY Patient Comments: TAKE ONE TABLET BY MOUTH EVERY DAY gabapentin 600 mg tablet 600 mg PO TID Patient Comments: TAKE ONE TABLET BY MOUTH THREE TIMES A DAY Lactobacillus acidophilus 500 million cell Capsule 500 mmu cells PO TID Qty: 30 0RF Discharge Instructions Additional Instructions: You are leaving the hospital AGAINST MEDICAL ADVICE. Right now you have multiple undiagnosed conditions that require ongoing medical treatment including low oxygen levels that we have been giving you oxygen for. You have a significantly elevated white blood cell count that usually indicates you have an infection which we have not been able to identify at this time. Because I cannot identify the infection, I cannot provide treatment for it. This means that you will likely continue to get sick and have more complications. You understand the risks of leaving at this time and have accepted these risks. please come back to resume care at any time Discharge Data Discharge Date/Time-TO BE ENTERED AT DEPARTURE: 04/29/24 16:50 HPI General Date/Time Provider Initiated Documentation: 04/29/24 15:01 . Limitations to Documentation: no limitations . Information obtained by: patient . HPI Narrative: 58-year-old gentleman with past medical history including CVA, valve replacement, hypertension, COPD presents for evaluation of left-sided chest pain and shortness of breath. Patient reports onset of symptoms a few hours ago that woke him from sleep patient reports that his symptoms have improved. On arrival it was noted that he had low oxygen levels and he does endorse some cough and shortness of breath. Related Data Home Medications ?Medication ?Instructions ?Recorded ?Confirmed esomeprazole magnesium 40 mg 40 mg PO DAILY 05/05/20 04/29/24 capsule,delayed release (Nexium) aspirin 81 mg tablet 81 mg PO DAILY 08/03/20 04/29/24 duloxetine 30 mg capsule,delayed 30 mg PO BID 08/03/20 04/29/24 release acetaminophen 325 mg tablet 1,000 mg PO Q6H PRN 09/27/20 04/29/24 (Tylenol) umeclidinium 62.5 mcg-vilanterol 1 ea inhalation DAILY 09/27/20 04/29/24 25 mcg/actuation powdr for inhalation (Anoro Ellipta) buprenorphine 4 mg-naloxone 1 mg 1 film sublingual DAILY 09/28/20 04/29/24 sublingual film (Suboxone) albuterol sulfate 90 mcg/actuation 2 inh inhalation Q6H PRN 04/12/22 04/29/24 aerosol inhaler dulaglutide 4.5 mg/0.5 mL 4.5 mg subcut QWEEK 04/12/22 04/29/24 subcutaneous pen injector (Trulicity) cyanocobalamin (vitamin B-12) 1,000 mcg PO DAILY 03/06/23 04/29/24 1,000 mcg tablet (Vitamin B-12) amlodipine 2.5 mg tablet 2.5 mg PO DAILY 09/30/23 04/29/24 gabapentin 600 mg tablet 600 mg PO TID 09/30/23 04/29/24 beclomethasone dipropionate 80 1 inh inhalation BID PRN 12/27/23 04/29/24 mcg/actuation HFA breath activated aerosol (Qvar RediHaler) diltiazem HCl 60 mg tablet 60 mg PO BID #90 tabs 12/29/23 04/29/24 (Cardizem) furosemide 40 mg tablet (Lasix) 40 mg PO DAILY #0 tabs 12/29/23 04/29/24 Lactobacillus acidophilus 500 500 mmu cells PO TID #30 caps 02/09/24 04/29/24 million cell capsule spironolactone 25 mg tablet 25 mg PO DAILY #30 tabs 04/26/24 04/29/24 Previous Rx's ?Medication ?Instructions ?Recorded diltiazem HCl 60 mg tablet 60 mg PO BID #90 tabs 12/29/23 (Cardizem) furosemide 40 mg tablet (Lasix) 40 mg PO DAILY #0 tabs 12/29/23 Lactobacillus acidophilus 500 500 mmu cells PO TID #30 caps 02/09/24 million cell capsule spironolactone 25 mg tablet 25 mg PO DAILY #30 tabs 04/26/24 Allergies Allergy/AdvReac Type Severity Reaction Status Date / Time Penicillins AdvReac Severe Vomiting Verified 04/29/24 15:01 hydrocodone AdvReac Intermediate vomiting Verified 04/29/24 15:01 General Stated Complaint: Chest Pain LILLIAN: 3 Exam Narrative Exam Narrative: Review of Systems: All systems reviewed & are unremarkable except as noted in HPI and below Disheveled, chronically ill-appearing NCAT RRR, sternotomy scar noted Unlabored respiratory effort mild hypoxia at 88%,, expiratory wheezing noted Nondistended abdomen soft nontender Extremities w trace edema No rashes or lesions. Right-sided Weakness from prior CVA Course Vital Signs Vital signs: Vital Signs Pulse 96 H 04/29/24 15:00 Pulse Oximetry 93 04/29/24 15:00 Temperature 36.7 C 04/29/24 15:02 Temperature Source Tympanic 04/29/24 15:02 Pulse 90 04/29/24 16:40 Pulse 92 H 04/29/24 16:40 Respiratory Rate 21 04/29/24 16:40 Respiratory Effort Normal, Non-Labored 04/29/24 16:27 Respiratory Depth Normal 04/29/24 16:27 Respiratory Pattern Normal 04/29/24 16:27 Blood Pressure 142/73 H 04/29/24 16:31 Blood Pressure Mean 97 04/29/24 16:31 Blood Pressure Position Sitting 04/29/24 15:02 Pulse Oximetry 90 L 04/29/24 16:40 Oxygen Delivery Method Room Air 04/29/24 15:02 Oxygen Flow Rate 0 04/29/24 15:02 Pain Level 5 04/29/24 15:02 Lab/Test Results Lab/Test Results: Laboratory Tests Range/Units 04/29/24 04/29/24 04/29/24 15:28 15:49 16:24 WBC (4.4-10.8) 10^3/uL 25.98 H* RBC (4.36-5.78) 10^6/uL 5.74 Hgb (13.5-17.5) g/dL 15.2 Hct (40.0-50.0) % 47.1 MCV (80-95) fL 82 MCH (27.0-33.0) pg 26.5 L MCHC (32.0-36.0) % 32.3 RDW (11.8-14.1) % 13.9 Plt Count (130-400) 10^3/uL 388 MPV (8.0-11.0) fL 9.4 Immature Gran % % 0.0 Neutrophils % % 80.0 Band Neutrophils % % 3 Lymphocytes % % 8.0 Monocytes % % 8.0 Eosinophils % % 1.0 Basophils % % 0.0 Nucleated RBC % (0.0-0.3) % 0.0 Absolute Neutrophils (1.2-6.7) 10^3/uL 21.56 H Absolute Lymphocytes (1.2-3.4) 10^3/uL 2.08 Absolute Monocytes (0.1-0.8) 10^3/uL 2.08 H Absolute Eosinophils (0.0-0.7) 10^3/uL 0.26 Absolute Basophils (0.0-0.2) 10^3/uL 0.00 RBC Morphology See Below Hypochromasia 1+ Microcytosis 1+ VBG pH (7.31-7.41) 7.33 VBG pCO2 (41-51) mmHg 50 VBG pO2 mmHg 37 VBG HCO3 (23-28) mmol/L 26 VBG Total CO2 (24-29) mmol/L 24 VBG O2 Saturation % 65 VBG Base Excess (-2-3) mmol/L 0 Sodium (136-145) mmol/L 138 Potassium (3.5-5.1) mmol/L 4.4 Chloride (98-107) mmol/L 103 Carbon Dioxide (21.0-32.0) mmol/L 26.2 Anion Gap (3-11) mmol/L 8.8 BUN (7-18) mg/dL 32 H Creatinine (0.70-1.30) mg/dL 1.5 H Est GFR (CKD-EPI 2020) (mL/min/1.73m2) 53.63 Glucose (74-106) mg/dL 146 H Calcium (8.5-10.1) mg/dL 9.2 Total Bilirubin (0.2-1.0) mg/dL 0.5 AST (15-37) U/L 9 L ALT (16-63) U/L 15 L Alkaline Phosphatase (46-116) U/L 78 Troponin I (<or=76) ng/L 13 18 NT-Pro-B Natriuret Pep (<300) pg/mL 429 H Total Protein (6.4-8.2) g/dL 8.1 Albumin (3.4-5.0) g/dL 3.5 Range/Units 04/29/24 18:14 WBC (4.4-10.8) 10^3/uL RBC (4.36-5.78) 10^6/uL Hgb (13.5-17.5) g/dL Hct (40.0-50.0) % MCV (80-95) fL MCH (27.0-33.0) pg MCHC (32.0-36.0) % RDW (11.8-14.1) % Plt Count (130-400) 10^3/uL MPV (8.0-11.0) fL Immature Gran % % Neutrophils % % Band Neutrophils % % Lymphocytes % % Monocytes % % Eosinophils % % Basophils % % Nucleated RBC % (0.0-0.3) % Absolute Neutrophils (1.2-6.7) 10^3/uL Absolute Lymphocytes (1.2-3.4) 10^3/uL Absolute Monocytes (0.1-0.8) 10^3/uL Absolute Eosinophils (0.0-0.7) 10^3/uL Absolute Basophils (0.0-0.2) 10^3/uL RBC Morphology Hypochromasia Microcytosis VBG pH (7.31-7.41) VBG pCO2 (41-51) mmHg VBG pO2 mmHg VBG HCO3 (23-28) mmol/L VBG Total CO2 (24-29) mmol/L VBG O2 Saturation % VBG Base Excess (-2-3) mmol/L Sodium (136-145) mmol/L Potassium (3.5-5.1) mmol/L Chloride (98-107) mmol/L Carbon Dioxide (21.0-32.0) mmol/L Anion Gap (3-11) mmol/L BUN (7-18) mg/dL Creatinine (0.70-1.30) mg/dL Est GFR (CKD-EPI 2020) (mL/min/1.73m2) Glucose (74-106) mg/dL Calcium (8.5-10.1) mg/dL Total Bilirubin (0.2-1.0) mg/dL AST (15-37) U/L ALT (16-63) U/L Alkaline Phosphatase (46-116) U/L Troponin I (<or=76) ng/L Cancelled NT-Pro-B Natriuret Pep (<300) pg/mL Total Protein (6.4-8.2) g/dL Albumin (3.4-5.0) g/dL Medical Decision Making Emergent evaluation of chest pain and shortness of breath. On arrival patient is noted to have some hypoxia. He does have history of COPD but does not have oxygen dependence. The patient reports that his chest pain is improving. EKG does not reveal acute ischemic changes. Initial differential includes COPD exacerbation, pneumonia, ACS. Patient was placed on supplemental oxygen for his mild hypoxia, he was given aspirin for chest pain workup, steroids and albuterol for his likely COPD exacerbation. Lab work concerning for significantly elevated white blood cell count of 25 with a left shift. His VBG does not demonstrate acute respiratory failure. His creatinine is 1.5 which is consistent with prior. BNP is slightly elevated at 429 and initial troponin not elevated. The patient white blood cell count is concerning and currently I do not have a focus for infection. He is afebrile. After the breathing treatment, the patient reports that he feels better and would like to go home. I advised that additional workup would be indicated for further evaluation of his significant leukocytosis however he states that he wants to leave. I had a long discussion with the patient regarding risks, benefits, and alternatives to my recommended treatment plan, which includes additional lab testing, CT imaging, cultures and the patient declined, voicing understanding of the risks but preferring instead to leave against medical advice. Some of the risks we specifically discussed included permanent disability or . I discussed with the patient that they were always welcome back to this department should they change their mind, and that regardless they should follow up with their primary care doctor at the soonest possible opportunity. All questions were answered and the patient left AMA in unchanged condition. Quality:SDOH Health Related Social Needs: No Data to Display PFSH All Active Problems (Updated 04/29/24 @ 16:30 by Trevor Mackenzie MD) Leukocytosis (Acute) Mild shortness of breath (Acute) Chest pain (Acute) Hypoxia (Acute) Recurrent apnea (Acute) Chest pain (Acute) Hypertensive emergency (Acute) Bilateral edema of lower extremity (Acute) Dyspnea (Acute) Chest pain (Acute) Right rotator cuff tear (Acute) Abnormal CT scan, kidney (Acute) Anxiety (Chronic) Medical non-compliance (Acute) Aragon esophagus (Acute) Opiate dependence (Chronic) managed on suboxone Medical History Obstructive sleep apnea Chronic venous insufficiency COPD (chronic obstructive pulmonary disease) Diabetic neuropathy Hx of deep venous thrombosis on Coumadin Diabetes mellitus Hypertension Cocaine abuse 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 S/P percutaneous endoscopic gastrostomy (PEG) tube placement History of ankle surgery S/P spinal surgery Family History Father No problems noted. Mother COPD (chronic obstructive pulmonary disease) Hypertension Diabetes Heart disease Sister Stroke Social History Smoking/Tobacco Use Status: Current every day Tobacco Type: cigarettes Years smoked: 44 Smoking risk assessment performed?: Yes Alcohol Intake: never Drug use: Daily Substance use type: marijuana and crack/cocaine Caregiver/Support person: Yes Household members: friend(s) Housing: house Number of Children: 0 number of grandchildren: 1 current occupation: Disabled Pets and animals: Yes Pets and animals: cat(s) Current gender identity: male What type of physical activity do you participate in: none Do you feel safe at home: Yes Do you feel safe in your relationship?: Yes Additional Social history: Lives with ex- Vanessa, who is his caregiver. Lives in private home.
== END 2024-04-29 16:50 | disposition left against medical advice (07) ==
PROVIDERS: Emergency Provider Emergency Medicine; PCP Family Medicine
DX: R09.02 Hypoxemia (principal); R07.9 Chest pain, unspecified; R06.02 Shortness of breath; D72.829 Elevated white blood cell count, unspecified; I10 Essential (primary) hypertension; J44.9 Chronic obstructive pulmonary disease, unspecified; E11.40 Type 2 diabetes mellitus with diabetic neuropathy, unspecified; F17.210 Nicotine dependence, cigarettes, uncomplicated; Z86.73 Personal history of transient ischemic attack (TIA), and cerebral infarction without residual deficits; Z95.2 Presence of prosthetic heart valve; Z79.82 Long term (current) use of aspirin; Z53.29 Procedure and treatment not carried out because of patient's decision for other reasons
CPT/HCPCS: 36415; 80053; 82805; 87426; 93005; 94640; 96374; 99284; 71045; 83880; 84484; 85025; 93010; J2919; J7620

== ENCOUNTER 2024-04-30 14:00 | Inpatient (IN) | payer MEDICAID, SELFPAY ==
[2024-04-30] VITALS (40 sets, daily range): BP systolic 117–169; BP diastolic 69–90; PULSE 92–123; RESP 14–26; TEMP 36.9–37; O2SAT 89–96
--- NOTE | 2024-04-30 13:45 | RT.EKG_ITS ---
APPROVED REPORT Exam: Resting ECG Reason for Exam: chest pain Patient Location: E HR:112 bpm ECG Measurements Heart Rate 112 AXIS CA 162 P 68 QRSd 137 QRS -111 QT 351 T 49 QTc 479 Conclusion Sinus tachycardia [address] changes
--- NOTE | 2024-04-30 14:15 | DI.RAD_ITS ---
Exam(s) XR PORTABLE CHEST AP EXAM: XR PORTABLE CHEST AP CLINICAL HISTORY: hypoxia. TECHNIQUE: 2D digital imaging was performed. COMPARISON: CR XR PORTABLE CHEST AP from 04/29/2024 FINDINGS: Single AP portable view. Again noted are sternotomy wires and a prosthetic aortic valve. Heart size is upper normal. The mediastinum is not widened. There are no infiltrates nor pleural effusions. Subtle suggestion of vascular redistribution but no true Quinton B lines and no airspace pulmonary edema nor pleural effusions. IMPRESSION: Mild increased markings as above which may be related to an element of pulmonary venous hypertension. No airspace pulmonary edema nor pleural effusions Prosthetic aortic valve again noted. Heart size remains normal. DATA REPOSITORY: RADIATION DOSE DELIVERED:
--- NOTE | 2024-04-30 14:19 | ED.GENADUL_ITS ---
Discharge Plan Disposition Patient Disposition: Admit to [facility] Condition: Serious Discharge Details Chief Complaint: Chest Pain Clinical Impression: Sepsis, Chest pain, Dyspnea, Bilateral edema of lower extremity, Hypoxia Primary Care Provider: Evon Howard ED Provider: Trevor Mackenzie Home Meds and New Rx's Prescriptions: No Action esomeprazole magnesium [Nexium] 40 mg capsule,delayed release(DR/EC) 40 mg PO DAILY Trulicity 4.5 mg/0.5 mL pen injector 4.5 mg subcut QWEEK Patient Comments: takes on monday albuterol sulfate 90 mcg/actuation HFA aerosol inhaler 2 inh inhalation Q6H PRN aspirin 81 mg Tablet 81 mg PO DAILY duloxetine 30 mg Capsule,Delayed Release(Dr/Ec) 30 mg PO BID acetaminophen [Tylenol] 325 mg tablet 1,000 mg PO Q6H PRN Anoro Ellipta 62.5-25 mcg/actuation blister with device 1 ea INHALATION DAILY Patient Comments: INHALE ONE PUFF BY MOUTH EVERY DAY buprenorphine-naloxone [Suboxone] 4-1 mg film 1 film sublingual DAILY Patient Comments: PLACE ONE FILM UNDER THE TONGUE EVERY DAY cyanocobalamin (vitamin B-12) [Vitamin B-12] 1,000 mcg tablet 1,000 mcg PO DAILY Qvar RediHaler 80 mcg/actuation HFA aerosol breath activated 1 inh INHALATION BID PRN Patient Comments: INHALE ONE PUFF BY MOUTH TWICE A DAY NEEDED diltiazem HCl [Cardizem] 60 mg Tablet 60 mg PO BID Qty: 90 0RF furosemide [Lasix] 40 mg Tablet 40 mg PO DAILY Qty: 0 0RF spironolactone 25 mg Tablet 25 mg PO DAILY Qty: 30 0RF amlodipine 2.5 mg tablet 2.5 mg PO DAILY Patient Comments: TAKE ONE TABLET BY MOUTH EVERY DAY gabapentin 600 mg tablet 600 mg PO TID Patient Comments: TAKE ONE TABLET BY MOUTH THREE TIMES A DAY Lactobacillus acidophilus 500 million cell Capsule 500 mmu cells PO TID Qty: 30 0RF HPI General Date/Time Provider Initiated Documentation: 04/30/24 14:09 . Limitations to Documentation: no limitations . Information obtained by: patient, EMS and old records reviewed . HPI Narrative: 58-year-old gentleman with past medical history including CVA, hypertension, COPD, aortic valve replacement presents for evaluation of persistent chest pain and shortness of breath. Patient was evaluated yesterday in the emergency department but left AGAINST MEDICAL ADVICE. At that time he was found to have a significantly elevated white blood cell count, hypoxia down to 88% on room air.. After breathing treatment he felt better and decided to leave. Today he says that he feels worse his chest feels a lot of pressure. He says he started for leaving yesterday. He reports some discomfort in bilateral lower legs. He reports cough has been worsening. Chest pain is across his entire chest and feels like pressure unchanged and has been constant. EMS reports oxygen saturations were in the 80s and he was placed on 2 L of nasal cannula. Related Data Home Medications ?Medication ?Instructions ?Recorded ?Confirmed esomeprazole magnesium 40 mg 40 mg PO DAILY 05/05/20 04/29/24 capsule,delayed release (Nexium) aspirin 81 mg tablet 81 mg PO DAILY 08/03/20 04/29/24 duloxetine 30 mg capsule,delayed 30 mg PO BID 08/03/20 04/29/24 release acetaminophen 325 mg tablet 1,000 mg PO Q6H PRN 09/27/20 04/29/24 (Tylenol) umeclidinium 62.5 mcg-vilanterol 1 ea inhalation DAILY 09/27/20 04/29/24 25 mcg/actuation powdr for inhalation (Anoro Ellipta) buprenorphine 4 mg-naloxone 1 mg 1 film sublingual DAILY 09/28/20 04/29/24 sublingual film (Suboxone) albuterol sulfate 90 mcg/actuation 2 inh inhalation Q6H PRN 04/12/22 04/29/24 aerosol inhaler dulaglutide 4.5 mg/0.5 mL 4.5 mg subcut QWEEK 04/12/22 04/29/24 subcutaneous pen injector (Trulicity) cyanocobalamin (vitamin B-12) 1,000 mcg PO DAILY 03/06/23 04/29/24 1,000 mcg tablet (Vitamin B-12) amlodipine 2.5 mg tablet 2.5 mg PO DAILY 09/30/23 04/29/24 gabapentin 600 mg tablet 600 mg PO TID 09/30/23 04/29/24 beclomethasone dipropionate 80 1 inh inhalation BID PRN 12/27/23 04/29/24 mcg/actuation HFA breath activated aerosol (Qvar RediHaler) diltiazem HCl 60 mg tablet 60 mg PO BID #90 tabs 12/29/23 04/29/24 (Cardizem) furosemide 40 mg tablet (Lasix) 40 mg PO DAILY #0 tabs 12/29/23 04/29/24 Lactobacillus acidophilus 500 500 mmu cells PO TID #30 caps 02/09/24 04/29/24 million cell capsule spironolactone 25 mg tablet 25 mg PO DAILY #30 tabs 04/26/24 04/29/24 Previous Rx's ?Medication ?Instructions ?Recorded diltiazem HCl 60 mg tablet 60 mg PO BID #90 tabs 12/29/23 (Cardizem) furosemide 40 mg tablet (Lasix) 40 mg PO DAILY #0 tabs 12/29/23 Lactobacillus acidophilus 500 500 mmu cells PO TID #30 caps 02/09/24 million cell capsule spironolactone 25 mg tablet 25 mg PO DAILY #30 tabs 04/26/24 Allergies Allergy/AdvReac Type Severity Reaction Status Date / Time Penicillins AdvReac Severe Vomiting Verified 04/29/24 15:01 hydrocodone AdvReac Intermediate vomiting Verified 04/29/24 15:01 General Stated Complaint: Chest Pain LILLIAN: 3 Exam Narrative Exam Narrative: Review of Systems: All systems reviewed & are unremarkable except as noted in HPI and below Well-developed, ill-appearing NCAT Tachycardia, no murmur, midline sternotomy scar noted Increased work of breathing, coarse cough, crackles throughout, hypoxic on room air, 92% on 2 L Nondistended abdomen , soft nontender Bilateral lower extremities with chronic edema and venous stasis changes, purple to erythematous discoloration sensitive to touch, not warm, no crepitus, Doppler signal pulses in bilateral feet noted Right-sided CVA deficits Course Vital Signs Vital signs: Vital Signs Temperature 37 C 04/30/24 14:03 Pulse 113 H 04/30/24 14:03 Respiratory Rate 24 04/30/24 14:03 Blood Pressure 169/89 H 04/30/24 14:03 Pulse Oximetry 93 04/30/24 14:03 Temperature 37 C 04/30/24 14:03 Pulse 113 H 04/30/24 14:03 Respiratory Rate 24 04/30/24 14:03 Respiratory Effort Normal 04/30/24 14:10 Respiratory Depth Normal 04/30/24 14:10 Respiratory Pattern Tachypnea 04/30/24 14:10 Blood Pressure 169/89 H 04/30/24 14:03 Pulse Oximetry 93 04/30/24 14:03 Oxygen Delivery Method Nasal Cannula 04/30/24 14:03 Oxygen Flow Rate 2 04/30/24 14:03 Pain Level 7 04/30/24 14:03 Lab/Test Results Lab/Test Results: 04/30/24 14:09 Blood Blood Culture - Pending 04/30/24 14:09 Blood Blood Culture - Pending Laboratory Tests Range/Units 04/30/24 14:09 D-Dimer Cancelled Medical Decision Making Emergent evaluation of chest pain and shortness of breath. I evaluated the patient yesterday in the emergency room and he left AGAINST MEDICAL ADVICE. There are many concerning problems during his visit yesterday including hypoxia and significant leukocytosis. On return, he has persistent hypoxia and is now on supplemental nasal cannula to maintain oxygen saturations. Today he has more crackles on his lung sounds. He is tachycardic, but not hypotensive. I am concerned for sepsis or an other overwhelming infection, CHF, pneumonia. Also consider cellulitis with his lower extremity wounds, but with his respiratory symptoms I feel more of a pulmonary infection is more likely. Plan for repeat lab work cultures repeat chest x-ray. Anticipate admission. EKG independently interpreted: Sinus tachycardia 112, Right bundle branch block, nonspecific ST changes no STEMI Lab work reviewed. White blood cell count has increased to 28 today with left shift continued. INR slightly elevated at 1.2. Creatinine of 1.4 is the patient's baseline and there is no other electrolyte derangement. His BNP has gone from 400-2000 today and IV Lasix has been initiated. His first troponin is consistent with prior and does not demonstrate elevation. Urinalysis does not demonstrate infection. Repeat viral testing today is negative. I reviewed his chest x-ray and I am concerned for more focal consolidation in the right middle lobe. He has been cultured and covered with broad-spectrum antibiotics. Discussed with the hospitalist for admission. Quality:[facility] Related Social Needs: No Data to Display Critical Care Time Critical Care Time Critical Care Time: Yes Total Critical Care Time: 34 Attestation: CRITICAL CARE Upon my evaluation, this patient had a high probability of imminent or life- threatening deterioration due to sepsis which required my direct attention, intervention, and personal management. I have personally provided 34 minutes of critical care time exclusive of time spent on separately billable procedures. Time includes review of laboratory data, radiology results, discussion with consultants, and monitoring for potential decompensation. Interventions were performed as documented above [facility] All Active Problems (Updated 04/30/24 @ 16:49 by Trevor Makcenzie MD) Hypoxia (Acute) Sepsis (Acute) Leukocytosis (Acute) Mild shortness of breath (Acute) Chest pain (Acute) Hypoxia (Acute) Recurrent apnea (Acute) Chest pain (Acute) Hypertensive emergency (Acute) Bilateral edema of lower extremity (Acute) Dyspnea (Acute) Chest pain (Acute) Right rotator cuff tear (Acute) Abnormal CT scan, kidney (Acute) Anxiety (Chronic) Medical non-compliance (Acute) Aragon esophagus (Acute) Opiate dependence (Chronic) managed on suboxone Medical History Obstructive sleep apnea Chronic venous insufficiency COPD (chronic obstructive pulmonary disease) Diabetic neuropathy Hx of deep venous thrombosis on Coumadin Diabetes mellitus Hypertension Cocaine abuse 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 S/P percutaneous endoscopic gastrostomy (PEG) tube placement History of ankle surgery S/P spinal surgery Family History Father No problems noted. Mother COPD (chronic obstructive pulmonary disease) Hypertension Diabetes Heart disease Sister Stroke Social History Smoking/Tobacco Use Status: Current every day Tobacco Type: cigarettes Years smoked: 44 Smoking risk assessment performed?: Yes Alcohol Intake: never Drug use: Daily Substance use type: marijuana and crack/cocaine Caregiver/Support person: Yes Household members: friend(s) Housing: house Number of Children: 0 number of grandchildren: 1 current occupation: Disabled Pets and animals: Yes Pets and animals: cat(s) Current gender identity: male What type of physical activity do you participate in: none Do you feel safe at home: Yes Do you feel safe in your relationship?: Yes Additional Social history: Lives with ex- Vanessa, who is his caregiver. Lives in private home.
[2024-04-30 14:46] LABS: Lactate 1.9 mmol/L (<or=2.0)
[2024-04-30 14:48] LABS: Abs Immature Grans 0.44 10^3/uL (0.0-0.06); Basophils % 0.3 %; Eosinophils % 0.1 %; HCT 43.2 % (40.0-50.0); Immature Grans % 1.6 %; Lymphocytes % 3.8 %; MCH 26.4 pg (27.0-33.0); MCHC 32.4 % (32.0-36.0); MCV 82 fL (80-95); MPV 9.6 fL (8.0-11.0); Neutrophils % 86.2 %; Platelet Count 380 10^3/uL (130-400); RDW 14.1 % (11.8-14.1); RDW-SD 41.7 fL
[2024-04-30 14:49] LABS: Absolute Basophil Count 0.08 10^3/uL (0.0-0.2); Absolute Eosinophil Count 0.03 10^3/uL (0.0-0.7); Absolute Lymphocyte Count 1.07 10^3/uL (1.2-3.4); Absolute Monocyte Count 2.26 10^3/uL (0.1-0.8); Absolute Neutrophil Count 24.34 10^3/uL (1.2-6.7)
[2024-04-30 14:57] LABS: Diff Comment Diff Reviewed; RBC Morphology Normal; WBC 28.24 10^3/uL (4.4-10.8)
[2024-04-30 15:12] LABS: ALT 12 U/L (16-63); AST 8 U/L (15-37); Albumin 3.2 g/dL (3.4-5.0); Alkaline Phosphatase 79 U/L (46-116); Anion Gap 9.5 mmol/L (3-11); BUN 32 mg/dL (7-18); Bilirubin, Total 0.4 mg/dL (0.2-1.0); CO2 25.5 mmol/L (21.0-32.0); CREATININE 1.4 mg/dL (0.70-1.30); Calcium 9.5 mg/dL (8.5-10.1); Chloride 102 mmol/L (98-107); Estimated GFR 58.26 (mL/min/1.73m2); Glucose 176 mg/dL (74-106); NT-proBNP 2024 pg/mL (<300); Potassium 4.5 mmol/L (3.5-5.1); Sodium 137 mmol/L (136-145); Total Protein 7.7 g/dL (6.4-8.2); Troponin I 44 ng/L (<or=76)
[2024-04-30 15:24] LABS: Procalcitonin 0.27 ng/mL
[2024-04-30 15:25] LABS: INR 1.2 (0.9-1.1); PTT Activated 25.7 sec (20.6-30.2); Prothrombin Time 11.5 sec (9.1-11.1)
[2024-04-30] MEDS: Ondansetron 4 MG/2 ML VIAL IVP (15:49)
[2024-04-30] MEDS: CEFEPIME 1 GM in Normal Saline 50 ML IVPB ×2 (15:49→23:00)
[2024-04-30] MEDS: Furosemide 100 MG/10 ML VIAL 80 MG IVP (15:50)
[2024-04-30 16:05] LABS: COVID-19 PCR Negative (Negative); Influenza A PCR Negative (Negative); Influenza B PCR Negative (Negative); RSV PCR Negative (Negative)
[2024-04-30 16:09] LABS: Source Nasopharynx
[2024-04-30] MEDS: VANCOMYCIN/WATER (PEG) 1.5 GM/300 ML BAG IVPB (16:09)
[2024-04-30 16:22] LABS: Bilirubin Negative (Negative); Blood Small (Negative); Clarity Clear (Clear); Glucose 100 mg/dL (Negative); Ketones Negative (Negative); Leukocyte Esterase Negative (Negative); Nitrite Negative (Negative); Urobilinogen 0.2 mg/dL (Up to 0.2); pH 5.5 (5-8)
[2024-04-30 16:39] LABS: Bacteria Negative HPF (Negative); C & S Indicated? No; Casts 0-2 Hyaline LPF (Negative); Crystals Negative HPF (Negative); Epithelial Cells Rare HPF (Negative); Mucus Negative (Negative); RBC 0-2 HPF (0-2); WBC 0-2 HPF (0-5)
--- NOTE | 2024-04-30 16:52 | HPE_ITS ---
Date of service: 04/30/24 Time of Service: 16:52 Assessment and Plan Assessment and plan (1) Chest pain: Status: Acute Assessment and plan: Chest pain - resolved negative troponins (2) Leukocytosis: Status: Acute Assessment and plan: WBC 28.24 up from prior day 25.98 Suspected RML PNA Emperic abx started continue BC pending (3) Right middle lobe pneumonia: Status: Acute Assessment and plan: Concern for infiltrate Leukocytosis Emperic anx started - continue BC pending (4) Opiate dependence: Status: Chronic Assessment and plan: continue buprenorphine. Concern last admission he is still using fentanyl given his presentation and nodding off. Urine positive for cocaine and THC on 04/24 - will recheck urine and send for fentanyl check (5) Bilateral edema of lower extremity: Status: Acute Assessment and plan: Chronic bilateral lower extremity edema (6) Diabetes mellitus: Assessment and plan: Glucose controlled Trulicity on Monday's will bring from home Diabetic neuropathy Daily glucose A1C 12/26/2023 5.9 Will check A1C (7) DVT prophylaxis: Status: Acute Assessment and plan: enoxaparin History of Present Illness History of Present Illness Chief Complaint: Chest pain Narrative: The patient is a 58-year-old male with a complex medical history including poorly controlled hypertension, opioid use disorder (on buprenorphine), cerebrovascular accident with right hemiparesis, type 2 diabetes mellitus (last A1c 5.9% as of December 2023), aortic valve replacement following methicillin- sensitive Staphylococcus aureus (MSSA) endocarditis related to intravenous drug use, and a history of deep vein thrombosis. He presents today with worsening chest pain, shortness of breath, and general discomfort. Chest Pain: * The patient has had severe chest pain for the past 3 days, which is described as a pressure sensation in the left mid-chest, similar to someone standing on it. * The pain is not radiating to the neck, arm, or back. * It is associated with dizziness, diaphoresis, heart pounding, and shortness of breath, but not nausea. * The pain lasts from a few minutes to hours, and was persistent this morning. He called EMS, reporting the pain as 10/10, which improved to 3/10 after receiving nitroglycerin, and resolved entirely once started on an NTG drip. Recent Medical History: * Diltiazem was recently stopped by his primary care provider due to recurrent bradycardia and replaced with spironolactone 25mg. * The patient is unsure of his full medication regimen but states he is taking his medications as prescribed. * He denies recent cocaine or other illicit drug use, though he occasionally uses marijuana. He has been very tired but has not been sleeping well recently. * He had a recent episode of flu and still has some cough and runny nose symptoms. Additional Concerns: * The patient was evaluated in the emergency department yesterday but left against medical advice. At that time, he was found to have an elevated white blood cell count and hypoxia (oxygen saturation of 88% on room air). He underwent a breathing treatment, after which he felt better but decided to leave the hospital. * Today, he presents feeling worse, with persistent chest pain described as pressure across his entire chest. His symptoms of shortness of breath have worsened, and he reports discomfort in bilateral lower legs. * EMS found that his oxygen saturation was in the 80s and placed him on 2 L of nasal cannula. Vick Points: * Chest pain: Pressure in the left mid-chest, persisting for 3 days, improving with NTG. * Shortness of breath: Worsening, with hypoxia and oxygen saturations in the 80s. * Lower leg discomfort: Bilateral, not further described. * Cough/runny nose: Possibly related to recent flu. * Medication changes: Diltiazem was replaced with spironolactone due to bradycardia concerns. * History of cardiac and pulmonary issues: Including aortic valve replacement, history of endocarditis, and COPD. Assessment and Plan: * Given the patient?s complex history, particularly with a history of endocarditis, aortic valve replacement, hypertension, and COPD, and the severity of the chest pain, several diagnoses should be considered, including: * Acute coronary syndrome, including unstable angina or myocardial infarction, especially given the nature of the pain and associated symptoms (diaphoresis, dizziness, heart pounding). * Pulmonary embolism or other pulmonary complications, particularly with the worsening shortness of breath and hypoxia. * COPD exacerbation with an infectious component, given the recent flu and current respiratory symptoms. * The patient is admitted for further evaluation, including: * Cardiac monitoring, with serial troponins, ECG, and echocardiogram. * Pulmonary workup, including a chest X-ray, CT pulmonary angiogram, and blood cultures given his history of endocarditis. * Oxygen therapy to maintain adequate saturation, and NTG for symptom management if appropriate. * Close monitoring of vitals and fluid status, particularly with his complex cardiac and pulmonary history. Labs in the ED today: WBC elevated from 25.98 to 28.24, neutrophils 24.34, monocytes 2.26, creatinine 1.4, proBNP 2023, procalcitonin 0.27, Chest xray Mild increased markings as above which may be related to an element of pulmonary venous hypertension. No airspace pulmonary edema nor pleural effusions Prosthetic aortic valve again noted. Heart size remains normal. Blood cultures pending, Echo 05/14/2023: Mild concentric left ventricular hypertrophy. Ejection fraction is 60%. Wall motion is normal. There is a bioprosthetic aortic valve. Patient received vancomycin, cefepime and furosemide 80 mg IV in the ED. Given the patient?s decision to leave previously against medical advice and worsening symptoms today, he has agreed to stay in the hospital. Patient is a full code. Review of Systems All systems reviewed & are unremarkable except as noted in HPI and below PFSH All Active Problems (Updated 05/01/24 @ 11:16 by Trinity Henderson NP) DVT prophylaxis (Acute) Right middle lobe pneumonia (Acute) Hypoxia (Acute) Sepsis (Acute) Leukocytosis (Acute) Mild shortness of breath (Acute) Chest pain (Acute) Hypoxia (Acute) Recurrent apnea (Acute) Chest pain (Acute) Hypertensive emergency (Acute) Bilateral edema of lower extremity (Acute) Dyspnea (Acute) Chest pain (Acute) Right rotator cuff tear (Acute) Abnormal CT scan, kidney (Acute) Anxiety (Chronic) Medical non-compliance (Acute) Aragon esophagus (Acute) Opiate dependence (Chronic) managed on suboxone Medical History Obstructive sleep apnea Chronic venous insufficiency COPD (chronic obstructive pulmonary disease) Diabetic neuropathy Hx of deep venous thrombosis on Coumadin Diabetes mellitus Hypertension Cocaine abuse 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 S/P percutaneous endoscopic gastrostomy (PEG) tube placement History of ankle surgery S/P spinal surgery Family History Father No problems noted. Mother COPD (chronic obstructive pulmonary disease) Hypertension Diabetes Heart disease Sister Stroke Social History Smoking/Tobacco Use Status: Current every day Tobacco Type: cigarettes Years smoked: 44 Tobacco: How many years used: 40 Smoking risk assessment performed?: Yes Alcohol Intake: never Drug use: Daily Substance use type: marijuana and crack/cocaine Caregiver/Support person: Yes Household members: friend(s) Housing: house Number of Children: 0 number of grandchildren: 1 current occupation: Disabled Pets and animals: Yes Pets and animals: cat(s) Current gender identity: male What type of physical activity do you participate in: none Do you feel safe at home: Yes Do you feel safe in your relationship?: Yes Additional Social history: Lives with ex- Vanessa, who is his caregiver. Lives in private home. Meds Allergies and Home Medications Allergies Allergy/AdvReac Type Severity Reaction Status Date / Time Penicillins AdvReac Severe Vomiting Verified 04/29/24 15:01 hydrocodone AdvReac Intermediate vomiting Verified 04/29/24 15:01 Home Medications ?Medication ?Instructions ?Recorded ?Confirmed ?Type esomeprazole magnesium 40 mg 40 mg PO DAILY 05/05/20 04/30/24 History capsule,delayed release (Nexium) aspirin 81 mg tablet 81 mg PO DAILY 08/03/20 04/30/24 History duloxetine 30 mg capsule,delayed 30 mg PO BID 08/03/20 04/30/24 History release acetaminophen 325 mg tablet 1,000 mg PO Q6H PRN 09/27/20 04/30/24 History (Tylenol) umeclidinium 62.5 mcg-vilanterol 1 ea inhalation DAILY 09/27/20 04/30/24 History 25 mcg/actuation powdr for inhalation (Anoro Ellipta) buprenorphine 4 mg-naloxone 1 mg 1 film sublingual DAILY 09/28/20 04/30/24 History sublingual film (Suboxone) albuterol sulfate 90 mcg/actuation 2 inh inhalation Q6H PRN 04/12/22 04/30/24 History aerosol inhaler dulaglutide 4.5 mg/0.5 mL 4.5 mg subcut QWEEK 04/12/22 04/30/24 History subcutaneous pen injector (Trulicity) cyanocobalamin (vitamin B-12) 1,000 mcg PO DAILY 03/06/23 04/30/24 History 1,000 mcg tablet (Vitamin B-12) amlodipine 2.5 mg tablet 2.5 mg PO DAILY 09/30/23 04/30/24 History gabapentin 600 mg tablet 600 mg PO TID 09/30/23 04/30/24 History beclomethasone dipropionate 80 1 inh inhalation BID PRN 12/27/23 04/30/24 History mcg/actuation HFA breath activated aerosol (Qvar RediHaler) diltiazem HCl 60 mg tablet 60 mg PO BID #90 tabs 12/29/23 04/30/24 Rx (Cardizem) furosemide 40 mg tablet (Lasix) 40 mg PO DAILY #0 tabs 12/29/23 04/30/24 Rx Lactobacillus acidophilus 500 500 mmu cells PO TID #30 caps 02/09/24 04/30/24 Rx million cell capsule spironolactone 25 mg tablet 25 mg PO DAILY #30 tabs 04/26/24 04/30/24 Rx Exam Narrative Exam Narrative: Review of Systems: All systems reviewed & are unremarkable except as noted in HPI and below Well-developed, ill-appearing NCAT Tachycardia, no murmur, midline sternotomy scar noted Increased work of breathing, coarse cough, crackles throughout, hypoxic on room air, 92% on 2 L Nondistended abdomen , soft nontender Bilateral lower extremities with chronic edema and venous stasis changes, purple to erythematous discoloration sensitive to touch, not warm, no crepitus, Doppler signal pulses in bilateral feet noted Right-sided CVA deficits Results Labs 05/01/24 06:04 05/01/24 06:04 Labs: Laboratory Results - last 24 hr 04/30/24 04/30/24 04/30/24 14:09 14:33 15:04 WBC 28.24 H* RBC 5.30 Hgb 14.0 Hct 43.2 MCV 82 MCH 26.4 L MCHC 32.4 RDW 14.1 Plt Count 380 MPV 9.6 Immature Gran % 1.6 Neutrophils % 86.2 Lymphocytes % 3.8 Monocytes % 8.0 Eosinophils % 0.1 Basophils % 0.3 Nucleated RBC % 0.0 Absolute Neutrophils 24.34 H Absolute Lymphocytes 1.07 L Absolute Monocytes 2.26 H Absolute Eosinophils 0.03 Absolute Basophils 0.08 RBC Morphology Normal PT Cancelled 11.5 H INR Cancelled 1.2 H APTT Cancelled 25.7 D-Dimer Cancelled VBG Lactate 1.9 Sodium 137 Potassium 4.5 Chloride 102 Carbon Dioxide 25.5 Anion Gap 9.5 BUN 32 H Creatinine 1.4 H Est GFR (CKD-EPI 2020) 58.26 Glucose 176 H Calcium 9.5 Total Bilirubin 0.4 AST 8 L ALT 12 L Alkaline Phosphatase 79 Troponin I 44 NT-Pro-B Natriuret Pep 2024 H Total Protein 7.7 Albumin 3.2 L Procalcitonin 0.27 Urine Color Urine Clarity Urine pH Ur Specific [place] Urine Protein Urine Ketones Urine Blood Urine Nitrite Urine Bilirubin Urine Urobilinogen Ur Leukocyte Esterase Urine RBC Urine WBC Ur Epithelial Cells Urine Crystals Urine Bacteria Urine Casts Urine Mucus Ur Culture Indicated? Urine Glucose COVID-19 Source SARS-CoV-2 (PCR) Influenza Type A (PCR) Influenza Type B (PCR) RSV (PCR) 04/30/24 04/30/24 15:25 16:13 WBC RBC Hgb Hct MCV MCH MCHC RDW Plt Count MPV Immature Gran % Neutrophils % Lymphocytes % Monocytes % Eosinophils % Basophils % Nucleated RBC % Absolute Neutrophils Absolute Lymphocytes Absolute Monocytes Absolute Eosinophils Absolute Basophils RBC Morphology PT INR APTT D-Dimer VBG Lactate Sodium Potassium Chloride Carbon Dioxide Anion Gap BUN Creatinine Est GFR (CKD-EPI 2020) Glucose Calcium Total Bilirubin AST ALT Alkaline Phosphatase Troponin I NT-Pro-B Natriuret Pep Total Protein Albumin Procalcitonin Urine Color Yellow Urine Clarity Clear Urine pH 5.5 Ur Specific [place] 1.020 Urine Protein 100 H Urine Ketones Negative Urine Blood Small H Urine Nitrite Negative Urine Bilirubin Negative Urine Urobilinogen 0.2 Ur Leukocyte Esterase Negative Urine RBC 0-2 Urine WBC 0-2 Ur Epithelial Cells Rare Urine Crystals Negative Urine Bacteria Negative Urine Casts 0-2 Hyaline Urine Mucus Negative Ur Culture Indicated? No Urine Glucose 100 H COVID-19 Source Nasopharynx SARS-CoV-2 (PCR) Negative Influenza Type A (PCR) Negative Influenza Type B (PCR) Negative RSV (PCR) Negative Last Vital Signs Temp 37 C 04/30/24 14:03 Pulse 99 H 04/30/24 16:31 Resp 26 H 04/30/24 16:31 BP 141/82 H 04/30/24 16:31 Pulse Ox 89 L 04/30/24 16:31 Time Spent Time spent with Patient: 40-54 minutes Time was spent: preparing to see the patient(eg.review tests), obtaining and/or reviewing separately otained hiistory, ordering medications,tests, procedures, referring, communicating with other health chronic care nurse, indepentently interpreting results, counseling the patient and care coordination
--- NOTE | 2024-04-30 17:27 | W.PC.ACHO ---
Registration Status: Primary Language: Preferred Language: ED Information & Data Chief Complaint Chest Pain 04/30/24 14:20 Medical / Surgical History (Last Reviewed 04/07/24 @ 22:20 by Arya Lei MD) Obstructive sleep apnea Chronic venous insufficiency COPD (chronic obstructive pulmonary disease) Diabetic neuropathy Hx of deep venous thrombosis Diabetes mellitus Hypertension Cocaine abuse Cerebral septic emboli GI bleed Osteomyelitis of left fibula Endocarditis Depression MSSA (methicillin susceptible Staphylococcus aureus) septicemia (Last Reviewed 04/07/24 @ 22:20 by Arya Lei MD) S/P endoscopy H/O aortic valve replacement S/P hardware removal S/P percutaneous endoscopic gastrostomy (PEG) tube placement History of ankle surgery S/P spinal surgery Most Recent Vital Signs Temperature 37 C 04/30/24 14:03 Pulse 95 H 04/30/24 17:01 Pulse 95 H 04/30/24 17:01 Respiratory Rate 20 04/30/24 17:01 Respiratory Effort Normal 04/30/24 14:10 Respiratory Depth Normal 04/30/24 14:10 Respiratory Pattern Tachypnea 04/30/24 14:10 Blood Pressure 152/75 H 04/30/24 17:01 Blood Pressure Mean 101 04/30/24 17:01 Pulse Oximetry 89 L 04/30/24 17:01 Oxygen Delivery Method Nasal Cannula 04/30/24 14:03 Oxygen Flow Rate 2 04/30/24 14:03 Pain Level 7 04/30/24 14:03 Allergies Penicillins Adverse Reaction (Severe, Verified 04/29/24 15:01) Vomiting hydrocodone Adverse Reaction (Intermediate, Verified 04/29/24 15:01) vomiting Active Medications Generic Name Dose Route Start Last Admin Trade Name Prince PRN Reason Stop Dose Admin Vancomycin/PEG/NADA/Lysine/Water 1.5 gm in 300 mls @ 200 mls/hr 04/30/24 16:00 04/30/24 16:09 Vancocin Injection IVPB 04/30/24 17:29 200 mls/hr NOW ONE Administration IV IV Catheter Type [Right Upper Saline Lock arm] IV Catheter Type [Right Saline Lock Antecubital] IV Catheter Gauge [Right Upper 20 arm] IV Catheter Gauge [Right 18 Antecubital] Diet Orders Category Date Time Status Regular/Normal [DIET] Nutrition 04/30/24 Dinner Active Diagnostics 04/30/24 04/30/24 04/30/24 Range/Units 17:12 17:10 16:13 WBC (4.4-10.8) 10^3/uL RBC (4.36-5.78) 10^6/uL Hgb (13.5-17.5) g/dL Hct (40.0-50.0) % MCV (80-95) fL MCH (27.0-33.0) pg MCHC (32.0-36.0) % RDW (11.8-14.1) % Plt Count (130-400) 10^3/uL MPV (8.0-11.0) fL Immature Gran % % Neutrophils % % Lymphocytes % % Monocytes % % Eosinophils % % Basophils % % Nucleated RBC % (0.0-0.3) % Absolute Neutrophils (1.2-6.7) 10^3/uL Absolute Lymphocytes (1.2-3.4) 10^3/uL Absolute Monocytes (0.1-0.8) 10^3/uL Absolute Eosinophils (0.0-0.7) 10^3/uL Absolute Basophils (0.0-0.2) 10^3/uL RBC Morphology PT INR APTT D-Dimer VBG Lactate (<or=2.0) mmol/L Sodium (136-145) mmol/L Potassium (3.5-5.1) mmol/L Chloride (98-107) mmol/L Carbon Dioxide (21.0-32.0) mmol/L Anion Gap (3-11) mmol/L BUN (7-18) mg/dL Creatinine (0.70-1.30) mg/dL Est GFR (CKD-EPI 2020) (mL/min/1.73m2) Glucose (74-106) mg/dL Calcium (8.5-10.1) mg/dL Total Bilirubin (0.2-1.0) mg/dL AST (15-37) U/L ALT (16-63) U/L Alkaline Phosphatase (46-116) U/L Troponin I Pending Pending (<or=76) ng/L NT-Pro-B Natriuret Pep (<300) pg/mL Total Protein (6.4-8.2) g/dL Albumin (3.4-5.0) g/dL Procalcitonin ng/mL Urine Color Yellow (Yellow) Urine Clarity Clear (Clear) Urine pH 5.5 (5-8) Ur Specific [place] 1.020 (1.005-1.025) Urine Protein 100 H (Neg-Trace) mg/dL Urine Ketones Negative (Negative) mg/dL Urine Blood Small H (Negative) Urine Nitrite Negative (Negative) Urine Bilirubin Negative (Negative) Urine Urobilinogen 0.2 (Up to 0.2) mg/dL Ur Leukocyte Esterase Negative (Negative) Urine RBC 0-2 (0-2) HPF Urine WBC 0-2 (0-5) HPF Ur Epithelial Cells Rare (Negative) HPF Urine Crystals Negative (Negative) HPF Urine Bacteria Negative (Negative) HPF Urine Casts 0-2 Hyaline (Negative) LPF Urine Mucus Negative (Negative) Ur Culture Indicated? No Urine Glucose 100 H (Negative) mg/dL COVID-19 Source SARS-CoV-2 (PCR) (Negative) Influenza Type A (PCR) (Negative) Influenza Type B (PCR) (Negative) RSV (PCR) (Negative) 04/30/24 04/30/24 04/30/24 Range/Units 15:25 15:04 14:33 WBC 28.24 H* (4.4-10.8) 10^3/uL RBC 5.30 (4.36-5.78) 10^6/uL Hgb 14.0 (13.5-17.5) g/dL Hct 43.2 (40.0-50.0) % MCV 82 (80-95) fL MCH 26.4 L (27.0-33.0) pg MCHC 32.4 (32.0-36.0) % RDW 14.1 (11.8-14.1) % Plt Count 380 (130-400) 10^3/uL MPV 9.6 (8.0-11.0) fL Immature Gran % 1.6 % Neutrophils % 86.2 % Lymphocytes % 3.8 % Monocytes % 8.0 % Eosinophils % 0.1 % Basophils % 0.3 % Nucleated RBC % 0.0 (0.0-0.3) % Absolute Neutrophils 24.34 H (1.2-6.7) 10^3/uL Absolute Lymphocytes 1.07 L (1.2-3.4) 10^3/uL Absolute Monocytes 2.26 H (0.1-0.8) 10^3/uL Absolute Eosinophils 0.03 (0.0-0.7) 10^3/uL Absolute Basophils 0.08 (0.0-0.2) 10^3/uL RBC Morphology Normal PT 11.5 H INR 1.2 H APTT 25.7 D-Dimer VBG Lactate 1.9 (<or=2.0) mmol/L Sodium 137 (136-145) mmol/L Potassium 4.5 (3.5-5.1) mmol/L Chloride 102 (98-107) mmol/L Carbon Dioxide 25.5 (21.0-32.0) mmol/L Anion Gap 9.5 (3-11) mmol/L BUN 32 H (7-18) mg/dL Creatinine 1.4 H (0.70-1.30) mg/dL Est GFR (CKD-EPI 2020) 58.26 (mL/min/1.73m2) Glucose 176 H (74-106) mg/dL Calcium 9.5 (8.5-10.1) mg/dL Total Bilirubin 0.4 (0.2-1.0) mg/dL AST 8 L (15-37) U/L ALT 12 L (16-63) U/L Alkaline Phosphatase 79 (46-116) U/L Troponin I 44 (<or=76) ng/L NT-Pro-B Natriuret Pep 2023 H (<300) pg/mL Total Protein 7.7 (6.4-8.2) g/dL Albumin 3.2 L (3.4-5.0) g/dL Procalcitonin 0.27 ng/mL Urine Color (Yellow) Urine Clarity (Clear) Urine pH (5-8) Ur Specific [place] (1.005-1.025) Urine Protein (Neg-Trace) mg/dL Urine Ketones (Negative) mg/dL Urine Blood (Negative) Urine Nitrite (Negative) Urine Bilirubin (Negative) Urine Urobilinogen (Up to 0.2) mg/dL Ur Leukocyte Esterase (Negative) Urine RBC (0-2) HPF Urine WBC (0-5) HPF Ur Epithelial Cells (Negative) HPF Urine Crystals (Negative) HPF Urine Bacteria (Negative) HPF Urine Casts (Negative) LPF Urine Mucus (Negative) Ur Culture Indicated? Urine Glucose (Negative) mg/dL COVID-19 Source Nasopharynx SARS-CoV-2 (PCR) Negative (Negative) Influenza Type A (PCR) Negative (Negative) Influenza Type B (PCR) Negative (Negative) RSV (PCR) Negative (Negative) 04/30/24 Range/Units 14:09 WBC (4.4-10.8) 10^3/uL RBC (4.36-5.78) 10^6/uL Hgb (13.5-17.5) g/dL Hct (40.0-50.0) % MCV (80-95) fL MCH (27.0-33.0) pg MCHC (32.0-36.0) % RDW (11.8-14.1) % Plt Count (130-400) 10^3/uL MPV (8.0-11.0) fL Immature Gran % % Neutrophils % % Lymphocytes % % Monocytes % % Eosinophils % % Basophils % % Nucleated RBC % (0.0-0.3) % Absolute Neutrophils (1.2-6.7) 10^3/uL Absolute Lymphocytes (1.2-3.4) 10^3/uL Absolute Monocytes (0.1-0.8) 10^3/uL Absolute Eosinophils (0.0-0.7) 10^3/uL Absolute Basophils (0.0-0.2) 10^3/uL RBC Morphology PT Cancelled INR Cancelled APTT Cancelled D-Dimer Cancelled VBG Lactate (<or=2.0) mmol/L Sodium (136-145) mmol/L Potassium (3.5-5.1) mmol/L Chloride (98-107) mmol/L Carbon Dioxide (21.0-32.0) mmol/L Anion Gap (3-11) mmol/L BUN (7-18) mg/dL Creatinine (0.70-1.30) mg/dL Est GFR (CKD-EPI 2020) (mL/min/1.73m2) Glucose (74-106) mg/dL Calcium (8.5-10.1) mg/dL Total Bilirubin (0.2-1.0) mg/dL AST (15-37) U/L ALT (16-63) U/L Alkaline Phosphatase (46-116) U/L Troponin I (<or=76) ng/L NT-Pro-B Natriuret Pep (<300) pg/mL Total Protein (6.4-8.2) g/dL Albumin (3.4-5.0) g/dL Procalcitonin ng/mL Urine Color (Yellow) Urine Clarity (Clear) Urine pH (5-8) Ur Specific [place] (1.005-1.025) Urine Protein (Neg-Trace) mg/dL Urine Ketones (Negative) mg/dL Urine Blood (Negative) Urine Nitrite (Negative) Urine Bilirubin (Negative) Urine Urobilinogen (Up to 0.2) mg/dL Ur Leukocyte Esterase (Negative) Urine RBC (0-2) HPF Urine WBC (0-5) HPF Ur Epithelial Cells (Negative) HPF Urine Crystals (Negative) HPF Urine Bacteria (Negative) HPF Urine Casts (Negative) LPF Urine Mucus (Negative) Ur Culture Indicated? Urine Glucose (Negative) mg/dL COVID-19 Source SARS-CoV-2 (PCR) (Negative) Influenza Type A (PCR) (Negative) Influenza Type B (PCR) (Negative) RSV (PCR) (Negative) 04/30/24 14:09 Blood Culture - Pending Blood 04/30/24 14:09 Blood Culture - Pending Blood Intake and Output - 24 Hour Total 04/30/24 13:52 thru 04/30/24 17:04 Intake Total 50 Output Total 1050 Balance -1000 Weight 77.428 kg Intake: IV 50 Output: Urine 1050 Falls Risk Assessment History of Falls No History 04/30/24 14:10 Contributing Factors Impairments 04/30/24 14:10 Ambulatory Aids Uses ambulatory device 04/30/24 14:10 Tubes/Lines None 04/30/24 14:10 Gait Evaluation W/no contributing factors 04/30/24 14:10 Fall Total Score 28 04/30/24 14:10 Level of Risk Moderate Risk 04/30/24 14:10 Problems (Last Reviewed 04/07/24 @ 22:20 by Arya Lei MD) Hypoxia (Acute) Sepsis (Acute) Chest pain (Acute) Bilateral edema of lower extremity (Acute) Dyspnea (Acute) v v v v v v v v v Sending and/or Receiving Nurses: Please use comment section below to note any information pertinent to the patient hand-off not included above. Information / Comments: Report received from:russell in ed
[2024-04-30 17:38] LABS: Troponin I 33 ng/L (<or=76)
[2024-04-30] MEDS: Enoxaparin 40 MG/0.4 ML SYR SC (18:26)
[2024-04-30 19:52] LABS: Troponin I 31 ng/L (<or=76)
[2024-04-30] MEDS: dilTIAZem 60 MG TAB PO (20:05)
[2024-04-30] MEDS: DULoxetine 30 MG CAP PO (20:05)
[2024-04-30] MEDS: Gabapentin 600 MG TAB PO (20:05)
[2024-04-30] MEDS: Normal Saline Flush 10 ML SYR IVP ×2 (20:06→23:00)
[2024-05-01] VITALS (7 sets, daily range): BP systolic 133–146; BP diastolic 79–95; PULSE 63–77; RESP 16–20; TEMP 36.4–36.8; O2SAT 90–97
[2024-05-01 06:38] LABS: Abs Immature Grans 0.08 10^3/uL (0.0-0.06); Absolute Basophil Count 0.05 10^3/uL (0.0-0.2); Absolute Eosinophil Count 0.09 10^3/uL (0.0-0.7); Absolute Lymphocyte Count 1.49 10^3/uL (1.2-3.4); Absolute Monocyte Count 1.06 10^3/uL (0.1-0.8); Basophils % 0.3 %; Eosinophils % 0.6 %; HGB 13.6 g/dL (13.5-17.5); Immature Grans % 0.5 %; Lymphocytes % 9.8 %; MCH 26.1 pg (27.0-33.0); MCHC 31.6 % (32.0-36.0); MCV 82 fL (80-95); MPV 9.7 fL (8.0-11.0); Neutrophils % 81.8 %; Platelet Count 327 10^3/uL (130-400); RBC 5.22 10^6/uL (4.36-5.78); RDW-SD 42.5 fL; WBC 15.18 10^3/uL (4.4-10.8)
[2024-05-01 06:40] LABS: Absolute Neutrophil Count 12.42 10^3/uL (1.2-6.7)
[2024-05-01 07:00] LABS: Anion Gap 7.8 mmol/L (3-11); BUN 35 mg/dL (7-18); CO2 28.2 mmol/L (21.0-32.0); CREATININE 1.7 mg/dL (0.70-1.30); Chloride 103 mmol/L (98-107); Estimated GFR 46.15 (mL/min/1.73m2); Glucose 139 mg/dL (74-106); Potassium 3.7 mmol/L (3.5-5.1); Sodium 139 mmol/L (136-145); Vancomycin, Random 13.7 ug/mL
[2024-05-01] MEDS: CEFEPIME 1 GM in Normal Saline 50 ML IVPB ×3 (08:35→23:50)
[2024-05-01] MEDS: Buprenorphine/Naloxone 4 mg/1 mg FILM 1 EACH SL (08:35)
[2024-05-01] MEDS: Normal Saline Flush 10 ML SYR IVP ×3 (08:35→19:53)
[2024-05-01] MEDS: Spironolactone 25 MG TAB PO (08:36)
[2024-05-01] MEDS: Cyanocobalamin 500 MCG TAB 1000 MCG PO (08:36)
[2024-05-01] MEDS: Furosemide 40 MG TAB PO (08:36)
[2024-05-01] MEDS: DULoxetine 30 MG CAP PO ×2 (08:36→19:53)
[2024-05-01] MEDS: Gabapentin 600 MG TAB PO ×3 (08:36→19:53)
[2024-05-01] MEDS: dilTIAZem 60 MG TAB PO ×2 (08:36→19:53)
[2024-05-01] MEDS: Aspirin 81 MG CHEW PO (08:36)
[2024-05-01] MEDS: amLODIPine 2.5 MG TAB PO (08:36)
[2024-05-01] MEDS: Esomeprazole 40 MG CAPCR PO (08:36)
[2024-05-01] MEDS: VANCOMYCIN/WATER (PEG) 1.25 GM/250 ML BAG IVPB (10:18)
--- NOTE | 2024-05-01 11:32 | PGE_ITS ---
Date of Service Date of service: 05/01/24 Time of Service: 11:32 Assessment and Plan Assessment and plan (1) Leukocytosis: Status: Acute Assessment and plan: WBC down to 15.18 from 25.98 Suspected RML PNA Continue Emperic abx BC pending (2) Right middle lobe pneumonia: Status: Acute Assessment and plan: Concern for infiltrate Leukocytosis Emperic abx- continue BC pending (3) Opiate dependence: Status: Chronic Assessment and plan: continue buprenorphine. Concern last admission he is still using fentanyl given his presentation and nodding off. Urine positive for cocaine and THC on 04/24 - will recheck urine and send for fentanyl check - positive cocaine and THC again, fentanyl test is pending (4) Bilateral edema of lower extremity: Status: Acute Assessment and plan: Chronic bilateral lower extremity edema (5) Diabetes mellitus: Assessment and plan: Glucose controlled Trulicity on Monday's will bring from home Diabetic neuropathy Daily glucose A1C 12/26/2023 5.9 - 05/01/24 it is 6.0 (6) Chest pain: Status: Resolved Assessment and plan: Chest pain - resolved negative troponins (7) DVT prophylaxis: Status: Acute Assessment and plan: enoxaparin Subjective Subjective Patient reports: no new complaints, pain is less, tolerating liquids well, tolerating a regular diet, voiding w/o difficulty, bowel movement and afebrile; denies flatus, diarrhea or vomiting Interval history since last seen: Mio reports feeling better today. He is awake alert, conversant. He ate breakfast and lunch. Exam Narrative Exam Narrative: Review of Systems: All systems reviewed & are unremarkable except as noted in HPI and below Well-developed, ill-appearing NCAT Tachycardia, no murmur, midline sternotomy scar noted Increased work of breathing, coarse cough, crackles throughout, hypoxic on room air, 92% on 2 L Nondistended abdomen , soft nontender Bilateral lower extremities with chronic edema and venous stasis changes, purple to erythematous discoloration sensitive to touch, not warm, no crepitus, Doppler signal pulses in bilateral feet noted Right-sided CVA deficits Objective Last Vital Signs Temp 36.8 C 05/01/24 09:23 Pulse 77 05/01/24 09:23 Resp 16 05/01/24 09:23 BP 146/85 H 05/01/24 09:23 Pulse Ox 96 05/01/24 09:23 Laboratory Results - last 24 hr 04/30/24 04/30/24 04/30/24 14:09 14:33 15:04 WBC 28.24 H* RBC 5.30 Hgb 14.0 Hct 43.2 MCV 82 MCH 26.4 L MCHC 32.4 RDW 14.1 Plt Count 380 MPV 9.6 Immature Gran % 1.6 Neutrophils % 86.2 Lymphocytes % 3.8 Monocytes % 8.0 Eosinophils % 0.1 Basophils % 0.3 Nucleated RBC % 0.0 Absolute Neutrophils 24.34 H Absolute Lymphocytes 1.07 L Absolute Monocytes 2.26 H Absolute Eosinophils 0.03 Absolute Basophils 0.08 RBC Morphology Normal PT Cancelled 11.5 H INR Cancelled 1.2 H APTT Cancelled 25.7 D-Dimer Cancelled VBG Lactate 1.9 Sodium 137 Potassium 4.5 Chloride 102 Carbon Dioxide 25.5 Anion Gap 9.5 BUN 32 H Creatinine 1.4 H Est GFR (CKD-EPI 2020) 58.26 Glucose 176 H Calcium 9.5 Magnesium Total Bilirubin 0.4 AST 8 L ALT 12 L Alkaline Phosphatase 79 Troponin I 44 NT-Pro-B Natriuret Pep 2024 H Total Protein 7.7 Albumin 3.2 L Procalcitonin 0.27 Urine Color Urine Clarity Urine pH Ur Specific [place] Urine Protein Urine Ketones Urine Blood Urine Nitrite Urine Bilirubin Urine Urobilinogen Ur Leukocyte Esterase Urine RBC Urine WBC Ur Epithelial Cells Urine Crystals Urine Bacteria Urine Casts Urine Mucus Ur Culture Indicated? Urine Glucose Random Vancomycin COVID-19 Source SARS-CoV-2 (PCR) Influenza Type A (PCR) Influenza Type B (PCR) RSV (PCR) 04/30/24 04/30/24 04/30/24 15:25 16:13 17:12 WBC RBC Hgb Hct MCV MCH MCHC RDW Plt Count MPV Immature Gran % Neutrophils % Lymphocytes % Monocytes % Eosinophils % Basophils % Nucleated RBC % Absolute Neutrophils Absolute Lymphocytes Absolute Monocytes Absolute Eosinophils Absolute Basophils RBC Morphology PT INR APTT D-Dimer VBG Lactate Sodium Potassium Chloride Carbon Dioxide Anion Gap BUN Creatinine Est GFR (CKD-EPI 2020) Glucose Calcium Magnesium Total Bilirubin AST ALT Alkaline Phosphatase Troponin I 33 NT-Pro-B Natriuret Pep Total Protein Albumin Procalcitonin Urine Color Yellow Urine Clarity Clear Urine pH 5.5 Ur Specific [place] 1.020 Urine Protein 100 H Urine Ketones Negative Urine Blood Small H Urine Nitrite Negative Urine Bilirubin Negative Urine Urobilinogen 0.2 Ur Leukocyte Esterase Negative Urine RBC 0-2 Urine WBC 0-2 Ur Epithelial Cells Rare Urine Crystals Negative Urine Bacteria Negative Urine Casts 0-2 Hyaline Urine Mucus Negative Ur Culture Indicated? No Urine Glucose 100 H Random Vancomycin COVID-19 Source Nasopharynx SARS-CoV-2 (PCR) Negative Influenza Type A (PCR) Negative Influenza Type B (PCR) Negative RSV (PCR) Negative 04/30/24 05/01/24 19:26 06:04 WBC 15.18 H RBC 5.22 Hgb 13.6 Hct 43.0 MCV 82 MCH 26.1 L MCHC 31.6 L RDW 14.0 Plt Count 327 MPV 9.7 Immature Gran % 0.5 Neutrophils % 81.8 Lymphocytes % 9.8 Monocytes % 7.0 Eosinophils % 0.6 Basophils % 0.3 Nucleated RBC % 0.0 Absolute Neutrophils 12.42 H Absolute Lymphocytes 1.49 Absolute Monocytes 1.06 H Absolute Eosinophils 0.09 Absolute Basophils 0.05 RBC Morphology PT INR APTT D-Dimer VBG Lactate Sodium 139 Potassium 3.7 Chloride 103 Carbon Dioxide 28.2 Anion Gap 7.8 BUN 35 H Creatinine 1.7 H Est GFR (CKD-EPI 2020) 46.15 Glucose 139 H Calcium 9.0 Magnesium 2.0 Total Bilirubin AST ALT Alkaline Phosphatase Troponin I 31 NT-Pro-B Natriuret Pep Total Protein Albumin Procalcitonin Urine Color Urine Clarity Urine pH Ur Specific [place] Urine Protein Urine Ketones Urine Blood Urine Nitrite Urine Bilirubin Urine Urobilinogen Ur Leukocyte Esterase Urine RBC Urine WBC Ur Epithelial Cells Urine Crystals Urine Bacteria Urine Casts Urine Mucus Ur Culture Indicated? Urine Glucose Random Vancomycin 13.7 COVID-19 Source SARS-CoV-2 (PCR) Influenza Type A (PCR) Influenza Type B (PCR) RSV (PCR) Time Spent with Patient Time Spent with Patient: 25-34 minutes Time was spent: preparing to see the patient(eg.review tests), ordering medications,tests, procedures, referring, communicating with other health grounds caretaker, indepentently interpreting results, counseling the patient and care coordination
[2024-05-01 11:38] LABS: Lab Add On Test DONE
--- NOTE | 2024-05-01 11:40 | PHA.REVIEW2 ---
Pharmacy Admission Review Admission Clinical Review Admission Pharmacy Review: DVT prophylaxis (Acute) Right middle lobe pneumonia (Acute) Hypoxia (Acute) Sepsis (Acute) Leukocytosis (Acute) Chest pain (Acute) Bilateral edema of lower extremity (Acute) Dyspnea (Acute) Chest pain (Acute) Penicillins Adverse Reaction (Severe, Verified 04/29/24 15:01) Vomiting hydrocodone Adverse Reaction (Intermediate, Verified 04/29/24 15:01) vomiting Resuscitation Status Full Code Height 5 ft 11 in Weight 77.467 kg Pharmacy Admission Review Renal Dosing Renal Dosing: BUN 35 mg/dL (7-18) H 05/01/24 06:04 Creatinine 1.7 mg/dL (0.70-1.30) H 05/01/24 06:04 Medications needing adjustments: Reviewed (CrCl 51.9 mL/min, BUN increased from 32 and SCr increased from 1.4) List of meds needing interventions: Current medications are okay Anticoagulation Anticoagulation: Hgb 13.6 g/dL (13.5-17.5) 05/01/24 06:04 Hct 43.0 % (40.0-50.0) 05/01/24 06:04 Plt Count 327 10^3/uL (130-400) 05/01/24 06:04 INR 1.2 (0.9-1.1) H 04/30/24 15:04 Creatinine 1.7 mg/dL (0.70-1.30) H 05/01/24 06:04 DVT Prophylaxis: Reviewed Medications: Enoxaparin (40mg daily) Relevant Labs Relevant Labs: Sodium 139 mmol/L (136-145) 05/01/24 06:04 Potassium 3.7 mmol/L (3.5-5.1) 05/01/24 06:04 Chloride 103 mmol/L (98-107) 05/01/24 06:04 Magnesium 2.0 mg/dL 05/01/24 06:04 Electrolytes, C-Reactive P, ESR: Reviewed DM Control DM Control: Glucose 139 mg/dL (74-106) H 05/01/24 06:04 DM Control: Reviewed Insulin Dosing, Diabetic Medication: No diagnosis currently and no medications. A1C pending. Cardiac Review Cardiac Review: Troponin I 31 ng/L (<or=76) 04/30/24 19:26 NT-Pro-B Natriuret Pep 2024 pg/mL (<300) H 04/30/24 14:33 Blood Pressure 146/85 0923 Blood Pressure 141/88 0839 Blood Pressure 134/95 0451 BP, HR, EF%: Reviewed (HR WNL) List meds needing interventions: Has order for amlodipine 2.5mg daily, diltiazem 60mg BID, furosemide 40mg daily and spironolactone 25mg daily QTc Review QTc: Reviewed (479 from 04/30/24) IV to PO Switch IV Medications: Intervened (cefepime and vancomycin. Asked provider if Zofran could be switched to PO, provider was okay with it.) Home Meds Home Med List reviewed: Intervened Relevent Home Meds Not ordered & why?: Qvar (changed to mometasone per pharmacy protocol), lactobacillus, and Anoro (changed to Stiolto per pharmacy protocol) Changed Trulicity to patients own med order and confirmed with nurse that patient uses every Monday. Put order in for Mondays, nurse aware that this will have to be brought in if patient is still here Current Meds Current Medication Order Review: Intervened Comments: Discontinued duplicate APAP order Added 2nd PRN to mometasone order per pharmacy protocol Changed IV ED access Per nursing patient refused inhalers today Pharmacy Antibiotic Review Relevant Labs: Relevant Labs 04/30/24 14:33 Procalcitonin 0.27 WBC 15.18 10^3/uL (4.4-10.8) H 05/01/24 06:04 Procalcitonin 0.27 ng/mL 04/30/24 14:33 Temperature 36.8 C Temperature 36.4 C Temperature 36.4 C Pharmacy Antibiotic Activity: C/S review and Reviewed, no change Comments: Patient is on cefepime and vancomycin, day 1, for pneumonia. Current vancomycin dose is 1250mg q24h with predicted AUC of 587 and trough of 17.3. Reordered level for tomorrow morning with labs due to changing renal function. WBC decreased from 28.24 and blood cultures pending.
[2024-05-01 15:02] LABS: *AMPHETAMINES SCREEN URINE Negative (Negative); *BARBITURATES SCREEN URINE Negative (Negative); *BENZODIAZEPINES SCREEN URINE Negative (Negative); Cannabinoids THC Positive (Negative); Cocaine Screen,Urine Positive (Negative); METHADONE URINE SCREEN Negative (Negative); OPIATES URINE SCREEN Negative (Negative)
[2024-05-01 15:03] LABS: Tricyclic Antidepressants Negative (Negative)
[2024-05-01] MEDS: Enoxaparin 40 MG/0.4 ML SYR SC (17:42)
--- NOTE | 2024-05-01 19:32 | INITIAL_ITS ---
Date of service: 05/01/24 Time of Service: 19:33 Care Management Initial Assmt Initial Assessment Reason for Hospitalization: pneumonia Functional Status/Living Situation Patient Presentation: Mio was sleeping when CM attempted to meet with him. Per RN, he has been resting throughout the day, and has presented with a flat affect. He reported that he was feeling better today than when he arrived. Per report, he is on 2LO2 NC at this time. His WBC reduced from 28 to 15 today; he is on IV antibiotics. Per report, he lives with a signal timer caregiver, which is also his ex , Arline; she is a paid caregiver through the [facility] program. CM will continue to follow. Town of Residence: [place] Resides with: Spouse (Arline) Caregiver/Guardian: /caregiver, Arline Vanegas Employment Status: Unemployed Instrumental Activities of Daily Living (ADLs): Requires support Medications Medication Management: No Issues/Barriers identified Physical Functioning/Mobility Assistive Device: FWW Advance Directives Advance Directives: Do you have an Advance Directive: Y 10/10/19 10:02 AD On File at [facility]: N 06/07/12 08:23 Date Asked 04/30/24 04/30/24 14:42 AD Date Reviewed COLST On File at [facility] COLST Date Scanned Code Status Resuscitation Status Full Code Insurance Coverage/Financial Issues Insurance: [facility] highest needs Care Team Visit Care Team Role Provider Type Trinity Henderson NP MD [facility] STAFF PHYSICIAN Evon Howard MD Primary Care Provider [facility] STAFF PHYSICIAN Trevor Mackenzie MD Emergency Provider [facility] STAFF PHYSICIAN Felix Stewart MD Admit Provider [facility] STAFF PHYSICIAN Attending Provider Discharge Potential Discharge Needs: PCP F/U Appt Anticipated Barriers to Discharge: None Identified Patient/Family Education Needs: Review discharge instructions, discuss Ask Me Three Transportation: Private vehicle Plan: Anticipate Mio will return home once medically cleared. His caregiver, Arline, will drive him home via private vehicle. He will follow up with his PCP and discharge plan of care. CM will continue to follow. Social Determinants of Health Screening Social Determinants of Health last assessed: 05/01/24 Will the Patient Participate in the Screening?: Yes Do you worry about having a steady place to live?: no Problems where you live: no known problems In the past 12 months, have you had to go without electric, gas, oil or water in your home?: no Have you or anyone in your house had to go without enough food to eat?: no Has lack of transportation kept you from medical appointments or from doing things needed for daily living?: no Has anyone in your life made you feel unsafe or unsupported?: no How hard is it for you to pay for the very basics like food, housing, medical care, and heating? Would you say it is:: Not hard at all Do you want help finding or keeping work or a job?: I do not need or want help If for any reason you need help with day-to-day activities such as bathing, pr eparing meals, shopping, managing finances, etc., do you get the help you need?: I don?t need any help How often do you feel lonely or isolated from those around you?: Never Do you speak a language other than Persian at home?: No PFSH All Active Problems (Updated 05/01/24 @ 16:19 by Trinity Henderson NP) DVT prophylaxis (Acute) Right middle lobe pneumonia (Acute) Hypoxia (Acute) Sepsis (Acute) Leukocytosis (Acute) Mild shortness of breath (Acute) Chest pain (Acute) Hypoxia (Acute) Recurrent apnea (Acute) Chest pain (Acute) Hypertensive emergency (Acute) Bilateral edema of lower extremity (Acute) Dyspnea (Acute) Right rotator cuff tear (Acute) Abnormal CT scan, kidney (Acute) Anxiety (Chronic) Medical non-compliance (Acute) [place]agon esophagus (Acute) Opiate dependence (Chronic) managed on suboxone Medical History Obstructive sleep apnea Chronic venous insufficiency COPD (chronic obstructive pulmonary disease) Diabetic neuropathy Hx of deep venous thrombosis on Coumadin Diabetes mellitus Hypertension Cocaine abuse 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 S/P percutaneous endoscopic gastrostomy (PEG) tube placement History of ankle surgery S/P spinal surgery Family History Father No problems noted. Mother COPD (chronic obstructive pulmonary disease) Hypertension Diabetes Heart disease Sister Stroke Social History Smoking/Tobacco Use Status: Current every day Tobacco Type: cigarettes Years smoked: 44 Tobacco: How many years used: 40 Smoking risk assessment performed?: Yes Alcohol Intake: never Drug use: Daily Substance use type: marijuana and crack/cocaine Caregiver/Support person: Yes Household members: friend(s) Housing: house Number of Children: 0 number of grandchildren: 1 current occupation: Disabled Pets and animals: Yes Pets and animals: cat(s) Current gender identity: male What type of physical activity do you participate in: none Do you feel safe at home: Yes Do you feel safe in your relationship?: Yes Additional Social history: Lives with ex- Vanessa, who is his caregiver. Lives in private home. Readmission Within the Past 30 Days Yes or No: Yes Date of First Admission Date of 1st Admission: 04/24/24 Date of this Admission Date of Admission: 04/30/24 Office Visit Since 1st Admission Date of Scheduled Appointment: 05/08/24 at 8:40am ED visits How many ED visits in the past 12 months: 12 Assessment for Readmission Summary of readmission circumstances, based upon interviews: Mio was discharged on 04/26/24, and reported that he felt ready for discharge at that time to this inspector automatic typewriter. He returned to the ED on 04/29 and left AMA. He then returned to the ED on 04/30 after feeling SOB and chest pain, at which time he was admitted for pneumonia. Per RN, he is feeling better today than when he arrived. CM will discuss additional needs with Mio at a later date, as he was not able to engage in assessment with CM today. CM will continue to follow.
[2024-05-02] VITALS (9 sets, daily range): BP systolic 134–159; BP diastolic 80–93; PULSE 69–83; RESP 17–20; TEMP 36.1–36.9; O2SAT 90–96
[2024-05-02 06:25] LABS: Abs Immature Grans 0.04 10^3/uL (0.0-0.06); Absolute Basophil Count 0.08 10^3/uL (0.0-0.2); Absolute Eosinophil Count 0.27 10^3/uL (0.0-0.7); Absolute Lymphocyte Count 1.27 10^3/uL (1.2-3.4); Absolute Monocyte Count 0.84 10^3/uL (0.1-0.8); Absolute Neutrophil Count 6.95 10^3/uL (1.2-6.7); Basophils % 0.8 %; Eosinophils % 2.9 %; HCT 43.5 % (40.0-50.0); Immature Grans % 0.4 %; Lymphocytes % 13.4 %; MCH 26.4 pg (27.0-33.0); MCHC 32.2 % (32.0-36.0); MCV 82 fL (80-95); Monocytes % 8.9 %; Neutrophils % 73.6 %; RBC 5.31 10^6/uL (4.36-5.78); RDW 14.1 % (11.8-14.1); RDW-SD 41.7 fL; WBC 9.45 10^3/uL (4.4-10.8)
[2024-05-02 06:51] LABS: Anion Gap 7.7 mmol/L (3-11); BUN 36 mg/dL (7-18); CO2 31.3 mmol/L (21.0-32.0); CREATININE 1.4 mg/dL (0.70-1.30); Calcium 9.1 mg/dL (8.5-10.1); Chloride 103 mmol/L (98-107); Estimated GFR 58.26 (mL/min/1.73m2); Glucose 137 mg/dL (74-106); Magnesium 2.2 mg/dL; Potassium 4.1 mmol/L (3.5-5.1); Sodium 142 mmol/L (136-145)
[2024-05-02 06:56] LABS: Vancomycin, Random 13.8 ug/mL
[2024-05-02] MEDS: Esomeprazole 40 MG CAPCR PO (07:44)
[2024-05-02] MEDS: Aspirin 81 MG CHEW PO (07:45)
[2024-05-02] MEDS: Gabapentin 600 MG TAB PO ×3 (07:45→20:18)
[2024-05-02] MEDS: DULoxetine 30 MG CAP PO ×2 (07:45→20:18)
[2024-05-02] MEDS: Furosemide 40 MG TAB PO (07:45)
[2024-05-02] MEDS: Spironolactone 25 MG TAB PO (07:46)
[2024-05-02] MEDS: Cyanocobalamin 500 MCG TAB 1000 MCG PO (07:46)
[2024-05-02] MEDS: dilTIAZem 60 MG TAB PO ×2 (07:47→20:18)
[2024-05-02] MEDS: amLODIPine 2.5 MG TAB PO (07:47)
[2024-05-02] MEDS: Buprenorphine/Naloxone 4 mg/1 mg FILM 1 EACH SL (07:47)
[2024-05-02] MEDS: CEFEPIME 1 GM in Normal Saline 50 ML IVPB (07:48)
[2024-05-02] MEDS: Normal Saline Flush 10 ML SYR IVP ×5 (07:49→20:18)
--- NOTE | 2024-05-02 09:19 | W.PM.PROGNOT ---
Date of Service Date of service: 05/02/24 Time of Service: 09:19 Assessment and Plan Assessment and plan (1) Sepsis: Status: Acute Assessment and plan: Sepsis on admission with tachycardia HR 95-97, tachypnea RR 24-26 and WBC at 25 with respiratory source (2) Leukocytosis: Status: Acute Assessment and plan: Initial WBC at 25 now normal Suspected RML PNA Blood Cx GPC in one bottle Repeat Blood Cx D/c cefepime and continue Vancomycin MRSA swab ordered and pending (3) Right middle lobe pneumonia: Status: Acute Assessment and plan: Concern for infiltrate Leukocytosis improving As above (4) Opiate dependence: Status: Chronic Assessment and plan: continue buprenorphine home dosing . Last admission with concerns of ongoing use of fentanyl given his presentation and nodding off. Urine positive for cocaine and THC on 04/24 - will recheck urine and send for fentanyl check - positive cocaine and THC again, fentanyl test is pending (5) Bilateral edema of lower extremity: Status: Acute Assessment and plan: Chronic bilateral lower extremity edema (6) Diabetes mellitus: Assessment and plan: A1C 6.0 glucose controlled Continue fingersticks Trulicity on Monday's will bring from home Diabetic neuropathy Daily glucose A1C 12/26/2023 5.9 - 05/01/24 it is 6.0 (7) Chest pain: Status: Resolved Assessment and plan: No further report of chest pain - resolved on admission negative troponins (8) DVT prophylaxis: Status: Acute Assessment and plan: Continue enoxaparin discussed with Dr. Stewart Subjective Subjective Patient reports: no new complaints, feels better, tolerating liquids well, tolerating a regular diet, voiding w/o difficulty, flatus and shortness of breath; denies nausea, afebrile or fever Exam Narrative Exam Narrative: Constitutional The patient is sitting in bed comfortable , without acute distress HENMT: Facial structures with normal appearance, O2 2 l/min via NC Neuro:alert and oriented X4 , no neurological focal deficit Chest:Chest is symmetrical and normal appearance Resp: shallow breathing, scattered ronchi , diminished RML Cardio: regular rhythm, S1, S2, no murmur, positive radial and pedal pulses GI: Abdomen is not distended, soft and non tender, bowel sounds are present : Negative Costovertebral angle tenderness, no bladder distension Extremities: strength 5/5 to bilateral lower and upper extremities Psych: RASS 0, congruent mood and normal affect. Objective Last Vital Signs Temp 36.2 C L 05/02/24 07:59 Pulse 74 05/02/24 07:59 Resp 18 05/02/24 07:59 BP 159/85 H 05/02/24 07:59 Pulse Ox 94 05/02/24 08:58 Laboratory Results - last 24 hr 05/01/24 05/01/24 05/01/24 06:04 11:36 14:17 WBC RBC Hgb Hct MCV MCH MCHC RDW Plt Count MPV Immature Gran % Neutrophils % Lymphocytes % Monocytes % Eosinophils % Basophils % Nucleated RBC % Absolute Neutrophils Absolute Lymphocytes Absolute Monocytes Absolute Eosinophils Absolute Basophils Sodium Potassium Chloride Carbon Dioxide Anion Gap BUN Creatinine Est GFR (CKD-EPI 2020) Glucose Hemoglobin A1c 6.0 H Calcium Magnesium Random Vancomycin Urine Opiates Screen Negative Urine Methadone Screen Negative Ur Barbiturates Screen Negative Ur Tricyclics Screen Negative Ur Amphetamines Screen Negative U Benzodiazepines Scrn Negative Urine Cocaine Screen Positive A Ur THC Screen Positive A Add-On Test Request DONE 05/02/24 06:03 WBC 9.45 RBC 5.31 Hgb 14.0 Hct 43.5 MCV 82 MCH 26.4 L MCHC 32.2 RDW 14.1 Plt Count MPV Immature Gran % 0.4 Neutrophils % 73.6 Lymphocytes % 13.4 Monocytes % 8.9 Eosinophils % 2.9 Basophils % 0.8 Nucleated RBC % 0.0 Absolute Neutrophils 6.95 H Absolute Lymphocytes 1.27 Absolute Monocytes 0.84 H Absolute Eosinophils 0.27 Absolute Basophils 0.08 Sodium 142 Potassium 4.1 Chloride 103 Carbon Dioxide 31.3 Anion Gap 7.7 BUN 36 H Creatinine 1.4 H Est GFR (CKD-EPI 2020) 58.26 Glucose 137 H Hemoglobin A1c Calcium 9.1 Magnesium 2.2 Random Vancomycin 13.8 Urine Opiates Screen Urine Methadone Screen Ur Barbiturates Screen Ur Tricyclics Screen Ur Amphetamines Screen U Benzodiazepines Scrn Urine Cocaine Screen Ur THC Screen Add-On Test Request Time Spent with Patient Time Spent with Patient: >50 minutes Time was spent: preparing to see the patient(eg.review tests), obtaining and/or reviewing separately otained hiistory, ordering medications,tests, procedures, referring, communicating with other health healthcare manager, indepentently interpreting results, counseling the patient and care coordination
--- NOTE | 2024-05-02 09:33 | CMPROGNOTE_ITS ---
Date of service: 05/02/24 Time of Service: 09:33 Care Management Progress Note Progress Note Text Progress Note Text: Mio was lying in bed when CM met with him. He stated that he is doing ok, but is still not feeling well. Per report, he remains on 2LO2 and is being treated with IV antibiotics for pneumonia. He stated that he would be happy to have supplemental O2 at home, as he often feels SOB. He also reported that he is a smoker, which as CM explained, may be a barrier to obtaining O2 at home. He would also need to meet criteria for home O2, which would be assessed by RT and MD. CM discussed community supports for smoking cessation, which Mio showed some interest in, specifically in obtaining nicotine patches. CM will send a referral to [facility] for support with smoking cessation. CM will continue to follow. Discharge Potential Discharge Needs: PCP F/U Appt Anticipated Barriers to Discharge: None Identified Patient/Family Education Needs: Review discharge instructions, discuss Ask Me Three Transportation: Private vehicle Plan: Anticipate Mio will return home once medically cleared. His caregiver, Arline, will drive him home via private vehicle. He will follow up with his PCP and discharge plan of care. CM will continue to follow. Social Determinants of Health Screening Social Determinants of Health last assessed: 05/02/24 Will the Patient Participate in the Screening?: Yes Do you worry about having a steady place to live?: no Problems where you live: no known problems In the past 12 months, have you had to go without electric, gas, oil or water in your home?: no Have you or anyone in your house had to go without enough food to eat?: no Has lack of transportation kept you from medical appointments or from doing things needed for daily living?: no Has anyone in your life made you feel unsafe or unsupported?: no How hard is it for you to pay for the very basics like food, housing, medical care, and heating? Would you say it is:: Not hard at all Do you want help finding or keeping work or a job?: I do not need or want help If for any reason you need help with day-to-day activities such as bathing, preparing meals, shopping, managing finances, etc., do you get the help you need?: I don?t need any help How often do you feel lonely or isolated from those around you?: Never Do you speak a language other than Vietnamese at home?: No
[2024-05-02] MEDS: VANCOMYCIN/WATER (PEG) 1.25 GM/250 ML BAG IVPB (10:39)
[2024-05-02] MEDS: Albuterol HFA 8 GM 60 PUFF INH IH (10:45)
[2024-05-02 17:05] LABS: MRSA PCR Negative (Negative)
[2024-05-02] MEDS: Enoxaparin 40 MG/0.4 ML SYR SC (18:00)
[2024-05-03] VITALS (9 sets, daily range): BP systolic 122–145; BP diastolic 82–96; PULSE 69–101; RESP 16–22; TEMP 35.4–36.5; O2SAT 89–97
[2024-05-03 07:04] LABS: Abs Immature Grans 0.05 10^3/uL (0.0-0.06); Absolute Basophil Count 0.08 10^3/uL (0.0-0.2); Absolute Eosinophil Count 0.32 10^3/uL (0.0-0.7); Absolute Lymphocyte Count 1.53 10^3/uL (1.2-3.4); Absolute Monocyte Count 0.53 10^3/uL (0.1-0.8); Absolute Neutrophil Count 4.38 10^3/uL (1.2-6.7); Basophils % 1.2 %; Eosinophils % 4.6 %; HCT 44.4 % (40.0-50.0); HGB 14.3 g/dL (13.5-17.5); Immature Grans % 0.7 %; Lymphocytes % 22.2 %; MCH 26.3 pg (27.0-33.0); MCHC 32.2 % (32.0-36.0); MCV 82 fL (80-95); MPV 9.3 fL (8.0-11.0); Monocytes % 7.7 %; Neutrophils % 63.6 %; Platelet Count 437 10^3/uL (130-400); RBC 5.43 10^6/uL (4.36-5.78); RDW 13.9 % (11.8-14.1); RDW-SD 40.7 fL; WBC 6.89 10^3/uL (4.4-10.8)
[2024-05-03 07:15] LABS: Anion Gap 6.8 mmol/L (3-11); BUN 30 mg/dL (7-18); CO2 30.2 mmol/L (21.0-32.0); CREATININE 1.2 mg/dL (0.70-1.30); Calcium 9.4 mg/dL (8.5-10.1); Chloride 104 mmol/L (98-107); Glucose 118 mg/dL (74-106); Potassium 4.1 mmol/L (3.5-5.1); Sodium 141 mmol/L (136-145)
[2024-05-03] MEDS: Buprenorphine/Naloxone 4 mg/1 mg FILM 1 EACH SL (08:28)
[2024-05-03] MEDS: Spironolactone 25 MG TAB PO (08:29)
[2024-05-03] MEDS: DULoxetine 30 MG CAP PO ×2 (08:29→19:43)
[2024-05-03] MEDS: Furosemide 40 MG TAB PO (08:29)
[2024-05-03] MEDS: dilTIAZem 60 MG TAB PO (08:29)
[2024-05-03] MEDS: Gabapentin 600 MG TAB PO ×3 (08:30→19:43)
[2024-05-03] MEDS: Aspirin 81 MG CHEW PO (08:30)
[2024-05-03] MEDS: Esomeprazole 40 MG CAPCR PO (08:30)
[2024-05-03] MEDS: Cyanocobalamin 500 MCG TAB 1000 MCG PO (08:30)
[2024-05-03] MEDS: Normal Saline Flush 10 ML SYR IVP ×4 (08:30→19:44)
[2024-05-03] MEDS: amLODIPine 2.5 MG TAB PO (08:30)
--- NOTE | 2024-05-03 09:46 | PGE_ITS ---
Date of Service Date of service: 05/03/24 Time of Service: 09:46 Assessment and Plan Assessment and plan (1) Sepsis: Start date: 05/03/24 Start time: 09:45 Status: Acute Assessment and plan: as per admission data: Met sepsis criteria with tachycardia HR 95-97, tachypnea RR 24-26 and WBC at 25 with respiratory source And as below (2) Leukocytosis: Start date: 05/03/24 Start time: 09:45 Status: Acute Assessment and plan: Initial WBC at 25 now normal Suspected RML PNA Blood Cx GPC in clusters in one bottle only- no growth in second bottle Staph sp non -aureus :change vanco to ceftriaxone Repeat Blood negative X 24 h D/c Vancomycin - Doxycycline IV MRSA swab negative Wean O2 for Sat 88-92% CBC in AM (3) Right middle lobe pneumonia: Status: Acute Assessment and plan: Imaging concerning for infiltrate Leukocytosis resolved And as above (4) Opiate dependence: Status: Chronic Assessment and plan: Ongoing Tx with buprenorphine. Concerns last admission he is still using fentanyl given his presentation and nodding off. Urine positive for cocaine and THC on 04/24 - will recheck urine and send for fentanyl check - positive cocaine and THC again, fentanyl test is pending (5) Bilateral edema of lower extremity: Status: Acute Assessment and plan: Chronic bilateral lower extremity ; mostly chronic discoloration at this time (6) Diabetes mellitus: Assessment and plan: Last A1C 6.0 Continue fingersticks BID Trulicity on Monday's will bring from home Diabetic neuropathy A1C 12/26/2023 5.9 - 05/01/24 it is 6.0 (7) Chest pain: Status: Resolved Assessment and plan: Resolved: No further report of chest pain on admission negative troponins (8) Hypertension: Assessment and plan: diltiazem stopped by PCP as per RN and filled on 12/29 as per pharmacy for 30 days; was changed to aldactone Will continue only aldactone (9) DVT prophylaxis: Status: Acute Assessment and plan: LMWH Discussed with Dr. Stewart Subjective Subjective Patient reports: no new complaints, feels better, tolerating liquids well, tolerating a regular diet, voiding w/o difficulty, flatus, bowel movement, shortness of breath (improving) and afebrile; denies diarrhea, blood in stool, nausea or vomiting Exam Narrative Exam Narrative: Constitutional The patient is sitting in bed comfortable , without acute distress HENMT: Facial structures with normal appearance, O2 1l/min via NC with RA trial Neuro:alert and oriented X4, moves all 4 ext. Resp: shallow breathing, scattered ronchi clearing with cough, diminished bases Cardio: regular rhythm, S1, S2, no murmur, positive radial and pedal pulses,no edema GI: Abdomen is not distended, soft and non tender, bowel sounds are present : Negative Costovertebral angle tenderness, no bladder distension Psych: RASS 0, congruent mood and normal affect. Objective Last Vital Signs Temp 35.7 C L 05/03/24 07:07 Pulse 83 05/03/24 07:07 Resp 22 05/03/24 07:07 BP 122/88 05/03/24 07:07 Pulse Ox 95 05/03/24 08:11 Laboratory Results - last 24 hr 05/02/24 05/03/24 14:29 06:21 WBC 6.89 RBC 5.43 Hgb 14.3 Hct 44.4 MCV 82 MCH 26.3 L MCHC 32.2 RDW 13.9 Plt Count 437 H MPV 9.3 Immature Gran % 0.7 Neutrophils % 63.6 Lymphocytes % 22.2 Monocytes % 7.7 Eosinophils % 4.6 Basophils % 1.2 Nucleated RBC % 0.0 Absolute Neutrophils 4.38 Absolute Lymphocytes 1.53 Absolute Monocytes 0.53 Absolute Eosinophils 0.32 Absolute Basophils 0.08 Sodium 141 Potassium 4.1 Chloride 104 Carbon Dioxide 30.2 Anion Gap 6.8 BUN 30 H Creatinine 1.2 Est GFR (CKD-EPI 2020) 70.10 Glucose 118 H Calcium 9.4 MRSA (TEM-PCR) Negative Time Spent with Patient Time Spent with Patient: >50 minutes Time was spent: preparing to see the patient(eg.review tests), obtaining and/or reviewing separately otained hiistory, ordering medications,tests, procedures, referring, communicating with other health care transport nurse, indepentently interpreting results, counseling the patient and care coordination
--- NOTE | 2024-05-03 11:14 | CHAPLAIN ---
Mio was sitting up in bed when I visited. The room was dark. I explained my role and offered support. Mio did not seem interested in further conversation.
[2024-05-03] MEDS: VANCOMYCIN/WATER (PEG) 1.25 GM/250 ML BAG IVPB (11:16)
[2024-05-03] MEDS: DOXYCYCLINE 100 MG in Normal Saline 100 ML IVPB ×2 (11:16→22:06)
--- NOTE | 2024-05-03 13:18 | NUR.NOTE ---
Reviewed documentation by Doc Whelan, student nurse and agree with documentation. Masha Denson, MSN, RNC-OB, clinical instructor
[2024-05-03 15:22] LABS: Fentanyl Scr w/Rfx Confirm Positive ng/mL (<1)
[2024-05-03] MEDS: Enoxaparin 40 MG/0.4 ML SYR SC (17:10)
[2024-05-03] MEDS: cefTRIAXone 1 GM/50 ML BAG IVPB (17:10)
--- NOTE | 2024-05-03 18:29 | PDOC.CMPRO ---
Date of service: 05/03/24 Time of Service: 18:29 Care Management Progress Note Progress Note Text Progress Note Text: Mio was lying in bed when CM met with him. He stated that he is doing ok, and is now weaned off supplemental O2, but he is still not feeling well. He reported that it takes a lot out of him to walk to the bathroom and back. CM discussed the importance of moving around while in the hospital, and he stated that he sat in the chair for a couple hours today. CM discussed his plan to quit smoking, and he stated that out of a scale from 1-10 that his motivation level is a 5. He reported that he has already made a plan to eat some skittles every time he wants a cigarette, and he has asked Arline, his caregiver, to purchase some skittles for him. He stated that Arline will be supportive of him quitting smoking. CM sent a referral to [employer] for support with smoking cessation resources, which he was happy about; he is hoping to have support with obtaining nicotine patches in the community. Mio talked about his daughter and grandkids, which he stated are his whole world, speaking about them with pride. CM discussed discharge, which may be close, as he is on room air. CM will continue to follow. Discharge Potential Discharge Needs: PCP F/U Appt Anticipated Barriers to Discharge: None Identified Patient/Family Education Needs: Review discharge instructions, discuss Ask Me Three Transportation: Private vehicle Plan: Anticipate Mio will return home once medically cleared. His caregiver, Arline, will drive him home via private vehicle. He will follow up with his PCP and discharge plan of care. CM will continue to follow. Social Determinants of Health Screening Social Determinants of Health last assessed: 05/03/24 Will the Patient Participate in the Screening?: Yes Do you worry about having a steady place to live?: no Problems where you live: no known problems In the past 12 months, have you had to go without electric, gas, oil or water in your home?: no Have you or anyone in your house had to go without enough food to eat?: no Has lack of transportation kept you from medical appointments or from doing things needed for daily living?: no Has anyone in your life made you feel unsafe or unsupported?: no How hard is it for you to pay for the very basics like food, housing, medical care, and heating? Would you say it is:: Not hard at all Do you want help finding or keeping work or a job?: I do not need or want help If for any reason you need help with day-to-day activities such as bathing, preparing meals, shopping, managing finances, etc., do you get the help you need?: I don?t need any help How often do you feel lonely or isolated from those around you?: Never Do you speak a language other than Arabic at home?: No
[2024-05-04 03:19] VITALS: BP 141/83; PULSE 88; RESP 16; TEMP 36.8; O2SAT 96
[2024-05-04 06:59] LABS: Abs Immature Grans 0.08 10^3/uL (0.0-0.06); Absolute Basophil Count 0.11 10^3/uL (0.0-0.2); Absolute Eosinophil Count 0.26 10^3/uL (0.0-0.7); Absolute Lymphocyte Count 1.82 10^3/uL (1.2-3.4); Absolute Monocyte Count 0.72 10^3/uL (0.1-0.8); Absolute Neutrophil Count 3.35 10^3/uL (1.2-6.7); Basophils % 1.7 %; Eosinophils % 4.1 %; HCT 44.7 % (40.0-50.0); HGB 14.6 g/dL (13.5-17.5); Immature Grans % 1.3 %; Lymphocytes % 28.7 %; MCH 26.4 pg (27.0-33.0); MCHC 32.7 % (32.0-36.0); MCV 81 fL (80-95); MPV 9.4 fL (8.0-11.0); Monocytes % 11.4 %; Neutrophils % 52.8 %; Platelet Count 468 10^3/uL (130-400); RBC 5.54 10^6/uL (4.36-5.78); RDW-SD 41.2 fL; WBC 6.34 10^3/uL (4.4-10.8)
[2024-05-04 07:13] LABS: Anion Gap 6.1 mmol/L (3-11); BUN 27 mg/dL (7-18); CO2 29.9 mmol/L (21.0-32.0); CREATININE 1.2 mg/dL (0.70-1.30); Calcium 9.1 mg/dL (8.5-10.1); Chloride 106 mmol/L (98-107); Glucose 97 mg/dL (74-106); Potassium 4.2 mmol/L (3.5-5.1); Sodium 142 mmol/L (136-145)
[2024-05-04 07:54] VITALS: BP 149/99; PULSE 83; RESP 20; TEMP 36.5; O2SAT 92
[2024-05-04] MEDS: Buprenorphine/Naloxone 4 mg/1 mg FILM 1 EACH SL (07:58)
[2024-05-04] MEDS: Aspirin 81 MG CHEW PO (07:59)
[2024-05-04] MEDS: Gabapentin 600 MG TAB PO (07:59)
[2024-05-04] MEDS: Esomeprazole 40 MG CAPCR PO (07:59)
[2024-05-04] MEDS: DULoxetine 30 MG CAP PO (07:59)
[2024-05-04] MEDS: Cyanocobalamin 500 MCG TAB 1000 MCG PO (07:59)
[2024-05-04] MEDS: Furosemide 40 MG TAB PO (07:59)
[2024-05-04] MEDS: Spironolactone 25 MG TAB PO (07:59)
[2024-05-04] MEDS: amLODIPine 2.5 MG TAB PO (07:59)
[2024-05-04] MEDS: Normal Saline Flush 10 ML SYR IVP (08:04)
[2024-05-04] MEDS: DOXYCYCLINE 100 MG in Normal Saline 100 ML IVPB (10:59)
--- NOTE | 2024-05-04 11:05 | IN_ITS ---
Date of service: 05/04/24 Time of Service: 10:35 PT Notes Visit Reasons: pneumonia Inpatient Physical Therapy Evaluation Certification Period:? From 05/04/24 through 05/18/24 I certify the need for these services as being medically necessary and skilled as furnished under this plan of treatment while under my care. Please sign and return within 14 days if you agree with the plan of care listed below.? Thank you for this referral! ? Referring Physician? Date Referring Doctor:?Kristin Mac PT Orders: PT CONSULT for safety consult for discharge. Precautions: N/A Patient Profile/Admitting Diagnosis:? The patient is a 58 yo male adm on 04/30/2024 with pneumonia. 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 He reports that he has a walker at home but generally does not use it but uses wall or furniture for assistance if needed. He has grab bars in his bathroom and a ramp to enter. He reports that he has a time clock inspector ocular care aide that lives with him. 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 Subjective: Patient reports that he has a walker at home. He has a ramp to enter his home and does not need to do any stairs once inside. He reports reports that he has full-time care provided by his ex-. Objective: Mental Status: Patient is alert and oriented. Pain: N/A ROM: Left UE: WFL right UE shoulder flexion/abduction limited to 90 degrees Bilateral LE WFL for functional mobility Strength: Upper extremities: Right UE grossly 3+/5 left UE grossly 4+/5 Lower extremities: Right LE grossly 4+/5 left LE grossly 5/5 Bed Mobility: Supine to sit standby assist Tranfers: Sit to stand with standby assist. Lists slightly to the left when pushing up to stand but transitions to a neutral trunk position once standing. Gait: Ambulated feet 100 feet using front wheeled rolling walker on room air with contact-guard to standby assist. Balance: Able to maintain static and dynamic sitting independently. Standby assist for maintaining static and dynamic standing. Patient was able to maintain static standing with standby assist without upper extremity support. [facility] AM-PAC 6 clicks Basic Mobility Inpatient Short Form: Raw Score:??22? CMS Score:91 Informed Consent/Education:? Patient instructed in purpose of PT consult and plan of care and is agreeable. Patient was also instructed to use walker upon return to home and was agreeable to this plan. Assessment:? Patient is a?58year old male adm on 04/30/24 for pneumonia.? Patient presents with decreased strength, decreased functional mobility, decreased balance and difficulty with ambulation. The patient would benefit from skilled inpatient services to improve these impairments to maximize function and safety until cleared medically for discharge or upon meeting all physical therapy goals. Upon D/C recommend use of walker at home until pt regains his endurance and his mobility is fully back to his baseline. Patient is assessed as:?? Moderate 02926?? based on the following: History: See above Examination: see above Presentation: Evolving clinical presentation? Decision Making:? Moderate (1-2 history, 2-3 exam, evolving, mod-30 mins) Physical Therapy Goals: 1 week Able to get in/out of bed independently. Able to perform sit to/from stand independently. Able to walk feet with rolling walker independently. Independent with home exercise program Plan of Care/Treatment Plan: PT 1-2x/day, 7 days/week x 1 week until medically cleared for discharge or achieves all of his physical therapy goals. Plan of care has been reviewed with the [employer]AF[employer]Y PROGRAM COORDINATOR providing the service under Physical Therapy direction. Initiate Physical Therapy intervention for strengthening, bed mobility, transfers, gait, stairs, balance training, use of assistive device. DISCHARGE RECOMMENDATIONS: Home with caregiver and use of rolling walker for safety. Billing Charges: Treatment Units Time Duration Manual Therapy(54674) Hands-on techniques to modulate pain increase joint range of motion reduce or eliminate soft tissue swelling, inflammation, or restriction facilitate relaxation and improve contractile and non-contractile tissue extensibility ? ? Therapeutic Procedures (75112) Instruction in therapeutic exercises to develop strength and endurance, range of motion and flexibility. HEP instruction and review: Provided skilled instruction in proper exercise performance: Provided skilled manual cues to facilitate proper muscle recruitment and/or movement pattern Neurological Re-Education(28489) To improve balance, coordination, kinesthetic and proprioceptive sensations. ? ? Ultrasound(03908) To promote healing. ? ? Gait Training(93314) ? ? Therapeutic Activity(51935) Instruction in dynamic activities with one on one patient contact by the provider to improve functional performance as follows: ? ? Self Care Training(12517) ? ? E-Stim (Attended)(84801) ? ? Low IE(29703) Mod IE(93203) 1 ? 35 minutes ? High IE(29092) ? ? Time Coded Treatment Time ? Total Treatment Time ? 35 minutes Informed consent Prior to the start and throughout the course of the examination and treatment, patient was made aware of the specifics and purpose of the physical assessment and treatment procedures. Appropriate draping procedures were utilized to protect modesty where applicable.
[2024-05-04 11:27] VITALS: O2SAT 92
--- NOTE | 2024-05-04 12:32 | W.PM.DS.N ---
Date of service: 05/04/24 Time of Service: 12:32 DS: Diagnosis Discharge Diagnosis (1) Sepsis: Status: Acute (2) Leukocytosis: Status: Acute (3) Right middle lobe pneumonia: Status: Acute (4) Opiate dependence: Status: Chronic (5) Bilateral edema of lower extremity: Status: Acute (6) Diabetes mellitus: (7) Chest pain: Status: Resolved (8) Hypertension: Discharge Plan Disposition Patient Disposition: Home Condition: Improving Discharge Details Reason For Visit: pneumonia Admit Date/Time: 04/30/24 16:44 Admit Provider: Felix Stewart Attending Provider: Felix Stewart Primary Care Provider: Evon Howard Hospital Course Hospital Course: This is a 58-year-old male patient past medical history significant for CVA with right-sided hemiparesis, diabetes mellitus type 2 controlled, hypertension, opioid use disorder, MSSA endocarditis presented to the emergency department with chest pain shortness of breath and generalized discomfort. Workup in the emergency department concerning for a right middle lobe infiltrate. He was admitted with sepsis without septic shock treated with cefepime and vancomycin. Cardiac workup with no acute ischemic changes serial troponins negative. PE ruled out by CTA. He was admitted to the medical surgical unit under hospitalist services for further management. Continue to improve with treatment. His antibiotics were down to ceftriaxone and doxycycline. Hemodynamically he has remained stable. Weaned off oxygen and oxygenating well on room air. Physical therapy did evaluate and recommendations are for walker at all times for gait safety and stability. He will be discharged to home to continue antibiotic course to complete 7 days. Discharged home by private vehicle with family no new services will follow-up outpatient with primary care provider or return sooner for new or worsening symptoms discussed with DR Stewart Home Meds and New Rx's Prescriptions: New doxycycline hyclate 100 mg capsule 100 mg PO BID Qty: 5 0RF cefpodoxime 200 mg tablet 200 mg PO BID Qty: 5 0RF Rx Instructions: must administer with a meal/food Continued esomeprazole magnesium [Nexium] 40 mg capsule,delayed release(DR/EC) 40 mg PO DAILY Trulicity 4.5 mg/0.5 mL pen injector 4.5 mg subcut QWEEK Patient Comments: takes on monday albuterol sulfate 90 mcg/actuation HFA aerosol inhaler 2 inh inhalation Q6H PRN aspirin 81 mg Tablet 81 mg PO DAILY duloxetine 30 mg Capsule,Delayed Release(Dr/Ec) 30 mg PO BID acetaminophen [Tylenol] 325 mg tablet 1,000 mg PO Q6H PRN Anoro Ellipta 62.5-25 mcg/actuation blister with device 1 ea INHALATION DAILY Patient Comments: INHALE ONE PUFF BY MOUTH EVERY DAY buprenorphine-naloxone [Suboxone] 4-1 mg film 1 film sublingual DAILY Patient Comments: PLACE ONE FILM UNDER THE TONGUE EVERY DAY cyanocobalamin (vitamin B-12) [Vitamin B-12] 1,000 mcg tablet 1,000 mcg PO DAILY Qvar RediHaler 80 mcg/actuation HFA aerosol breath activated 1 inh INHALATION BID PRN Patient Comments: INHALE ONE PUFF BY MOUTH TWICE A DAY NEEDED furosemide [Lasix] 40 mg Tablet 40 mg PO DAILY Qty: 0 0RF spironolactone 25 mg Tablet 25 mg PO DAILY Qty: 30 0RF amlodipine 2.5 mg tablet 2.5 mg PO DAILY Patient Comments: TAKE ONE TABLET BY MOUTH EVERY DAY gabapentin 600 mg tablet 600 mg PO TID Patient Comments: TAKE ONE TABLET BY MOUTH THREE TIMES A DAY Lactobacillus acidophilus 500 million cell Capsule 500 mmu cells PO TID Qty: 30 0RF Discharge Instructions Instructions: Pneumonia, Adult (DC) Additional Instructions: finish antibiotics as prescribed resume usual medications as directed push fluids to stay well hydrated. Stand Alone Forms: Nursing Discharge Form Referrals: Evon Howard MD [Primary Care Provider] - (Please call to schedule a post discharge follow-up appointment with your PCP.) Activity:: Activity as Tolerated Equipment/Supplies:: No Equipment Needed Diet:: As Tolerated Discharge Orders Discharge Orders: Discharge Order (Routine); Ordered 05/04/24 Ordered By: Nely Carnes DS: Summary Time Spent with Patient providing and/or coordinating discharge services: Greater than 30 minutes Status at Discharge Functional status at discharge: uses cane/walker Overall status at discharge: patient is back to baseline Mental Status: mental status grossly normal Speech and Movement: speech and movement normal Mood: congruent mood Affect: normal affect Quality:SDOH Health Related Social Needs: No Data to Display Exam Const General: cooperative, comfortable, no acute distress and ill appearing chronically Nutritional Appearance: thin Orientation: alert, awake and oriented x3 HENMT Head: normal to inspection, normocephalic and atraumatic Face and sinus: abnormal facial exam (right facial droop, chronic) Mouth: moist mucous membranes Eyes General: appearance normal, both eyes and all related structures Neck Neck: normal visual inspection and full ROM Chest Chest: normal inspection of the chest Resp Effort & Inspection: normal respiratory effort and no respiratory distress Auscultation: diminished lung sounds Cardio Rate: regular rate Rhythm: regular rhythm GI Inspection: normal to inspection and non-distended Palpation: soft and nontender Skin General skin exam: dry skin Other: Chronic discoloration to bilateral lower extremities Neuro General: patient alert, patient awake and patient oriented x3 Other: right sided hemiparesis from old CVA Extrem General: normal to inspection, capillary refill normal, pedal edema present (bilateral lower extremity edema) and no calf tenderness Psych Appearance: grossly normal Mental Status: mental status grossly normal Speech and Movement: speech and movement normal Mood: congruent mood Affect: normal affect DS: Data Vitals/I&O Vitals and I&O: Vital Signs Temperature 36.5 C 05/04/24 07:54 Temperature Source Temporal Artery Scan 05/04/24 07:54 Pulse 83 05/04/24 07:54 Pulse Rhythm Regular 04/30/24 17:46 Pulse 97 H 04/30/24 17:20 Respiratory Rate 20 05/04/24 07:54 Respiratory Effort Short of Breath 04/30/24 17:46 Respiratory Depth Normal 04/30/24 17:46 Respiratory Pattern Normal 04/30/24 17:46 Blood Pressure 149/99 H 05/04/24 07:54 Blood Pressure Mean 87 04/30/24 17:16 Pulse Oximetry 92 05/04/24 11:27 Oxygen Delivery Method Room Air 05/04/24 11:27 Oxygen Flow Rate 0 05/04/24 11:27 Pain Level 2 05/04/24 08:32 Comment oxygen therapy d/c'd at this time, per nurse and provider due to patient being above parameters 05/03/24 10:38 Intake & Output 05/03/24 05/04/24 05/04/24 23:59 11:59 23:59 Intake Total 1350 / 1710 980 / 980 Output Total 800 / 1275 200 / 200 Balance 550 / 435 780 / 780 Intake: IV 750 / 750 500 / 500 Oral 600 / 960 480 / 480 Output: Urine 800 / 1275 200 / 200 Other: Urine Color Yellow Yellow Urine Appearance Clear Clear Urine Odor None Comment pt reports voiding Data Completed and Pending Labs on day of discharge: Labs from last 24 hours 05/04/24 05/01/24 06:23 14:17 WBC 6.34 RBC 5.54 Hgb 14.6 Hct 44.7 MCV 81 MCH 26.4 L MCHC 32.7 RDW 14.0 Plt Count 468 H MPV 9.4 Immature Gran % 1.3 Neutrophils % 52.8 Lymphocytes % 28.7 Monocytes % 11.4 Eosinophils % 4.1 Basophils % 1.7 Nucleated RBC % 0.0 Absolute Neutrophils 3.35 Absolute Lymphocytes 1.82 Absolute Monocytes 0.72 Absolute Eosinophils 0.26 Absolute Basophils 0.11 Sodium 142 Potassium 4.2 Chloride 106 Carbon Dioxide 29.9 Anion Gap 6.1 BUN 27 H Creatinine 1.2 Est GFR (CKD-EPI 2020) 70.10 Glucose 97 Calcium 9.1 Urine Fentanyl Screen Positive A Ur Fentanyl Confirm Pending Ur Norfentanyl Confirm Pending Preliminary micro results at discharge 04/30/24 21:56 Blood Culture - Preliminary Blood Staphylococcus epidermidis 04/30/24 15:00 Blood Culture - Preliminary Blood NO GROWTH 72 HOURS 05/02/24 10:30 Blood Culture - Preliminary Blood NO GROWTH 24 HOURS 05/02/24 10:15 Blood Culture - Preliminary Blood NO GROWTH 24 HOURS PFSH All Active Problems (Updated 05/01/24 @ 16:19 by Trinity Henderson NP) DVT prophylaxis (Acute) Right middle lobe pneumonia (Acute) Hypoxia (Acute) Sepsis (Acute) Leukocytosis (Acute) Mild shortness of breath (Acute) Chest pain (Acute) Hypoxia (Acute) Recurrent apnea (Acute) Chest pain (Acute) Hypertensive emergency (Acute) Bilateral edema of lower extremity (Acute) Dyspnea (Acute) Right rotator cuff tear (Acute) Abnormal CT scan, kidney (Acute) Anxiety (Chronic) Medical non-compliance (Acute) Aragon esophagus (Acute) Opiate dependence (Chronic) managed on suboxone Medical History Obstructive sleep apnea Chronic venous insufficiency COPD (chronic obstructive pulmonary disease) Diabetic neuropathy Hx of deep venous thrombosis on Coumadin Diabetes mellitus Hypertension Cocaine abuse 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 S/P percutaneous endoscopic gastrostomy (PEG) tube placement History of ankle surgery S/P spinal surgery Family History Father No problems noted. Mother COPD (chronic obstructive pulmonary disease) Hypertension Diabetes Heart disease Sister Stroke Social History Smoking/Tobacco Use Status: Current every day Tobacco Type: cigarettes Years smoked: 44 Tobacco: How many years used: 40 Smoking risk assessment performed?: Yes Alcohol Intake: never Drug use: Daily Substance use type: marijuana and crack/cocaine Caregiver/Support person: Yes Household members: friend(s) Housing: house Number of Children: 0 number of grandchildren: 1 current occupation: Disabled Pets and animals: Yes Pets and animals: cat(s) Current gender identity: male What type of physical activity do you participate in: none Do you feel safe at home: Yes Do you feel safe in your relationship?: Yes Additional Social history: Lives with ex- Vanessa, who is his caregiver. Lives in private home. Time Spent with Patient Time Spent with Patient: 45-69 minutes Time was spent: preparing to see the patient(eg.review tests), obtaining and/or reviewing separately otained hiistory, ordering medications,tests, procedures, indepentently interpreting results and counseling the patient
--- NOTE | 2024-05-04 15:10 | PDOC.CMDIS ---
Date of service: 05/04/24 Time of Service: 12:00 LACE Index Scoring Tool Questions: Length of Stay (in days): 4 - 6 Was the patient admitted via the E.D.?: Yes Comorbidities: Cerebrovascular Disease, Diabetes w/o Complication and Chronic Pulmonary Disease E.D. Visits: 9 Answers: Total Score: 16 Risk of Readmission: High Risk Care Management Discharge Plan Reason for Hospitalization: pneumonia Discharge Plan: Mio was discharged home earlier today with no new services. He will continue with his in home care givers and per his plan of care. Giovanny will f/u with his PCP. He was transported home by his caregiver. Patient/Family Education Needs: Review of discharge instructions, activity, limitations, and discuss ask me 3. SDOH Health Related Social Needs: No Data to Display
[2024-05-07 11:43] LABS: Fentanyl Confirmation Negative ng/mL (<2); Norfentanyl Confirmation Negative ng/mL (<10)
== END 2024-05-04 13:29 | disposition home or self-care (01) | DRG 871 ==
LOC: ER 17:39 → MS 17:41
PROVIDERS: Nurse Practitioner Acute Care; Nurse Practitioner Family; Admitting Provider Family Medicine; Emergency Provider Emergency Medicine; PCP Family Medicine; Responsible Provider Nurse Practitioner Acute Care; Visit Provider Family Medicine
DX: A41.9 Sepsis, unspecified organism (principal); J18.9 Pneumonia, unspecified organism; F11.20 Opioid dependence, uncomplicated; J44.0 Chronic obstructive pulmonary disease with (acute) lower respiratory infection; J44.1 Chronic obstructive pulmonary disease with (acute) exacerbation; I16.1 Hypertensive emergency; I69.351 Hemiplegia and hemiparesis following cerebral infarction affecting right dominant side; R07.89 Other chest pain; D72.829 Elevated white blood cell count, unspecified; R60.0 Localized edema; E11.40 Type 2 diabetes mellitus with diabetic neuropathy, unspecified; I10 Essential (primary) hypertension; Z95.4 Presence of other heart-valve replacement; Z86.718 Personal history of other venous thrombosis and embolism; K22.70 Barrett's esophagus without dysplasia; F41.9 Anxiety disorder, unspecified; I87.2 Venous insufficiency (chronic) (peripheral); F14.10 Cocaine abuse, uncomplicated; F32.A Depression, unspecified; I69.320 Aphasia following cerebral infarction; F17.210 Nicotine dependence, cigarettes, uncomplicated; F12.90 Cannabis use, unspecified, uncomplicated; Z79.85 Long-term (current) use of injectable non-insulin antidiabetic drugs; B95.7 Other staphylococcus as the cause of diseases classified elsewhere
CPT/HCPCS: 00123; 36415; 80048; 80053; 80307; 80354; 84145; 87040; 87077; 87637; 87641; 93005; 94640; 96365; 96375; 99291; J1650; 71045; 80202; 81003; 81015; 83036; 83605; 83735; 83880; 84484; 85025; 85379; 85610; 85730; 87186; 93010; 94664; 94760; 99222; 99232; 99233; 99239; J0692; J0696; J1940; J2405; J3372

== ENCOUNTER 2024-05-20 12:55 | Outpatient (CLI) | payer MEDICAID, SELFPAY ==
--- NOTE | 2024-05-20 | DI.US_ITS ---
Exam(s) US LOWER EXTREMITY VENOUS RT EXAM: US LOWER EXTREMITY VENOUS RT CLINICAL HISTORY: INCREASED SWELLING OF RT LOWER LEG,R22.41,REDNESS,PAIN,HIGH RISK FOR DVT TECHNIQUE: Right lower extremity venous ultrasound performed using grayscale, color-flow, and spectr al Doppler analysis. COMPARISON: No exams were available for comparison FINDINGS: The right common femoral, femoral and popliteal veins demonstrate normal compressibility, augmentatio n, and color Doppler. The posterior tibial and peroneal veins are patent. The saphenofemoral junctio n is unremarkable. There is no evidence of a Carter cyst. The soft tissues are unremarkable. IMPRESSION: No evidence of a right lower extremity DVT. DATA REPOSITORY:
== END 2024-05-20 13:15 ==
PROVIDERS: PCP Family Medicine; Visit Provider Family Medicine
DX: R22.41 Localized swelling, mass and lump, right lower limb (principal)
CPT/HCPCS: 93971

== ENCOUNTER 2024-05-20 13:09 | Outpatient (REF) | payer MEDICAID, SELFPAY ==
[2024-05-20 15:59] LABS: Abs Immature Grans 0.01 10^3/uL (0.0-0.06); Absolute Basophil Count 0.11 10^3/uL (0.0-0.2); Absolute Eosinophil Count 0.24 10^3/uL (0.0-0.7); Absolute Lymphocyte Count 1.33 10^3/uL (1.2-3.4); Absolute Monocyte Count 0.62 10^3/uL (0.1-0.8); Absolute Neutrophil Count 3.76 10^3/uL (1.2-6.7); Basophils % 1.8 %; HCT 38.6 % (40.0-50.0); HGB 12.2 g/dL (13.5-17.5); Immature Grans % 0.2 %; Lymphocytes % 21.9 %; MCH 26.3 pg (27.0-33.0); MCHC 31.6 % (32.0-36.0); MCV 83 fL (80-95); MPV 9.6 fL (8.0-11.0); Monocytes % 10.2 %; Neutrophils % 61.9 %; Platelet Count 369 10^3/uL (130-400); RBC 4.63 10^6/uL (4.36-5.78); RDW 15.2 % (11.8-14.1); RDW-SD 45.9 fL; WBC 6.07 10^3/uL (4.4-10.8)
[2024-05-20 16:12] LABS: Anion Gap 8.3 mmol/L (3-11); BUN 21 mg/dL (7-18); C-Reactive Protein 0.51 mg/dL (<or=0.5); CO2 30.7 mmol/L (21.0-32.0); CREATININE 1.3 mg/dL (0.70-1.30); Calcium 9.8 mg/dL (8.5-10.1); Chloride 104 mmol/L (98-107); Estimated GFR 63.68 (mL/min/1.73m2); Glucose 103 mg/dL (74-106); Potassium 4.4 mmol/L (3.5-5.1); Sodium 143 mmol/L (136-145)
[2024-05-20 18:26] LABS: COMMENT (LAB VIEW ONLY) < 13.00 mg/dL
[2024-05-31 06:58] LABS: Benzoylecgonine 187 ng/mL (Cutoff: 50); Cocaine Negative ng/mL (Cutoff: 50); Cocaine Interpretation Positive.
== END 2024-05-20 13:10 | disposition home or self-care (01) ==
LOC: NCHCN 13:09
PROVIDERS: PCP Family Medicine; Visit Provider Family Medicine
DX: E11.9 Type 2 diabetes mellitus without complications (principal); F11.20 Opioid dependence, uncomplicated; I87.8 Other specified disorders of veins; Z79.891 Long term (current) use of opiate analgesic
CPT/HCPCS: 80048; 80353; 82043; 82570; 85025; 86140

== ENCOUNTER 2024-06-12 11:27 | Emergency (ER) | payer MEDICAID, SELFPAY ==
[2024-06-12] VITALS (188 sets, daily range): BP systolic 130–250; BP diastolic 68–112; PULSE 40–107; RESP 3–45; TEMP 36.7; O2SAT 93–99
--- NOTE | 2024-06-12 11:15 | RT.EKG_ITS ---
APPROVED REPORT Exam: Resting ECG Reason for Exam: weakness, cardiac history. Patient Location: E HR:52 bpm ECG Measurements Heart Rate [address] 180 P 59 QRSd 130 QRS 61 QT 447 T 98 QTc 416 Conclusion Sinus bradycardia, rate 52 RBBB, unchanged from priors, no other interval abnormalities T wave inversion I, aVL, new from priors No STEMI
--- NOTE | 2024-06-12 11:26 | ED.GENADUL_ITS ---
Discharge Plan Discharge Details Chief Complaint: [facility]Medical Primary Care Provider: Evon Howard ED Provider: Thelma Real Home Meds and New Rx's Prescriptions: No Action esomeprazole magnesium [Nexium] 40 mg capsule,delayed release(DR/EC) 40 mg PO DAILY Trulicity 4.5 mg/0.5 mL pen injector 4.5 mg subcut QWEEK Patient Comments: takes on monday albuterol sulfate 90 mcg/actuation HFA aerosol inhaler 2 inh inhalation Q6H PRN aspirin 81 mg Tablet 81 mg PO DAILY duloxetine 30 mg Capsule,Delayed Release(Dr/Ec) 30 mg PO BID acetaminophen [Tylenol] 325 mg tablet 1,000 mg PO Q6H PRN Anoro Ellipta 62.5-25 mcg/actuation blister with device 1 ea INHALATION DAILY Patient Comments: INHALE ONE PUFF BY MOUTH EVERY DAY buprenorphine-naloxone [Suboxone] 4-1 mg film 1 film sublingual DAILY Patient Comments: PLACE ONE FILM UNDER THE TONGUE EVERY DAY cyanocobalamin (vitamin B-12) [Vitamin B-12] 1,000 mcg tablet 1,000 mcg PO DAILY Qvar RediHaler 80 mcg/actuation HFA aerosol breath activated 1 inh INHALATION BID PRN Patient Comments: INHALE ONE PUFF BY MOUTH TWICE A DAY NEEDED furosemide [Lasix] 40 mg Tablet 40 mg PO DAILY Qty: 0 0RF spironolactone 25 mg Tablet 25 mg PO DAILY Qty: 30 0RF amlodipine 2.5 mg tablet 2.5 mg PO DAILY Patient Comments: TAKE ONE TABLET BY MOUTH EVERY DAY gabapentin 600 mg tablet 600 mg PO TID Patient Comments: TAKE ONE TABLET BY MOUTH THREE TIMES A DAY Lactobacillus acidophilus 500 million cell Capsule 500 mmu cells PO TID Qty: 30 0RF HPI General Date/Time Provider Initiated Documentation: 06/12/24 11:36 . HPI Narrative: Mio is a 58 year old male who presents to the emergency department today via EMS for evaluation of not feeling well. He reports that he has had nasal congestion, cough, occasional nausea, and shortness of breath for the last 3 days accompanied by periodic dizziness. Denies fever/chills, headache, sore throat, chest pain, abdominal pain, change in bowel or bladder function, distal extremity weakness or numbness/tingling. Says he did not eat breakfast this morning, but drink a glass of water. Denies alcohol use. Past medical history is significant for CVA with right sided hemiparesis, controlled T2DM, HTN, opioi d use disorder, MSSA endocarditis, and recent hospitalization for RML pneumonia with sepsis (admitted 04/30-). He does take medications, not sure what he takes at home. Physical exam remarkable for occasional cough and coarse lung sounds scattered throughout. Bradycardia noted, with episodes of bradycardia down into the 30s, then something up into the 40s to 50s. Otherwise normal heart sounds. Abdomen soft, nondistended, nontender to palpation. Pedal edema unchanged from baseline. Bryson is alert, but keeps his eyes closed for most of the interview and is slow to answer questions. Slightly tacky MM. Distal pulses intact bilaterally D/dx includes but is not limited to: Sepsis due to infection such as PNA or UTI, electrolyte imbalance, cardiac arrhythmia/symptomatic bradycardia, CHF, ACS, dehydration, hypothyroidism, malnutrition, lyme disease I independently interpreted the following tests: CBC, CMP, BNP, TSH, UA, lactate all unremarkable. Troponins flat at 14 and 12. No acute abnormality noted on chest x-ray. COVID/flu/RSV negative. While in the emergency department, Mio received atropine at 1300 for symptomatic bradycardia, heart rate improved from the 40s to the 80s. He reported improvement in dizziness resolved. Blood pressure markedly improved after atropine, most recently 130/77. Discussed case with SH[place]ET[place] [facility] She discussed case with EP, recommends Zio patch, and EP follow-up. I advised her that due to multiple patient factors, may not very reliable for outpatient management and we are unable to order a Zio patch from ED. Presented case to Beata at [facility] transfer center, patient auto accepted to [facility] as ER to ER under the care of Dr. Hickman. Patient is agreeable with plan for transfer. Related Data Home Medications ?Medication ?Instructions ?Recorded ?Confirmed esomeprazole magnesium 40 mg 40 mg PO DAILY 05/05/20 06/12/24 capsule,delayed release (Nexium) aspirin 81 mg tablet 81 mg PO DAILY 08/03/20 06/12/24 duloxetine 30 mg capsule,delayed 30 mg PO BID 08/03/20 06/12/24 release acetaminophen 325 mg tablet 1,000 mg PO Q6H PRN 09/27/20 06/12/24 (Tylenol) umeclidinium 62.5 mcg-vilanterol 1 ea inhalation DAILY 09/27/20 06/12/24 25 mcg/actuation powdr for inhalation (Anoro Ellipta) buprenorphine 4 mg-naloxone 1 mg 1 film sublingual DAILY 09/28/20 06/12/24 sublingual film (Suboxone) albuterol sulfate 90 mcg/actuation 2 inh inhalation Q6H PRN 04/12/22 06/12/24 aerosol inhaler dulaglutide 4.5 mg/0.5 mL 4.5 mg subcut QWEEK 04/12/22 06/12/24 subcutaneous pen injector (Trulicity) cyanocobalamin (vitamin B-12) 1,000 mcg PO DAILY 03/06/23 06/12/24 1,000 mcg tablet (Vitamin B-12) amlodipine 2.5 mg tablet 2.5 mg PO DAILY 09/30/23 06/12/24 gabapentin 600 mg tablet 600 mg PO TID 09/30/23 06/12/24 beclomethasone dipropionate 80 1 inh inhalation BID PRN 12/27/23 06/12/24 mcg/actuation HFA breath activated aerosol (Qvar RediHaler) furosemide 40 mg tablet (Lasix) 40 mg PO DAILY #0 tabs 12/29/23 06/12/24 Lactobacillus acidophilus 500 500 mmu cells PO TID #30 caps 02/09/24 06/12/24 million cell capsule spironolactone 25 mg tablet 25 mg PO DAILY #30 tabs 04/26/24 06/12/24 Previous Rx's ?Medication ?Instructions ?Recorded furosemide 40 mg tablet (Lasix) 40 mg PO DAILY #0 tabs 12/29/23 Lactobacillus acidophilus 500 500 mmu cells PO TID #30 caps 02/09/24 million cell capsule spironolactone 25 mg tablet 25 mg PO DAILY #30 tabs 04/26/24 Allergies Allergy/AdvReac Type Severity Reaction Status Date / Time Penicillins AdvReac Severe Vomiting Verified 04/29/24 15:01 hydrocodone AdvReac Intermediate vomiting Verified 04/29/24 15:01 General LILLIAN: 3 Review of Systems Narrative: see HPI Exam Const General: cooperative, disheveled and ill appearing chronically Nutritional Appearance: average body habitus Orientation: alert and awake Limitations: other limitations (slow to answer questions) HENMT Head: normal to inspection and atraumatic General nose exam: external nose normal Face and sinus: normal facial exam and dry mucous membranes (slightly tacky) Mouth: oral mucosae normal and lip normal Neck Neck: no JVD Resp Effort & Inspection: normal respiratory effort and able to speak in complete sentences Auscultation: rhonchi (scattered) Cardio Rate: bradycardic Rhythm: regular rhythm Pulses: radial pulses present GI Inspection: normal to inspection and non-distended Palpation: soft, not firm, no guarding, not rigid and nontender Extrem General: pedal edema bilaterally Medical Decision Making Imaging Data Radiologic Study: Radiologist's impression: Exam(s) XR PORTABLE CHEST AP EXAM: XR PORTABLE CHEST AP CLINICAL HISTORY: bradycardia, cough TECHNIQUE: 2D digital imaging was performed of the chest. One image was obtained. An AP view was obtained. COMPARISON: CR XR PORTABLE CHEST AP from 02/07/2024 CR,XR XR CHEST 2V PA LATERAL from 04/07/2024 CR XR PORTABLE CHEST AP from 04/29/2024 CR XR PORTABLE CHEST AP from 04/30/2024 FINDINGS: MEDIASTINUM: Normal. HEART: Normal. There is an aortic valve in place. PULMONARY VASCULATURE: Normal. LUNGS: Clear. PLEURAL SPACE: No pleural effusion or pneumothorax. BONE:Within normal limits for the patient's age. Sternal wires are in place. OTHER FINDINGS:There is monitoring equipment overlying the inferior left hemithorax. IMPRESSION: No acute pulmonary findings. Quality:SDOH Health Related Social Needs: No Data to Display Critical Care Time Critical Care Time Critical Care Time: Yes Total Critical Care Time: 30 Attestation: I have personally spent 30 minutes of critical care time, exclusive of time spent on any procedures, in evaluation and management of this critically ill patient?s condition of symptomatic bradycardia. I provided the following critical care treatment: Frequent reassessments, EKG/roof mechanic, ordering and review of studies, cardiology consult [facility] All Active Problems (Updated 05/24/24 @ 00:03 by DIVINA CHANCE) Right middle lobe pneumonia (Acute) Hypoxia (Acute) Sepsis (Acute) Leukocytosis (Acute) Mild shortness of breath (Acute) Chest pain (Acute) Hypoxia (Acute) Recurrent apnea (Acute) Hypertensive emergency (Acute) Bilateral edema of lower extremity (Acute) Dyspnea (Acute) Right rotator cuff tear (Acute) Abnormal CT scan, kidney (Acute) Anxiety (Chronic) Medical non-compliance (Acute) Aragon esophagus (Acute) Opiate dependence (Chronic) managed on suboxone Medical History Obstructive sleep apnea Chronic venous insufficiency COPD (chronic obstructive pulmonary disease) Diabetic neuropathy Hx of deep venous thrombosis on Coumadin Diabetes mellitus Hypertension Cocaine abuse Cerebral septic emboli causing stroke with residual right hemiparesis and expressive aphasia GI bleed Osteomyelitis of left fibula Endocarditis Depression MSSA (methicillin susceptible Staphylococcus aureus) septicemia Surgical History S/P endoscopy H/O aortic valve replacement [place] [facility] [place] Magna Ease 25 mm S/P hardware removal L ankle. S/P percutaneous endoscopic gastrostomy (PEG) tube placement History of ankle surgery S/P spinal surgery Family History Father No problems noted. Mother COPD (chronic obstructive pulmonary disease) Hypertension Diabetes Heart disease Sister Stroke Social History Smoking/Tobacco Use Status: Current every day Tobacco Type: cigarettes Years smoked: 44 Tobacco: How many years used: 40 Smoking risk assessment performed?: Yes Alcohol Intake: former Drug use: Daily Substance use type: marijuana and crack/cocaine Caregiver/Support person: Yes Household members: friend(s) Housing: house Number of Children: 0 number of grandchildren: 1 current occupation: Disabled Pets and animals: Yes Pets and animals: cat(s) Current gender identity: male What type of physical activity do you participate in: none Do you feel safe at home: Yes Do you feel safe in your relationship?: Yes Additional Social history: Lives with ex- Vanessa, who is his caregiver. Lives in private home.
[2024-06-12 11:58] LABS: Abs Immature Grans 0.02 10^3/uL (0.0-0.06); Absolute Eosinophil Count 0.27 10^3/uL (0.0-0.7); Absolute Lymphocyte Count 1.75 10^3/uL (1.2-3.4); Absolute Monocyte Count 0.47 10^3/uL (0.1-0.8); Absolute Neutrophil Count 4.63 10^3/uL (1.2-6.7); Basophils % 1.4 %; Eosinophils % 3.7 %; HCT 44.9 % (40.0-50.0); HGB 13.8 g/dL (13.5-17.5); Immature Grans % 0.3 %; Lactate 0.9 mmol/L (<or=2.0); Lymphocytes % 24.2 %; MCH 25.8 pg (27.0-33.0); MCHC 30.7 % (32.0-36.0); MCV 84 fL (80-95); MPV 9.3 fL (8.0-11.0); Monocytes % 6.5 %; Neutrophils % 63.9 %; Platelet Count 379 10^3/uL (130-400); RBC 5.34 10^6/uL (4.36-5.78); RDW 14.9 % (11.8-14.1); RDW-SD 45.2 fL; WBC 7.24 10^3/uL (4.4-10.8)
--- NOTE | 2024-06-12 12:00 | DI.RAD_ITS ---
Exam(s) XR PORTABLE CHEST AP EXAM: XR PORTABLE CHEST AP CLINICAL HISTORY: bradycardia, cough TECHNIQUE: 2D digital imaging was performed of the chest. One image was obtained. An AP view was ob tained. COMPARISON: CR XR PORTABLE CHEST AP from 02/07/2024 CR,XR XR CHEST 2V PA LATERAL from 04/07/2024 CR XR PORTABLE CHEST AP from 04/29/2024 CR XR PORTABLE CHEST AP from 04/30/2024 FINDINGS: MEDIASTINUM: Normal. HEART: Normal. There is an aortic valve in place. PULMONARY VASCULATURE: Normal. LUNGS: Clear. PLEURAL SPACE: No pleural effusion or pneumothorax. BONE:Within normal limits for the patient's age. Sternal wires are in place. OTHER FINDINGS:There is monitoring equipment overlying the inferior left hemithorax. IMPRESSION: No acute pulmonary findings. DATA REPOSITORY: RADIATION DOSE DELIVERED:
[2024-06-12 12:32] LABS: Troponin I 14 ng/L (<or=76)
[2024-06-12 12:36] LABS: Bilirubin Negative (Negative); Blood Trace-intact (Negative); Clarity Clear (Clear); Glucose 100 mg/dL (Negative); Ketones Negative (Negative); Leukocyte Esterase Negative (Negative); Nitrite Negative (Negative); Specific Gravity 1.025 (1.005-1.025); Urobilinogen 0.2 mg/dL (Up to 0.2); pH 6.5 (5-8)
[2024-06-12 12:36] LABS: ALT 14 U/L (16-63); AST 15 U/L (15-37); Alkaline Phosphatase 75 U/L (46-116); Anion Gap 11.2 mmol/L (3-11); BUN 28 mg/dL (7-18); Bilirubin, Total 0.2 mg/dL (0.2-1.0); CO2 25.8 mmol/L (21.0-32.0); CREATININE 1.4 mg/dL (0.70-1.30); Calcium 9.5 mg/dL (8.5-10.1); Chloride 107 mmol/L (98-107); Estimated GFR 58.26 (mL/min/1.73m2); Glucose 112 mg/dL (74-106); NT-proBNP 129 pg/mL (<300); Sodium 144 mmol/L (136-145); TSH (W/Ref FT4) 0.66 uIU/mL (0.36-3.74); Total Protein 8.7 g/dL (6.4-8.2)
[2024-06-12 12:44] LABS: WBC 0-2 HPF (0-5)
[2024-06-12 12:45] LABS: Bacteria Negative HPF (Negative); C & S Indicated? No; Casts Negative LPF (Negative); Crystals Negative HPF (Negative); Epithelial Cells Negative HPF (Negative); Mucus Negative (Negative); RBC 0-2 HPF (0-2)
[2024-06-12] MEDS: Atropine 1 MG/10 ML SYRINGE 0.5 MG IVP ×2 (12:59→17:43)
[2024-06-12 13:31] LABS: Troponin I 12 ng/L (<or=76)
[2024-06-12 13:32] LABS: COVID-19 PCR Negative (Negative); Influenza A PCR Negative (Negative); Influenza B PCR Negative (Negative); RSV PCR Negative (Negative)
[2024-06-12 13:42] LABS: Source Nasopharynx
[2024-06-12 15:09] LABS: Troponin I 14 ng/L (<or=76)
[2024-06-12 16:26] LABS: Lab Add On Test DONE
[2024-06-14 10:39] LABS: Lyme Ab w Rflx to Lyme Confirm Negative (Negative)
[2024-06-17 00:43] LABS: Anaplasma phagocytophilum Negative (Negative); B. miyamotoi PCR Negative (Negative); Babesia divergens/MO-1 Negative (Negative); Babesia duncani Negative (Negative); Babesia microti Negative (Negative); Ehrlichia chaffeensis Negative (Negative); Ehrlichia ewingii/canis Negative (Negative); Ehrlichia muris eauclairensis Negative (Negative)
== END 2024-06-12 19:07 | disposition short-term general hospital (02) ==
PROVIDERS: Nurse Practitioner Family; Emergency Provider Emergency Medicine Emergency Medical Services; PCP Family Medicine
DX: R00.1 Bradycardia, unspecified (principal); I10 Essential (primary) hypertension; J44.9 Chronic obstructive pulmonary disease, unspecified; I45.19 Other right bundle-branch block; Z95.2 Presence of prosthetic heart valve; Z79.82 Long term (current) use of aspirin; Z79.85 Long-term (current) use of injectable non-insulin antidiabetic drugs; E11.40 Type 2 diabetes mellitus with diabetic neuropathy, unspecified; Z86.718 Personal history of other venous thrombosis and embolism
CPT/HCPCS: 36415; 80053; 87040; 87637; 87798; 93005; 96374; 96376; 99285; 71045; 81003; 81015; 83605; 83880; 84443; 84484; 85025; 86618; 93010; J0461

== ENCOUNTER 2024-07-03 07:46 | Emergency (ER) | payer MEDICAID, SELFPAY ==
[2024-07-03] VITALS (25 sets, daily range): BP systolic 171–237; BP diastolic 72–108; PULSE 41–68; RESP 5–25; TEMP 36.8; O2SAT 80–100
--- NOTE | 2024-07-03 07:30 | RT.EKG_ITS ---
APPROVED REPORT Exam: Resting ECG Reason for Exam: chest discomfort Patient Location: E HR:54 bpm ECG Measurements Heart Rate 54 AXIS MO 186 P 62 QRSd 135 QRS 63 QT 447 T 90 QTc 422 Conclusion Sinus bradycardia...rate< 60 Right bundle branch block...QRSd>120, terminal axis(90,270) Nonspecific repol abnormality, lateral leads...ST dep, T neg, I aVL V5 V6
--- NOTE | 2024-07-03 08:15 | DI.CT_ITS ---
Exam(s) CT THORAX ABD/PEL CTA EXAM: CT THORAX ABD/PEL CTA CLINICAL HISTORY: Chest pain concern for dissection. TECHNIQUE: Imaging Protocol: Axial CT angiography was performed with multi-slice acquisition and m ulti-planar and/or 3D reconstructions. Lung Computer Aided Detection (CAD) was utilized. CONTRAST MATERIAL: Intravenous: Omnipaque 350 contrast volume:100 mL Oral: No COMPARISON: CT CT CHEST LUNG CANCER SCREEN from 06/13/[address] ABDOMEN PELVIS W from 09/29/[address] ABDOMEN PELVIS W from 10/11/2023 FINDINGS: CHEST: Tracheobronchial tree: Patent where visualized. There is no evidence of bronchiectasis. Pulmonary parenchyma: There is an infiltrate in the dependent portion of the left lower lobe. No susp icious pulmonary nodules. No architectural distortion. Pulmonary Arteries: No evidence of filling defect to suggest pulmonary emboli. Mediastinum and Ofelia: No dominant adenopathy or fluid collection. The esophagus is unremarkable. Visualized thyroid: Unremarkable. Pleura: No effusion or pneumothorax. Heart: The heart is not dilated. Coronary artery calcification is present. No pericardial effusion. Aorta: Thoracic aorta non-dilated. Mild atherosclerotic calcification is present. No evidence of diss ection. Soft Tissues: Unremarkable. Bones: Within normal limits for the patient's age.Sternal wires are in place. ABDOMEN AND PELVIS: Abdomen: Celiac axis/mesenteric arteries: No evidence of occlusion or significant stenosis. Renal Arteries: No evidence of occlusion or significant stenosis. Aorta: No evidence of occlusion or significant stenosis. No aneurysm or dissection. Atheroscleroti c calcification is present. Pelvis: Iliac Arteries: No evidence of occlusion or significant stenosis. Atherosclerotic calcification is present. Common Femoral Arteries: No evidence of occlusion or significant stenosis. Atherosclerotic calcific ation is present. ABDOMEN: Liver: Normal density. There again seen several calcifications scattered throughout the liver. There is a simple stable cyst in the right lobe of the liver. No suspicious hepatic lesions are seen. Th ere are few scattered tiny hypodensities in the liver which appears stable and are too small for furt her characterization. Portal, superior mesenteric and splenic veins: Unremarkable. Gallbladder and Biliary Tract: The gallbladder is distended measuring 5.5 cm in diameter. No stones or wall thickening is seen. No biliary ductal dilatation is present. Pancreas: Normal density, no abnormal calcifications or inflammatory process. Spleen: Calcified granulomas are present. Adrenals: No masses seen. Kidneys: Normal size, contour and axis. No radiodense stones or obstructive uropathy. No masses seen. Bowel: No obstruction or bowel wall thickening. Appendix is unremarkable. Peritoneal Cavity: No ascites, collection or mesenteric inflammatory response. No free air. Lymph Nodes: Within normal limits. Bones: Within normal limits for the patient's age. Soft Tissues: Unremarkable. PELVIS: Bladder: Symmetric distention, no gross wall thickening. Reproductive Organs: Mildly enlarged prostate gland impinging upon the base of the urinary bladder. Lymph Nodes: Within normal limits. Bones: Within normal limits for the patient's age. IMPRESSION: 1. No evidence of a thoracic aortic aneurysm, dissection or pulmonary embolism. 2. No evidence of abdominal aneurysm or dissection. 3. Hydropic gallbladder without evidence of stone or biliary ductal dilatation. 4. No evidence of an acute abdominal or pelvic process. RADIATION DOSE DELIVERED: 1,399.09mGy.cm Total DLP DATA REPOSITORY: All CT scans at this facility are submitted to the National Radiology Data Registry (NRDR) Dose Index Registry (DIR) with the [employer] (A[employer]). RADIATION OPTIMIZATION: All CT scans at this facility use at least one of these dose optimization te chniques: automated exposure control; mA and/or kV adjustment per patient size (includes targeted exa ms where dose is matched to clinical indication); or iterative reconstruction.
[2024-07-03 08:40] LABS: Abs Immature Grans 0.02 10^3/uL (0.0-0.06); Absolute Basophil Count 0.08 10^3/uL (0.0-0.2); Absolute Eosinophil Count 0.19 10^3/uL (0.0-0.7); Absolute Lymphocyte Count 1.66 10^3/uL (1.2-3.4); Absolute Monocyte Count 0.46 10^3/uL (0.1-0.8); Basophils % 1.1 %; Eosinophils % 2.7 %; HCT 44.6 % (40.0-50.0); HGB 14.1 g/dL (13.5-17.5); Immature Grans % 0.3 %; Lymphocytes % 23.7 %; MCH 26.2 pg (27.0-33.0); MCHC 31.6 % (32.0-36.0); MCV 83 fL (80-95); MPV 9.3 fL (8.0-11.0); Monocytes % 6.6 %; Neutrophils % 65.6 %; Platelet Count 366 10^3/uL (130-400); RBC 5.39 10^6/uL (4.36-5.78); RDW 15.9 % (11.8-14.1); RDW-SD 47.7 fL; WBC 7.01 10^3/uL (4.4-10.8)
[2024-07-03 08:51] LABS: Prothrombin Time 10.1 sec (9.1-11.1)
[2024-07-03] MEDS: Omnipaque 350 MG/ML 100 ML BTL IJ (08:54)
[2024-07-03] MEDS: Normal Saline - Diluent 50 ML VIAL IJ (08:56)
[2024-07-03] MEDS: hydrALAZINE 10 MG TAB PO (09:15)
[2024-07-03 09:18] LABS: ALT 12 U/L (16-63); AST 12 U/L (15-37); Albumin 3.8 g/dL (3.4-5.0); Alkaline Phosphatase 81 U/L (46-116); Anion Gap 10.7 mmol/L (3-11); BUN 19 mg/dL (7-18); Bilirubin, Total 0.5 mg/dL (0.2-1.0); CO2 27.3 mmol/L (21.0-32.0); CREATININE 1.4 mg/dL (0.70-1.30); Calcium 9.4 mg/dL (8.5-10.1); Chloride 106 mmol/L (98-107); Estimated GFR 58.26 (mL/min/1.73m2); Glucose 107 mg/dL (74-106); Lipase 28 U/L (<78); Magnesium 2.1 mg/dL (1.8-2.4); NT-proBNP 109 pg/mL (<300); Potassium 3.9 mmol/L (3.5-5.1); Sodium 144 mmol/L (136-145); Total Protein 8.1 g/dL (6.4-8.2); Troponin I 10 ng/L (<or=76)
[2024-07-03 09:57] LABS: COVID-19 PCR Negative (Negative); Influenza A PCR Negative (Negative); Influenza B PCR Negative (Negative); RSV PCR Negative (Negative)
[2024-07-03 09:58] LABS: Source Nasopharynx
[2024-07-03 10:02] LABS: Troponin I 9 ng/L (<or=76)
[2024-07-03] MEDS: Doxycycline Hyclate 100 MG CAP PO (10:22)
[2024-07-03] MEDS: Albuterol HFA 8 GM 60 PUFF INH IH (10:22)
[2024-07-03] MEDS: Cefpodoxime 200 MG TAB PO (10:22)
--- NOTE | 2024-07-03 15:39 | ED.GENADUL_ITS ---
Discharge Plan Disposition Patient Disposition: Home Condition: Stable Discharge Details Clinical Impression: Pneumonia, Oral thrush Primary Care Provider: Evon Howard ED Provider: Isabel Mcfarlane Home Meds and New Rx's Prescriptions: New doxycycline hyclate 100 mg capsule 100 mg PO BID Qty: 10 0RF cefpodoxime 200 mg tablet 200 mg PO BID Qty: 10 0RF Rx Instructions: must administer with a meal/food nystatin 100,000 unit/mL suspension 100,000 unit PO DAILY Qty: 60 0RF Rx Instructions: administer 1/2 of dose in each side of the mouth Continued esomeprazole magnesium [Nexium] 40 mg capsule,delayed release(DR/EC) 40 mg PO DAILY Trulicity 4.5 mg/0.5 mL pen injector 4.5 mg subcut QWEEK Patient Comments: takes on monday albuterol sulfate 90 mcg/actuation HFA aerosol inhaler 2 inh inhalation Q6H PRN aspirin 81 mg Tablet 81 mg PO DAILY duloxetine 30 mg Capsule,Delayed Release(Dr/Ec) 30 mg PO BID acetaminophen [Tylenol] 325 mg tablet 1,000 mg PO Q6H PRN Anoro Ellipta 62.5-25 mcg/actuation blister with device 1 ea INHALATION DAILY Patient Comments: INHALE ONE PUFF BY MOUTH EVERY DAY buprenorphine-naloxone [Suboxone] 4-1 mg film 1 film sublingual DAILY Patient Comments: PLACE ONE FILM UNDER THE TONGUE EVERY DAY cyanocobalamin (vitamin B-12) [Vitamin B-12] 1,000 mcg tablet 1,000 mcg PO DAILY Qvar RediHaler 80 mcg/actuation HFA aerosol breath activated 1 inh INHALATION BID PRN Patient Comments: INHALE ONE PUFF BY MOUTH TWICE A DAY NEEDED furosemide [Lasix] 40 mg Tablet 40 mg PO DAILY Qty: 0 0RF spironolactone 25 mg Tablet 25 mg PO DAILY Qty: 30 0RF amlodipine 2.5 mg tablet 2.5 mg PO DAILY Patient Comments: TAKE ONE TABLET BY MOUTH EVERY DAY gabapentin 600 mg tablet 600 mg PO TID Patient Comments: TAKE ONE TABLET BY MOUTH THREE TIMES A DAY Lactobacillus acidophilus 500 million cell Capsule 500 mmu cells PO TID Qty: 30 0RF Discharge Instructions Instructions: Community-Acquired Pneumonia, Adult (DC) Additional Instructions: Take the antibiotic as prescribed you have received 2 antibiotics and you will take for total of 5 days Use the inhaler 2 puffs every 4-6 hours as needed for cough, wheeze, shortness of breath Follow-up with your primary care physician and have the CT results reviewed with them Make sure you take all your medications including your blood pressure medication at the scheduled time, this will cause your blood pressure to be more consistent Please be reevaluated in 24 to 48 hours by primary care physician Return earlier should you have new or worsening complaints Use your walker with any sort of ambulation Regular meals and fluids Referrals: Evon Howard MD [Primary Care Provider] - 1 day Discharge Data Discharge Date/Time-TO BE ENTERED AT DEPARTURE: 07/03/24 12:38 HPI General Date/Time Provider Initiated Documentation: 07/03/24 07:54 . HPI Narrative: 58-year-old male with bioprosthetic aortic valve, CVA with persistent right- sided deficits, opiate dependence, medical noncompliance, and hypertension. Presents with chest pain, weakness, cough, and SOB since 0200 hours. Reports elevated BP at home, no headaches, recent injuries, or hemoptysis. Continues to smoke, history of COPD and CHF. Recently discharged from [facility] for bradycardia, no follow-up with PCP. Related Data Home Medications ?Medication ?Instructions ?Recorded ?Confirmed esomeprazole magnesium 40 mg 40 mg PO DAILY 05/05/20 06/12/24 capsule,delayed release (Nexium) aspirin 81 mg tablet 81 mg PO DAILY 08/03/20 06/12/24 duloxetine 30 mg capsule,delayed 30 mg PO BID 08/03/20 06/12/24 release acetaminophen 325 mg tablet 1,000 mg PO Q6H PRN 09/27/20 06/12/24 (Tylenol) umeclidinium 62.5 mcg-vilanterol 1 ea inhalation DAILY 09/27/20 06/12/24 25 mcg/actuation powdr for inhalation (Anoro Ellipta) buprenorphine 4 mg-naloxone 1 mg 1 film sublingual DAILY 09/28/20 06/12/24 sublingual film (Suboxone) albuterol sulfate 90 mcg/actuation 2 inh inhalation Q6H PRN 04/12/22 06/12/24 aerosol inhaler dulaglutide 4.5 mg/0.5 mL 4.5 mg subcut QWEEK 04/12/22 06/12/24 subcutaneous pen injector ([facility]) cyanocobalamin (vitamin B-12) 1,000 mcg PO DAILY 03/06/23 06/12/24 1,000 mcg tablet (Vitamin B-12) amlodipine 2.5 mg tablet 2.5 mg PO DAILY 09/30/23 06/12/24 gabapentin 600 mg tablet 600 mg PO TID 09/30/23 06/12/24 beclomethasone dipropionate 80 1 inh inhalation BID PRN 12/27/23 06/12/24 mcg/actuation HFA breath activated aerosol (Qvar RediHaler) furosemide 40 mg tablet (Lasix) 40 mg PO DAILY #0 tabs 12/29/23 06/12/24 Lactobacillus acidophilus 500 500 mmu cells PO TID #30 caps 02/09/24 06/12/24 million cell capsule spironolactone 25 mg tablet 25 mg PO DAILY #30 tabs 04/26/24 06/12/24 cefpodoxime 200 mg tablet 200 mg PO BID #10 tabs 07/03/24 doxycycline hyclate 100 mg capsule 100 mg PO BID #10 caps 07/03/24 nystatin 100,000 unit/mL oral 100,000 unit PO DAILY #60 mL 07/03/24 suspension Previous Rx's ?Medication ?Instructions ?Recorded furosemide 40 mg tablet (Lasix) 40 mg PO DAILY #0 tabs 12/29/23 Lactobacillus acidophilus 500 500 mmu cells PO TID #30 caps 02/09/24 million cell capsule spironolactone 25 mg tablet 25 mg PO DAILY #30 tabs 04/26/24 cefpodoxime 200 mg tablet 200 mg PO BID #10 tabs 07/03/24 doxycycline hyclate 100 mg capsule 100 mg PO BID #10 caps 07/03/24 nystatin 100,000 unit/mL oral 100,000 unit PO DAILY #60 mL 07/03/24 suspension Allergies Allergy/AdvReac Type Severity Reaction Status Date / Time Penicillins AdvReac Severe Vomiting Verified 07/03/24 07:54 hydrocodone AdvReac Intermediate vomiting Verified 07/03/24 07:54 General Stated Complaint: Chest Pain LILLIAN: 2 Exam Narrative Exam Narrative: General Appearance: Alert and oriented. Vital signs: BP decreased to 170/80 after 10 mg hydralazine. HEENT: Within normal limits. Respiratory: Rhonchi in left lower lobe, no respiratory distress. Cardiovascular: Significant PVD. Gastrointestinal: Nontender abdomen. Extremities: 2+ edema in lower extremities, redness on right lower extremity. Skin: Warm and dry, no rash. Neurological: Unchanged baseline neurological deficits, follows commands and speaks in complete sentences. Course Vital Signs Vital signs: Vital Signs Temperature 36.8 C 07/03/24 07:49 Pulse 58 L 07/03/24 07:49 Respiratory Rate 22 07/03/24 07:49 Blood Pressure 202/105 H 07/03/24 07:49 Pulse Oximetry 96 07/03/24 07:49 Temperature 36.8 C 07/03/24 07:49 Temperature Source Oral 07/03/24 07:49 Pulse 44 L 07/03/24 10:01 Pulse 51 L 07/03/24 10:02 Respiratory Rate 5 L 07/03/24 10:02 Respiratory Effort Normal, Non-Labored 07/03/24 08:09 Respiratory Depth Normal 07/03/24 08:09 Respiratory Pattern Normal 07/03/24 08:09 Blood Pressure 180/75 H 07/03/24 10:01 Blood Pressure Mean 115 07/03/24 10:01 Blood Pressure Position Sitting 07/03/24 07:49 Pulse Oximetry 100 07/03/24 09:50 Oxygen Delivery Method Room Air 07/03/24 07:49 Oxygen Flow Rate 0 07/03/24 07:49 Pain Level 8 07/03/24 07:49 Lab/Test Results Lab/Test Results: Laboratory Tests Range/Units 07/03/24 07/03/24 07/03/24 08:10 09:05 09:10 WBC (4.4-10.8) 10^3/uL 7.01 RBC (4.36-5.78) 10^6/uL 5.39 Hgb (13.5-17.5) g/dL 14.1 Hct (40.0-50.0) % 44.6 MCV (80-95) fL 83 MCH (27.0-33.0) pg 26.2 L MCHC (32.0-36.0) % 31.6 L RDW (11.8-14.1) % 15.9 H Plt Count (130-400) 10^3/uL 366 MPV (8.0-11.0) fL 9.3 Immature Gran % % 0.3 Neutrophils % % 65.6 Lymphocytes % % 23.7 Monocytes % % 6.6 Eosinophils % % 2.7 Basophils % % 1.1 Nucleated RBC % (0.0-0.3) % 0.0 Absolute Neutrophils (1.2-6.7) 10^3/uL 4.60 Absolute Lymphocytes (1.2-3.4) 10^3/uL 1.66 Absolute Monocytes (0.1-0.8) 10^3/uL 0.46 Absolute Eosinophils (0.0-0.7) 10^3/uL 0.19 Absolute Basophils (0.0-0.2) 10^3/uL 0.08 PT (9.1-11.1) sec 10.1 INR (0.9-1.1) 1.0 Sodium (136-145) mmol/L 144 Potassium (3.5-5.1) mmol/L 3.9 Chloride (98-107) mmol/L 106 Carbon Dioxide (21.0-32.0) mmol/L 27.3 Anion Gap (3-11) mmol/L 10.7 BUN (7-18) mg/dL 19 H Creatinine (0.70-1.30) mg/dL 1.4 H Est GFR (CKD-EPI 2020) (mL/min/1.73m2) 58.26 Glucose (74-106) mg/dL 107 H Calcium (8.5-10.1) mg/dL 9.4 Magnesium (1.8-2.4) mg/dL 2.1 Total Bilirubin (0.2-1.0) mg/dL 0.5 AST (15-37) U/L 12 L ALT (16-63) U/L 12 L Alkaline Phosphatase (46-116) U/L 81 Troponin I (<or=76) ng/L 10 9 NT-Pro-B Natriuret Pep (<300) pg/mL 109 Total Protein (6.4-8.2) g/dL 8.1 Albumin (3.4-5.0) g/dL 3.8 Lipase (<78) U/L 28 COVID-19 Source Nasopharynx SARS-CoV-2 (PCR) (Negative) Negative Influenza Type A (PCR) (Negative) Negative Influenza Type B (PCR) (Negative) Negative RSV (PCR) (Negative) Negative Range/Units 07/03/24 11:28 WBC (4.4-10.8) 10^3/uL RBC (4.36-5.78) 10^6/uL Hgb (13.5-17.5) g/dL Hct (40.0-50.0) % MCV (80-95) fL MCH (27.0-33.0) pg MCHC (32.0-36.0) % RDW (11.8-14.1) % Plt Count (130-400) 10^3/uL MPV (8.0-11.0) fL Immature Gran % % Neutrophils % % Lymphocytes % % Monocytes % % Eosinophils % % Basophils % % Nucleated RBC % (0.0-0.3) % Absolute Neutrophils (1.2-6.7) 10^3/uL Absolute Lymphocytes (1.2-3.4) 10^3/uL Absolute Monocytes (0.1-0.8) 10^3/uL Absolute Eosinophils (0.0-0.7) 10^3/uL Absolute Basophils (0.0-0.2) 10^3/uL PT (9.1-11.1) sec INR (0.9-1.1) Sodium (136-145) mmol/L Potassium (3.5-5.1) mmol/L Chloride (98-107) mmol/L Carbon Dioxide (21.0-32.0) mmol/L Anion Gap (3-11) mmol/L BUN (7-18) mg/dL Creatinine (0.70-1.30) mg/dL Est GFR (CKD-EPI 2020) (mL/min/1.73m2) Glucose (74-106) mg/dL Calcium (8.5-10.1) mg/dL Magnesium (1.8-2.4) mg/dL Total Bilirubin (0.2-1.0) mg/dL AST (15-37) U/L ALT (16-63) U/L Alkaline Phosphatase (46-116) U/L Troponin I (<or=76) ng/L Cancelled NT-Pro-B Natriuret Pep (<300) pg/mL Total Protein (6.4-8.2) g/dL Albumin (3.4-5.0) g/dL Lipase (<78) U/L COVID-19 Source SARS-CoV-2 (PCR) (Negative) Influenza Type A (PCR) (Negative) Influenza Type B (PCR) (Negative) RSV (PCR) (Negative) Medical Decision Making Two negative troponin levels. Negative flu, COVID-19, and RSV tests. CT scan positive for left lower lobe infiltrate. Initial Assessment: 58-year-old male with history of bioprosthetic aortic valve, CVA with persistent right-sided deficits, opiate dependence, medical noncompliance, hypertension, COPD, CHF, and significant peripheral vascular disease. Presents with chest pain, weakness, cough, and shortness of breath since 0200 hours. Elevated BP at home. Compliant with medications. Denies headache, recent injuries, hemoptysis. Continues to smoke tobacco. Recent visit to another ED for bradycardia, sent home after 2 hours. Alert and oriented, baseline neurological deficits unchanged, able to follow commands and speak complete sentences. Rhonchi in left lower lobe, no respiratory distress. 2+ edema in bilateral lower extremities, redness on right lower extremity. Abdomen nontender. BP decreased to 170/80 after 10 mg hydralazine. Caregiver concerned about medication compliance. ED Course: - CT scan positive for left lower lobe infiltrate. - Prescribed cefpodoxime and doxycycline due to multiple risk factors. - Labs show no significant acute abnormalities, including two negative troponin levels. - Negative influenza, COVID-19, and RSV tests. - Reviewed return precautions, patient expressed understanding. - Patient ambulatory with steady gait and safe for discharge home Final Assessment: Patient presents with chest pain, weakness, cough, and shortness of breath. CT scan shows left lower lobe infiltrate. Labs and tests do not indicate significant acute abnormalities. BP managed with hydralazine. Prescribed antibiotics due to multiple risk factors. Clinical Impression: - Chest pain - Hypertension Disposition: - Discharge: Patient to be discharged with prescribed medications and return precautions reviewed. MDM Components Evaluation: - Number of Differential Diagnoses or Management Options: Chest pain, hypertension. - Amount and Complexity of Data Reviewed: CT scan, labs including troponin levels, influenza, COVID-19, and RSV tests. - Risk of Complication and Morbidity or Mortality: Elevated BP, history of significant comorbidities including COPD, CHF, and peripheral vascular disease. Quality:[facility] Health Related Social Needs: No Data to Display [facility] All Active Problems (Updated 07/03/24 @ 11:33 by CHIKI Meza) Oral thrush (Acute) Pneumonia (Acute) Bradycardia (Acute) Right middle lobe pneumonia (Acute) Hypoxia (Acute) Sepsis (Acute) Leukocytosis (Acute) Mild shortness of breath (Acute) Chest pain (Acute) Hypoxia (Acute) Recurrent apnea (Acute) Hypertensive emergency (Acute) Bilateral edema of lower extremity (Acute) Dyspnea (Acute) Right rotator cuff tear (Acute) Abnormal CT scan, kidney (Acute) Anxiety (Chronic) Medical non-compliance (Acute) Aragon esophagus (Acute) Opiate dependence (Chronic) managed on suboxone Medical History Obstructive sleep apnea Chronic venous insufficiency COPD (chronic obstructive pulmonary disease) Diabetic neuropathy Hx of deep venous thrombosis on Coumadin Diabetes mellitus Hypertension Cocaine abuse 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 S/P percutaneous endoscopic gastrostomy (PEG) tube placement History of ankle surgery S/P spinal surgery Family History Father No problems noted. Mother COPD (chronic obstructive pulmonary disease) Hypertension Diabetes Heart disease Sister Stroke Social History Smoking/Tobacco Use Status: Current every day Tobacco Type: cigarettes Years smoked: 44 Tobacco: How many years used: 40 Smoking risk assessment performed?: Yes Alcohol Intake: former Drug use: Daily Substance use type: marijuana and crack/cocaine Caregiver/Support person: Yes Household members: friend(s) Housing: house Number of Children: 0 number of grandchildren: 1 current occupation: Disabled Pets and animals: Yes Pets and animals: cat(s) Current gender identity: male What type of physical activity do you participate in: none Do you feel safe at home: Yes Do you feel safe in your relationship?: Yes Additional Social history: Lives with ex- Vanessa, who is his caregiver. Lives in private home.
== END 2024-07-03 12:38 | disposition home or self-care (01) ==
PROVIDERS: Emergency Provider Physician Assistant; PCP Family Medicine
DX: J18.9 Pneumonia, unspecified organism (principal); B37.0 Candidal stomatitis; I10 Essential (primary) hypertension; E11.40 Type 2 diabetes mellitus with diabetic neuropathy, unspecified; J44.9 Chronic obstructive pulmonary disease, unspecified; I69.354 Hemiplegia and hemiparesis following cerebral infarction affecting left non-dominant side; I45.19 Other right bundle-branch block; Z79.82 Long term (current) use of aspirin; Z79.85 Long-term (current) use of injectable non-insulin antidiabetic drugs; Z95.0 Presence of cardiac pacemaker; Z95.2 Presence of prosthetic heart valve
CPT/HCPCS: 36415; 71275; 80053; 83690; 87637; 93005; 99285; 74174; 83735; 83880; 84484; 85025; 85610; 93010; J3490

== ENCOUNTER 2024-07-07 15:04 | Emergency (ER) | payer MEDICAID, SELFPAY ==
[2024-07-07] VITALS (84 sets, daily range): BP systolic 154–216; BP diastolic 82–112; PULSE 41–88; RESP 0–27; TEMP 36.3; O2SAT 93–100
--- NOTE | 2024-07-07 15:00 | RT.EKG_ITS ---
APPROVED REPORT Exam: Resting ECG Reason for Exam: Chest Pain Patient Location: E HR:67 bpm ECG Measurements Heart Rate 67 AXIS PA 193 P 53 QRSd 139 QRS 35 QT 408 T 78 QTc 430 Conclusion Sinus rhythm...normal P axis, V-rate 60- 99 Probable left atrial enlargement...P >50mS, <-0.10mV V1 Right bundle branch block...QRSd>120, terminal axis(90,270)
[2024-07-07 15:36] LABS: Abs Immature Grans 0.02 10^3/uL (0.0-0.06); Absolute Basophil Count 0.08 10^3/uL (0.0-0.2); Absolute Eosinophil Count 0.13 10^3/uL (0.0-0.7); Absolute Lymphocyte Count 1.66 10^3/uL (1.2-3.4); Absolute Monocyte Count 0.66 10^3/uL (0.1-0.8); Absolute Neutrophil Count 4.51 10^3/uL (1.2-6.7); Basophils % 1.1 %; Eosinophils % 1.8 %; HCT 42.8 % (40.0-50.0); HGB 13.7 g/dL (13.5-17.5); Immature Grans % 0.3 %; Lymphocytes % 23.5 %; MCV 81 fL (80-95); MPV 9.4 fL (8.0-11.0); Monocytes % 9.3 %; Platelet Count 356 10^3/uL (130-400); RBC 5.26 10^6/uL (4.36-5.78); RDW 15.9 % (11.8-14.1); RDW-SD 46.7 fL; WBC 7.06 10^3/uL (4.4-10.8)
[2024-07-07 15:57] LABS: Magnesium 2.1 mg/dL (1.8-2.4); NT-proBNP 121 pg/mL (<300)
[2024-07-07 16:00] LABS: ALT 12 U/L (16-63); AST 9 U/L (15-37); Albumin 3.8 g/dL (3.4-5.0); Alkaline Phosphatase 75 U/L (46-116); Anion Gap 8.4 mmol/L (3-11); BUN 21 mg/dL (7-18); Bilirubin, Total 0.4 mg/dL (0.2-1.0); CO2 27.6 mmol/L (21.0-32.0); CREATININE 1.4 mg/dL (0.70-1.30); Calcium 9.4 mg/dL (8.5-10.1); Chloride 104 mmol/L (98-107); Estimated GFR 58.26 (mL/min/1.73m2); Glucose 121 mg/dL (74-106); Lipase 24 U/L (<78); Potassium 3.8 mmol/L (3.5-5.1); Sodium 140 mmol/L (136-145); Troponin I 10 ng/L (<or=76)
--- NOTE | 2024-07-07 16:00 | DI.RAD_ITS ---
Exam(s) XR CHEST 2V PA LATERAL EXAM: XR CHEST 2V PA LATERAL CLINICAL HISTORY: cough TECHNIQUE: 2D digital imaging was performed. Two views. COMPARISON: CR XR PORTABLE CHEST AP from 06/12/[address] THORAX ABD/PEL CTA from 07/03/2024 FINDINGS: HEART: Normal size. Aortic valve prosthesis. Aorta: Not dilated. PULMONARY VASCULATURE: Normal. MEDIASTINUM: Unremarkable. LUNGS: Clear. PLEURAL SPACE: No pleural effusion or pneumothorax. BONE:Unremarkable for age. Sternal wires. SOFT TISSUES: Unremarkable. IMPRESSION: No acute abnormality. DATA REPOSITORY: RADIATION DOSE DELIVERED:
[2024-07-07 16:03] LABS: D-Dimer 300 ng/mlFEU (<500)
[2024-07-07 16:56] LABS: Troponin I 9 ng/L (<or=76)
--- NOTE | 2024-07-07 17:26 | W.ED.GENAD ---
Discharge Plan Disposition Patient Disposition: Home Condition: Stable Discharge Details Clinical Impression: Chest pain of uncertain etiology Primary Care Provider: Evon Howard ED Provider: Rohan Lindquist Home Meds and New Rx's Prescriptions: Continued esomeprazole magnesium [Nexium] 40 mg capsule,delayed release(DR/EC) 40 mg PO DAILY Trulicity 4.5 mg/0.5 mL pen injector 4.5 mg subcut QWEEK Patient Comments: takes on monday albuterol sulfate 90 mcg/actuation HFA aerosol inhaler 2 inh inhalation Q6H PRN aspirin 81 mg Tablet 81 mg PO DAILY duloxetine 30 mg Capsule,Delayed Release(Dr/Ec) 30 mg PO BID acetaminophen [Tylenol] 325 mg tablet 1,000 mg PO Q6H PRN umeclidinium-vilanterol [Anoro Ellipta] 62.5-25 mcg/actuation blister with device 1 ea INHALATION DAILY Patient Comments: INHALE ONE PUFF BY MOUTH EVERY DAY buprenorphine-naloxone [Suboxone] 4-1 mg film 1 film sublingual DAILY Patient Comments: PLACE ONE FILM UNDER THE TONGUE EVERY DAY cyanocobalamin (vitamin B-12) [Vitamin B-12] 1,000 mcg tablet 1,000 mcg PO DAILY Qvar RediHaler 80 mcg/actuation HFA aerosol breath activated 1 inh INHALATION BID PRN Patient Comments: INHALE ONE PUFF BY MOUTH TWICE A DAY NEEDED furosemide [Lasix] 40 mg Tablet 40 mg PO DAILY Qty: 0 0RF spironolactone 25 mg Tablet 25 mg PO DAILY Qty: 30 0RF amlodipine 2.5 mg tablet 2.5 mg PO DAILY Patient Comments: TAKE ONE TABLET BY MOUTH EVERY DAY gabapentin 600 mg tablet 600 mg PO TID Patient Comments: TAKE ONE TABLET BY MOUTH THREE TIMES A DAY Lactobacillus acidophilus 500 million cell Capsule 500 mmu cells PO TID Qty: 30 0RF nystatin 100,000 unit/mL suspension 100,000 unit PO DAILY Qty: 60 0RF Rx Instructions: administer 1/2 of dose in each side of the mouth lisinopril 40 mg tablet 40 mg PO DAILY Patient Comments: TAKE ONE TABLET BY MOUTH EVERY DAY Discharge Instructions Instructions: Chest Pain, Adult ED Additional Instructions: You were seen in the emergency department for your chest pain with dizziness around 11 AM at home, please adhere to your normal medications, your cardiac workup is negative your chest x-ray shows no pneumonia and there are no other major abnormalities of your lab values to suggest a emergent process occurring. Please follow-up with your primary care provider to update echocardiogram and stress test with cardiology per their recommendations, please return to the emergency department for any continued chest pain with shortness of breath, syncope, intractable nausea or vomiting or any other emergent concerns Referrals: Evon Howard MD [Primary Care Provider] - Discharge Data Discharge Date/Time-TO BE ENTERED AT DEPARTURE: 07/07/24 20:10 HPI General Date/Time Provider Initiated Documentation: 07/07/24 15:05. HPI Narrative: 58 year-old male presents to ED today by EMS with a chief complaint of sternal CP, pressure with onset around 1100 today. Quality described as chest tightness, dizziness, high blood pressure reading at home, no radiation to fever, cough, shortness of breath, intractable nausea/vomiting, abdominal pain, syncope, vertigo, visual changes. Severity is described as moderate. Palliating factors include nothing specific attempted. Provoking factors include nothing specific. Events leading up to the incident/Associated Symptoms: Patient denies cardiac history- endorses history of stroke. Patient not anticoagulated. Related Data Home Medications ?Medication ?Instructions ?Recorded ?Confirmed esomeprazole magnesium 40 mg 40 mg PO DAILY 05/05/20 07/07/24 capsule,delayed release (Nexium) aspirin 81 mg tablet 81 mg PO DAILY 08/03/20 07/07/24 duloxetine 30 mg capsule,delayed 30 mg PO BID 08/03/20 07/07/24 release acetaminophen 325 mg tablet 1,000 mg PO Q6H PRN 09/27/20 07/07/24 (Tylenol) umeclidinium 62.5 mcg-vilanterol 1 ea inhalation DAILY 09/27/20 07/07/24 25 mcg/actuation powdr for inhalation (Anoro Ellipta) buprenorphine 4 mg-naloxone 1 mg 1 film sublingual DAILY 09/28/20 07/07/24 sublingual film (Suboxone) albuterol sulfate 90 mcg/actuation 2 inh inhalation Q6H PRN 04/12/22 07/07/24 aerosol inhaler dulaglutide 4.5 mg/0.5 mL 4.5 mg subcut QWEEK 04/12/22 07/07/24 subcutaneous pen injector (Trulicity) cyanocobalamin (vitamin B-12) 1,000 mcg PO DAILY 03/06/23 07/07/24 1,000 mcg tablet (Vitamin B-12) amlodipine 2.5 mg tablet 2.5 mg PO DAILY 09/30/23 07/07/24 gabapentin 600 mg tablet 600 mg PO TID 09/30/23 07/07/24 beclomethasone dipropionate 80 1 inh inhalation BID PRN 12/27/23 07/07/24 mcg/actuation HFA breath activated aerosol (Qvar RediHaler) furosemide 40 mg tablet (Lasix) 40 mg PO DAILY #0 tabs 12/29/23 07/07/24 Lactobacillus acidophilus 500 500 mmu cells PO TID #30 caps 02/09/24 07/07/24 million cell capsule spironolactone 25 mg tablet 25 mg PO DAILY #30 tabs 04/26/24 07/07/24 nystatin 100,000 unit/mL oral 100,000 unit PO DAILY #60 mL 07/03/24 07/07/24 suspension lisinopril 40 mg tablet 40 mg PO DAILY 07/07/24 07/07/24 Previous Rx's ?Medication ?Instructions ?Recorded furosemide 40 mg tablet (Lasix) 40 mg PO DAILY #0 tabs 12/29/23 Lactobacillus acidophilus 500 500 mmu cells PO TID #30 caps 02/09/24 million cell capsule spironolactone 25 mg tablet 25 mg PO DAILY #30 tabs 04/26/24 nystatin 100,000 unit/mL oral 100,000 unit PO DAILY #60 mL 07/03/24 suspension Allergies Allergy/AdvReac Type Severity Reaction Status Date / Time Penicillins AdvReac Severe Vomiting Verified 07/07/24 15:14 hydrocodone AdvReac Intermediate vomiting Verified 07/07/24 15:14 General Stated Complaint: Chest Pain LILLIAN: 3 Review of Systems All systems reviewed & are unremarkable except as noted in HPI and below Exam Narrative Exam Narrative: GENERAL APPEARANCE: Well-nourished, non-toxic, awake and alert, atraumatic, no acute distress. SKIN: Warm, pink, dry, intact, without rashes/lesions/ulcerations. HEAD: Normocephalic, atraumatic, normal hair distribution for gender/age. EYES: Normal conjunctiva, no exudates on lids/lashes. ENT: Nares patent, no circumoral cyanosis, no facial swelling NECK: Supple, trachea midline, painless cervical ROM. LUNGS/CHEST: Lungs CTA bilaterally-no rhonchi/rales/wheezes diffusely, non-labored respirations, normal A/P diameter, symmetrical expansion, no chest wall deformity, minor right upper chest tenderness without crepitus HEART (CV/PV): Regular rate and rhythm without murmur, no peripheral edema, no JVD. ABDOMEN: Soft, non-distended, no guarding, no tenderness. MSK: Normal ROM, no swelling/deformity to bilateral UEs or LEs, moving all extremities without weakness, no cyanosis, spine midline without tenderness, normal curvature. NEURO: Mental Status AAOx4 - alert to person, place, time, events No facial droop, no forehead involvement, slurred speech at baseline Motor: No focal weakness - strength 5/5 in bilateral UEs and LEs, proximal and distal, symmetric. Sensory: sensation intact to light touch globally. Gait normal: patient ambulated without ataxia into ED room. PSYCH: euthymic, cooperative, pleasant, appropriate speech Course Vital Signs Vital signs: Vital Signs Temperature 36.3 C L 07/07/24 15:09 Pulse 76 07/07/24 15:09 Respiratory Rate 18 07/07/24 15:09 Blood Pressure 154/91 H 07/07/24 15:09 Pulse Oximetry 97 07/07/24 15:09 Temperature 36.3 C L 07/07/24 15:09 Temperature Source Tympanic 07/07/24 15:09 Pulse 69 07/07/24 16:50 Pulse 77 07/07/24 16:50 Respiratory Rate 17 07/07/24 16:50 Respiratory Effort Normal, Non-Labored 07/07/24 15:37 Respiratory Depth Normal 07/07/24 15:37 Respiratory Pattern Normal 07/07/24 15:37 Blood Pressure 173/101 H 07/07/24 16:45 Blood Pressure Mean 123 07/07/24 16:45 Pulse Oximetry 99 07/07/24 16:50 Oxygen Delivery Method Room Air 07/07/24 15:09 Oxygen Flow Rate 0 07/07/24 15:09 Lab/Test Results Lab/Test Results: Laboratory Tests Range/Units 07/07/24 07/07/24 15:21 16:31 WBC (4.4-10.8) 10^3/uL 7.06 RBC (4.36-5.78) 10^6/uL 5.26 Hgb (13.5-17.5) g/dL 13.7 Hct (40.0-50.0) % 42.8 MCV (80-95) fL 81 MCH (27.0-33.0) pg 26.0 L MCHC (32.0-36.0) % 32.0 RDW (11.8-14.1) % 15.9 H Plt Count (130-400) 10^3/uL 356 MPV (8.0-11.0) fL 9.4 Immature Gran % % 0.3 Neutrophils % % 64.0 Lymphocytes % % 23.5 Monocytes % % 9.3 Eosinophils % % 1.8 Basophils % % 1.1 Nucleated RBC % (0.0-0.3) % 0.0 Absolute Neutrophils (1.2-6.7) 10^3/uL 4.51 Absolute Lymphocytes (1.2-3.4) 10^3/uL 1.66 Absolute Monocytes (0.1-0.8) 10^3/uL 0.66 Absolute Eosinophils (0.0-0.7) 10^3/uL 0.13 Absolute Basophils (0.0-0.2) 10^3/uL 0.08 D-Dimer (<500) ng/mlFEU 300 Sodium (136-145) mmol/L 140 Potassium (3.5-5.1) mmol/L 3.8 Chloride (98-107) mmol/L 104 Carbon Dioxide (21.0-32.0) mmol/L 27.6 Anion Gap (3-11) mmol/L 8.4 BUN (7-18) mg/dL 21 H Creatinine (0.70-1.30) mg/dL 1.4 H Est GFR (CKD-EPI 2020) (mL/min/1.73m2) 58.26 Glucose (74-106) mg/dL 121 H Calcium (8.5-10.1) mg/dL 9.4 Magnesium (1.8-2.4) mg/dL 2.1 Total Bilirubin (0.2-1.0) mg/dL 0.4 AST (15-37) U/L 9 L ALT (16-63) U/L 12 L Alkaline Phosphatase (46-116) U/L 75 Troponin I (<or=76) ng/L 10 9 NT-Pro-B Natriuret Pep (<300) pg/mL 121 Total Protein (6.4-8.2) g/dL 8.0 Albumin (3.4-5.0) g/dL 3.8 Lipase (<78) U/L 24 Medical Decision Making This dictation utilizes [id number] dictation software and may contain unedited grammatical errors. 58 year-old male presents to ED today by EMS with a chief complaint of sternal CP, pressure with onset around 1100 today. Quality described as chest tightness, dizziness, high blood pressure reading at home, no radiation to fever, cough, shortness of breath, intractable nausea/vomiting, abdominal pain, syncope, vertigo, visual changes. Severity is described as moderate. Palliating factors include nothing specific attempted. Provoking factors include nothing specific. Events leading up to the incident/Associated Symptoms: Patient denies cardiac history- endorses history of stroke. Patients' medical history: Pneumonia, history of chest pain, hypertensive emergency, opiate dependence, depression, cerebral septic emboli, history of cocaine abuse, diabetes mellitus, COPD, CVI. Family and social history: Denies any illicit substance use or EtOH use currently. Pertinent exam findings / vital signs include benign cardiopulmonary exam, neuro baseline, slurred speech at baseline, benign abdomen, stable vitals without fever, no tachycardia. Has open heart surgery scar- poor historian. Differential / pathologies of concern include ACS, PE, COPD exacerbation, pneumonia, less likely CHF, pancreatitis. Diagnostic studies of: - CBC, CMP, D-dimer, serial troponins, magnesium, BNP, lipase, EKG, XR chest. - CBC shows no leukocytosis, no anemia - D-dimer negative - CMP without acute abnormality, creatinine baseline - Serial troponins negative - BNP negative - Lipase negative - Magnesium within normal limits - EKG shows no ischemic changes, normal axis, no new left bundle branch block - XR chest without acute abnormality Interventions of: -None, patient already took 324mg ASA at onset- pain improved throughout visit. ED Course/Assessment/Plan: 58-year-old male presents with chest pressure and dizziness onset 11 AM today, has cardiac history of valve replacement and significant drug use in the past, serial troponins are negative and EKG shows no acute concerns at this time, his pain improved throughout the visit. He is requesting discharge home, his heart score is moderate but he can likely follow-up with for the stress test and echocardiogram, we did perform 3-hour high-sensitivity troponins, D-dimer is negative, he has no evidence of pneumonia or other abnormality on his chest x-ray no evidence of infection or electrolyte disturbance, counseled strict return criteria for any worsening chest pain especially shortness of breath, sweating. Findings not consistent with ACS, PE, pneumonia, CHF. Disposition of chest pain of uncertain etiology. Patient verbalized understanding of the plan and return to ED criteria and engaged in shared decision making. Medical Records Medical records reviewed: Yes I reviewed the patient's medical records. Imaging Data Radiologic Study: Attestation: I personally reviewed and interpreted this imaging study as follows: Imaging: X-Ray Radiologist's impression: Exam: XR Chest Exam date and time: 07/07/2024 4:23 PM Age: 58 years old Clinical indication: Other: Chest pain TECHNIQUE: Imaging protocol: Radiologic exam of the chest. Views: 2 views. COMPARISON: CT THORAX ABD/PEL CTA 07/03/2024 8:50 AM FINDINGS: Lungs: [id number] bilateral hyperinflation suggesting underlying emphysema/COPD. No acute infiltrative changes. No pulmonary edema. Pleural spaces: No pleural effusion. No pneumothorax. Heart/Mediastinum: Normal heart size. No mediastinal widening. Prosthetic aortic valve. Bones/joints: Degenerative thoracic spine changes. IMPRESSION: 1. Emphysema/COPD. 2. No acute infiltrates or edema. 3. No acute pleural changes. 4. Previous open-heart surgery with aortic valve replacement. 5. Degenerative skeletal change. Dictated and Authenticated by: Ke Rivero MD. Lab Data Lab results reviewed: Yes I reviewed the patient's lab results. Labs: Laboratory Tests Range/Units 07/07/24 07/07/24 07/07/24 15:21 16:31 18:40 WBC (4.4-10.8) 10^3/uL 7.06 RBC (4.36-5.78) 10^6/uL 5.26 Hgb (13.5-17.5) g/dL 13.7 Hct (40.0-50.0) % 42.8 MCV (80-95) fL 81 MCH (27.0-33.0) pg 26.0 L MCHC (32.0-36.0) % 32.0 RDW (11.8-14.1) % 15.9 H Plt Count (130-400) 10^3/uL 356 MPV (8.0-11.0) fL 9.4 Immature Gran % % 0.3 Neutrophils % % 64.0 Lymphocytes % % 23.5 Monocytes % % 9.3 Eosinophils % % 1.8 Basophils % % 1.1 Nucleated RBC % (0.0-0.3) % 0.0 Absolute Neutrophils (1.2-6.7) 10^3/uL 4.51 Absolute Lymphocytes (1.2-3.4) 10^3/uL 1.66 Absolute Monocytes (0.1-0.8) 10^3/uL 0.66 Absolute Eosinophils (0.0-0.7) 10^3/uL 0.13 Absolute Basophils (0.0-0.2) 10^3/uL 0.08 D-Dimer (<500) ng/mlFEU 300 Sodium (136-145) mmol/L 140 Potassium (3.5-5.1) mmol/L 3.8 Chloride (98-107) mmol/L 104 Carbon Dioxide (21.0-32.0) mmol/L 27.6 Anion Gap (3-11) mmol/L 8.4 BUN (7-18) mg/dL 21 H Creatinine (0.70-1.30) mg/dL 1.4 H Est GFR (CKD-EPI 2020) (mL/min/1.73m2) 58.26 Glucose (74-106) mg/dL 121 H Calcium (8.5-10.1) mg/dL 9.4 Magnesium (1.8-2.4) mg/dL 2.1 Total Bilirubin (0.2-1.0) mg/dL 0.4 AST (15-37) U/L 9 L ALT (16-63) U/L 12 L Alkaline Phosphatase (46-116) U/L 75 Troponin I (<or=76) ng/L 10 9 10 NT-Pro-B Natriuret Pep (<300) pg/mL 121 Total Protein (6.4-8.2) g/dL 8.0 Albumin (3.4-5.0) g/dL 3.8 Lipase (<78) U/L 24 Quality:SDOH Health Related Social Needs: No Data to Display PFSH All Active Problems (Updated 07/07/24 @ 19:37 by CHIKI Ramey) Chest pain of uncertain etiology (Acute) Oral thrush (Acute) Pneumonia (Acute) Bradycardia (Acute) Right middle lobe pneumonia (Acute) Hypoxia (Acute) Sepsis (Acute) Leukocytosis (Acute) Mild shortness of breath (Acute) Chest pain (Acute) Hypoxia (Acute) Recurrent apnea (Acute) Hypertensive emergency (Acute) Bilateral edema of lower extremity (Acute) Dyspnea (Acute) Right rotator cuff tear (Acute) Abnormal CT scan, kidney (Acute) Anxiety (Chronic) Medical non-compliance (Acute) Aragon esophagus (Acute) Opiate dependence (Chronic) managed on suboxone Medical History Obstructive sleep apnea Chronic venous insufficiency COPD (chronic obstructive pulmonary disease) Diabetic neuropathy Hx of deep venous thrombosis on Coumadin Diabetes mellitus Hypertension Cocaine abuse 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 S/P percutaneous endoscopic gastrostomy (PEG) tube placement History of ankle surgery S/P spinal surgery Family History Father No problems noted. Mother COPD (chronic obstructive pulmonary disease) Hypertension Diabetes Heart disease Sister Stroke Social History Smoking/Tobacco Use Status: Current every day Tobacco Type: cigarettes Years smoked: 44 Tobacco: How many years used: 40 Smoking risk assessment performed?: Yes Alcohol Intake: former Drug use: Daily Substance use type: marijuana and crack/cocaine Caregiver/Support person: Yes Household members: friend(s) Housing: house Number of Children: 0 number of grandchildren: 1 current occupation: Disabled Pets and animals: Yes Pets and animals: cat(s) Current gender identity: male What type of physical activity do you participate in: none Do you feel safe at home: Yes Do you feel safe in your relationship?: Yes Additional Social history: Lives with ex- Vanessa, who is his caregiver. Lives in private home.
--- NOTE | 2024-07-07 17:42 | DI.VRAD_ITS ---
PROCEDURE INFORMATION: Exam: XR Chest Exam date and time: 07/07/2024 4:23 PM Age: 58 years old Clinical indication: Other: Chest pain TECHNIQUE: Imaging protocol: Radiologic exam of the chest. Views: 2 views. COMPARISON: CT THORAX ABD/PEL CTA 07/03/2024 8:50 AM FINDINGS: Lungs: [id number] bilateral hyperinflation suggesting underlying emphysema/COPD. No acute infiltrative changes. No pulmonary edema. Pleural spaces: No pleural effusion. No pneumothorax. Heart/Mediastinum: Normal heart size. No mediastinal widening. Prosthetic aortic valve. Bones/joints: Degenerative thoracic spine changes. IMPRESSION: 1. Emphysema/COPD. 2. No acute infiltrates or edema. 3. No acute pleural changes. 4. Previous open-heart surgery with aortic valve replacement. 5. Degenerative skeletal change. Dictated and Authenticated by: Ke Rivero MD. Orderin Lexa Madrigal MD
--- NOTE | 2024-07-07 18:45 | RT.EKG_ITS ---
APPROVED REPORT Exam: Resting ECG Reason for Exam: bradycardia Patient Location: E HR:67 bpm ECG Measurements Heart Rate 67 AXIS VA 217 P 50 QRSd 141 QRS -15 QT 428 T 80 QTc 452 Conclusion Sinus rhythm...normal P axis, V-rate 60- 99 Prolonged VA interval...VA >210, V-rate 50- 90 Probable left atrial enlargement...P >50mS, <-0.10mV V1 Right bundle branch block...QRSd>120, terminal axis(90,270) Inferior infarct, old...Q >35mS, II III aVF
[2024-07-07 19:10] LABS: Troponin I 10 ng/L (<or=76)
== END 2024-07-07 20:10 | disposition home or self-care (01) ==
PROVIDERS: Emergency Provider Physician Assistant; PCP Family Medicine
DX: R07.9 Chest pain, unspecified (principal); E11.40 Type 2 diabetes mellitus with diabetic neuropathy, unspecified; J44.9 Chronic obstructive pulmonary disease, unspecified; I10 Essential (primary) hypertension; I45.19 Other right bundle-branch block; Z86.718 Personal history of other venous thrombosis and embolism; Z79.82 Long term (current) use of aspirin; F17.210 Nicotine dependence, cigarettes, uncomplicated
CPT/HCPCS: 36415; 80053; 83690; 93005; 99285; 71046; 83735; 83880; 84484; 85025; 85379; 93010; 99284

== ENCOUNTER 2024-07-11 08:42 | Emergency (ER) | payer MEDICAID, SELFPAY ==
[2024-07-11] VITALS (94 sets, daily range): BP systolic 136–260; BP diastolic 60–120; PULSE 38–77; RESP 0–35; TEMP 36.9; O2SAT 84–99
--- NOTE | 2024-07-11 08:45 | RT.EKG_ITS ---
APPROVED REPORT Exam: Resting ECG Reason for Exam: [facility] Patient Location: E HR:47 bpm ECG Measurements Heart Rate 47 AXIS OK 196 P 47 QRSd 146 QRS 55 QT 465 T 93 QTc 413 Conclusion Sinus bradycardia...rate< 60 Right bundle branch block...QRSd>120, terminal axis(90,270) Sinus rhythm with right bundle branch block. When compared to 07/07/24 no longer has proloonge OK.
--- NOTE | 2024-07-11 08:57 | ED.GENADUL_ITS ---
Discharge Plan Disposition Patient Disposition: Home Condition: Improving Discharge Details Clinical Impression: Cocaine abuse, Fatigue, Bradycardia Primary Care Provider: Evon Howard ED Provider: Leonor Be Home Meds and New Rx's Prescriptions: No Action esomeprazole magnesium [Nexium] 40 mg capsule,delayed release(DR/EC) 40 mg PO DAILY Trulicity 4.5 mg/0.5 mL pen injector 4.5 mg subcut QWEEK Patient Comments: takes on monday albuterol sulfate 90 mcg/actuation HFA aerosol inhaler 2 inh inhalation Q6H PRN aspirin 81 mg Tablet 81 mg PO DAILY duloxetine 30 mg Capsule,Delayed Release(Dr/Ec) 30 mg PO BID acetaminophen [Tylenol] 325 mg tablet 1,000 mg PO Q6H PRN umeclidinium-vilanterol [Anoro Ellipta] 62.5-25 mcg/actuation blister with device 1 ea INHALATION DAILY Patient Comments: INHALE ONE PUFF BY MOUTH EVERY DAY buprenorphine-naloxone [Suboxone] 4-1 mg film 1 film sublingual DAILY Patient Comments: PLACE ONE FILM UNDER THE TONGUE EVERY DAY cyanocobalamin (vitamin B-12) [Vitamin B-12] 1,000 mcg tablet 1,000 mcg PO DAILY Qvar RediHaler 80 mcg/actuation HFA aerosol breath activated 1 inh INHALATION BID PRN Patient Comments: INHALE ONE PUFF BY MOUTH TWICE A DAY NEEDED furosemide [Lasix] 40 mg Tablet 40 mg PO DAILY Qty: 0 0RF Patient Comments: states he doesn't take spironolactone 25 mg Tablet 25 mg PO DAILY Qty: 30 0RF amlodipine 2.5 mg tablet 2.5 mg PO DAILY Patient Comments: TAKE ONE TABLET BY MOUTH EVERY DAY gabapentin 600 mg tablet 600 mg PO TID Patient Comments: TAKE ONE TABLET BY MOUTH THREE TIMES A DAY Lactobacillus acidophilus 500 million cell Capsule 500 mmu cells PO TID Qty: 30 0RF nystatin 100,000 unit/mL suspension 100,000 unit PO DAILY Qty: 60 0RF Rx Instructions: administer 1/2 of dose in each side of the mouth lisinopril 40 mg tablet 40 mg PO DAILY Patient Comments: TAKE ONE TABLET BY MOUTH EVERY DAY Discharge Instructions Instructions: Bradycardia, Cocaine use disorder, Fatigue (DC) Additional Instructions: There were no acute findings on your workup today. You do have intermittent bradycardia as you are aware. It has been recommended in the past that you have a pacemaker placed. I do strongly recommend following up with cardiology to make these arrangements. Referrals: Evon Howard MD [Primary Care Provider] - Discharge Data Discharge Physician: Leonor Be [facility] General Date/Time Provider Initiated Documentation: 07/11/24 08:48 . HPI Narrative: 58-year-old male with history of valve replacement, substance abuse presents for evaluation of not feeling well. Apparently he was found laying on the ground in a position moaning. EMS was called. At time my evaluation he states I do not feel good. He denies any chest pain or shortness of breath. No known trauma. He is moving his extremities appropriately. Related Data Home Medications ?Medication ?Instructions ?Recorded ?Confirmed esomeprazole magnesium 40 mg 40 mg PO DAILY 05/05/20 07/11/24 capsule,delayed release (Nexium) aspirin 81 mg tablet 81 mg PO DAILY 08/03/20 07/11/24 duloxetine 30 mg capsule,delayed 30 mg PO BID 08/03/20 07/11/24 release acetaminophen 325 mg tablet 1,000 mg PO Q6H PRN 09/27/20 07/11/24 (Tylenol) umeclidinium 62.5 mcg-vilanterol 1 ea inhalation DAILY 09/27/20 07/11/24 25 mcg/actuation powdr for inhalation (Anoro Ellipta) buprenorphine 4 mg-naloxone 1 mg 1 film sublingual DAILY 09/28/20 07/11/24 sublingual film (Suboxone) albuterol sulfate 90 mcg/actuation 2 inh inhalation Q6H PRN 04/12/22 07/11/24 aerosol inhaler dulaglutide 4.5 mg/0.5 mL 4.5 mg subcut QWEEK 04/12/22 07/11/24 subcutaneous pen injector (Trulicity) cyanocobalamin (vitamin B-12) 1,000 mcg PO DAILY 03/06/23 07/11/24 1,000 mcg tablet (Vitamin B-12) amlodipine 2.5 mg tablet 2.5 mg PO DAILY 09/30/23 07/11/24 gabapentin 600 mg tablet 600 mg PO TID 09/30/23 07/11/24 beclomethasone dipropionate 80 1 inh inhalation BID PRN 12/27/23 07/11/24 mcg/actuation HFA breath activated aerosol (Qvar RediHaler) furosemide 40 mg tablet (Lasix) 40 mg PO DAILY #0 tabs 12/29/23 07/11/24 Lactobacillus acidophilus 500 500 mmu cells PO TID #30 caps 02/09/24 07/11/24 million cell capsule spironolactone 25 mg tablet 25 mg PO DAILY #30 tabs 04/26/24 07/11/24 nystatin 100,000 unit/mL oral 100,000 unit PO DAILY #60 mL 07/03/24 07/11/24 suspension lisinopril 40 mg tablet 40 mg PO DAILY 07/07/24 07/11/24 Previous Rx's ?Medication ?Instructions ?Recorded furosemide 40 mg tablet (Lasix) 40 mg PO DAILY #0 tabs 12/29/23 Lactobacillus acidophilus 500 500 mmu cells PO TID #30 caps 02/09/24 million cell capsule spironolactone 25 mg tablet 25 mg PO DAILY #30 tabs 04/26/24 nystatin 100,000 unit/mL oral 100,000 unit PO DAILY #60 mL 07/03/24 suspension Allergies Allergy/AdvReac Type Severity Reaction Status Date / Time Penicillins AdvReac Severe Vomiting Verified 07/07/24 15:14 hydrocodone AdvReac Intermediate vomiting Verified 07/07/24 15:14 General Stated Complaint: GenMedical LILLIAN: 3 Review of Systems Narrative: Remainder review of systems otherwise unobtainable due to patient's condition. Exam Narrative Exam Narrative: General: non-toxic, no respiratory distress, comfortable HEENT: normocephalic, atraumatic, lids and lashes normal, PERRL, EOMI, anicteric sclera, no conjunctival injection, moist oral mucosa Neck: No vertebral tenderness Card: regular rate and rhythm, S1S2, no murmurs, rubs, or gallops Lungs: good air entry, clear to auscultation bilaterally. no wheezes, rales, rhonchi, or retractions Abd: soft, non-tender, non-distended, normal bowel sounds, no rebound or guarding, no peritoneal signs Musculoskeletal: No vertebral tenderness, pelvis stable, full range of motion of arms and legs, no tenderness to palpation. no clubbing, cyanosis, or edema Neurologic: Intermittently following commands, speech normal, sensation intact, full strength to extremities Psych: alert and oriented Skin: no petechiae, no lesions, warm and dry Course Vital Signs Vital signs: Vital Signs Temperature 36.9 C 07/11/24 08:45 Pulse 60 07/11/24 08:45 Respiratory Rate 15 07/11/24 08:45 Blood Pressure 136/84 07/11/24 08:45 Pulse Oximetry 99 07/11/24 08:45 Temperature 36.9 C 07/11/24 08:49 Temperature Source Temporal Artery Scan 07/11/24 08:49 Pulse 60 07/11/24 08:49 Respiratory Rate 15 07/11/24 08:49 Blood Pressure 136/84 07/11/24 08:49 Blood Pressure Position Supine 07/11/24 08:49 Pulse Oximetry 99 07/11/24 08:49 Oxygen Delivery Method Room Air 07/11/24 08:49 Oxygen Flow Rate 0 07/11/24 08:49 Medical Decision Making 58-year-old male with history of valve replacement substance abuse presents for evaluation of not feeling well. At time my evaluation he is intermittently answering questions and following commands. He does not appear to have any ne urologic deficits at this time. CT head and cervical spine were obtained and unremarkable. Chest x-ray unremarkable. EKG shows sinus bradycardia with right bundle branch block. No change from prior. Patient does have intermittent bradycardia. Upon resting he did awake and was more interactive. He continues to state that he just does not feel well. No chest pain or shortness of breath. No fevers or chills. He is just tired. No vomiting or diarrhea. He states he was been taking his home medication although family told nursing that he had not been. His BUN and creatinine are elevated today and IV fluids were given. No signs of fluid overload. Patient was on monitor throughout ED stay. He did have episodes of bradycardia. He was recently recommended to have a pacemaker and was transferred to outside hospital to have this done and left AMA prior to having the procedure done. His U tox does show that he is positive for cocaine. On discussion with patient he is not sure when he used cocaine he states it may have been recently or couple of days ago. This may be adding to his fatigue today. I do not find any signs of acute cardiac disease or bacterial illness. I do not see any indications for admission at this time. On reevaluation he is neuro intact able to follow commands and move all of his extremities. He is agreeable to discharge home at this time. He understands indications to return. Quality:SDOH Health Related Social Needs: No Data to Display [facility] All Active Problems (Updated 07/11/24 @ 15:46 by Leonor Be MD) Fatigue (Acute) Cocaine abuse (Acute) Chest pain of uncertain etiology (Acute) Oral thrush (Acute) Pneumonia (Acute) Bradycardia (Acute) Right middle lobe pneumonia (Acute) Hypoxia (Acute) Sepsis (Acute) Leukocytosis (Acute) Mild shortness of breath (Acute) Chest pain (Acute) Hypoxia (Acute) Recurrent apnea (Acute) Hypertensive emergency (Acute) Bilateral edema of lower extremity (Acute) Dyspnea (Acute) Right rotator cuff tear (Acute) Abnormal CT scan, kidney (Acute) Anxiety (Chronic) Medical non-compliance (Acute) Aragon esophagus (Acute) Opiate dependence (Chronic) managed on suboxone Medical History Obstructive sleep apnea Chronic venous insufficiency COPD (chronic obstructive pulmonary disease) Diabetic neuropathy Hx of deep venous thrombosis on Coumadin Diabetes mellitus Hypertension Cocaine abuse 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 S/P percutaneous endoscopic gastrostomy (PEG) tube placement History of ankle surgery S/P spinal surgery Family History Father No problems noted. Mother COPD (chronic obstructive pulmonary disease) Hypertension Diabetes Heart disease Sister Stroke Social History Smoking/Tobacco Use Status: Current every day Tobacco Type: cigarettes Years smoked: 44 Tobacco: How many years used: 40 Smoking risk assessment performed?: Yes Alcohol Intake: former Drug use: Daily Substance use type: marijuana and crack/cocaine Caregiver/Support person: Yes Household members: friend(s) Housing: house Number of Children: 0 number of grandchildren: 1 current occupation: Disabled Pets and animals: Yes Pets and animals: cat(s) Current gender identity: male What type of physical activity do you participate in: none Do you feel safe at home: Yes Do you feel safe in your relationship?: Yes Additional Social history: Lives with ex- Vanessa, who is his caregiver. Lives in private home.
--- NOTE | 2024-07-11 09:00 | DI.CT_ITS ---
Exam(s) CT HEAD CERVICAL SPINE WO EXAM: CT HEAD CERVICAL SPINE WO CLINICAL HISTORY: AMS. TECHNIQUE: Imaging Protocol: Axial computed tomography images with coronal and sagittal reformatted images were created and reviewed COMPARISON: CT CT HEAD WO from 02/23/2023 FINDINGS: Head CT Ventricles and Extra axial spaces: Ex vacuo dilatation of the left lateral ventricle again noted. Hemorrhage: None. Cerebral parenchyma: No evidence of mass or acute infarct. Stable appearance of old infarcts in the left frontal and parietal lobes. Midline shift: None. Brainstem/Cerebellum: Normal. Calvarium: Normal. Visualized Paranasal sinuses/Mastoids: Mild mucosal thickening. Soft tissues: Unremarkable. Cervical Spine CT BONES: Vertebral body heights are maintained. Alignment is normal. There is no evidence of acute frac ture. Minimal degenerative disc changes and facet degenerative changes are seen . SOFT TISSUES: No paraspinal hematoma. The airway appears intact. No pneumothorax is seen at the lung apices. IMPRESSION: Head CT: No acute abnormality.Old left frontal parietal infarcts. C-spine CT: No acute abnormality. RADIATION DOSE DELIVERED: 1,280.08mGy.cm Total DLP DATA REPOSITORY: All CT scans at this facility are submitted to the National Radiology Data Registry (NRDR) Dose Index Registry (DIR) with the [employer] (A[employer]). RADIATION OPTIMIZATION: All CT scans at this facility use at least one of these dose optimization te chniques: automated exposure control; mA and/or kV adjustment per patient size (includes targeted exa ms where dose is matched to clinical indication); or iterative reconstruction.
[2024-07-11 10:13] LABS: Abs Immature Grans 0.01 10^3/uL (0.0-0.06); Absolute Basophil Count 0.11 10^3/uL (0.0-0.2); Absolute Eosinophil Count 0.32 10^3/uL (0.0-0.7); Absolute Monocyte Count 0.62 10^3/uL (0.1-0.8); Absolute Neutrophil Count 4.22 10^3/uL (1.2-6.7); Basophils % 1.7 %; Eosinophils % 4.9 %; HCT 41.7 % (40.0-50.0); Immature Grans % 0.2 %; Lymphocytes % 19.8 %; MCHC 31.2 % (32.0-36.0); MCV 83 fL (80-95); MPV 9.4 fL (8.0-11.0); Monocytes % 9.4 %; Platelet Count 318 10^3/uL (130-400); RDW 16.3 % (11.8-14.1); RDW-SD 49.7 fL; WBC 6.58 10^3/uL (4.4-10.8)
[2024-07-11 10:40] LABS: ALT 12 U/L (16-63); AST 11 U/L (15-37); Albumin 3.4 g/dL (3.4-5.0); Alkaline Phosphatase 70 U/L (46-116); Anion Gap 5.9 mmol/L (3-11); BUN 41 mg/dL (7-18); Bilirubin, Total 0.2 mg/dL (0.2-1.0); CO2 30.1 mmol/L (21.0-32.0); CREATININE 2.3 mg/dL (0.70-1.30); Calcium 8.8 mg/dL (8.5-10.1); Chloride 107 mmol/L (98-107); Estimated GFR 32.11 (mL/min/1.73m2); Glucose 121 mg/dL (74-106); Lipase 47 U/L (<78); Magnesium 2.2 mg/dL (1.8-2.4); Potassium 4.2 mmol/L (3.5-5.1); Sodium 143 mmol/L (136-145); Total Protein 6.9 g/dL (6.4-8.2); Troponin I 9 ng/L (<or=76)
[2024-07-11 10:41] LABS: ETHANOL BLOOD < 3.0 mg/dL (<10)
--- NOTE | 2024-07-11 11:32 | DI.RAD_ITS ---
Exam(s) XR PORTABLE CHEST AP EXAM: XR PORTABLE CHEST AP CLINICAL HISTORY: AMS TECHNIQUE: 2D digital imaging was performed. COMPARISON: CR,XR XR CHEST 2V PA LATERAL from 07/07/2024 FINDINGS: LUNGS: Clear. No pleural abnormality seen. HEART: Normal size. Aortic valve prosthesis. AORTA: Normal diameter. BONES: Unremarkable for age. Soft tissues: Unremarkable. IMPRESSION: No acute findings. DATA REPOSITORY: RADIATION DOSE DELIVERED:
[2024-07-11 11:39] LABS: Troponin I 10 ng/L (<or=76)
[2024-07-11 13:33] LABS: NT-proBNP 94 pg/mL (<300)
[2024-07-11 14:02] LABS: Troponin I 15 ng/L (<or=76)
[2024-07-11 14:43] LABS: Bilirubin Negative (Negative); Blood Negative (Negative); Clarity Clear (Clear); Glucose 100 mg/dL (Negative); Ketones Negative (Negative); Leukocyte Esterase Negative (Negative); Nitrite Negative (Negative); Urobilinogen 0.2 mg/dL (Up to 0.2)
[2024-07-11 14:53] LABS: Bacteria Rare HPF (Negative); C & S Indicated? No; Casts Negative LPF (Negative); Crystals Negative HPF (Negative); Epithelial Cells Rare HPF (Negative); Mucus Negative (Negative); RBC 0-2 HPF (0-2); WBC 0-2 HPF (0-5)
[2024-07-11 15:08] LABS: *AMPHETAMINES SCREEN URINE Negative (Negative); *BARBITURATES SCREEN URINE Negative (Negative); *BENZODIAZEPINES SCREEN URINE Negative (Negative); Cannabinoids THC Positive (Negative); Cocaine Screen,Urine Positive (Negative); METHADONE URINE SCREEN Negative (Negative); OPIATES URINE SCREEN Negative (Negative)
[2024-07-11 15:09] LABS: Tricyclic Antidepressants Negative (Negative)
[2024-07-11 15:57] LABS: COVID-19 PCR Negative (Negative); Influenza A PCR Negative (Negative); Influenza B PCR Negative (Negative); RSV PCR Negative (Negative)
[2024-07-11 16:07] LABS: Source Nasopharynx
== END 2024-07-11 16:00 | disposition home or self-care (01) ==
PROVIDERS: Emergency Provider Emergency Medicine Emergency Medical Services; PCP Family Medicine
DX: R53.83 Other fatigue; R00.1 Bradycardia, unspecified; F14.10 Cocaine abuse, uncomplicated
CPT/HCPCS: 99284 ×2; 36415; 80053; 80307; 83690; 87637; 93005; 70450; 71045; 72125; 80320; 81003; 81015; 83735; 83880; 84484; 85025; 93010

== ENCOUNTER 2024-09-24 02:25 | Observation (INO) | payer MEDICAID, SELFPAY ==
[2024-09-24] VITALS (24 sets, daily range): BP systolic 147–250; BP diastolic 73–110; PULSE 36–74; RESP 10–30; TEMP 36.4–36.5; O2SAT 95–98
--- NOTE | 2024-09-24 02:28 | W.ED.GENAD ---
Discharge Plan Disposition Patient Disposition: Admit to [facility] Condition: Stable Discharge Details Clinical Impression: Cellulitis of leg, right, Hypertension, Hypertensive emergency Primary Care Provider: Evon Howard ED Provider: Rohan Liao Home Meds and New Rx's Prescriptions: No Action esomeprazole magnesium [Nexium] 40 mg capsule,delayed release(DR/EC) 40 mg PO DAILY albuterol sulfate 90 mcg/actuation HFA aerosol inhaler 2 inh inhalation Q6H PRN aspirin 81 mg Tablet 81 mg PO DAILY duloxetine 30 mg Capsule,Delayed Release(Dr/Ec) 30 mg PO BID acetaminophen [Tylenol] 325 mg tablet 1,000 mg PO Q6H PRN buprenorphine-naloxone [Suboxone] 4-1 mg film 2 film sublingual DAILY Patient Comments: PLACE ONE FILM UNDER THE TONGUE EVERY DAY cyanocobalamin (vitamin B-12) [Vitamin B-12] 1,000 mcg tablet 1,000 mcg PO DAILY Qvar RediHaler 80 mcg/actuation HFA aerosol breath activated 1 inh INHALATION BID PRN Patient Comments: INHALE ONE PUFF BY MOUTH TWICE A DAY NEEDED furosemide [Lasix] 40 mg Tablet 40 mg PO DAILY Qty: 0 0RF Patient Comments: states he doesn't take spironolactone 25 mg Tablet 25 mg PO DAILY Qty: 30 0RF amlodipine 2.5 mg tablet 2.5 mg PO DAILY Patient Comments: TAKE ONE TABLET BY MOUTH EVERY DAY gabapentin 600 mg tablet 600 mg PO TID Patient Comments: TAKE ONE TABLET BY MOUTH THREE TIMES A DAY Lactobacillus acidophilus 500 million cell Capsule 500 mmu cells PO TID Qty: 30 0RF nystatin 100,000 unit/mL suspension 100,000 unit PO DAILY Qty: 60 0RF Rx Instructions: administer 1/2 of dose in each side of the mouth lisinopril 40 mg tablet 40 mg PO DAILY Patient Comments: TAKE ONE TABLET BY MOUTH EVERY DAY HPI General Date/Time Provider Initiated Documentation: 09/24/24 02:28. HPI Narrative: 58-year-old male with a past medical history of aortic valve replacement secondary to aortic valve endocarditis, COPD, chronic venous insufficiency, history of blood clot, diabetes mellitus, hypertension, previous cocaine use in the past, current tobacco user, previous stroke without deficits, presents today for evaluation of right leg redness. Patient states that over the last few days he developed some bubbles on his right lower leg, and eventually they all scraped off. He is not certain as to the exact timing of when this happened male. Over the last 24 to 48 hours the area that had been sloughed off has subsequently become notably red tender warm and inflamed. He contacted EMS this morning at 2 AM to be transition to the ED. He admits to feeling chills, fatigue, and feeling generally unwell. He denies any chest pain or shortness of breath. He denies any trauma to that area. No other complaints at this time. Related Data Home Medications ?Medication ?Instructions ?Recorded ?Confirmed esomeprazole magnesium 40 mg 40 mg PO DAILY 05/05/20 09/24/24 capsule,delayed release (Nexium) aspirin 81 mg tablet 81 mg PO DAILY 08/03/20 09/24/24 duloxetine 30 mg capsule,delayed 30 mg PO BID 08/03/20 09/24/24 release acetaminophen 325 mg tablet 1,000 mg PO Q6H PRN 09/27/20 09/24/24 (Tylenol) buprenorphine 4 mg-naloxone 1 mg 2 film sublingual DAILY 09/28/20 09/24/24 sublingual film (Suboxone) albuterol sulfate 90 mcg/actuation 2 inh inhalation Q6H PRN 04/12/22 09/24/24 aerosol inhaler cyanocobalamin (vitamin B-12) 1,000 mcg PO DAILY 03/06/23 09/24/24 1,000 mcg tablet (Vitamin B-12) amlodipine 2.5 mg tablet 2.5 mg PO DAILY 09/30/23 09/24/24 gabapentin 600 mg tablet 600 mg PO TID 09/30/23 09/24/24 beclomethasone dipropionate 80 1 inh inhalation BID PRN 12/27/23 09/24/24 mcg/actuation HFA breath activated aerosol (Qvar RediHaler) furosemide 40 mg tablet (Lasix) 40 mg PO DAILY #0 tabs 12/29/23 09/24/24 Lactobacillus acidophilus 500 500 mmu cells PO TID #30 caps 02/09/24 09/24/24 million cell capsule spironolactone 25 mg tablet 25 mg PO DAILY #30 tabs 04/26/24 09/24/24 nystatin 100,000 unit/mL oral 100,000 unit PO DAILY #60 mL 07/03/24 09/24/24 suspension lisinopril 40 mg tablet 40 mg PO DAILY 07/07/24 09/24/24 Previous Rx's ?Medication ?Instructions ?Recorded furosemide 40 mg tablet (Lasix) 40 mg PO DAILY #0 tabs 12/29/23 Lactobacillus acidophilus 500 500 mmu cells PO TID #30 caps 02/09/24 million cell capsule spironolactone 25 mg tablet 25 mg PO DAILY #30 tabs 04/26/24 nystatin 100,000 unit/mL oral 100,000 unit PO DAILY #60 mL 07/03/24 suspension Allergies Allergy/AdvReac Type Severity Reaction Status Date / Time Penicillins AdvReac Severe Vomiting Verified 09/24/24 02:29 hydrocodone AdvReac Intermediate vomiting Verified 09/24/24 02:29 General Stated Complaint: Cellulitis LILLIAN: 3 Exam Narrative Exam Narrative: 1.Const: Well-nourished, Well-developed, appearing stated age 2.Eyes: PERRL, no conjunctival injection, and symmetrical lids. 3.ENT: Atraumatic external nose and ears. Moist MM. Neck: Symmetric, trachea midline, No thyromegaly. 4.CVS: +S1/S2, Peripheral pulses 2+ and equal in all extremities. Brisk capillary refill in all extremities. 5.RESP: Unlabored respiratory effort. Clear to auscultation bilaterally. No wheezes rales or rhonchi 6.GI: Soft, Nontender/Nondistended, No hepatosplenomegaly. No guarding or rebound. 7.MSK: Normocephalic/Atraumatic, Extremities w/o deformity or ttp No cyanosis or clubbing, Normal movement of all extremities 8.Skin: Right lower extremity demonstrates a notable area of superficial skin that was avulsed or desquamated. Under that is a notably red raw and warm area. Dimensions are in the shape of a vase, and width is around 10 to 12 cm and length is around 18 to 20 cm. There is also chronic hemosiderin staining and discoloration around the lower extremity in general, however in addition to this he also has faint redness extending past the skin tear area, and this is notably warm as well. Is circumferential. Extends to the base of the knee. It goes past the ankle. No subcutaneous crepitus. 9.Neuro: assistant manager II-XII grossly intact. Sensation grossly intact, no focal neurologic deficits. 10.Psych: (AAO) x3. Appropriate mood and affect Course Vital Signs Vital signs: Vital Signs Temperature 36.4 C 09/24/24 02:21 Pulse 60 09/24/24 02:21 Respiratory Rate 18 09/24/24 02:21 Blood Pressure 229/89 H 09/24/24 02:21 Pulse Oximetry 98 09/24/24 02:21 Temperature 36.4 C 09/24/24 02:21 Temperature Source Oral 09/24/24 02:21 Pulse 60 09/24/24 02:21 Respiratory Rate 18 09/24/24 02:21 Blood Pressure 229/89 H 09/24/24 02:21 Pulse Oximetry 98 09/24/24 02:21 Oxygen Delivery Method Room Air 09/24/24 02:21 Oxygen Flow Rate 0 09/24/24 02:21 Pain Level 8 09/24/24 02:21 Medical Decision Making 58-year-old male with a past medical history of aortic valve replacement secondary to aortic valve endocarditis, COPD, chronic venous insufficiency, history of blood clot, diabetes mellitus, hypertension, previous cocaine use in the past, current tobacco user, previous stroke without deficits, presents today for evaluation of right leg redness. Patient states that over the last few days he developed some bubbles on his right lower leg, and eventually they all scraped off. He is not certain as to the exact timing of when this happened male. Over the last 24 to 48 hours the area that had been sloughed off has subsequently become notably red tender warm and inflamed. He contacted EMS this morning at 2 AM to be transition to the ED. He admits to feeling chills, fatigue, and feeling generally unwell. He denies any chest pain or shortness of breath. He denies any trauma to that area. No other complaints at this time. Physical exam demonstrates a right lower extremity with a notable area of superficial skin that was avulsed or desquamated. Please see attached image. Under that is a notably red raw and warm area. Dimensions are in the shape of a vase, and width is around 10 to 12 cm and length is around 18 to 20 cm. There is also chronic hemosiderin staining and discoloration around the lower extremity in general, however in addition to this he also has faint redness extending past the skin tear area, and this is notably warm as well. Is circumferential. Extends to the base of the knee. It goes past the ankle. Concern for notable cellulitis in that area. Patient is have afebrile, nontachycardic. He is hypertensive. Will get blood cultures, treat with clindamycin, monitor closely and reassess. No evidence to suggest necrotizing fasciitis at this time. I do suspect the patient may require admission due to the fulminant nature of the skin breakdown and cellulitis. 3:58 AM Laboratory workup returned surprisingly reassuring, with no white count or bandemia. Procalcitonin is normal as well. Lactate normal. Electrolytes stable. I did bring up potential outpatient therapy, and unfortunately the patient's significant other (who is his ex-) is not at home and will be so for the next 72 hours. He is currently alone at home. I do not feel that he has the personal capabilities to perform wound care himself, and is certainly at risk for worsening medical disease process. I do feel it would be beneficial to admit him for establishment of wound care, and mobilization of outpatient resources prior to discharge. Discussed the case with the hospitalist Dr. Palomares, he agrees with the assessment and plan. I have extensively reviewed the treatment plan with the patient. I have addressed all patient concerns at this time. I have also discussed the plan with the admitting physician and they agree with the current assessment and plan and have agreed to assume responsibility for the patient. All parties demonstrate verbal understanding and agreement with our assessment and plan at this time. The documentation in this chart was dictated using [employer] dictation software. Please excuse any dictation errors. Prior to admission patient's blood pressure did consistently climb, with a max of 250/95. Heart rate was in the 30s to 40s which is near his baseline. We will avoid labetalol out of concern for potential cardiac cross-reactivity. We will give clonidine patch to help with the blood pressure in the meantime. Critical Care Time Critical Care Time Critical Care Time: Yes Total Critical Care Time: 25 Attestation: Upon my evaluation, this patient had a high probability of imminent or life-threatening deterioration, which required my direct attention, intervention, and personal management. I have personally provided 25 minutes of critical care time exclusive of time spent on separately billable procedures. Time includes review of laboratory data, radiology results, discussion with consultants, and monitoring for potential decompensation. Interventions were performed as documented. [facility] All Active Problems (Updated 09/24/24 @ 04:01 by Rohan Liao DO) Hypertensive emergency (Acute) Hypertension (Chronic) Cellulitis of leg, right (Acute) Right middle lobe pneumonia (Acute) Hypoxia (Acute) Sepsis (Acute) Leukocytosis (Acute) Mild shortness of breath (Acute) Chest pain (Acute) Hypoxia (Acute) Recurrent apnea (Acute) Hypertensive emergency (Acute) Bilateral edema of lower extremity (Acute) Dyspnea (Acute) Right rotator cuff tear (Acute) Abnormal CT scan, kidney (Acute) Anxiety (Chronic) Medical non-compliance (Acute) Aragon esophagus (Acute) Opiate dependence (Chronic) managed on suboxone Medical History Obstructive sleep apnea Chronic venous insufficiency COPD (chronic obstructive pulmonary disease) Diabetic neuropathy Hx of deep venous thrombosis on Coumadin Diabetes mellitus Hypertension Cocaine abuse 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 S/P percutaneous endoscopic gastrostomy (PEG) tube placement History of ankle surgery S/P spinal surgery Family History Father No problems noted. Mother COPD (chronic obstructive pulmonary disease) Hypertension Diabetes Heart disease Sister Stroke Social History Smoking/Tobacco Use Status: Current every day Tobacco Type: cigarettes Years smoked: 44 Tobacco: How many years used: 40 Smoking risk assessment performed?: Yes Alcohol Intake: former Drug use: Daily Substance use type: marijuana and crack/cocaine Caregiver/Support person: Yes Household members: friend(s) Housing: house Number of Children: 0 number of grandchildren: 1 current occupation: Disabled Pets and animals: Yes Pets and animals: cat(s) Current gender identity: male What type of physical activity do you participate in: none Do you feel safe at home: Yes Do you feel safe in your relationship?: Yes Additional Social history: Lives with ex- Vanessa, who is his caregiver. Lives in private home.
--- NOTE | 2024-09-24 02:30 | RT.EKG_ITS ---
APPROVED REPORT Exam: Resting ECG Reason for Exam: bradycardia Patient Location: E HR:40 bpm ECG Measurements Heart Rate 40 AXIS NH 170 P 44 QRSd 165 QRS 63 QT 513 T 88 QTc 421 Conclusion Sinus bradycardia...rate< 60 Right bundle branch block...QRSd>120, terminal axis(90,270) I have reviewed and interpreted ECG and agree with software generated interpretation.
[2024-09-24 03:10] LABS: Abs Immature Grans 0.02 10^3/uL (0.0-0.06); HCT 43.9 % (40.0-50.0); HGB 14.2 g/dL (13.5-17.5); Immature Grans % 0.2 %; MCH 26.6 pg (27.0-33.0); MCHC 32.3 % (32.0-36.0); MCV 82 fL (80-95); MPV 9.2 fL (8.0-11.0); Platelet Count 323 10^3/uL (130-400); RBC 5.34 10^6/uL (4.36-5.78); RDW 15.6 % (11.8-14.1); RDW-SD 46.8 fL; WBC 9.89 10^3/uL (4.4-10.8)
[2024-09-24] MEDS: CLINDAMYCIN 600 MG/50 ML BAG 100 MG IVPB ×5 (03:14→22:34)
[2024-09-24 03:28] LABS: Magnesium 2.0 mg/dL (1.8-2.4)
[2024-09-24 03:31] LABS: ALT 16 U/L (16-63); AST 11 U/L (15-37); Albumin 3.8 g/dL (3.4-5.0); Alkaline Phosphatase 83 U/L (46-116); Anion Gap 8.1 mmol/L (3-11); BUN 22 mg/dL (7-18); Bilirubin, Total 0.6 mg/dL (0.2-1.0); CO2 27.9 mmol/L (21.0-32.0); Calcium 9.4 mg/dL (8.5-10.1); Chloride 104 mmol/L (98-107); Estimated GFR 70.10 (mL/min/1.73m2); Glucose 128 mg/dL (74-106); Potassium 3.9 mmol/L (3.5-5.1); Sodium 140 mmol/L (136-145); Total Protein 7.9 g/dL (6.4-8.2)
[2024-09-24 03:41] LABS: Procalcitonin < 0.10 ng/mL
--- NOTE | 2024-09-24 04:16 | W.PM.HP.N ---
Date of service: 09/24/24 Time of Service: 04:16 Assessment and Plan Assessment and plan (1) Cellulitis of leg, right: Status: Acute Assessment and plan: Pt does have documented history of pcn allergy. Will c/w clindamycin started in the ed but will also add probiotic Wounc care consult placed as well (2) Hypertension: Status: Chronic Assessment and plan: PT with significant elevations in his bp. Will restart home meds and pt was given labetalol in the ED. I do have some concern for non-compliance (3) Opiate dependence: Status: Chronic Assessment and plan: on suboxone, will continue (4) Endocarditis: Assessment and plan: resolved, pt does not have PE c/w mechanical valve and is not on coumadin leading me to believe that he has a biological valve (5) Chronic venous insufficiency: Assessment and plan: noted (6) Diabetes mellitus: Assessment and plan: Not on any home meds that I can see for DM. Will check a1c History of Present Illness History of Present Illness Chief Complaint: RLE pain Narrative: This is a 58-year-old gentleman with multiple medical problems including history of intravenous drug use, congestive heart failure, aortic valve replacement of unknown type, endocarditis, history of DVT, diabetes, hypertension and tobacco abuse who presents with right lower extremity swelling and pain over the last few days. Patient came into the ED for evaluation and was noted to have what appeared to be a cellulitis that was worsening. The patient does have underlying venous stasis changes but there appeared to be at least some cellulitic changes. Patient did have some sloughing on his right bruno over the last 24 hours. Review of Systems All systems reviewed & are unremarkable except as noted in HPI and below PFSH All Active Problems (Updated 09/24/24 @ 04:01 by Rohan Liao DO) Hypertensive emergency (Acute) Hypertension (Chronic) Cellulitis of leg, right (Acute) Right middle lobe pneumonia (Acute) Hypoxia (Acute) Sepsis (Acute) Leukocytosis (Acute) Mild shortness of breath (Acute) Chest pain (Acute) Hypoxia (Acute) Recurrent apnea (Acute) Hypertensive emergency (Acute) Bilateral edema of lower extremity (Acute) Dyspnea (Acute) Right rotator cuff tear (Acute) Abnormal CT scan, kidney (Acute) Anxiety (Chronic) Medical non-compliance (Acute) Aragon esophagus (Acute) Opiate dependence (Chronic) managed on suboxone Medical History Obstructive sleep apnea Chronic venous insufficiency COPD (chronic obstructive pulmonary disease) Diabetic neuropathy Hx of deep venous thrombosis on Coumadin Diabetes mellitus Hypertension Cocaine abuse 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 S/P percutaneous endoscopic gastrostomy (PEG) tube placement History of ankle surgery S/P spinal surgery Family History Father No problems noted. Mother COPD (chronic obstructive pulmonary disease) Hypertension Diabetes Heart disease Sister Stroke Social History Smoking/Tobacco Use Status: Current every day Tobacco Type: cigarettes Years smoked: 44 Tobacco: How many years used: 40 Smoking risk assessment performed?: Yes Alcohol Intake: former Drug use: Daily Substance use type: marijuana and crack/cocaine Caregiver/Support person: Yes Household members: friend(s) Housing: house Number of Children: 0 number of grandchildren: 1 current occupation: Disabled Pets and animals: Yes Pets and animals: cat(s) Current gender identity: male What type of physical activity do you participate in: none Do you feel safe at home: Yes Do you feel safe in your relationship?: Yes Additional Social history: Lives with ex- Vanessa, who is his caregiver. Lives in private home. Meds Allergies and Home Medications Allergies Allergy/AdvReac Type Severity Reaction Status Date / Time Penicillins AdvReac Severe Vomiting Verified 09/24/24 02:29 hydrocodone AdvReac Intermediate vomiting Verified 09/24/24 02:29 Home Medications ?Medication ?Instructions ?Recorded ?Confirmed ?Type esomeprazole magnesium 40 mg 40 mg PO DAILY 05/05/20 09/24/24 History capsule,delayed release (Nexium) aspirin 81 mg tablet 81 mg PO DAILY 08/03/20 09/24/24 History duloxetine 30 mg capsule,delayed 30 mg PO BID 08/03/20 09/24/24 History release acetaminophen 325 mg tablet 1,000 mg PO Q6H PRN 09/27/20 09/24/24 History (Tylenol) buprenorphine 4 mg-naloxone 1 mg 2 film sublingual DAILY 09/28/20 09/24/24 History sublingual film (Suboxone) albuterol sulfate 90 mcg/actuation 2 inh inhalation Q6H PRN 04/12/22 09/24/24 History aerosol inhaler cyanocobalamin (vitamin B-12) 1,000 mcg PO DAILY 03/06/23 09/24/24 History 1,000 mcg tablet (Vitamin B-12) amlodipine 2.5 mg tablet 2.5 mg PO DAILY 09/30/23 09/24/24 History gabapentin 600 mg tablet 600 mg PO TID 09/30/23 09/24/24 History beclomethasone dipropionate 80 1 inh inhalation BID PRN 12/27/23 09/24/24 History mcg/actuation HFA breath activated aerosol (Qvar RediHaler) furosemide 40 mg tablet (Lasix) 40 mg PO DAILY #0 tabs 12/29/23 09/24/24 Rx Lactobacillus acidophilus 500 500 mmu cells PO TID #30 caps 02/09/24 09/24/24 Rx million cell capsule spironolactone 25 mg tablet 25 mg PO DAILY #30 tabs 04/26/24 09/24/24 Rx nystatin 100,000 unit/mL oral 100,000 unit PO DAILY #60 mL 07/03/24 09/24/24 Rx suspension lisinopril 40 mg tablet 40 mg PO DAILY 07/07/24 09/24/24 History Exam Narrative Exam Narrative: HEENT-normocephalic atraumatic mucous membranes moist Neck-no lymphadenopathy no JVD no thyromegaly Cardiovascular-regular rate rhythm no murmurs gallops Lungs-clear to auscultation bilaterally good air exchange Abdomen-soft nontender nondistended Extremities right lower extremity with a red beefy region on his bruno as well as venous stasis changes. There does appear to be some erythema that is outlined as well as some edema. Neurologic-cranial nerves II through XII intact as tested Psych-he is alert he is oriented x 3 Results Labs 09/24/24 03:00 09/24/24 03:00 Labs: Laboratory Results - last 24 hr 09/24/24 03:00 WBC 9.89 RBC 5.34 Hgb 14.2 Hct 43.9 MCV 82 MCH 26.6 L MCHC 32.3 RDW 15.6 H Plt Count 323 MPV 9.2 Immature Gran % 0.2 Neutrophils % 77.0 Lymphocytes % 13.8 Monocytes % 7.6 Eosinophils % 0.9 Basophils % 0.5 Nucleated RBC % 0.0 Absolute Neutrophils 7.62 H Absolute Lymphocytes 1.36 Absolute Monocytes 0.75 Absolute Eosinophils 0.09 Absolute Basophils 0.05 VBG Lactate 1.3 Sodium 140 Potassium 3.9 Chloride 104 Carbon Dioxide 27.9 Anion Gap 8.1 BUN 22 H Creatinine 1.2 Est GFR (CKD-EPI 2020) 70.10 Glucose 128 H Calcium 9.4 Magnesium 2.0 Total Bilirubin 0.6 AST 11 L ALT 16 Alkaline Phosphatase 83 Total Protein 7.9 Albumin 3.8 Procalcitonin < 0.10 Last Vital Signs Temp 36.4 C 09/24/24 02:21 Pulse 41 L 09/24/24 03:31 Resp 10 L 09/24/24 03:31 BP 174/95 H 09/24/24 03:31 Pulse Ox 97 09/24/24 03:31 Time Spent Time spent with Patient: 40-54 minutes Time was spent: preparing to see the patient(eg.review tests), obtaining and/or reviewing separately otained hiistory, ordering medications,tests, procedures, referring, communicating with other health critical care unit nurse, indepentently interpreting results, counseling the patient and care coordination
[2024-09-24] MEDS: cloNIDine 0.1 MG PATCH TD (04:44)
--- NOTE | 2024-09-24 04:45 | W.PC.ACHO ---
Registration Status: REG ER Primary Language: Preferred Language: [place] ED Information & Data Chief Complaint Cellulitis 09/24/24 02:32 Triage Note PT has blistering and 09/24/24 02:21 redness on R bruno Medical / Surgical History (Last Reviewed 07/11/24 @ 09:00 by Leonor Be MD) Obstructive sleep apnea Chronic venous insufficiency COPD (chronic obstructive pulmonary disease) Diabetic neuropathy Hx of deep venous thrombosis Diabetes mellitus Hypertension Cocaine abuse Cerebral septic emboli GI bleed Osteomyelitis of left fibula Endocarditis Depression MSSA (methicillin susceptible Staphylococcus aureus) septicemia (Last Reviewed 07/11/24 @ 09:00 by Leonor Be MD) S/P endoscopy H/O aortic valve replacement S/P hardware removal S/P percutaneous endoscopic gastrostomy (PEG) tube placement History of ankle surgery S/P spinal surgery Most Recent Vital Signs Temperature 36.4 C 09/24/24 02:21 Temperature Source Oral 09/24/24 02:21 Pulse 41 L 09/24/24 03:31 Pulse 41 L 09/24/24 03:31 Respiratory Rate 10 L 09/24/24 03:31 Blood Pressure 174/95 H 09/24/24 03:31 Blood Pressure Mean 125 09/24/24 03:31 Pulse Oximetry 97 09/24/24 03:31 Oxygen Delivery Method Room Air 09/24/24 02:27 Oxygen Flow Rate 0 09/24/24 02:21 Pain Level 8 09/24/24 02:27 Allergies Penicillins Adverse Reaction (Severe, Verified 09/24/24 02:29) Vomiting hydrocodone Adverse Reaction (Intermediate, Verified 09/24/24 02:29) vomiting IV IV Catheter Type [Left Upper Peripheral IV arm] IV Catheter Gauge [Left Upper 18 arm] Diet Orders Category Date Time Status Regular/Normal [DIET] Nutrition 09/24/24 Breakfast Active Diagnostics 09/24/24 09/24/24 09/24/24 Range/Units 05:35 04:27 03:00 WBC 9.89 (4.4-10.8) 10^3/uL RBC 5.34 (4.36-5.78) 10^6/uL Hgb 14.2 (13.5-17.5) g/dL Hct 43.9 (40.0-50.0) % MCV 82 (80-95) fL MCH 26.6 L (27.0-33.0) pg MCHC 32.3 (32.0-36.0) % RDW 15.6 H (11.8-14.1) % Plt Count 323 (130-400) 10^3/uL MPV 9.2 (8.0-11.0) fL Immature Gran % 0.2 % Neutrophils % 77.0 % Lymphocytes % 13.8 % Monocytes % 7.6 % Eosinophils % 0.9 % Basophils % 0.5 % Nucleated RBC % 0.0 (0.0-0.3) % Absolute Neutrophils 7.62 H (1.2-6.7) 10^3/uL Absolute Lymphocytes 1.36 (1.2-3.4) 10^3/uL Absolute Monocytes 0.75 (0.1-0.8) 10^3/uL Absolute Eosinophils 0.09 (0.0-0.7) 10^3/uL Absolute Basophils 0.05 (0.0-0.2) 10^3/uL VBG Lactate 1.3 (<or=2.0) mmol/L Sodium Pending 140 (136-145) mmol/L Potassium Pending 3.9 (3.5-5.1) mmol/L Chloride Pending 104 (98-107) mmol/L Carbon Dioxide Pending 27.9 (21.0-32.0) mmol/L Anion Gap Pending 8.1 (3-11) mmol/L BUN Pending 22 H (7-18) mg/dL Creatinine Pending 1.2 (0.70-1.30) mg/dL Est GFR (CKD-EPI 2020) Pending 70.10 (mL/min/1.73m2) Glucose Pending 128 H (74-106) mg/dL Hemoglobin A1c Pending Calcium Pending 9.4 (8.5-10.1) mg/dL Magnesium 2.0 (1.8-2.4) mg/dL Total Bilirubin Pending 0.6 (0.2-1.0) mg/dL AST Pending 11 L (15-37) U/L ALT Pending 16 (16-63) U/L Alkaline Phosphatase Pending 83 (46-116) U/L Total Protein Pending 7.9 (6.4-8.2) g/dL Albumin Pending 3.8 (3.4-5.0) g/dL Procalcitonin < 0.10 ng/mL 09/24/24 03:18 Blood Culture - Pending Blood 09/24/24 03:00 Blood Culture - Pending Blood Intake and Output - 24 Hour Total 09/24/24 02:17 thru 09/24/24 03:44 Intake Total 50 Balance 50 Weight 81.3 kg Intake: IV 50 Falls Risk Assessment History of Falls No History 09/24/24 02:27 Contributing Factors No Factors 09/24/24 02:27 Ambulatory Aids Independent 09/24/24 02:27 Tubes/Lines None 09/24/24 02:27 Gait Evaluation No gait disturbance 09/24/24 02:27 Cognition No cognitive impairment 09/24/24 02:27 Fall Total Score 0 09/24/24 02:27 Level of Risk Standard/Low Risk 09/24/24 02:27 Problems (Last Reviewed 07/11/24 @ 09:00 by Leonor Be MD) Hypertension (Chronic) Cellulitis of leg, right (Acute) Opiate dependence (Chronic) v v v v v v v v v Sending and/or Receiving Nurses: Please use comment section below to note any information pertinent to the patient hand-off not included above. Information / Comments: David brought from home to ED, admit to med/surg Rm # [id number]. Large blistered area started 2 days ago to rt lower leg, Dx cellulitis. Blistered and broke before arival. Pt feeling generally unwell. Bradycardic and hypertensive, awaiting Clonadine patch from electrician apprentice powerhouse to lower BP. Hx of CVA, rt sided. Pt. uses walker at baseline. Received Clindamycin in ED. Report received from:Called to get report [id number]. Spoke with GEORGIE Rodriguez.
[2024-09-24 05:02] LABS: Cannabinoids THC Positive (Negative); METHADONE URINE SCREEN Negative (Negative)
[2024-09-24] MEDS: Acetaminophen 500 MG TAB 1000 MG PO (06:03)
[2024-09-24 07:33] LABS: Hemoglobin A1C 6.2 % (<5.7)
[2024-09-24 07:34] LABS: ALT 13 U/L (16-63); AST 11 U/L (15-37); Albumin 3.6 g/dL (3.4-5.0); Alkaline Phosphatase 77 U/L (46-116); Anion Gap 8.6 mmol/L (3-11); BUN 21 mg/dL (7-18); Bilirubin, Total 0.6 mg/dL (0.2-1.0); CO2 25.4 mmol/L (21.0-32.0); Calcium 9.3 mg/dL (8.5-10.1); Chloride 105 mmol/L (98-107); Estimated GFR 87.24 (mL/min/1.73m2); Glucose 129 mg/dL (74-106); Potassium 4.1 mmol/L (3.5-5.1); Sodium 139 mmol/L (136-145); Total Protein 7.7 g/dL (6.4-8.2)
[2024-09-24] MEDS: Lactobacillus Acidophilus CAP 1 CAP PO ×3 (07:56→22:32)
[2024-09-24] MEDS: Cyanocobalamin 500 MCG TAB 1000 MCG PO (07:56)
[2024-09-24] MEDS: Esomeprazole 40 MG CAPCR PO (07:56)
[2024-09-24] MEDS: Aspirin E.C. 81 MG TABEC PO (07:57)
[2024-09-24] MEDS: Furosemide 40 MG TAB PO (07:57)
[2024-09-24] MEDS: Buprenorphine/Naloxone 4 mg/1 mg FILM 2 EACH SL (07:57)
[2024-09-24] MEDS: Spironolactone 25 MG TAB PO (07:57)
[2024-09-24] MEDS: Gabapentin 600 MG TAB PO ×3 (07:57→22:32)
[2024-09-24] MEDS: Lisinopril 20 MG TAB 40 MG PO (07:57)
[2024-09-24] MEDS: DULoxetine 30 MG CAP PO ×2 (07:57→22:32)
[2024-09-24] MEDS: amLODIPine 2.5 MG TAB PO (07:57)
[2024-09-24] MEDS: Normal Saline Flush 10 ML SYR IVP ×4 (07:58→22:34)
--- NOTE | 2024-09-24 08:07 | PDOC.CMIN ---
Date of service: 09/24/24 Time of Service: 12:03 Care Management Initial Assmt Initial Assessment Reason for Hospitalization: Cellulitis Functional Status/Living Situation Patient Presentation: Mio was sitting up in the bed and sleeping when CM met with him. Mio presented to the ED for evaluation of right leg redness. He easily awoke to verbal stimulation. Upon awakening, he shared he is lives in [place] with Arline, who serves as his primary caregiver and assists him with ADL's. He states he currently does not revieve any additional home or community-based support and does not feel this is necessary at present. Per chart, Mio receives CFC. CM discussed CFC services with Mio, he denies having this service. CM contacted [facility] and is awaiting a call back. CM will continue to follow. Town of Residence: [place] Resides with: Spouse (Arline) Significant Other/Family: Out of area (States there are no other family members ) Caregiver/Guardian: /caregiver, Arline Vanegas Employment Status: Unemployed Instrumental Activities of Daily Living (ADLs): Requires support Medications Medication Management: No Issues/Barriers identified Physical Functioning/Mobility Assistive Device: FWW Advance Directives Advance Directives: Do you have an Advance Directive: Y 10/10/19, 10:02 AD On File at [facility]: N 18/13, 08:23 Date Asked 07/11/24 07/11/24, 08:45 AD Date Reviewed COLST On File at [facility] COLST Date Scanned Code Status Resuscitation Status Full Code Portal Pt does not currently have a portal and education provided: Yes Insurance Coverage/Financial Issues Insurance: BENEDICT- Per chart, [facility] highest needs. Care Team Visit Care Team Role Provider Type Kristin Mac APRN MD [facility] STAFF PHYSICIAN Evon Howard MD Primary Care Provider [facility] STAFF PHYSICIAN Rohan Liao DO Emergency Provider [facility] STAFF PHYSICIAN Arya Palomares MD Admit Provider [facility] STAFF PHYSICIAN Attending Provider Discharge Potential Discharge Needs: PCP F/U Appt Anticipated Barriers to Discharge: None Identified Patient/Family Education Needs: Review discharge instructions, discuss Ask Me Three Transportation: Private vehicle Plan: Anticipate Mio will return home once medically cleared. His caregiver, Arline, will drive him home via private vehicle. He will follow up with his PCP and discharge plan of care. CM will continue to follow. Social Determinants of Health Screening Will the Patient Participate in the Screening?: Declined to provide PFSH All Active Problems (Updated 09/24/24 @ 04:01 by Rohan Liao DO) Hypertensive emergency (Acute) Hypertension (Chronic) Cellulitis of leg, right (Acute) Right middle lobe pneumonia (Acute) Hypoxia (Acute) Sepsis (Acute) Leukocytosis (Acute) Mild shortness of breath (Acute) Chest pain (Acute) Hypoxia (Acute) Recurrent apnea (Acute) Hypertensive emergency (Acute) Bilateral edema of lower extremity (Acute) Dyspnea (Acute) Right rotator cuff tear (Acute) Abnormal CT scan, kidney (Acute) Anxiety (Chronic) Medical non-compliance (Acute) Aragon esophagus (Acute) Opiate dependence (Chronic) managed on suboxone Medical History Obstructive sleep apnea Chronic venous insufficiency COPD (chronic obstructive pulmonary disease) Diabetic neuropathy Hx of deep venous thrombosis on Coumadin Diabetes mellitus Hypertension Cocaine abuse 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 S/P percutaneous endoscopic gastrostomy (PEG) tube placement History of ankle surgery S/P spinal surgery Family History Father No problems noted. Mother COPD (chronic obstructive pulmonary disease) Hypertension Diabetes Heart disease Sister Stroke Social History Smoking/Tobacco Use Status: Current every day Tobacco Type: cigarettes Years smoked: 44 Tobacco: How many years used: 40 Smoking risk assessment performed?: Yes Alcohol Intake: former Drug use: Daily Substance use type: marijuana and crack/cocaine Caregiver/Support person: Yes Household members: friend(s) Housing: house Number of Children: 0 number of grandchildren: 1 current occupation: Disabled Pets and animals: Yes Pets and animals: cat(s) Current gender identity: male What type of physical activity do you participate in: none Do you feel safe at home: Yes Do you feel safe in your relationship?: Yes Additional Social history: Lives with ex- Vanessa, who is his caregiver. Lives in private home. Readmission Within the Past 30 Days Yes or No: No
--- NOTE | 2024-09-24 12:55 | W.PM.PROGNOT ---
Date of Service Date of service: 09/24/24 Time of Service: 12:56 Assessment and Plan Assessment and plan (1) Cellulitis of leg, right: Status: Acute Assessment and plan: History of pcn allergy Ongoing clindamycin with probiotic Wound care consult pending Blood Cx negative No leukocytosis on admission Oral antibiotics on d/c status post blood culture findings (2) Hypertension: Status: Chronic Assessment and plan: SBP 200- 250 in the ED labetalol in the ED with SBP 229-250, concerning for compliance D/c clonidine patch from ED Now on PRN oral clonidine in the setting of + UDS for cocaine BP is controlled now (3) Opiate dependence: Status: Chronic Assessment and plan: on home dose suboxone (4) Endocarditis: Assessment and plan: resolved Hx of valve replacement as per echo of 2023 bioprosthetic valve seen -not on coumadin or other anticoagulation medicine (5) Acute kidney injury: Status: Resolved Assessment and plan: Creatinine up to 1.4 from 1.0 IV fluid with LR at 100 cc an hour, history of HFpEF as per echo in 2023 Hold furosemide and avoid nephrotoxic medicines BMP in the morning (6) Nicotine dependence: Status: Acute Assessment and plan: NRT (7) Diabetes mellitus: Assessment and plan: A1C no w 6.2 Blood glucose :144-155- will d/c monitoring BMP in AM (8) Chronic venous insufficiency: Assessment and plan: Hx of mild benefit from compression once skin lesions are healed On Lovenox for DVT prophylaxis Discussed with Dr. Singh Subjective Subjective Patient reports: no new complaints, feels better, tolerating liquids well, voiding w/o difficulty and bowel movement; denies diarrhea, nausea, vomiting, shortness of breath or fever Exam Narrative Exam Narrative: Alert and oriented X3 , no acute distress, no acute neurological deficit but right-sided weakness from previous stroke, clear lungs, S1, S2 regular no murmur, PPP X4, abd is non-distended soft and non-tender, no CVA tendernessno RLE edema but bilateral in discoloration to Calves, dressings to right lower extremity dry skin intact. Objective Last Vital Signs Temp 36.5 C 09/24/24 07:06 Pulse 48 L 09/24/24 07:06 Resp 15 09/24/24 07:06 BP 187/73 H 09/24/24 07:06 Pulse Ox 96 09/24/24 07:06 Laboratory Results - last 24 hr 09/24/24 09/24/24 09/24/24 03:00 04:30 06:55 WBC 9.89 RBC 5.34 Hgb 14.2 Hct 43.9 MCV 82 MCH 26.6 L MCHC 32.3 RDW 15.6 H Plt Count 323 MPV 9.2 Immature Gran % 0.2 Neutrophils % 77.0 Lymphocytes % 13.8 Monocytes % 7.6 Eosinophils % 0.9 Basophils % 0.5 Nucleated RBC % 0.0 Absolute Neutrophils 7.62 H Absolute Lymphocytes 1.36 Absolute Monocytes 0.75 Absolute Eosinophils 0.09 Absolute Basophils 0.05 VBG Lactate 1.3 Sodium 140 139 Potassium 3.9 4.1 Chloride 104 105 Carbon Dioxide 27.9 25.4 Anion Gap 8.1 8.6 BUN 22 H 21 H Creatinine 1.2 1.0 Est GFR (CKD-EPI 2020) 70.10 87.24 Glucose 128 H 129 H Hemoglobin A1c 6.2 H Calcium 9.4 9.3 Magnesium 2.0 Total Bilirubin 0.6 0.6 AST 11 L 11 L ALT 16 13 L Alkaline Phosphatase 83 77 Total Protein 7.9 7.7 Albumin 3.8 3.6 Procalcitonin < 0.10 Urine Opiates Screen Negative Urine Methadone Screen Negative Ur Barbiturates Screen Negative Ur Tricyclics Screen Negative Ur Amphetamines Screen Negative U Benzodiazepines Scrn Negative Urine Cocaine Screen Positive A Ur THC Screen Positive A Time Spent with Patient Time Spent with Patient: >50 minutes Time was spent: preparing to see the patient(eg.review tests), obtaining and/or reviewing separately otained hiistory, ordering medications,tests, procedures, referring, communicating with other health manager critical care unit, indepentently interpreting results, counseling the patient and care coordination
[2024-09-24] MEDS: cloNIDine 0.1 MG TAB PO ×2 (18:45→22:32)
[2024-09-25 07:03] VITALS: BP 167/86; PULSE 72; RESP 17; TEMP 36.6; O2SAT 97
[2024-09-25] MEDS: Buprenorphine/Naloxone 4 mg/1 mg FILM 2 EACH SL (08:14)
[2024-09-25] MEDS: Enoxaparin 40 MG/0.4 ML SYR SC (08:15)
[2024-09-25] MEDS: Spironolactone 25 MG TAB PO (08:16)
[2024-09-25] MEDS: CLINDAMYCIN 600 MG/50 ML BAG 100 MG IVPB ×4 (08:16→21:44)
[2024-09-25] MEDS: Acetaminophen 500 MG TAB 1000 MG PO ×3 (08:17→21:57)
[2024-09-25] MEDS: Furosemide 40 MG TAB PO (08:17)
[2024-09-25] MEDS: Aspirin E.C. 81 MG TABEC PO (08:17)
[2024-09-25] MEDS: DULoxetine 30 MG CAP PO ×2 (08:17→21:43)
[2024-09-25] MEDS: Cyanocobalamin 500 MCG TAB 1000 MCG PO (08:17)
[2024-09-25] MEDS: Lisinopril 20 MG TAB 40 MG PO (08:18)
[2024-09-25] MEDS: Esomeprazole 40 MG CAPCR PO (08:18)
[2024-09-25] MEDS: Lactobacillus Acidophilus CAP 1 CAP PO ×3 (08:18→21:42)
[2024-09-25] MEDS: Gabapentin 600 MG TAB PO ×3 (08:19→21:43)
[2024-09-25] MEDS: cloNIDine 0.1 MG TAB PO ×2 (08:19→13:49)
[2024-09-25] MEDS: amLODIPine 2.5 MG TAB PO (08:19)
[2024-09-25] MEDS: Normal Saline Flush 10 ML SYR IVP ×2 (08:19→21:45)
--- NOTE | 2024-09-25 10:25 | CMPROGNOTE_ITS ---
Date of service: 09/25/24 Time of Service: 14:11 Care Management Progress Note Progress Note Text Progress Note Text: Mio was sitting up and awake in bed when CM met with him today. 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 It is anticipate he will have a wound consult today. Per report, Mio tested positive for Cocaine in an urine drug screen; He is not interested in the head boys golf coach at this time. Mio states he continues to smoke but has decreased his intake and continues to work on quitting. CM will continue to follow. Discharge Potential Discharge Needs: PCP F/U Appt Anticipated Barriers to Discharge: Medical Status Patient/Family Education Needs: Review discharge instructions, discuss Ask Me Three Transportation: Private vehicle Plan: Anticipate Mio will return home once medically cleared. His caregiver, Arline, will drive him home via private vehicle. He will follow up with his PCP and discharge plan of care. CM will continue to follow. Social Determinants of Health Screening Will the Patient Participate in the Screening?: Declined to provide
--- NOTE | 2024-09-25 11:29 | CHAPLAIN ---
Mio was resting in bed when I visited. We have met during his previous admissions. He told me about the extent of the wound on his right leg and how painful it is. He said the nurses will be redoing the bandage today and that usually helps the pain and gives him some reprieve. I'll continue to visit.
[2024-09-25 14:00] VITALS: BP 105/69; PULSE 67; RESP 14; TEMP 36.4; O2SAT 99
[2024-09-25 15:51] LABS: Abs Immature Grans 0.02 10^3/uL (0.0-0.06); HCT 45.9 % (40.0-50.0); HGB 14.8 g/dL (13.5-17.5); Immature Grans % 0.2 %; MCH 26.1 pg (27.0-33.0); MCHC 32.2 % (32.0-36.0); MCV 81 fL (80-95); MPV 9.3 fL (8.0-11.0); Platelet Count 355 10^3/uL (130-400); RBC 5.66 10^6/uL (4.36-5.78); RDW 15.6 % (11.8-14.1); RDW-SD 45.9 fL; WBC 8.28 10^3/uL (4.4-10.8)
[2024-09-25 16:06] LABS: Anion Gap 9.2 mmol/L (3-11); BUN 30 mg/dL (7-18); CO2 26.8 mmol/L (21.0-32.0); Calcium 8.9 mg/dL (8.5-10.1); Chloride 102 mmol/L (98-107); Estimated GFR 58.26 (mL/min/1.73m2); Glucose 96 mg/dL (74-106); Potassium 4.4 mmol/L (3.5-5.1); Sodium 138 mmol/L (136-145)
[2024-09-25 16:51] VITALS: BP 119/80; PULSE 63
[2024-09-25] MEDS: Nicotine 21 MG/24 HR PATCH TD (17:16)
[2024-09-25] MEDS: Lactated Ringers 1,000 ML 100 ML IV (17:17)
[2024-09-25 21:49] VITALS: BP 111/68; PULSE 67; RESP 20; TEMP 36.3; O2SAT 95
[2024-09-26] MEDS: Lactated Ringers 1,000 ML 100 ML IV (04:05)
[2024-09-26] MEDS: Acetaminophen 500 MG TAB 1000 MG PO ×2 (05:53→13:28)
[2024-09-26 07:15] VITALS: BP 149/96; PULSE 63; RESP 16; TEMP 36.2; O2SAT 97
[2024-09-26] MEDS: Buprenorphine/Naloxone 4 mg/1 mg FILM 2 EACH SL (09:01)
[2024-09-26] MEDS: Enoxaparin 40 MG/0.4 ML SYR SC (09:04)
[2024-09-26] MEDS: Nicotine 21 MG/24 HR PATCH TD (09:04)
[2024-09-26] MEDS: CLINDAMYCIN 600 MG/50 ML BAG 100 MG IVPB ×2 (09:05→13:29)
[2024-09-26] MEDS: Gabapentin 600 MG TAB PO ×2 (09:06→13:28)
[2024-09-26] MEDS: Normal Saline Flush 10 ML SYR IVP (09:06)
[2024-09-26] MEDS: Cyanocobalamin 500 MCG TAB 1000 MCG PO (09:06)
[2024-09-26] MEDS: Esomeprazole 40 MG CAPCR PO (09:06)
[2024-09-26] MEDS: Lisinopril 20 MG TAB 40 MG PO (09:06)
[2024-09-26] MEDS: amLODIPine 2.5 MG TAB PO (09:07)
[2024-09-26] MEDS: Aspirin E.C. 81 MG TABEC PO (09:07)
[2024-09-26] MEDS: Spironolactone 25 MG TAB PO (09:07)
[2024-09-26] MEDS: DULoxetine 30 MG CAP PO (09:07)
[2024-09-26] MEDS: Lactobacillus Acidophilus CAP 1 CAP PO ×2 (09:07→13:28)
[2024-09-26 09:23] VITALS: BP 176/85
--- NOTE | 2024-09-26 11:28 | PT.INIE ---
PT Notes Visit Reasons: cellulitis Physical Therapy Inpatient Initial Evaluation Date: 09/26/2024 Referring Doctor: Kristin Mac NP PT Orders: PT CONSULT: Safety Consult for D/C. Precautions: Fall. Standard. Activity as tolerated. Patient Profile/Admitting Diagnosis: Moi is a 58-year-old male with complex co-morbidities below who is admitted for management of R leg cellulitis, HTN, opiate dependence, endocarditis, CVI, Dm, and ERICK with referral for PT for safe discharge recommendations. PMHX: All Active Problems (Updated 09/24/24 @ 04:01 by Rohan Liao DO) Hypertensive emergency (Acute) Hypertension (Chronic) Cellulitis of leg, right (Acute) Right middle lobe pneumonia (Acute) Hypoxia (Acute) Sepsis (Acute) Leukocytosis (Acute) Mild shortness of breath (Acute) Chest pain (Acute) Hypoxia (Acute) Recurrent apnea (Acute) Hypertensive emergency (Acute) Bilateral edema of lower extremity (Acute) Dyspnea (Acute) Right rotator cuff tear (Acute) Abnormal CT scan, kidney (Acute) Anxiety (Chronic) Medical non-compliance (Acute) Aragon esophagus (Acute) Opiate dependence (Chronic) managed on suboxone Medical History Obstructive sleep apnea Chronic venous insufficiency COPD (chronic obstructive pulmonary disease) Diabetic neuropathy Hx of deep venous thrombosis on Coumadin Diabetes mellitus Hypertension Cocaine abuse 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 S/P percutaneous endoscopic gastrostomy (PEG) tube placement History of ankle surgery S/P spinal surgery Social History/Home Situation: Patient lives with in a mobile home in [place], [place] with 4 steps to enter with a rail on the right side going up. Has a ramp that he uses to get in and out of the house. Patient came out of previous incarceration in 2007. works full-time and, along with daughter Xochitl, has provided needed assistance with patient's ADL performance at home. Equipment Owned/DME: Hospital bed, FWW, bedside commode, shower chair, hand-held shower, grab bars, regular wheelchair Subjective: Motivated and very agreeable to work with PT. Dependent positioning of B LE adds to patient's pain. Objective: General Observation: Resting in bed. Telemetry monitoring in place. IV in left UE. Wound dressing to B legs . Mental Status: Alert and oriented x 4 Pain Reported 4-5/10 pain in B legs with weight bearing ROM: Right Lower Extremity: Hip flexion WFL. Hip abduction WFL. Knee flexion WFL. Ankle dorsiflexion from fully plantarflexed position to neutral only. Ankle plantarflexion WFL. Left Lower Extremity: Hip flexion WFL. Hip abduction WFL. Knee flexion WFL. Ankle dorsiflexionfrom fully plantarflexed position to neutral only. Ankle plantarflexion WFL. Strength: Right Lower Extremity: Hip flexors 4/5. Hip abductors 4/5. Knee flexors 4-/5. Knee extensors 4-/5. Ankle dorsiflexors 3/5. Ankle plantarflexors 3/5. Left Lower Extremity:Hip flexors 4/5. Hip abductors 4/5. Knee flexors 4-/5. Knee extensors 4-/5. Ankle dorsiflexors 3/5. Ankle plantarflexors 3/5. Sensation: Intact as to pain and pressure on bilateral lower extremities. Bed Mobility/Transfers: Minimal cueing provided for use of B hands as needed for support, movement sequence, AD management, and posture to reduce fall risk and minimize pain report Supine to sit stand by assist Sit to stand stand by assist with FWW Stand to sit stand by assist with FWW Bed to chair stand by assist with FWW Chair to bed stand by assist with FWW Gait: Patient tolerated level surface ambulation of 150 feet in the hallway around the elevator area using FWW with step-to gait pattern with asymmetric step length. Stand by assist only with minimal cueing for posture, gait pattern and Ad management to off load hurting B legs. Pain in B legs at 5/10 which subsided with elevation of B legs in bed after activity. He denied headache, chest pain, dizziness throughout gait activity. Balance: Static Sitting: Normal Dynamic Sitting: Normal Static Standing: Fair Dynamic Standing: Fair Special Tests: Mobility Limitations Standardized Measure [facility] AM-PAC 6 clicks Basic Mobility Inpatient Short Form: Raw Score: 21 CMS Score: 29% deficit Informed Consent/Education: Patient instructed in purpose of PT consult and plan of care. Assessment: Patient performed safely using front-wheeled walker that also helped with off loading weight and minized pain in B legs. Patient presented with clinical signs and symptoms consistent with current/admitting diagnoses that have resulted to mobility limitations, gait instability, generalized weakness, and impairment of motor control as demonstrated by the following impairment level findings: 1. Decreased strength to B leg and ankle major muscle group strength 2. Impaired standing balance 3. Impaired activity tolerance 4. Pain in B legs R>>L Impairments are contributing to the following functional limitations: 1. Inability to safely ambulate without assistive device and physical assistance 2. Increase completion time for mobility ADL performance 3. Increased fall risk 4. Inability to negotiate steps alone safely Patient is assessed as a 73549 moderate complexity complexity based on the following: History: 58-year-old male with past medical history, impairment level findings, functional limitations, and a [facility] CMS deficit score of 51% as indicated above Examination: Demonstrable impairment in strength, balance, and range of motion with underlying impairments and functional limitations as documented above Presentation: Evolving Decision Makin moderate complexity Goals:1-2 weeks 1. Supine-Sit independent 2. Sit-Supine independent 3. Sit-Stand independent with FWW 4. Stand-Sit independent with FWW 5. Bed-Chair independent with FWW 6. Chair-Bed independent with FWW 7. Supervision gait on level surface with use of least restrictive device for at least 150 feet without report of pain nor dyspnea 8. Supervision with home exercise program 9. Good static and dynamic standing balance/tolerance Plan of Care/Treatment Plan: 1-2x/day, 7 days/week x 1 week. Plan of care has been reviewed with the MODEL MAKER PLASTER providing the service under Physical Therapy direction. Initiate Physical Therapy intervention for strengthening, bed mobility, transfers, gait, stairs, balance training, use of assistive device. DISCHARGE RECOMMENDATIONS: PT TREATMENT CODE/TIME: 87350 x 26 minutes for 1 unit (11:28-11:54). Thank you very much for the opportunity to participate in the care of this patient. Zunilda Zapata PT, DPT, CLT [facility] [place], [place]
[2024-09-26 13:26] VITALS: BP 136/81; PULSE 76; RESP 16; TEMP 36.5
--- NOTE | 2024-09-26 14:02 | PDOC.CMDIS ---
Date of service: 09/26/24 Time of Service: 14:02 LACE Index Scoring Tool Questions: Length of Stay (in days): 2 Was the patient admitted via the E.D.?: Yes E.D. Visits: 10 Answers: Total Score: 9 Risk of Readmission: Low Risk Care Management Discharge Plan Reason for Hospitalization: cellulitis Discharge Plan: Mio will return home today with new PT/RN. His caregiver, Arline, will drive him home via private vehicle. He will follow up with his PCP and discharge plan of care. Patient/Family Education Needs: Review discharge instructions, activity, limitations, and plan of care. Discuss ask me three. Services Needed at Discharge: Home Health Care Services
--- NOTE | 2024-09-26 14:32 | PT.INTREAT ---
PT Notes Visit Reasons: cellulitis Date: 09/26/24 PRECAUTIONS: Standard, Fall, Activity as tolerated. SUBJECTIVE: Pt in bed when approached for therapy this afternoon, pt is having LLE dressing changed, agreed to participating with therapy after procedure is done. OBJECTIVE: ? Antibiotics on IV line LUE, dressing change, waiting for physician to check pt wound ? VITALS: Monitored by nursing ? Therapeutic Exercises 52213: Direct one-on-one instruction in therapeutic exercises to develop strength, endurance, range of motion and flexibility. Exercises Access Code: [email or web address] URL: [email or web address] Date: 09/26/2024 Prepared by: Carlos Zapata Exercises - Supine Quadricep Sets - 1 x daily - 7 x weekly - 1 sets - 10 reps - Gluteal Sets - 1 x daily - 7 x weekly - 1 sets - 10 reps - Supine Active Ankle Pumps - 1 x daily - 7 x weekly - 1 sets - 10 reps - Hip Flexion - 1 x daily - 7 x weekly - 1 sets - 10 reps - Supine Pelvic Tilt with Straight Leg Raise - 1 x daily - 7 x weekly - 1 sets - 10 reps - Hooklying Single Knee to Chest Stretch - 1 x daily - 7 x weekly - 1 sets - 10 reps - Supine Double Knee to Chest - 1 x daily - 7 x weekly - 1 sets - 10 reps - Supine Bridge with Pelvic Floor Contraction - 1 x daily - 7 x weekly - 1 sets - 10 reps Provided skilled instruction in proper exercise performance Provided skilled manual cues to facilitate proper muscle recruitment and/or form: ASSESSMENT:?Pt restricted to bed level activity due to antibiotics and waitng for physician to check his LLE wounds, will try to walk next session as per pt availability. PLAN: Continue with balance training, global strengthening and general conditioning for improved safety, mobility and activity tolerance until pt is ready for DC. TREATMENT CODE/TIME: [id number] 20mins (1:40-2:00pm)
--- NOTE | 2024-09-26 17:27 | W.PM.DS.N ---
Date of service: 09/26/24 Time of Service: 17:27 DS: Diagnosis Discharge Diagnosis (1) Cellulitis of leg, right: Status: Acute (2) Hypertension: Status: Chronic (3) Opiate dependence: Status: Chronic (4) Endocarditis: (5) Acute kidney injury: Status: Resolved (6) Nicotine dependence: Status: Acute (7) Diabetes mellitus: (8) Chronic venous insufficiency: Discharge Plan Disposition Patient Disposition: Home W/Home Health Services Condition: Improving Discharge Details Reason For Visit: cellulitis Admit Date/Time: 09/24/24 04:10 Admit Provider: Arya Palomares Attending Provider: Arya Palomares Primary Care Provider: Evon Howard [facility] Course Hospital Course: This is a 58-year-old gentleman with multiple medical problems including history of intravenous drug use, congestive heart failure, aortic valve replacement of unknown type, endocarditis, history of DVT, diabetes, hypertension and tobacco abuse who presented to the ED on 09/24/24 with right lower extremity swelling and pain over the last few days. Patient came into the ED for evaluation and was noted to have what appeared to be a cellulitis that was worsening. The patient does have underlying venous stasis changes but there appeared to be at least some cellulitic changes. Patient did have some sloughing on his right bruno over the last 24 hours. No overt necrotic tissues seen. The patient was admitted to the medical surgical floor for IV antibiotic as initiated in the ED, pending wound consults and blood culture results. Blood culture were negative X 48 hours; the patient remained hemodynamically stable and will be discharge home with home health PT and nursing for dressing change and assistance with new medicines. Wound consults ordered but not completed. As per discussion with surgery dressing with adapitc and wrapping with murtaza/kerlex and stockinet- elastic surgical netting after cleaning with wound cleanser or letting dressing fall of in the shower and washing softly with ivory soap BID as home. Surgical consult recommendation with Dr. Winslow completed with recommendation for outpatient surgery clinic on Monday for f/u re: xenograft type of treatment. The patient is to keep RLE elevated. Clindamycin script sent to pharmacy to complete a 5 day course of treatment. The patient will be discharged home with home health nursing for dressing and new medicine management and physical therapy. Recommendation for PCP follow-up: Needs a referral with vascular at [facility] Smoking cessation counselling Discussed with Dr Singh Blevins Meds and New Rx's Prescriptions: New clindamycin HCl [Cleocin HCl] 150 mg capsule 450 mg PO TID Qty: 20 0RF Bio-K plus 50 billion cell capsule,delayed release(DR/EC) 1 cap PO DAILY Qty: 7 0RF Rx Instructions: Take 3 hours apart from antibiotics Continued esomeprazole magnesium [Nexium] 40 mg capsule,delayed release(DR/EC) 40 mg PO DAILY albuterol sulfate 90 mcg/actuation HFA aerosol inhaler 2 inh inhalation Q6H PRN aspirin 81 mg Tablet 81 mg PO DAILY duloxetine 30 mg Capsule,Delayed Release(Dr/Ec) 30 mg PO BID acetaminophen [Tylenol] 325 mg tablet 1,000 mg PO Q6H PRN buprenorphine-naloxone [Suboxone] 4-1 mg film 2 film sublingual DAILY Patient Comments: PLACE ONE FILM UNDER THE TONGUE EVERY DAY cyanocobalamin (vitamin B-12) [Vitamin B-12] 1,000 mcg tablet 1,000 mcg PO DAILY Qvar RediHaler 80 mcg/actuation HFA aerosol breath activated 1 inh INHALATION BID PRN Patient Comments: INHALE ONE PUFF BY MOUTH TWICE A DAY NEEDED furosemide [Lasix] 40 mg Tablet 40 mg PO DAILY Qty: 0 0RF Patient Comments: states he doesn't take spironolactone 25 mg Tablet 25 mg PO DAILY Qty: 30 0RF amlodipine 2.5 mg tablet 2.5 mg PO DAILY Patient Comments: TAKE ONE TABLET BY MOUTH EVERY DAY gabapentin 600 mg tablet 600 mg PO TID Patient Comments: TAKE ONE TABLET BY MOUTH THREE TIMES A DAY Lactobacillus acidophilus 500 million cell Capsule 500 mmu cells PO TID Qty: 30 0RF nystatin 100,000 unit/mL suspension 100,000 unit PO DAILY Qty: 60 0RF Rx Instructions: administer 1/2 of dose in each side of the mouth lisinopril 40 mg tablet 40 mg PO DAILY Patient Comments: TAKE ONE TABLET BY MOUTH EVERY DAY Discharge Instructions Stand Alone Forms: Nursing Discharge Form Referrals: Delbert Winslow MD [ [facility] STAFF PHYSICIAN, Surgery] Referral Note: F/u on Monday as discussed with Evon Putnam MD [Primary Care Provider, Medicine] Referral Note: Follow-up within 7 days of discharge Activity:: Activity as Tolerated Equipment/Supplies:: Walker Diet:: heart healthy Discharge Orders Discharge Orders: Discharge Order (Routine); Ordered 09/26/24 Ordered By: Kristin Mac DS: Summary Time Spent with Patient providing and/or coordinating discharge services: Greater than 30 minutes Status at Discharge Functional status at discharge: uses cane/walker Overall status at discharge: patient is progressing back to baseline Mental Status: mental status grossly normal Speech and Movement: speech and movement normal Mood: congruent mood Affect: normal affect and irritable affect Exam Narrative Exam Narrative: Alert and oriented X3 , no acute distress, no acute neurological deficit but right-sided weakness from previous stroke, clear lungs, S1, S2 regular no murmur, PPP X4, abd is non-distended soft and non-tender, no CVA tendernessno RLE edema but bilateral in discoloration to Calves, dressings to right lower extremity dry skin intact. Psych Mental Status: mental status grossly normal Speech and Movement: speech and movement normal Mood: congruent mood Affect: normal affect and irritable affect DS: Data Vitals/I&O Vitals and I&O: Vital Signs Temperature 36.5 C 09/26/24 13:26 Temperature Source Skin 09/26/24 13:26 Pulse 76 09/26/24 13:26 Pulse Rhythm Regular 09/24/24 04:59 Pulse 36 L 09/24/24 04:32 Respiratory Rate 16 09/26/24 13:26 Respiratory Effort Normal 09/24/24 04:59 Respiratory Depth Normal 09/24/24 04:59 Respiratory Pattern Tachypnea 09/24/24 04:59 Blood Pressure 136/81 09/26/24 13:26 Blood Pressure Mean 99 09/26/24 13:26 Pulse Oximetry 97 09/26/24 07:15 Oxygen Delivery Method Room Air 09/26/24 13:26 Oxygen Flow Rate 0 09/26/24 13:26 Pain Level 5 09/26/24 13:28 Comment RN notified 09/24/24 07:06 Intake & Output 09/25/24 09/26/24 09/26/24 23:59 11:59 23:59 Intake Total 600 / 1090 1000 / 1350 350 / 1350 Output Total 1620 / 1620 Balance 600 / 840 -620 / -270 350 / -270 Weight 79.061 kg Intake: IV 160 / 210 1000 / 1050 50 / 1050 Oral 440 / 880 300 / 300 Output: Urine 1620 / 1620 Other: Urine Color Yellow Urine Appearance Clear Urine Odor Normal Data Completed and Pending Labs on day of discharge: Preliminary micro results at discharge 09/24/24 03:18 Blood Blood Culture - Preliminary NO GROWTH 48 HOURS 09/24/24 03:00 Blood Blood Culture - Preliminary NO GROWTH 48 HOURS PFSH All Active Problems (Updated 09/25/24 @ 18:35 by Kristin Mac APRN) Nicotine dependence (Acute) Hypertensive emergency (Acute) Hypertension (Chronic) Cellulitis of leg, right (Acute) Right middle lobe pneumonia (Acute) Hypoxia (Acute) Sepsis (Acute) Leukocytosis (Acute) Mild shortness of breath (Acute) Chest pain (Acute) Hypoxia (Acute) Recurrent apnea (Acute) Hypertensive emergency (Acute) Bilateral edema of lower extremity (Acute) Dyspnea (Acute) Right rotator cuff tear (Acute) Abnormal CT scan, kidney (Acute) Anxiety (Chronic) Medical non-compliance (Acute) Aragon esophagus (Acute) Opiate dependence (Chronic) managed on suboxone Medical History Obstructive sleep apnea Chronic venous insufficiency COPD (chronic obstructive pulmonary disease) Diabetic neuropathy Hx of deep venous thrombosis on Coumadin Diabetes mellitus Hypertension Cocaine abuse 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 S/P percutaneous endoscopic gastrostomy (PEG) tube placement History of ankle surgery S/P spinal surgery Family History Father No problems noted. Mother COPD (chronic obstructive pulmonary disease) Hypertension Diabetes Heart disease Sister Stroke Social History Smoking/Tobacco Use Status: Current every day Tobacco Type: cigarettes Years smoked: 44 Tobacco: How many years used: 40 Smoking risk assessment performed?: Yes Alcohol Intake: former Drug use: Daily Substance use type: marijuana and crack/cocaine Caregiver/Support person: Yes Household members: friend(s) Housing: house Number of Children: 0 number of grandchildren: 1 current occupation: Disabled Pets and animals: Yes Pets and animals: cat(s) Current gender identity: male What type of physical activity do you participate in: none Do you feel safe at home: Yes Do you feel safe in your relationship?: Yes Additional Social history: Lives with ex- Vanessa, who is his caregiver. Lives in private home. Time Spent with Patient Time Spent with Patient: >85 minutes Time was spent: preparing to see the patient(eg.review tests), obtaining and/or reviewing separately otained hiistory, ordering medications,tests, procedures, referring, communicating with other health director of career services, indepentently interpreting results, counseling the patient and care coordination
--- NOTE | 2024-09-26 18:42 | PDOC.HHF2F ---
Home Health Referral Home Health Orders Clinical synopsis of why skilled professionals are needed: This is a 58-year-old gentleman with multiple medical problems including history of intravenous drug use, congestive heart failure, aortic valve replacement of unknown type, endocarditis, history of DVT, diabetes, hypertension and tobacco abuse who presented to the ED on 09/24/24 with right lower extremity swelling and pain over the last few days. Patient came into the ED for evaluation and was noted to have what appeared to be a cellulitis that was worsening. The patient does have underlying venous stasis changes but there appeared to be at least some cellulitic changes. Patient did have some sloughing on his right bruno over the last 24 hours. No overt necrotic tissues seen. The patient was admitted to the medical surgical floor for IV antibiotic as initiated in the ED, pending wound consults and blood culture results. Blood culture were negative X 48 hours; the patient remained hemodynamically stable and will be discharge home with home health PT and nursing for dressing change and assistance with new medicines. Wound consults ordered but not completed. As per discussion with surgery dressing with adapitc and wrapping with murtaza/kerlex and stockinet- elastic surgical netting after cleaning with wound cleanser or letting dressing fall of in the shower and washing softly with ivory soap BID as home. Surgical consult recommendation with Dr. Winslow completed with recommendation for outpatient surgery clinic on Monday for f/u re: xenograft type of treatment. The patient is to keep RLE elevated. Clindamycin script sent to pharmacy to complete a 5 day course of treatment. The patient will be discharged home with home health nursing for dressing and new medicine management and physical therapy. Recommendation for PCP follow-up: Needs a referral with vascular at [facility] Smoking cessation counselling Discussed with Dr Singh Registered Nurse: Check all that apply Instruct on new or changed medication(s)/assess compliance: Ordered Assess for exacerbation of medical condition, instruct patient/caregivers on signs and symptoms to report for early detection: Ordered Administer injection as no willing or able caregiver and patient is unable to administer due to: Dressing change assistance and wound monitoring Physical Therapist: Check all that apply Increase strength & endurance for safe mobility at home: Ordered To design/establish home maintenance program: Ordered Fall reduction therapy program for patient with history of frequent falls: Ordered Home safety evaluation and teaching/gait training including stair management (if applicable): Ordered Encounter Date and Reason: I certify that a FTF encounter for this patient was performed on September 26, 2024 and that such encounter was related to the primary reason the patient requires home health services. The encounter was conducted in the following manner: By me as the certifying physician, SEPARATOR TENDER, PA or By an inpatient physician, SEPARATOR TENDER or PA during an inpatient stay who communicated findings to me, Certification And Authentication I certify that I composed the above information based on my clinical judgment relating to this patient's medical condition and, if applicable, clinical findings communicated to me by the NPP or inpatient physician who performed the FTF encounter. Name of Provider that will be monitoring home health services: Evon Howard
[2024-09-26] MEDS: Clindamycin 300 MG CAP PO (18:45)
--- NOTE | 2024-09-26 21:21 | SCONE_ITS ---
Date of service: 09/26/24 Time of Service: 19:00 Assessment and Plan Assessment and plan (1) Leg wound, right: Status: Acute Assessment and plan: Patient with chronic wound of right leg. This does appear well debrided. May have occurred or worsened secondary to use of hydrogen peroxide. Instructed the patient not to use this. As far as wound dressings, for now I have recommended that he use a nonadherent gauze such as petroleum gauze or Adaptic gauze to cover the wound. I gently applied a Kerlix roll over this and surgical fix should be just fine. This particular type of dressing should be changed twice daily.Wound should be cleansed once daily as well, a gentle soap such as Ivory is just fine. There are wounds matrices and very xenograft which can be used on this wound, I do not think these are stocked here at our OR. Wound vacs can also be used, but I do not think these are available for home use either. Wound may be amenable to periodic and frequent outpatient clinic follow-up, or he may need referral to regional wound center. For now he is comfortable doing wound dressings at home, he reports that his spouse normally performs his wound dressings. Will provide him with wound care supplies, and set them up with appointment at our clinic. History of Present Illness History of Present Illness Chief Complaint: Right leg chronic wound Narrative: Mr. Alegre is a pleasant 58-year-old male with history of right sided hemiplegia following CVA, he presented to this facility ([facility]), with concern for pain and infection on his right leg. He does report skin changes on his bilateral legs, some thinning and fragility of the skin. The ulcer he reports began slowly, as it breakdown the skin and then progressed. Patient does report that he was cleaning the wound daily with hydrogen peroxide. Review of Systems Narrative: General, patient with overall debilitated state of health. HEENT, negative. CV, history of cocaine abuse, and intravenous drug abuse. Respiratory, history of COPD and tobacco use. GI, negative on this admission. , negative. Musculoskeletal, as per HPI, patient with right leg wound. Neuro, as per HPI above, patient with right-sided hemiplegia. Skin, as per HPI above and physical examination below. PFSH All Active Problems (Updated 09/26/24 @ 21:28 by Delbert Winslow MD) Leg wound, right (Acute) Nicotine dependence (Acute) Hypertensive emergency (Acute) Hypertension (Chronic) Cellulitis of leg, right (Acute) Right middle lobe pneumonia (Acute) Hypoxia (Acute) Sepsis (Acute) Leukocytosis (Acute) Mild shortness of breath (Acute) Chest pain (Acute) Hypoxia (Acute) Recurrent apnea (Acute) Hypertensive emergency (Acute) Bilateral edema of lower extremity (Acute) Dyspnea (Acute) Right rotator cuff tear (Acute) Abnormal CT scan, kidney (Acute) Anxiety (Chronic) Medical non-compliance (Acute) Aragon esophagus (Acute) Opiate dependence (Chronic) managed on suboxone Medical History Obstructive sleep apnea Chronic venous insufficiency COPD (chronic obstructive pulmonary disease) Diabetic neuropathy Hx of deep venous thrombosis on Coumadin Diabetes mellitus Hypertension Cocaine abuse 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 S/P percutaneous endoscopic gastrostomy (PEG) tube placement History of ankle surgery S/P spinal surgery Family History Father No problems noted. Mother COPD (chronic obstructive pulmonary disease) Hypertension Diabetes Heart disease Sister Stroke Social History Smoking/Tobacco Use Status: Current every day Tobacco Type: cigarettes Years smoked: 44 Tobacco: How many years used: 40 Smoking risk assessment performed?: Yes Alcohol Intake: former Drug use: Daily Substance use type: marijuana and crack/cocaine Caregiver/Support person: Yes Household members: friend(s) Housing: house Number of Children: 0 number of grandchildren: 1 current occupation: Disabled Pets and animals: Yes Pets and animals: cat(s) Current gender identity: male What type of physical activity do you participate in: none Do you feel safe at home: Yes Do you feel safe in your relationship?: Yes Additional Social history: Lives with ex- Vanessa, who is his caregiver. Lives in private home. Exam Narrative Exam Narrative: Patient was examined this evening, with his primary care provider Ms. Kristin Mac available as well. Patient has a large skin ulcer involving at the dermis, this measures generously about 20 x 10 cm in area. It does appear to be granulating well, there is no slough nor necrotic debris. There is no palpable edema on the surrounding skin, the muscular compartments of the leg palpably are soft. There is no significant surrounding erythema. Results Last Vital Signs Temp 36.5 C 09/26/24 13:26 Pulse 76 09/26/24 13:26 Resp 16 09/26/24 13:26 BP 136/81 09/26/24 13:26 Pulse Ox 97 09/26/24 07:15 Labs 09/25/24 15:40 09/25/24 15:40
--- NOTE | 2024-10-07 13:42 | PGE_ITS ---
Date of Service Date of service: 09/25/24 Time of Service: 12:55 Assessment and Plan Assessment and plan (1) Cellulitis of leg, right: Status: Acute Assessment and plan: History of pcn allergy Ongoing clindamycin with probiotic Wound care consult pending Blood Cx negative No leukocytosis on admission Most likely to continue oral antibiotics on d/c status post blood culture findings (2) Hypertension: Status: Chronic Assessment and plan: SBP 200- 250 in the ED labetalol in the ED with SBP 229-250, concerning for compliance D/c clonidine patch from ED Now on PRN oral clonidine in the setting of + UDS for cocaine BP is controlled now (3) Opiate dependence: Status: Chronic Assessment and plan: on home dose suboxone (4) Endocarditis: Assessment and plan: resolved Hx of valve replacement as per echo of 2023 bioprosthetic valve seen -not on coumadin or other anticoagulation medicine (5) Acute kidney injury: Status: Resolved Assessment and plan: Creatinine up to 1.4 from 1.0 IV fluid with LR at 100 cc an hour, history of HFpEF as per echo in 2023 Hold furosemide and avoid nephrotoxic medicines BMP in the morning (6) Nicotine dependence: Status: Acute Assessment and plan: NRT (7) Diabetes mellitus: Assessment and plan: A1C no w 6.2 Blood glucose :144-155- will d/c monitoring BMP in AM (8) Chronic venous insufficiency: Assessment and plan: Hx of mild benefit from compression once skin lesions are healed On Lovenox for DVT prophylaxis Discussed with Dr. Singh Subjective Subjective Patient reports: no new complaints, feels better, tolerating liquids well, voiding w/o difficulty and bowel movement; denies diarrhea, nausea, vomiting, shortness of breath or fever Exam Narrative Exam Narrative: Alert and oriented X3 , no acute distress, no acute neurological deficit but right-sided weakness from previous stroke, clear lungs, S1, S2 regular no murmur, PPP X4, abd is non-distended soft and non-tender, no CVA tenderness , no RLE edema but bilateral chronic discoloration to LEs, dressings to right lower extremity dry clean and intact. Objective Last Vital Signs Temp 36.5 C 09/26/24 13:26 Pulse 76 09/26/24 13:26 Resp 16 09/26/24 13:26 BP 136/81 09/26/24 13:26 Pulse Ox 97 09/26/24 07:15 Time Spent with Patient Time Spent with Patient: 35-49 minutes Time was spent: preparing to see the patient(eg.review tests), obtaining and/or reviewing separately otained hiistory, ordering medications,tests, procedures, referring, communicating with other health team primary care physician, indepentently interpreting results, counseling the patient and care coordination
== END 2024-09-26 19:10 | disposition home health service (06) ==
LOC: ER 04:36 → MS 04:55
PROVIDERS: Admitting Provider Hospitalist; Emergency Provider Student in an Organized Health Care Education/Training Program; PCP Family Medicine; Responsible Provider Nurse Practitioner Acute Care; Visit Provider Hospitalist
DX: L03.115 Cellulitis of right lower limb (principal); E11.40 Type 2 diabetes mellitus with diabetic neuropathy, unspecified; F11.20 Opioid dependence, uncomplicated; I87.2 Venous insufficiency (chronic) (peripheral); L97.811 Non-pressure chronic ulcer of other part of right lower leg limited to breakdown of skin; I69.351 Hemiplegia and hemiparesis following cerebral infarction affecting right dominant side; F14.10 Cocaine abuse, uncomplicated; J44.9 Chronic obstructive pulmonary disease, unspecified; F17.210 Nicotine dependence, cigarettes, uncomplicated; R60.0 Localized edema; F41.9 Anxiety disorder, unspecified; G47.33 Obstructive sleep apnea (adult) (pediatric); Z86.718 Personal history of other venous thrombosis and embolism; Z79.01 Long term (current) use of anticoagulants; Z95.2 Presence of prosthetic heart valve; F12.90 Cannabis use, unspecified, uncomplicated; I11.0 Hypertensive heart disease with heart failure; I50.9 Heart failure, unspecified; N17.9 Acute kidney failure, unspecified
CPT/HCPCS: 00123; 36415; 80048; 80053; 80307; 84145; 87040; 93005; 96365; 96366; 96372; 97110; 97162; 99285; J1650; 83036; 83605; 83735; 85025; 93010; 99222; 99239; G0378; J0737

== ENCOUNTER 2024-09-30 07:55 | Inpatient (IN) | payer MEDICAID, SELFPAY ==
[2024-09-30] VITALS (35 sets, daily range): BP systolic 156–235; BP diastolic 78–131; PULSE 42–177; RESP 10–34; TEMP 36.2–36.7; O2SAT 92–100
--- NOTE | 2024-09-30 08:00 | DI.CT_ITS ---
Exam(s) CT LOWER EXTREMITY RT W EXAM: CT LOWER EXTREMITY RT W CLINICAL HISTORY: recurrent cellulitis, eval abscess, knee to toes. TECHNIQUE: Imaging Protocol: Axial computed tomography images with coronal and sagittal reformatted images were created and reviewed. CONTRAST MATERIAL: Intravenous: Omnipaque 350 Contrast volume:100 ml Contrast route:IV - COMPARISON: CR,XR XR FOOT LT COMPLETE from 08/28/[address] LOWER EXTREMITY RT W from 12/25/2023 FINDINGS: Bones: There is no evidence of fracture or dislocation. No osteomyelitic changes are identified. No lytic or sclerotic lesions are identified. Joints: There is no significant joint space narrowing. No significant periarticular spurring. Soft Tissues: Metallic foreign body in the soft tissues of the upper 3rd of the lateral leg. No evidence of surrounding fluid collection or subcutaneous edema. There is edema in the skin and soft tissues of the lateral lower leg, just above the level of the ankle, seen through the level of the foot. No evidence of abscess. Vasculature: Mild calcification at the level of the trifurcation of the popliteal vein. Vessels are patent distally. No significant stenosis. Venous structures are not yet opacified. IMPRESSION: No evidence of abscess. Findings consistent with cellulitis at the lateral ankle and dorsum of the foot. RADIATION DOSE DELIVERED: 410.23mGy.cm Total DLP DATA REPOSITORY: All CT scans at this facility are submitted to the National Radiology Data Registry (NRDR) Dose Index Registry (DIR) with the [employer] (ACR). RADIATION OPTIMIZATION: All CT scans at this facility use at least one of these dose optimization techniques: automated exposure control; mA and/or kV adjustment per patient size (includes targeted exams where dose is matched to clinical indication); or iterative reconstruction.
--- NOTE | 2024-09-30 08:07 | W.ED.GENAD ---
Discharge Plan Disposition Patient Disposition: Admit to [facility] Condition: Stable Discharge Details Clinical Impression: Cellulitis of leg, right Admit Date/Time: 09/30/24 12:20 Admit Provider: Chandler Melton Attending Provider: Chandler Melton Primary Care Provider: Evon Howard ED Provider: Tracy Castrejon General Mode of arrival: EMS. Date/Time Provider Initiated Documentation: 09/30/24 08:00. Limitations to Documentation: no limitations. Information obtained by: patient, EMS and old records reviewed. HPI Narrative: This is a 58-year-old male patient with a past medical history significant for opioid use disorder on Suboxone maintenance therapy, a history of endocarditis, and a recent admission for cellulitis and chronic wound/ulceration of the right lower extremity. The patient reports that after his discharge, he completed his course of clindamycin, last dose was last night. A few days ago he started to notice worsening pain in the leg and worsening of the surrounding redness. States that he has been trying to manage his pain at home with Tylenol. Reports that the pain feels like razor blades. No documented fevers but he has felt cold chills. Denies sensory changes or weakness distal to the injury. The patient was transported by EMS given his inability to walk due to pain. He was there noted to have an elevated blood pressure into the 200s systolics, no other significant vital signs abnormalities other than a mild bradycardia. Related Data Home Medications ?Medication ?Instructions ?Recorded ?Confirmed esomeprazole magnesium 40 mg 40 mg PO DAILY 05/05/20 09/30/24 capsule,delayed release (Nexium) aspirin 81 mg tablet 81 mg PO DAILY 08/03/20 09/30/24 duloxetine 30 mg capsule,delayed 30 mg PO BID 08/03/20 09/30/24 release acetaminophen 325 mg tablet 1,000 mg PO Q6H PRN 09/27/20 09/30/24 (Tylenol) buprenorphine 4 mg-naloxone 1 mg 2 film sublingual DAILY 09/28/20 09/30/24 sublingual film (Suboxone) albuterol sulfate 90 mcg/actuation 2 inh inhalation Q6H PRN 04/12/22 09/30/24 aerosol inhaler cyanocobalamin (vitamin B-12) 1,000 mcg PO DAILY 01/15/24 08/11/25 1,000 mcg tablet (Vitamin B-12) amlodipine 2.5 mg tablet 2.5 mg PO DAILY 09/30/23 09/30/24 gabapentin 600 mg tablet 600 mg PO TID 09/30/23 09/30/24 beclomethasone dipropionate 80 1 inh inhalation BID PRN 12/27/23 09/30/24 mcg/actuation HFA breath activated aerosol (Qvar RediHaler) furosemide 40 mg tablet (Lasix) 40 mg PO DAILY #0 tabs 12/29/23 09/30/24 Lactobacillus acidophilus 500 500 mmu cells PO TID #30 caps 02/09/24 09/30/24 million cell capsule spironolactone 25 mg tablet 25 mg PO DAILY #30 tabs 04/26/24 09/30/24 lisinopril 40 mg tablet 40 mg PO DAILY 07/07/24 09/30/24 L. acidophilus,casei,rhamnosus 50 1 cap PO DAILY #7 caps 09/26/24 09/30/24 billion cell capsule,delayed release (Bio-K plus) clindamycin HCl 150 mg capsule 450 mg (3 x 150 mg) PO TID #20 caps 09/26/24 09/30/24 (Cleocin HCl) Previous Rx's ?Medication ?Instructions ?Recorded furosemide 40 mg tablet (Lasix) 40 mg PO DAILY #0 tabs 12/29/23 Lactobacillus acidophilus 500 500 mmu cells PO TID #30 caps 02/09/24 million cell capsule spironolactone 25 mg tablet 25 mg PO DAILY #30 tabs 04/26/24 L. acidophilus,casei,rhamnosus 50 1 cap PO DAILY #7 caps 09/26/24 billion cell capsule,delayed release (Bio-K plus) clindamycin HCl 150 mg capsule 450 mg (3 x 150 mg) PO TID #20 caps 09/26/24 (Cleocin HCl) Allergies Allergy/AdvReac Type Severity Reaction Status Date / Time Penicillins AdvReac Severe Vomiting Verified 09/30/24 08:02 hydrocodone AdvReac Intermediate vomiting Verified 09/30/24 08:02 General Stated Complaint: Cellulitis LILLIAN: 2 Exam Narrative Exam Narrative: Gen: Awake and alert, appears significantly uncomfortable HEENT: Non-icteric sclera Neck: Supple Lungs: No apparent respiratory distress, normal respiratory effort. CV: Appears well perfused, heart with bradycardic rate but regular rhythm, strong distal pulses. Abdomen: Non-distended, soft MSK: Moves 4 extremities without apparent limitation in ROM. The patient's right lower extremity has an area of ulceration on the anterior aspect measuring approximately 15 cm at its largest. There is surrounding redness, warmth, and induration from the ankle just distal to the knee. The right DP pulse is easily palpable and strong, sensation preserved in the right foot, appropriate strength and mobility. Skin: Visualized skin without rashes, cyanosis except as noted above. Neuro: No obvious focal deficits or facial asymmetry. Speaks in full, clear sentences. Psych: Appropriate for situation. Course Vital Signs Vital signs: Vital Signs Temperature 36.4 C 09/30/24 07:56 Pulse 54 L 09/30/24 07:56 Respiratory Rate 20 09/30/24 07:56 Blood Pressure 198/99 H 09/30/24 07:56 Pulse Oximetry 97 09/30/24 07:56 Temperature 36.4 C 09/30/24 08:02 Temperature Source Tympanic 09/30/24 08:02 Pulse 54 L 09/30/24 08:02 Respiratory Rate 20 09/30/24 08:02 Blood Pressure 198/99 H 09/30/24 08:02 Pulse Oximetry 97 09/30/24 08:02 Lab/Test Results Lab/Test Results: 09/30/24 08:02 Blood Blood Culture - Pending 09/30/24 08:02 Blood Blood Culture - Pending Medical Decision Making This is a 58-year-old male patient presented for evaluation of leg pain in the setting of a known chronic wound and recent cellulitis. Differential includes but is not limited to cellulitis, certainly considered abscess and osteomyelitis, considered sepsis, bacteremia. Considered metabolic and electrolyte derangement, kidney injury, dehydration and anemia. The patient has strong pulses and I have less concern for arterial occlusion, though certainly he does have venous stasis/vascular component to this chronic wound. The exam is less concerning for DVT. We will obtain laboratory studies to include CBC, CMP, magnesium, troponin, ESR and CRP. I will obtain blood cultures. I will obtain CT imaging of the affected right lower extremity to evaluate for abscess or other abnormalities which might explain the recurrent cellulitis despite appropriate antibiosis. On review of the patient's chart he has tolerated ceftriaxone in the past, after cultures are obtained I will provide him with a dose of ceftriaxone intravenously. - I independently interpreted the laboratory studies, which show no significant leukocytosis, anemia, or thrombocytopenia. The chemistry panel is without evidence of electrolyte abnormality, kidney dysfunction, or liver injury. ESR and CRP are slightly elevated, troponin was negative. CT scan shows evidence of cellulitis but no abscess or other abnormality to explain the recurrence of the patient's symptoms. The initial Tylenol and Dilaudid did help manage his pain, I also provided him with his home Suboxone and gabapentin. I reached out to the hospitalist who is graciously accepted this patient for admission for ongoing management of his recurrent cellulitis. Remained hemodynamically appropriate while under my care and was transferred from our department without incident. Tracy Castrejon MD Quality:SDOH Health Related Social Needs: Health related social needs education Health related social needs details ind at home, denies needs PFSH All Active Problems (Updated 09/30/24 @ 14:45 by Tracy Castrejon MD) Leg wound, right (Acute) Nicotine dependence (Acute) Hypertensive emergency (Acute) Hypertension (Chronic) Cellulitis of leg, right (Acute) Right middle lobe pneumonia (Acute) Hypoxia (Acute) Sepsis (Acute) Leukocytosis (Acute) Mild shortness of breath (Acute) Chest pain (Acute) Hypoxia (Acute) Recurrent apnea (Acute) Hypertensive emergency (Acute) Bilateral edema of lower extremity (Acute) Dyspnea (Acute) Right rotator cuff tear (Acute) Abnormal CT scan, kidney (Acute) Anxiety (Chronic) Medical non-compliance (Acute) Aragon esophagus (Acute) Opiate dependence (Chronic) managed on suboxone Medical History Obstructive sleep apnea Chronic venous insufficiency COPD (chronic obstructive pulmonary disease) Diabetic neuropathy Hx of deep venous thrombosis on Coumadin Diabetes mellitus Hypertension Cocaine abuse 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 S/P percutaneous endoscopic gastrostomy (PEG) tube placement History of ankle surgery S/P spinal surgery Family History Father No problems noted. Mother COPD (chronic obstructive pulmonary disease) Hypertension Diabetes Heart disease Sister Stroke Social History Smoking/Tobacco Use Status: Current every day Tobacco Type: cigarettes Years smoked: 44 Tobacco: How many years used: 40 Smoking risk assessment performed?: Yes Alcohol Intake: former Drug use: Daily Substance use type: marijuana and crack/cocaine Caregiver/Support person: Yes Household members: friend(s) Housing: house Number of Children: 0 number of grandchildren: 1 current occupation: Disabled Pets and animals: Yes Pets and animals: cat(s) Current gender identity: male What type of physical activity do you participate in: none Do you feel safe at home: Yes Do you feel safe in your relationship?: Yes Additional Social history: Lives with ex- Vanessa, who is his caregiver. Lives in private home.
[2024-09-30] MEDS: ACETAMINOPHEN 1,000 MG/100 ML BAG 400 MG IVPB (08:25)
[2024-09-30] MEDS: HYDROmorphone 2 MG/ML SYR 0.5 MG IVP (08:25)
[2024-09-30 08:26] LABS: Abs Immature Grans 0.02 10^3/uL (0.0-0.06); HCT 44.0 % (40.0-50.0); HGB 14.2 g/dL (13.5-17.5); Immature Grans % 0.3 %; MCH 26.6 pg (27.0-33.0); MCHC 32.3 % (32.0-36.0); MCV 82 fL (80-95); MPV 9.2 fL (8.0-11.0); Platelet Count 324 10^3/uL (130-400); RBC 5.34 10^6/uL (4.36-5.78); RDW 15.6 % (11.8-14.1); RDW-SD 46.5 fL; WBC 6.51 10^3/uL (4.4-10.8)
[2024-09-30 08:41] LABS: ESR 36 mm/hr (0-20)
[2024-09-30 08:53] LABS: ALT 15 U/L (16-63); AST 10 U/L (15-37); Albumin 3.5 g/dL (3.4-5.0); Alkaline Phosphatase 73 U/L (46-116); Anion Gap 7.4 mmol/L (3-11); BUN 30 mg/dL (7-18); Bilirubin, Total 0.6 mg/dL (0.2-1.0); C-Reactive Protein 5.72 mg/dL (<or=0.5); CO2 29.6 mmol/L (21.0-32.0); Calcium 9.1 mg/dL (8.5-10.1); Chloride 103 mmol/L (98-107); Estimated GFR 58.26 (mL/min/1.73m2); Glucose 121 mg/dL (74-106); Magnesium 2.2 mg/dL (1.8-2.4); Potassium 3.9 mmol/L (3.5-5.1); Sodium 140 mmol/L (136-145); Total Protein 8.0 g/dL (6.4-8.2); Troponin I 17 ng/L (<or=76)
[2024-09-30] MEDS: Normal Saline - Diluent 50 ML VIAL IJ (10:27)
[2024-09-30] MEDS: Omnipaque 350 MG/ML 500 ML BTL-Imaging package IJ (10:28)
[2024-09-30 10:35] LABS: Troponin I 19 ng/L (<or=76)
[2024-09-30] MEDS: cefTRIAXone 1 GM/50 ML BAG IVPB (10:52)
[2024-09-30] MEDS: Buprenorphine/Naloxone 8 mg/2 mg FILM 1 EACH SL (12:47)
[2024-09-30] MEDS: Gabapentin 300 MG CAP 600 MG PO (12:47)
--- NOTE | 2024-09-30 13:47 | W.PC.ACHO ---
Registration Status: ADM IN Primary Language: Preferred Language: Turkmen ED Information & Data Chief Complaint Cellulitis 09/30/24 08:07 Triage Note BIBA unable to ambulate 09/30/24 07:56 normally increased pain for few days with chills d/t known vascular wound to LLE Medical / Surgical History (Last Reviewed 07/11/24 @ 09:00 by Leonor Be MD) Obstructive sleep apnea Chronic venous insufficiency COPD (chronic obstructive pulmonary disease) Diabetic neuropathy Hx of deep venous thrombosis Diabetes mellitus Hypertension Cocaine abuse Cerebral septic emboli GI bleed Osteomyelitis of left fibula Endocarditis Depression MSSA (methicillin susceptible Staphylococcus aureus) septicemia (Last Reviewed 07/11/24 @ 09:00 by Leonor Be MD) S/P endoscopy H/O aortic valve replacement S/P hardware removal S/P percutaneous endoscopic gastrostomy (PEG) tube placement History of ankle surgery S/P spinal surgery Most Recent Vital Signs Temperature 36.7 C 09/30/24 13:27 Temperature Source Temporal Artery Scan 09/30/24 13:27 Pulse 72 09/30/24 13:27 Pulse 64 09/30/24 12:01 Respiratory Rate 16 09/30/24 13:27 Blood Pressure 166/131 H 09/30/24 13:27 Blood Pressure Mean 142 09/30/24 13:27 Pulse Oximetry 92 09/30/24 13:27 Oxygen Delivery Method Room Air 09/30/24 13:27 Oxygen Flow Rate 0 09/30/24 13:27 Pain Level 6 09/30/24 13:27 Allergies Penicillins Adverse Reaction (Severe, Verified 09/30/24 08:02) Vomiting hydrocodone Adverse Reaction (Intermediate, Verified 09/30/24 08:02) vomiting Precautions Isolation Standard precaution 09/30/24 08:01 Active Medications Generic Name Dose Route Start Last Admin Trade Name Freq PRN Reason Stop Dose Admin Iohexol 500 ml 09/30/24 10:30 09/30/24 10:28 Omnipaque 350 Mg/Ml 500 Ml Btl-Imaging Package IJ 10/30/24 23:59 100 ml DIRECTED HAMLET Administration Sodium Chloride 0 ml 09/30/24 08:30 09/30/24 13:43 Normal Saline Flush 10 Ml Syr IVP Not Given BID HAMLET Sodium Chloride 50 ml 09/30/24 10:30 09/30/24 10:27 Normal Saline - Diluent 50 Ml Vial IJ 50 ml .FOR DI USE HAMLET Administration IV IV Catheter Type [Left Forearm Peripheral IV ] IV Catheter Gauge [Left 20 Forearm] Diet Orders Category Date Time Status Regular/Normal [DIET] Nutrition 09/30/24 Dinner Active Diagnostics 09/30/24 09/30/24 09/30/24 Range/Units 12:55 09:40 08:15 WBC 6.51 (4.4-10.8) 10^3/uL RBC 5.34 (4.36-5.78) 10^6/uL Hgb 14.2 (13.5-17.5) g/dL Hct 44.0 (40.0-50.0) % MCV 82 (80-95) fL MCH 26.6 L (27.0-33.0) pg MCHC 32.3 (32.0-36.0) % RDW 15.6 H (11.8-14.1) % Plt Count 324 (130-400) 10^3/uL MPV 9.2 (8.0-11.0) fL Immature Gran % 0.3 % Neutrophils % 61.3 % Lymphocytes % 21.0 % Monocytes % 11.7 % Eosinophils % 4.5 % Basophils % 1.2 % Nucleated RBC % 0.0 (0.0-0.3) % Absolute Neutrophils 3.99 (1.2-6.7) 10^3/uL Absolute Lymphocytes 1.37 (1.2-3.4) 10^3/uL Absolute Monocytes 0.76 (0.1-0.8) 10^3/uL Absolute Eosinophils 0.29 (0.0-0.7) 10^3/uL Absolute Basophils 0.08 (0.0-0.2) 10^3/uL ESR 36 H (0-20) mm/hr Sodium 140 (136-145) mmol/L Potassium 3.9 (3.5-5.1) mmol/L Chloride 103 (98-107) mmol/L Carbon Dioxide 29.6 (21.0-32.0) mmol/L Anion Gap 7.4 (3-11) mmol/L BUN 30 H (7-18) mg/dL Creatinine 1.4 H (0.70-1.30) mg/dL Est GFR (CKD-EPI 2020) 58.26 (mL/min/1.73m2) Glucose 121 H (74-106) mg/dL Calcium 9.1 (8.5-10.1) mg/dL Magnesium 2.2 (1.8-2.4) mg/dL Total Bilirubin 0.6 (0.2-1.0) mg/dL AST 10 L (15-37) U/L ALT 15 L (16-63) U/L Alkaline Phosphatase 73 (46-116) U/L Troponin I Pending 19 17 (<or=76) ng/L C-Reactive Protein 5.72 H (<or=0.5) mg/dL Total Protein 8.0 (6.4-8.2) g/dL Albumin 3.5 (3.4-5.0) g/dL 09/30/24 09:55 Blood Culture - Pending Blood 09/30/24 09:40 Blood Culture - Pending Blood Intake and Output - 24 Hour Total 09/30/24 07:44 thru 09/30/24 12:47 Intake Total 150 Balance 150 Weight 81.7 kg Intake: IV 150 Falls Risk Assessment History of Falls Previous History 09/30/24 08:01 Contributing Factors Impairments 09/30/24 08:01 Ambulatory Aids Uses ambulatory device + 09/30/24 08:01 Tubes/Lines With any additional score 09/30/24 08:01 Gait Evaluation W/any additional score 09/30/24 08:01 Cognition No cognitive impairment 09/30/24 08:01 Fall Total Score 88 09/30/24 08:01 Level of Risk Maximum Risk 09/30/24 08:01 v v v v v v v v v Sending and/or Receiving Nurses: Please use comment section below to note any information pertinent to the patient hand-off not included above. Information / Comments: Report received from: PT c/o 11/29 pain to right lower leg wound. 150/95, 63HR, 16RR, 97%, 36.3C. pain medication given with good effect, IV ABX given in ER GEORGIE Fang
[2024-09-30 14:04] LABS: Troponin I 15 ng/L (<or=76)
--- NOTE | 2024-09-30 14:52 | HPE_ITS ---
Date of service: 09/30/24 Time of Service: 12:00 Assessment and Plan Assessment and plan (1) Leg wound, right: Status: Acute Assessment and plan: Recurrent / worsening right lower extremity cellulitis ? failed recent oral clindamycin after hospital discharge. Chronic venous stasis disease contributing to impaired wound healing. Multiple comorbidities increasing infection risk: diabetes, CHF, history of endocarditis, IVDU, tobacco use. IV Cephazolin 2 gm q8h IV; broaden coverage if clinical course worsens or cultures indicate. Daily wound assessment; wound care consult. Continue elevation of RLE; rosa elena erythema borders for monitoring. Monitor labs and cultures; adjust antibiotics per results. Continue home meds as appropriate; monitor renal function. Coordinate with surgery/vascular as previously planned. Smoking cessation counseling. Cleanse wound daily with dermal cleansing solution Aquacel AG wound dressing, change daily or when saturated until assessment by wound care nurse Acetaminophen for pain/fever. (2) Hypertension: Status: Chronic Assessment and plan: Stable Continue lisinopril (3) Opiate dependence: Status: Chronic Assessment and plan: Stable Continue buprenorphine (4) COPD (chronic obstructive pulmonary disease): Assessment and plan: Stable Continue home meds (5) Chronic venous insufficiency: Assessment and plan: DP/PT palp, feet are warm, pink, NURSE LIAISON ~ 4 sec History of Present Illness History of Present Illness Chief Complaint: Worsening pain, swelling, and redness of the right lower extremity Narrative: 58-year-old male with extensive past medical history including IVDU, CHF, aortic valve replacement, endocarditis, DVT, diabetes, hypertension, COPD, and chronic venous insufficiency, who was discharged on 09/26/24 after hospitalization for right lower extremity cellulitis treated with IV antibiotics and transitioned to oral clindamycin for 5 days. Wound care and outpatient surgery follow-up were arranged at discharge. Blood cultures remained negative. Wound care consult was ordered but not completed during admission; outpatient follow-up was recommended. Patient now presents on 09/30/24, 4 days after discharge, with worsening RLE pain, swelling, and redness. Reports that symptoms worsened over the past 24 hours after completing his antibiotic course yesterday. Denies fevers, chills, chest pain, shortness of breath. States he has been elevating the leg and performing wound care as instructed. No new trauma or injury. Patient states that the area of redness has expanded beyond previously marked borders and pain has increased despite completing his clindamycin course yesterday. Reports mild serous drainage from the wound dressing. Denies fevers, chills, chest pain, shortness of breath, or new trauma. States he has been keeping the leg elevated and following wound care instructions. Patient does have current home health services, RN, PT, PFSH All Active Problems (Updated 09/30/24 @ 14:45 by Tracy Castrejon MD) Leg wound, right (Acute) Nicotine dependence (Acute) Hypertensive emergency (Acute) Hypertension (Chronic) Cellulitis of leg, right (Acute) Right middle lobe pneumonia (Acute) Hypoxia (Acute) Sepsis (Acute) Leukocytosis (Acute) Mild shortness of breath (Acute) Chest pain (Acute) Hypoxia (Acute) Recurrent apnea (Acute) Hypertensive emergency (Acute) Bilateral edema of lower extremity (Acute) Dyspnea (Acute) Right rotator cuff tear (Acute) Abnormal CT scan, kidney (Acute) Anxiety (Chronic) Medical non-compliance (Acute) Aragon esophagus (Acute) Opiate dependence (Chronic) managed on suboxone Medical History Obstructive sleep apnea Chronic venous insufficiency COPD (chronic obstructive pulmonary disease) Diabetic neuropathy Hx of deep venous thrombosis on Coumadin Diabetes mellitus Hypertension Cocaine abuse 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 S/P percutaneous endoscopic gastrostomy (PEG) tube placement History of ankle surgery S/P spinal surgery Family History Father No problems noted. Mother COPD (chronic obstructive pulmonary disease) Hypertension Diabetes Heart disease Sister Stroke Social History Smoking/Tobacco Use Status: Current every day Tobacco Type: cigarettes Years smoked: 44 Tobacco: How many years used: 40 Smoking risk assessment performed?: Yes Alcohol Intake: former Drug use: Daily Substance use type: marijuana and crack/cocaine Caregiver/Support person: Yes Household members: friend(s) Housing: house Number of Children: 0 number of grandchildren: 1 current occupation: Disabled Pets and animals: Yes Pets and animals: cat(s) Current gender identity: male What type of physical activity do you participate in: none Do you feel safe at home: Yes Do you feel safe in your relationship?: Yes Additional Social history: Lives with ex- Vanessa, who is his caregiver. Lives in private home. Meds Allergies and Home Medications Allergies Allergy/AdvReac Type Severity Reaction Status Date / Time Penicillins AdvReac Severe Vomiting Verified 09/30/24 08:02 hydrocodone AdvReac Intermediate vomiting Verified 09/30/24 08:02 Home Medications ?Medication ?Instructions ?Recorded ?Confirmed ?Type esomeprazole magnesium 40 mg 40 mg PO DAILY 05/05/20 0 09/30/24 History capsule,delayed release (Nexium) aspirin 81 mg tablet 81 mg PO DAILY 08/03/2009/20 History duloxetine 30 mg capsule,delayed 30 mg PO BID 08/03/20 09/30/24 History release acetaminophen 325 mg tablet 1,000 mg PO Q6H PRN 09/30/24 History (Tylenol) buprenorphine 4 mg-naloxone 1 mg 2 film sublingual CHICO LY 09/28/20 09/30/24 History sublingual film (Suboxone) albuterol sulfate 90 mcg/actuation 2 inh inhalation Q6 H PRN 04/12/22 09/30/24 History aerosol inhaler cyanocobalamin (vitamin B-12) 1,000 mcg PO DAILY 03/0609/30/24 History 1,000 mcg tablet (Vitamin B-12) amlodipine 2.5 mg tablet 2.5 mg PO DAILY 09/30/2301/14 History gabapentin 600 mg tablet 600 mg PO TID 09/30/2309/30 History beclomethasone dipropionate 80 1 inh inhalation BID VT N 12/27/23 09/30/24 History mcg/actuation HFA breath activated aerosol (Qvar RediHaler) furosemide 40 mg tablet (Lasix) 40 mg PO DAILY #0 tabs 12/29/23 09/30/24 Rx Lactobacillus acidophilus 500 500 mmu cells PO TID #30 caps 02/09/24 09/30/24 Rx million cell capsule spironolactone 25 mg tablet 25 mg PO DAILY #30 tabs 09/30/24 Rx lisinopril 40 mg tablet 40 mg PO DAILY 07/07/2409/20 History L. acidophilus,casei,rhamnosus 50 1 cap PO DAILY #7 ca ps 09/26/24 09/30/24 Rx billion cell capsule,delayed release (Bio-K plus) clindamycin HCl 150 mg capsule 450 mg (3 x 150 mg) PO TID #20 caps 09/26/24 09/30/24 Rx (Cleocin HCl) Exam Narrative Exam Narrative: * General: Alert, oriented, no acute distress * Cardiac: RRR, no murmurs * Lungs: Clear to auscultation bilaterally * Abdomen: Soft, nontender, nondistended * Extremities: RLE with erythema, warmth, tenderness to palpation extending beyond prior marked borders; dressing with mild serous drainage; no fluctuance or purulent discharge noted. Chronic venous stasis changes present bilaterally. * Neuro: No new focal deficits; baseline right-sided weakness from prior CVA. Results Labs 09/30/24 08:15 09/30/24 08:15 Labs: Laboratory Results - last 24 hr 09/30/24 09/30/24 09/30/24 08:15 09:40 12:55 WBC 6.51 RBC 5.34 Hgb 14.2 Hct 44.0 MCV 82 MCH 26.6 L MCHC 32.3 RDW 15.6 H Plt Count 324 MPV 9.2 Immature Gran % 0.3 Neutrophils % 61.3 Lymphocytes % 21.0 Monocytes % 11.7 Eosinophils % 4.5 Basophils % 1.2 Nucleated RBC % 0.0 Absolute Neutrophils 3.99 Absolute Lymphocytes 1.37 Absolute Monocytes 0.76 Absolute Eosinophils 0.29 Absolute Basophils 0.08 ESR 36 H Sodium 140 Potassium 3.9 Chloride 103 Carbon Dioxide 29.6 Anion Gap 7.4 BUN 30 H Creatinine 1.4 H Est GFR (CKD-EPI 2020) 58.26 Glucose 121 H Calcium 9.1 Magnesium 2.2 Total Bilirubin 0.6 AST 10 L ALT 15 L Alkaline Phosphatase 73 Troponin I 17 19 15 C-Reactive Protein 5.72 H Total Protein 8.0 Albumin 3.5 Last Vital Signs Temp 36.3 C L 09/30/24 13:47 Pulse 63 09/30/24 13:47 Resp 16 09/30/24 13:47 BP 175/97 H 09/30/24 13:47 Pulse Ox 97 09/30/24 13:47 Time Spent Time spent with Patient: 40-54 minutes Time was spent: preparing to see the patient(eg.review tests), obtaining and/or reviewing separately otained hiistory, ordering medications,tests, procedures, referring, communicating with other health ambulatory care coordinator, indepentently interpreting results, counseling the patient and care coordination
[2024-09-30] MEDS: Lactobacillus Acidophilus CAP 1 CAP PO ×2 (15:11→20:07)
[2024-09-30] MEDS: Gabapentin 600 MG TAB PO ×2 (15:11→20:07)
[2024-09-30] MEDS: ceFAZolin 2 GM/50 ML BAG IVPB ×2 (15:11→22:15)
[2024-09-30] MEDS: Normal Saline Flush 10 ML SYR IVP ×2 (15:12→20:12)
[2024-09-30] MEDS: DULoxetine 30 MG CAP PO (20:07)
[2024-09-30] MEDS: Acetaminophen 500 MG TAB 1000 MG PO (20:11)
--- NOTE | 2024-09-30 21:04 | WOUNDCONS_ITS ---
Date of service: 09/30/24 Time of Service: 21:04 Wound Initial Evaluation Narrative Narrative: Mio is a 58 year old male with an open wound on his right lower extremity. Mio was recently hospitalized for cellulitis, treated with IV antibiotics then transitioned to oral antibiotics and was discharged. While at home the patient reports following and completing the recommended antibiotic course and wound care, including elevating the extremity. Mio returned to the ED today for worsening symptoms and was admitted for IV antibiotics. Mio has multiple comorbidities for increasing infection risk including: HTN, CAYDEN, COPD, chronic venous insufficiency (CVI), DM, h/o Endocarditis, IVDU, MSSA and tobacco use. The patient has a caregiver at home that is able to assist him with his medical regimen. Mio agreed to the wound consult and initialed the consent form for a wound photo. Allergies known are penicillins and hydrocodone. The patient BMI is 25.1. This group underwriter reviewed the H&P, recent VS including the BP of 187/89 and temp of 36.7, recent lab work including ESR36, CRP 5.72, WBC 6.51. Body Four View: 2 1. Right lower extremity open area Wound Right Lower Leg: Wound Type: Stasis Ulcer and Full Thickness Wound General Appearance: Reddened Wound Bed Greatest Portion: Red (Granulation) Wound Bed Lesser Portion: Yellow (Slough) Wound Surrounding Tissue Appearance: Bright Red and Shiny Percent of Wound Bed Granulated/Red: 80 Percent of Wound Bed Slough/Yellow: 20 Wound Length: 15 cm Wound Width: 12 cm Wound Drainage Amount: Minimal Wound Drainage Description: Bloody Wound Topical Solution/Irrigant: Other (Skintegrity wound cleanser) Wound Debridement Method: Gauze Wound Debridement Result: Yellow Sloughing Remains Circulation, Sensation, Motion Edema Degree: 1+ Peripheral Pulse Strength: Normal Skin Temperature: Warm Skin Color: Hyperpigmentation Pain Pain Description: Burning (with dependency and with dressing changes) Additional Other Comments: Mio reports leg pain worsens with dependency Wound Summary Wound Summary: Right lower extremity with hemosiderin staining associated with diagnosed chronic venous insufficiency. The open area measures 15cm long and 12cm wide. Photo Photo: Treatment/Dressing Change Dressing Types: ABD Pad, Kerlix (Gauze Roll) and Xeroform Dressing Comment: Xeroform used for base layer then ABD pad then loosely secured with Kerlix gauze roll Nutrition Education Reviewed Nutrition Education: Yes Note: Increased protein intake is recommended for optimum wound healing and Mio agreed to try liquid protein supplements to assist with his wound healing. Recomendation Recomendation:: Pre-medicate with prn pain relief prior to dressing change. Twice a day while cellulitis is clearing. Remove Kerlix, ABD pad and Xeroform dressings. Dampen gauze with wound cleanser and gently (as patient tolerates) cleanse yellow slough from wound. Replace Xeroform, ABD pad and wrap loosely with Kerlix for securement. When cellulitis clears once a day dressing change is adequate. Encourage the patient to keep the leg elevated while treatment is ongoing. Once the critical stage of redness has subsided and the patient is relatively pain free the patient should be assessed for compression bandaging. Physcian/Nurse Practioner Notified: Yes
[2024-10-01 02:52] VITALS: BP 183/101; PULSE 66; RESP 16; TEMP 36.6; O2SAT 98
[2024-10-01] MEDS: ceFAZolin 2 GM/50 ML BAG IVPB ×3 (06:07→22:07)
[2024-10-01] MEDS: Acetaminophen 500 MG TAB 1000 MG PO ×3 (06:11→17:46)
[2024-10-01 07:40] VITALS: BP 169/93; PULSE 72; RESP 16; TEMP 37; O2SAT 97
[2024-10-01] MEDS: Cyanocobalamin 500 MCG TAB 1000 MCG PO (08:00)
[2024-10-01] MEDS: Lactobacillus Acidophilus CAP 1 CAP PO ×3 (08:01→19:59)
[2024-10-01] MEDS: Aspirin E.C. 81 MG TABEC PO (08:02)
[2024-10-01] MEDS: Lisinopril 20 MG TAB 40 MG PO (08:02)
[2024-10-01] MEDS: amLODIPine 2.5 MG TAB PO (08:02)
[2024-10-01] MEDS: Gabapentin 600 MG TAB PO ×3 (08:02→19:59)
[2024-10-01] MEDS: DULoxetine 30 MG CAP PO ×2 (08:02→19:59)
[2024-10-01] MEDS: Esomeprazole 40 MG CAPCR PO (08:02)
[2024-10-01] MEDS: Enoxaparin 40 MG/0.4 ML SYR SC (08:03)
[2024-10-01] MEDS: Normal Saline Flush 10 ML SYR IVP ×3 (08:03→20:00)
[2024-10-01] MEDS: Buprenorphine/Naloxone 4 mg/1 mg FILM 2 EACH SL (08:03)
--- NOTE | 2024-10-01 08:35 | PDOC.CMIN ---
Date of service: 10/01/24 Time of Service: 16:22 Care Management Initial Assmt Initial Assessment Reason for Hospitalization: Right Lower Extremity Recurring Cellulitis Functional Status/Living Situation Patient Presentation: Mio was discharged from [facility] 09/26/24 after being treated for cellulitis and was sent home with RN services. He represented to the ER 09/30/24 with Cellulitis of the right leg. CM rquested a palliative consult to establish goals of care and offer an additional level of community support. Today, Mio was lying in bed and watching TV when CM arrived. He had a wound consult last night. Mio reports that he followed an completed the antibiotic course in which he was discharged home on. He states that his wound is painful; CM notified RN. Mio states he does not like that his healthcare team has to wear isolation attire. CM will continue to follow. Town of Residence: [place] Resides with: Other (Home caregiver Arline Graham through Chronicity) Significant Other/Family: Out of area (States there are no other family members) Caregiver/Guardian: /caregiver, Arline Vanegas Employment Status: Unemployed Instrumental Activities of Daily Living (ADLs): Requires support Medications Medication Management: No Issues/Barriers identified Physical Functioning/Mobility Assistive Device: FWW Advance Directives Advance Directives: Do you have an Advance Directive: Y 10/10/19, 10:02 AD On File at [facility]: N 18/13, 08:23 Date Asked 09/30/24 09/30/24, 07:56 AD Date Reviewed COLST On File at [facility] COLST Date Scanned Code Status Resuscitation Status Full Code Portal Pt does not currently have a portal and education provided: Yes Insurance Coverage/Financial Issues Insurance: [facility] no [facility] Care Team Visit Care Team Role Provider Type Trinity Henderson NP MD [facility] STAFF PHYSICIAN Evon Howard MD Primary Care Provider [facility] STAFF PHYSICIAN Tracy Castrejon MD Emergency Provider [facility] STAFF PHYSICIAN Chandler Melton MD Admit Provider [facility] STAFF PHYSICIAN Attending Provider Discharge Potential Discharge Needs: PCP F/U Appt Anticipated Barriers to Discharge: None Identified Patient/Family Education Needs: Review discharge instructions, discuss Ask Me Three Transportation: Private vehicle Plan: Anticipate Mio will return home once medically cleared. His caregiver, Arline, will drive him home via private vehicle. He will follow up with his PCP and discharge plan of care. CM will continue to follow. Social Determinants of Health Screening Social Determinants of health last assessed in clinic: 10/01/24 Will the Patient Participate in the Screening?: Yes Do you worry about having a steady place to live?: no Problems where you live: no known problems In the past 12 months, have you had to go without electric, gas, oil or water in your home?: no 1. Within the past 12 months, we worried whether our food would run out before we got money to buy more.: Never true 2. Within the past 12 months, the food we bought just didn't last and we didn't have money to get more.: Never true Has lack of transportation kept you from medical appointments or from doing things needed for daily living?: no Has anyone in your life made you feel unsafe or unsupported?: no How hard is it for you to pay for the very basics like food, housing, medical care, and heating? Would you say it is:: Not hard at all Do you want help finding or keeping work or a job?: I do not need or want help If for any reason you need help with day-to-day activities such as bathing, preparing meals, shopping, managing finances, etc., do you get the help you need?: I don?t need any help How often do you feel lonely or isolated from those around you?: Never Do you speak a language other than Belizean at home?: Yes Health Related Social Needs Health related social needs: education (Z55.6) Health related social needs details: ind at home, denies needs PFSH All Active Problems (Updated 09/30/24 @ 14:45 by Tracy Castrejon MD) Leg wound, right (Acute) Nicotine dependence (Acute) Hypertensive emergency (Acute) Hypertension (Chronic) Cellulitis of leg, right (Acute) Right middle lobe pneumonia (Acute) Hypoxia (Acute) Sepsis (Acute) Leukocytosis (Acute) Mild shortness of breath (Acute) Chest pain (Acute) Hypoxia (Acute) Recurrent apnea (Acute) Hypertensive emergency (Acute) Bilateral edema of lower extremity (Acute) Dyspnea (Acute) Right rotator cuff tear (Acute) Abnormal CT scan, kidney (Acute) Anxiety (Chronic) Medical non-compliance (Acute) Aragon esophagus (Acute) Opiate dependence (Chronic) managed on suboxone Medical History Obstructive sleep apnea Chronic venous insufficiency COPD (chronic obstructive pulmonary disease) Diabetic neuropathy Hx of deep venous thrombosis on Coumadin Diabetes mellitus Hypertension Cocaine abuse 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 S/P percutaneous endoscopic gastrostomy (PEG) tube placement History of ankle surgery S/P spinal surgery Family History Father No problems noted. Mother COPD (chronic obstructive pulmonary disease) Hypertension Diabetes Heart disease Sister Stroke Social History Smoking/Tobacco Use Status: Current every day Tobacco Type: cigarettes Years smoked: 44 Tobacco: How many years used: 40 Smoking risk assessment performed?: Yes Alcohol Intake: former Drug use: Daily Substance use type: marijuana and crack/cocaine Caregiver/Support person: Yes Household members: friend(s) Housing: house Number of Children: 0 number of grandchildren: 1 current occupation: Disabled Pets and animals: Yes Pets and animals: cat(s) Current gender identity: male What type of physical activity do you participate in: none Do you feel safe at home: Yes Do you feel safe in your relationship?: Yes Additional Social history: Lives with ex- Vanessa, who is his caregiver. Lives in private home. Readmission Within the Past 30 Days Yes or No: Yes Date of First Admission Date of 1st Admission: 09/24/24 Date of this Admission Date of Admission: 09/30/24 This admission was: Through ED Office Visit Since 1st Admission Have you seen your PCP in the office since discharge?: No Had an appointment Been Scheduled?: No Speicalist Appointments Have you seen any other specialist since your 1st Admission?: No I. Interview patient and/or Family Difficulty reaching your doctor or getting an office appt?: No Have you had trouble purchasing/ or taking medication?: No Have you had trouble with getting meals at home?: No Did you feel ready for discharge when you left the last time: Yes (mostly juliana) Were services received that you thought were set up on disch: Yes What services were received?: HH RN/PT Did you call your physician beore you came to the ED?: No Did your physician tell you to come in?: No How do you think you became sick enough to come back?: Failed outpatient treatment If the patient had a VNA ordered Did the patient have a VNA order?: Yes Did you call the VNA before you came?: No Did the VNA tell you to come to the hospital?: No Do you know if the VNA called your physician?: No ED visits How many ED visits in the past 12 months: 16 Assessment for Readmission Summary of readmission circumstances, based upon interviews: Patient failed outpatient treatment and was readmitted for cellulitis Anticipated HH Services Anticipated HH Services at Discharge [facility] Resumption,.
[2024-10-01 09:50] LABS: Abs Immature Grans 0.01 10^3/uL (0.0-0.06); HCT 42.3 % (40.0-50.0); HGB 13.6 g/dL (13.5-17.5); Immature Grans % 0.2 %; MCH 26.3 pg (27.0-33.0); MCHC 32.2 % (32.0-36.0); MCV 82 fL (80-95); MPV 9.4 fL (8.0-11.0); Platelet Count 343 10^3/uL (130-400); RBC 5.17 10^6/uL (4.36-5.78); RDW 15.4 % (11.8-14.1); RDW-SD 46.1 fL; WBC 5.62 10^3/uL (4.4-10.8)
[2024-10-01 10:15] LABS: ALT 10 U/L (16-63); AST 10 U/L (15-37); Albumin 3.1 g/dL (3.4-5.0); Alkaline Phosphatase 69 U/L (46-116); Anion Gap 6.8 mmol/L (3-11); BUN 25 mg/dL (7-18); Bilirubin, Total 0.3 mg/dL (0.2-1.0); C-Reactive Protein 2.37 mg/dL (<or=0.5); CO2 26.2 mmol/L (21.0-32.0); Calcium 8.8 mg/dL (8.5-10.1); Chloride 103 mmol/L (98-107); Estimated GFR 58.26 (mL/min/1.73m2); Glucose 154 mg/dL (74-106); Magnesium 2.0 mg/dL (1.8-2.4); Potassium 4.4 mmol/L (3.5-5.1); Sodium 136 mmol/L (136-145); Total Protein 7.6 g/dL (6.4-8.2)
[2024-10-01 11:07] VITALS: BP 153/85; PULSE 66; RESP 16; TEMP 36.9; O2SAT 97
[2024-10-01] MEDS: Spironolactone 25 MG TAB PO (11:18)
--- NOTE | 2024-10-01 13:14 | PHA.REVIEW2 ---
Pharmacy Admission Review Admission Clinical Review Admission Pharmacy Review: Leg wound, right (Acute) Penicillins Adverse Reaction (Severe, Verified 09/30/24 08:02) Vomiting hydrocodone Adverse Reaction (Intermediate, Verified 09/30/24 08:02) vomiting Resuscitation Status Full Code Height 5 ft 11 in Weight 81.7 kg Pharmacy Admission Review Renal Dosing Renal Dosing: BUN 25 mg/dL (7-18) H 10/01/24 09:41 Creatinine 1.4 mg/dL (0.70-1.30) H 10/01/24 09:41 Medications needing adjustments: Reviewed (CrCl 66 mL/min, BUN decreased from 30) List of meds needing interventions: Current medications are okay Anticoagulation Anticoagulation: Hgb 13.6 g/dL (13.5-17.5) 10/01/24 09:41 Hct 42.3 % (40.0-50.0) 10/01/24 09:41 Plt Count 343 10^3/uL (130-400) 10/01/24 09:41 Creatinine 1.4 mg/dL (0.70-1.30) H 10/01/24 09:41 DVT Prophylaxis: Reviewed Medications: Enoxaparin (40mg daily) Relevant Labs Relevant Labs: ESR 36 mm/hr (0-20) H 09/30/24 08:15 Sodium 136 mmol/L (136-145) 10/01/24 09:41 Potassium 4.4 mmol/L (3.5-5.1) 10/01/24 09:41 Chloride 103 mmol/L (98-107) 10/01/24 09:41 Magnesium 2.0 mg/dL (1.8-2.4) 10/01/24 09:41 C-Reactive Protein 2.37 mg/dL (<or=0.5) H 10/01/24 09:41 Electrolytes, C-Reactive P, ESR: Reviewed Cardiac Review Cardiac Review: Troponin I 15 ng/L (<or=76) 09/30/24 12:55 Blood Pressure 153/85 1107 Blood Pressure 169/93 0740 Blood Pressure 183/101 0252 BP, HR, EF%: Reviewed (HR WNL) List meds needing interventions: Has orders for amlodipine 2.5mg daily, clonidine 0.1mg patch, lisinopril 20mg daily and spironolactone 25mg daily QTc Review QTc: Reviewed (421 from 09/24/24) IV to PO Switch IV Medications: Reviewed (cefazolin) Home Meds Home Med List reviewed: Intervened Relevent Home Meds Not ordered & why?: Qvar (substituted with Asmanex per pharmacy protocol), clindamycin (has order for cefazolin), spironolactone Reached out to provider regarding spironolactone - provider added ordered Current Meds Current Medication Order Review: Intervened Comments: Changed IV ED access order Pharmacy Antibiotic Review Relevant Labs: Relevant Labs 10/01/24 09:41 C-Reactive Protein 2.37 H WBC 5.62 10^3/uL (4.4-10.8) 10/01/24 09:41 Temperature 36.9 C Temperature 37.0 C Temperature 36.6 C Microbiology 09/30/24 09:55 Blood Culture - Preliminary Blood NO GROWTH 24 HOURS 09/30/24 09:40 Blood Culture - Preliminary Blood NO GROWTH 24 HOURS Pharmacy Antibiotic Activity: C/S review and Reviewed, no change Comments: Patient is on cefazolin, day 1, for right lower extremity recurring cellulitis. Was recently discharged with 5 days of oral clindamycin but patient returned to ED with worsening symptoms per H+P.
[2024-10-01] MEDS: cloNIDine 0.1 MG PATCH TD (13:40)
[2024-10-01 15:15] VITALS: BP 139/78; PULSE 67; RESP 16; TEMP 36.2; O2SAT 97
--- NOTE | 2024-10-01 17:38 | PGE_ITS ---
Date of Service Date of service: 10/01/24 Time of Service: 17:38 Assessment and Plan Assessment and plan (1) Leg wound, right: Status: Acute Assessment and plan: Recurrent / worsening right lower extremity cellulitis ? failed recent oral clindamycin after hospital discharge. Chronic venous stasis disease contributing to impaired wound healing. Multiple comorbidities increasing infection risk: diabetes, CHF, history of endocarditis, IVDU, tobacco use. IV Cephazolin 2 gm q8h IV; broaden coverage if clinical course worsens or cultures indicate. Daily wound assessment; wound care consult. Continue elevation of RLE; rosa elena erythema borders for monitoring. Monitor labs and cultures; adjust antibiotics per results. Continue home meds as appropriate; monitor renal function. Coordinate with surgery/vascular as previously planned. Smoking cessation counseling. Blood cx neg @ 24h Wound care per wound care nurse: Pre-medicate with prn pain relief prior to dressing change. Twice a day while cellulitis is clearing. Remove Kerlix, ABD pad and Xeroform dressings. Dampen gauze with wound cleanser and gently (as patient tolerates) cleanse yellow slough from wound. Replace Xeroform, ABD pad and wrap loosely with Kerlix for securement. When cellulitis clears once a day dressing change is adequate. Encourage the patient to keep the leg elevated while treatment is ongoing. Once the critical stage of redness has subsided and the patient is relatively pain free the patient should be assessed for compression bandaging. Acetaminophen for pain/fever. 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 ~ 4 sec Subjective Subjective Patient reports: no new complaints, feels better, pain is less, tolerating liquids well, tolerating a regular diet, voiding w/o difficulty, bowel movement and afebrile; denies flatus, diarrhea, nausea or vomiting Exam Narrative Exam Narrative: * General: Alert, oriented, no acute distress * Cardiac: RRR, no murmurs * Lungs: Clear to auscultation bilaterally * Abdomen: Soft, nontender, nondistended * Extremities: RLE with erythema, warmth, tenderness to palpation extending beyond prior marked borders; dressing with mild serous drainage; no fluctuance or purulent discharge noted. Chronic venous stasis changes present bilaterally. * Neuro: No new focal deficits; baseline right-sided weakness from prior CVA. Objective Last Vital Signs Temp 36.2 C L 10/01/24 15:15 Pulse 67 10/01/24 15:15 Resp 16 10/01/24 15:15 BP 139/78 10/01/24 15:15 Pulse Ox 97 10/01/24 15:15 Laboratory Results - last 24 hr 10/01/24 09:41 WBC 5.62 RBC 5.17 Hgb 13.6 Hct 42.3 MCV 82 MCH 26.3 L MCHC 32.2 RDW 15.4 H Plt Count 343 MPV 9.4 Immature Gran % 0.2 Neutrophils % 53.7 Lymphocytes % 28.8 Monocytes % 10.7 Eosinophils % 4.8 Basophils % 1.8 Nucleated RBC % 0.0 Absolute Neutrophils 3.02 Absolute Lymphocytes 1.62 Absolute Monocytes 0.60 Absolute Eosinophils 0.27 Absolute Basophils 0.10 Sodium 136 Potassium 4.4 Chloride 103 Carbon Dioxide 26.2 Anion Gap 6.8 BUN 25 H Creatinine 1.4 H Est GFR (CKD-EPI 2020) 58.26 Glucose 154 H Calcium 8.8 Magnesium 2.0 Total Bilirubin 0.3 AST 10 L ALT 10 L Alkaline Phosphatase 69 C-Reactive Protein 2.37 H Total Protein 7.6 Albumin 3.1 L Time Spent with Patient Time Spent with Patient: 25-34 minutes Time was spent: preparing to see the patient(eg.review tests), ordering medications,tests, procedures, referring, communicating with other health respiratory care technician, indepentently interpreting results, counseling the patient and care coordination
[2024-10-01 19:22] VITALS: BP 137/81; PULSE 69; RESP 19; TEMP 36.3; O2SAT 96
[2024-10-01 23:05] VITALS: BP 133/82; PULSE 72; RESP 17; TEMP 35.5; O2SAT 96
[2024-10-02 03:15] VITALS: BP 148/88; PULSE 67; RESP 19; TEMP 36.7; O2SAT 96
[2024-10-02] MEDS: ceFAZolin 2 GM/50 ML BAG IVPB ×3 (05:54→22:05)
[2024-10-02 07:04] LABS: Abs Immature Grans 0.01 10^3/uL (0.0-0.06); HCT 42.7 % (40.0-50.0); HGB 13.8 g/dL (13.5-17.5); Immature Grans % 0.2 %; MCH 26.5 pg (27.0-33.0); MCHC 32.3 % (32.0-36.0); MCV 82 fL (80-95); MPV 9.4 fL (8.0-11.0); Platelet Count 362 10^3/uL (130-400); RBC 5.20 10^6/uL (4.36-5.78); RDW 15.2 % (11.8-14.1); RDW-SD 45.5 fL; WBC 6.21 10^3/uL (4.4-10.8)
[2024-10-02 07:13] LABS: Anion Gap 7.0 mmol/L (3-11); BUN 23 mg/dL (7-18); C-Reactive Protein 1.11 mg/dL (<or=0.5); CO2 27.0 mmol/L (21.0-32.0); Calcium 9.1 mg/dL (8.5-10.1); Chloride 104 mmol/L (98-107); Estimated GFR 63.68 (mL/min/1.73m2); Glucose 124 mg/dL (74-106); Magnesium 2.0 mg/dL (1.8-2.4); Potassium 4.4 mmol/L (3.5-5.1); Sodium 138 mmol/L (136-145)
[2024-10-02 07:33] VITALS: BP 146/94; PULSE 77; RESP 16; TEMP 37.1; O2SAT 96
[2024-10-02] MEDS: Buprenorphine/Naloxone 4 mg/1 mg FILM 2 EACH SL (07:44)
[2024-10-02] MEDS: Esomeprazole 40 MG CAPCR PO (07:45)
[2024-10-02] MEDS: DULoxetine 30 MG CAP PO ×2 (07:45→20:31)
[2024-10-02] MEDS: Aspirin E.C. 81 MG TABEC PO (07:45)
[2024-10-02] MEDS: Lisinopril 20 MG TAB 40 MG PO (07:45)
[2024-10-02] MEDS: Spironolactone 25 MG TAB PO (07:45)
[2024-10-02] MEDS: Lactobacillus Acidophilus CAP 1 CAP PO ×3 (07:45→20:32)
[2024-10-02] MEDS: Acetaminophen 500 MG TAB 1000 MG PO ×2 (07:45→18:13)
[2024-10-02] MEDS: amLODIPine 2.5 MG TAB PO (07:46)
[2024-10-02] MEDS: Gabapentin 600 MG TAB PO ×3 (07:46→20:31)
[2024-10-02] MEDS: Normal Saline Flush 10 ML SYR IVP ×3 (07:46→20:32)
[2024-10-02] MEDS: Enoxaparin 40 MG/0.4 ML SYR SC (07:47)
[2024-10-02] MEDS: Nicotine 21 MG/24 HR PATCH TD (07:55)
[2024-10-02] MEDS: Cyanocobalamin 500 MCG TAB 1000 MCG PO (07:56)
--- NOTE | 2024-10-02 09:36 | CMPROGNOTE_ITS ---
Date of service: 10/02/24 Time of Service: 11:48 Care Management Progress Note Progress Note Text Progress Note Text: Mio was lying in bed and watching TV when CM arrived. Per report, his precautions may be discontinued; Mio states he is happy about this. At the provider's request, CM contacted the patient's primary care provider office to inquire about any history of a vascular workup. According to the PCP's office, the patient has not undergone a vascular workup. However, a vascular surgery consultation was previously ordered but was never completed, as attempts to contact the patient were unsuccessful. Mio requested Arline's contact phone number; CM was able to provide him with the contact listed in his chart. CM will continue to follow. Discharge Potential Discharge Needs: PCP F/U Appt Anticipated Barriers to Discharge: Medical Status Patient/Family Education Needs: Review discharge instructions, discuss Ask Me Three Transportation: Private vehicle Plan: Anticipate Mio will return home with a resumption of RN, and new PT/OT/DIRECTOR TEEN POST once medically cleared. His caregiver, Arline, will drive him home via private vehicle. He will follow up with his PCP and discharge plan of care. Mio has not had a vascular work up at this time. CM will continue to follow. Social Determinants of Health Screening Social Determinants of health last assessed in clinic: 10/02/24 Will the Patient Participate in the Screening?: Yes Do you worry about having a steady place to live?: no Problems where you live: no known problems In the past 12 months, have you had to go without electric, gas, oil or water in your home?: no 1. Within the past 12 months, we worried whether our food would run out before we got money to buy more.: Never true 2. Within the past 12 months, the food we bought just didn't last and we didn't have money to get more.: Never true Has lack of transportation kept you from medical appointments or from doing things needed for daily living?: no Has anyone in your life made you feel unsafe or unsupported?: no How hard is it for you to pay for the very basics like food, housing, medical care, and heating? Would you say it is:: Not hard at all Do you want help finding or keeping work or a job?: I do not need or want help If for any reason you need help with day-to-day activities such as bathing, preparing meals, shopping, managing finances, etc., do you get the help you need?: I don?t need any help How often do you feel lonely or isolated from those around you?: Never Do you speak a language other than Amharic at home?: Yes Health Related Social Needs Health related social needs: education (Z55.6) Health related social needs details: ind at home, denies needs Anticipated HH Services Anticipated HH Services at Discharge [facility].
[2024-10-02 11:04] VITALS: BP 145/89; PULSE 75; RESP 16; TEMP 36.6; O2SAT 96
[2024-10-02] MEDS: traMADol 50 MG TAB 100 MG PO ×2 (11:22→19:03)
[2024-10-02 14:52] VITALS: BP 130/80; PULSE 77; RESP 16; TEMP 35.7; O2SAT 97
--- NOTE | 2024-10-02 16:20 | W.PM.PROGNOT ---
Date of Service Date of service: 10/02/24 Time of Service: 16:20 Assessment and Plan Assessment and plan (1) Leg wound, right: Status: Acute Assessment and plan: Recurrent / worsening right lower extremity cellulitis ? failed recent oral clindamycin after hospital discharge. Chronic venous stasis disease contributing to impaired wound healing. Multiple comorbidities increasing infection risk: diabetes, CHF, history of endocarditis, IVDU, tobacco use. IV Cephazolin 2 gm q8h IV; broaden coverage if clinical course worsens or cultures indicate. Daily wound assessment; wound care consult. Continue elevation of RLE; marked erythema borders for monitoring. Monitor labs and cultures; adjust antibiotics per results. BC neg x 48h Wound cx pending Continue home meds as appropriate; monitor renal function. Coordinate with surgery/vascular as previously planned. Smoking cessation counseling. Blood cx neg @ 48h Wound care per wound care nurse: Pre-medicate with prn pain relief prior to dressing change. Twice a day while cellulitis is clearing. Remove Kerlix, ABD pad and Xeroform dressings. Dampen gauze with wound cleanser and gently (as patient tolerates) cleanse yellow slough from wound. Replace Xeroform, ABD pad and wrap loosely with Kerlix for securement. When cellulitis clears once a day dressing change is adequate. Encourage the patient to keep the leg elevated while treatment is ongoing. Once the critical stage of redness has subsided and the patient is relatively pain free the patient should be assessed for compression bandaging. Acetaminophen for pain/fever. 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 Concerned about going home because he can't find his caregiver. Not interested in SNF. Exam Narrative Exam Narrative: General: Alert, oriented, no acute distress Cardiac: RRR, no murmurs Lungs: Clear to auscultation bilaterally Abdomen: Soft, nontender, nondistended Extremities: RLE with erythema, warmth, tenderness to palpation now below marked borders; dressing with mild serous drainage; no fluctuance or purulent discharge noted. Chronic venous stasis changes present bilaterally. 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 Objective Last Vital Signs Temp 35.7 C L 10/02/24 14:52 Pulse 77 10/02/24 14:52 Resp 16 10/02/24 14:52 BP 130/80 10/02/24 14:52 Pulse Ox 97 10/02/24 14:52 Laboratory Results - last 24 hr 10/02/24 06:45 WBC 6.21 RBC 5.20 Hgb 13.8 Hct 42.7 MCV 82 MCH 26.5 L MCHC 32.3 RDW 15.2 H Plt Count 362 MPV 9.4 Immature Gran % 0.2 Neutrophils % 59.7 Lymphocytes % 22.9 Monocytes % 10.0 Eosinophils % 5.3 Basophils % 1.9 Nucleated RBC % 0.0 Absolute Neutrophils 3.71 Absolute Lymphocytes 1.42 Absolute Monocytes 0.62 Absolute Eosinophils 0.33 Absolute Basophils 0.12 Sodium 138 Potassium 4.4 Chloride 104 Carbon Dioxide 27.0 Anion Gap 7.0 BUN 23 H Creatinine 1.3 Est GFR (CKD-EPI 2020) 63.68 Glucose 124 H Calcium 9.1 Magnesium 2.0 C-Reactive Protein 1.11 H Time Spent with Patient Time Spent with Patient: 25-34 minutes Time was spent: preparing to see the patient(eg.review tests), ordering medications,tests, procedures, referring, communicating with other health direct support professional caregiver, indepentently interpreting results, counseling the patient and care coordination
[2024-10-02 19:48] VITALS: BP 146/90; RESP 20; TEMP 36.3; O2SAT 94
[2024-10-03] MEDS: Acetaminophen 500 MG TAB 1000 MG PO ×3 (04:30→21:50)
[2024-10-03] MEDS: ceFAZolin 2 GM/50 ML BAG IVPB ×3 (06:00→21:50)
--- NOTE | 2024-10-03 06:24 | W.PM.PROGNOT ---
Date of Service Date of service: 10/03/24 Time of Service: 14:51 Assessment and Plan Assessment and plan (1) Leg wound, right: Status: Acute Assessment and plan: Recurrent / worsening right lower extremity cellulitis ? failed recent oral clindamycin after hospital discharge. Chronic venous stasis disease contributing to impaired wound healing. Multiple comorbidities increasing infection risk: diabetes, CHF, history of endocarditis, IVDU, tobacco use. Ongoing IV Cephazolin 2 gm q8h IV Daily wound assessment; wound care consult. Continue elevation of RLE; marked erythema borders for monitoring. Monitor labs and cultures; adjust antibiotics per results. BC neg x 48h Wound cx pending Continue home meds as appropriate; monitor renal function. Coordinate with surgery/vascular as previously planned. Smoking cessation counseling. Blood cx neg @72 H Woun Cx -no growth at 24 H ONgoing wound care per wound care nurse: Pre-medicate for pain prior to dressing change. Ongoing BID while cellulitis is clearing then daily Remove Kerlix, ABD pad and Xeroform dressings. Dampen gauze with wound cleanser and gently (as patient tolerates) cleanse yellow slough from wound. Replace Xeroform, ABD pad and wrap loosely with Kerlix for securement. Ongoing leg elevation -encourage the patient to keep the leg elevated s/p d/c Once the critical stage of redness has subsided and the patient is relatively pain free the patient should be assessed for compression bandaging. Acetaminophen for pain/fever. Failed to f/u with surgery on 09/30 d/t sharp - stabbing pain on ambulation -CTA run-off -[facility] [place] vascular consult placed ( referral from 2023 close as [facility] [place] could not reach the patient (2) Hypertension: Status: Chronic Assessment and plan: hemodynamically stable Ongoing lisinopril (3) Opiate dependence: Status: Chronic Assessment and plan: Stable on home dose suboxone (4) COPD (chronic obstructive pulmonary disease): Assessment and plan: Stable Continue home meds (5) Chronic venous insufficiency: Assessment and plan: PPPX 4 continue outpatient f/u (6) On deep vein thrombosis (DVT) prophylaxis: Status: Acute Assessment and plan: On LMWH Discussed with Dr. Melton Subjective Subjective Patient reports: no new complaints, feels better, pain is less, tolerating liquids well, tolerating a regular diet, voiding w/o difficulty, flatus, no bowel movement and other (chills); denies diarrhea, nausea, vomiting, shortness of breath or fever Exam Narrative Exam Narrative: Alert and oriented X3 , no acute distress, no acute neurological deficit but right-sided weakness from previous stroke, clear lungs, S1, S2 regular no murmur, PPP X4, abd is non-distended soft and non-tender, no CVA tenderness, RLE w chronic discoloration, wound to anterior R tibial aspect improved, no R ankle and R foot wound seen at this time - dressing DCI Ongoing skin discoloration to LLE no opened wound Psych Mental Status: mental status grossly normal Speech and Movement: pressured speech Mood: congruent mood Affect: normal affect and anxious affect Objective Last Vital Signs Temp 36.3 C L 10/02/24 19:48 Pulse 77 10/02/24 14:52 Resp 20 10/02/24 19:48 BP 146/90 H 10/02/24 19:48 Pulse Ox 94 10/02/24 19:48 Laboratory Results - last 24 hr 10/02/24 06:45 WBC 6.21 RBC 5.20 Hgb 13.8 Hct 42.7 MCV 82 MCH 26.5 L MCHC 32.3 RDW 15.2 H Plt Count 362 MPV 9.4 Immature Gran % 0.2 Neutrophils % 59.7 Lymphocytes % 22.9 Monocytes % 10.0 Eosinophils % 5.3 Basophils % 1.9 Nucleated RBC % 0.0 Absolute Neutrophils 3.71 Absolute Lymphocytes 1.42 Absolute Monocytes 0.62 Absolute Eosinophils 0.33 Absolute Basophils 0.12 Sodium 138 Potassium 4.4 Chloride 104 Carbon Dioxide 27.0 Anion Gap 7.0 BUN 23 H Creatinine 1.3 Est GFR (CKD-EPI 2020) 63.68 Glucose 124 H Calcium 9.1 Magnesium 2.0 C-Reactive Protein 1.11 H Time Spent with Patient Time Spent with Patient: >50 minutes Time was spent: preparing to see the patient(eg.review tests), obtaining and/or reviewing separately otained hiistory, ordering medications,tests, procedures, referring, communicating with other health insurance healthcare consultant, indepentently interpreting results, counseling the patient and care coordination
[2024-10-03 06:48] LABS: Abs Immature Grans 0.02 10^3/uL (0.0-0.06); HCT 43.6 % (40.0-50.0); HGB 14.0 g/dL (13.5-17.5); Immature Grans % 0.3 %; MCH 26.6 pg (27.0-33.0); MCHC 32.1 % (32.0-36.0); MCV 83 fL (80-95); MPV 8.9 fL (8.0-11.0); Platelet Count 345 10^3/uL (130-400); RBC 5.26 10^6/uL (4.36-5.78); RDW 15.3 % (11.8-14.1); RDW-SD 46.3 fL; WBC 5.89 10^3/uL (4.4-10.8)
[2024-10-03 07:11] VITALS: BP 158/83; PULSE 64; RESP 20; TEMP 37.3; O2SAT 97
[2024-10-03] MEDS: Buprenorphine/Naloxone 4 mg/1 mg FILM 2 EACH SL (07:34)
[2024-10-03] MEDS: Enoxaparin 40 MG/0.4 ML SYR SC (07:34)
[2024-10-03] MEDS: DULoxetine 30 MG CAP PO ×2 (07:35→20:14)
[2024-10-03] MEDS: traMADol 50 MG TAB 100 MG PO ×2 (07:35→13:12)
[2024-10-03] MEDS: Lactobacillus Acidophilus CAP 1 CAP PO ×3 (07:36→20:14)
[2024-10-03] MEDS: Cyanocobalamin 500 MCG TAB 1000 MCG PO (07:36)
[2024-10-03] MEDS: Nicotine 21 MG/24 HR PATCH TD (07:36)
[2024-10-03] MEDS: amLODIPine 2.5 MG TAB PO (07:36)
[2024-10-03] MEDS: Aspirin E.C. 81 MG TABEC PO (07:36)
[2024-10-03] MEDS: Gabapentin 600 MG TAB PO ×3 (07:36→20:14)
[2024-10-03] MEDS: Lisinopril 20 MG TAB 40 MG PO (07:37)
[2024-10-03] MEDS: Spironolactone 25 MG TAB PO (07:37)
[2024-10-03] MEDS: Normal Saline Flush 10 ML SYR IVP ×3 (07:37→20:14)
[2024-10-03] MEDS: Esomeprazole 40 MG CAPCR PO (07:38)
[2024-10-03 08:00] VITALS: O2SAT 95
--- NOTE | 2024-10-03 08:11 | W.NUTRFU ---
Date of service: 10/03/24 Time of Service: 08:11 Nutrition Note NOTE: MR Codey known to me from prior admissions. He is being treated for R leg cellulitis and has a pmh significant for HTN, Barretts esophagus, on-going tobacco use and etoh and substance abuse. A1c 6.2% 09/24/04. Has been eating very well this admission with double portions of some entrees like shepards pie last night. Has been offered some wound support with various ONS but dislikes and declines most of them outside of chocolate Boost drinks. will cotinue these TID for an additional 60 protein Denies recent significant weight changes, problems chewing/swallowing. to support wound healing would recommend 500mg vitamin C BID, 2,000IU vitamin D3 per day, and 220mg Zinc sulfate. Will monitor Mio's po intake, weight, nutrition related labs. Time Spent in Nutritional Counseling and Treatment: 10 min
[2024-10-03 08:53] LABS: Anion Gap 9.4 mmol/L (3-11); BUN 27 mg/dL (7-18); C-Reactive Protein 0.56 mg/dL (<or=0.5); CO2 26.6 mmol/L (21.0-32.0); Calcium 9.3 mg/dL (8.5-10.1); Chloride 104 mmol/L (98-107); Estimated GFR 53.63 (mL/min/1.73m2); Glucose 143 mg/dL (74-106); Magnesium 2.3 mg/dL (1.8-2.4); Potassium 4.7 mmol/L (3.5-5.1); Sodium 140 mmol/L (136-145)
--- NOTE | 2024-10-03 09:45 | DI.CT_ITS ---
Exam(s) CT ABD AORTA CTA W RUNOFF EXAM: CT ABD AORTA CTA W RUNOFF CLINICAL HISTORY: R LE cellulitis chronic wound- PAD. TECHNIQUE: Imaging Protocol: Axial CT angiography was performed with multi- slice acquisition and multi-planar and/or 3D reconstructions. CONTRAST MATERIAL: Intravenous: Omnipaque 350 Contrast volume:150 ml Contrast route:IV - Oral: no COMPARISON: CT CT THORAX ABD/PEL CTA from 07/03/[address] LOWER EXTREMITY RT W from 09/30/2024 FINDINGS: The exam is limited by patient motion. There is some streak artifact from patient arm positioning. Vascular Structures: Heart: Normal size. Coronary artery calcifications. Abdomen: Celiac [place]: No significant stenosis. SMA: No significant stenosis. Renal Arteries: No significant stenosis. There is a single renal artery perfusing each kidney. Aorta: No aneurysm. No dissection. Oxbo-ly-ifefgeyt atherosclerotic calcifications. No significant stenosis. Pelvis: Iliac Arteries: Mild atherosclerotic calcifications. No significant stenosis. Common Femoral Arteries: No significant stenosis. Lower extremities: Right: Common Femoral: No significant stenosis. Superficial Femoral: No significant stenosis. Popliteal: No significant stenosis. Knee Trifurcation: Minimal calcification. No significant stenosis. Posterior Tibial: No significant stenosis. Peroneal: No significant stenosis. Soft tissues: Metallic density again noted in the lateral right lower leg. There is again some soft tissue edema in the lateral aspect of the right lower leg and foot. No evidence of abscess or other fluid collection. Left: Common Femoral: No significant stenosis. Superficial Femoral: No significant stenosis. Popliteal: No significant stenosis. Knee Trifurcation: Minimal calcification. No significant stenosis. Posterior Tibial: No significant stenosis. Peroneal: No significant stenosis. Soft Tissues: Lungs: No acute findings. Liver: Multiple calcifications. No measurable mass. Gallbladder and biliary tract: No radiodense calculus or dilation. Pancreas: Normal density, no abnormal calcifications or inflammatory process. Spleen: Multiple calcifications. Normal size. Kidneys: Normal size and axis. Multiple small areas of scarring are noted bilaterally. No radiodense stones or obstructive uropathy. No masses seen. Adrenal glands: No masses seen. Aorta: Abdominal portion non-dilated. Bladder: Symmetric distention, no gross wall thickening. Bowel: No obstruction or bowel wall thickening. Peritoneal cavity: No ascites, collection or mesenteric inflammatory response. Bones: Within normal limits for age. Reproductive: Unremarkable. IMPRESSION: No significant stenosis or aneurysm. No evidence of vascular occlusion. No acute abnormality in the abdomen or pelvis. Right lower extremity cellulitis RADIATION DOSE DELIVERED: 909.61mGy.cm Total DLP DATA REPOSITORY: All CT scans at this facility are submitted to the National Radiology Data Registry (NRDR) Dose Index Registry (DIR) with the [employer] (ACR). RADIATION OPTIMIZATION: All CT scans at this facility use at least one of these dose optimization techniques: automated exposure control; mA and/or kV adjustment per patient size (includes targeted exams where dose is matched to clinical indication); or iterative reconstruction.
[2024-10-03] MEDS: Normal Saline - Diluent 50 ML VIAL IJ ×2 (10:24→10:27)
[2024-10-03] MEDS: Omnipaque 350 MG/ML 500 ML BTL-Imaging package IJ (10:24)
--- NOTE | 2024-10-03 10:26 | PDOC.CMPRO ---
Date of service: 10/03/24 Time of Service: 10:26 Care Management Progress Note Progress Note Text Progress Note Text: Mio was observed sitting up in bed and awake when CM met with him. He reported that he continues to experience significant pain in his leg, which he feels has increased. Mio identified his primary health care goal prior to discharge as achieving adequate pain management for his leg. He expressed hope for proper healing of the leg and demonstrated awareness that smoking may impede the healing process. Patient reported that he has not smoked in the past seven days and would like to be discharged with nicotine patches to support his efforts to quit smoking. Per report, a wound care consultation is scheduled for later today. Mio also shared that he was able to contact Arline yesterday. CM will continue to follow. 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 His caregiver, Arline, will drive him home via private vehicle. He will follow up with his PCP and discharge plan of care. Mio has not had a vascular work up at this time. CM will continue to follow. Social Determinants of Health Screening Social Determinants of health last assessed in clinic: 10/03/24 Will the Patient Participate in the Screening?: Yes Do you worry about having a steady place to live?: no Problems where you live: no known problems In the past 12 months, have you had to go without electric, gas, oil or water in your home?: no 1. Within the past 12 months, we worried whether our food would run out before we got money to buy more.: Never true 2. Within the past 12 months, the food we bought just didn't last and we didn't have money to get more.: Never true Has lack of transportation kept you from medical appointments or from doing things needed for daily living?: no Has anyone in your life made you feel unsafe or unsupported?: no How hard is it for you to pay for the very basics like food, housing, medical care, and heating? Would you say it is:: Not hard at all Do you want help finding or keeping work or a job?: I do not need or want help If for any reason you need help with day-to-day activities such as bathing, preparing meals, shopping, managing finances, etc., do you get the help you need?: I don?t need any help How often do you feel lonely or isolated from those around you?: Never Do you speak a language other than Kittitian at home?: Yes Health Related Social Needs Health related social needs: education (Z55.6) Health related social needs details: ind at home, denies needs
[2024-10-03 12:11] VITALS: BP 148/78; PULSE 73; RESP 22; TEMP 37.3; O2SAT 95
[2024-10-03] MEDS: Docusate Sodium 100 MG CAP PO ×2 (16:28→20:14)
[2024-10-03 16:59] VITALS: BP 145/67; PULSE 68; RESP 22; TEMP 37.5; O2SAT 97
[2024-10-03 23:33] VITALS: BP 131/71; PULSE 77; RESP 18; TEMP 36.2; O2SAT 95
[2024-10-04 03:42] VITALS: BP 131/91; PULSE 77; RESP 17; TEMP 36.5; O2SAT 97
[2024-10-04] MEDS: ceFAZolin 2 GM/50 ML BAG IVPB (06:01)
[2024-10-04] MEDS: Enoxaparin 40 MG/0.4 ML SYR SC (08:01)
[2024-10-04] MEDS: Nicotine 21 MG/24 HR PATCH TD (08:02)
[2024-10-04] MEDS: Buprenorphine/Naloxone 4 mg/1 mg FILM 2 EACH SL (08:02)
[2024-10-04] MEDS: Lisinopril 20 MG TAB 40 MG PO (08:02)
[2024-10-04] MEDS: Cyanocobalamin 500 MCG TAB 1000 MCG PO (08:02)
[2024-10-04] MEDS: DULoxetine 30 MG CAP PO (08:03)
[2024-10-04] MEDS: Acetaminophen 500 MG TAB 1000 MG PO (08:03)
[2024-10-04] MEDS: Lactobacillus Acidophilus CAP 1 CAP PO ×2 (08:03→14:31)
[2024-10-04] MEDS: Spironolactone 25 MG TAB PO (08:03)
[2024-10-04] MEDS: Esomeprazole 40 MG CAPCR PO (08:03)
[2024-10-04] MEDS: Aspirin E.C. 81 MG TABEC PO (08:03)
[2024-10-04 08:04] VITALS: BP 137/89; PULSE 69; RESP 16; TEMP 37.2; O2SAT 98
[2024-10-04] MEDS: Gabapentin 600 MG TAB PO ×2 (08:04→14:31)
[2024-10-04] MEDS: amLODIPine 2.5 MG TAB PO (08:04)
[2024-10-04] MEDS: Normal Saline Flush 10 ML SYR IVP (08:04)
--- NOTE | 2024-10-04 09:25 | PDOC.CMPRO ---
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 His caregiver, Arline, will drive him home via private vehicle. He will follow up with his PCP and discharge plan of care. Mio has not had a vascular work up at this time. CM will continue to follow. Social Determinants of Health Screening Social Determinants of health last assessed in clinic: 10/03/24 Will the Patient Participate in the Screening?: Yes Do you worry about having a steady place to live?: no Problems where you live: no known problems In the past 12 months, have you had to go without electric, gas, oil or water in your home?: no Has lack of transportation kept you from medical appointments or from doing things needed for daily living?: no Has anyone in your life made you feel unsafe or unsupported?: no How hard is it for you to pay for the very basics like food, housing, medical care, and heating? Would you say it is:: Not hard at all Do you want help finding or keeping work or a job?: I do not need or want help If for any reason you need help with day-to-day activities such as bathing, preparing meals, shopping, managing finances, etc., do you get the help you need?: I don?t need any help How often do you feel lonely or isolated from those around you?: Never Do you speak a language other than Thai at home?: Yes Health Related Social Needs Health related social needs: education (Z55.6) Health related social needs details: ind at home, denies needs
--- NOTE | 2024-10-04 09:37 | W.PM.PROGNOT ---
Date of Service Date of service: 10/04/24 Time of Service: 09:37 Assessment and Plan Assessment and plan (1) Leg wound, right: Status: Acute Assessment and plan: Recurrent / worsening right lower extremity cellulitis ? failed recent oral clindamycin after hospital discharge. Chronic venous stasis disease contributing to impaired wound healing. Multiple comorbidities increasing infection risk: diabetes, CHF, history of endocarditis, IVDU, tobacco use. Ongoing IV Cephazolin 2 gm q8h IV Daily wound assessment; wound care consult. Continue elevation of RLE; marked erythema borders for monitoring. Monitor labs and cultures; adjust antibiotics per results. BC neg x 48h Wound cx pending Continue home meds as appropriate; monitor renal function. Coordinate with surgery/vascular as previously planned. Smoking cessation counseling. Blood cx neg @72 H Woun Cx -no growth at 24 H ONgoing wound care per wound care nurse: Pre-medicate for pain prior to dressing change. Ongoing BID while cellulitis is clearing then daily Remove Kerlix, ABD pad and Xeroform dressings. Dampen gauze with wound cleanser and gently (as patient tolerates) cleanse yellow slough from wound. Replace Xeroform, ABD pad and wrap loosely with Kerlix for securement. Ongoing leg elevation -encourage the patient to keep the leg elevated s/p d/c Once the critical stage of redness has subsided and the patient is relatively pain free the patient should be assessed for compression bandaging. Acetaminophen for pain/fever. Failed to f/u with surgery on 09/30 d/t sharp - stabbing pain on ambulation -CTA run-off -[facility] [place] vascular consult placed ( referral from 2023 close as [facility] [place] could not reach the patient (2) Hypertension: Status: Chronic Assessment and plan: hemodynamically stable Ongoing lisinopril (3) Opiate dependence: Status: Chronic Assessment and plan: Stable on home dose suboxone (4) COPD (chronic obstructive pulmonary disease): Assessment and plan: Stable Continue home meds (5) Chronic venous insufficiency: Assessment and plan: PPPX 4 continue outpatient f/u (6) On deep vein thrombosis (DVT) prophylaxis: Status: Acute Assessment and plan: On LMWH Discussed with Dr. Melton Objective Last Vital Signs Temp 37.2 C 10/04/24 08:04 Pulse 69 10/04/24 08:04 Resp 16 10/04/24 08:04 BP 137/89 10/04/24 08:04 Pulse Ox 98 10/04/24 08:04
--- NOTE | 2024-10-04 10:08 | PT.INIE ---
PT Notes Visit Reasons: Right Lower Extremity Recurring Cellulitis Inpatient Physical Therapy Evaluation Date: 10/04/24 Referring Doctor: Kristin Mac PT Orders: PT CONSULT: safety consult Precautions: Contact precautions Patient Profile/Admitting Diagnosis: RLE recurring cellulitis and open wound Subjective: Pt admitted following worsening pain and cellulitis in his RLE. He has a wound on his anterior bruno on the right side that continues to give him a lot of problems. He was in the hospital last week with the same issue. He states he had a stroke about 4 years ago which effected his right side and speech. He lives with his ex- Arline who fully supports him. She cooks for him, helps him get dressed, and drives for him. He has a ramp to get into his house and lives on the first floor. He doesn't have to manage any stairs. He uses a RW at all times for mobility. He feels confident to go home today. Objective: General Observation: RLE wrapped, resting comfortably in his bed Mental Status: A+Ox4 Pain: pain in RLE especially when sitting up at EOB Vital Signs: BP 144/85, spO2 97%, HR 71 at end of session ROM: Right Upper Extremity: active shoulder flex limited to 80 degrees Left Upper Extremity: WNL Right Lower Extremity: WFL Left Lower Extremity: WFL Strength: Right Upper Extremity: grossly 3+/5 Left Upper Extremity: grossly 4/5 Right Lower Extremity: grossly 3+/5 Left Lower Extremity: grossly 4/5 Sensation: lacking sensation in RLE per patient Bed Mobility/Transfers: semi-supine to sitting w/SBA sitting to standing w/SBA standing to sitting w/SBA sitting to semi-supine w/SBA Gait: ambulates 40 ft w/RW and CGA - does note some lightheadedness at 30 ft that is relieved when sitting down Balance: Static Sitting: good Dynamic Sitting: good Static Standing: good Dynamic Standing: fair - requires UE support on RW Special Tests: Mobility Limitations Standardized Measure [facility] AM-PAC 6 clicks Basic Mobility Inpatient Short Form: Raw Score: 19 CMS Score: 41.47% Informed Consent/Education: Patient instructed in purpose of PT consult and plan of care. Assessment: Pt is currently functioning at his baseline and is safe to go home with home health services. He is limited at baseline due to his history of CVA. His RUE and RLE are weaker than his left side which has required him to ambulate with a RW. He had no bed mobility deficits that were observed today. He was able to stand up by himself. He did have some lightheadedness following about 30 ft of ambulation but his vitals were stable. He has a ramp and a RW at home. He is safe to return home today with family support and home health PT. Patient is assessed as a [x] Low [id number] complexity based on the following: History: Low Examination: Low Presentation: Low Decision Making: Low Goals: Goals not indicated at this time as patient is set to return home today. Plan of Care/Treatment Plan: No PT POC at this time DISCHARGE RECOMMENDATIONS: [x] Home with home health PT/OT/nursing TREATMENT CODE/TIME: Fish Lopez [id number] x1 - 22 min
--- NOTE | 2024-10-04 11:54 | CMDISCH_ITS ---
Date of service: 10/04/24 Time of Service: 11:54 LACE Index Scoring Tool Questions: Length of Stay (in days): 4 - 6 Was the patient admitted via the E.D.?: Yes E.D. Visits: 11 Answers: Total Score: 11 Risk of Readmission: High Risk Care Management Discharge Plan Reason for Hospitalization: Right Lower extremity Recurring cellulitis Discharge Plan: Mio will return home today with resumption of RN, add PT/OT/TEACHERS' ASSISTANT services. His caregiver, Arline, will drive him home via private vehicle and plans to be here around 4-4:30 this afternoon. Recommend follow up with community providers and continue per discharge plan of care. CM spoke with Arline via phone prior to discharge ([phone]) to advise new referral is being sent to [facility] [place] and follow up with Dr. Winslow from Surgical will also be needed following discharge to discuss graft. Patient/Family Education Needs: Review discharge instructions and plan to follow up after discharge. Discuss ask me three. Services Needed at Discharge: Home Health Care Services and Transportation (Caregiver will be today ) SDOH Health Related Social Needs: Health related social needs education Health related social needs details ind at home, denie s needs Health related social needs details: ind at home, denies needs
--- NOTE | 2024-10-04 12:28 | W.PALLCONSUL ---
Date of service: 10/04/24 Time of Service: 12:28 History of Present Illness Narrative: Mio Albert is a 58 year old man with a past medical history significant for opioid use disorder on Suboxone maintenance therapy, a history of endocarditis, and a recent admission for cellulitis and chronic wound/ulceration of the right lower extremity, s/p ABX therapy who presented back to the ED with increasing pain and redness and was admitted for IV ABX and wound care. He is feeling better than when he came into the ED. He reports his pain is 8/10. He went for a walk which exacerbated his pain. He is oriented to person, place and time. He is able to state that he has an infection in his RLE. He lives at home with Vanessa, paid caregiver and ex-. Vanessa helps him with all care. She makes his meals and he feeds himself. He chose Vanessa to be his HCA. He does not feel he has anyone to be Alternate agent. He thinks he might have AD at home but we do not have this on file here. Reviewed CODE STATUS. He is a FULL CODE. Assessment and Plan Assessment and plan (1) Leg wound, right: Status: Acute Assessment and plan: Recurrent / worsening right lower extremity cellulitis ? failed recent oral clindamycin after hospital discharge. Chronic venous stasis disease contributing to impaired wound healing. Multiple comorbidities increasing infection risk: diabetes, CHF, history of endocarditis, IVDU, tobacco use. He presented back for increasing pain and redness and was admitted for IV ABX and wound care. Blood cx NGTD Wound Cx - NGTD He will discharge home today. (2) Hypertension: Status: Chronic (3) Opiate dependence: Status: Chronic Assessment and plan: Stable on suboxone (4) COPD (chronic obstructive pulmonary disease): Assessment and plan: Stable (5) Chronic venous insufficiency: (6) Palliative care encounter: Status: Acute Assessment and plan: Mio Albert is a 58 year old man with a past medical history significant for opioid use disorder on Suboxone maintenance therapy, a history of endocarditis, and a recent admission for cellulitis and chronic wound/ulceration of the right lower extremity, s/p ABX therapy who presented back to the ED with increasing pain and redness and was admitted for IV ABX and wound care. He is feeling better than when he came into the ED. He reports his pain is 8/10. He went for a walk which exacerbated his pain. He is oriented to person, place and time. He is able to state that he has an infection in his RLE. He lives at home with Vanessa, paid caregiver and ex-. Vanessa helps him with all care. She makes his meals and he feeds himself. He chose Vanessa to be his HCA. He does not feel he has anyone to be Alternate agent. HCA documentation completed. He thinks he might have AD at home but we do not have this on file here. Reviewed CODE STATUS. He is a FULL CODE. He is open to F/u after discharge home. He would need a HV. Review of Systems Narrative: Feeling better than when he presented to the ED. He continues to have pain, increases with ambulation. His appetite is good, he is eating and drinking well. He denies N/V. PFSH All Active Problems (Updated 10/04/24 @ 13:50 by Destiny Hairstno NP) Palliative care encounter (Acute) On deep vein thrombosis (DVT) prophylaxis (Acute) Leg wound, right (Acute) Nicotine dependence (Acute) Hypertensive emergency (Acute) Hypertension (Chronic) Cellulitis of leg, right (Acute) Right middle lobe pneumonia (Acute) Hypoxia (Acute) Sepsis (Acute) Leukocytosis (Acute) Mild shortness of breath (Acute) Chest pain (Acute) Hypoxia (Acute) Recurrent apnea (Acute) Hypertensive emergency (Acute) Bilateral edema of lower extremity (Acute) Dyspnea (Acute) Right rotator cuff tear (Acute) Abnormal CT scan, kidney (Acute) Anxiety (Chronic) Medical non-compliance (Acute) Aragon esophagus (Acute) Opiate dependence (Chronic) managed on suboxone Medical History Obstructive sleep apnea Chronic venous insufficiency COPD (chronic obstructive pulmonary disease) Diabetic neuropathy Hx of deep venous thrombosis on Coumadin Diabetes mellitus Hypertension Cocaine abuse 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 S/P percutaneous endoscopic gastrostomy (PEG) tube placement History of ankle surgery S/P spinal surgery Family History Father No problems noted. Mother COPD (chronic obstructive pulmonary disease) Hypertension Diabetes Heart disease Sister Stroke Social History Smoking/Tobacco Use Status: Current every day Tobacco Type: cigarettes Years smoked: 44 Tobacco: How many years used: 40 Smoking risk assessment performed?: Yes Alcohol Intake: former Drug use: Daily Substance use type: marijuana and crack/cocaine Caregiver/Support person: Yes Household members: friend(s) Housing: house Number of Children: 0 number of grandchildren: 1 current occupation: Disabled Pets and animals: Yes Pets and animals: cat(s) Current gender identity: male What type of physical activity do you participate in: none Do you feel safe at home: Yes Do you feel safe in your relationship?: Yes Additional Social history: Lives with ex- Vanessa, who is his caregiver. Lives in private home. Exam Narrative Exam Narrative: General: very pleasant, middle aged, chronically ill appearing man, lying in bed with HOB elevated. He is awake, alert and oriented x4. He is in NAD. HEENT: normocephalic, atraumatic, EOMI, mmm Neck: supple Respiratory: respirations appear even and unlabored at rest and with talking. Ext: R sided weakness due to previous stroke. RLE elevated with dressing intact. Results Last Vital Signs Temp 37.2 C 10/04/24 08:04 Pulse 69 10/04/24 08:04 Resp 16 10/04/24 08:04 BP 137/89 10/04/24 08:04 Pulse Ox 98 10/04/24 08:04 Labs 10/03/24 06:15 10/03/24 06:15 Time Spent Time Spent with Patient Time Spent(min): 78
[2024-10-04] MEDS: traMADol 50 MG TAB 100 MG PO (12:49)
--- NOTE | 2024-10-04 14:24 | DSE_ITS ---
Date of service: 10/04/24 Time of Service: 14:25 DS: Diagnosis Discharge Diagnosis (1) Leg wound, right: Status: Acute (2) Hypertension: Status: Chronic (3) Opiate dependence: Status: Chronic (4) COPD (chronic obstructive pulmonary disease): (5) Chronic venous insufficiency: (6) Palliative care encounter: Status: Acute Discharge Plan Disposition Patient Disposition: Home W/Home Health Services Condition: Improving Discharge Details Reason For Visit: Right Lower Extremity Recurring Cellulitis Admit Date/Time: 09/30/24 12:20 Admit Provider: Chandler Melton Attending Provider: Chandler Melton Primary Care Provider: Evon Howard Hospital Course Hospital Course: 58-year-old male with extensive past medical history including IVDU, CHF, aortic valve replacement, endocarditis, DVT, diabetes, hypertension, COPD, and chronic venous insufficiency, who was discharged on 09/26/24 after hospitalization for right lower extremity cellulitis treated with IV antibiotics and transitioned to oral clindamycin for 5 days. Wound care and outpatient surgery follow-up were arranged at discharge. Blood cultures remained negative. Wound care consult was ordered but not completed during admission; outpatient follow-up was recommended as per surgical consult. Patient now presented on 09/30/24 to the ED via EMS , 4 days after discharge, with worsening RLE pain, swelling, and redness. Reports that symptoms worsened over the past 24 hours after completing his antibiotic course the day prior to presentation. No reports of fevers noted, but BP in the ED was around 198/[address] scan shows evidence of cellulitis but no abscess or other abnormality to explain the recurrence of the patient's symptoms. Patient stated that the area of redness has expanded beyond previously marked borders and pain has increased despite completing his clindamycin course with mild serous drainage from the wound dressing. Labs were unremarkable except for CRP at 5.72 and ESR at 20. Blood and wound cultures were completed and the patient was admitted to the medical surgical floor for RLE cellulitis. The patient was treated with IV cefazolin. Blood and wound cultures remained negative. Due to worsening pain on ambulation report, a CTA run off was complted and showed not PAD. Clonidine patch added to regimen for blood pressure control. [facility] [place] [place] vascular consultation completed [facility] Dr. Blas with recommendation for new referral for RLE venous insufficiency with correct phone number to reach the patient as previous referral was closed d/t the inability to reach the patient. Wound counsult completed with the following recommendations: Treatment/Dressing Change Dressing Types: ABD Pad, Kerlix (Gauze Roll) and Xeroform Dressing Comment: Xeroform used for base layer then ABD pad then loosely secured with Kerlix gauze roll Nutrition Education Reviewed Nutrition Education: Yes Note: Increased protein intake is recommended for optimum wound healing and Mio agreed to try liquid protein supplements to assist with his wound healing. Recomendation Recomendation:: Pre-medicate with prn pain relief prior to dressing change. Twice a day while cellulitis is clearing. Remove Kerlix, ABD pad and Xeroform dressings. Dampen gauze with wound cleanser and gently (as patient tolerates) cleanse yellow slough from wound. Replace Xeroform, ABD pad and wrap loosely with Kerlix for securement. When cellulitis clears once a day dressing change is adequate. Encourage the patient to keep the leg elevated while treatment is ongoing. Once the critical stage of redness has subsided and the patient is relatively pain free the patient should be assessed for compression bandaging. Referral completed for [facility] vascular and reinitiated for [facility] surgery and ex- spouse/ caregiver made aware. Follow-up with PCP within 7 days of discharge please. Prescription sent to listed pharmacy as listed below. The patient will be discharge home with resumption of RN and new PT, OT, and FULL TIME to ensure the completion of the vascular referral at [facility] as well as other follow-ups. Discussed with Dr. Melton Recommendations for Follow Up Recommended tests to be ordered by follow up provider: Evaluate need to continue clonidine patch, smoking cessation-nicotine patch ordered Home Meds and New Rx's Prescriptions: New tramadol 50 mg Tablet 50 mg PO Q6H PRN PRNQty: 20 0RF nicotine 21 mg/24 hr Patch 24 Hour 21 mg transdermal DAILY Qty: 28 0RF clonidine 0.1 mg/24 hr Patch Weekly 0.1 mg transdermal Q7D Qty: 4 0RF Rx Instructions: Started on 10/01/24. Renew as per PCP polyethylene glycol 3350 17 gram Powder In Packet 17 g PO DAILY Qty: 30 0RF cephalexin 500 mg Capsule 500 mg PO Q6H Qty: 24 0RF Bio-K plus 50 billion cell capsule,delayed release(DR/EC) 1 cap PO DAILY Qty: 10 0RF Rx Instructions: Take 3 hours apart from antibiotics , resume your regular probiotic regimen after finishing this docusate sodium [Colace] 100 mg capsule 100 mg PO BID Qty: 30 0RF Rx Instructions: Stop if you develop diarrhea. naloxone [Narcan] 4 mg/actuation spray,non-aerosol 1 spray intranasal Q3M Qty: 2 0RF Rx Instructions: spray 1 dose into ONE nostril; alternate nostrils w each dose until help arrives Continued esomeprazole magnesium [Nexium] 40 mg capsule,delayed release(DR/EC) 40 mg PO DAILY albuterol sulfate 90 mcg/actuation HFA aerosol inhaler 2 inh inhalation Q6H PRN aspirin 81 mg Tablet 81 mg PO DAILY duloxetine 30 mg Capsule,Delayed Release(Dr/Ec) 30 mg PO BID acetaminophen [Tylenol] 325 mg tablet 1,000 mg PO Q6H PRN cyanocobalamin (vitamin B-12) [Vitamin B-12] 1,000 mcg tablet 1,000 mcg PO DAILY Qvar RediHaler 80 mcg/actuation HFA aerosol breath activated 1 inh INHALATION BID PRN Patient Comments: INHALE ONE PUFF BY MOUTH TWICE A DAY NEEDED spironolactone 25 mg Tablet 25 mg PO DAILY Qty: 30 0RF amlodipine 2.5 mg tablet 2.5 mg PO DAILY Patient Comments: TAKE ONE TABLET BY MOUTH EVERY DAY gabapentin 600 mg tablet 600 mg PO TID Patient Comments: TAKE ONE TABLET BY MOUTH THREE TIMES A DAY lisinopril 40 mg tablet 40 mg PO DAILY Patient Comments: TAKE ONE TABLET BY MOUTH EVERY DAY buprenorphine-naloxone [Suboxone] 8-2 mg film 1 film sublingual DAILY Patient Comments: PLACE ONE FILM UNDER THE TONGUE EVERY DAY Held Lactobacillus acidophilus 500 million cell Capsule 500 mmu cells PO TID Qty: 30 0RF Hold Instructions: Resume on 10/11/24. Resume as per PCP Discontinued clindamycin HCl [Cleocin HCl] 150 mg capsule 450 mg PO TID Qty: 20 0RF Discharge Instructions Stand Alone Forms: Nursing Discharge Form Referrals: [facility] [Provider Group] Referral Note: Referral as per inpatient consult from 09/26/24:Expert from notes : There are wounds matrices and very xenograft which can be used on this wound, I do not think these are stocked here at our OR. Wound vacs can also be used, but I do not think these are available for home use either. Wound may be amenable to periodic and frequent outpatient clinic follow- up... [facility] [place] [OTHER, Surgery] Referral Note: RLE Chronic veinous insufficiency swelling, chronic recurrent cellulitis, pain, claudication, no PAD on CTA runoff. Referral sent. Evon Howard MD [Primary Care Provider, Medicine] Referral Note: Follow-up within 7 days of discharge. Left a voice mail for your PCP office to give you a call to set up a follow up appointment for within 1 to 2 weeks. Activity:: Activity as Tolerated Equipment/Supplies:: Walker Diet:: heart healthy diabetic Discharge Orders Discharge Orders: Discharge Order (Routine); Ordered 10/04/24 Ordered By: Kristin Mac DS: Summary Time Spent with Patient providing and/or coordinating discharge services: Greater than 30 minutes Status at Discharge Functional status at discharge: uses cane/walker Overall status at discharge: patient is progressing back to baseline Mental Status: mental status grossly normal Speech and Movement: pressured speech Mood: congruent mood Affect: normal affect and anxious affect Quality:SDOH Health Related Social Needs: Health related social needs education Health related social needs details ind at home, denie s needs Health related social needs details: ind at home, denies needs Exam Narrative Exam Narrative: Alert and oriented X3 , no acute distress, no acute neurological deficit but ongoing right-sided weakness from previous stroke, clear lungs, S1, S2 regular no murmur, PPP X4, abd is non-distended soft and non-tender, RLE w chronic discoloration, wound to anterior R tibial aspect improved compared to 09/26/24 and 09/30/24, no R ankle and R foot wound/redness seen at this time - dressing DCI Ongoing skin discoloration to LLE no opened wound. Psych Mental Status: mental status grossly normal Speech and Movement: pressured speech Mood: congruent mood Affect: normal affect and anxious affect DS: Data Vitals/I&O Vitals and I&O: Vital Signs Temperature 37.2 C 10/04/24 08:04 Temperature Source Temporal Artery Scan 10/04/24 08:04 Pulse 69 10/04/24 08:04 Pulse 64 09/30/24 12:01 Respiratory Rate 16 10/04/24 08:04 Respiratory Effort Normal 09/30/24 13:47 Respiratory Depth Normal 09/30/24 13:47 Respiratory Pattern Normal 09/30/24 13:47 Blood Pressure 137/89 10/04/24 08:04 Blood Pressure Mean 105 10/04/24 08:04 Pulse Oximetry 98 10/04/24 08:04 Oxygen Delivery Method Room Air 10/04/24 08:04 Oxygen Flow Rate 0 10/04/24 08:04 Pain Level 8 10/04/24 12:49 Comment PT refused vitals will get later. 10/03/24 19:22 Intake & Output 10/03/24 10/04/24 10/04/24 23:59 11:59 23:59 Intake Total 1920 / 2330 1070 / 1070 Output Total 3750 / 4750 500 / 950 450 / 950 Balance -1830 / -2420 570 / 120 -450 / 120 Intake: IV 100 / 150 50 / 50 Oral 1820 / 2180 1020 / 1020 Output: Urine 3750 / 4750 500 / 950 450 / 950 Other: Urine Color Yellow Yellow Yellow Urine Appearance Clear Clear Clear Urine Odor Normal None None Stool Size Large Stool Characteristics Soft Formed Data Completed and Pending Labs on day of discharge: Preliminary micro results at discharge 09/30/24 09:55 Blood Blood Culture - Preliminary NO GROWTH 96 HOURS 09/30/24 09:40 Blood Blood Culture - Preliminary NO GROWTH 96 HOURS 10/02/24 17:25 Leg - Right Lower Wound Culture - Preliminary PFSH All Active Problems (Updated 10/04/24 @ 13:50 by Destiny Hairston NP) Palliative care encounter (Acute) On deep vein thrombosis (DVT) prophylaxis (Acute) Leg wound, right (Acute) Nicotine dependence (Acute) Hypertensive emergency (Acute) Hypertension (Chronic) Cellulitis of leg, right (Acute) Right middle lobe pneumonia (Acute) Hypoxia (Acute) Sepsis (Acute) Leukocytosis (Acute) Mild shortness of breath (Acute) Chest pain (Acute) Hypoxia (Acute) Recurrent apnea (Acute) Hypertensive emergency (Acute) Bilateral edema of lower extremity (Acute) Dyspnea (Acute) Right rotator cuff tear (Acute) Abnormal CT scan, kidney (Acute) Anxiety (Chronic) Medical non-compliance (Acute) Aragon esophagus (Acute) Opiate dependence (Chronic) managed on suboxone Medical History Obstructive sleep apnea Chronic venous insufficiency COPD (chronic obstructive pulmonary disease) Diabetic neuropathy Hx of deep venous thrombosis on Coumadin Diabetes mellitus Hypertension Cocaine abuse 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 S/P percutaneous endoscopic gastrostomy (PEG) tube placement History of ankle surgery S/P spinal surgery Family History Father No problems noted. Mother COPD (chronic obstructive pulmonary disease) Hypertension Diabetes Heart disease Sister Stroke Social History Smoking/Tobacco Use Status: Current every day Tobacco Type: cigarettes Years smoked: 44 Tobacco: How many years used: 40 Smoking risk assessment performed?: Yes Alcohol Intake: former Drug use: Daily Substance use type: marijuana and crack/cocaine Caregiver/Support person: Yes Household members: friend(s) Housing: house Number of Children: 0 number of grandchildren: 1 current occupation: Disabled Pets and animals: Yes Pets and animals: cat(s) Current gender identity: male What type of physical activity do you participate in: none Do you feel safe at home: Yes Do you feel safe in your relationship?: Yes Additional Social history: Lives with ex- Vanessa, who is his caregiver. Lives in private home. Time Spent with Patient Time Spent with Patient: >85 minutes Time was spent: preparing to see the patient(eg.review tests), obtaining and/or reviewing separately otained hiistory, ordering medications,tests, procedures, referring, communicating with other health outdoor emergency care technician, indepentently interpreting results, counseling the patient and care coordination
[2024-10-04] MEDS: Cephalexin 500 MG CAP PO (14:39)
--- NOTE | 2024-10-04 15:45 | PDOC.HHF2F ---
Home Health Referral Home Health Orders Clinical synopsis of why skilled professionals are needed: 58-year-old male with extensive past medical history including IVDU, CHF, aortic valve replacement, endocarditis, DVT, diabetes, hypertension, COPD, and chronic venous insufficiency, who was discharged on 09/26/24 after hospitalization for right lower extremity cellulitis treated with IV antibiotics and transitioned to oral clindamycin for 5 days. Wound care and outpatient surgery follow-up were arranged at discharge. Blood cultures remained negative. Wound care consult was ordered but not completed during admission; outpatient follow-up was recommended as per surgical consult. Patient now presented on 09/30/24 to the ED via EMS , 4 days after discharge, with worsening RLE pain, swelling, and redness. Reports that symptoms worsened over the past 24 hours after completing his antibiotic course the day prior to presentation. No reports of fevers noted, but BP in the ED was around 198/[address] scan shows evidence of cellulitis but no abscess or other abnormality to explain the recurrence of the patient's symptoms Patient stated that the area of redness has expanded beyond previously marked borders and pain has increased despite completing his clindamycin course with mild serous drainage from the wound dressing. Labs were unremarkable except for CRP at 5.72 and ESR at 20. Blood and wound cultures were completed and the patient was admitted to the medical surgical floor for RLE cellulitis. The patient was treated with IV cefazolin. Blood and wound cultures remained negative. Due to worsening pain on ambulation report, a CTA run off was complted and showed not PAD. [facility] vascular consultation completed [facility] Dr. Blas with recommendation for new referral for RLE venous insufficiency with correct phone number to reach the patient as previous referral was closed d/t the inability to reach the patient. Wound counsult completed with the following recommendations: Treatment/Dressing Change Dressing Types: ABD Pad, Kerlix (Gauze Roll) and Xeroform Dressing Comment: Xeroform used for base layer then ABD pad then loosely secured with Kerlix gauze roll Nutrition Education Reviewed Nutrition Education: Yes Note: Increased protein intake is recommended for optimum wound healing and Mio agreed to try liquid protein supplements to assist with his wound healing. Recomendation Recomendation:: Pre-medicate with prn pain relief prior to dressing change. Twice a day while cellulitis is clearing. Remove Kerlix, ABD pad and Xeroform dressings. Dampen gauze with wound cleanser and gently (as patient tolerates) cleanse yellow slough from wound. Replace Xeroform, ABD pad and wrap loosely with Kerlix for securement. When cellulitis clears once a day dressing change is adequate. Encourage the patient to keep the leg elevated while treatment is ongoing. Once the critical stage of redness has subsided and the patient is relatively pain free the patient should be assessed for compression bandaging. Referral completed for [facility] vascular and reinitiated for [facility] surgery and spouse/ caregiver made aware. Follow-up with PCP within 7 days of discharge please. Prescription sent to listed pharmacy as listed below. The patient will be discharge home with resumption of RN and new PT, OT, and [employer] to ensure the completion of the vascular referral at [facility] as well as other follow-ups. Discussed with Dr. Melton Medical diagnosis necessitation home health referral: CLAYTON Nunn was doing the dressing [employer] WEIGHER and will continue, RN to monitor process and wound, and ensure meds are taken as ordered, please Registered Nurse: Check all that apply Instruct on new or changed medication(s)/assess compliance: Ordered Assess for exacerbation of medical condition, instruct patient/caregivers on signs and symptoms to report for early detection: Ordered Administer injection as no willing or able caregiver and patient is unable to administer due to: Dressing change assistance/ education and wound monitoring , medicine compliance Physical Therapist: Check all that apply Increase strength & endurance for safe mobility at home: Ordered To design/establish home maintenance program: Ordered Fall reduction therapy program for patient with history of frequent falls: Ordered Home safety evaluation and teaching/gait training including stair management (if applicable): Ordered Occupational Therapist: Evaluate and treat for patient unable to perform ADL/IADL/self-care: Ordered Upper extremity strengthening, range and motion: Ordered Occupational Therapy Specialist: Assist with community resources: Ordered Assist with fci care planning: Ordered Other: Missed [facility] vascular referral in 2023 - file closed as [facility] was not able to reach via given phone numbers. Referral initiated again. Also has a referral at [facility] surgery and should follow-up with PCP within7 days Encounter Date and Reason: I certify that a FTF encounter for this patient was performed on October 04, 2024 and that such encounter was related to the primary reason the patient requires home health services. The encounter was conducted in the following manner: By me as the certifying physician, WATER PUMP SERVICER, PA or By an inpatient physician, WATER PUMP SERVICER or PA during an inpatient stay who communicated findings to me, Certification And Authentication I certify that I composed the above information based on my clinical judgment relating to this patient's medical condition and, if applicable, clinical findings communicated to me by the NPP or inpatient physician who performed the FTF encounter. Name of Provider that will be monitoring home health services: Evon Howard
== END 2024-10-04 16:20 | disposition home health service (06) | DRG 603 ==
LOC: ER 12:44 → MS 13:23
PROVIDERS: Nurse Practitioner Family; Admitting Provider Family Medicine; Emergency Provider Emergency Medicine; PCP Family Medicine; Responsible Provider Nurse Practitioner Acute Care; Visit Provider Family Medicine
DX: L03.115 Cellulitis of right lower limb (principal); F11.20 Opioid dependence, uncomplicated; I69.351 Hemiplegia and hemiparesis following cerebral infarction affecting right dominant side; L97.818 Non-pressure chronic ulcer of other part of right lower leg with other specified severity; F17.210 Nicotine dependence, cigarettes, uncomplicated; F41.9 Anxiety disorder, unspecified; K22.70 Barrett's esophagus without dysplasia; I83.018 Varicose veins of right lower extremity with ulcer other part of lower leg; R60.0 Localized edema; F14.10 Cocaine abuse, uncomplicated; G47.33 Obstructive sleep apnea (adult) (pediatric); J44.9 Chronic obstructive pulmonary disease, unspecified; E11.40 Type 2 diabetes mellitus with diabetic neuropathy, unspecified; I69.320 Aphasia following cerebral infarction; F32.A Depression, unspecified; F12.90 Cannabis use, unspecified, uncomplicated; I50.9 Heart failure, unspecified; I11.0 Hypertensive heart disease with heart failure; Z79.01 Long term (current) use of anticoagulants; Z86.718 Personal history of other venous thrombosis and embolism; Z95.2 Presence of prosthetic heart valve
CPT/HCPCS: 00123; 36415; 75635; 80048; 80053; 85652; 87040; 96365; 96366; 96367; 96375; 97161; 99285; J1650; 73701; 83735; 84484; 85025; 86140; 87070; 87205; 99222; 99232; 99233; 99239; J0131; J0690; J0696; J1171; J3490

== ENCOUNTER 2024-10-08 06:06 | Emergency (ER) | payer MEDICAID, SELFPAY ==
[2024-10-08] VITALS (7 sets, daily range): BP systolic 197–203; BP diastolic 88–100; PULSE 54–74; RESP 9–16; TEMP 36.5; O2SAT 94–100
--- NOTE | 2024-10-08 06:10 | W.ED.GENAD ---
Discharge Plan Discharge Details Chief Complaint: Cellulitis Primary Care Provider: Evon Howard ED Provider: Arya Lei [place] Meds and New Rx's Prescriptions: No Action esomeprazole magnesium [Nexium] 40 mg capsule,delayed release(DR/EC) 40 mg PO DAILY albuterol sulfate 90 mcg/actuation HFA aerosol inhaler 2 inh inhalation Q6H PRN aspirin 81 mg Tablet 81 mg PO DAILY duloxetine 30 mg Capsule,Delayed Release(Dr/Ec) 30 mg PO BID acetaminophen [Tylenol] 325 mg tablet 1,000 mg PO Q6H PRN cyanocobalamin (vitamin B-12) [Vitamin B-12] 1,000 mcg tablet 1,000 mcg PO DAILY Qvar RediHaler 80 mcg/actuation HFA aerosol breath activated 1 inh INHALATION BID PRN Patient Comments: INHALE ONE PUFF BY MOUTH TWICE A DAY NEEDED spironolactone 25 mg Tablet 25 mg PO DAILY Qty: 30 0RF amlodipine 2.5 mg tablet 2.5 mg PO DAILY Patient Comments: TAKE ONE TABLET BY MOUTH EVERY DAY gabapentin 600 mg tablet 600 mg PO TID Patient Comments: TAKE ONE TABLET BY MOUTH THREE TIMES A DAY Lactobacillus acidophilus 500 million cell Capsule 500 mmu cells PO TID Qty: 30 0RF lisinopril 40 mg tablet 40 mg PO DAILY Patient Comments: TAKE ONE TABLET BY MOUTH EVERY DAY buprenorphine-naloxone [Suboxone] 8-2 mg film 1 film sublingual DAILY Patient Comments: PLACE ONE FILM UNDER THE TONGUE EVERY DAY tramadol 50 mg Tablet 50 mg PO Q6H PRN PRNQty: 20 0RF nicotine 21 mg/24 hr Patch 24 Hour 21 mg transdermal DAILY Qty: 28 0RF clonidine 0.1 mg/24 hr Patch Weekly 0.1 mg transdermal Q7D Qty: 4 0RF Rx Instructions: Started on 10/01/24. Renew as per PCP polyethylene glycol 3350 17 gram Powder In Packet 17 g PO DAILY Qty: 30 0RF cephalexin 500 mg Capsule 500 mg PO Q6H Qty: 24 0RF Bio-K plus 50 billion cell capsule,delayed release(DR/EC) 1 cap PO DAILY Qty: 10 0RF Rx Instructions: Take 3 hours apart from antibiotics , resume your regular probiotic regimen after finishing this docusate sodium [Colace] 100 mg capsule 100 mg PO BID Qty: 30 0RF Rx Instructions: Stop if you develop diarrhea. naloxone [Narcan] 4 mg/actuation spray,non-aerosol 1 spray intranasal Q3M Qty: 2 0RF Rx Instructions: spray 1 dose into ONE nostril; alternate nostrils w each dose until help arrives HPI General Mode of arrival: EMS. Date/Time Provider Initiated Documentation: 10/08/24 06:10. Limitations to Documentation: no limitations. Information obtained by: patient, RN notes reviewed and old records reviewed. HPI Narrative: Patient returns to ED after discharge from hospital on the after a second admission for cellulitis. Patient had initially presented in early September and was treated with clindamycin. He returned 4 days after discharge from that admission and having completed the clindamycin with worsening symptoms again. He was readmitted and placed on cefazolin, discharged on cephalexin. Patient reports that while in the hospital his pain and swelling improved. Now pain getting worse once again and he is experiencing shaking chills but no fever that he is aware of. He is keeping his leg elevated, taking antibiotics and doing dressing changes once a day as instructed. He last took tramadol at 03:30. Related Data Home Medications ?Medication ?Instructions ?Recorded ?Confirmed esomeprazole magnesium 40 mg 40 mg PO DAILY 05/05/20 10/08/24 capsule,delayed release (Nexium) aspirin 81 mg tablet 81 mg PO DAILY 08/03/20 10/08/24 duloxetine 30 mg capsule,delayed 30 mg PO BID 08/03/20 10/08/24 release acetaminophen 325 mg tablet 1,000 mg PO Q6H PRN 09/27/20 10/08/24 (Tylenol) albuterol sulfate 90 mcg/actuation 2 inh inhalation Q6H PRN 04/12/22 10/08/24 aerosol inhaler cyanocobalamin (vitamin B-12) 1,000 mcg PO DAILY 03/06/23 10/08/24 1,000 mcg tablet (Vitamin B-12) amlodipine 2.5 mg tablet 2.5 mg PO DAILY 09/30/23 10/08/24 gabapentin 600 mg tablet 600 mg PO TID 09/30/23 10/08/24 beclomethasone dipropionate 80 1 inh inhalation BID PRN 12/27/23 10/08/24 mcg/actuation HFA breath activated aerosol (Qvar RediHaler) Lactobacillus acidophilus 500 500 mmu cells PO TID #30 caps 02/09/24 10/08/24 million cell capsule Held on 10/04/24. Instructions: Resume on 10/11/24. Resume as per PCP spironolactone 25 mg tablet 25 mg PO DAILY #30 tabs 04/26/24 10/08/24 lisinopril 40 mg tablet 40 mg PO DAILY 07/07/24 10/08/24 buprenorphine 8 mg-naloxone 2 mg 1 film sublingual DAILY 10/01/24 10/08/24 sublingual film (Suboxone) L. acidophilus,casei,rhamnosus 50 1 cap PO DAILY #10 caps 10/04/24 10/08/24 billion cell capsule,delayed release (Bio-K plus) cephalexin 500 mg capsule 500 mg PO Q6H #24 caps 10/04/24 10/08/24 clonidine 0.1 mg/24 hr weekly 0.1 mg transdermal Q7D #4 ea 10/04/24 10/08/24 transdermal patch docusate sodium 100 mg capsule 100 mg PO BID #30 caps 10/04/24 10/08/24 (Colace) naloxone 4 mg/actuation nasal 1 spray intranasal Q3M #2 ea 10/04/24 10/08/24 spray (Narcan) nicotine 21 mg/24 hr daily 21 mg transdermal DAILY #28 ea 10/04/24 10/08/24 transdermal patch polyethylene glycol 3350 17 gram 17 g PO DAILY #30 ea 10/04/24 10/08/24 oral powder packet tramadol 50 mg tablet 50 mg PO Q6H PRN PRN #20 tabs 10/04/24 10/08/24 Previous Rx's ?Medication ?Instructions ?Recorded Lactobacillus acidophilus 500 500 mmu cells PO TID #30 caps 02/09/24 million cell capsule Held on 10/04/24. Instructions: Resume on 10/11/24. Resume as per PCP spironolactone 25 mg tablet 25 mg PO DAILY #30 tabs 04/26/24 L. acidophilus,casei,rhamnosus 50 1 cap PO DAILY #10 caps 10/04/24 billion cell capsule,delayed release (Bio-K plus) cephalexin 500 mg capsule 500 mg PO Q6H #24 caps 10/04/24 clonidine 0.1 mg/24 hr weekly 0.1 mg transdermal Q7D #4 ea 10/04/24 transdermal patch docusate sodium 100 mg capsule 100 mg PO BID #30 caps 10/04/24 (Colace) naloxone 4 mg/actuation nasal 1 spray intranasal Q3M #2 ea 10/04/24 spray (Narcan) nicotine 21 mg/24 hr daily 21 mg transdermal DAILY #28 ea 10/04/24 transdermal patch polyethylene glycol 3350 17 gram 17 g PO DAILY #30 ea 10/04/24 oral powder packet tramadol 50 mg tablet 50 mg PO Q6H PRN PRN #20 tabs 10/04/24 Allergies Allergy/AdvReac Type Severity Reaction Status Date / Time Penicillins AdvReac Severe Vomiting Verified 10/08/24 06:15 hydrocodone AdvReac Intermediate vomiting Verified 10/08/24 06:15 General Stated Complaint: Cellulitis LILLIAN: 3 Exam Narrative Exam Narrative: Const: WDWN male in NAD. VS per triage. HEENT: NC/AT. Normal facial exam. Neck: Supple. Trachea midline. Lungs: Normal respiratory effort. Cor: RRR without murmur. Good distal pulses. Neuro: A+O x 3. Normal speech, mentation. Cranial nerves II - XII grossly intact. No gross motor or sensory deficit. Ext: No C/C/E. Right LE bruno ulcer looks good compared to picture noted in chart from wound care. Redness still present but not outside previous markings. Significant warmth and tenderness to the cellulitic area. Strong DP/PT pulse. Course Vital Signs Vital signs: Vital Signs Temperature 97.7 F 10/08/24 06:06 Pulse 64 10/08/24 06:06 Respiratory Rate 16 10/08/24 06:06 Blood Pressure 197/88 H 10/08/24 06:06 Pulse Oximetry 96 10/08/24 06:06 Temperature 97.7 F 10/08/24 06:06 Temperature Source Temporal Artery Scan 10/08/24 06:06 Pulse 64 10/08/24 06:06 Respiratory Rate 16 10/08/24 06:06 Blood Pressure 197/88 H 10/08/24 06:06 Blood Pressure Position Supine 10/08/24 06:06 Pulse Oximetry 96 10/08/24 06:06 Oxygen Delivery Method Room Air 10/08/24 06:06 Oxygen Flow Rate 0 10/08/24 06:06 Pain Level 8 10/08/24 06:06 Medical Decision Making Patient presenting with worsening pain after being discharged from the hospital on the . Currently on cephalexin and following discharge instructions. Took tramadol 3 hours ago but pain worsening. Area is very warm to touch and tender. Ulcer does not look worse and is probably better. Previous CT on the without abscess or evidence of necrotizing fasciitis. Previous blood cultures and wound culture negative. Will place IV and recheck labs. Some dissociative dose of ketamine for pain given use of Suboxone. Repeat CT ordered given new tenderness and tenderness to evaluate for possibility of necrotizing fasciitis. I do not suspect abscess there is no fluctuance or fluid collections noted on exam. Signed out to oncoming ED physician pending labs and imaging. Medical Records Medical records reviewed: Yes I reviewed the patient's medical records. Quality:SDOH Health Related Social Needs: Health related social needs education Health related social needs details ind at home, denies needs PFSH All Active Problems Leg wound, right (Acute) Nicotine dependence (Acute) Hypertensive emergency (Acute) Hypertension (Chronic) Cellulitis of leg, right (Acute) Right middle lobe pneumonia (Acute) Hypoxia (Acute) Sepsis (Acute) Leukocytosis (Acute) Mild shortness of breath (Acute) Chest pain (Acute) Hypoxia (Acute) Recurrent apnea (Acute) Hypertensive emergency (Acute) Bilateral edema of lower extremity (Acute) Dyspnea (Acute) Right rotator cuff tear (Acute) Abnormal CT scan, kidney (Acute) Anxiety (Chronic) Medical non-compliance (Acute) Aragon esophagus (Acute) Opiate dependence (Chronic) managed on suboxone Medical History Palliative care encounter Obstructive sleep apnea Chronic venous insufficiency COPD (chronic obstructive pulmonary disease) Diabetic neuropathy Hx of deep venous thrombosis on Coumadin Diabetes mellitus Hypertension Cocaine abuse 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 S/P percutaneous endoscopic gastrostomy (PEG) tube placement History of ankle surgery S/P spinal surgery Family History Father No problems noted. Mother COPD (chronic obstructive pulmonary disease) Hypertension Diabetes Heart disease Sister Stroke Social History Smoking/Tobacco Use Status: Current every day Tobacco Type: cigarettes Years smoked: 44 Tobacco: How many years used: 40 Smoking risk assessment performed?: Yes Alcohol Intake: former Drug use: Daily Substance use type: marijuana and crack/cocaine Details: last used marijuana 10/06/24. last use of crack/cocaine a few weeks ago. 10/08/24 MG Caregiver/Support person: Yes Household members: friend(s) Housing: house Number of Children: 0 number of grandchildren: 1 current occupation: Disabled Pets and animals: Yes Pets and animals: cat(s) Current gender identity: male What type of physical activity do you participate in: none Do you feel safe at home: Yes Do you feel safe in your relationship?: Yes Additional Social history: Lives with ex- Vanessa, who is his caregiver. Lives in private home.
--- NOTE | 2024-10-08 06:30 | DI.CT_ITS ---
Exam(s) CT LOWER EXTREMITY RT W EXAM: CT LOWER EXTREMITY RT W CLINICAL HISTORY: worsening pain despite abx treatment. TECHNIQUE: Imaging Protocol: Axial computed tomography images with coronal and sagittal reformatted images were created and reviewed. CONTRAST MATERIAL: Intravenous: Omnipaque 350 Contrast volume:100 mL contrast route:IV - COMPARISON: CT CT ABD AORTA CTA W RUNOFF from 10/03/2024 FINDINGS: OSSEOUS: No evidence of fracture. No evidence of knee joint effusion. No evidence of osteomyelitis. SOFT TISSUES: There is a round metallic foreign body BB in the lateral aspect of the right mid thigh again noted, deep to the subcutaneous fat layer of the outer aspect of the muscular layer. There is no associated hematoma in this region. No abscess evident. However, there is a cellulitis pattern involving the anterolateral aspect of the calf below this level and extending into dorsal ankle level. IMPRESSION: Again noted is a previously described metallic foreign body (around bb) in the superficial muscular layer on the lateral aspect of the mid calf level. There is no associated hematoma nor abscess at this exact level but there is some persistent cellulitis pattern involving the anterolateral aspect of the calf at this level and extending into the ankle level. Report called by myself to ER physician 10/08/2024 at 8:40 a.m. RADIATION DOSE DELIVERED: 477.56mGy.cm Total DLP DATA REPOSITORY: All CT scans at this facility are submitted to the National Radiology Data Registry (NRDR) Dose Index Registry (DIR) with the [employer] (A[employer]). RADIATION OPTIMIZATION: All CT scans at this facility use at least one of these dose optimization techniques: automated exposure control; mA and/or kV adjustment per patient size (includes targeted exams where dose is matched to clinical indication); or iterative reconstruction.
[2024-10-08 06:53] LABS: ESR 32 mm/hr (0-20)
[2024-10-08] MEDS: Ketamine 500 MG/10 ML VIAL 20 MG IVP (06:59)
[2024-10-08 07:10] LABS: Anion Gap 7.0 mmol/L (3-11); BUN 31 mg/dL (7-18); CO2 29.0 mmol/L (21.0-32.0); Calcium 9.1 mg/dL (8.5-10.1); Chloride 103 mmol/L (98-107); Estimated GFR 63.28 (mL/min/1.73m2); Glucose 146 mg/dL (74-106); Potassium 4.5 mmol/L (3.5-5.1); Sodium 139 mmol/L (136-145)
[2024-10-08 07:11] LABS: C-Reactive Protein < 0.50 mg/dL (<or=0.5)
[2024-10-08] MEDS: Normal Saline Flush 10 ML SYR IVP (07:37)
[2024-10-08] MEDS: Normal Saline - Diluent 50 ML VIAL IJ (07:37)
[2024-10-08] MEDS: Omnipaque 350 MG/ML 100 ML BTL IJ (07:38)
[2024-10-08 07:51] LABS: Abs Immature Grans 0.03 10^3/uL (0.0-0.06); HCT 42.2 % (40.0-50.0); HGB 13.4 g/dL (13.5-17.5); Immature Grans % 0.5 %; MCH 26.5 pg (27.0-33.0); MCHC 31.8 % (32.0-36.0); MCV 84 fL (80-95); MPV 8.9 fL (8.0-11.0); Platelet Count 336 10^3/uL (130-400); RBC 5.05 10^6/uL (4.36-5.78); RDW 15.5 % (11.8-14.1); RDW-SD 47.0 fL; WBC 5.92 10^3/uL (4.4-10.8)
[2024-10-08] MEDS: Acetaminophen 500 MG TAB 1000 MG PO (08:14)
[2024-10-08] MEDS: amLODIPine 5 MG TAB PO (08:14)
--- NOTE | 2024-10-08 08:49 | W.EDPROG ---
Date of service: 10/08/24 Time of Service: 08:49 Medical Decision Making Patient care assumed pending lab results and CT imaging. Results reviewed. Patient's inflammatory markers continue to decline. CT results showed no abscess, or significant extension of cellulitic pattern on CT. Patient was reassessed, he is resting comfortably, notes pain significantly improved. He notes that he has a walker at home and feels that he is able to care for himself at home and is agreeable to plan for discharge to continue with his current outpatient medications. Imaging Data Radiologic Study: Radiologist's impression: Exam(s) CT LOWER EXTREMITY RT W EXAM: CT LOWER EXTREMITY RT W CLINICAL HISTORY: worsening pain despite abx treatment. TECHNIQUE: Imaging Protocol: Axial computed tomography images with coronal and sagittal reformatted images were created and reviewed. CONTRAST MATERIAL: Intravenous: Omnipaque 350 Contrast volume:100 mL contrast route:IV - COMPARISON: CT CT ABD AORTA CTA W RUNOFF from 10/03/2024 FINDINGS: OSSEOUS: No evidence of fracture. No evidence of knee joint effusion. No evidence of osteomyelitis. SOFT TISSUES: There is a round metallic foreign body BB in the lateral aspect of the right mid thigh again noted, deep to the subcutaneous fat layer of the outer aspect of the muscular layer. There is no associated hematoma in this region. No abscess evident. However, there is a cellulitis pattern involving the anterolateral aspect of the calf below this level and extending into dorsal ankle level. IMPRESSION: Again noted is a previously described metallic foreign body (around bb) in the superficial muscular layer on the lateral aspect of the mid calf level. There is no associated hematoma nor abscess at this exact level but there is some persistent cellulitis pattern involving the anterolateral aspect of the calf at this level and extending into the ankle level. Report called by myself to ER physician 10/08/2024 at 8:40 a.m. RADIATION DOSE DELIVERED: 477.56mGy.cm Total DLP DATA REPOSITORY: All CT scans at this facility are submitted to the National Radiology Data Registry (NRDR) Dose Index Registry (DIR) with the [employer] (ACR). RADIATION OPTIMIZATION: All CT scans at this facility use at least one of these dose optimization techniques: automated exposure control; mA and/or kV adjustment per patient size (includes targeted exams where dose is matched to clinical indication); or iterative reconstruction. Lab Data Labs: Laboratory Tests Range/Units 10/08/24 06:40 WBC (4.4-10.8) 10^3/uL 5.92 RBC (4.36-5.78) 10^6/uL 5.05 Hgb (13.5-17.5) g/dL 13.4 L Hct (40.0-50.0) % 42.2 MCV (80-95) fL 84 MCH (27.0-33.0) pg 26.5 L MCHC (32.0-36.0) % 31.8 L RDW (11.8-14.1) % 15.5 H Plt Count (130-400) 10^3/uL 336 MPV (8.0-11.0) fL 8.9 Immature Gran % % 0.5 Neutrophils % % 62.0 Lymphocytes % % 23.8 Monocytes % % 9.0 Eosinophils % % 3.2 Basophils % % 1.5 Nucleated RBC % (0.0-0.3) % 0.0 Absolute Neutrophils (1.2-6.7) 10^3/uL 3.67 Absolute Lymphocytes (1.2-3.4) 10^3/uL 1.41 Absolute Monocytes (0.1-0.8) 10^3/uL 0.53 Absolute Eosinophils (0.0-0.7) 10^3/uL 0.19 Absolute Basophils (0.0-0.2) 10^3/uL 0.09 ESR (0-20) mm/hr 32 H Sodium (136-145) mmol/L 139 Potassium (3.5-5.1) mmol/L 4.5 Chloride (98-107) mmol/L 103 Carbon Dioxide (21.0-32.0) mmol/L 29.0 Anion Gap (3-11) mmol/L 7.0 BUN (7-18) mg/dL 31 H Creatinine (0.70-1.30) mg/dL 1.3 Est GFR (CKD-EPI 2020) (mL/min/1.73m2) 63.28 Glucose (74-106) mg/dL 146 H Calcium (8.5-10.1) mg/dL 9.1 C-Reactive Protein (<or=0.5) mg/dL < 0.50 Quality:SDCO Health Related Social Needs: Health related social needs education Health related social needs details ind at home, denies needs Discharge Plan Disposition Patient Disposition: Home Discharge Details Clinical Impression: Cellulitis of leg, right, Hypertension Primary Care Provider: Evon Howard ED Provider: Dereck Dubon Home Meds and New Rx's Prescriptions: Continued esomeprazole magnesium [Nexium] 40 mg capsule,delayed release(DR/EC) 40 mg PO DAILY albuterol sulfate 90 mcg/actuation HFA aerosol inhaler 2 inh inhalation Q6H PRN aspirin 81 mg Tablet 81 mg PO DAILY duloxetine 30 mg Capsule,Delayed Release(Dr/Ec) 30 mg PO BID acetaminophen [Tylenol] 325 mg tablet 1,000 mg PO Q6H PRN cyanocobalamin (vitamin B-12) [Vitamin B-12] 1,000 mcg tablet 1,000 mcg PO DAILY Qvar RediHaler 80 mcg/actuation HFA aerosol breath activated 1 inh INHALATION BID PRN Patient Comments: INHALE ONE PUFF BY MOUTH TWICE A DAY NEEDED spironolactone 25 mg Tablet 25 mg PO DAILY Qty: 30 0RF amlodipine 2.5 mg tablet 2.5 mg PO DAILY Patient Comments: TAKE ONE TABLET BY MOUTH EVERY DAY gabapentin 600 mg tablet 600 mg PO TID Patient Comments: TAKE ONE TABLET BY MOUTH THREE TIMES A DAY Lactobacillus acidophilus 500 million cell Capsule 500 mmu cells PO TID Qty: 30 0RF lisinopril 40 mg tablet 40 mg PO DAILY Patient Comments: TAKE ONE TABLET BY MOUTH EVERY DAY buprenorphine-naloxone [Suboxone] 8-2 mg film 1 film sublingual DAILY Patient Comments: PLACE ONE FILM UNDER THE TONGUE EVERY DAY tramadol 50 mg Tablet 50 mg PO Q6H PRN PRNQty: 20 0RF nicotine 21 mg/24 hr Patch 24 Hour 21 mg transdermal DAILY Qty: 28 0RF clonidine 0.1 mg/24 hr Patch Weekly 0.1 mg transdermal Q7D Qty: 4 0RF Rx Instructions: Started on 10/01/24. Renew as per PCP polyethylene glycol 3350 17 gram Powder In Packet 17 g PO DAILY Qty: 30 0RF cephalexin 500 mg Capsule 500 mg PO Q6H Qty: 24 0RF Bio-K plus 50 billion cell capsule,delayed release(DR/EC) 1 cap PO DAILY Qty: 10 0RF Rx Instructions: Take 3 hours apart from antibiotics , resume your regular probiotic regimen after finishing this docusate sodium [Colace] 100 mg capsule 100 mg PO BID Qty: 30 0RF Rx Instructions: Stop if you develop diarrhea. naloxone [Narcan] 4 mg/actuation spray,non-aerosol 1 spray intranasal Q3M Qty: 2 0RF Rx Instructions: spray 1 dose into ONE nostril; alternate nostrils w each dose until help arrives Discharge Instructions Instructions: Cellulitis (Skin Infection), Adult ED, High Blood Pressure ED Additional Instructions: Please follow-up with your primary care provider regarding your visit to the emergency department today. Be sure to discuss results of all test performed here today to include radiology, and laboratory testing as well as results for any pending cultures. Should your symptoms worsen, or if you develop new concerning symptoms, please return immediately emergency department for further evaluation.
== END 2024-10-08 09:24 | disposition home or self-care (01) ==
PROVIDERS: Emergency Medicine; Emergency Provider General Practice; PCP Family Medicine
DX: L03.115 Cellulitis of right lower limb; I10 Essential (primary) hypertension
CPT/HCPCS: 99285; 99284; 36415; 96374; 00123; 80048; 85652; 73701; 85025; 86140; J3490

== ENCOUNTER 2024-10-10 02:35 | Emergency (ER) | payer MEDICAID, SELFPAY ==
--- NOTE | 2024-10-10 04:11 | ED.PROG_ITS ---
Date of service: 10/10/24 Time of Service: 04:11 Medical Decision Making Initial documentation during EMR downtime on paper record. In brief, 59yo M with diabetic LE wounds with recent hospital admission presented with inability to walk 2/t pain. Had not taken any pain medications today. Hypertensive, vital signs otherwise reassuring and he is systemically well. Good pulses. Wounds appear to be healing well and remain within marked margins. Not suggestive of acute limb ischemia or sepsis. Plan for pain medication and trial ambulation. Trailed ambulation after medication and able to ambulate steadily independently. Did c/o of pain while ambulating and after getting to the door to the room did not feel he could walk further, returned independently steadily to bed. I advised him to take his pain medications as prescribed at home. He states he does not want to go home because I don't like my house because there's crack all around referring to the general neighborhood. I sympathized with him and, while unfortunate, this is not an indication for hospital admission. Discharged home to outpatient followup with PCP. Will refer PT as well. Given home dose antihypertensives for elevated BP here and advised to followup with his PCP for this; no symptoms to suggest hypertensive crisis. Discharge instructions and return precautions were reviewed with patient who verbalized understanding. All questions were answered. Awaiting RCT. Quality:SDOH Health Related Social Needs: Health related social needs education Health related social needs details ind at home, salina gore needs Discharge Plan Disposition Patient Disposition: Home Condition: Good Discharge Details Clinical Impression: Leg wound, left, Leg wound, right, Cellulitis Primary Care Provider: Evon Howard ED Provider: Xochitl Lopez Home Meds and New Rx's Prescriptions: Continued esomeprazole magnesium [Nexium] 40 mg capsule,delayed release(DR/EC) 40 mg PO DAILY albuterol sulfate 90 mcg/actuation HFA aerosol inhaler 2 inh inhalation Q6H PRN aspirin 81 mg Tablet 81 mg PO DAILY duloxetine 30 mg Capsule,Delayed Release(Dr/Ec) 30 mg PO BID acetaminophen [Tylenol] 325 mg tablet 1,000 mg PO Q6H PRN cyanocobalamin (vitamin B-12) [Vitamin B-12] 1,000 mcg tablet 1,000 mcg PO DAILY Qvar RediHaler 80 mcg/actuation HFA aerosol breath activated 1 inh INHALATION BID PRN Patient Comments: INHALE ONE PUFF BY MOUTH TWICE A DAY NEEDED spironolactone 25 mg Tablet 25 mg PO DAILY Qty: 30 0RF amlodipine 2.5 mg tablet 2.5 mg PO DAILY Patient Comments: TAKE ONE TABLET BY MOUTH EVERY DAY gabapentin 600 mg tablet 600 mg PO TID Patient Comments: TAKE ONE TABLET BY MOUTH THREE TIMES A DAY Lactobacillus acidophilus 500 million cell Capsule 500 mmu cells PO TID Qty: 30 0RF lisinopril 40 mg tablet 40 mg PO DAILY Patient Comments: TAKE ONE TABLET BY MOUTH EVERY DAY buprenorphine-naloxone [Suboxone] 8-2 mg film 1 film sublingual DAILY Patient Comments: PLACE ONE FILM UNDER THE TONGUE EVERY DAY tramadol 50 mg Tablet 50 mg PO Q6H PRN PRNQty: 20 0RF nicotine 21 mg/24 hr Patch 24 Hour 21 mg transdermal DAILY Qty: 28 0RF clonidine 0.1 mg/24 hr Patch Weekly 0.1 mg transdermal Q7D Qty: 4 0RF Rx Instructions: Started on 10/01/24. Renew as per PCP polyethylene glycol 3350 17 gram Powder In Packet 17 g PO DAILY Qty: 30 0RF cephalexin 500 mg Capsule 500 mg PO Q6H Qty: 24 0RF Bio-K plus 50 billion cell capsule,delayed release(DR/EC) 1 cap PO DAILY Qty: 10 0RF Rx Instructions: Take 3 hours apart from antibiotics , resume your regular probiotic regimen after finishing this docusate sodium [Colace] 100 mg capsule 100 mg PO BID Qty: 30 0RF Rx Instructions: Stop if you develop diarrhea. naloxone [Narcan] 4 mg/actuation spray,non-aerosol 1 spray intranasal Q3M Qty: 2 0RF Rx Instructions: spray 1 dose into ONE nostril; alternate nostrils w each dose until help arrives Discharge Instructions Instructions: Cellulitis (skin infection) in adults - Discharge instructions Additional Instructions: Take all of your medications as prescribed, including your pain medication. You were given your amlodipine and lisinopril here in the ED; do not take them again this morning. Call your primary care doctor in the morning to schedule an appointment for within 48 hours to followup on your visit today. At that visit please also discuss your blood pressure which is high here in the ED. A referral has been sent for physical therapy; please make sure to schedule an appointment when you are called. Return to the emergency department for new or worsening symptoms including fever, vomiting, if your wounds have more discharge, the redness extends beyond the markings, if your pain is increasing despite taking pain mediation at home, or if you have any other concerns. Stand Alone Forms: Physical Therapy Referral
[2024-10-10 04:17] VITALS: BP 155/95; PULSE 63; RESP 18; TEMP 36.8; O2SAT 98
[2024-10-10 04:54] VITALS: BP 194/96; PULSE 76; RESP 16; TEMP 36.5; O2SAT 96
[2024-10-10] MEDS: amLODIPine 2.5 MG TAB PO (05:45)
[2024-10-10] MEDS: Lisinopril 20 MG TAB 40 MG PO (05:45)
[2024-10-10 05:51] VITALS: BP 197/107; PULSE 78; RESP 16; O2SAT 97
== END 2024-10-10 05:51 | disposition home or self-care (01) ==
PROVIDERS: Emergency Provider Student in an Organized Health Care Education/Training Program; PCP Family Medicine
DX: L03.115 Cellulitis of right lower limb (principal); L03.116 Cellulitis of left lower limb; R03.0 Elevated blood-pressure reading, without diagnosis of hypertension
CPT/HCPCS: 99283; 99284; 00123

== ENCOUNTER 2024-12-26 07:16 | Inpatient (IN) | payer MEDICAID, SELFPAY ==
[2024-12-26] VITALS (12 sets, daily range): BP systolic 147–198; BP diastolic 81–98; PULSE 57–92; RESP 6–42; TEMP 36.3–36.9; O2SAT 93–97
--- NOTE | 2024-12-26 07:15 | RT.EKG_ITS ---
APPROVED REPORT Exam: Resting ECG Reason for Exam: Shortness of Breath Patient Location: E HR:72 bpm ECG Measurements Heart Rate 72 AXIS PA 187 P 52 QRSd 153 QRS 62 QT 434 T 71 QTc 477 Conclusion Sinus rhythm...normal P axis, V-rate 60- 99 Right bundle branch block...QRSd>120, terminal axis(90,270) Physician: Unchanged, No STEMI
--- NOTE | 2024-12-26 07:24 | DI.CT_ITS ---
Exam(s) CT CHEST PE CTA EXAM: CT CHEST PE CTA CLINICAL HISTORY: cough, chest pain, SOB, eval fro pneumonuia/PE. TECHNIQUE: Imaging Protocol: Axial CT angiography was performed with multi- slice acquisition and multi-planar and/or 3D reconstructions. Lung Computer Aided Detection (CAD) was utilized. CONTRAST MATERIAL: Intravenous: Omnipaque 350 contrast volume:100 mL COMPARISON: CT CT CHEST PE CTA from 08/03/[address] CHEST LUNG CANCER SCREEN from 06/13/[address] THORAX ABD/PEL CTA from 07/03/2024 FINDINGS: The examination is limited due to patient motion artifact. Tracheobronchial tree: Patent where visualized. No bronchiectasis. There is mild bronchial wall thickening seen in the lower lobes. Pulmonary parenchyma: No consolidation or dominant measurable mass. There is dependent atelectasis present. There are no focal consolidating infiltrate seen. There are no suspicious pulmonary nodules. Pulmonary Arteries: No evidence of filling defect to suggest pulmonary emboli. Mediastinum and [place]: No dominant adenopathy or fluid collection. The esophagus is unremarkable. Visualized thyroid gland: Unremarkable. Pleura: No effusion or pneumothorax. Heart: The heart is not dilated. Coronary artery calcifications are present. No pericardial effusion. Aorta: Thoracic aorta non-dilated. No evidence of dissection. Atherosclerotic calcification is present. Upper abdomen: Calcified granuloma are seen in the spleen and liver. Soft tissues: Unremarkable. Bones: Within normal limits for the patient's age.Sternal wires are in place. IMPRESSION: 1. There is no evidence of a pulmonary embolism or thoracic aortic aneurysm. 2. Mild bronchial wall thickening in the lower lobes. This can be seen with bronchitis. Please correlate clinically. 3. There are no focal consolidating infiltrates in the lungs. RADIATION DOSE DELIVERED: 120.03mGy.cm Total DLP DATA REPOSITORY: All CT scans at this facility are submitted to the National Radiology Data Registry (NRDR) Dose Index Registry (DIR) with the [employer] ([employer]). RADIATION OPTIMIZATION: All CT scans at this facility use at least one of these dose optimization techniques: automated exposure control; mA and/or kV adjustment per patient size (includes targeted exams where dose is matched to clinical indication); or iterative reconstruction.
[2024-12-26] MEDS: methylPREDNISolone SUCC 125 MG VIAL IVP (08:05)
[2024-12-26 08:12] LABS: Abs Immature Grans 0.03 10^3/uL (0.0-0.06); HCT 39.6 % (40.0-50.0); HGB 12.8 g/dL (13.5-17.5); Immature Grans % 0.3 %; MCH 27.9 pg (27.0-33.0); MCHC 32.3 % (32.0-36.0); MCV 86 fL (80-95); MPV 9.4 fL (8.0-11.0); Platelet Count 373 10^3/uL (130-400); RBC 4.59 10^6/uL (4.36-5.78); RDW 14.6 % (11.8-14.1); RDW-SD 46.0 fL; WBC 9.00 10^3/uL (4.4-10.8)
[2024-12-26 08:13] LABS: BE (Venous) 2 mmol/L (-2-3); HCO3 (Venous) 28 mmol/L (23-28); O2 Sat (Venous) 75 %; TCO2 (Venous) 25 mmol/L (24-29); pCO2 (Venous) 49 mmHg (41-51); pO2 (Venous) 43 mmHg
--- NOTE | 2024-12-26 08:15 | DI.US_ITS ---
Exam(s) US LOWER EXTREMITY VENOUS LT EXAM: US LOWER EXTREMITY VENOUS LT CLINICAL HISTORY: cellulitis, eval for clot TECHNIQUE: Left lower extremity venous ultrasound performed using grayscale, color-flow, and spectral Doppler analysis. COMPARISON: US US LOWER EXTREMITY VENOUS LT from 09/10/2021 FINDINGS: The left common femoral, femoral and popliteal veins demonstrate normal compressibility, augmentation, and color Doppler. The posterior tibial veins are patent. The saphenofemoral junction is unremarkable. There is no evidence of a Carter cyst. The soft tissues are unremarkable. IMPRESSION: No evidence of a left lower extremity DVT. DATA REPOSITORY:
[2024-12-26 08:28] LABS: INR 1.1 (0.9-1.1); PTT Activated 27.5 sec (20.6-30.2); Prothrombin Time 10.6 sec (9.1-11.1)
[2024-12-26 08:30] LABS: COVID-19 PCR Negative (Negative); RSV PCR Negative (Negative)
[2024-12-26 08:36] LABS: ALT 14 U/L (16-63); AST 10 U/L (15-37); Albumin 3.3 g/dL (3.4-5.0); Alkaline Phosphatase 89 U/L (46-116); Anion Gap 8.0 mmol/L (3-11); BUN 34 mg/dL (7-18); Bilirubin, Total 0.1 mg/dL (0.2-1.0); CO2 29.0 mmol/L (21.0-32.0); Calcium 8.9 mg/dL (8.5-10.1); Chloride 107 mmol/L (98-107); Glucose 121 mg/dL (74-106); Potassium 4.0 mmol/L (3.5-5.1); Sodium 144 mmol/L (136-145); Total Protein 7.8 g/dL (6.4-8.2); Troponin I 19 ng/L (<or=76)
[2024-12-26 08:42] LABS: Procalcitonin 0.13 ng/mL
--- NOTE | 2024-12-26 08:58 | W.ED.GENAD ---
Discharge Plan Disposition Patient Disposition: Admit to [facility] Condition: Good Discharge Details Clinical Impression: Cellulitis of leg, right, COPD exacerbation Primary Care Provider: Evon Howard ED Provider: Rohan Liao Home Meds and New Rx's Prescriptions: No Action esomeprazole magnesium [Nexium] 40 mg capsule,delayed release(DR/EC) 40 mg PO DAILY albuterol sulfate 90 mcg/actuation HFA aerosol inhaler 2 inh inhalation Q6H PRN aspirin 81 mg Tablet 81 mg PO DAILY duloxetine 30 mg Capsule,Delayed Release(Dr/Ec) 30 mg PO BID acetaminophen [Tylenol] 325 mg tablet 1,000 mg PO Q6H PRN cyanocobalamin (vitamin B-12) [Vitamin B-12] 1,000 mcg tablet 1,000 mcg PO DAILY Qvar RediHaler 80 mcg/actuation HFA aerosol breath activated 1 inh INHALATION BID PRN Patient Comments: INHALE ONE PUFF BY MOUTH TWICE A DAY NEEDED spironolactone 25 mg Tablet 25 mg PO DAILY Qty: 30 0RF amlodipine 2.5 mg tablet 2.5 mg PO DAILY Patient Comments: TAKE ONE TABLET BY MOUTH EVERY DAY gabapentin 600 mg tablet 600 mg PO TID Patient Comments: TAKE ONE TABLET BY MOUTH THREE TIMES A DAY lisinopril 40 mg tablet 40 mg PO DAILY Patient Comments: TAKE ONE TABLET BY MOUTH EVERY DAY buprenorphine-naloxone [Suboxone] 8-2 mg film 1 film sublingual DAILY Patient Comments: PLACE ONE FILM UNDER THE TONGUE EVERY DAY tramadol 50 mg Tablet 50 mg PO Q6H PRN PRNQty: 20 0RF clonidine 0.1 mg/24 hr Patch Weekly 0.1 mg transdermal Q7D Qty: 4 0RF Rx Instructions: Started on 10/01/24. Renew as per PCP polyethylene glycol 3350 17 gram Powder In Packet 17 g PO DAILY Qty: 30 0RF docusate sodium [Colace] 100 mg capsule 100 mg PO BID Qty: 30 0RF Rx Instructions: Stop if you develop diarrhea. naloxone [Narcan] 4 mg/actuation spray,non-aerosol 1 spray intranasal Q3M Qty: 2 0RF Rx Instructions: spray 1 dose into ONE nostril; alternate nostrils w each dose until help arrives HPI General Date/Time Provider Initiated Documentation: 12/26/24 07:24. HPI Narrative: This is a 59-year-old male with a past medical history of aortic valve replacement secondary to aortic valve endocarditis, COPD, chronic venous insufficiency with chronic hemosiderin staining on the lower extremities, history of prior blood clots, not currently on any anticoagulation, diabetes mellitus type 2, hypertension, previous cocaine use in the past, current smoker, previous strokes without severe deficits, on a current daily 81 mg aspirin, who presents today for evaluation of 1 to 2 weeks of cough, with productive green sputum, mild chest pressure which began today, and cellulitis pain in his right lower extremity. Patient is otherwise somewhat poor historian. He denies any trauma. He denies any other complaints. He denies any hemoptysis. EMS also reports that the patient's oxygen saturation was in the low 90s to high 80s on their initial arrival and they were called and he was brought in. He saturated well on supplemental oxygen. Related Data Home Medications Medication Instructions Recorded Confirmed esomeprazole magnesium 40 mg 40 mg PO DAILY 05/05/20 12/26/24 capsule,delayed release (Nexium) aspirin 81 mg tablet 81 mg PO DAILY 08/03/20 12/26/24 duloxetine 30 mg capsule,delayed 30 mg PO BID 08/03/20 12/26/24 release acetaminophen 325 mg tablet 1,000 mg PO Q6H PRN 09/27/20 12/26/24 (Tylenol) albuterol sulfate 90 mcg/actuation 2 inh inhalation Q6H PRN 04/12/22 12/26/24 aerosol inhaler cyanocobalamin (vitamin B-12) 1,000 mcg PO DAILY 03/06/23 12/26/24 1,000 mcg tablet (Vitamin B-12) amlodipine 2.5 mg tablet 2.5 mg PO DAILY 09/30/23 12/26/24 gabapentin 600 mg tablet 600 mg PO TID 09/30/23 12/26/24 beclomethasone dipropionate 80 1 inh inhalation BID PRN 12/27/23 12/26/24 mcg/actuation HFA breath activated aerosol (Qvar RediHaler) spironolactone 25 mg tablet 25 mg PO DAILY #30 tabs 04/26/24 12/26/24 lisinopril 40 mg tablet 40 mg PO DAILY 07/07/24 12/26/24 buprenorphine 8 mg-naloxone 2 mg 1 film sublingual DAILY 10/01/24 12/26/24 sublingual film (Suboxone) clonidine 0.1 mg/24 hr weekly 0.1 mg transdermal Q7D #4 ea 10/04/24 12/26/24 transdermal patch docusate sodium 100 mg capsule 100 mg PO BID #30 caps 10/04/24 12/26/24 (Colace) naloxone 4 mg/actuation nasal 1 spray intranasal Q3M #2 ea 10/04/24 12/26/24 spray (Narcan) polyethylene glycol 3350 17 gram 17 g PO DAILY #30 ea 10/04/24 12/26/24 oral powder packet tramadol 50 mg tablet 50 mg PO Q6H PRN PRN #20 tabs 10/04/24 12/26/24 Previous Rx's Medication Instructions Recorded spironolactone 25 mg tablet 25 mg PO DAILY #30 tabs 04/26/24 clonidine 0.1 mg/24 hr weekly 0.1 mg transdermal Q7D #4 ea 10/04/24 transdermal patch docusate sodium 100 mg capsule 100 mg PO BID #30 caps 10/04/24 (Colace) naloxone 4 mg/actuation nasal 1 spray intranasal Q3M #2 ea 10/04/24 spray (Narcan) polyethylene glycol 3350 17 gram 17 g PO DAILY #30 ea 10/04/24 oral powder packet tramadol 50 mg tablet 50 mg PO Q6H PRN PRN #20 tabs 10/04/24 Allergies Allergy/AdvReac Type Severity Reaction Status Date / Time Penicillins AdvReac Severe Vomiting Verified 12/26/24 07:33 hydrocodone AdvReac Intermediate vomiting Verified 12/26/24 07:33 General Stated Complaint: SOB LILLIAN: 2 Exam Narrative Exam Narrative: 1.Const: Well-nourished, Well-developed, appearing stated age 2.Eyes: PERRL, no conjunctival injection, and symmetrical lids. 3.ENT: Atraumatic external nose and ears. Moist MM. Neck: Symmetric, trachea midline, No thyromegaly. 4.CVS: +S1/S2, Peripheral pulses 2+ and equal in all extremities. Brisk capillary refill in all extremities. 5.RESP: Rhonchorous breath sounds, mild wheeze, scattered rhonchi. 6.GI: Soft, Nontender/Nondistended, No hepatosplenomegaly. No guarding or rebound. 7.MSK: Normocephalic/Atraumatic, Extremities w/o deformity or ttp No cyanosis or clubbing, Normal movement of all extremities 8.Skin: Chronic hemosiderin staining of the lower extremities bilaterally, notable right-sided cellulitis with few scattered ulcers. Cellulitis is circumferential. Swelling tenderness and edema on the right lower extremity. 9.Neuro: endoscopy registered nurse II-XII grossly intact. Sensation grossly intact, no focal neurologic deficits. 10.Psych: (AAO) x3. Appropriate mood and affect Course Vital Signs Vital signs: Vital Signs Temperature 36.4 C L 12/26/24 07:17 Pulse 85 12/26/24 07:17 Respiratory Rate 20 12/26/24 07:17 Blood Pressure 194/98 H 12/26/24 07:17 Pulse Oximetry 96 12/26/24 07:17 Temperature 36.4 C L 12/26/24 07:17 Temperature Source Oral 12/26/24 07:17 Pulse 65 12/26/24 08:20 Pulse 66 12/26/24 08:20 Respiratory Rate 42 H 12/26/24 08:20 Respiratory Effort Normal, Non-Labored 12/26/24 08:20 Respiratory Depth Normal 12/26/24 08:20 Respiratory Pattern Normal 12/26/24 08:20 Blood Pressure 189/84 H 12/26/24 08:01 Blood Pressure Mean 120 12/26/24 08:01 Pulse Oximetry 96 12/26/24 08:20 Oxygen Delivery Method Room Air 12/26/24 07:17 Oxygen Flow Rate 0 12/26/24 07:17 Pain Level 10 12/26/24 07:17 Comment pt requesting oxygen but holding the NC in his left hand pt refusing to keep BP on for a reading 12/26/24 07:17 Lab/Test Results Lab/Test Results: 12/26/24 08:15 Blood Blood Culture - Pending 12/26/24 07:58 Blood Blood Culture - Pending Laboratory Tests Range/Units 12/26/24 07:58 WBC (4.4-10.8) 10^3/uL 9.00 RBC (4.36-5.78) 10^6/uL 4.59 Hgb (13.5-17.5) g/dL 12.8 L Hct (40.0-50.0) % 39.6 L MCV (80-95) fL 86 MCH (27.0-33.0) pg 27.9 MCHC (32.0-36.0) % 32.3 RDW (11.8-14.1) % 14.6 H Plt Count (130-400) 10^3/uL 373 MPV (8.0-11.0) fL 9.4 Immature Gran % % 0.3 Neutrophils % % 68.7 Lymphocytes % % 18.1 Monocytes % % 8.9 Eosinophils % % 3.0 Basophils % % 1.0 Nucleated RBC % (0.0-0.3) % 0.0 Absolute Neutrophils (1.2-6.7) 10^3/uL 6.18 Absolute Lymphocytes (1.2-3.4) 10^3/uL 1.63 Absolute Monocytes (0.1-0.8) 10^3/uL 0.80 Absolute Eosinophils (0.0-0.7) 10^3/uL 0.27 Absolute Basophils (0.0-0.2) 10^3/uL 0.09 PT (9.1-11.1) sec 10.6 INR (0.9-1.1) 1.1 APTT (20.6-30.2) sec 27.5 VBG pH (7.31-7.41) 7.36 VBG pCO2 (41-51) mmHg 49 VBG pO2 mmHg 43 VBG HCO3 (23-28) mmol/L 28 VBG Total CO2 (24-29) mmol/L 25 VBG O2 Saturation % 75 VBG Base Excess (-2-3) mmol/L 2 VBG Lactate (<or=2.0) mmol/L 1.3 Sodium (136-145) mmol/L 144 Potassium (3.5-5.1) mmol/L 4.0 Chloride (98-107) mmol/L 107 Carbon Dioxide (21.0-32.0) mmol/L 29.0 Anion Gap (3-11) mmol/L 8.0 BUN (7-18) mg/dL 34 H Creatinine (0.70-1.30) mg/dL 1.5 H Est GFR (CKD-EPI 2020) (mL/min/1.73m2) 53.30 Glucose (74-106) mg/dL 121 H Calcium (8.5-10.1) mg/dL 8.9 Total Bilirubin (0.2-1.0) mg/dL 0.1 L AST (15-37) U/L 10 L ALT (16-63) U/L 14 L Alkaline Phosphatase (46-116) U/L 89 Troponin I (<or=76) ng/L 19 Total Protein (6.4-8.2) g/dL 7.8 Albumin (3.4-5.0) g/dL 3.3 L Procalcitonin ng/mL 0.13 Medical Decision Making This is a 59-year-old male with a past medical history of aortic valve replacement secondary to aortic valve endocarditis, COPD, chronic venous insufficiency with chronic hemosiderin staining on the lower extremities, history of prior blood clots, not currently on any anticoagulation, diabetes mellitus type 2, hypertension, previous cocaine use in the past, current smoker, previous strokes without severe deficits, on a current daily 81 mg aspirin, who presents today for evaluation of 1 to 2 weeks of cough, with productive green sputum, mild chest pressure which began today, and cellulitis pain in his right lower extremity. Patient is otherwise somewhat poor historian. He denies any trauma. He denies any other complaints. He denies any hemoptysis. EMS also reports that the patient's oxygen saturation was in the low 90s to high 80s on their initial arrival and they were called and he was brought in. He saturated well on supplemental oxygen. Physical exam demonstrates rhonchorous breath sounds, wheezes, cellulitis on the right lower extremity. Differential includes pneumonia, cellulitis, COPD exacerbation. Will start the patient on Solu-Medrol, give breathing treatment, get imaging of the chest to rule out pneumonia. There is also concern for DVT/PE with his history, we will get a CTA as well as an ultrasound. Will monitor closely and reassess. 10:23 AM Laboratory workup demonstrates no white count, patient's VBG is stable. Lactate normal, electrolytes normal. Renal function stable. Troponin normal. Procalcitonin is elevated, COVID flu and RSV negative, CT scan of the chest shows evidence of mild bronchitis but no pneumonia. No evidence of PE or focal consolidations. I suspect that the patient's elevated procalcitonin is more secondary to the notable cellulitis on his right lower extremity. Patient's oxygen remained stable with breathing treatments steroids. Diagnosis COPD exacerbation and right-sided cellulitis. Due to the patient's multiple comorbidities, his notably unkempt nature, his history of poor outpatient follow-up and care, I do feel that he would be best treated with an initial admission to make sure his COPD exacerbation stabilizes, and his cellulitis stabilizes with initial IV antibiotics given the fulminant nature. We will reach out to the hospitalist for admission. Will start him on 600 mg of clindamycin IV. Discussed the case with the hospitalist Dr. Stewart, he agrees with the assessment and plan. I have extensively reviewed the treatment plan with the patient. I have addressed all patient concerns at this time. I have also discussed the plan with the admitting physician and they agree with the current assessment and plan and have agreed to assume responsibility for the patient. All parties demonstrate verbal understanding and agreement with our assessment and plan at this time. The documentation in this chart was dictated using [employer] dictation software. Please excuse any dictation errors. FINDINGS: The right common femoral, femoral and popliteal veins demonstrate normal compressibility, augmentation, and color Doppler. The posterior tibial veins are patent. The saphenofemoral junction is unremarkable. There is no evidence of a Carter cyst. The soft tissues are unremarkable. IMPRESSION: No evidence of a right lower extremity DVT. FINDINGS: The left common femoral, femoral and popliteal veins demonstrate normal compressibility, augmentation, and color Doppler. The posterior tibial veins are patent. The saphenofemoral junction is unremarkable. There is no evidence of a Carter cyst. The soft tissues are unremarkable. IMPRESSION: No evidence of a left lower extremity DVT. FINDINGS: The examination is limited due to patient motion artifact. Tracheobronchial tree: Patent where visualized. No bronchiectasis. There is mild bronchial wall thickening seen in the lower lobes. Pulmonary parenchyma: No consolidation or dominant measurable mass. There is dependent atelectasis present. There are no focal consolidating infiltrate seen. There are no suspicious pulmonary nodules. Pulmonary Arteries: No evidence of filling defect to suggest pulmonary emboli. Mediastinum and Ofelia: No dominant adenopathy or fluid collection. The esophagus is unremarkable. Visualized thyroid gland: Unremarkable. Pleura: No effusion or pneumothorax. Heart: The heart is not dilated. Coronary artery calcifications are present. No pericardial effusion. Aorta: Thoracic aorta non-dilated. No evidence of dissection. Atherosclerotic calcification is present. Upper abdomen: Calcified granuloma are seen in the spleen and liver. Soft tissues: Unremarkable. Bones: Within normal limits for the patient's age.Sternal wires are in place. IMPRESSION: 1. There is no evidence of a pulmonary embolism or thoracic aortic aneurysm. 2. Mild bronchial wall thickening in the lower lobes. This can be seen with bronchitis. Please correlate clinically. 3. There are no focal consolidating infiltrates in the lungs. Quality:SDOH Health Related Social Needs: Health related social needs material hardship Health related social needs details denies need. PFSH All Active Problems (Updated 12/26/24 @ 12:19 by Rohan Liao DO) COPD exacerbation (Acute) Cellulitis of leg, right (Acute) Leg wound, right (Acute) Leg wound, left (Acute) Leg wound, right (Acute) Nicotine dependence (Acute) Hypertensive emergency (Acute) Hypertension (Chronic) Cellulitis of leg, right (Acute) Right middle lobe pneumonia (Acute) Hypoxia (Acute) Sepsis (Acute) Leukocytosis (Acute) Mild shortness of breath (Acute) Chest pain (Acute) Hypoxia (Acute) Recurrent apnea (Acute) Hypertensive emergency (Acute) Bilateral edema of lower extremity (Acute) Dyspnea (Acute) Right rotator cuff tear (Acute) Abnormal CT scan, kidney (Acute) Anxiety (Chronic) Medical non-compliance (Acute) Aragon esophagus (Acute) Opiate dependence (Chronic) managed on suboxone Medical History Palliative care encounter Obstructive sleep apnea Chronic venous insufficiency COPD (chronic obstructive pulmonary disease) Diabetic neuropathy Hx of deep venous thrombosis on Coumadin Diabetes mellitus Hypertension Cocaine abuse 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 S/P percutaneous endoscopic gastrostomy (PEG) tube placement History of ankle surgery S/P spinal surgery Family History Father No problems noted. Mother COPD (chronic obstructive pulmonary disease) Hypertension Diabetes Heart disease Sister Stroke Social History Smoking/Tobacco Use Status: Current every day Tobacco Type: cigarettes Years smoked: 44 Tobacco: How many years used: 40 Smoking risk assessment performed?: Yes Alcohol Intake: former Drug use: Daily Substance use type: marijuana and crack/cocaine Details: last used marijuana 10/06/24. last use of crack/cocaine 10/09/24 Caregiver/Support person: Yes Household members: friend(s) Housing: house Number of Children: 0 number of grandchildren: 1 current occupation: Disabled Pets and animals: Yes Pets and animals: cat(s) Current gender identity: male What type of physical activity do you participate in: none Do you feel safe at home: Yes Do you feel safe in your relationship?: Yes Additional Social history: Lives with ex- Vanessa, who is his caregiver. Lives in private home.
[2024-12-26] MEDS: Normal Saline - Diluent 50 ML VIAL IJ (09:28)
[2024-12-26] MEDS: Omnipaque 350 MG/ML 100 ML BTL IJ (09:28)
[2024-12-26] MEDS: Normal Saline Flush 10 ML SYR IVP ×2 (09:28→20:59)
[2024-12-26 09:31] LABS: Troponin I 19 ng/L (<or=76)
[2024-12-26] MEDS: CLINDAMYCIN 600 MG/50 ML BAG 100 MG IVPB ×3 (10:18→22:31)
--- NOTE | 2024-12-26 10:30 | DI.US_ITS ---
Exam(s) US LOWER EXTREMITY VENOUS RT EXAM: US LOWER EXTREMITY VENOUS RT CLINICAL HISTORY: eval for DVT TECHNIQUE: Right lower extremity venous ultrasound performed using grayscale, color-flow, and spectral Doppler analysis. COMPARISON: US US LOWER EXTREMITY VENOUS RT from 05/20/2024 FINDINGS: The right common femoral, femoral and popliteal veins demonstrate normal compressibility, augmentation, and color Doppler. The posterior tibial veins are patent. The saphenofemoral junction is unremarkable. There is no evidence of a Carter cyst. The soft tissues are unremarkable. IMPRESSION: No evidence of a right lower extremity DVT. DATA REPOSITORY:
[2024-12-26 11:28] LABS: Troponin I 18 ng/L (<or=76)
--- NOTE | 2024-12-26 12:55 | W.PM.HP.N ---
Date of service: 12/26/24 Time of Service: 17:07 Assessment and Plan Assessment and plan (1) COPD (chronic obstructive pulmonary disease): Assessment and plan: -current exacerbation, no evidence of consolidation on CT scan concerning for PNA -continue steroids (PO prednisone) and nebulizers (duoneb, albuterol) PRN (2) Leg wound, right: Status: Acute Assessment and plan: -R lower extremity cellulitis, IV clindamycin TID started for MRSA coverage -wound care, including dressing changes by nursing staff -monitor for response to therapy -blood cultures pending (3) Hypertension: Status: Chronic Assessment and plan: -blood pressure elevated today (170s-190s systolic), consistent with baseline -continue home medication regimen (amlodipine 2.5 mg daily, lisinopril 40 mg daily) (4) Opiate dependence: Status: Chronic Assessment and plan: -on suboxone, continue home dosing (5) Chronic venous insufficiency: Assessment and plan: -likely contributory to recurrent cellulitis. Elevation and compression stockings as tolerated History of Present Illness Narrative: Mio is a 59 year old male with history of T2DM, HTN, COPD, chronic venous insufficiency, and aortic valve replacement secondary to aortic valve endocarditis, as well as h/o blood clots, MRSA septicemia, endocarditis, and CVA without severe deficits who presented to the emergency dept today for evaluation of difficulty breathing and RLE cellulitis/pain. He also reports pain to RLE attributed to cellulitis, which became more painful and itching with sores on it 4-5 days ago. Mio reports symptoms started a few weeks ago with nasal congestion/runny nose, sore throat, headaches, and cough productive of green sputum. Became significantly worsened today, when he developed difficulty breathing and chest pressure. He does report an episode of sharp L sided chest pain a few days ago which was brief and resolved spontaneously; says this was not accompanied by any other symptoms. He denies trauma, hemoptysis, recent fever/chills, change in PO intake, nausea/vomiting, change in bowel/bladder function, numbness/tingling to distal R lower extremity. He has a history of recurrent cellulitis to RLE, most recently treated for this in September, which he says greatly improved until a few days ago. He was brought in today by EMS, reported to have O2 sat in 80s-90s% which responded well to supplemental O2. Workup in ED notable for evidence of mild bronchitis on CT and slightly elevated procalcitonin. CBC, CMP, VBG coags, serial troponins, COVID/flu/RSV all reassuring. Pt given IV abx (clindamycin) for RLE cellulitis and treated COPD exacerbation solumedol and nebulizers, O2 sat in mid90s on room air. Pt admitted for cellulitis and COPD exacerbation. Mio was eating lunch in med surg unit during history and physical exam, says he is currently feeling much better with his breathing. He feels the steroids and breathing treatments have been helpful. Review of Systems All systems reviewed & are unremarkable except as noted in HPI and below PFSH All Active Problems (Updated 12/26/24 @ 12:19 by Rohan Liao DO) COPD exacerbation (Acute) Cellulitis of leg, right (Acute) Leg wound, right (Acute) Leg wound, left (Acute) Leg wound, right (Acute) Nicotine dependence (Acute) Hypertensive emergency (Acute) Hypertension (Chronic) Cellulitis of leg, right (Acute) Right middle lobe pneumonia (Acute) Hypoxia (Acute) Sepsis (Acute) Leukocytosis (Acute) Mild shortness of breath (Acute) Chest pain (Acute) Hypoxia (Acute) Recurrent apnea (Acute) Hypertensive emergency (Acute) Bilateral edema of lower extremity (Acute) Dyspnea (Acute) Right rotator cuff tear (Acute) Abnormal CT scan, kidney (Acute) Anxiety (Chronic) Medical non-compliance (Acute) Aragon esophagus (Acute) Opiate dependence (Chronic) managed on suboxone Medical History Palliative care encounter Obstructive sleep apnea Chronic venous insufficiency COPD (chronic obstructive pulmonary disease) Diabetic neuropathy Hx of deep venous thrombosis on Coumadin Diabetes mellitus Hypertension Cocaine abuse 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 S/P percutaneous endoscopic gastrostomy (PEG) tube placement History of ankle surgery S/P spinal surgery Family History Father No problems noted. Mother COPD (chronic obstructive pulmonary disease) Hypertension Diabetes Heart disease Sister Stroke Social History Smoking/Tobacco Use Status: Current every day Tobacco Type: cigarettes Years smoked: 44 Tobacco: How many years used: 40 Smoking risk assessment performed?: Yes Alcohol Intake: former Drug use: Daily Substance use type: marijuana and crack/cocaine Details: last used marijuana 10/06/24. last use of crack/cocaine 10/09/24 Caregiver/Support person: Yes Household members: friend(s) Housing: house Number of Children: 0 number of grandchildren: 1 current occupation: Disabled Pets and animals: Yes Pets and animals: cat(s) Current gender identity: male What type of physical activity do you participate in: none Do you feel safe at home: Yes Do you feel safe in your relationship?: Yes Additional Social history: Lives with ex- Vanessa, who is his caregiver. Lives in private home. Meds Allergies and Home Medications Allergies Allergy/AdvReac Type Severity Reaction Status Date / Time Penicillins AdvReac Severe Vomiting Verified 12/26/24 07:33 hydrocodone AdvReac Intermediate vomiting Verified 12/26/24 07:33 Home Medications Medication Instructions Recorded Confirmed Type esomeprazole magnesium 40 mg 40 mg PO DAILY 05/05/20 12/26/24 History capsule,delayed release (Nexium) aspirin 81 mg tablet 81 mg PO DAILY 08/03/20 12/26/24 History duloxetine 30 mg capsule,delayed 30 mg PO BID 08/03/20 12/26/24 History release acetaminophen 325 mg tablet 1,000 mg PO Q6H PRN 09/27/20 12/26/24 History (Tylenol) albuterol sulfate 90 mcg/actuation 2 inh inhalation Q6H PRN 04/12/22 12/26/24 History aerosol inhaler cyanocobalamin (vitamin B-12) 1,000 mcg PO DAILY 03/06/23 12/26/24 History 1,000 mcg tablet (Vitamin B-12) amlodipine 2.5 mg tablet 2.5 mg PO DAILY 09/30/23 12/26/24 History gabapentin 600 mg tablet 600 mg PO TID 09/30/23 12/26/24 History beclomethasone dipropionate 80 1 inh inhalation BID PRN 12/27/23 12/26/24 History mcg/actuation HFA breath activated aerosol (Qvar RediHaler) spironolactone 25 mg tablet 25 mg PO DAILY #30 tabs 04/26/24 12/26/24 Rx lisinopril 40 mg tablet 40 mg PO DAILY 07/07/24 12/26/24 History buprenorphine 8 mg-naloxone 2 mg 1 film sublingual DAILY 10/01/24 12/26/24 History sublingual film (Suboxone) clonidine 0.1 mg/24 hr weekly 0.1 mg transdermal Q7D #4 ea 10/04/24 12/26/24 Rx transdermal patch docusate sodium 100 mg capsule 100 mg PO BID #30 caps 10/04/24 12/26/24 Rx (Colace) naloxone 4 mg/actuation nasal 1 spray intranasal Q3M #2 ea 10/04/24 12/26/24 Rx spray (Narcan) polyethylene glycol 3350 17 gram 17 g PO DAILY #30 ea 10/04/24 12/26/24 Rx oral powder packet tramadol 50 mg tablet 50 mg PO Q6H PRN PRN #20 tabs 10/04/24 12/26/24 Rx Exam Const General: cooperative, comfortable, no acute distress, well developed and disheveled Nutritional Appearance: average body habitus Orientation: alert [facility] Head: normal to inspection Ears: hearing grossly normal bilaterally General nose exam: nasal discharge (dried nasal drainage around nares) Resp Effort & Inspection: cough and tachypneic Auscultation: rhonchi and wheezes expiratory wheezes, inspiratory wheezes and scattered wheezes Cardio Rate: regular rate Rhythm: regular rhythm GI Inspection: normal to inspection and non-distended Palpation: soft and nontender Extrem General: full ROM, capillary refill normal and other (hemosiderin staining to bilateral LEs) Left lower extremity: lower leg Details: erythema, tenderness, non-pitting edema, abrasion (healed abrasions/scabs on anterior bruno, no drainage), warmth and other (healed shallow ulceration to proximal bruno, approx 2 cm diameter); no ecchymosis and no crepitus Results Labs 12/26/24 07:58 12/26/24 07:58 Labs: Laboratory Results - last 24 hr 12/26/24 12/26/24 12/26/24 07:47 07:58 09:05 WBC 9.00 RBC 4.59 Hgb 12.8 L Hct 39.6 L MCV 86 MCH 27.9 MCHC 32.3 RDW 14.6 H Plt Count 373 MPV 9.4 Immature Gran % 0.3 Neutrophils % 68.7 Lymphocytes % 18.1 Monocytes % 8.9 Eosinophils % 3.0 Basophils % 1.0 Nucleated RBC % 0.0 Absolute Neutrophils 6.18 Absolute Lymphocytes 1.63 Absolute Monocytes 0.80 Absolute Eosinophils 0.27 Absolute Basophils 0.09 PT 10.6 INR 1.1 APTT 27.5 VBG pH 7.36 VBG pCO2 49 VBG pO2 43 VBG HCO3 28 VBG Total CO2 25 VBG O2 Saturation 75 VBG Base Excess 2 VBG Lactate 1.3 Sodium 144 Potassium 4.0 Chloride 107 Carbon Dioxide 29.0 Anion Gap 8.0 BUN 34 H Creatinine 1.5 H Est GFR (CKD-EPI 2020) 53.30 Glucose 121 H Calcium 8.9 Total Bilirubin 0.1 L AST 10 L ALT 14 L Alkaline Phosphatase 89 Troponin I 19 19 Total Protein 7.8 Albumin 3.3 L Procalcitonin 0.13 Ethyl Alcohol < 3.0 COVID-19 Source Nasopharynx SARS-CoV-2 (PCR) Negative Influenza Type A (PCR) Negative Influenza Type B (PCR) Negative RSV (PCR) Negative 12/26/24 10:58 WBC RBC Hgb Hct MCV MCH MCHC RDW Plt Count MPV Immature Gran % Neutrophils % Lymphocytes % Monocytes % Eosinophils % Basophils % Nucleated RBC % Absolute Neutrophils Absolute Lymphocytes Absolute Monocytes Absolute Eosinophils Absolute Basophils PT INR APTT VBG pH VBG pCO2 VBG pO2 VBG HCO3 VBG Total CO2 VBG O2 Saturation VBG Base Excess VBG Lactate Sodium Potassium Chloride Carbon Dioxide Anion Gap BUN Creatinine Est GFR (CKD-EPI 2020) Glucose Calcium Total Bilirubin AST ALT Alkaline Phosphatase Troponin I 18 Total Protein Albumin Procalcitonin Ethyl Alcohol COVID-19 Source SARS-CoV-2 (PCR) Influenza Type A (PCR) Influenza Type B (PCR) RSV (PCR) Last Vital Signs Temp 97.3 F L 12/26/24 10:37 Pulse 72 12/26/24 10:37 Resp 42 H 12/26/24 08:20 BP 171/82 H 12/26/24 10:37 Pulse Ox 93 11/06/25 10:37 Time Spent Time spent with Patient: >75 minutes Time was spent: preparing to see the patient(eg.review tests), obtaining and/or reviewing separately otained hiistory, ordering medications,tests, procedures, referring, communicating with other health wild animal caretaker, indepentently interpreting results, counseling the patient and care coordination
--- NOTE | 2024-12-26 14:02 | W.PC.ACHO ---
Registration Status: ADM IN Primary Language: Preferred Language: Faroese ED Information & Data Chief Complaint SOB 12/26/24 09:00 Triage Note SOB x2 weeks. worse today. 12/26/24 07:17 green and yellow sputum. chest pressure today. hypertensive with low O2 sat . cellulitis bilateral lower legs. Medical / Surgical History (Last Reviewed 10/08/24 @ 06:37 by Arya Lei MD) Palliative care encounter Obstructive sleep apnea Chronic venous insufficiency COPD (chronic obstructive pulmonary disease) Diabetic neuropathy Hx of deep venous thrombosis Diabetes mellitus Hypertension Cocaine abuse Cerebral septic emboli GI bleed Osteomyelitis of left fibula Endocarditis Depression MSSA (methicillin susceptible Staphylococcus aureus) septicemia (Last Reviewed 10/08/24 @ 06:37 by Arya Lei MD) S/P endoscopy H/O aortic valve replacement S/P hardware removal S/P percutaneous endoscopic gastrostomy (PEG) tube placement History of ankle surgery S/P spinal surgery Most Recent Vital Signs Temperature 36.3 C L 12/26/24 10:37 Temperature Source Temporal Artery Scan 12/26/24 10:37 Pulse 72 12/26/24 10:37 Pulse 66 12/26/24 08:20 Respiratory Rate 42 H 12/26/24 08:20 Respiratory Effort Normal, Non-Labored 12/26/24 08:20 Respiratory Depth Normal 12/26/24 08:20 Respiratory Pattern Normal 12/26/24 08:20 Blood Pressure 171/82 H 12/26/24 10:37 Blood Pressure Mean 111 12/26/24 10:37 Pulse Oximetry 93 12/26/24 10:37 Oxygen Delivery Method Room Air 12/26/24 10:37 Oxygen Flow Rate 0 12/26/24 10:37 Pain Level 5 12/26/24 10:37 Comment pt requesting oxygen but holding the NC in his left hand pt refusing to keep BP on for a reading 12/26/24 07:17 Allergies Penicillins Adverse Reaction (Severe, Verified 12/26/24 07:33) Vomiting hydrocodone Adverse Reaction (Intermediate, Verified 12/26/24 07:33) vomiting Precautions Isolation Standard precaution 12/26/24 07:35 Active Medications Generic Name Dose Route Start Last Admin Trade Name Freq PRN Reason Stop Dose Admin Iohexol 100 ml 12/26/24 09:30 12/26/24 09:28 Omnipaque 350 Mg/Ml 100 Ml Btl IJ 01/25/25 23:59 100 ml DIRECTED HAMLET Administration Sodium Chloride 0 ml 12/26/24 08:30 12/26/24 13:19 Normal Saline Flush 10 Ml Syr IVP Not Given BID HAMLET Sodium Chloride 50 ml 12/26/24 09:30 12/26/24 09:28 Normal Saline - Diluent 50 Ml Vial IJ 50 ml DIRECTED HAMLET Administration Sodium Chloride 0 ml 12/26/24 09:22 12/26/24 09:28 Normal Saline Flush 10 Ml Syr IVP 10 ml PRN PRN Administration IV IV Catheter Type [Left Saline Lock Antecubital] IV Catheter Gauge [Left 18 Antecubital] Diet Orders Category Date Time Status Heart Healthy Eating [DIET] Nutrition 12/26/24 Dinner Active Diagnostics 12/26/24 12/26/24 12/26/24 Range/Units 10:58 09:05 07:58 WBC 9.00 (4.4-10.8) 10^3/uL RBC 4.59 (4.36-5.78) 10^6/uL Hgb 12.8 L (13.5-17.5) g/dL Hct 39.6 L (40.0-50.0) % MCV 86 (80-95) fL MCH 27.9 (27.0-33.0) pg MCHC 32.3 (32.0-36.0) % RDW 14.6 H (11.8-14.1) % Plt Count 373 (130-400) 10^3/uL MPV 9.4 (8.0-11.0) fL Immature Gran % 0.3 % Neutrophils % 68.7 % Lymphocytes % 18.1 % Monocytes % 8.9 % Eosinophils % 3.0 % Basophils % 1.0 % Nucleated RBC % 0.0 (0.0-0.3) % Absolute Neutrophils 6.18 (1.2-6.7) 10^3/uL Absolute Lymphocytes 1.63 (1.2-3.4) 10^3/uL Absolute Monocytes 0.80 (0.1-0.8) 10^3/uL Absolute Eosinophils 0.27 (0.0-0.7) 10^3/uL Absolute Basophils 0.09 (0.0-0.2) 10^3/uL PT 10.6 (9.1-11.1) sec INR 1.1 (0.9-1.1) APTT 27.5 (20.6-30.2) sec VBG pH 7.36 (7.31-7.41) VBG pCO2 49 (41-51) mmHg VBG pO2 43 mmHg VBG HCO3 28 (23-28) mmol/L VBG Total CO2 25 (24-29) mmol/L VBG O2 Saturation 75 % VBG Base Excess 2 (-2-3) mmol/L VBG Lactate 1.3 (<or=2.0) mmol/L Sodium 144 (136-145) mmol/L Potassium 4.0 (3.5-5.1) mmol/L Chloride 107 (98-107) mmol/L Carbon Dioxide 29.0 (21.0-32.0) mmol/L Anion Gap 8.0 (3-11) mmol/L BUN 34 H (7-18) mg/dL Creatinine 1.5 H (0.70-1.30) mg/dL Est GFR (CKD-EPI 2020) 53.30 (mL/min/1.73m2) Glucose 121 H (74-106) mg/dL Calcium 8.9 (8.5-10.1) mg/dL Total Bilirubin 0.1 L (0.2-1.0) mg/dL AST 10 L (15-37) U/L ALT 14 L (16-63) U/L Alkaline Phosphatase 89 (46-116) U/L Troponin I 18 19 19 (<or=76) ng/L Total Protein 7.8 (6.4-8.2) g/dL Albumin 3.3 L (3.4-5.0) g/dL Procalcitonin 0.13 ng/mL Ethyl Alcohol < 3.0 (<10) mg/dL COVID-19 Source SARS-CoV-2 (PCR) (Negative) Influenza Type A (PCR) (Negative) Influenza Type B (PCR) (Negative) RSV (PCR) (Negative) 12/26/24 Range/Units 07:47 WBC (4.4-10.8) 10^3/uL RBC (4.36-5.78) 10^6/uL Hgb (13.5-17.5) g/dL Hct (40.0-50.0) % MCV (80-95) fL MCH (27.0-33.0) pg MCHC (32.0-36.0) % RDW (11.8-14.1) % Plt Count (130-400) 10^3/uL MPV (8.0-11.0) fL Immature Gran % % Neutrophils % % Lymphocytes % % Monocytes % % Eosinophils % % Basophils % % Nucleated RBC % (0.0-0.3) % Absolute Neutrophils (1.2-6.7) 10^3/uL Absolute Lymphocytes (1.2-3.4) 10^3/uL Absolute Monocytes (0.1-0.8) 10^3/uL Absolute Eosinophils (0.0-0.7) 10^3/uL Absolute Basophils (0.0-0.2) 10^3/uL PT (9.1-11.1) sec INR (0.9-1.1) APTT (20.6-30.2) sec VBG pH (7.31-7.41) VBG pCO2 (41-51) mmHg VBG pO2 mmHg VBG HCO3 (23-28) mmol/L VBG Total CO2 (24-29) mmol/L VBG O2 Saturation % VBG Base Excess (-2-3) mmol/L VBG Lactate (<or=2.0) mmol/L Sodium (136-145) mmol/L Potassium (3.5-5.1) mmol/L Chloride (98-107) mmol/L Carbon Dioxide (21.0-32.0) mmol/L Anion Gap (3-11) mmol/L BUN (7-18) mg/dL Creatinine (0.70-1.30) mg/dL Est GFR (CKD-EPI 2020) (mL/min/1.73m2) Glucose (74-106) mg/dL Calcium (8.5-10.1) mg/dL Total Bilirubin (0.2-1.0) mg/dL AST (15-37) U/L ALT (16-63) U/L Alkaline Phosphatase (46-116) U/L Troponin I (<or=76) ng/L Total Protein (6.4-8.2) g/dL Albumin (3.4-5.0) g/dL Procalcitonin ng/mL Ethyl Alcohol (<10) mg/dL COVID-19 Source Nasopharynx SARS-CoV-2 (PCR) Negative (Negative) Influenza Type A (PCR) Negative (Negative) Influenza Type B (PCR) Negative (Negative) RSV (PCR) Negative (Negative) 12/26/24 08:15 Blood Culture - Pending Blood 12/26/24 07:58 Blood Culture - Pending Blood Intake and Output - 24 Hour Total 12/26/24 07:04 thru 12/26/24 13:49 Intake Total 60 Balance 60 Weight 83 kg Intake: IV 60 Other: Urine Appearance Clear Falls Risk Assessment History of Falls No History 12/26/24 13:49 Contributing Factors Impairments 12/26/24 13:49 Ambulatory Aids Independent 12/26/24 13:49 Tubes/Lines W/no contributing factors 12/26/24 13:49 Gait Evaluation W/any additional score 12/26/24 13:49 Cognition No cognitive impairment 12/26/24 13:49 Fall Total Score 33 12/26/24 13:49 Level of Risk Moderate Risk 12/26/24 13:49 Problems (Last Reviewed 10/08/24 @ 06:37 by Arya Lei MD) Leg wound, right (Acute) Hypertension (Chronic) Opiate dependence (Chronic) v v v v v v v v v Sending and/or Receiving Nurses: Please use comment section below to note any information pertinent to the patient hand-off not included above. Information / Comments: Pt brought to floor via stretcher and settled into room by [employer] SUPERVISOR. VS obtained and call lozada placed within reach Report received from: Sylvia
[2024-12-26] MEDS: Gabapentin 600 MG TAB PO ×2 (15:02→20:59)
[2024-12-26] MEDS: predniSONE 20 MG TAB 40 MG PO (15:03)
[2024-12-26] MEDS: cloNIDine 0.1 MG PATCH TD (18:38)
[2024-12-26] MEDS: DULoxetine 30 MG CAP PO (20:59)
[2024-12-26] MEDS: traMADol 50 MG TAB PO (21:09)
[2024-12-26] MEDS: Acetaminophen 325 MG TAB 1000 MG PO (21:09)
[2024-12-27 02:55] VITALS: BP 138/82; PULSE 59; RESP 17; TEMP 36.2; O2SAT 95
[2024-12-27] MEDS: CLINDAMYCIN 600 MG/50 ML BAG 100 MG IVPB ×3 (06:16→22:04)
[2024-12-27 06:49] LABS: HCT 39.1 % (40.0-50.0); HGB 12.5 g/dL (13.5-17.5); MCH 27.1 pg (27.0-33.0); MCHC 32.0 % (32.0-36.0); MCV 85 fL (80-95); MPV 9.5 fL (8.0-11.0); Platelet Count 411 10^3/uL (130-400); RBC 4.62 10^6/uL (4.36-5.78); RDW 14.1 % (11.8-14.1); RDW-SD 43.5 fL; WBC 14.58 10^3/uL (4.4-10.8)
[2024-12-27 07:02] LABS: Anion Gap 10.5 mmol/L (3-11); BUN 28 mg/dL (7-18); CO2 24.5 mmol/L (21.0-32.0); Calcium 8.5 mg/dL (8.5-10.1); Chloride 105 mmol/L (98-107); Glucose 121 mg/dL (74-106); Magnesium 2.1 mg/dL (1.8-2.4); Potassium 4.1 mmol/L (3.5-5.1); Sodium 140 mmol/L (136-145)
--- NOTE | 2024-12-27 07:18 | W.PM.PROGNOT ---
Date of Service Date of service: 12/27/24 Time of Service: 07:30 Assessment and Plan Assessment and plan (1) COPD (chronic obstructive pulmonary disease): Assessment and plan: -Improving today, no cough during interview (admits to occasional cough with sputum now). Wheezes improved, only scattered end-exp wheezes. -current exacerbation, no evidence of consolidation on CT scan concerning for PNA -continue steroids (PO prednisone) and nebulizers (duoneb, albuterol) PRN (2) Leg wound, right: Status: Acute Assessment and plan: -Improving redness and pain to R lower extremity cellulitis -continue clindamycin TID for MRSA coverage -wound care, including dressing changes by nursing staff as needed -continue monitoring response to therapy -blood cultures pending (3) Hypertension: Status: Chronic Assessment and plan: -blood pressure consistent with baseline -continue home medication regimen (amlodipine 2.5 mg daily, lisinopril 40 mg daily) (4) Opiate dependence: Status: Chronic Assessment and plan: -on suboxone, continue home dosing (5) Chronic venous insufficiency: Assessment and plan: -likely contributory to recurrent cellulitis. Elevation and compression stockings as tolerated Subjective Subjective Interval history since last seen: No significant overnight events reported. Mio reports he is feeling better today; has good energy and says that shortness of breath and cough have improved. Denies fever/chills, chest pain, shortness of breath, change in PO intake. Also reports that his leg is improving; pain and swelling have decreased. He does continue to experience itching, but has not been scratching at it. Exam Const General: cooperative, comfortable, no acute distress, well developed and disheveled Nutritional Appearance: average body habitus Orientation: alert [facility] Head: normal to inspection Ears: hearing grossly normal bilaterally General nose exam: nasal discharge (dried nasal drainage around nares) Resp Effort & Inspection: normal respiratory effort and able to speak in complete sentences Auscultation: wheezes expiratory wheezes and scattered wheezes Cardio Rate: regular rate Rhythm: regular rhythm GI Inspection: normal to inspection and non-distended Palpation: soft and nontender Extrem General: full ROM, capillary refill normal and other (hemosiderin staining to bilateral LEs) Left lower extremity: lower leg (edema has improved) Details: erythema, tenderness, abrasion (healed abrasions/scabs on anterior bruno, no drainage), warmth and other (healed shallow ulceration to proximal bruno, approx 2 cm diameter); no ecchymosis and no crepitus Objective Last Vital Signs Temp 97.2 F L 12/27/24 02:55 Pulse 59 L 12/27/24 02:55 Resp 17 12/27/24 02:55 BP 138/82 12/27/24 02:55 Pulse Ox 95 12/27/24 02:55 Laboratory Results - last 24 hr 12/26/24 12/26/24 12/26/24 07:47 07:58 09:05 WBC 9.00 RBC 4.59 Hgb 12.8 L Hct 39.6 L MCV 86 MCH 27.9 MCHC 32.3 RDW 14.6 H Plt Count 373 MPV 9.4 Immature Gran % 0.3 Neutrophils % 68.7 Lymphocytes % 18.1 Monocytes % 8.9 Eosinophils % 3.0 Basophils % 1.0 Nucleated RBC % 0.0 Absolute Neutrophils 6.18 Absolute Lymphocytes 1.63 Absolute Monocytes 0.80 Absolute Eosinophils 0.27 Absolute Basophils 0.09 PT 10.6 INR 1.1 APTT 27.5 VBG pH 7.36 VBG pCO2 49 VBG pO2 43 VBG HCO3 28 VBG Total CO2 25 VBG O2 Saturation 75 VBG Base Excess 2 VBG Lactate 1.3 Sodium 144 Potassium 4.0 Chloride 107 Carbon Dioxide 29.0 Anion Gap 8.0 BUN 34 H Creatinine 1.5 H Est GFR (CKD-EPI 2020) 53.30 Glucose 121 H Calcium 8.9 Magnesium Total Bilirubin 0.1 L AST 10 L ALT 14 L Alkaline Phosphatase 89 Troponin I 19 19 Total Protein 7.8 Albumin 3.3 L Procalcitonin 0.13 Ethyl Alcohol < 3.0 COVID-19 Source Nasopharynx SARS-CoV-2 (PCR) Negative Influenza Type A (PCR) Negative Influenza Type B (PCR) Negative RSV (PCR) Negative 12/26/24 12/27/24 10:58 06:07 WBC 14.58 H RBC 4.62 Hgb 12.5 L Hct 39.1 L MCV 85 MCH 27.1 MCHC 32.0 RDW 14.1 Plt Count 411 H MPV 9.5 Immature Gran % Neutrophils % Lymphocytes % Monocytes % Eosinophils % Basophils % Nucleated RBC % Absolute Neutrophils Absolute Lymphocytes Absolute Monocytes Absolute Eosinophils Absolute Basophils PT INR APTT VBG pH VBG pCO2 VBG pO2 VBG HCO3 VBG Total CO2 VBG O2 Saturation VBG Base Excess VBG Lactate Sodium 140 Potassium 4.1 Chloride 105 Carbon Dioxide 24.5 Anion Gap 10.5 BUN 28 H Creatinine 1.3 Est GFR (CKD-EPI 2020) 63.28 Glucose 121 H Calcium 8.5 Magnesium 2.1 Total Bilirubin AST ALT Alkaline Phosphatase Troponin I 18 Total Protein Albumin Procalcitonin Ethyl Alcohol COVID-19 Source SARS-CoV-2 (PCR) Influenza Type A (PCR) Influenza Type B (PCR) RSV (PCR) Time Spent with Patient Time Spent with Patient: >50 minutes Time was spent: preparing to see the patient(eg.review tests), obtaining and/or reviewing separately otained hiistory, ordering medications,tests, procedures, referring, communicating with other health hospice patient care secretary, indepentently interpreting results, counseling the patient and care coordination
[2024-12-27 07:50] VITALS: BP 140/81; PULSE 75; RESP 18; TEMP 36.4; O2SAT 96
[2024-12-27] MEDS: Enoxaparin 40 MG/0.4 ML SYR SC (07:53)
[2024-12-27] MEDS: Buprenorphine/Naloxone 8 mg/2 mg FILM 1 EACH SL (07:53)
[2024-12-27] MEDS: Lisinopril 20 MG TAB 40 MG PO (07:54)
[2024-12-27] MEDS: DULoxetine 30 MG CAP PO ×2 (07:54→22:03)
[2024-12-27] MEDS: Esomeprazole 40 MG CAPCR PO (07:54)
[2024-12-27] MEDS: Spironolactone 25 MG TAB PO (07:55)
[2024-12-27] MEDS: amLODIPine 2.5 MG TAB PO (07:55)
[2024-12-27] MEDS: Aspirin E.C. 81 MG TABEC PO (07:55)
[2024-12-27] MEDS: Gabapentin 600 MG TAB PO ×3 (07:55→22:03)
[2024-12-27] MEDS: Normal Saline Flush 10 ML SYR IVP ×3 (07:55→22:04)
--- NOTE | 2024-12-27 09:00 | INITIAL_ITS ---
Date of service: 12/27/24 Time of Service: 14:53 Care Management Initial Assmt Initial Assessment Reason for Hospitalization: RLE Cellulitis, COPD Exacerbation Functional Status/Living Situation Patient Presentation: Mio was lying in bed and sleeping when CM met with him. He easily awoke to his name. Mio presented to the ED for evaluation of 1 to 2 weeks of cough, with productive green sputum, mild chest pressure which began today, and cellulitis pain in his right lower extremity; See ED documentation. Per report, he will likely receive 1-2 days of IV antibiotics prior to transitioning to orals. He shared he is lives in [place] with a shuttle operator caregiver, which is also his ex , Arline. Per Aminah (Mio's community relations specialist from [facility]), he receives CF benefit with 52.15 hours of paid personal care a bi-weekly and Arline is that caregiver. Per Aminah, Arline does most of his daily coordination and offers a lot of support to Mio. He states he currently does not receive any additional home or community-based support but is agreeable to PT/RN services. CM will continue to follow. Town of Residence: [place] Resides with: Other (Home caregiver Arline Graham through [employer]) Significant Other/Family: Out of area (States there are no other family members) Caregiver/Guardian: /caregiver, Arline Vanegas Employment Status: Employed Instrumental Activities of Daily Living (ADLs): Requires support Medications Medication Management: No Issues/Barriers identified Physical Functioning/Mobility Assistive Device: FWW Advance Directives Advance Directives: Do you have an Advance Directive: Y , 10:02 AD On File at [facility]: N 18/13, 08:23 Date Asked 09/30/24 09/30/24, 07:56 AD Date Reviewed COLST On File at [facility] COLST Date Scanned Code Status Resuscitation Status Full Code Portal Pt does not currently have a portal and education provided: Yes Insurance Coverage/Financial Issues Insurance: Medicaid of [place] - [id number] Care Team Visit Care Team Role Provider Type Evon Hwoard MD Primary Care Provider [facility] STAFF PHYSICIAN Rohan Liao DO Emergency Provider [facility] STAFF PHYSICIAN Felix Stewart MD Admit Provider [facility] STAFF PHYSICIAN Attending Provider Discharge Potential Discharge Needs: PCP F/U Appt Anticipated Barriers to Discharge: None Identified Patient/Family Education Needs: Review discharge instructions, discuss Ask Me Three Transportation: Private vehicle Plan: Anticipate Mio will return home with new HH PT/RN, once medically cleared. His caregiver, Arline, will drive him home via private vehicle. He will follow up with his PCP and discharge plan of care. CM will continue to follow. Social Determinants of Health Screening Social Determinants of health last assessed in clinic: 12/27/24 Will the Patient Participate in the Screening?: Yes Do you worry about having a steady place to live?: no Problems where you live: no known problems In the past 12 months, have you had to go without electric, gas, oil or water in your home?: no 1. Within the past 12 months, we worried whether our food would run out before we got money to buy more.: Never true 2. Within the past 12 months, the food we bought just didn't last and we didn't have money to get more.: Never true Has lack of transportation kept you from medical appointments or from doing things needed for daily living?: no Has anyone in your life made you feel unsafe or unsupported?: no How hard is it for you to pay for the very basics like food, housing, medical care, and heating? Would you say it is:: Not hard at all Do you want help finding or keeping work or a job?: I do not need or want help If for any reason you need help with day-to-day activities such as bathing, preparing meals, shopping, managing finances, etc., do you get the help you need?: I don’t need any help How often do you feel lonely or isolated from those around you?: Never Do you speak a language other than Yi at home?: No Does the patient want assistance with any of the above?: No Health Related Social Needs Health related social needs details: denies need. PFSH All Active Problems (Updated 12/26/24 @ 12:19 by Rohan Liao DO) COPD exacerbation (Acute) Cellulitis of leg, right (Acute) Leg wound, right (Acute) Leg wound, left (Acute) Leg wound, right (Acute) Nicotine dependence (Acute) Hypertensive emergency (Acute) Hypertension (Chronic) Cellulitis of leg, right (Acute) Right middle lobe pneumonia (Acute) Hypoxia (Acute) Sepsis (Acute) Leukocytosis (Acute) Mild shortness of breath (Acute) Chest pain (Acute) Hypoxia (Acute) Recurrent apnea (Acute) Hypertensive emergency (Acute) Bilateral edema of lower extremity (Acute) Dyspnea (Acute) Right rotator cuff tear (Acute) Abnormal CT scan, kidney (Acute) Anxiety (Chronic) Medical non-compliance (Acute) Aragon esophagus (Acute) Opiate dependence (Chronic) managed on suboxone Medical History Palliative care encounter Obstructive sleep apnea Chronic venous insufficiency COPD (chronic obstructive pulmonary disease) Diabetic neuropathy Hx of deep venous thrombosis on Coumadin Diabetes mellitus Hypertension Cocaine abuse 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 S/P percutaneous endoscopic gastrostomy (PEG) tube placement History of ankle surgery S/P spinal surgery Family History Father No problems noted. Mother COPD (chronic obstructive pulmonary disease) Hypertension Diabetes Heart disease Sister Stroke Social History Smoking/Tobacco Use Status: Current every day Tobacco Type: cigarettes Years smoked: 44 Tobacco: How many years used: 40 Smoking risk assessment performed?: Yes Alcohol Intake: former Drug use: Daily Substance use type: marijuana and crack/cocaine Details: last used marijuana 10/06/24. last use of crack/cocaine 10/09/24 Caregiver/Support person: Yes Household members: friend(s) Housing: house Number of Children: 0 number of grandchildren: 1 current occupation: Disabled Pets and animals: Yes Pets and animals: cat(s) Current gender identity: male What type of physical activity do you participate in: none Do you feel safe at home: Yes Do you feel safe in your relationship?: Yes Additional Social history: Lives with ex- Vanessa, who is his caregiver. Lives in private home. Readmission Within the Past 30 Days Yes or No: No
--- NOTE | 2024-12-27 10:04 | W.NUTRFU ---
Documented by User: Manjinder Howell 12/27/24 11:57 Date of service: 12/27/24 Time of Service: 09:30 Nutrition Note NOTE: Assessment: Patient admitted due to complications related to COPD. He presents with adequate nutrition intake and no complaints. Patient self-reportedly follows a heart-healthy diet, which the patient states the hospital has been accomodative of. Patient reports full consumption of all meals so far, with portions being well-sized. Patient requires soft food due to dental issues which patient states the hospital has been accommodative of. Patient lives with a hydroelectric station operator chief who prepares 3 meals a day. Patient reports no issues with food security outside of hospital. Patient appears well-nourished at a BMI of 25.5 kg/m^2. Height: 180 cm. Weight: 83 kg (decreasing steadily and intentionally, down from 110 kg in 07/2020). The patient's A1c levels have decreased significantly and intentionally from a peak of 11.9 in 10/2017 to a recent 6.2 in 09/2024. The most recent blood glucose measurement came in at 121 on 12/27/2024. The patient has not had a recent lipid panel, but the most recent measure in 04/2020 show all levels within their normal ranges (total cholesterol 147 mg/dL). A nutritional physical exam was not performed, but the patient showed no visual signs of malnutrition and appears well-fed. The patient continues to live with his ex- who also functions as his care-taker. The patient's ex- prepares 3 meals a day, and the patient is not concerned with social food issues or food insecurity. Estimated nutritional needs: 2,002 kcal/day (MSJ * 1.2 AF). Protein needs: 125g - 208 g/day. (1.5-2.5g per kg IBW) recommend closer to lower end of range. Fluid needs: 2,002 mL/day.(1mL per required kcal) Nutrition diagnosis: No significant nutrition diagnosis at this time, will continue to monitor for changes. Nutrition intervention: No acute intervention recommended at this time. Patient was given outpatient information for continued support following discharge. Monitoring: Will continue to monitor patient PO intake, weight, nutrition-related labs, and ongoing food preferences during admission. Time Spent in Nutritional Counseling and Treatment: 5 min Documented by User: Jeffrey DivyaARCHIE 12/27/24 12:01 Nutrition Note NOTE: Assessment: Patient admitted due to complications related to COPD. He presents with adequate nutrition intake and no complaints. Patient self-reportedly follows a heart-healthy diet, which the patient states the hospital has been accomodative of. Patient reports full consumption of all meals so far, with portions being well-sized. Patient requires soft food due to dental issues which patient states the hospital has been accommodative of. Patient lives with a hydroelectric station operator chief who prepares 3 meals a day. Patient reports no issues with food security outside of hospital. Patient appears well-nourished at a BMI of 25.5 kg/m^2. Height: 180 cm. Weight: 83 kg (decreasing steadily and intentionally, down from 110 kg in 07/2020). The patient's A1c levels have decreased significantly and intentionally from a peak of 11.9 in 10/2017 to a recent 6.2 in 09/2024. The most recent blood glucose measurement came in at 121 on 12/27/2024. The patient has not had a recent lipid panel, but the most recent measure in 04/2020 show all levels within their normal ranges (total cholesterol 147 mg/dL). A nutritional physical exam was not performed, but the patient showed no visual signs of malnutrition and appears well-fed. The patient continues to live with his ex- who also functions as his care-taker. The patient's ex- prepares 3 meals a day, and the patient is not concerned with social food issues or food insecurity. Estimated nutritional needs: 2,002 kcal/day (MSJ * 1.2 AF). Protein needs: 125g - 208 g/day. (1.5-2.5g per kg IBW) recommend closer to lower end of range. Fluid needs: 2,002 mL/day.(1mL per required kcal) Nutrition diagnosis: No significant nutrition diagnosis at this time, will continue to monitor for changes. Nutrition intervention: No acute intervention recommended at this time. Patient was given outpatient information for continued support following discharge. Encouraged higher protein intake for wound healing. Will offer Murray and/or Expedite ONS to aid in wound healing as well. Recommendations to provider: for wound healing would suggest [id number] cholecalciferol, 220mg zinc sulfate, and 500mg vitamin C BID Monitoring: Will continue to monitor patient PO intake, weight, nutrition-related labs, and ongoing food preferences during admission.
[2024-12-27 11:13] VITALS: BP 144/89; PULSE 70; RESP 17; TEMP 36.6; O2SAT 95
--- NOTE | 2024-12-27 11:14 | PHA.REVIEW2 ---
Pharmacy Admission Review Admission Clinical Review Admission Pharmacy Review: Leg wound, right (Acute) Penicillins Adverse Reaction (Severe, Verified 12/26/24 07:33) Vomiting hydrocodone Adverse Reaction (Intermediate, Verified 12/26/24 07:33) vomiting Resuscitation Status Full Code Height 5 ft 11 in Weight 83 kg Pharmacy Admission Review Renal Dosing Renal Dosing: BUN 28 mg/dL (7-18) H 12/27/24 06:07 Creatinine 1.3 mg/dL (0.70-1.30) 12/27/24 06:07 Medications needing adjustments: Reviewed (CrCl 71 mL/min, BUN decreased from 34 and SCr decreased from 1.5) List of meds needing interventions: Current medications are okay Anticoagulation Anticoagulation: Hgb 12.5 g/dL (13.5-17.5) L 12/27/24 06:07 Hct 39.1 % (40.0-50.0) L 12/27/24 06:07 Plt Count 411 10^3/uL (130-400) H 12/27/24 06:07 INR 1.1 (0.9-1.1) 12/26/24 07:58 Creatinine 1.3 mg/dL (0.70-1.30) 12/27/24 06:07 DVT Prophylaxis: Reviewed (hgb decreased from 12.8) Medications: Enoxaparin (40mg daily) Relevant Labs Relevant Labs: Sodium 140 mmol/L (136-145) 12/27/24 06:07 Potassium 4.1 mmol/L (3.5-5.1) 12/27/24 06:07 Chloride 105 mmol/L (98-107) 12/27/24 06:07 Magnesium 2.1 mg/dL (1.8-2.4) 12/27/24 06:07 Electrolytes, C-Reactive P, ESR: Reviewed Cardiac Review Cardiac Review: Troponin I 18 ng/L (<or=76) 12/26/24 10:58 BP, HR, EF%: Reviewed (BP 144/89, HR WNL) List meds needing interventions: Has orders for amlodipine 2.5mg daily, lisinopril 40mg daily and spironolactone 25mg daily QTc Review QTc: Reviewed (477 from 12/26/24) IV to PO Switch IV Medications: Reviewed (clindamycin) Home Meds Home Med List reviewed: Reviewed Relevent Home Meds Not ordered & why?: Qvar (substituted with Asmanex per pharmacy protocol), vitamin B12 and docusate Current Meds Current Medication Order Review: Intervened Comments: Changed IV ED access Changed acetaminophen order from q4h PRN to q6h PRN and changed from 325mg tablets to 500mg tablets (dose 1000mg) Pharmacy Antibiotic Review Relevant Labs: WBC 14.58 10^3/uL (4.4-10.8) H 12/27/24 06:07 Procalcitonin 0.13 ng/mL 12/26/24 07:58 Temperature 36.6 C Temperature 36.4 C Temperature 36.2 C Microbiology 12/26/24 08:15 Blood Culture - Preliminary Blood NO GROWTH 24 HOURS 12/26/24 07:58 Blood Culture - Preliminary Blood NO GROWTH 24 HOURS Pharmacy Antibiotic Activity: C/S review and Reviewed, no change Comments: Patient is on clindamycin, day 2, for RLE cellulitis. WBC increased from 9.
[2024-12-27 15:11] VITALS: BP 139/88; PULSE 67; RESP 18; TEMP 37.1; O2SAT 95
[2024-12-27 19:13] VITALS: BP 162/90; PULSE 78; RESP 18; TEMP 36.6; O2SAT 97
[2024-12-27 23:14] VITALS: BP 159/87; PULSE 59; RESP 18; TEMP 36.5; O2SAT 96
[2024-12-28 03:18] VITALS: BP 174/87; PULSE 62; RESP 18; TEMP 36.7; O2SAT 95
[2024-12-28] MEDS: CLINDAMYCIN 600 MG/50 ML BAG 100 MG IVPB ×3 (06:16→21:37)
[2024-12-28] MEDS: Normal Saline Flush 10 ML SYR IVP ×2 (06:17→19:51)
[2024-12-28 07:17] VITALS: BP 164/99; PULSE 66; RESP 16; TEMP 36.5; O2SAT 92
[2024-12-28] MEDS: amLODIPine 2.5 MG TAB PO (07:29)
[2024-12-28] MEDS: Buprenorphine/Naloxone 8 mg/2 mg FILM 1 EACH SL (07:29)
[2024-12-28] MEDS: Enoxaparin 40 MG/0.4 ML SYR SC (07:29)
[2024-12-28] MEDS: Gabapentin 600 MG TAB PO ×3 (07:30→19:51)
[2024-12-28] MEDS: DULoxetine 30 MG CAP PO ×2 (07:30→19:51)
[2024-12-28] MEDS: Lisinopril 20 MG TAB 40 MG PO (07:30)
[2024-12-28] MEDS: Spironolactone 25 MG TAB PO (07:30)
[2024-12-28] MEDS: Aspirin E.C. 81 MG TABEC PO (07:30)
--- NOTE | 2024-12-28 09:41 | W.PM.PROGNOT ---
Date of Service Date of service: 12/28/24 Time of Service: 09:41 Assessment and Plan Assessment and plan (1) COPD exacerbation: Status: Acute Assessment and plan: -resolved as of 12/28 -current exacerbation, no evidence of consolidation on CT scan concerning for PNA -continue steroids (PO prednisone) and nebulizers (duoneb, albuterol) PRN (2) Cellulitis of leg, right: Status: Acute Assessment and plan: -Improving redness and pain to R lower extremity cellulitis -continue clindamycin TID for MRSA coverage -wound care, including dressing changes by nursing staff as needed -continue monitoring response to therapy -blood cultures remain negative (3) Hypertension: Status: Chronic Assessment and plan: -blood pressure consistent with baseline -continue home medication regimen (amlodipine 2.5 mg daily, lisinopril 40 mg daily) (4) Opiate dependence: Status: Chronic Assessment and plan: -on suboxone, continue home dosing (5) Chronic venous insufficiency: Assessment and plan: -likely contributory to recurrent cellulitis. Elevation and compression stockings as tolerated Subjective Subjective Interval history since last seen: Patient states that he is feeling a little better and that his leg has continued to improve since admission. Exam Narrative Exam Narrative: well appearing gentleman sitting up in the bed in no acute distress, AOx4, heart RRR, lungs CTAB, abdomen soft, non-tender, non-distended, area of erythema and warmth of the RLE shows improvement from demarcated lines Objective Last Vital Signs Temp 97.7 F 12/28/24 07:17 Pulse 66 12/28/24 07:17 Resp 16 12/28/24 07:17 BP 164/99 H 12/28/24 07:17 Pulse Ox 92 12/28/24 07:17 Time Spent with Patient Time Spent with Patient: >50 minutes Time was spent: preparing to see the patient(eg.review tests), obtaining and/or reviewing separately otained hiistory, ordering medications,tests, procedures, referring, communicating with other health child care center assistant director, indepentently interpreting results, counseling the patient and care coordination
[2024-12-28 11:09] VITALS: BP 194/103; PULSE 54; RESP 16; TEMP 36.6; O2SAT 95
[2024-12-28 15:04] VITALS: BP 162/95; PULSE 72; RESP 17; TEMP 36.5; O2SAT 95
[2024-12-28 19:28] VITALS: BP 179/92; PULSE 62; RESP 18; TEMP 36.2; O2SAT 94
[2024-12-28] MEDS: traMADol 50 MG TAB PO (19:55)
[2024-12-28 23:14] VITALS: BP 163/109; PULSE 61; RESP 18; TEMP 36.2; O2SAT 94
[2024-12-29 03:08] VITALS: BP 168/99; PULSE 66; RESP 17; TEMP 36.1; O2SAT 93
[2024-12-29] MEDS: CLINDAMYCIN 600 MG/50 ML BAG 100 MG IVPB (05:58)
[2024-12-29 07:14] VITALS: BP 182/90; PULSE 69; RESP 16; TEMP 36.4; O2SAT 96
[2024-12-29 07:42] VITALS: BP 168/72
[2024-12-29] MEDS: Buprenorphine/Naloxone 8 mg/2 mg FILM 1 EACH SL (07:59)
[2024-12-29] MEDS: amLODIPine 2.5 MG TAB PO (08:00)
[2024-12-29] MEDS: Spironolactone 25 MG TAB PO (08:00)
[2024-12-29] MEDS: Normal Saline Flush 10 ML SYR IVP (08:00)
[2024-12-29] MEDS: Enoxaparin 40 MG/0.4 ML SYR SC (08:00)
[2024-12-29] MEDS: Gabapentin 600 MG TAB PO (08:01)
[2024-12-29] MEDS: Aspirin E.C. 81 MG TABEC PO (08:01)
[2024-12-29] MEDS: Lisinopril 20 MG TAB 40 MG PO (08:01)
[2024-12-29] MEDS: DULoxetine 30 MG CAP PO (08:01)
[2024-12-29 10:48] VITALS: BP 172/90; PULSE 79; RESP 16; TEMP 36.6; O2SAT 93
[2024-12-29 10:51] VITALS: BP 160/82
[2024-12-29] MEDS: traMADol 50 MG TAB PO (11:00)
--- NOTE | 2024-12-29 12:26 | PDOC.CMDIS ---
Date of service: 12/29/24 Time of Service: 12:30 LACE Index Scoring Tool Questions: Length of Stay (in days): 3 Was the patient admitted via the E.D.?: Yes Comorbidities: Chronic Pulmonary Disease E.D. Visits: 5 Answers: Total Score: 12 Risk of Readmission: High Risk Care Management Discharge Plan Reason for Hospitalization: RLE cellulitis, COPD exacerbation Discharge Plan: Mio will be discharged home on oral antibiotics with new RN and PT services which he was agreeable too. It is recommended he follow up with his community providers and discharge plan of care. CM contacted Arline who is unable to pick her him. Therefore, he will transport via [facility] private vehicle as coordinated by CM. Patient/Family Education Needs: Review of discharge instruction, activity, limitations, and plan of care. Discuss ask me three. Services Needed at Discharge: Home Health Care Services SDOH Health Related Social Needs: Health related social needs material hardship Health related social needs details denies need. Health related social needs details: denies need.
--- NOTE | 2024-12-29 12:30 | PDOC.HHF2F ---
Date of service: 12/29/24 Time of Service: 12:00 Home Health Referral Registered Nurse: Check all that apply Instruct on new or changed medication(s)/assess compliance: Ordered Assess for exacerbation of medical condition, instruct patient/caregivers on signs and symptoms to report for early detection: Ordered Administer injection as no willing or able caregiver and patient is unable to administer due to: Dressing change assistance/ education and wound monitoring , medicine compliance Physical Therapist: Check all that apply Increase strength & endurance for safe mobility at home: Ordered To design/establish home maintenance program: Ordered Fall reduction therapy program for patient with history of frequent falls: Ordered Home safety evaluation and teaching/gait training including stair management (if applicable): Ordered Occupational Therapist: Evaluate and treat for patient unable to perform ADL/IADL/self-care: Ordered Lead Clinical Research Coordinator: Assist with community resources: Ordered Assist with fdc care planning: Ordered Other: [place] [facility] - file closed as [facility] [place] via given phone numbers. Referral initiated again. Also has a referral at [facility] surgery and should follow-up with PCP within7 days Encounter Date and Reason: I certify that a FTF encounter for this patient was performed on December 29, 2024 and that such encounter was related to the primary reason the patient requires home health services. The encounter was conducted in the following manner: By me as the certifying physician, PELLET PRESS OPERATOR, PA or By an inpatient physician, PELLET PRESS OPERATOR or PA during an inpatient stay who communicated findings to me, Certification And Authentication I certify that I composed the above information based on my clinical judgment relating to this patient's medical condition and, if applicable, clinical findings communicated to me by the NPP or inpatient physician who performed the FTF encounter. Name of Provider that will be monitoring home health services: Evon Howard
--- NOTE | 2024-12-29 12:42 | DSE_ITS ---
Date of service: 12/29/24 Time of Service: 08:00 DS: Diagnosis Discharge Diagnosis (1) COPD exacerbation: Status: Resolved (2) Cellulitis of leg, right: Status: Acute (3) Hypertension: Status: Chronic (4) Opiate dependence: Status: Chronic (5) Chronic venous insufficiency: Discharge Plan Disposition Patient Disposition: Home W/Home Health Services Condition: Improving Discharge Details Reason For Visit: RLE Cellulitis, COPD Exacerbation Admit Date/Time: 12/26/24 12:25 Admit Provider: Felix Stewart Attending Provider: Felix Stewart [facility] Course: Mio Albert is a 59 year old man presenting December 26 with cough and pain in his right lower leg. He improved on intravenous antibiotics and his leg looks better. He is safe to return home on PO antibiotics. Home Meds and New Rx's Prescriptions: New clindamycin HCl [Cleocin HCl] 150 mg capsule 450 mg PO Q8H Qty: 42 0RF Continued esomeprazole magnesium [Nexium] 40 mg capsule,delayed release(DR/EC) 40 mg PO DAILY albuterol sulfate 90 mcg/actuation HFA aerosol inhaler 2 inh inhalation Q6H PRN aspirin 81 mg Tablet 81 mg PO DAILY duloxetine 30 mg Capsule,Delayed Release(Dr/Ec) 30 mg PO BID acetaminophen [Tylenol] 325 mg tablet 1,000 mg PO Q6H PRN cyanocobalamin (vitamin B-12) [Vitamin B-12] 1,000 mcg tablet 1,000 mcg PO DAILY Qvar RediHaler 80 mcg/actuation HFA aerosol breath activated 1 inh INHALATION BID PRN Patient Comments: INHALE ONE PUFF BY MOUTH TWICE A DAY NEEDED spironolactone 25 mg Tablet 25 mg PO DAILY Qty: 30 0RF amlodipine 2.5 mg tablet 2.5 mg PO DAILY Patient Comments: TAKE ONE TABLET BY MOUTH EVERY DAY gabapentin 600 mg tablet 600 mg PO TID Patient Comments: TAKE ONE TABLET BY MOUTH THREE TIMES A DAY lisinopril 40 mg tablet 40 mg PO DAILY Patient Comments: TAKE ONE TABLET BY MOUTH EVERY DAY buprenorphine-naloxone [Suboxone] 8-2 mg film 1 film sublingual DAILY Patient Comments: PLACE ONE FILM UNDER THE TONGUE EVERY DAY tramadol 50 mg Tablet 50 mg PO Q6H PRN PRNQty: 20 0RF clonidine 0.1 mg/24 hr Patch Weekly 0.1 mg transdermal Q7D Qty: 4 0RF Rx Instructions: Started on 10/01/24. Renew as per PCP polyethylene glycol 3350 17 gram Powder In Packet 17 g PO DAILY Qty: 30 0RF docusate sodium [Colace] 100 mg capsule 100 mg PO BID Qty: 30 0RF Rx Instructions: Stop if you develop diarrhea. naloxone [Narcan] 4 mg/actuation spray,non-aerosol 1 spray intranasal Q3M Qty: 2 0RF Rx Instructions: spray 1 dose into ONE nostril; alternate nostrils w each dose until help arrives Discharge Instructions Instructions: Cellulitis (skin infection) in adults - Discharge instructions Stand Alone Forms: Portal Information Referrals: Evon Howard MD [Primary Care Provider, Medicine] Referral Note: Your PCP office will call to schedule your appointment, if you havent heard from them in a few days please call them to set up an appointment Activity:: Activity as Tolerated Equipment/Supplies:: No Equipment Needed Diet:: As Tolerated Discharge Orders Discharge Orders: Discharge Order (Routine); Ordered 12/29/24 Ordered By: Chandler Melton Discharge Data Discharge Date/Time-TO BE ENTERED AT DEPARTURE: 12/29/24 14:49 DS: Summary Time Spent with Patient providing and/or coordinating discharge services: Less than 30 minutes Status at Discharge Functional status at discharge: uses cane/walker Overall status at discharge: patient is progressing back to baseline Mental Status: mental status grossly normal Speech and Movement: speech and movement normal Mood: congruent mood Affect: normal affect Quality:SDOH Health Related Social Needs: Health related social needs material hardship Health related social needs details denies need. Health related social needs details: denies need. Exam Psych Mental Status: mental status grossly normal Speech and Movement: speech and movement normal Mood: congruent mood Affect: normal affect DS: Data Vitals/I&O Vitals and I&O: Vital Signs Temperature 36.6 C 12/29/24 10:48 Temperature Source Temporal Artery Scan 12/29/24 10:48 Pulse 79 12/29/24 10:48 Pulse 66 12/26/24 08:20 Respiratory Rate 16 12/29/24 10:48 Respiratory Effort Normal, Non-Labored 12/26/24 08:20 Respiratory Depth Normal 12/26/24 08:20 Respiratory Pattern Normal 12/26/24 08:20 Blood Pressure 160/82 H 12/29/24 10:51 Blood Pressure Mean 108 12/29/24 10:51 Pulse Oximetry 93 12/29/24 10:48 Oxygen Delivery Method Room Air 12/29/24 07:14 Oxygen Flow Rate 0 12/29/24 07:14 Pain Level 2 12/29/24 12:00 Comment nurse notified about high BP 12/29/24 07:14 Intake & Output 12/28/24 12/29/24 12/29/24 23:59 11:59 23:59 Intake Total 350 / 980 690 / 810 120 / 810 Output Total 400 / 690 500 / 500 Balance -50 / 290 190 / 310 120 / 310 Intake: IV 130 / 180 60 / 60 Oral 220 / 800 630 / 750 120 / 750 Output: Urine 400 / 690 500 / 500 Other: Urine Color Yellow Yellow Urine Appearance Clear Clear Urine Odor Normal Normal Data Completed and Pending Pending Labs at Discharge: 12/26/24 12/26/24 12/26/24 07:47 07:58 09:05 WBC 9.00 RBC 4.59 Hgb 12.8 L Hct 39.6 L MCV 86 MCH 27.9 MCHC 32.3 RDW 14.6 H Plt Count 373 MPV 9.4 Immature Gran % 0.3 Neutrophils % 68.7 Lymphocytes % 18.1 Monocytes % 8.9 Eosinophils % 3.0 Basophils % 1.0 Nucleated RBC % 0.0 Absolute Neutrophils 6.18 Absolute Lymphocytes 1.63 Absolute Monocytes 0.80 Absolute Eosinophils 0.27 Absolute Basophils 0.09 PT 10.6 INR 1.1 APTT 27.5 VBG pH 7.36 VBG pCO2 49 VBG pO2 43 VBG HCO3 28 VBG Total CO2 25 VBG O2 Saturation 75 VBG Base Excess 2 VBG Lactate 1.3 Sodium 144 Potassium 4.0 Chloride 107 Carbon Dioxide 29.0 Anion Gap 8.0 BUN 34 H Creatinine 1.5 H Est GFR (CKD-EPI 2020) 53.30 Glucose 121 H Calcium 8.9 Magnesium Total Bilirubin 0.1 L AST 10 L ALT 14 L Alkaline Phosphatase 89 Troponin I 19 19 Total Protein 7.8 Albumin 3.3 L Procalcitonin 0.13 Ethyl Alcohol < 3.0 COVID-19 Source Nasopharynx SARS-CoV-2 (PCR) Negative Influenza Type A (PCR) Negative Influenza Type B (PCR) Negative RSV (PCR) Negative 12/26/24 12/27/24 10:58 06:07 WBC 14.58 H RBC 4.62 Hgb 12.5 L Hct 39.1 L MCV 85 MCH 27.1 MCHC 32.0 RDW 14.1 Plt Count 411 H MPV 9.5 Immature Gran % Neutrophils % Lymphocytes % Monocytes % Eosinophils % Basophils % Nucleated RBC % Absolute Neutrophils Absolute Lymphocytes Absolute Monocytes Absolute Eosinophils Absolute Basophils PT INR APTT VBG pH VBG pCO2 VBG pO2 VBG HCO3 VBG Total CO2 VBG O2 Saturation VBG Base Excess VBG Lactate Sodium 140 Potassium 4.1 Chloride 105 Carbon Dioxide 24.5 Anion Gap 10.5 BUN 28 H Creatinine 1.3 Est GFR (CKD-EPI 2020) 63.28 Glucose 121 H Calcium 8.5 Magnesium 2.1 Total Bilirubin AST ALT Alkaline Phosphatase Troponin I 18 Total Protein Albumin Procalcitonin Ethyl Alcohol COVID-19 Source SARS-CoV-2 (PCR) Influenza Type A (PCR) Influenza Type B (PCR) RSV (PCR) Preliminary micro results at discharge 12/26/24 08:15 Blood Blood Culture - Preliminary NO GROWTH 72 HOURS 12/26/24 07:58 Blood Blood Culture - Preliminary NO GROWTH 72 HOURS PFSH All Active Problems (Updated 12/30/24 @ 00:04 by DIVINA CHANCE) Cellulitis of leg, right (Acute) Leg wound, right (Acute) Leg wound, left (Acute) Nicotine dependence (Acute) Hypertensive emergency (Acute) Hypertension (Chronic) Cellulitis of leg, right (Acute) Right middle lobe pneumonia (Acute) Hypoxia (Acute) Sepsis (Acute) Leukocytosis (Acute) Mild shortness of breath (Acute) Chest pain (Acute) Hypoxia (Acute) Recurrent apnea (Acute) Hypertensive emergency (Acute) Bilateral edema of lower extremity (Acute) Dyspnea (Acute) Right rotator cuff tear (Acute) Abnormal CT scan, kidney (Acute) Anxiety (Chronic) Medical non-compliance (Acute) Aragon esophagus (Acute) Opiate dependence (Chronic) managed on suboxone Medical History Palliative care encounter Obstructive sleep apnea Chronic venous insufficiency COPD (chronic obstructive pulmonary disease) Diabetic neuropathy Hx of deep venous thrombosis on Coumadin Diabetes mellitus Hypertension Cocaine abuse 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 S/P percutaneous endoscopic gastrostomy (PEG) tube placement History of ankle surgery S/P spinal surgery Family History Father No problems noted. Mother COPD (chronic obstructive pulmonary disease) Hypertension Diabetes Heart disease Sister Stroke Social History Smoking/Tobacco Use Status: Current every day Tobacco Type: cigarettes Years smoked: 44 Tobacco: How many years used: 40 Smoking risk assessment performed?: Yes Alcohol Intake: former Drug use: Daily Substance use type: marijuana and crack/cocaine Details: last used marijuana 10/06/24. last use of crack/cocaine 10/09/24 Caregiver/Support person: Yes Household members: friend(s) Housing: house Number of Children: 0 number of grandchildren: 1 current occupation: Disabled Pets and animals: Yes Pets and animals: cat(s) Current gender identity: male What type of physical activity do you participate in: none Do you feel safe at home: Yes Do you feel safe in your relationship?: Yes Additional Social history: Lives with ex- Vanessa, who is his caregiver. Lives in private home. Time Spent with Patient Time Spent with Patient: <45 minutes Time was spent: preparing to see the patient(eg.review tests), obtaining and/or reviewing separately otained hiistory, ordering medications,tests, procedures, referring, communicating with other health day care provider, indepentently interpreting results, counseling the patient and care coordination
== END 2024-12-29 14:49 | disposition home health service (06) | DRG 191 ==
LOC: ER 12:19 → MS 13:29
PROVIDERS: Admitting Provider Family Medicine; Emergency Provider Student in an Organized Health Care Education/Training Program; PCP Family Medicine; Responsible Provider Family Medicine; Visit Provider Family Medicine
DX: J44.1 Chronic obstructive pulmonary disease with (acute) exacerbation (principal); F11.20 Opioid dependence, uncomplicated; L03.115 Cellulitis of right lower limb; L97.221 Non-pressure chronic ulcer of left calf limited to breakdown of skin; L97.818 Non-pressure chronic ulcer of other part of right lower leg with other specified severity; I10 Essential (primary) hypertension; Z95.4 Presence of other heart-valve replacement; F17.210 Nicotine dependence, cigarettes, uncomplicated; R06.02 Shortness of breath; F41.9 Anxiety disorder, unspecified; G47.33 Obstructive sleep apnea (adult) (pediatric); E11.40 Type 2 diabetes mellitus with diabetic neuropathy, unspecified; K22.70 Barrett's esophagus without dysplasia; Z91.199 Patient's noncompliance with other medical treatment and regimen due to unspecified reason; F32.A Depression, unspecified; F14.90 Cocaine use, unspecified, uncomplicated; F12.90 Cannabis use, unspecified, uncomplicated; Z79.899 Other long term (current) drug therapy; Z59.87 Material hardship due to limited financial resources, not elsewhere classified; Z86.73 Personal history of transient ischemic attack (TIA), and cerebral infarction without residual deficits; I83.018 Varicose veins of right lower extremity with ulcer other part of lower leg
CPT/HCPCS: 00123; 36415; 71275; 80048; 80053; 82805; 84145; 85027; 87040; 87637; 93005; 96365; 96375; 99285; J1650; 80320; 83605; 83735; 84484; 85025; 85610; 85730; 93010; 93971; 99223; 99233; 99238; J0737; J2919; J3490; J7512

== ENCOUNTER 2025-01-16 09:15 | Inpatient (IN) | payer MEDICAID, SELFPAY ==
[2025-01-16] VITALS (98 sets, daily range): BP systolic 115–219; BP diastolic 65–122; PULSE 41–88; RESP 11–26; TEMP 36.9; O2SAT 90–100
--- NOTE | 2025-01-16 09:00 | RT.EKG_ITS ---
APPROVED REPORT Exam: Resting ECG Reason for Exam: not feeling well Patient Location: E HR:42 bpm ECG Measurements Heart Rate 42 AXIS WA 193 P 68 QRSd 162 QRS 63 QT 493 T 85 QTc 410 Conclusion Sinus bradycardia, rate 42 Borderline QTc prolongation, RBBB, present on priors T wave inversion aVL, noted on prior No STEMI
--- NOTE | 2025-01-16 09:15 | DI.RAD_ITS ---
Exam(s) XR PORTABLE CHEST AP EXAM: XR PORTABLE CHEST AP CLINICAL HISTORY: Chest pain TECHNIQUE: 2D digital imaging was performed of the chest. One image was obtained. An AP view was obtained. COMPARISON: CR,XR XR CHEST 2V PA LATERAL from 04/07/2024 CR XR PORTABLE CHEST AP from 07/11/2024 FINDINGS: MEDIASTINUM: Normal. HEART: Normal. PULMONARY VASCULATURE: Normal. LUNGS: There are no focal consolidating infiltrates. PLEURAL SPACE: No pleural effusion or pneumothorax. BONE:Within normal limits for the patient's age. Sternal wires are in place. OTHER FINDINGS:Normal. IMPRESSION: 1. No acute pulmonary findings. 2. The preliminary [facility] report was reviewed. DATA REPOSITORY: RADIATION DOSE DELIVERED:
[2025-01-16] MEDS: Atropine 1 MG/10 ML SYRINGE 0.5 MG IVP ×2 (09:38→11:53)
[2025-01-16 09:39] LABS: Abs Immature Grans 0.03 10^3/uL (0.0-0.06); HCT 41.8 % (40.0-50.0); HGB 13.4 g/dL (13.5-17.5); Immature Grans % 0.4 %; MCH 27.4 pg (27.0-33.0); MCHC 32.1 % (32.0-36.0); MCV 86 fL (80-95); MPV 8.8 fL (8.0-11.0); Platelet Count 257 10^3/uL (130-400); RBC 4.89 10^6/uL (4.36-5.78); RDW 14.6 % (11.8-14.1); RDW-SD 45.1 fL; WBC 7.97 10^3/uL (4.4-10.8)
[2025-01-16] MEDS: Normal Saline Flush 10 ML SYR IVP ×2 (09:39→21:16)
[2025-01-16 09:50] LABS: INR 1.0 (0.9-1.1); Prothrombin Time 10.1 sec (9.1-11.1)
--- NOTE | 2025-01-16 09:52 | DI.[facility]_ITS ---
PROCEDURE INFORMATION: Exam: XR Chest Exam date and time: 01/16/2025 9:41 AM Age: 59 years old Clinical indication: Other: Chest pain TECHNIQUE: Imaging protocol: Radiologic exam of the chest. Views: 1 view. COMPARISON: CT CHEST PE CTA 12/26/2024 9:14 AM FINDINGS: Lungs: Unremarkable. No consolidation. Pleural spaces: Unremarkable. No pleural effusion. No pneumothorax. Heart/Mediastinum: Stable cardiac silhouette Bones/joints: Median sternotomy IMPRESSION: No acute findings. Dictated and Authenticated by: Shayne Nolan MD. Orderin St. Steve Molina MD
[2025-01-16 09:58] LABS: Troponin I 7 ng/L (<54)
[2025-01-16 10:00] LABS: Lipase 34 U/L (<53)
--- NOTE | 2025-01-16 10:00 | DI.CT_ITS ---
Exam(s) CT HEAD WO EXAM: CT HEAD WO CLINICAL HISTORY: Lethargic. TECHNIQUE: Imaging Protocol: Axial computed tomography images with coronal and sagittal reformatted images were created and reviewed COMPARISON: CT CT HEAD WO from 02/23/[address] HEAD CERVICAL SPINE WO from 07/11/2024 FINDINGS: Ventricles and Extra axial spaces: Normal in size and morphology for the patient's age. Hemorrhage: None. Cerebral parenchyma: There is an old left middle cerebral artery distribution infarct. There is no acute territorial infarct or acute mass effect. There are areas of decreased attenuation in the white matter consistent with chronic microvascular ischemic disease. Midline shift: None. Brainstem/Cerebellum: Normal. Calvarium: Normal. Visualized Paranasal sinuses/Mastoids: Mucous retention cysts are seen in the maxillary sinuses. There is mucosal thickening in the right ethmoid air cells. There is mucosal thickening in the right frontal sinus. The remaining visualized paranasal sinuses are clear. Soft Tissues: Unremarkable. IMPRESSION: 1. No acute intracranial process. 2. The preliminary [facility] report was reviewed. RADIATION DOSE DELIVERED: 921.26mGy.cm Total DLP DATA REPOSITORY: All CT scans at this facility are submitted to the National Radiology Data Registry (NRDR) Dose Index Registry (DIR) with the [employer] (A[employer]). RADIATION OPTIMIZATION: All CT scans at this facility use at least one of these dose optimization techniques: automated exposure control; mA and/or kV adjustment per patient size (includes targeted exams where dose is matched to clinical indication); or iterative reconstruction.
[2025-01-16 10:01] LABS: Magnesium 2.0 mg/dL (1.6-2.6)
[2025-01-16 10:02] LABS: ALT 8 U/L (10-49); AST 12 U/L (<34); Albumin 4.5 g/dL (3.2-5.0); Alkaline Phosphatase 73 U/L (46-116); Anion Gap 7.6 mmol/L (3-11); BUN 24 mg/dL (9-23); Bilirubin, Total 0.40 mg/dL (0.2-1.2); CO2 25.4 mmol/L (20.0-31.0); Calcium 9.5 mg/dL (8.3-10.6); Chloride 110 mmol/L (98-107); Glucose 155 mg/dL (74-106); Potassium 4.4 mmol/L (3.5-5.1); Sodium 143 mmol/L (136-145); Total Protein 7.9 g/dL (5.7-8.2)
--- NOTE | 2025-01-16 10:02 | W.ED.GENAD ---
Discharge Plan Disposition Patient Disposition: Admit to [facility] Condition: Stable Discharge Details Clinical Impression: Bradycardia with 31-40 beats per minute, Malaise and fatigue Primary Care Provider: Evon Howard ED Provider: Tracy Castrejon Home Meds and New Rx's Prescriptions: No Action esomeprazole magnesium [Nexium] 40 mg capsule,delayed release(DR/EC) 40 mg PO DAILY albuterol sulfate 90 mcg/actuation HFA aerosol inhaler 2 inh inhalation Q6H PRN aspirin 81 mg Tablet 81 mg PO DAILY duloxetine 30 mg Capsule,Delayed Release(Dr/Ec) 30 mg PO BID acetaminophen [Tylenol] 325 mg tablet 1,000 mg PO Q6H PRN cyanocobalamin (vitamin B-12) [Vitamin B-12] 1,000 mcg tablet 1,000 mcg PO DAILY Qvar RediHaler 80 mcg/actuation HFA aerosol breath activated 1 inh INHALATION BID PRN Patient Comments: INHALE ONE PUFF BY MOUTH TWICE A DAY NEEDED spironolactone 25 mg Tablet 25 mg PO DAILY Qty: 30 0RF clindamycin HCl [Cleocin HCl] 150 mg capsule 450 mg PO Q8H Qty: 42 0RF amlodipine 2.5 mg tablet 2.5 mg PO DAILY Patient Comments: TAKE ONE TABLET BY MOUTH EVERY DAY gabapentin 600 mg tablet 600 mg PO TID Patient Comments: TAKE ONE TABLET BY MOUTH THREE TIMES A DAY lisinopril 40 mg tablet 40 mg PO DAILY Patient Comments: TAKE ONE TABLET BY MOUTH EVERY DAY buprenorphine-naloxone [Suboxone] 8-2 mg film 1 film sublingual DAILY Patient Comments: PLACE ONE FILM UNDER THE TONGUE EVERY DAY tramadol 50 mg Tablet 50 mg PO Q6H PRN PRNQty: 20 0RF clonidine 0.1 mg/24 hr Patch Weekly 0.1 mg transdermal Q7D Qty: 4 0RF Rx Instructions: Started on 10/01/24. Renew as per PCP polyethylene glycol 3350 17 gram Powder In Packet 17 g PO DAILY Qty: 30 0RF docusate sodium [Colace] 100 mg capsule 100 mg PO BID Qty: 30 0RF Rx Instructions: Stop if you develop diarrhea. naloxone [Narcan] 4 mg/actuation spray,non-aerosol 1 spray intranasal Q3M Qty: 2 0RF Rx Instructions: spray 1 dose into ONE nostril; alternate nostrils w each dose until help arrives umeclidinium-vilanterol [Anoro Ellipta] 62.5-25 mcg/actuation blister with device 1 inh inhalation DAILY atorvastatin 20 mg tablet 20 mg PO DAILY Patient Comments: TAKE ONE TABLET BY MOUTH EVERY DAY FOR CHOLESTEROL; REPLACES PRAVASTATIN Bio-K plus 50 billion cell capsule,delayed release(DR/EC) 1 cap PO DAILY Trulicity 3 mg/0.5 mL pen injector 3 mg SUBCUT .Qweekly Patient Comments: INJECT 3MG UNDER THE SKIN ONCE A WEEK HPI General Mode of arrival: EMS. Date/Time Provider Initiated Documentation: 01/16/25 09:20. Limitations to Documentation: no limitations. Information obtained by: patient, EMS and old records reviewed. HPI Narrative: This is a 59-year-old gentleman with a past medical history significant for hypertension, cellulitis recently discharged from the hospital at the beginning of this month, a history of opioid dependence on Suboxone maintenance therapy, endocarditis, bradycardia, who is presenting for evaluation of general malaise. The patient reports that he has felt unwell for a few days, describes a general sense of unwellness throughout his body. He denies headache, difficulty breathing, chest pain, nausea or vomiting or abdominal pain. He reports that he occasionally feels dizzy, has not noted any worsening of his lower extremities but has had some swelling in that area. He has completed his most recent course of clindamycin for his infection. The patient reports that he has been taking his medications otherwise as prescribed, does have a new prescription for tramadol in addition to his daily Suboxone maintenance therapy. Denies falls, trauma, or injury. Has not had fevers or chills, states that he has been able to maintain his oral intake. Has been urinating normally, no diarrhea. Related Data Home Medications ?Medication ?Instructions ?Recorded ?Confirmed esomeprazole magnesium 40 mg 40 mg PO DAILY 05/05/20 01/16/25 capsule,delayed release (Nexium) aspirin 81 mg tablet 81 mg PO DAILY 08/03/20 01/16/25 duloxetine 30 mg capsule,delayed 30 mg PO BID 08/03/20 01/16/25 release acetaminophen 325 mg tablet 1,000 mg PO Q6H PRN 09/27/20 01/16/25 (Tylenol) albuterol sulfate 90 mcg/actuation 2 inh inhalation Q6H PRN 04/12/22 01/16/25 aerosol inhaler cyanocobalamin (vitamin B-12) 1,000 mcg PO DAILY 03/06/23 01/16/25 1,000 mcg tablet (Vitamin B-12) amlodipine 2.5 mg tablet 2.5 mg PO DAILY 09/30/23 01/16/25 gabapentin 600 mg tablet 600 mg PO TID 09/30/23 01/16/25 beclomethasone dipropionate 80 1 inh inhalation BID PRN 12/27/23 01/16/25 mcg/actuation HFA breath activated aerosol (Qvar RediHaler) spironolactone 25 mg tablet 25 mg PO DAILY #30 tabs 04/26/24 01/16/25 lisinopril 40 mg tablet 40 mg PO DAILY 07/07/24 01/16/25 buprenorphine 8 mg-naloxone 2 mg 1 film sublingual DAILY 10/01/24 01/16/25 sublingual film (Suboxone) clonidine 0.1 mg/24 hr weekly 0.1 mg transdermal Q7D #4 ea 10/04/24 01/16/25 transdermal patch docusate sodium 100 mg capsule 100 mg PO BID #30 caps 10/04/24 01/16/25 (Colace) naloxone 4 mg/actuation nasal 1 spray intranasal Q3M #2 ea 10/04/24 01/16/25 spray (Narcan) polyethylene glycol 3350 17 gram 17 g PO DAILY #30 ea 10/04/24 01/16/25 oral powder packet tramadol 50 mg tablet 50 mg PO Q6H PRN PRN #20 tabs 10/04/24 01/16/25 clindamycin HCl 150 mg capsule 450 mg (3 x 150 mg) PO Q8H #42 caps 12/29/24 01/16/25 (Cleocin HCl) L. acidophilus,casei,rhamnosus 50 1 cap PO DAILY 01/16/25 01/16/25 billion cell capsule,delayed release (Bio-K plus) atorvastatin 20 mg tablet 20 mg PO DAILY 01/16/25 01/16/25 dulaglutide 3 mg/0.5 mL 3 mg subcut .Qweekly 01/16/25 01/16/25 [facility] umeclidinium 62.5 mcg-vilanterol 1 inh inhalation DAILY 01/16/25 01/16/25 25 mcg/actuation powdr for inhalation (Anoro Ellipta) Previous Rx's ?Medication ?Instructions ?Recorded spironolactone 25 mg tablet 25 mg PO DAILY #30 tabs 04/26/24 clonidine 0.1 mg/24 hr weekly 0.1 mg transdermal Q7D #4 ea 10/04/24 transdermal patch docusate sodium 100 mg capsule 100 mg PO BID #30 caps 10/04/24 (Colace) naloxone 4 mg/actuation nasal 1 spray intranasal Q3M #2 ea 10/04/24 spray (Narcan) polyethylene glycol 3350 17 gram 17 g PO DAILY #30 ea 10/04/24 oral powder packet tramadol 50 mg tablet 50 mg PO Q6H PRN PRN #20 tabs 10/04/24 clindamycin HCl 150 mg capsule 450 mg (3 x 150 mg) PO Q8H #42 caps 12/29/24 (Cleocin HCl) Allergies Allergy/AdvReac Type Severity Reaction Status Date / Time Penicillins AdvReac Severe Vomiting Verified 01/16/25 12:47 hydrocodone AdvReac Intermediate vomiting Verified 01/16/25 12:47 General Stated Complaint: Arrhythmia LILLIAN: 2 Exam Narrative Exam Narrative: Gen: awake and alert, but appears sleepy. Appears well nourished. HEENT: PERRL, EOMs full and without nystagmus. External ears and nose normal, mucous membranes moist. There is some dried Arash-Aid and increased secretions around the lips, patient endorses dry mouth Neck: Supple, full range of motion, no observable masses Lungs: No increased work of breathing, lung sounds clear and equal bilaterally without wheezes, rhonchi, or rales. CV: Heart with regular rate and rhythm, no murmurs auscultated. Strong and symmetrical radial pulses. Abdomen: Soft, nondistended, non-tender to palpation. No rigidity, rebound tenderness, or guarding. MSK: No joint swelling, no redness. Full ROM without limitation, no external traumatic findings. Skin: The patient has pritesh discoloration and some scabs overlying the bilateral shins and lower extremities. There is a surgical marking pen line from 12/26, the redness does not extend beyond this region. No excessive warmth or induration, no fluctuance palpable Neuro: Cranial nerves II-XII intact and symmetrical bilaterally. 5/5 strength in all muscle groups x4 extremities. No sensory deficits. Psych: Appropriate for situation. Course Vital Signs Vital signs: Vital Signs Pulse 41 L 01/16/25 09:21 Blood Pressure 212/65 H 01/16/25 09:21 Pulse 79 01/16/25 09:50 Pulse 76 01/16/25 10:00 Respiratory Rate 18 01/16/25 09:24 Blood Pressure 219/112 H 01/16/25 09:46 Blood Pressure Mean 147 01/16/25 09:46 Pulse Oximetry 97 01/16/25 09:50 Lab/Test Results Lab/Test Results: Laboratory Tests Range/Units 01/16/25 09:30 WBC (4.4-10.8) 10^3/uL 7.97 RBC (4.36-5.78) 10^6/uL 4.89 Hgb (13.5-17.5) g/dL 13.4 L Hct (40.0-50.0) % 41.8 MCV (80-95) fL 86 MCH (27.0-33.0) pg 27.4 MCHC (32.0-36.0) % 32.1 RDW (11.8-14.1) % 14.6 H Plt Count (130-400) 10^3/uL 257 MPV (8.0-11.0) fL 8.8 Immature Gran % % 0.4 Neutrophils % % 68.2 Lymphocytes % % 19.2 Monocytes % % 6.9 Eosinophils % % 3.9 Basophils % % 1.4 Nucleated RBC % (0.0-0.3) % 0.0 Absolute Neutrophils (1.2-6.7) 10^3/uL 5.44 Absolute Lymphocytes (1.2-3.4) 10^3/uL 1.53 Absolute Monocytes (0.1-0.8) 10^3/uL 0.55 Absolute Eosinophils (0.0-0.7) 10^3/uL 0.31 Absolute Basophils (0.0-0.2) 10^3/uL 0.11 PT (9.1-11.1) sec 10.1 INR (0.9-1.1) 1.0 VBG Lactate (<or=2.0) mmol/L 1.7 Magnesium (1.6-2.6) mg/dL 2.0 Troponin I (<54) ng/L 7 NT-Pro-B Natriuret Pep (<300) pg/mL 202 Lipase (<53) U/L 34 Medical Decision Making This is a 59-year-old male patient presenting for evaluation of general malaise, intermittently bradycardic heart rate. Differential includes but is not limited to ACS, arrhythmia, metabolic electrolyte derangement, dehydration, kidney injury. I certainly considered sequelae of infection, though his cellulitis appears improved. Considered intracranial abnormality including hemorrhage, less likely stroke in this patient without focal neurodeficits. Considered UTI, no chest pain or significant shortness of breath to suggest pneumonia, URI, pneumothorax, reactive airway disease exacerbation, etc. EKG obtained, showing sinus bradycardia with a right bundle branch block but no evidence of STEMI, and no significant changes when compared to priors. I will provide the patient with a dose of atropine, 0.5, for sustained heart rates less than 40. We will obtain labs to include CBC, CMP, magnesium, troponin, BNP, urinalysis, ethyl alcohol, and UDS. - I reviewed the patient's laboratory studies, which show no leukocytosis, anemia, thrombocytopenia. Chemistry panel is without significant electrolyte derangements, patient's renal function is noted to be at his baseline, no evidence of liver enzyme abnormality. Troponin is negative and without interval increase in 1 hour delta recheck, BNP is low. The urinalysis is noninfectious, ethanol negative, UDS positive for cocaine and cannabinoids. The patient had an improvement in his heart rate after atropine into the 80s, had some improvement but not resolution of his general malaise. I did obtain a chest x-ray and head CT, both of which were negative for acute abnormalities which might explain the patient's symptoms. I provided the patient with a liter of IV fluids, and monitored him on telemetry. He did have a recurrence of his bradycardia down to the 30s and received a second dose of atropine. He has never been hemodynamically unstable and I do not see an indication at this time to proceed with pacing. I consulted cardiology at [facility] who recommends that the patient be admitted to our hospital for telemetry, and echocardiogram in the morning. They do not feel that he would meet criteria for pacemaker placement at this time given his lack of hemodynamic instability and the persistent symptoms despite rate improvement. However, certainly if he becomes unstable he would meet criteria for urgent/emergent transfer for that intervention. I discussed this patient's case with the hospitalist, who has graciously accepted this patient for admission to the ICU for ongoing telemetry monitoring. While under my care the patient remained hemodynamically appropriate, though his blood pressure did remain elevated, which is noted to have been the case in past visits as well. Left our department without incident. Tracy Castrejon MD Quality:SDOH Health Related Social Needs: Health related social needs material hardship Health related social needs details denies need. PFSH All Active Problems (Updated 01/16/25 @ 13:19 by Tracy Castrejon MD) Malaise and fatigue (Acute) Bradycardia with 31-40 beats per minute (Acute) Cellulitis of leg, right (Acute) Leg wound, right (Acute) Leg wound, left (Acute) Nicotine dependence (Acute) Hypertensive emergency (Acute) Hypertension (Chronic) Cellulitis of leg, right (Acute) Right middle lobe pneumonia (Acute) Hypoxia (Acute) Sepsis (Acute) Leukocytosis (Acute) Mild shortness of breath (Acute) Chest pain (Acute) Hypoxia (Acute) Recurrent apnea (Acute) Hypertensive emergency (Acute) Bilateral edema of lower extremity (Acute) Dyspnea (Acute) Right rotator cuff tear (Acute) Abnormal CT scan, kidney (Acute) Anxiety (Chronic) Medical non-compliance (Acute) Aragon esophagus (Acute) Opiate dependence (Chronic) managed on suboxone Medical History Palliative care encounter Obstructive sleep apnea Chronic venous insufficiency COPD (chronic obstructive pulmonary disease) Diabetic neuropathy Hx of deep venous thrombosis on Coumadin Diabetes mellitus Hypertension Cocaine abuse 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 S/P percutaneous endoscopic gastrostomy (PEG) tube placement History of ankle surgery S/P spinal surgery Family History Father No problems noted. Mother COPD (chronic obstructive pulmonary disease) Hypertension Diabetes Heart disease Sister Stroke Social History Smoking/Tobacco Use Status: Current every day Tobacco Type: cigarettes Years smoked: 44 Tobacco: How many years used: 40 Smoking risk assessment performed?: Yes Alcohol Intake: former Drug use: Daily Substance use type: marijuana and crack/cocaine Details: days since last use Caregiver/Support person: Yes Household members: friend(s) Housing: house Number of Children: 0 number of grandchildren: 1 current occupation: Disabled Pets and animals: Yes Pets and animals: cat(s) Current gender identity: male What type of physical activity do you participate in: none Do you feel safe at home: Yes Do you feel safe in your relationship?: Yes Additional Social history: Lives with ex- Vanessa, who is his caregiver. Lives in private home.
--- NOTE | 2025-01-16 10:47 | DI.VRAD_ITS ---
PROCEDURE INFORMATION: Exam: CT Head Without Contrast Exam date and time: 01/16/2025 10:17 AM Age: 59 years old Clinical indication: Other: Lethargic TECHNIQUE: Imaging protocol: Computed tomography of the head without contrast. COMPARISON: CT HEAD CERVICAL SPINE WO 07/11/2024 10:06 AM FINDINGS: Brain: Again demonstrated is well delineated low-attenuation in the superior left frontal lobe consistent with prior infarction. Cerebral ventricles: No ventriculomegaly. Paranasal sinuses: Opacities in the right maxillary sinus and right ethmoid sinus may represent sinusitis. Mastoid air cells: Visualized mastoid air cells are well aerated. Bones: Unremarkable. No acute fracture. Soft tissues: Unremarkable. IMPRESSION: 1. Again demonstrated is well delineated low-attenuation in the superior left frontal lobe consistent with prior infarction. 2. Opacities in the right maxillary sinus and right ethmoid sinus may represent sinusitis. Dictated and Authenticated by: Shayne Nolan MD. Orderin St. Steve Molina MD
[2025-01-16] MEDS: Lactated Ringers 1,000 ML 1000 ML IV (11:06)
[2025-01-16 11:08] LABS: Troponin I 7 ng/L (<54)
[2025-01-16 11:11] LABS: Glucose 250 mg/dL (Negative)
[2025-01-16 11:22] LABS: RBC 0-2 HPF (0-2); WBC 0-2 HPF (0-5)
[2025-01-16 11:23] LABS: C & S Indicated? No
[2025-01-16] MEDS: Acetaminophen 500 MG TAB 1000 MG PO (11:37)
[2025-01-16 12:56] LABS: Cannabinoids THC Positive (Negative)
[2025-01-16 12:58] LABS: Hemoglobin A1C 6.6 % (<5.7)
[2025-01-16 13:16] LABS: TSH (W/Ref FT4) 0.97 uIU/mL (0.55-4.78)
--- NOTE | 2025-01-16 13:28 | W.PM.HP.N ---
Date of service: 01/16/25 Time of Service: 13:00 Assessment and Plan Assessment and plan (1) Bradycardia with 31-40 beats per minute: Status: Acute Assessment and plan: Acute on chronic illness Atropine 0.5 mg IV given twice in ED HR sustaining in the 70's Will monitor for HR dips below 40 for additional doses of atropine No pacing anticipated at this time but ICU placement for possible additional atropine Echo Jan 17 if possible (2) Cocaine intoxication: Status: Acute Assessment and plan: UDS positive for cocaine BP severely elevated on arrival, 212/65 He has previous admissions with positive cocaine and intermittent bradycardia (3) CKD (chronic kidney disease) stage 2, GFR 60-89 ml/min: Status: Chronic Assessment and plan: Renal function is at baseline (4) Opioid use disorder, severe, in early remission, dependence: Status: Chronic Assessment and plan: Continue suboxone Will give PRN tramadol 50 mg q6h History of Present Illness History of Present Illness Chief Complaint: malaise Narrative: Mio Albert is a 59 year old man presenting January 16 with shortness of breath, not feeling well. He reports feeling poorly for a few days, with his whole body feeling off. He reports that he has felt lightheaded a few times per day. He feels like he is breathing fine but doesn't feel like he's getting enough air. He has not felt feverish. No nausea, no vomiting, no diarrhea. He was hospitalized December 29- for cellulitis which has improved with completion of home antibiotics. He has been taking his suboxone and has been started on some tramadol recently. In the ED, heart rate was 41, blood pressure 212/65, vitals otherwise unremarkable. EKG showed sinus bradycardia with HR 42. CXR and head CT unremarkable. Labs significant for mildly elevated blood glucose 155 with elevated creatinine 1.27, at baseline. Urine drug screen positive for cocaine and THC. He was given atropine 0.5 twice for heart rates that dipped below 40. He was given LR 1L bolus and 1g tylenol. [facility] cardiology was consulted, recommending overnight cardiac monitoring and echocardiagram when available, with no acute need for pacemaker placement. Of note, the patient has been referred to [facility] for pacemaker placement and has not gone to his appointments. PMH includes chronic intermittent bradycardia, longstanding cocaine use, opioid use disorder on MAT, recurrent lower extremity cellulitis, HTN. PFSH All Active Problems (Updated 01/16/25 @ 17:11 by Chandler Melton MD) Opioid use disorder, severe, in early remission, dependence (Chronic) CKD (chronic kidney disease) stage 2, GFR 60-89 ml/min (Chronic) Cocaine intoxication (Acute) Malaise and fatigue (Acute) Bradycardia with 31-40 beats per minute (Acute) Cellulitis of leg, right (Acute) Leg wound, right (Acute) Leg wound, left (Acute) Nicotine dependence (Acute) Hypertensive emergency (Acute) Hypertension (Chronic) Cellulitis of leg, right (Acute) Right middle lobe pneumonia (Acute) Hypoxia (Acute) Sepsis (Acute) Leukocytosis (Acute) Mild shortness of breath (Acute) Chest pain (Acute) Hypoxia (Acute) Recurrent apnea (Acute) Hypertensive emergency (Acute) Bilateral edema of lower extremity (Acute) Dyspnea (Acute) Right rotator cuff tear (Acute) Abnormal CT scan, kidney (Acute) Anxiety (Chronic) Medical non-compliance (Acute) Aragon esophagus (Acute) Opiate dependence (Chronic) managed on suboxone Medical History Palliative care encounter Obstructive sleep apnea Chronic venous insufficiency COPD (chronic obstructive pulmonary disease) Diabetic neuropathy Hx of deep venous thrombosis on Coumadin Diabetes mellitus Hypertension Cocaine abuse 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 S/P percutaneous endoscopic gastrostomy (PEG) tube placement History of ankle surgery S/P spinal surgery Family History Father No problems noted. Mother COPD (chronic obstructive pulmonary disease) Hypertension Diabetes Heart disease Sister Stroke Social History Smoking/Tobacco Use Status: Current every day Tobacco Type: cigarettes Years smoked: 44 Tobacco: How many years used: 40 Smoking risk assessment performed?: Yes Alcohol Intake: former Drug use: Daily Substance use type: marijuana and crack/cocaine Details: days since last use Caregiver/Support person: Yes Household members: friend(s) Housing: house Number of Children: 0 number of grandchildren: 1 current occupation: Disabled Pets and animals: Yes Pets and animals: cat(s) Current gender identity: male What type of physical activity do you participate in: none Do you feel safe at home: Yes Do you feel safe in your relationship?: Yes Additional Social history: Lives with ex- Vanessa, who is his caregiver. Lives in private home. Meds Allergies and Home Medications Allergies Allergy/AdvReac Type Severity Reaction Status Date / Time Penicillins AdvReac Severe Vomiting Verified 01/16/25 12:47 hydrocodone AdvReac Intermediate vomiting Verified 01/16/25 12:47 Home Medications ?Medication ?Instructions ?Recorded ?Confirmed ?Type esomeprazole magnesium 40 mg 40 mg PO DAILY 05/05/20 01/16/25 History capsule,delayed release (Nexium) aspirin 81 mg tablet 81 mg PO DAILY 08/03/20 01/16/25 History duloxetine 30 mg capsule,delayed 30 mg PO BID 08/03/20 01/16/25 History release acetaminophen 325 mg tablet 1,000 mg PO Q6H PRN 09/27/20 01/16/25 History (Tylenol) albuterol sulfate 90 mcg/actuation 2 inh inhalation Q6H PRN 04/12/22 01/16/25 History aerosol inhaler cyanocobalamin (vitamin B-12) 1,000 mcg PO DAILY 03/06/23 01/16/25 History 1,000 mcg tablet (Vitamin B-12) amlodipine 2.5 mg tablet 2.5 mg PO DAILY 09/30/23 01/16/25 History gabapentin 600 mg tablet 600 mg PO TID 09/30/23 01/16/25 History beclomethasone dipropionate 80 1 inh inhalation BID PRN 12/27/23 01/16/25 History mcg/actuation HFA breath activated aerosol (Qvar RediHaler) spironolactone 25 mg tablet 25 mg PO DAILY #30 tabs 04/26/24 01/16/25 Rx lisinopril 40 mg tablet 40 mg PO DAILY 07/07/24 01/16/25 History buprenorphine 8 mg-naloxone 2 mg 1 film sublingual DAILY 10/01/24 01/16/25 History sublingual film (Suboxone) clonidine 0.1 mg/24 hr weekly 0.1 mg transdermal Q7D #4 ea 10/04/24 01/16/25 Rx transdermal patch docusate sodium 100 mg capsule 100 mg PO BID #30 caps 10/04/24 01/16/25 Rx (Colace) naloxone 4 mg/actuation nasal 1 spray intranasal Q3M #2 ea 10/04/24 01/16/25 Rx spray (Narcan) polyethylene glycol 3350 17 gram 17 g PO DAILY #30 ea 10/04/24 01/16/25 Rx oral powder packet tramadol 50 mg tablet 50 mg PO Q6H PRN PRN #20 tabs 10/04/24 01/16/25 Rx clindamycin HCl 150 mg capsule 450 mg (3 x 150 mg) PO Q8H #42 caps 12/29/24 01/16/25 Rx (Cleocin HCl) L. acidophilus,casei,rhamnosus 50 1 cap PO DAILY 01/16/25 01/16/25 History billion cell capsule,delayed release (Bio-K plus) atorvastatin 20 mg tablet 20 mg PO DAILY 01/16/25 01/16/25 History dulaglutide 3 mg/0.5 mL 3 mg subcut .Qweekly 01/16/25 01/16/25 History subcutaneous pen injector (Trulicity) umeclidinium 62.5 mcg-vilanterol 1 inh inhalation DAILY 01/16/25 01/16/25 History 25 mcg/actuation powdr for inhalation (Anoro Ellipta) Exam Narrative Exam Narrative: General: This is a somnolent, disheveled man in no distress HEENT: Normocephalic, atraumatic. Dry mucous membranes. CV: RRR after atropine Resp: CTAB Abd: soft, NTND MSK: voluntary motion x4. Stigmata of venous stasis with broken skin in various stages of healing. Previous ink demarcation still present at site of previous cellulitis, no edema at this time. Neuro: awake, alert, no focal deficits Results Labs 01/16/25 09:30 01/16/25 09:30 Labs: Laboratory Results - last 24 hr 01/16/25 01/16/25 01/16/25 09:30 10:40 11:03 WBC 7.97 RBC 4.89 Hgb 13.4 L Hct 41.8 MCV 86 MCH 27.4 MCHC 32.1 RDW 14.6 H Plt Count 257 MPV 8.8 Immature Gran % 0.4 Neutrophils % 68.2 Lymphocytes % 19.2 Monocytes % 6.9 Eosinophils % 3.9 Basophils % 1.4 Nucleated RBC % 0.0 Absolute Neutrophils 5.44 Absolute Lymphocytes 1.53 Absolute Monocytes 0.55 Absolute Eosinophils 0.31 Absolute Basophils 0.11 PT 10.1 INR 1.0 VBG Lactate 1.7 Sodium 143 Potassium 4.4 Chloride 110 H Carbon Dioxide 25.4 Anion Gap 7.6 BUN 24 H Creatinine 1.27 H Est GFR (CKD-EPI 2020) 57.99 Glucose 155 H Hemoglobin A1c 6.6 H Calcium 9.5 Magnesium 2.0 Total Bilirubin 0.40 AST 12 ALT 8 L Alkaline Phosphatase 73 Troponin I 7 7 NT-Pro-B Natriuret Pep 202 Total Protein 7.9 Albumin 4.5 Lipase 34 TSH 0.97 Urine Color Yellow Urine Clarity Clear Urine pH 7.0 Ur Specific [place] 1.020 Urine Protein 100 H Urine Ketones Negative Urine Blood Negative Urine Nitrite Negative Urine Bilirubin Negative Urine Urobilinogen 0.2 Ur Leukocyte Esterase Negative Urine RBC 0-2 Urine WBC 0-2 Ur Epithelial Cells Negative Urine Crystals Negative Urine Bacteria Negative Urine Casts Negative Urine Mucus Negative Ur Culture Indicated? No Urine Glucose 250 H Urine Opiates Screen Negative Urine Methadone Screen Negative Ur Barbiturates Screen Negative Ur Tricyclics Screen Negative Ur Amphetamines Screen Negative U Benzodiazepines Scrn Negative Urine Cocaine Screen Positive A U Cannabinoids Screen Positive A Ethyl Alcohol < 3.0 01/16/25 12:21 WBC RBC Hgb Hct MCV MCH MCHC RDW Plt Count MPV Immature Gran % Neutrophils % Lymphocytes % Monocytes % Eosinophils % Basophils % Nucleated RBC % Absolute Neutrophils Absolute Lymphocytes Absolute Monocytes Absolute Eosinophils Absolute Basophils PT INR VBG Lactate Sodium Potassium Chloride Carbon Dioxide Anion Gap BUN Creatinine Est GFR (CKD-EPI 2020) Glucose Hemoglobin A1c Calcium Magnesium Total Bilirubin AST ALT Alkaline Phosphatase Troponin I Cancelled NT-Pro-B Natriuret Pep Total Protein Albumin Lipase TSH Urine Color Urine Clarity Urine pH Ur Specific [place] Urine Protein Urine Ketones Urine Blood Urine Nitrite Urine Bilirubin Urine Urobilinogen Ur Leukocyte Esterase Urine RBC Urine WBC Ur Epithelial Cells Urine Crystals Urine Bacteria Urine Casts Urine Mucus Ur Culture Indicated? Urine Glucose Urine Opiates Screen Urine Methadone Screen Ur Barbiturates Screen Ur Tricyclics Screen Ur Amphetamines Screen U Benzodiazepines Scrn Urine Cocaine Screen U Cannabinoids Screen Ethyl Alcohol Last Vital Signs Pulse 74 01/16/25 13:11 Resp 20 01/16/25 11:50 BP 187/110 H 01/16/25 13:11 Pulse Ox 97 01/16/25 13:11 VTE Prohylaxis Risk Level: Moderate/High Risk Contraindications: None Prophylaxis: Pharmacologic Time Spent Time spent with Patient: 40-54 minutes Time was spent: preparing to see the patient(eg.review tests), obtaining and/or reviewing separately otained hiistory, ordering medications,tests, procedures, referring, communicating with other health care center manager, indepentently interpreting results, counseling the patient and care coordination
[2025-01-16] MEDS: Clindamycin 150 MG CAP 450 MG PO (14:29)
[2025-01-16] MEDS: Gabapentin 600 MG TAB PO ×2 (14:29→20:45)
--- NOTE | 2025-01-16 14:55 | W.PC.ACHO ---
Registration Status: ADM IN Primary Language: Preferred Language: Yi ED Information & Data Chief Complaint Arrhythmia 01/16/25 10:04 Chief Complaint Arrhythmia 01/16/25 10:02 Triage Note Pt complaining of not 01/16/25 09:24 feeling well. complaining of SOB Medical / Surgical History (Last Reviewed 10/08/24 @ 06:37 by Arya Lei MD) Leg wound, right Palliative care encounter Obstructive sleep apnea Chronic venous insufficiency COPD (chronic obstructive pulmonary disease) Diabetic neuropathy Hx of deep venous thrombosis Diabetes mellitus Hypertension Cocaine abuse Cerebral septic emboli GI bleed Osteomyelitis of left fibula Endocarditis Depression MSSA (methicillin susceptible Staphylococcus aureus) septicemia (Last Reviewed 10/08/24 @ 06:37 by Arya Lei MD) S/P endoscopy H/O aortic valve replacement S/P hardware removal S/P percutaneous endoscopic gastrostomy (PEG) tube placement History of ankle surgery S/P spinal surgery Most Recent Vital Signs Temperature 36.9 C 01/16/25 13:50 Temperature Source Temporal Artery Scan 01/16/25 13:50 Pulse 51 L 01/16/25 14:16 Pulse 53 L 01/16/25 14:16 Respiratory Rate 12 01/16/25 14:16 Respiratory Effort Normal, Non-Labored 01/16/25 13:50 Respiratory Depth Shallow 01/16/25 13:50 Respiratory Pattern Normal 01/16/25 13:50 Blood Pressure 158/87 H 01/16/25 14:16 Blood Pressure Mean 110 01/16/25 14:16 Blood Pressure Position Supine 01/16/25 13:50 Pulse Oximetry 98 01/16/25 14:16 Oxygen Delivery Method Room Air 01/16/25 13:50 Oxygen Flow Rate 0 01/16/25 13:50 Pain Level 0 01/16/25 13:50 Allergies Penicillins Adverse Reaction (Severe, Verified 01/16/25 12:47) Vomiting hydrocodone Adverse Reaction (Intermediate, Verified 01/16/25 12:47) vomiting Active Medications Generic Name Dose Route Start Last Admin Trade Name Freq PRN Reason Stop Dose Admin Clindamycin HCl 450 mg 01/16/25 14:00 01/16/25 14:29 Clindamycin 150 Mg Cap PO 450 mg Q8H HAMLET Administration Gabapentin 600 mg 01/16/25 14:00 01/16/25 14:29 Gabapentin 600 Mg Tab PO 600 mg TID HAMLET Administration Sodium Chloride 0 ml 01/16/25 09:20 01/16/25 09:39 Normal Saline Flush 10 Ml Syr IVP 10 ml PRN PRN Administration IV IV Catheter Type [Left Saline Lock Antecubital] IV Catheter Gauge [Left 20 Antecubital] Diet Orders Category Date Time Status Heart Healthy Eating [DIET] Nutrition 01/16/25 Lunch Active Diagnostics 01/16/25 01/16/25 01/16/25 Range/Units 12:21 11:03 10:40 WBC (4.4-10.8) 10^3/uL RBC (4.36-5.78) 10^6/uL Hgb (13.5-17.5) g/dL Hct (40.0-50.0) % MCV (80-95) fL MCH (27.0-33.0) pg MCHC (32.0-36.0) % RDW (11.8-14.1) % Plt Count (130-400) 10^3/uL MPV (8.0-11.0) fL Immature Gran % % Neutrophils % % Lymphocytes % % Monocytes % % Eosinophils % % Basophils % % Nucleated RBC % (0.0-0.3) % Absolute Neutrophils (1.2-6.7) 10^3/uL Absolute Lymphocytes (1.2-3.4) 10^3/uL Absolute Monocytes (0.1-0.8) 10^3/uL Absolute Eosinophils (0.0-0.7) 10^3/uL Absolute Basophils (0.0-0.2) 10^3/uL PT (9.1-11.1) sec INR (0.9-1.1) VBG Lactate (<or=2.0) mmol/L Sodium (136-145) mmol/L Potassium (3.5-5.1) mmol/L Chloride (98-107) mmol/L Carbon Dioxide (20.0-31.0) mmol/L Anion Gap (3-11) mmol/L BUN (9-23) mg/dL Creatinine (0.73-1.18) mg/dL Est GFR (CKD-EPI 2020) (mL/min/1.73m2) Glucose (74-106) mg/dL Hemoglobin A1c (<5.7) % Calcium (8.3-10.6) mg/dL Magnesium (1.6-2.6) mg/dL Total Bilirubin (0.2-1.2) mg/dL AST (<34) U/L ALT (10-49) U/L Alkaline Phosphatase (46-116) U/L Troponin I Cancelled 7 (<54) ng/L NT-Pro-B Natriuret Pep (<300) pg/mL Total Protein (5.7-8.2) g/dL Albumin (3.2-5.0) g/dL Lipase (<53) U/L TSH (0.55-4.78) uIU/mL Urine Color Yellow (Yellow) Urine Clarity Clear (Clear) Urine pH 7.0 (5-8) Ur Specific [place] 1.020 (1.005-1.025) Urine Protein 100 H (Neg-Trace) mg/dL Urine Ketones Negative (Negative) mg/dL Urine Blood Negative (Negative) Urine Nitrite Negative (Negative) Urine Bilirubin Negative (Negative) Urine Urobilinogen 0.2 (Up to 0.2) mg/dL Ur Leukocyte Esterase Negative (Negative) Urine RBC 0-2 (0-2) HPF Urine WBC 0-2 (0-5) HPF Ur Epithelial Cells Negative (Negative) HPF Urine Crystals Negative (Negative) HPF Urine Bacteria Negative (Negative) HPF Urine Casts Negative (Negative) LPF Urine Mucus Negative (Negative) Ur Culture Indicated? No Urine Glucose 250 H (Negative) mg/dL Urine Opiates Screen Negative (Negative) Urine Methadone Screen Negative (Negative) Ur Barbiturates Screen Negative (Negative) Ur Tricyclics Screen Negative (Negative) Ur Amphetamines Screen Negative (Negative) U Benzodiazepines Scrn Negative (Negative) Urine Cocaine Screen Positive A (Negative) U Cannabinoids Screen Positive A (Negative) Ethyl Alcohol < 3.0 (<3) mg/dL 01/16/ Range/Units 09:30 WBC 7.97 (4.4-10.8) 10^3/uL RBC 4.89 (4.36-5.78) 10^6/uL Hgb 13.4 L (13.5-17.5) g/dL Hct 41.8 (40.0-50.0) % MCV 86 (80-95) fL MCH 27.4 (27.0-33.0) pg MCHC 32.1 (32.0-36.0) % RDW 14.6 H (11.8-14.1) % Plt Count 257 (130-400) 10^3/uL MPV 8.8 (8.0-11.0) fL Immature Gran % 0.4 % Neutrophils % 68.2 % Lymphocytes % 19.2 % Monocytes % 6.9 % Eosinophils % 3.9 % Basophils % 1.4 % Nucleated RBC % 0.0 (0.0-0.3) % Absolute Neutrophils 5.44 (1.2-6.7) 10^3/uL Absolute Lymphocytes 1.53 (1.2-3.4) 10^3/uL Absolute Monocytes 0.55 (0.1-0.8) 10^3/uL Absolute Eosinophils 0.31 (0.0-0.7) 10^3/uL Absolute Basophils 0.11 (0.0-0.2) 10^3/uL PT 10.1 (9.1-11.1) sec INR 1.0 (0.9-1.1) VBG Lactate 1.7 (<or=2.0) mmol/L Sodium 143 (136-145) mmol/L Potassium 4.4 (3.5-5.1) mmol/L Chloride 110 H (98-107) mmol/L Carbon Dioxide 25.4 (20.0-31.0) mmol/L Anion Gap 7.6 (3-11) mmol/L BUN 24 H (9-23) mg/dL Creatinine 1.27 H (0.73-1.18) mg/dL Est GFR (CKD-EPI 2020) 57.99 (mL/min/1.73m2) Glucose 155 H (74-106) mg/dL Hemoglobin A1c 6.6 H (<5.7) % Calcium 9.5 (8.3-10.6) mg/dL Magnesium 2.0 (1.6-2.6) mg/dL Total Bilirubin 0.40 (0.2-1.2) mg/dL AST 12 (<34) U/L ALT 8 L (10-49) U/L Alkaline Phosphatase 73 (46-116) U/L Troponin I 7 (<54) ng/L NT-Pro-B Natriuret Pep 202 (<300) pg/mL Total Protein 7.9 (5.7-8.2) g/dL Albumin 4.5 (3.2-5.0) g/dL Lipase 34 (<53) U/L TSH 0.97 (0.55-4.78) uIU/mL Urine Color (Yellow) Urine Clarity (Clear) Urine pH (5-8) Ur Specific [place] (1.005-1.025) Urine Protein (Neg-Trace) mg/dL Urine Ketones (Negative) mg/dL Urine Blood (Negative) Urine Nitrite (Negative) Urine Bilirubin (Negative) Urine Urobilinogen (Up to 0.2) mg/dL Ur Leukocyte Esterase (Negative) Urine RBC (0-2) HPF Urine WBC (0-5) HPF Ur Epithelial Cells (Negative) HPF Urine Crystals (Negative) HPF Urine Bacteria (Negative) HPF Urine Casts (Negative) LPF Urine Mucus (Negative) Ur Culture Indicated? Urine Glucose (Negative) mg/dL Urine Opiates Screen (Negative) Urine Methadone Screen (Negative) Ur Barbiturates Screen (Negative) Ur Tricyclics Screen (Negative) Ur Amphetamines Screen (Negative) U Benzodiazepines Scrn (Negative) Urine Cocaine Screen (Negative) U Cannabinoids Screen (Negative) Ethyl Alcohol (<3) mg/dL Intake and Output - 24 Hour Total 01/16/25 09:04 thru 01/16/25 14:25 Intake Total 1020 Output Total 200 Balance 820 Weight 81.2 kg Intake: IV 1020 Output: Urine 200 Falls Risk Assessment History of Falls Previous History 01/16/25 13:50 Contributing Factors Unstable,Impairments, 01/16/25 13:50 Medications Ambulatory Aids Uses ambulatory device + 01/16/25 13:50 Tubes/Lines With any additional score 01/16/25 13:50 Gait Evaluation W/any additional score 01/16/25 13:50 Cognition No cognitive impairment 01/16/25 13:50 Fall Total Score 94 01/16/25 13:50 Level of Risk Maximum Risk 01/16/25 13:50 Attestation Statement: By documenting the first initial, last name, and credentials of the reporting nurse below, both parties acknowledge that all relevant information regarding the patient handoff has been communicated, and that all questions have been addressed to ensure continuity and safety of care. Additional Patient Information/Comments: Report Received From: Gissel Gaytan RN
[2025-01-16] MEDS: DULoxetine 30 MG CAP PO (20:45)
[2025-01-16] MEDS: Docusate Sodium 100 MG CAP PO (20:45)
[2025-01-16] MEDS: Heparin 5,000 UNITS/ML VIAL 5000 UNITS SC (21:25)
[2025-01-17] VITALS (38 sets, daily range): BP systolic 134–177; BP diastolic 72–105; PULSE 37–80; RESP 10–29; TEMP 36.1–36.7; O2SAT 87–97
[2025-01-17] MEDS: Heparin 5,000 UNITS/ML VIAL 5000 UNITS SC ×3 (06:12→21:05)
[2025-01-17 07:03] LABS: Abs Immature Grans 0.03 10^3/uL (0.0-0.06); HCT 39.5 % (40.0-50.0); HGB 12.5 g/dL (13.5-17.5); Immature Grans % 0.4 %; MCH 26.9 pg (27.0-33.0); MCHC 31.6 % (32.0-36.0); MCV 85 fL (80-95); MPV 9.7 fL (8.0-11.0); Platelet Count 273 10^3/uL (130-400); RBC 4.65 10^6/uL (4.36-5.78); RDW 14.7 % (11.8-14.1); RDW-SD 45.5 fL; WBC 7.88 10^3/uL (4.4-10.8)
[2025-01-17 07:28] LABS: Magnesium 1.9 mg/dL (1.6-2.6)
[2025-01-17 07:36] LABS: ALT < 7 U/L (10-49); AST 10 U/L (<34); Albumin 3.8 g/dL (3.2-5.0); Alkaline Phosphatase 66 U/L (46-116); Anion Gap 9.3 mmol/L (3-11); BUN 22 mg/dL (9-23); Bilirubin, Total 0.50 mg/dL (0.2-1.2); CO2 25.7 mmol/L (20.0-31.0); Calcium 8.7 mg/dL (8.3-10.6); Chloride 109 mmol/L (98-107); Glucose 111 mg/dL (74-106); Potassium 4.5 mmol/L (3.5-5.1); Sodium 144 mmol/L (136-145); Total Protein 6.6 g/dL (5.7-8.2)
--- NOTE | 2025-01-17 07:38 | PDOC.CMIN ---
Date of service: 01/17/25 Time of Service: 15:56 Care Management Initial Assmt Initial Assessment Reason for Hospitalization: bradycardia Functional Status/Living Situation Patient Presentation: Mio sitting up in his chair and awake when CM met with him. He was previously discharged from [facility] on 12/29 after treatment for cellulitis. Home Health orders were placed at the time of discharge; however, due to an unfortunate communication breakdown, HH services were never initiated. Mio re-presented to the ED on 01/16 for evaluation of general malaise and was found to have bradycardia with heart rates between 31?40 beats per minute (see ED documentation). Per report, Mio may require a pacemaker, which will be managed by his PCP, likely beginning with a cardiology referral. Today, Mio reports that he is feeling ?horrible.? Mio resides in [place] with a full-time caregiver, his ex- Arline. Per Aminah, Mio?s community program assistant from [facility], he receives [facility] benefits with 52.15 hours of paid personal care bi-weekly, and Arline serves as his caregiver. Aminah noted that Arline manages most of his daily coordination and provides significant support. Mio currently does not receive additional home or community-based services but is agreeable to initiating new HH services. CM notified the CCC at PCP office of Mio's admission. CM will continue to follow and support as appropriate. Town of Residence: [place] Resides with: Other (Home caregiver Arline Graham through [facility]) Significant Other/Family: Out of area (States there are no other family members) Caregiver/Guardian: ex - /caregiver, Arline Vanegas Employment Status: Disabled Instrumental Activities of Daily Living (ADLs): Requires support Medications Medication Management: No Issues/Barriers identified Physical Functioning/Mobility Assistive Device: FWW Advance Directives Advance Directives: Do you have an Advance Directive: Y 10/10/19, 10:02 AD On File at [facility]: N 0418/13, 08:23 Date Asked 09/30/24 09/30/24, 07:56 AD Date Reviewed COLST On File at [facility] COLST Date Scanned Code Status Resuscitation Status Full Code Portal Pt does not currently have a portal and education provided: Yes Insurance Coverage/Financial Issues Insurance: Medicaid of [place] - [id number] Care Team Visit Care Team Role Provider Type Evon Howard MD Primary Care Provider [facility] STAFF PHYSICIAN InPatient Rupert Valencia Other Providers OTHER Tracy Castrejon MD Emergency Provider [facility] STAFF PHYSICIAN Chandler Melton MD Admit Provider [facility] STAFF PHYSICIAN Attending Provider Discharge Potential Discharge Needs: PCP F/U Appt Anticipated Barriers to Discharge: Medical Status Patient/Family Education Needs: Review discharge instructions, discuss Ask Me Three Transportation: Private vehicle Plan: Anticipate Mio will return home with new HH PT/OT/RN/EQUITY STRUCTURER, once medically cleared. His caregiver, Arline, will drive him home via private vehicle. He will follow up with his PCP and discharge plan of care. CM will continue to follow. Social Determinants of Health Screening Social Determinants of health last assessed in clinic: 01/17/25 Will the Patient Participate in the Screening?: Yes Do you worry about having a steady place to live?: no Problems where you live: no known problems In the past 12 months, have you had to go without electric, gas, oil or water in your home?: yes 1. Within the past 12 months, we worried whether our food would run out before we got money to buy more.: Never true 2. Within the past 12 months, the food we bought just didn't last and we didn't have money to get more.: Never true Has lack of transportation kept you from medical appointments or from doing things needed for daily living?: yes Has anyone in your life made you feel unsafe or unsupported?: no How hard is it for you to pay for the very basics like food, housing, medical care, and heating? Would you say it is:: Not hard at all Do you want help finding or keeping work or a job?: I do not need or want help If for any reason you need help with day-to-day activities such as bathing, preparing meals, shopping, managing finances, etc., do you get the help you need?: I get all the help I need How often do you feel lonely or isolated from those around you?: Never Do you speak a language other than Lithuanian at home?: Yes Does the patient want assistance with any of the above?: No Health Related Social Needs Health related social needs: transportation insecurity (Z59.82), material hardship(utilities) (Z59.12) and education (Z55.6) Health related social needs details: Pt requires assistance from Vanessa his former for bathing, cooking and dressing. PFSH All Active Problems (Updated 01/16/25 @ 17:11 by Chandler Melton MD) Opioid use disorder, severe, in early remission, dependence (Chronic) CKD (chronic kidney disease) stage 2, GFR 60-89 ml/min (Chronic) Cocaine intoxication (Acute) Malaise and fatigue (Acute) Bradycardia with 31-40 beats per minute (Acute) Cellulitis of leg, right (Acute) Leg wound, right (Acute) Leg wound, left (Acute) Nicotine dependence (Acute) Hypertensive emergency (Acute) Hypertension (Chronic) Cellulitis of leg, right (Acute) Right middle lobe pneumonia (Acute) Hypoxia (Acute) Sepsis (Acute) Leukocytosis (Acute) Mild shortness of breath (Acute) Chest pain (Acute) Hypoxia (Acute) Recurrent apnea (Acute) Hypertensive emergency (Acute) Bilateral edema of lower extremity (Acute) Dyspnea (Acute) Right rotator cuff tear (Acute) Abnormal CT scan, kidney (Acute) Anxiety (Chronic) Medical non-compliance (Acute) Aragon esophagus (Acute) Opiate dependence (Chronic) managed on suboxone Medical History Palliative care encounter Obstructive sleep apnea Chronic venous insufficiency COPD (chronic obstructive pulmonary disease) Diabetic neuropathy Hx of deep venous thrombosis on Coumadin Diabetes mellitus Hypertension Cocaine abuse 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 S/P percutaneous endoscopic gastrostomy (PEG) tube placement History of ankle surgery S/P spinal surgery Family History Father No problems noted. Mother COPD (chronic obstructive pulmonary disease) Hypertension Diabetes Heart disease Sister Stroke Social History Smoking/Tobacco Use Status: Current every day Tobacco Type: cigarettes Years smoked: 44 Tobacco: How many years used: 40 Smoking risk assessment performed?: Yes Alcohol Intake: former Drug use: Daily Substance use type: marijuana and crack/cocaine Details: days since last use Caregiver/Support person: Yes Household members: friend(s) Housing: house Number of Children: 0 number of grandchildren: 1 current occupation: Disabled Pets and animals: Yes Pets and animals: cat(s) Current gender identity: male What type of physical activity do you participate in: none Do you feel safe at home: Yes Do you feel safe in your relationship?: Yes Additional Social history: Lives with ex- Vanessa, who is his caregiver. Lives in private home. Readmission Within the Past 30 Days Yes or No: Yes Date of First Admission Date of 1st Admission: 12/26/24 Date of this Admission Date of Admission: 01/17/25 This admission was: Through ED Office Visit Since 1st Admission Have you seen your PCP in the office since discharge?: No Had an appointment Been Scheduled?: No Speicalist Appointments Have you seen any other specialist since your 1st Admission?: No I. Interview patient and/or Family Difficulty reaching your doctor or getting an office appt?: No Have you had trouble purchasing/ or taking medication?: No Have you had trouble with getting meals at home?: No Did you feel ready for discharge when you left the last time: Yes Were services received that you thought were set up on disch: No What services were received?: Suppose to have HH, never began Why weren't services received?: unsure Did you call your physician beore you came to the ED?: No Did your physician tell you to come in?: No If the patient had a VNA ordered Did the patient have a VNA order?: Yes Did you call the VNA before you came?: No (Had orders, they never went out ) Did the VNA tell you to come to the hospital?: No ED visits How many ED visits in the past 12 months: 16 Assessment for Readmission Summary of readmission circumstances, based upon interviews: general malaise Anticipated HH Services Anticipated HH Services at Discharge [facility] Needed, EQUITY STRUCTURER, OT, PT and RN Anticipated Date of Discharge: 01/21/25..
[2025-01-17] MEDS: Tiotropium/Olodaterol 10 PUFF INHALER 2 PUFF IH (07:55)
[2025-01-17] MEDS: DULoxetine 30 MG CAP PO ×2 (08:17→20:21)
[2025-01-17] MEDS: Aspirin E.C. 81 MG TABEC PO (08:17)
[2025-01-17] MEDS: Lactobacillus Acidophilus CAP 1 CAP PO (08:17)
[2025-01-17] MEDS: Lisinopril 20 MG TAB 40 MG PO (08:17)
[2025-01-17] MEDS: Cyanocobalamin 500 MCG TAB 1000 MCG PO (08:17)
[2025-01-17] MEDS: Gabapentin 600 MG TAB PO ×3 (08:17→20:21)
[2025-01-17] MEDS: Docusate Sodium 100 MG CAP PO ×2 (08:18→20:21)
[2025-01-17] MEDS: Atorvastatin 20 MG TAB PO (08:18)
[2025-01-17] MEDS: amLODIPine 2.5 MG TAB PO (08:18)
[2025-01-17] MEDS: Buprenorphine/Naloxone 8 mg/2 mg FILM 1 EACH SL (08:18)
[2025-01-17] MEDS: Normal Saline Flush 10 ML SYR IVP ×4 (08:19→20:22)
[2025-01-17] MEDS: Esomeprazole 40 MG CAPCR PO (08:23)
--- NOTE | 2025-01-17 08:28 | PT.INIE ---
PT Notes Visit Reasons: bradycardia Physical Therapy Inpatient Initial Evaluation Date: 01/17/2025 Referring Doctor: Chandler Melton MD PT Orders: PT CONSULT: D/C Non-PT Dependent Precautions: Fall. Standard. Activity as tolerated. Patient Profile/Admitting Diagnosis: Mio is a 58-year-old male with complex co-morbidities below currently on Suboxone who is admitted for management of bradycardia, cocaine intoxication, CKD, and opiod use disorder. PMHX: All Active Problems (Updated 01/16/25 @ 17:11 by Chandler Melton MD) Opioid use disorder, severe, in early remission, dependence (Chronic) CKD (chronic kidney disease) stage 2, GFR 60-89 ml/min (Chronic) Cocaine intoxication (Acute) Malaise and fatigue (Acute) Bradycardia with 31-40 beats per minute (Acute) Cellulitis of leg, right (Acute) Leg wound, right (Acute) Leg wound, left (Acute) Nicotine dependence (Acute) Hypertensive emergency (Acute) Hypertension (Chronic) Cellulitis of leg, right (Acute) Right middle lobe pneumonia (Acute) Hypoxia (Acute) Sepsis (Acute) Leukocytosis (Acute) Mild shortness of breath (Acute) Chest pain (Acute) Hypoxia (Acute) Recurrent apnea (Acute) Hypertensive emergency (Acute) Bilateral edema of lower extremity (Acute) Dyspnea (Acute) Right rotator cuff tear (Acute) Abnormal CT scan, kidney (Acute) Anxiety (Chronic) Medical non-compliance (Acute) Aragon esophagus (Acute) Opiate dependence (Chronic) managed on suboxone Medical History Palliative care encounter Obstructive sleep apnea Chronic venous insufficiency COPD (chronic obstructive pulmonary disease) Diabetic neuropathy Hx of deep venous thrombosis on CoumadinDiabetes mellitus Hypertension Cocaine abuse 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 Has a ramp that he uses to get in and out of the house. Patient came out of previous incarceration in 2007. works full-time and, along with daughter Xochitl, has provided needed assistance with patient's ADL performance at home. Equipment Owned/DME: Hospital bed, FWW, bedside commode, shower chair, hand-held shower, grab bars, regular wheelchair Subjective: Complained of being cold. Had terrible dizziness upon sitting and standing up. Complained of pain all over. Objective: General Observation: Resting in bed. Telemetry monitoring in place. IV in left UE. distal half of B legs red with scabbed areas noted in crural areas. B hands swollen. Mental Status: Alert and oriented x 4 Pain Reported Generalized pain at 4-5/10 ROM: Right Upper Extremity: Shoulder Flexion WFL. Shoulder abduction WFL. Elbow flexion WFL. Wrist flexion WFL. Functional opening and closing of hand WFL. Left Upper Extremity: Shoulder Flexion WFL. Shoulder abduction WFL. Elbow flexion WFL. Wrist flexion WFL. Functional opening and closing of hand WFL. Right Lower Extremity: Hip flexion WFL. Hip abduction WFL. Knee flexion WFL. Ankle dorsiflexion from fully plantarflexed position to neutral only. Ankle plantarflexion WFL. Left Lower Extremity: Hip flexion WFL. Hip abduction WFL. Knee flexion WFL. Ankle dorsiflexionfrom fully plantarflexed position to neutral only. Ankle plantarflexion WFL. Strength: Right Upper Extremity: Shoulder flexors 4-/5. Shoulder abductors 4-/5. Elbow flexors 4-/5. Elbow extensors 4-/5. Seam Rubbing Machine Operator strong. Left Upper Extremity: Shoulder flexors 4-/5. Shoulder abductors 4-/5. Elbow flexors 4-/5. Elbow extensors 4-/5. Seam Rubbing Machine Operator strong. Right Lower Extremity: Hip flexors 4-/5. Hip abductors 4-/5. Knee flexors 4-/5. Knee extensors 4-/5. Ankle dorsiflexors 3-/5. Ankle plantarflexors 3/5. Left Lower Extremity:Hip flexors 4/5. Hip abductors 4/5. Knee flexors 4-/5. Knee extensors 4-/5. Ankle dorsiflexors 3-/5. Ankle plantarflexors 3/5. Sensation: Intact as to pain and pressure on bilateral lower extremities. Bed Mobility/Transfers: Minimal cueing provided for use of B hands as needed for support, movement sequence, AD management, and posture to reduce fall risk and minimize pain report Supine to sit minimal assist Sit to stand minimal assistt with FWW Stand to sit stand by assist with FWW Bed to chair minimal assistt with FWW Gait: Tolerated only a total of about 8 small steps from edeg of bed to bedside recliner with complaint of severe dizziness, weakness, and generalized pain. Also complained of being cold. BP upon sitting up 171/89 mmHg with HR of 74 bpm. Nurse Palomo remeasured BP which increased up to 172/107 mmHg and HR 62 bbpm. Deferred further mobility performance due for this session after patient was sat comfortably on the bedside recliner. Balance: Static Sitting: Good Dynamic Sitting: Fair Static Standing: Fair Dynamic Standing: Fair Special Tests: Mobility Limitations Standardized Measure [facility] AM-PAC 6 clicks Basic Mobility Inpatient Short Form: Raw Score: 15 CMS Score: 58% deficit Informed Consent/Education: Patient instructed in purpose of PT consult and plan of care. Agreeable to proceed with established PT POC to achieve personal goals. Assessment: Intensity of dizziness limited patient's abilty and tolerance with mobility performance during today's session. BP highest at 172/107 just sitting up at edge of bed which Nurse Palomo is aware of and is managing. Will need physical therapy services here and at home for conditioning/strengthneing, balance, and functional mobility retraining. Patient presented with clinical signs and symptoms consistent with current/admitting diagnoses that have resulted to mobility limitations, gait instability, generalized weakness, and impairment of motor control as demonstrated by the following impairment level findings: 1. Decreased strength to B LE major muscle group strength 2. Impaired standing balance 3. Impaired activity tolerance Impairments are contributing to the following functional limitations: 1. Inability to safely ambulate without assistive device and physical assistance 2. Increase completion time for mobility ADL performance 3. Increased fall risk 4. Inability to negotiate steps alone safely Patient is assessed as a 60945 moderate complexity complexity based on the following: History: 58-year-old male with past medical history, impairment level findings, functional limitations, and a [facility] CMS deficit score of 58% as indicated above Examination: Demonstrable impairment in strength, balance, and range of motion with underlying impairments and functional limitations as documented above Presentation: Evolving Decision Makin moderate complexity Goals:1-2 weeks 1. Supine-Sit independent 2. Sit-Supine independent 3. Sit-Stand independent with FWW 4. Stand-Sit independent with FWW 5. Bed-Chair independent with FWW 6. Chair-Bed independent with FWW 7. Supervision gait on level surface with use of least restrictive device for at least 150 feet without report of pain nor dyspnea 8. Supervision with home exercise program 9. Good static and dynamic standing balance/tolerance Plan of Care/Treatment Plan: 1-2x/day, 7 days/week x 1 week. Plan of care has been reviewed with the RESPIRATORY PHYSICIAN providing the service under Physical Therapy direction. Initiate Physical Therapy intervention for strengthening, bed mobility, transfers, gait, stairs, balance training, use of assistive device. DISCHARGE RECOMMENDATIONS: PT TREATMENT CODE/TIME: 43290 x 20 minutes for 1 unit, 67338 x 14 minutes for 1 unit (08:28-08:52). Thank you very much for the opportunity to participate in the care of this patient. Zunilda Zapata PT, DPT, CLT [facility] [place], [place]
--- NOTE | 2025-01-17 14:33 | PT.INTREAT ---
PT Notes Visit Reasons: bradycardia Date: 01/17/2025 PRECAUTIONS: Fall. Standard. Activity as tolerated. SUBJECTIVE: Pt in bed when approached for therapy thia afternoon, pt agreed to participating with therapy intervention. OBJECTIVE: Swelling BLE? PAIN: denies VITALS: Monitored via telemetry Therapeutic Activities 88559: Direct one-on-one instruction in dynamic activities to improve functional performance. ?? BED MOBILITY/TRANSFERS? Rolling L/R: supervision Supine-sit: ?min A ? Sit-supine: ? supervision? Sit-stand: ?SBA? Stand-sit: ??SBA ? Bed-Chair:? SBA? Chair-bed: SBA Provided skilled cues and instruction on performance and technique throughout. ? Therapeutic Exercises 39539: Direct one-on-one instruction in therapeutic exercises to develop strength, endurance, range of motion and flexibility. Exercises: Sit to stand [id number] Seated SAQ [id number] Seated LAQ [id number] Seated marching [id number] Provided skilled instruction in proper exercise performance Provided skilled manual cues to facilitate proper muscle recruitment and/or form: ASSESSMENT:?Pt HR fluctuated between 70 to 100 with pt taking rest break when HR goes up. PLAN: Continue with balance training, global strengthening and general conditioning for improved safety, mobility and activity tolerance until pt is ready for DC. TREATMENT CODE/TIME: 33262q0, 09286q6 25mins (2:10-2:35pm)
--- NOTE | 2025-01-17 16:21 | PGE_ITS ---
Date of Service Date of service: 01/17/25 Time of Service: 08:00 Assessment and Plan Assessment and plan (1) Bradycardia with 31-40 beats per minute: Status: Acute Assessment and plan: Acute on chronic illness Atropine 0.5 mg IV given twice in ED HR sustaining in the 70's Will monitor for HR dips below 40 for additional doses of atropine No pacing anticipated at this time but ICU placement for possible additional atropine Jan 17: downgrading to the floor. Echo showing aortic prosthetic valve, no significant change from January 2024. Patient's does not recall being told he would need a pacemaker when he was in [place] earlier this year. (2) Cocaine intoxication: Status: Acute Assessment and plan: UDS positive for cocaine BP severely elevated on arrival, 212/65 He has previous admissions with positive cocaine and intermittent bradycardia (3) CKD (chronic kidney disease) stage 2, GFR 60-89 ml/min: Status: Chronic Assessment and plan: Renal function is at baseline (4) Opioid use disorder, severe, in early remission, dependence: Status: Chronic Assessment and plan: Continue suboxone Will give PRN tramadol 50 mg q6h Subjective Subjective Interval history since last seen: Mr Albert is feeling better. Some HR < 40 overnight, not sustained. Exam Narrative Exam Narrative: General: This is a somnolent, disheveled man in no distress HEENT: Normocephalic, atraumatic. Dry mucous membranes. CV: RRR after atropine Resp: CTAB Abd: soft, NTND MSK: voluntary motion x4. Stigmata of venous stasis with broken skin in various stages of healing. Previous ink demarcation still present at site of previous cellulitis, no edema at this time. Neuro: awake, alert, no focal deficits Objective Last Vital Signs Temp 36.1 C L 01/17/25 15:24 Pulse 55 L 01/17/25 14:01 Resp 14 01/17/25 14:01 BP 143/72 H 01/17/25 14:01 Pulse Ox 94 01/17/25 14:01 Laboratory Results - last 24 hr 01/17/25 05:30 WBC 7.88 RBC 4.65 Hgb 12.5 L Hct 39.5 L MCV 85 MCH 26.9 L MCHC 31.6 L RDW 14.7 H Plt Count 273 MPV 9.7 Immature Gran % 0.4 Neutrophils % 62.5 Lymphocytes % 24.0 Monocytes % 7.4 Eosinophils % 4.6 Basophils % 1.1 Nucleated RBC % 0.0 Absolute Neutrophils 4.93 Absolute Lymphocytes 1.89 Absolute Monocytes 0.58 Absolute Eosinophils 0.36 Absolute Basophils 0.09 Sodium 144 Potassium 4.5 Chloride 109 H Carbon Dioxide 25.7 Anion Gap 9.3 BUN 22 Creatinine 1.31 H Est GFR (CKD-EPI 2020) 55.95 Glucose 111 H Calcium 8.7 Magnesium 1.9 Total Bilirubin 0.50 AST 10 ALT < 7 L Alkaline Phosphatase 66 Total Protein 6.6 Albumin 3.8 VTE Prohylaxis Risk Level: Moderate/High Risk Contraindications: None Prophylaxis: Pharmacologic Time Spent with Patient Time Spent with Patient: 35-49 minutes Time was spent: preparing to see the patient(eg.review tests), obtaining and/or reviewing separately otained hiistory, ordering medications,tests, procedures, referring, communicating with other health healthcare sales representative, indepentently interpreting results, counseling the patient and care coordination
[2025-01-18 04:20] VITALS: BP 153/80; PULSE 63; RESP 17; TEMP 36.2; O2SAT 96
[2025-01-18] MEDS: Heparin 5,000 UNITS/ML VIAL 5000 UNITS SC (06:40)
[2025-01-18 07:00] VITALS: BP 173/93; PULSE 58; RESP 16; TEMP 36.4; O2SAT 93
[2025-01-18 07:02] LABS: Abs Immature Grans 0.02 10^3/uL (0.0-0.06); HCT 38.8 % (40.0-50.0); HGB 12.7 g/dL (13.5-17.5); Immature Grans % 0.3 %; MCH 27.5 pg (27.0-33.0); MCHC 32.7 % (32.0-36.0); MCV 84 fL (80-95); MPV 9.3 fL (8.0-11.0); Platelet Count 257 10^3/uL (130-400); RBC 4.61 10^6/uL (4.36-5.78); RDW 14.2 % (11.8-14.1); RDW-SD 43.7 fL; WBC 6.11 10^3/uL (4.4-10.8)
[2025-01-18 07:42] LABS: ALT < 7 U/L (10-49); AST 11 U/L (<34); Albumin 3.8 g/dL (3.2-5.0); Alkaline Phosphatase 64 U/L (46-116); Anion Gap 6.8 mmol/L (3-11); BUN 21 mg/dL (9-23); Bilirubin, Total 0.50 mg/dL (0.2-1.2); CO2 25.2 mmol/L (20.0-31.0); Calcium 9.1 mg/dL (8.3-10.6); Chloride 107 mmol/L (98-107); Glucose 104 mg/dL (74-106); Potassium 3.9 mmol/L (3.5-5.1); Sodium 139 mmol/L (136-145); Total Protein 6.9 g/dL (5.7-8.2)
[2025-01-18] MEDS: Lactobacillus Acidophilus CAP 1 CAP PO (07:52)
[2025-01-18] MEDS: Gabapentin 600 MG TAB PO ×2 (07:52→15:00)
[2025-01-18] MEDS: amLODIPine 2.5 MG TAB PO (07:55)
[2025-01-18] MEDS: Aspirin E.C. 81 MG TABEC PO (07:56)
[2025-01-18] MEDS: DULoxetine 30 MG CAP PO (07:56)
[2025-01-18] MEDS: Lisinopril 20 MG TAB 40 MG PO (07:57)
[2025-01-18] MEDS: Docusate Sodium 100 MG CAP PO (07:57)
[2025-01-18] MEDS: Esomeprazole 40 MG CAPCR PO (07:58)
[2025-01-18] MEDS: Atorvastatin 20 MG TAB PO (07:58)
[2025-01-18] MEDS: Normal Saline Flush 10 ML SYR IVP (07:59)
[2025-01-18] MEDS: Buprenorphine/Naloxone 8 mg/2 mg FILM 1 EACH SL (07:59)
[2025-01-18] MEDS: Cyanocobalamin 500 MCG TAB 1000 MCG PO (08:14)
[2025-01-18 09:53] VITALS: BP 163/86; PULSE 80
--- NOTE | 2025-01-18 10:39 | PTTR_ITS ---
Date of service: 01/18/25 Time of Service: 10:13 PT Notes Visit Reasons: bradycardia SUBJECTIVE: Reports he is still dizzy when he gets out of bed. I can't walk. OBJECTIVE:? supine: 160/81, 65-71 bpm, 95% sitting on EOB: 156/85 79 bpm 94. reports no dizziness standing 1 min: 138/86 80 bpm 93%. reports dizziness standing x 3 mins: 145/85 71 bpm 95%. reports dizziness and that he is unable to continue standing supine after 1 min: 165/88 76 bpm 94% no dizziness spoke with GEORGIE Perales about vitals. reports patient is supposed to be d/c'd to home today Treatment: supine to sit, sit to stand, standing at walker, all with supervision only. refused additional standing secondary to dizziness and refused walking secondary to dizziness. Assessment: Mio is a 59-year-old male with complex co-morbidities currently on Suboxone who is admitted for management of bradycardia, cocaine intoxication, CKD, and opiod use disorder. Limited upright function secondary to dizziness Plan: Continue daily PT as tolerated until d/c. ? d/c later today. Recommend HHPT upon discharge Billing Charges: Treatment Units Time Duration Manual Therapy (84818) Hands-on techniques to modulate pain increase joint range of motion reduce or eliminate soft tissue swelling, inflammation, or restriction facilitate relaxation and improve contractile and non-contractile tissue extensibility Therapeutic Procedures (32467) Instruction in therapeutic exercises to develop strength and endurance, range of motion and flexibility. HEP instruction and review: Provided skilled instruction in proper exercise performance: Provided skilled manual cues to facilitate proper muscle recruitment and/or movement?pattern: Neurological Re-Education (86786) to improve balance, coordination, kinesthetic and proprioceptive sensations. Ultrasound (29389) to promote healing Gait Training (82173) Therapeutic Activity (31989) instruction in dynamic activitie s with one on one patient contact by the provider to improve functional performance as follows: 2 25 Self Care Training (66253) Time Coded Treatment Minutes: 25 Total Treatment Time: 25
[2025-01-18 11:30] VITALS: BP 143/94; PULSE 77; RESP 16; TEMP 35.9; O2SAT 94
[2025-01-18] MEDS: Tiotropium/Olodaterol 10 PUFF INHALER 2 PUFF IH (11:44)
--- NOTE | 2025-01-18 13:51 | W.PM.DS.N ---
Date of service: 01/18/25 Time of Service: 08:00 DS: Diagnosis Discharge Diagnosis (1) Bradycardia with 31-40 beats per minute: Status: Acute Asessment and Plan: Acute on chronic illness Atropine 0.5 mg IV given twice in ED Monitored in ICU overnight for anticipated need for pacing or additional atropine HR sustained in the 70's, no additional need for atropine Downgraded to the floor on hospital day 2. Echo showing aortic prosthetic valve, no significant change from January 2024. Patient's does not recall being told he would need a pacemaker when he was in [place] earlier this year. Advised outpatient cardiology consult (2) Cocaine intoxication: Status: Acute Asessment and Plan: UDS positive for cocaine BP severely elevated on arrival, 212/65 He has previous admissions with positive cocaine and intermittent bradycardia (3) CKD (chronic kidney disease) stage 2, GFR 60-89 ml/min: Status: Chronic Asessment and Plan: Renal function is at baseline (4) Opioid use disorder, severe, in early remission, dependence: Status: Chronic Asessment and Plan: Continue suboxone PRN tramadol 50 mg q6h while hospitalized Discharge Plan Disposition Patient Disposition: Home Condition: Fair Discharge Details Reason For Visit: Bradycardia Admit Date/Time: 01/16/25 12:53 Admit Provider: Chandler Melton Attending Provider: Chandler Melton Primary Care Provider: Evon Howard [facility] Hospital Course: Mio Albert is a 59 year old man presenting January 16 with shortness of breath, not feeling well. He reports feeling poorly for a few days, with his whole body feeling off. He reports that he has felt lightheaded a few times per day. He feels like he is breathing fine but doesn't feel like he's getting enough air. He has not felt feverish. No nausea, no vomiting, no diarrhea. He was hospitalized December 29 for cellulitis which has improved with completion of home antibiotics. He has been taking his suboxone and has been started on some tramadol recently. In the ED, heart rate was 41, blood pressure 212/65, vitals otherwise unremarkable. EKG showed sinus bradycardia with HR 42. CXR and head CT unremarkable. Labs significant for mildly elevated blood glucose 155 with elevated creatinine 1.27, at baseline. Urine drug screen positive for cocaine and THC. He was given atropine 0.5 twice for heart rates that dipped below 40. He was given LR 1L bolus and 1g tylenol. [facility] cardiology was consulted, recommending overnight cardiac monitoring and echocardiagram when available, with no acute need for pacemaker placement. Of note, the patient has been referred to [facility] for pacemaker placement and has not gone to his appointments. PMH includes chronic intermittent bradycardia, longstanding cocaine use, opioid use disorder on MAT, recurrent lower extremity cellulitis, HTN. After admission, patient had brief occasional heart rates below 40 which were not sustained. He was evaluated by physical therapy and home services were recommended but patient deferred. At this time he is safe to return home with outpatient followup. Home Meds and New Rx's Prescriptions: Continued esomeprazole magnesium [Nexium] 40 mg capsule,delayed release(DR/EC) 40 mg PO DAILY albuterol sulfate 90 mcg/actuation HFA aerosol inhaler 2 inh inhalation Q6H PRN aspirin 81 mg Tablet 81 mg PO DAILY duloxetine 30 mg Capsule,Delayed Release(Dr/Ec) 30 mg PO BID cyanocobalamin (vitamin B-12) [Vitamin B-12] 1,000 mcg tablet 1,000 mcg PO DAILY Qvar RediHaler 80 mcg/actuation HFA aerosol breath activated 1 inh INHALATION BID PRN Patient Comments: INHALE ONE PUFF BY MOUTH TWICE A DAY NEEDED spironolactone 25 mg Tablet 25 mg PO DAILY Qty: 30 0RF clindamycin HCl [Cleocin HCl] 150 mg capsule 450 mg PO Q8H Qty: 42 0RF amlodipine 2.5 mg tablet 2.5 mg PO DAILY Patient Comments: TAKE ONE TABLET BY MOUTH EVERY DAY gabapentin 600 mg tablet 600 mg PO TID Patient Comments: TAKE ONE TABLET BY MOUTH THREE TIMES A DAY lisinopril 40 mg tablet 40 mg PO DAILY Patient Comments: TAKE ONE TABLET BY MOUTH EVERY DAY buprenorphine-naloxone [Suboxone] 8-2 mg film 1 film sublingual DAILY Patient Comments: PLACE ONE FILM UNDER THE TONGUE EVERY DAY tramadol 50 mg Tablet 50 mg PO Q6H PRN PRNQty: 20 0RF clonidine 0.1 mg/24 hr Patch Weekly 0.1 mg transdermal Q7D Qty: 4 0RF Rx Instructions: Started on 10/01/24. Renew as per PCP polyethylene glycol 3350 17 gram Powder In Packet 17 g PO DAILY Qty: 30 0RF docusate sodium [Colace] 100 mg capsule 100 mg PO BID Qty: 30 0RF Rx Instructions: Stop if you develop diarrhea. naloxone [Narcan] 4 mg/actuation spray,non-aerosol 1 spray intranasal Q3M Qty: 2 0RF Rx Instructions: spray 1 dose into ONE nostril; alternate nostrils w each dose until help arrives umeclidinium-vilanterol [Anoro Ellipta] 62.5-25 mcg/actuation blister with device 1 inh inhalation DAILY atorvastatin 20 mg tablet 20 mg PO DAILY Patient Comments: TAKE ONE TABLET BY MOUTH EVERY DAY FOR CHOLESTEROL; REPLACES PRAVASTATIN Bio-K plus 50 billion cell capsule,delayed release(DR/EC) 1 cap PO DAILY Trulicity 3 mg/0.5 mL pen injector 3 mg SUBCUT .Qweekly Patient Comments: INJECT 3MG UNDER THE SKIN ONCE A WEEK Discontinued acetaminophen [Tylenol] 325 mg tablet 1,000 mg PO Q6H PRN Discharge Instructions Instructions: Bradycardia Stand Alone Forms: Portal Information, Nursing Discharge Form Referrals: Evon Howard MD [Primary Care Provider, Medicine] Referral Note: Your PCP will reach out with a follow up, if you do not hear from them, please give them a call. Activity:: Activity as Tolerated Equipment/Supplies:: No Equipment Needed Diet:: As Tolerated Discharge Orders Discharge Orders: Discharge Order (Routine); Ordered 01/18/25 Ordered By: Chandler Melton Discharge Data Discharge Date/Time-TO BE ENTERED AT DEPARTURE: 01/18/25 15:25 DS: Summary Time Spent with Patient providing and/or coordinating discharge services: Less than 30 minutes Status at Discharge Functional status at discharge: uses cane/walker Overall status at discharge: patient is progressing back to baseline Mental Status: mental status grossly normal Speech and Movement: speech and movement normal Mood: congruent mood Affect: normal affect Quality:SDOH Health Related Social Needs: Health related social needs transpo insecurity material hardship education Health related social needs details Pt requires assistance from Vanessa his former for bathing, cooking and dressing. Health related social needs details: Pt requires assistance from Vanessa his former for bathing, cooking and dressing. Exam Psych Mental Status: mental status grossly normal Speech and Movement: speech and movement normal Mood: congruent mood Affect: normal affect DS: Data Vitals/I&O Vitals and I&O: Vital Signs Temperature 35.9 C L 01/18/25 11:30 Temperature Source Temporal Artery Scan 01/18/25 11:30 Pulse 77 01/18/25 11:30 Pulse 59 L 01/17/25 22:01 Respiratory Rate 16 01/18/25 11:30 Respiratory Effort Normal, Non-Labored 01/16/25 13:50 Respiratory Depth Shallow 01/16/25 13:50 Respiratory Pattern Normal 01/16/25 13:50 Blood Pressure 143/94 H 01/18/25 11:30 Blood Pressure Mean 110 01/18/25 11:30 Blood Pressure Position Supine 01/16/25 13:50 Pulse Oximetry 94 01/18/25 11:30 Oxygen Delivery Method Room Air 01/18/25 11:30 Oxygen Flow Rate 0 01/18/25 11:30 Pain Level 4 01/18/25 11:30 Comment back to bed for echo 01/17/25 09:37 Intake & Output 01/17/25 01/18/25 01/18/25 23:59 11:59 23:59 Intake Total 740 / 980 480 / 480 Output Total 1150 / 1725 1700 / 1700 Balance -410 / -745 -1220 / -1220 Weight 78.6 kg Intake: Oral 740 / 980 480 / 480 Output: Urine 1150 / 1725 1700 / 1700 Other: Urine Color Yellow Yellow Urine Appearance Clear Clear Urine Odor Normal Comment passed mixed with stool in bedside commode Stool Size Copious Stool Characteristics Soft Formed Data Completed and Pending Pending Labs at Discharge: 01/16/25 01/16/25 01/16/25 09:30 10:40 11:03 WBC 7.97 RBC 4.89 Hgb 13.4 L Hct 41.8 MCV 86 MCH 27.4 MCHC 32.1 RDW 14.6 H Plt Count 257 MPV 8.8 Immature Gran % 0.4 Neutrophils % 68.2 Lymphocytes % 19.2 Monocytes % 6.9 Eosinophils % 3.9 Basophils % 1.4 Nucleated RBC % 0.0 Absolute Neutrophils 5.44 Absolute Lymphocytes 1.53 Absolute Monocytes 0.55 Absolute Eosinophils 0.31 Absolute Basophils 0.11 PT 10.1 INR 1.0 VBG Lactate 1.7 Sodium 143 Potassium 4.4 Chloride 110 H Carbon Dioxide 25.4 Anion Gap 7.6 BUN 24 H Creatinine 1.27 H Est GFR (CKD-EPI 2020) 57.99 Glucose 155 H Hemoglobin A1c 6.6 H Calcium 9.5 Magnesium 2.0 Total Bilirubin 0.40 AST 12 ALT 8 L Alkaline Phosphatase 73 Troponin I 7 7 NT-Pro-B Natriuret Pep 202 Total Protein 7.9 Albumin 4.5 Lipase 34 TSH 0.97 Urine Color Yellow Urine Clarity Clear Urine pH 7.0 Ur Specific [place] 1.020 Urine Protein 100 H Urine Ketones Negative Urine Blood Negative Urine Nitrite Negative Urine Bilirubin Negative Urine Urobilinogen 0.2 Ur Leukocyte Esterase Negative Urine RBC 0-2 Urine WBC 0-2 Ur Epithelial Cells Negative Urine Crystals Negative Urine Bacteria Negative Urine Casts Negative Urine Mucus Negative Ur Culture Indicated? No Urine Glucose 250 H Urine Opiates Screen Negative Urine Methadone Screen Negative Ur Barbiturates Screen Negative Ur Tricyclics Screen Negative Ur Amphetamines Screen Negative U Benzodiazepines Scrn Negative Urine Cocaine Screen Positive A U Cannabinoids Screen Positive A Ethyl Alcohol < 3.0 01/16/25 01/17/25 01/18/25 12:21 05:30 06:42 WBC 7.88 6.11 RBC 4.65 4.61 Hgb 12.5 L 12.7 L Hct 39.5 L 38.8 L MCV 85 84 MCH 26.9 L 27.5 MCHC 31.6 L 32.7 RDW 14.7 H 14.2 H Plt Count 273 257 MPV 9.7 9.3 Immature Gran % 0.4 0.3 Neutrophils % 62.5 53.2 Lymphocytes % 24.0 28.8 Monocytes % 7.4 9.0 Eosinophils % 4.6 7.4 Basophils % 1.1 1.3 Nucleated RBC % 0.0 0.0 Absolute Neutrophils 4.93 3.25 Absolute Lymphocytes 1.89 1.76 Absolute Monocytes 0.58 0.55 Absolute Eosinophils 0.36 0.45 Absolute Basophils 0.09 0.08 PT INR VBG Lactate Sodium 144 139 Potassium 4.5 3.9 Chloride 109 H 107 Carbon Dioxide 25.7 25.2 Anion Gap 9.3 6.8 BUN 22 21 Creatinine 1.31 H 1.29 H Est GFR (CKD-EPI 2020) 55.95 56.95 Glucose 111 H 104 Hemoglobin A1c Calcium 8.7 9.1 Magnesium 1.9 Total Bilirubin 0.50 0.50 AST 10 11 ALT < 7 L < 7 L Alkaline Phosphatase 66 64 Troponin I Cancelled NT-Pro-B Natriuret Pep Total Protein 6.6 6.9 Albumin 3.8 3.8 Lipase TSH Urine Color Urine Clarity Urine pH Ur Specific [place] Urine Protein Urine Ketones Urine Blood Urine Nitrite Urine Bilirubin Urine Urobilinogen Ur Leukocyte Esterase Urine RBC Urine WBC Ur Epithelial Cells Urine Crystals Urine Bacteria Urine Casts Urine Mucus Ur Culture Indicated? Urine Glucose Urine Opiates Screen Urine Methadone Screen Ur Barbiturates Screen Ur Tricyclics Screen Ur Amphetamines Screen U Benzodiazepines Scrn Urine Cocaine Screen U Cannabinoids Screen Ethyl Alcohol PFSH All Active Problems (Updated 01/19/25 @ 00:03 by DIVINA CHANCE) Opioid use disorder, severe, in early remission, dependence (Chronic) CKD (chronic kidney disease) stage 2, GFR 60-89 ml/min (Chronic) Cocaine intoxication (Acute) Malaise and fatigue (Acute) Bradycardia with 31-40 beats per minute (Acute) Cellulitis of leg, right (Acute) Leg wound, right (Acute) Leg wound, left (Acute) Nicotine dependence (Acute) Hypertensive emergency (Acute) Hypertension (Chronic) Cellulitis of leg, right (Acute) Right middle lobe pneumonia (Acute) Hypoxia (Acute) Sepsis (Acute) Leukocytosis (Acute) Mild shortness of breath (Acute) Chest pain (Acute) Hypoxia (Acute) Recurrent apnea (Acute) Hypertensive emergency (Acute) Bilateral edema of lower extremity (Acute) Dyspnea (Acute) Right rotator cuff tear (Acute) Abnormal CT scan, kidney (Acute) Anxiety (Chronic) Medical non-compliance (Acute) Aragon esophagus (Acute) Opiate dependence (Chronic) managed on suboxone Medical History Palliative care encounter Obstructive sleep apnea Chronic venous insufficiency COPD (chronic obstructive pulmonary disease) Diabetic neuropathy Hx of deep venous thrombosis on Coumadin Diabetes mellitus Hypertension Cocaine abuse 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 S/P percutaneous endoscopic gastrostomy (PEG) tube placement History of ankle surgery S/P spinal surgery Family History Father No problems noted. Mother COPD (chronic obstructive pulmonary disease) Hypertension Diabetes Heart disease Sister Stroke Social History Smoking/Tobacco Use Status: Current every day Tobacco Type: cigarettes Years smoked: 44 Tobacco: How many years used: 40 Smoking risk assessment performed?: Yes Alcohol Intake: former Drug use: Daily Substance use type: marijuana and crack/cocaine Details: days since last use Caregiver/Support person: Yes Household members: friend(s) Housing: house Number of Children: 0 number of grandchildren: 1 current occupation: Disabled Pets and animals: Yes Pets and animals: cat(s) Current gender identity: male What type of physical activity do you participate in: none Do you feel safe at home: Yes Do you feel safe in your relationship?: Yes Additional Social history: Lives with ex- Vanessa, who is his caregiver. Lives in private home. Time Spent with Patient Time Spent with Patient: <45 minutes Time was spent: preparing to see the patient(eg.review tests), obtaining and/or reviewing separately otained hiistory, ordering medications,tests, procedures, referring, communicating with other health care services manager, indepentently interpreting results, counseling the patient and care coordination
--- NOTE | 2025-01-18 14:19 | CMDISCH_ITS ---
Date of service: 01/18/25 Time of Service: 14:19 LACE Index Scoring Tool Questions: Length of Stay (in days): 2 Was the patient admitted via the E.D.?: Yes Comorbidities: Cerebrovascular Disease, Diabetes w/o Complication, Chronic Pulmonary Disease and Liver or Renal Disease E.D. Visits: 6 Answers: Total Score: 14 Risk of Readmission: High Risk Care Management Discharge Plan Reason for Hospitalization: bradycardia Discharge Plan: Mio is being discharged home today with no new services. PT was recommended, but Mio declined this service. He will f/u with his PCP and continue per his plan of care. Mio will transport home via [facility] private vehicle. Patient/Family Education Needs: Review of discharge instructions, activity, limitations, and discuss Ask me 3. SDOH Health Related Social Needs: Health related social needs transpo insecurity materia l hardship education Health related social needs details Pt requires assist ance from Vanessa his former for bathing, cooking and dressing. Health related social needs details: Pt requires assistance from Vanessa his former for bathing, cooking and dressing.
== END 2025-01-18 15:25 | disposition home or self-care (01) | DRG 309 ==
LOC: ER 13:19 → ICU 13:28 → MS 01-17 23:38
PROVIDERS: Admitting Provider Family Medicine; Emergency Provider Emergency Medicine; PCP Family Medicine; Responsible Provider Family Medicine; Visit Provider Family Medicine
DX: R00.1 Bradycardia, unspecified (principal); F11.20 Opioid dependence, uncomplicated; I69.351 Hemiplegia and hemiparesis following cerebral infarction affecting right dominant side; N18.2 Chronic kidney disease, stage 2 (mild); I45.10 Unspecified right bundle-branch block; Z95.4 Presence of other heart-valve replacement; Z59.87 Material hardship due to limited financial resources, not elsewhere classified; R53.81 Other malaise; F17.210 Nicotine dependence, cigarettes, uncomplicated; I12.9 Hypertensive chronic kidney disease with stage 1 through stage 4 chronic kidney disease, or unspecified chronic kidney disease; F41.9 Anxiety disorder, unspecified; K22.70 Barrett's esophagus without dysplasia; G47.33 Obstructive sleep apnea (adult) (pediatric); I87.8 Other specified disorders of veins; J44.9 Chronic obstructive pulmonary disease, unspecified; E11.40 Type 2 diabetes mellitus with diabetic neuropathy, unspecified; Z79.85 Long-term (current) use of injectable non-insulin antidiabetic drugs; I69.320 Aphasia following cerebral infarction; F32.A Depression, unspecified; F12.90 Cannabis use, unspecified, uncomplicated; F14.129 Cocaine abuse with intoxication, unspecified; E11.22 Type 2 diabetes mellitus with diabetic chronic kidney disease; Z79.899 Other long term (current) drug therapy
CPT/HCPCS: 00123; 36415; 80053; 80307; 83690; 93005; 94640; 96361; 96374; 96375; 97110; 97162; 97530; 99285; 70450; 71045; 80320; 81003; 81015; 83036; 83605; 83735; 83880; 84443; 84484; 85025; 85610; 93010; 93306; 94664; 99222; 99233; 99238; J0461; J1644